=== PATIENT | male | born 1965 | race Caucasian/White ===

== ENCOUNTER 2016-07-02 22:16 | Emergency (ER) | payer BC, MEDICARE ==
[2016-07-02 22:23] VITALS: RESP 18
--- NOTE | 2016-07-02 23:12 | ED ---
General Adult HPI - General Chief complaint: Extremity Problem,Nontraumatic Stated complaint: Post surgical arm bleed Time Seen by Provider: 07/02/16 22:40 Source: patient Mode of arrival: ambulatory Limitations: no limitations - History of Present Illness Initial comments: Patient is a pleasant 51-year-old male presenting to the emergency Department with bleeding. Patient had a recent cellulitis. Patient had recurrent abscess and went to orthopedics today. Patient had surgical excision of the region. Patient has had bleeding today. Surgeon was Dr. Contreras. Patient has noticed bleeding coming from his arm bandage. Otherwise no increase in pain. No fevers. - Related Data Home Medications Medication Instructions Recorded Confirmed Furosemide [Lasix] 20 mg PO DAILY PRN 06/23/13 07/02/16 Losartan/Hydrochlorothiazide 1 tab PO DAILY 06/23/13 07/02/16 [Losartan-Hctz 100-25 mg Tab] Metoprolol Tartrate [Lopressor] 100 mg PO BID 06/23/13 07/02/16 cloNIDine HCL [Catapres] 0.1 mg PO BID 06/23/13 07/02/16 metFORMIN HCL [Glucophage] 1,000 mg PO BID 06/23/13 07/02/16 Atorvastatin [Lipitor] 80 mg PO HS 08/14/14 07/02/16 Insulin Aspart [NovoLOG] 8 - 10 units SQ BID@0800,1200 08/14/14 07/02/16 Insulin Glargine [Lantus] 27 unit SQ HS 08/14/14 07/02/16 Insulin Aspart [NovoLOG] 15 units SQ AC-SUPPER 08/17/14 07/02/16 Insulin Aspart [NovoLOG] See Protocol SQ AC-TID 08/17/14 07/02/16 Nitroglycerin Sl Tabs [Nitrostat] 0.4 mg SUBLINGUAL Q5M PRN 09/07/14 07/02/16 Aspirin 325 mg PO DAILY 07/02/16 07/02/16 Ergocalciferol [Vitamin D2] 50,000 unit PO Q14D 07/02/16 07/02/16 Previous Rx's Medication Instructions Recorded Clopidogrel [Plavix] 75 mg PO DAILY #30 tab 06/25/13 Allergies Allergy/AdvReac Type Severity Reaction Status Date / Time vancomycin Allergy Rash/Hives Verified 05/11/17 23:17 Review of Systems ROS Statement: Those systems with pertinent positive or pertinent negative responses have been documented in the HPI. ROS Other: All systems not noted in ROS Statement are negative. Constitutional: Denies: fever Eyes: Denies: eye pain ENT: Denies: ear pain Respiratory: Denies: cough Cardiovascular: Denies: chest pain Endocrine: Denies: fatigue Gastrointestinal: Denies: abdominal pain Genitourinary: Denies: dysuria Musculoskeletal: Denies: back pain Skin: Denies: rash Neurological: Denies: headache Past Medical History Past Medical History: Asthma, Coronary Artery Disease (CAD), Chest Pain / Angina , Diabetes Mellitus, Deep Vein Thrombosis (DVT), Hyperlipidemia, Hypertension, Myocardial Infarction ([place]), Sleep Apnea/CPAP/BIPAP Additional Past Medical History / Comment(s): Bipap at 17, IDDM type II, DVT L leg, cellulitis L leg 2012, back pain. Last Myocardial Infarction Date:: 06/23/13 History of Any Multi-Drug Resistant Organisms: MRSA Date of last positivie culture/infection: 08/2014 MDRO Source:: abdomin around naval Past Surgical History: Back Surgery, Coronary Bypass/CABG, Heart Catheterization , Heart Catheterization With Stent, Hernia Repair Additional Past Surgical History / Comment(s): 08/28/15 PCI with stent to ramus. Other surgical hx: Spinal fusion L4-L5, fasciotomy left thigh,CABG 2007- 6 VESSELS, PCI with 3 previous stents, bilateral inguinal hernia repairs. Past Anesthesia/Blood Transfusion Reactions: No Reported Reaction Date of Last Stent Placement:: 08/28/15 Past Psychological History: No Psychological Hx Reported Additional Psychological History / Comment(s): Pt is independent. He is currently living with his parents. Smoking Status: Never smoker Past Alcohol Use History: None Reported Past Drug Use History: None Reported - Past Family History Mother Family Medical History: Diabetes Mellitus Additional Family Medical History / Comment(s): Mother is 83 yrs old. Father Family Medical History: Coronary Artery Disease (CAD), Myocardial Infarction ([place] ) Additional Family Medical History / Comment(s): Father of a [place] at the age of 60 yrs. General Exam Limitations: no limitations General appearance: alert, in no apparent distress Head exam: Present: atraumatic Eye exam: Present: normal appearance, PERRL ENT exam: Present: normal oropharynx Neck exam: Present: normal inspection Respiratory exam: Present: normal lung sounds bilaterally Cardiovascular Exam: Present: regular rate, normal rhythm GI/Abdominal exam: Present: soft. Absent: tenderness Extremities exam: Present: other (Left arm with horizontal incision that is somewhat open in the midline. There is active bleeding. Bandage has been bloodsoaked.) Neurological exam: Present: alert Psychiatric exam: Present: normal affect, normal mood Skin exam: Absent: rash Course Vital Signs 07/02/16 22:19 Temperature 98.0 F Pulse Rate 68 Respiratory 18 Rate Blood Pressure 190/98 O2 Sat by Pulse 98 Oximetry - Reevaluation(s) Reevaluation #1: 07/02/16 23:34 Still no bleeding. Patient does have follow-up appointment tomorrow. Patient advised to return bleeding returns. Procedures - Laceration Laceration #1 Consent Obtained: verbal consent Time Out Performed: Yes Indication: other ((Postsurgical wound with active bleeding) Size (cm): 4 Description: linear Depth: simple, single layer Anesthetic Used: lidocaine 1% Anesthesia Technique: local infiltration Pre-repair: wound explored (Area cleansed with Betadine) Type of Sutures: nylon Size of Sutures: 5-0 Number of Sutures: 3 Technique: simple, interrupted Patient Tolerated Procedure: well, no complications, other (Bleeding has decreased to a minimal ooze. Area was bandaged.) Disposition Clinical Impression: Postoperative bleeding from incision Disposition: HOME SELF-CARE Condition: Stable Instructions: Postoperative Bleeding (ED) Additional Instructions: Please follow-up with Dr. Contreras first thing in the morning tomorrow. Return for bleeding, weakness or lightheadedness, increased pain, hand problems, worsening symptoms or other concerns. Referrals: Kelly Montesinos MD [Primary Care Provider] - 1-2 days Yobani Contreras DO [Doctor of Osteopathic Medicine] - 1-2 days Time of Disposition: 23:35
[2016-07-02 23:48] VITALS: BP 144/75; PULSE 88; TEMP 97
== END 2016-07-02 23:47 | disposition home or self-care (01) ==
LOC: EC 22:16
DX: M96.831 Postprocedural hemorrhage of a musculoskeletal structure following other procedure (principal); E78.5 Hyperlipidemia, unspecified; I10 Essential (primary) hypertension; E11.9 Type 2 diabetes mellitus without complications; I25.2 Old myocardial infarction; Z79.4 Long term (current) use of insulin; Z79.82 Long term (current) use of aspirin; Z79.84 Long term (current) use of oral hypoglycemic drugs; Z79.899 Other long term (current) drug therapy; Z88.1 Allergy status to other antibiotic agents; Z87.39 Personal history of other diseases of the musculoskeletal system and connective tissue; Z86.79 Personal history of other diseases of the circulatory system; Y83.8 Other surgical procedures as the cause of abnormal reaction of the patient, or of later complication, without mention of misadventure at the time of the procedure
CPT/HCPCS: 12002; 99282

== ENCOUNTER 2016-07-03 04:53 | Inpatient (IN) | payer MEDICARE ==
--- NOTE | 2016-07-03 05:40 | ED ---
General Adult HPI - General Chief complaint: Skin/Abscess/Foreign Body Stated complaint: post surgery bleeding Time Seen by Provider: 07/03/16 05:10 Source: patient, RN notes reviewed Mode of arrival: ambulatory Limitations: no limitations - History of Present Illness Initial comments: Patient is a pleasant 51-year-old male returning to the emergency department complaining of some continued bleeding and pain of his left distal forearm. Patient did have a recent infection. Patient yesterday had surgical procedure done by Dr. Yobani doherty. This was secondary to continued abscess. Patient had removal of what sounds to be a cystlike structure. Patient came to the emergency department last night for bleeding. Patient did have 3 sutures placed with hemostasis. Patient has had increase discomfort since that time. Patient states it is hard to open his hand. Patient does admit to having some paresthesias. Patient states the discomfort is radiating up the forearm past the elbow. - Related Data Home Medications Medication Instructions Recorded Confirmed Furosemide [Lasix] 20 mg PO DAILY PRN 06/23/13 07/03/16 Losartan/Hydrochlorothiazide 1 tab PO DAILY 06/23/13 07/03/16 [Losartan-Hctz 100-25 mg Tab] Metoprolol Tartrate [Lopressor] 100 mg PO BID 06/23/13 07/03/16 cloNIDine HCL [Catapres] 0.1 mg PO BID 06/23/13 07/03/16 metFORMIN HCL [Glucophage] 1,000 mg PO BID 06/23/13 07/03/16 Atorvastatin [Lipitor] 80 mg PO HS 08/14/14 07/03/16 Insulin Aspart [NovoLOG] 8 - 10 units SQ BID@0800,1200 08/14/14 07/03/16 Insulin Glargine [Lantus] 27 unit SQ HS 08/14/14 07/03/16 Insulin Aspart [NovoLOG] 15 units SQ AC-SUPPER 08/17/14 07/03/16 Insulin Aspart [NovoLOG] See Protocol SQ AC-TID 08/17/14 07/03/16 Nitroglycerin Sl Tabs [Nitrostat] 0.4 mg SUBLINGUAL Q5M PRN 09/07/14 07/03/16 Aspirin 325 mg PO DAILY 07/02/16 07/03/16 Ergocalciferol [Vitamin D2] 50,000 unit PO Q14D 07/02/16 07/03/16 Previous Rx's Medication Instructions Recorded Clopidogrel [Plavix] 75 mg PO DAILY #30 tab 06/25/13 Allergies Allergy/AdvReac Type Severity Reaction Status Date / Time vancomycin Allergy Rash/Hives Verified 07/03/16 04:58 Review of Systems ROS Statement: Those systems with pertinent positive or pertinent negative responses have been documented in the HPI. ROS Other: All systems not noted in ROS Statement are negative. Constitutional: Denies: fever Eyes: Denies: eye pain ENT: Denies: ear pain Respiratory: Denies: cough Cardiovascular: Denies: chest pain Endocrine: Denies: fatigue Gastrointestinal: Denies: abdominal pain Genitourinary: Denies: dysuria Musculoskeletal: Denies: back pain Skin: Denies: rash Neurological: Denies: weakness Past Medical History Past Medical History: Asthma, Coronary Artery Disease (CAD), Chest Pain / Angina , Diabetes Mellitus, Deep Vein Thrombosis (DVT), Hyperlipidemia, Hypertension, Myocardial Infarction ([place]), Sleep Apnea/CPAP/BIPAP Additional Past Medical History / Comment(s): Bipap at 17, IDDM type II, DVT L leg, cellulitis L leg 2012, back pain. Last Myocardial Infarction Date:: 06/23/13 History of Any Multi-Drug Resistant Organisms: MRSA Date of last positivie culture/infection: 08/2014 MDRO Source:: abdomin around naval Past Surgical History: Back Surgery, Coronary Bypass/CABG, Heart Catheterization , Heart Catheterization With Stent, Hernia Repair Additional Past Surgical History / Comment(s): 08/28/15 PCI with stent to ramus. Other surgical hx: Spinal fusion L4-L5, fasciotomy left thigh,CABG 2007- [facility]SE[facility], PCI with 3 previous stents, bilateral inguinal hernia repairs. Past Anesthesia/Blood Transfusion Reactions: No Reported Reaction Date of Last Stent Placement:: 08/28/15 Past Psychological History: No Psychological Hx Reported Additional Psychological History / Comment(s): Pt is independent. He is currently living with his parents. Smoking Status: Never smoker Past Alcohol Use History: None Reported Past Drug Use History: None Reported - Past Family History Mother Family Medical History: Diabetes Mellitus Additional Family Medical History / Comment(s): Mother is 83 yrs old. Father Family Medical History: Coronary Artery Disease (CAD), Myocardial Infarction ([place] ) Additional Family Medical History / Comment(s): Father of a [place] at the age of 60 yrs. General Exam Limitations: no limitations General appearance: alert Head exam: Present: atraumatic Eye exam: Present: normal appearance, PERRL ENT exam: Present: normal oropharynx Neck exam: Present: normal inspection Respiratory exam: Present: normal lung sounds bilaterally Cardiovascular Exam: Present: regular rate, normal rhythm, other (Difficult to palpate left radial pulse secondary to swelling) GI/Abdominal exam: Present: soft. Absent: tenderness Extremities exam: Present: other (Left distal forearm with horizontal incision, approximately 4 cm. Sutures are in place with minimal oozing. There is also a vertical incision with trace amount of oozing. Pain with extension. Difficulty opening the hand/extension of fingers. Sensation is intact. No pallor. There is some swelling over the surgical site that is increased from previous evaluation.) Neurological exam: Present: alert Psychiatric exam: Present: normal affect, normal mood Skin exam: Present: other (Incisions as described above. In addition left forearm also has a well-healed incision from previous vessel harvesting.). Absent: rash, pallor Course Vital Signs 07/03/16 04:56 Temperature 98.0 F Pulse Rate 69 Respiratory 18 Rate Blood Pressure 214/100 O2 Sat by Pulse 98 Oximetry - Reevaluation(s) Reevaluation #1: 07/03/16 05:36 Orthopedics has been paged. Concern is present for symptoms that could be related to early compartment syndrome that were not previously present. Patient now has paresthesias and pain and tenseness of the surgical site. There is no pallor. Sensation is intact. No weakness. 07/03/16 05:40 3 sutures placed earlier were removed. 07/03/16 05:43 Case was discussed in detail with Dr. Shaver who will come evaluate the patient. Patient updated. 07/03/16 06:29 Patient was seen by Dr. Shaver who will take patient to the OR. Medical Decision Making - Lab Data Result diagrams: 07/03/16 05:55 07/03/16 05:55 Lab Results 07/03/16 07/03/16 07/03/16 Range/Units 05:55 05:55 05:55 WBC 5.9 (3.8-10.6) k/uL RBC 4.84 (4.30-5.90) m/uL Hgb 13.7 (13.0-17.5) gm/dL Hct 39.5 (39.0-53.0) % MCV 81.6 (80.0-100.0) fL MCH 28.4 (25.0-35.0) pg MCHC 34.8 (31.0-37.0) g/dL RDW 13.5 (11.5-15.5) % Plt Count 198 (150-450) k/uL Neutrophils % 65 % Lymphocytes % 19 % Monocytes % 10 % Eosinophils % 4 % Basophils % 1 % Neutrophils # 3.8 (1.3-7.7) k/uL Lymphocytes # 1.1 (1.0-4.8) k/uL Monocytes # 0.6 (0-1.0) k/uL Eosinophils # 0.2 (0-0.7) k/uL Basophils # 0.0 (0-0.2) k/uL PT 10.5 (9.0-12.0) sec INR 1.0 (<1.1) APTT 21.0 L (22.0-30.0) sec Sodium 138 (137-145) mmol/L Potassium 3.9 (3.5-5.1) mmol/L Chloride 99 (98-107) mmol/L Carbon Dioxide 27 (22-30) mmol/L Anion Gap 12 mmol/L BUN 18 (9-20) mg/dL Creatinine 0.88 (0.66-1.25) mg/dL Est GFR (MDRD) Af Amer >60 (>60 ml/min/1.73 sqM) Est GFR (MDRD) Non-Af >60 (>60 ml/min/1.73 sqM) Glucose 335 H (74-99) mg/dL Calcium 9.2 (8.4-10.2) mg/dL Total Bilirubin 0.6 (0.2-1.3) mg/dL AST 24 (17-59) U/L ALT 53 (21-72) U/L Alkaline Phosphatase 85 (38-126) U/L Total Protein 6.5 (6.3-8.2) g/dL Albumin 3.9 (3.5-5.0) g/dL Critical Care Time Critical Care Time: Yes Total Critical Care Time: 31 Disposition Clinical Impression: Postoperative compartment syndrome Disposition: ADMITTED IP TO THIS HOSP Condition: Serious Time of Disposition: 06:31
[2016-07-03] MEDS ORDERED: MORPHINE SULFATE 4 MG/ML SYRINGE IV STA (05:43)
[2016-07-03 06:00] LABS: Basophils % (A) 1 %; CH 29.7; CHCM 36.6; Eosinophils # (A) 0.2 k/uL (0-0.7); Eosinophils % (A) 4 %; HCT 39.5 % (39.0-53.0); HDW 3.21; HGB 13.7 gm/dL (13.0-17.5); Luc # (Auto) 0.12; Luc % (Auto) 2; Lymphocytes # (A) 1.1 k/uL (1.0-4.8); Lymphocytes % (A) 19 %; MCH 28.4 pg (25.0-35.0); MCHC 34.8 g/dL (31.0-37.0); MCV 81.6 fL (80.0-100.0); Mean Platelet Volume 7.6; Monocytes # (A) 0.6 k/uL (0-1.0); Monocytes % (A) 10 %; Neutrophils # (A) 3.8 k/uL (1.3-7.7); Neutrophils % (A) 65 %; RBC 4.84 m/uL (4.30-5.90); RDW 13.5 % (11.5-15.5); WBC 5.9 k/uL (3.8-10.6); WBC (Perox) 5.67
[2016-07-03 06:10] LABS: Prothrombin Time 10.5 sec (9.0-12.0)
[2016-07-03 06:12] LABS: ALT 53 U/L (21-72); AST 24 U/L (17-59); Alkaline Phosphatase 85 U/L (38-126); Anion Gap 12 mmol/L; Blood Urea Nitrogen 18 mg/dL (9-20); Calcium 9.2 mg/dL (8.4-10.2); Carbon Dioxide 27 mmol/L (22-30); Chloride 99 mmol/L (98-107); Glucose 335 mg/dL (74-99); Non-African American GFR(MDRD) >60 (>60 ml/min/1.73 sqM); Potassium 3.9 mmol/L (3.5-5.1); Sodium 138 mmol/L (137-145); Total Bilirubin 0.6 mg/dL (0.2-1.3); Total Protein 6.5 g/dL (6.3-8.2)
--- NOTE | 2016-07-03 06:43 | P.HPOR ---
History of Present Illness H&P Date: 07/03/16 The patient is a 51-year-old male with multiple medical problems including diabetes and coronary artery disease who presents to the ER with severe, excruciating pain in his left forearm. The patient has been having problems with his arm for the last week or so. He was initially managed at [facility] and was transferred to see my hand partner Dr. Maksim Contreras ultimately performed an incision and drainage of a left volar forearm abscess yesterday. The patient presented to the emergency department last night with bleeding from his forearm. Emergency department provided local wound care and placed several stitches into the forearm. The patient went home but had increasing pain, swelling and difficulty moving his fingers so presented to the ER again this morning. At the time of my evaluation is complaining of 10 out of 10 pain. He says any movement of his fingers causes pain. He is right-hand dominant. He denies smoking or alcohol use. Note the patient has had compartment syndrome in his leg and has had prior fasciotomies performed of his leg. Past Medical History Past Medical History: Asthma, Coronary Artery Disease (CAD), Chest Pain / Angina , Diabetes Mellitus, Deep Vein Thrombosis (DVT), Hyperlipidemia, Hypertension, Myocardial Infarction ([place]), Sleep Apnea/CPAP/BIPAP Additional Past Medical History / Comment(s): Bipap at 17, IDDM type II, DVT L leg, cellulitis L leg 2012, back pain. Last Myocardial Infarction Date:: 06/23/13 History of Any Multi-Drug Resistant Organisms: MRSA Date of last positivie culture/infection: 08/2014 MDRO Source:: abdomin around naval Past Surgical History: Back Surgery, Coronary Bypass/CABG, Heart Catheterization , Heart Catheterization With Stent, Hernia Repair Additional Past Surgical History / Comment(s): 08/28/15 PCI with stent to ramus. Other surgical hx: Spinal fusion L4-L5, fasciotomy left thigh,CABG 2007- [facility]ESSELS, PCI with 3 previous stents, bilateral inguinal hernia repairs. Past Anesthesia/Blood Transfusion Reactions: No Reported Reaction Date of Last Stent Placement:: 08/28/15 Past Psychological History: No Psychological Hx Reported Additional Psychological History / Comment(s): Pt is independent. He is currently living with his parents. Smoking Status: Never smoker Past Alcohol Use History: None Reported Past Drug Use History: None Reported - Past Family History Mother Family Medical History: Diabetes Mellitus Additional Family Medical History / Comment(s): Mother is 83 yrs old. Father Family Medical History: Coronary Artery Disease (CAD), Myocardial Infarction ([place] ) Additional Family Medical History / Comment(s): Father of a [place] at the age of 60 yrs. Medications and Allergies Home Medications Medication Instructions Recorded Confirmed Type Furosemide [Lasix] 20 mg PO DAILY PRN 06/23/13 07/03/16 History Losartan/Hydrochlorothiazide 1 tab PO DAILY 06/23/13 07/03/16 History [Losartan-Hctz 100-25 mg Tab] Metoprolol Tartrate [Lopressor] 100 mg PO BID 06/23/13 07/03/16 History cloNIDine HCL [Catapres] 0.1 mg PO BID 06/23/13 07/03/16 History metFORMIN HCL [Glucophage] 1,000 mg PO BID 06/23/13 07/03/16 History Atorvastatin [Lipitor] 80 mg PO HS 08/14/14 07/03/16 History Insulin Aspart [NovoLOG] 8 - 10 units SQ BID@0800,1200 08/14/14 07/03/16 History Insulin Glargine [Lantus] 27 unit SQ HS 08/14/14 07/03/16 History Insulin Aspart [NovoLOG] 15 units SQ AC-SUPPER 08/17/14 07/03/16 History Insulin Aspart [NovoLOG] See Protocol SQ AC-TID 08/17/14 07/03/16 History Nitroglycerin Sl Tabs [Nitrostat] 0.4 mg SUBLINGUAL Q5M PRN 09/07/14 07/03/16 History Aspirin 325 mg PO DAILY 07/02/16 07/03/16 History Ergocalciferol [Vitamin D2] 50,000 unit PO Q14D 07/02/16 07/03/16 History Allergies Allergy/AdvReac Type Severity Reaction Status Date / Time vancomycin Allergy Rash/Hives Verified 07/03/16 04:58 Physical Examination On exam the patient is in severe distress secondary to pain. His head is normocephalic and atraumatic. He demonstrates slightly labored breathing secondary to pain. A focused examination of the patient's left forearm was conducted. On inspection of the patient's left arm his forearm is swollen and he holds his fingers in a position of slight flexion. There is a healed scar from a prior vein graft over the volar aspect of his forearm, distally there is a T-shaped incision with several nylon sutures in place over the distal forearm. The longitudinal limb of the incision was made over the patient's prior vein graft scar. There is pain with passive range of motion of the fingers. The patient's volar forearm is firm and hard to the touch. The dorsal forearm and mobile wad are soft. There is decreased sensation to touch in the distribution of the median nerve. Sensation is intact to light touch in the distribution of the ulnar nerve and radial nerve. The fingers have brisk capillary refill. While the patient was still in the emergency department I removed several of the nylon stitches. Immediately upon removing the nylon stitches muscle herniated through the wound and a large clot was expelled from the wound and due to the pressure build up went fci across the room. Results - Labs Labs: Abnormal Lab Results - Last 24 Hours (Table) 07/03/16 07/03/16 Range/Units 05:55 05:55 APTT 21.0 L (22.0-30.0) sec Glucose 335 H (74-99) mg/dL H & H 07/03/16 Range/Units 05:55 Hgb 13.7 (13.0-17.5) gm/dL Hct 39.5 (39.0-53.0) % Coagulation 07/03/16 Range/Units 05:55 INR 1.0 (<1.1) Result Diagrams: 07/03/16 05:55 07/03/16 05:55 Assessment and Plan (1) Postoperative compartment syndrome Status: Acute (2) Postoperative bleeding from incision Status: Acute Plan: Clinically the patient has signs and symptoms of a compartment syndrome in his left forearm. He is in excruciating pain after procedure yesterday. His forearm is firm and hard. He has pain with any attempted range of motion of his fingers. My recommendation was to perform a fasciotomy and exploration of his wound. I discussed with the patient his risk for having a complication which is higher because of his multiple medical problems. Discussed discussed include but are not limited to risk of anesthesia, risk of delayed wound healing , risk of damage to blood vessels or nerves, risk of chronic infection, risk of chronic pain, risk of limited use of left arm or hand, and possibly loss of limb. The patient voiced his understanding of this. We also discussed the possibility of a vascular injury with bleeding into his forearm from his prior vein graft harvest. He understands the possible consequences of a having a vascular injury. If there is a vascular injury I will consult vascular surgery. I will perform a fasciotomy of the patient's forearm and then defer to my hand partner Dr. Maksim Contreras for definitive treatment. We will take the patient to the waiting room for emergent fasciotomy and decompression of his volar forearm.
[2016-07-03 07:01] LABS: Glucose,Whole Blood 283 mg/dL (75-99)
[2016-07-03] MEDS ORDERED: IV FLUID CONTINUATION 900 ML IV ONE (07:04)
[2016-07-03] MEDS ORDERED: fentaNYL (PF) 50 MCG/ML 2 ML AMP ONE (07:28)
[2016-07-03] MEDS ORDERED: MIDAZOLAM 2 MG/2 ML VIAL ONE (07:28)
[2016-07-03] MEDS ORDERED: HYDROmorphone (PF) 1 MG/ML ONE (07:28)
[2016-07-03] MEDS ORDERED: ePHEDrine 50 MG/ML 1 ML AMP ONE (07:28)
[2016-07-03] MEDS ORDERED: SUCCINYLCHOLINE CHLORIDE 100 MG/5 ML SYR IV ONE (07:28)
[2016-07-03] MEDS ORDERED: PROPOFOL 10 MG/ML 20 ML VIAL IV ONE (07:28)
[2016-07-03] MEDS ORDERED: LIDOCAINE 1% INJ 10MG/ML (20 ML MDV) ONE (07:28)
--- NOTE | 2016-07-03 08:38 | P.OP ---
Date of Procedure: 07/03/16 Preoperative Diagnosis: 1. Left volar forearm compartment syndrome 2. Diabetes Mellitus type 2 3. Coronary artery disease 4. Prior left volar forearm vein harvest Postoperative Diagnosis: Same Procedure(s) Performed: 1. Left volar forearm compartment fasciotomy 2. Application of vacuum assisted closure device left forearm (wound VAC) Anesthesia: CHERIE Surgeon: Lakhwinder Shaver Machine Umbrella Tipper #1: Chester Montano Estimated Blood Loss (ml): 50 IV fluids (ml): 800 Pathology: none sent Condition: stable Disposition: PACU Indications for Procedure: A shunt is a 51-year-old male with multiple medical problems including diabetes , coronary artery disease prior heart stents currently on Plavix who is been having problems with his left forearm for the last several weeks. The patient was initially managed at [facility]. He was transferred to my partner Dr. Maksim Contreras who performed incision and drainage of a left volar forearm abscess yesterday. He was discharged home as an outpatient. The patient presented to the ER last night with significant bleeding from his left forearm. The emergency department physician closed the wound and sent the patient home without calling our office. The patient returned to the ER this morning with significantly increased pain and swelling in his volar forearm. I was on-call and consulted by the ER. On my exam in the emergency department the patient had tense volar forearm compartments about the distal forearm. He had pain out of proportion. He had pain with passive range of motion of his fingers. The sutures were removed and a large amount of blood clot and muscle herniated to the wound. Clinically the patient had findings concerning for compartment syndrome so I brought the patient urgently to the operating room for a volar forearm compartment fasciotomy. We discussed the potential risks and complication of surgery including but not limited to risk of anesthesia, risk of superficial infection, risk of deep infection, risk of delayed wound healing , risk of damage to underlying blood vessels or nerves, risk of chronic pain, risk of chronic swelling, risk of difficulty using the hand, risk of need for further surgery, and possibly loss of his limb. The patient voiced his understanding of these complications and understands that he is at a higher risk of having a Location due to his multiple medical problems. Operative Findings: There was a large hematoma within the volar compartment of the distal forearm. Upon evacuation of the hematoma the deep fascia was released and all the muscle compartments in the volar forearm, dorsal forearm, and hand appeared soft. Description of Procedure: A she was identified in preoperative holding and the correct left arm was marked with my initials. I again reviewed the consent form with the patient and answered all of his questions. He was brought back to the operating room. A general anesthetic was administered by anesthesia. His arm was placed on a arm table. A tourniquet was applied to the proximal aspect of the left arm but not inflated throughout the whole case. Due to the patient previously having vascular procedures on his forearm I consulted Dr. Montano intraoperatively. Prior to the patient's arm Dr. Montano was able to obtain Doppler signals for both the radial and ulnar artery. He had low concern for vascular injury. The patient's left arm was then prepped and draped in the standard sterile fashion. Prior to starting surgery timeout was performed identifying the correct patient, operative extremity, and procedure. I outlined the prior scar over the volar forearm with a marking pen on the volar wrist crease to the elbow. A skin incision was made over the previously made volar scar with a 15 blade scalpel and dissection was carried down carefully through the subcutaneous tissue. Immediately upon cutting through the superficial fascia a large hematoma was evacuated. The deep fascia was then identified and incised longitudinally in line with the skin incision. Immediately upon releasing the deep fascia the deep musculature herniated through the fasciotomy. All constricting bands of fascia were released distally and proximally. The median nerve was identified and was in continuity. After completely releasing the volar fascia there were no areas of constriction. On exam the volar forearm, dorsal forearm, mobile wad and hand compartments were all soft. There was no obvious bleeding vessels. Dr. Montano who had been present up to this point agreed that there was no major vascular injury and that an adequate fasciotomy had been performed. The wound was then copiously irrigated with 1 L of sterile saline. A VAC dressing sponge was cut over the wound. A sterile rubber band was used to bring the skin edges together over the VAC sponge in a Byron sandal type configuration. Strips of Ioban were placed around the incision and then over the VAC. The wound VAC was then attached and suction was set up. There were no leaks. The forearm again felt very soft before leaving the OR. The drapes were taken down and a dressing consisting of loosely applied web roll and an Del wrap was applied. The patient was extubated and brought to PACU in stable condition. PLAN: She will be admitted for observation. He will need repeat I&D and closure of his wound in the next 1-2 days.
[2016-07-03] MEDS ORDERED: HYDROmorphone 1 MG/ML 1 ML SYRINGE IVP ONE ×3 (08:47→09:09)
[2016-07-03] MEDS ORDERED: TEMAZEPAM 15 MG CAP PO PRN (08:50)
[2016-07-03] MEDS ORDERED: HYDROcodone/APAP 5-325MG 1 EACH TAB PO PRN (08:50)
[2016-07-03] MEDS ORDERED: diphenhydrAMINE 25 MG CAP PO PRN (08:50)
[2016-07-03] MEDS ORDERED: HYDROmorphone 1 MG/ML 1 ML SYRINGE IVP PRN ×2 (08:50)
[2016-07-03] MEDS ORDERED: hydrOXYzine PAMOATE 25 MG CAP PO PRN (08:50)
[2016-07-03 08:54] LABS: Glucose,Whole Blood 251 mg/dL (75-99)
[2016-07-03] MEDS ORDERED: LACTATED RINGERS 1,000 ML IV ONE (09:33)
[2016-07-03] MEDS ORDERED: IV VANCOMYCIN PER PHARMACY 1 EACH MISC MISCELLANE PRN (10:41)
[2016-07-03] MEDS ORDERED: FUROSEMIDE 20 MG TAB PO PRN (11:16)
[2016-07-03] MEDS ORDERED: NITROGLYCERIN SL TABS 0.4 MG TAB SUBLINGUAL PRN (11:16)
[2016-07-03] MEDS: LACTATED RINGERS 1,000 ML IV SCH ×2 (11:24→19:00)
[2016-07-03 11:48] LABS: Glucose,Whole Blood 249 mg/dL (75-99)
[2016-07-03] MEDS: METOPROLOL TARTRATE 50 MG TAB PO SCH ×2 (12:00→21:28)
[2016-07-03] MEDS: CLOPIDOGREL 75 MG TAB PO SCH (12:00)
[2016-07-03] MEDS: metFORMIN 500 MG TAB PO SCH ×2 (12:00→18:05)
[2016-07-03] MEDS: LOSARTAN-HCTZ 50-12.5 MG 1 EACH TAB PO SCH (12:00)
[2016-07-03] MEDS: ASPIRIN 325 MG TAB PO SCH (12:00)
[2016-07-03] MEDS: cloNIDine HCL 0.1 MG TAB PO SCH ×2 (12:00→21:28)
[2016-07-03] MEDS: INSULIN LISPRO (humaLOG) 300 UNIT/3 ML VIAL SQ SCH ×4 (12:35→21:29)
--- NOTE | 2016-07-03 12:57 | P.CONS ---
History of Present Illness - Reason for Consult Consult date: 07/03/16 Medical management - History of Present Illness This is a 51-year-old patient of Dr. Montesinos with past medical history for coronary artery disease status post 6 vessel CABG in 2006 with MAE to LAD, saphenous venous graft to the PDA, saphenous venous graft to the obtuse marginal one, radial artery to the obtuse marginal branch 2 and saphenous venous graft to the obtuse marginal 3 followed by heart catheterization with PCI and stent of the saphenous venous graft to the RCA in 2015 at which time he presented with non-ST elevated myocardial infarction. History of diabetes mellitus2 with diabetic polyneuropathy, hyperlipidemia, hypertension, hypertensive cardiovascular disease with left ventricular hypertrophy, asthma, sleep apnea on CPAP, chronic low back pain, chronic kidney disease, DVT in the past. Patient had injury to his left wrist area was not sure what actually happened to it. He went to Dr. Montesinos's office and saw the nurse practitioner and he was sent to [facility] for evaluation and IV antibiotics. Patient underwent I&D in the emergency center and was then sent to Dr. Maksim Contreras. He underwent an incision and drainage of the left volar forearm abscess on July 02. During the night, patient states he was bleeding significantly and blood through his stress seen and came to [facility] emergency center for evaluation. The emergency department did local wound care and put several stitches in the forearm but the patient went home and developed increasing pain swelling and could not move his fingers and came back to the emergency center in the morning. His pain was a 10 out of 10. He had difficulty moving his fingers. He was diagnosed with post compartment syndrome and was taken to the OR by Dr. Shaver for a left volar forearm compartment fasciotomy and wound VAC was placed. Patient is now on the MedSurg floor and pain is currently controlled. Wound culture from [facility] was positive for MSSA. Consult placed with Dr. Jeffrey for antibiotic management. Review of Systems All systems: negative Constitutional: Denies chills, Denies fever Eyes: denies blurred vision, denies pain Ears, nose, mouth and throat: Denies headache, Denies sore throat Cardiovascular: Denies chest pain, Denies shortness of breath Respiratory: Denies cough Gastrointestinal: Denies abdominal pain, Denies diarrhea, Denies nausea, Denies vomiting Musculoskeletal: Denies myalgias Musculoskeletal: left: hand pain, hand stiffness, hand swelling Integumentary: Denies pruritus, Denies rash Neurological: Denies numbness, Denies weakness Psychiatric: Denies anxiety, Denies depression Endocrine: Denies fatigue, Denies weight change Past Medical History Past Medical History: Asthma, Coronary Artery Disease (CAD), Chest Pain / Angina , Diabetes Mellitus, Deep Vein Thrombosis (DVT), Hyperlipidemia, Hypertension, Myocardial Infarction ([place]), Sleep Apnea/CPAP/BIPAP Additional Past Medical History / Comment(s): Obstructive sleep apnea CPAP, IDDM type II, DVT L leg, cellulitis L leg 2012, back pain. Hypertension, hypertensive cardiovascular disease with left ventricular hypertrophy, chronic low back pain, diabetic polyneuropathy, chronic kidney disease Last Myocardial Infarction Date:: 06/23/13 History of Any Multi-Drug Resistant Organisms: MRSA Year Discovered:: 08/2014 MDRO Source:: abdomin around naval Past Surgical History: Back Surgery, Coronary Bypass/CABG, Heart Catheterization , Heart Catheterization With Stent, Hernia Repair Additional Past Surgical History / Comment(s): 08/28/15 PCI with stent to ramus. Other surgical hx: Spinal fusion L4-L5, fasciotomy left thigh,CABG 2007- VESSELS, PCI with 3 previous stents, bilateral inguinal hernia repairs. Past Anesthesia/Blood Transfusion Reactions: No Reported Reaction Date of Last Stent Placement:: 08/28/15 Past Psychological History: No Psychological Hx Reported Additional Psychological History / Comment(s): Pt is independent. He is currently living with his parents. Smoking Status: Never smoker Past Alcohol Use History: None Reported Additional Past Alcohol Use History / Comment(s): Vision states he is a lifelong nonsmoker. He denies any medical marijuana, marijuana, street drug use. He is and lives with a roommate. He is on disability due to his diabetes and coronary artery disease. He has one son with no major medical problems. Past Drug Use History: None Reported - Past Family History Mother Family Medical History: Diabetes Mellitus Additional Family Medical History / Comment(s): Mother at the age of 84 from with history of chronic renal disease stage IV and congestive heart failure. Father Family Medical History: Coronary Artery Disease (CAD), Myocardial Infarction ([place] ) Additional Family Medical History / Comment(s): Father of a [place] at the age of 60 yrs with history of COPD. Brother(s) Additional Family Medical History / Comment(s): Patient has 1 brother and 1 sister with no major medical problems. Medications and Allergies Home Medications Medication Instructions Recorded Confirmed Type Furosemide [Lasix] 20 mg PO DAILY PRN 06/23/13 07/03/16 History Losartan/Hydrochlorothiazide 1 tab PO DAILY 06/23/13 07/03/16 History [Losartan-Hctz 100-25 mg Tab] Metoprolol Tartrate [Lopressor] 100 mg PO BID 06/23/13 07/03/16 History cloNIDine HCL [Catapres] 0.1 mg PO BID 06/23/13 07/03/16 History metFORMIN HCL [Glucophage] 1,000 mg PO BID 06/23/13 07/03/16 History Atorvastatin [Lipitor] 80 mg PO HS 08/14/14 07/03/16 History Insulin Aspart [NovoLOG] 8 - 10 units SQ BID@0800,1200 08/14/14 07/03/16 History Insulin Glargine [Lantus] 27 unit SQ HS 08/14/14 07/03/16 History Insulin Aspart [NovoLOG] 15 units SQ AC-SUPPER 08/17/14 07/03/16 History Insulin Aspart [NovoLOG] See Protocol SQ AC-TID 08/17/14 07/03/16 History Nitroglycerin Sl Tabs [Nitrostat] 0.4 mg SUBLINGUAL Q5M PRN 09/07/14 07/03/16 History Aspirin 325 mg PO DAILY 07/02/16 07/03/16 History Ergocalciferol [Vitamin D2] 50,000 unit PO Q14D 07/02/16 07/03/16 History Cephalexin [Keflex] 500 mg PO Q6H 07/03/16 07/03/16 History Allergies Allergy/AdvReac Type Severity Reaction Status Date / Time vancomycin Allergy Rash/Hives Verified 07/03/16 06:53 Physical Exam Vitals: Vital Signs Temp Pulse Resp BP Pulse Ox 07/03/16 09:30 65 18 164/88 96 07/03/16 09:15 65 18 148/91 94 L 07/03/16 09:00 66 18 175/103 100 07/03/16 08:45 77 18 174/100 07/03/16 08:30 97.4 F L 71 20 164/98 100 07/03/16 07:01 97 F L 68 16 187/93 95 Intake and Output 07/02/16 07/03/16 07/03/16 22:59 06:59 14:59 Intake Total 60 825 Output Total 50 Balance 60 775 Intake: IV 825 Amount of Fluid Infused ( 60 ml) Output: Estimated Blood Loss 50 Gen: This is a 51-year-old male who is sitting up in bed and appears to be in no acute distress. Left arm is elevated on pillows. HEENT: Head is atraumatic, normocephalic. Pupils equal, round. Sclerae is anicteric. Conjunctiva pink. Mucous membranes of the mouth are somewhat dry. NECK: Supple. No JVD. No lymphadenopathy. No thyromegaly. LUNGS: Clear to auscultation. No wheezes or rhonchi. No intercostal retractions. HEART: Regular rate and rhythm. No murmur. ABDOMEN: Soft. Bowel sounds are present. No masses. No tenderness. EXTREMITIES: No pedal edema. No calf tenderness. Large dressing in place to the left forearm which was not removed. NEUROLOGICAL: Patient is awake, alert and oriented x3. Cranial nerves 2 through 12 are grossly intact. Results CBC & Chem 7: 07/03/16 05:55 07/03/16 05:55 Labs: Abnormal Lab Results - Last 24 Hours (Table) 07/03/16 07/03/16 Range/Units 06:58 08:42 POC Glucose (mg/dL) 283 H 251 H (75-99) mg/dL Assessment and Plan Plan: 1. Left volar forearm compartment syndrome status post patient to il and wound VAC placement under the care of Dr. Shaver. Continue current pain management. Incentive serology to reduce incidence of atelectasis and hospital- acquired pneumonia. DVT prophylaxis and GI prophylaxis. Consult with Dr. Jeffrey. Continue daptomycin. 2. History of coronary artery disease status post coronary artery bypass graft for 6 vessel disease with chronically occluded saphenous venous graft to the obtuse marginal branch and status post PCI of the saphenous graft to the RCA. Continue Plavix 75 mg daily, aspirin 325 mg daily, Lipitor is on hold, continue Lopressor 100 mg twice daily, nitroglycerin as needed. 3. Diabetes mellitus type 2 and diabetic polyneuropathy. Continue Lantus 27 units at bedtime, Humalog 15 units before supper, 8 units with breakfast and lunch. Continue metformin 1000 mg twice daily 4. Hypertension, hypertensive cardiovascular disease. Continue Catapres 0.1 mg twice daily, Lopressor 100 mg twice daily, losartan/hydrochlorothiazide 1 daily. 5. Hyperlipidemia. Lipitor on hold while on daptomycin. 6. Obstructive sleep apnea. Continue CPAP as per home settings. 7. Chronic kidney disease stage II. Patient will be admitted to the hospital for a minimum of 2 night stay. Discharge plan: Return home Impression and plan of care have been directed as dictated by the signing physician. Dipika Mendez nurse practitioner acting as scribe for signing physician. Time with Patient: Greater than 30
[2016-07-03] MEDS ORDERED: DAPTOmycin 500 MG in SODIUM CHLORIDE 0.9% 50 ML IV SCH (13:00)
--- NOTE | 2016-07-03 13:03 | P.CONS ---
History of Present Illness - Reason for Consult Consult date: 07/03/16 Left arm abscess, compartment syndrome, antibiotic recommendations - History of Present Illness This is a 51-year-old male patient. He had injury to his left wrist area was not sure what actually happened to it. He went to Dr. Montesinos's office and saw the nurse practitioner and he was sent to [facility] for evaluation and IV antibiotics. Patient underwent I&D in the emergency center and was then sent to Dr. Maksim Contreras. He underwent an incision and drainage of the left volar forearm abscess on July 02. During the night, patient states he was bleeding significantly and blood through his stress seen and came to [facility] [place] for [place]. The emergency department did local wound care and put several stitches in the forearm but the patient went home and developed increasing pain swelling and could not move his fingers and came back to the emergency center in the morning. His pain was a 10 out of 10. He had difficulty moving his fingers. He was diagnosed with post compartment syndrome and was taken to the OR by Dr. Shaver for a left volar forearm compartment fasciotomy and wound VAC was placed. Patient is now on the MedSur floor and pain is currently controlled. Wound culture from [facility] was positive for MSSA. Review of Systems Musculoskeletal: left: hand pain, hand stiffness, hand swelling Past Medical History Past Medical History: Asthma, Coronary Artery Disease (CAD), Chest Pain / Angina , Diabetes Mellitus, Deep Vein Thrombosis (DVT), Hyperlipidemia, Hypertension, Myocardial Infarction ([place]), Sleep Apnea/CPAP/BIPAP Additional Past Medical History / Comment(s): Obstructive sleep apnea CPAP, IDDM type II, DVT L leg, cellulitis L leg 2012, back pain. Hypertension, hypertensive cardiovascular disease with left ventricular hypertrophy, chronic low back pain, diabetic polyneuropathy, chronic kidney disease Last Myocardial Infarction Date:: 06/23/13 History of Any Multi-Drug Resistant Organisms: MRSA Year Discovered:: 08/2014 MDRO Source:: abdomin around naval Past Surgical History: Back Surgery, Coronary Bypass/CABG, Heart Catheterization , Heart Catheterization With Stent, Hernia Repair Additional Past Surgical History / Comment(s): 08/28/15 PCI with stent to ramus. Other surgical hx: Spinal fusion L4-L5, fasciotomy left thigh,CABG 2007- 6 VESSELS, PCI with 3 previous stents, bilateral inguinal hernia repairs. Past Anesthesia/Blood Transfusion Reactions: No Reported Reaction Date of Last Stent Placement:: 08/28/15 Past Psychological History: No Psychological Hx Reported Additional Psychological History / Comment(s): Pt is independent. He is currently living with his parents. Smoking Status: Never smoker Past Alcohol Use History: None Reported Additional Past Alcohol Use History / Comment(s): Vision states he is a lifelong nonsmoker. He denies any medical marijuana, marijuana, street drug use. He is and lives with a roommate. He is on disability due to his diabetes and coronary artery disease. He has one son with no major medical problems. Past Drug Use History: None Reported - Past Family History Brother(s) Additional Family Medical History / Comment(s): Patient has 1 brother and 1 sister with no major medical problems. Mother Family Medical History: Diabetes Mellitus Additional Family Medical History / Comment(s): Mother at the age of 84 from with history of chronic renal disease stage IV and congestive heart failure. Father Family Medical History: Coronary Artery Disease (CAD), Myocardial Infarction ([place] ) Additional Family Medical History / Comment(s): Father of a [place] at the age of 60 yrs with history of COPD. Medications and Allergies Home Medications Medication Instructions Recorded Confirmed Type Furosemide [Lasix] 20 mg PO DAILY PRN 06/23/13 07/03/16 History Losartan/Hydrochlorothiazide 1 tab PO DAILY 06/23/13 07/03/16 History [Losartan-Hctz 100-25 mg Tab] Metoprolol Tartrate [Lopressor] 100 mg PO BID 06/23/13 07/03/16 History cloNIDine HCL [Catapres] 0.1 mg PO BID 06/23/13 07/03/16 History metFORMIN HCL [Glucophage] 1,000 mg PO BID 06/23/13 07/03/16 History Atorvastatin [Lipitor] 80 mg PO HS 08/14/14 07/03/16 History Insulin Aspart [NovoLOG] 8 - 10 units SQ BID@0800,1200 08/14/14 07/03/16 History Insulin Glargine [Lantus] 27 unit SQ HS 08/14/14 07/03/16 History Insulin Aspart [NovoLOG] 15 units SQ AC-SUPPER 08/17/14 07/03/16 History Insulin Aspart [NovoLOG] See Protocol SQ AC-TID 08/17/14 07/03/16 History Nitroglycerin Sl Tabs [Nitrostat] 0.4 mg SUBLINGUAL Q5M PRN 09/07/14 07/03/16 History Aspirin 325 mg PO DAILY 07/02/16 07/03/16 History Ergocalciferol [Vitamin D2] 50,000 unit PO Q14D 07/02/16 07/03/16 History Cephalexin [Keflex] 500 mg PO Q6H 07/03/16 07/03/16 History Allergies Allergy/AdvReac Type Severity Reaction Status Date / Time vancomycin Allergy Rash/Hives Verified 07/03/16 06:53 Physical Exam Vitals: Vital Signs Temp Pulse Resp BP Pulse Ox 07/03/16 10:29 98.7 F 67 18 159/92 96 07/03/16 09:30 65 18 164/88 96 07/03/16 09:15 65 18 148/91 94 L 07/03/16 09:00 66 18 175/103 100 07/03/16 08:45 77 18 174/100 07/03/16 08:30 97.4 F L 71 20 164/98 100 07/03/16 07:01 97 F L 68 16 187/93 95 Intake and Output 07/02/16 07/03/16 07/03/16 22:59 06:59 14:59 Intake Total 60 825 Output Total 50 Balance 60 775 Intake: IV 825 Amount of Fluid Infused ( 60 ml) Output: Estimated Blood Loss 50 Gen: This is a 51-year-old male who is sitting up in bed and appears to be in no acute distress. Left arm is elevated on pillows. HEENT: Head is atraumatic, normocephalic. Pupils equal, round. Sclerae is anicteric. Conjunctiva pink. Mucous membranes of the mouth are somewhat dry. NECK: Supple. No JVD. No lymphadenopathy. No thyromegaly. LUNGS: Clear to auscultation. No wheezes or rhonchi. No intercostal retractions. HEART: Regular rate and rhythm. No murmur. ABDOMEN: Soft. Bowel sounds are present. No masses. No tenderness. EXTREMITIES: No pedal edema. No calf tenderness. Large dressing in place to the left forearm which was not removed. NEUROLOGICAL: Patient is awake, alert and oriented x3. Cranial nerves 2 through 12 are grossly intact. Results Results: Laboratory Results WBC 5.9 k/uL (3.8-10.6) 07/03/16 05:55 RBC 4.84 m/uL (4.30-5.90) 07/03/16 05:55 Hgb 13.7 gm/dL (13.0-17.5) 07/03/16 05:55 Hct 39.5 % (39.0-53.0) 07/03/16 05:55 MCV 81.6 fL (80.0-100.0) 07/03/16 05:55 MCH 28.4 pg (25.0-35.0) 07/03/16 05:55 MCHC 34.8 g/dL (31.0-37.0) 07/03/16 05:55 RDW 13.5 % (11.5-15.5) 07/03/16 05:55 Plt Count 198 k/uL (150-450) 07/03/16 05:55 Neutrophils % 65 % 07/03/16 05:55 Lymphocytes % 19 % 07/03/16 05:55 Monocytes % 10 % 07/03/16 05:55 Eosinophils % 4 % 07/03/16 05:55 Basophils % 1 % 07/03/16 05:55 Neutrophils # 3.8 k/uL (1.3-7.7) 07/03/16 05:55 Lymphocytes # 1.1 k/uL (1.0-4.8) 07/03/16 05:55 Monocytes # 0.6 k/uL (0-1.0) 07/03/16 05:55 Eosinophils # 0.2 k/uL (0-0.7) 07/03/16 05:55 Basophils # 0.0 k/uL (0-0.2) 07/03/16 05:55 PT 10.5 sec (9.0-12.0) 07/03/16 05:55 INR 1.0 (<1.1) 07/03/16 05:55 APTT 21.0 sec (22.0-30.0) L 07/03/16 05:55 Sodium 138 mmol/L (137-145) 07/03/16 05:55 Potassium 3.9 mmol/L (3.5-5.1) 07/03/16 05:55 Chloride 99 mmol/L (98-107) 07/03/16 05:55 Carbon Dioxide 27 mmol/L (22-30) 07/03/16 05:55 Anion Gap 12 mmol/L 07/03/16 05:55 BUN 18 mg/dL (9-20) 07/03/16 05:55 Creatinine 0.88 mg/dL (0.66-1.25) 07/03/16 05:55 Est GFR (MDRD) Af Amer >60 (>60 ml/min/1.73 sqM) 07/03/16 05:55 Est GFR (MDRD) Non-Af >60 (>60 ml/min/1.73 sqM) 07/03/16 05:55 Glucose 335 mg/dL (74-99) H 07/03/16 05:55 POC Glucose (mg/dL) 249 mg/dL (75-99) H 07/03/16 11:46 POC Glu Needle Valve Operator ID Rahat Severino 07/03/16 11:46 Calcium 9.2 mg/dL (8.4-10.2) 07/03/16 05:55 Total Bilirubin 0.6 mg/dL (0.2-1.3) 07/03/16 05:55 AST 24 U/L (17-59) 07/03/16 05:55 ALT 53 U/L (21-72) 07/03/16 05:55 Alkaline Phosphatase 85 U/L (38-126) 07/03/16 05:55 Total Protein 6.5 g/dL (6.3-8.2) 07/03/16 05:55 Albumin 3.9 g/dL (3.5-5.0) 07/03/16 05:55 CBC & Chem 7: 07/03/16 05:55 07/03/16 05:55 Labs: Abnormal Lab Results - Last 24 Hours (Table) 07/03/16 07/03/16 07/03/16 Range/Units 06:58 08:42 11:46 POC Glucose (mg/dL) 283 H 251 H 249 H (75-99) mg/dL Assessment and Plan Plan: This is a 51-year-old male who developed abscess to the left forearm status post I&D initially done at [facility] emergency center followed by I&D with Dr. Enzo Contreras. Patient subsequently developed excessive bleeding and return to the emergency center and discharged home. He subsequently developed compartment syndrome and is status post a she had an AMI and wound VAC placement with Dr. Shaver. Patient is currently on antibiotics with Kefzol for the perioperative period. Wound culture from [facility] was MSSA. Antibiotics will be switched to daptomycin. Continue local wound care. Further recommendations as patient progresses. The above dictated assessment and findings were discussed with Dr. Jeffrey. The impression and plan of care have been directed as dictated. Dipika Mendez nurse practitioner acting as scribe for Dr. Jeffrey.
[2016-07-03] MEDS: HYDROmorphone 1 MG/ML 1 ML SYRINGE IVP PRN ×3 (13:31→21:30)
--- NOTE | 2016-07-03 14:56 | P.PN ---
Subjective The patient's pain is significantly controlled compared to before his fasciotomy. He has no other complaints other than minor forearm pain. Objective - Vital Signs Vital signs: Vital Signs Temp 98.7 F 07/03/16 10:29 Pulse 67 07/03/16 10:29 Resp 18 07/03/16 10:29 BP 159/92 07/03/16 10:29 Pulse Ox 96 07/03/16 10:29 Intake & Output 07/02/16 07/03/16 07/03/16 18:59 06:59 18:59 Intake Total 60 825 Output Total 50 Balance 60 775 Intake: IV 825 Amount of Fluid Infused ( 60 ml) Output: Estimated Blood Loss 50 - Exam A focused examination of the left forearm was conducted. The dressing is in place with no saturated blood. The wound VAC is in place with a good seal. The forearm is soft through the dressing. There is minimal pain with passive range of motion of the fingers. The fingers are warm and well perfused with brisk capillary refill. - Labs CBC & Chem 7: 07/03/16 05:55 07/03/16 05:55 Labs: Abnormal Lab Results - Last 24 Hours (Table) 07/03/16 07/03/16 07/03/16 Range/Units 06:58 08:42 11:46 POC Glucose (mg/dL) 283 H 251 H 249 H (75-99) mg/dL Assessment and Plan (1) Postoperative compartment syndrome Status: Acute (2) Postoperative bleeding from incision Status: Acute Plan: Postoperative check status post left forearm fasciotomy. 1. Nonweightbearing left upper extremity, continue wound VAC set to continuous suction and frequent neurovascular checks. 2. We'll plan to return to the operating room Wednesday morning for repeat irrigation and debridement of the wound, wound VAC removal an attempt at partial versus complete closure of his fasciotomy wound. If the wound is unable to be completely closed I will place another wound VAC and have him follow-up with Dr. Mkasim cronin for definitive management. Anticipate discharge home Wednesday after the operating room if he is medically cleared. Following discharge from the hospital the patient will resume follow-up with Dr. Contreras who is currently out of town.
[2016-07-03] MEDS ORDERED: ceFAZolin 2 GM in SODIUM CHLORIDE 0.9% 100 ML IVPB SCH (16:00)
[2016-07-03 17:31] LABS: Glucose,Whole Blood 261 mg/dL (75-99)
[2016-07-03] MEDS: HEPARIN SODIUM,PORCINE 5,000 UNIT/ML 1 ML VIAL SQ SCH ×2 (18:04→23:35)
[2016-07-03] MEDS: METOCLOPRAMIDE 5 MG/ML 2 ML VIAL IVP PRN (19:00)
--- NOTE | 2016-07-03 20:20 | P.CON ---
Consult Note - . Consult date: 07/03/16 Assessment/Plan:: This is a 51-year-old male patient. He had injury to his left wrist area was not sure what actually happened to it. He went to Dr. Montesinos's office and saw the nurse practitioner and he was sent to [facility] for evaluation and IV antibiotics. Patient underwent I&D in the emergency center and was then sent to Dr. Maksim Contreras. He underwent an incision and drainage of the left volar forearm abscess on July 02. During the night, patient states he was bleeding significantly and blood through his stress seen and came to [facility] emergency center for evaluation. The emergency department did local wound care and put several stitches in the forearm but the patient went home and developed increasing pain swelling and could not move his fingers and came back to the emergency center in the morning. His pain was a 10 out of 10. He had difficulty moving his fingers. He was diagnosed with post compartment syndrome and was taken to the OR by Dr. Shaver for a left volar forearm compartment fasciotomy and wound VAC was placed. Patient is now on the MedSurg floor and pain is currently controlled. Wound culture from [facility] was positive for MSSA. Please see the consult note is dictated by nurse practitioner Mrs. Dipika Mendez. As noted pleasant 51-year-old gentleman who was recently hospitalized an outside hospital. He had an injury and developed evidence of an MSSA abscess. Some drainage occurred as well as treatment with intravenous antibiotic therapy , daptomycin was being utilized because of his difficulty with other antibiotics. However at discharge she was doing well. MSSA was isolated and he was discharged home on oral cephalosporin. He did well for about a week and then has significant worsening of his symptoms. He was seen by Dr. Montano in the outpatient setting and then referred to orthopedic surgery. A significant abscess was seen and was taken to the operating room for incision and drainage. Over the enhance significant worsening and presented back to the hospital there is evidence of a compartment syndrome and to the left volar forearm was taken to the operating was noted for the drainage and VAC placement. Patient is showing some improvement at this time. Pain is definitely better controlled. It has improved motion of the hand. He is denying further fever, chills or rigors. With this level of infection will likely need outpatient intravenous antibiotic therapy. Final choices will be depending on the final cultures. Once he is evidence of negative blood cultures a PICC line can be placed for arrangements for the out patient intravenous antibiotic therapy. I agree with evaluation, assessment and plan is dictated by nurse practitioner Mrs. Dipika Mendez.
[2016-07-03 20:24] LABS: Glucose,Whole Blood 235 mg/dL (75-99)
[2016-07-03] MEDS: INSULIN GLARGINE 100 UNIT/ML 10 ML VIAL SQ SCH (21:26)
[2016-07-03] MEDS: SENNOSIDES-DOCUSATE SODIUM 1 EACH TAB PO PRN (21:27)
[2016-07-04] MEDS: HYDROmorphone 1 MG/ML 1 ML SYRINGE IVP PRN ×4 (02:31→20:30)
[2016-07-04] MEDS: LACTATED RINGERS 1,000 ML IV SCH ×3 (03:38→14:43)
[2016-07-04] MEDS ORDERED: INSULIN LISPRO (humaLOG) 300 UNIT/3 ML VIAL SQ SCH (07:30)
[2016-07-04 07:51] LABS: Glucose,Whole Blood 163 mg/dL (75-99)
[2016-07-04] MEDS: INSULIN LISPRO (humaLOG) 300 UNIT/3 ML VIAL SQ SCH ×7 (07:54→20:24)
[2016-07-04] MEDS: HEPARIN SODIUM,PORCINE 5,000 UNIT/ML 1 ML VIAL SQ SCH ×2 (07:55→16:30)
[2016-07-04] MEDS: metFORMIN 500 MG TAB PO SCH ×2 (07:55→18:22)
[2016-07-04] MEDS: cloNIDine HCL 0.1 MG TAB PO SCH (07:56)
[2016-07-04] MEDS: ASPIRIN 325 MG TAB PO SCH (07:56)
[2016-07-04] MEDS: METOPROLOL TARTRATE 50 MG TAB PO SCH (07:56)
[2016-07-04] MEDS: CLOPIDOGREL 75 MG TAB PO SCH (07:57)
[2016-07-04] MEDS: LOSARTAN-HCTZ 50-12.5 MG 1 EACH TAB PO SCH (07:57)
[2016-07-04 07:58] LABS: Basophils % (A) 1 %; CH 29.5; CHCM 35.7; Eosinophils # (A) 0.2 k/uL (0-0.7); Eosinophils % (A) 5 %; HCT 35.1 % (39.0-53.0); HGB 12.2 gm/dL (13.0-17.5); Luc # (Auto) 0.14; Luc % (Auto) 3; Lymphocytes # (A) 1.3 k/uL (1.0-4.8); Lymphocytes % (A) 26 %; MCH 28.8 pg (25.0-35.0); MCHC 34.7 g/dL (31.0-37.0); MCV 83.1 fL (80.0-100.0); Monocytes # (A) 0.5 k/uL (0-1.0); Monocytes % (A) 10 %; Neutrophils # (A) 2.8 k/uL (1.3-7.7); Neutrophils % (A) 57 %; RBC 4.22 m/uL (4.30-5.90); RDW 13.5 % (11.5-15.5); WBC 4.9 k/uL (3.8-10.6); WBC (Perox) 4.88
[2016-07-04] MEDS: METOCLOPRAMIDE 5 MG/ML 2 ML VIAL IVP PRN ×3 (08:08→20:30)
[2016-07-04 11:57] LABS: Glucose,Whole Blood 163 mg/dL (75-99)
[2016-07-04 13:42] LABS: Glucose,Whole Blood 80 mg/dL (75-99)
[2016-07-04 17:31] LABS: Glucose,Whole Blood 204 mg/dL (75-99)
[2016-07-04 20:05] LABS: Glucose,Whole Blood 170 mg/dL (75-99)
[2016-07-04] MEDS: INSULIN GLARGINE 100 UNIT/ML 10 ML VIAL SQ SCH (20:24)
[2016-07-04] MEDS ORDERED: METOPROLOL TARTRATE 50 MG TAB ONE (21:00)
[2016-07-04] MEDS ORDERED: cloNIDine HCL 0.1 MG TAB ONE (21:00)
[2016-07-05] MEDS ORDERED: HYDROmorphone 1 MG/ML 1 ML SYRINGE ONE (01:00)
[2016-07-05] MEDS ORDERED: HEPARIN SODIUM,PORCINE 5,000 UNIT/ML 1 ML VIAL ONE (01:00)
[2016-07-05] MEDS: HYDROmorphone 1 MG/ML 1 ML SYRINGE IVP PRN ×5 (06:22→21:34)
[2016-07-05 07:52] LABS: Glucose,Whole Blood 146 mg/dL (75-99)
[2016-07-05] MEDS: INSULIN LISPRO (humaLOG) 300 UNIT/3 ML VIAL SQ SCH ×7 (08:00→21:00)
--- NOTE | 2016-07-05 08:02 | P.PN ---
Subjective Principal diagnosis: Compartment syndrome left upper extremity Status post fasciotomy left forearm Date of visit is 07/04/2016 This is a 51-year-old male who is status post fasciotomy of the left forearm for compartment syndrome. The patient had incision and drainage by Dr. Maksim Contreras on 07/02/2016. He returned to the emergency department with bleeding. The ER closed his wound. He returned again within a few hours with increased swelling to the forearm. He was taken to surgery for fasciotomy. He is doing well today with no new complaints or concerns. Objective - Vital Signs Vital signs: Vital Signs Temp 98.8 F 07/04/16 23:00 Pulse 67 07/04/16 23:00 Resp 16 07/04/16 23:00 BP 148/81 07/04/16 23:00 Pulse Ox 95 07/04/16 23:00 Intake & Output 07/04/16 07/05/16 07/05/16 18:59 06:59 18:59 Intake Total 1400 590 Output Total 1700 Balance -300 590 Weight 83.915 kg Intake: Intake, IV Titration 800 Amount Lactated Ringers 1,000 ml 800 @ 20 mls/hr IV .Q24H INDERJIT Rx#:[id number] Oral 600 590 Output: Urine 1700 Other: Voiding Method Urinal # Voids 2 2 - Exam This is a pleasant 51-year-old male in no acute distress. He is alert and oriented 3. Exam of the upper extremity reveals that his dressing is clean, dry and intact. He has improved finger motion. He can perceive fine touch to the fingers. Capillary refill is less than 3 seconds. - Labs CBC & Chem 7: 07/04/16 07:17 07/03/16 05:55 Labs: Abnormal Lab Results - Last 24 Hours (Table) 07/04/16 07/04/16 07/04/16 Range/Units 07:17 07:41 11:53 RBC 4.22 L (4.30-5.90) m/uL Hgb 12.2 L (13.0-17.5) gm/dL Hct 35.1 L (39.0-53.0) % POC Glucose (mg/dL) 163 H 163 H (75-99) mg/dL 07/04/16 07/04/16 Range/Units 17:29 20:03 RBC (4.30-5.90) m/uL Hgb (13.0-17.5) gm/dL Hct (39.0-53.0) % POC Glucose (mg/dL) 204 H 170 H (75-99) mg/dL Assessment and Plan (1) History of fasciotomy Status: Acute (2) Postoperative compartment syndrome Status: Acute (3) Postoperative bleeding from incision Status: Acute Plan: The clinical findings are discussed the patient. Continue care. Leave dressing intact. Planning secondary closure on Wednesday.
[2016-07-05] MEDS: HEPARIN SODIUM,PORCINE 5,000 UNIT/ML 1 ML VIAL SQ SCH ×3 (08:13→16:42)
[2016-07-05] MEDS: METOPROLOL TARTRATE 50 MG TAB PO SCH ×3 (08:13→22:10)
[2016-07-05] MEDS: cloNIDine HCL 0.1 MG TAB PO SCH ×3 (08:13→22:10)
[2016-07-05] MEDS: LACTATED RINGERS 1,000 ML IV SCH ×2 (08:14→11:00)
[2016-07-05] MEDS: metFORMIN 500 MG TAB PO SCH ×2 (08:16→19:21)
[2016-07-05] MEDS: CLOPIDOGREL 75 MG TAB PO SCH (08:17)
[2016-07-05] MEDS: LOSARTAN-HCTZ 50-12.5 MG 1 EACH TAB PO SCH (08:17)
[2016-07-05] MEDS: ASPIRIN 325 MG TAB PO SCH (08:17)
[2016-07-05] MEDS ORDERED: MAGNESIUM HYDROXIDE 2,400 MG/10 ML CUP PO PRN (08:31)
[2016-07-05 09:17] LABS: Basophils % (A) 0 %; CH 29.5; CHCM 36.8; Eosinophils # (A) 0.2 k/uL (0-0.7); Eosinophils % (A) 3 %; HCT 33.7 % (39.0-53.0); HDW 3.21; HGB 12.1 gm/dL (13.0-17.5); Luc # (Auto) 0.09; Luc % (Auto) 2; Lymphocytes % (A) 22 %; MCH 28.9 pg (25.0-35.0); MCHC 35.9 g/dL (31.0-37.0); MCV 80.5 fL (80.0-100.0); Mean Platelet Volume 7.8; Monocytes # (A) 0.4 k/uL (0-1.0); Monocytes % (A) 8 %; Neutrophils # (A) 2.9 k/uL (1.3-7.7); Neutrophils % (A) 65 %; RBC 4.19 m/uL (4.30-5.90); RDW 13.7 % (11.5-15.5); WBC 4.5 k/uL (3.8-10.6); WBC (Perox) 4.68
[2016-07-05 09:34] LABS: Anion Gap 11 mmol/L; Carbon Dioxide 27 mmol/L (22-30); Chloride 103 mmol/L (98-107); Glucose 241 mg/dL (74-99); Non-African American GFR(MDRD) >60 (>60 ml/min/1.73 sqM); Sodium 141 mmol/L (137-145); Total Bilirubin 0.7 mg/dL (0.2-1.3)
[2016-07-05 09:35] LABS: ALT 32 U/L (21-72); AST 30 U/L (17-59); Alkaline Phosphatase 51 U/L (38-126); Blood Urea Nitrogen 17 mg/dL (9-20); Potassium 4.2 mmol/L (3.5-5.1)
--- NOTE | 2016-07-05 10:12 | P.PN ---
Subjective Principal diagnosis: Compartment syndrome left upper extremity Status post fasciotomy left forearm Date of visit is 07/04/2016 This is a 51-year-old male who is status post fasciotomy of the left forearm for compartment syndrome. The patient had incision and drainage by Dr. Maksim Contreras on 07/02/2016. He returned to the emergency department with bleeding. The ER closed his wound. He returned again within a few hours with increased swelling to the forearm. He was taken to surgery for fasciotomy. He is doing well today with no new complaints or concerns. Objective - Vital Signs Vital signs: Vital Signs Temp 98.3 F 07/05/16 07:00 Pulse 77 07/05/16 08:00 Resp 18 07/05/16 08:00 BP 145/84 07/05/16 07:00 Pulse Ox 94 L 07/05/16 07:00 Intake & Output 07/04/16 07/05/16 07/05/16 18:59 06:59 18:59 Intake Total 1400 590 Output Total 1700 700 Balance -300 590 -700 Weight 83.915 kg 83.915 kg Intake: Intake, IV Titration 800 Amount Lactated Ringers 1,000 ml 800 @ 20 mls/hr IV .Q24H INDERJIT Rx#:[id number] Oral 600 590 Output: Urine 1700 700 Other: Voiding Method Urinal Urinal # Voids 2 2 2 - Exam This is a pleasant 51-year-old male in no acute distress. He is alert and oriented 3. Exam of the upper extremity reveals that his dressing is clean, dry and intact. He has improved finger motion. He can perceive fine touch to the fingers. Capillary refill is less than 3 seconds. - Labs CBC & Chem 7: 07/05/16 09:07 07/05/16 09:07 Labs: Abnormal Lab Results - Last 24 Hours (Table) 07/04/16 07/04/16 07/04/16 Range/Units 11:53 17:29 20:03 RBC (4.30-5.90) m/uL Hgb (13.0-17.5) gm/dL Hct (39.0-53.0) % Glucose (74-99) mg/dL POC Glucose (mg/dL) 163 H 204 H 170 H (75-99) mg/dL Total Protein (6.3-8.2) g/dL Albumin (3.5-5.0) g/dL 07/05/16 07/05/16 07/05/16 Range/Units 07:50 09:07 09:07 RBC 4.19 L (4.30-5.90) m/uL Hgb 12.1 L (13.0-17.5) gm/dL Hct 33.7 L (39.0-53.0) % Glucose 241 H (74-99) mg/dL POC Glucose (mg/dL) 146 H (75-99) mg/dL Total Protein 6.0 L (6.3-8.2) g/dL Albumin 3.3 L (3.5-5.0) g/dL Assessment and Plan (1) History of fasciotomy Status: Acute (2) Postoperative compartment syndrome Status: Acute (3) Postoperative bleeding from incision Status: Acute Plan: The clinical findings are discussed the patient. Continue care. Leave dressing intact. Planning secondary closure on Wednesday.
[2016-07-05] MEDS: SENNOSIDES-DOCUSATE SODIUM 1 EACH TAB PO SCH ×2 (10:18→22:11)
[2016-07-05] MEDS: HYDROcodone/APAP 5-325MG 1 EACH TAB PO PRN ×3 (11:34→22:57)
[2016-07-05 11:40] LABS: Glucose,Whole Blood 192 mg/dL (75-99)
[2016-07-05] MEDS ORDERED: DAPTOmycin 500 MG in SODIUM CHLORIDE 0.9% 50 ML IV SCH (13:00)
--- NOTE | 2016-07-05 13:45 | P.PN ---
Subjective This is a 51-year-old patient of mine with past medical history for coronary artery disease status post 6 vessel CABG in 2006 with MAE to LAD, saphenous venous graft to the PDA, saphenous venous graft to the obtuse marginal one, radial artery to the obtuse marginal branch 2 and saphenous venous graft to the obtuse marginal 3 followed by heart catheterization with PCI and stent of the saphenous venous graft to the RCA in 2015 at which time he presented with non-ST elevated myocardial infarction. History of diabetes mellitus2 with diabetic polyneuropathy, hyperlipidemia, hypertension, hypertensive cardiovascular disease with left ventricular hypertrophy, asthma, sleep apnea on CPAP, chronic low back pain, chronic kidney disease, DVT in the past. Patient had injury to his left wrist area was not sure what actually happened to it. He went to my office and saw the nurse practitioner and he was sent to [facility] for evaluation and IV antibiotics. Patient underwent I&D in the emergency center and was then sent to Dr. Maksim Contreras. He underwent an incision and drainage of the left volar forearm abscess on July 02. During the night, patient states he was bleeding significantly and blood through his stress seen and came to [facility] emergency center for evaluation. The emergency department did local wound care and put several stitches in the forearm but the patient went home and developed increasing pain swelling and could not move his fingers and came back to the emergency center in the morning. His pain was a 10 out of 10. He had difficulty moving his fingers. He was diagnosed with post compartment syndrome and was taken to the OR by Dr. Shaver for a left volar forearm compartment fasciotomy and wound VAC was placed. Patient is now on the MedSurg floor and pain is currently controlled. Wound culture from [facility] was positive for MSSA. Consult placed with Dr. Jeffrey for antibiotic management. 07/04: Patient is sitting up in bed is complaining of increased pain in the left forearm, he is constipated quite a bit, he denies any chest pain, shortness breath, he has no abdominal pain, he has no nausea vomiting or diarrhea. He has a wound VAC at the site. Objective - Vital Signs Vital signs: Vital Signs Temp 97.4 F L 07/03/16 23:00 Pulse 68 07/03/16 23:00 Resp 16 07/04/16 00:00 BP 118/67 07/03/16 23:00 Pulse Ox 97 07/03/16 23:00 Intake & Output 07/03/16 07/04/16 07/04/16 18:59 06:59 18:59 Intake Total 1805 880 Output Total 50 300 Balance 1755 580 Weight 83.915 kg 83.915 kg Intake: IV 825 Intake, IV Titration 500 160 Amount DAPTOmycin 500 mg In 50 Sodium Chloride 0.9% 50 ml @ 100 mls/hr IV Q24H [facility] Rx#:[id number] Lactated Ringers 1,000 ml 450 160 @ 100 mls/hr IV .Q10H INDERJIT Rx#:[id number] Oral 480 720 Output: Urine 300 Estimated Blood Loss 50 Other: # Voids 2 1 - Constitutional General appearance: Present: average body habitus, mild distress - EENT Eyes: Present: EOMI, PERRLA, scleral icterus, normal appearance. Absent: ptosis ENT: Present: hearing grossly normal, NA/AT, normal oropharynx. Absent: thrush Ears: bilateral: normal - Neck Neck: Present: normal ROM. Absent: lymphadenopathy, rigidity, stridor, thyromegaly Carotids: bilateral: upstroke normal Thyroid: bilateral: normal size - Respiratory Respiratory: bilateral: diminished, negative: dullness, rales, rhonchi, wheezing , prolonged expiration, prolonged inspiration - Cardiovascular Rhythm: regular Heart sounds: normal: S1, S2 Abnormal Heart Sounds: Present: systolic murmur. Absent: S3 Gallop, S4 Gallop - Gastrointestinal General gastrointestinal: Present: distended, normal bowel sounds, soft. Absent : splenomegaly, tenderness, umbilical hernia, ventral hernia - Integumentary Integumentary: Present: pale - Neurologic Neurologic: Present: CNII-XII intact - Musculoskeletal Musculoskeletal: Present: gait normal, generalized weakness, strength equal bilaterally - Psychiatric Psychiatric: Present: A&O x's 3, appropriate affect, intact judgment & insight - Labs CBC & Chem 7: 07/05/16 09:07 07/05/16 09:07 Labs: Abnormal Lab Results - Last 24 Hours (Table) 07/03/16 07/03/16 07/03/16 Range/Units 08:42 11:46 17:29 POC Glucose (mg/dL) 251 H 249 H 261 H (75-99) mg/dL 07/03/16 07/04/16 Range/Units 20:18 07:41 POC Glucose (mg/dL) 235 H 163 H (75-99) mg/dL Assessment and Plan Plan: Assessment and Plan Plan: 1. Left volar forearm compartment syndrome status post patient to ne and wound VAC placement under the care of Dr. Shaver. Continue current pain management. Incentive serology to reduce incidence of atelectasis and hospital- acquired pneumonia. DVT prophylaxis and GI prophylaxis. Consult with Dr. Jeffrey. Continue daptomycin. 2. History of coronary artery disease status post coronary artery bypass graft for 6 vessel disease with chronically occluded saphenous venous graft to the obtuse marginal branch and status post PCI of the saphenous graft to the RCA. Continue Plavix 75 mg daily, aspirin 325 mg daily, Lipitor is on hold, continue Lopressor 100 mg twice daily, nitroglycerin as needed. 3. Diabetes mellitus type 2 and diabetic polyneuropathy. Continue Lantus 27 units at bedtime, Humalog 15 units before supper, 8 units with breakfast and lunch. Continue metformin 1000 mg twice daily 4. Hypertension, hypertensive cardiovascular disease. Continue Catapres 0.1 mg twice daily, Lopressor 100 mg twice daily, losartan/hydrochlorothiazide 1 daily. 5. Hyperlipidemia. Lipitor on hold while on daptomycin. 6. Obstructive sleep apnea. Continue CPAP as per home settings. 7. Chronic kidney disease stage II. 8. Opioid-induced constipation. Start the patient on Senokot one tablet orally twice every day, milk of Magnesia 30 mL orally once every day as needed. 9. Increase activity.
--- NOTE | 2016-07-05 13:46 | P.PN ---
Subjective This is a 51-year-old patient of mine with past medical history for coronary artery disease status post 6 vessel CABG in 2006 with MAE to LAD, saphenous venous graft to the PDA, saphenous venous graft to the obtuse marginal one, radial artery to the obtuse marginal branch 2 and saphenous venous graft to the obtuse marginal 3 followed by heart catheterization with PCI and stent of the saphenous venous graft to the RCA in 2015 at which time he presented with non-ST elevated myocardial infarction. History of diabetes mellitus2 with diabetic polyneuropathy, hyperlipidemia, hypertension, hypertensive cardiovascular disease with left ventricular hypertrophy, asthma, sleep apnea on CPAP, chronic low back pain, chronic kidney disease, DVT in the past. Patient had injury to his left wrist area was not sure what actually happened to it. He went to my office and saw the nurse practitioner and he was sent to [facility] for evaluation and IV antibiotics. Patient underwent I&D in the emergency center and was then sent to Dr. Maksim Contreras. He underwent an incision and drainage of the left volar forearm abscess on July 02. During the night, patient states he was bleeding significantly and blood through his stress seen and came to [facility] emergency center for evaluation. The emergency department did local wound care and put several stitches in the forearm but the patient went home and developed increasing pain swelling and could not move his fingers and came back to the emergency center in the morning. His pain was a 10 out of 10. He had difficulty moving his fingers. He was diagnosed with post compartment syndrome and was taken to the OR by Dr. Shaver for a left volar forearm compartment fasciotomy and wound VAC was placed. Patient is now on the MedSurg floor and pain is currently controlled. Wound culture from [facility] was positive for MSSA. Consult placed with Dr. Jeffrey for antibiotic management. 07/04: Patient is sitting up in bed is complaining of increased pain in the left forearm, he is constipated quite a bit, he denies any chest pain, shortness breath, he has no abdominal pain, he has no nausea vomiting or diarrhea. He has a wound VAC at the site. 07/05: Patient is sitting up in bed, he is feeling more pain in the left upper extremity, he was seen earlier by orthopedic service, he continues to have a wound VAC in place, he continues to have his wound wrapped with an Del wrap, patient pain management was maintained on Dilaudid and Artesia, patient was not taking any of his Artesia yesterday he was advised to start taking Artesia along with the Dilaudid as needed. Objective - Vital Signs Vital signs: Vital Signs Temp 98.3 F 07/05/16 07:00 Pulse 77 07/05/16 08:00 Resp 18 07/05/16 08:00 BP 145/84 07/05/16 07:00 Pulse Ox 94 L 07/05/16 07:00 Intake & Output 07/04/16 07/05/16 07/05/16 18:59 06:59 18:59 Intake Total 1400 590 Output Total 1700 700 Balance -300 590 -700 Weight 83.915 kg 83.915 kg Intake: Intake, IV Titration 800 Amount Lactated Ringers 1,000 ml 800 @ 20 mls/hr IV .Q24H [facility] Rx#:[id number] Oral 600 590 Output: Urine 1700 700 Other: Voiding Method Urinal Urinal # Voids 2 2 2 - Exam - Constitutional General appearance: Present: average body habitus, mild distress - EENT Eyes: Present: EOMI, PERRLA, scleral icterus, normal appearance. Absent: ptosis ENT: Present: hearing grossly normal, NA/AT, normal oropharynx. Absent: thrush Ears: bilateral: normal - Neck Neck: Present: normal ROM. Absent: lymphadenopathy, rigidity, stridor, thyromegaly Carotids: bilateral: upstroke normal Thyroid: bilateral: normal size - Respiratory Respiratory: bilateral: diminished, negative: dullness, rales, rhonchi, wheezing , prolonged expiration, prolonged inspiration - Cardiovascular Rhythm: regular Heart sounds: normal: S1, S2 Abnormal Heart Sounds: Present: systolic murmur. Absent: S3 Gallop, S4 Gallop - Gastrointestinal General gastrointestinal: Present: distended, normal bowel sounds, soft. Absent : splenomegaly, tenderness, umbilical hernia, ventral hernia - Integumentary Integumentary: Present: pale - Neurologic Neurologic: Present: CNII-XII intact - Musculoskeletal Musculoskeletal: Present: gait normal, generalized weakness, strength equal bilaterally - Psychiatric Psychiatric: Present: A&O x's 3, appropriate affect, intact judgment & insight - Labs CBC & Chem 7: 07/05/16 09:07 07/05/16 09:07 Labs: Abnormal Lab Results - Last 24 Hours (Table) 07/04/16 07/04/16 07/05/16 Range/Units 17:29 20:03 07:50 RBC (4.30-5.90) m/uL Hgb (13.0-17.5) gm/dL Hct (39.0-53.0) % Glucose (74-99) mg/dL POC Glucose (mg/dL) 204 H 170 H 146 H (75-99) mg/dL Total Protein (6.3-8.2) g/dL Albumin (3.5-5.0) g/dL 07/05/16 07/05/16 07/05/16 Range/Units 09:07 09:07 11:39 RBC 4.19 L (4.30-5.90) m/uL Hgb 12.1 L (13.0-17.5) gm/dL Hct 33.7 L (39.0-53.0) % Glucose 241 H (74-99) mg/dL POC Glucose (mg/dL) 192 H (75-99) mg/dL Total Protein 6.0 L (6.3-8.2) g/dL Albumin 3.3 L (3.5-5.0) g/dL Assessment and Plan Plan: Assessment and Plan Plan: 1. Left volar forearm compartment syndrome status post patient to ca and wound VAC placement under the care of Dr. Shaver. Continue current pain management. Incentive serology to reduce incidence of atelectasis and hospital- acquired pneumonia. DVT prophylaxis and GI prophylaxis. Consult with Dr. Jeffrey. Continue daptomycin. 2. History of coronary artery disease status post coronary artery bypass graft for 6 vessel disease with chronically occluded saphenous venous graft to the obtuse marginal branch and status post PCI of the saphenous graft to the RCA. Continue Plavix 75 mg daily, aspirin 325 mg daily, Lipitor is on hold, continue Lopressor 100 mg twice daily, nitroglycerin as needed. 3. Diabetes mellitus type 2 and diabetic polyneuropathy. Continue Lantus 27 units at bedtime, Humalog 15 units before supper, 8 units with breakfast and lunch. Continue metformin 1000 mg twice daily 4. Hypertension, hypertensive cardiovascular disease. Continue Catapres 0.1 mg twice daily, Lopressor 100 mg twice daily, losartan/hydrochlorothiazide 1 daily. 5. Hyperlipidemia. Lipitor on hold while on daptomycin. 6. Obstructive sleep apnea. Continue CPAP as per home settings. 7. Chronic kidney disease stage II. 8. Opioid-induced constipation. Start the patient on Senokot one tablet orally twice every day, milk of Magnesia 30 mL orally once every day as needed. 9. Increase activity.
[2016-07-05 16:41] LABS: Glucose,Whole Blood 77 mg/dL (75-99)
[2016-07-05 20:12] LABS: Glucose,Whole Blood 106 mg/dL (75-99)
[2016-07-05] MEDS: INSULIN GLARGINE 100 UNIT/ML 10 ML VIAL SQ SCH (21:34)
[2016-07-05] MEDS: SENNOSIDES-DOCUSATE SODIUM 1 EACH TAB PO PRN (22:09)
[2016-07-06] MEDS: HEPARIN SODIUM,PORCINE 5,000 UNIT/ML 1 ML VIAL SQ SCH ×3 (00:08→16:15)
[2016-07-06] MEDS: LACTATED RINGERS 1,000 ML IV SCH ×4 (00:35→20:45)
[2016-07-06] MEDS: HYDROmorphone 1 MG/ML 1 ML SYRINGE IVP PRN ×5 (01:58→22:36)
[2016-07-06] MEDS: HYDROcodone/APAP 5-325MG 1 EACH TAB PO PRN ×2 (07:08→13:21)
[2016-07-06 07:33] LABS: Glucose,Whole Blood 216 mg/dL (75-99)
[2016-07-06] MEDS: INSULIN LISPRO (humaLOG) 300 UNIT/3 ML VIAL SQ SCH ×7 (08:16→20:45)
[2016-07-06] MEDS: metFORMIN 500 MG TAB PO SCH ×2 (08:16→18:10)
[2016-07-06] MEDS: LOSARTAN-HCTZ 50-12.5 MG 1 EACH TAB PO SCH (08:17)
[2016-07-06] MEDS: METOPROLOL TARTRATE 50 MG TAB PO SCH ×2 (08:17→20:40)
[2016-07-06] MEDS: cloNIDine HCL 0.1 MG TAB PO SCH ×2 (08:23→20:40)
[2016-07-06] MEDS: ASPIRIN 325 MG TAB PO SCH (08:23)
[2016-07-06] MEDS: CLOPIDOGREL 75 MG TAB PO SCH (08:24)
[2016-07-06] MEDS: SENNOSIDES-DOCUSATE SODIUM 1 EACH TAB PO SCH ×2 (08:24→22:44)
--- NOTE | 2016-07-06 08:26 | P.PN ---
Subjective Principal diagnosis: Status post left forearm fasciotomy This is a 51 year-old male post left forearm fasciotomy by Dr. Shaver. This is post-op day 3. The patient is also status post granuloma excision by Dr. Yobani Contreras on 07/02/2016. The patient was evaluated at the bedside today. The patient denies nausea, vomiting, abdominal pain, shortness of breath, and chest pain this morning. He states his pain is controlled at this time. The patient is scheduled for a repeat I&D and partial or full wound closure today. The patient is currently nothing by mouth. Objective - Vital Signs Vital signs: Vital Signs Temp 98 F 07/05/16 23:00 Pulse 66 07/05/16 23:00 Resp 16 07/05/16 23:00 BP 159/83 07/05/16 23:00 Pulse Ox 93 L 07/05/16 23:00 Intake & Output 07/05/16 07/06/16 07/06/16 18:59 06:59 18:59 Intake Total 750 220 Output Total 2100 700 Balance -1350 -480 Weight 83.915 kg 83.915 kg Intake: IV 220 Lactated Ringers 1,000 ml 220 @ 20 mls/hr IV .Q24H [facility] Rx#:[id number] Intake, IV Titration 350 Amount DAPTOmycin 500 mg In 50 Sodium Chloride 0.9% 50 ml @ 100 mls/hr IV Q24H [facility] Rx#:[id number] Lactated Ringers 1,000 ml 300 @ 20 mls/hr IV .Q24H [facility] Rx#:[id number] Oral 400 Output: Urine 2100 700 Other: Voiding Method Urinal Urinal # Voids 3 2 - Exam The patient is in no acute distress, he is alert and oriented 3. Exam of the left upper extremity reveals a dressing with wound VAC attached to the left forearm and hand. The patient is able to wiggle his fingers but does have some stiffness and loss of range of motion. The patient does not have pain upon passive range of motion of the fingers. Sensation and circulatory status is intact. - Labs CBC & Chem 7: 07/05/16 09:07 07/05/16 09:07 Labs: Abnormal Lab Results - Last 24 Hours (Table) 07/05/16 07/05/16 07/05/16 Range/Units 09:07 09:07 11:39 RBC 4.19 L (4.30-5.90) m/uL Hgb 12.1 L (13.0-17.5) gm/dL Hct 33.7 L (39.0-53.0) % Glucose 241 H (74-99) mg/dL POC Glucose (mg/dL) 192 H (75-99) mg/dL Total Protein 6.0 L (6.3-8.2) g/dL Albumin 3.3 L (3.5-5.0) g/dL 07/05/16 07/06/16 Range/Units 20:10 07:10 RBC (4.30-5.90) m/uL Hgb (13.0-17.5) gm/dL Hct (39.0-53.0) % Glucose (74-99) mg/dL POC Glucose (mg/dL) 106 H 216 H (75-99) mg/dL Total Protein (6.3-8.2) g/dL Albumin (3.5-5.0) g/dL Assessment and Plan (1) Postoperative compartment syndrome Status: Acute (2) History of fasciotomy Status: Acute Plan: The clinical findings are discussed with the patient. The patient will undergo a repeat I&D with partial or full wound closure today by Dr. Shaver. Continue nothing by mouth status. The patient will most likely be discharged after surgery today. The patient will follow-up with Dr. Yobani Contreras at the office for further monitoring. The patient may also need antibiotics per Dr. Jeffrey. We'll continue to follow patient closely.
[2016-07-06 08:53] LABS: Basophils % (A) 1 %; CH 29.6; CHCM 35.9; Eosinophils # (A) 0.2 k/uL (0-0.7); Eosinophils % (A) 4 %; HCT 36.1 % (39.0-53.0); HDW 3.34; HGB 12.5 gm/dL (13.0-17.5); Luc # (Auto) 0.19; Luc % (Auto) 3; Lymphocytes # (A) 0.9 k/uL (1.0-4.8); Lymphocytes % (A) 16 %; MCH 28.7 pg (25.0-35.0); MCHC 34.7 g/dL (31.0-37.0); MCV 82.6 fL (80.0-100.0); Monocytes # (A) 0.6 k/uL (0-1.0); Monocytes % (A) 10 %; Neutrophils # (A) 3.7 k/uL (1.3-7.7); Neutrophils % (A) 66 %; RBC 4.37 m/uL (4.30-5.90); RDW 13.5 % (11.5-15.5); WBC 5.5 k/uL (3.8-10.6); WBC (Perox) 5.52
[2016-07-06 09:20] LABS: ALT 25 U/L (21-72); AST 22 U/L (17-59); Alkaline Phosphatase 84 U/L (38-126); Anion Gap 10 mmol/L; Blood Urea Nitrogen 17 mg/dL (9-20); Calcium 8.5 mg/dL (8.4-10.2); Carbon Dioxide 26 mmol/L (22-30); Chloride 103 mmol/L (98-107); Glucose 198 mg/dL (74-99); Non-African American GFR(MDRD) >60 (>60 ml/min/1.73 sqM); Potassium 3.9 mmol/L (3.5-5.1); Sodium 139 mmol/L (137-145); Total Bilirubin 0.5 mg/dL (0.2-1.3); Total Protein 6.2 g/dL (6.3-8.2)
[2016-07-06 09:30] LABS: Glucose,Whole Blood 137 mg/dL (75-99)
[2016-07-06] MEDS ORDERED: IV FLUID CONTINUATION 1,000 ML IV ONE (09:44)
[2016-07-06] MEDS ORDERED: ONDANSETRON 4 MG/2 ML VIAL IVP ONE (09:55)
[2016-07-06 10:17] LABS: Glucose,Whole Blood 82 mg/dL (75-99)
[2016-07-06] MEDS ORDERED: PROPOFOL 10 MG/ML 20 ML VIAL IV ONE (10:23)
[2016-07-06] MEDS ORDERED: MIDAZOLAM 2 MG/2 ML VIAL ONE (10:23)
[2016-07-06] MEDS ORDERED: LIDOCAINE 1% INJ 10MG/ML (20 ML MDV) ONE (10:23)
[2016-07-06] MEDS ORDERED: SUCCINYLCHOLINE CHLORIDE 100 MG/5 ML SYR IV ONE (10:23)
[2016-07-06] MEDS ORDERED: fentaNYL (PF) 50 MCG/ML 2 ML AMP ONE (10:23)
[2016-07-06] MEDS ORDERED: LACTATED RINGERS 1,000 ML IV ONE (10:49)
[2016-07-06] MEDS ORDERED: ceFAZolin 3,000 MG in SODIUM CHLORIDE 0.9% IRRIGATIO 3,000 ML IRRIGATION ONE (10:53)
--- NOTE | 2016-07-06 11:39 | P.OP ---
Date of Procedure: 07/06/16 Preoperative Diagnosis: 1. Postop left forearm compartment syndrome status post volar compartment fasciotomy 2. Coronary artery disease with prior cardiac stent procedure with bank graft harvest left forearm 3. Type 2 diabetes 4. Status post left forearm granuloma I&D last Postoperative Diagnosis: Same Procedure(s) Performed: 1. Left forearm irrigation and debridement of wound measuring 20.5 cm 2. Application of VAC dressing to left forearm wound measuring 8.5 cm in length 3. Partial closure of complex left forearm wound measuring 12 cm Anesthesia: GETA Surgeon: Lakhwinder Shaver Estimated Blood Loss (ml): 10 IV fluids (ml): 800 Pathology: none sent Condition: stable Disposition: PACU Indications for Procedure: The patient is a 51-year-old male with multiple medical problems including coronary artery disease currently on Plavix who has had coronary artery surgery with vein graft harvest from the left forearm. The patient had an I&D of the left forearm granuloma last by my partner Dr. Maksim Contreras. He was discharged from our surgery Center as an outpatient. His wound was left open to allow drainage. That night he went to the emergency department with bleeding from his left forearm. The emergency department physician placed several sutures to close the wound but did not call our service. The patient was discharged home but then followed again several hours later with increasing pain. Clinically he had signs and symptoms of a department syndrome. He is taken urgently to the operating room by myself for a volar compartment fasciotomy was performed. The patient had a wound VAC placed and has been in the hospital since. He presents today for irrigation and debridement, VAC dressing change an attempt at partial closure of his left forearm wound. We discussed risks and benefits of surgery including infection, nerve injury, vascular injury, need for further surgery, need for skin grafting, chronic pain , chronic swelling, difficulty using the left arm and possibly amputation. He voiced his understanding this and signed a consent. Operative Findings: The superficial and deep musculature of the forearm was a healthy red appearing color, was bleeding, contracted when touched with electrocautery, and had a healthy consistency. There was no nonviable or necrotic muscle. The forearm was soft. There were no signs of deep infection. The operative wound measured 20.5 cm in length. 12 cm was closed without tension. A wound VAC was placed over the distal 8.5 cm of the wound and an incisional VAC was placed over the closed portion of the wound. Description of Procedure: The patient was then verified in preoperative holding and the correct left arm was marked with my initials. The patient was then brought back to the operating room by anesthesia. He was transferred onto the operating room table and a general anesthetic was administered. The VAC dressing was taken off of his arm. His arm was placed on an arm table. The patient's left arm was then prepped and draped in the standard sterile fashion. Prior to starting surgery timeout was performed identifying the correct patient, operative extremity, and procedure. I began by irrigating and debriding the wound. The wound measured 20.5 cm in length. 3 L of sterile saline was used to irrigate the wound using cystoscopy tubing and gravity. Nonviable subcutaneous tissue was sharply debrided with a knife. All of the visible muscle appeared healthy beefy red color, was bleeding , had normal consistency with healthy muscle, and contracted when touched with electrocautery. I measured the wound to be 20.5 cm. The proximal 12 cm of the wound was closed without undue tension. 2-0 Vicryl was used to reapproximate the subcu and the skin was closed with 3-0 nylon horizontal mattress stitches. The distal portion of the wound remained open was a 0.5 cm. A wound VAC sponge was placed over the distal open wound and cut to fit. Mastisol was placed around the incision and wound. Strips of Ioban were placed at the periphery of the wound followed by a large strip of Ioban over the VAC sponge. A hole was made and the pad was hooked up to continuous suction. An excellent seal was obtained. I verified that all instrument sponge, and sharp counts were correct. The drapes were taken down and a dressing consisting of web roll and an Del wrap was applied. The patient was awoken from his anesthetic and transferred to PACU via cart of the procedure well. Plan: At this point the patient is okay to discharge from the hospital from my standpoint. He will follow-up this Wednesday or in the office with Dr. Maksim Contreras for definitive wound management. We'll defer to Dr. Jeffrey regarding antibiotic duration, choice of antibiotic, and wrote of menstruation. He will likely need home VAC dressing changes.
[2016-07-06] MEDS: DEXTROSE 50%-WATER 50 ML SYRINGE IVP ONE ×2 (11:44→12:01)
[2016-07-06 11:50] LABS: Glucose,Whole Blood 53 mg/dL (75-99)
[2016-07-06 11:50] LABS: Glucose,Whole Blood 43 mg/dL (75-99)
[2016-07-06] MEDS: HYDROmorphone 1 MG/ML 1 ML SYRINGE IVP ONE ×4 (11:56→12:21)
[2016-07-06] MEDS ORDERED: ERGOCALCIFEROL 50,000 UNIT CAP PO SCH (12:00)
[2016-07-06 12:09] LABS: Glucose,Whole Blood 61 mg/dL (75-99)
--- NOTE | 2016-07-06 12:17 | P.PN ---
Subjective This is a 51-year-old patient of mine with past medical history for coronary artery disease status post 6 vessel CABG in 2006 with MAE to LAD, saphenous venous graft to the PDA, saphenous venous graft to the obtuse marginal one, radial artery to the obtuse marginal branch 2 and saphenous venous graft to the obtuse marginal 3 followed by heart catheterization with PCI and stent of the saphenous venous graft to the RCA in 2015 at which time he presented with non-ST elevated myocardial infarction. History of diabetes mellitus2 with diabetic polyneuropathy, hyperlipidemia, hypertension, hypertensive cardiovascular disease with left ventricular hypertrophy, asthma, sleep apnea on CPAP, chronic low back pain, chronic kidney disease, DVT in the past. Patient had injury to his left wrist area was not sure what actually happened to it. He went to my office and saw the nurse practitioner and he was sent to [facility] for evaluation and IV antibiotics. Patient underwent I&D in the emergency center and was then sent to Dr. Maksim Contreras. He underwent an incision and drainage of the left volar forearm abscess on July 02. During the night, patient states he was bleeding significantly and blood through his stress seen and came to [facility] emergency center for evaluation. The emergency department did local wound care and put several stitches in the forearm but the patient went home and developed increasing pain swelling and could not move his fingers and came back to the emergency center in the morning. His pain was a 10 out of 10. He had difficulty moving his fingers. He was diagnosed with post compartment syndrome and was taken to the OR by Dr. Shaver for a left volar forearm compartment fasciotomy and wound VAC was placed. Patient is now on the MedSurg floor and pain is currently controlled. Wound culture from [facility] was positive for MSSA. Consult placed with Dr. Jeffrey for antibiotic management. 07/04: Patient is sitting up in bed is complaining of increased pain in the left forearm, he is constipated quite a bit, he denies any chest pain, shortness breath, he has no abdominal pain, he has no nausea vomiting or diarrhea. He has a wound VAC at the site. 07/05: Patient is sitting up in bed, he is feeling more pain in the left upper extremity, he was seen earlier by orthopedic service, he continues to have a wound VAC in place, he continues to have his wound wrapped with an Del wrap, patient pain management was maintained on Dilaudid and Sibley, patient was not taking any of his Sibley yesterday he was advised to start taking Sibley along with the Dilaudid as needed. 07/06: Patient has undergone I&D of the left forearm and application of wound VAC with partial closure of complex left forearm wound with Dr. Shaver. Objective - Vital Signs Vital signs: Vital Signs Temp 97.4 F L 07/06/16 11:29 Pulse 65 07/06/16 11:44 Resp 16 07/06/16 11:44 BP 157/77 07/06/16 11:44 Pulse Ox 100 07/06/16 11:44 Intake & Output 07/05/16 07/06/16 07/06/16 18:59 06:59 18:59 Intake Total 750 220 851 Output Total 2100 700 710 Balance -1350 -480 141 Weight 83.915 kg 83.915 kg 83.915 kg Intake: IV 220 851 Lactated Ringers 1,000 ml 220 @ 20 mls/hr IV .Q24H [facility] Rx#:[id number] Intake, IV Titration 350 Amount DAPTOmycin 500 mg In 50 Sodium Chloride 0.9% 50 ml @ 100 mls/hr IV Q24H [facility] Rx#:[id number] Lactated Ringers 1,000 ml 300 @ 20 mls/hr IV .Q24H [facility] Rx#:[id number] Oral 400 Output: Urine 2100 700 700 Estimated Blood Loss 10 Other: Voiding Method Urinal Urinal Urinal # Voids 3 2 2 - Exam General appearance: Present: average body habitus, mild distress - EENT Eyes: Present: EOMI, PERRLA, scleral icterus, normal appearance. Absent: ptosis ENT: Present: hearing grossly normal, NA/AT, normal oropharynx. Absent: thrush Ears: bilateral: normal - Neck Neck: Present: normal ROM. Absent: lymphadenopathy, rigidity, stridor, thyromegaly Carotids: bilateral: upstroke normal Thyroid: bilateral: normal size - Respiratory Respiratory: bilateral: diminished, negative: dullness, rales, rhonchi, wheezing , prolonged expiration, prolonged inspiration - Cardiovascular Rhythm: regular Heart sounds: normal: S1, S2 Abnormal Heart Sounds: Present: systolic murmur. Absent: S3 Gallop, S4 Gallop - Gastrointestinal General gastrointestinal: Present: distended, normal bowel sounds, soft. Absent : splenomegaly, tenderness, umbilical hernia, ventral hernia - Integumentary Integumentary: Present: pale - Neurologic Neurologic: Present: CNII-XII intact - Musculoskeletal Musculoskeletal: Present: gait normal, generalized weakness, strength equal bilaterally - Psychiatric Psychiatric: Present: A&O x's 3, appropriate affect, intact judgment & insight - Labs CBC & Chem 7: 07/06/16 08:07 07/06/16 08:07 Labs: Abnormal Lab Results - Last 24 Hours (Table) 07/05/16 07/06/16 07/06/16 Range/Units 20:10 07:10 08:07 Hgb 12.5 L (13.0-17.5) gm/dL Hct 36.1 L (39.0-53.0) % Lymphocytes # 0.9 L (1.0-4.8) k/uL Glucose (74-99) mg/dL POC Glucose (mg/dL) 106 H 216 H (75-99) mg/dL Total Protein (6.3-8.2) g/dL Albumin (3.5-5.0) g/dL 07/06/16 07/06/16 07/06/16 Range/Units 08:07 09:28 11:40 Hgb (13.0-17.5) gm/dL Hct (39.0-53.0) % Lymphocytes # (1.0-4.8) k/uL Glucose 198 H (74-99) mg/dL POC Glucose (mg/dL) 137 H 53 L (75-99) mg/dL Total Protein 6.2 L (6.3-8.2) g/dL Albumin 3.4 L (3.5-5.0) g/dL 07/06/16 07/06/16 Range/Units 11:43 11:59 Hgb (13.0-17.5) gm/dL Hct (39.0-53.0) % Lymphocytes # (1.0-4.8) k/uL Glucose (74-99) mg/dL POC Glucose (mg/dL) 43 L 61 L (75-99) mg/dL Total Protein (6.3-8.2) g/dL Albumin (3.5-5.0) g/dL Assessment and Plan Plan: 1. Left volar forearm compartment syndrome status post patient to ar and wound VAC placement under the care of Dr. Shaver. Patient return to or on 07/06 and underwent I&D, application of VAC dressing, partial closure of complex left forearm wound. Continue current pain management. Incentive serology to reduce incidence of atelectasis and hospital-acquired pneumonia. DVT prophylaxis and GI prophylaxis. Consult with Dr. Jeffrey. Continue daptomycin. 2. History of coronary artery disease status post coronary artery bypass graft for 6 vessel disease with chronically occluded saphenous venous graft to the obtuse marginal branch and status post PCI of the saphenous graft to the RCA. Continue Plavix 75 mg daily, aspirin 325 mg daily, Lipitor is on hold, continue Lopressor 100 mg twice daily, nitroglycerin as needed. 3. Diabetes mellitus type 2 and diabetic polyneuropathy. Continue Lantus 27 units at bedtime, Humalog 15 units before supper, 8 units with breakfast and lunch. Continue metformin 1000 mg twice daily 4. Hypertension, hypertensive cardiovascular disease. Continue Catapres 0.1 mg twice daily, Lopressor 100 mg twice daily, losartan/hydrochlorothiazide 1 daily. 5. Hyperlipidemia. Lipitor on hold while on daptomycin. 6. Obstructive sleep apnea. Continue CPAP as per home settings. 7. Chronic kidney disease stage II. 8. Opioid-induced constipation. Start the patient on Senokot one tablet orally twice every day, milk of Magnesia 30 mL orally once every day as needed. 9. Increase activity. Discharge plan: Return home Impression and plan of care have been directed as dictated by the signing physician. Dipika Mendez nurse practitioner acting as scribe for signing physician.
[2016-07-06 12:22] LABS: Glucose,Whole Blood 127 mg/dL (75-99)
[2016-07-06] MEDS: cefTRIAXone 2,000 MG in SODIUM CHLORIDE 0.9% 100 ML IVPB SCH (13:22)
[2016-07-06 18:05] LABS: Glucose,Whole Blood 194 mg/dL (75-99)
[2016-07-06 20:32] LABS: Glucose,Whole Blood 185 mg/dL (75-99)
[2016-07-06] MEDS: INSULIN GLARGINE 100 UNIT/ML 10 ML VIAL SQ SCH (20:40)
[2016-07-06] MEDS: SENNOSIDES-DOCUSATE SODIUM 1 EACH TAB PO PRN (22:36)
[2016-07-07] MEDS: HEPARIN SODIUM,PORCINE 5,000 UNIT/ML 1 ML VIAL SQ SCH ×3 (00:38→15:48)
[2016-07-07] MEDS: HYDROmorphone 1 MG/ML 1 ML SYRINGE IVP PRN ×5 (02:53→21:43)
[2016-07-07 07:23] LABS: Glucose,Whole Blood 142 mg/dL (75-99)
[2016-07-07] MEDS: INSULIN LISPRO (humaLOG) 300 UNIT/3 ML VIAL SQ SCH ×7 (07:43→21:40)
[2016-07-07] MEDS: LOSARTAN-HCTZ 50-12.5 MG 1 EACH TAB PO SCH (07:45)
[2016-07-07] MEDS: METOPROLOL TARTRATE 50 MG TAB PO SCH ×2 (07:45→21:38)
[2016-07-07] MEDS: metFORMIN 500 MG TAB PO SCH ×2 (07:45→18:13)
[2016-07-07] MEDS: CLOPIDOGREL 75 MG TAB PO SCH (07:46)
[2016-07-07] MEDS: ASPIRIN 325 MG TAB PO SCH (07:46)
[2016-07-07] MEDS: cloNIDine HCL 0.1 MG TAB PO SCH ×2 (07:46→21:39)
[2016-07-07] MEDS: cefTRIAXone 2,000 MG in SODIUM CHLORIDE 0.9% 100 ML IVPB SCH (07:53)
[2016-07-07] MEDS: SENNOSIDES-DOCUSATE SODIUM 1 EACH TAB PO SCH ×2 (07:53→21:38)
[2016-07-07] MEDS ORDERED: HYDROcodone/APAP 7.5-325MG 1 EACH TAB PO PRN ×2 (08:41)
--- NOTE | 2016-07-07 09:08 | P.PN ---
Subjective Principal diagnosis: Status post left forearm fasciotomy This is a 51 year-old male post left forearm fasciotomy on 07/03/2016 and repeat I&D with partial wound closure yesterday by Dr. Shaver. The patient is also status post granuloma excision by Dr. Yobani Contreras on 07/02/2016. The patient was evaluated at the bedside today. The patient denies nausea, vomiting , abdominal pain, shortness of breath, and chest pain this morning. He states his pain is moderately controlled at this time. The patient is currently being set up for outpatient IV antibiotics. We are awaiting PICC line placement. Objective - Vital Signs Vital signs: Vital Signs Temp 97.4 F L 07/07/16 07:00 Pulse 78 07/07/16 07:00 Resp 16 07/07/16 07:00 BP 147/90 07/07/16 07:00 Pulse Ox 97 07/07/16 07:00 Intake & Output 07/06/16 07/07/16 07/07/16 18:59 06:59 18:59 Intake Total 1151 360 Output Total 1410 Balance -259 360 Weight 83.915 kg Intake: IV 1151 120 Lactated Ringers 1,000 ml 120 @ 20 mls/hr IV .Q24H [facility] Rx#:[id number] Oral 240 Output: Urine 1400 Estimated Blood Loss 10 Other: Voiding Method Urinal Urinal # Voids 2 2 - Exam The patient is in no acute distress, he is alert and oriented 3. Exam of the left upper extremity reveals a dressing with wound VAC attached to the left forearm and hand. The patient is able to wiggle his fingers but does have some stiffness and loss of range of motion. The patient does not have pain upon passive range of motion of the fingers. Sensation and circulatory status is intact. - Labs CBC & Chem 7: 07/06/16 08:07 07/06/16 08:07 Labs: Abnormal Lab Results - Last 24 Hours (Table) 07/06/16 07/06/16 07/06/16 Range/Units 08:07 09:28 11:40 Glucose 198 H (74-99) mg/dL POC Glucose (mg/dL) 137 H 53 L (75-99) mg/dL Total Protein 6.2 L (6.3-8.2) g/dL Albumin 3.4 L (3.5-5.0) g/dL 07/06/16 07/06/16 07/06/16 Range/Units 11:43 11:59 12:19 Glucose (74-99) mg/dL POC Glucose (mg/dL) 43 L 61 L 127 H (75-99) mg/dL Total Protein (6.3-8.2) g/dL Albumin (3.5-5.0) g/dL 07/06/16 07/06/16 07/07/16 Range/Units 18:02 20:30 07:13 Glucose (74-99) mg/dL POC Glucose (mg/dL) 194 H 185 H 142 H (75-99) mg/dL Total Protein (6.3-8.2) g/dL Albumin (3.5-5.0) g/dL Assessment and Plan (1) Postoperative compartment syndrome Status: Acute (2) History of fasciotomy Status: Acute Plan: The clinical findings are discussed with the patient. We are waiting PICC line placement. IV antibiotics are currently being set up on an outpatient basis. Patient will continue with wound VAC upon discharge. The patient will follow- up with Dr. Yobani Contreras at the office this week for further monitoring. Once arrangements have been made, the patient may be discharged home today. We' ll continue to follow patient closely.
[2016-07-07] MEDS: LACTATED RINGERS 1,000 ML IV SCH ×2 (09:14)
[2016-07-07 11:38] LABS: Glucose,Whole Blood 139 mg/dL (75-99)
[2016-07-07] MEDS ORDERED: LIDOCAINE 2% INJ 20 MG/ML SQ ONE (13:27)
--- NOTE | 2016-07-07 13:59 | IR ---
PICC LINE PLACEMENT: HISTORY: Infection requiring long-term antibiotic therapy PROCEDURE: Ultrasound and fluoroscopic guidance of PICC line placement. COMPLICATIONS: None ANESTHESIA: 1. 1% Lidocaine locally. FINDINGS/TECHNIQUE: The procedure was explained to the patient. The risks, complications, benefits and alternatives were discussed and any questions were answered. Informed consent was obtained. The patient was placed supine on the fluoroscopic table and prepped and draped in the usual sterile fash ion. Utilizing a 21 gauge needle and sonographic and fluoroscopic guidance, access in the right bas ilic vein vein was achieved and there is placement of a 0.018 guidewire. The vein is patent. A 4-F sheath was placed over the guidewire. The guidewire and dilator were removed and a 4-F. PICC line wa s placed through the sheath with the tip at the level of the SVC. The sheath was removed, the cathet er was flushed and sutured into position. The patient was stable throughout the procedure and remain ed stable upon discharge from the Department of Radiology. The vein puncture was patent under ultrasound. A baig scale image was obtained to document patency of the vein punctured. All elements of the maximal barrier technique were utilized. FLUOROSCOPY TIME: 0.2 minute IMPRESSION: Successful PICC line placement under ultrasound and fluoroscopic guidance.
--- NOTE | 2016-07-07 14:43 | P.PN ---
Subjective This is a 51-year-old patient of mine with past medical history for coronary artery disease status post 6 vessel CABG in 2006 with MAE to LAD, saphenous venous graft to the PDA, saphenous venous graft to the obtuse marginal one, radial artery to the obtuse marginal branch 2 and saphenous venous graft to the obtuse marginal 3 followed by heart catheterization with PCI and stent of the saphenous venous graft to the RCA in 2015 at which time he presented with non-ST elevated myocardial infarction. History of diabetes mellitus2 with diabetic polyneuropathy, hyperlipidemia, hypertension, hypertensive cardiovascular disease with left ventricular hypertrophy, asthma, sleep apnea on CPAP, chronic low back pain, chronic kidney disease, DVT in the past. Patient had injury to his left wrist area was not sure what actually happened to it. He went to my office and saw the nurse practitioner and he was sent to [facility] for evaluation and IV antibiotics. Patient underwent I&D in the emergency center and was then sent to Dr. Maksim Contreras. He underwent an incision and drainage of the left volar forearm abscess on July 02. During the night, patient states he was bleeding significantly and blood through his stress seen and came to [facility] emergency center for evaluation. The emergency department did local wound care and put several stitches in the forearm but the patient went home and developed increasing pain swelling and could not move his fingers and came back to the emergency center in the morning. His pain was a 10 out of 10. He had difficulty moving his fingers. He was diagnosed with post compartment syndrome and was taken to the OR by Dr. Shaver for a left volar forearm compartment fasciotomy and wound VAC was placed. Patient is now on the MedSurg floor and pain is currently controlled. Wound culture from [facility] was positive for MSSA. Consult placed with Dr. Jeffrey for antibiotic management. 07/04: Patient is sitting up in bed is complaining of increased pain in the left forearm, he is constipated quite a bit, he denies any chest pain, shortness breath, he has no abdominal pain, he has no nausea vomiting or diarrhea. He has a wound VAC at the site. 07/05: Patient is sitting up in bed, he is feeling more pain in the left upper extremity, he was seen earlier by orthopedic service, he continues to have a wound VAC in place, he continues to have his wound wrapped with an Del wrap, patient pain management was maintained on Dilaudid and Warners, patient was not taking any of his Warners yesterday he was advised to start taking Warners along with the Dilaudid as needed. 07/06: Patient has undergone I&D of the left forearm and application of wound VAC with partial closure of complex left forearm wound with Dr. Shaver. 07/07: Patient wound VAC dressing removed this morning it was very painful and continues to have pain management issues at this time. Dr. Jeffrey has changed antibiotics to ceftriaxone with plan for patient to come into [facility] for IV antibiotics for the next 2 weeks at least. Anticipate he will be ready for discharge by tomorrow. PICC line should be placed today. Objective - Vital Signs Vital signs: Vital Signs Temp 97.4 F L 07/07/16 07:00 Pulse 78 07/07/16 07:00 Resp 16 07/07/16 07:00 BP 147/90 07/07/16 07:00 Pulse Ox 97 07/07/16 07:00 Intake & Output 07/06/16 07/07/16 07/07/16 18:59 06:59 18:59 Intake Total 1151 360 Output Total 1410 10 Balance -259 360 -10 Weight 83.915 kg Intake: IV 1151 120 Lactated Ringers 1,000 ml 120 @ 20 mls/hr IV .Q24H [facility] Rx#:[id number] Oral 240 Output: Drainage 10 Left Lower Arm 10 Urine 1400 Estimated Blood Loss 10 Other: Voiding Method Urinal Urinal Urinal # Voids 2 2 - Exam General appearance: Present: average body habitus, mild distress - EENT Eyes: Present: EOMI, PERRLA, scleral icterus, normal appearance. Absent: ptosis ENT: Present: hearing grossly normal, NA/AT, normal oropharynx. Absent: thrush Ears: bilateral: normal - Neck Neck: Present: normal ROM. Absent: lymphadenopathy, rigidity, stridor, thyromegaly Carotids: bilateral: upstroke normal Thyroid: bilateral: normal size - Respiratory Respiratory: bilateral: diminished, negative: dullness, rales, rhonchi, wheezing , prolonged expiration, prolonged inspiration - Cardiovascular Rhythm: regular Heart sounds: normal: S1, S2 Abnormal Heart Sounds: Present: systolic murmur. Absent: S3 Gallop, S4 Gallop - Gastrointestinal General gastrointestinal: Present: distended, normal bowel sounds, soft. Absent : splenomegaly, tenderness, umbilical hernia, ventral hernia - Integumentary Integumentary: Present: pale - Neurologic Neurologic: Present: CNII-XII intact - Musculoskeletal Musculoskeletal: Present: gait normal, generalized weakness, strength equal bilaterally - Psychiatric Psychiatric: Present: A&O x's 3, appropriate affect, intact judgment & insight - Labs CBC & Chem 7: 07/06/16 08:07 07/06/16 08:07 Labs: Abnormal Lab Results - Last 24 Hours (Table) 07/06/16 07/06/16 07/07/16 Range/Units 18:02 20:30 07:13 POC Glucose (mg/dL) 194 H 185 H 142 H (75-99) mg/dL 07/07/16 Range/Units 11:36 POC Glucose (mg/dL) 139 H (75-99) mg/dL Assessment and Plan Plan: 1. Left volar forearm compartment syndrome status post patient to tx and wound VAC placement under the care of Dr. Shaver. Patient return to or on 07/06 and underwent I&D, application of VAC dressing, partial closure of complex left forearm wound. Continue current pain management. Incentive serology to reduce incidence of atelectasis and hospital-acquired pneumonia. DVT prophylaxis and GI prophylaxis. Consult with Dr. Jeffrey. Continue ceftriaxone. 2. History of coronary artery disease status post coronary artery bypass graft for 6 vessel disease with chronically occluded saphenous venous graft to the obtuse marginal branch and status post PCI of the saphenous graft to the RCA. Continue Plavix 75 mg daily, aspirin 325 mg daily, Lipitor is on hold, continue Lopressor 100 mg twice daily, nitroglycerin as needed. 3. Diabetes mellitus type 2 and diabetic polyneuropathy. Continue Lantus 27 units at bedtime, Humalog 15 units before supper, 8 units with breakfast and lunch. Continue metformin 1000 mg twice daily 4. Hypertension, hypertensive cardiovascular disease. Continue Catapres 0.1 mg twice daily, Lopressor 100 mg twice daily, losartan/hydrochlorothiazide 1 daily. 5. Hyperlipidemia. Lipitor on hold while on daptomycin. 6. Obstructive sleep apnea. Continue CPAP as per home settings. 7. Chronic kidney disease stage II. 8. Opioid-induced constipation. Start the patient on Senokot one tablet orally twice every day, milk of Magnesia 30 mL orally once every day as needed. 9. Increase activity. Discharge plan: Return home Impression and plan of care have been directed as dictated by the signing physician. Dipika Mendez nurse practitioner acting as scribe for signing physician.
--- NOTE | 2016-07-07 15:21 | CDI ---
In responding to this query, please exercise your independent professional judgment. The [facility] Coding Staff and Clinical Documentation Specialists appreciate your assistance in clarifying documentation, maintaining compliance with coding guidelines, accurately documenting patients condition and capturing severity of illness. The fact that a question is asked does not imply that any particular answer is desired or expected. Communication forms are a method of clarifying documentation and are not made part of the Legal Health Record. Thank you in advance for your clarification. Last Revision, December 2014 Ceci Altamirano [address] [facility] [place] [address] Documentation Clarification Form Date: 07/07/2016 2:52:00 PM From: Sonali Strickland Admit Date: 07/03/2016 6:31:00 AM Patient Name: Lakhwinder Hirsch Visit Number: [id number] Discharge Date: Dr. Lakhwinder Shaver Per your progress notes/operative note, a debridement was performed on the left forearm. History/Risk Factors: Postop left forearm compartment syndrome status post volar compartment fasciotomy, Diabetes Mellitus type 2, Coronary artery disease. Clinical Indicators: Patient had a left forearm vein graft harvest. He was post I&D went to ED with bleeding and was treated with wound care and stitches into the forearm. He returned with increasing pain, swelling left forearm. Description of Procedure: Nonviable subcutaneous tissue was sharply debrided with a knife. Treatment: Left volar forearm compartment fasciotomy IV Rocephin, Pain Management Monitor Labs Five elements required for accurate and compliant documentation of a debridement : 1. Technique used (e.g., excisional, excised, cutting, etc.) 2. Instrument(s) used (e.g., scalpel, curette, etc.) 3. Nature of the tissue removed (e.g., necrotic, devitalized tissues, non- viable tissue, etc.) 4. Appearance and size of the wound (e.g., down to fresh bleeding tissue, 7cm x 10cm, etc.) 5. Depth of the debridement* (e.g., skin, subcutaneous tissue, fascia, muscle , bone, etc.) In order to capture the severity of condition and code the appropriate procedure could you please document the following: Excisional debridement (the removal of necrotic, devitalized tissue or slough by means of cutting away of tissue) Non-excisional debridement (the removal of necrotic, devitalized tissue or slough by means of flushing, brushing, or washing. (Irrigation) Other; with explanation for clinical findings Unable to determine (no explanation for clinical findings) Please document in your progress notes and discharge summary in order to capture severity of illness and risk of mortality. Include clinical findings that support your diagnosis. FYI: Press F11 to launch patient chart. Place X here if this finding has no clinical significance, is not applicable or if you are not able to provide any additional documentation. TROY
[2016-07-07] MEDS: HYDROcodone/APAP 10-325MG 1 EACH TAB PO PRN (16:32)
[2016-07-07 17:51] LABS: Glucose,Whole Blood 111 mg/dL (75-99)
[2016-07-07 21:12] LABS: Glucose,Whole Blood 165 mg/dL (75-99)
[2016-07-07] MEDS: INSULIN GLARGINE 100 UNIT/ML 10 ML VIAL SQ SCH (21:39)
--- NOTE | 2016-07-07 23:19 | P.PN ---
Subjective Principal diagnosis: Left arm abscess, compartment syndrome This is a 51-year-old male patient. He had injury to his left wrist area was not sure what actually happened to it. He went to Dr. Montesinos's office and saw the nurse practitioner and he was sent to [facility] for evaluation and IV antibiotics. Patient underwent I&D in the emergency center and was then sent to Dr. Maksim Contreras. He underwent an incision and drainage of the left volar forearm abscess on July 02. During the night, patient states he was bleeding significantly and blood through his stress seen and came to [facility] emergency center for evaluation. The emergency department did local wound care and put several stitches in the forearm but the patient went home and developed increasing pain swelling and could not move his fingers and came back to the emergency center in the morning. His pain was a 10 out of 10. He had difficulty moving his fingers. He was diagnosed with post compartment syndrome and was taken to the OR by Dr. Shaver for a left volar forearm compartment fasciotomy and wound VAC was placed. Patient is now on the MedSur floor and pain is currently controlled. Wound culture from [facility] was positive for MSSA. And a dressing change performed today. He did not feel well directly after. Doing much better now. No further fevers or chills. Arrangements for outpatient treatment are in process. Objective - Vital Signs Vital signs: Vital Signs Temp 97.4 F L 07/07/16 15:00 Pulse 79 07/07/16 15:00 Resp 16 07/07/16 15:00 BP 135/79 07/07/16 15:00 Pulse Ox 99 07/07/16 15:00 Intake & Output 07/07/16 07/07/16 07/08/16 06:59 18:59 06:59 Intake Total 360 Output Total 10 Balance 360 -10 Intake: IV 120 Lactated Ringers 1,000 ml 120 @ 20 mls/hr IV .Q24H [facility] Rx#:[id number] Oral 240 Output: Drainage 10 Left Lower Arm 10 Other: Voiding Method Urinal Urinal # Voids 2 1 - Exam Gen: This is a 51-year-old male who is sitting up in bed and appears to be in no acute distress. Left arm is elevated on pillows. HEENT: Head is atraumatic, normocephalic. Pupils equal, round. Sclerae is anicteric. Conjunctiva pink. Mucous membranes of the mouth are somewhat dry. NECK: Supple. No JVD. No lymphadenopathy. No thyromegaly. LUNGS: Clear to auscultation. No wheezes or rhonchi. No intercostal retractions. HEART: Regular rate and rhythm. No murmur. ABDOMEN: Soft. Bowel sounds are present. No masses. No tenderness. EXTREMITIES: No pedal edema. No calf tenderness. Please see the nursing photography regarding the large abscess and surgical wound to the left forearm. NEUROLOGICAL: Patient is awake, alert and oriented x3. Cranial nerves 2 through 12 are grossly intac - Labs CBC & Chem 7: 07/06/16 08:07 07/06/16 08:07 Labs: Abnormal Lab Results - Last 24 Hours (Table) 07/07/16 07/07/16 07/07/16 Range/Units 07:13 11:36 17:45 POC Glucose (mg/dL) 142 H 139 H 111 H (75-99) mg/dL 07/07/16 Range/Units 21:01 POC Glucose (mg/dL) 165 H (75-99) mg/dL Laboratory Results WBC 5.5 k/uL (3.8-10.6) 07/06/16 08:07 RBC 4.37 m/uL (4.30-5.90) 07/06/16 08:07 Hgb 12.5 gm/dL (13.0-17.5) L 07/06/16 08:07 Hct 36.1 % (39.0-53.0) L 07/06/16 08:07 MCV 82.6 fL (80.0-100.0) 07/06/16 08:07 MCH 28.7 pg (25.0-35.0) 07/06/16 08:07 MCHC 34.7 g/dL (31.0-37.0) 07/06/16 08:07 RDW 13.5 % (11.5-15.5) 07/06/16 08:07 Plt Count 180 k/uL (150-450) 07/06/16 08:07 Neutrophils % 66 % 07/06/16 08:07 Lymphocytes % 16 % 07/06/16 08:07 Monocytes % 10 % 07/06/16 08:07 Eosinophils % 4 % 07/06/16 08:07 Basophils % 1 % 07/06/16 08:07 Neutrophils # 3.7 k/uL (1.3-7.7) 07/06/16 08:07 Lymphocytes # 0.9 k/uL (1.0-4.8) L 07/06/16 08:07 Monocytes # 0.6 k/uL (0-1.0) 07/06/16 08:07 Eosinophils # 0.2 k/uL (0-0.7) 07/06/16 08:07 Basophils # 0.0 k/uL (0-0.2) 07/06/16 08:07 PT 10.5 sec (9.0-12.0) 07/03/16 05:55 INR 1.0 (<1.1) 07/03/16 05:55 APTT 21.0 sec (22.0-30.0) L 07/03/16 05:55 Sodium 139 mmol/L (137-145) 07/06/16 08:07 Potassium 3.9 mmol/L (3.5-5.1) 07/06/16 08:07 Chloride 103 mmol/L (98-107) 07/06/16 08:07 Carbon Dioxide 26 mmol/L (22-30) 07/06/16 08:07 Anion Gap 10 mmol/L 07/06/16 08:07 BUN 17 mg/dL (9-20) 07/06/16 08:07 Creatinine 0.81 mg/dL (0.66-1.25) 07/06/16 08:07 Est GFR (MDRD) Af Amer >60 (>60 ml/min/1.73 sqM) 07/06/16 08:07 Est GFR (MDRD) Non-Af >60 (>60 ml/min/1.73 sqM) 07/06/16 08:07 Glucose 198 mg/dL (74-99) H 07/06/16 08:07 POC Glucose (mg/dL) 165 mg/dL (75-99) H 07/07/16 21:01 POC Glu [facility] Tender ID Kitty Molina 07/07/16 21:01 Calcium 8.5 mg/dL (8.4-10.2) 05/15/17 08:07 Total Bilirubin 0.5 mg/dL (0.2-1.3) 07/06/16 08:07 AST 22 U/L (17-59) 07/06/16 08:07 ALT 25 U/L (21-72) 07/06/16 08:07 Alkaline Phosphatase 84 U/L (38-126) 07/06/16 08:07 Total Protein 6.2 g/dL (6.3-8.2) L 07/06/16 08:07 Albumin 3.4 g/dL (3.5-5.0) L 07/06/16 08:07 Assessment and Plan (1) Compartment syndrome Status: Acute (2) Abscess of left arm Narrative/Plan: As noted pleasant 51-year-old gentleman who was recently hospitalized an outside hospital. He had an injury and developed evidence of an MSSA abscess. Some drainage occurred as well as treatment with intravenous antibiotic therapy , daptomycin was being utilized because of his difficulty with other antibiotics. However at discharge she was doing well. MSSA was isolated and he was discharged home on oral cephalosporin. He did well for about a week and then has significant worsening of his symptoms. He was seen by Dr. Montano in the outpatient setting and then referred to orthopedic surgery. A significant abscess was seen and was taken to the operating room for incision and drainage. Over the enhance significant worsening and presented back to the hospital there is evidence of a compartment syndrome and to the left volar forearm was taken to the operating was noted for the drainage and VAC placement. Patient is showing some improvement at this time. Pain is definitely better controlled. It has improved motion of the hand. He is denying further fever, chills or rigors. With this level of infection will need outpatient intravenous antibiotic therapy. Final choices as well as ceftriaxone 2 g IV piggyback daily. Will come to the outpatient infusion center. Wound care will be with negative pressure therapy which has been arranged for the home. Had some pain of the dressing changed today and likely will go home in the morning. Status: Acute
[2016-07-08] MEDS: HYDROcodone/APAP 10-325MG 1 EACH TAB PO PRN ×2 (00:06→22:23)
[2016-07-08] MEDS: HEPARIN SODIUM,PORCINE 5,000 UNIT/ML 1 ML VIAL SQ SCH ×3 (00:06→17:07)
[2016-07-08] MEDS: ATORVASTATIN 80 MG TAB PO SCH ×2 (00:38→22:25)
[2016-07-08] MEDS: HYDROmorphone 1 MG/ML 1 ML SYRINGE IVP PRN ×5 (04:53→20:33)
[2016-07-08 07:26] LABS: Glucose,Whole Blood 119 mg/dL (75-99)
[2016-07-08] MEDS: INSULIN LISPRO (humaLOG) 300 UNIT/3 ML VIAL SQ SCH ×7 (08:23→22:25)
[2016-07-08] MEDS: METOPROLOL TARTRATE 50 MG TAB PO SCH ×2 (08:43→22:24)
[2016-07-08] MEDS: LOSARTAN-HCTZ 50-12.5 MG 1 EACH TAB PO SCH (08:43)
[2016-07-08] MEDS: cefTRIAXone 2,000 MG in SODIUM CHLORIDE 0.9% 100 ML IVPB SCH (08:43)
[2016-07-08] MEDS: SENNOSIDES-DOCUSATE SODIUM 1 EACH TAB PO SCH ×2 (08:44→23:01)
[2016-07-08] MEDS: cloNIDine HCL 0.1 MG TAB PO SCH ×2 (08:44→22:25)
[2016-07-08] MEDS: metFORMIN 500 MG TAB PO SCH ×2 (08:44→18:02)
[2016-07-08] MEDS: ASPIRIN 325 MG TAB PO SCH (08:44)
[2016-07-08] MEDS: CLOPIDOGREL 75 MG TAB PO SCH (08:44)
--- NOTE | 2016-07-08 08:57 | P.PN ---
Subjective Principal diagnosis: Status post left forearm fasciotomy This is a 51 year-old male post left forearm fasciotomy on 07/03/2016 and repeat I&D with partial wound closure on by Dr. Shaver. The patient is also status post granuloma excision by Dr. Yobani Contreras on 07/02/2016. The patient was evaluated at the bedside today. The patient denies nausea, vomiting , abdominal pain, shortness of breath, and chest pain this morning. He states his pain is moderately controlled at this time. The patient had the PICC line placed yesterday. The wound vac is currently off due to the need for wound measurements yesterday for the wound vac order. Objective - Vital Signs Vital signs: Vital Signs Temp 97.4 F L 07/08/16 07:00 Pulse 78 07/08/16 07:00 Resp 16 07/08/16 07:00 BP 177/101 07/08/16 07:00 Pulse Ox 96 07/08/16 07:00 Intake & Output 07/07/16 07/08/16 07/08/16 18:59 06:59 18:59 Intake Total 480 Output Total 10 Balance -10 480 Intake: Oral 480 Output: Drainage 10 Left Lower Arm 10 Other: Voiding Method Urinal Urinal # Voids 1 2 - Exam The patient is in no acute distress, he is alert and oriented 3. Exam of the left upper extremity reveals a dressing that is clean, dry, and intact to the left forearm and hand. The patient is able to wiggle his fingers but does have some stiffness and loss of range of motion. The patient does not have pain upon passive range of motion of the fingers. Sensation and circulatory status is intact. - Labs CBC & Chem 7: 07/06/16 08:07 07/06/16 08:07 Labs: Abnormal Lab Results - Last 24 Hours (Table) 07/07/16 07/07/16 07/07/16 Range/Units 11:36 17:45 21:01 POC Glucose (mg/dL) 139 H 111 H 165 H (75-99) mg/dL 07/08/16 Range/Units 07:25 POC Glucose (mg/dL) 119 H (75-99) mg/dL Assessment and Plan (1) Postoperative compartment syndrome Status: Acute (2) History of fasciotomy Status: Acute Plan: The clinical findings are discussed with the patient. IV antibiotics are currently being set up on an outpatient basis. Patient will continue with wound VAC upon discharge. The patient will follow-up with Dr. Yobani Contreras at the office early next week for further monitoring. Once arrangements have been made, the patient may be discharged home today. We'll continue to follow patient closely.
[2016-07-08] MEDS: LACTATED RINGERS 1,000 ML IV SCH (08:58)
[2016-07-08 11:44] LABS: Glucose,Whole Blood 245 mg/dL (75-99)
--- NOTE | 2016-07-08 15:40 | P.PN ---
Subjective This is a 51-year-old patient of mine with past medical history for coronary artery disease status post 6 vessel CABG in 2006 with MAE to LAD, saphenous venous graft to the PDA, saphenous venous graft to the obtuse marginal one, radial artery to the obtuse marginal branch 2 and saphenous venous graft to the obtuse marginal 3 followed by heart catheterization with PCI and stent of the saphenous venous graft to the RCA in 2015 at which time he presented with non-ST elevated myocardial infarction. History of diabetes mellitus2 with diabetic polyneuropathy, hyperlipidemia, hypertension, hypertensive cardiovascular disease with left ventricular hypertrophy, asthma, sleep apnea on CPAP, chronic low back pain, chronic kidney disease, DVT in the past. Patient had injury to his left wrist area was not sure what actually happened to it. He went to my office and saw the nurse practitioner and he was sent to [facility] for evaluation and IV antibiotics. Patient underwent I&D in the emergency center and was then sent to Dr. Maksim Contreras. He underwent an incision and drainage of the left volar forearm abscess on July 02. During the night, patient states he was bleeding significantly and blood through his stress seen and came to [facility] emergency center for evaluation. The emergency department did local wound care and put several stitches in the forearm but the patient went home and developed increasing pain swelling and could not move his fingers and came back to the emergency center in the morning. His pain was a 10 out of 10. He had difficulty moving his fingers. He was diagnosed with post compartment syndrome and was taken to the OR by Dr. Shaver for a left volar forearm compartment fasciotomy and wound VAC was placed. Patient is now on the MedSurg floor and pain is currently controlled. Wound culture from [facility] was positive for MSSA. Consult placed with Dr. Jeffrey for antibiotic management. 07/04: Patient is sitting up in bed is complaining of increased pain in the left forearm, he is constipated quite a bit, he denies any chest pain, shortness breath, he has no abdominal pain, he has no nausea vomiting or diarrhea. He has a wound VAC at the site. 07/05: Patient is sitting up in bed, he is feeling more pain in the left upper extremity, he was seen earlier by orthopedic service, he continues to have a wound VAC in place, he continues to have his wound wrapped with an Del wrap, patient pain management was maintained on Dilaudid and Hitchcock, patient was not taking any of his Hitchcock yesterday he was advised to start taking Hitchcock along with the Dilaudid as needed. 07/06: Patient has undergone I&D of the left forearm and application of wound VAC with partial closure of complex left forearm wound with Dr. Shaver. 07/07: Patient wound VAC dressing removed this morning it was very painful and continues to have pain management issues at this time. Dr. Jeffrey has changed antibiotics to ceftriaxone with plan for patient to come into [facility] for IV antibiotics for the next 2 weeks at least. Anticipate he will be ready for discharge by tomorrow. PICC line should be placed today. 07/08: Patient is complaining of a rash to his right arm due to tape at the PICC line area. He still complains of significant pain to the left arm and doesn't feel like it's getting any better. He is currently on ceftriaxone with plan for treatment at the [facility]. Blood sugars have been running between 111 and 245. Anticipate discharge by tomorrow. Objective - Vital Signs Vital signs: Vital Signs Temp 97.4 F L 07/08/16 07:00 Pulse 78 07/08/16 07:00 Resp 16 07/08/16 07:00 BP 177/101 07/08/16 07:00 Pulse Ox 96 07/08/16 07:00 Intake & Output 07/07/16 07/08/16 07/08/16 18:59 06:59 18:59 Intake Total 480 Output Total 10 Balance -10 480 Intake: Oral 480 Output: Drainage 10 Left Lower Arm 10 Other: Voiding Method Urinal Urinal # Voids 1 2 - Exam General appearance: Present: average body habitus, mild distress - EENT Eyes: Present: EOMI, PERRLA, scleral icterus, normal appearance. Absent: ptosis ENT: Present: hearing grossly normal, NA/AT, normal oropharynx. Absent: thrush Ears: bilateral: normal - Neck Neck: Present: normal ROM. Absent: lymphadenopathy, rigidity, stridor, thyromegaly Carotids: bilateral: upstroke normal Thyroid: bilateral: normal size - Respiratory Respiratory: bilateral: diminished, negative: dullness, rales, rhonchi, wheezing , prolonged expiration, prolonged inspiration - Cardiovascular Rhythm: regular Heart sounds: normal: S1, S2 Abnormal Heart Sounds: Present: systolic murmur. Absent: S3 Gallop, S4 Gallop - Gastrointestinal General gastrointestinal: Present: distended, normal bowel sounds, soft. Absent : splenomegaly, tenderness, umbilical hernia, ventral hernia - Integumentary Integumentary: Present: pale - Neurologic Neurologic: Present: CNII-XII intact - Musculoskeletal Musculoskeletal: Present: gait normal, generalized weakness, strength equal bilaterally - Psychiatric Psychiatric: Present: A&O x's 3, appropriate affect, intact judgment & insight - Labs CBC & Chem 7: 07/06/16 08:07 07/06/16 08:07 Labs: Abnormal Lab Results - Last 24 Hours (Table) 07/07/16 07/07/16 07/07/16 Range/Units 11:36 17:45 21:01 POC Glucose (mg/dL) 139 H 111 H 165 H (75-99) mg/dL 07/08/16 Range/Units 07:25 POC Glucose (mg/dL) 119 H (75-99) mg/dL Assessment and Plan Plan: 1. Left volar forearm compartment syndrome status post patient to pr and wound VAC placement under the care of Dr. Shaver. Patient return to or on 07/06 and underwent I&D, application of VAC dressing, partial closure of complex left forearm wound. Continue current pain management. Incentive serology to reduce incidence of atelectasis and hospital-acquired pneumonia. DVT prophylaxis and GI prophylaxis. Consult with Dr. Jeffrey. Continue ceftriaxone. 2. History of coronary artery disease status post coronary artery bypass graft for 6 vessel disease with chronically occluded saphenous venous graft to the obtuse marginal branch and status post PCI of the saphenous graft to the RCA. Continue Plavix 75 mg daily, aspirin 325 mg daily, Lipitor is on hold, continue Lopressor 100 mg twice daily, nitroglycerin as needed. 3. Diabetes mellitus type 2 and diabetic polyneuropathy. Continue Lantus 27 units at bedtime, Humalog 15 units before supper, 8 units with breakfast and lunch. Continue metformin 1000 mg twice daily 4. Hypertension, hypertensive cardiovascular disease. Continue Catapres 0.1 mg twice daily, Lopressor 100 mg twice daily, losartan/hydrochlorothiazide 1 daily. 5. Hyperlipidemia. Lipitor on hold while on daptomycin. 6. Obstructive sleep apnea. Continue CPAP as per home settings. 7. Chronic kidney disease stage II. 8. Opioid-induced constipation. Start the patient on Senokot one tablet orally twice every day, milk of Magnesia 30 mL orally once every day as needed. 9. Increase activity. Discharge plan: Return home with home care as well as outpatient IV antibiotics through the [facility] Impression and plan of care have been directed as dictated by the signing physician. Dipika Mendez nurse practitioner acting as scribe for signing physician.
[2016-07-08 17:24] LABS: Glucose,Whole Blood 99 mg/dL (75-99)
[2016-07-08 20:42] LABS: Glucose,Whole Blood 62 mg/dL (75-99)
[2016-07-08 22:00] LABS: Glucose,Whole Blood 73 mg/dL (75-99)
[2016-07-08] MEDS ORDERED: INSULIN GLARGINE 100 UNIT/ML 10 ML VIAL SQ SCH (22:33)
[2016-07-08 22:35] LABS: Glucose,Whole Blood 90 mg/dL (75-99)
[2016-07-08] MEDS: INSULIN GLARGINE 100 UNIT/ML 10 ML VIAL SQ SCH (22:41)
[2016-07-08] MEDS ORDERED: INSULIN GLARGINE 100 UNIT/ML 10 ML VIAL SQ ONE (22:47)
[2016-07-08] MEDS: SENNOSIDES-DOCUSATE SODIUM 1 EACH TAB PO PRN (23:00)
--- NOTE | 2016-07-08 23:42 | P.PN ---
Subjective Principal diagnosis: Left arm abscess, compartment syndrome This is a 51-year-old male patient. He had injury to his left wrist area was not sure what actually happened to it. He went to Dr. Montesinos's office and saw the nurse practitioner and he was sent to [facility] for evaluation and IV antibiotics. Patient underwent I&D in the emergency center and was then sent to Dr. Maksim Contreras. He underwent an incision and drainage of the left volar forearm abscess on July 02. During the night, patient states he was bleeding significantly and blood through his stress seen and came to [facility] emergency center for evaluation. The emergency department did local wound care and put several stitches in the forearm but the patient went home and developed increasing pain swelling and could not move his fingers and came back to the emergency center in the morning. His pain was a 10 out of 10. He had difficulty moving his fingers. He was diagnosed with post compartment syndrome and was taken to the OR by Dr. Shaver for a left volar forearm compartment fasciotomy and wound VAC was placed. Patient is now on the MedSur floor and pain is currently controlled. Wound culture from [facility] was positive for MSSA. Dressing change occurs with the nurse and observer. There is a large exposed tendon. Purulence is resolved. Swelling to the arm is improved. Pain is improved. Is having some difficulty with the right upper extremity. A pressure dressing was applied and is developed some blisters from the tape that was used. Objective - Vital Signs Vital signs: Vital Signs Temp 97.4 F L 07/08/16 15:00 Pulse 79 07/08/16 16:00 Resp 16 07/08/16 16:00 BP 145/67 07/08/16 15:00 Pulse Ox 97 07/08/16 15:00 Intake & Output 07/08/16 07/08/16 07/09/16 06:59 18:59 06:59 Intake Total 480 500 Output Total 700 Balance 480 -200 Weight 83.915 kg Intake: IV 160 Lactated Ringers 1,000 ml 160 @ 20 mls/hr IV .Q24H INDERJIT Rx#:[id number] Intake, IV Titration 100 Amount cefTRIAXone 2,000 mg In 100 Sodium Chloride 0.9% 100 ml @ 100 mls/hr IVPB Q24HR INDERJIT Rx#:[id number] Oral 480 240 Output: Urine 700 Other: Voiding Method Urinal Urinal # Voids 2 3 - Exam Gen: This is a 51-year-old male who is sitting up in bed and appears to be in no acute distress. Left arm is elevated on pillows. HEENT: Head is atraumatic, normocephalic. Pupils equal, round. Sclerae is anicteric. Conjunctiva pink. Mucous membranes of the mouth are somewhat dry. NECK: Supple. No JVD. No lymphadenopathy. No thyromegaly. LUNGS: Clear to auscultation. No wheezes or rhonchi. No intercostal retractions. HEART: Regular rate and rhythm. No murmur. ABDOMEN: Soft. Bowel sounds are present. No masses. No tenderness. EXTREMITIES: No pedal edema. No calf tenderness. Please see the nursing photography regarding the large abscess and surgical wound to the left forearm. NEUROLOGICAL: Patient is awake, alert and oriented x3. Cranial nerves 2 through 12 are grossly intac Left upper extremity reveals evidence of the extensive wound from the recent fasciotomy. The open area which is distal on the volar aspect of the forearm is evidence of a large segment of tendon that exposed. This is covered with Vaseline gauze and then saline moistened gauze and wrap. Some blistering is noted on the right upper arm where the pressure dressing was in place no cellulitis is noted. - Labs CBC & Chem 7: 07/06/16 08:07 07/06/16 08:07 Labs: Abnormal Lab Results - Last 24 Hours (Table) 07/08/16 07/08/16 07/08/16 Range/Units 07:25 11:41 20:41 POC Glucose (mg/dL) 119 H 245 H 62 L (75-99) mg/dL 07/08/16 Range/Units 21:58 POC Glucose (mg/dL) 73 L (75-99) mg/dL Laboratory Results WBC 5.5 k/uL (3.8-10.6) 07/06/16 08:07 RBC 4.37 m/uL (4.30-5.90) 07/06/16 08:07 Hgb 12.5 gm/dL (13.0-17.5) L 07/06/16 08:07 Hct 36.1 % (39.0-53.0) L 07/06/16 08:07 MCV 82.6 fL (80.0-100.0) 07/06/16 08:07 MCH 28.7 pg (25.0-35.0) 07/06/16 08:07 MCHC 34.7 g/dL (31.0-37.0) 07/06/16 08:07 RDW 13.5 % (11.5-15.5) 07/06/16 08:07 Plt Count 180 k/uL (150-450) 07/06/16 08:07 Neutrophils % 66 % 07/06/16 08:07 Lymphocytes % 16 % 07/06/16 08:07 Monocytes % 10 % 07/06/16 08:07 Eosinophils % 4 % 07/06/16 08:07 Basophils % 1 % 07/06/16 08:07 Neutrophils # 3.7 k/uL (1.3-7.7) 07/06/16 08:07 Lymphocytes # 0.9 k/uL (1.0-4.8) L 07/06/16 08:07 Monocytes # 0.6 k/uL (0-1.0) 07/06/16 08:07 Eosinophils # 0.2 k/uL (0-0.7) 07/06/16 08:07 Basophils # 0.0 k/uL (0-0.2) 07/06/16 08:07 PT 10.5 sec (9.0-12.0) 07/03/16 05:55 INR 1.0 (<1.1) 07/03/16 05:55 APTT 21.0 sec (22.0-30.0) L 07/03/16 05:55 Sodium 139 mmol/L (137-145) 07/06/16 08:07 Potassium 3.9 mmol/L (3.5-5.1) 07/06/16 08:07 Chloride 103 mmol/L (98-107) 07/06/16 08:07 Carbon Dioxide 26 mmol/L (22-30) 07/06/16 08:07 Anion Gap 10 mmol/L 07/06/16 08:07 BUN 17 mg/dL (9-20) 07/06/16 08:07 Creatinine 0.81 mg/dL (0.66-1.25) 07/06/16 08:07 Est GFR (MDRD) Af Amer >60 (>60 ml/min/1.73 sqM) 07/06/16 08:07 Est GFR (MDRD) Non-Af >60 (>60 ml/min/1.73 sqM) 07/06/16 08:07 Glucose 198 mg/dL (74-99) H 07/06/16 08:07 POC Glucose (mg/dL) 90 mg/dL (75-99) 07/08/16 22:34 POC Glu Car Oiler ID Quin Barkley 07/08/16 22:34 Calcium 8.5 mg/dL (8.4-10.2) 07/06/16 08:07 Total Bilirubin 0.5 mg/dL (0.2-1.3) 07/06/16 08:07 AST 22 U/L (17-59) 07/06/16 08:07 ALT 25 U/L (21-72) 07/06/16 08:07 Alkaline Phosphatase 84 U/L (38-126) 07/06/16 08:07 Total Protein 6.2 g/dL (6.3-8.2) L 07/06/16 08:07 Albumin 3.4 g/dL (3.5-5.0) L 07/06/16 08:07 Assessment and Plan (1) Compartment syndrome Status: Acute (2) Abscess of left arm Narrative/Plan: As noted pleasant 51-year-old gentleman who was recently hospitalized an outside hospital. He had an injury and developed evidence of an MSSA abscess. Some drainage occurred as well as treatment with intravenous antibiotic therapy , daptomycin was being utilized because of his difficulty with other antibiotics. However at discharge she was doing well. MSSA was isolated and he was discharged home on oral cephalosporin. He did well for about a week and then has significant worsening of his symptoms. He was seen by Dr. Montano in the outpatient setting and then referred to orthopedic surgery. A significant abscess was seen and was taken to the operating room for incision and drainage. Over the enhance significant worsening and presented back to the hospital there is evidence of a compartment syndrome and to the left volar forearm was taken to the operating was noted for the drainage and VAC placement. Patient is showing some improvement at this time. Pain is definitely better controlled. It has improved motion of the hand. He is denying further fever, chills or rigors. With this level of infection will need outpatient intravenous antibiotic therapy. Final choices as well as ceftriaxone 2 g IV piggyback daily. Will come to the outpatient infusion center. Wound care will be with negative pressure therapy which has been arranged for the home. We'll need to have the tendon protected with Adaptic Dressing change with considerably better tonight. Should be able to tolerate this at home. Some Silvadene is applied to the blistering of the right upper arm. Follow the wound healing center after discharge. Status: Acute
[2016-07-09] MEDS: HEPARIN SODIUM,PORCINE 5,000 UNIT/ML 1 ML VIAL SQ SCH ×2 (00:54→07:47)
[2016-07-09] MEDS: HYDROmorphone 1 MG/ML 1 ML SYRINGE IVP PRN ×2 (05:24→12:03)
[2016-07-09 06:38] LABS: CH 29.6; CHCM 35.7; HCT 32.5 % (39.0-53.0); HDW 3.37; HGB 11.4 gm/dL (13.0-17.5); MCH 29.3 pg (25.0-35.0); MCHC 35.2 g/dL (31.0-37.0); MCV 83.3 fL (80.0-100.0); Mean Platelet Volume 7.4; RBC 3.91 m/uL (4.30-5.90); RDW 13.8 % (11.5-15.5); WBC 4.5 k/uL (3.8-10.6)
[2016-07-09 06:56] LABS: ALT 31 U/L (21-72); AST 19 U/L (17-59); Alkaline Phosphatase 73 U/L (38-126); Anion Gap 9 mmol/L; Blood Urea Nitrogen 18 mg/dL (9-20); Calcium 8.5 mg/dL (8.4-10.2); Carbon Dioxide 27 mmol/L (22-30); Chloride 103 mmol/L (98-107); Glucose 163 mg/dL (74-99); Non-African American GFR(MDRD) >60 (>60 ml/min/1.73 sqM); Potassium 3.7 mmol/L (3.5-5.1); Sodium 139 mmol/L (137-145); Total Bilirubin 0.7 mg/dL (0.2-1.3); Total Protein 6.2 g/dL (6.3-8.2)
[2016-07-09 07:12] LABS: Glucose,Whole Blood 161 mg/dL (75-99)
[2016-07-09] MEDS: INSULIN LISPRO (humaLOG) 300 UNIT/3 ML VIAL SQ SCH ×4 (07:45→12:42)
[2016-07-09] MEDS: metFORMIN 500 MG TAB PO SCH (07:46)
[2016-07-09 08:12] VITALS: BP 137/79; RESP 20; TEMP 98.3
--- NOTE | 2016-07-09 08:41 | P.DS ---
Providers Date of admission: 07/03/16 06:31 Expected date of discharge: 07/09/16 Attending physician: Lakhwinder Shaver Consults: 07/03/16 08:57 Consult Physician Routine Consulting Provider: Kelly Montesinos Consult Reason/Comments: post op medical managment Do you want consulting provider notified?: Yes 07/03/16 10:24 Consult Physician Routine Consulting Provider: Cedric Jeffrey Consult Reason/Comments: infection left arm Do you want consulting provider notified?: Yes Primary care physician: Kelly Montesinos - Discharge Diagnosis(es) (1) Postoperative compartment syndrome Current Visit: Yes Status: Acute (2) History of fasciotomy Current Visit: Yes Status: Acute Hospital Course: The patient is a 51 y/o male who is status post left forearm fasciotomy on 2016 and repeat I&D with partial wound closure on 07/06/[address] Shaver. The patient is also status post granuloma excision by Dr. Yobani Contreras on 12/2016. The patient presented to the emergency department on the night of 12/2016 with bleeding through his surgical dressing. The incision was kept open by Dr. Contreras and open incision was sutured by the ER to prevent further bleeding. The patient was discharged home and presented back to the ER with severe arm pain early in the morning on 07/03/2016. The patient was thought to have compartment syndrome and Dr. Shaver opened up the incision in the emergency department. A formal fasciotomy was performed in the operating room soon after. The patient's hospital course has been uneventful and now the patient is ready for discharge. He is currently on IV antibiotics and has a PICC line per Dr. Jeffrey. He will undergo 2 weeks of Rocephin on an outpatient basis. The patient will also be sent home with a wound VAC to be applied either tonight or tomorrow by home care. Today, the patient states that his pain is under control this time. He denies fever, chills, rigors, nausea, vomiting, abdominal pain, shortness of breath, chest pain. No new complaints at this time. Upon exam the patient is in no acute distress. He is alert and oriented 3. Exam of the left upper extremity reveals a dressing that is clean, dry, and intact to the left forearm and hand. The patient is able to wiggle his fingers but does have some stiffness and loss of range of motion. The patient does not have pain upon passive range of motion of the fingers. Sensation and circulatory status is intact. The patient is orthopedically stable for discharge home today. See medication reconciliation for accurate list of discharge medications. Pertinent Studies: Laboratory Tests 07/09/16 06:26 WBC 4.5 RBC 3.91 L Hgb 11.4 L Hct 32.5 L Patient Condition at Discharge: Stable Plan - Discharge Summary New Discharge Prescriptions: cefTRIAXone [Rocephin] 2,000 mg IVPB Q24HR #14 vial HYDROcodone/APAP 7.5-325MG [[place] 7.5-325] 1 - 2 tab PO Q4-6H PRN #40 tab PRN Reason: Pain Discharge Medication List Furosemide [Lasix] 20 mg PO DAILY PRN 06/23/13 [History] Losartan/Hydrochlorothiazide [Losartan-Hctz 100-25 mg Tab] 1 tab PO DAILY [History] Metoprolol Tartrate [Lopressor] 100 mg PO BID 06/23/13 [History] cloNIDine HCL [Catapres] 0.1 mg PO BID 06/23/13 [History] metFORMIN HCL [Glucophage] 1,000 mg PO BID 06/23/13 [History] Clopidogrel [Plavix] 75 mg PO DAILY #30 tab 06/25/13 [Rx] Atorvastatin [Lipitor] 80 mg PO HS 08/14/14 [History] Insulin Aspart [NovoLOG] 8 - 10 units SQ BID@0800,1200 08/14/14 [History] Insulin Glargine [Lantus] 27 unit SQ HS 08/14/14 [History] Insulin Aspart [NovoLOG] 15 units SQ AC-SUPPER 08/17/14 [History] Insulin Aspart [NovoLOG] See Protocol SQ AC-TID 08/17/14 [History] Nitroglycerin Sl Tabs [Nitrostat] 0.4 mg SUBLINGUAL Q5M PRN 09/07/14 [History] Aspirin 325 mg PO DAILY 07/02/16 [History] Ergocalciferol [Vitamin D2] 50,000 unit PO Q14D 07/02/16 [History] Cephalexin [Keflex] 500 mg PO Q6H 07/03/16 [History] cefTRIAXone [Rocephin] 2,000 mg IVPB Q24HR #14 vial 07/06/16 [Rx] HYDROcodone/APAP 7.5-325MG [[place] 7.5-325] 1 - 2 tab PO Q4-6H PRN #40 tab [Rx] Follow up Appointment(s)/Referral(s): Kelly Montesinos MD [Primary Care Provider] - 1-2 days [facility], [REFERRING] - 1 Week Yobani Contreras DO [Doctor of Osteopathic Medicine] - 07/15/16 (Call to make appointment time.) Ambulatory/Diagnostic Orders: Basic Metabolic Panel [LAB.AMB] Location: Determined By Patient Complete Blood Count w/diff [LAB.AMB] Location: Determined By Patient Activity/Diet/Wound Care/Special Instructions: Wound vac to left arm Antibiotics per Dr. Jeffrey Increase finger motion as tolerated Follow up with Dr. Maksim Contreras on 07/15/2016--call to make appointment time, . GO to [facility] out-patient procedures for your iv antibiotics therapy 07/10/2016. [facility] will care for your wound vac and will see you on night or Wednesday morning based on what time you are discharged. [facility] will be delivering your wound vac to the hospital on evening or morning before noon : make sure all equipment goes with pt. Discharge Disposition: HOME WITH HOME HEALTH SERVICES
[2016-07-09] MEDS: cefTRIAXone 2,000 MG in SODIUM CHLORIDE 0.9% 100 ML IVPB SCH (09:36)
[2016-07-09] MEDS: cloNIDine HCL 0.1 MG TAB PO SCH (09:37)
[2016-07-09] MEDS: METOPROLOL TARTRATE 50 MG TAB PO SCH (09:37)
[2016-07-09] MEDS: ASPIRIN 325 MG TAB PO SCH (09:38)
[2016-07-09] MEDS: CLOPIDOGREL 75 MG TAB PO SCH (09:38)
[2016-07-09] MEDS: SENNOSIDES-DOCUSATE SODIUM 1 EACH TAB PO SCH (09:38)
[2016-07-09] MEDS: LOSARTAN-HCTZ 50-12.5 MG 1 EACH TAB PO SCH (09:38)
--- NOTE | 2016-07-09 10:16 | CDI ---
In responding to this query, please exercise your independent professional judgment. The [facility] Coding Staff and Clinical Documentation Specialists appreciate your assistance in clarifying documentation, maintaining compliance with coding guidelines, accurately documenting patients condition and capturing severity of illness. The fact that a question is asked does not imply that any particular answer is desired or expected. Communication forms are a method of clarifying documentation and are not made part of the Legal Health Record. Thank you in advance for your clarification. Last Revision, December 2014 Ceci Altamirano [address] [facility] [place] [address] Documentation Clarification Form Date: 07/07/2016 2:52:00 PM From: Sonali Strickland Admit Date: 07/03/2016 6:31:00 AM Patient Name: Lakhwinder Hirsch Visit Number: [id number] Discharge Date: Dr. Lakhwinder Shaver Per your progress notes/operative note, a debridement was performed on the left forearm. Nonviable subcutaneous tissue was sharply debrided with a knife. History/Risk Factors: Postop left forearm compartment syndrome status post volar compartment fasciotomy, Diabetes Mellitus type 2, Coronary artery disease. Clinical Indicators: Patient had a left forearm vein graft harvest. He was post I&D went to ED with bleeding and was treated with wound care and stiches into the forearm. He returned with increasing pain, swelling left forearm. Treatment: Left volar forearm compartment fasciotomy IV Rocephin, Pain Management Monitor Labs Five elements required for accurate and compliant documentation of a debridement : 1. Technique used (e.g., excisional, excised, cutting, etc.) 2. Instrument(s) used (e.g., scalpel, curette, etc.) 3. Nature of the tissue removed (e.g., necrotic, devitalized tissues, non- viable tissue, etc.) 4. Appearance and size of the wound (e.g., down to fresh bleeding tissue, 7cm x 10cm, etc.) 5. Depth of the debridement* (e.g., skin, subcutaneous tissue, fascia, muscle , bone, etc.) In order to capture the severity of condition and code the appropriate procedure could you please document the following: Excisional debridement (the removal of necrotic, devitalized tissue or slough by means of cutting away of tissue) Non-excisional debridement (the removal of necrotic, devitalized tissue or slough by means of flushing, brushing, or washing. (Irrigation) Other; with explanation for clinical findings Unable to determine (no explanation for clinical findings) Please document as an addendum to your operative report in order to capture severity of illness and risk of mortality. Include clinical findings that support your diagnosis. FYI: Press F11 to launch patient chart. Place X here if this finding has no clinical significance, is not applicable or if you are not able to provide any additional documentation. TROY
[2016-07-09 11:50] LABS: Glucose,Whole Blood 193 mg/dL (75-99)
[2016-07-09] MEDS: LACTATED RINGERS 1,000 ML IV SCH (12:02)
[2016-07-09 13:56] VITALS: PULSE 78
--- NOTE | 2016-07-09 13:57 | P.PN ---
Subjective This is a 51-year-old patient of mine with past medical history for coronary artery disease status post 6 vessel CABG in 2006 with MAE to LAD, saphenous venous graft to the PDA, saphenous venous graft to the obtuse marginal one, radial artery to the obtuse marginal branch 2 and saphenous venous graft to the obtuse marginal 3 followed by heart catheterization with PCI and stent of the saphenous venous graft to the RCA in 2015 at which time he presented with non-ST elevated myocardial infarction. History of diabetes mellitus2 with diabetic polyneuropathy, hyperlipidemia, hypertension, hypertensive cardiovascular disease with left ventricular hypertrophy, asthma, sleep apnea on CPAP, chronic low back pain, chronic kidney disease, DVT in the past. Patient had injury to his left wrist area was not sure what actually happened to it. He went to my office and saw the nurse practitioner and he was sent to [facility] for evaluation and IV antibiotics. Patient underwent I&D in the emergency center and was then sent to Dr. Maksim Contreras. He underwent an incision and drainage of the left volar forearm abscess on July 02. During the night, patient states he was bleeding significantly and blood through his stress seen and came to [facility] emergency center for evaluation. The emergency department did local wound care and put several stitches in the forearm but the patient went home and developed increasing pain swelling and could not move his fingers and came back to the emergency center in the morning. His pain was a 10 out of 10. He had difficulty moving his fingers. He was diagnosed with post compartment syndrome and was taken to the OR by Dr. Shaver for a left volar forearm compartment fasciotomy and wound VAC was placed. Patient is now on the MedSurg floor and pain is currently controlled. Wound culture from [facility] was positive for MSSA. Consult placed with Dr. Jeffrey for antibiotic management. 07/04: Patient is sitting up in bed is complaining of increased pain in the left forearm, he is constipated quite a bit, he denies any chest pain, shortness breath, he has no abdominal pain, he has no nausea vomiting or diarrhea. He has a wound VAC at the site. 07/05: Patient is sitting up in bed, he is feeling more pain in the left upper extremity, he was seen earlier by orthopedic service, he continues to have a wound VAC in place, he continues to have his wound wrapped with an Del wrap, patient pain management was maintained on Dilaudid and Gordon, patient was not taking any of his Gordon yesterday he was advised to start taking Gordon along with the Dilaudid as needed. 07/06: Patient has undergone I&D of the left forearm and application of wound VAC with partial closure of complex left forearm wound with Dr. Shaver. 07/07: Patient wound VAC dressing removed this morning it was very painful and continues to have pain management issues at this time. Dr. Jeffrey has changed antibiotics to ceftriaxone with plan for patient to come into [facility] for IV antibiotics for the next 2 weeks at least. Anticipate he will be ready for discharge by tomorrow. PICC line should be placed today. 07/08: Patient is complaining of a rash to his right arm due to tape at the PICC line area. He still complains of significant pain to the left arm and doesn't feel like it's getting any better. He is currently on ceftriaxone with plan for treatment at the [facility]. Blood sugars have been running between 111 and 245. Anticipate discharge by tomorrow. : Patient is feeling a lot better, he continues to have some pain in the left forearm, he is scheduled to be discharged home today, he is scheduled to come back to the hospital for Rocephin 2 g IV piggyback every day for the next 2 weeks, patient will be discharged in stable condition, he is to follow-up with me as an outpatient in about 1-2 weeks from now. Objective - Vital Signs Vital signs: Vital Signs Temp 98.3 F 07/09/16 07:00 Pulse 67 07/09/16 07:00 Resp 20 07/09/16 07:00 BP 137/79 07/09/16 07:00 Pulse Ox 96 07/09/16 07:00 Intake & Output 07/08/16 07/09/16 07/09/16 18:59 06:59 18:59 Intake Total 500 200 Output Total 700 Balance -200 200 Weight 83.915 kg Intake: IV 160 100 Lactated Ringers 1,000 ml 160 100 @ 20 mls/hr IV .Q24H [facility] Rx#:[id number] Intake, IV Titration 100 Amount cefTRIAXone 2,000 mg In 100 Sodium Chloride 0.9% 100 ml @ 100 mls/hr IVPB Q24HR [facility] Rx#:[id number] Oral 240 100 Output: Urine 700 Other: Voiding Method Urinal Urinal # Voids 3 1 - Exam - Exam General appearance: Present: average body habitus, mild distress - EENT Eyes: Present: EOMI, PERRLA, scleral icterus, normal appearance. Absent: ptosis ENT: Present: hearing grossly normal, NA/AT, normal oropharynx. Absent: thrush Ears: bilateral: normal - Neck Neck: Present: normal ROM. Absent: lymphadenopathy, rigidity, stridor, thyromegaly Carotids: bilateral: upstroke normal Thyroid: bilateral: normal size - Respiratory Respiratory: bilateral: diminished, negative: dullness, rales, rhonchi, wheezing , prolonged expiration, prolonged inspiration - Cardiovascular Rhythm: regular Heart sounds: normal: S1, S2 Abnormal Heart Sounds: Present: systolic murmur. Absent: S3 Gallop, S4 Gallop - Gastrointestinal General gastrointestinal: Present: distended, normal bowel sounds, soft. Absent : splenomegaly, tenderness, umbilical hernia, ventral hernia - Integumentary Integumentary: Present: pale - Neurologic Neurologic: Present: CNII-XII intact - Musculoskeletal Musculoskeletal: Present: gait normal, generalized weakness, strength equal bilaterally - Psychiatric Psychiatric: Present: A&O x's 3, appropriate affect, intact judgment & insight - Labs CBC & Chem 7: 07/09/16 06:26 07/09/16 06:26 Labs: Abnormal Lab Results - Last 24 Hours (Table) 07/08/16 07/08/16 07/09/16 Range/Units 20:41 21:58 06:26 RBC 3.91 L (4.30-5.90) m/uL Hgb 11.4 L (13.0-17.5) gm/dL Hct 32.5 L (39.0-53.0) % Glucose (74-99) mg/dL POC Glucose (mg/dL) 62 L 73 L (75-99) mg/dL Total Protein (6.3-8.2) g/dL Albumin (3.5-5.0) g/dL 07/09/16 07/09/16 07/09/16 Range/Units 06:26 07:10 11:44 RBC (4.30-5.90) m/uL Hgb (13.0-17.5) gm/dL Hct (39.0-53.0) % Glucose 163 H (74-99) mg/dL POC Glucose (mg/dL) 161 H 193 H (75-99) mg/dL Total Protein 6.2 L (6.3-8.2) g/dL Albumin 3.3 L (3.5-5.0) g/dL Assessment and Plan Plan: Assessment and Plan Plan: 1. Left volar forearm compartment syndrome status post patient to ks and wound VAC placement under the care of Dr. Shaver. Continue current pain management. Incentive serology to reduce incidence of atelectasis and hospital- acquired pneumonia. DVT prophylaxis and GI prophylaxis. Consult with Dr. Jeffrey. Continue daptomycin. 2. History of coronary artery disease status post coronary artery bypass graft for 6 vessel disease with chronically occluded saphenous venous graft to the obtuse marginal branch and status post PCI of the saphenous graft to the RCA. Continue Plavix 75 mg daily, aspirin 325 mg daily, Lipitor is on hold, continue Lopressor 100 mg twice daily, nitroglycerin as needed. 3. Diabetes mellitus type 2 and diabetic polyneuropathy. Continue Lantus 27 units at bedtime, Humalog 15 units before supper, 8 units with breakfast and lunch. Continue metformin 1000 mg twice daily 4. Hypertension, hypertensive cardiovascular disease. Continue Catapres 0.1 mg twice daily, Lopressor 100 mg twice daily, losartan/hydrochlorothiazide 1 daily. 5. Hyperlipidemia. Lipitor on hold while on daptomycin. 6. Obstructive sleep apnea. Continue CPAP as per home settings. 7. Chronic kidney disease stage II. 8. Opioid-induced constipation. Start the patient on Senokot one tablet orally twice every day, milk of Magnesia 30 mL orally once every day as needed. 9. Increase activity. 10. Home today. Follow-up with me in the office in about 1-2 weeks.
[2016-07-09] MEDS: HYDROcodone/APAP 10-325MG 1 EACH TAB PO PRN (14:26)
== END 2016-07-09 15:25 | disposition home health service (06) | DRG 501 ==
LOC: EC 04:53 → 3SUR 06:31 → 5MS5E 08:44
PROVIDERS: ADMIT Orthopaedic Surgery; ATTEND Orthopaedic Surgery
PROC: 0KNB0ZZ Release Left Lower Arm and Wrist Muscle, Open Approach (ICD-10-PCS; 2016-07-03)
PROC: 0KBB0ZZ Excision of Left Lower Arm and Wrist Muscle, Open Approach (ICD-10-PCS; 2016-07-06)
PROC: B5181ZA Fluoroscopy of Superior Vena Cava using Low Osmolar Contrast, Guidance (ICD-10-PCS; principal; 2016-07-07 13:18)
PROC: 02HV33Z Insertion of Infusion Device into Superior Vena Cava, Percutaneous Approach (ICD-10-PCS; principal; 2016-07-07 13:18)
PROC: B548ZZA Ultrasonography of Superior Vena Cava, Guidance (ICD-10-PCS; principal; 2016-07-07 13:18)
DX: M79.A12 Nontraumatic compartment syndrome of left upper extremity (principal); L02.414 Cutaneous abscess of left upper limb; E11.22 Type 2 diabetes mellitus with diabetic chronic kidney disease; I13.10 Hypertensive heart and chronic kidney disease without heart failure, with stage 1 through stage 4 chronic kidney disease, or unspecified chronic kidney disease; E11.42 Type 2 diabetes mellitus with diabetic polyneuropathy; E78.5 Hyperlipidemia, unspecified; G47.33 Obstructive sleep apnea (adult) (pediatric); I25.10 Atherosclerotic heart disease of native coronary artery without angina pectoris; I25.2 Old myocardial infarction; J45.909 Unspecified asthma, uncomplicated; K59.00 Constipation, unspecified; N18.9 Chronic kidney disease, unspecified; Z79.4 Long term (current) use of insulin; Z79.82 Long term (current) use of aspirin; Z79.899 Other long term (current) drug therapy; Z82.49 Family history of ischemic heart disease and other diseases of the circulatory system; Z86.718 Personal history of other venous thrombosis and embolism; Z95.1 Presence of aortocoronary bypass graft; Z95.5 Presence of coronary angioplasty implant and graft; Z98.1 Arthrodesis status
CPT/HCPCS: 12002; 36415; 36569; 76937; 77001; 80053; 85025; 85027; 85610; 85730; 87070; 87205; 88304; 96374; 99282; 99285

== ENCOUNTER 2016-10-12 17:18 | Observation (INO) | payer MEDICARE ==
[2016-10-12] MEDS ORDERED: ASPIRIN 81 MG CHEW PO STA (18:33)
--- NOTE | 2016-10-12 18:37 | ED ---
General Adult HPI - General Chief complaint: Chest Pain Stated complaint: chest pain Time Seen by Provider: 10/12/16 17:52 Source: patient, RN notes reviewed Mode of arrival: wheelchair Limitations: no limitations - History of Present Illness Initial comments: Patient is a pleasant 51-year-old male presenting to the emergency department complaining of chest discomfort. Onset of symptoms was a couple of days ago. Symptoms were intermittent however today's more persistent. Discomfort is starting to become severe. Discomfort feels like pressure without radiation. Patient does feel shortness of breath. No associated nausea or diaphoresis. Patient has had similar symptoms previously associated with heart attack. Patient has had stents and CABG. - Related Data Home Medications Medication Instructions Recorded Confirmed Furosemide [Lasix] 20 mg PO DAILY PRN 06/23/13 10/12/16 Losartan/Hydrochlorothiazide 1 tab PO DAILY 06/23/13 10/12/16 [Losartan-Hctz 100-25 mg Tab] Metoprolol Tartrate [Lopressor] 100 mg PO BID 06/23/13 10/12/16 cloNIDine HCL [Catapres] 0.1 mg PO BID 06/23/13 10/12/16 metFORMIN HCL [Glucophage] 1,000 mg PO BID 06/23/13 10/12/16 Atorvastatin [Lipitor] 80 mg PO HS 08/14/14 10/12/16 Insulin Aspart [NovoLOG] 8 - 10 units SQ BID@0800,1200 08/14/14 10/12/16 Insulin Glargine [Lantus] 27 unit SQ HS 08/14/14 10/12/16 Insulin Aspart [NovoLOG] 15 units SQ AC-SUPPER 08/17/14 10/12/16 Insulin Aspart [NovoLOG] See Protocol SQ AC-TID 08/17/14 10/12/16 Nitroglycerin Sl Tabs [Nitrostat] 0.4 mg SUBLINGUAL Q5M PRN 09/07/14 10/12/16 Aspirin 325 mg PO HS 07/02/16 10/12/16 Ergocalciferol [Vitamin D2] 50,000 unit PO Q14D 07/02/16 10/12/16 hydrALAZINE HCL 75 mg PO BID 07/17/16 10/12/16 Previous Rx's Medication Instructions Recorded Clopidogrel [Plavix] 75 mg PO DAILY #30 tab 06/25/13 HYDROcodone/APAP 7.5-325MG [[place] 1 - 2 tab PO Q4-6H PRN #40 tab 07/07/16 7.5-325] Allergies Allergy/AdvReac Type Severity Reaction Status Date / Time vancomycin Allergy Rash/Hives Verified 10/12/16 19:04 adhesive tape AdvReac Rash/Hives Verified 10/12/16 19:04 Review of Systems ROS Statement: Those systems with pertinent positive or pertinent negative responses have been documented in the HPI. ROS Other: All systems not noted in ROS Statement are negative. Constitutional: Denies: fever Eyes: Denies: eye pain ENT: Denies: ear pain Respiratory: Reports: dyspnea. Denies: cough Cardiovascular: Reports: chest pain Endocrine: Denies: fatigue Gastrointestinal: Denies: abdominal pain Genitourinary: Denies: urgency Musculoskeletal: Denies: back pain Skin: Denies: rash Neurological: Denies: weakness Past Medical History Past Medical History: Asthma, Coronary Artery Disease (CAD), Chest Pain / Angina , Diabetes Mellitus, Deep Vein Thrombosis (DVT), Hyperlipidemia, Hypertension, Myocardial Infarction ([place]), Sleep Apnea/CPAP/BIPAP Additional Past Medical History / Comment(s): Obstructive sleep apnea CPAP, IDDM type II, DVT L leg, cellulitis L leg 2012, back pain. Hypertension, hypertensive cardiovascular disease with left ventricular hypertrophy, chronic low back pain, diabetic polyneuropathy, chronic kidney disease Last Myocardial Infarction Date:: 06/23/13 History of Any Multi-Drug Resistant Organisms: MRSA Date of last positivie culture/infection: 08/2014 MDRO Source:: abdomin around naval Past Surgical History: Back Surgery, Coronary Bypass/CABG, Heart Catheterization , Heart Catheterization With Stent, Hernia Repair Additional Past Surgical History / Comment(s): 08/28/15 PCI with stent to ramus. Other surgical hx: Spinal fusion L4-L5, fasciotomy left thigh,CABG 2007- [facility], PCI with 3 previous stents, bilateral inguinal hernia repairs. Fasciotomy Left forearm - June 2016 Past Anesthesia/Blood Transfusion Reactions: No Reported Reaction Date of Last Stent Placement:: 08/28/15 Past Psychological History: No Psychological Hx Reported Smoking Status: Never smoker Past Alcohol Use History: None Reported Past Drug Use History: None Reported - Past Family History Brother(s) Additional Family Medical History / Comment(s): Patient has 1 brother and 1 sister with no major medical problems. Mother Family Medical History: Diabetes Mellitus Additional Family Medical History / Comment(s): Mother at the age of 84 from with history of chronic renal disease stage IV and congestive heart failure. Father Family Medical History: Coronary Artery Disease (CAD), Myocardial Infarction ([place] ) Additional Family Medical History / Comment(s): Father of a [place] at the age of 60 yrs with history of COPD. General Exam Limitations: no limitations General appearance: alert Head exam: Present: atraumatic Eye exam: Present: normal appearance, PERRL ENT exam: Present: normal oropharynx Neck exam: Present: normal inspection Respiratory exam: Present: normal lung sounds bilaterally. Absent: chest wall tenderness Cardiovascular Exam: Present: regular rate, normal rhythm Expanded Peripheral pulses: 2+: Radial (R), Radial (L), Dorsalis Pedis (R), Dorsalis Pedis (L) GI/Abdominal exam: Present: soft. Absent: tenderness Extremities exam: Present: normal inspection. Absent: pedal edema, calf tenderness Neurological exam: Present: alert Psychiatric exam: Present: normal affect, normal mood Skin exam: Present: normal color Course Vital Signs 10/12/16 10/12/16 10/12/16 17:21 18:42 18:54 Temperature 98.6 F Pulse Rate 79 70 73 Respiratory 18 18 17 Rate Blood Pressure 139/88 185/100 150/90 O2 Sat by Pulse 98 97 99 Oximetry 10/12/16 10/12/16 10/12/16 19:10 19:19 20:26 Temperature 98.5 F Pulse Rate 73 74 85 Respiratory 17 18 18 Rate Blood Pressure 151/91 136/73 164/86 O2 Sat by Pulse 99 97 98 Oximetry 10/12/16 21:40 Temperature 97.8 F Pulse Rate 63 Respiratory 16 Rate Blood Pressure 164/93 O2 Sat by Pulse 99 Oximetry EKG Findings - EKG Comments: EKG Findings:: Normal sinus rhythm 68. NE 154. QRS 92. QT 396. QTc 421. Normal axis. Inferior and lateral T wave inversion. Previous EKG dated 2015 reviewed with some changes. Medical Decision Making - Medical Decision Making Patient reevaluated and resting comfortably in bed. EKG does appear change from previous. Case was discussed with Dr. Green, who will admit for Dr. Aamir benitez. Patient was updated. - Lab Data Result diagrams: 10/12/16 18:35 10/12/16 18:35 Lab Results 10/12/16 10/12/16 10/12/16 Range/Units 18:35 18:35 18:35 WBC 3.6 L (3.8-10.6) k/uL RBC 5.86 (4.30-5.90) m/uL Hgb 15.7 (13.0-17.5) gm/dL Hct 47.6 (39.0-53.0) % MCV 81.2 (80.0-100.0) fL MCH 26.8 (25.0-35.0) pg MCHC 33.0 (31.0-37.0) g/dL RDW 14.7 (11.5-15.5) % Plt Count 181 (150-450) k/uL Neutrophils % 58 % Lymphocytes % 20 % Monocytes % 12 % Eosinophils % 5 % Basophils % 1 % Neutrophils # 2.1 (1.3-7.7) k/uL Lymphocytes # 0.7 L (1.0-4.8) k/uL Monocytes # 0.4 (0-1.0) k/uL Eosinophils # 0.2 (0-0.7) k/uL Basophils # 0.0 (0-0.2) k/uL PT (9.0-12.0) sec INR (<1.2) APTT (22.0-30.0) sec Sodium 136 L (137-145) mmol/L Potassium 3.6 (3.5-5.1) mmol/L Chloride 99 (98-107) mmol/L Carbon Dioxide 23 (22-30) mmol/L Anion Gap 14 mmol/L BUN 17 (9-20) mg/dL Creatinine 0.76 (0.66-1.25) mg/dL Est GFR (MDRD) Af Amer >60 (>60 ml/min/1.73 sqM) Est GFR (MDRD) Non-Af >60 (>60 ml/min/1.73 sqM) Glucose 433 H (74-99) mg/dL POC Glucose (mg/dL) (75-99) mg/dL POC Glu Brine Supervisor ID Estimated Ave Glu mg/dL mg/dL Hemoglobin A1c (4.2-6.1) % Calcium 9.0 (8.4-10.2) mg/dL Magnesium 1.8 (1.6-2.3) mg/dL Total Bilirubin 0.4 (0.2-1.3) mg/dL AST 25 (17-59) U/L ALT 43 (21-72) U/L Alkaline Phosphatase 120 (38-126) U/L Total Creatine Kinase 63 (55-170) U/L CK-MB (CK-2) 1.3 (0.0-2.4) ng/mL CK-MB (CK-2) Rel Index 2.1 Troponin I <0.012 (0.000-0.034) ng/mL Total Protein 6.9 (6.3-8.2) g/dL Albumin 4.0 (3.5-5.0) g/dL 10/12/16 10/12/16 10/12/16 Range/Units 18:35 18:35 20:02 WBC (3.8-10.6) k/uL RBC (4.30-5.90) m/uL Hgb (13.0-17.5) gm/dL Hct (39.0-53.0) % MCV (80.0-100.0) fL MCH (25.0-35.0) pg MCHC (31.0-37.0) g/dL RDW (11.5-15.5) % Plt Count (150-450) k/uL Neutrophils % % Lymphocytes % % Monocytes % % Eosinophils % % Basophils % % Neutrophils # (1.3-7.7) k/uL Lymphocytes # (1.0-4.8) k/uL Monocytes # (0-1.0) k/uL Eosinophils # (0-0.7) k/uL Basophils # (0-0.2) k/uL PT 9.8 (9.0-12.0) sec INR 1.0 (<1.2) APTT 24.3 (22.0-30.0) sec Sodium (137-145) mmol/L Potassium (3.5-5.1) mmol/L Chloride (98-107) mmol/L Carbon Dioxide (22-30) mmol/L Anion Gap mmol/L BUN (9-20) mg/dL Creatinine (0.66-1.25) mg/dL Est GFR (MDRD) Af Amer (>60 ml/min/1.73 sqM) Est GFR (MDRD) Non-Af (>60 ml/min/1.73 sqM) Glucose (74-99) mg/dL POC Glucose (mg/dL) 309 H (75-99) mg/dL POC Glu Brine Supervisor ID [address] Glu mg/dL 249 mg/dL Hemoglobin A1c 10.3 H (4.2-6.1) % Calcium (8.4-10.2) mg/dL Magnesium (1.6-2.3) mg/dL Total Bilirubin (0.2-1.3) mg/dL AST (17-59) U/L ALT (21-72) U/L Alkaline Phosphatase (38-126) U/L Total Creatine Kinase (55-170) U/L CK-MB (CK-2) (0.0-2.4) ng/mL CK-MB (CK-2) Rel Index Troponin I (0.000-0.034) ng/mL Total Protein (6.3-8.2) g/dL Albumin (3.5-5.0) g/dL - Radiology Data Radiology results: image reviewed (Chest x-ray shows no acute process) Critical Care Time Critical Care Time: Yes Total Critical Care Time: 32 Disposition Clinical Impression: Unstable angina pectoris Disposition: ADMITTED IP TO THIS [facility] Condition: Serious Referrals: Kelly Montesinos MD [Primary Care Provider] - 1-2 days Decision Time: 22:02
[2016-10-12] MEDS: NITROGLYCERIN SL TABS 0.4 MG TAB SUBLINGUAL SCH ×4 (18:41→22:55)
--- NOTE | 2016-10-12 18:56 | XR ---
EXAMINATION TYPE: XR chest 2V DATE OF EXAM: 10/12/2016 COMPARISON: 08/13/2014 HISTORY: Chest pain TECHNIQUE: Frontal and lateral views of the chest are obtained. FINDINGS: There is no heart failure nor confluent pneumonic infiltrate. There are no hilar masses. T here are sternal wires. There are chest leads. Bony thorax is intact. IMPRESSION: No active cardiopulmonary disease. No change.
[2016-10-12 18:59] LABS: ALT 43 U/L (21-72); AST 25 U/L (17-59); Alkaline Phosphatase 120 U/L (38-126); Anion Gap 14 mmol/L; Blood Urea Nitrogen 17 mg/dL (9-20); Carbon Dioxide 23 mmol/L (22-30); Chloride 99 mmol/L (98-107); Glucose 433 mg/dL (74-99); Magnesium 1.8 mg/dL (1.6-2.3); Non-African American GFR(MDRD) >60 (>60 ml/min/1.73 sqM); Potassium 3.6 mmol/L (3.5-5.1); Sodium 136 mmol/L (137-145); Total Bilirubin 0.4 mg/dL (0.2-1.3); Total Protein 6.9 g/dL (6.3-8.2)
[2016-10-12 19:00] LABS: Creatine Kinase 63 U/L (55-170)
[2016-10-12 19:01] LABS: Partial Thromboplastin Time 24.3 sec (22.0-30.0); Prothrombin Time 9.8 sec (9.0-12.0)
[2016-10-12 19:08] LABS: Basophils % (A) 1 %; CH 28.3; Eosinophils # (A) 0.2 k/uL (0-0.7); Eosinophils % (A) 5 %; HCT 47.6 % (39.0-53.0); HDW 3.08; HGB 15.7 gm/dL (13.0-17.5); Luc # (Auto) 0.15; Luc % (Auto) 4; Lymphocytes # (A) 0.7 k/uL (1.0-4.8); Lymphocytes % (A) 20 %; MCH 26.8 pg (25.0-35.0); MCV 81.2 fL (80.0-100.0); Mean Platelet Volume 8.1; Monocytes # (A) 0.4 k/uL (0-1.0); Monocytes % (A) 12 %; Neutrophils # (A) 2.1 k/uL (1.3-7.7); Neutrophils % (A) 58 %; RBC 5.86 m/uL (4.30-5.90); RDW 14.7 % (11.5-15.5); WBC 3.6 k/uL (3.8-10.6); WBC (Perox) 3.34
[2016-10-12 19:14] LABS: Creatine Kinase MB 1.3 ng/mL (0.0-2.4); Troponin I <0.012 ng/mL (0.000-0.034)
[2016-10-12] MEDS ORDERED: ACETAMINOPHEN TAB 325 MG TAB PO STA (19:24)
[2016-10-12 20:03] LABS: Glucose,Whole Blood 309 mg/dL (75-99)
[2016-10-12] MEDS: INSULIN LISPRO (humaLOG) 300 UNIT/3 ML VIAL SQ SCH (20:22)
[2016-10-12 21:12] LABS: Hemoglobin A1C 10.3 % (4.2-6.1)
[2016-10-12] MEDS ORDERED: HEPARIN SODIUM,PORCINE 5,000 UNIT/ML 1 ML VIAL IV PRN (22:02)
[2016-10-12] MEDS ORDERED: NITROGLYCERIN SL TABS 0.4 MG TAB SUBLINGUAL PRN (22:02)
[2016-10-12] MEDS ORDERED: HEPARIN SODIUM,PORCINE 5,000 UNIT/ML 1 ML VIAL IV ONE (22:02)
[2016-10-12] MEDS ORDERED: FUROSEMIDE 20 MG TAB PO PRN (22:04)
[2016-10-12] MEDS ORDERED: HEPARIN SODIUM,PORCINE/D5W PMX 25,000 UNIT in DEXTROSE/WATER 1 500ML.BAG IV SCH (22:15)
[2016-10-12 23:11] LABS: Glucose,Whole Blood 301 mg/dL (75-99)
[2016-10-12 23:28] VITALS: BMI 27.3
[2016-10-12] MEDS: INSULIN GLARGINE 100 UNIT/ML 10 ML VIAL SQ SCH (23:38)
[2016-10-12] MEDS ORDERED: ATORVASTATIN 80 MG TAB PO STA (23:41)
[2016-10-12] MEDS ORDERED: hydrALAZINE HCL 25 MG TAB PO STA (23:41)
[2016-10-12] MEDS ORDERED: cloNIDine HCL 0.1 MG TAB PO STA (23:42)
[2016-10-12] MEDS ORDERED: METOPROLOL TARTRATE 50 MG TAB PO STA (23:42)
[2016-10-13 00:33] LABS: Troponin I 0.012 ng/mL (0.000-0.034)
[2016-10-13] MEDS: NITROGLYCERIN SL TABS 0.4 MG TAB SUBLINGUAL SCH ×5 (04:32→04:36)
[2016-10-13 06:49] LABS: Mean Platelet Volume 7.6
[2016-10-13 06:58] LABS: Glucose,Whole Blood 142 mg/dL (75-99)
[2016-10-13 07:02] LABS: Cholesterol 146 mg/dL (<200); HDL Cholesterol 42 mg/dL (40-60)
[2016-10-13 07:25] LABS: Troponin I 0.014 ng/mL (0.000-0.034)
[2016-10-13] MEDS: INSULIN LISPRO (humaLOG) 300 UNIT/3 ML VIAL SQ SCH ×4 (08:31→20:26)
[2016-10-13] MEDS ORDERED: ALPRAZolam 0.25 MG TAB PO PRN (08:50)
[2016-10-13] MEDS ORDERED: ATORVASTATIN 80 MG TAB PO STA (08:50)
[2016-10-13] MEDS ORDERED: NITROGLYCERIN SL TABS 0.4 MG TAB SUBLINGUAL PRN (08:50)
[2016-10-13] MEDS ORDERED: SODIUM CHLORIDE 0.9% 1,000 ML in EMPTY BAG 1 BAG IV ONE (08:50)
[2016-10-13] MEDS ORDERED: ASPIRIN 325 MG TAB PO STA (08:50)
[2016-10-13] MEDS ORDERED: ALPRAZolam 0.5 MG TAB PO PRN (08:50)
[2016-10-13] MEDS ORDERED: ASPIRIN 325 MG TAB PO SCH (09:00)
[2016-10-13] MEDS ORDERED: metFORMIN 500 MG TAB PO SCH (09:00)
[2016-10-13] MEDS: hydrALAZINE HCL 25 MG TAB PO SCH ×2 (09:11→20:24)
[2016-10-13] MEDS: cloNIDine HCL 0.1 MG TAB PO SCH ×2 (09:11→20:25)
[2016-10-13] MEDS: CLOPIDOGREL 75 MG TAB PO SCH (09:11)
[2016-10-13] MEDS: METOPROLOL TARTRATE 50 MG TAB PO SCH ×2 (09:13→20:24)
[2016-10-13] MEDS: LOSARTAN-HCTZ 50-12.5 MG 1 EACH TAB PO SCH (09:36)
[2016-10-13 11:54] LABS: Glucose,Whole Blood 190 mg/dL (75-99)
[2016-10-13] MEDS ORDERED: IV FLUID CONTINUATION 1,000 ML IV ONE (13:00)
[2016-10-13] MEDS ORDERED: fentaNYL (PF) 50 MCG/ML 2 ML AMP ONE (13:04)
[2016-10-13] MEDS ORDERED: LIDOCAINE 2% INJ 20 MG/ML (20 ML MDV) ONE (13:04)
[2016-10-13] MEDS ORDERED: fentaNYL (PF) 50 MCG/ML 2 ML AMP IV ONE (13:06)
[2016-10-13] MEDS ORDERED: LIDOCAINE 2% INJ 20 MG/ML SQ ONE (13:08)
[2016-10-13] MEDS ORDERED: IOHEXOL 350 MG/ML 125ML BOTTLE INJ ONE (13:29)
[2016-10-13] MEDS ORDERED: RX INFO: IV CONTRAST WAS GIVEN 1 EACH MISC MISCELLANE PRN (13:48)
[2016-10-13] MEDS ORDERED: SODIUM CHLORIDE 0.9% 1,000 ML IV SCH (14:00)
--- NOTE | 2016-10-13 14:15 | P.HPIM ---
History of Present Illness H&P Date: 10/13/16 Chief Complaint: Chest pain This is a 51-year-old patient of Dr. Montesinos with past medical history for coronary artery disease status post 6 vessel CABG in 2006 with MAE to LAD, saphenous venous graft to the PDA, saphenous venous graft to the obtuse marginal one, radial artery to the obtuse marginal branch 2 and saphenous venous graft to the obtuse marginal 3 followed by heart catheterization with PCI and stent of the saphenous venous graft to the RCA in 2015 at which time he presented with non-ST elevated myocardial infarction. History of diabetes mellitus2 with diabetic polyneuropathy, hyperlipidemia, hypertension, hypertensive cardiovascular disease with left ventricular hypertrophy, asthma, sleep apnea on CPAP, chronic low back pain, chronic kidney disease, DVT in the past. Patient presented to [facility] emergency center with complaints of chest pain that had been going on for a couple of days and intermittent. Chest discomfort continued to worsen with pressure and a squeezing sensation. He states he did not take nitroglycerin. Patient was placed on observation unit and was seen by cardiology. He underwent heart catheterization that showed no new blockages with plan for discharge tomorrow. Patient does have a chronic wound to the left forearm for which she was under care at the wound healing center and was discharged. He states he was doing fine until 3 days ago when the wound opened. Review of Systems All systems: negative Constitutional: Denies chills, Denies fever Eyes: denies blurred vision, denies pain Ears, nose, mouth and throat: Denies headache, Denies sore throat Cardiovascular: Reports chest pain, Denies shortness of breath Respiratory: Denies cough Gastrointestinal: Denies abdominal pain, Denies diarrhea, Denies nausea, Denies vomiting Musculoskeletal: Denies myalgias Integumentary: Reports wounds, Denies pruritus, Denies rash Neurological: Denies numbness, Denies weakness Psychiatric: Denies anxiety, Denies depression Endocrine: Denies fatigue, Denies weight change Past Medical History Past Medical History: Asthma, Coronary Artery Disease (CAD), Chest Pain / Angina , Diabetes Mellitus, Deep Vein Thrombosis (DVT), Hyperlipidemia, Hypertension, Myocardial Infarction (MA), Sleep Apnea/CPAP/BIPAP Additional Past Medical History / Comment(s): Obstructive sleep apnea CPAP, IDDM type II, DVT L leg, cellulitis L leg 2012, back pain. Hypertension, hypertensive cardiovascular disease with left ventricular hypertrophy, chronic low back pain, diabetic polyneuropathy, chronic kidney disease Last Myocardial Infarction Date:: 06/23/13 History of Any Multi-Drug Resistant Organisms: MRSA Date of last positivie culture/infection: 08/2014 MDRO Source:: abdomin around naval Past Surgical History: Back Surgery, Coronary Bypass/CABG, Heart Catheterization , Heart Catheterization With Stent, Hernia Repair Additional Past Surgical History / Comment(s): 08/28/15 PCI with stent to ramus. Other surgical hx: Spinal fusion L4-L5, fasciotomy left thigh,CABG 2006- [facility], PCI with 3 previous stents, bilateral inguinal hernia repairs. Fasciotomy Left forearm - June 2016 Past Anesthesia/Blood Transfusion Reactions: No Reported Reaction Date of Last Stent Placement:: 08/28/15 Past Psychological History: No Psychological Hx Reported Additional Psychological History / Comment(s): Pt is independent. He is currently living with his parents. Smoking Status: Never smoker Past Alcohol Use History: None Reported Additional Past Alcohol Use History / Comment(s): Vision states he is a lifelong nonsmoker. He denies any medical marijuana, marijuana, street drug use. He is and lives with a roommate. He is on disability due to his diabetes and coronary artery disease. He has one son with no major medical problems. Past Drug Use History: None Reported - Past Family History Brother(s) Additional Family Medical History / Comment(s): Patient has 1 brother and 1 sister with no major medical problems. Mother Family Medical History: Diabetes Mellitus Additional Family Medical History / Comment(s): Mother at the age of 84 from with history of chronic renal disease stage IV and congestive heart failure. Father Family Medical History: Coronary Artery Disease (CAD), Myocardial Infarction (MA ) Additional Family Medical History / Comment(s): Father of a MA at the age of 60 yrs with history of COPD. Medications and Allergies Home Medications Medication Instructions Recorded Confirmed Type Furosemide [Lasix] 20 mg PO DAILY PRN 06/23/13 10/12/16 History Losartan/Hydrochlorothiazide 1 tab PO DAILY 06/23/13 10/12/16 History [Losartan-Hctz 100-25 mg Tab] Metoprolol Tartrate [Lopressor] 100 mg PO BID 06/23/13 10/12/16 History cloNIDine HCL [Catapres] 0.1 mg PO BID 06/23/13 10/12/16 History metFORMIN HCL [Glucophage] 1,000 mg PO BID 06/23/13 10/12/16 History Atorvastatin [Lipitor] 80 mg PO HS 08/14/14 10/12/16 History Insulin Aspart [NovoLOG] 8 - 10 units SQ BID@0800,1200 08/14/14 10/12/16 History Insulin Glargine [Lantus] 27 unit SQ HS 08/14/14 10/12/16 History Insulin Aspart [NovoLOG] 15 units SQ AC-SUPPER 08/17/14 10/12/16 History Insulin Aspart [NovoLOG] See Protocol SQ AC-TID 08/17/14 10/12/16 History Nitroglycerin Sl Tabs [Nitrostat] 0.4 mg SUBLINGUAL Q5M PRN 09/07/14 10/12/16 History Aspirin 325 mg PO HS 07/02/16 10/12/16 History Ergocalciferol [Vitamin D2] 50,000 unit PO Q14D 07/02/16 10/12/16 History hydrALAZINE HCL 75 mg PO BID 07/17/16 10/12/16 History Allergies Allergy/AdvReac Type Severity Reaction Status Date / Time vancomycin Allergy Rash/Hives Verified 10/13/16 00:07 adhesive tape AdvReac Rash/Hives Verified 10/13/16 00:07 Physical Exam Vitals: Vital Signs Temp Pulse Pulse Resp BP BP Pulse Ox 10/13/16 11:40 98.0 F 67 18 102/54 98 10/13/16 08:00 18 10/13/16 07:40 97.9 F 57 L 18 153/89 100 10/13/16 04:00 62 16 10/13/16 03:42 98.4 F 60 16 139/77 99 10/13/16 00:00 18 10/12/16 23:10 98.5 F 66 16 152/90 98 10/12/16 22:46 98.4 F 62 16 143/83 99 10/12/16 21:40 97.8 F 63 16 164/93 99 10/12/16 20:26 85 18 164/86 98 10/12/16 19:19 98.5 F 74 18 136/73 97 10/12/16 19:10 73 17 151/91 99 10/12/16 18:54 73 17 150/90 99 10/12/16 18:42 70 18 185/100 97 10/12/16 17:21 98.6 F 79 18 139/88 98 Intake and Output 10/12/16 10/13/16 10/13/16 22:59 06:59 14:59 Intake Total 50 458 154.475 Balance 50 458 154.475 Intake: IV 160 0.9 NS @ KVO 160 Amount of Fluid Infused ( 50 ml) Intake, IV Titration 148 154.475 Amount Heparin Sodium,Porcine/ 148 154.475 D5w Pmx 25,000 unit In Dextrose/Water 1 500ml. bag @ 12 UNITS/KG/HR 18.5 mls/hr IV .Q24H [facility] Rx#: [id number] Oral 150 Other: Voiding Method Toilet Toilet # Voids 3 Weight 79.379 kg 79.379 kg Patient Weight 10/14/16 06:59 Weight 79.379 kg Gen: This is a 51-year-old male who is sitting up in bed and appears to be in no acute distress. HEENT: Head is atraumatic, normocephalic. Pupils equal, round. Sclerae is anicteric. Conjunctiva pink. Mucous membranes of the mouth are somewhat dry. NECK: Supple. No JVD. No lymphadenopathy. No thyromegaly. LUNGS: Clear to auscultation. No wheezes or rhonchi. No intercostal retractions. HEART: Regular rate and rhythm. No murmur. ABDOMEN: Soft. Bowel sounds are present. No masses. No tenderness. EXTREMITIES: No pedal edema. No calf tenderness. Patient has dehiscence of the distal part and the center part of the wound to the left wrist, no drainage , no surrounding erythema. NEUROLOGICAL: Patient is awake, alert and oriented x3. Cranial nerves 2 through 12 are grossly intact. Results CBC & Chem 7: 10/13/16 06:27 10/12/16 18:35 Labs: Abnormal Lab Results - Last 24 Hours (Table) 10/12/16 10/12/16 10/12/16 Range/Units 18:35 18:35 18:35 WBC 3.6 L (3.8-10.6) k/uL Lymphocytes # 0.7 L (1.0-4.8) k/uL APTT (22.0-30.0) sec Sodium 136 L (137-145) mmol/L Glucose 433 H (74-99) mg/dL POC Glucose (mg/dL) (75-99) mg/dL Hemoglobin A1c 10.3 H (4.2-6.1) % Total Creatine Kinase (55-170) U/L 10/12/16 10/12/16 10/12/16 Range/Units 20:02 23:09 23:47 WBC (3.8-10.6) k/uL Lymphocytes # (1.0-4.8) k/uL APTT (22.0-30.0) sec Sodium (137-145) mmol/L Glucose (74-99) mg/dL POC Glucose (mg/dL) 309 H 301 H (75-99) mg/dL Hemoglobin A1c (4.2-6.1) % Total Creatine Kinase 54 L (55-170) U/L 10/13/16 10/13/16 10/13/16 Range/Units 06:27 06:27 06:55 WBC (3.8-10.6) k/uL Lymphocytes # (1.0-4.8) k/uL APTT 31.4 H (22.0-30.0) sec Sodium (137-145) mmol/L Glucose (74-99) mg/dL POC Glucose (mg/dL) 142 H (75-99) mg/dL Hemoglobin A1c (4.2-6.1) % Total Creatine Kinase 48 L (55-170) U/L 10/13/16 Range/Units 11:52 WBC (3.8-10.6) k/uL Lymphocytes # (1.0-4.8) k/uL APTT (22.0-30.0) sec Sodium (137-145) mmol/L Glucose (74-99) mg/dL POC Glucose (mg/dL) 190 H (75-99) mg/dL Hemoglobin A1c (4.2-6.1) % Total Creatine Kinase (55-170) U/L Thrombosis Risk Factor Assmnt - DVT/VTE Prophylaxis DVT/VTE Prophylaxis: Pharmacologic Prophylaxis ordered - Choose All That Apply Each Factor Represents 1 point: Age 41-60 years Each Risk Factor Represents 3 Points: History of DVT/PE Thrombosis Risk Factor Assessment Total Risk Factor Score: 4 Thrombosis Risk Factor Assessment Level: Moderate Risk Assessment and Plan Plan: 1. Chest pain with no changes on heart catheterization. Continue aspirin, atorvastatin, Plavix, Imdur, Lopressor. 2. History of coronary artery disease status post coronary artery bypass graft for 6 vessel disease with chronically occluded saphenous venous graft to the obtuse marginal branch and status post PCI of the saphenous graft to the RCA. Continue Plavix 75 mg daily, aspirin 81mg daily, Lipitor, Lopressor 100 mg twice daily, nitroglycerin as needed. 3. Diabetes mellitus type 2 and diabetic polyneuropathy. Continue Lantus 27 units at bedtime, Humalog scale. Metformin on hold 4. Hypertension, hypertensive cardiovascular disease. Continue Catapres 0.1 mg twice daily, Lopressor 100 mg twice daily, losartan/hydrochlorothiazide 1 daily. 5. Hyperlipidemia. Lipitor. 6. Obstructive sleep apnea. Continue CPAP as per home settings. 7. Chronic kidney disease stage II. 8. Chronic wound to the left forearm with recent partial wound dehiscence. Continue local wound care with [facility]. Patient placed on the observation unit. Discharge plan: Return home tomorrow Impression and plan of care have been directed as dictated by the signing physician. Dipika Mendez nurse practitioner acting as scribe for signing physician.
[2016-10-13] MEDS: ISOSORBIDE MONONITRATE ER 30 MG TAB.ER.24H PO SCH (15:15)
--- NOTE | 2016-10-13 15:22 | P.CRDCN ---
History of Present Illness Consult date: 10/13/16 History of present illness: This is a 51-year-old male. Past medical history significant for CAD with 4 vessel CABG 2006 and stenting 4 since, diabetes mellitus, hypertension and dyslipidemia. He sees Dr. Ga in the office. His last cardiac catheterization with stent placement was August 2015. Patient presents with complaints of left-sided chest squeezing with radiation into the left neck and jaw. Patient states he has been feeling this pain off-and-on for the past couple of days but it would go away rather quickly. He states the pain came on yesterday and persisted did not go away so he presented to the ER. He states the pain was associated with mild shortness of breath. He denies dizziness, diaphoresis, palpitations, nausea or vomiting. He states when he got to the hospital they gave him sublingual nitroglycerin and the pain was relieved. His subsequent came back overnight and is currently they're at a 3 out of 10. His CABG in 2012 consisted of 4 vessel anastomosis MAE to LAD, VG to RCA, radial to OM 2, VG to OM1. Subsequent stenting of the SVG to RCA in 2013, SVG to RCA 2014, proximal ramus 2014, ostial ramus 2016. The patient states he is compliant with all medications. Has not seen a spool sander since last year but states he follows regularly with Dr. Montesinos. EKG done shows ST and T wave abnormality that is new from previous EKG , rate of 68 beats per minute. When compared with old EKG this appears different. CBC was within normal limits, coagulation profile at baseline. BMP is normal. First set of CPK and troponin are normal x []. Chest x-ray showed no acute cardiopulmonary process. Review of Systems REVIEW OF SYSTEMS: Patient complains of ongoing midsternal chest discomfort 3/ 10. No shortness of breath. No diaphoresis. Denies headache, dizziness, blurred vision, double vision. No dyspnea on exertion. Patient denies any stomach discomfort. No nausea, vomiting. No hematochezia. No hematemesis. Denies any black stools or blood in his stools. No syncope. No palpitations. No cough. No recent fever or chills. No muscle weakness or numbness. Past Medical History Past Medical History: Asthma, Coronary Artery Disease (CAD), Chest Pain / Angina , Diabetes Mellitus, Deep Vein Thrombosis (DVT), Hyperlipidemia, Hypertension, Myocardial Infarction (NH), Sleep Apnea/CPAP/BIPAP Additional Past Medical History / Comment(s): Obstructive sleep apnea CPAP, IDDM type II, DVT L leg, cellulitis L leg 2012, back pain. Hypertension, hypertensive cardiovascular disease with left ventricular hypertrophy, chronic low back pain, diabetic polyneuropathy, chronic kidney disease Last Myocardial Infarction Date:: 06/23/13 History of Any Multi-Drug Resistant Organisms: MRSA Date of last positivie culture/infection: 08/2014 MDRO Source:: abdomin around naval Past Surgical History: Back Surgery, Coronary Bypass/CABG, Heart Catheterization , Heart Catheterization With Stent, Hernia Repair Additional Past Surgical History / Comment(s): 08/28/15 PCI with stent to ramus. Other surgical hx: Spinal fusion L4-L5, fasciotomy left thigh,CABG 2006- [facility], PCI with 3 previous stents, bilateral inguinal hernia repairs. Fasciotomy Left forearm - June 2016 Past Anesthesia/Blood Transfusion Reactions: No Reported Reaction Date of Last Stent Placement:: 08/28/15 Past Psychological History: No Psychological Hx Reported Additional Psychological History / Comment(s): Pt is independent. He is currently living with his parents. Smoking Status: Never smoker Past Alcohol Use History: None Reported Additional Past Alcohol Use History / Comment(s): Vision states he is a lifelong nonsmoker. He denies any medical marijuana, marijuana, street drug use. He is and lives with a roommate. He is on disability due to his diabetes and coronary artery disease. He has one son with no major medical problems. Past Drug Use History: None Reported - Past Family History Brother(s) Additional Family Medical History / Comment(s): Patient has 1 brother and 1 sister with no major medical problems. Mother Family Medical History: Diabetes Mellitus Additional Family Medical History / Comment(s): Mother at the age of 84 from with history of chronic renal disease stage IV and congestive heart failure. Father Family Medical History: Coronary Artery Disease (CAD), Myocardial Infarction (NH ) Additional Family Medical History / Comment(s): Father of a NH at the age of 60 yrs with history of COPD. Medications and Allergies Home Medications Medication Instructions Recorded Confirmed Type Furosemide [Lasix] 20 mg PO DAILY PRN 06/23/13 10/12/16 History Losartan/Hydrochlorothiazide 1 tab PO DAILY 06/23/13 10/12/16 History [Losartan-Hctz 100-25 mg Tab] Metoprolol Tartrate [Lopressor] 100 mg PO BID 06/23/13 10/12/16 History cloNIDine HCL [Catapres] 0.1 mg PO BID 06/23/13 10/12/16 History metFORMIN HCL [Glucophage] 1,000 mg PO BID 06/23/13 10/12/16 History Atorvastatin [Lipitor] 80 mg PO HS 08/14/14 10/12/16 History Insulin Aspart [NovoLOG] 8 - 10 units SQ BID@0800,1200 08/14/14 10/12/16 History Insulin Glargine [Lantus] 27 unit SQ HS 08/14/14 10/12/16 History Insulin Aspart [NovoLOG] 15 units SQ AC-SUPPER 08/17/14 10/12/16 History Insulin Aspart [NovoLOG] See Protocol SQ AC-TID 08/17/14 10/12/16 History Nitroglycerin Sl Tabs [Nitrostat] 0.4 mg SUBLINGUAL Q5M PRN 09/07/14 10/12/16 History Aspirin 325 mg PO HS 07/02/16 10/12/16 History Ergocalciferol [Vitamin D2] 50,000 unit PO Q14D 07/02/16 10/12/16 History hydrALAZINE HCL 75 mg PO BID 07/17/16 10/12/16 History Allergies Allergy/AdvReac Type Severity Reaction Status Date / Time vancomycin Allergy Rash/Hives Verified 10/13/16 00:07 adhesive tape AdvReac Rash/Hives Verified 10/13/16 00:07 Physical Exam Vitals: Vital Signs Temp Pulse Pulse Resp BP BP Pulse Ox 10/13/16 07:40 97.9 F 57 L 18 153/89 100 10/13/16 04:00 62 16 10/13/16 03:42 98.4 F 60 16 139/77 99 10/13/16 00:00 18 10/12/16 23:10 98.5 F 66 16 152/90 98 10/12/16 22:46 98.4 F 62 16 143/83 99 10/12/16 21:40 97.8 F 63 16 164/93 99 10/12/16 20:26 85 18 164/86 98 10/12/16 19:19 98.5 F 74 18 136/73 97 10/12/16 19:10 73 17 151/91 99 10/12/16 18:54 73 17 150/90 99 10/12/16 18:42 70 18 185/100 97 10/12/16 17:21 98.6 F 79 18 139/88 98 Intake and Output 10/12/16 10/13/16 10/13/16 22:59 06:59 14:59 Intake Total 50 458 154.475 Balance 50 458 154.475 Intake: IV 160 0.9 NS @ KVO 160 Amount of Fluid Infused ( 50 ml) Intake, IV Titration 148 154.475 Amount Heparin Sodium,Porcine/ 148 154.475 D5w Pmx 25,000 unit In Dextrose/Water 1 500ml. bag @ 12 UNITS/KG/HR 18.5 mls/hr IV .Q24H [facility] Rx#: [id number] Oral 150 Other: Voiding Method Toilet # Voids 3 Weight 79.379 kg GENERAL: This is a 51-year-old male in no apparent distress at the time of my examination. HEENT: Head is atraumatic, normocephalic. Pupils are equal, round. Sclerae anicteric. Conjunctivae are clear. Mucous membranes of the mouth are moist. Neck is supple. There is no jugular venous distention. No carotid bruit is heard. LUNGS: Clear to auscultation no wheezes, rales or rhonchi. No chest wall tenderness is noted on palpation or with deep breathing. HEART: Regular rate and rhythm with systolic ejection murmur heard at the base, no rubs or gallops. S1 and S2 heard. ABDOMEN: Soft, nontender. Bowel sounds are heard. No organomegaly noted. EXTREMITIES: 2+ peripheral pulses with no evidence of peripheral edema and no calf tenderness noted. NEUROLOGIC: Patient is awake, alert and oriented x3. Results 10/13/16 06:27 10/12/16 18:35 Cardiac Enzymes 10/12/16 10/12/16 10/12/16 Range/Units 18:35 18:35 23:47 AST 25 (17-59) U/L CK-MB (CK-2) 1.3 1.0 (0.0-2.4) ng/mL Troponin I <0.012 0.012 (0.000-0.034) ng/mL 10/13/16 Range/Units 06:27 AST (17-59) U/L CK-MB (CK-2) 1.0 (0.0-2.4) ng/mL Troponin I 0.014 (0.000-0.034) ng/mL Coagulation 10/12/16 10/13/16 Range/Units 18:35 06:27 PT 9.8 (9.0-12.0) sec APTT 24.3 31.4 H (22.0-30.0) sec Lipids 10/13/16 Range/Units 06:27 Triglycerides 113 (<150) mg/dL Cholesterol 146 (<200) mg/dL HDL Cholesterol 42 (40-60) mg/dL CBC 10/12/16 10/13/16 Range/Units 18:35 06:27 WBC 3.6 L (3.8-10.6) k/uL RBC 5.86 (4.30-5.90) m/uL Hgb 15.7 (13.0-17.5) gm/dL Hct 47.6 (39.0-53.0) % Plt Count 181 157 (150-450) k/uL Comprehensive Metabolic Panel 10/12/16 Range/Units 18:35 Sodium 136 L (137-145) mmol/L Potassium 3.6 (3.5-5.1) mmol/L Chloride 99 (98-107) mmol/L Carbon Dioxide 23 (22-30) mmol/L BUN 17 (9-20) mg/dL Creatinine 0.76 (0.66-1.25) mg/dL Glucose 433 H (74-99) mg/dL Calcium 9.0 (8.4-10.2) mg/dL AST 25 (17-59) U/L ALT 43 (21-72) U/L Alkaline Phosphatase 120 (38-126) U/L Total Protein 6.9 (6.3-8.2) g/dL Albumin 4.0 (3.5-5.0) g/dL Current Medications Generic Name Dose Route Start Last Admin Trade Name Freq PRN Reason Stop Dose Admin Aspirin 325 mg 10/13/16 09:00 Aspirin PO DAILY [facility] Atorvastatin Calcium 80 mg 10/13/16 21:00 Lipitor PO HS [facility] Clonidine 0.1 mg 10/13/16 09:00 Catapres PO BID [facility] Clopidogrel Bisulfate 75 mg 10/13/16 09:00 Plavix PO DAILY [facility] Ergocalciferol 50,000 unit 10/19/16 09:00 Vitamin D2 PO Q14D [facility] Furosemide 20 mg 10/12/16 22:04 Lasix PO DAILY PRN Edema HCTZ/Losartan Potassium 2 each 10/13/16 09:00 Hyzaar 50-12.5 PO DAILY [facility] Heparin Sodium (Porcine) 0 unit 10/12/16 22:02 10/13/16 07:06 Heparin IV 4,000 unit Q6HR PRN Administration Low PTT Protocol Hydralazine HCl 75 mg 10/13/16 09:00 Apresoline PO BID [facility] Heparin Sodium/Dextrose 25,000 500 mls @ 18.5 mls/hr 10/12/16 22:15 10/13/16 07:02 unit/ IV Solution IV 15 units/kg/hr .Q24H [facility] 23.13 mls/hr Protocol Titration 12 UNITS/KG/HR Insulin Glargine 27 unit 10/12/16 23:15 10/12/16 23:38 Lantus SQ 27 unit HS [facility] Administration Insulin Human Lispro 0 unit 10/12/16 21:00 10/12/16 20:22 Humalog SQ 5 unit ACHS [facility] Administration Protocol Metformin HCl 1,000 mg 10/13/16 09:00 Glucophage PO BID [facility] Metoprolol Tartrate 100 mg 10/13/16 09:00 Lopressor PO BID [facility] Nitroglycerin 0.4 mg 10/12/16 22:02 Nitrostat SUBLINGUAL Q5M PRN Chest Pain Sodium Chloride 10 ml 10/13/16 09:00 Saline Flush IV BID [facility] Intake and Output 10/12/16 10/13/16 10/13/16 22:59 06:59 14:59 Intake Total 50 458 154.475 Balance 50 458 154.475 Intake: IV 160 0.9 NS @ KVO 160 Amount of Fluid Infused ( 50 ml) Intake, IV Titration 148 154.475 Amount Heparin Sodium,Porcine/ 148 154.475 D5w Pmx 25,000 unit In Dextrose/Water 1 500ml. bag @ 12 UNITS/KG/HR 18.5 mls/hr IV .Q24H [facility] Rx#: [id number] Oral 150 Other: Voiding Method Toilet # Voids 3 Weight 79.379 kg 10/13/16 06:27 10/12/16 18:35 Assessment and Plan Plan: ASSESSMENT 1. Chest pain with history of CAD 2. Four-vessel coronary artery bypass graft 3. Essential hypertension 4. Hyperlipidemia 5. Diabetes mellitus PLAN This case was discussed with the patient's primary spool sander Dr. Ga, he will proceed with a cardiac catheterization today to assess for any acute blockages. Further recommendations will be based upon clinical course. Patient is to remain nothing by mouth at this time we will give aspirin to equal 324 mg for the day and Lipitor 80 mg. We will also order an echocardiogram. Nurse Practitioner note has been reviewed, I agree with a documented findings and plan of care. Patient was seen and examined.
[2016-10-13 17:20] LABS: Glucose,Whole Blood 268 mg/dL (75-99)
[2016-10-13] MEDS: HYDROcodone/APAP 7.5-325MG 1 EACH TAB PO PRN (19:48)
[2016-10-13 20:00] LABS: Glucose,Whole Blood 370 mg/dL (75-99)
--- NOTE | 2016-10-13 20:10 | ECHOF ---
Referral Reason:chest pain MEASUREMENTS -------- HEIGHT: 170.2 cm WEIGHT: 79.4 kg BP: 153/89 RVIDd: 2.6 cm (< 3.3) IVSd: 1.1 cm (0.6 - 1.1) LVIDd: 4.2 cm (3.9 - 5.3) LVPWd: 1.1 cm (0.6 - 1.1) IVSs: 1.4 cm LVIDs: 3.0 cm LVPWs: 1.7 cm LAESV Index (A-L): 24.07 ml/m Ao Diam: 3.3 cm (2.0 - 3.7) AV Cusp: 1.8 cm (1.5 - 2.6) LA Diam: 3.6 cm (2.7 - 3.8) MV EXCURSION: 19.089 mm (> 18.000) MV EF SLOPE: 1384 mm/s (70 - 150) EPSS: 1.4 cm MV E Ulices: 0.63 m/s MV DecT: 266 ms MV A Ulices: 0.51 m/s MV E/A Ratio: 1.24 RAP: 5.00 mmHg RVSP: 13.79 mmHg FINDINGS -------- Sinus rhythm. This was a technically adequate study. There is borderline concentric left ventricular hypertrophy. Overall left ventricular systolic function is normal with, an EF between 55 - 60 %. The right ventricle is normal in size and function. Normal LA size by volume 22+/-6 ml/m2. The right atrium is normal in size. Aortic valve is trileaflet and is mildly thickened. There is no evidence of aortic regurgitation. There is no evidence of aortic stenosis. The mitral valve leaflets are mildly thickened. There is trace to mild mitral regurgitation. Trace tricuspid regurgitation present. There is no evidence of pulmonary hypertension. The right ventricular systolic pressure, as measured by Doppler, is 13.79mmHg. The pulmonic valve was not well visualized. The aortic root size is normal. Normal inferior vena cava with normal inspiratory collapse consistent with estimated right atrial pressure of 5 mmHg. The pericardium is normal. There is no pericardial effusion. CONCLUSIONS -------- 1. Sinus rhythm. 2. There is no evidence of pulmonary hypertension. 3. The right ventricular systolic pressure, as measured by Doppler, is 13.79mmHg. 4. The pulmonic valve was not well visualized. 5. The aortic root size is normal. 6. There is no pericardial effusion. 7. This was a technically adequate study. 8. There is borderline concentric left ventricular hypertrophy. 9. Overall left ventricular systolic function is normal with, an EF between 55 - 60 %. 10. Normal LA size by volume 22+/-6 ml/m2. 11. Aortic valve is trileaflet and is mildly thickened. 12. The mitral valve leaflets are mildly thickened. 13. There is trace to mild mitral regurgitation. 14. Trace tricuspid regurgitation present. MANUAL LATHE OPERATOR: Gabriel Perry RDCS
[2016-10-13] MEDS: INSULIN GLARGINE 100 UNIT/ML 10 ML VIAL SQ SCH (20:23)
[2016-10-13] MEDS ORDERED: ATORVASTATIN 80 MG TAB PO SCH (21:00)
[2016-10-13] MEDS ORDERED: INSULIN GLARGINE 100 UNIT/ML 10 ML VIAL SQ SCH (21:00)
[2016-10-14] MEDS: HYDROcodone/APAP 7.5-325MG 1 EACH TAB PO PRN (02:36)
[2016-10-14 06:56] LABS: Glucose,Whole Blood 249 mg/dL (75-99)
[2016-10-14 07:26] VITALS: BP 178/92; PULSE 68; RESP 18; TEMP 98.2
[2016-10-14 07:41] LABS: Mean Platelet Volume 7.5
[2016-10-14] MEDS: INSULIN LISPRO (humaLOG) 300 UNIT/3 ML VIAL SQ SCH (08:00)
[2016-10-14] MEDS: ISOSORBIDE MONONITRATE ER 30 MG TAB.ER.24H PO SCH (08:01)
[2016-10-14] MEDS: hydrALAZINE HCL 25 MG TAB PO SCH (08:02)
[2016-10-14] MEDS: METOPROLOL TARTRATE 50 MG TAB PO SCH (08:02)
[2016-10-14] MEDS: cloNIDine HCL 0.1 MG TAB PO SCH (08:02)
[2016-10-14] MEDS: LOSARTAN-HCTZ 50-12.5 MG 1 EACH TAB PO SCH (08:02)
[2016-10-14] MEDS: CLOPIDOGREL 75 MG TAB PO SCH (08:33)
[2016-10-14] MEDS ORDERED: ASPIRIN 81 MG CHEW PO SCH (09:00)
--- NOTE | 2016-10-14 14:00 | P.DS ---
Providers Date of admission: 10/12/16 22:02 Expected date of discharge: 10/14/16 Attending physician: Cedric Green Consults: 10/12/16 22:02 Consult Physician Urgent Consulting Provider: Vazquez Ventura Consult Reason/Comments: ua, ekg changes Do you want consulting provider notified?: Yes Primary care physician: Kelly Montesinos [facility] Course: This is a 51-year-old patient of Dr. Montesinos with past medical history for coronary artery disease status post 6 vessel CABG in 2006 with MAE to LAD, saphenous venous graft to the PDA, saphenous venous graft to the obtuse marginal one, radial artery to the obtuse marginal branch 2 and saphenous venous graft to the obtuse marginal 3 followed by heart catheterization with PCI and stent of the saphenous venous graft to the RCA in 2015 at which time he presented with non-ST elevated myocardial infarction. History of diabetes mellitus2 with diabetic polyneuropathy, hyperlipidemia, hypertension, hypertensive cardiovascular disease with left ventricular hypertrophy, asthma, sleep apnea on CPAP, chronic low back pain, chronic kidney disease, DVT in the past. Patient presented to [facility] emergency center with complaints of chest pain that had been going on for a couple of days and intermittent. Chest discomfort continued to worsen with pressure and a squeezing sensation. He states he did not take nitroglycerin. Patient was placed on observation unit and was seen by cardiology. He underwent heart catheterization that showed no new blockages with plan for discharge tomorrow. Patient does have a chronic wound to the left forearm for which she was under care at the wound healing center and was discharged. He states he was doing fine until 3 days ago when the wound opened. 10/14: No issues over night. Patient will be discharged home today in stable condition. Cardiology has started him on Imdur which he has refused to take. Prescription was provided. Discharge Diagnoses: 1. Chest pain with no changes on heart catheterization. 2. History of coronary artery disease status post coronary artery bypass graft for 6 vessel disease with chronically occluded saphenous venous graft to the obtuse marginal branch and status post PCI of the saphenous graft to the RCA. 3. Diabetes mellitus type 2 and diabetic polyneuropathy. 4. Hypertension, hypertensive cardiovascular disease. 5. Hyperlipidemia. 6. Obstructive sleep apnea. 7. Chronic kidney disease stage II. 8. Chronic wound to the left forearm with recent partial wound dehiscence. Patient placed on the observation unit. Discharge plan: Return home Impression and plan of care have been directed as dictated by the signing physician. Dipika Mendez nurse practitioner acting as scribe for signing physician. Patient Condition at Discharge: Good Plan - Discharge Summary New Discharge Prescriptions: New Isosorbide Mononitrate ER [Imdur] 30 mg PO DAILY #30 tab Continue cloNIDine HCL [Catapres] 0.1 mg PO BID Furosemide [Lasix] 20 mg PO DAILY PRN PRN Reason: Edema Metoprolol Tartrate [Lopressor] 100 mg PO BID Losartan/Hydrochlorothiazide [Losartan-Hctz 100-25 mg Tab] 1 tab PO DAILY Clopidogrel [Plavix] 75 mg PO DAILY #30 tab Atorvastatin [Lipitor] 80 mg PO HS Insulin Aspart [NovoLOG] 8 - 10 units SQ BID@0800,1200 Insulin Glargine [Lantus] 27 unit SQ HS Insulin Aspart [NovoLOG] 15 units SQ AC-SUPPER Insulin Aspart [NovoLOG] See Protocol SQ AC-TID Nitroglycerin Sl Tabs [Nitrostat] 0.4 mg SUBLINGUAL Q5M PRN PRN Reason: Chest Pain Ergocalciferol [Vitamin D2 (DRISDOL)] 50,000 unit PO Q14D Aspirin 325 mg PO HS HYDROcodone/APAP 7.5-325MG [[place] 7.5-325] 1 - 2 tab PO Q4-6H PRN #40 tab PRN Reason: Pain hydrALAZINE HCL 75 mg PO BID metFORMIN HCL [Glucophage] 1,000 mg PO BID #0 Discharge Medication List Furosemide [Lasix] 20 mg PO DAILY PRN 06/23/13 [History] Losartan/Hydrochlorothiazide [Losartan-Hctz 100-25 mg Tab] 1 tab PO DAILY [History] Metoprolol Tartrate [Lopressor] 100 mg PO BID 06/23/13 [History] cloNIDine HCL [Catapres] 0.1 mg PO BID 06/23/13 [History] Clopidogrel [Plavix] 75 mg PO DAILY #30 tab 06/25/13 [Rx] Atorvastatin [Lipitor] 80 mg PO HS 08/14/14 [History] Insulin Aspart [NovoLOG] 8 - 10 units SQ BID@0800,1200 08/14/14 [History] Insulin Glargine [Lantus] 27 unit SQ HS 08/14/14 [History] Insulin Aspart [NovoLOG] 15 units SQ AC-SUPPER 08/17/14 [History] Insulin Aspart [NovoLOG] See Protocol SQ AC-TID 08/17/14 [History] Nitroglycerin Sl Tabs [Nitrostat] 0.4 mg SUBLINGUAL Q5M PRN 09/07/14 [History] Aspirin 325 mg PO HS 07/02/16 [History] Ergocalciferol [Vitamin D2 (DRISDOL)] 50,000 unit PO Q14D 07/02/16 [History] HYDROcodone/APAP 7.5-325MG [[place] 7.5-325] 1 - 2 tab PO Q4-6H PRN #40 tab [Rx] hydrALAZINE HCL 75 mg PO BID 07/17/16 [History] Isosorbide Mononitrate ER [Imdur] 30 mg PO DAILY #30 tab 10/14/16 [Rx] metFORMIN HCL [Glucophage] 1,000 mg PO BID #0 10/14/16 [Rx] Follow up Appointment(s)/Referral(s): Jorge Luis Ga MD [STAFF PHYSICIAN] - 2 Weeks Kelly Montesinos MD [Primary Care Provider] - 1 Week Patient Instructions/Handouts: Left Heart Catheterization (DC) Discharge Disposition: HOME SELF-CARE
--- NOTE | 2016-10-14 20:15 | CC ---
Mr. Hirsch is a 51 year old male with known history of coronary artery disease, status post coronary artery bypass grafting, history of percutaneous revascularization most recently done in August 2015 who presented with symptoms of chest discomfort with T-wave inversion in the lateral precordial leads. There was no evidence of enzymatic changes. Because of his symptoms and after evaluation by Dr. Ventura, recommendation was made regarding cardiac catheterization. The procedure as well as risks and complications were discussed with the patient who is in full understanding and agreement. PROCEDURE: The patient was brought to the lab[place] in a fasting semi-sedated state. After he received Fentanyl and Benadryl, and after achieving moderate conscious sedated state, using Xylocaine anesthesia and Seldinger technique, a 6 Greek sheath was introduced into the right femoral artery. Selective right and left coronary angiography was performed using 6 Greek 4 Bend, right and left Charis catheter, multiple views of the coronary arteries including hemiaxial views were obtained. Following that, A 6 Greek right Charis catheter was used to cannulate the saphenous vein graft to the right coronary artery, obtuse marginal branch as well as MAE to the LAD. Images of the graft were obtained. Following that, a 6 Greek tight pigtail catheter was introduced into the left ventricle and a 30 degree COLUNGA view of the left ventricle was obtained. Following that, catheter and sheath were removed. Hemostasis was obtained with deployment of an Angio-Seal. There were no immediate complications. The patient was returned to his room in stable condition. FINDINGS: LEFT MAIN: This is a large size vessel trifurcating into left circumflex, left anterior descending artery, ramus intermedius. Left main coronary artery is without any obstructive disease. LEFT ANTERIOR DESCENDING ARTERY: This vessel has a tubular lesion of 70 to 80% proximally and after the take off of the major septal test desk trouble locator, there is competitive flow with minimal antegrade flow. LEFT CIRCUMFLEX: This is a dominant vessel, the obtuse marginal branches are totally occluded. The AV groove left circumflex has diffuse intimal disease with area of stenosis up to 70%. RAMUS INTERMEDIUS: This is a moderately sized vessel, patent. The stented segment revealed no evidence of significant restenosis. RIGHT CORONARY ARTERY: This vessel is totally occluded proximally with no significant antegrade flow. SAPHENOUS VEIN GRAFT TO THE RIGHT CORONARY ARTERY: The proximal and distal anastomotic sites are patent. The stented segments in the mid body of the graft are patent. There is a 20 to 30% restenosis. The flow into the PDA Is brisk. The flow into the PLV is slow and there is evidence of diffuse intimal disease into the PLV. SAPHENOUS VEIN GRAFT TO THE OBTUSE MARGINAL BRANCH: The proximal and distal anastomotic sites are patent. The flow into the obtuse marginal branch is brisk. The body of the graft has 20 to 30% plaque without any evidence of high grade stenosis. There is retrograde flow into the first obtuse marginal branch. MAE TO THE LAD: The distal anastomotic sites are patent. The flow into the LAD is brisk. There is no evidence of high grade stenosis. LEFT VENTRICULOGRAM: Left ventriculogram was performed in 30 degree COLUNGA view and revealed normal left ventricular size and systolic function. Ejection fraction was 60%. There was no significant mitral regurgitation. HEMODYNAMICS: There was no gradient across the aortic valve. The left ventricular end diastolic pressure was 12 to 14 mmHg. CONCLUSION: 1. Severe triple vessel coronary artery disease. 2. Chronically occluded LAD, left circumflex and RCA. 3. Patent stent into the ramus intermedius. 4. Patent saphenous vein graft to the obtuse marginal branch in the right coronary artery with mild to moderate disease in the body of the graft to the RCA. 5. Patent MAE to the LAD. 6. Normal left ventricular size and systolic function. RECOMMENDATIONS: In view of the findings and anatomy, I have recommended continued medical therapy with the aggressive coronary risk factor modifications that have been initiated. Those findings and recommendations were discussed with the patient who is in full understanding and agreement. Duration of procedure: 20 minutes. TROY
--- NOTE | 2016-10-14 20:19 | MISC ---
Dear Dr. Montesinos: I had the pleasure of performing cardiac catheterization on Mr. Hirsch at [facility] on the september and a full copy of procedure note will be forwarded to you. In brief, he was found to have severe triple vessel coronary artery disease with patent stent of the ramus intermedius as well as patent saphenous vein graft to the RCA and to the left circumflex obtuse marginal branch and patent MAE to the LAD. Based on this finding, I have recommended continued medical therapy with the aggressive coronary risk factor modifications that have been initiated and it is possible that some of the discomfort is related to the diffuse intimal disease involving the right PLV. Depending on his progress, further recommendations will made. Thank you again for allowing me to participate in his care. Please feel free to call for any questions. Sincerely yours, TROY
[2016-10-19] MEDS ORDERED: ERGOCALCIFEROL 50,000 UNIT CAP PO SCH (09:00)
== END 2016-10-14 10:30 | disposition home or self-care (01) ==
LOC: EC 17:18 → 3OBS 22:02
PROVIDERS: ADMIT Internal Medicine Geriatric Medicine; ATTEND Internal Medicine Geriatric Medicine
DX: R07.89 Other chest pain (principal); I25.2 Old myocardial infarction; I25.10 Atherosclerotic heart disease of native coronary artery without angina pectoris; G89.29 Other chronic pain; M54.5 Low back pain; I13.10 Hypertensive heart and chronic kidney disease without heart failure, with stage 1 through stage 4 chronic kidney disease, or unspecified chronic kidney disease; N18.2 Chronic kidney disease, stage 2 (mild); E11.22 Type 2 diabetes mellitus with diabetic chronic kidney disease; G47.33 Obstructive sleep apnea (adult) (pediatric); E11.42 Type 2 diabetes mellitus with diabetic polyneuropathy; E78.5 Hyperlipidemia, unspecified; J45.909 Unspecified asthma, uncomplicated; R94.31 Abnormal electrocardiogram [ECG] [EKG]; T81.30XA Disruption of wound, unspecified, initial encounter; X58.XXXA Exposure to other specified factors, initial encounter; S51.802A Unspecified open wound of left forearm, initial encounter; Z95.5 Presence of coronary angioplasty implant and graft; Z95.1 Presence of aortocoronary bypass graft; Z79.899 Other long term (current) drug therapy; Z79.84 Long term (current) use of oral hypoglycemic drugs; Z79.4 Long term (current) use of insulin; Z79.82 Long term (current) use of aspirin; Z79.02 Long term (current) use of antithrombotics/antiplatelets; Z88.1 Allergy status to other antibiotic agents; Z91.048 Other nonmedicinal substance allergy status; Z86.718 Personal history of other venous thrombosis and embolism; Z86.14 Personal history of Methicillin resistant Staphylococcus aureus infection; Z99.89 Dependence on other enabling machines and devices; Z82.49 Family history of ischemic heart disease and other diseases of the circulatory system; Z98.1 Arthrodesis status
CPT/HCPCS: 96361; 96365; 96366; 96376 ×2; 99291; 36415; 93005; 93306; 93459; 80061; 80053; 83036; 82550 ×2; 82553 ×2; 83735; 84484 ×2; 85025; 85049 ×2; 85610; 85730 ×2; 71020; G0378 ×3; C1760; C1894; C1769; J2001; J1644 ×3; J3010; Q9967

== ENCOUNTER 2016-12-03 06:16 | Inpatient (IN) | payer MEDICARE ==
[2016-12-03 06:31] LABS: Glucose,Whole Blood 198 mg/dL (75-99)
[2016-12-03] MEDS ORDERED: MORPHINE SULFATE 4 MG/ML SYRINGE IV STA (06:47)
[2016-12-03] MEDS ORDERED: SODIUM CHLORIDE 0.9% 1,000 ML IV STA (06:47)
--- NOTE | 2016-12-03 06:50 | ED ---
General Adult HPI - General Source: patient, RN notes reviewed, old records reviewed Mode of arrival: ambulatory Limitations: no limitations <Geronimo Conn - Last Filed: 12/03/16 06:48> <Kee Colon - Last Filed: 12/03/16 08:15> - General Chief complaint: Extremity Problem,Nontraumatic Stated complaint: foot infection Time Seen by Provider: 12/03/16 06:45 - History of Present Illness Initial comments: This is a 51-year-old male to the ER for evaluation. This patient presents for evaluation regarding foot pain severe left foot pain left foot swelling. Left foot erythema. Patient is bed history of diabetes bed history of infection and significant swelling related to infection. Patient's last hospital about 6 months ago for similar issue with left upper extremity. Patient states he dropped object on his left foot causing severe left foot pain left foot swelling. Pain the point of his left leg where he can't walk Movement Bear weight on that leg. Patient denies any other injuries. Denies fevers. Denies any other complaints of her areas of pain (Geronimo Conn) - Related Data Home Medications Medication Instructions Recorded Confirmed Furosemide [Lasix] 20 mg PO DAILY PRN 06/23/13 12/03/16 Losartan/Hydrochlorothiazide 1 tab PO DAILY 06/23/13 12/03/16 [Losartan-Hctz 100-25 mg Tab] Metoprolol Tartrate [Lopressor] 100 mg PO BID 06/23/13 12/03/16 cloNIDine HCL [Catapres] 0.1 mg PO BID 06/23/13 12/03/16 Atorvastatin [Lipitor] 80 mg PO HS 08/14/14 12/03/16 Insulin Aspart [NovoLOG] 8 - 10 units SQ BID@0800,1200 08/14/14 12/03/16 Insulin Glargine [Lantus] 27 unit SQ HS 08/14/14 12/03/16 Insulin Aspart [NovoLOG] 15 units SQ AC-SUPPER 08/17/14 12/03/16 Insulin Aspart [NovoLOG] See Protocol SQ AC-TID 08/17/14 12/03/16 Nitroglycerin Sl Tabs [Nitrostat] 0.4 mg SUBLINGUAL Q5M PRN 09/07/14 12/03/16 Aspirin 325 mg PO HS 07/02/16 12/03/16 Ergocalciferol [Vitamin D2 50,000 unit PO Q14D 07/02/16 12/03/16 (DRISDOL)] hydrALAZINE HCL 75 mg PO BID 07/17/16 12/03/16 Previous Rx's Medication Instructions Recorded Clopidogrel [Plavix] 75 mg PO DAILY #30 tab 06/25/13 HYDROcodone/APAP 7.5-325MG [[place] 1 - 2 tab PO Q4-6H PRN #40 tab 07/07/16 7.5-325] metFORMIN HCL [Glucophage] 1,000 mg PO BID #0 10/14/16 Allergies Allergy/AdvReac Type Severity Reaction Status Date / Time vancomycin Allergy Rash/Hives Verified 12/03/16 07:23 adhesive tape AdvReac Rash/Hives Verified 12/03/16 07:23 Review of Systems ROS Other: All systems not noted in ROS Statement are negative. <Geronimo Conn - Last Filed: 12/03/16 06:48> ROS Other: All systems not noted in ROS Statement are negative. <Kee Colon - Last Filed: 12/03/16 08:15> ROS Statement: Those systems with pertinent positive or pertinent negative responses have been documented in the HPI. Past Medical History Past Medical History: Asthma, Coronary Artery Disease (CAD), Chest Pain / Angina , Diabetes Mellitus, Deep Vein Thrombosis (DVT), Hyperlipidemia, Hypertension, Myocardial Infarction (MD), Sleep Apnea/CPAP/BIPAP Additional Past Medical History / Comment(s): Obstructive sleep apnea CPAP, IDDM type II, DVT L leg, cellulitis L leg 2012, back pain. Hypertension, hypertensive cardiovascular disease with left ventricular hypertrophy, chronic low back pain, diabetic polyneuropathy, chronic kidney disease Last Myocardial Infarction Date:: 06/23/13 History of Any Multi-Drug Resistant Organisms: MRSA Date of last positivie culture/infection: 08/2014 MDRO Source:: abdomin around naval Past Surgical History: Back Surgery, Coronary Bypass/CABG, Heart Catheterization , Heart Catheterization With Stent, Hernia Repair Additional Past Surgical History / Comment(s): 08/28/15 PCI with stent to ramus. Other surgical hx: Spinal fusion L4-L5, fasciotomy left thigh,CABG 2007- 6 VESSELS, PCI with 3 previous stents, bilateral inguinal hernia repairs. Fasciotomy Left forearm - June 2016 Past Anesthesia/Blood Transfusion Reactions: No Reported Reaction Date of Last Stent Placement:: 08/28/15 Past Psychological History: No Psychological Hx Reported Smoking Status: Never smoker Past Alcohol Use History: None Reported Past Drug Use History: None Reported - Past Family History Brother(s) Additional Family Medical History / Comment(s): Patient has 1 brother and 1 sister with no major medical problems. Mother Family Medical History: Diabetes Mellitus Additional Family Medical History / Comment(s): Mother at the age of 84 from with history of chronic renal disease stage IV and congestive heart failure. Father Family Medical History: Coronary Artery Disease (CAD), Myocardial Infarction (MD ) Additional Family Medical History / Comment(s): Father of a MD at the age of 60 yrs with history of COPD. <Geronimo Conn - Last Filed: 12/03/16 06:48> General Exam Limitations: no limitations General appearance: alert, in no apparent distress Head exam: Present: atraumatic, normocephalic, normal inspection Eye exam: Present: normal appearance, PERRL, EOMI. Absent: scleral icterus, conjunctival injection, periorbital swelling ENT exam: Present: normal exam, mucous membranes moist Neck exam: Present: normal inspection. Absent: tenderness, meningismus, lymphadenopathy Respiratory exam: Present: normal lung sounds bilaterally. Absent: respiratory distress, wheezes, rales, rhonchi, stridor Cardiovascular Exam: Present: regular rate, normal rhythm, normal heart sounds. Absent: systolic murmur, diastolic murmur, rubs, gallop, clicks GI/Abdominal exam: Present: soft, normal bowel sounds. Absent: distended, tenderness, guarding, rebound, rigid Extremities exam: Present: normal inspection, full ROM, normal capillary refill , other (Left lower extremity edema erythema tenderness and swelling). Absent: tenderness, pedal edema, joint swelling, calf tenderness Back exam: Present: normal inspection Neurological exam: Present: alert, oriented X3, CN II-XII intact Psychiatric exam: Present: normal affect, normal mood Skin exam: Present: warm, dry, intact, normal color. Absent: rash <Geronimo Conn Last Filed: 12/03/16 06:48> Course <Geronimo Conn Filed: 12/03/16 06:48> <Kee Colon - Last Filed: 12/03/16 08:15> Vital Signs 12/03/16 06:20 Temperature 97.7 F Pulse Rate 89 Respiratory 18 Rate Blood Pressure 191/93 O2 Sat by Pulse 98 Oximetry - Reevaluation(s) Reevaluation #1: 12/03/16 08:11 Patient reevaluated by myself, Dr. Colon. Patient does have evidence of cellulitis of the left dorsal foot extending to the ankle. There is erythema extending streak-like pattern to above the left knee. There is tenderness to the skin mostly near the ankle. Minimal calf tenderness. No significant swelling. Pedal pulses bilaterally are intact. Patient updated on results and plan. Case discussed in detail with Dr. Montesinos, who will admit his patient. He does want patient switched to Ancef 2 g every 8. Patient does not meet sepsis criteria. (Kee Colon) EKG Findings - EKG Comments: EKG Findings:: Normal sinus rhythm 84. MI 150. QRS 100. QT 360. QTC 434. Normal axis. Normal QRS. Nonspecific ST-T. <Kee Colon - Last Filed: 12/03/16 08:15> Medical Decision Making - Lab Data Result diagrams: 12/03/16 06:50 12/03/16 06:50 - Radiology Data Radiology results: image reviewed (Chest x-ray, left foot and ankle x-rays show no acute process.) <Kee Colon - Last Filed: 12/03/16 08:15> - Lab Data Lab Results 12/03/16 12/03/16 12/03/16 Range/Units 06:28 06:50 06:50 WBC 14.7 H (3.8-10.6) k/uL RBC 5.48 (4.30-5.90) m/uL Hgb 15.0 (13.0-17.5) gm/dL Hct 45.4 (39.0-53.0) % MCV 82.8 (80.0-100.0) fL MCH 27.4 (25.0-35.0) pg MCHC 33.1 (31.0-37.0) g/dL RDW 14.1 (11.5-15.5) % Plt Count 200 (150-450) k/uL Neutrophils % 81 % Lymphocytes % 8 % Monocytes % 7 % Eosinophils % 2 % Basophils % 0 % Neutrophils # 12.0 H (1.3-7.7) k/uL Lymphocytes # 1.1 (1.0-4.8) k/uL Monocytes # 1.0 (0-1.0) k/uL Eosinophils # 0.3 (0-0.7) k/uL Basophils # 0.1 (0-0.2) k/uL PT (9.0-12.0) sec INR (<1.2) APTT (22.0-30.0) sec D-Dimer (<0.60) mg/L FEU Sodium (137-145) mmol/L Potassium (3.5-5.1) mmol/L Chloride (98-107) mmol/L Carbon Dioxide (22-30) mmol/L Anion Gap mmol/L BUN (9-20) mg/dL Creatinine (0.66-1.25) mg/dL Est GFR (MDRD) Af Amer (>60 ml/min/1.73 sqM) Est GFR (MDRD) Non-Af (>60 ml/min/1.73 sqM) Glucose (74-99) mg/dL POC Glucose (mg/dL) 198 H (75-99) mg/dL POC Glu High School Music Instructor ID Vito Mayer Plasma Lactic Acid Oskar (0.7-2.0) mmol/L Calcium (8.4-10.2) mg/dL Phosphorus (2.5-4.5) mg/dL Magnesium (1.6-2.3) mg/dL Total Bilirubin (0.2-1.3) mg/dL AST (17-59) U/L ALT (21-72) U/L Alkaline Phosphatase (38-126) U/L Total Creatine Kinase 233 H (55-170) U/L CK-MB (CK-2) 3.0 H* (0.0-2.4) ng/mL CK-MB (CK-2) Rel Index 1.3 Troponin I 0.018 (0.000-0.034) ng/mL Total Protein (6.3-8.2) g/dL Albumin (3.5-5.0) g/dL 12/03/16 12/03/16 12/03/16 Range/Units 06:50 06:50 06:50 WBC (3.8-10.6) k/uL RBC (4.30-5.90) m/uL Hgb (13.0-17.5) gm/dL Hct (39.0-53.0) % MCV (80.0-100.0) fL MCH (25.0-35.0) pg MCHC (31.0-37.0) g/dL RDW (11.5-15.5) % Plt Count (150-450) k/uL Neutrophils % % Lymphocytes % % Monocytes % % Eosinophils % % Basophils % % Neutrophils # (1.3-7.7) k/uL Lymphocytes # (1.0-4.8) k/uL Monocytes # (0-1.0) k/uL Eosinophils # (0-0.7) k/uL Basophils # (0-0.2) k/uL PT 10.7 (9.0-12.0) sec INR 1.1 (<1.2) APTT 25.1 (22.0-30.0) sec D-Dimer 0.54 (<0.60) mg/L FEU Sodium 137 (137-145) mmol/L Potassium 3.8 (3.5-5.1) mmol/L Chloride 96 L (98-107) mmol/L Carbon Dioxide 25 (22-30) mmol/L Anion Gap 16 mmol/L BUN 23 H (9-20) mg/dL Creatinine 0.84 (0.66-1.25) mg/dL Est GFR (MDRD) Af Amer >60 (>60 ml/min/1.73 sqM) Est GFR (MDRD) Non-Af >60 (>60 ml/min/1.73 sqM) Glucose 233 H (74-99) mg/dL POC Glucose (mg/dL) (75-99) mg/dL POC Glu [employer] School [employer] Instructor ID Plasma Lactic Acid Oskar 2.4 H* (0.7-2.0) mmol/L Calcium 9.2 (8.4-10.2) mg/dL Phosphorus 2.9 (2.5-4.5) mg/dL Magnesium 1.7 (1.6-2.3) mg/dL Total Bilirubin 1.2 (0.2-1.3) mg/dL AST 32 (17-59) U/L ALT 50 (21-72) U/L Alkaline Phosphatase 109 (38-126) U/L Total Creatine Kinase (55-170) U/L CK-MB (CK-2) (0.0-2.4) ng/mL CK-MB (CK-2) Rel Index Troponin I (0.000-0.034) ng/mL Total Protein 7.3 (6.3-8.2) g/dL Albumin 4.3 (3.5-5.0) g/dL Disposition <Geronimo Conn - Last Filed: 12/03/16 06:48> Decision Time: 08:15 <Kee Colon - Last Filed: 12/03/16 08:15> Clinical Impression: Cellulitis Disposition: ADMITTED IP TO THIS HOSP Referrals: Kelly Montesinos MD [Primary Care Provider] - 1-2 days
[2016-12-03] MEDS ORDERED: MORPHINE SULFATE 2 MG/ML SYRINGE IVP ONE ×2 (07:04→07:05)
[2016-12-03 07:07] LABS: Basophils # (A) 0.1 k/uL (0-0.2); Basophils % (A) 0 %; CH 27.6; CHCM 33.5; Eosinophils # (A) 0.3 k/uL (0-0.7); Eosinophils % (A) 2 %; HCT 45.4 % (39.0-53.0); HDW 2.87; Luc # (Auto) 0.29; Luc % (Auto) 2; Lymphocytes # (A) 1.1 k/uL (1.0-4.8); Lymphocytes % (A) 8 %; MCH 27.4 pg (25.0-35.0); MCHC 33.1 g/dL (31.0-37.0); MCV 82.8 fL (80.0-100.0); Mean Platelet Volume 7.6; Monocytes % (A) 7 %; Neutrophils % (A) 81 %; RBC 5.48 m/uL (4.30-5.90); RDW 14.1 % (11.5-15.5); WBC 14.7 k/uL (3.8-10.6); WBC (Perox) 14.49
--- NOTE | 2016-12-03 07:17 | XR ---
EXAMINATION TYPE: XR chest 2V DATE OF EXAM: 12/03/2016 COMPARISON: 10/12/2016 HISTORY: Shortness of breath TECHNIQUE: Frontal and lateral views of the chest are obtained. FINDINGS: Scattered senescent parenchymal changes noted. Hyperinflation compatible with COPD. No evidence for infiltrate. No evidence for atelectasis. Heart size is stable. Mediastinal structures are stable and grossly unremarkable. No evidence for hilar prominence. Degenerative changes dorsal spine. IMPRESSION: 1. No evidence for acute pulmonary disease.
[2016-12-03 07:18] LABS: Anion Gap 16 mmol/L; Calcium 9.2 mg/dL (8.4-10.2); Carbon Dioxide 25 mmol/L (22-30); Chloride 96 mmol/L (98-107); Glucose 233 mg/dL (74-99); Non-African American GFR(MDRD) >60 (>60 ml/min/1.73 sqM); Sodium 137 mmol/L (137-145); Total Bilirubin 1.2 mg/dL (0.2-1.3); Total Protein 7.3 g/dL (6.3-8.2)
--- NOTE | 2016-12-03 07:18 | XR ---
EXAMINATION TYPE: XR foot complete LT, XR ankle complete LT DATE OF EXAM: 12/03/2016 COMPARISON: NONE HISTORY: Pain TECHNIQUE: 3 views of the left ankle and foot are submitted for evaluation. FINDINGS: There is no evidence for fracture or dislocation. Ankle mortise is intact. Soft tissue swel ling is seen about the lateral soft tissues. Correlate for traumatic soft tissue injury versus cellul itis. IMPRESSION: 1. No evidence for acute fracture.
[2016-12-03 07:19] LABS: ALT 50 U/L (21-72); AST 32 U/L (17-59); Blood Urea Nitrogen 23 mg/dL (9-20); Magnesium 1.7 mg/dL (1.6-2.3); Phosphorus 2.9 mg/dL (2.5-4.5); Potassium 3.8 mmol/L (3.5-5.1)
[2016-12-03 07:20] LABS: Alkaline Phosphatase 109 U/L (38-126)
[2016-12-03 07:25] LABS: INR 1.1 (<1.2); Partial Thromboplastin Time 25.1 sec (22.0-30.0); Prothrombin Time 10.7 sec (9.0-12.0)
[2016-12-03] MEDS ORDERED: MORPHINE SULFATE 2 MG/ML SYRINGE IVP STA (07:29)
[2016-12-03 07:42] LABS: Troponin I 0.018 ng/mL (0.000-0.034)
[2016-12-03] MEDS ORDERED: HYDROcodone/APAP 5-325MG 1 EACH TAB PO PRN (08:16)
[2016-12-03] MEDS ORDERED: NALOXONE 0.4 MG/ML 1 ML VIAL IV PRN (08:16)
[2016-12-03] MEDS: SODIUM CHLORIDE 0.9% 1,000 ML IV SCH ×3 (09:14→23:13)
[2016-12-03] MEDS: ceFAZolin 2 GM in SODIUM CHLORIDE 0.9% 100 ML IVPB SCH ×3 (09:22→23:12)
[2016-12-03] MEDS: HYDROmorphone 1 MG/ML 1 ML SYRINGE IVP PRN ×3 (09:22→18:09)
[2016-12-03] MEDS ORDERED: FUROSEMIDE 20 MG TAB PO PRN (10:22)
[2016-12-03] MEDS ORDERED: NITROGLYCERIN SL TABS 0.4 MG TAB SUBLINGUAL PRN (10:22)
[2016-12-03] MEDS ORDERED: ERGOCALCIFEROL 50,000 UNIT CAP PO SCH (10:30)
[2016-12-03 11:13] LABS: Glucose,Whole Blood 259 mg/dL (75-99)
[2016-12-03] MEDS: hydrALAZINE HCL 25 MG TAB PO SCH ×2 (11:13→20:22)
[2016-12-03] MEDS: METOPROLOL TARTRATE 50 MG TAB PO SCH ×2 (11:13→20:22)
[2016-12-03] MEDS: LOSARTAN-HCTZ 50-12.5 MG 1 EACH TAB PO SCH (11:13)
[2016-12-03] MEDS: cloNIDine HCL 0.1 MG TAB PO SCH ×2 (11:13→20:22)
[2016-12-03] MEDS: metFORMIN 500 MG TAB PO SCH ×2 (11:14→17:28)
[2016-12-03] MEDS: CLOPIDOGREL 75 MG TAB PO SCH (11:14)
--- NOTE | 2016-12-03 11:46 | P.HPIM ---
History of Present Illness H&P Date: 12/03/16 Chief Complaint: left leg cellulitis This is a 51-year-old patient of Dr. Montesinos with past medical history for coronary artery disease status post 6 vessel CABG in 2006 with MAE to LAD, saphenous venous graft to the PDA, saphenous venous graft to the obtuse marginal one, radial artery to the obtuse marginal branch 2 and saphenous venous graft to the obtuse marginal 3 followed by heart catheterization with PCI and stent of the saphenous venous graft to the RCA in 2015 at which time he presented with non-ST elevated myocardial infarction. History of diabetes mellitus2 with diabetic polyneuropathy, hyperlipidemia, hypertension, hypertensive cardiovascular disease with left ventricular hypertrophy, asthma, sleep apnea on CPAP, chronic low back pain, chronic kidney disease, DVT in the past. Patient presented to [facility] emergency center with complaints of increased pain and swelling of the left lower extremity after he dropped a log of wood on his leg and foot on the [place], he got back to [place] at around midnight went to the recliner slept all night long woke up in the morning with significant erythema and swelling of the left foot on the left leg with lymphangitic streaks orally up to the leg patient ended up coming to the ER for eval you she was found to have a elevated white count 15,000 with elevated lactic acid, patient was started on IV antibiotic in the form of Ancef 2 g IV piggyback every 8 hours, he was admitted to the hospital Silvadene cream will be applied to the left lower extremity and wrapped with a Kerlix and Del wrap. Venous Doppler of the left lower extremity will be obtained. Review of Systems Constitutional: Reports malaise, Reports weakness, Denies chills, Denies fever, Denies lethargy, Denies weight loss Eyes: denies blurred vision, denies bulging eye, denies decreased vision Ears: deny: decreased hearing Ears, nose, mouth and throat: Denies dysphagia, Denies neck lump, Denies swelling in throat, Denies sore throat Cardiovascular: Reports decreased exercise tolerance, Reports dyspnea on exertion, Reports high blood pressure, Denies chest pain, Denies phlebitis, Denies rapid heart beat, Denies shortness of breath, Denies syncope Respiratory: Denies congestion, Denies cough, Denies cough with sputum, Denies home oxygen, Denies sleep apnea, Denies snoring, Denies wheezing Gastrointestinal: Denies abdominal pain, Denies bloating, Denies BRBPR, Denies heartburn, Denies hematemesis, Denies melena, Denies nausea, Denies vomiting Musculoskeletal: Denies myalgias Musculoskeletal: left: ankle pain, ankle stiffness, ankle swelling, absent: elbow pain, elbow stiffness, elbow swelling, foot pain, foot stiffness, foot swelling, hand pain, hand stiffness, hand swelling, hip pain, hip stiffness, hip swelling, knee pain, knee stiffness, knee swelling, shoulder pain, shoulder stiffness, shoulder swelling, wrist pain, wrist stiffness, wrist swelling Integumentary: Denies pruritus, Denies rash Neurological: Reports numbness, Denies weakness Psychiatric: Denies anxiety, Denies depression Endocrine: Denies fatigue, Denies weight change Past Medical History Past Medical History: Asthma, Coronary Artery Disease (CAD), Chest Pain / Angina , Diabetes Mellitus, Deep Vein Thrombosis (DVT), Hyperlipidemia, Hypertension, Myocardial Infarction ([place]), Sleep Apnea/CPAP/BIPAP Additional Past Medical History / Comment(s): Obstructive sleep apnea CPAP, bronchitis, IDDM type II, DVT L leg, cellulitis L leg 2012, chronic low back pain, diabetic polyneuropathy, chronic kidney disease stage II, Last Myocardial Infarction Date:: 06/23/13 History of Any Multi-Drug Resistant Organisms: MRSA Date of last positivie culture/infection: 08/2014 MDRO Source:: abdomin around naval Past Surgical History: Back Surgery, Coronary Bypass/CABG, Heart Catheterization , Heart Catheterization With Stent, Hernia Repair Additional Past Surgical History / Comment(s): Cardiac caths, PCI with stents ( 3 total), 2006 CABG 6 vessels, spinal fusion L4-L5, fasciotomy left thigh, bilateral inguinal hernia repairs, I&D L forearm with dehisence then compartmental syndrome with fasciotomy Left forearm - June 2016 Past Anesthesia/Blood Transfusion Reactions: No Reported Reaction Date of Last Stent Placement:: 08/28/15 Smoking Status: Never smoker - Past Family History Brother(s) Additional Family Medical History / Comment(s): Patient has 1 brother and 1 sister with no major medical problems. Mother Family Medical History: Diabetes Mellitus Additional Family Medical History / Comment(s): Mother at the age of 84 from with history of chronic renal disease stage IV and congestive heart failure. Father Family Medical History: Coronary Artery Disease (CAD), Myocardial Infarction ([place] ) Additional Family Medical History / Comment(s): Father of a [place] at the age of 60 yrs with history of COPD. Medications and Allergies Home Medications Medication Instructions Recorded Confirmed Type Furosemide [Lasix] 20 mg PO DAILY PRN 06/23/13 12/03/16 History Losartan/Hydrochlorothiazide 1 tab PO DAILY 06/23/13 12/03/16 History [Losartan-Hctz 100-25 mg Tab] Metoprolol Tartrate [Lopressor] 100 mg PO BID 06/23/13 12/03/16 History cloNIDine HCL [Catapres] 0.1 mg PO BID 06/23/13 12/03/16 History Clopidogrel [Plavix] 75 mg PO DAILY #30 tab 06/25/13 12/03/16 Rx Atorvastatin [Lipitor] 80 mg PO HS 08/14/14 12/03/16 History Insulin Aspart [NovoLOG] 8 - 10 units SQ BID@0800,1200 08/14/14 12/03/16 History Insulin Glargine [Lantus] 27 unit SQ HS 08/14/14 12/03/16 History Insulin Aspart [NovoLOG] 15 units SQ AC-SUPPER 08/17/14 12/03/16 History Insulin Aspart [NovoLOG] See Protocol SQ AC-TID 08/17/14 12/03/16 History Nitroglycerin Sl Tabs [Nitrostat] 0.4 mg SUBLINGUAL Q5M PRN 09/07/14 12/03/16 History Aspirin 325 mg PO HS 07/02/16 12/03/16 History Ergocalciferol [Vitamin D2 50,000 unit PO Q14D 07/02/16 12/03/16 History (DRISDOL)] HYDROcodone/APAP 7.5-325MG [[place] 1 - 2 tab PO Q4-6H PRN #40 tab 07/07/16 Rx 7.5-325] hydrALAZINE HCL 75 mg PO BID 07/17/16 12/03/16 History metFORMIN HCL [Glucophage] 1,000 mg PO BID #0 10/14/16 12/03/16 Rx Allergies Allergy/AdvReac Type Severity Reaction Status Date / Time vancomycin Allergy Rash/Hives Verified 12/03/16 07:23 adhesive tape AdvReac Rash/Hives Verified 12/03/16 07:23 Physical Exam Vitals: Vital Signs Temp Pulse Pulse Resp BP BP Pulse Ox 12/03/16 09:14 98.2 F 90 18 169/84 97 12/03/16 08:40 98 18 180/81 94 L 12/03/16 07:30 88 16 189/88 97 12/03/16 06:20 97.7 F 89 18 191/93 98 Intake and Output 12/02/16 12/03/16 12/03/16 22:59 06:59 14:59 Other: Voiding Method Toilet Urinal Weight 83.915 kg - Constitutional General appearance: average body habitus, mild distress - EENT Eyes: anicteric sclerae, EOMI, PERRLA, no ptosis, no scleral icterus, normal appearance ENT: hearing grossly normal, NA/AT, normal oropharynx, no thrush, no tonsillar exudates, no tonsillar swelling Ears: bilateral: normal - Neck Neck: no lymphadenopathy, normal ROM, no rigidity, no stridor, no thyromegaly Carotids: bilateral: upstroke normal Thyroid: bilateral: normal size - Respiratory Respiratory: bilateral: diminished, negative: dullness, rales, rhonchi, wheezing , prolonged expiration, prolonged inspiration - Cardiovascular Rhythm: regular Heart sounds: normal: S1, S2 Abnormal Heart Sounds: systolic murmur, no S3 Gallop, no S4 Gallop, no click - Gastrointestinal General gastrointestinal: normal bowel sounds, soft, no splenomegaly, no tenderness, no umbilical hernia, no ventral hernia - Integumentary Integumentary: normal, normal turgor - Neurologic Neurologic: CNII-XII intact - Musculoskeletal Musculoskeletal: gait normal, generalized weakness - Psychiatric Psychiatric: A&O x's 3, appropriate affect, intact judgment & insight Results CBC & Chem 7: 12/03/16 06:50 12/03/16 06:50 Labs: Abnormal Lab Results - Last 24 Hours (Table) 12/03/16 12/03/16 12/03/16 Range/Units 06:28 06:50 06:50 WBC 14.7 H (3.8-10.6) k/uL Neutrophils # 12.0 H (1.3-7.7) k/uL Chloride (98-107) mmol/L BUN (9-20) mg/dL Glucose (74-99) mg/dL POC Glucose (mg/dL) 198 H (75-99) mg/dL Plasma Lactic Acid Oskar (0.7-2.0) mmol/L Total Creatine Kinase 233 H (55-170) U/L CK-MB (CK-2) 3.0 H* (0.0-2.4) ng/mL 12/03/16 12/03/16 Range/Units 06:50 06:50 WBC (3.8-10.6) k/uL Neutrophils # (1.3-7.7) k/uL Chloride 96 L (98-107) mmol/L BUN 23 H (9-20) mg/dL Glucose 233 H (74-99) mg/dL POC Glucose (mg/dL) (75-99) mg/dL Plasma Lactic Acid Oskar 2.4 H* (0.7-2.0) mmol/L Total Creatine Kinase (55-170) U/L CK-MB (CK-2) (0.0-2.4) ng/mL Thrombosis Risk Factor Assmnt - DVT/VTE Prophylaxis DVT/VTE Prophylaxis: Pharmacologic Prophylaxis ordered, Mechanical Prophylaxis ordered - Choose All That Apply Any of the Below Risk Factors Present?: Yes Each Factor Represents 1 point: Age 41-60 years Other Risk Factors: Yes Each Risk Factor Represents 3 Points: History of DVT/PE Other congenital or acquired thrombophilia - If yes, enter type in comment: No Thrombosis Risk Factor Assessment Total Risk Factor Score: 4 Thrombosis Risk Factor Assessment Level: Moderate Risk Assessment and Plan Plan: Assessment and plan: 1. Left lower extremity cellulitis involving the leg and part of the foot. Blood cultures 2 every 15 minutes, continue Ancef 2 g IV piggyback every 8 hours, continue Silvadene cream 1% apply twice every day cover with Kerlix and Del wrap, leg elevation, venous Doppler of the left lower extremity, patient does appear to have a decrease in his dorsalis pedis as opposed to the right lower extremity, we will monitor the patient really closely. No evidence of any neurovascular bundle compromise, ID consultation Dr. Jeffrey. 2. History of coronary artery disease status post coronary artery bypass graft for 6 vessel disease with chronically occluded saphenous venous graft to the obtuse marginal branch and status post PCI of the saphenous graft to the RCA. Continue Plavix 75 mg daily, aspirin 81mg daily, Lipitor, Lopressor 100 mg twice daily, nitroglycerin as needed. 3. Diabetes mellitus type 2 and diabetic polyneuropathy. Continue Lantus 27 units at bedtime, Humalog as directed along with metformin 1000 mg orally twice every day continue consistent carb diet 1800, BGM before each meal and at bedtime. 4. Hypertension, hypertensive cardiovascular disease. Continue Catapres 0.1 mg twice daily, Lopressor 100 mg twice daily, losartan/hydrochlorothiazide 50/ 12.5 mg orally once daily along with hydralazine 75 mg orally twice every day. 5. Hyperlipidemia. We will continue Lipitor 40 mg orally once every day. 6. Obstructive sleep apnea. Continue CPAP as per home settings. 7. Leukocytosis due to cellulitis. will continue with same treatment and will repeat cbc in AM 8. Chronic wound to the left forearm with recent partial wound dehiscence. Due to compartment syndrome has resolved. 9. DVT prophylaxis. Continue patient on heparin 5000 units subcutaneously every 8 hours. 10. Prophylaxis. Continue with current PPI. 11. Admitted to inpatient . Estimated length of stay 2 midnights. 12. Full code.
--- NOTE | 2016-12-03 12:06 | P.CONS ---
History of Present Illness - Reason for Consult Consult date: 12/03/16 Left leg cellulitis - History of Present Illness This is a 51-year-old male patient known to ID service as he was seen for previous left forearm wound underwent I&D in the emergency center and was then sent to Dr. Maksim Contreras. He underwent a repeat incision and drainage of the left volar forearm abscess. He developed significant bleeding and came to [facility] emergency center for evaluation. The emergency department did local wound care and put several stitches in the forearm but the patient went home and developed increasing pain swelling and could not move his fingers and came back to the emergency center in the morning. He was diagnosed with post compartment syndrome and was taken to the OR by Dr. Shaver for a left volar forearm compartment fasciotomy. He was then treated in the wound center and discharged from there on September 22 as the wound had completely healed. He gives history that he was at his [place] in [place] on [place] was chopping wood and dropped a piece of wood onto his left foot/ankle area. He states the pain has gradually worsened. He came home around midnight last evening and tried to sleep in a recliner chair but pain continued to worsen and he came into [facility] emergency center for evaluation. He denies having any fever or chills. No nausea vomiting or diarrhea. No change in appetite. He has not been treated with antibiotics prior to this admission. [facility] and started on Kefzol. Wound culture of the left forearm from [facility] was positive for MSSA. 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 She is known to have significant coronary artery disease status post 6 vessel CABG in 2006 along with PCI and stent to the saphenous vein graft to the RCA in 2015 and at that time had a non-ST elevated myocardial infarction. He also states that he was recently cathed in September but did not have any new blockages. He is known to have a DVT in the past. Review of Systems All systems: negative Constitutional: Denies anorexia, Denies chills, Denies fatigue, Denies fever, Denies poor appetite, Denies weakness Eyes: denies blurred vision, denies pain Ears, nose, mouth and throat: Denies dental pain, Denies dysphagia, Denies headache, Denies mouth pain, Denies sore throat Cardiovascular: Reports leg edema, Denies chest pain, Denies decreased exercise tolerance, Denies dyspnea on exertion, Denies edema, Denies lightheadedness, Denies shortness of breath, Denies syncope Respiratory: Denies cough, Denies cough with sputum, Denies dyspnea, Denies excessive sputum, Denies hemoptysis, Denies home oxygen Gastrointestinal: Denies abdominal pain, Denies diarrhea, Denies nausea, Denies vomiting Musculoskeletal: Denies myalgias Integumentary: Reports darkening of skin, Reports wounds, Denies pruritus, Denies rash Neurological: Denies numbness, Denies weakness Psychiatric: Denies anxiety, Denies depression Endocrine: Denies fatigue, Denies weight change Past Medical History Past Medical History: Asthma, Coronary Artery Disease (CAD), Chest Pain / Angina , Diabetes Mellitus, Deep Vein Thrombosis (DVT), Hyperlipidemia, Hypertension, Myocardial Infarction ([place]), Sleep Apnea/CPAP/BIPAP Additional Past Medical History / Comment(s): Obstructive sleep apnea CPAP, bronchitis, IDDM type II, DVT L leg, cellulitis L leg 2012, chronic low back pain, diabetic polyneuropathy, chronic kidney disease stage II, Last Myocardial Infarction Date:: 06/23/13 History of Any Multi-Drug Resistant Organisms: MRSA Year Discovered:: 08/2014 MDRO Source:: abdomin around naval Past Surgical History: Back Surgery, Coronary Bypass/CABG, Heart Catheterization , Heart Catheterization With Stent, Hernia Repair Additional Past Surgical History / Comment(s): Cardiac caths, PCI with stents ( 3 total), 2006 CABG 6 vessels, spinal fusion L4-L5, fasciotomy left thigh, bilateral inguinal hernia repairs, I&D L forearm with dehisence then compartmental syndrome with fasciotomy Left forearm - June 2016 Past Anesthesia/Blood Transfusion Reactions: No Reported Reaction Date of Last Stent Placement:: 08/28/15 Smoking Status: Never smoker - Past Family History Brother(s) Additional Family Medical History / Comment(s): Patient has 1 brother and 1 sister with no major medical problems. Mother Family Medical History: Diabetes Mellitus Additional Family Medical History / Comment(s): Mother at the age of 84 from with history of chronic renal disease stage IV and congestive heart failure. Father Family Medical History: Coronary Artery Disease (CAD), Myocardial Infarction ([place] ) Additional Family Medical History / Comment(s): Father of a [place] at the age of 60 yrs with history of COPD. Medications and Allergies Home Medications Medication Instructions Recorded Confirmed Type Furosemide [Lasix] 20 mg PO DAILY PRN 06/23/13 12/03/16 History Losartan/Hydrochlorothiazide 1 tab PO DAILY 06/23/13 12/03/16 History [Losartan-Hctz 100-25 mg Tab] Metoprolol Tartrate [Lopressor] 100 mg PO BID 06/23/13 12/03/16 History cloNIDine HCL [Catapres] 0.1 mg PO BID 06/23/13 12/03/16 History Clopidogrel [Plavix] 75 mg PO DAILY #30 tab 06/25/13 12/03/16 Rx Atorvastatin [Lipitor] 80 mg PO HS 08/14/14 12/03/16 History Insulin Aspart [NovoLOG] 8 - 10 units SQ BID@0800,1200 08/14/14 12/03/16 History Insulin Glargine [Lantus] 27 unit SQ HS 08/14/14 12/03/16 History Insulin Aspart [NovoLOG] 15 units SQ AC-SUPPER 08/17/14 12/03/16 History Insulin Aspart [NovoLOG] See Protocol SQ AC-TID 08/17/14 12/03/16 History Nitroglycerin Sl Tabs [Nitrostat] 0.4 mg SUBLINGUAL Q5M PRN 09/07/14 12/03/16 History Aspirin 325 mg PO HS 07/02/16 12/03/16 History Ergocalciferol [Vitamin D2 50,000 unit PO Q14D 07/02/16 12/03/16 History (DRISDOL)] HYDROcodone/APAP 7.5-325MG [[place] 1 - 2 tab PO Q4-6H PRN #40 tab 07/07/16 Rx 7.5-325] hydrALAZINE HCL 75 mg PO BID 07/17/16 12/03/16 History metFORMIN HCL [Glucophage] 1,000 mg PO BID #0 10/14/16 12/03/16 Rx Allergies Allergy/AdvReac Type Severity Reaction Status Date / Time vancomycin Allergy Rash/Hives Verified 12/03/16 07:23 adhesive tape AdvReac Rash/Hives Verified 12/03/16 07:23 Physical Exam Vitals: Vital Signs Temp Pulse Pulse Resp BP BP Pulse Ox 12/03/16 09:14 98.2 F 90 18 169/84 97 12/03/16 08:40 98 18 180/81 94 L 12/03/16 07:30 88 16 189/88 97 12/03/16 06:20 97.7 F 89 18 191/93 98 Intake and Output 12/02/16 12/03/16 12/03/16 22:59 06:59 14:59 Other: Voiding Method Toilet Urinal Weight 83.915 kg Gen: This is a 51-year-old male. He is seen on the [facility] floor and appears to be comfortable. HEENT: Head is atraumatic, normocephalic. Pupils equal, round. Sclerae is anicteric. NECK: Supple. No JVD. No lymphadenopathy. No thyromegaly. LUNGS: Diminished but otherwise clear to auscultation. No wheezes or rhonchi. No intercostal retractions. HEART: Regular rate and rhythm. Systolic murmur. ABDOMEN: Soft. Bowel sounds are present. No masses. No tenderness. EXTREMITIES: There is 1+ pedal edema to the left foot and ankle area with erythema from the mid dorsum of the foot to the distal tib-fib area. Area is very tender to touch. No drainage noted. Dorsalis pedis is +1. Dorsalis pedis on the right foot is very strong. NEUROLOGICAL: Patient is awake, alert and oriented x3. Cranial nerves 2 through 12 are grossly intact. Results Results: Laboratory Results WBC 14.7 k/uL (3.8-10.6) H 12/03/16 06:50 RBC 5.48 m/uL (4.30-5.90) 12/03/16 06:50 Hgb 15.0 gm/dL (13.0-17.5) 12/03/16 06:50 Hct 45.4 % (39.0-53.0) 12/03/16 06:50 MCV 82.8 fL (80.0-100.0) 12/03/16 06:50 MCH 27.4 pg (25.0-35.0) 12/03/16 06:50 MCHC 33.1 g/dL (31.0-37.0) 12/03/16 06:50 RDW 14.1 % (11.5-15.5) 12/03/16 06:50 Plt Count 200 k/uL (150-450) 12/03/16 06:50 Neutrophils % 81 % 12/03/16 06:50 Lymphocytes % 8 % 12/03/16 06:50 Monocytes % 7 % 12/03/16 06:50 Eosinophils % 2 % 12/03/16 06:50 Basophils % 0 % 12/03/16 06:50 Neutrophils # 12.0 k/uL (1.3-7.7) H 12/03/16 06:50 Lymphocytes # 1.1 k/uL (1.0-4.8) 12/03/16 06:50 Monocytes # 1.0 k/uL (0-1.0) 12/03/16 06:50 Eosinophils # 0.3 k/uL (0-0.7) 12/03/16 06:50 Basophils # 0.1 k/uL (0-0.2) 12/03/16 06:50 PT 10.7 sec (9.0-12.0) 12/03/16 06:50 INR 1.1 (<1.2) 12/03/16 06:50 APTT 25.1 sec (22.0-30.0) 12/03/16 06:50 D-Dimer 0.54 mg/L FEU (<0.60) 12/03/16 06:50 Sodium 137 mmol/L (137-145) 12/03/16 06:50 Potassium 3.8 mmol/L (3.5-5.1) 12/03/16 06:50 Chloride 96 mmol/L (98-107) L 12/03/16 06:50 Carbon Dioxide 25 mmol/L (22-30) 12/03/16 06:50 Anion Gap 16 mmol/L 12/03/16 06:50 BUN 23 mg/dL (9-20) H 12/03/16 06:50 Creatinine 0.84 mg/dL (0.66-1.25) 12/03/16 06:50 Est GFR (MDRD) Af Amer >60 (>60 ml/min/1.73 sqM) 12/03/16 06:50 Est GFR (MDRD) Non-Af >60 (>60 ml/min/1.73 sqM) 12/03/16 06:50 Glucose 233 mg/dL (74-99) H 12/03/16 06:50 POC Glucose (mg/dL) 259 mg/dL (75-99) H 12/03/16 11:11 POC Glu Cartridge Assembler ID Rhoda Painter 12/03/16 11:11 Lactic Ac Sepsis Rflx Y 12/03/16 07:25 Plasma Lactic Acid Oskar 0.7 mmol/L (0.7-2.0) 12/03/16 11:13 Calcium 9.2 mg/dL (8.4-10.2) 12/03/16 06:50 Phosphorus 2.9 mg/dL (2.5-4.5) 12/03/16 06:50 Magnesium 1.7 mg/dL (1.6-2.3) 12/03/16 06:50 Total Bilirubin 1.2 mg/dL (0.2-1.3) 12/03/16 06:50 AST 32 U/L (17-59) 12/03/16 06:50 ALT 50 U/L (21-72) 12/03/16 06:50 Alkaline Phosphatase 109 U/L (38-126) 12/03/16 06:50 Total Creatine Kinase 233 U/L (55-170) H 12/03/16 06:50 CK-MB (CK-2) 3.0 ng/mL (0.0-2.4) H* 12/03/16 06:50 CK-MB (CK-2) Rel Index 1.3 12/03/16 06:50 Troponin I 0.018 ng/mL (0.000-0.034) 12/03/16 06:50 Total Protein 7.3 g/dL (6.3-8.2) 12/03/16 06:50 Albumin 4.3 g/dL (3.5-5.0) 12/03/16 06:50 CBC & Chem 7: 12/03/16 06:50 12/03/16 06:50 Labs: Abnormal Lab Results - Last 24 Hours (Table) 12/03/16 12/03/16 12/03/16 Range/Units 06:28 06:50 06:50 WBC 14.7 H (3.8-10.6) k/uL Neutrophils # 12.0 H (1.3-7.7) k/uL Chloride (98-107) mmol/L BUN (9-20) mg/dL Glucose (74-99) mg/dL POC Glucose (mg/dL) 198 H (75-99) mg/dL Plasma Lactic Acid Oskar (0.7-2.0) mmol/L Total Creatine Kinase 233 H (55-170) U/L CK-MB (CK-2) 3.0 H* (0.0-2.4) ng/mL 12/03/16 12/03/16 12/03/16 Range/Units 06:50 06:50 11:11 WBC (3.8-10.6) k/uL Neutrophils # (1.3-7.7) k/uL Chloride 96 L (98-107) mmol/L BUN 23 H (9-20) mg/dL Glucose 233 H (74-99) mg/dL POC Glucose (mg/dL) 259 H (75-99) mg/dL Plasma Lactic Acid Oskar 2.4 H* (0.7-2.0) mmol/L Total Creatine Kinase (55-170) U/L CK-MB (CK-2) (0.0-2.4) ng/mL Assessment and Plan Plan: This is a 51-year-old male who presented to the hospital with left ankle cellulitis. He has been started on Ancef and vancomycin will be added. He did receive 1 dose of ceftriaxone in the emergency center. Local wound care will be addressed. Tetanus status will be questioned. Continue supportive care. Further recommendations as patient progresses. The above dictated assessment and findings were discussed with Dr. Jeffrey. The impression and plan of care have been directed as dictated. Dipika Mendez nurse practitioner acting as scribe for Dr. Jeffrey.
[2016-12-03] MEDS ORDERED: VANCOMYCIN IV PER PHARMACY 1 EACH MISC MISCELLANE PRN (12:07)
[2016-12-03] MEDS: DAPTOmycin 500 MG in SODIUM CHLORIDE 0.9% 50 ML IV SCH (12:36)
[2016-12-03] MEDS: INSULIN LISPRO (humaLOG) 300 UNIT/3 ML VIAL SQ SCH ×2 (12:36→17:28)
--- NOTE | 2016-12-03 13:03 | US ---
EXAMINATION TYPE: US venous doppler duplex LE LT DATE OF EXAM: 12/03/2016 12:43 PM COMPARISON: NONE CLINICAL HISTORY: Pain. Swelling and history of venous thrombosis SIDE PERFORMED: Left TECHNIQUE: The lower extremity deep venous system is examined utilizing real time linear array sonog nancy with graded compression, doppler sonography and color-flow sonography. VESSELS IMAGED: External Iliac Vein (EIV) Common Femoral Vein Deep Femoral Vein Femoral Vein Popliteal Vein Left Leg: Negative for DVT IMPRESSION: Grayscale, color doppler, spectral doppler imaging performed of the deep veins of the lo wer extremities. There is normal flow, compressibility, vascular waveforms. No evident deep venous thrombosis at or above the left knee
--- NOTE | 2016-12-03 14:51 | P.CNOR ---
History of Present Illness - HPI Consult date: 12/03/16 Consult reason: other (Left lower leg cellulitis) History of present illness: The patient is a 51-year-old male who is known to our office. He states that he presented to the emergency department early this morning with left leg swelling, redness, and pain. He states that he was chopping wood at his cabin on Wednesday and dropped a piece of wood onto his left lower leg/ankle area. The patient says that the redness and swelling started on Wednesday and continued to worsen. He is unable to fully bear weight onto his left leg due to the pain. He denies fever, chills, rigors, nausea, vomiting, abdominal pain, shortness breath, and chest pain at this time. The pain medication is helping his pain. Orthopedics was consulted for further evaluation of left lower leg cellulitis. He has been seen and evaluated by infectious disease. The patient does have a history of MRSA. Venous doppler of the left leg was negative for DVT. The patient does have a history of a mass excision with partial wound closure to his left forearm by Dr. Yobani Contreras in June 2016. The patient was seen in in the ER for wound drainage postoperatively and the incision was closed by the ER physician. The patient returned a few hours later for significant pain and inability to move his fingers. He is found to have compartment syndrome and a fasciotomy was completed by Dr. Shaver. The patient was seen in the wound care center and a wound VAC was applied. The patient states that the wound finally closed in late July early August. He states no issues with the forearm at this time. Review of Systems Constitutional: Reports as per HPI, Denies chills, Denies fever Cardiovascular: Reports as per HPI, Denies chest pain, Denies shortness of breath Gastrointestinal: Reports as per HPI, Denies nausea, Denies vomiting Musculoskeletal: left: ankle pain, ankle swelling, as per HPI Past Medical History Past Medical History: Asthma, Coronary Artery Disease (CAD), Chest Pain / Angina , Diabetes Mellitus, Deep Vein Thrombosis (DVT), Hyperlipidemia, Hypertension, Myocardial Infarction (NM), Sleep Apnea/CPAP/BIPAP Additional Past Medical History / Comment(s): Obstructive sleep apnea CPAP, bronchitis, IDDM type II, DVT L leg, cellulitis L leg 2012, chronic low back pain, diabetic polyneuropathy, chronic kidney disease stage II, Last Myocardial Infarction Date:: 06/23/13 History of Any Multi-Drug Resistant Organisms: MRSA Year Discovered:: 08/2014 MDRO Source:: abdomin around naval Past Surgical History: Back Surgery, Coronary Bypass/CABG, Heart Catheterization , Heart Catheterization With Stent, Hernia Repair Additional Past Surgical History / Comment(s): Cardiac caths, PCI with stents ( 3 total), 2006 CABG 6 vessels, spinal fusion L4-L5, fasciotomy left thigh, bilateral inguinal hernia repairs, I&D L forearm with dehisence then compartmental syndrome with fasciotomy Left forearm - June 2016 Past Anesthesia/Blood Transfusion Reactions: No Reported Reaction Date of Last Stent Placement:: 08/28/15 Smoking Status: Never smoker - Past Family History Brother(s) Additional Family Medical History / Comment(s): Patient has 1 brother and 1 sister with no major medical problems. Mother Family Medical History: Diabetes Mellitus Additional Family Medical History / Comment(s): Mother at the age of 84 from with history of chronic renal disease stage IV and congestive heart failure. Father Family Medical History: Coronary Artery Disease (CAD), Myocardial Infarction (NM ) Additional Family Medical History / Comment(s): Father of a NM at the age of 60 yrs with history of COPD. Medications and Allergies Home Medications Medication Instructions Recorded Confirmed Type Furosemide [Lasix] 20 mg PO DAILY PRN 06/23/13 12/03/16 History Losartan/Hydrochlorothiazide 1 tab PO DAILY 06/23/13 12/03/16 History [Losartan-Hctz 100-25 mg Tab] Metoprolol Tartrate [Lopressor] 100 mg PO BID 06/23/13 12/03/16 History cloNIDine HCL [Catapres] 0.1 mg PO BID 06/23/13 12/03/16 History Clopidogrel [Plavix] 75 mg PO DAILY #30 tab 06/25/13 12/03/16 Rx Atorvastatin [Lipitor] 80 mg PO HS 08/14/14 12/03/16 History Insulin Aspart [NovoLOG] 8 - 10 units SQ BID@0800,1200 08/14/14 12/03/16 History Insulin Glargine [Lantus] 27 unit SQ HS 08/14/14 12/03/16 History Insulin Aspart [NovoLOG] 15 units SQ AC-SUPPER 08/17/14 12/03/16 History Insulin Aspart [NovoLOG] See Protocol SQ AC-TID 08/17/14 12/03/16 History Nitroglycerin Sl Tabs [Nitrostat] 0.4 mg SUBLINGUAL Q5M PRN 09/07/14 12/03/16 History Aspirin 325 mg PO HS 07/02/16 12/03/16 History Ergocalciferol [Vitamin D2 50,000 unit PO Q14D 07/02/16 12/03/16 History (DRISDOL)] HYDROcodone/APAP 7.5-325MG [[place] 1 - 2 tab PO Q4-6H PRN #40 tab 07/07/16 Rx 7.5-325] hydrALAZINE HCL 75 mg PO BID 07/17/16 12/03/16 History metFORMIN HCL [Glucophage] 1,000 mg PO BID #0 10/14/16 12/03/16 Rx Allergies Allergy/AdvReac Type Severity Reaction Status Date / Time vancomycin Allergy Rash/Hives Verified 12/03/16 07:23 adhesive tape AdvReac Rash/Hives Verified 12/03/16 07:23 Physical Examination The patient is a 51-year-old male who is alert and oriented 3. He is in no acute distress. Exam of the bilateral upper extremities reveal no obvious deformity or pain upon range of motion. No open wounds are present. There is a healed incision to the volar left forearm. No signs or symptoms of infection. Exam of the right lower extremity reveals no obvious deformity or pain upon range of motion. Exam of the left lower extremity reveals redness and swelling to the anterior and lateral lower leg. The area of redness was marked in the ER this morning. Redness has seemed to improve in relation to the marked area. No open wounds or abscess was are present. There is good foot and ankle motion. 1+ pitting edema is present. Dorsalis pedis pulse is diminished on the left when compared to the right. Bilateral calves are soft and nontender. Circulatory and neurological status is intact. Results - Labs Labs: Abnormal Lab Results - Last 24 Hours (Table) 12/03/16 12/03/16 12/03/16 Range/Units 06:28 06:50 06:50 WBC 14.7 H (3.8-10.6) k/uL Neutrophils # 12.0 H (1.3-7.7) k/uL Chloride (98-107) mmol/L BUN (9-20) mg/dL Glucose (74-99) mg/dL POC Glucose (mg/dL) 198 H (75-99) mg/dL Plasma Lactic Acid Oskar (0.7-2.0) mmol/L Total Creatine Kinase 233 H (55-170) U/L CK-MB (CK-2) 3.0 H* (0.0-2.4) ng/mL 12/03/16 12/03/16 12/03/16 Range/Units 06:50 06:50 11:11 WBC (3.8-10.6) k/uL Neutrophils # (1.3-7.7) k/uL Chloride 96 L (98-107) mmol/L BUN 23 H (9-20) mg/dL Glucose 233 H (74-99) mg/dL POC Glucose (mg/dL) 259 H (75-99) mg/dL Plasma Lactic Acid Oskar 2.4 H* (0.7-2.0) mmol/L Total Creatine Kinase (55-170) U/L CK-MB (CK-2) (0.0-2.4) ng/mL H & H 12/03/16 Range/Units 06:50 Hgb 15.0 (13.0-17.5) gm/dL Hct 45.4 (39.0-53.0) % Coagulation 12/03/16 Range/Units 06:50 INR 1.1 (<1.2) Result Diagrams: 12/03/16 06:50 12/03/16 06:50 - Diagnostic results Ankle/Foot x-ray: image reviewed (No fracture or dislocations noted.) Assessment and Plan (1) Cellulitis Status: Acute (2) Ankle pain, left Status: Acute Plan: The clinical and x-ray findings were discussed with the patient. The case was discussed with Dr. Shaver. No surgical intervention is needed at this time. The patient appears to be improving on IV antibiotics in the form of Kefzol and daptomycin. He may weight-bear as tolerated on the left leg. We will continue to follow with infectious disease and medical management.
[2016-12-03] MEDS: HEPARIN SODIUM,PORCINE 5,000 UNIT/ML 1 ML VIAL SQ SCH ×2 (15:29→23:12)
[2016-12-03 17:16] LABS: Glucose,Whole Blood 324 mg/dL (75-99)
[2016-12-03] MEDS: HYDROcodone/APAP 7.5-325MG 1 EACH TAB PO PRN (20:21)
[2016-12-03] MEDS: ASPIRIN 325 MG TAB PO SCH (20:22)
--- NOTE | 2016-12-03 20:59 | P.CON ---
Consult Note - . Consult date: 12/03/16 Assessment/Plan:: This is a 51-year-old male patient known to ID service as he was seen for previous left forearm wound underwent I&D in the emergency center and was then sent to Dr. Maksim Contreras. He underwent a repeat incision and drainage of the left volar forearm abscess. He developed significant bleeding and came to [facility] emergency center for evaluation. The emergency department did local wound care and put several stitches in the forearm but the patient went home and developed increasing pain swelling and could not move his fingers and came back to the emergency center in the morning. He was diagnosed with post compartment syndrome and was taken to the OR by Dr. Shaver for a left volar forearm compartment fasciotomy. He was then treated in the wound center and discharged from there on September 22 as the wound had completely healed. He gives history that he was at his [place] in [place] on Wednesday was chopping wood and dropped a piece of wood onto his left foot/ankle area. He states the pain has gradually worsened. He came home around midnight last evening and tried to sleep in a recliner chair but pain continued to worsen and he came into [facility] emergency center for evaluation. He denies having any fever or chills. No nausea vomiting or diarrhea. No change in appetite. He has not been treated with antibiotics prior to this admission. [facility] and started on Kefzol. Wound culture of the left forearm from [facility] was positive for MSSA. 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 She is known to have significant coronary artery disease status post 6 vessel CABG in 2006 along with PCI and stent to the saphenous vein graft to the RCA in 2016 and at that time had a non-ST elevated myocardial infarction. He also states that he was recently cathed in September but did not have any new blockages. He is known to have a DVT in the past. Please see the consult note is dictated by nurse practitioner Mrs. Dipika Mendez. Because of the patient has no trauma to the left lower extremity. This developed a significant increase amount of swelling with cellulitis. Antimicrobial therapy daptomycin will be utilized or the extensive cellulitis. We'll need further imaging studies and orthopedic evaluation because of the trauma that is involved. Elevate at rest. Silvadene dressing is added. He is up-to-date with his tetanus. We'll ensure adequate protein supplementation. Multivitamin has been ordered. The leukocytosis appears to be directly related to the significant infection to the left lower extremity. I agree with evaluation, assessment and plan as dictated by nurse practitioner Mrs. Dipika Mendez.
[2016-12-03] MEDS ORDERED: ATORVASTATIN 80 MG TAB PO SCH (21:00)
[2016-12-03 21:12] LABS: Glucose,Whole Blood 132 mg/dL (75-99)
[2016-12-03] MEDS: INSULIN GLARGINE 100 UNIT/ML 10 ML VIAL SQ SCH (21:30)
[2016-12-04 07:14] LABS: Glucose,Whole Blood 136 mg/dL (75-99)
[2016-12-04] MEDS: HYDROmorphone 1 MG/ML 1 ML SYRINGE IVP PRN ×4 (07:20→21:33)
[2016-12-04] MEDS: metFORMIN 500 MG TAB PO SCH ×2 (07:51→18:04)
[2016-12-04] MEDS: HEPARIN SODIUM,PORCINE 5,000 UNIT/ML 1 ML VIAL SQ SCH ×3 (07:51→23:02)
[2016-12-04] MEDS: CLOPIDOGREL 75 MG TAB PO SCH (07:52)
[2016-12-04] MEDS: cloNIDine HCL 0.1 MG TAB PO SCH ×2 (07:52→21:36)
[2016-12-04] MEDS: INSULIN LISPRO (humaLOG) 300 UNIT/3 ML VIAL SQ SCH ×3 (07:52→18:03)
[2016-12-04] MEDS: ceFAZolin 2 GM in SODIUM CHLORIDE 0.9% 100 ML IVPB SCH ×2 (07:58→15:39)
[2016-12-04] MEDS: SODIUM CHLORIDE 0.9% 1,000 ML IV SCH ×2 (07:59→18:03)
[2016-12-04] MEDS: METOPROLOL TARTRATE 50 MG TAB PO SCH ×2 (08:02→21:37)
[2016-12-04] MEDS: LOSARTAN-HCTZ 50-12.5 MG 1 EACH TAB PO SCH (08:02)
[2016-12-04] MEDS: hydrALAZINE HCL 25 MG TAB PO SCH ×2 (08:03→21:37)
[2016-12-04 09:51] LABS: Basophils % (A) 0 %; CH 28.7; CHCM 34.3; Eosinophils # (A) 0.5 k/uL (0-0.7); Eosinophils % (A) 6 %; HCT 39.3 % (39.0-53.0); HGB 12.9 gm/dL (13.0-17.5); Luc # (Auto) 0.18; Luc % (Auto) 2; Lymphocytes # (A) 0.8 k/uL (1.0-4.8); Lymphocytes % (A) 9 %; MCH 27.6 pg (25.0-35.0); MCHC 32.8 g/dL (31.0-37.0); MCV 84.1 fL (80.0-100.0); Mean Platelet Volume 7.9; Monocytes # (A) 0.8 k/uL (0-1.0); Monocytes % (A) 8 %; Neutrophils # (A) 6.8 k/uL (1.3-7.7); Neutrophils % (A) 75 %; RBC 4.67 m/uL (4.30-5.90); RDW 15.1 % (11.5-15.5); WBC 9.2 k/uL (3.8-10.6); WBC (Perox) 8.99
[2016-12-04 10:08] LABS: Glucose,Whole Blood 182 mg/dL (75-99)
--- NOTE | 2016-12-04 10:13 | P.PN ---
Subjective Progress Note Date: 12/04/16 Principal diagnosis: Left leg cellulitis The patient is a 51-year-old male seen at bedside this am. Orthopedics was consulted for further evaluation of left lower leg cellulitis. He has been seen and evaluated by infectious disease. The patient does have a history of MRSA. Venous doppler of the left leg was negative for DVT. He has no new complaints today. He denies numbness, tingling, calf pain, fever, chills, chest pain or SOB. Objective - Vital Signs Vital signs: Vital Signs Temp 98.4 F 12/04/16 07:00 Pulse 76 12/04/16 07:00 Resp 20 12/04/16 07:00 BP 151/83 12/04/16 07:00 Pulse Ox 97 12/04/16 07:00 Intake & Output 12/03/16 12/04/16 12/04/16 18:59 06:59 18:59 Intake Total 500 Balance 500 Weight 83.915 kg Intake: Oral 500 Other: Voiding Method Toilet Toilet Urinal Urinal # Voids 1 2 1 - Exam Inspection reveals what appears to be an improving area of cellulitis/erythema at the distal anterior lower leg. There are no open wounds or bleeding. No fluctuance. The erythema has receded from the boundary marked yesterday. NVI. adequate perfusion distally. Painless ROM of ankle, foot and knee. - Constitutional General appearance: Present: no acute distress - Psychiatric Psychiatric: Present: A&O x's 3, appropriate affect, intact judgment & insight - Labs CBC & Chem 7: 12/04/16 08:14 12/03/16 06:50 Labs: Abnormal Lab Results - Last 24 Hours (Table) 12/03/16 12/03/16 12/03/16 Range/Units 11:11 17:12 21:09 Hgb (13.0-17.5) gm/dL Lymphocytes # (1.0-4.8) k/uL POC Glucose (mg/dL) 259 H 324 H 132 H (75-99) mg/dL 12/04/16 12/04/16 Range/Units 07:11 08:14 Hgb 12.9 L (13.0-17.5) gm/dL Lymphocytes # 0.8 L (1.0-4.8) k/uL POC Glucose (mg/dL) 136 H (75-99) mg/dL Microbiology - Last 24 Hours (Table) 12/03/16 06:50 Blood Culture - Preliminary Blood No Growth after 24 hours Assessment and Plan (1) Cellulitis Narrative/Plan: Continue to monitor progress while on IV antibiotics at ID recommmendations. Elevate, pain control and DVT prophylaxis. Medical management. Status: Acute Time with Patient: Less than 30
[2016-12-04] MEDS: HYDROcodone/APAP 7.5-325MG 1 EACH TAB PO PRN (11:27)
[2016-12-04] MEDS: DAPTOmycin 500 MG in SODIUM CHLORIDE 0.9% 50 ML IV SCH (11:28)
[2016-12-04 12:23] LABS: Glucose,Whole Blood 154 mg/dL (75-99)
--- NOTE | 2016-12-04 13:09 | P.PN ---
Subjective Progress Note Date: 12/04/16 This is a 51-year-old patient of Dr. Montesinos with past medical history for coronary artery disease status post 6 vessel CABG in 2006 with MAE to LAD, saphenous venous graft to the PDA, saphenous venous graft to the obtuse marginal one, radial artery to the obtuse marginal branch 2 and saphenous venous graft to the obtuse marginal 3 followed by heart catheterization with PCI and stent of the saphenous venous graft to the RCA in 2015 at which time he presented with non-ST elevated myocardial infarction. History of diabetes mellitus2 with diabetic polyneuropathy, hyperlipidemia, hypertension, hypertensive cardiovascular disease with left ventricular hypertrophy, asthma, sleep apnea on CPAP, chronic low back pain, chronic kidney disease, DVT in the past. Patient presented to [facility] emergency center with complaints of increased pain and swelling of the left lower extremity after he dropped a log of wood on his leg and foot on the [place], he got back to [place] at around midnight went to the recliner slept all night long woke up in the morning with significant erythema and swelling of the left foot on the left leg with lymphangitic streaks orally up to the leg patient ended up coming to the ER for eval you she was found to have a elevated white count 15,000 with elevated lactic acid, patient was started on IV antibiotic in the form of Ancef 2 g IV piggyback every 8 hours, he was admitted to the hospital Silvadene cream will be applied to the left lower extremity and wrapped with a Kerlix and Del wrap. Venous Doppler of the left lower extremity will be obtained. 12/04: Patient has been seen by Dr. Jeffrey with recommendations to add in daptomycin for MRSA coverage. Multivitamin added. Local wound care is in the form of Silvadene dressing. Orthopedics is following up with no surgical intervention at this time. Patient states that he continues to have severe pain in a #10 but he is feeling better and he can move his toes a little bit. Left lower extremity ultrasound was negative for DVT. Blood cultures showing no growth at 24 hours. Objective - Vital Signs Vital signs: Vital Signs Temp 98.4 F 12/04/16 07:00 Pulse 76 12/04/16 07:00 Resp 20 12/04/16 07:00 BP 151/83 12/04/16 07:00 Pulse Ox 97 12/04/16 07:00 Intake & Output 12/03/16 12/04/16 12/04/16 18:59 06:59 18:59 Intake Total 500 Balance 500 Weight 83.915 kg Intake: Oral 500 Other: Voiding Method Toilet Toilet Urinal Urinal # Voids 1 2 1 - Exam General appearance: average body habitus, mild distress - EENT Eyes: anicteric sclerae, EOMI, PERRLA, no ptosis, no scleral icterus, normal appearance ENT: hearing grossly normal, NA/AT, normal oropharynx, no thrush, no tonsillar exudates, no tonsillar swelling Ears: bilateral: normal - Neck Neck: no lymphadenopathy, normal ROM, no rigidity, no stridor, no thyromegaly Carotids: bilateral: upstroke normal Thyroid: bilateral: normal size - Respiratory Respiratory: bilateral: diminished, negative: dullness, rales, rhonchi, wheezing , prolonged expiration, prolonged inspiration - Cardiovascular Rhythm: regular Heart sounds: normal: S1, S2 Abnormal Heart Sounds: systolic murmur, no S3 Gallop, no S4 Gallop, no click - Gastrointestinal General gastrointestinal: normal bowel sounds, soft, no splenomegaly, no tenderness, no umbilical hernia, no ventral hernia - Integumentary Integumentary: normal, normal turgor - Neurologic Neurologic: CNII-XII intact - Musculoskeletal Musculoskeletal: gait normal, generalized weakness - Psychiatric Psychiatric: A&O x's 3, appropriate affect, intact judgment & insight - Labs CBC & Chem 7: 12/04/16 08:14 12/03/16 06:50 Labs: Abnormal Lab Results - Last 24 Hours (Table) 12/03/16 12/03/16 12/04/16 Range/Units 17:12 21:09 07:11 Hgb (13.0-17.5) gm/dL Lymphocytes # (1.0-4.8) k/uL POC Glucose (mg/dL) 324 H 132 H 136 H (75-99) mg/dL 12/04/16 12/04/16 Range/Units 08:14 10:06 Hgb 12.9 L (13.0-17.5) gm/dL Lymphocytes # 0.8 L (1.0-4.8) k/uL POC Glucose (mg/dL) 182 H (75-99) mg/dL Microbiology - Last 24 Hours (Table) 12/03/16 06:50 Blood Culture - Preliminary Blood No Growth after 24 hours Assessment and Plan Plan: 1. Left lower extremity cellulitis involving the leg and part of the foot. Blood cultures 2 every 15 minutes, continue Ancef 2 g IV piggyback every 8 hours, continue Silvadene cream 1% apply twice every day cover with Kerlix and Del wrap, leg elevation, venous Doppler of the left lower extremity, patient does appear to have a decrease in his dorsalis pedis as opposed to the right lower extremity, we will monitor the patient really closely. No evidence of any neurovascular bundle compromise, ID consultation Dr. Jeffrey. 2. History of coronary artery disease status post coronary artery bypass graft for 6 vessel disease with chronically occluded saphenous venous graft to the obtuse marginal branch and status post PCI of the saphenous graft to the RCA. Continue Plavix 75 mg daily, aspirin 81mg daily, Lipitor, Lopressor 100 mg twice daily, nitroglycerin as needed. 3. Diabetes mellitus type 2 and diabetic polyneuropathy. Continue Lantus 27 units at bedtime, Humalog as directed along with metformin 1000 mg orally twice every day continue consistent carb diet 1800, BGM before each meal and at bedtime. 4. Hypertension, hypertensive cardiovascular disease. Continue Catapres 0.1 mg twice daily, Lopressor 100 mg twice daily, losartan/hydrochlorothiazide 50/ 12.5 mg orally once daily along with hydralazine 75 mg orally twice every day. 5. Hyperlipidemia. We will continue Lipitor 40 mg orally once every day. 6. Obstructive sleep apnea. Continue CPAP as per home settings. 7. Leukocytosis due to cellulitis. will continue with same treatment and will repeat cbc in AM 8. Chronic wound to the left forearm with recent partial wound dehiscence. Due to compartment syndrome has resolved. 9. DVT prophylaxis. Continue patient on heparin 5000 units subcutaneously every 8 hours. 10. Prophylaxis. Continue with current PPI. 11. Full code. Discharge plan: Return home on Wednesday Impression and plan of care have been directed as dictated by the signing physician. Dipika Mendez nurse practitioner acting as scribe for signing physician.
[2016-12-04 17:12] LABS: Glucose,Whole Blood 174 mg/dL (75-99)
--- NOTE | 2016-12-04 18:36 | P.PN ---
Subjective Progress Note Date: 12/04/16 This is a 51-year-old male patient known to ID service as he was seen for previous left forearm wound underwent I&D in the emergency center and was then sent to Dr. Maksim Contreras. He underwent a repeat incision and drainage of the left volar forearm abscess. He developed significant bleeding and came to [facility] emergency center for evaluation. The emergency department did local wound care and put several stitches in the forearm but the patient went home and developed increasing pain swelling and could not move his fingers and came back to the emergency center in the morning. He was diagnosed with post compartment syndrome and was taken to the OR by Dr. Shaver for a left volar forearm compartment fasciotomy. He was then treated in the wound center and discharged from there on September 22 as the wound had completely healed. He gives history that he was at his cabin [place] in [place] on Wednesday was chopping wood and dropped a piece of wood onto his left foot/ankle area. He states the pain has gradually worsened. He came home around midnight last evening and tried to sleep in a recliner chair but pain continued to worsen and he came into [facility] emergency center for evaluation. He denies having any fever or chills. No nausea vomiting or diarrhea. No change in appetite. He has not been treated with antibiotics prior to this admission. Patient was [facility] floor and started on Kefzol. Wound culture of the left forearm from [facility] was positive for MSSA. He does have history of MRSA in 2015 from abdominal wound. She is known to have significant coronary artery disease status post 6 vessel CABG in 2006 along with PCI and stent to the saphenous vein graft to the RCA in 2015 and at that time had a non-ST elevated myocardial infarction. He also states that he was recently cathed in September but did not have any new blockages. He is known to have a DVT in the past. Patient is feeling better today. Has been seen by orthopedics with no need for surgical intervention. Objective - Vital Signs Vital signs: Vital Signs Temp 97.6 F 12/04/16 14:51 Pulse 69 12/04/16 14:51 Resp 18 12/04/16 14:51 BP 127/72 12/04/16 14:51 Pulse Ox 95 12/04/16 14:51 Intake & Output 12/03/16 12/04/16 12/04/16 18:59 06:59 18:59 Intake Total 500 Balance 500 Weight 83.915 kg Intake: Oral 500 Other: Voiding Method Toilet Toilet Urinal Urinal # Voids 1 2 2 - Exam Gen: This is a 51-year-old male. He is seen on the [facility] floor and appears to be comfortable. HEENT: Head is atraumatic, normocephalic. Pupils equal, round. Sclerae is anicteric. NECK: Supple. No JVD. No lymphadenopathy. No thyromegaly. LUNGS: Diminished but otherwise clear to auscultation. No wheezes or rhonchi. No intercostal retractions. HEART: Regular rate and rhythm. Systolic murmur. ABDOMEN: Soft. Bowel sounds are present. No masses. No tenderness. EXTREMITIES: There is 1+ pedal edema to the left foot and ankle area with some improvement to the erythema from the mid dorsum of the foot to the distal tib- fib area. Area is very tender to touch. No drainage noted. Dorsalis pedis is +1. Dorsalis pedis on the right foot is very strong. NEUROLOGICAL: Patient is awake, alert and oriented x3 - Labs CBC & Chem 7: 12/04/16 08:14 12/03/16 06:50 Labs: Abnormal Lab Results - Last 24 Hours (Table) 12/03/16 12/04/16 12/04/16 Range/Units 21:09 07:11 08:14 Hgb 12.9 L (13.0-17.5) gm/dL Lymphocytes # 0.8 L (1.0-4.8) k/uL POC Glucose (mg/dL) 132 H 136 H (75-99) mg/dL 12/04/16 12/04/16 12/04/16 Range/Units 10:06 12:08 17:10 Hgb (13.0-17.5) gm/dL Lymphocytes # (1.0-4.8) k/uL POC Glucose (mg/dL) 182 H 154 H 174 H (75-99) mg/dL Microbiology - Last 24 Hours (Table) 12/03/16 06:50 Blood Culture - Preliminary Blood No Growth after 24 hours Laboratory Results WBC 9.2 k/uL (3.8-10.6) 12/04/16 08:14 RBC 4.67 m/uL (4.30-5.90) 12/04/16 08:14 Hgb 12.9 gm/dL (13.0-17.5) L 12/04/16 08:14 Hct 39.3 % (39.0-53.0) 12/04/16 08:14 MCV 84.1 fL (80.0-100.0) 12/04/16 08:14 MCH 27.6 pg (25.0-35.0) 12/04/16 08:14 MCHC 32.8 g/dL (31.0-37.0) 12/04/16 08:14 RDW 15.1 % (11.5-15.5) 12/04/16 08:14 Plt Count 163 k/uL (150-450) 12/04/16 08:14 Neutrophils % 75 % 12/04/16 08:14 Lymphocytes % 9 % 12/04/16 08:14 Monocytes % 8 % 12/04/16 08:14 Eosinophils % 6 % 12/04/16 08:14 Basophils % 0 % 12/04/16 08:14 Neutrophils # 6.8 k/uL (1.3-7.7) 12/04/16 08:14 Lymphocytes # 0.8 k/uL (1.0-4.8) L 12/04/16 08:14 Monocytes # 0.8 k/uL (0-1.0) 12/04/16 08:14 Eosinophils # 0.5 k/uL (0-0.7) 12/04/16 08:14 Basophils # 0.0 k/uL (0-0.2) 12/04/16 08:14 PT 10.7 sec (9.0-12.0) 12/03/16 06:50 INR 1.1 (<1.2) 12/03/16 06:50 APTT 25.1 sec (22.0-30.0) 12/03/16 06:50 D-Dimer 0.54 mg/L FEU (<0.60) 12/03/16 06:50 Sodium 137 mmol/L (137-145) 12/03/16 06:50 Potassium 3.8 mmol/L (3.5-5.1) 12/03/16 06:50 Chloride 96 mmol/L (98-107) L 12/03/16 06:50 Carbon Dioxide 25 mmol/L (22-30) 12/03/16 06:50 Anion Gap 16 mmol/L 12/03/16 06:50 BUN 23 mg/dL (9-20) H 12/03/16 06:50 Creatinine 0.84 mg/dL (0.66-1.25) 12/03/16 06:50 Est GFR (MDRD) Af Amer >60 (>60 ml/min/1.73 sqM) 12/03/16 06:50 Est GFR (MDRD) Non-Af >60 (>60 ml/min/1.73 sqM) 12/03/16 06:50 Glucose 233 mg/dL (74-99) H 12/03/16 06:50 POC Glucose (mg/dL) 174 mg/dL (75-99) H 12/04/16 17:10 POC Glu Training Development Director ID Daisy Vaughan 12/04/16 17:10 Lactic Ac Sepsis Rflx Y 12/03/16 07:25 Plasma Lactic Acid Oskar 0.7 mmol/L (0.7-2.0) 12/03/16 11:13 Calcium 9.2 mg/dL (8.4-10.2) 12/03/16 06:50 Phosphorus 2.9 mg/dL (2.5-4.5) 12/03/16 06:50 Magnesium 1.7 mg/dL (1.6-2.3) 12/03/16 06:50 Total Bilirubin 1.2 mg/dL (0.2-1.3) 12/03/16 06:50 AST 32 U/L (17-59) 12/03/16 06:50 ALT 50 U/L (21-72) 12/03/16 06:50 Alkaline Phosphatase 109 U/L (38-126) 12/03/16 06:50 Total Creatine Kinase 233 U/L (55-170) H 12/03/16 06:50 CK-MB (CK-2) 3.0 ng/mL (0.0-2.4) H* 12/03/16 06:50 CK-MB (CK-2) Rel Index 1.3 12/03/16 06:50 Troponin I 0.018 ng/mL (0.000-0.034) 12/03/16 06:50 Total Protein 7.3 g/dL (6.3-8.2) 12/03/16 06:50 Albumin 4.3 g/dL (3.5-5.0) 10 06:50 Microbiology 12/03/16 06:50 Blood Blood Culture - Preliminary No Growth after 24 hours Assessment and Plan (1) Ankle pain, left Narrative/Plan: Patient is feeling better today. There is less erythema less tenderness less swelling still has having discomfort with manipulation. Because of the patient has trauma to the left lower extremity he was seen by orthopedics with no surgical plan noted. This developed a significant increase amount of swelling with cellulitis. Antimicrobial therapy daptomycin will be utilized or the extensive cellulitis. Local wound care with Silvadene and elevation continues He is up-to-date with his tetanus. We'll ensure adequate protein supplementation. Multivitamin has been ordered. The leukocytosis appears to be directly related to the significant infection to the left lower extremity. Status: Acute
[2016-12-04 20:32] LABS: Glucose,Whole Blood 162 mg/dL (75-99)
[2016-12-04] MEDS: ASPIRIN 325 MG TAB PO SCH (21:36)
[2016-12-04] MEDS: INSULIN GLARGINE 100 UNIT/ML 10 ML VIAL SQ SCH (21:46)
[2016-12-05] MEDS: HYDROmorphone 1 MG/ML 1 ML SYRINGE IVP PRN ×5 (01:12→21:21)
[2016-12-05] MEDS: SODIUM CHLORIDE 0.9% 1,000 ML IV SCH ×3 (06:12→18:03)
[2016-12-05 07:35] LABS: Glucose,Whole Blood 121 mg/dL (75-99)
[2016-12-05] MEDS: INSULIN LISPRO (humaLOG) 300 UNIT/3 ML VIAL SQ SCH ×3 (07:55→18:02)
[2016-12-05] MEDS: metFORMIN 500 MG TAB PO SCH ×2 (07:56→18:03)
[2016-12-05] MEDS: cloNIDine HCL 0.1 MG TAB PO SCH ×2 (07:56→21:24)
[2016-12-05] MEDS: HEPARIN SODIUM,PORCINE 5,000 UNIT/ML 1 ML VIAL SQ SCH ×2 (07:56→15:50)
[2016-12-05] MEDS: CLOPIDOGREL 75 MG TAB PO SCH (07:56)
[2016-12-05] MEDS: LOSARTAN-HCTZ 50-12.5 MG 1 EACH TAB PO SCH (07:57)
[2016-12-05] MEDS: METOPROLOL TARTRATE 50 MG TAB PO SCH ×2 (07:57→21:24)
[2016-12-05] MEDS: hydrALAZINE HCL 25 MG TAB PO SCH ×2 (07:57→21:24)
[2016-12-05] MEDS: HYDROcodone/APAP 7.5-325MG 1 EACH TAB PO PRN ×3 (08:06→23:24)
--- NOTE | 2016-12-05 08:35 | P.PN ---
Subjective Progress Note Date: 12/05/16 Principal diagnosis: Left leg cellulitis The patient is a 51 year old male that we have been following for left lower leg cellulitis. The cellulitis has been improving on IV antibiotics. He continues to have problems with weightbearing on the leg due to pain. He denies fever, chills, shortness of breath, and chest pain this morning. No new complaints today. Objective - Vital Signs Vital signs: Vital Signs Temp 99.1 F 12/05/16 07:00 Pulse 96 12/05/16 07:00 Resp 18 12/05/16 07:00 BP 169/92 12/05/16 07:00 Pulse Ox 95 12/05/16 07:00 Intake & Output 12/04/16 12/05/16 12/05/16 18:59 06:59 18:59 Output Total 850 Balance -850 Output: Urine 850 Other: Voiding Method Toilet Urinal # Voids 2 - Exam The patient is a 51 y/o male who is alert and oriented x3. He is in no acute distress. Exam of the left leg reveals redness and edema to the anteriolateral aspect of the leg above the ankle. The redness has continued to recede from the marked area from two days ago. Pain upon motion of the ankle and on palpation. Improving edema, +1. Dorsalis pedis is diminished when compared to the right foot. Bilateral calves are soft and non-tender. Circulatory and neurological status is intact. - Labs CBC & Chem 7: 12/04/16 08:14 12/03/16 06:50 Labs: Abnormal Lab Results - Last 24 Hours (Table) 12/04/16 12/04/16 12/04/16 Range/Units 08:14 10:06 12:08 Hgb 12.9 L (13.0-17.5) gm/dL Lymphocytes # 0.8 L (1.0-4.8) k/uL POC Glucose (mg/dL) 182 H 154 H (75-99) mg/dL 12/04/16 12/04/16 12/05/16 Range/Units 17:10 20:29 07:11 Hgb (13.0-17.5) gm/dL Lymphocytes # (1.0-4.8) k/uL POC Glucose (mg/dL) 174 H 162 H 121 H (75-99) mg/dL Microbiology - Last 24 Hours (Table) 12/03/16 06:50 Blood Culture - Preliminary Blood No Growth after 24 hours Assessment and Plan (1) Cellulitis Status: Acute (2) Ankle pain, left Status: Acute Plan: The clinical findings were discussed with the patient. No surgical intervention is needed at this time. The patient appears to be improving on IV antibiotics in the form of daptomycin and Silvadene cream. He may weight-bear as tolerated on the left leg. He may need a premium equalizer boot if he continues to have problems with weightbearing. A script will be left in the chart if the patient wishes to use it. We will sign off at this time but we will be happy to reevaluate the patient if his condition changes. He will follow up in our office upon discharge.
[2016-12-05 12:16] LABS: Glucose,Whole Blood 174 mg/dL (75-99)
--- NOTE | 2016-12-05 12:33 | PN ---
PROGRESS NOTE INTERVAL HISTORY: Patient continues to have left lower extremity pain despite elevation. He is still complaining of swelling and minimal improvement, as patient indicated it is not more than 25% improvement since admission. The patient denied chest pain, shortness of breath, nausea, vomiting, abdominal pain, dizziness, lightheadedness and blurry vision. PHYSICAL EXAMINATION: VITAL SIGNS: 97.7, heart rate of 78, respiratory rate 14, blood pressure 153/81, and saturation is 94% on room air. LUNGS: Clear to auscultation bilaterally. HEART: Normal S1, S2. ABDOMEN: Soft. No tenderness. Positive bowel sounds in all 4 quadrants. LOWER EXTREMITIES: Positive for left lower extremity swelling and location of the cellulitis and down to the foot. The cellulitis looks erythematous with swelling and tenderness to touch. No open sores identified. It is located to the ankle area and the lower part of the caballero. Pulses are positive bilaterally. SKIN: No new rash. IMAGING AND LABS: Glucose continues to be stable between 121 and 154. Blood cultures are still pending negative. ASSESSMENT AND PLAN: 1. Left lower extremity extensive cellulitis with slow improvement course. Would like to continue with IV antibiotics. Infectious Disease evaluated the patient and recommended antibiotics to be continued for 3 days at least and to be re-evaluated. Patient is agreeable to the current treatment plan. Will continue with pain management and leg elevation. 2. Diabetes, type 2, with neuropathy. Will continue home medication. Seems to be under fair control. 3. Hypertension, under fair control. 4. Hyperlipidemia. Will continue Lipitor. 5. Obstructive sleep apnea. 6. Discharge planning based on clinical progress. MMODL / IJN: [id number] /
[2016-12-05] MEDS: MULTIVITAMINS, THERA 1 EACH TAB PO SCH (12:54)
[2016-12-05] MEDS: DAPTOmycin 500 MG in SODIUM CHLORIDE 0.9% 50 ML IV SCH (12:54)
[2016-12-05] MEDS: ACETAMINOPHEN TAB 325 MG TAB PO PRN (16:15)
[2016-12-05 17:17] LABS: Glucose,Whole Blood 175 mg/dL (75-99)
[2016-12-05 20:51] LABS: Glucose,Whole Blood 132 mg/dL (75-99)
[2016-12-05] MEDS: INSULIN GLARGINE 100 UNIT/ML 10 ML VIAL SQ SCH (21:23)
[2016-12-05] MEDS: ASPIRIN 325 MG TAB PO SCH (21:24)
[2016-12-06] MEDS: HYDROmorphone 1 MG/ML 1 ML SYRINGE IVP PRN ×5 (04:21→23:25)
[2016-12-06] MEDS: SODIUM CHLORIDE 0.9% 1,000 ML IV SCH ×3 (04:25→21:16)
[2016-12-06 07:21] LABS: Glucose,Whole Blood 87 mg/dL (75-99)
[2016-12-06 07:24] LABS: Basophils % (A) 1 %; CH 28.8; CHCM 34.4; Eosinophils # (A) 0.5 k/uL (0-0.7); Eosinophils % (A) 6 %; HCT 37.1 % (39.0-53.0); HGB 12.1 gm/dL (13.0-17.5); Luc # (Auto) 0.21; Luc % (Auto) 3; Lymphocytes # (A) 0.8 k/uL (1.0-4.8); Lymphocytes % (A) 10 %; MCH 27.4 pg (25.0-35.0); MCHC 32.6 g/dL (31.0-37.0); Mean Platelet Volume 7.8; Monocytes # (A) 0.7 k/uL (0-1.0); Monocytes % (A) 9 %; Neutrophils # (A) 5.8 k/uL (1.3-7.7); Neutrophils % (A) 71 %; RBC 4.42 m/uL (4.30-5.90); RDW 14.9 % (11.5-15.5); WBC 8.1 k/uL (3.8-10.6); WBC (Perox) 8.59
[2016-12-06 07:31] LABS: Anion Gap 8 mmol/L; Blood Urea Nitrogen 14 mg/dL (9-20); Calcium 8.1 mg/dL (8.4-10.2); Carbon Dioxide 26 mmol/L (22-30); Chloride 102 mmol/L (98-107); Glucose 79 mg/dL (74-99); Non-African American GFR(MDRD) >60 (>60 ml/min/1.73 sqM); Potassium 3.4 mmol/L (3.5-5.1); Sodium 136 mmol/L (137-145)
[2016-12-06] MEDS: metFORMIN 500 MG TAB PO SCH ×2 (07:51→17:43)
[2016-12-06] MEDS: HEPARIN SODIUM,PORCINE 5,000 UNIT/ML 1 ML VIAL SQ SCH ×4 (07:51→23:25)
[2016-12-06] MEDS: cloNIDine HCL 0.1 MG TAB PO SCH ×2 (07:52→21:16)
[2016-12-06] MEDS: CLOPIDOGREL 75 MG TAB PO SCH (07:52)
[2016-12-06] MEDS: hydrALAZINE HCL 25 MG TAB PO SCH ×2 (07:52→21:15)
[2016-12-06] MEDS: INSULIN LISPRO (humaLOG) 300 UNIT/3 ML VIAL SQ SCH ×3 (07:52→17:43)
[2016-12-06] MEDS: LOSARTAN-HCTZ 50-12.5 MG 1 EACH TAB PO SCH (07:53)
[2016-12-06] MEDS: METOPROLOL TARTRATE 50 MG TAB PO SCH ×2 (07:53→21:16)
[2016-12-06] MEDS ORDERED: Potassium Replacement Protocol 1 EACH MISC MISCELLANE PRN (10:19)
[2016-12-06] MEDS: POTASSIUM CHLORIDE ER 20 MEQ TAB.ER PO SCH ×2 (10:43→12:59)
[2016-12-06] MEDS: HYDROcodone/APAP 7.5-325MG 1 EACH TAB PO PRN ×2 (10:43→20:54)
[2016-12-06 12:22] LABS: Glucose,Whole Blood 188 mg/dL (75-99)
[2016-12-06] MEDS: DAPTOmycin 500 MG in SODIUM CHLORIDE 0.9% 50 ML IV SCH (12:59)
[2016-12-06] MEDS: MULTIVITAMINS, THERA 1 EACH TAB PO SCH (12:59)
[2016-12-06 17:05] LABS: Glucose,Whole Blood 80 mg/dL (75-99)
--- NOTE | 2016-12-06 17:31 | PN ---
PROGRESS NOTE The patient states that he has improved by 50% since admission with swelling has come down and he was able to bear pressure on his foot this morning. Patient still denying chest pain, shortness of breath. No nausea, vomiting, abdominal pain, dizziness, or blurry vision. His glucose has been under fair control during this hospital stay. PHYSICAL EXAMINATION: Vital signs reviewed and stable. S1, S2, Abdomen soft, nontender. Bowel sounds in all four quadrants. Lower extremity positive for right lower extremity has improved at least by 50% with decreased redness and swelling and based on the markings from prior evaluation, pulses are palpable bilaterally. Psych: Alert oriented x3. Neuro intact. IMAGING AND LAB DATA: Glucose continues to be within acceptable range. CBC showed stable hemoglobin at 12.5. Chemistry showed mild hypokalemia and mild hyponatremia. Calcium level 8.1. Blood cultures remained negative. ASSESSMENT AND PLAN: 1. Left lower extremity extensive cellulitis with slow improvement. Course: The patient started to have some improvement with IV antibiotics. Infectious Disease recommended continuation of IV antibiotics at least until Wednesday to be switched to oral antibiotics based on clinical progress. We will follow up on culture results. We will follow up on the patient healing process and continue with leg elevation. 2. Diabetes type 2 with neuropathy. Patient glucose under fair control and we will continue with current regimen. 3. Hypertension, under fair control. 4. Obstructive sleep apnea, follow up with primary care physician as an outpatient. 5. Hyperlipidemia will continue Lipitor. 6. Discharge planning based on clinical progress. MMCHEOL / JODIEN: [id number] /
[2016-12-06] MEDS: ASPIRIN 325 MG TAB PO SCH (21:15)
[2016-12-06 21:35] LABS: Glucose,Whole Blood 112 mg/dL (75-99)
[2016-12-06] MEDS: INSULIN GLARGINE 100 UNIT/ML 10 ML VIAL SQ SCH (21:36)
[2016-12-07] MEDS: HYDROmorphone 1 MG/ML 1 ML SYRINGE IVP PRN ×5 (05:34→23:43)
[2016-12-07] MEDS: SODIUM CHLORIDE 0.9% 1,000 ML IV SCH ×3 (05:34→19:53)
[2016-12-07 07:19] LABS: Glucose,Whole Blood 118 mg/dL (75-99)
[2016-12-07] MEDS: INSULIN LISPRO (humaLOG) 300 UNIT/3 ML VIAL SQ SCH ×4 (07:34→17:51)
[2016-12-07] MEDS: METOPROLOL TARTRATE 50 MG TAB PO SCH ×2 (07:35→21:35)
[2016-12-07] MEDS: HYDROcodone/APAP 7.5-325MG 1 EACH TAB PO PRN ×2 (07:35→12:53)
[2016-12-07] MEDS: metFORMIN 500 MG TAB PO SCH ×2 (07:36→17:27)
[2016-12-07] MEDS: hydrALAZINE HCL 25 MG TAB PO SCH ×2 (07:36→21:36)
[2016-12-07] MEDS: CLOPIDOGREL 75 MG TAB PO SCH (07:36)
[2016-12-07] MEDS: cloNIDine HCL 0.1 MG TAB PO SCH ×2 (07:36→21:36)
[2016-12-07] MEDS: LOSARTAN-HCTZ 50-12.5 MG 1 EACH TAB PO SCH (07:36)
[2016-12-07] MEDS: HEPARIN SODIUM,PORCINE 5,000 UNIT/ML 1 ML VIAL SQ SCH ×3 (07:37→23:57)
--- NOTE | 2016-12-07 11:44 | US ---
EXAMINATION TYPE: US venous doppler duplex LE LT DATE OF EXAM: 12/07/2016 10:43 AM COMPARISON: 12/03/2016 CLINICAL HISTORY: attention above the knee, worsening edema. SIDE PERFORMED: Left TECHNIQUE: The lower extremity deep venous system is examined utilizing real time linear array sonog nancy with graded compression, doppler sonography and color-flow sonography. VESSELS IMAGED: External Iliac Vein (EIV) Common Femoral Vein Deep Femoral Vein Greater Saphenous Vein * Femoral Vein Popliteal Vein Proximal Calf Veins (* superficial vessels) Left Leg: Negative for DVT IMPRESSION: 1. No diagnostic evidence of DVT.
[2016-12-07] MEDS: MULTIVITAMINS, THERA 1 EACH TAB PO SCH (11:52)
[2016-12-07] MEDS: DAPTOmycin 500 MG in SODIUM CHLORIDE 0.9% 50 ML IV SCH (11:52)
[2016-12-07 12:23] LABS: Glucose,Whole Blood 105 mg/dL (75-99)
--- NOTE | 2016-12-07 14:44 | P.PN ---
Subjective Progress Note Date: 12/07/16 This is a 51-year-old patient of Dr. Montesinos with past medical history for coronary artery disease status post 6 vessel CABG in 2006 with MAE to LAD, saphenous venous graft to the PDA, saphenous venous graft to the obtuse marginal one, radial artery to the obtuse marginal branch 2 and saphenous venous graft to the obtuse marginal 3 followed by heart catheterization with PCI and stent of the saphenous venous graft to the RCA in 2015 at which time he presented with non-ST elevated myocardial infarction. History of diabetes mellitus2 with diabetic polyneuropathy, hyperlipidemia, hypertension, hypertensive cardiovascular disease with left ventricular hypertrophy, asthma, sleep apnea on CPAP, chronic low back pain, chronic kidney disease, DVT in the past. Patient presented to [facility] emergency center with complaints of increased pain and swelling of the left lower extremity after he dropped a log of wood on his leg and foot on the [place], he got back to [place] at around midnight went to the recliner slept all night long woke up in the morning with significant erythema and swelling of the left foot on the left leg with lymphangitic streaks orally up to the leg patient ended up coming to the ER for eval you she was found to have a elevated white count 15,000 with elevated lactic acid, patient was started on IV antibiotic in the form of Ancef 2 g IV piggyback every 8 hours, he was admitted to the hospital Silvadene cream will be applied to the left lower extremity and wrapped with a Kerlix and Del wrap. Venous Doppler of the left lower extremity will be obtained. 12/04: Patient has been seen by Dr. Jeffrey with recommendations to add in daptomycin for MRSA coverage. Multivitamin added. Local wound care is in the form of Silvadene dressing. Orthopedics is following up with no surgical intervention at this time. Patient states that he continues to have severe pain in a #10 but he is feeling better and he can move his toes a little bit. Left lower extremity ultrasound was negative for DVT. Blood cultures showing no growth at 24 hours. 12/07: Patient has more erythema today, edema to the foot but ankle edema appears to be better. He states he is able to put some weight on it. He is requesting to go home. Discharge held today and he is agreeable. Await further recommendations from Dr. Jeffrey. Orthopedics is left a prescription for premium equalizer boot and have signed off the case. Objective - Vital Signs Vital signs: Vital Signs Temp 98.5 F 12/07/16 07:00 Pulse 77 12/07/16 07:00 Resp 18 12/07/16 07:00 BP 137/91 12/07/16 07:00 Pulse Ox 91 L 12/07/16 07:00 Intake & Output 12/06/16 12/07/16 12/07/16 18:59 06:59 18:59 Intake Total 500 Balance 500 Intake: Oral 500 Other: Voiding Method Toilet # Voids 2 2 1 # Bowel Movements 0 - Exam General appearance: average body habitus, mild distress - EENT Eyes: anicteric sclerae, EOMI, PERRLA, no ptosis, no scleral icterus, normal appearance ENT: hearing grossly normal, NA/AT, normal oropharynx, no thrush, no tonsillar exudates, no tonsillar swelling Ears: bilateral: normal - Neck Neck: no lymphadenopathy, normal ROM, no rigidity, no stridor, no thyromegaly Carotids: bilateral: upstroke normal Thyroid: bilateral: normal size - Respiratory Respiratory: bilateral: diminished, negative: dullness, rales, rhonchi, wheezing , prolonged expiration, prolonged inspiration - Cardiovascular Rhythm: regular Heart sounds: normal: S1, S2 Abnormal Heart Sounds: systolic murmur, no S3 Gallop, no S4 Gallop, no click - Gastrointestinal General gastrointestinal: normal bowel sounds, soft, no splenomegaly, no tenderness, no umbilical hernia, no ventral hernia - Integumentary Integumentary: normal, normal turgor - Neurologic Neurologic: CNII-XII intact - Musculoskeletal Musculoskeletal: gait normal, generalized weakness - Psychiatric Psychiatric: A&O x's 3, appropriate affect, intact judgment & insight - Labs CBC & Chem 7: 12/06/16 07:06 12/06/16 14:24 Labs: Abnormal Lab Results - Last 24 Hours (Table) 12/06/16 12/07/16 12/07/16 Range/Units 21:30 07:17 12:21 POC Glucose (mg/dL) 112 H 118 H 105 H (75-99) mg/dL Microbiology - Last 24 Hours (Table) 12/03/16 06:50 Blood Culture - Preliminary Blood No Growth after 96 hours Assessment and Plan Plan: 1. Left lower extremity cellulitis involving the leg and part of the foot. Continue daptomycin, continue Silvadene cream 1% apply twice every day cover with Kerlix and Del wrap, leg elevation, venous Doppler of the left lower extremity was negative, patient does appear to have a decrease in his dorsalis pedis as opposed to the right lower extremity, we will monitor the patient really closely. No evidence of any neurovascular bundle compromise, ID consultation Dr. Jeffrey. 2. History of coronary artery disease status post coronary artery bypass graft for 6 vessel disease with chronically occluded saphenous venous graft to the obtuse marginal branch and status post PCI of the saphenous graft to the RCA. Continue Plavix 75 mg daily, aspirin 81mg daily, Lipitor, Lopressor 100 mg twice daily, nitroglycerin as needed. 3. Diabetes mellitus type 2 and diabetic polyneuropathy. Continue Lantus 27 units at bedtime, Humalog as directed along with metformin 1000 mg orally twice every day continue consistent carb diet 1800, BGM before each meal and at bedtime. 4. Hypertension, hypertensive cardiovascular disease. Continue Catapres 0.1 mg twice daily, Lopressor 100 mg twice daily, losartan/hydrochlorothiazide 50/ 12.5 mg orally once daily along with hydralazine 75 mg orally twice every day. 5. Hyperlipidemia. We will continue Lipitor 40 mg orally once every day. 6. Obstructive sleep apnea. Continue CPAP as per home settings. 7. Leukocytosis due to cellulitis. will continue with same treatment and will repeat cbc in AM 8. Chronic wound to the left forearm with recent partial wound dehiscence. Due to compartment syndrome has resolved. 9. DVT prophylaxis. Continue patient on heparin 5000 units subcutaneously every 8 hours. 10. Prophylaxis. Continue with current PPI. 11. Full code. Discharge plan: Return home on Wednesday Impression and plan of care have been directed as dictated by the signing physician. Dipika Mendez nurse practitioner acting as scribe for signing physician.
[2016-12-07 17:20] LABS: Glucose,Whole Blood 159 mg/dL (75-99)
--- NOTE | 2016-12-07 19:44 | P.PN ---
Subjective Progress Note Date: 12/07/16 Principal diagnosis: cellulitiis left leg distal This is a 51-year-old male patient known to ID service as he was seen for previous left forearm wound underwent I&D in the emergency center and was then sent to Dr. Maksim Contreras. He underwent a repeat incision and drainage of the left volar forearm abscess. He developed significant bleeding and came to [facility] emergency center for evaluation. The emergency department did local wound care and put several stitches in the forearm but the patient went home and developed increasing pain swelling and could not move his fingers and came back to the emergency center in the morning. He was diagnosed with post compartment syndrome and was taken to the OR by Dr. Shaver for a left volar forearm compartment fasciotomy. He was then treated in the wound center and discharged from there on September 22 as the wound had completely healed. He gives history that he was at his cabin up [place] in [place] on Wednesday was chopping wood and dropped a piece of wood onto his left foot/ankle area. He states the pain has gradually worsened. He came home around midnight last evening and tried to sleep in a recliner chair but pain continued to worsen and he came into [facility] emergency center for evaluation. He denies having any fever or chills. No nausea vomiting or diarrhea. No change in appetite. He has not been treated with antibiotics prior to this admission. Patient was admitted to the [facility] floor and started on Kefzol. Wound culture of the left forearm from [facility] was positive for MSSA. 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 She is known to have significant coronary artery disease status post 6 vessel CABG in 2006 along with PCI and stent to the saphenous vein graft to the RCA in 2015 and at that time had a non-ST elevated myocardial infarction. He also states that he was recently cathed in September but did not have any new blockages. He is known to have a DVT in the past. Patient is feeling better today. Has been seen by orthopedics with no need for surgical intervention. Had some increased erythema to the foot today. However able to take a few steps with slightly less pain. Objective - Vital Signs Vital signs: Vital Signs Temp 98.9 F 12/07/16 19:00 Pulse 83 12/07/16 19:00 Resp 24 12/07/16 19:00 BP 167/104 12/07/16 19:00 Pulse Ox 95 12/07/16 19:00 Intake & Output 12/07/16 12/07/16 12/08/16 06:59 18:59 06:59 Intake Total 500 Balance 500 Intake: Oral 500 Other: Voiding Method Toilet # Voids 2 3 # Bowel Movements 0 - Exam Gen: This is a 51-year-old male. He is seen on the [facility] floor and appears to be comfortable. HEENT: Head is atraumatic, normocephalic. Pupils equal, round. Sclerae is anicteric. NECK: Supple. No JVD. No lymphadenopathy. No thyromegaly. LUNGS: Diminished but otherwise clear to auscultation. No wheezes or rhonchi. No intercostal retractions. HEART: Regular rate and rhythm. Systolic murmur. ABDOMEN: Soft. Bowel sounds are present. No masses. No tenderness. EXTREMITIES: There is 1+ pedal edema to the left foot and ankle area with erythema from the mid dorsum of the foot to the distal tib-fib area. Area is tender to touch. No drainage noted. Dorsalis pedis is +1. Dorsalis pedis on the right foot is very strong. NEUROLOGICAL: Patient is awake, alert and oriented x3 - Labs CBC & Chem 7: 12/06/16 07:06 12/06/16 14:24 Labs: Abnormal Lab Results - Last 24 Hours (Table) 12/06/16 12/07/16 12/07/16 Range/Units 21:30 07:17 12:21 POC Glucose (mg/dL) 112 H 118 H 105 H (75-99) mg/dL 12/07/16 Range/Units 17:16 POC Glucose (mg/dL) 159 H (75-99) mg/dL Microbiology - Last 24 Hours (Table) 12/03/16 06:50 Blood Culture - Preliminary Blood No Growth after 96 hours Laboratory Results WBC 8.1 k/uL (3.8-10.6) 12/06/16 07:06 RBC 4.42 m/uL (4.30-5.90) 12/06/16 07:06 Hgb 12.1 gm/dL (13.0-17.5) L 12/06/16 07:06 Hct 37.1 % (39.0-53.0) L 12/06/16 07:06 MCV 84.0 fL (80.0-100.0) 12/06/16 07:06 MCH 27.4 pg (25.0-35.0) 12/06/16 07:06 MCHC 32.6 g/dL (31.0-37.0) 12/06/16 07:06 RDW 14.9 % (11.5-15.5) 12/06/16 07:06 Plt Count 176 k/uL (150-450) 12/06/16 07:06 Neutrophils % 71 % 12/06/16 07:06 Lymphocytes % 10 % 12/06/16 07:06 Monocytes % 9 % 12/06/16 07:06 Eosinophils % 6 % 12/06/16 07:06 Basophils % 1 % 12/06/16 07:06 Neutrophils # 5.8 k/uL (1.3-7.7) 12/06/16 07:06 Lymphocytes # 0.8 k/uL (1.0-4.8) L 12/06/16 07:06 Monocytes # 0.7 k/uL (0-1.0) 12/06/16 07:06 Eosinophils # 0.5 k/uL (0-0.7) 12/06/16 07:06 Basophils # 0.0 k/uL (0-0.2) 12/06/16 07:06 PT 10.7 sec (9.0-12.0) 12/03/16 06:50 INR 1.1 (<1.2) 12/03/16 06:50 APTT 25.1 sec (22.0-30.0) 12/03/16 06:50 D-Dimer 0.54 mg/L FEU (<0.60) 12/03/16 06:50 Sodium 136 mmol/L (137-145) L 12/06/16 07:06 Potassium 3.9 mmol/L (3.5-5.1) 12/06/16 14:24 Chloride 102 mmol/L (98-107) 12/06/16 07:06 Carbon Dioxide 26 mmol/L (22-30) 12/06/16 07:06 Anion Gap 8 mmol/L 12/06/16 07:06 BUN 14 mg/dL (9-20) 12/06/16 07:06 Creatinine 0.67 mg/dL (0.66-1.25) 12/06/16 07:06 Est GFR (MDRD) Af Amer >60 (>60 ml/min/1.73 sqM) 12/06/16 07:06 Est GFR (MDRD) Non-Af >60 (>60 ml/min/1.73 sqM) 12/06/16 07:06 Glucose 79 mg/dL (74-99) 12/06/16 07:06 POC Glucose (mg/dL) 159 mg/dL (75-99) H 12/07/16 17:16 POC Glu Marketing And Development Coordinator ID Rhoda Painter 12/07/16 17:16 Lactic Ac Sepsis Rflx Y 12/03/16 07:25 Plasma Lactic Acid Oskar 1.0 mmol/L (0.7-2.0) 12/06/16 07:06 Calcium 8.1 mg/dL (8.4-10.2) L 12/06/16 07:06 Phosphorus 2.9 mg/dL (2.5-4.5) 12/03/16 06:50 Magnesium 1.7 mg/dL (1.6-2.3) 12/03/16 06:50 Total Bilirubin 1.2 mg/dL (0.2-1.3) 12/03/16 06:50 AST 32 U/L (17-59) 12/03/16 06:50 ALT 50 U/L (21-72) 12/03/16 06:50 Alkaline Phosphatase 109 U/L (38-126) 12/03/16 06:50 Total Creatine Kinase 233 U/L (55-170) H 12/03/16 06:50 CK-MB (CK-2) 3.0 ng/mL (0.0-2.4) H* 12/03/16 06:50 CK-MB (CK-2) Rel Index 1.3 12/03/16 06:50 Troponin I 0.018 ng/mL (0.000-0.034) 12/03/16 06:50 Total Protein 7.3 g/dL (6.3-8.2) 12/03/16 06:50 Albumin 4.3 g/dL (3.5-5.0) 12/03/16 06:50 Microbiology 12/03/16 06:50 Blood Blood Culture - Preliminary No Growth after 96 hours Assessment and Plan (1) Ankle pain, left Narrative/Plan: Patient is feeling better today. There is less erythema less tenderness less swelling still has having discomfort with manipulation. Because of the patient has trauma to the left lower extremity he was seen by orthopedics with no surgical plan noted. This developed a significant increase amount of swelling with cellulitis. Antimicrobial therapy daptomycin will be utilized or the extensive cellulitis. Local wound care with Silvadene and elevation continues We'll continue for the next 24-48 hours to there is further improvement. Leukocytosis is improving. Some erythema was noted on the foot today that was slightly worse. With elevation wrap expect to be improved by tomorrow. He is up-to-date with his tetanus. We'll ensure adequate protein supplementation. Multivitamin has been ordered. The leukocytosis appears to be directly related to the significant infection to the left lower extremity. Status: Acute
[2016-12-07] MEDS ORDERED: INFLUENZA VACCINE (6 MOS+) 60 MCG/0.5 ML SYRINGE IM ONE (20:01)
[2016-12-07 20:17] LABS: Creatine Kinase MB 0.8 ng/mL (0.0-2.4); Troponin I 0.019 ng/mL (0.000-0.034)
[2016-12-07] MEDS ORDERED: ONDANSETRON 4 MG/2 ML VIAL IVP PRN (21:32)
[2016-12-07] MEDS: ASPIRIN 325 MG TAB PO SCH (21:36)
[2016-12-07 22:24] LABS: Glucose,Whole Blood 107 mg/dL (75-99)
[2016-12-07] MEDS: INSULIN GLARGINE 100 UNIT/ML 10 ML VIAL SQ SCH (22:25)
[2016-12-07] MEDS: ACETAMINOPHEN TAB 325 MG TAB PO PRN (23:43)
[2016-12-08] MEDS: SODIUM CHLORIDE 0.9% 1,000 ML IV SCH ×3 (05:16→22:36)
[2016-12-08] MEDS: HYDROmorphone 1 MG/ML 1 ML SYRINGE IVP PRN ×3 (06:53→17:10)
[2016-12-08 08:06] LABS: Glucose,Whole Blood 122 mg/dL (75-99)
[2016-12-08] MEDS: hydrALAZINE HCL 25 MG TAB PO SCH ×2 (08:12→21:41)
[2016-12-08] MEDS: METOPROLOL TARTRATE 50 MG TAB PO SCH ×2 (08:13→21:41)
[2016-12-08] MEDS: CLOPIDOGREL 75 MG TAB PO SCH (08:13)
[2016-12-08] MEDS: metFORMIN 500 MG TAB PO SCH ×2 (08:13→18:07)
[2016-12-08] MEDS: HYDROcodone/APAP 7.5-325MG 1 EACH TAB PO PRN ×2 (08:13→18:11)
[2016-12-08] MEDS: LOSARTAN-HCTZ 50-12.5 MG 1 EACH TAB PO SCH (08:13)
[2016-12-08] MEDS: cloNIDine HCL 0.1 MG TAB PO SCH ×2 (08:13→21:41)
[2016-12-08] MEDS: HEPARIN SODIUM,PORCINE 5,000 UNIT/ML 1 ML VIAL SQ SCH ×2 (08:13→18:07)
[2016-12-08] MEDS: INSULIN LISPRO (humaLOG) 300 UNIT/3 ML VIAL SQ SCH ×3 (08:16→18:12)
[2016-12-08] MEDS: PANTOPRAZOLE 40 MG TABLET PO SCH (09:17)
--- NOTE | 2016-12-08 11:29 | P.PN ---
Subjective Progress Note Date: 12/08/16 This is a 51-year-old patient of Dr. Montesinos with past medical history for coronary artery disease status post 6 vessel CABG in 2006 with MAE to LAD, saphenous venous graft to the PDA, saphenous venous graft to the obtuse marginal one, radial artery to the obtuse marginal branch 2 and saphenous venous graft to the obtuse marginal 3 followed by heart catheterization with PCI and stent of the saphenous venous graft to the RCA in 2015 at which time he presented with non-ST elevated myocardial infarction. History of diabetes mellitus2 with diabetic polyneuropathy, hyperlipidemia, hypertension, hypertensive cardiovascular disease with left ventricular hypertrophy, asthma, sleep apnea on CPAP, chronic low back pain, chronic kidney disease, DVT in the past. Patient presented to [facility] emergency center with complaints of increased pain and swelling of the left lower extremity after he dropped a log of wood on his leg and foot on the [place], he got back to [place] at around midnight went to the recliner slept all night long woke up in the morning with significant erythema and swelling of the left foot on the left leg with lymphangitic streaks orally up to the leg patient ended up coming to the ER for eval you she was found to have a elevated white count 15,000 with elevated lactic acid, patient was started on IV antibiotic in the form of Ancef 2 g IV piggyback every 8 hours, he was admitted to the hospital Silvadene cream will be applied to the left lower extremity and wrapped with a Kerlix and Del wrap. Venous Doppler of the left lower extremity will be obtained. 12/04: Patient has been seen by Dr. Jeffrey with recommendations to add in daptomycin for MRSA coverage. Multivitamin added. Local wound care is in the form of Silvadene dressing. Orthopedics is following up with no surgical intervention at this time. Patient states that he continues to have severe pain in a #10 but he is feeling better and he can move his toes a little bit. Left lower extremity ultrasound was negative for DVT. Blood cultures showing no growth at 24 hours. 12/07: Patient has more erythema today, edema to the foot but ankle edema appears to be better. He states he is able to put some weight on it. He is requesting to go home. Discharge held today and he is agreeable. Await further recommendations from Dr. Jeffrey. Orthopedics is left a prescription for premium equalizer boot and have signed off the case. 12/08: Patient again is asking to be discharged home. He continues to have some redness and swelling in the foot area which is improved from yesterday. Ankle area is red. Patient is agreeable to stay 1 more day. Objective - Vital Signs Vital signs: Vital Signs Temp 97.7 F 12/08/16 07:00 Pulse 81 12/08/16 07:00 Resp 20 12/08/16 08:00 BP 160/86 12/08/16 07:00 Pulse Ox 96 12/08/16 07:00 Intake & Output 12/07/16 12/08/16 12/08/16 18:59 06:59 18:59 Intake Total 400 Output Total 1 Balance 399 Weight 83.915 kg Intake: Oral 400 Output: Emesis 1 Other: Voiding Method Toilet # Voids 3 1 # Bowel Movements 0 - Exam General appearance: average body habitus, mild distress - EENT Eyes: anicteric sclerae, EOMI, PERRLA, no ptosis, no scleral icterus, normal appearance ENT: hearing grossly normal, NA/AT, normal oropharynx, no thrush, no tonsillar exudates, no tonsillar swelling Ears: bilateral: normal - Neck Neck: no lymphadenopathy, normal ROM, no rigidity, no stridor, no thyromegaly Carotids: bilateral: upstroke normal Thyroid: bilateral: normal size - Respiratory Respiratory: bilateral: diminished, negative: dullness, rales, rhonchi, wheezing , prolonged expiration, prolonged inspiration - Cardiovascular Rhythm: regular Heart sounds: normal: S1, S2 Abnormal Heart Sounds: systolic murmur, no S3 Gallop, no S4 Gallop, no click - Gastrointestinal General gastrointestinal: normal bowel sounds, soft, no splenomegaly, no tenderness, no umbilical hernia, no ventral hernia - Integumentary Integumentary: normal, normal turgor - Neurologic Neurologic: CNII-XII intact - Musculoskeletal Musculoskeletal: gait normal, generalized weakness - Psychiatric Psychiatric: A&O x's 3, appropriate affect, intact judgment & insight - Labs CBC & Chem 7: 12/06/16 07:06 12/06/16 14:24 Labs: Abnormal Lab Results - Last 24 Hours (Table) 12/07/16 12/07/16 12/07/16 Range/Units 12:21 17:16 19:14 POC Glucose (mg/dL) 105 H 159 H (75-99) mg/dL Total Creatine Kinase 38 L (55-170) U/L 12/07/16 12/08/16 Range/Units 21:59 07:53 POC Glucose (mg/dL) 107 H 122 H (75-99) mg/dL Total Creatine Kinase (55-170) U/L Microbiology - Last 24 Hours (Table) 12/03/16 06:50 Blood Culture - Preliminary Blood No Growth after 120 hours Assessment and Plan Plan: 1. Left lower extremity cellulitis involving the leg and part of the foot. Continue daptomycin, continue Silvadene cream 1% apply twice every day cover with Kerlix and Del wrap, leg elevation, venous Doppler of the left lower extremity was negative, patient does appear to have a decrease in his dorsalis pedis as opposed to the right lower extremity, we will monitor the patient really closely. No evidence of any neurovascular bundle compromise, ID consultation Dr. Jeffrey. 2. History of coronary artery disease status post coronary artery bypass graft for 6 vessel disease with chronically occluded saphenous venous graft to the obtuse marginal branch and status post PCI of the saphenous graft to the RCA. Continue Plavix 75 mg daily, aspirin 81mg daily, Lipitor, Lopressor 100 mg twice daily, nitroglycerin as needed. 3. Diabetes mellitus type 2 and diabetic polyneuropathy. Continue Lantus 27 units at bedtime, Humalog as directed along with metformin 1000 mg orally twice every day continue consistent carb diet 1800, BGM before each meal and at bedtime. 4. Hypertension, hypertensive cardiovascular disease. Continue Catapres 0.1 mg twice daily, Lopressor 100 mg twice daily, losartan/hydrochlorothiazide 50/ 12.5 mg orally once daily along with hydralazine 75 mg orally twice every day. 5. Hyperlipidemia. We will continue Lipitor 40 mg orally once every day. 6. Obstructive sleep apnea. Continue CPAP as per home settings. 7. Leukocytosis due to cellulitis. will continue with same treatment and will repeat cbc in AM 8. Chronic wound to the left forearm with recent partial wound dehiscence. Due to compartment syndrome has resolved. 9. DVT prophylaxis. Continue patient on heparin 5000 units subcutaneously every 8 hours. 10. Prophylaxis. Continue with current PPI. 11. Full code. Discharge plan: Return home on Wednesday Impression and plan of care have been directed as dictated by the signing physician. Dipika Mendez nurse practitioner acting as scribe for signing physician.
[2016-12-08] MEDS: DAPTOmycin 500 MG in SODIUM CHLORIDE 0.9% 50 ML IV SCH (12:11)
[2016-12-08] MEDS: MULTIVITAMINS, THERA 1 EACH TAB PO SCH (12:13)
[2016-12-08 12:36] LABS: Glucose,Whole Blood 130 mg/dL (75-99)
[2016-12-08] MEDS ORDERED: INFLUENZA VACCINE (6 MOS+) 60 MCG/0.5 ML SYRINGE IM ONE (15:00)
[2016-12-08 17:24] LABS: Glucose,Whole Blood 109 mg/dL (75-99)
[2016-12-08 21:00] LABS: Glucose,Whole Blood 165 mg/dL (75-99)
[2016-12-08] MEDS: INSULIN GLARGINE 100 UNIT/ML 10 ML VIAL SQ SCH (21:41)
[2016-12-08] MEDS: ASPIRIN 325 MG TAB PO SCH (21:41)
--- NOTE | 2016-12-08 22:16 | P.PN ---
Subjective Progress Note Date: 12/08/16 Principal diagnosis: cellulitiis left leg distal This is a 51-year-old male patient known to ID service as he was seen for previous left forearm wound underwent I&D in the emergency center and was then sent to Dr. Maksim Contreras. He underwent a repeat incision and drainage of the left volar forearm abscess. He developed significant bleeding and came to [facility] emergency center for evaluation. The emergency department did local wound care and put several stitches in the forearm but the patient went home and developed increasing pain swelling and could not move his fingers and came back to the emergency center in the morning. He was diagnosed with post compartment syndrome and was taken to the OR by Dr. Shaver for a left volar forearm compartment fasciotomy. He was then treated in the wound center and discharged from there on September 22 as the wound had completely healed. He gives history that he was at his cabin [place] in [place] on Wednesday was chopping wood and dropped a piece of wood onto his left foot/ankle area. He states the pain has gradually worsened. He came home around midnight last evening and tried to sleep in a recliner chair but pain continued to worsen and he came into [facility] emergency center for evaluation. He denies having any fever or chills. No nausea vomiting or diarrhea. No change in appetite. He has not been treated with antibiotics prior to this admission. Patient was admitted to the [facility] floor and started on Kefzol. Wound culture of the left forearm from [facility] was positive for MSSA. 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 She is known to have significant coronary artery disease status post 6 vessel CABG in 2006 along with PCI and stent to the saphenous vein graft to the RCA in 2015 and at that time had a non-ST elevated myocardial infarction. He also states that he was recently cathed in September but did not have any new blockages. He is known to have a DVT in the past. Patient is feeling better today. Has been seen by orthopedics with no need for surgical intervention. Erythema starting to improve. Pain is starting to improve. He is able to ambulate somewhat better when the foot is wrapped. Objective - Vital Signs Vital signs: Vital Signs Temp 98.9 F 12/08/16 16:49 Pulse 76 12/08/16 16:49 Resp 21 12/08/16 16:49 BP 144/76 12/08/16 16:49 Pulse Ox 97 12/08/16 16:49 Intake & Output 12/08/16 12/08/16 12/09/16 06:59 18:59 06:59 Intake Total 400 480 Output Total 1 Balance 399 480 Weight 83.915 kg Intake: Oral 400 480 Output: Emesis 1 Other: Voiding Method Toilet # Voids 1 2 - Exam Gen: This is a 51-year-old male. He is seen on the [facility] floor and appears to be comfortable. HEENT: Head is atraumatic, normocephalic. Pupils equal, round. Sclerae is anicteric. NECK: Supple. No JVD. No lymphadenopathy. No thyromegaly. LUNGS: Diminished but otherwise clear to auscultation. No wheezes or rhonchi. No intercostal retractions. HEART: Regular rate and rhythm. Systolic murmur. ABDOMEN: Soft. Bowel sounds are present. No masses. No tenderness. EXTREMITIES: There is 1+ pedal edema to the left foot and ankle area with erythema from the mid dorsum of the foot to the distal tib-fib area has improved today. Area is tender to touch. No drainage noted. Dorsalis pedis is +1. Dorsalis pedis on the right foot is very strong. NEUROLOGICAL: Patient is awake, alert and oriented x3 - Labs CBC & Chem 7: 12/06/16 07:06 12/06/16 14:24 Labs: Abnormal Lab Results - Last 24 Hours (Table) 12/07/16 12/07/16 12/08/16 Range/Units 15:24 21:59 07:53 POC Glucose (mg/dL) 107 H 122 H (75-99) mg/dL T-Suppressor Cells 157 L (190-832) cell/ul Total T Cells 583 L (704-2138) cell/ul Absolute CD4 Alvord 432 L (443-1471) cell/ul 12/08/16 12/08/16 12/08/16 Range/Units 12:32 17:12 20:59 POC Glucose (mg/dL) 130 H 109 H 165 H (75-99) mg/dL T-Suppressor Cells (190-832) cell/ul Total T Cells (704-2138) cell/ul Absolute CD4 Alvord (443-1471) cell/ul Microbiology - Last 24 Hours (Table) 12/03/16 06:50 Blood Culture - Preliminary Blood No Growth after 120 hours Laboratory Results WBC 8.1 k/uL (3.8-10.6) 12/06/16 07:06 RBC 4.42 m/uL (4.30-5.90) 12/06/16 07:06 Hgb 12.1 gm/dL (13.0-17.5) L 12/06/16 07:06 Hct 37.1 % (39.0-53.0) L 12/06/16 07:06 MCV 84.0 fL (80.0-100.0) 12/06/16 07:06 MCH 27.4 pg (25.0-35.0) 12/06/16 07:06 MCHC 32.6 g/dL (31.0-37.0) 12/06/16 07:06 RDW 14.9 % (11.5-15.5) 12/06/16 07:06 Plt Count 176 k/uL (150-450) 12/06/16 07:06 Neutrophils % 71 % 12/06/16 07:06 Lymphocytes % 10 % 12/06/16 07:06 Monocytes % 9 % 12/06/16 07:06 Eosinophils % 6 % 12/06/16 07:06 Basophils % 1 % 12/06/16 07:06 Neutrophils # 5.8 k/uL (1.3-7.7) 12/06/16 07:06 Lymphocytes # 0.8 k/uL (1.0-4.8) L 12/06/16 07:06 Monocytes # 0.7 k/uL (0-1.0) 12/06/16 07:06 Eosinophils # 0.5 k/uL (0-0.7) 12/06/16 07:06 Basophils # 0.0 k/uL (0-0.2) 12/06/16 07:06 PT 10.7 sec (9.0-12.0) 12/03/16 06:50 INR 1.1 (<1.2) 12/03/16 06:50 APTT 25.1 sec (22.0-30.0) 12/03/16 06:50 D-Dimer 0.54 mg/L FEU (<0.60) 12/03/16 06:50 Sodium 136 mmol/L (137-145) L 12/06/16 07:06 Potassium 3.9 mmol/L (3.5-5.1) 12/06/16 14:24 Chloride 102 mmol/L (98-107) 12/06/16 07:06 Carbon Dioxide 26 mmol/L (22-30) 12/06/16 07:06 Anion Gap 8 mmol/L 12/06/16 07:06 BUN 14 mg/dL (9-20) 12/06/16 07:06 Creatinine 0.67 mg/dL (0.66-1.25) 12/06/16 07:06 Est GFR (MDRD) Af Amer >60 (>60 ml/min/1.73 sqM) 12/06/16 07:06 Est GFR (MDRD) Non-Af >60 (>60 ml/min/1.73 sqM) 12/06/16 07:06 Glucose 79 mg/dL (74-99) 12/06/16 07:06 POC Glucose (mg/dL) 165 mg/dL (75-99) H 12/08/16 20:59 POC Glu Country Sales Manager ID Kathy Wyatt 12/08/16 20:59 Lactic Ac Sepsis Rflx Y 12/03/16 07:25 Plasma Lactic Acid Oksar 1.0 mmol/L (0.7-2.0) 12/06/16 07:06 Calcium 8.1 mg/dL (8.4-10.2) L 12/06/16 07:06 Phosphorus 2.9 mg/dL (2.5-4.5) 12/03/16 06:50 Magnesium 1.7 mg/dL (1.6-2.3) 12/03/16 06:50 Total Bilirubin 1.2 mg/dL (0.2-1.3) 12/03/16 06:50 AST 32 U/L (17-59) 12/03/16 06:50 ALT 50 U/L (21-72) 12/03/16 06:50 Alkaline Phosphatase 109 U/L (38-126) 12/03/16 06:50 Total Creatine Kinase 38 U/L (55-170) L 12/07/16 19:14 CK-MB (CK-2) 0.8 ng/mL (0.0-2.4) 12/07/16 19:14 CK-MB (CK-2) Rel Index 2.1 12/07/16 19:14 Troponin I 0.026 ng/mL (0.000-0.034) 12/08/16 05:24 Total Protein 7.3 g/dL (6.3-8.2) 12/03/16 06:50 Albumin 4.3 g/dL (3.5-5.0) 12/03/16 06:50 Complement C4 22.0 mg/dL (10.0-53.0) 12/07/16 15:24 T-Suppressor Cells 157 cell/ul (190-832) L 12/07/16 15:24 Total T Cells 583 cell/ul (704-2138) L 12/07/16 15:24 Natural Killer Cells 64 cell/ul (60-500) 12/07/16 15:24 % CD3 Cells 71 % (55-86) 12/07/16 15:24 % CD4 Alvord 51 % (35-66) 12/07/16 15:24 Absolute CD4 Alvord 432 cell/ul (443-1471) L 12/07/16 15:24 CD4/CD8 Ratio 2.8 (1.0-3.7) 12/07/16 15:24 % CD8 Suppressor 18 % (9-37) 12/07/16 15:24 % CD16/CD56 Cells 8 % (3-24) 12/07/16 15:24 % CD19 Cells 18 % (4-25) 12/07/16 15:24 Total CD19+ B Cells 139 cell/ul (100-524) 12/07/16 15:24 Microbiology 12/03/16 06:50 Blood Blood Culture - Preliminary No Growth after 120 hours Assessment and Plan (1) Ankle pain, left Narrative/Plan: Patient is feeling better today. There is less erythema less tenderness less swelling still has having discomfort with manipulation. Because of the patient has trauma to the left lower extremity he was seen by orthopedics with no surgical plan noted. This developed a significant increase amount of swelling with cellulitis. Antimicrobial therapy daptomycin will be utilized or the extensive cellulitis. Local wound care with Silvadene and elevation continues We'll continue for the next 24-48 hours until there is further improvement. Leukocytosis is improving. Some erythema was noted on the foot today that was slightly worse. With elevation wrap expect to be improved by tomorrow. He is up-to-date with his tetanus. adequate protein supplementation. Multivitamin has been ordered. The leukocytosis appears to be directly related to the significant infection to the left lower extremity. He is starting to have further improvement. Will need to be discharged home the next day or so. At the time the daptomycin can be transitioned to oral antimicrobial therapy with cefadroxil 500 mg every 12 hours for 10 days. Continue local wound care with wrap Current Visit: Yes Status: Acute Code(s): M25.572 - PAIN IN LEFT ANKLE AND JOINTS OF LEFT FOOT SNOMED Code(s): 744685792
[2016-12-09] MEDS: HEPARIN SODIUM,PORCINE 5,000 UNIT/ML 1 ML VIAL SQ SCH ×2 (01:12→08:01)
[2016-12-09] MEDS: HYDROmorphone 1 MG/ML 1 ML SYRINGE IVP PRN ×3 (02:40→09:48)
[2016-12-09] MEDS: SODIUM CHLORIDE 0.9% 1,000 ML IV SCH (06:12)
[2016-12-09 07:24] VITALS: BP 131/90; PULSE 70; RESP 17; TEMP 98.5
[2016-12-09 07:30] LABS: Glucose,Whole Blood 117 mg/dL (75-99)
[2016-12-09] MEDS: PANTOPRAZOLE 40 MG TABLET PO SCH (08:00)
[2016-12-09] MEDS: LOSARTAN-HCTZ 50-12.5 MG 1 EACH TAB PO SCH (08:00)
[2016-12-09] MEDS: METOPROLOL TARTRATE 50 MG TAB PO SCH (08:00)
[2016-12-09] MEDS: metFORMIN 500 MG TAB PO SCH (08:00)
[2016-12-09] MEDS: CLOPIDOGREL 75 MG TAB PO SCH (08:00)
[2016-12-09] MEDS: cloNIDine HCL 0.1 MG TAB PO SCH (08:01)
[2016-12-09] MEDS: hydrALAZINE HCL 25 MG TAB PO SCH (08:01)
[2016-12-09] MEDS: INSULIN LISPRO (humaLOG) 300 UNIT/3 ML VIAL SQ SCH (08:01)
[2016-12-09 08:33] LABS: Basophils # (A) 0.1 k/uL (0-0.2); Basophils % (A) 1 %; CH 27.7; CHCM 33.4; Eosinophils # (A) 0.5 k/uL (0-0.7); Eosinophils % (A) 7 %; HCT 35.7 % (39.0-53.0); HDW 3.14; HGB 11.4 gm/dL (13.0-17.5); Luc # (Auto) 0.18; Luc % (Auto) 2; Lymphocytes # (A) 0.9 k/uL (1.0-4.8); Lymphocytes % (A) 12 %; MCH 26.6 pg (25.0-35.0); MCV 83.2 fL (80.0-100.0); Mean Platelet Volume 6.9; Monocytes # (A) 0.7 k/uL (0-1.0); Monocytes % (A) 9 %; Neutrophils # (A) 5.2 k/uL (1.3-7.7); Neutrophils % (A) 69 %; RBC 4.29 m/uL (4.30-5.90); RDW 13.7 % (11.5-15.5); WBC 7.5 k/uL (3.8-10.6); WBC (Perox) 7.65
[2016-12-09] MEDS: HYDROcodone/APAP 7.5-325MG 1 EACH TAB PO PRN (08:34)
[2016-12-09] MEDS ORDERED: INFLUENZA VACCINE (6 MOS+) 60 MCG/0.5 ML SYRINGE IM ONE (22:00)
--- NOTE | 2016-12-11 13:37 | P.DS ---
Providers Date of admission: 12/03/16 08:16 Expected date of discharge: 12/09/16 Attending physician: Kelly Montesinos Consults: 12/03/16 08:16 Consult Physician Urgent Consulting Provider: Lakhwinder Shaver Consult Reason/Comments: cellulitis Do you want consulting provider notified?: Yes 12/03/16 10:24 Consult Physician Routine Consulting Provider: Cedric Jeffrey Consult Reason/Comments: wound Do you want consulting provider notified?: Yes Primary care physician: Kelly Montesinos Hospital Course: This is a 51-year-old patient of Dr. Montesinos with past medical history for coronary artery disease status post 6 vessel CABG in 2006 with MAE to LAD, saphenous venous graft to the PDA, saphenous venous graft to the obtuse marginal one, radial artery to the obtuse marginal branch 2 and saphenous venous graft to the obtuse marginal 3 followed by heart catheterization with PCI and stent of the saphenous venous graft to the RCA in 2015 at which time he presented with non-ST elevated myocardial infarction. History of diabetes mellitus2 with diabetic polyneuropathy, hyperlipidemia, hypertension, hypertensive cardiovascular disease with left ventricular hypertrophy, asthma, sleep apnea on CPAP, chronic low back pain, chronic kidney disease, DVT in the past. Patient presented to [facility] emergency center with complaints of increased pain and swelling of the left lower extremity after he dropped a log of wood on his leg and foot [place] the [place] he got back to [place] at around midnight went to the recliner slept all night long woke up in the morning with significant erythema and swelling of the left foot on the left leg with lymphangitic streaks orally up to the leg patient ended up coming to the ER for eval you she was found to have a elevated white count 15,000 with elevated lactic acid, patient was started on IV antibiotic in the form of Ancef 2 g IV piggyback every 8 hours, he was admitted to the hospital Silvadene cream will be applied to the left lower extremity and wrapped with a Kerlix and Del wrap. Venous Doppler of the left lower extremity will be obtained. 12/04: Patient has been seen by Dr. Jeffrey with recommendations to add in daptomycin for MRSA coverage. Multivitamin added. Local wound care is in the form of Silvadene dressing. Orthopedics is following up with no surgical intervention at this time. Patient states that he continues to have severe pain in a #10 but he is feeling better and he can move his toes a little bit. Left lower extremity ultrasound was negative for DVT. Blood cultures showing no growth at 24 hours. 12/07: Patient has more erythema today, edema to the foot but ankle edema appears to be better. He states he is able to put some weight on it. He is requesting to go home. Discharge held today and he is agreeable. Await further recommendations from Dr. Jeffrey. Orthopedics is left a prescription for premium equalizer boot and have signed off the case. 12/08: Patient again is asking to be discharged home. He continues to have some redness and swelling in the foot area which is improved from yesterday. Ankle area is red. Patient is agreeable to stay 1 more day. 12/09: Patient has had some improvement of the cellulitis to the left ankle and is anxious to be discharged home. Dr. Jeffrey as recommended cefadroxil 500 mg twice daily for 10 day course. Patient will be discharged home today in stable condition. Discharge diagnoses: 1. Left lower extremity cellulitis involving the leg and part of the foot. 2. History of coronary artery disease status post coronary artery bypass graft for 6 vessel disease with chronically occluded saphenous venous graft to the obtuse marginal branch and status post PCI of the saphenous graft to the RCA. 3. Diabetes mellitus type 2 and diabetic polyneuropathy. 4. Hypertension, hypertensive cardiovascular disease. 5. Hyperlipidemia. 6. Obstructive sleep apnea. 7. Leukocytosis due to cellulitis. 8. Chronic wound to the left forearm with recent partial wound dehiscence. Due to compartment syndrome has resolved. Discharge plan: Return home Impression and plan of care have been directed as dictated by the signing physician. Dipika Mendez nurse practitioner acting as scribe for signing physician. Patient Condition at Discharge: Good Plan - Discharge Summary New Discharge Prescriptions: New Cefadroxil [Duricef] 500 mg PO Q12HR #20 cap Multivitamins, Thera [Multivitamin (formulary)] 1 each PO DAILY@1200 tab SILVER sulfADIAZINE CREAM [Silvadene Cream] 1 applic TOPICAL BID #2 tube Continue cloNIDine HCL [Catapres] 0.1 mg PO BID Furosemide [Lasix] 20 mg PO DAILY PRN PRN Reason: Edema Metoprolol Tartrate [Lopressor] 100 mg PO BID Losartan/Hydrochlorothiazide [Losartan-Hctz 100-25 mg Tab] 1 tab PO DAILY Clopidogrel [Plavix] 75 mg PO DAILY #30 tab Atorvastatin [Lipitor] 80 mg PO HS Insulin Aspart [NovoLOG] 8 - 10 units SQ BID@0800,1200 Insulin Glargine [Lantus] 27 unit SQ HS Insulin Aspart [NovoLOG] 15 units SQ AC-SUPPER Insulin Aspart [NovoLOG] See Protocol SQ AC-TID Nitroglycerin Sl Tabs [Nitrostat] 0.4 mg SUBLINGUAL Q5M PRN PRN Reason: Chest Pain Ergocalciferol [Vitamin D2 (DRISDOL)] 50,000 unit PO Q14D Aspirin 325 mg PO HS HYDROcodone/APAP 7.5-325MG [[place] 7.5-325] 1 - 2 tab PO Q4-6H PRN #40 tab PRN Reason: Pain hydrALAZINE HCL 75 mg PO BID metFORMIN HCL [Glucophage] 1,000 mg PO BID #0 Discharge Medication List Furosemide [Lasix] 20 mg PO DAILY PRN 06/23/13 [History] Losartan/Hydrochlorothiazide [Losartan-Hctz 100-25 mg Tab] 1 tab PO DAILY [History] Metoprolol Tartrate [Lopressor] 100 mg PO BID 06/23/13 [History] cloNIDine HCL [Catapres] 0.1 mg PO BID 06/23/13 [History] Clopidogrel [Plavix] 75 mg PO DAILY #30 tab 06/25/13 [Rx] Atorvastatin [Lipitor] 80 mg PO HS 08/14/14 [History] Insulin Aspart [NovoLOG] 8 - 10 units SQ BID@0800,1200 08/14/14 [History] Insulin Glargine [Lantus] 27 unit SQ HS 08/14/14 [History] Insulin Aspart [NovoLOG] 15 units SQ AC-SUPPER 08/17/14 [History] Insulin Aspart [NovoLOG] See Protocol SQ AC-TID 08/17/14 [History] Nitroglycerin Sl Tabs [Nitrostat] 0.4 mg SUBLINGUAL Q5M PRN 09/07/14 [History] Aspirin 325 mg PO HS 07/02/16 [History] Ergocalciferol [Vitamin D2 (DRISDOL)] 50,000 unit PO Q14D 07/02/16 [History] HYDROcodone/APAP 7.5-325MG [[place] 7.5-325] 1 - 2 tab PO Q4-6H PRN #40 tab [Rx] hydrALAZINE HCL 75 mg PO BID 07/17/16 [History] metFORMIN HCL [Glucophage] 1,000 mg PO BID #0 10/14/16 [Rx] Cefadroxil [Duricef] 500 mg PO Q12HR #20 cap 12/09/16 [Rx] Multivitamins, Thera [Multivitamin (formulary)] 1 each PO DAILY@1200 tab [Rx] SILVER sulfADIAZINE CREAM [Silvadene Cream] 1 applic TOPICAL BID #2 tube [Rx] Follow up Appointment(s)/Referral(s): Kelly Montesinos MD [Primary Care Provider] - 12/16/16 10:00 am Chester Montano MD [STAFF PHYSICIAN] - 01/06/17 10:00 am (Vascular follow up on left leg) Lakhwinder Shaver MD [Medical Doctor] - 12/23/16 (Office needs you to call to schedule appointment. Balance currently due.) Patient Instructions/Handouts: Cellulitis (DC), Type 2 Diabetes in Adults (DC) Activity/Diet/Wound Care/Special Instructions: Cardiac, diabetic diet. Continue to elevate legs at rest and use Silvedene cream, kerlix and DEL wraps changing daily. Discharge Disposition: HOME SELF-CARE
== END 2016-12-09 11:35 | disposition home or self-care (01) | DRG 603 ==
LOC: EC 06:16 → 4MS4W 08:16
PROVIDERS: ADMIT Internal Medicine; ATTEND Internal Medicine
PROC: 3E0234Z Introduction of Serum, Toxoid and Vaccine into Muscle, Percutaneous Approach (ICD-10-PCS; principal; 2016-12-09)
DX: L03.116 Cellulitis of left lower limb (principal); E11.22 Type 2 diabetes mellitus with diabetic chronic kidney disease; I13.10 Hypertensive heart and chronic kidney disease without heart failure, with stage 1 through stage 4 chronic kidney disease, or unspecified chronic kidney disease; I25.810 Atherosclerosis of coronary artery bypass graft(s) without angina pectoris; E11.42 Type 2 diabetes mellitus with diabetic polyneuropathy; I25.10 Atherosclerotic heart disease of native coronary artery without angina pectoris; E78.5 Hyperlipidemia, unspecified; G47.33 Obstructive sleep apnea (adult) (pediatric); Z23 Encounter for immunization; J45.909 Unspecified asthma, uncomplicated; I25.2 Old myocardial infarction; N18.2 Chronic kidney disease, stage 2 (mild); G89.29 Other chronic pain; M54.5 Low back pain; Z79.82 Long term (current) use of aspirin; Z79.02 Long term (current) use of antithrombotics/antiplatelets; Z79.4 Long term (current) use of insulin; Z79.899 Other long term (current) drug therapy; Z95.1 Presence of aortocoronary bypass graft; Z95.5 Presence of coronary angioplasty implant and graft; Z86.718 Personal history of other venous thrombosis and embolism; Z86.14 Personal history of Methicillin resistant Staphylococcus aureus infection; Z98.1 Arthrodesis status; Z88.1 Allergy status to other antibiotic agents; Z91.048 Other nonmedicinal substance allergy status
CPT/HCPCS: 36415; 71020; 80048; 80053; 82550; 82553; 83605; 83735; 84100; 84132; 84484; 85025; 85379; 85610; 85730; 86160; 86162; 86355; 86357; 86359; 86360; 87040; 93005; 94760; 96365; 96375; 99285

== ENCOUNTER 2019-04-23 13:51 | Inpatient (IN) | payer MEDICARE ==
[2019-04-23] MEDS ORDERED: IPRATROPIUM-ALBUTEROL 3 ML NEB INHALATION STA (14:12)
[2019-04-23] MEDS ORDERED: methylPREDNISolone SOD SUCCI 125 MG/2 ML VIAL IV STA (14:12)
[2019-04-23 14:47] LABS: Basophils % (A) 1 %; Eosinophils # (A) 0.3 k/uL (0-0.7); Eosinophils % (A) 4 %; HCT 42.6 % (39.0-53.0); HGB 13.9 gm/dL (13.0-17.5); Lymphocytes # (A) 0.9 k/uL (1.0-4.8); Lymphocytes % (A) 13 %; MCH 27.1 pg (25.0-35.0); MCHC 32.6 g/dL (31.0-37.0); MCV 83.1 fL (80.0-100.0); Mean Platelet Volume 8.6; Monocytes # (A) 0.4 k/uL (0-1.0); Monocytes % (A) 7 %; Neutrophils # (A) 4.8 k/uL (1.3-7.7); Neutrophils % (A) 73 %; Platelet Count 171 k/uL (150-450); RBC 5.13 m/uL (4.30-5.90); RDW 13.8 % (11.5-15.5); WBC 6.7 k/uL (3.8-10.6)
--- NOTE | 2019-04-23 14:48 | ED ---
SOB HPI - General Chief Complaint: Shortness of Breath Stated Complaint: difficulty breathing Time Seen by Provider: 04/23/19 13:55 Source: patient Mode of arrival: ambulatory Limitations: no limitations - History of Present Illness Initial Comments: The patient is a 54-year-old male with past history of coronary artery disease, CABG in 2006, with 4 additional stent placement who presents to emergency room with reported shortness of breath. He states "I feel as if I'm filling up with fluid." Reported history of congestive heart failure. States he takes Lasix when needed. He was recently hospitalized 2 weeks ago. He had a cath at that time which showed that he had 2 additional blockages which they were going to medical manage. States that since he has been home he hasn't been taking his Lasix. He is also noted to be diffusely wheezing. States he has no underlying lung conditions. Does not have a nebulizer and inhalers at home to use. He admits to nonproductive cough. No fevers or chills. Does admit to chest pressure. He sees Dr. Ga in office. He takes [place] and aspirin for which she states he's been compliant and hasn't missed any doses. No ripping or tearing sensation to his back. Denies abdominal pain. No history of DVT or PE. There are no bleeding, precipitating modifying factors - Related Data Home Medications Medication Instructions Recorded Confirmed Ergocalciferol [Vitamin D2 50,000 unit PO Q14D 07/02/16 04/23/19 (DRISDOL)] Multivitamins, Thera [Multivitamin 1 tab PO DAILY 12/13/16 04/23/19 (formulary)] Lisinopril 40 mg PO DAILY 04/12/19 04/23/19 Previous Rx's Medication Instructions Recorded Apixaban [Eliquis] 5 mg PO BID #60 tab 04/14/19 Aspirin 81 mg PO DAILY #30 chewable 04/14/19 Atorvastatin [Lipitor] 80 mg PO HS #30 tab 04/14/19 Furosemide [Lasix] 40 mg PO DAILY PRN #30 tab 04/14/19 Gabapentin [Neurontin] 200 mg PO BID #60 cap 04/14/19 Insulin Aspart [NovoLOG Flexpen] 0 units SQ ACHS 30 Days pen 04/14/19 Insulin Glargine,Hum.rec.anlog 30 unit SQ HS #1 pen 04/14/19 [Basaglar Kwikpen U-100] Isosorbide Mononitrate ER [Imdur] 30 mg PO DAILY #30 tab.er.24h 04/14/19 Metoprolol Tartrate [Lopressor] 100 mg PO BID #60 tab 04/14/19 Potassium Chloride ER [K-Dur 10] 10 meq PO DAILY #30 tab 04/14/19 cloNIDine HCL [Catapres] 0.1 mg PO BID #60 tab 04/14/19 metFORMIN HCL [Glucophage] 1,000 mg PO BID #60 tab 04/14/19 hydrALAZINE HCL [Apresoline] 75 mg PO TID #270 tab 04/25/19 Allergies Allergy/AdvReac Type Severity Reaction Status Date / Time adhesive tape Allergy Severe Rash/Hives Verified 04/23/19 15:38 vancomycin Allergy Mild Rash/Hives Verified 04/23/19 15:38 Review of Systems ROS Statement: Those systems with pertinent positive or pertinent negative responses have been documented in the HPI. ROS Other: All systems not noted in ROS Statement are negative. Past Medical History Past Medical History: Asthma, Coronary Artery Disease (CAD), Chest Pain / Angina, Diabetes Mellitus, Deep Vein Thrombosis (DVT), Hyperlipidemia, H ypertension, Myocardial Infarction (DE), Sleep Apnea/CPAP/BIPAP Additional Past Medical History / Comment(s): Obstructive sleep apnea CPAP, bronchitis, IDDM type II, DVT L leg, cellulitis L leg 2012 cellulitis L Arm 2017, diabetic neuropathy affects feet and hands, chronic kidney disease stage II Last Myocardial Infarction Date:: 06/23/13 History of Any Multi-Drug Resistant Organisms: Acinetobacter (MDRO), MRSA Date of last positivie culture/infection: 08/2014 MDRO Source:: abdomen around navel Past Surgical History: Back Surgery, Coronary Bypass/CABG, Heart Catheterization, Heart Catheterization With Stent, Hernia Repair Additional Past Surgical History / Comment(s): Cardiac caths, PCI with stents (4total), 2006 CABG 6 vessels, spinal fusion L4-L5, fasciotomy left thigh, bilateral inguinal hernia repairs, I&D L forearm with dehisence then compartment syndrome with fasciotomy Left forearm - June 2016 Past Anesthesia/Blood Transfusion Reactions: No Reported Reaction Date of Last Stent Placement:: 07/06/16 Past Psychological History: No Psychological Hx Reported Smoking Status: Never smoker Past Alcohol Use History: None Reported Past Drug Use History: None Reported - Past Family History Brother(s) Additional Family Medical History / Comment(s): Patient has 1 brother and 1 sister with no major medical problems. Mother Family Medical History: Congestive Heart Failure (CHF), Diabetes Mellitus Additional Family Medical History / Comment(s): Mother at the age of 84 from with history of chronic renal disease stage. Father Family Medical History: COPD, Coronary Artery Disease (CAD), Myocardial Infarction (DE) Additional Family Medical History / Comment(s): Father of a DE at the age of 60 yrs with history of COPD. Sister(s) Family Medical History: Rheumatoid Arthritis (RA) Additional Family Medical History / Comment(s): Patient has 1 sister with no major medical problems. General Exam Limitations: no limitations General appearance: alert, in no apparent distress Head exam: Present: atraumatic, normocephalic, normal inspection Eye exam: Present: normal appearance, PERRL, EOMI. Absent: scleral icterus, conjunctival injection, periorbital swelling ENT exam: Present: normal exam, mucous membranes moist Neck exam: Present: normal inspection. Absent: tenderness, meningismus, lymphadenopathy Respiratory exam: Present: wheezes, rales. Absent: respiratory distress, rhonchi, stridor Cardiovascular Exam: Present: regular rate, irregular rhythm, normal heart sounds. Absent: systolic murmur, diastolic murmur, rubs, gallop, clicks GI/Abdominal exam: Present: soft, normal bowel sounds. Absent: distended, tenderness, guarding, rebound, rigid Extremities exam: Present: normal inspection, full ROM, normal capillary refill. Absent: tenderness, pedal edema, joint swelling, calf tenderness Back exam: Present: normal inspection Neurological exam: Present: alert, oriented X3, CN II-XII intact Psychiatric exam: Present: normal affect, normal mood Skin exam: Present: warm, dry, intact, normal color. Absent: rash Course Vital Signs 04/23/19 04/23/19 04/23/19 13:54 14:53 14:59 Temperature 97.6 F Pulse Rate 72 66 65 Respiratory 16 Rate Blood Pressure 121/78 O2 Sat by Pulse 99 Oximetry 04/23/19 04/23/19 04/23/19 15:00 15:40 17:16 Temperature Pulse Rate 75 69 67 Respiratory 18 18 16 Rate Blood Pressure 197/123 195/122 196/125 O2 Sat by Pulse 98 96 97 Oximetry 04/23/19 04/23/19 04/23/19 18:16 19:31 19:33 Temperature Pulse Rate 69 82 75 Respiratory 18 16 16 Rate Blood Pressure 163/91 167/92 O2 Sat by Pulse 98 98 Oximetry 04/23/19 19:41 Temperature Pulse Rate 80 Respiratory 16 Rate Blood Pressure O2 Sat by Pulse Oximetry Medical Decision Making - Medical Decision Making Poni the patient is placed in room 9. A thorough history and physical exam is performed. Patient's diffusely wheezy therefore we did initiate an IV. He was given a DuoNeb breathing treatment and 125 mg of Solu-Medrol. Laboratory studies were conducted. BNP elevated at 5530. Troponin 0.015. Influenza A and B are negative. X-rays demonstrates bilateral pleural effusions. There is also a new patchy right basilar acute infiltrate or atelectasis. I discussed results the patient. He recommended hospitalization for diuresis. Patient was given 40 mg of Lasix in the ED and will be given 40 mg every 8 hours. Also continue to provide the patient with steroids and breathing treatments. Troponins will be trended. I will consult cardiology. I called and discussed case with Dr. Montesinos who accepted admission. Patient is currently awaiting a bed in the observation unit - Lab Data Result diagrams: 04/23/19 14:33 04/25/19 05:31 Lab Results 04/23/19 04/23/19 04/23/19 Range/Units 14:33 14:33 14:33 WBC 6.7 (3.8-10.6) k/uL RBC 5.13 (4.30-5.90) m/uL Hgb 13.9 (13.0-17.5) gm/dL Hct 42.6 (39.0-53.0) % MCV 83.1 (80.0-100.0) fL MCH 27.1 (25.0-35.0) pg MCHC 32.6 (31.0-37.0) g/dL RDW 13.8 (11.5-15.5) % Plt Count 171 (150-450) k/uL Neutrophils % 73 % Lymphocytes % 13 % Monocytes % 7 % Eosinophils % 4 % Basophils % 1 % Neutrophils # 4.8 (1.3-7.7) k/uL Lymphocytes # 0.9 L (1.0-4.8) k/uL Monocytes # 0.4 (0-1.0) k/uL Eosinophils # 0.3 (0-0.7) k/uL Basophils # 0.0 (0-0.2) k/uL PT 11.7 (9.0-12.0) sec INR 1.2 H (<1.2) APTT 25.5 (22.0-30.0) sec Sodium 136 L (137-145) mmol/L Potassium 4.3 (3.5-5.1) mmol/L Chloride 104 (98-107) mmol/L Carbon Dioxide 26 (22-30) mmol/L Anion Gap 6 mmol/L BUN 22 H (9-20) mg/dL Creatinine 0.96 (0.66-1.25) mg/dL Est GFR (CKD-EPI)AfAm >90 (>60 ml/min/1.73 sqM) Est GFR (CKD-EPI)NonAf 89 (>60 ml/min/1.73 sqM) Glucose 291 H (74-99) mg/dL POC Glucose (mg/dL) (75-99) mg/dL POC Glu Medical Officer Psychiatry ID Plasma Lactic Acid Oskar (0.7-2.0) mmol/L Calcium 8.5 (8.4-10.2) mg/dL Total Bilirubin 0.6 (0.2-1.3) mg/dL AST 45 (17-59) U/L ALT 40 (4-49) U/L Alkaline Phosphatase 160 H (38-126) U/L Troponin I (0.000-0.034) ng/mL NT-Pro-B Natriuret Pep pg/mL Total Protein 6.4 (6.3-8.2) g/dL Albumin 3.5 (3.5-5.0) g/dL Influenza Type A RNA (Not Detectd) Influenza Type B (PCR) (Not Detectd) 04/23/19 04/23/19 04/23/19 Range/Units 14:33 14:33 14:33 WBC (3.8-10.6) k/uL RBC (4.30-5.90) m/uL Hgb (13.0-17.5) gm/dL Hct (39.0-53.0) % MCV (80.0-100.0) fL MCH (25.0-35.0) pg MCHC (31.0-37.0) g/dL RDW (11.5-15.5) % Plt Count (150-450) k/uL Neutrophils % % Lymphocytes % % Monocytes % % Eosinophils % % Basophils % % Neutrophils # (1.3-7.7) k/uL Lymphocytes # (1.0-4.8) k/uL Monocytes # (0-1.0) k/uL Eosinophils # (0-0.7) k/uL Basophils # (0-0.2) k/uL PT (9.0-12.0) sec INR (<1.2) APTT (22.0-30.0) sec Sodium (137-145) mmol/L Potassium (3.5-5.1) mmol/L Chloride (98-107) mmol/L Carbon Dioxide (22-30) mmol/L Anion Gap mmol/L BUN (9-20) mg/dL Creatinine (0.66-1.25) mg/dL Est GFR (CKD-EPI)AfAm (>60 ml/min/1.73 sqM) Est GFR (CKD-EPI)NonAf (>60 ml/min/1.73 sqM) Glucose (74-99) mg/dL POC Glucose (mg/dL) (75-99) mg/dL POC Glu Medical Officer Psychiatry ID Plasma Lactic Acid Oskar 1.6 (0.7-2.0) mmol/L Calcium (8.4-10.2) mg/dL Total Bilirubin (0.2-1.3) mg/dL AST (17-59) U/L ALT (4-49) U/L Alkaline Phosphatase (38-126) U/L Troponin I 0.015 (0.000-0.034) ng/mL NT-Pro-B Natriuret Pep 5530 pg/mL Total Protein (6.3-8.2) g/dL Albumin (3.5-5.0) g/dL Influenza Type A RNA (Not Detectd) Influenza Type B (PCR) (Not Detectd) 04/23/19 04/23/19 04/23/19 Range/Units 14:36 20:20 20:25 WBC (3.8-10.6) k/uL RBC (4.30-5.90) m/uL Hgb (13.0-17.5) gm/dL Hct (39.0-53.0) % MCV (80.0-100.0) fL MCH (25.0-35.0) pg MCHC (31.0-37.0) g/dL RDW (11.5-15.5) % Plt Count (150-450) k/uL Neutrophils % % Lymphocytes % % Monocytes % % Eosinophils % % Basophils % % Neutrophils # (1.3-7.7) k/uL Lymphocytes # (1.0-4.8) k/uL Monocytes # (0-1.0) k/uL Eosinophils # (0-0.7) k/uL Basophils # (0-0.2) k/uL PT (9.0-12.0) sec INR (<1.2) APTT (22.0-30.0) sec Sodium (137-145) mmol/L Potassium (3.5-5.1) mmol/L Chloride (98-107) mmol/L Carbon Dioxide (22-30) mmol/L Anion Gap mmol/L BUN (9-20) mg/dL Creatinine (0.66-1.25) mg/dL Est GFR (CKD-EPI)AfAm (>60 ml/min/1.73 sqM) Est GFR (CKD-EPI)NonAf (>60 ml/min/1.73 sqM) Glucose (74-99) mg/dL POC Glucose (mg/dL) 429 H (75-99) mg/dL POC Glu Medical Officer Psychiatry ID Marii Maravilla Plasma Lactic Acid Oskar (0.7-2.0) mmol/L Calcium (8.4-10.2) mg/dL Total Bilirubin (0.2-1.3) mg/dL AST (17-59) U/L ALT (4-49) U/L Alkaline Phosphatase (38-126) U/L Troponin I <0.012 (0.000-0.034) ng/mL NT-Pro-B Natriuret Pep pg/mL Total Protein (6.3-8.2) g/dL Albumin (3.5-5.0) g/dL Influenza Type A RNA Not Detected (Not Detectd) Influenza Type B (PCR) Not Detected (Not Detectd) 04/24/19 04/24/19 04/24/19 Range/Units 02:54 06:31 11:38 WBC (3.8-10.6) k/uL RBC (4.30-5.90) m/uL Hgb (13.0-17.5) gm/dL Hct (39.0-53.0) % MCV (80.0-100.0) fL MCH (25.0-35.0) pg MCHC (31.0-37.0) g/dL RDW (11.5-15.5) % Plt Count (150-450) k/uL Neutrophils % % Lymphocytes % % Monocytes % % Eosinophils % % Basophils % % Neutrophils # (1.3-7.7) k/uL Lymphocytes # (1.0-4.8) k/uL Monocytes # (0-1.0) k/uL Eosinophils # (0-0.7) k/uL Basophils # (0-0.2) k/uL PT (9.0-12.0) sec INR (<1.2) APTT (22.0-30.0) sec Sodium (137-145) mmol/L Potassium (3.5-5.1) mmol/L Chloride (98-107) mmol/L Carbon Dioxide (22-30) mmol/L Anion Gap mmol/L BUN (9-20) mg/dL Creatinine (0.66-1.25) mg/dL Est GFR (CKD-EPI)AfAm (>60 ml/min/1.73 sqM) Est GFR (CKD-EPI)NonAf (>60 ml/min/1.73 sqM) Glucose (74-99) mg/dL POC Glucose (mg/dL) 287 H 369 H (75-99) mg/dL POC Glu Medical Officer Psychiatry Reina Rivero Yolanda Plasma Lactic Acid Oskar (0.7-2.0) mmol/L Calcium (8.4-10.2) mg/dL Total Bilirubin (0.2-1.3) mg/dL AST (17-59) U/L ALT (4-49) U/L Alkaline Phosphatase (38-126) U/L Troponin I <0.012 (0.000-0.034) ng/mL NT-Pro-B Natriuret Pep pg/mL Total Protein (6.3-8.2) g/dL Albumin (3.5-5.0) g/dL Influenza Type A RNA (Not Detectd) Influenza Type B (PCR) (Not Detectd) - EKG Data EKG Comments: EKG demonstrates atrial ablation with a rate of 67. QRS 94. QTC of 422. There are some ST depression in leads 2, 3 and aVF as well as V6. No acute ST segment elevations. Disposition Clinical Impression: Congestive heart failure, Acute exacerbation of chronic obstructive pulmonary disease, Chest pain Disposition: ADMITTED IP TO THIS HOSP Condition: Stable Is patient prescribed a controlled substance at d/c from ED?: No Decision to Admit Reason: Admit from EC Decision Date: 04/23/19 Decision Time: 15:50
[2019-04-23 14:54] LABS: INR 1.2 (<1.2); Partial Thromboplastin Time 25.5 sec (22.0-30.0); Prothrombin Time 11.7 sec (9.0-12.0)
[2019-04-23 14:55] LABS: ALT 40 U/L (4-49); AST 45 U/L (17-59); African American GFR (CKD) >90 (>60 ml/min/1.73 sqM); Albumin 3.5 g/dL (3.5-5.0); Alkaline Phosphatase 160 U/L (38-126); Anion Gap 6 mmol/L; Blood Urea Nitrogen 22 mg/dL (9-20); Calcium 8.5 mg/dL (8.4-10.2); Carbon Dioxide 26 mmol/L (22-30); Chloride 104 mmol/L (98-107); Glucose 291 mg/dL (74-99); Non-African American GFR(CKD) 89 (>60 ml/min/1.73 sqM); Potassium 4.3 mmol/L (3.5-5.1); Sodium 136 mmol/L (137-145); Total Bilirubin 0.6 mg/dL (0.2-1.3); Total Protein 6.4 g/dL (6.3-8.2)
--- NOTE | 2019-04-23 14:58 | XR ---
EXAMINATION TYPE: XR chest 2V DATE OF EXAM: 04/23/2019 COMPARISON: Prior chest x-ray April 12, 2019. HISTORY: History of CABG with shortness of breath. TECHNIQUE: Frontal and lateral views of the chest are obtained. FINDINGS: Post-CABG changes with mediastinal clips and sternal wires is redemonstrated. There is pers istent cardiomegaly. Seen best on lateral view there is new small bilateral pleural effusions and pat gamaliel right basilar opacity. The osseous structures are intact. Overlying EKG leads are redemonstrated. IMPRESSION: Cardiomegaly with new small to tiny bibasilar pleural effusion, correlate for CHF exacer bation. In addition there is new patchy right basilar acute infiltrate and/or atelectasis noted.
[2019-04-23] MEDS ORDERED: NALOXONE 0.4 MG/ML 1 ML VIAL IV PRN (15:51)
[2019-04-23] MEDS ORDERED: FUROSEMIDE 10 MG/ML 4 ML VIAL IV STA (15:51)
[2019-04-23] MEDS ORDERED: cloNIDine HCL 0.1 MG TAB PO STA (16:15)
[2019-04-23] MEDS ORDERED: hydrALAZINE HCL 20 MG/ML 1 ML VIAL IVP STA (17:19)
[2019-04-23] MEDS: IPRATROPIUM-ALBUTEROL 3 ML NEB INHALATION SCH ×2 (19:31→23:55)
[2019-04-23] MEDS: GABAPENTIN 100 MG CAP PO SCH (20:16)
[2019-04-23] MEDS: ATORVASTATIN 80 MG TAB PO SCH (20:17)
[2019-04-23] MEDS: APIXABAN 5 MG TAB PO SCH (20:17)
[2019-04-23] MEDS: METOPROLOL TARTRATE 50 MG TAB PO SCH (20:17)
[2019-04-23 20:22] LABS: Glucose,Whole Blood 429 mg/dL (75-99)
[2019-04-23] MEDS ORDERED: INSULIN ASPART (NovoLOG) 100 UNIT/ML VIAL SQ ONE (20:27)
[2019-04-23] MEDS: POTASSIUM CHLORIDE ER 10 MEQ TAB.ER.PRT PO SCH (20:30)
[2019-04-23] MEDS: INSULIN ASPART (NovoLOG) 100 UNIT/ML VIAL SQ SCH (20:31)
[2019-04-23] MEDS ORDERED: BENZONATATE 100 MG CAP PO STA (20:38)
[2019-04-23] MEDS ORDERED: cloNIDine HCL 0.1 MG TAB PO SCH (21:00)
[2019-04-23] MEDS ORDERED: hydrALAZINE HCL 50 MG TAB PO SCH (21:00)
[2019-04-23] MEDS: INSULIN DETEMIR (LEVEMIR) 100 UNIT/ML SYR SQ SCH (21:08)
[2019-04-23] MEDS: FUROSEMIDE 10 MG/ML 4 ML VIAL IV SCH (23:42)
[2019-04-24] MEDS: FUROSEMIDE 10 MG/ML 4 ML VIAL IV SCH ×3 (00:31→16:56)
[2019-04-24] MEDS: methylPREDNISolone SOD SUCCI 125 MG/2 ML VIAL IV SCH ×2 (00:46→08:24)
[2019-04-24] MEDS: IPRATROPIUM-ALBUTEROL 3 ML NEB INHALATION SCH ×6 (03:07→23:43)
[2019-04-24 06:33] LABS: Glucose,Whole Blood 287 mg/dL (75-99)
[2019-04-24] MEDS ORDERED: BENZONATATE 100 MG CAP PO STA (08:14)
[2019-04-24] MEDS: METOPROLOL TARTRATE 50 MG TAB PO SCH ×2 (08:25→21:06)
[2019-04-24] MEDS: INSULIN ASPART (NovoLOG) 100 UNIT/ML VIAL SQ SCH ×2 (08:25→12:01)
[2019-04-24] MEDS: GABAPENTIN 100 MG CAP PO SCH ×2 (08:26→21:05)
[2019-04-24] MEDS: ISOSORBIDE MONONITRATE ER 30 MG TAB.ER.24H PO SCH (08:26)
[2019-04-24] MEDS: POTASSIUM CHLORIDE ER 10 MEQ TAB.ER.PRT PO SCH (08:26)
[2019-04-24] MEDS: ASPIRIN 81 MG PO SCH (08:26)
[2019-04-24] MEDS: cloNIDine HCL 0.1 MG TAB PO SCH ×2 (08:26→21:05)
[2019-04-24] MEDS: APIXABAN 5 MG TAB PO SCH ×2 (08:26→21:04)
[2019-04-24] MEDS: hydrALAZINE HCL 25 MG TAB PO SCH ×3 (08:26→21:06)
[2019-04-24] MEDS: LISINOPRIL 20 MG TAB PO SCH (08:26)
--- NOTE | 2019-04-24 10:10 | P.CRDCN ---
History of Present Illness History of present illness: HISTORY OF PRESENTING ILLNESS This is a pleasant 54-year-old male past medical history significant for coronary artery disease status post bypass grafting, ischemic cardiomyopathy, hypertension, dyslipidemia, diabetes mellitus, obstructive sleep apnea and paroxysmal atrial fibrillation on long-term anticoagulation. He follows in the office with Dr. Ga. We have been asked to see in consultation for shortness of breath. He was discharged from the hospital April 14 status post cardiac catheterization at that time was also found to be in new onset atrial fibrillation. Cardiac catheterization revealed a patent MAE to LAD, patent SVG to OM, occluded SVG to RCA, patent stent to the ramus, chronically occluded LAD, circumflex and RCA. No changes from previous study. Medical therapy was recommended. He was initiated on long-term anticoagulation with plans for cardioversion May 04. He states since leaving the hospital he has been feeling progressively short of breath. Walking to get his mail or just around his house causes him to have to sit down and rest. He is also experiencing exertional chest pain, dry cough, frequent palpitations and orthopnea. On arrival he was initiated on IV lasix and has started to feel some relief. He has put out over 3000cc in the previous 24 hours. Echocardiogram obtained on previous admission revealed impaired LV systolic function with ejection fraction 45-50%, severe concentric LVH, basal inferior, basal inferior septal and mid inferior LV wall motion hypokinesia, mild to moderate mitral regurgitation and mild tricuspid regurgitation. DIAGNOSTICS EKG reveals atrial fibrillation with a heart rate of 67, ST abnormalities noted in the inferior leads, LVH. Consistent with previous EKG. Chest xray reveals cardiomegaly with new small to tiny bibasilar pleural effusions and a new patchy right basilar infiltrate. Laboratory reviewed, CBC unremarkable, sodium 136, potassium 4.3, creatinine 0.96, cardiac enzymes negative 3, NT proBNP 5530. Current cardiac medications include Eliquis 5 mg twice a day, aspirin 81 mg daily, atorvastatin 80 mg daily, Imdur 30 mg daily, lisinopril 40 mg daily, Lopressor 100 mg twice a day, clonidine 0.1 mg twice a day, hydralazine 50 mg twice a day and Lasix 40 mg daily as needed. REVIEW OF SYSTEMS At the time of my exam: CONSTITUTIONAL: Denies fever or chills. CARDIOVASCULAR: Complains of shortness of breath with exertion, orthopnea and palpitations. Denies chest pain or PND. RESPIRATORY: Denies cough. GASTROINTESTINAL: Denies abdominal pain, diarrhea, constipation, nausea or vomiting. MUSCULOSKELETAL: Denies myalgias. NEUROLOGIC: Denies numbness, tingling or weakness. ENDOCRINE: Denies fatigue, weight change, polydipsia or polyurina. GENITOURINARY: Denies burning, hematuria or urgency with micturation. HEMATOLOGIC: Denies history of anemia or bleeding. PHYSICAL EXAMINATION Blood pressure 176/98 heart rate 88 afebrile and maintaining oxygen saturation on room air. CONSTITUTIONAL: No apparent distress. HEENT: Head is normocephalic. Pupils are equal, round. Sclerae anicteric. Mucous membranes of the mouth are moist. No JVD. No carotid bruit. CHEST EXAMINATION: Bibasilar rales, no wheezes or rhonchi. No chest wall tenderness is noted on palpation or with deep breathing. HEART EXAMINATION: Irregular rate and rhythm. S1, S2 heard. Systolic ejection murmur at the left sternal border, no gallops or rub. ABDOMEN: Soft, nontender. Positive bowel sounds. EXTREMITIES: 2+ peripheral pulses, no lower extremity edema and no calf tenderness. NEUROLOGIC EXAMINATION: Patient is awake, alert and oriented x3. ASSESSMENT Acute on chronic diastolic heart failure Persistent atrial fibrillation on [facility] anti-coagulation History of coronary artery disease s/p bypass grafting Hypertension Dyslipidemia Diabetes mellitus PLAN Continue to diurese with IV lasix. Document accurate intake and output along with daily weights. Follow renal function and electrolytes in the morning. NPO after midnight for possible SYLVAIN cardioversion in the morning with Dr. Yvette manzo Also to further assess the mitral regurgitation. Further recommendations to follow based on clinical course. Thank you kindly for this consultation. Nurse Practitioner note has been reviewed, I agree with a documented findings and plan of care. Patient was seen and examined. Past Medical History Past Medical History: Asthma, Coronary Artery Disease (CAD), Chest Pain / Angina, Diabetes Mellitus, Deep Vein Thrombosis (DVT), Hyperlipidemia, Hyperten harry, Myocardial Infarction ([place]), Sleep Apnea/CPAP/BIPAP Additional Past Medical History / Comment(s): Obstructive sleep apnea CPAP, bronchitis, IDDM type II, DVT L leg, cellulitis L leg 2012 cellulitis L Arm 2017, diabetic neuropathy affects feet and hands, chronic kidney disease stage II Last Myocardial Infarction Date:: 06/23/13 History of Any Multi-Drug Resistant Organisms: Acinetobacter (MDRO), MRSA Date of last positivie culture/infection: 08/2014 MDRO Source:: abdomen around navel Past Surgical History: Back Surgery, Coronary Bypass/CABG, Heart Catheterization, Heart Catheterization With Stent, Hernia Repair Additional Past Surgical History / Comment(s): Cardiac caths, PCI with stents (4total), 2006 CABG 6 vessels, spinal fusion L4-L5, fasciotomy left thigh, bilateral inguinal hernia repairs, I&D L forearm with dehisence then compartment syndrome with fasciotomy Left forearm - June 2016 Past Anesthesia/Blood Transfusion Reactions: No Reported Reaction Date of Last Stent Placement:: 08/28/15 Smoking Status: Never smoker - Past Family History Brother(s) Additional Family Medical History / Comment(s): Patient has 1 brother and 1 sister with no major medical problems. Mother Family Medical History: Congestive Heart Failure (CHF), Diabetes Mellitus Additional Family Medical History / Comment(s): Mother at the age of 84 from with history of chronic renal disease stage. Father Family Medical History: COPD, Coronary Artery Disease (CAD), Myocardial Infarction ([place]) Additional Family Medical History / Comment(s): Father of a [place] at the age of 60 yrs with history of COPD. Sister(s) Family Medical History: Rheumatoid Arthritis (RA) Additional Family Medical History / Comment(s): Patient has 1 sister with no major medical problems. Medications and Allergies Home Medications Medication Instructions Recorded Confirmed Type Ergocalciferol [Vitamin D2 50,000 unit PO Q14D 07/02/16 04/23/19 History (DRISDOL)] Multivitamins, Thera [Multivitamin 1 tab PO DAILY 12/13/16 04/23/19 History (formulary)] Lisinopril 40 mg PO DAILY 04/12/19 04/23/19 History Apixaban [Eliquis] 5 mg PO BID #60 tab 04/14/19 04/23/19 Rx Aspirin 81 mg PO DAILY #30 chewable 04/14/19 04/23/19 Rx Atorvastatin [Lipitor] 80 mg PO HS #30 tab 04/14/19 04/23/19 Rx Furosemide [Lasix] 40 mg PO DAILY PRN #30 tab 02/21/20 03/01/20 Rx Gabapentin [Neurontin] 200 mg PO BID #60 cap 04/14/19 04/23/19 Rx Insulin Aspart [NovoLOG Flexpen] 0 units SQ ACHS 30 Days pen 04/14/19 04/23/19 Rx Insulin Glargine,Hum.rec.anlog 30 unit SQ HS #1 pen 04/14/19 04/23/19 Rx [Basaglar Kwikpen U-100] Isosorbide Mononitrate ER [Imdur] 30 mg PO DAILY #30 tab.er.24h 04/14/19 04/23/19 Rx Metoprolol Tartrate [Lopressor] 100 mg PO BID #60 tab 04/14/19 04/23/19 Rx Potassium Chloride ER [K-Dur 10] 10 meq PO DAILY #30 tab 04/14/19 04/23/19 Rx cloNIDine HCL [Catapres] 0.1 mg PO BID #60 tab 04/14/19 04/23/19 Rx hydrALAZINE HCL [Apresoline] 50 mg PO BID #60 tab 04/14/19 04/23/19 Rx metFORMIN HCL [Glucophage] 1,000 mg PO BID #60 tab 04/14/19 04/23/19 Rx Allergies Allergy/AdvReac Type Severity Reaction Status Date / Time adhesive tape Allergy Severe Rash/Hives Verified 04/23/19 15:38 vancomycin Allergy Mild Rash/Hives Verified 04/23/19 15:38 Physical Exam Vitals: Vital Signs Temp Pulse Pulse Pulse Resp BP BP 04/24/19 07:29 88 04/24/19 07:20 88 04/24/19 07:00 98.2 F 88 18 176/98 04/24/19 04:02 98.6 F 79 18 161/86 04/24/19 03:27 98 16 04/24/19 03:20 78 04/24/19 03:07 78 04/24/19 00:08 78 04/23/19 23:56 78 04/23/19 23:49 98.3 F 91 18 149/81 04/23/19 20:30 97 18 04/23/19 20:20 17 04/23/19 20:00 98.4 F 97 18 190/121 04/23/19 19:41 80 16 04/23/19 19:33 75 16 167/92 04/23/19 19:31 82 16 04/23/19 18:16 69 18 163/91 04/23/19 17:16 67 16 196/125 04/23/19 15:40 69 18 195/122 04/23/19 15:00 75 18 197/123 04/23/19 14:59 65 04/23/19 14:53 66 04/23/19 13:54 97.6 F 72 16 121/78 Pulse Ox 04/24/19 07:29 04/24/19 07:20 04/24/19 07:00 94 L 04/24/19 04:02 92 L 04/24/19 03:27 04/24/19 03:20 04/24/19 03:07 04/24/19 00:08 04/23/19 23:56 04/23/19 23:49 93 L 04/23/19 20:30 04/23/19 20:20 04/23/19 20:00 95 04/23/19 19:41 04/23/19 19:33 98 04/23/19 19:31 04/23/19 18:16 98 04/23/19 17:16 97 04/23/19 15:40 96 04/23/19 15:00 98 04/23/19 14:59 04/23/19 14:53 04/23/19 13:54 99 Intake and Output 04/23/19 04/24/19 04/24/19 22:59 06:59 14:59 Intake Total 800 240 Output Total 1500 1850 Balance -700 -1610 Intake: Oral 800 240 Output: Urine 1500 1850 Other: Voiding Method Toilet Urinal # Voids 1 1 Weight 78.3 kg Results 04/23/19 14:33 04/23/19 14:33 Cardiac Enzymes 04/23/19 04/23/19 04/23/19 Range/Units 14:33 14:33 20:25 AST 45 (17-59) U/L Troponin I 0.015 <0.012 (0.000-0.034) ng/mL 04/24/19 Range/Units 02:54 AST (17-59) U/L Troponin I <0.012 (0.000-0.034) ng/mL Coagulation 04/23/19 Range/Units 14:33 PT 11.7 (9.0-12.0) sec APTT 25.5 (22.0-30.0) sec CBC 04/23/19 Range/Units 14:33 WBC 6.7 (3.8-10.6) k/uL RBC 5.13 (4.30-5.90) m/uL Hgb 13.9 (13.0-17.5) gm/dL Hct 42.6 (39.0-53.0) % Plt Count 171 (150-450) k/uL Comprehensive Metabolic Panel 04/23/19 Range/Units 14:33 Sodium 136 L (137-145) mmol/L Potassium 4.3 (3.5-5.1) mmol/L Chloride 104 (98-107) mmol/L Carbon Dioxide 26 (22-30) mmol/L BUN 22 H (9-20) mg/dL Creatinine 0.96 (0.66-1.25) mg/dL Glucose 291 H (74-99) mg/dL Calcium 8.5 (8.4-10.2) mg/dL AST 45 (17-59) U/L ALT 40 (4-49) U/L Alkaline Phosphatase 160 H (38-126) U/L Total Protein 6.4 (6.3-8.2) g/dL Albumin 3.5 (3.5-5.0) g/dL Current Medications Generic Name Dose Route Start Last Admin Trade Name Freq PRN Reason Stop Dose Admin Albuterol/Ipratropium 3 ml 04/23/19 20:00 04/24/19 07:22 Duoneb 0.5 Mg-3 Mg/3 Ml Soln INHALATION 3 ml RT-Q4H INDERJIT Administration Apixaban 5 mg 04/23/19 21:00 04/23/19 20:17 Eliquis PO 5 mg BID INDERJIT Administration Aspirin 81 mg 04/24/19 09:00 Aspirin PO DAILY INDERJIT Atorvastatin Calcium 80 mg 04/23/19 21:00 04/23/19 20:17 Lipitor PO 80 mg HS INDERJIT Administration Clonidine 0.1 mg 04/24/19 09:00 Catapres PO BID INDERJIT Ergocalciferol 50,000 unit 05/06/19 12:00 Vitamin D2 PO Q14D INDERJIT Furosemide 40 mg 04/23/19 22:00 04/24/19 00:31 Lasix IV Not Given Q8HR INDERJIT Gabapentin 200 mg 04/23/19 21:00 04/23/19 20:16 Neurontin PO 200 mg BID INDERJIT Administration Hydralazine HCl 50 mg 04/23/19 21:00 04/23/19 21:07 Apresoline PO 50 mg BID INDERJIT Administration Insulin Aspart 0 unit 04/23/19 21:00 04/23/19 20:31 Novolog SQ 17 unit ACHS INDERJIT Administration Protocol Insulin Detemir 30 unit 04/23/19 21:00 04/23/19 21:08 Levemir SQ 30 unit HS [facility] Administration Isosorbide Mononitrate 30 mg 04/24/19 09:00 Imdur PO DAILY [facility] Lisinopril 40 mg 04/24/19 09:00 Zestril PO DAILY [facility] Methylprednisolone Sodium Succinate 40 mg 04/24/19 00:00 04/24/19 00:46 Solu-Medrol IV 40 mg Q8HR INDERJIT Administration Metoprolol Tartrate 100 mg 04/23/19 21:00 04/23/19 20:17 Lopressor PO 100 mg BID [facility] Administration Naloxone HCl 0.2 mg 04/23/19 15:51 Narcan IV Q2M PRN Opioid Reversal Potassium Chloride 10 meq 04/23/19 16:00 04/23/19 20:30 K-Dur 10 PO 10 meq DAILY INDERJIT Administration Intake and Output 04/23/19 04/24/19 04/24/19 22:59 06:59 14:59 Intake Total 800 240 Output Total 1500 1850 Balance -700 -1610 Intake: Oral 800 240 Output: Urine 1500 1850 Other: Voiding Method Toilet Urinal # Voids 1 1 Weight 78.3 kg 04/23/19 14:33 04/23/19 14:33
[2019-04-24] MEDS ORDERED: BENZONATATE 100 MG CAP PO PRN (10:32)
[2019-04-24 11:17] VITALS: BMI 27.0
[2019-04-24 11:40] LABS: Glucose,Whole Blood 369 mg/dL (75-99)
--- NOTE | 2019-04-24 11:50 | P.CNPUL ---
History of Present Illness Consult date: 04/24/19 Reason for consult: dyspnea, cough Chief complaint: Dyspnea, cough History of present illness: 54-year-old white male patient with past medical history of ischemic cardiomyopathy, status post AICD placement, coronary arteriosclerosis, hypertension, hyperlipidemia, carotid artery stenosis right greater than left, with the ejection fraction of 25% which recently improved to 45%, recent onset of A. fib, previous history of pulmonary embolism on Eliquis, former smoker, severe COPD with baseline FEV1 of 1.21 L or 37% of predicted, obstructive sleep apnea on CPAP, patient had been seen in the pulmonary office before by Dr. Yates. Patient has chronic exertional dyspnea and desaturation and he had been on oxygen in the past. Patient was recently hospitalized for chest pain and shortness of breath with elevated troponins with the possibility of acute non-ST elevated myocardial infarction. Patient also had a new onset atrial fibrillation during that admission. He underwent heart catheterization on 04/13/[address] Ga and was found to have severe triple-vessel coronary artery disease, patent ramus intermedius stent, patent SVG to OM patent MAE to LAD and chronically occluded SVG to the RCA. The recommendation was made for medical management and possible cardioversion. Patient was discharged home on O2 2019. On 04/23/2019 patient came into the emergency department with complaints of difficulty breathing, dry persistent cough with no phlegm production. He felt that she was retaining fluid, patient was diffusely wheezing. His cough was nonproductive, denied any fever or chills, and patient had been having some chest pressure. Chest x-ray showed cardiomegaly with new small to tiny bibasilar pleural effusion, and new patchy right basilar acute infiltrate or atelectasis. EKG showed atrial fibrillation with T-wave inversion in the inferior leads. Labs showed white blood cell count of 6.7, hemoglobin of 13.9, electrolytes were unremarkable, BUN was 22 creatinine 0.96, troponins were negative at 0.015, 0.012, 0.012, proBNP was elevated at 5530, influenza screen was negative. Patient has been afebrile. Hemodynamically stable, room air pulse ox is 99% on today's examination. He has been started on IV diuretics to 40 mg every 8 hours, he was given a dose of IV Solu-Medrol in the emergency department and started on breathing treatments. Review of Systems All systems: negative Constitutional: Denies chills, Denies fever Eyes: denies blurred vision, denies pain Ears, nose, mouth and throat: Denies headache, Denies sore throat Cardiovascular: Reports decreased exercise tolerance, Reports dyspnea on exertion, Reports leg edema, Reports shortness of breath, Denies chest pain Respiratory: Reports cough, Reports dyspnea Gastrointestinal: Denies abdominal pain, Denies diarrhea, Denies nausea, Denies vomiting Musculoskeletal: Denies myalgias Integumentary: Denies pruritus, Denies rash Neurological: Denies numbness, Denies weakness Psychiatric: Denies anxiety, Denies depression Endocrine: Denies fatigue, Denies weight change Past Medical History Past Medical History: Asthma, Coronary Artery Disease (CAD), Chest Pain / Angina, Diabetes Mellitus, Deep Vein Thrombosis (DVT), Hyperlipidemia, Hypertension, Myocardial Infarction ([place]), Sleep Apnea/CPAP/BIPAP Additional Past Medical History / Comment(s): Obstructive sleep apnea CPAP, bronchitis, IDDM type II, DVT L leg, cellulitis L leg 2012 cellulitis L Arm 2017, diabetic neuropathy affects feet and hands, chronic kidney disease stage II Last Myocardial Infarction Date:: 06/23/13 History of Any Multi-Drug Resistant Organisms: Acinetobacter (MDRO), MRSA Date of last positivie culture/infection: 08/2014 MDRO Source:: abdomen around navel Past Surgical History: Back Surgery, Coronary Bypass/CABG, Heart Cathete rization, Heart Catheterization With Stent, Hernia Repair Additional Past Surgical History / Comment(s): Cardiac caths, PCI with stents (4total), 2006 CABG 6 vessels, spinal fusion L4-L5, fasciotomy left thigh, bilateral inguinal hernia repairs, I&D L forearm with dehisence then compartment syndrome with fasciotomy Left forearm - June 2016 Past Anesthesia/Blood Transfusion Reactions: No Reported Reaction Date of Last Stent Placement:: 08/28/15 Smoking Status: Never smoker - Past Family History Brother(s) Additional Family Medical History / Comment(s): Patient has 1 brother and 1 sister with no major medical problems. Mother Family Medical History: Congestive Heart Failure (CHF), Diabetes Mellitus Additional Family Medical History / Comment(s): Mother at the age of 84 from with history of chronic renal disease stage. Father Family Medical History: COPD, Coronary Artery Disease (CAD), Myocardial Infarction ([place]) Additional Family Medical History / Comment(s): Father of a [place] at the age of 60 yrs with history of COPD. Sister(s) Family Medical History: Rheumatoid Arthritis (RA) Additional Family Medical History / Comment(s): Patient has 1 sister with no major medical problems. Medications and Allergies Home Medications Medication Instructions Recorded Confirmed Type Ergocalciferol [Vitamin D2 50,000 unit PO Q14D 07/02/16 04/23/19 History (DRISDOL)] Multivitamins, Thera [Multivitamin 1 tab PO DAILY 12/13/16 04/23/19 History (formulary)] Lisinopril 40 mg PO DAILY 04/12/19 04/23/19 History Apixaban [Eliquis] 5 mg PO BID #60 tab 04/14/19 04/23/19 Rx Aspirin 81 mg PO DAILY #30 chewable 04/14/19 04/23/19 Rx Atorvastatin [Lipitor] 80 mg PO HS #30 tab 04/14/19 04/23/19 Rx Furosemide [Lasix] 40 mg PO DAILY PRN #30 tab 04/14/19 04/23/19 Rx Gabapentin [Neurontin] 200 mg PO BID #60 cap 04/14/19 04/23/19 Rx Insulin Aspart [NovoLOG Flexpen] 0 units SQ ACHS 30 Days pen 04/14/19 04/23/19 Rx Insulin Glargine,Hum.rec.anlog 30 unit SQ HS #1 pen 04/14/19 04/23/19 Rx [Basaglar Kwikpen U-100] Isosorbide Mononitrate ER [Imdur] 30 mg PO DAILY #30 tab.er.24h 04/14/19 Rx Metoprolol Tartrate [Lopressor] 100 mg PO BID #60 tab 04/14/19 04/23/19 Rx Potassium Chloride ER [K-Dur 10] 10 meq PO DAILY #30 tab 04/14/19 04/23/19 Rx cloNIDine HCL [Catapres] 0.1 mg PO BID #60 tab 04/14/19 04/23/19 Rx hydrALAZINE HCL [Apresoline] 50 mg PO BID #60 tab 04/14/19 04/23/19 Rx metFORMIN HCL [Glucophage] 1,000 mg PO BID #60 tab 04/14/19 04/23/19 Rx Allergies Allergy/AdvReac Type Severity Reaction Status Date / Time adhesive tape Allergy Severe Rash/Hives Verified 04/23/19 15:38 vancomycin Allergy Mild Rash/Hives Verified 04/23/19 15:38 Physical Exam Vitals: Vital Signs Temp Pulse Pulse Pulse Resp BP BP 04/24/19 11:14 97.6 F 76 18 146/80 04/24/19 11:13 84 04/24/19 11:04 80 04/24/19 08:00 98 88 18 04/24/19 07:29 88 04/24/19 07:20 88 04/24/19 07:00 98.2 F 88 18 176/98 04/24/19 04:02 98.6 F 79 18 161/86 04/24/19 03:27 98 16 04/24/19 03:20 78 04/24/19 03:07 78 04/24/19 00:08 78 04/23/19 23:56 78 04/23/19 23:49 98.3 F 91 18 149/81 04/23/19 20:30 97 18 04/23/19 20:20 17 04/23/19 20:00 98.4 F 97 18 190/121 04/23/19 19:41 80 16 04/23/19 19:33 75 16 167/92 04/23/19 19:31 82 16 04/23/19 18:16 69 18 163/91 04/23/19 17:16 67 16 196/125 04/23/19 15:40 69 18 195/122 04/23/19 15:00 75 18 197/123 04/23/19 14:59 65 04/23/19 14:53 66 04/23/19 13:54 97.6 F 72 16 121/78 Pulse Ox 04/24/19 11:14 99 04/24/19 11:13 04/24/19 11:04 04/24/19 08:00 04/24/19 07:29 04/24/19 07:20 04/24/19 07:00 94 L 04/24/19 04:02 92 L 04/24/19 03:27 04/24/19 03:20 04/24/19 03:07 04/24/19 00:08 04/23/19 23:56 03/01/20 23:49 93 L 04/23/19 20:30 04/23/19 20:20 04/23/19 20:00 95 04/23/19 19:41 04/23/19 19:33 98 04/23/19 19:31 04/23/19 18:16 98 04/23/19 17:16 97 04/23/19 15:40 96 04/23/19 15:00 98 04/23/19 14:59 04/23/19 14:53 04/23/19 13:54 99 Intake and Output 04/23/19 04/24/19 04/24/19 22:59 06:59 14:59 Intake Total 800 240 600 Output Total 1500 1850 1375 Balance -700 -6819 -175 Intake: Oral 800 240 600 Output: Urine 1500 1850 1375 Other: Voiding Method Toilet Toilet Urinal Urinal # Voids 1 1 Weight 78.3 kg 78.3 kg GENERAL EXAM: Alert, very pleasant, 54-year-old white male, on room air with a pulse ox of 99% comfortable in no apparent distress. HEAD: Normocephalic/atraumatic. EYES: Normal reaction of pupils, equal size. Conjunctiva pink, sclera white. NOSE: Clear with pink turbinates. THROAT: No erythema or exudates. NECK: No masses, no JVD, no thyroid enlargement, no adenopathy. CHEST: No chest wall deformity. Symmetrical expansion. LUNGS: Equal air entry with diffuse wheezes and prolongation of expiratory phase of breathing CVS: Irregular rate and rhythm, normal S1 and S2, no gallops, no murmurs, no rubs ABDOMEN: Soft, nontender. No hepatosplenomegaly, normal bowel sounds, no guarding or rigidity. EXTREMITIES: No clubbing, no edema, no cyanosis, 2+ pulses and upper and lower extremities. MUSCULOSKELETAL: Muscle strength and tone normal. SPINE: No scoliosis or deformity SKIN: No rashes CENTRAL NERVOUS SYSTEM: Alert and oriented -3. No focal deficits, tone is normal in all 4 extremities. PSYCHIATRIC: Alert and oriented -3. Appropriate affect. Intact judgment and insight. Results - Laboratory Findings CBC and BMP: 04/23/19 14:33 04/23/19 14:33 PT/INR, D-dimer PT 11.7 sec (9.0-12.0) 04/23/19 14:33 INR 1.2 (<1.2) H 04/23/19 14:33 Abnormal lab findings: Abnormal Labs 04/23/19 04/23/19 04/23/19 14:33 14:33 14:33 Lymphocytes # 0.9 L INR 1.2 H Sodium 136 L BUN 22 H Glucose 291 H POC Glucose (mg/dL) Alkaline Phosphatase 160 H 04/23/19 04/24/19 20:20 06:31 Lymphocytes # INR Sodium BUN Glucose POC Glucose (mg/dL) 429 H 287 H Alkaline Phosphatase - Diagnostic Findings Chest x-ray: report reviewed, image reviewed Assessment and Plan Plan: Assessment: #1. Dyspnea, multifactorial, related to acute exacerbation of systolic CHF and acute exacerbation of chronic obstructive pulmonary disease #2. Recent non-ST elevated myocardial infarction status post heart catheterization on 04/13/2019, revealed chronic occlusion of the saphenous vein graft to the RCA, patent saphenous vein graft to the OM, patent MAE to LAD, and patent ramus intermedius stent. Medical treatment was recommended. Discharged home on 04/14/2019 #3. Recent onset of atrial fibrillation, patient is on Eliquis. Patient remains in A. fib this admission, is planned for cardioversion #4. Severe COPD, with baseline FEV1 of 1.21 L or 37% of predicted, consistent with stage III COPD #5. Former smoker #6. History of pulmonary embolism/DVT #7. Diabetes mellitus type 2 and diabetic polyneuropathy, with history of hyperglycemia and medical noncompliance #8. Hypertension #9. Hyperlipidemia #10. Obstructive sleep apnea on CPAP therapy #11. Medical noncompliance Plan: Continue current medical treatment, continue IV diuretics, chest x-ray has been reviewed with Dr. Foote, and the findings are more consistent with CHF exacerbation and fluid overload. Continue oral prednisone, Pulmicort, Perforom ist, Tessalon Perles, no clear evidence of infection. We'll continue to follow and make further recommendations I performed a history & physical examination of the patient and discussed their management with my nurse practitioner, Natali Veras. I reviewed the nurse practitioner's note and agree with the documented findings and plan of care. Lung sounds are positive for diffuse wheezes throughout the lung alvares. The findings and the impression was discussed with the patient. I attest to the documentation by the nurse practitioner. Time with Patient: Greater than 30
--- NOTE | 2019-04-24 12:33 | P.HPIM ---
History of Present Illness H&P Date: 04/24/19 This is a 54-year-old male patient of Dr. Montesinos and Dr. Ga with past medical history of coronary artery disease status post 6 vessel CABG 2006 with MAE to LAD, saphenous venous graft to the PDA, saphenous venous graft to the obtuse marginal one, radial artery to the obtuse marginal branch 2 and saphenous venous graft to the obtuse marginal 3 followed by heart catheterization with PCI and stent of the saphenous venous graft to the RCA in 2015 at which time he presented with non-ST elevated myocardial infarction. History of hypertension hypertensive cardiovascular disease with left ventricular hypertrophy, hyperlipidemia, diabetes mellitus type 2 with diabetic polyneuropathy, hyperlipidemia, asthma, obstructive sleep apnea on CPAP, chronic low back pain, chronic kidney disease stage II, DVT in the past. Patient had recent hospitalization April 13 to the and treated for chest pain, shortness of breath and elevated troponins with possible non-ST elevated myocardial infarction status post heart catheterization with Dr. Ga that found severe triple-vessel coronary artery disease. Patent ramus intermedius stent. Patent saphenous vein graft to the obtuse marginal branch. Patent MAE to LAD. Chronically occluded saphenous vein graft to the right coronary artery. Recommendations for medical management and consider cardioversion. Echocardiogram on that admission revealed EF 45-50% with severe concentric left ventricular hypertrophy, mild to moderate mitral regurgitation, mild tricuspid regurgitation. Patient also presented with new onset of atrial fibrillation, started on anticoagulation with eliquis and was discharged home in stable condition. On that admission, patient expressed that he had not been taking many of his medications due to lack of insurance or money to pay for his prescriptions. manager rental assisted with 1 month supply of many of his medications. The patient complains of significant shortness of breath and a little bit of pressure in his chest. Patient complains of a cough that Maksim. It just does not seem to go away. Patient apparently has not been taking his Lasix since the time of discharge. He is now stating he does not have nebulizer inhalers at home. He was scheduled as an outpatient on May 04 for SYLVAIN and ca rdioversion. Patient presented to [facility] emergency center. EKG showed atrial fibrillation at rate of [address]-T wave changes, mild ST elevation noted in the inferior leads, LVH. Chest x-ray reveals cardiomegaly with new small tiny bibasilar pleural effusions and a new patchy right basilar infiltrate. Blood pressure 130/70 with a heart rate in the 60s, 96% on room air. CBC unremarkable, sodium 136, potassium 4.3, creatinine 0.96, troponins negative on 3 draws. ProBNP 5530. Patient was afebrile, heart rate 72, blood pressure 121/78, pulse ox 99% on room air. Patient received Solu-Medrol, IV hydralazine, IV Lasix, oral clonidine and DuoNeb treatment in the emergency center and then moved to the observation unit. Patient has been seen by cardiology and pulmonary medicine. Patient is scheduled for SYLVAIN and cardioversion tomorrow. Patient has no wheezing at the time of evaluation will be transitioned to oral prednisone. Review of Systems Constitutional: Denies anorexia, Denies chronic headaches, Denies fatigue, Denie s fever, Denies lethargy, Denies malaise, Denies poor appetite, Denies weakness, Denies weight loss Eyes: denies blurred vision, denies pain Ears, nose, mouth and throat: Denies dysphagia, Denies nasal congestion, Denies nasal discharge, Denies vertigo Cardiovascular: Reports chest pain, Reports dyspnea on exertion, Reports shortness of breath Respiratory: Reports cough, Reports dyspnea, Reports wheezing, Denies excessive sputum, Denies hemoptysis, Denies home oxygen, Denies respiratory infections, Denies sleep apnea Gastrointestinal: Denies abdominal pain, Denies diarrhea, Denies loss of appetite, Denies nausea, Denies vomiting Genitourinary: Denies dysuria, Denies urinary retention Musculoskeletal: Denies frequent falls, Denies gait dysfunction, Denies muscle weakness, Denies myalgias Integumentary: Denies pruritus, Denies rash Neurological: Denies change in mentation, Denies change in speech, Denies numbness, Denies weakness Psychiatric: Denies anxiety, Denies depression Endocrine: Denies fatigue, Denies weight change Past Medical History Past Medical History: Asthma, Coronary Artery Disease (CAD), Chest Pain / Angina, Diabetes Mellitus, Deep Vein Thrombosis (DVT), Hyperlipidemia, Hypertension, Myocardial Infarction (DC), Sleep Apnea/CPAP/BIPAP Additional Past Medical History / Comment(s): Obstructive sleep apnea CPAP, bronchitis, IDDM type II, DVT L leg, cellulitis L leg 2013 cellulitis L Arm 2018, diabetic neuropathy affects feet and hands, chronic kidney disease stage II Last Myocardial Infarction Date:: 06/23/13 History of Any Multi-Drug Resistant Organisms: Acinetobacter (MDRO), MRSA Date of last positivie culture/infection: 08/2014 MDRO Source:: abdomen around navel Past Surgical History: Back Surgery, Coronary Bypass/CABG, Heart Catheterization, Heart Catheterization With Stent, Hernia Repair Additional Past Surgical History / Comment(s): Cardiac caths, PCI with stents (4total), 2006 CABG 6 vessels, spinal fusion L4-L5, fasciotomy left thigh, bilateral inguinal hernia repairs, I&D L forearm with dehisence then compartment syndrome with fasciotomy Left forearm - June 2016 Past Anesthesia/Blood Transfusion Reactions: No Reported Reaction Date of Last Stent Placement:: 08/28/15 Smoking Status: Never smoker Additional Past Alcohol Use History / Comment(s): Pt states he is a lifelong nonsmoker. He denies any medical marijuana, marijuana, street drug use. He is and lives with a roommate. He is on disability due to his diabetes and coronary artery disease. He has one son with no major medical problems. - Past Family History Brother(s) Additional Family Medical History / Comment(s): Patient has 1 brother and 1 sister with no major medical problems. Mother Family Medical History: Congestive Heart Failure (CHF), Diabetes Mellitus Additional Family Medical History / Comment(s): Mother at the age of 84 from with history of chronic renal disease stage. Father Family Medical History: COPD, Coronary Artery Disease (CAD), Myocardial Infarction (DC) Additional Family Medical History / Comment(s): Father of a DC at the age of 60 yrs with history of COPD. Sister(s) Family Medical History: Rheumatoid Arthritis (RA) Additional Family Medical History / Comment(s): Patient has 1 sister with no major medical problems. Medications and Allergies Home Medications Medication Instructions Recorded Confirmed Type Ergocalciferol [Vitamin D2 50,000 unit PO Q14D 07/02/16 04/23/19 History (DRISDOL)] Multivitamins, Thera [Multivitamin 1 tab PO DAILY 12/13/16 04/23/19 History (formulary)] Lisinopril 40 mg PO DAILY 04/12/19 04/23/19 History Apixaban [Eliquis] 5 mg PO BID #60 tab 04/14/19 04/23/19 Rx Aspirin 81 mg PO DAILY #30 chewable 04/14/19 04/23/19 Rx Atorvastatin [Lipitor] 80 mg PO HS #30 tab 04/14/19 04/23/19 Rx Furosemide [Lasix] 40 mg PO DAILY PRN #30 tab 04/14/19 04/23/19 Rx Gabapentin [Neurontin] 200 mg PO BID #60 cap 04/14/19 04/23/19 Rx Insulin Aspart [NovoLOG Flexpen] 0 units SQ ACHS 30 Days pen 04/14/19 04/23/19 Rx Insulin Glargine,Hum.rec.anlog 30 unit SQ HS #1 pen 04/14/19 04/23/19 Rx [Basaglar Kwikpen U-100] Isosorbide Mononitrate ER [Imdur] 30 mg PO DAILY #30 tab.er.24h 04/14/19 04/23/19 Rx Metoprolol Tartrate [Lopressor] 100 mg PO BID #60 tab 04/14/19 04/23/19 Rx Potassium Chloride ER [K-Dur 10] 10 meq PO DAILY #30 tab 04/14/19 04/23/19 Rx cloNIDine HCL [Catapres] 0.1 mg PO BID #60 tab 04/14/19 04/23/19 Rx hydrALAZINE HCL [Apresoline] 50 mg PO BID #60 tab 04/14/19 04/23/19 Rx metFORMIN HCL [Glucophage] 1,000 mg PO BID #60 tab 04/14/19 04/23/19 Rx Allergies Allergy/AdvReac Type Severity Reaction Status Date / Time adhesive tape Allergy Severe Rash/Hives Verified 04/23/19 15:38 vancomycin Allergy Mild Rash/Hives Verified 04/23/19 15:38 Physical Exam Vitals: Vital Signs Temp Pulse Pulse Pulse Resp BP BP 04/24/19 08:00 98 88 18 04/24/19 07:29 88 04/24/19 07:20 88 04/24/19 07:00 98.2 F 88 18 176/98 04/24/19 04:02 98.6 F 79 18 161/86 04/24/19 03:27 98 16 04/24/19 03:20 78 04/24/19 03:07 78 04/24/19 00:08 78 04/23/19 23:56 78 04/23/19 23:49 98.3 F 91 18 149/81 04/23/19 20:30 97 18 04/23/19 20:20 17 04/23/19 20:00 98.4 F 97 18 190/121 04/23/19 19:41 80 16 04/23/19 19:33 75 16 167/92 04/23/19 19:31 82 16 04/23/19 18:16 69 18 163/91 04/23/19 17:16 67 16 196/125 04/23/19 15:40 69 18 195/122 04/23/19 15:00 75 18 197/123 04/23/19 14:59 65 04/23/19 14:53 66 04/23/19 13:54 97.6 F 72 16 121/78 Pulse Ox 04/24/19 08:00 04/24/19 07:29 04/24/19 07:20 04/24/19 07:00 94 L 04/24/19 04:02 92 L 04/24/19 03:27 04/24/19 03:20 04/24/19 03:07 04/24/19 00:08 04/23/19 23:56 04/23/19 23:49 93 L 04/23/19 20:30 04/23/19 20:20 04/23/19 20:00 95 04/23/19 19:41 04/23/19 19:33 98 04/23/19 19:31 04/23/19 18:16 98 04/23/19 17:16 97 04/23/19 15:40 96 04/23/19 15:00 98 04/23/19 14:59 04/23/19 14:53 04/23/19 13:54 99 Intake and Output 04/23/19 04/24/19 04/24/19 22:59 06:59 14:59 Intake Total 800 240 600 Output Total 1500 1850 Balance -700 -1610 600 Intake: Oral 800 240 600 Output: Urine 1500 1850 Other: Voiding Method Toilet Toilet Urinal Urinal # Voids 1 1 Weight 78.3 kg Gen: This is a 54-year-old male. Patient is resting in bed and appears to be comfortable at the time of evaluation.. HEENT: Head is atraumatic, normocephalic. Pupils equal, round. Sclerae is anicteric. NECK: Supple. No JVD. No lymphadenopathy. No thyromegaly. LUNGS: Diminished but otherwise clear to auscultation. No wheezes. No intercostal retractions. HEART: Irregularly irregular. Systolic ejection murmur. ABDOMEN: Soft. Bowel sounds are present. No masses. No tenderness. EXTREMITIES: Trace bilateral lower extremity edema. Dorsalis pedis +2 bilaterally. NEUROLOGICAL: Patient is awake, alert and oriented x3. Cranial nerves 2 through 12 are grossly intact. Results CBC & Chem 7: 04/23/19 14:33 04/23/19 14:33 Labs: Abnormal Lab Results - Last 24 Hours (Table) 04/23/19 04/23/19 04/23/19 Range/Units 14:33 14:33 14:33 Lymphocytes # 0.9 L (1.0-4.8) k/uL INR 1.2 H (<1.2) Sodium 136 L (137-145) mmol/L BUN 22 H (9-20) mg/dL Glucose 291 H (74-99) mg/dL POC Glucose (mg/dL) (75-99) mg/dL Alkaline Phosphatase 160 H (38-126) U/L 04/23/19 04/24/19 Range/Units 20:20 06:31 Lymphocytes # (1.0-4.8) k/uL INR (<1.2) Sodium (137-145) mmol/L BUN (9-20) mg/dL Glucose (74-99) mg/dL POC Glucose (mg/dL) 429 H 287 H (75-99) mg/dL Alkaline Phosphatase (38-126) U/L Thrombosis Risk Factor Assmnt - Choose All That Apply Each Factor Represents 1 point: Age 41-60 years, History of prior major surgery (<1month), Swollen legs (current) Other Risk Factors: Yes Each Risk Factor Represents 3 Points: History of DVT/PE Other congenital or acquired thrombophilia - If yes, enter type in comment: No Thrombosis Risk Factor Assessment Total Risk Factor Score: 6 Thrombosis Risk Factor Assessment Level: High Risk Assessment and Plan Plan: 1. Chest pain, shortness of breath, secondary to acute exacerbation of COPD and acute systolic heart failure. Continue Lasix 40 mg every 8 hours IV push, Duo Neb treatments every 4 hours as needed, Solu-Medrol transitioned to oral prednisone, Mirna Avila 2. Recent non-ST elevated myocardial infarction status post heart catheterization with recommendations for medical management. Continue aspirin 81 mg daily, Lipitor 80 mg at bedtime, Lopressor 100 mg twice daily. 3. Persistent atrial fibrillation. Continue eliquis 5 mg twice daily, Lopressor 100 mg twice daily. SYLVAIN and cardioversion tomorrow with Dr. Ga. 3. History of coronary artery disease status post coronary artery bypass graft for 6 vessel disease with chronically occluded saphenous venous graft to the obtuse marginal branch and status post PCI of the saphenous graft to the RCA. Continue aspirin 81mg daily, Lipitor, Lopressor 100 mg twice daily, Imdur 30 mg daily. nitroglycerin as needed. 4. Diabetes mellitus type 2 and diabetic polyneuropathy, uncontrolled with hype rglycemia secondary to noncompliance. Continue Lantus 30 units at bedtime, Humalog scale before meals and at bedtime. Hold metformin. 5. Hypertension, hypertensive cardiovascular disease. Continue hydralazine 75 mg orally 3 times daily, lisinopril 40 mg daily, Lopressor. 6. Hyperlipidemia. Continue Lipitor. 7. Severe COPD with FEV1 37%, stage III COPD. 8. Obstructive sleep apnea. Continue CPAP as per home settings. 9. History of pulmonary embolism and DVT, stable. 10. DVT prophylaxis. Continue eliquis. 10. GI Prophylaxis. Continue pepcid. Full code. Patient placed as an observation status. Discharge plan: Return home The above impression and plan of care have been discussed and directed by signing physician. Megha Miranda nurse practitioner acting as scribe for signing physician.
[2019-04-24 16:38] LABS: Glucose,Whole Blood 446 mg/dL (75-99)
[2019-04-24] MEDS ORDERED: INSULIN REGULAR BOLUS (FROM DRIP BAG) IV ONE ×5 (17:12→20:37)
[2019-04-24] MEDS ORDERED: INSULIN REGULAR 100 UNIT in SODIUM CHLORIDE 0.9% 100 ML IV SCH ×2 (17:30→20:00)
[2019-04-24] MEDS ORDERED: INSULIN ASPART (NovoLOG) 100 UNIT/ML VIAL SQ SCH ×2 (17:30)
[2019-04-24 18:55] LABS: Glucose,Whole Blood 522 mg/dL (75-99)
[2019-04-24 20:38] LABS: Glucose,Whole Blood 422 mg/dL (75-99)
[2019-04-24] MEDS: ATORVASTATIN 80 MG TAB PO SCH (21:04)
[2019-04-24] MEDS: INSULIN DETEMIR (LEVEMIR) 100 UNIT/ML SYR SQ SCH (21:04)
[2019-04-24 21:22] LABS: Glucose,Whole Blood 357 mg/dL (75-99)
[2019-04-24 21:50] LABS: Glucose,Whole Blood 269 mg/dL (75-99)
[2019-04-24 22:24] LABS: Glucose,Whole Blood 172 mg/dL (75-99)
[2019-04-25 00:29] LABS: Glucose,Whole Blood 64 mg/dL (75-99)
[2019-04-25 00:44] LABS: Glucose,Whole Blood 66 mg/dL (75-99)
[2019-04-25] MEDS: FUROSEMIDE 10 MG/ML 4 ML VIAL IV SCH ×2 (00:51→09:59)
[2019-04-25 01:07] LABS: Glucose,Whole Blood 103 mg/dL (75-99)
[2019-04-25 01:31] LABS: Glucose,Whole Blood 142 mg/dL (75-99)
[2019-04-25 01:57] LABS: Glucose,Whole Blood 150 mg/dL (75-99)
[2019-04-25] MEDS ORDERED: INSULIN REGULAR 100 UNIT in SODIUM CHLORIDE 0.9% 100 ML IV SCH (02:00)
[2019-04-25 02:56] LABS: Glucose,Whole Blood 164 mg/dL (75-99)
[2019-04-25] MEDS: IPRATROPIUM-ALBUTEROL 3 ML NEB INHALATION SCH ×3 (03:22→11:25)
[2019-04-25 03:26] LABS: Glucose,Whole Blood 157 mg/dL (75-99)
[2019-04-25 03:48] LABS: Calcium 8.4 mg/dL (8.4-10.2); Potassium 3.2 mmol/L (3.5-5.1)
[2019-04-25 03:57] LABS: Glucose,Whole Blood 151 mg/dL (75-99)
[2019-04-25 04:32] LABS: Glucose,Whole Blood 142 mg/dL (75-99)
[2019-04-25] MEDS: POTASSIUM CHLORIDE ER 20 MEQ TAB.ER PO SCH ×2 (05:46→06:40)
[2019-04-25 06:17] LABS: African American GFR (CKD) >90 (>60 ml/min/1.73 sqM); Anion Gap 6 mmol/L; Blood Urea Nitrogen 32 mg/dL (9-20); Calcium 8.2 mg/dL (8.4-10.2); Carbon Dioxide 32 mmol/L (22-30); Chloride 100 mmol/L (98-107); Glucose 120 mg/dL (74-99); Non-African American GFR(CKD) 80 (>60 ml/min/1.73 sqM); Potassium 3.1 mmol/L (3.5-5.1); Sodium 138 mmol/L (137-145)
[2019-04-25 06:54] LABS: Glucose,Whole Blood 111 mg/dL (75-99)
[2019-04-25] MEDS ORDERED: PROPOFOL 10 MG/ML 20 ML VIAL IV ONE (08:08)
[2019-04-25] MEDS ORDERED: IV FLUID CONTINUATION 1,000 ML IV ONE ×2 (08:10)
[2019-04-25] MEDS ORDERED: BENZOCAINE SPRAY 1 CAN TOPICAL ONE (08:26)
[2019-04-25 08:56] LABS: Glucose,Whole Blood 114 mg/dL (75-99)
[2019-04-25] MEDS ORDERED: FAMOTIDINE 20 MG TAB PO SCH (09:00)
[2019-04-25] MEDS ORDERED: SODIUM CHLORIDE 0.9% 1,000 ML IV SCH (09:00)
[2019-04-25] MEDS ORDERED: predniSONE 20 MG TAB PO SCH (09:00)
--- NOTE | 2019-04-25 09:27 | ECHOT ---
TRANSESOPHAGEAL ECHOCARDIOGRAM INDICATION: Evaluation of left atrial appendage. PROCEDURE: After explaining the procedure to the patient, its risks and the complications, his blood pressure, heart rate, O2 saturation was monitored. The throat was sprayed with Cetacaine. He received sedation per anesthesia department. The probe was introduced in esophagus without difficulty. Images were obtained. Following that, the probe was removed. There was no immediate complication. FINDINGS: The left atrial size is mildly dilated. Left atrial appendage is normal. Left ventricular size is normal. There is mildly impaired left ventricular systolic function, ejection fraction of 45% to 50%. The aortic valve appears to be normal. Mitral valve revealed mild prolapse of the posterior mitral valve leaflets. The tricuspid valve is normal. Descending thoracic aorta appears to be normal. Contrast bubble study revealed no shunting across the interatrial septum. Doppler, pulse wave and color Doppler obtained and revealed a moderate eccentric mitral regurgitation with mild tricuspid regurgitation. There was no shunting by color Doppler study. CONCLUSION: 1. Mildly dilated left atrium with normal appearance of the left atrial appendage. 2. Mildly impaired left ventricular systolic function. 3. Mild prolapse of the posterior mitral valve leaflets with moderate mitral regurgitation, eccentric. 4. Mild tricuspid regurgitation. 5. No shunting across the interatrial septum. 6. Normal appearance of the descending thoracic aorta. MMODL / IJN: [id number] /
[2019-04-25 09:37] VITALS: RESP 18; TEMP 97.7
--- NOTE | 2019-04-25 09:57 | CE ---
CARDIAC ELECTROPHYSIOLOGY REPORT CARDIOVERSION PROCEDURE NOTE: INDICATION: Atrial fibrillation. After explaining the procedure to the patient with risks and complication after obtaining sedated state, a synchronized biphasic cardioversion using 200 joules was performed with rastafari of normal sinus rhythm. There was no immediate complication. NINA / AYDIN: [id number] /
[2019-04-25] MEDS: ASPIRIN 81 MG PO SCH (10:00)
[2019-04-25] MEDS: cloNIDine HCL 0.1 MG TAB PO SCH (10:00)
[2019-04-25] MEDS: APIXABAN 5 MG TAB PO SCH (10:00)
[2019-04-25] MEDS: GABAPENTIN 100 MG CAP PO SCH (10:01)
[2019-04-25] MEDS: hydrALAZINE HCL 25 MG TAB PO SCH (10:01)
[2019-04-25] MEDS: LISINOPRIL 20 MG TAB PO SCH (10:01)
[2019-04-25] MEDS: ISOSORBIDE MONONITRATE ER 30 MG TAB.ER.24H PO SCH (10:01)
[2019-04-25] MEDS: POTASSIUM CHLORIDE ER 10 MEQ TAB.ER.PRT PO SCH (10:02)
[2019-04-25] MEDS: METOPROLOL TARTRATE 50 MG TAB PO SCH (10:02)
--- NOTE | 2019-04-25 11:23 | P.PN ---
Subjective Progress Note Date: 04/25/19 Principal diagnosis: Dyspnea and cough 54-year-old white male patient with past medical history of ischemic cardiomyopathy, status post AICD placement, coronary arteriosclerosis, h ypertension, hyperlipidemia, carotid artery stenosis right greater than left, with the ejection fraction of 25% which recently improved to 45%, recent onset of A. fib, previous history of pulmonary embolism on Eliquis, former smoker, severe COPD with baseline FEV1 of 1.21 L or 37% of predicted, obstructive sleep apnea on CPAP, patient had been seen in the pulmonary office before by Dr. Yates. Patient has chronic exertional dyspnea and desaturation and he had been on oxygen in the past. Patient was recently hospitalized for chest pain and shortness of breath with elevated troponins with the possibility of acute non-ST elevated myocardial infarction. Patient also had a new onset atrial fibrillation during that admission. He underwent heart catheterization on 04/13/[address] Ga and was found to have severe triple-vessel coronary artery disease, patent ramus intermedius stent, patent SVG to OM patent MAE to LAD and chronically occluded SVG to the RCA. The recommendation was made for medical management and possible cardioversion. Patient was discharged home on O2 2019. On 04/23/2019 patient came into the emergency department with complaints of difficulty breathing, dry persistent cough with no phlegm production. He felt that she was retaining fluid, patient was diffusely wheezing. His cough was nonproductive, denied any fever or chills, and patient had been having some chest pressure. Chest x-ray showed cardiomegaly with new small to tiny bibasilar pleural effusion, and new patchy right basilar acute infiltrate or atelectasis. EKG showed atrial fibrillation with T-wave inversion in the inferior leads. Labs showed white blood cell count of 6.7, hemoglobin of 13.9, electrolytes were unremarkable, BUN was 22 creatinine 0.96, troponins were negative at 0.015, 0.012, 0.012, proBNP was elevated at 5530, influenza screen was negative. Patient has been afebrile. Hemodynamically stable, room air pulse ox is 99% on today's examination. He has been started on IV diuretics to 40 mg every 8 hours, he was given a dose of IV Solu-Medrol in the emergency department and started on breathing treatments. On 04/25/2019 patient seen in follow-up on observation unit, he status post transesophageal echocardiogram and cardioversion, he is currently in sinus mechanism with a controlled rate. He is back in his room, resting comfortably, room air pulse ox is 95%, he states his breathing is improving, no fever chills, hemodynamically stable, lung sounds reveal improved breath sounds, with minimal wheezing. Today's labs have been reviewed showing sodium of 138, potassium 3.1, chloride is 100, CO2 32, B1 is 32, creatinine is 1.05 Objective - Vital Signs Vital signs: Vital Signs Temp 97.7 F 04/25/19 09:30 Pulse 74 04/25/19 10:15 Resp 18 04/25/19 09:30 BP 150/84 04/25/19 10:15 Pulse Ox 95 04/25/19 10:15 Intake & Output 04/24/19 04/25/19 04/25/19 18:59 06:59 18:59 Intake Total 2216 36.276 200 Output Total 1675 2700 500 Balance 541 -2663.724 -300 Weight 78.3 kg 76.6 kg Intake: IV 200 Intake, IV Titration 36.276 Amount Insulin Regular 100 unit 36.276 In Sodium Chloride 0.9% 100 ml @ Titrate IV .Q0M INDERJIT Rx#:[id number] Oral 1616 Other 600 Output: Urine 1675 2700 500 Other: Voiding Method Toilet Toilet Urinal Urinal # Voids 1 - Exam GENERAL EXAM: Alert, very pleasant, 54-year-old white male, on room air with a pulse ox of 97% comfortable in no apparent distress. HEAD: Normocephalic/atraumatic. EYES: Normal reaction of pupils, equal size. Conjunctiva pink, sclera white. NOSE: Clear with pink turbinates. THROAT: No erythema or exudates. NECK: No masses, no JVD, no thyroid enlargement, no adenopathy. CHEST: No chest wall deformity. Symmetrical expansion. LUNGS: Equal air entry with diffuse wheezes and prolongation of expiratory phase of breathing CVS:regular rate and rhythm, normal S1 and S2, no gallops, no murmurs, no rubs ABDOMEN: Soft, nontender. No hepatosplenomegaly, normal bowel sounds, no gu arding or rigidity. EXTREMITIES: No clubbing, no edema, no cyanosis, 2+ pulses and upper and lower e xtremities. MUSCULOSKELETAL: Muscle strength and tone normal. SPINE: No scoliosis or deformity SKIN: No rashes CENTRAL NERVOUS SYSTEM: Alert and oriented -3. No focal deficits, tone is normal in all 4 extremities. PSYCHIATRIC: Alert and oriented -3. Appropriate affect. Intact judgment and insight. - Labs CBC & Chem 7: 04/23/19 14:33 04/25/19 05:31 Labs: Abnormal Lab Results - Last 24 Hours (Table) 04/24/19 04/24/19 04/24/19 Range/Units 11:38 16:34 18:53 Sodium (137-145) mmol/L Potassium (3.5-5.1) mmol/L Carbon Dioxide (22-30) mmol/L BUN (9-20) mg/dL Glucose (74-99) mg/dL POC Glucose (mg/dL) 369 H 446 H 522 H (75-99) mg/dL Calcium (8.4-10.2) mg/dL 04/24/19 04/24/19 04/24/19 Range/Units 20:36 21:20 21:49 Sodium (137-145) mmol/L Potassium (3.5-5.1) mmol/L Carbon Dioxide (22-30) mmol/L BUN (9-20) mg/dL Glucose (74-99) mg/dL POC Glucose (mg/dL) 422 H 357 H 269 H (75-99) mg/dL Calcium (8.4-10.2) mg/dL 04/24/19 04/25/19 04/25/19 Range/Units 22:23 00:28 00:43 Sodium (137-145) mmol/L Potassium (3.5-5.1) mmol/L Carbon Dioxide (22-30) mmol/L BUN (9-20) mg/dL Glucose (74-99) mg/dL POC Glucose (mg/dL) 172 H 64 L 66 L (75-99) mg/dL Calcium (8.4-10.2) mg/dL 04/25/19 04/25/19 04/25/19 Range/Units 01:05 01:29 01:55 Sodium (137-145) mmol/L Potassium (3.5-5.1) mmol/L Carbon Dioxide (22-30) mmol/L BUN (9-20) mg/dL Glucose (74-99) mg/dL POC Glucose (mg/dL) 103 H 142 H 150 H (75-99) mg/dL Calcium (8.4-10.2) mg/dL 04/25/19 04/25/19 04/25/19 Range/Units 02:55 03:04 03:25 Sodium 136 L (137-145) mmol/L Potassium 3.2 L (3.5-5.1) mmol/L Carbon Dioxide 31 H (22-30) mmol/L BUN 34 H (9-20) mg/dL Glucose 166 H (74-99) mg/dL POC Glucose (mg/dL) 164 H 157 H (75-99) mg/dL Calcium (8.4-10.2) mg/dL 04/25/19 04/25/19 04/25/19 Range/Units 03:55 04:31 05:31 Sodium (137-145) mmol/L Potassium 3.1 L (3.5-5.1) mmol/L Carbon Dioxide 32 H (22-30) mmol/L BUN 32 H (9-20) mg/dL Glucose 120 H (74-99) mg/dL POC Glucose (mg/dL) 151 H 142 H (75-99) mg/dL Calcium 8.2 L (8.4-10.2) mg/dL 04/25/19 04/25/19 Range/Units 06:52 08:55 Sodium (137-145) mmol/L Potassium (3.5-5.1) mmol/L Carbon Dioxide (22-30) mmol/L BUN (9-20) mg/dL Glucose (74-99) mg/dL POC Glucose (mg/dL) 111 H 114 H (75-99) mg/dL Calcium (8.4-10.2) mg/dL Assessment and Plan Plan: Assessment: #1. Dyspnea, multifactorial, related to acute exacerbation of systolic CHF and acute exacerbation of chronic obstructive pulmonary disease #2. Recent non-ST elevated myocardial infarction status post heart catheterization on 04/13/2019, revealed chronic occlusion of the saphenous vein graft to the RCA, patent saphenous vein graft to the OM, patent MAE to LAD, and patent ramus intermedius stent. Medical treatment was recommended. Discharged home on 04/14/2019 #3. Recent onset of atrial fibrillation, patient is on Eliquis. Patient remains in A. fib this admission, is planned for cardioversion #4. Severe COPD, with baseline FEV1 of 1.21 L or 37% of predicted, consistent with stage III COPD #5. Former smoker #6. History of pulmonary embolism/DVT #7. Diabetes mellitus type 2 and diabetic polyneuropathy, with history of hyperglycemia and medical noncompliance #8. Hypertension #9. Hyperlipidemia #10. Obstructive sleep apnea on CPAP therapy #11. Medical noncompliance Plan: Continue with current medical treatment, oral prednisone, breathing treatments, patient is maintaining negative fluid balance, he remains on IV Lasix, he has been not successfully cardioverted to sinus rhythm, he is on oral anti coagulation, breathing easier, significant coughing or wheezing at today's exam. We'll Probably cut back the IV Lasix I performed a history & physical examination of the patient and discussed their management with my nurse practitioner, Natali Veras. I reviewed the nurse practitioner's note and agree with the documented findings and plan of care. Lung sounds are positive for diffuse wheezes throughout the lung alvares. The findings and the impression was discussed with the patient. I attest to the documentation by the nurse practitioner. Time with Patient: Less than 30
[2019-04-25 11:32] LABS: Glucose,Whole Blood 145 mg/dL (75-99)
[2019-04-25 12:19] VITALS: BP 124/69; PULSE 69
[2019-04-25] MEDS ORDERED: FUROSEMIDE 10 MG/ML 4 ML VIAL IV SCH (21:00)
[2019-04-26] MEDS ORDERED: FUROSEMIDE 10 MG/ML 4 ML VIAL IV SCH (09:00)
--- NOTE | 2019-04-26 09:11 | P.DS ---
Providers Date of admission: 04/24/19 15:09 Expected date of discharge: 04/25/19 Attending physician: Kelly Montesinos Consults: 04/23/19 15:52 Consult Physician Urgent Consulting Provider: [facility] Consult Reason/Comments: AECHF Do you want consulting provider notified?: Yes 04/23/19 16:54 Consult Physician Urgent Consulting Provider: Darrius Allen Consult Reason/Comments: acute resp insuff Do you want consulting provider notified?: Yes Primary care physician: Kelly Montesinos Hospital Course: This is a 54-year-old male patient of Dr. Montesinos and Dr. Ga with past medical history of coronary artery disease status post 6 vessel CABG 2006 with MAE to LAD, saphenous venous graft to the PDA, saphenous venous graft to the obtuse marginal one, radial artery to the obtuse marginal branch 2 and saphenous venous graft to the obtuse marginal 3 followed by heart catheterization with PCI and stent of the saphenous venous graft to the RCA in 2015 at which time he presented with non-ST elevated myocardial infarction. History of hypertension hypertensive cardiovascular disease with left ventricular hypertrophy, hyperlipidemia, diabetes mellitus type 2 with diabetic polyneuropathy, hyperlipidemia, asthma, obstructive sleep apnea on CPAP, chronic low back pain, chronic kidney disease stage II, DVT in the past. Patient had recent hospitalization April 13 to and treated for chest pain, shortness of breath and elevated troponins with possible non-ST elevated myocardial infarction status post heart catheterization with Dr. Ga that found severe triple-vessel coronary artery disease. Patent ramus intermedius stent. Patent saphenous vein graft to the obtuse marginal branch. Patent MAE to LAD. Chronically occluded saphenous vein graft to the right coronary artery. Recommendations for medical management and consider cardioversion. Echocardiogram on that admission revealed EF 45-50% with severe concentric left ventricular hypertrophy, mild to moderate mitral regurgitation, mild tricuspid regurgitation. Patient also presented with new onset of atrial fibrillation, started on anticoagulation with eliquis and was discharged home in stable condition. On that admission, patient expressed that he had not been taking many of his medications due to lack of insurance or money to pay for his prescriptions. 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 The patient complains of significant shortness of breath and a little bit of pressure in his chest. Patient complains of a cough that Maksim. It just does not seem to go away. Patient apparently has not been taking his Lasix since the time of discharge. He is now stating he does not have nebulizer inhalers at home. He was scheduled as an outpatient on May 04 for SYLVAIN and cardioversion. Patient presented to [facility] emergency center. EKG showed atrial fibrillation at rate of [address]-T wave changes, mild ST elevation note d in the inferior leads, LVH. Chest x-ray reveals cardiomegaly with new small tiny bibasilar pleural effusions and a new patchy right basilar infiltrate. Blood pressure 130/70 with a heart rate in the 60s, 96% on room air. CBC unremarkable, sodium 136, potassium 4.3, creatinine 0.96, troponins negative on 3 draws. ProBNP 5530. Patient was afebrile, heart rate 72, blood pressure 121/78, pulse ox 99% on room air. Patient received Solu-Medrol, IV hydralazine, IV Lasix, oral clonidine and DuoNeb treatment in the emergency center and then moved to the observation unit. Patient has been seen by cardiology and pulmonary medicine. Patient is scheduled for SYLVAIN and cardioversion tomorrow. Patient has no wheezing at the time of evaluation will be transitioned to oral prednisone. 04/24: Today, patient underwent SYLVAIN finding left atrial mildly dilated. Left atrial appendage is normal. Left ventricular size normal. Mildly impaired left ventricular systolic function with ejection fraction of 45-50%. Mild prolapse of the posterior mitral valve leaflets with moderate mitral regurgitation, concentric. Mild tricuspid regurgitation. No shunting across the intra-atrial septum. Normal appearance of the descending thoracic aorta. He subsequently underwent successful electrical cardioversion with Dr. Ga. Patient transitioned to normal sinus and remains in a sinus rhythm at the time of evaluation. Patient has been cleared for discharge by consultants. Patient will be discharged home today in stable condition. Discharge diagnoses: 1. Chest pain, shortness of breath, secondary to acute exacerbation of COPD and acute systolic heart failure. 2. Recent non-ST elevated myocardial infarction status post heart catheterization with recommendations for medical management. 3. Persistent atrial fibrillation. 4. History of coronary artery disease status post coronary artery bypass graft for 6 vessel disease with chronically occluded saphenous venous graft to the obtuse marginal branch and status post PCI of the saphenous graft to the RCA. 5. Diabetes mellitus type 2 and diabetic polyneuropathy, uncontrolled with hyperglycemia secondary to noncompliance. 6. Hypertension, hypertensive cardiovascular disease. 7. Hyperlipidemia. 8. Severe COPD with FEV1 37%, stage III COPD. 9. Obstructive sleep apnea. 10. History of pulmonary embolism and DVT, stable. Discharge plan: Return home The above impression and plan of care have been discussed and directed by signing physician. Megha Miranda nurse practitioner acting as scribe for signing physician. Patient Condition at Discharge: Stable Plan - Discharge Summary Discharge Rx Participant: No New Discharge Prescriptions: New hydrALAZINE HCL [Apresoline] 75 mg PO TID #270 tab Continue Ergocalciferol [Vitamin D2 (DRISDOL)] 50,000 unit PO Q14D Multivitamins, Thera [Multivitamin (formulary)] 1 tab PO DAILY Lisinopril 40 mg PO DAILY Apixaban [Eliquis] 5 mg PO BID #60 tab Isosorbide Mononitrate ER [Imdur] 30 mg PO DAILY #30 tab.er.24h Gabapentin [Neurontin] 200 mg PO BID #60 cap cloNIDine HCL [Catapres] 0.1 mg PO BID #60 tab metFORMIN HCL [Glucophage] 1,000 mg PO BID #60 tab Potassium Chloride ER [K-Dur 10] 10 meq PO DAILY #30 tab Furosemide [Lasix] 40 mg PO DAILY PRN #30 tab PRN Reason: Edema Atorvastatin [Lipitor] 80 mg PO HS #30 tab Metoprolol Tartrate [Lopressor] 100 mg PO BID #60 tab Insulin Aspart [NovoLOG Flexpen] 0 units SQ ACHS 30 Days pen Aspirin 81 mg PO DAILY #30 chewable Insulin Glargine,Hum.rec.anlog [Basaglar Kwikpen U-100] 30 unit SQ HS #1 pen Discontinued hydrALAZINE HCL [Apresoline] 50 mg PO BID #60 tab Discharge Medication List Ergocalciferol [Vitamin D2 (DRISDOL)] 50,000 unit PO Q14D 07/02/16 [History] Multivitamins, Thera [Multivitamin (formulary)] 1 tab PO DAILY 12/13/16 [History] Lisinopril 40 mg PO DAILY 04/12/19 [History] Apixaban [Eliquis] 5 mg PO BID #60 tab 04/14/19 [Rx] Aspirin 81 mg PO DAILY #30 chewable 04/14/19 [Rx] Atorvastatin [Lipitor] 80 mg PO HS #30 tab 04/14/19 [Rx] Furosemide [Lasix] 40 mg PO DAILY PRN #30 tab 04/14/19 [Rx] Gabapentin [Neurontin] 200 mg PO BID #60 cap 04/14/19 [Rx] Insulin Aspart [NovoLOG Flexpen] 0 units SQ ACHS 30 Days pen 04/14/19 [Rx] Insulin Glargine,Hum.rec.anlog [Basaglar Kwikpen U-100] 30 unit SQ HS #1 pen 04/14/19 [Rx] Isosorbide Mononitrate ER [Imdur] 30 mg PO DAILY #30 tab.er.24h 04/14/19 [Rx] Metoprolol Tartrate [Lopressor] 100 mg PO BID #60 tab 04/14/19 [Rx] Potassium Chloride ER [K-Dur 10] 10 meq PO DAILY #30 tab 04/14/19 [Rx] cloNIDine HCL [Catapres] 0.1 mg PO BID #60 tab 04/14/19 [Rx] metFORMIN HCL [Glucophage] 1,000 mg PO BID #60 tab 04/14/19 [Rx] hydrALAZINE HCL [Apresoline] 75 mg PO TID #270 tab 04/25/19 [Rx] Follow up Appointment(s)/Referral(s): Jorge Luis Ga MD [STAFF PHYSICIAN] - 2 Weeks (Office will call with appointment.) Kelly Montesinos MD [Primary Care Provider] - 1-2 days Patient Instructions/Handouts: Heart Failure (DC), Transesophageal Echocardiogram (DC), Cardioversion (DC) Discharge Disposition: HOME SELF-CARE
[2019-05-06] MEDS ORDERED: ERGOCALCIFEROL 50,000 UNIT CAP PO SCH (12:00)
== END 2019-04-25 15:02 | disposition home or self-care (01) | DRG 280 ==
LOC: EC 13:51 → 3SCARD 15:51 → 1SOBS 16:34 → OBSVTOIN 04-24 15:09
PROVIDERS: ADMIT Internal Medicine; ATTEND Internal Medicine
PROC: 5A2204Z Restoration of Cardiac Rhythm, Single (ICD-10-PCS; principal; 2019-04-25 08:30)
DX: I13.0 Hypertensive heart and chronic kidney disease with heart failure and stage 1 through stage 4 chronic kidney disease, or unspecified chronic kidney disease (principal); I21.4 Non-ST elevation (NSTEMI) myocardial infarction; I50.23 Acute on chronic systolic (congestive) heart failure; I25.810 Atherosclerosis of coronary artery bypass graft(s) without angina pectoris; I48.19 Other persistent atrial fibrillation; J44.1 Chronic obstructive pulmonary disease with (acute) exacerbation; J98.11 Atelectasis; E11.22 Type 2 diabetes mellitus with diabetic chronic kidney disease; E11.42 Type 2 diabetes mellitus with diabetic polyneuropathy; E11.65 Type 2 diabetes mellitus with hyperglycemia; E78.5 Hyperlipidemia, unspecified; G47.33 Obstructive sleep apnea (adult) (pediatric); I25.10 Atherosclerotic heart disease of native coronary artery without angina pectoris; I25.2 Old myocardial infarction; I25.5 Ischemic cardiomyopathy; N18.2 Chronic kidney disease, stage 2 (mild); T50.1X6A Underdosing of loop [high-ceiling] diuretics, initial encounter; T50.916A Underdosing of multiple unspecified drugs, medicaments and biological substances, initial encounter; Z91.120 Patient's intentional underdosing of medication regimen due to financial hardship; G89.29 Other chronic pain; M54.5 Low back pain; I65.23 Occlusion and stenosis of bilateral carotid arteries; I08.1 Rheumatic disorders of both mitral and tricuspid valves; Z79.01 Long term (current) use of anticoagulants; Z79.4 Long term (current) use of insulin; Z79.82 Long term (current) use of aspirin; Z79.899 Other long term (current) drug therapy; Z86.711 Personal history of pulmonary embolism; Z86.718 Personal history of other venous thrombosis and embolism; Z87.891 Personal history of nicotine dependence; Z95.5 Presence of coronary angioplasty implant and graft; Z95.810 Presence of automatic (implantable) cardiac defibrillator; Z98.1 Arthrodesis status; Z88.1 Allergy status to other antibiotic agents; Z91.048 Other nonmedicinal substance allergy status; Z86.14 Personal history of Methicillin resistant Staphylococcus aureus infection; Z82.49 Family history of ischemic heart disease and other diseases of the circulatory system; Z82.5 Family history of asthma and other chronic lower respiratory diseases; Z83.3 Family history of diabetes mellitus; Z82.61 Family history of arthritis
CPT/HCPCS: 36415; 71046; 80048; 80053; 83605; 83880; 84484; 85025; 85610; 85730; 87502; 92960; 93005; 93312; 93320; 93325; 94640; 96374; 96375; 99285

== ENCOUNTER 2019-05-17 13:48 | Inpatient (IN) | payer MEDICARE ==
[2019-05-17] MEDS ORDERED: SODIUM CHLORIDE 0.9% 500 ML 500 ML IV STA (14:11)
--- NOTE | 2019-05-17 14:15 | ED ---
General Adult HPI - General Chief complaint: Shortness of Breath Stated complaint: Chest Pain, SOB Time Seen by Provider: 05/17/19 14:00 Source: patient, RN notes reviewed, old records reviewed Mode of arrival: wheelchair Limitations: no limitations - History of Present Illness Initial comments: This is a 54-year-old male who presents emergency Department complaining of shortness of breath and some sharp left-sided chest pain on occasion . Patient states he also is having a cough lately. Patient states the chest pain is definitely worse with exertion. Patient states his symptoms started last night. Patient called his primary medical care doctor and he was [facility] and they told him to come here. Patient had a flu test done there and it was negative. Patient states there were going to send the COVID test. Patient states he also has a history of the past of some congestive heart failure. Patient denies any fever but states he has a chills since yesterday. Patient denies any abdominal pain patient's nausea vomiting. - Related Data Home Medications Medication Instructions Recorded Confirmed Ergocalciferol [Vitamin D2 50,000 unit PO Q14D 07/02/16 05/17/19 (DRISDOL)] Multivitamins, Thera [Multivitamin 1 tab PO DAILY 12/13/16 05/17/19 (formulary)] Lisinopril 40 mg PO DAILY 04/12/19 05/17/19 Previous Rx's Medication Instructions Recorded Apixaban [Eliquis] 5 mg PO BID #60 tab 04/14/19 Aspirin 81 mg PO DAILY #30 chewable 04/14/19 Atorvastatin [Lipitor] 80 mg PO HS #30 tab 04/14/19 Furosemide [Lasix] 40 mg PO DAILY PRN #30 tab 04/14/19 Gabapentin [Neurontin] 200 mg PO BID #60 cap 04/14/19 Insulin Aspart [NovoLOG Flexpen] 0 units SQ ACHS 30 Days pen 04/14/19 Insulin Glargine,Hum.rec.anlog 30 unit SQ HS #1 pen 04/14/19 [Basaglar Kwikpen U-100] Isosorbide Mononitrate ER [Imdur] 30 mg PO DAILY #30 tab.er.24h 04/14/19 Metoprolol Tartrate [Lopressor] 100 mg PO BID #60 tab 04/14/19 Potassium Chloride ER [K-Dur 10] 10 meq PO DAILY #30 tab 04/14/19 cloNIDine HCL [Catapres] 0.1 mg PO BID #60 tab 04/14/19 metFORMIN HCL [Glucophage] 1,000 mg PO BID #60 tab 04/14/19 hydrALAZINE HCL [Apresoline] 75 mg PO TID #270 tab 04/25/19 Allergies Allergy/AdvReac Type Severity Reaction Status Date / Time adhesive tape Allergy Severe Rash/Hives Verified 05/17/19 19:56 vancomycin Allergy Mild Rash/Hives Verified 05/17/19 19:56 Review of Systems ROS Statement: Those systems with pertinent positive or pertinent negative responses have been documented in the HPI. ROS Other: All systems not noted in ROS Statement are negative. Past Medical History Past Medical History: Asthma, Coronary Artery Disease (CAD), Chest Pain / Angina, Diabetes Mellitus, Deep Vein Thrombosis (DVT), Hyperlipidemia, Hypertension, Myocardial Infarction (MO), Sleep Apnea/CPAP/BIPAP Additional Past Medical History / Comment(s): Obstructive sleep apnea CPAP, bron chitis, IDDM type II, DVT L leg, cellulitis L leg 2012 cellulitis L Arm 2017, diabetic neuropathy affects feet and hands, chronic kidney disease stage II Last Myocardial Infarction Date:: 06/23/13 History of Any Multi-Drug Resistant Organisms: Acinetobacter (MDRO), MRSA Date of last positivie culture/infection: 08/2014 MDRO Source:: abdomen around navel Past Surgical History: Back Surgery, Coronary Bypass/CABG, Heart Catheterization, Heart Catheterization With Stent, Hernia Repair Additional Past Surgical History / Comment(s): Cardiac caths, PCI with stents (4total), 2006 CABG 6 vessels, spinal fusion L4-L5, fasciotomy left thigh, bilateral inguinal hernia repairs, I&D L forearm with dehisence then compartment syndrome with fasciotomy Left forearm - June 2016 Past Anesthesia/Blood Transfusion Reactions: No Reported Reaction Date of Last Stent Placement:: 08/28/15 Past Psychological History: No Psychological Hx Reported Smoking Status: Never smoker Past Alcohol Use History: None Reported Past Drug Use History: None Reported - Past Family History Brother(s) Additional Family Medical History / Comment(s): Patient has 1 brother and 1 sister with no major medical problems. Mother Family Medical History: Congestive Heart Failure (CHF), Diabetes Mellitus Additional Family Medical History / Comment(s): Mother at the age of 84 from with history of chronic renal disease stage. Father Family Medical History: COPD, Coronary Artery Disease (CAD), Myocardial Infarction (MO) Additional Family Medical History / Comment(s): Father of a MO at the age of 60 yrs with history of COPD. Sister(s) Family Medical History: Rheumatoid Arthritis (RA) Additional Family Medical History / Comment(s): Patient has 1 sister with no major medical problems. General Exam - General Exam Comments Initial Comments: GENERAL: Patient is well-developed and well-nourished. Patient is nontoxic and well-hydrated and is in mild distress. ENT: Neck is soft and supple. No significant lymphadenopathy is noted. Oropharynx is clear. Moist mucous membranes. Neck has full range of motion without eliciting any pain. EYES: The sclera were anicteric and conjunctiva were pink and moist. Extraocular movements were intact and pupils were equal round and reactive to light. Eyelids were unremarkable. PULMONARY: Mild respiratory distress with minimal crackle in the right base CARDIOVASCULAR: There is a regular rate and rhythm without any murmurs gallops or rubs. ABDOMEN: Soft and nontender with normal bowel sounds. SKIN: Skin is clear with no lesions or rashes and otherwise unremarkable. NEUROLOGIC: Patient is alert and oriented x3. Cranial nerves II through XII are grossly intact. Motor and sensory are also intact. Normal speech, volume and content. Symmetrical smile. MUSCULOSKELETAL: Normal extremities with adequate strength and full range of motion. LYMPHATICS: No significant lymphadenopathy is noted PSYCHIATRIC: Patient appears very anxious Limitations: no limitations Course Vital Signs 05/17/19 05/17/19 05/17/19 13:52 14:22 14:30 Temperature 98.8 F Pulse Rate 83 82 Respiratory 18 16 Rate Blood Pressure 96/58 93/66 O2 Sat by Pulse 99 98 98 Oximetry 05/17/19 05/17/19 05/17/19 14:45 15:00 15:15 Temperature Pulse Rate 84 89 90 Respiratory 16 16 18 Rate Blood Pressure 96/62 96/62 96/63 O2 Sat by Pulse 91 L 100 99 Oximetry 05/17/19 05/17/19 05/17/19 15:30 15:45 16:00 Temperature Pulse Rate 87 87 86 Respiratory 18 17 16 Rate Blood Pressure 96/63 100/72 100/72 O2 Sat by Pulse 100 99 99 Oximetry 05/17/19 05/17/19 05/17/19 16:30 17:00 17:30 Temperature Pulse Rate 84 85 87 Respiratory 11 L 29 H 21 Rate Blood Pressure 99/63 106/61 116/80 O2 Sat by Pulse Oximetry 05/17/19 05/17/19 05/17/19 18:00 18:30 19:30 Temperature Pulse Rate 89 90 Respiratory 33 H 21 Rate Blood Pressure 109/71 110/64 O2 Sat by Pulse 99 Oximetry 05/17/19 05/17/19 20:00 20:30 Temperature Pulse Rate 87 85 Respiratory 16 18 Rate Blood Pressure 147/66 O2 Sat by Pulse 100 100 Oximetry Procedures - Sepsis Sepsis Focused Exam #1 Time Sepsis Criteria Met: 04: Sepsis Focused Exam Date: 05/17/19 Sepsis Focused Exam Time: 17:00 Sepsis Focused Exam Complete: Yes Vital Signs & RN Notes Reviewed: Yes Capillary Refill: < 2 Seconds: Fingers Peripheral Pulses: Normal: Radial (R) Skin Color: Normal for Patient Respiratory Exam: other (Occasional crackles in the right base) Cardiovascular Exam: regular rate Medical Decision Making - Medical Decision Making EKG shows normal sinus rhythm at 86 bpm AL interval 180 QRS 94 QT interval 396 QTC is 473. Patient's EKG shows T-wave inversions in leads 23 aVF as well as precordial leads V4 V5 and V6 all of these were seen her previous EKG. Chest x-ray shows no obvious acute abnormality. Patient had an elevated lactic acid of 5.8 along with an elevated white count I started the patient on Rocephin and vancomycin as well as gave the patient some Zithromax. Patient had no known infection at this point but I was considering the patient's septic at 4 PM. I ordered a VQ scan because the patient a d-dimer of 32 and initially he told he was taking eliquis but I reinterviewed him later and he stated that he hasn't taken it for 2 days. I did also a flu swab as well as a COVID test on the patient as well. Patient also had an elevated troponin I spoke with Dr. Mcdaniel and reviewed the case with them he did not seem to be concerned that it was cardiac at this time. I spoke with Dr. Green he agreed to admit the patient he wanted a consult of pulmonary ID and cardiology. Echocardiogram showed some right heart strain. VQ scan showed no mismatch. I spoke with Dr. Foote and informed him of the patient's situation he at this time was okay with the patient going to the floor. - Lab Data Result diagrams: 05/18/19 05:47 05/18/19 05:47 Lab Results 05/17/19 05/17/19 05/17/19 Range/Units 14:29 14:29 14:29 WBC 27.4 H (3.8-10.6) k/uL RBC 5.12 (4.30-5.90) m/uL Hgb 14.3 (13.0-17.5) gm/dL Hct 42.2 (39.0-53.0) % MCV 82.4 (80.0-100.0) fL MCH 27.9 (25.0-35.0) pg MCHC 33.8 (31.0-37.0) g/dL RDW 14.2 (11.5-15.5) % Plt Count 150 (150-450) k/uL Neutrophils % (Manual) 71 % Band Neutrophils % 11 % Lymphocytes % (Manual) 1 % Monocytes % (Manual) 6 % Metamyelocytes % 10 % Myelocytes % 3 % Neutrophils # (Manual) 22.40 H (1.3-7.7) k/uL Lymphocytes # (Manual) 0.27 L (1.0-4.8) k/uL Monocytes # (Manual) 1.64 H (0-1.0) k/uL Metamyelocytes # (Man) 2.74 H (0) k/uL Myelocytes # (Manual) 0.82 H (0) k/uL Nucleated RBCs 0 (0-0) /100 WBC Manual Slide Review Performed Toxic Granulation Present Toxic Vacuolation Present PT 13.3 H (9.0-12.0) sec INR 1.3 H (<1.2) APTT 32.4 H (22.0-30.0) sec D-Dimer (<0.60) mg/L FEU Sodium 133 L (137-145) mmol/L Potassium 4.7 (3.5-5.1) mmol/L Chloride 98 (98-107) mmol/L Carbon Dioxide 21 L (22-30) mmol/L Anion Gap 14 mmol/L BUN 44 H (9-20) mg/dL Creatinine 2.10 H (0.66-1.25) mg/dL Est GFR (CKD-EPI)AfAm 40 (>60 ml/min/1.73 sqM) Est GFR (CKD-EPI)NonAf 34 (>60 ml/min/1.73 sqM) Glucose 145 H (74-99) mg/dL Lactic Ac Sepsis Rflx Plasma Lactic Acid Oskar (0.7-2.0) mmol/L Calcium 8.2 L (8.4-10.2) mg/dL Total Bilirubin 1.2 (0.2-1.3) mg/dL AST 78 H (17-59) U/L ALT 52 H (4-49) U/L Alkaline Phosphatase 104 (38-126) U/L Troponin I (0.000-0.034) ng/mL C-Reactive Protein (<10.0) mg/L NT-Pro-B Natriuret Pep pg/mL Total Protein 6.3 (6.3-8.2) g/dL Albumin 3.6 (3.5-5.0) g/dL Urine Color Urine Appearance (Clear) Urine pH (5.0-8.0) Ur Specific [place] (1.001-1.035) Urine Protein (Negative) Urine Glucose (UA) (Negative) Urine Ketones (Negative) Urine Blood (Negative) Urine Nitrite (Negative) Urine Bilirubin (Negative) Urine Urobilinogen (<2.0) mg/dL Ur Leukocyte Esterase (Negative) Urine RBC (0-5) /hpf Urine WBC (0-5) /hpf Ur Squamous Epith Cells (0-4) /hpf Amorphous Sediment (None) /hpf Urine Mucus (None) /hpf Coronavirus (PCR) Influenza Type A RNA (Not Detectd) Influenza Type B (PCR) (Not Detectd) 05/17/19 05/17/19 05/17/19 Range/Units 14:29 14:29 14:29 WBC (3.8-10.6) k/uL RBC (4.30-5.90) m/uL Hgb (13.0-17.5) gm/dL Hct (39.0-53.0) % MCV (80.0-100.0) fL MCH (25.0-35.0) pg MCHC (31.0-37.0) g/dL RDW (11.5-15.5) % Plt Count (150-450) k/uL Neutrophils % (Manual) % Band Neutrophils % % Lymphocytes % (Manual) % Monocytes % (Manual) % Metamyelocytes % % Myelocytes % % Neutrophils # (Manual) (1.3-7.7) k/uL Lymphocytes # (Manual) (1.0-4.8) k/uL Monocytes # (Manual) (0-1.0) k/uL Metamyelocytes # (Man) (0) k/uL Myelocytes # (Manual) (0) k/uL Nucleated RBCs (0-0) /100 WBC Manual Slide Review Toxic Granulation Toxic Vacuolation PT (9.0-12.0) sec INR (<1.2) APTT (22.0-30.0) sec D-Dimer (<0.60) mg/L FEU Sodium (137-145) mmol/L Potassium (3.5-5.1) mmol/L Chloride (98-107) mmol/L Carbon Dioxide (22-30) mmol/L Anion Gap mmol/L BUN (9-20) mg/dL Creatinine (0.66-1.25) mg/dL Est GFR (CKD-EPI)AfAm (>60 ml/min/1.73 sqM) Est GFR (CKD-EPI)NonAf (>60 ml/min/1.73 sqM) Glucose (74-99) mg/dL Lactic Ac Sepsis Rflx Plasma Lactic Acid Oskar 5.8 H* (0.7-2.0) mmol/L Calcium (8.4-10.2) mg/dL Total Bilirubin (0.2-1.3) mg/dL AST (17-59) U/L ALT (4-49) U/L Alkaline Phosphatase (38-126) U/L Troponin I 1.550 H* (0.000-0.034) ng/mL C-Reactive Protein (<10.0) mg/L NT-Pro-B Natriuret Pep 49738 pg/mL Total Protein (6.3-8.2) g/dL Albumin (3.5-5.0) g/dL Urine Color Urine Appearance (Clear) Urine pH (5.0-8.0) Ur Specific [place] (1.001-1.035) Urine Protein (Negative) Urine Glucose (UA) (Negative) Urine Ketones (Negative) Urine Blood (Negative) Urine Nitrite (Negative) Urine Bilirubin (Negative) Urine Urobilinogen (<2.0) mg/dL Ur Leukocyte Esterase (Negative) Urine RBC (0-5) /hpf Urine WBC (0-5) /hpf Ur Squamous Epith Cells (0-4) /hpf Amorphous Sediment (None) /hpf Urine Mucus (None) /hpf Coronavirus (PCR) Influenza Type A RNA (Not Detectd) Influenza Type B (PCR) (Not Detectd) 05/17/19 05/17/19 05/17/19 Range/Units 14:29 14:29 15:06 WBC (3.8-10.6) k/uL RBC (4.30-5.90) m/uL Hgb (13.0-17.5) gm/dL Hct (39.0-53.0) % MCV (80.0-100.0) fL MCH (25.0-35.0) pg MCHC (31.0-37.0) g/dL RDW (11.5-15.5) % Plt Count (150-450) k/uL Neutrophils % (Manual) % Band Neutrophils % % Lymphocytes % (Manual) % Monocytes % (Manual) % Metamyelocytes % % Myelocytes % % Neutrophils # (Manual) (1.3-7.7) k/uL Lymphocytes # (Manual) (1.0-4.8) k/uL Monocytes # (Manual) (0-1.0) k/uL Metamyelocytes # (Man) (0) k/uL Myelocytes # (Manual) (0) k/uL Nucleated RBCs (0-0) /100 WBC Manual Slide Review Toxic Granulation Toxic Vacuolation PT (9.0-12.0) sec INR (<1.2) APTT (22.0-30.0) sec D-Dimer 34.62 H (<0.60) mg/L FEU Sodium (137-145) mmol/L Potassium (3.5-5.1) mmol/L Chloride (98-107) mmol/L Carbon Dioxide (22-30) mmol/L Anion Gap mmol/L BUN (9-20) mg/dL Creatinine (0.66-1.25) mg/dL Est GFR (CKD-EPI)AfAm (>60 ml/min/1.73 sqM) Est GFR (CKD-EPI)NonAf (>60 ml/min/1.73 sqM) Glucose (74-99) mg/dL Lactic Ac Sepsis Rflx Y Plasma Lactic Acid Oskar (0.7-2.0) mmol/L Calcium (8.4-10.2) mg/dL Total Bilirubin (0.2-1.3) mg/dL AST (17-59) U/L ALT (4-49) U/L Alkaline Phosphatase (38-126) U/L Troponin I (0.000-0.034) ng/mL C-Reactive Protein 172.0 H (<10.0) mg/L NT-Pro-B Natriuret Pep pg/mL Total Protein (6.3-8.2) g/dL Albumin (3.5-5.0) g/dL Urine Color Urine Appearance (Clear) Urine pH (5.0-8.0) Ur Specific [place] (1.001-1.035) Urine Protein (Negative) Urine Glucose (UA) (Negative) Urine Ketones (Negative) Urine Blood (Negative) Urine Nitrite (Negative) Urine Bilirubin (Negative) Urine Urobilinogen (<2.0) mg/dL Ur Leukocyte Esterase (Negative) Urine RBC (0-5) /hpf Urine WBC (0-5) /hpf Ur Squamous Epith Cells (0-4) /hpf Amorphous Sediment (None) /hpf Urine Mucus (None) /hpf Coronavirus (PCR) Influenza Type A RNA (Not Detectd) Influenza Type B (PCR) (Not Detectd) 05/17/19 05/17/19 05/17/19 Range/Units 16:55 17:05 17:05 WBC (3.8-10.6) k/uL RBC (4.30-5.90) m/uL Hgb (13.0-17.5) gm/dL Hct (39.0-53.0) % MCV (80.0-100.0) fL MCH (25.0-35.0) pg MCHC (31.0-37.0) g/dL RDW (11.5-15.5) % Plt Count (150-450) k/uL Neutrophils % (Manual) % Band Neutrophils % % Lymphocytes % (Manual) % Monocytes % (Manual) % Metamyelocytes % % Myelocytes % % Neutrophils # (Manual) (1.3-7.7) k/uL Lymphocytes # (Manual) (1.0-4.8) k/uL Monocytes # (Manual) (0-1.0) k/uL Metamyelocytes # (Man) (0) k/uL Myelocytes # (Manual) (0) k/uL Nucleated RBCs (0-0) /100 WBC Manual Slide Review Toxic Granulation Toxic Vacuolation PT (9.0-12.0) sec INR (<1.2) APTT (22.0-30.0) sec D-Dimer (<0.60) mg/L FEU Sodium (137-145) mmol/L Potassium (3.5-5.1) mmol/L Chloride (98-107) mmol/L Carbon Dioxide (22-30) mmol/L Anion Gap mmol/L BUN (9-20) mg/dL Creatinine (0.66-1.25) mg/dL Est GFR (CKD-EPI)AfAm (>60 ml/min/1.73 sqM) Est GFR (CKD-EPI)NonAf (>60 ml/min/1.73 sqM) Glucose (74-99) mg/dL Lactic Ac Sepsis Rflx Plasma Lactic Acid Oskar (0.7-2.0) mmol/L Calcium (8.4-10.2) mg/dL Total Bilirubin (0.2-1.3) mg/dL AST (17-59) U/L ALT (4-49) U/L Alkaline Phosphatase (38-126) U/L Troponin I (0.000-0.034) ng/mL C-Reactive Protein (<10.0) mg/L NT-Pro-B Natriuret Pep pg/mL Total Protein (6.3-8.2) g/dL Albumin (3.5-5.0) g/dL Urine Color Yellow Urine Appearance Cloudy (Clear) Urine pH 5.0 (5.0-8.0) Ur Specific [place] 1.021 (1.001-1.035) Urine Protein 1+ H (Negative) Urine Glucose (UA) Negative (Negative) Urine Ketones Negative (Negative) Urine Blood Small H (Negative) Urine Nitrite Negative (Negative) Urine Bilirubin Negative (Negative) Urine Urobilinogen <2.0 (<2.0) mg/dL Ur Leukocyte Esterase Negative (Negative) Urine RBC 13 H (0-5) /hpf Urine WBC 5 (0-5) /hpf Ur Squamous Epith Cells <1 (0-4) /hpf Amorphous Sediment Rare H (None) /hpf Urine Mucus Rare H (None) /hpf Coronavirus (PCR) [facility] Influenza Type A RNA Not Detected (Not Detectd) Influenza Type B (PCR) Not Detected (Not Detectd) 05/17/19 Range/Units 19:25 WBC (3.8-10.6) k/uL RBC (4.30-5.90) m/uL Hgb (13.0-17.5) gm/dL Hct (39.0-53.0) % MCV (80.0-100.0) fL MCH (25.0-35.0) pg MCHC (31.0-37.0) g/dL RDW (11.5-15.5) % Plt Count (150-450) k/uL Neutrophils % (Manual) % Band Neutrophils % % Lymphocytes % (Manual) % Monocytes % (Manual) % Metamyelocytes % % Myelocytes % % Neutrophils # (Manual) (1.3-7.7) k/uL Lymphocytes # (Manual) (1.0-4.8) k/uL Monocytes # (Manual) (0-1.0) k/uL Metamyelocytes # (Man) (0) k/uL Myelocytes # (Manual) (0) k/uL Nucleated RBCs (0-0) /100 WBC Manual Slide Review Toxic Granulation Toxic Vacuolation PT (9.0-12.0) sec INR (<1.2) APTT (22.0-30.0) sec D-Dimer (<0.60) mg/L FEU Sodium (137-145) mmol/L Potassium (3.5-5.1) mmol/L Chloride (98-107) mmol/L Carbon Dioxide (22-30) mmol/L Anion Gap mmol/L BUN (9-20) mg/dL Creatinine (0.66-1.25) mg/dL Est GFR (CKD-EPI)AfAm (>60 ml/min/1.73 sqM) Est GFR (CKD-EPI)NonAf (>60 ml/min/1.73 sqM) Glucose (74-99) mg/dL Lactic Ac Sepsis Rflx Plasma Lactic Acid Oskar 4.7 H* (0.7-2.0) mmol/L Calcium (8.4-10.2) mg/dL Total Bilirubin (0.2-1.3) mg/dL AST (17-59) U/L ALT (4-49) U/L Alkaline Phosphatase (38-126) U/L Troponin I (0.000-0.034) ng/mL C-Reactive Protein (<10.0) mg/L NT-Pro-B Natriuret Pep pg/mL Total Protein (6.3-8.2) g/dL Albumin (3.5-5.0) g/dL Urine Color Urine Appearance (Clear) Urine pH (5.0-8.0) Ur Specific [place] (1.001-1.035) Urine Protein (Negative) Urine Glucose (UA) (Negative) Urine Ketones (Negative) Urine Blood (Negative) Urine Nitrite (Negative) Urine Bilirubin (Negative) Urine Urobilinogen (<2.0) mg/dL Ur Leukocyte Esterase (Negative) Urine RBC (0-5) /hpf Urine WBC (0-5) /hpf Ur Squamous Epith Cells (0-4) /hpf Amorphous Sediment (None) /hpf Urine Mucus (None) /hpf Coronavirus (PCR) Influenza Type A RNA (Not Detectd) Influenza Type B (PCR) (Not Detectd) Critical Care Time Critical Care Time: Yes Total Critical Care Time: 35 Disposition Clinical Impression: Sepsis, Elevated troponin, Renal insufficiency, Non-STEMI (non-ST elevated myocardial infarction) Disposition: ADMITTED IP TO THIS HOSP Time of Disposition: 20:00
[2019-05-17 14:44] LABS: HCT 42.2 % (39.0-53.0); HGB 14.3 gm/dL (13.0-17.5); MCH 27.9 pg (25.0-35.0); MCHC 33.8 g/dL (31.0-37.0); MCV 82.4 fL (80.0-100.0); Mean Platelet Volume 9.4; Platelet Count 150 k/uL (150-450); RBC 5.12 m/uL (4.30-5.90); RDW 14.2 % (11.5-15.5); WBC 27.4 k/uL (3.8-10.6)
--- NOTE | 2019-05-17 14:44 | XR ---
EXAMINATION TYPE: XR chest 2V DATE OF EXAM: 05/17/2019 COMPARISON: 04/23/2019 HISTORY: 54-year-old male difficulty breathing TECHNIQUE: AP and lateral views FINDINGS: Median sternotomy wires are present. Heart remains borderline in size. Some perihilar density and mil d peribronchial cuffing is noted without consolidation or pleural effusion. IMPRESSION: Peribronchial cuffing could reflect bronchitis or asthma. No focal infiltrate.
[2019-05-17 14:59] LABS: Albumin 3.6 g/dL (3.5-5.0); Calcium 8.2 mg/dL (8.4-10.2); Potassium 4.7 mmol/L (3.5-5.1); Total Bilirubin 1.2 mg/dL (0.2-1.3); Total Protein 6.3 g/dL (6.3-8.2)
[2019-05-17 15:03] LABS: INR 1.3 (<1.2); Partial Thromboplastin Time 32.4 sec (22.0-30.0); Prothrombin Time 13.3 sec (9.0-12.0)
[2019-05-17 15:06] LABS: Myelocytes # (M) 0.82 k/uL (0); Myelocytes % 3 %; Nucleated Red Blood Cells 0 /100 WBC (0-0)
[2019-05-17 15:07] LABS: Band Neutrophils % 11 %; Lymphocytes # (M) 0.27 k/uL (1.0-4.8); Metamyelocytes # (M) 2.74 k/uL (0); Metamyelocytes % 10 %; Monocytes # (M) 1.64 k/uL (0-1.0); Neutrophils % (M) 71 %; Total Cells Counted 200
[2019-05-17 15:08] LABS: Toxic Granulation Present; Toxic Vacuolation Present
[2019-05-17] MEDS ORDERED: cefTRIAXone IN SWFI 1,000 MG/10 ML SYRINGE IVP STA (15:21)
[2019-05-17] MEDS ORDERED: SODIUM CHLORIDE 0.9% 500 ML 500 ML IV ONE (15:23)
[2019-05-17] MEDS ORDERED: SODIUM CHLORIDE 0.9% 2,000 ML IV ONE (15:23)
[2019-05-17] MEDS ORDERED: VANCOMYCIN IV PER PHARMACY 1 EACH MISC MISCELLANE PRN (16:30)
[2019-05-17] MEDS ORDERED: VANCOMYCIN 1,500 MG in SODIUM CHLORIDE 0.9% 250 ML IVPB ONE (17:00)
[2019-05-17 17:12] LABS: Amorphous Sediment,Urine Rare /hpf; Appearance,Urine Cloudy (Clear); Bilirubin,Urine Negative (Negative); Blood,Urine Small (Negative); Color,Urine Yellow; Glucose,Urine (UA) Negative (Negative); Ketones,Urine Negative (Negative); Leukocyte Esterase,Urine Negative (Negative); Mucus,Urine Rare /hpf; Nitrite,Urine Negative (Negative); Protein,Urine 1+ (Negative); RBC,Urine 13 /hpf (0-5); Specific Gravity,Urine 1.021 (1.001-1.035); Squamous Epithelial Cell,Urine <1 /hpf (0-4); Urobilinogen,Urine <2.0 mg/dL (<2.0); WBC,Urine 5 /hpf (0-5)
[2019-05-17] MEDS ORDERED: AZITHROMYCIN 500 MG in SODIUM CHLORIDE 0.9% 250 ML IVPB STA (17:21)
[2019-05-17] MEDS ORDERED: HEPARIN SODIUM,PORCINE 10,000 UNIT/ML 1 ML VIAL IV ONE (17:46)
[2019-05-17] MEDS ORDERED: HEPARIN SOD,PORK IN 0.45% NACL 25,000 UNIT in 0.45% NACL 1 250ML.BAG IV SCH ×2 (18:00→22:30)
[2019-05-17] MEDS ORDERED: ONDANSETRON 4 MG/2 ML VIAL IVP STA (19:30)
--- NOTE | 2019-05-17 19:39 | NM ---
EXAMINATION TYPE: NM pul vent and perfuse DATE OF EXAM: 05/17/2019 COMPARISON: NONE HISTORY: D-dimer 32, shortness of breath TECHNIQUE: Utilizing inhalation of 64.8 mCi Tc 99m DTPA aerosol and intravenous injection of 5.3 mCi of Tc 99m MAA, ventilation and perfusion images are acquired post injection in multiple projections. FINDINGS: Normal radiotracer distribution is noted in the lungs. There is no evidence of mismatched defects. IMPRESSION: Normal ventilation/perfusion scan.
[2019-05-17] MEDS ORDERED: SODIUM CHLORIDE 0.9% 1,000 ML IV ONE (20:09)
[2019-05-17] MEDS ORDERED: SODIUM CHLORIDE 0.9% 1,000 ML IV SCH (20:45)
[2019-05-17 21:31] LABS: Glucose,Whole Blood 72 mg/dL (75-99)
[2019-05-17] MEDS ORDERED: HEPARIN SODIUM,PORCINE 5,000 UNIT/ML 1 ML VIAL IV PRN (22:30)
[2019-05-17] MEDS ORDERED: HEPARIN SODIUM,PORCINE 5,000 UNIT/ML 1 ML VIAL IV ONE (22:30)
[2019-05-17] MEDS ORDERED: FUROSEMIDE 40 MG TAB PO PRN (22:34)
--- NOTE | 2019-05-17 23:04 | P.HPIM ---
History of Present Illness H&P Date: 05/17/19 Chief Complaint: Sepsis, chest pain, shortness of breath, advance cardiomyop athy, and A. fib 54-year-old male one of Dr. Montesinos's patient with past medical history of CAD, recent history of A. fib with RVR post cardioversion after transesophageal echocardiogram done in early April, history of severe COPD with FEV1 57 percentile seen pulmonary regular basis. Also patient is known to have history of CAD post CABG 5 vessel back in 2006 with angioplasty time to done since. Patient had recent history of non-ST LA with heart catheter done by Dr. Ga in March found to have severe triple vessel coronary artery disease with Patent ramus intermedius stent patent saphenous vein graft to the obtuse marginal branch patent MAE to the LAD but chronically occluded saphenous vein graft to the right coronary artery recommendation for medical management at this time and ejection fraction via echocardiogram was found to be 40-45 percentile only with severe concentric left ventricular hypertrophy with mild to moderate mitral regurgitation and mild tricuspid regurgitation. Patient was hospitalized in 04/24/2019 and end up going for transesophageal echocardiogram and cardioversion was done patient was started on anticoagulation with Eliquis along with beta aracely kept his pulse rate in the 60s and 70s. Patient apparently has not been taking his medication for the last 2-3 days he developed to have worsening shortness of breath and sharp left sided chest pain on and off worsening with exertion was associated with cough low-grade temperature patient's symptoms was a lot worse at nighttime he call his PCP and was instructed to go to the emergency department after the urgent care where influenza test was done and came back negative patient presented to the emergency department continue to be very symptomatic low-grade temperature with the blood pressure slightly bit low white blood cell was 27,000 left shift his troponin was quite but elevated CRP was 172 d-dimer was quite elevated as well and patient was in acute kidney failure. His creatinine is up to 2.1 from 1.0 and last admission chest x-ray showed cuffing around the bronchial area consi stent with severe bronchitis with no clear infiltrate at the time. With his elevated d-dimer and VQ scan was performed and showed no pulmonary embolism at the time. Patient lactic acid was 4.7 was started on IV antibiotic and hydration no source of infection at this point was found his COVID-19 test was performed and patient was kept in isolation and admitted to the hospital for the above problem. Review of Systems CONSTITUTIONAL: Well-developed no acute respiratory distress. EYES: No icterus sclerae, no conjunctivitis. EARS, NOSE, MOUTH, THROAT, and FACE: No sore throat, lymphadenopathy, carotid bruits or deformity. RESPIRATORY: Positive chest pain, shortness of breath, cough wheezes. CARDIOVASCULAR: Positive PND orthopnea palpitation GASTROINTESTINAL: Positive abdominal pain nausea with no vomiting positive decrease of appetite with generalized weakness. GENITOURINARY: Negative for Hematuria or UTI, no kidney stones. INTEGUMENT/BREAST: Negative for any muscular injury with mild osteoarthritis.. HEMATOLOGIC/LYMPHATIC: Negative for bleed or purpura. MUSCULOSKELTAL: Negative for Myalgia or arthralgia. NEURLOGICAL: No LOC, Sz or syncope, blurred vision dizziness or abnormality.. BEHAVIORAL/PSYCH: Negative. ENDOCRINE: Negative. Past Medical History Past Medical History: Asthma, Coronary Artery Disease (CAD), Chest Pain / Angina, Diabetes Mellitus, Deep Vein Thrombosis (DVT), Hyperlipidemia, Hypertension, Myocardial Infarction (LA), Sleep Apnea/CPAP/BIPAP Additional Past Medical History / Comment(s): Obstructive sleep apnea CPAP, bronchitis, IDDM type II, DVT L leg, cellulitis L leg 2012 cellulitis L Arm 2017, diabetic neuropathy affects feet and hands, chronic kidney disease stage II Last Myocardial Infarction Date:: 06/23/13 History of Any Multi-Drug Resistant Organisms: Acinetobacter (MDRO), MRSA Date of last positivie culture/infection: 08/2014 MDRO Source:: abdomen around navel Past Surgical History: Back Surgery, Coronary Bypass/CABG, Heart Ankita terization, Heart Catheterization With Stent, Hernia Repair Additional Past Surgical History / Comment(s): Cardiac caths, PCI with stents (4total), 2006 CABG 6 vessels, spinal fusion L4-L5, fasciotomy left thigh, bilateral inguinal hernia repairs, I&D L forearm with dehisence then compartment syndrome with fasciotomy Left forearm - June 2016 Past Anesthesia/Blood Transfusion Reactions: No Reported Reaction Date of Last Stent Placement:: 08/28/15 Past Psychological History: No Psychological Hx Reported Smoking Status: Never smoker Past Alcohol Use History: None Reported Past Drug Use History: None Reported - Past Family History Brother(s) Additional Family Medical History / Comment(s): Patient has 1 brother and 1 sister with no major medical problems. Mother Family Medical History: Congestive Heart Failure (CHF), Diabetes Mellitus Additional Family Medical History / Comment(s): Mother at the age of 84 from with history of chronic renal disease stage. Father Family Medical History: COPD, Coronary Artery Disease (CAD), Myocardial Infarction (LA) Additional Family Medical History / Comment(s): Father of a LA at the age of 60 yrs with history of COPD. Sister(s) Family Medical History: Rheumatoid Arthritis (RA) Additional Family Medical History / Comment(s): Patient has 1 sister with no major medical problems. Medications and Allergies Home Medications Medication Instructions Recorded Confirmed Type Ergocalciferol [Vitamin D2 50,000 unit PO Q14D 07/02/16 05/17/19 History (DRISDOL)] Multivitamins, Thera [Multivitamin 1 tab PO DAILY 12/13/16 05/17/19 History (formulary)] Lisinopril 40 mg PO DAILY 04/12/19 05/17/19 History Apixaban [Eliquis] 5 mg PO BID #60 tab 04/14/19 05/17/19 Rx Aspirin 81 mg PO DAILY #30 chewable 04/14/19 05/17/19 Rx Atorvastatin [Lipitor] 80 mg PO HS #30 tab 04/14/19 05/17/19 Rx Furosemide [Lasix] 40 mg PO DAILY PRN #30 tab 04/14/19 05/17/19 Rx Gabapentin [Neurontin] 200 mg PO BID #60 cap 04/14/19 05/17/19 Rx Insulin Aspart [NovoLOG Flexpen] 0 units SQ ACHS 30 Days pen 04/14/19 05/17/19 Rx Insulin Glargine,Hum.rec.anlog 30 unit SQ HS #1 pen 04/14/19 05/17/19 Rx [Basaglar Kwikpen U-100] Isosorbide Mononitrate ER [Imdur] 30 mg PO DAILY #30 tab.er.24h 04/14/19 05/17/19 Rx Metoprolol Tartrate [Lopressor] 100 mg PO BID #60 tab 04/14/19 05/17/19 Rx Potassium Chloride ER [K-Dur 10] 10 meq PO DAILY #30 tab 04/14/19 05/17/19 Rx cloNIDine HCL [Catapres] 0.1 mg PO BID #60 tab 04/14/19 05/17/19 Rx metFORMIN HCL [Glucophage] 1,000 mg PO BID #60 tab 04/14/19 05/17/19 Rx hydrALAZINE HCL [Apresoline] 75 mg PO TID #270 tab 04/25/19 05/17/19 Rx Allergies Allergy/AdvReac Type Severity Reaction Status Date / Time adhesive tape Allergy Severe Rash/Hives Verified 05/17/19 19:56 vancomycin Allergy Mild Rash/Hives Verified 05/17/19 19:56 Physical Exam Vitals: Vital Signs Temp Pulse Resp BP Pulse Ox 05/17/19 20:30 85 18 100 05/17/19 20:00 87 16 147/66 100 05/17/19 19:30 90 21 99 05/17/19 18:30 110/64 05/17/19 18:00 89 33 H 109/71 05/17/19 17:30 87 21 116/80 05/17/19 17:00 85 29 H 106/61 05/17/19 16:30 84 11 L 99/63 05/17/19 16:00 86 16 100/72 99 05/17/19 15:45 87 17 100/72 99 05/17/19 15:30 87 18 96/63 100 05/17/19 15:15 90 18 96/63 99 05/17/19 15:00 89 16 96/62 100 05/17/19 14:45 84 16 96/62 91 L 05/17/19 14:30 82 16 93/66 98 05/17/19 14:22 98 05/17/19 13:52 98.8 F 83 18 96/58 99 Intake and Output 05/17/19 05/17/19 05/17/19 06:59 14:59 22:59 Other: Weight 79.379 kg General Appearance: Alert, cooperative, no distress, appears stated age. Neck HEENT: Supple, no lymphadenopathy, no thyroid enlargement, no carotid bruits. Lungs: Decreased breath some bilaterally with fine rhonchi has mild expiratory wheezes with slight crackles in the left base. Chest Wall: Decrease expansion with deep inspiration no tenderness and no deformity was found on exam, no costochondral pain or discomfort. Heart: Irregular rhythm and rate , S1, S2 positive history positive JVD with systolic murmur. Back: Symmetric, no curvature, ROM normal, no CVA tenderness. Abdomen: Soft, non-tender, bowel sounds active all four quadrants, no masses, no organomegaly. Extremities: Trace edema decreased positive sinus pedis bilaterally with slight discoloration below the knee. Pulses: 2+ and symmetric. Skin: Skin color, texture, tugor normal, no rashes or lesions. Neurologic: Alert oriented x3 cranial nerves II through XII intact, no motor deficit, no abnormal balance or gait. Results CBC & Chem 7: 05/17/19 14:29 05/17/19 14:29 Labs: Abnormal Lab Results - Last 24 Hours (Table) 05/17/19 05/17/19 05/17/19 Range/Units 14:29 14:29 14:29 WBC 27.4 H (3.8-10.6) k/uL Neutrophils # (Manual) 22.40 H (1.3-7.7) k/uL Lymphocytes # (Manual) 0.27 L (1.0-4.8) k/uL Monocytes # (Manual) 1.64 H (0-1.0) k/uL Metamyelocytes # (Man) 2.74 H (0) k/uL Myelocytes # (Manual) 0.82 H (0) k/uL PT 13.3 H (9.0-12.0) sec INR 1.3 H (<1.2) APTT 32.4 H (22.0-30.0) sec D-Dimer (<0.60) mg/L FEU Sodium 133 L (137-145) mmol/L Carbon Dioxide 21 L (22-30) mmol/L BUN 44 H (9-20) mg/dL Creatinine 2.10 H (0.66-1.25) mg/dL Glucose 145 H (74-99) mg/dL POC Glucose (mg/dL) (75-99) mg/dL Plasma Lactic Acid Oskar (0.7-2.0) mmol/L Calcium 8.2 L (8.4-10.2) mg/dL AST 78 H (17-59) U/L ALT 52 H (4-49) U/L Troponin I (0.000-0.034) ng/mL C-Reactive Protein (<10.0) mg/L Urine Protein (Negative) Urine Blood (Negative) Urine RBC (0-5) /hpf Amorphous Sediment (None) /hpf Urine Mucus (None) /hpf 05/17/19 05/17/19 05/17/19 Range/Units 14:29 14:29 14:29 WBC (3.8-10.6) k/uL Neutrophils # (Manual) (1.3-7.7) k/uL Lymphocytes # (Manual) (1.0-4.8) k/uL Monocytes # (Manual) (0-1.0) k/uL Metamyelocytes # (Man) (0) k/uL Myelocytes # (Manual) (0) k/uL PT (9.0-12.0) sec INR (<1.2) APTT (22.0-30.0) sec D-Dimer 34.62 H (<0.60) mg/L FEU Sodium (137-145) mmol/L Carbon Dioxide (22-30) mmol/L BUN (9-20) mg/dL Creatinine (0.66-1.25) mg/dL Glucose (74-99) mg/dL POC Glucose (mg/dL) (75-99) mg/dL Plasma Lactic Acid Oskar 5.8 H* (0.7-2.0) mmol/L Calcium (8.4-10.2) mg/dL AST (17-59) U/L ALT (4-49) U/L Troponin I 1.550 H* (0.000-0.034) ng/mL C-Reactive Protein (<10.0) mg/L Urine Protein (Negative) Urine Blood (Negative) Urine RBC (0-5) /hpf Amorphous Sediment (None) /hpf Urine Mucus (None) /hpf 05/17/19 05/17/19 05/17/19 Range/Units 14:29 16:55 19:25 WBC (3.8-10.6) k/uL Neutrophils # (Manual) (1.3-7.7) k/uL Lymphocytes # (Manual) (1.0-4.8) k/uL Monocytes # (Manual) (0-1.0) k/uL Metamyelocytes # (Man) (0) k/uL Myelocytes # (Manual) (0) k/uL PT (9.0-12.0) sec INR (<1.2) APTT (22.0-30.0) sec D-Dimer (<0.60) mg/L FEU Sodium (137-145) mmol/L Carbon Dioxide (22-30) mmol/L BUN (9-20) mg/dL Creatinine (0.66-1.25) mg/dL Glucose (74-99) mg/dL POC Glucose (mg/dL) (75-99) mg/dL Plasma Lactic Acid Oskar 4.7 H* (0.7-2.0) mmol/L Calcium (8.4-10.2) mg/dL AST (17-59) U/L ALT (4-49) U/L Troponin I (0.000-0.034) ng/mL C-Reactive Protein 172.0 H (<10.0) mg/L Urine Protein 1+ H (Negative) Urine Blood Small H (Negative) Urine RBC 13 H (0-5) /hpf Amorphous Sediment Rare H (None) /hpf Urine Mucus Rare H (None) /hpf 05/17/19 Range/Units 21:27 WBC (3.8-10.6) k/uL Neutrophils # (Manual) (1.3-7.7) k/uL Lymphocytes # (Manual) (1.0-4.8) k/uL Monocytes # (Manual) (0-1.0) k/uL Metamyelocytes # (Man) (0) k/uL Myelocytes # (Manual) (0) k/uL PT (9.0-12.0) sec INR (<1.2) APTT (22.0-30.0) sec D-Dimer (<0.60) mg/L FEU Sodium (137-145) mmol/L Carbon Dioxide (22-30) mmol/L BUN (9-20) mg/dL Creatinine (0.66-1.25) mg/dL Glucose (74-99) mg/dL POC Glucose (mg/dL) 72 L (75-99) mg/dL Plasma Lactic Acid Oskar (0.7-2.0) mmol/L Calcium (8.4-10.2) mg/dL AST (17-59) U/L ALT (4-49) U/L Troponin I (0.000-0.034) ng/mL C-Reactive Protein (<10.0) mg/L Urine Protein (Negative) Urine Blood (Negative) Urine RBC (0-5) /hpf Amorphous Sediment (None) /hpf Urine Mucus (None) /hpf Thrombosis Risk Factor Assmnt - DVT/VTE Prophylaxis DVT/VTE Prophylaxis: Pharmacologic Prophylaxis ordered, Mechanical Prophylaxis ordered Assessment and Plan Plan: 1 sepsis: Not clear etiology or source so far, patient was giving 1 g of R ocephin and started on azithromycin 15 mg of vancomycin was giving, culture was performed urine was negative at the time patient will be hydrated repeat d-dimer new morning we'll consult infectious disease and admit patient for the above problem. 2 severe dyspnea and shortness of breath: Combination of congestive heart failure, A. fib and COPD. 3 COPD: With mild excessive patient will consult pulmonary admit patient to the hospital continue O2 continue updraft treatment will hold off on steroids for now. 4 possible Covid 19: PCR was done in demurs department test is negative will continue current precaution and isolation for now to the test is complete. 5 acute kidney failure: Not clear etiology more than side effect of medication, hypotension and dehydration continue to watch for any significant decrease in blood pressure, continue hydration will repeat BUN/creatinine in the morning and ultrasound of the kidney will be done. 6 elevated d-dimer: With negative for thrombus event at this point no sign of pulmonary embolism was found on VQ scan. 7 elevated troponin with possible non-ST LA: Recent cardioversion and cardiac testing with recent heart catheter done by cardiology in March and known chronic occlusion on to the graft which patient has been on medical management, will consult cardiology. 8 cardiomyopathy: Most likely ischemic with low ejection fraction at 35 per centile patient is on medical management currently we hydrate patient but resume diuretics as soon as we can. Continue patient on metoprolol isosorbide and lisinopril. 9 COPD with FEV1 at 35 percentile patient has been seen pulmonary regular basis continue O2 continue updraft treatment versus MDI and steroid inhaler at this point. 10 hypertension: Has been on hydralazine 75 mg 3 times a day, lisinopril 40 mg a day and metoprolol 100 mg twice a day resume medication when the blood pressure is better. 11 recent history of A. fib with RVR: Post cardioversion done by cardiology patient was placed some but beta aracely did not require any other antiarrhythmic but was started on anticoagulation and patient apparently is not taking it for the last 2-3 days because he felt quite bit sick. 12 type 2 diabetes: Has been on insulin and oral agents will hold metformin because of the worsening kidney function at this point will continue short and long-acting insulin titrate dose as needed. 13 obstructive sleep apnea: Patient has been on CPAP. 14 DVT prophylaxis: Patient was placed on heparin drip until his back and he is on anticoagulation and after seeing cardiology tomorrow. 15 GI prophylaxis: Patient will be on pantoprazole 40 mg daily. Ex CODE STATUS: Full code. Admit patient to inpatient status for more than 2 night stay.
[2019-05-18] MEDS: ZOLPIDEM 5 MG TAB PO SCH ×2 (01:14→22:21)
[2019-05-18] MEDS: ACETAMINOPHEN TAB 500 MG TAB PO PRN ×2 (01:14→22:22)
[2019-05-18 06:10] LABS: Basophils % (A) 0 %; Eosinophils # (A) 0.1 k/uL (0-0.7); Eosinophils % (A) 1 %; HCT 39.4 % (39.0-53.0); Lymphocytes # (A) 1.1 k/uL (1.0-4.8); Lymphocytes % (A) 7 %; MCH 27.9 pg (25.0-35.0); MCV 84.8 fL (80.0-100.0); Mean Platelet Volume 9.5; Monocytes # (A) 0.9 k/uL (0-1.0); Monocytes % (A) 6 %; Neutrophils % (A) 85 %; Platelet Count 109 k/uL (150-450); RBC 4.65 m/uL (4.30-5.90); RDW 14.3 % (11.5-15.5); WBC 16.5 k/uL (3.8-10.6)
[2019-05-18 06:33] LABS: Calcium 7.3 mg/dL (8.4-10.2); Potassium 3.6 mmol/L (3.5-5.1); Total Bilirubin 1.2 mg/dL (0.2-1.3); Total Protein 5.6 g/dL (6.3-8.2)
[2019-05-18 07:02] LABS: Glucose,Whole Blood 104 mg/dL (75-99)
[2019-05-18] MEDS: INSULIN ASPART (NovoLOG) 100 UNIT/ML VIAL SQ SCH ×4 (07:02→22:21)
[2019-05-18] MEDS: PANTOPRAZOLE 40 MG TABLET PO SCH (07:02)
[2019-05-18] MEDS ORDERED: INSULIN ASPART SQ SCH (07:30)
[2019-05-18] MEDS: MULTIVITAMINS, THERA 1 EACH TAB PO SCH (08:12)
[2019-05-18] MEDS: METOPROLOL TARTRATE 50 MG TAB PO SCH ×2 (08:12→19:44)
[2019-05-18] MEDS: ASPIRIN 81 MG PO SCH (08:12)
[2019-05-18] MEDS: POTASSIUM CHLORIDE ER 10 MEQ TAB.ER.PRT PO SCH (08:12)
[2019-05-18] MEDS: LISINOPRIL 20 MG TAB PO SCH (08:12)
[2019-05-18] MEDS: cloNIDine HCL 0.1 MG TAB PO SCH ×2 (08:12→19:44)
[2019-05-18] MEDS: hydrALAZINE HCL 25 MG TAB PO SCH ×3 (08:13→22:21)
[2019-05-18] MEDS: ISOSORBIDE MONONITRATE ER 30 MG TAB.ER.24H PO SCH (08:13)
[2019-05-18] MEDS: GABAPENTIN 100 MG CAP PO SCH ×2 (08:13→19:44)
--- NOTE | 2019-05-18 09:53 | ECHOF ---
Referral Reason: MEASUREMENTS -------- HEIGHT: 170.2 cm WEIGHT: 79.4 kg BP: RVIDd: 3.9 cm (< 3.3) IVSd: 1.3 cm (0.6 - 1.1) LVIDd: 3.9 cm (3.9 - 5.3) LVPWd: 1.6 cm (0.6 - 1.1) IVSs: 1.7 cm LVIDs: 3.1 cm LVPWs: 1.9 cm LAESV Index (A-L): 51.15 ml/m Ao Diam: 3.1 cm (2.0 - 3.7) AV Cusp: 1.8 cm (1.5 - 2.6) LA Diam: 4.3 cm (2.7 - 3.8) MV EXCURSION: 19.436 mm (> 18.000) MV EF SLOPE: 150 mm/s (70 - 150) EPSS: 0.2 cm MV E Ulices: 1.05 m/s MV DecT: 124 ms MV A Ulices: 0.44 m/s MV E/A Ratio: 2.40 RAP: 15.00 mmHg RVSP: 59.17 mmHg TAPSE: 10.54 mm FINDINGS -------- Sinus rhythm. This was a technically good study. The left ventricular size is normal. There is moderate concentric left ventricular hypertrophy. O verall left ventricular systolic function is mild-moderately impaired with, an EF between 40 - 45 %. Increased LAP. Grade 3 Diastolic Dysfunction. The right ventricle is moderately enlarged. The right ventricular systolic function is severely imp aired. LA is severely dilated >40 ml/m2 RA appears enlarged. The aortic valve is trileaflet and appears structurally normal. The mitral valve is normal. The mitral valve leaflets are mildly thickened. Gcuuemvc-pj-bnlbyt mi tral regurgitation is present , predominately a posteriorly directed jet. The tricuspid valve appears structurally normal. Mild tricuspid regurgitation present. There is m oderate pulmonary hypertension. The right ventricular systolic pressure, as measured by Doppler, is 59.17mmHg. Trace/mild (physiologic) pulmonic regurgitation. The aortic root size is normal. The inferior vena cava is mildly dilated. There is a trivial pericardial effusion present. CONCLUSIONS -------- 1. Sinus rhythm. 2. This was a technically good study. 3. The left ventricular size is normal. 4. There is moderate concentric left ventricular hypertrophy. 5. Overall left ventricular systolic function is mild-moderately impaired with, an EF between 40 - 45 %. 6. Increased LAP. Grade 3 Diastolic Dysfunction. 7. The right ventricle is moderately enlarged. 8. The right ventricular systolic function is severely impaired. 9. LA is severely dilated >40 ml/m2 10. RA appears enlarged. 11. The aortic valve is trileaflet and appears structurally normal. 12. The mitral valve is normal. 13. The mitral valve leaflets are mildly thickened. 14. Mpehcqpe-an-ytwuic mitral regurgitation is present. 15. , predominately a posteriorly directed jet. 16. The tricuspid valve appears structurally normal. 17. Mild tricuspid regurgitation present. 18. There is moderate pulmonary hypertension. 19. The right ventricular systolic pressure, as measured by Doppler, is 59.17mmHg. 20. Trace/mild (physiologic) pulmonic regurgitation. 21. The aortic root size is normal. 22. The inferior vena cava is mildly dilated. 23. There is a trivial pericardial effusion present. LABORER SALVAGE: Juanis Ching RDCS
[2019-05-18 11:47] LABS: Glucose,Whole Blood 209 mg/dL (75-99)
[2019-05-18] MEDS: VANCOMYCIN 1,500 MG in SODIUM CHLORIDE 0.9% 250 ML IVPB SCH (12:52)
[2019-05-18] MEDS: HEPARIN SODIUM,PORCINE 5,000 UNIT/ML 1 ML VIAL SQ SCH ×2 (12:52→19:44)
--- NOTE | 2019-05-18 13:12 | P.PN ---
Subjective Progress Note Date: 05/18/19 54-year-old male one of Dr. Montesinos's patient with past medical history of CAD, recent history of A. fib with RVR post cardioversion after transesophageal echocardiogram done in early April, history of severe COPD with FEV1 57 percentile seen pulmonary regular basis. Also patient is known to have history of CAD post CABG 5 vessel back in 2006 with angioplasty time to done since. Patient had recent history of non-ST PR with heart catheter done by Dr. Ga in March found to have severe triple vessel coronary artery disease with Patent ramus intermedius stent patent saphenous vein graft to the obtuse marginal branch patent MAE to the LAD but chronically occluded saphenous vein graft to the right coronary artery recommendation for medical management at this time and ejection fraction via echocardiogram was found to be 40-45 percentile only with severe concentric left ventricular hypertrophy with mild to moderate mitral regurgitation and mild tricuspid regurgitation. Patient was hospitalized in 04/24/2019 and end up going for transesophageal echocardiogram and cardioversion was done patient was started on anticoagulation with Eliquis along with beta aracely kept his pulse rate in the 60s and 70s. Patient apparently has not been taking his medication for the last 2-3 days he developed to have worsening shortness of breath and sharp left sided chest pain on and off worsening with exertion was associated with cough low-grade temperature patient's symptoms was a lot worse at nighttime he call his PCP and was instructed to go to the emergency department after the urgent care where influenza test was done and came back negative patient presented to the emergency department continue to be very symptomatic low-grade temperature with the blood pressure slightly bit low white blood cell was 27,000 left shift his troponin was quite but elevated CRP was 172 d-dimer was quite elevated as well and patient was in acute kidney failure. His creatinine is up to 2.1 from 1.0 a nd last admission chest x-ray showed cuffing around the bronchial area consistent with severe bronchitis with no clear infiltrate at the time. With his elevated d-dimer and VQ scan was performed and showed no pulmonary embolism at the time. Patient lactic acid was 4.7 was started on IV antibiotic and hydration no source of infection at this point was found his COVID-19 test was performed and patient was kept in isolation and admitted to the hospital for the above problem. 05/17: Patient has been afebrile, heart rate 88, blood pressure 155/95 before medications, pulse ox 97% on 3 L nasal cannula. ProBNP 5130. Repeat troponins 1.050, 0.869. Sodium 135, BUN 46, creatinine 1.51. Total bilirubin 1.2, AST 71, ALT 53, alkaline phosphatase 117. Lactic acid down to 1.6. WBC 16.5. COVID-19 results pending. Stool for C. diff is on collected patient is currently on heparin drip until seen by cardiology. Blood culture is status received. Consults are in place for pulmonary medicine, cardiology and infectious disease. color television console monitor is sinus rhythm. Objective - Vital Signs Vital signs: Vital Signs Temp 97.8 F 05/18/19 05:00 Pulse 86 05/18/19 05:00 Resp 18 05/18/19 05:00 BP 129/75 05/18/19 05:00 Pulse Ox 98 05/18/19 05:00 Intake & Output 05/17/19 05/18/19 05/18/19 18:59 06:59 18:59 Intake Total 1040.246 Balance 1040.246 Weight 79.379 kg 76.2 kg Intake: Intake, IV Titration 1040.246 Amount Heparin Sod,Pork in 0.45% 490.246 NaCl 25,000 unit In 0.45 % NaCl 1 250ml.bag @ 12 UNITS/KG/HR 9.525 mls/hr IV .Q24H [facility] Rx#: [id number] Sodium Chloride 0.9% 1, 550 000 ml @ 100 mls/hr IV . Q10H [facility] Rx#:[id number] Other: # Voids 2 - Exam Review of Systems CONSTITUTIONAL: Well-developed no acute respiratory distress. EYES: No icterus sclerae, no conjunctivitis. EARS, NOSE, MOUTH, THROAT, and FACE: No sore throat, lymphadenopathy, carotid bruits or deformity. RESPIRATORY: Positive chest pain, shortness of breath, cough wheezes, shortness breath with activity. CARDIOVASCULAR: Positive PND orthopnea palpitation GASTROINTESTINAL: Positive abdominal pain nausea with no vomiting positive decrease of appetite with generalized weakness. GENITOURINARY: Negative for Hematuria or UTI, no kidney stones. INTEGUMENT/BREAST: Negative for any muscular injury with mild osteoarthritis.. HEMATOLOGIC/LYMPHATIC: Negative for bleed or purpura. MUSCULOSKELTAL: Negative for Myalgia or arthralgia. NEURLOGICAL: No LOC, Sz or syncope, blurred vision dizziness or abnormality.. BEHAVIORAL/PSYCH: Negative. ENDOCRINE: Negative. Physical examination General Appearance: Alert, cooperative, no distress, appears stated age. Neck HEENT: Supple, no lymphadenopathy, no thyroid enlargement, no carotid bruits. Lungs: Decreased breath some bilaterally with bilateral rhonchi has mild expiratory wheezes with slight crackles in the left base. Chest Wall: Decrease expansion with deep inspiration no tenderness and no deformity was found on exam, no costochondral pain or discomfort. Heart: Irregular rhythm and rate , S1, S2 positive history positive JVD with systolic murmur. Back: Symmetric, no curvature, ROM normal, no CVA tenderness. Abdomen: Soft, non-tender, bowel sounds active all four quadrants, no masses, no organomegaly. Extremities: Trace edema decreased positive sinus pedis bilaterally with slight discoloration below the knee. Pulses: 2+ and symmetric. Skin: Skin color, texture, tugor normal, no rashes or lesions. Neurologic: Alert oriented x3 cranial nerves II through XII intact, no motor deficit, no abnormal balance or gait. - Labs CBC & Chem 7: 05/18/19 05:47 05/18/19 05:47 Labs: Abnormal Lab Results - Last 24 Hours (Table) 05/17/19 05/17/19 05/17/19 Range/Units 14:29 14:29 14:29 WBC 27.4 H (3.8-10.6) k/uL Plt Count (150-450) k/uL Neutrophils # (1.3-7.7) k/uL Neutrophils # (Manual) 22.40 H (1.3-7.7) k/uL Lymphocytes # (Manual) 0.27 L (1.0-4.8) k/uL Monocytes # (Manual) 1.64 H (0-1.0) k/uL Metamyelocytes # (Man) 2.74 H (0) k/uL Myelocytes # (Manual) 0.82 H (0) k/uL PT 13.3 H (9.0-12.0) sec INR 1.3 H (<1.2) APTT 32.4 H (22.0-30.0) sec D-Dimer (<0.60) mg/L FEU Sodium 133 L (137-145) mmol/L Carbon Dioxide 21 L (22-30) mmol/L BUN 44 H (9-20) mg/dL Creatinine 2.10 H (0.66-1.25) mg/dL Glucose 145 H (74-99) mg/dL POC Glucose (mg/dL) (75-99) mg/dL Plasma Lactic Acid Oskar (0.7-2.0) mmol/L Calcium 8.2 L (8.4-10.2) mg/dL AST 78 H (17-59) U/L ALT 52 H (4-49) U/L Troponin I (0.000-0.034) ng/mL C-Reactive Protein (<10.0) mg/L Total Protein (6.3-8.2) g/dL Albumin (3.5-5.0) g/dL Urine Protein (Negative) Urine Blood (Negative) Urine RBC (0-5) /hpf Amorphous Sediment (None) /hpf Urine Mucus (None) /hpf 05/17/19 05/17/19 05/17/19 Range/Units 14:29 14:29 14:29 WBC (3.8-10.6) k/uL Plt Count (150-450) k/uL Neutrophils # (1.3-7.7) k/uL Neutrophils # (Manual) (1.3-7.7) k/uL Lymphocytes # (Manual) (1.0-4.8) k/uL Monocytes # (Manual) (0-1.0) k/uL Metamyelocytes # (Man) (0) k/uL Myelocytes # (Manual) (0) k/uL PT (9.0-12.0) sec INR (<1.2) APTT (22.0-30.0) sec D-Dimer 34.62 H (<0.60) mg/L FEU Sodium (137-145) mmol/L Carbon Dioxide (22-30) mmol/L BUN (9-20) mg/dL Creatinine (0.66-1.25) mg/dL Glucose (74-99) mg/dL POC Glucose (mg/dL) (75-99) mg/dL Plasma Lactic Acid Oskar 5.8 H* (0.7-2.0) mmol/L Calcium (8.4-10.2) mg/dL AST (17-59) U/L ALT (4-49) U/L Troponin I 1.550 H* (0.000-0.034) ng/mL C-Reactive Protein (<10.0) mg/L Total Protein (6.3-8.2) g/dL Albumin (3.5-5.0) g/dL Urine Protein (Negative) Urine Blood (Negative) Urine RBC (0-5) /hpf Amorphous Sediment (None) /hpf Urine Mucus (None) /hpf 05/17/19 05/17/19 05/17/19 Range/Units 14:29 16:55 19:25 WBC (3.8-10.6) k/uL Plt Count (150-450) k/uL Neutrophils # (1.3-7.7) k/uL Neutrophils # (Manual) (1.3-7.7) k/uL Lymphocytes # (Manual) (1.0-4.8) k/uL Monocytes # (Manual) (0-1.0) k/uL Metamyelocytes # (Man) (0) k/uL Myelocytes # (Manual) (0) k/uL PT (9.0-12.0) sec INR (<1.2) APTT (22.0-30.0) sec D-Dimer (<0.60) mg/L FEU Sodium (137-145) mmol/L Carbon Dioxide (22-30) mmol/L BUN (9-20) mg/dL Creatinine (0.66-1.25) mg/dL Glucose (74-99) mg/dL POC Glucose (mg/dL) (75-99) mg/dL Plasma Lactic Acid Oskar 4.7 H* (0.7-2.0) mmol/L Calcium (8.4-10.2) mg/dL AST (17-59) U/L ALT (4-49) U/L Troponin I (0.000-0.034) ng/mL C-Reactive Protein 172.0 H (<10.0) mg/L Total Protein (6.3-8.2) g/dL Albumin (3.5-5.0) g/dL Urine Protein 1+ H (Negative) Urine Blood Small H (Negative) Urine RBC 13 H (0-5) /hpf Amorphous Sediment Rare H (None) /hpf Urine Mucus Rare H (None) /hpf 05/17/19 05/17/19 05/17/19 Range/Units 21:27 22:10 23:23 WBC (3.8-10.6) k/uL Plt Count (150-450) k/uL Neutrophils # (1.3-7.7) k/uL Neutrophils # (Manual) (1.3-7.7) k/uL Lymphocytes # (Manual) (1.0-4.8) k/uL Monocytes # (Manual) (0-1.0) k/uL Metamyelocytes # (Man) (0) k/uL Myelocytes # (Manual) (0) k/uL PT (9.0-12.0) sec INR (<1.2) APTT (22.0-30.0) sec D-Dimer (<0.60) mg/L FEU Sodium (137-145) mmol/L Carbon Dioxide (22-30) mmol/L BUN (9-20) mg/dL Creatinine (0.66-1.25) mg/dL Glucose (74-99) mg/dL POC Glucose (mg/dL) 72 L (75-99) mg/dL Plasma Lactic Acid Oskar 3.7 H* (0.7-2.0) mmol/L Calcium (8.4-10.2) mg/dL AST (17-59) U/L ALT (4-49) U/L Troponin I 1.050 H* (0.000-0.034) ng/mL C-Reactive Protein (<10.0) mg/L Total Protein (6.3-8.2) g/dL Albumin (3.5-5.0) g/dL Urine Protein (Negative) Urine Blood (Negative) Urine RBC (0-5) /hpf Amorphous Sediment (None) /hpf Urine Mucus (None) /hpf 05/18/19 05/18/19 05/18/19 Range/Units 02:24 05:47 05:47 WBC 16.5 H (3.8-10.6) k/uL Plt Count 109 L (150-450) k/uL Neutrophils # 14.0 H (1.3-7.7) k/uL Neutrophils # (Manual) (1.3-7.7) k/uL Lymphocytes # (Manual) (1.0-4.8) k/uL Monocytes # (Manual) (0-1.0) k/uL Metamyelocytes # (Man) (0) k/uL Myelocytes # (Manual) (0) k/uL PT (9.0-12.0) sec INR (<1.2) APTT (22.0-30.0) sec D-Dimer (<0.60) mg/L FEU Sodium 135 L (137-145) mmol/L Carbon Dioxide (22-30) mmol/L BUN 46 H (9-20) mg/dL Creatinine 1.51 H (0.66-1.25) mg/dL Glucose 116 H (74-99) mg/dL POC Glucose (mg/dL) (75-99) mg/dL Plasma Lactic Acid Oskar (0.7-2.0) mmol/L Calcium 7.3 L (8.4-10.2) mg/dL AST 71 H (17-59) U/L ALT 53 H (4-49) U/L Troponin I 0.869 H* (0.000-0.034) ng/mL C-Reactive Protein (<10.0) mg/L Total Protein 5.6 L (6.3-8.2) g/dL Albumin 3.0 L (3.5-5.0) g/dL Urine Protein (Negative) Urine Blood (Negative) Urine RBC (0-5) /hpf Amorphous Sediment (None) /hpf Urine Mucus (None) /hpf 05/18/19 05/18/19 Range/Units 05:47 07:00 WBC (3.8-10.6) k/uL Plt Count (150-450) k/uL Neutrophils # (1.3-7.7) k/uL Neutrophils # (Manual) (1.3-7.7) k/uL Lymphocytes # (Manual) (1.0-4.8) k/uL Monocytes # (Manual) (0-1.0) k/uL Metamyelocytes # (Man) (0) k/uL Myelocytes # (Manual) (0) k/uL PT (9.0-12.0) sec INR (<1.2) APTT 52.9 H (22.0-30.0) sec D-Dimer (<0.60) mg/L FEU Sodium (137-145) mmol/L Carbon Dioxide (22-30) mmol/L BUN (9-20) mg/dL Creatinine (0.66-1.25) mg/dL Glucose (74-99) mg/dL POC Glucose (mg/dL) 104 H (75-99) mg/dL Plasma Lactic Acid Oskar (0.7-2.0) mmol/L Calcium (8.4-10.2) mg/dL AST (17-59) U/L ALT (4-49) U/L Troponin I (0.000-0.034) ng/mL C-Reactive Protein (<10.0) mg/L Total Protein (6.3-8.2) g/dL Albumin (3.5-5.0) g/dL Urine Protein (Negative) Urine Blood (Negative) Urine RBC (0-5) /hpf Amorphous Sediment (None) /hpf Urine Mucus (None) /hpf Assessment and Plan Plan: 1. Sepsis of unclear etiology. Patient is currently on ceftriaxone and azithromycin and vancomycin. COVID-19 testing is in progress. Consult in place with infectious disease and pulmonary medicine. 2. Severe dyspnea and shortness of breath without acute respiratory failure secondary to accommodation of heart failure, A. fib and COPD. 3. COPD with mild exacerbation. Consult with pulmonary medicine. No steroids started at this time.. 4. Rule out Covid 19. Await testing results. Patient is in isolation. 5. Acute acute kidney failure. Hold metformin, avoid nephrotoxic agents, recheck BMP. 6. Elevated d-dimer with negative VQ scan. 7. Elevated troponin with possible non-ST PR. Recent cardioversion and cardiac testing with recent heart catheter done by cardiology in March and known chronic occlusion on to the graft which patient has been on medical management. Consult cardiology. Continue aspirin 81 mg daily, Lipitor 80 mg at bedtime, Imdur 30 mg daily, Lopressor 100 mg twice daily. 8. Cardiomyopathy: Most likely ischemic with low ejection fraction at 35 percentile. Continue Lopressor 100 mg twice daily, lisinopril 40 mg daily, Imdur, Lasix 40 mg daily as needed. 9. COPD with FEV1 at 35 percentile patient has been seen pulmonary regular basis continue O2 continue updraft treatment versus MDI and steroid inhaler at this point. 10. Hypertension: Has been on hydralazine 75 mg 3 times a day, lisinopril 40 mg a day and metoprolol 100 mg twice a day resume medication when the blood pressure is better. 11. Recent history of A. fib with RVR: Post cardioversion done by cardiology patient was placed some but beta aracely did not require any other antiarrhythmic but was started on anticoagulation and patient apparently is not taking it for the last 2-3 days because he felt quite bit sick. 12. Chronic persistent atrial fibrillation, currently rate controlled. 13. Diabetes mellitus type 2, insulin requiring. Patient states that he normally takes NovoLog 8-10 units before meals and does not do insulin scale. Patient's Levemir will be resumed at home dose and continue NovoLog scale for now. Reassess these in the morning. 13. Obstructive sleep apnea. Continue CPAP. 14. DVT prophylaxis: Patient was placed on heparin drip until his back and he is on anticoagulation and after seeing cardiology tomorrow. 15. GI prophylaxis: Patient will be on pantoprazole 40 mg daily. CODE STATUS: Full code. Discharge plan: home Impression and plan of care have been directed as dictated by the signing physician. Dipika Mendez nurse practitioner acting as scribe for signing physician.
--- NOTE | 2019-05-18 13:34 | CONS ---
CONSULTATION PULMONARY/CRITICAL CARE CONSULTATION: DATE OF CONSULTATION: May 18, 2019 REASON FOR CONSULTATION: Chest pain and shortness of breath. A 54-year-old male who presented to the emergency room and saw Dr. Clark yesterday. He apparently presented with complaints of shortness of breath. He also had sharp left- sided chest pain. The patient states he was also coughing. He was not really producing any phlegm. The chest pain apparently was worse when he was exerting himself. The symptoms began the night before his admission to the emergency room. He apparently went to [facility] and was told to come to the emergency room. He apparently had an influenza test done there and it was negative. The patient was COVID tested in the emergency room yesterday. Dr. Clark called me on the phone and we discussed the patient. Even though the patient had a lot of lab abnormalities, clinically he was stable and it was decided to keep him on the floor. The patient states that he does not smoke cigarettes. Has no history of any lung issues. The patient is feeling a bit better currently than he was when he first came in. MEDICATIONS: His current home medications include vitamin D2, multivitamins, lisinopril, Eliquis, aspirin, Lipitor, Lasix, Neurontin, NovoLog insulin, Imdur, metoprolol, potassium chloride, clonidine, metformin and hydralazine. ALLERGIES: ADHESIVE TAPE and VANCOMYCIN. MEDICAL HISTORY: His medical history is apparently positive for asthma, CAD, chest pain/angina, diabetes mellitus, deep venous thrombosis, hyperlipidemia, hypertension, myocardial infarction, and sleep apnea syndrome for which he uses CPAP. He apparently also has a history of previous episodes of bronchitis. He has had a DVT in the left leg. He also has history of left leg cellulitis. He has a history of diabetic neuropathy as well as stage 2 chronic kidney disease. He has previous history also of multiple infections with methicillin-resistant Staph aureus as well as drug-resistant Acinetobacter. SURGICAL HISTORY: Surgical history includes back surgery, bypass grafting, heart catheterization, stent placement, hernia repair, spinal fusion, left thigh fasciotomy, bilateral inguinal hernia repair, incision and drainage of left forearm, as well as multiple other surgical procedures. SOCIAL HISTORY: Negative for tobacco use. Denies alcohol use or illicit drug use. FAMILY HISTORY: The patient has a history of a brother and a sister without any major medical problems. Mother has a history of diabetes and heart failure and father has a history of COPD, CAD, myocardial infarction. He does have a sister with rheumatoid arthritis as well. REVIEW OF SYSTEMS: CONSTITUTIONAL: Weakness, no fever. NEUROLOGIC: Negative. HEENT: Negative. CARDIOVASCULAR: Sharp chest pain, pleuritic in nature. PULMONARY: Shortness of breath primarily on exertion. : Negative. GI: Negative. RHEUMATOLOGIC: Negative. IMMUNOLOGIC: Negative. ENDOCRINOLOGIC: Negative. DERMATOLOGIC: Negative. PHYSICAL EXAMINATION: VITAL SIGNS: Current vital signs are reviewed. Temperature 98, heart rate 88, respiratory rate 16, blood pressure 155/95, mean 115, room air saturation 96%. GENERAL: He appears in no acute distress. Certainly no respiratory distress. Appears to be relatively stable. HEENT: Examination is grossly unremarkable. Mucous membranes are moist. No oral lesions. NECK: Supple. Full range of motion. No adenopathy. Neck veins are flat. CARDIOVASCULAR: Examination reveals regular rhythm and rate. Heart rate in the mid 80s. S1, S2 normal. No S3, S4 or murmur. LUNGS: Reveal clear breath sounds. No wheezes, rhonchi, or crackles. ABDOMEN: Soft. Bowel sounds are heard. EXTREMITIES: Are intact. No cyanosis, clubbing, or edema. SKIN: Without rash. NEUROLOGIC: Examination is brief but nonfocal. Chest x-ray shows it to be relatively normal chest x-ray. They do mention some peribronchial cuffing but I believe that over stretch. His lung scan was reported as being normal. Microbiologic studies are currently negative. LABS: Labs are reviewed. White count 16.5, down from 27.4, hemoglobin 13, hematocrit 39.4, platelet count 109,000. PT 13.3, INR 1.3 PTT is 52.9, D-dimer 34.62. Sodium 135, potassium 3.6, chloride 107, CO2 of 22. Anion gap is 6. BUN and creatinine were 46 and 1.51. Lactic acid was 3.7 down to 1.6. Calcium 7.3. AST and ALT were 71 and 53. Troponin was 1.050 and then 0.869. C-reactive protein 172. N terminal proBNP 52,700. Urine shows 1+ protein, small blood, 13 RBCs and rare mucus. Coronavirus sampling was sent to the state lab. Influenza A and B studies were negative. MEDICATIONS: Current medications are reviewed. ASSESSMENT: 1. Shortness of breath, sharp pleuritic like chest pain, of unclear etiology. This could relate to a viral pleuritis such as Coxsackie B infection. 2. Elevated troponins, rule out non ST-segment elevation myocardial infarction. 3. No history to suggest intrinsic pulmonary disease. 4. Rule out COVID-19 infection. 5. Vague history of asthma, currently not active. 6. History of coronary artery disease. 7. History of angina pectoris. 8. Diabetes mellitus with diabetic neuropathy. 9. Deep venous thrombosis. 10.Hyperlipidemia. 11.Hypertension. 12.Prior myocardial infarction. 13.Sleep apnea syndrome, currently maintained on CPAP. 14.Chronic kidney disease. 15.Status post bypass grafting. 16.Status post cardiac catheterization with stenting. 17.Multiple other medical and surgical procedures as noted. PLAN: Currently, the patient is doing relatively well. I reviewed the medications. He is on good antibiotics. We will continue to follow. No respiratory issues at this time. Prognosis is guarded. MMODL / IJN: [id number] /
[2019-05-18 16:58] LABS: Glucose,Whole Blood 223 mg/dL (75-99)
[2019-05-18] MEDS ORDERED: AZITHROMYCIN 500 MG in SODIUM CHLORIDE 0.9% 250 ML IVPB SCH (18:00)
[2019-05-18] MEDS: ATORVASTATIN 80 MG TAB PO SCH (19:44)
[2019-05-18 20:12] LABS: Glucose,Whole Blood 223 mg/dL (75-99)
[2019-05-18] MEDS: INSULIN DETEMIR (LEVEMIR) 100 UNIT/ML SYR SQ SCH (22:21)
--- NOTE | 2019-05-18 23:37 | P.CONS ---
History of Present Illness - Reason for Consult Consult date: 05/18/19 pneumonia Requesting physician: Cedric Green - Chief Complaint shortness of breath and chest pain x 1 day - History of Present Illness Patient is a 54-year male presenting to the ER yesterday with chief complaints of increasing shortness of breath and left-sided chest pain that the pain has been going on for few days before he presented to hospital patient also complaining of a cough which is been mild in intensity and the dry nature patient denied any high-grade fever however he did have some chills patient on arrival to the ER has been afebrile patient did have white count of 16,000 no urine was negative influenza PCR has been negative patient did have a chest x- ray peribronchial cuffing could reflect bronc disease or asthma no focal infiltrate patient has been admitted to the hospital with the patient started on Rocephin and Zithromax infectious was consulted with concern for possible COVID- 19 infection patient has reported feeling better since he has been admitted to the hospital, patient did have VQ scan which was abnormal. Review of Systems Positive point has been mentioned in HPI rest of the systems are negative Past Medical History Past Medical History: Asthma, Coronary Artery Disease (CAD), Chest Pain / Angina, Diabetes Mellitus, Deep Vein Thrombosis (DVT), Hyperlipidemia, Hypertension, Myocardial Infarction ([place]), Sleep Apnea/CPAP/BIPAP Additional Past Medical History / Comment(s): Obstructive sleep apnea CPAP, bronchitis, IDDM type II, DVT L leg, cellulitis L leg 2012 cellulitis L Arm 2017, diabetic neuropathy affects feet and hands, chronic kidney disease stage II Last Myocardial Infarction Date:: 06/23/13 History of Any Multi-Drug Resistant Organisms: Acinetobacter (MDRO), MRSA Year Discovered:: 08/2014 MDRO Source:: abdomen around navel Past Surgical History: Back Surgery, Coronary Bypass/CABG, Heart Cat heterization, Heart Catheterization With Stent, Hernia Repair Additional Past Surgical History / Comment(s): Cardiac caths, PCI with stents (4total), 2006 CABG 6 vessels, spinal fusion L4-L5, fasciotomy left thigh, bilateral inguinal hernia repairs, I&D L forearm with dehisence then compartment syndrome with fasciotomy Left forearm - June 2016 Past Anesthesia/Blood Transfusion Reactions: No Reported Reaction Date of Last Stent Placement:: 08/28/15 Past Psychological History: No Psychological Hx Reported Smoking Status: Never smoker Past Alcohol Use History: None Reported Past Drug Use History: None Reported - Past Family History Brother(s) Additional Family Medical History / Comment(s): Patient has 1 brother and 1 sister with no major medical problems. Mother Family Medical History: Congestive Heart Failure (CHF), Diabetes Mellitus Additional Family Medical History / Comment(s): Mother at the age of 84 from with history of chronic renal disease stage. Father Family Medical History: COPD, Coronary Artery Disease (CAD), Myocardial Infarction ([place]) Additional Family Medical History / Comment(s): Father of a [place] at the age of 60 yrs with history of COPD. Sister(s) Family Medical History: Rheumatoid Arthritis (RA) Additional Family Medical History / Comment(s): Patient has 1 sister with no major medical problems. Medications and Allergies Home Medications Medication Instructions Recorded Confirmed Type Ergocalciferol [Vitamin D2 50,000 unit PO Q14D 07/02/16 05/17/19 History (DRISDOL)] Multivitamins, Thera [Multivitamin 1 tab PO DAILY 12/13/16 05/17/19 History (formulary)] Lisinopril 40 mg PO DAILY 04/12/19 05/17/19 History Apixaban [Eliquis] 5 mg PO BID #60 tab 04/14/19 05/17/19 Rx Aspirin 81 mg PO DAILY #30 chewable 04/14/19 05/17/19 Rx Atorvastatin [Lipitor] 80 mg PO HS #30 tab 04/14/19 05/17/19 Rx Furosemide [Lasix] 40 mg PO DAILY PRN #30 tab 04/14/19 05/17/19 Rx Gabapentin [Neurontin] 200 mg PO BID #60 cap 04/14/19 05/17/19 Rx Insulin Aspart [NovoLOG Flexpen] 0 units SQ ACHS 30 Days pen 04/14/19 05/17/19 Rx Insulin Glargine,Hum.rec.anlog 30 unit SQ HS #1 pen 04/14/19 05/17/19 Rx [Basaglar Kwikpen U-100] Isosorbide Mononitrate ER [Imdur] 30 mg PO DAILY #30 tab.er.24h 04/14/19 05/17/19 Rx Metoprolol Tartrate [Lopressor] 100 mg PO BID #60 tab 04/14/19 05/17/19 Rx Potassium Chloride ER [K-Dur 10] 10 meq PO DAILY #30 tab 04/14/19 05/17/19 Rx cloNIDine HCL [Catapres] 0.1 mg PO BID #60 tab 04/14/19 05/17/19 Rx metFORMIN HCL [Glucophage] 1,000 mg PO BID #60 tab 04/14/19 05/17/19 Rx hydrALAZINE HCL [Apresoline] 75 mg PO TID #270 tab 04/25/19 05/17/19 Rx Allergies Allergy/AdvReac Type Severity Reaction Status Date / Time adhesive tape Allergy Severe Rash/Hives Verified 05/17/19 19:56 vancomycin Allergy Mild Rash/Hives Verified 05/17/19 19:56 Physical Exam Vitals: Vital Signs Temp Pulse Pulse Resp BP BP Pulse Ox 05/18/19 12:00 98.3 F 79 16 118/73 98 05/18/19 08:54 98.0 F 88 16 155/95 96 05/18/19 05:00 97.8 F 86 18 129/75 98 05/18/19 00:00 98.3 F 85 18 132/75 98 05/17/19 22:53 98.6 F 82 18 120/71 98 05/17/19 20:30 85 18 100 05/17/19 20:00 87 16 147/66 100 05/17/19 19:30 90 21 99 05/17/19 18:30 110/64 05/17/19 18:00 89 33 H 109/71 05/17/19 17:30 87 21 116/80 05/17/19 17:00 85 29 H 106/61 05/17/19 16:30 84 11 L 99/63 05/17/19 16:00 86 16 100/72 99 05/17/19 15:45 87 17 100/72 99 05/17/19 15:30 87 18 96/63 100 05/17/19 15:15 90 18 96/63 99 05/17/19 15:00 89 16 96/62 100 05/17/19 14:45 84 16 96/62 91 L 05/17/19 14:30 82 16 93/66 98 05/17/19 14:22 98 Intake and Output 05/17/19 05/18/19 05/18/19 22:59 06:59 14:59 Intake Total 1040.246 360 Balance 1040.246 360 Intake: Intake, IV Titration 1040.246 Amount Heparin Sod,Pork in 0.45% 490.246 NaCl 25,000 unit In 0.45 % NaCl 1 250ml.bag @ 12 UNITS/KG/HR 9.525 mls/hr IV .Q24H INDERJIT Rx#: [id number] Sodium Chloride 0.9% 1, 550 000 ml @ 100 mls/hr IV . Q10H ONE Rx#:[id number] Oral 360 Other: # Voids 2 1 # Bowel Movements 0 Weight 79.379 kg 76.2 kg GENERAL DESCRIPTION: Middle-aged male lying in bed, no distress. No tachypnea or accessory muscle of respiration use. HEENT: Shows Pallor , no scleral icterus. Oral mucous membrane is dry. NECK: Trachea central, no thyromegaly. LUNGS: Unlabored breathing. Decreased breath sound at base. No wheeze or crac kle. HEART: S1, S2, regular rate and rhythm. ABDOMEN: Soft, no tenderness , guarding or rigidity EXTREMITIES: No edema of feet. SKIN: No rash, no masses palpable. NEUROLOGICAL: The patient is awake, alert, oriented x3, mood and affect normal. Results CBC & Chem 7: 05/18/19 05:47 05/18/19 05:47 Labs: Abnormal Lab Results - Last 24 Hours (Table) 05/17/19 05/17/19 05/17/19 Range/Units 14:29 14:29 14:29 WBC 27.4 H (3.8-10.6) k/uL Plt Count (150-450) k/uL Neutrophils # (1.3-7.7) k/uL Neutrophils # (Manual) 22.40 H (1.3-7.7) k/uL Lymphocytes # (Manual) 0.27 L (1.0-4.8) k/uL Monocytes # (Manual) 1.64 H (0-1.0) k/uL Metamyelocytes # (Man) 2.74 H (0) k/uL Myelocytes # (Manual) 0.82 H (0) k/uL PT 13.3 H (9.0-12.0) sec INR 1.3 H (<1.2) APTT 32.4 H (22.0-30.0) sec D-Dimer (<0.60) mg/L FEU Sodium 133 L (137-145) mmol/L Carbon Dioxide 21 L (22-30) mmol/L BUN 44 H (9-20) mg/dL Creatinine 2.10 H (0.66-1.25) mg/dL Glucose 145 H (74-99) mg/dL POC Glucose (mg/dL) (75-99) mg/dL Plasma Lactic Acid Oskar (0.7-2.0) mmol/L Calcium 8.2 L (8.4-10.2) mg/dL AST 78 H (17-59) U/L ALT 52 H (4-49) U/L Troponin I (0.000-0.034) ng/mL C-Reactive Protein (<10.0) mg/L Total Protein (6.3-8.2) g/dL Albumin (3.5-5.0) g/dL Urine Protein (Negative) Urine Blood (Negative) Urine RBC (0-5) /hpf Amorphous Sediment (None) /hpf Urine Mucus (None) /hpf 05/17/19 05/17/19 05/17/19 Range/Units 14:29 14:29 14:29 WBC (3.8-10.6) k/uL Plt Count (150-450) k/uL Neutrophils # (1.3-7.7) k/uL Neutrophils # (Manual) (1.3-7.7) k/uL Lymphocytes # (Manual) (1.0-4.8) k/uL Monocytes # (Manual) (0-1.0) k/uL Metamyelocytes # (Man) (0) k/uL Myelocytes # (Manual) (0) k/uL PT (9.0-12.0) sec INR (<1.2) APTT (22.0-30.0) sec D-Dimer 34.62 H (<0.60) mg/L FEU Sodium (137-145) mmol/L Carbon Dioxide (22-30) mmol/L BUN (9-20) mg/dL Creatinine (0.66-1.25) mg/dL Glucose (74-99) mg/dL POC Glucose (mg/dL) (75-99) mg/dL Plasma Lactic Acid Oskar 5.8 H* (0.7-2.0) mmol/L Calcium (8.4-10.2) mg/dL AST (17-59) U/L ALT (4-49) U/L Troponin I 1.550 H* (0.000-0.034) ng/mL C-Reactive Protein (<10.0) mg/L Total Protein (6.3-8.2) g/dL Albumin (3.5-5.0) g/dL Urine Protein (Negative) Urine Blood (Negative) Urine RBC (0-5) /hpf Amorphous Sediment (None) /hpf Urine Mucus (None) /hpf 05/17/19 05/17/19 05/17/19 Range/Units 14:29 16:55 19:25 WBC (3.8-10.6) k/uL Plt Count (150-450) k/uL Neutrophils # (1.3-7.7) k/uL Neutrophils # (Manual) (1.3-7.7) k/uL Lymphocytes # (Manual) (1.0-4.8) k/uL Monocytes # (Manual) (0-1.0) k/uL Metamyelocytes # (Man) (0) k/uL Myelocytes # (Manual) (0) k/uL PT (9.0-12.0) sec INR (<1.2) APTT (22.0-30.0) sec D-Dimer (<0.60) mg/L FEU Sodium (137-145) mmol/L Carbon Dioxide (22-30) mmol/L BUN (9-20) mg/dL Creatinine (0.66-1.25) mg/dL Glucose (74-99) mg/dL POC Glucose (mg/dL) (75-99) mg/dL Plasma Lactic Acid Oskar 4.7 H* (0.7-2.0) mmol/L Calcium (8.4-10.2) mg/dL AST (17-59) U/L ALT (4-49) U/L Troponin I (0.000-0.034) ng/mL C-Reactive Protein 172.0 H (<10.0) mg/L Total Protein (6.3-8.2) g/dL Albumin (3.5-5.0) g/dL Urine Protein 1+ H (Negative) Urine Blood Small H (Negative) Urine RBC 13 H (0-5) /hpf Amorphous Sediment Rare H (None) /hpf Urine Mucus Rare H (None) /hpf 05/17/19 05/17/19 05/17/19 Range/Units 21:27 22:10 23:23 WBC (3.8-10.6) k/uL Plt Count (150-450) k/uL Neutrophils # (1.3-7.7) k/uL Neutrophils # (Manual) (1.3-7.7) k/uL Lymphocytes # (Manual) (1.0-4.8) k/uL Monocytes # (Manual) (0-1.0) k/uL Metamyelocytes # (Man) (0) k/uL Myelocytes # (Manual) (0) k/uL PT (9.0-12.0) sec INR (<1.2) APTT (22.0-30.0) sec D-Dimer (<0.60) mg/L FEU Sodium (137-145) mmol/L Carbon Dioxide (22-30) mmol/L BUN (9-20) mg/dL Creatinine (0.66-1.25) mg/dL Glucose (74-99) mg/dL POC Glucose (mg/dL) 72 L (75-99) mg/dL Plasma Lactic Acid Oskar 3.7 H* (0.7-2.0) mmol/L Calcium (8.4-10.2) mg/dL AST (17-59) U/L ALT (4-49) U/L Troponin I 1.050 H* (0.000-0.034) ng/mL C-Reactive Protein (<10.0) mg/L Total Protein (6.3-8.2) g/dL Albumin (3.5-5.0) g/dL Urine Protein (Negative) Urine Blood (Negative) Urine RBC (0-5) /hpf Amorphous Sediment (None) /hpf Urine Mucus (None) /hpf 05/18/19 05/18/19 05/18/19 Range/Units 02:24 05:47 05:47 WBC 16.5 H (3.8-10.6) k/uL Plt Count 109 L (150-450) k/uL Neutrophils # 14.0 H (1.3-7.7) k/uL Neutrophils # (Manual) (1.3-7.7) k/uL Lymphocytes # (Manual) (1.0-4.8) k/uL Monocytes # (Manual) (0-1.0) k/uL Metamyelocytes # (Man) (0) k/uL Myelocytes # (Manual) (0) k/uL PT (9.0-12.0) sec INR (<1.2) APTT (22.0-30.0) sec D-Dimer (<0.60) mg/L FEU Sodium 135 L (137-145) mmol/L Carbon Dioxide (22-30) mmol/L BUN 46 H (9-20) mg/dL Creatinine 1.51 H (0.66-1.25) mg/dL Glucose 116 H (74-99) mg/dL POC Glucose (mg/dL) (75-99) mg/dL Plasma Lactic Acid Oskar (0.7-2.0) mmol/L Calcium 7.3 L (8.4-10.2) mg/dL AST 71 H (17-59) U/L ALT 53 H (4-49) U/L Troponin I 0.869 H* (0.000-0.034) ng/mL C-Reactive Protein (<10.0) mg/L Total Protein 5.6 L (6.3-8.2) g/dL Albumin 3.0 L (3.5-5.0) g/dL Urine Protein (Negative) Urine Blood (Negative) Urine RBC (0-5) /hpf Amorphous Sediment (None) /hpf Urine Mucus (None) /hpf 05/18/19 05/18/19 05/18/19 Range/Units 05:47 07:00 11:35 WBC (3.8-10.6) k/uL Plt Count (150-450) k/uL Neutrophils # (1.3-7.7) k/uL Neutrophils # (Manual) (1.3-7.7) k/uL Lymphocytes # (Manual) (1.0-4.8) k/uL Monocytes # (Manual) (0-1.0) k/uL Metamyelocytes # (Man) (0) k/uL Myelocytes # (Manual) (0) k/uL PT (9.0-12.0) sec INR (<1.2) APTT 52.9 H (22.0-30.0) sec D-Dimer (<0.60) mg/L FEU Sodium (137-145) mmol/L Carbon Dioxide (22-30) mmol/L BUN (9-20) mg/dL Creatinine (0.66-1.25) mg/dL Glucose (74-99) mg/dL POC Glucose (mg/dL) 104 H 209 H (75-99) mg/dL Plasma Lactic Acid Oskar (0.7-2.0) mmol/L Calcium (8.4-10.2) mg/dL AST (17-59) U/L ALT (4-49) U/L Troponin I (0.000-0.034) ng/mL C-Reactive Protein (<10.0) mg/L Total Protein (6.3-8.2) g/dL Albumin (3.5-5.0) g/dL Urine Protein (Negative) Urine Blood (Negative) Urine RBC (0-5) /hpf Amorphous Sediment (None) /hpf Urine Mucus (None) /hpf Assessment and Plan Assessment: -patient presented to the hospital with shortness of breath cough and some chest pain in this patient who did not have any fever however he did have elevated white count chest x-ray reported to be negative did have elevated CRP though and mild lymphopenia but lactic acid was normal with concern for possible pneumonia and question of possible bacterial though viral pneumonia such as COVID-19 less likely but not entirely excluded. (1) Leukocytosis Current Visit: Yes Status: Acute Code(s): D72.829 - ELEVATED WHITE BLOOD CELL COUNT, UNSPECIFIED SNOMED Code(s): 210871852 (2) Viral pneumonia Current Visit: Yes Status: Acute Code(s): J12.9 - VIRAL PNEUMONIA, UNSPECIFIED SNOMED Code(s): 84340770 Plan: 1-the patient to continue with Rocephin and Zithromax patient clinically seem to have responded 2-try to obtain a sputum for Gram stain and culture 3-we will repeat chest x-ray once patient is off the appropriate isolation We will follow on clinical condition and cultures to further adjust medication if needed Thank you for this consultation we will follow the patient along with you Time with Patient: Greater than 30
[2019-05-19] MEDS: VANCOMYCIN 1,500 MG in SODIUM CHLORIDE 0.9% 250 ML IVPB SCH ×2 (04:19→16:02)
[2019-05-19 06:18] LABS: Glucose,Whole Blood 118 mg/dL (75-99)
[2019-05-19] MEDS: INSULIN ASPART (NovoLOG) 100 UNIT/ML VIAL SQ SCH ×4 (06:23→21:24)
[2019-05-19] MEDS: PANTOPRAZOLE 40 MG TABLET PO SCH (06:28)
[2019-05-19 06:44] LABS: HCT 37.4 % (39.0-53.0); HGB 12.5 gm/dL (13.0-17.5); MCH 27.7 pg (25.0-35.0); MCHC 33.3 g/dL (31.0-37.0); MCV 83.1 fL (80.0-100.0); Mean Platelet Volume 10.2; RDW 14.2 % (11.5-15.5)
[2019-05-19 06:59] LABS: Albumin 2.8 g/dL (3.5-5.0); Calcium 7.6 mg/dL (8.4-10.2); Potassium 3.8 mmol/L (3.5-5.1); Total Bilirubin 0.8 mg/dL (0.2-1.3); Total Protein 5.5 g/dL (6.3-8.2)
[2019-05-19 07:27] LABS: Band Neutrophils % 9 %; Eosinophils # (M) 0.12 k/uL (0-0.7); Lymphocytes # (M) 1.08 k/uL (1.0-4.8); Monocytes # (M) 0.48 k/uL (0-1.0); Neutrophils % (M) 78 %; Nucleated Red Blood Cells 0 /100 WBC (0-0); Total Cells Counted 200
[2019-05-19 07:28] LABS: Platelet Count 99 k/uL (150-450); Poikilocytosis (M) Present
[2019-05-19] MEDS: METOPROLOL TARTRATE 50 MG TAB PO SCH ×2 (09:12→21:23)
[2019-05-19] MEDS: MULTIVITAMINS, THERA 1 EACH TAB PO SCH (09:12)
[2019-05-19] MEDS: POTASSIUM CHLORIDE ER 10 MEQ TAB.ER.PRT PO SCH (09:12)
[2019-05-19] MEDS: hydrALAZINE HCL 25 MG TAB PO SCH ×3 (09:12→21:23)
[2019-05-19] MEDS: GABAPENTIN 100 MG CAP PO SCH ×2 (09:12→21:23)
[2019-05-19] MEDS: ISOSORBIDE MONONITRATE ER 30 MG TAB.ER.24H PO SCH (09:12)
[2019-05-19] MEDS: cloNIDine HCL 0.1 MG TAB PO SCH ×2 (09:13→21:23)
[2019-05-19] MEDS: ASPIRIN 81 MG PO SCH (09:16)
[2019-05-19] MEDS: HEPARIN SODIUM,PORCINE 5,000 UNIT/ML 1 ML VIAL SQ SCH (09:16)
[2019-05-19] MEDS ORDERED: ALBUTEROL INHALER 60 PUFF/8 GM INHALER (BULK) INHALATION PRN (09:28)
--- NOTE | 2019-05-19 10:52 | CONS ---
CONSULTATION CHIEF COMPLAINTS: Cough, shortness of breath and left-sided chest pain. He initially presented to the ER. Had elevated white cell count, elevated troponin, elevated D-dimer, elevated BNP for which Cardiology had been consulted. I spoke to the ER doctor and asked him to get a COVID test and patient has known CAD and prior cardiac catheterization revealed patent ramus intermedius stent and patent MAE to LAD and venous graft to OM with a chronically occluded venous graft to the right coronary artery. An echocardiogram on him shows an ejection fraction of 40%-45%. I have been consulted because of elevated troponin. On my evaluation, I told the patient that his troponin elevation does not seem to be related to his heart to an acute cardiac event. The patient has known atrial fibrillation and has recently undergone cardioversion. His D-dimer was elevated. Patient went on to have a V/Q scan that is negative for pulmonary embolism. His EKG showed sinus tachycardia with extensive ST-T wave changes. An echocardiogram yesterday revealed an ejection fraction of 40% to 45% with dilated RV and pulmonary hypertension. PAST MEDICAL HISTORY: Significant for coronary artery disease status post CABG, hypertension, diabetes, dyslipidemia, paroxysmal atrial fibrillation status post cardioversion. MEDICATIONS: At home include Glucophage 1000 b.i.d., Apresoline 75 t.i.d., Catapres 0.1 b.i.d., K- Dur, Lopressor 100 b.i.d., lisinopril 40 q. daily, Imdur 30 1. daily, Lasix, Lipitor, aspirin and Eliquis. ALLERGIC: VANCOMYCIN. FAMILY HISTORY: Negative for premature coronary artery disease. SOCIAL HISTORY: Negative for current smoking, EtOH abuse or drug abuse. REVIEW OF SYSTEMS: HEENT: Unremarkable. CARDIAC: As described above. RESPIRATORY: As described above. GI: Negative. GENITOURINARY: Negative. ALLERGY/IMMUNOLOGY: Negative. MUSCULOSKELETAL: Significant for arthritis. PSYCHOSOCIAL: Negative. ENDOCRINE: Negative. CONSTITUTIONAL: Significant for febrile illness. Rest of the system review is not relevant. PHYSICAL EXAMINATION: Patient is afebrile. Heart rate is 70 beats per minute. Blood pressure is 138/80, respiratory rate is 18. Chest exam reveals good air entry bilaterally. Heart exam reveals first and second heart sounds. No gallop. Exam of extremities did not reveal any edema. Peripheral pulses are felt. LABS: Show that the white cell count was elevated, troponin was elevated, BNP was elevated, D- dimer was elevated. V/Q scan is negative. ASSESSMENT: 1. Elevated troponin. 2. Febrile illness. PLAN: Patient's clinical presentation is probably secondary to a possible viral pneumonia. Patient does not need a cardiac cath. Will decide on further course of action based on how his symptoms evolve. NINA / JODIEN: [id number] /
--- NOTE | 2019-05-19 11:03 | CDI ---
Documentation Clarification Form Date: 05/19/2019 10:31:41 AM From: Sonali Strickland RN, CCDS Admit Date: 05/17/2019 08:10:00 PM Patient Name: Lakhwinder Hirsch Visit Number: [id number] Discharge Date: ATTENTION: The Clinical Documentation Specialists (CDI) and [facility] Coding Staff appreciate your assistance in clarifying documentation. Please respond to the clarification below the line at the bottom and electronically sign. The CDI & [facility] Coding staff will review the response and follow-up if needed. Please note: Queries are made part of the Legal Health Record. If you have any questions, please contact the author of this message via ITS. Dr. Cedric Green Congestive heart failure is documented in the H&P and subsequent progress notes and further specificity is requested for type of congestive heart failure and acuity. History/Risk Factors: Coronary artery disease, Diabetes mellitus, Hypertension, Hyperlipidemia, Chronic kidney disease stage II Clinical Indicators: 54-year-old male present to ED on 05/16 with complaint of chest pain and shortness of breath. He reports history of congestive heart failure. he denies fever or chills. ED exam reveals mild respiratory distress with minimal crackles in the right base. Vital signs on admission 96/58 83 18 98.8 99% 05/16 Chest x-ray shows no obvious acute abnormality. 05/16 Labs: WBC 27.4, Lactic acid 5.8 Echocardiogram (ED impression) some right heart strain, EF between 40-45 % 05/16 BNP: 05026 Treatment: Ventolin Ihnalation 2 puff QID Lasix 40 mg PO Daily Catapres 0.1 mg PO BID Lipitor 80 mg PO HS In your professional opinion, can you please clarify the acuity and type of CHF if known? Systolic Heart Failure: Acute Chronic Acute on Chronic Systolic & Diastolic Heart Failure: Acute Chronic Acute on Chronic Heart Failure Unable to Determine Other, please specify (Last Revision: May 2017) MTDD
[2019-05-19] MEDS: LISINOPRIL 20 MG TAB PO SCH (11:18)
--- NOTE | 2019-05-19 11:47 | P.PN ---
Subjective Progress Note Date: 05/19/19 This is a 54-year-old gentleman presented to the hospital mainly with symptoms of cough, shortness of breath, and sharp stabbing chest pains. He was seen in consultation by Dr. Mcdaniel yesterday. Patient had an elevated white blood cell count, elevated troponin, elevated d-dimer, and elevated BNP for which the original cardiology consultation was requested. Patient is currently undergoing COVID testing. Patient has a known history of coronary artery disease, prior cardiac catheterization revealed a patent ramus intermediate stent and patent MAE to the LAD and saphenous vein graft to the OM with a chronically occluded vein graft to the right coronary artery. Echocardiogram revealed an ejection fraction of 40-45%. Patient also has a history of paroxysmal atrial fibrillation, recently underwent cardioversion. Patient underwent a VQ scan which was low probability for pulmonary embolism. His EKG showed a sinus tachycardia with extensive ST-T wave changes. The patient was seen and examined this morning, complaining of chills, generalized body aches. Denied any chest discomfort, did state that he feels wheezy and mildly more short of breath today than what he felt yesterday. Blood pressure 126/70 with a heart rate in the 60s. White blood cell count 12.0, hemoglobin 12.5, platelet count 99. Objective - Vital Signs Vital signs: Vital Signs Temp 97.6 F 05/19/19 11:16 Pulse 68 05/19/19 11:16 Resp 20 05/19/19 11:16 BP 126/79 05/19/19 11:16 Pulse Ox 97 05/19/19 11:16 Intake & Output 05/18/19 05/19/19 05/19/19 18:59 06:59 18:59 Intake Total 600 360 Output Total 300 Balance 300 360 Weight 64.5 kg Intake: Oral 600 360 Output: Urine 300 Other: Voiding Method Toilet # Voids 1 2 # Bowel Movements 1 - Exam PHYSICAL EXAMINATION: GENERAL: 54-year-old gentleman in no acute distress at the time of my examination HEENT: Head is atraumatic, normocephalic. Pupils equal, round. Sclera anicteric. Conjunctiva are clear. Mucous membranes of the mouth are moist. Neck is supple. There is no elevated jugular venous pressure. No carotid bruit is heard. HEART EXAMINATION: Heart S1, S2 normal. No murmur or gallop heard. CHEST EXAMINATION: Lungs reveal some mild scattered wheezing throughout ABDOMEN: Soft, nontender. Bowel sounds are heard. No organomegaly noted. EXTREMITIES: 2+ peripheral pulses with no evidence of peripheral edema and no calf tenderness noted. NEUROLOGIC patient is awake, alert and oriented 3 . . - Labs CBC & Chem 7: 05/19/19 06:20 05/19/19 06:20 Labs: Abnormal Lab Results - Last 24 Hours (Table) 05/18/19 05/18/19 05/18/19 Range/Units 11:35 16:33 20:09 WBC (3.8-10.6) k/uL Hgb (13.0-17.5) gm/dL Hct (39.0-53.0) % Plt Count (150-450) k/uL Neutrophils # (Manual) (1.3-7.7) k/uL Chloride (98-107) mmol/L Carbon Dioxide (22-30) mmol/L BUN (9-20) mg/dL Glucose (74-99) mg/dL POC Glucose (mg/dL) 209 H 223 H 223 H (75-99) mg/dL Calcium (8.4-10.2) mg/dL AST (17-59) U/L ALT (4-49) U/L Alkaline Phosphatase (38-126) U/L Total Protein (6.3-8.2) g/dL Albumin (3.5-5.0) g/dL 05/19/19 05/19/19 05/19/19 Range/Units 06:17 06:20 06:20 WBC 12.0 H (3.8-10.6) k/uL Hgb 12.5 L (13.0-17.5) gm/dL Hct 37.4 L (39.0-53.0) % Plt Count 99 L (150-450) k/uL Neutrophils # (Manual) 10.40 H (1.3-7.7) k/uL Chloride 113 H (98-107) mmol/L Carbon Dioxide 18 L (22-30) mmol/L BUN 35 H (9-20) mg/dL Glucose 113 H (74-99) mg/dL POC Glucose (mg/dL) 118 H (75-99) mg/dL Calcium 7.6 L (8.4-10.2) mg/dL AST 100 H (17-59) U/L ALT 87 H (4-49) U/L Alkaline Phosphatase 136 H (38-126) U/L Total Protein 5.5 L (6.3-8.2) g/dL Albumin 2.8 L (3.5-5.0) g/dL Microbiology - Last 24 Hours (Table) 05/17/19 15:59 Blood Culture - Preliminary Blood No Growth after 24 hours Assessment and Plan Plan: Assessment and plan #1 febrile illness with associated elevated white blood cell count, rule out possible Covid. #2 paroxysmal atrial fibrillation #3 abnormality in troponin, representing myocardial injury with no evidence of myocardial ischemia, likely secondary to sepsis #4 known history of coronary artery disease with prior bypass surgery, most recent cardiac catheterization revealed a patent ramus intermediate stent and patent MAE to the LAD, saphenous vein graft to the OM with a chronically occluded vein graft to the right coronary artery. Patient's echo showed an ejection fraction of 40-45%, unchanged from prior. #5 hypertension #6 diabetes #7 hyperlipidemia Plan Patient does have an elevated BNP, no evidence of any congestive heart failure at this time. We will continue the patient on his current medications, Covid testing in progress. DNP note has been reviewed, I agree with a documented findings and plan of care. Patient was seen and examined.
[2019-05-19 12:01] LABS: Glucose,Whole Blood 185 mg/dL (75-99)
[2019-05-19] MEDS: ALBUTEROL INHALER 60 PUFF/8 GM INHALER (BULK) INHALATION SCH ×3 (12:02→19:14)
--- NOTE | 2019-05-19 12:10 | P.PN ---
Subjective Progress Note Date: 05/19/19 Principal diagnosis: Shortness of breath The patient is seen today 05/19/2019 on the selective care unit. He is currently awake and alert in no acute distress. He is currently afebrile. Maintaining O2 saturations in the 90s on room air. Hemodynamically stable. Blood culture reveals no growth. White count 12.0. Hemoglobin 12.5. Platelet count 99,000. Sodium 139. Potassium 3.8. Creatinine 1.13. AST 100, ALT 87, alk phos 136. He continues on vancomycin, ceftriaxone and azithromycin. Echocardiogram reveals mildly impaired left ventricular systolic function with e jection fraction 40-45%. There is grade 3 diastolic dysfunction with moderately enlarged right ventricle and severely impaired right ventricular systolic function. VQ scan was negative for mismatch defects. Objective - Vital Signs Vital signs: Vital Signs Temp 97.6 F 05/19/19 11:16 Pulse 68 05/19/19 11:16 Resp 20 05/19/19 11:16 BP 126/79 05/19/19 11:16 Pulse Ox 97 05/19/19 11:16 Intake & Output 05/18/19 05/19/19 05/19/19 18:59 06:59 18:59 Intake Total 600 360 Output Total 300 Balance 300 360 Weight 64.5 kg Intake: Oral 600 360 Output: Urine 300 Other: Voiding Method Toilet # Voids 1 2 # Bowel Movements 1 - Exam GENERAL EXAM: Alert, active, 54-year-old gentleman, on room air, comfortable in no apparent distress. HEAD: Normocephalic. EYES: Normal reaction of pupils, equal size. NOSE: Clear with pink turbinates. THROAT: No erythema or exudates. NECK: No masses, no JVD. CHEST: No chest wall deformity. LUNGS: Equal air entry with no crackles, wheeze, rhonchi or dullness. CVS: S1 and S2 normal with no audible murmur, regular rhythm. ABDOMEN: No hepatosplenomegaly, normal bowel sounds, no guarding or rigidity. SPINE: No scoliosis or deformity SKIN: No rashes CENTRAL NERVOUS SYSTEM: No focal deficits, tone is normal in all 4 extremities. EXTREMITIES: There is no peripheral edema. No clubbing, no cyanosis. Peripheral pulses are intact. - Labs CBC & Chem 7: 05/19/19 06:20 05/19/19 06:20 Labs: Abnormal Lab Results - Last 24 Hours (Table) 05/18/19 05/18/19 05/19/19 Range/Units 16:33 20:09 06:17 WBC (3.8-10.6) k/uL Hgb (13.0-17.5) gm/dL Hct (39.0-53.0) % Plt Count (150-450) k/uL Neutrophils # (Manual) (1.3-7.7) k/uL Chloride (98-107) mmol/L Carbon Dioxide (22-30) mmol/L BUN (9-20) mg/dL Glucose (74-99) mg/dL POC Glucose (mg/dL) 223 H 223 H 118 H (75-99) mg/dL Calcium (8.4-10.2) mg/dL AST (17-59) U/L ALT (4-49) U/L Alkaline Phosphatase (38-126) U/L Total Protein (6.3-8.2) g/dL Albumin (3.5-5.0) g/dL 05/19/19 05/19/19 Range/Units 06:20 06:20 WBC 12.0 H (3.8-10.6) k/uL Hgb 12.5 L (13.0-17.5) gm/dL Hct 37.4 L (39.0-53.0) % Plt Count 99 L (150-450) k/uL Neutrophils # (Manual) 10.40 H (1.3-7.7) k/uL Chloride 113 H (98-107) mmol/L Carbon Dioxide 18 L (22-30) mmol/L BUN 35 H (9-20) mg/dL Glucose 113 H (74-99) mg/dL POC Glucose (mg/dL) (75-99) mg/dL Calcium 7.6 L (8.4-10.2) mg/dL AST 100 H (17-59) U/L ALT 87 H (4-49) U/L Alkaline Phosphatase 136 H (38-126) U/L Total Protein 5.5 L (6.3-8.2) g/dL Albumin 2.8 L (3.5-5.0) g/dL Microbiology - Last 24 Hours (Table) 05/17/19 15:59 Blood Culture - Preliminary Blood No Growth after 24 hours Assessment and Plan Assessment: 1 Shortness of breath with left-sided pleuritic-type chest pain possible viral pleuritis. Covid 19 infection results pending 2 Troponin leak 3 History of coronary artery disease with previous coronary artery bypass grafting 4 Diabetes mellitus with diabetic neuropathy 5 Paroxysmal atrial fibrillation 6 History of DVT 7 Hyperlipidemia. 8 Hypertension. 9 Obstructive sleep apnea, maintained on CPAP 10 Chronic kidney disease Plan: The patient was seen and evaluated by Dr. Foote. He is a bit more broncho spastic and wheezy today. We'll add prednisone. Add albuterol MDI Await Covid testing results We'll continue to follow I, the cosigning physician, performed a history & physical examination of the pa tient. Lungs sounds have wheezing. Maintaining good O2 saturations in the 90s on room air. I discussed the assessment and plan of care with my nurse practitioner, Geraldine Talbert. I attest to the above note as dictated by her.
--- NOTE | 2019-05-19 12:25 | P.PN ---
Subjective Progress Note Date: 05/19/19 54-year-old male one of Dr. Montesinos's patient with past medical history of CAD, recent history of A. fib with RVR post cardioversion after transesophageal echocardiogram done in early April, history of severe COPD with FEV1 57 percentile seen pulmonary regular basis. Also patient is known to have history of CAD post CABG 5 vessel back in 2006 with angioplasty time to done since. Patient had recent history of non-ST ME with heart catheter done by Dr. Ga in March found to have severe triple vessel coronary artery disease with Patent ramus intermedius stent patent saphenous vein graft to the obtuse marginal branch patent MAE to the LAD but chronically occluded saphenous vein graft to the right coronary artery recommendation for medical management at this time and ejection fraction via echocardiogram was found to be 40-45 percentile only with severe concentric left ventricular hypertrophy with mild to moderate mitral regurgitation and mild tricuspid regurgitation. Patient was hospitalized in 04/24/2019 and end up going for transesophageal echocardiogram and cardioversion was done patient was started on anticoagulation with Eliquis along with beta aracely kept his pulse rate in the 60s and 70s. Patient apparently has not been taking his medication for the last 2-3 days he developed to have worsening shortness of breath and sharp left sided chest pain on and off worsening with exertion was associated with cough low-grade temperature patient's symptoms was a lot worse at nighttime he call his PCP and was instructed to go to the emergency department after the urgent care where influenza test was done and came back negative patient presented to the emergency department continue to be very symptomatic low-grade temperature with the blood pressure slightly bit low white blood cell was 27,000 left shift his troponin was quite but elevated CRP was 172 d-dimer was quite elevated as well and patient was in acute kidney failure. His creatinine is up to 2.1 from 1.0 a nd last admission chest x-ray showed cuffing around the bronchial area consistent with severe bronchitis with no clear infiltrate at the time. With his elevated d-dimer and VQ scan was performed and showed no pulmonary embolism at the time. Patient lactic acid was 4.7 was started on IV antibiotic and hydration no source of infection at this point was found his COVID-19 test was performed and patient was kept in isolation and admitted to the hospital for the above problem. 05/17: Patient has been afebrile, heart rate 88, blood pressure 155/95 before medications, pulse ox 97% on 3 L nasal cannula. ProBNP 5130. Repeat troponins 1.050, 0.869. Sodium 135, BUN 46, creatinine 1.51. Total bilirubin 1.2, AST 71, ALT 53, alkaline phosphatase 117. Lactic acid down to 1.6. WBC 16.5. COVID-19 results pending. Stool for C. diff is on collected patient is currently on heparin drip until seen by cardiology. Blood culture is status received. Consults are in place for pulmonary medicine, cardiology and infectious disease. monitor technician is sinus rhythm. 05/18: Covid 19 testing remains pending. Cardiology is following and it made no changes to medications. We will resume patient back on eliquis. Patient is complaining of chest pain with deep inspiration and continues to have some mild shortness of breath. Pulmonary has added and prednisone and albuterol inhaler. He is currently on antibiotics the form of azithromycin, ceftriaxone and vancomycin and also followed by Dr. Mackenzie. Patient is currently afebrile, heart rate 72, blood pressure 145/90, pulse ox 97% on room air. Repeat lab work reveals Sherry BC 12, hemoglobin 12.5, platelet count 99. Sodium 139, potassium 3.8, chloride 113, CO2 18, BUN 35 and creatinine 1.13. Blood sugars running anywhere between 118-223. Total bilirubin 0.8, AST 100, ALT 87, alkaline phosphatase 136. Objective - Vital Signs Vital signs: Vital Signs Temp 98 F 05/19/19 08:00 Pulse 72 05/19/19 08:00 Resp 20 05/19/19 08:00 BP 145/90 05/19/19 08:00 Pulse Ox 97 05/19/19 08:00 Intake & Output 05/18/19 05/19/19 05/19/19 18:59 06:59 18:59 Intake Total 600 360 Output Total 300 Balance 300 360 Weight 64.5 kg Intake: Oral 600 360 Output: Urine 300 Other: Voiding Method Toilet # Voids 1 2 # Bowel Movements 1 - Exam Review of Systems CONSTITUTIONAL: Well-developed no acute respiratory distress. EYES: No icterus sclerae, no conjunctivitis. EARS, NOSE, MOUTH, THROAT, and FACE: No sore throat, lymphadenopathy, carotid bruits or deformity. RESPIRATORY: Positive chest pain with inspiration, reports shortness of breath, cough wheezes, shortness breath with activity. CARDIOVASCULAR: Positive PND orthopnea palpitation GASTROINTESTINAL: Positive abdominal pain nausea with no vomiting positive decrease of appetite with generalized weakness. GENITOURINARY: Negative for Hematuria or UTI, no kidney stones. INTEGUMENT/BREAST: Negative for any muscular injury with mild osteoarthritis.. HEMATOLOGIC/LYMPHATIC: Negative for bleed or purpura. MUSCULOSKELTAL: Negative for Myalgia or arthralgia. NEURLOGICAL: No LOC, Sz or syncope, blurred vision dizziness or abnormality.. BEHAVIORAL/PSYCH: Negative. ENDOCRINE: Negative. Physical examination General Appearance: Alert, cooperative, no distress, appears stated age. Neck HEENT: Supple, no lymphadenopathy, no thyroid enlargement, no carotid bruit s. Lungs: Decreased breath some bilaterally with mild expiratory wheezes. Chest Wall: Decrease expansion with deep inspiration no tenderness and no deformity was found on exam, no costochondral pain or discomfort. Heart: Irregular rhythm and rate , S1, S2 positive history positive JVD with systolic murmur. Back: Symmetric, no curvature, ROM normal, no CVA tenderness. Abdomen: Soft, non-tender, bowel sounds active all four quadrants, no masses, no organomegaly. Extremities: Trace edema decreased positive sinus pedis bilaterally with slight discoloration below the knee. Pulses: 2+ and symmetric. Skin: Skin color, texture, tugor normal, no rashes or lesions. Neurologic: Alert oriented x3 cranial nerves II through XII intact, no motor deficit, no abnormal balance or gait. - Labs CBC & Chem 7: 05/19/19 06:20 05/19/19 06:20 Labs: Abnormal Lab Results - Last 24 Hours (Table) 05/18/19 05/18/19 05/18/19 Range/Units 11:35 16:33 20:09 WBC (3.8-10.6) k/uL Hgb (13.0-17.5) gm/dL Hct (39.0-53.0) % Plt Count (150-450) k/uL Neutrophils # (Manual) (1.3-7.7) k/uL Chloride (98-107) mmol/L Carbon Dioxide (22-30) mmol/L BUN (9-20) mg/dL Glucose (74-99) mg/dL POC Glucose (mg/dL) 209 H 223 H 223 H (75-99) mg/dL Calcium (8.4-10.2) mg/dL AST (17-59) U/L ALT (4-49) U/L Alkaline Phosphatase (38-126) U/L Total Protein (6.3-8.2) g/dL Albumin (3.5-5.0) g/dL 05/19/19 05/19/19 05/19/19 Range/Units 06:17 06:20 06:20 WBC 12.0 H (3.8-10.6) k/uL Hgb 12.5 L (13.0-17.5) gm/dL Hct 37.4 L (39.0-53.0) % Plt Count 99 L (150-450) k/uL Neutrophils # (Manual) 10.40 H (1.3-7.7) k/uL Chloride 113 H (98-107) mmol/L Carbon Dioxide 18 L (22-30) mmol/L BUN 35 H (9-20) mg/dL Glucose 113 H (74-99) mg/dL POC Glucose (mg/dL) 118 H (75-99) mg/dL Calcium 7.6 L (8.4-10.2) mg/dL AST 100 H (17-59) U/L ALT 87 H (4-49) U/L Alkaline Phosphatase 136 H (38-126) U/L Total Protein 5.5 L (6.3-8.2) g/dL Albumin 2.8 L (3.5-5.0) g/dL Microbiology - Last 24 Hours (Table) 05/17/19 15:59 Blood Culture - Preliminary Blood No Growth after 24 hours Assessment and Plan Plan: 1. Sepsis of unclear etiology. Patient is currently on ceftriaxone and azithromycin and vancomycin. COVID-19 testing is in progress. Consult in place with infectious disease and pulmonary medicine. 2. Severe dyspnea and shortness of breath without acute respiratory failure secondary to accommodation of heart failure, A. fib and COPD. 3. COPD with mild exacerbation. Consult with pulmonary medicine. Patient started on oral prednisone, albuterol inhaler, Symbicort 4. Rule out Covid 19. Await testing results. Patient is in isolation. 5. Acute acute kidney failure. Hold metformin, avoid nephrotoxic agents, recheck BMP. 6. Elevated d-dimer with negative VQ scan. 7. Elevated troponin, acute coronary syndrome ruled out by cardiology. Recent cardioversion and cardiac testing with recent heart catheter done by cardiology in March and known chronic occlusion on to the graft which patient has been on medical management. Consult cardiology. Continue aspirin 81 mg daily, Lipitor 80 mg at bedtime, Imdur 30 mg daily, Lopressor 100 mg twice daily. 8. Cardiomyopathy: Most likely ischemic with low ejection fraction at 35 percentile. Continue Lopressor 100 mg twice daily, lisinopril 40 mg daily, Imdur, Lasix 40 mg daily as needed. 9. COPD with FEV1 at 35 percentile patient has been seen pulmonary regular basis continue O2 continue updraft treatment versus MDI and steroid inhaler at this point. 10. Hypertension: Has been on hydralazine 75 mg 3 times a day, lisinopril 40 mg a day and metoprolol 100 mg twice a day resume medication when the blood pressure is better. 11. Recent history of A. fib with RVR: Post cardioversion done by cardiology patient was placed some but beta aracely did not require any other antiarrh ythmic but was started on anticoagulation and patient apparently is not taking it for the last 2-3 days because he felt quite bit sick. 12. Paroxysmal atrial fibrillation, currently sinus rhythm. Patient will be resumed on eliquis 5 mg twice daily 13. Diabetes mellitus type 2, insulin requiring. Patient states that he normally takes NovoLog 8-10 units before meals and does not do insulin scale. Patient's Levemir will be resumed at home dose and continue NovoLog scale for now. Reassess in the morning. 13. Obstructive sleep apnea. Continue CPAP. 14. DVT prophylaxis. Patient will be resumed on eliquis 5 mg twice daily. 15. GI prophylaxis: Patient will be on pantoprazole 40 mg daily. CODE STATUS: Full code. Discharge plan: home Impression and plan of care have been directed as dictated by the signing physician. Dipika Mendez nurse practitioner acting as scribe for signing physician.
--- NOTE | 2019-05-19 16:42 | PN ---
PROGRESS NOTE DATE OF SERVICE: 05/19/2019 REASON FOR FOLLOWUP: Possible viral pneumonia. INTERVAL HISTORY: The patient is currently afebrile, is currently breathing comfortably on room air. However, he is complaining of more dry cough but not bringing up any sputum. No chest pain. No nausea, no vomiting. No abdominal pain or diarrhea. PHYSICAL EXAMINATION: Blood pressure 126/79 with a pulse of 69, temperature 97.8. He is 98% on room air. General description is a middle-aged male lying in bed in no distress. RESPIRATORY SYSTEM: Unlabored breathing with decreased intensity of breath sounds. No wheeze. HEART: S1, S2. Regular rate and rhythm. ABDOMEN: Soft. No tenderness. LABS: Hemoglobin is 12.5, white count 12,000. BUN of 35, creatinine 1.13. Liver enzymes mildly elevated. CRP of 172. Urine is negative. Leary PCR is currently pending. DIAGNOSTIC IMPRESSION AND PLAN: Patient presenting to the hospital with increased shortness of breath and chest pain with concern for possible pneumonia. Patient is currently covered with Rocephin and Zithromax. No fever has been recorded. We are waiting for the COVID-19 testing to be completed. Monitor his clinical course closely. MMODL / IJN: [id number] /
[2019-05-19 16:43] LABS: Glucose,Whole Blood 218 mg/dL (75-99)
[2019-05-19] MEDS: metFORMIN 500 MG TAB PO SCH (17:27)
[2019-05-19] MEDS: AZITHROMYCIN 500 MG TAB PO SCH (17:27)
[2019-05-19] MEDS: SYMBICORT 160-4.5 MCG INHALER INHALATION SCH (19:14)
[2019-05-19] MEDS: MORPHINE SULFATE 2 MG/ML SYRINGE IVP PRN (19:14)
[2019-05-19 20:41] LABS: Glucose,Whole Blood 154 mg/dL (75-99)
[2019-05-19] MEDS: INSULIN DETEMIR (LEVEMIR) 100 UNIT/ML SYR SQ SCH (21:23)
[2019-05-19] MEDS: APIXABAN 5 MG TAB PO SCH (21:23)
[2019-05-19] MEDS: ATORVASTATIN 80 MG TAB PO SCH (21:23)
[2019-05-19] MEDS: ZOLPIDEM 5 MG TAB PO SCH (21:23)
[2019-05-20] MEDS ORDERED: VANCOMYCIN TROUGH DUE 1 EACH MISC MISCELLANE ONE (03:00)
[2019-05-20 03:30] LABS: Basophils % (A) 0 %; Eosinophils # (A) 0.3 k/uL (0-0.7); Eosinophils % (A) 4 %; HCT 36.7 % (39.0-53.0); HGB 12.4 gm/dL (13.0-17.5); Lymphocytes # (A) 1.1 k/uL (1.0-4.8); Lymphocytes % (A) 13 %; MCH 27.8 pg (25.0-35.0); MCHC 33.6 g/dL (31.0-37.0); MCV 82.7 fL (80.0-100.0); Mean Platelet Volume 10.9; Monocytes # (A) 0.3 k/uL (0-1.0); Monocytes % (A) 3 %; Neutrophils # (A) 6.7 k/uL (1.3-7.7); Neutrophils % (A) 77 %; Platelet Count 118 k/uL (150-450); RBC 4.44 m/uL (4.30-5.90); RDW 14.4 % (11.5-15.5); WBC 8.7 k/uL (3.8-10.6)
[2019-05-20 03:38] LABS: ALT 97 U/L (4-49); AST 74 U/L (17-59); African American GFR (CKD) >90 (>60 ml/min/1.73 sqM); Albumin 2.9 g/dL (3.5-5.0); Alkaline Phosphatase 153 U/L (38-126); Anion Gap 7 mmol/L; Blood Urea Nitrogen 29 mg/dL (9-20); Calcium 8.3 mg/dL (8.4-10.2); Carbon Dioxide 19 mmol/L (22-30); Chloride 111 mmol/L (98-107); Glucose 151 mg/dL (74-99); Non-African American GFR(CKD) 79 (>60 ml/min/1.73 sqM); Potassium 4.1 mmol/L (3.5-5.1); Sodium 137 mmol/L (137-145); Total Bilirubin 0.5 mg/dL (0.2-1.3); Total Protein 5.6 g/dL (6.3-8.2)
[2019-05-20] MEDS: VANCOMYCIN 1,500 MG in SODIUM CHLORIDE 0.9% 250 ML IVPB SCH ×2 (05:02→15:08)
[2019-05-20] MEDS: metFORMIN 500 MG TAB PO SCH ×2 (05:14→17:03)
[2019-05-20] MEDS: MORPHINE SULFATE 2 MG/ML SYRINGE IVP PRN ×4 (05:14→23:12)
[2019-05-20] MEDS: PANTOPRAZOLE 40 MG TABLET PO SCH (05:14)
[2019-05-20 06:08] LABS: Glucose,Whole Blood 92 mg/dL (75-99)
[2019-05-20] MEDS: INSULIN ASPART (NovoLOG) 100 UNIT/ML VIAL SQ SCH ×4 (06:48→21:12)
[2019-05-20] MEDS: ALBUTEROL INHALER 60 PUFF/8 GM INHALER (BULK) INHALATION SCH ×2 (07:39→11:07)
[2019-05-20] MEDS: SYMBICORT 160-4.5 MCG INHALER INHALATION SCH (07:40)
[2019-05-20] MEDS ORDERED: ERGOCALCIFEROL 50,000 UNIT CAP PO SCH (09:00)
[2019-05-20] MEDS ORDERED: predniSONE 20 MG TAB PO SCH (09:00)
[2019-05-20] MEDS: APIXABAN 5 MG TAB PO SCH ×2 (09:45→21:11)
[2019-05-20] MEDS: LISINOPRIL 20 MG TAB PO SCH (09:45)
[2019-05-20] MEDS: GABAPENTIN 100 MG CAP PO SCH ×2 (09:45→21:10)
[2019-05-20] MEDS: cloNIDine HCL 0.1 MG TAB PO SCH ×2 (09:46→21:12)
[2019-05-20] MEDS: POTASSIUM CHLORIDE ER 10 MEQ TAB.ER.PRT PO SCH (09:46)
[2019-05-20] MEDS: hydrALAZINE HCL 25 MG TAB PO SCH ×3 (09:46→21:11)
[2019-05-20] MEDS: MULTIVITAMINS, THERA 1 EACH TAB PO SCH (09:46)
[2019-05-20] MEDS: ASPIRIN 81 MG PO SCH (09:46)
[2019-05-20] MEDS: METOPROLOL TARTRATE 50 MG TAB PO SCH ×2 (09:46→21:10)
[2019-05-20] MEDS: ISOSORBIDE MONONITRATE ER 30 MG TAB.ER.24H PO SCH (09:46)
[2019-05-20 11:58] LABS: Glucose,Whole Blood 187 mg/dL (75-99)
--- NOTE | 2019-05-20 12:00 | P.PN ---
Subjective Progress Note Date: 05/20/19 54-year-old male one of Dr. Montesinos's patient with past medical history of CAD, recent history of A. fib with RVR post cardioversion after transesophageal echocardiogram done in early April, history of severe COPD with FEV1 57 percentile seen pulmonary regular basis. Also patient is known to have history of CAD post CABG 5 vessel back in 2006 with angioplasty time to done since. Patient had recent history of non-ST AL with heart catheter done by Dr. Ga in March found to have severe triple vessel coronary artery disease with Patent ramus intermedius stent patent saphenous vein graft to the obtuse marginal branch patent MAE to the LAD but chronically occluded saphenous vein graft to the right coronary artery recommendation for medical management at this time and ejection fraction via echocardiogram was found to be 40-45 percentile only with severe concentric left ventricular hypertrophy with mild to moderate mitral regurgitation and mild tricuspid regurgitation. Patient was hospitalized in 04/24/2019 and end up going for transesophageal echocardiogram and cardioversion was done patient was started on anticoagulation with Eliquis along with beta aracely kept his pulse rate in the 60s and 70s. Patient apparently has not been taking his medication for the last 2-3 days he developed to have worsening shortness of breath and sharp left sided chest pain on and off worsening with exertion was associated with cough low-grade temperature patient's symptoms was a lot worse at nighttime he call his PCP and was instructed to go to the emergency department after the urgent care where influenza test was done and came back negative patient presented to the emergency department continue to be very symptomatic low-grade temperature with the blood pressure slightly bit low white blood cell was 27,000 left shift his troponin was quite but elevated CRP was 172 d-dimer was quite elevated as well and patient was in acute kidney failure. His creatinine is up to 2.1 from 1.0 a nd last admission chest x-ray showed cuffing around the bronchial area consistent with severe bronchitis with no clear infiltrate at the time. With his elevated d-dimer and VQ scan was performed and showed no pulmonary embolism at the time. Patient lactic acid was 4.7 was started on IV antibiotic and hydration no source of infection at this point was found his COVID-19 test was performed and patient was kept in isolation and admitted to the hospital for the above problem. 05/17: Patient has been afebrile, heart rate 88, blood pressure 155/95 before medications, pulse ox 97% on 3 L nasal cannula. ProBNP 5130. Repeat troponins 1.050, 0.869. Sodium 135, BUN 46, creatinine 1.51. Total bilirubin 1.2, AST 71, ALT 53, alkaline phosphatase 117. Lactic acid down to 1.6. WBC 16.5. COVID-19 results pending. Stool for C. diff is on collected patient is currently on heparin drip until seen by cardiology. Blood culture is status received. Consults are in place for pulmonary medicine, cardiology and infectious disease. 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 05/18: Covid 19 testing remains pending. Cardiology is following and it made no changes to medications. We will resume patient back on eliquis. Patient is complaining of chest pain with deep inspiration and continues to have some mild shortness of breath. Pulmonary has added and prednisone and albuterol inhaler. He is currently on antibiotics the form of azithromycin, ceftriaxone and vancomycin and also followed by Dr. Mackenzie. Patient is currently afebrile, heart rate 72, blood pressure 145/90, pulse ox 97% on room air. Repeat lab work reveals Sherry BC 12, hemoglobin 12.5, platelet count 99. Sodium 139, potassium 3.8, chloride 113, CO2 18, BUN 35 and creatinine 1.13. Blood sugars running anywhere between 118-223. Total bilirubin 0.8, AST 100, ALT 87, alkaline phosphatase 136. 05/19: Patient is laying down in bed in no apparent distress he continues to have a bit of her chest pain associated with the some shortness breath, he had a minimal cough, he did require some morphine sulfate yesterday for pleuritic ches t pain, he had a good bowel movement today he continues to be bloated, he denies any nausea or vomiting at this time he has no fever or chills he seems to be doing better overall. Covid 19 still pending. Objective - Vital Signs Vital signs: Vital Signs Temp 97.6 F 05/20/19 04:00 Pulse 64 05/20/19 04:00 Resp 20 05/20/19 04:00 BP 135/83 05/20/19 04:00 Pulse Ox 98 05/20/19 04:00 Intake & Output 05/19/19 05/20/19 05/20/19 18:59 06:59 18:59 Intake Total 1380 Balance 1380 Weight 70 kg Intake: IV 300 Vancomycin 1,500 mg In 250 Sodium Chloride 0.9% 250 ml @ 125 mls/hr IVPB Q12H [facility] Rx#:[id number] cefTRIAXone 1 gm In 50 Sodium Chloride 0.9% 50 ml @ 100 mls/hr IVPB Q24H [facility] Rx#:[id number] Oral 1080 Other: Voiding Method Toilet Toilet # Voids 3 1 # Bowel Movements 1 - Exam - Exam Review of Systems CONSTITUTIONAL: Well-developed no acute respiratory distress. EYES: No icterus sclerae, no conjunctivitis. EARS, NOSE, MOUTH, THROAT, and FACE: No sore throat, lymphadenopathy, carotid bruits or deformity. RESPIRATORY: Positive chest pain with inspiration, reports shortness of breath, cough wheezes, shortness breath with activity. CARDIOVASCULAR: Positive PND orthopnea palpitation GASTROINTESTINAL: Positive abdominal pain nausea with no vomiting positive decrease of appetite with generalized weakness. GENITOURINARY: Negative for Hematuria or UTI, no kidney stones. INTEGUMENT/BREAST: Negative for any muscular injury with mild osteoarthritis.. HEMATOLOGIC/LYMPHATIC: Negative for bleed or purpura. MUSCULOSKELTAL: Negative for Myalgia or arthralgia. NEURLOGICAL: No LOC, Sz or syncope, blurred vision dizziness or abnormality.. BEHAVIORAL/PSYCH: Negative. ENDOCRINE: Negative. Physical examination General Appearance: Alert, cooperative, no distress, appears stated age. Neck HEENT: Supple, no lymphadenopathy, no thyroid enlargement, no carotid bruits. Lungs: Decreased breath some bilaterally with mild expiratory wheezes. Chest Wall: Decrease expansion with deep inspiration no tenderness and no deformity was found on exam, no costochondral pain or discomfort. Heart: Irregular rhythm and rate , S1, S2 positive history positive JVD with systolic murmur. Back: Symmetric, no curvature, ROM normal, no CVA tenderness. Abdomen: Soft, non-tender, bowel sounds active all four quadrants, no masses, no organomegaly. Extremities: Trace edema decreased positive sinus pedis bilaterally with slight discoloration below the knee. Pulses: 2+ and symmetric. Skin: Skin color, texture, tugor normal, no rashes or lesions. Neurologic: Alert oriented x3 cranial nerves II through XII intact, no motor deficit, no abnormal balance or gait. - Labs CBC & Chem 7: 05/20/19 03:10 05/20/19 03:10 Labs: Abnormal Lab Results - Last 24 Hours (Table) 05/19/19 05/19/19 05/19/19 Range/Units 11:59 16:38 20:40 Hgb (13.0-17.5) gm/dL Hct (39.0-53.0) % Plt Count (150-450) k/uL Chloride (98-107) mmol/L Carbon Dioxide (22-30) mmol/L BUN (9-20) mg/dL Glucose (74-99) mg/dL POC Glucose (mg/dL) 185 H 218 H 154 H (75-99) mg/dL Calcium (8.4-10.2) mg/dL AST (17-59) U/L ALT (4-49) U/L Alkaline Phosphatase (38-126) U/L Total Protein (6.3-8.2) g/dL Albumin (3.5-5.0) g/dL 05/20/19 05/20/19 Range/Units 03:10 03:10 Hgb 12.4 L (13.0-17.5) gm/dL Hct 36.7 L (39.0-53.0) % Plt Count 118 L (150-450) k/uL Chloride 111 H (98-107) mmol/L Carbon Dioxide 19 L (22-30) mmol/L BUN 29 H (9-20) mg/dL Glucose 151 H (74-99) mg/dL POC Glucose (mg/dL) (75-99) mg/dL Calcium 8.3 L (8.4-10.2) mg/dL AST 74 H (17-59) U/L ALT 97 H (4-49) U/L Alkaline Phosphatase 153 H (38-126) U/L Total Protein 5.6 L (6.3-8.2) g/dL Albumin 2.9 L (3.5-5.0) g/dL Microbiology - Last 24 Hours (Table) 05/17/19 15:59 Blood Culture - Preliminary Blood No Growth after 48 hours Assessment and Plan Assessment: Assessment and Plan Plan: 1. Sepsis of unclear etiology. Patient is currently on ceftriaxone and azithromycin and vancomycin. COVID-19 testing is in progress. Consult in place with infectious disease and pulmonary medicine. 2. Severe dyspnea and shortness of breath without acute respiratory failure secondary to accommodation of heart failure, A. fib and COPD. 3. COPD with mild exacerbation. Consult with pulmonary medicine. Patient started on oral prednisone, albuterol inhaler, Symbicort 4. Rule out Covid 19. Await testing results. Patient is in isolation. 5. Acute acute kidney failure. Hold metformin, avoid nephrotoxic agents, recheck BMP. 6. Elevated d-dimer with negative VQ scan. 7. Elevated troponin, acute coronary syndrome ruled out by cardiology. Recent cardioversion and cardiac testing with recent heart catheter done by cardiology in March and known chronic occlusion on to the graft which patient has been on medical management. Consult cardiology. Continue aspirin 81 mg daily, Lipitor 80 mg at bedtime, Imdur 30 mg daily, Lopressor 100 mg twice daily. 8. Cardiomyopathy: Most likely ischemic with low ejection fraction at 35 percentile. Continue Lopressor 100 mg twice daily, lisinopril 40 mg daily, Imdur, Lasix 40 mg daily as needed. 9. COPD with FEV1 at 35 percentile patient has been seen pulmonary regular basis continue O2 continue updraft treatment versus MDI and steroid inhaler at this point. 10. Hypertension: Has been on hydralazine 75 mg 3 times a day, lisinopril 40 mg a day and metoprolol 100 mg twice a day resume medication when the blood press ure is better. 11. Recent history of A. fib with RVR: Post cardioversion done by cardiology patient was placed some but beta aracely did not require any other antiarrhythmic but was started on anticoagulation and patient apparently is not taking it for the last 2-3 days because he felt quite bit sick. 12. Paroxysmal atrial fibrillation, currently sinus rhythm. Patient will be resumed on eliquis 5 mg twice daily 13. Diabetes mellitus type 2, insulin requiring. Patient states that he homer lly takes NovoLog 8-10 units before meals and does not do insulin scale. Patient's Levemir will be resumed at home dose and continue NovoLog scale for now. Reassess in the morning. 13. Obstructive sleep apnea. Continue CPAP. 14. DVT prophylaxis. Patient will be resumed on eliquis 5 mg twice daily. 15. GI prophylaxis: Patient will be on pantoprazole 40 mg daily. CODE STATUS: Full code. Discharge plan: home
[2019-05-20] MEDS: NITROGLYCERIN OINT 1 INCH/GM PACKET TOPICAL SCH ×3 (12:47→23:16)
--- NOTE | 2019-05-20 14:39 | P.PN ---
Subjective Progress Note Date: 05/20/19 Principal diagnosis: Shortness of breath The patient is seen today 05/19/2019 on the selective care unit. He is currently awake and alert in no acute distress. He is currently afebrile. Maintaining O2 saturations in the 90s on room air. Hemodynamically stable. Blood culture reveals no growth. White count 12.0. Hemoglobin 12.5. Platelet count 99,000. Sodium 139. Potassium 3.8. Creatinine 1.13. AST 100, ALT 87, alk phos 136. He continues on vancomycin, ceftriaxone and azithromycin. Echocardiogram reveals mildly impaired left ventricular systolic function with e jection fraction 40-45%. There is grade 3 diastolic dysfunction with moderately enlarged right ventricle and severely impaired right ventricular systolic function. VQ scan was negative for mismatch defects. The patient is seen today 05/20/2019 in follow-up on the selective care unit. He is currently resting fairly comfortably in bed. Awake and alert in no acute distress. He is still having some left-sided chest discomfort. Maintaining O2 saturations in the mid 90s on 2 L/m per nasal cannula. Continues with a dry nonproductive cough. He is afebrile. Hemodynamically stable. Blood cultures reveal no growth to date. White count 8.7. Hemoglobin 12.4. Platelet count 118. Creatinine 1.06. He is currently on ceftriaxone and azithromycin. Anticoagulated with Eliquis. Antibiotics in the form of vancomycin, ceftriaxone and azithromycin. Covid 19 testing still pending. Objective - Vital Signs Vital signs: Vital Signs Temp 97.7 F 05/20/19 11:16 Pulse 63 05/20/19 12:01 Resp 24 05/20/19 12:01 BP 125/79 05/20/19 11:16 Pulse Ox 98 05/20/19 11:16 Intake & Output 05/19/19 05/20/19 05/20/19 18:59 06:59 18:59 Intake Total 1380 1470 Balance 1380 1470 Weight 70 kg Intake: IV 300 250 Vancomycin 1,500 mg In 250 250 Sodium Chloride 0.9% 250 ml @ 125 mls/hr IVPB Q12H [facility] Rx#:[id number] cefTRIAXone 1 gm In 50 Sodium Chloride 0.9% 50 ml @ 100 mls/hr IVPB Q24H [facility] Rx#:[id number] Oral 1080 1220 Other: Voiding Method Toilet Toilet Toilet # Voids 3 1 1 # Bowel Movements 1 - Exam GENERAL EXAM: Alert, active, 54-year-old gentleman, on 2 L/m per nasal cannula, comfortable in no apparent distress. HEAD: Normocephalic. EYES: Normal reaction of pupils, equal size. NOSE: Clear with pink turbinates. THROAT: No erythema or exudates. NECK: No masses, no JVD. CHEST: No chest wall deformity. LUNGS: Equal air entry with few scattered rhonchi. CVS: S1 and S2 normal with no audible murmur, regular rhythm. ABDOMEN: No hepatosplenomegaly, normal bowel sounds, no guarding or rigidity. SPINE: No scoliosis or deformity SKIN: No rashes CENTRAL NERVOUS SYSTEM: No focal deficits, tone is normal in all 4 extremities. EXTREMITIES: There is no peripheral edema. No clubbing, no cyanosis. Peripheral pulses are intact. - Labs CBC & Chem 7: 05/20/19 03:10 05/20/19 03:10 Labs: Abnormal Lab Results - Last 24 Hours (Table) 05/19/19 05/19/19 05/20/19 Range/Units 16:38 20:40 03:10 Hgb (13.0-17.5) gm/dL Hct (39.0-53.0) % Plt Count (150-450) k/uL Chloride 111 H (98-107) mmol/L Carbon Dioxide 19 L (22-30) mmol/L BUN 29 H (9-20) mg/dL Glucose 151 H (74-99) mg/dL POC Glucose (mg/dL) 218 H 154 H (75-99) mg/dL Calcium 8.3 L (8.4-10.2) mg/dL AST 74 H (17-59) U/L ALT 97 H (4-49) U/L Alkaline Phosphatase 153 H (38-126) U/L Total Protein 5.6 L (6.3-8.2) g/dL Albumin 2.9 L (3.5-5.0) g/dL 05/20/19 05/20/19 Range/Units 03:10 11:51 Hgb 12.4 L (13.0-17.5) gm/dL Hct 36.7 L (39.0-53.0) % Plt Count 118 L (150-450) k/uL Chloride (98-107) mmol/L Carbon Dioxide (22-30) mmol/L BUN (9-20) mg/dL Glucose (74-99) mg/dL POC Glucose (mg/dL) 187 H (75-99) mg/dL Calcium (8.4-10.2) mg/dL AST (17-59) U/L ALT (4-49) U/L Alkaline Phosphatase (38-126) U/L Total Protein (6.3-8.2) g/dL Albumin (3.5-5.0) g/dL Microbiology - Last 24 Hours (Table) 05/17/19 15:59 Blood Culture - Preliminary Blood No Growth after 48 hours Assessment and Plan Assessment: 1 Shortness of breath with left-sided pleuritic-type chest pain possible viral pleuritis. Covid 19 infection results pending 2 Troponin leak 3 History of coronary artery disease with previous coronary artery bypass grafting 4 Diabetes mellitus with diabetic neuropathy 5 Paroxysmal atrial fibrillation, anticoagulated with Eliquis 6 History of DVT 7 Hyperlipidemia. 8 Hypertension. 9 Obstructive sleep apnea, maintained on CPAP 10 Chronic kidney disease Plan: The patient was seen and evaluated by Dr. Foote. Continue current pulmonary medications Currently on ceftriaxone, azithromycin, vancomycin. ID on the case. Await Covid testing results We'll continue to follow I, the cosigning physician, performed a history & physical examination of the pa tient. Lungs sounds with few scattered rhonchi. Maintaining good O2 saturations in the 90s on 2 L/m per nasal cannula. I discussed the assessment and plan of care with my nurse practitioner, Geraldine Talbert. I attest to the above note as dictated by her.
[2019-05-20] MEDS: AZITHROMYCIN 500 MG TAB PO SCH (15:08)
[2019-05-20] MEDS ORDERED: NITROGLYCERIN OINT 1 INCH/GM PACKET TOPICAL SCH (16:00)
[2019-05-20 16:54] LABS: Glucose,Whole Blood 219 mg/dL (75-99)
[2019-05-20 19:56] LABS: Glucose,Whole Blood 284 mg/dL (75-99)
[2019-05-20] MEDS: ATORVASTATIN 80 MG TAB PO SCH (21:11)
[2019-05-20] MEDS: ZOLPIDEM 5 MG TAB PO SCH (21:12)
[2019-05-20] MEDS: INSULIN DETEMIR (LEVEMIR) 100 UNIT/ML SYR SQ SCH (21:12)
--- NOTE | 2019-05-21 02:35 | PN ---
PROGRESS NOTE DATE OF SERVICE: 05/20/2019 REASON FOR FOLLOWUP: Possible viral pneumonia. INTERVAL HISTORY: The patient is currently afebrile. He is still complaining of shortness of breath. No chest pain. Continues to have a cough. No sputum. No nausea. No vomiting. No abdominal pain or diarrhea. PHYSICAL EXAMINATION: Blood pressure 155/89 with a pulse of 66, temperature 98.1. He is 96% on 2 liters nasal cannula. General description is a middle-aged male lying in bed in no distress. RESPIRATORY SYSTEM: Unlabored breathing. Decreased intensity of breath sounds. No wheeze. HEART: S1, S2. Regular rate and rhythm. ABDOMEN: Soft. No tenderness. LABS: Hemoglobin is 12.4, white count 8.7. BUN of 29, creatinine 1.06. Blood culture has been negative. DIAGNOSTIC IMPRESSION AND PLAN: Patient admitted to the hospital with shortness of breath and a cough with question for possible COVID-19 viral pneumonia. Patient currently with no fever. Seems to have some clinical improvement. We will continue current antibiotics while waiting for the COVID-19 testing to be finalized and continue with supportive care. MMODL / IJN: [id number] /
[2019-05-21] MEDS: VANCOMYCIN 1,500 MG in SODIUM CHLORIDE 0.9% 250 ML IVPB SCH ×2 (04:33→18:10)
[2019-05-21 06:12] LABS: Glucose,Whole Blood 210 mg/dL (75-99)
[2019-05-21 07:15] LABS: Basophils % (A) 0 %; Eosinophils # (A) 0.2 k/uL (0-0.7); Eosinophils % (A) 2 %; HCT 36.5 % (39.0-53.0); HGB 11.9 gm/dL (13.0-17.5); Lymphocytes # (A) 1.2 k/uL (1.0-4.8); Lymphocytes % (A) 11 %; MCH 27.2 pg (25.0-35.0); MCHC 32.6 g/dL (31.0-37.0); MCV 83.3 fL (80.0-100.0); Mean Platelet Volume 10.8; Monocytes # (A) 0.5 k/uL (0-1.0); Monocytes % (A) 5 %; Neutrophils # (A) 8.2 k/uL (1.3-7.7); Neutrophils % (A) 79 %; Platelet Count 110 k/uL (150-450); RBC 4.38 m/uL (4.30-5.90); RDW 14.7 % (11.5-15.5); WBC 10.4 k/uL (3.8-10.6)
[2019-05-21 07:22] LABS: Albumin 2.9 g/dL (3.5-5.0); Calcium 8.5 mg/dL (8.4-10.2); Potassium 4.4 mmol/L (3.5-5.1); Total Bilirubin 0.5 mg/dL (0.2-1.3)
[2019-05-21 07:24] LABS: Total Protein 5.5 g/dL (6.3-8.2)
[2019-05-21] MEDS: INSULIN ASPART (NovoLOG) 100 UNIT/ML VIAL SQ SCH ×4 (07:58→22:01)
[2019-05-21] MEDS: metFORMIN 500 MG TAB PO SCH ×2 (08:00→18:10)
[2019-05-21] MEDS: PANTOPRAZOLE 40 MG TABLET PO SCH (08:01)
[2019-05-21] MEDS: LISINOPRIL 20 MG TAB PO SCH (09:16)
[2019-05-21] MEDS: MULTIVITAMINS, THERA 1 EACH TAB PO SCH (09:16)
[2019-05-21] MEDS: POTASSIUM CHLORIDE ER 10 MEQ TAB.ER.PRT PO SCH (09:16)
[2019-05-21] MEDS: ASPIRIN 81 MG PO SCH (09:16)
[2019-05-21] MEDS: cloNIDine HCL 0.1 MG TAB PO SCH ×2 (09:16→22:00)
[2019-05-21] MEDS: METOPROLOL TARTRATE 50 MG TAB PO SCH ×2 (09:16→22:00)
[2019-05-21] MEDS: APIXABAN 5 MG TAB PO SCH ×2 (09:17→22:00)
[2019-05-21] MEDS: NITROGLYCERIN OINT 1 INCH/GM PACKET TOPICAL SCH ×3 (09:17→23:59)
[2019-05-21] MEDS: hydrALAZINE HCL 25 MG TAB PO SCH ×3 (09:17→21:58)
[2019-05-21] MEDS: GABAPENTIN 100 MG CAP PO SCH ×2 (09:17→21:59)
[2019-05-21] MEDS: MORPHINE SULFATE 2 MG/ML SYRINGE IVP PRN ×3 (09:23→23:38)
[2019-05-21 12:10] LABS: Glucose,Whole Blood 138 mg/dL (75-99)
--- NOTE | 2019-05-21 12:44 | P.PN ---
Subjective Progress Note Date: 05/21/19 54-year-old male one of Dr. Montesinos's patient with past medical history of CAD, recent history of A. fib with RVR post cardioversion after transesophageal echocardiogram done in early April, history of severe COPD with FEV1 57 percentile seen pulmonary regular basis. Also patient is known to have history of CAD post CABG 5 vessel back in 2006 with angioplasty time to done since. Patient had recent history of non-ST CO with heart catheter done by Dr. Ga in March found to have severe triple vessel coronary artery disease with Patent ramus intermedius stent patent saphenous vein graft to the obtuse marginal branch patent MAE to the LAD but chronically occluded saphenous vein graft to the right coronary artery recommendation for medical management at this time and ejection fraction via echocardiogram was found to be 40-45 percentile only with severe concentric left ventricular hypertrophy with mild to moderate mitral regurgitation and mild tricuspid regurgitation. Patient was hospitalized in 04/24/2019 and end up going for transesophageal echocardiogram and cardioversion was done patient was started on anticoagulation with Eliquis along with beta aracely kept his pulse rate in the 60s and 70s. Patient apparently has not been taking his medication for the last 2-3 days he developed to have worsening shortness of breath and sharp left sided chest pain on and off worsening with exertion was associated with cough low-grade temperature patient's symptoms was a lot worse at nighttime he call his PCP and was instructed to go to the emergency department after the urgent care where influenza test was done and came back negative patient presented to the emergency department continue to be very symptomatic low-grade temperature with the blood pressure slightly bit low white blood cell was 27,000 left shift his troponin was quite but elevated CRP was 172 d-dimer was quite elevated as well and patient was in acute kidney failure. His creatinine is up to 2.1 from 1.0 a nd last admission chest x-ray showed cuffing around the bronchial area consistent with severe bronchitis with no clear infiltrate at the time. With his elevated d-dimer and VQ scan was performed and showed no pulmonary embolism at the time. Patient lactic acid was 4.7 was started on IV antibiotic and hydration no source of infection at this point was found his COVID-19 test was performed and patient was kept in isolation and admitted to the hospital for the above problem. 05/17: Patient has been afebrile, heart rate 88, blood pressure 155/95 before medications, pulse ox 97% on 3 L nasal cannula. ProBNP 5130. Repeat troponins 1.050, 0.869. Sodium 135, BUN 46, creatinine 1.51. Total bilirubin 1.2, AST 71, ALT 53, alkaline phosphatase 117. Lactic acid down to 1.6. WBC 16.5. COVID-19 results pending. Stool for C. diff is on collected patient is currently on heparin drip until seen by cardiology. Blood culture is status received. Consults are in place for pulmonary medicine, cardiology and infectious disease. phototypesetting equipment monitor is sinus rhythm. 05/18: Covid 19 testing remains pending. Cardiology is following and it made no changes to medications. We will resume patient back on eliquis. Patient is complaining of chest pain with deep inspiration and continues to have some mild shortness of breath. Pulmonary has added and prednisone and albuterol inhaler. He is currently on antibiotics the form of azithromycin, ceftriaxone and vancomycin and also followed by Dr. Mackenzie. Patient is currently afebrile, heart rate 72, blood pressure 145/90, pulse ox 97% on room air. Repeat lab work reveals Sherry BC 12, hemoglobin 12.5, platelet count 99. Sodium 139, potassium 3.8, chloride 113, CO2 18, BUN 35 and creatinine 1.13. Blood sugars running anywhere between 118-223. Total bilirubin 0.8, AST 100, ALT 87, alkaline phosphatase 136. 05/19: Patient is laying down in bed in no apparent distress he continues to have a bit of her chest pain associated with the some shortness breath, he had a minimal cough, he did require some morphine sulfate yesterday for pleuritic ches t pain, he had a good bowel movement today he continues to be bloated, he denies any nausea or vomiting at this time he has no fever or chills he seems to be doing better overall. Covid 19 still pending. 05/20: Patient is sitting up in bed he appears to be quite edematous in his upper extremities and lower extremities as well as his face we will Coumadin dose of Lasix 40 mg IV push 1 now and repeat in daily basis discontinue oral Lasix continue with potassium supplement, he continues to have some left-sided chest pain on and off he continued to have some shortness of breath and some dry cough he has no fever or chills at this point in time. His Covid 19 is still pending. Objective - Vital Signs Vital signs: Vital Signs Temp 98.0 F 05/21/19 08:00 Pulse 66 05/21/19 08:00 Resp 20 05/21/19 08:00 BP 130/78 05/21/19 08:00 Pulse Ox 95 05/21/19 08:00 Intake & Output 05/20/19 05/21/19 05/21/19 18:59 06:59 18:59 Intake Total 3130 Output Total 600 Balance 3130 -600 Weight 82.6 kg Intake: IV 1550 Vancomycin 1,500 mg In 1500 Sodium Chloride 0.9% 250 ml @ 125 mls/hr IVPB Q12H [facility] Rx#:[id number] cefTRIAXone 1 gm In 50 Sodium Chloride 0.9% 50 ml @ 100 mls/hr IVPB Q24H [facility] Rx#:[id number] Oral 1580 Output: Urine 600 Other: Voiding Method Toilet Toilet Toilet # Voids 1 - Exam - Exam Review of Systems CONSTITUTIONAL: Well-developed no acute respiratory distress. EYES: No icterus sclerae, no conjunctivitis. EARS, NOSE, MOUTH, THROAT, and FACE: No sore throat, lymphadenopathy, carotid br uits or deformity. RESPIRATORY: Positive chest pain with inspiration, reports shortness of breath, cough wheezes, shortness breath with activity. CARDIOVASCULAR: Positive PND orthopnea palpitation GASTROINTESTINAL: Positive abdominal pain nausea with no vomiting positive decrease of appetite with generalized weakness. GENITOURINARY: Negative for Hematuria or UTI, no kidney stones. INTEGUMENT/BREAST: Negative for any muscular injury with mild osteoarthritis.. HEMATOLOGIC/LYMPHATIC: Negative for bleed or purpura. MUSCULOSKELTAL: Negative for Myalgia or arthralgia. NEURLOGICAL: No LOC, Sz or syncope, blurred vision dizziness or abnormality.. BEHAVIORAL/PSYCH: Negative. ENDOCRINE: Negative. Physical examination General Appearance: Alert, cooperative, no distress, appears stated age. Neck HEENT: Supple, no lymphadenopathy, no thyroid enlargement, no carotid bruits. Lungs: Decreased breath some bilaterally with mild expiratory wheezes. Chest Wall: Decrease expansion with deep inspiration no tenderness and no deformity was found on exam, no costochondral pain or discomfort. Heart: Irregular rhythm and rate , S1, S2 positive history positive JVD with systolic murmur. Back: Symmetric, no curvature, ROM normal, no CVA tenderness. Abdomen: Soft, non-tender, bowel sounds active all four quadrants, no masses, no organomegaly. Extremities: Trace edema decreased positive sinus pedis bilaterally with slight discoloration below the knee. Pulses: 2+ and symmetric. Skin: Skin color, texture, tugor normal, no rashes or lesions. Neurologic: Alert oriented x3 cranial nerves II through XII intact, no motor deficit, no abnormal balance or gait. - Labs CBC & Chem 7: 05/21/19 06:41 05/21/19 06:41 Labs: Abnormal Lab Results - Last 24 Hours (Table) 05/20/19 05/20/19 05/20/19 Range/Units 11:51 16:49 19:51 Hgb (13.0-17.5) gm/dL Hct (39.0-53.0) % Plt Count (150-450) k/uL Neutrophils # (1.3-7.7) k/uL D-Dimer (<0.60) mg/L FEU Sodium (137-145) mmol/L Chloride (98-107) mmol/L Carbon Dioxide (22-30) mmol/L BUN (9-20) mg/dL Glucose (74-99) mg/dL POC Glucose (mg/dL) 187 H 219 H 284 H (75-99) mg/dL ALT (4-49) U/L Alkaline Phosphatase (38-126) U/L Total Protein (6.3-8.2) g/dL Albumin (3.5-5.0) g/dL 05/21/19 05/21/19 05/21/19 Range/Units 06:11 06:41 06:41 Hgb 11.9 L (13.0-17.5) gm/dL Hct 36.5 L (39.0-53.0) % Plt Count 110 L (150-450) k/uL Neutrophils # 8.2 H (1.3-7.7) k/uL D-Dimer (<0.60) mg/L FEU Sodium 135 L (137-145) mmol/L Chloride 109 H (98-107) mmol/L Carbon Dioxide 20 L (22-30) mmol/L BUN 31 H (9-20) mg/dL Glucose 169 H (74-99) mg/dL POC Glucose (mg/dL) 210 H (75-99) mg/dL ALT 67 H (4-49) U/L Alkaline Phosphatase 149 H (38-126) U/L Total Protein 5.5 L (6.3-8.2) g/dL Albumin 2.9 L (3.5-5.0) g/dL 05/21/19 Range/Units 06:41 Hgb (13.0-17.5) gm/dL Hct (39.0-53.0) % Plt Count (150-450) k/uL Neutrophils # (1.3-7.7) k/uL D-Dimer 1.85 H (<0.60) mg/L FEU Sodium (137-145) mmol/L Chloride (98-107) mmol/L Carbon Dioxide (22-30) mmol/L BUN (9-20) mg/dL Glucose (74-99) mg/dL POC Glucose (mg/dL) (75-99) mg/dL ALT (4-49) U/L Alkaline Phosphatase (38-126) U/L Total Protein (6.3-8.2) g/dL Albumin (3.5-5.0) g/dL Microbiology - Last 24 Hours (Table) 05/17/19 15:59 Blood Culture - Preliminary Blood No Growth after 72 hours Assessment and Plan Assessment: Assessment and Plan Plan: 1. Sepsis of unclear etiology. Patient is currently on ceftriaxone and azithromycin and vancomycin. COVID-19 testing is in progress. Consult in place with infectious disease and pulmonary medicine. 2. Severe dyspnea and shortness of breath without acute respiratory failure secondary to accommodation of heart failure, A. fib and COPD. 3. COPD with mild exacerbation. Consult with pulmonary medicine. Patient started on oral prednisone, albuterol inhaler, Symbicort 4. Rule out Covid 19. Await testing results. Patient is in isolation. 5. Acute acute kidney failure. Hold metformin, avoid nephrotoxic agents, recheck BMP. 6. Elevated d-dimer with negative VQ scan. 7. Elevated troponin, acute coronary syndrome ruled out by cardiology. Recent cardioversion and cardiac testing with recent heart catheter done by cardiology in March and known chronic occlusion on to the graft which patient has been on medical management. Consult cardiology. Continue aspirin 81 mg daily, Lipitor 80 mg at bedtime, Imdur 30 mg daily, Lopressor 100 mg twice daily. 8. Cardiomyopathy: Most likely ischemic with low ejection fraction at 35 percentile. Continue Lopressor 100 mg twice daily, lisinopril 40 mg daily, Imdur, switch Lasix to 40 mg IV push every day start now. 9. COPD with FEV1 at 35 percentile patient has been seen pulmonary regular basis continue O2 continue updraft treatment versus MDI and steroid inhaler at this point. 10. Hypertension: Has been on hydralazine 75 mg 3 times a day, lisinopril 40 mg a day and metoprolol 100 mg twice a day resume medication when the blood pressure is better. 11. Recent history of A. fib with RVR: Post cardioversion done by cardiology patient was placed some but beta aracely did not require any other antiarrhythmic but was started on anticoagulation and patient apparently is not taking it for the last 2-3 days because he felt quite bit sick. 12. Paroxysmal atrial fibrillation, currently sinus rhythm. Patient will be resumed on eliquis 5 mg twice daily 13. Diabetes mellitus type 2, insulin requiring. Patient states that he normally takes NovoLog 8-10 units before meals and does not do insulin scale. Patient's Levemir will be resumed at home dose and continue NovoLog scale for now. Reassess in the morning. 13. Obstructive sleep apnea. Continue CPAP. 14. DVT prophylaxis. Patient will be resumed on eliquis 5 mg twice daily. 15. GI prophylaxis: Patient will be on pantoprazole 40 mg daily. CODE STATUS: Full code. Discharge plan: home
[2019-05-21] MEDS: FUROSEMIDE 10 MG/ML 4 ML VIAL IV SCH (13:06)
--- NOTE | 2019-05-21 14:16 | PN ---
PROGRESS NOTE This is a 54-year-old gentleman who has history of CAD status post CABG, cardiomyopathy, and paroxysmal atrial fibrillation status post recent cardioversion who presented to the hospital with a very complex clinical presentation. He actually came in with febrile illness. His troponins were elevated. D-dimer was elevated. BNP was elevated. White cell count was elevated. He had a V/Q scan that was negative for pulmonary embolism and his lab abnormalities have gradually improved, in fact, his creatinine, which was 2 on presentation, has come down to 1. His white cell count has come down to 8.7. We initially thought he may have COVID; however, the COVID test has just come back negative. His liver enzymes were elevated on his initial presentation, they have come back to normal. The patient has had chest discomfort, which seems musculoskeletal to me. His EKG revealed sinus rhythm with nonspecific ST-T wave changes, which were noted on his previous EKGs. The patient had a cardiac catheterization in March and was advised medical therapy. I do not believe patient's chest discomfort is secondary to myocardial ischemia, nor is his clinical presentation explained by it. To me, it seems more like a viral infection on his initial presentation. In any event, he seems to be getting better. He is not short of breath and his chest pain is improving. PHYSICAL EXAMINATION: On exam, comfortable at rest. Vital signs are stable. Chest exam reveals good air entry bilaterally. Heart exam reveals first and second heart sounds. No gallop. Exam of extremities did not reveal any edema. LABS: As described above. ASSESSMENT: 1. Precordial chest pain, sharp, atypical. 2. History of coronary artery disease, status post CABG. 3. Recent viral or bacterial infection with multiple metabolic abnormalities, which are all improving. PLAN: From my standpoint, I will increase his activity and, hopefully, discharge him home tomorrow. He will have followup with Dr. 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 The patient is in optimal medical therapy including Eliquis, aspirin, Lipitor, Catapres, Apresoline, and Restoril, which will all be continued on discharge. MMODL / IJN: [id number] /
[2019-05-21 16:39] LABS: Glucose,Whole Blood 152 mg/dL (75-99)
--- NOTE | 2019-05-21 17:37 | PN ---
PROGRESS NOTE PULMONARY/CRITICAL CARE PROGRESS NOTE: DATE OF SERVICE: May 21, 2019 HISTORY OF PRESENT ILLNESS: This is a 54-year-old gentleman who was admitted on May 16. The patient complained of some shortness of breath and also some chest pain. We attempted to trial him on some updrafts and inhalers as well as corticosteroids without much benefit. I initially thought he might have a viral pleurisy. I thought the prednisone would probably make things better, but neither the inhalers or the prednisone seemed to help. They were discontinued. The patient feels like he is retaining fluid and feels like his issues are more cardiac in nature, though he tells us today that the certified ophthalmic assistant did not think it was an acute cardiac issue. Again, he is just not feeling his normal self. He is not particularly specific. The patient is on a couple L of O2. Saturations are excellent. He is on antibiotics. The patient was swabbed for COVID-19 infection. PHYSICAL EXAMINATION: VITAL SIGNS: Current vital signs are reviewed. Temperature is 98. Heart rate 60, respiratory rate 20, blood pressure 125/75, mean 91, 2 L saturation 97%. GENERAL: He is in no acute distress. There is no audible wheezing, use of accessory muscles or conversational dyspnea. HEENT: Examination is grossly unremarkable. Mucous membranes are moist. Nasal O2 noted. NECK: Supple. Full range of motion. No adenopathy. Neck veins are flat. CARDIOVASCULAR: Examination reveals regular rhythm and rate. Heart rate 60. S1, S2 normal. LUNGS: Reveals a few scattered mild rhonchi. No wheezes or crackles. Breath sounds are equal bilaterally. Active breath sounds are very good. ABDOMEN: Soft. Bowel sounds heard. EXTREMITIES are intact. No clubbing or edema. SKIN: Without rash. NEUROLOGIC: Examination is brief but nonfocal. LABS: Reviewed. White count 10.4, hemoglobin 11.9, hematocrit 36.5, platelet count 100,000. D-dimer 1.85. Sodium 135, potassium 4.4, chloride 109, CO2 20, anion gap 6. BUN and creatinine 31 and 1.12. The patient's ALT was 57, alkaline phosphatase 149, albumin 2.9. No recent chest x-ray. A lung scan was read as normal. A chest x-ray was also interpreted as normal. Medications are reviewed. He remains on antibiotics in form of Zithromax, ceftriaxone, and vancomycin. The breathing treatments and steroids did not seem to help, and they were discontinued. ASSESSMENT: 1. Shortness of breath with left-sided pleuritic-type chest pain, possibly related to a viral pleuritis for COVID-19 infection. Currently, testing for COVID- 19 is pending. 2. Mild troponin leak, rule out occult ischemia. 3. History of coronary artery disease with previous bypass grafting. 4. Diabetes mellitus with diabetic neuropathy. 5. Paroxysmal atrial fibrillation. 6. History of deep venous thrombosis. 7. Hyperlipidemia. 8. Hypertension. 9. Sleep apnea syndrome, maintained on CPAP. 10.History of chronic kidney disease. Currently, the patient seems to be doing relatively well. His COVID-19 testing apparently turned out to be negative. That is a good thing. Additional laboratory data today shows white count 8.4, hemoglobin 11.9, hematocrit 36.5, platelet count 207,000. The rest of the labs look pretty good. PLAN: The patient's course will be followed. No additional recommendations are made. As mentioned above, inhalers did not seem to help the patient's breathing issues and steroids did not help the patient's sharp chest pain. The results of the viral studies were shared with the patient today. MMODL / IJN: [id number] / MTDAce
[2019-05-21] MEDS: AZITHROMYCIN 500 MG TAB PO SCH (18:10)
[2019-05-21 20:17] LABS: Glucose,Whole Blood 219 mg/dL (75-99)
[2019-05-21] MEDS: ZOLPIDEM 5 MG TAB PO SCH (22:00)
[2019-05-21] MEDS: INSULIN DETEMIR (LEVEMIR) 100 UNIT/ML SYR SQ SCH (22:01)
[2019-05-21] MEDS: ATORVASTATIN 80 MG TAB PO SCH (22:01)
[2019-05-21] MEDS: ONDANSETRON 4 MG/2 ML VIAL IVP PRN (23:36)
[2019-05-22] MEDS: VANCOMYCIN 1,500 MG in SODIUM CHLORIDE 0.9% 250 ML IVPB SCH (04:15)
[2019-05-22 05:28] LABS: Calcium 8.6 mg/dL (8.4-10.2)
--- NOTE | 2019-05-22 05:41 | PN ---
PROGRESS NOTE DATE OF SERVICE: 05/21/2019 REASON FOR FOLLOWUP: Pneumonia. INTERVAL HISTORY: The patient is currently afebrile, has been breathing comfortably on room air. Still complaining of chest pain and cough but not bringing up any sputum. No nausea, no vomiting. No abdominal pain, no diarrhea. PHYSICAL EXAMINATION: Blood pressure 135/78 with a pulse of 62, temperature is 97.8. He is 99% on room air. General description is a middle-aged male lying in bed in no distress. RESPIRATORY SYSTEM: Unlabored breathing with decreased intensity of breath sounds, no wheeze. HEART: S1, S2. Regular rate and rhythm. ABDOMEN: Soft, no tenderness. LABS: Hemoglobin is 11.9, white count 10.4, lymphocyte count is normal. BUN of 31, creatinine is 1.12. Blood culture has been negative. No sputum collected. DIAGNOSTIC IMPRESSION AND PLAN: Patient admitted to the hospital with chest pain and cough with concern for possible pneumonia. The patient is currently being treated with Rocephin and Zithromax. He is breathing comfortably on room air. Chest x-ray repeated in the morning and if the patient continues to improve to finish therapy with oral Ceftin. Continue supportive care. Clinical for COVID-19 pneumonia. MMODL / IJN: [id number] /
[2019-05-22 06:02] LABS: Glucose,Whole Blood 96 mg/dL (75-99)
[2019-05-22] MEDS: INSULIN ASPART (NovoLOG) 100 UNIT/ML VIAL SQ SCH ×4 (06:53→20:27)
[2019-05-22] MEDS: MORPHINE SULFATE 2 MG/ML SYRINGE IVP PRN ×3 (06:59→23:23)
[2019-05-22] MEDS: metFORMIN 500 MG TAB PO SCH ×2 (07:03→16:48)
[2019-05-22] MEDS: PANTOPRAZOLE 40 MG TABLET PO SCH (07:03)
[2019-05-22] MEDS ORDERED: TRIAMCINOLONE 0.1% CREAM 80 GM TUBE TOPICAL PRN (07:13)
[2019-05-22] MEDS: NITROGLYCERIN OINT 1 INCH/GM PACKET TOPICAL SCH ×3 (08:57→23:37)
[2019-05-22] MEDS: cloNIDine HCL 0.1 MG TAB PO SCH (09:04)
[2019-05-22] MEDS: FUROSEMIDE 10 MG/ML 4 ML VIAL IV SCH (09:04)
[2019-05-22] MEDS: METOPROLOL TARTRATE 50 MG TAB PO SCH ×2 (09:04→20:30)
[2019-05-22] MEDS: APIXABAN 5 MG TAB PO SCH ×2 (09:05→20:29)
[2019-05-22] MEDS: LISINOPRIL 20 MG TAB PO SCH (09:05)
[2019-05-22] MEDS: ASPIRIN 81 MG PO SCH (09:05)
[2019-05-22] MEDS: POTASSIUM CHLORIDE ER 10 MEQ TAB.ER.PRT PO SCH (09:05)
[2019-05-22] MEDS: MULTIVITAMINS, THERA 1 EACH TAB PO SCH (09:05)
[2019-05-22] MEDS: hydrALAZINE HCL 25 MG TAB PO SCH ×3 (09:05→23:19)
[2019-05-22] MEDS: GABAPENTIN 100 MG CAP PO SCH ×2 (09:05→20:29)
[2019-05-22 10:24] LABS: Ferritin 123.2 ng/mL (22.0-322.0)
[2019-05-22] MEDS ORDERED: IPRATROPIUM-ALBUTEROL 3 ML NEB INHALATION PRN (10:44)
--- NOTE | 2019-05-22 10:52 | PN ---
PROGRESS NOTE Mr. Hirsch is a gentleman who has been admitted with increasing shortness of breath yesterday. He had apparently undergone electrical cardioversion recently. He has history of CAD, previous bypass surgery, paroxysmal atrial fibrillation with recent cardioversion. He came in having some fever. D-dimer was elevated. V/Q scan was negative for pulmonary embolism with low probability, mild BNP elevation. He was evaluated for COVID but the COVID just came back negative apparently. However, he complains of having some rash over his penis area. There is a what seems to be more like an eruption of sort. I talked to Dr. Mackenzie and advised him to look at it to make sure this is not any herpes zoster type presentation. He has what seems to be a non COVID type of viral infection. His electrolyte imbalances which were there have also been corrected. He had complaints of feeling weak and tired without much energy. His renal function is slightly abnormal. He has been diuresed, potassium levels are normal. He has no chest pain, but complains of feeling weak and tired and has an eruption over his penis for which I requested Dr. Mackenzie from Infectious Disease to evaluate. Blood pressure is 160/70, pulse rate is about 62 per minute, sinus. HEENT: Unremarkable. Fundus was not examined by me. NECK: Supple. There is 1 cm JVD. No carotid bruit. HEART: Exam reveals S1, S2 with a short systolic murmur. LUNGS: Revealed decent air entry. ABDOMEN: Soft. Lower extremities reveal diminished pulses. Central system is grossly without focal deficits. IMPRESSION: 1. History of paroxysmal atrial fibrillation, maintaining sinus rhythm status post cardioversion. 2. Type 2 diabetes. 3. Coronary artery disease. 4. History of bypass surgery. 5. Probably recent viral infection. RECOMMENDATIONS: From a cardiac standpoint, I would continue current recommendation, but I have requested Infectious Disease specialist Dr. Mackenzie to evaluate the patient. The patient's last echo from 05/17/2019 revealed ejection fraction in the 40% to 45% range We have to also optimize his blood pressure control, as well. We will recheck his blood pressure and make any adjustment in medications if necessary. I discussed my thoughts in detail with the patient. MMODL / IJN: [id number] /
[2019-05-22 11:39] LABS: Glucose,Whole Blood 113 mg/dL (75-99)
[2019-05-22] MEDS: cloNIDine HCL 0.2 MG TAB PO SCH ×3 (11:57→23:19)
[2019-05-22] MEDS: predniSONE 20 MG TAB PO SCH (11:57)
[2019-05-22] MEDS: IPRATROPIUM-ALBUTEROL 3 ML NEB INHALATION SCH ×3 (12:04→19:41)
--- NOTE | 2019-05-22 13:53 | CT ---
EXAMINATION TYPE: CT chest wo con DATE OF EXAM: 05/22/2019 COMPARISON: Radiograph 05/17/2019 HISTORY: 54-year-old male Sepsis, Elevated troponin, Right heart strain TECHNIQUE: Contiguous axial scanning of the chest without IV contrast. Coronal and sagittal reconstru ctions performed. CT DLP: 383.6 mGycm Automated exposure control for dose reduction was used. FINDINGS: Median sternotomy wires are present with post-CABG changes. Heart borderline in size. Retained epicardial pacer lead. Borderline caliber to the main right and left pulmonary arteries measuring up to 2.5 cm each. Scattered numerous nonenlarged mediastinal lymph nodes measuring up to 9 mm, probably reactive. Moderate-sized right pleural effusion and trace left pleural effusion. Minimal emphysematous cysts. Mild diffuse bronchial wall thickening. Some focal groundglass at the ri ght base adjacent to the effusion. Otherwise, no consolidation. There is generalized anasarca changes. Mild upper abdominal ascites. There is gallbladder wall thickening with gallbladder collapse. Spleen upper limits of normal in size at 13.5 cm. Bones: Degenerative disc disease lower thoracic spine. IMPRESSION: 1. Moderate-sized right pleural effusion and trace left pleural effusion. There is some focal groundg lass at the right base, probably representing atelectasis. Less likely some type of pneumonitis. Clin ically correlate. 2. Given mild interstitial thickening, generalized anasarca change, and possible pulmonary arterial h ypertension, correlate for mild CHF. 3. COPD with minimal emphysematous cysts. 4. Mild upper abdominal ascites and nonspecific gallbladder wall thickening. Correlate as to etiology . Findings may be seen in the setting of fluid overload state.
--- NOTE | 2019-05-22 13:53 | P.PN ---
Subjective Progress Note Date: 05/22/19 Principal diagnosis: Shortness of breath, left sided pleuritic type chest pain On 05/22/2019 patient seen in follow-up on selective care unit, he still has the left-sided pleuritic pain, and burning type sensation in his chest. Appears to be in no acute distress at rest, room air pulse ox is 93-97%, hemodynamically patient is stable, he is afebrile, COVID 19 has been ruled out. And patient has been on a combination of antibiotics including azithromycin, vancomycin and Roce phin. Blood cultures have shown no growth, patient has not been able to produce a sputum specimen for us, his been afebrile, chest x-ray on admission showed no focal infiltrate. Today's labs have been reviewed showing sodium of 138, potassium is 4.0, CO2 is 24, BUN is 38, creatinine is 1.26, patient is receiving a daily dose of IV Lasix, he is in negative fluid balance, lung sounds are positive for wheezing bilaterally, no crackles noted, he has been getting an albuterol, however still remains dyspneic, and bronchospastic on today's evaluation. Patient remains in sinus rhythm, he does have history of paroxysmal atrial fibrillation. He does have mild to moderate LV dysfunction with ejection fraction of 40-45 range. Cardiology service is following. Objective - Vital Signs Vital signs: Vital Signs Temp 97.7 F 05/22/19 11:58 Pulse 66 05/22/19 12:16 Resp 18 05/22/19 11:58 BP 144/80 05/22/19 11:58 Pulse Ox 97 05/22/19 11:58 Intake & Output 05/21/19 05/22/19 05/22/19 18:59 06:59 18:59 Intake Total 356 Output Total 220 Balance -220 356 Weight 81.9 kg Intake: Oral 356 Output: Urine 220 Other: Voiding Method Toilet # Voids 1 1 - Exam GENERAL EXAM: Alert, very pleasant 54-year-old white male, on room air, with a pulse ox of 93-97% comfortable in no apparent distress. HEAD: Normocephalic/atraumatic. EYES: Normal reaction of pupils, equal size. Conjunctiva pink, sclera white. NOSE: Clear with pink turbinates. THROAT: No erythema or exudates. NECK: No masses, no JVD, no thyroid enlargement, no adenopathy. CHEST: No chest wall deformity. Symmetrical expansion. LUNGS: Equal air entry with diffuse wheezes CVS: Regular rate and rhythm, normal S1 and S2, no gallops, no murmurs, no rubs ABDOMEN: Soft, nontender. No hepatosplenomegaly, normal bowel sounds, no guarding or rigidity. EXTREMITIES: No clubbing, no edema, no cyanosis, 2+ pulses and upper and lower extremities. MUSCULOSKELETAL: Muscle strength and tone normal. SPINE: No scoliosis or deformity SKIN: No rashes CENTRAL NERVOUS SYSTEM: Alert and oriented -3. No focal deficits, tone is normal in all 4 extremities. PSYCHIATRIC: Alert and oriented -3. Appropriate affect. Intact judgment and insight. - Labs CBC & Chem 7: 05/21/19 06:41 05/22/19 05:05 Labs: Abnormal Lab Results - Last 24 Hours (Table) 05/21/19 05/21/19 05/21/19 Range/Units 06:41 16:33 20:16 Chloride (98-107) mmol/L BUN (9-20) mg/dL Creatinine (0.66-1.25) mg/dL Glucose (74-99) mg/dL POC Glucose (mg/dL) 152 H 219 H (75-99) mg/dL Procalcitonin 8.44 H (0.02-0.09) ng/mL 05/22/19 05/22/19 Range/Units 05:05 11:37 Chloride 108 H (98-107) mmol/L BUN 38 H (9-20) mg/dL Creatinine 1.26 H (0.66-1.25) mg/dL Glucose 114 H (74-99) mg/dL POC Glucose (mg/dL) 113 H (75-99) mg/dL Procalcitonin (0.02-0.09) ng/mL Microbiology - Last 24 Hours (Table) 05/17/19 15:59 Blood Culture - Preliminary Blood No Growth after 96 hours Assessment and Plan Plan: Assessment: #1. Dyspnea, with left-sided pleuritic-type chest pain possibly related to viral pleuritis, Covid 19 has been ruled out #2. Mild troponin leak, rule out occult ischemia #3. History of coronary artery disease with previous bypass grafting #4. Diabetes mellitus with diabetic neuropathy #5. Progress for atrial fibrillation #6. History of deep venous thrombosis #7. Hyperlipidemia #8. Hypertension #9. Sleep apnea syndrome on CPAP therapy #10. History of chronic kidney disease Plan: We'll obtain CT chest without contrast today, we will add oral prednisone, we'll add nebulized DuoNeb, Covid 19 has been ruled out, vital signs are stable, no acute distress, patient said been afebrile, blood cultures are negative, continue current antibiotics, will review the computed tomography scan and further recommendations to follow I performed a history & physical examination of the patient and discussed their management with my nurse practitioner, Natali Veras. I reviewed the nurse practitioner's note and agree with the documented findings and plan of care. Lung sounds are positive for diffuse wheezes throughout the lung alvares. The fi ndings and the impression was discussed with the patient. I attest to the documentation by the nurse practitioner. Time with Patient: Less than 30
--- NOTE | 2019-05-22 14:52 | P.PN ---
Subjective Progress Note Date: 05/22/19 54-year-old male one of Dr. Montesinos's patient with past medical history of CAD, recent history of A. fib with RVR post cardioversion after transesophageal echocardiogram done in early April, history of severe COPD with FEV1 57 percentile seen pulmonary regular basis. Also patient is known to have history of CAD post CABG 5 vessel back in 2006 with angioplasty time to done since. Patient had recent history of non-ST NV with heart catheter done by Dr. Ga in March found to have severe triple vessel coronary artery disease with Patent ramus intermedius stent patent saphenous vein graft to the obtuse marginal branch patent MAE to the LAD but chronically occluded saphenous vein graft to the right coronary artery recommendation for medical management at this time and ejection fraction via echocardiogram was found to be 40-45 percentile only with severe concentric left ventricular hypertrophy with mild to moderate mitral regurgitation and mild tricuspid regurgitation. Patient was hospitalized in 04/24/2019 and end up going for transesophageal echocardiogram and cardioversion was done patient was started on anticoagulation with Eliquis along with beta aracely kept his pulse rate in the 60s and 70s. Patient apparently has not been taking his medication for the last 2-3 days he developed to have worsening shortness of breath and sharp left sided chest pain on and off worsening with exertion was associated with cough low-grade temperature patient's symptoms was a lot worse at nighttime he call his PCP and was instructed to go to the emergency department after the urgent care where influenza test was done and came back negative patient presented to the emergency department continue to be very symptomatic low-grade temperature with the blood pressure slightly bit low white blood cell was 27,000 left shift his troponin was quite but elevated CRP was 172 d-dimer was quite elevated as well and patient was in acute kidney failure. His creatinine is up to 2.1 from 1.0 a nd last admission chest x-ray showed cuffing around the bronchial area consistent with severe bronchitis with no clear infiltrate at the time. With his elevated d-dimer and VQ scan was performed and showed no pulmonary embolism at the time. Patient lactic acid was 4.7 was started on IV antibiotic and hydration no source of infection at this point was found his COVID-19 test was performed and patient was kept in isolation and admitted to the hospital for the above problem. 05/17: Patient has been afebrile, heart rate 88, blood pressure 155/95 before medications, pulse ox 97% on 3 L nasal cannula. ProBNP 5130. Repeat troponins 1.050, 0.869. Sodium 135, BUN 46, creatinine 1.51. Total bilirubin 1.2, AST 71, ALT 53, alkaline phosphatase 117. Lactic acid down to 1.6. WBC 16.5. COVID-19 results pending. Stool for C. diff is on collected patient is currently on heparin drip until seen by cardiology. Blood culture is status received. Consults are in place for pulmonary medicine, cardiology and infectious disease. hall monitor is sinus rhythm. 05/18: Covid 19 testing remains pending. Cardiology is following and it made no changes to medications. We will resume patient back on eliquis. Patient is complaining of chest pain with deep inspiration and continues to have some mild shortness of breath. Pulmonary has added and prednisone and albuterol inhaler. He is currently on antibiotics the form of azithromycin, ceftriaxone and vancomycin and also followed by Dr. Mackenzie. Patient is currently afebrile, heart rate 72, blood pressure 145/90, pulse ox 97% on room air. Repeat lab work reveals Sherry BC 12, hemoglobin 12.5, platelet count 99. Sodium 139, potassium 3.8, chloride 113, CO2 18, BUN 35 and creatinine 1.13. Blood sugars running anywhere between 118-223. Total bilirubin 0.8, AST 100, ALT 87, alkaline phosphatase 136. 05/19: Patient is laying down in bed in no apparent distress he continues to have a bit of her chest pain associated with the some shortness breath, he had a minimal cough, he did require some morphine sulfate yesterday for pleuritic ches t pain, he had a good bowel movement today he continues to be bloated, he denies any nausea or vomiting at this time he has no fever or chills he seems to be doing better overall. Covid 19 still pending. 05/20: Patient is sitting up in bed he appears to be quite edematous in his upper extremities and lower extremities as well as his face we will Coumadin dose of Lasix 40 mg IV push 1 now and repeat in daily basis discontinue oral Lasix continue with potassium supplement, he continues to have some left-sided chest pain on and off he continued to have some shortness of breath and some dry cough he has no fever or chills at this point in time. His Covid 19 is still pending. 05/21: Covid 19 is reported negative. Patient continues to have shortness of breath and Dr. Yates has ordered a CAT scan of the chest. Patient is also been complaining of continued rash on his penis that appears to be HSV. Patient will be started on Valtrex. Patient is afebrile, heart rate 63, blood pressure 188/105 with repeated 144/80, pulse ox 93% on room air. Sodium 138, potassium 4.0, chloride 108, CO2 24, BUN 30 creatinine 1.26. Blood sugars running between 96 and 219. CAT scan of the chest reveals moderate size right pleural effusion and trace left pleural effusion. Focal groundglass at the right base probably representing atelectasis. Less likely some type of pneumonitis. Given mild interstitial thickening, generalized anasarca change in possible pulmonary artery hypertension poorly for mild CHF. COPD with minimal emphysematous cysts. Mild upper abdominal ascites and nonspecific gallbladder wall thickening. Findings may begin seen in the setting of fluid overload. Patient is currently on IV Lasix 40 mg daily Objective - Vital Signs Vital signs: Vital Signs Temp 97.5 F L 05/22/19 08:00 Pulse 63 05/22/19 08:00 Resp 16 05/22/19 08:00 BP 188/105 05/22/19 08:00 Pulse Ox 93 L 05/22/19 08:00 Intake & Output 05/21/19 05/22/19 05/22/19 18:59 06:59 18:59 Intake Total 356 Output Total 220 Balance -220 356 Weight 81.9 kg Intake: Oral 356 Output: Urine 220 Other: Voiding Method Toilet # Voids 1 1 - Exam Review of Systems CONSTITUTIONAL: Well-developed no acute respiratory distress. EYES: No icterus sclerae, no conjunctivitis. EARS, NOSE, MOUTH, THROAT, and FACE: No sore throat, lymphadenopathy, carotid bruits or deformity. RESPIRATORY: Positive chest pain with inspiration, reports shortness of breath, cough wheezes, shortness breath with activity. CARDIOVASCULAR: Positive PND orthopnea palpitation GASTROINTESTINAL: Positive abdominal pain nausea with no vomiting positive decrease of appetite with generalized weakness. GENITOURINARY: Negative for Hematuria or UTI, no kidney stones. INTEGUMENT/BREAST: Negative for any muscular injury with mild osteoarthritis.. HEMATOLOGIC/LYMPHATIC: Negative for bleed or purpura. MUSCULOSKELTAL: Negative for Myalgia or arthralgia. NEURLOGICAL: No LOC, Sz or syncope, blurred vision dizziness or abnormality.. BEHAVIORAL/PSYCH: Negative. ENDOCRINE: Negative. Physical examination General Appearance: Alert, cooperative, no distress, appears stated age. Neck HEENT: Supple, no lymphadenopathy, no thyroid enlargement, no carotid bruits. Lungs: Decreased breath some bilaterally with mild expiratory wheezes. Chest Wall: Decrease expansion with deep inspiration no tenderness and no deformity was found on exam, no costochondral pain or discomfort. Heart: Irregular rhythm and rate , S1, S2 positive history positive JVD with systolic murmur. Back: Symmetric, no curvature, ROM normal, no CVA tenderness. Abdomen: Soft, non-tender, bowel sounds active all four quadrants, no masses, no organomegaly. Extremities: Trace edema decreased positive sinus pedis bilaterally with slight discoloration below the knee. Pulses: 2+ and symmetric. Skin: Skin color, texture, tugor normal, rashe on penis. Neurologic: Alert oriented x3 cranial nerves II through XII intact, no motor deficit, no abnormal balance or gait. - Labs CBC & Chem 7: 05/21/19 06:41 05/22/19 05:05 Labs: Abnormal Lab Results - Last 24 Hours (Table) 05/21/19 05/21/19 05/21/19 Range/Units 06:41 12:09 16:33 Chloride (98-107) mmol/L BUN (9-20) mg/dL Creatinine (0.66-1.25) mg/dL Glucose (74-99) mg/dL POC Glucose (mg/dL) 138 H 152 H (75-99) mg/dL Procalcitonin 8.44 H (0.02-0.09) ng/mL 05/21/19 05/22/19 Range/Units 20:16 05:05 Chloride 108 H (98-107) mmol/L BUN 38 H (9-20) mg/dL Creatinine 1.26 H (0.66-1.25) mg/dL Glucose 114 H (74-99) mg/dL POC Glucose (mg/dL) 219 H (75-99) mg/dL Procalcitonin (0.02-0.09) ng/mL Microbiology - Last 24 Hours (Table) 05/17/19 15:59 Blood Culture - Preliminary Blood No Growth after 96 hours Assessment and Plan Plan: 1. Sepsis of unclear etiology. Patient is currently on azithromycin only. COVID-[address] with infectious disease and pulmonary medicine. 2. Severe dyspnea and shortness of breath without acute respiratory failure secondary to combination of acute on chronic systolic heart failure, A. fib and COPD. 3. COPD with mild exacerbation. Consult with pulmonary medicine. Patient started on oral prednisone, DuoNeb treatments 4 times daily. 4. Ruled out Covid 19. 5. Acute acute kidney failure. Avoid nephrotoxic agents, recheck BMP. 6. Elevated d-dimer with negative VQ scan. 7. Elevated troponin, acute coronary syndrome ruled out by cardiology. Recent cardioversion and cardiac testing with recent heart catheter done by cardiology in March and known chronic occlusion on to the graft which patient has been on medical management. Consult cardiology. Continue aspirin 81 mg daily, Lipitor 80 mg at bedtime, Lopressor 100 mg twice daily. 8. Cardiomyopathy: Most likely ischemic with low ejection fraction at 35 percentile. Continue Lopressor 100 mg twice daily, lisinopril 40 mg daily, hydralazine 75 mg 3 times daily, Lasix 40 mg IV daily. 9. COPD with FEV1 at 35 percentile patient has been seen pulmonary regular basis continue O2 continue updraft treatment versus MDI and steroid inhaler at this point. 10. Hypertension. Continue hydralazine 75 mg 3 times a day, lisinopril 40 mg a day and metoprolol 100 mg twice a day resume medication when the blood pressure is better. 11. Recent history of A. fib with RVR: Post cardioversion done by cardiology patient was placed some but beta aracely did not require any other antiarrhythmic but was started on anticoagulation and patient apparently is not taking it for the last 2-3 days because he felt quite bit sick. 12. Paroxysmal atrial fibrillation, currently sinus rhythm. Patient will be resumed on eliquis 5 mg twice daily 13. Diabetes mellitus type 2, insulin requiring. Patient states that he normally takes NovoLog 8-10 units before meals and does not do insulin scale. Patient's Levemir will be resumed at home dose and continue NovoLog scale for now. Reassess in the morning. 13. Obstructive sleep apnea. Continue CPAP. 14. DVT prophylaxis. Patient will be resumed on eliquis 5 mg twice daily. 15. GI prophylaxis: Patient will be on pantoprazole 40 mg daily. 16. HSV suspected. Patient started on Valtrex 500 mg twice daily for 7 days. CODE STATUS: Full code. Discharge plan: home Impression and plan of care have been directed as dictated by the signing physician. Dipika Mendez nurse practitioner acting as scribe for signing physician.
[2019-05-22] MEDS: AZITHROMYCIN 500 MG TAB PO SCH (16:49)
[2019-05-22 17:16] LABS: Glucose,Whole Blood 286 mg/dL (75-99)
[2019-05-22 20:20] LABS: Glucose,Whole Blood 323 mg/dL (75-99)
[2019-05-22] MEDS: ATORVASTATIN 80 MG TAB PO SCH (20:28)
[2019-05-22] MEDS ORDERED: valACYclovir 500 MG TAB PO SCH (21:00)
[2019-05-22] MEDS: valACYclovir HCL 1,000 MG TABLET PO SCH (21:25)
--- NOTE | 2019-05-22 22:56 | PN ---
PROGRESS NOTE DATE OF SERVICE: 05/22/2019. REASON FOR FOLLOWUP: 1. Pneumonia. 2. Genital lesions. INTERVAL HISTORY: The patient is currently afebrile. The patient has been breathing more comfortably. Denies having any chest pain. Did have some cough. No sputum. No nausea. No vomiting. No abdominal pain. The patient has developed some rash on his penile shaft. The patient denies ever having history of genital herpes. Has not had any sexual activity for almost a year. PHYSICAL EXAMINATION: Blood pressure 115/63 with a pulse of 73, temperature of 98. He is 96% on room air. General description is a middle-aged male lying in bed in no distress. RESPIRATORY SYSTEM: Unlabored breathing. Decreased intensity of breath sounds. No wheeze. HEART: S1, S2. Regular rate and rhythm. ABDOMEN: Soft. No tenderness. LABS: Hemoglobin is 11.9, white count 10.4. BUN of 38, creatinine is 1.26. DIAGNOSTIC IMPRESSION AND PLAN: 1. Patient admitted to the hospital with chest pain, elevated white count, most likely pneumonia, possible community acquired. This patient clinically responded to the Rocephin and Zithromax. Rocephin was discontinued yesterday. Will continue Ceftin on discharge for another five days. 2. Patient with patient with genital lesions with no previous history of genital herpes HSV serology will be obtained. Valtrex dose to be adjusted up to 1 gram q.12 hours. Continue with supportive care. MMODL / IJN: [id number] /
[2019-05-22] MEDS: ZOLPIDEM 5 MG TAB PO SCH (23:20)
[2019-05-22] MEDS: INSULIN DETEMIR (LEVEMIR) 100 UNIT/ML SYR SQ SCH (23:21)
[2019-05-23 05:58] LABS: Glucose,Whole Blood 179 mg/dL (75-99)
[2019-05-23 06:26] LABS: MCHC 34.3 g/dL (31.0-37.0); MCV 81.6 fL (80.0-100.0); Mean Platelet Volume 10.5; RBC 4.29 m/uL (4.30-5.90); RDW 14.9 % (11.5-15.5); WBC 11.7 k/uL (3.8-10.6)
[2019-05-23 06:35] LABS: Platelet Count 199 k/uL (150-450)
[2019-05-23 06:51] LABS: Calcium 8.2 mg/dL (8.4-10.2); Potassium 3.9 mmol/L (3.5-5.1)
[2019-05-23] MEDS: PANTOPRAZOLE 40 MG TABLET PO SCH (07:05)
[2019-05-23] MEDS: INSULIN ASPART (NovoLOG) 100 UNIT/ML VIAL SQ SCH ×3 (07:05→17:06)
[2019-05-23] MEDS: MORPHINE SULFATE 2 MG/ML SYRINGE IVP PRN ×3 (07:12→21:33)
[2019-05-23] MEDS: IPRATROPIUM-ALBUTEROL 3 ML NEB INHALATION SCH ×4 (07:37→19:40)
[2019-05-23 09:05] VITALS: BMI 28.3
--- NOTE | 2019-05-23 09:16 | PN ---
PROGRESS NOTE Mr. Hirsch is in sinus rhythm. He has history of ischemic heart disease, previous bypass surgery with moderate mitral regurgitation. His shortness of breath has improved. I am going to switch him from IV to oral Lasix today. Dr. Mackenzie from Infectious Disease has seen him and increased the dose of Valtrex. From a cardiac standpoint, he is stable to be discharged after increased activity and ambulate. Vitals are stable. JVD is 1 cm, no carotid bruit. S1, S2 heard normally, short systolic murmur at the apex. Lungs are clear. Abdomen and lower extremity exam is unchanged. Patient is maintaining sinus rhythm, underwent cardioversion 2 weeks ago, same medical regimen. MMODL / IJN: [id number] /
[2019-05-23] MEDS: predniSONE 20 MG TAB PO SCH (09:30)
[2019-05-23] MEDS: GABAPENTIN 100 MG CAP PO SCH ×2 (09:30→21:16)
[2019-05-23] MEDS: METOPROLOL TARTRATE 50 MG TAB PO SCH ×2 (09:30→21:16)
[2019-05-23] MEDS: MULTIVITAMINS, THERA 1 EACH TAB PO SCH (09:30)
[2019-05-23] MEDS: FUROSEMIDE 40 MG TAB PO SCH ×2 (09:30→17:08)
[2019-05-23] MEDS: valACYclovir HCL 1,000 MG TABLET PO SCH ×2 (09:31→23:05)
[2019-05-23] MEDS: hydrALAZINE HCL 25 MG TAB PO SCH ×3 (09:31→21:15)
[2019-05-23] MEDS: ASPIRIN 81 MG PO SCH (09:31)
[2019-05-23] MEDS: cloNIDine HCL 0.2 MG TAB PO SCH ×3 (09:31→23:07)
[2019-05-23] MEDS: APIXABAN 5 MG TAB PO SCH ×2 (09:31→21:16)
[2019-05-23] MEDS: LISINOPRIL 20 MG TAB PO SCH (09:31)
[2019-05-23] MEDS: POTASSIUM CHLORIDE ER 10 MEQ TAB.ER.PRT PO SCH (09:31)
[2019-05-23] MEDS: NITROGLYCERIN OINT 1 INCH/GM PACKET TOPICAL SCH ×3 (09:31→23:07)
[2019-05-23] MEDS: metFORMIN 500 MG TAB PO SCH ×2 (09:32→17:08)
[2019-05-23 11:25] LABS: Glucose,Whole Blood 160 mg/dL (75-99)
[2019-05-23] MEDS: methylPREDNISolone SOD SUCCI 125 MG/2 ML VIAL IV SCH ×3 (11:37→23:04)
--- NOTE | 2019-05-23 13:06 | P.PN ---
Subjective Progress Note Date: 05/23/19 Principal diagnosis: Shortness of breath, left sided pleuritic type chest pain On 05/22/2019 patient seen in follow-up on selective care unit, he still has the left-sided pleuritic pain, and burning type sensation in his chest. Appears to be in no acute distress at rest, room air pulse ox is 93-97%, hemodynamically patient is stable, he is afebrile, COVID 19 has been ruled out. And patient has been on a combination of antibiotics including azithromycin, vancomycin and Roce phin. Blood cultures have shown no growth, patient has not been able to produce a sputum specimen for us, his been afebrile, chest x-ray on admission showed no focal infiltrate. Today's labs have been reviewed showing sodium of 138, potassium is 4.0, CO2 is 24, BUN is 38, creatinine is 1.26, patient is receiving a daily dose of IV Lasix, he is in negative fluid balance, lung sounds are positive for wheezing bilaterally, no crackles noted, he has been getting an albuterol, however still remains dyspneic, and bronchospastic on today's evaluation. Patient remains in sinus rhythm, he does have history of paroxysmal atrial fibrillation. He does have mild to moderate LV dysfunction with ejection fraction of 40-45 range. Cardiology service is following. On 05/23/2019 patient seen in follow-up on selective care unit, still bronchospastic with slight improvement in his left-sided pleuritic chest pain. Yesterday's CAT scan was reviewed showing a small right-sided pleural effusion and trace left pleural effusion, with some focal groundglass the right base likely representing atelectasis. This showed minimal emphysematous cysts, mild CHF, mild abdominal ascites and nonspecific gallbladder wall thickening. Vital signs are stable, room air pulse ox is 99%, hemodynamically patient is stable, afebrile,: 19 has been ruled out, remains on Zithromax, she is on oral dose of Lasix 40 mg twice daily, no crackles auscultated on today's exam, yesterday we started patient on oral prednisone 40 mg daily, today we'll increase the steroids to IV steroids at 60 mg every 6 for next 24 hours, continue with nebulized bronchodilators. Blood cultures have been negative, no fever or chills. Anticipate further improvement, and possible consideration for discharge home in the next 24 hours Objective - Vital Signs Vital signs: Vital Signs Temp 97.8 F 05/23/19 11:38 Pulse 72 05/23/19 11:45 Resp 18 05/23/19 11:38 BP 123/68 05/23/19 11:38 Pulse Ox 99 05/23/19 11:38 Intake & Output 05/22/19 05/23/19 05/23/19 18:59 06:59 18:59 Intake Total 814 300 654 Balance 814 300 654 Weight 82 kg 82 kg Intake: Oral 814 300 654 Other: # Voids 3 2 1 - Exam GENERAL EXAM: Alert, very pleasant 54-year-old white male, on room air, with a pulse ox of 93-97% comfortable in no apparent distress. HEAD: Normocephalic/atraumatic. EYES: Normal reaction of pupils, equal size. Conjunctiva pink, sclera white. NOSE: Clear with pink turbinates. THROAT: No erythema or exudates. NECK: No masses, no JVD, no thyroid enlargement, no adenopathy. CHEST: No chest wall deformity. Symmetrical expansion. LUNGS: Equal air entry with diffuse wheezes CVS: Regular rate and rhythm, normal S1 and S2, no gallops, no murmurs, no rubs ABDOMEN: Soft, nontender. No hepatosplenomegaly, normal bowel sounds, no guarding or rigidity. EXTREMITIES: No clubbing, no edema, no cyanosis, 2+ pulses and upper and lower extremities. MUSCULOSKELETAL: Muscle strength and tone normal. SPINE: No scoliosis or deformity SKIN: No rashes CENTRAL NERVOUS SYSTEM: Alert and oriented -3. No focal deficits, tone is normal in all 4 extremities. PSYCHIATRIC: Alert and oriented -3. Appropriate affect. Intact judgment and insight. - Labs CBC & Chem 7: 05/23/19 05:49 05/23/19 05:49 Labs: Abnormal Lab Results - Last 24 Hours (Table) 05/22/19 05/22/19 05/23/19 Range/Units 17:14 20:19 05:49 WBC 11.7 H (3.8-10.6) k/uL RBC 4.29 L (4.30-5.90) m/uL Hgb 12.0 L (13.0-17.5) gm/dL Hct 35.0 L (39.0-53.0) % Sodium (137-145) mmol/L BUN (9-20) mg/dL Glucose (74-99) mg/dL POC Glucose (mg/dL) 286 H 323 H (75-99) mg/dL Calcium (8.4-10.2) mg/dL 05/23/19 05/23/19 05/23/19 Range/Units 05:49 05:57 11:23 WBC (3.8-10.6) k/uL RBC (4.30-5.90) m/uL Hgb (13.0-17.5) gm/dL Hct (39.0-53.0) % Sodium 135 L (137-145) mmol/L BUN 37 H (9-20) mg/dL Glucose 177 H (74-99) mg/dL POC Glucose (mg/dL) 179 H 160 H (75-99) mg/dL Calcium 8.2 L (8.4-10.2) mg/dL Microbiology - Last 24 Hours (Table) 05/17/19 15:59 Blood Culture - Preliminary Blood No Growth after 120 hours Assessment and Plan Plan: Assessment: #1. Dyspnea, with left-sided pleuritic-type chest pain possibly related to viral pleuritis, Covid 19 has been ruled out #2. Mild troponin leak, rule out occult ischemia #3. History of coronary artery disease with previous bypass grafting #4. Diabetes mellitus with diabetic neuropathy #5. Progress for atrial fibrillation #6. History of deep venous thrombosis #7. Hyperlipidemia #8. Hypertension #9. Sleep apnea syndrome on CPAP therapy #10. History of chronic kidney disease Plan: Increase the oral prednisone to IV Solu-Medrol 60 mg every 6 hours, patient is still somewhat bronchospastic but reports some improvement in the left-sided pleuritic chest pain, and shortness of breath. Continue with oral dose Lasix,COVID 19 has been ruled out, patient has been afebrile, blood cultures h ave shown no growth. No fever or chills, room air pulse ox is within normal limits. If remains stable and improving may be considered for discharge home in the next 24 hours, computed tomography scan of the chest has been reviewed showing small right and trace left pleural effusions, no plans for thoracentesis. I performed a history & physical examination of the patient and discussed their management with my nurse practitioner, Natali Veras. I reviewed the nurse practitioner's note and agree with the documented findings and plan of care. Lung sounds are positive for diffuse wheezes throughout the lung alvares. The findings and the impression was discussed with the patient. I attest to the documentation by the nurse practitioner. Time with Patient: Less than 30
--- NOTE | 2019-05-23 13:40 | P.PN ---
Subjective Progress Note Date: 05/23/19 54-year-old male one of Dr. Montesinos's patient with past medical history of CAD, recent history of A. fib with RVR post cardioversion after transesophageal echocardiogram done in early April, history of severe COPD with FEV1 57 percentile seen pulmonary regular basis. Also patient is known to have history of CAD post CABG 5 vessel back in 2006 with angioplasty time to done since. Patient had recent history of non-ST MO with heart catheter done by Dr. Ga in March found to have severe triple vessel coronary artery disease with Patent ramus intermedius stent patent saphenous vein graft to the obtuse marginal branch patent MAE to the LAD but chronically occluded saphenous vein graft to the right coronary artery recommendation for medical management at this time and ejection fraction via echocardiogram was found to be 40-45 percentile only with severe concentric left ventricular hypertrophy with mild to moderate mitral regurgitation and mild tricuspid regurgitation. Patient was hospitalized in 04/24/2019 and end up going for transesophageal echocardiogram and cardioversion was done patient was started on anticoagulation with Eliquis along with beta aracely kept his pulse rate in the 60s and 70s. Patient apparently has not been taking his medication for the last 2-3 days he developed to have worsening shortness of breath and sharp left sided chest pain on and off worsening with exertion was associated with cough low-grade temperature patient's symptoms was a lot worse at nighttime he call his PCP and was instructed to go to the emergency department after the urgent care where influenza test was done and came back negative patient presented to the emergency department continue to be very symptomatic low-grade temperature with the blood pressure slightly bit low white blood cell was 27,000 left shift his troponin was quite but elevated CRP was 172 d-dimer was quite elevated as well and patient was in acute kidney failure. His creatinine is up to 2.1 from 1.0 a nd last admission chest x-ray showed cuffing around the bronchial area consistent with severe bronchitis with no clear infiltrate at the time. With his elevated d-dimer and VQ scan was performed and showed no pulmonary embolism at the time. Patient lactic acid was 4.7 was started on IV antibiotic and hydration no source of infection at this point was found his COVID-19 test was performed and patient was kept in isolation and admitted to the hospital for the above problem. 05/17: Patient has been afebrile, heart rate 88, blood pressure 155/95 before medications, pulse ox 97% on 3 L nasal cannula. ProBNP 5130. Repeat troponins 1.050, 0.869. Sodium 135, BUN 46, creatinine 1.51. Total bilirubin 1.2, AST 71, ALT 53, alkaline phosphatase 117. Lactic acid down to 1.6. WBC 16.5. COVID-19 results pending. Stool for C. diff is on collected patient is currently on heparin drip until seen by cardiology. Blood culture is status received. Consults are in place for pulmonary medicine, cardiology and infectious disease. 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 05/18: Covid 19 testing remains pending. Cardiology is following and it made no changes to medications. We will resume patient back on eliquis. Patient is complaining of chest pain with deep inspiration and continues to have some mild shortness of breath. Pulmonary has added and prednisone and albuterol inhaler. He is currently on antibiotics the form of azithromycin, ceftriaxone and vancomycin and also followed by Dr. Mackenzie. Patient is currently afebrile, heart rate 72, blood pressure 145/90, pulse ox 97% on room air. Repeat lab work reveals Sherry BC 12, hemoglobin 12.5, platelet count 99. Sodium 139, potassium 3.8, chloride 113, CO2 18, BUN 35 and creatinine 1.13. Blood sugars running anywhere between 118-223. Total bilirubin 0.8, AST 100, ALT 87, alkaline phosphatase 136. 05/19: Patient is laying down in bed in no apparent distress he continues to have a bit of her chest pain associated with the some shortness breath, he had a minimal cough, he did require some morphine sulfate yesterday for pleuritic ches t pain, he had a good bowel movement today he continues to be bloated, he denies any nausea or vomiting at this time he has no fever or chills he seems to be doing better overall. Covid 19 still pending. 05/20: Patient is sitting up in bed he appears to be quite edematous in his upper extremities and lower extremities as well as his face we will Coumadin dose of Lasix 40 mg IV push 1 now and repeat in daily basis discontinue oral Lasix continue with potassium supplement, he continues to have some left-sided chest pain on and off he continued to have some shortness of breath and some dry cough he has no fever or chills at this point in time. His Covid 19 is still pending. 05/21: Covid 19 is reported negative. Patient continues to have shortness of breath and Dr. Yates has ordered a CAT scan of the chest. Patient is also been complaining of continued rash on his penis that appears to be HSV. Patient will be started on Valtrex. Patient is afebrile, heart rate 63, blood pressure 188/105 with repeated 144/80, pulse ox 93% on room air. Sodium 138, potassium 4.0, chloride 108, CO2 24, BUN 30 creatinine 1.26. Blood sugars running between 96 and 219. CAT scan of the chest reveals moderate size right pleural effusion and trace left pleural effusion. Focal groundglass at the right base probably representing atelectasis. Less likely some type of pneumonitis. Given mild interstitial thickening, generalized anasarca change in possible pulmonary artery hypertension poorly for mild CHF. COPD with minimal emphysematous cysts. Mild upper abdominal ascites and nonspecific gallbladder wall thickening. Findings may begin seen in the setting of fluid overload. Patient is currently on IV Lasix 40 mg daily 05/22: Patient has been seen by Dr. Yates and increase steroids to Solu-Medrol 60 every 6 hours with plan to continue nebulizer treatments. Patient is currently on oral Lasix 40 mg twice daily. Patient's continues to have some shortness of breath, chest pain. Patient also states rash has not improved. He received a first dose of Valtrex yesterday. Patient has been afebrile, heart rate 65, blood pressure 122/65, pulse ox 98% on room air. Repeat blood work reveals WBC 11.7, hemoglobin 12.0. Sodium 135, BUN 37 creatinine 1.19. Blood sugars running between 177 and 323. Objective - Vital Signs Vital signs: Vital Signs Temp 98 F 05/23/19 09:00 Pulse 65 05/23/19 09:00 Resp 18 05/23/19 09:00 BP 122/65 05/23/19 09:00 Pulse Ox 98 05/23/19 09:00 Intake & Output 05/22/19 05/23/19 05/23/19 18:59 06:59 18:59 Intake Total 814 300 354 Balance 814 300 354 Weight 82 kg 82 kg Intake: Oral 814 300 354 Other: # Voids 3 2 - Exam Review of Systems CONSTITUTIONAL: Well-developed no acute respiratory distress. Denies fever, denies chills. EYES: No icterus sclerae, no conjunctivitis. EARS, NOSE, MOUTH, THROAT, and FACE: No sore throat, lymphadenopathy, carotid bruits or deformity. RESPIRATORY: Positive chest pain with inspiration, reports shortness of breath, cough wheezes, shortness breath with activity. CARDIOVASCULAR: Positive PND orthopnea palpitation GASTROINTESTINAL: Positive abdominal pain nausea with no vomiting positive decrease of appetite with generalized weakness. GENITOURINARY: Negative for Hematuria or UTI, no kidney stones. INTEGUMENT/BREAST: Negative for any muscular injury with mild osteoarthritis.. HEMATOLOGIC/LYMPHATIC: Negative for bleed or purpura. MUSCULOSKELTAL: Negative for Myalgia or arthralgia. NEURLOGICAL: No LOC, Sz or syncope, blurred vision dizziness or abnormality.. BEHAVIORAL/PSYCH: Negative. ENDOCRINE: Negative. Physical examination General Appearance: Alert, cooperative, no distress, appears stated age. Neck HEENT: Supple, no lymphadenopathy, no thyroid enlargement, no carotid bruits. Lungs: Decreased breath some bilaterally with mild expiratory wheezes. Chest Wall: Decrease expansion with deep inspiration no tenderness and no deformity was found on exam, no costochondral pain or discomfort. Heart: Irregular rhythm and rate , S1, S2 positive history positive JVD with systolic murmur. Back: Symmetric, no curvature, ROM normal, no CVA tenderness. Abdomen: Soft, non-tender, bowel sounds active all four quadrants, no masses, no organomegaly. Extremities: Trace edema decreased positive sinus pedis bilaterally with slight discoloration below the knee. Pulses: 2+ and symmetric. Skin: Skin color, texture, tugor normal, rashe on penis. Neurologic: Alert oriented x3 cranial nerves II through XII intact, no motor deficit, no abnormal balance or gait. - Labs CBC & Chem 7: 05/23/19 05:49 05/23/19 05:49 Labs: Abnormal Lab Results - Last 24 Hours (Table) 05/21/19 05/22/19 05/22/19 Range/Units 06:41 11:37 17:14 WBC (3.8-10.6) k/uL RBC (4.30-5.90) m/uL Hgb (13.0-17.5) gm/dL Hct (39.0-53.0) % Sodium (137-145) mmol/L BUN (9-20) mg/dL Glucose (74-99) mg/dL POC Glucose (mg/dL) 113 H 286 H (75-99) mg/dL Calcium (8.4-10.2) mg/dL Procalcitonin 8.44 H (0.02-0.09) ng/mL 05/22/19 05/23/19 05/23/19 Range/Units 20:19 05:49 05:49 WBC 11.7 H (3.8-10.6) k/uL RBC 4.29 L (4.30-5.90) m/uL Hgb 12.0 L (13.0-17.5) gm/dL Hct 35.0 L (39.0-53.0) % Sodium 135 L (137-145) mmol/L BUN 37 H (9-20) mg/dL Glucose 177 H (74-99) mg/dL POC Glucose (mg/dL) 323 H (75-99) mg/dL Calcium 8.2 L (8.4-10.2) mg/dL Procalcitonin (0.02-0.09) ng/mL 05/23/19 Range/Units 05:57 WBC (3.8-10.6) k/uL RBC (4.30-5.90) m/uL Hgb (13.0-17.5) gm/dL Hct (39.0-53.0) % Sodium (137-145) mmol/L BUN (9-20) mg/dL Glucose (74-99) mg/dL POC Glucose (mg/dL) 179 H (75-99) mg/dL Calcium (8.4-10.2) mg/dL Procalcitonin (0.02-0.09) ng/mL Microbiology - Last 24 Hours (Table) 05/17/19 15:59 Blood Culture - Preliminary Blood No Growth after 120 hours Assessment and Plan Plan: 1. Sepsis of unclear etiology. Patient is currently on azithromycin only. COVID-[address] with infectious disease and pulmonary medicine. 2. Severe dyspnea and shortness of breath without acute respiratory failure secondary to combination of acute on chronic systolic heart failure, A. fib and COPD. 3. COPD with mild exacerbation. Consult with pulmonary medicine. Patient started on oral prednisone transition IV steroids, DuoNeb treatments 4 times daily. 4. Ruled out Covid 19. 5. Acute acute kidney failure. Avoid nephrotoxic agents, recheck BMP. 6. Elevated d-dimer with negative VQ scan. 7. Elevated troponin, acute coronary syndrome ruled out by cardiology. Recent cardioversion and cardiac testing with recent heart catheter done by cardiology in March and known chronic occlusion on to the graft which patient has been on medical management. Consult cardiology. Continue aspirin 81 mg daily, Lipitor 80 mg at bedtime, Lopressor 100 mg twice daily. 8. Cardiomyopathy: Most likely ischemic with low ejection fraction at 35 per centile. Continue Lopressor 100 mg twice daily, lisinopril 40 mg daily, hydralazine 75 mg 3 times daily, Lasix 40 mg IV daily. 9. COPD with FEV1 at 35 percentile patient has been seen pulmonary regular basis continue O2 continue updraft treatment versus MDI and steroid inhaler at this point. 10. Hypertension. Continue hydralazine 75 mg 3 times a day, lisinopril 40 mg a day and metoprolol 100 mg twice a day resume medication when the blood pressure is better. 11. Recent history of A. fib with RVR: Post cardioversion done by cardiology patient was placed some but beta aracely did not require any other antiarrhythmic but was started on anticoagulation and patient apparently is not taking it for the last 2-3 days because he felt quite bit sick. 12. Paroxysmal atrial fibrillation, currently sinus rhythm. Patient will be resumed on eliquis 5 mg twice daily 13. Diabetes mellitus type 2, insulin requiring. Patient states that he normally takes NovoLog 8-10 units before meals and does not do insulin scale. Patient's Levemir will be resumed at home dose and continue NovoLog scale for now. Reassess in the morning. 13. Obstructive sleep apnea. Continue CPAP. 14. DVT prophylaxis. Patient will be resumed on eliquis 5 mg twice daily. 15. GI prophylaxis: Patient will be on pantoprazole 40 mg daily. 16. HSV suspected. Patient started on Valtrex 500 mg twice daily for 7 days. CODE STATUS: Full code. Discharge plan: home Impression and plan of care have been directed as dictated by the signing physician. Dipika Mendez nurse practitioner acting as scribe for signing physician.
[2019-05-23 14:10] LABS: HSV I IgG Interp Equivocal (NEGATIVE); HSV II IgG Interp NEGATIVE (NEGATIVE)
[2019-05-23 16:48] LABS: Glucose,Whole Blood 367 mg/dL (75-99)
[2019-05-23] MEDS: AZITHROMYCIN 500 MG TAB PO SCH (17:06)
--- NOTE | 2019-05-23 19:34 | PN ---
PROGRESS NOTE DATE OF SERVICE: 05/23/2019 REASON FOR FOLLOWUP: 1. Pneumonia. 2. Possible genital herpes. INTERVAL HISTORY: The patient is currently afebrile. The patient's chest pain has decreased in intensity. He still has some cough; no sputum. No nausea, no vomiting, no abdominal pain or diarrhea. PHYSICAL EXAMINATION: Blood pressure 134/74 with a pulse of 73, temperature 97.6. He is 97% on room air. General description is a middle-aged male lying in bed in no distress. RESPIRATORY SYSTEM: Unlabored breathing. Clear to auscultation anteriorly. HEART: S1, S2. Regular rate and rhythm. ABDOMEN: Soft. No tenderness. LABS/IMAGING: Hemoglobin is 12, white count 11.7, BUN of 37, creatinine 1.19. Blood culture has been negative. The patient did have a CT of the chest completed yesterday which shows moderate-sized pleural effusion and trace effusion on the left side with concern for possible atelectasis or pneumonitis. DIAGNOSTIC IMPRESSION AND PLAN: 1. Patient admitted to hospital with chest pain with large pleural effusion on the right side. The patient was unable to provide any sputum. His blood culture has been negative. We will keep the patient on IV Rocephin while inpatient, transitioning him to Ceftin on discharge. 2. Patient with a genital vesicle lesion, concern for possible genital herpes. Continue with Valtrex and monitor his clinical course closely. MMODL / IJN: [id number] /
[2019-05-23 20:38] LABS: Glucose,Whole Blood 416 mg/dL (75-99)
[2019-05-23] MEDS ORDERED: INSULIN DETEMIR (LEVEMIR) 100 UNIT/ML SYR SQ SCH (21:00)
[2019-05-23] MEDS ORDERED: INSULIN ASPART (NovoLOG) 100 UNIT/ML VIAL SQ SCH (21:00)
[2019-05-23] MEDS: ATORVASTATIN 80 MG TAB PO SCH (21:16)
[2019-05-23] MEDS: ZOLPIDEM 5 MG TAB PO SCH (21:16)
[2019-05-23 21:17] LABS: Glucose,Whole Blood 378 mg/dL (75-99)
[2019-05-23] MEDS: INSULIN REGULAR 100 UNIT in SODIUM CHLORIDE 0.9% 100 ML IV SCH (21:22)
[2019-05-23 21:51] LABS: Glucose,Whole Blood 384 mg/dL (75-99)
[2019-05-23 22:23] LABS: Glucose,Whole Blood 343 mg/dL (75-99)
[2019-05-23 22:57] LABS: Glucose,Whole Blood 320 mg/dL (75-99)
[2019-05-23 23:29] LABS: Glucose,Whole Blood 302 mg/dL (75-99)
[2019-05-24 00:03] LABS: Glucose,Whole Blood 307 mg/dL (75-99)
[2019-05-24 00:36] LABS: Glucose,Whole Blood 286 mg/dL (75-99)
[2019-05-24 01:11] LABS: Glucose,Whole Blood 223 mg/dL (75-99)
[2019-05-24 03:18] LABS: Glucose,Whole Blood 145 mg/dL (75-99)
[2019-05-24] MEDS: methylPREDNISolone SOD SUCCI 125 MG/2 ML VIAL IV SCH ×2 (05:02→12:31)
[2019-05-24] MEDS: PANTOPRAZOLE 40 MG TABLET PO SCH (05:02)
[2019-05-24] MEDS: MORPHINE SULFATE 2 MG/ML SYRINGE IVP PRN ×3 (05:03→20:34)
[2019-05-24 05:09] LABS: Glucose,Whole Blood 125 mg/dL (75-99)
[2019-05-24 06:13] LABS: Glucose,Whole Blood 135 mg/dL (75-99)
[2019-05-24] MEDS: metFORMIN 500 MG TAB PO SCH ×2 (06:20→16:58)
[2019-05-24 07:30] LABS: Glucose,Whole Blood 159 mg/dL (75-99)
[2019-05-24] MEDS ORDERED: INSULIN ASPART (NovoLOG) 100 UNIT/ML VIAL SQ SCH ×2 (07:30)
[2019-05-24] MEDS: IPRATROPIUM-ALBUTEROL 3 ML NEB INHALATION SCH ×5 (07:47→21:00)
[2019-05-24] MEDS: METOPROLOL TARTRATE 50 MG TAB PO SCH ×2 (08:20→22:24)
[2019-05-24] MEDS: LISINOPRIL 20 MG TAB PO SCH (08:21)
[2019-05-24] MEDS: APIXABAN 5 MG TAB PO SCH ×2 (08:21→22:26)
[2019-05-24] MEDS: MULTIVITAMINS, THERA 1 EACH TAB PO SCH (08:21)
[2019-05-24] MEDS: GABAPENTIN 100 MG CAP PO SCH ×2 (08:21→22:25)
[2019-05-24] MEDS: hydrALAZINE HCL 25 MG TAB PO SCH ×3 (08:21→22:25)
[2019-05-24] MEDS: ASPIRIN 81 MG PO SCH (08:21)
[2019-05-24] MEDS: cloNIDine HCL 0.2 MG TAB PO SCH ×3 (08:21→22:26)
[2019-05-24] MEDS: POTASSIUM CHLORIDE ER 10 MEQ TAB.ER.PRT PO SCH (08:21)
[2019-05-24] MEDS: FUROSEMIDE 40 MG TAB PO SCH ×2 (08:22→16:59)
[2019-05-24] MEDS: NITROGLYCERIN OINT 1 INCH/GM PACKET TOPICAL SCH ×2 (08:22→17:09)
[2019-05-24] MEDS: valACYclovir HCL 1,000 MG TABLET PO SCH ×2 (08:28→22:28)
[2019-05-24 09:25] LABS: Glucose,Whole Blood 237 mg/dL (75-99)
[2019-05-24 11:31] LABS: Glucose,Whole Blood 230 mg/dL (75-99)
[2019-05-24 13:31] LABS: Glucose,Whole Blood 187 mg/dL (75-99)
[2019-05-24] MEDS: INSULIN REGULAR 100 UNIT in SODIUM CHLORIDE 0.9% 100 ML IV SCH (13:36)
--- NOTE | 2019-05-24 13:44 | P.PN ---
Subjective Progress Note Date: 05/24/19 Principal diagnosis: Shortness of breath, left sided pleuritic type chest pain On 05/22/2019 patient seen in follow-up on selective care unit, he still has the left-sided pleuritic pain, and burning type sensation in his chest. Appears to be in no acute distress at rest, room air pulse ox is 93-97%, hemodynamically patient is stable, he is afebrile, COVID 19 has been ruled out. And patient has been on a combination of antibiotics including azithromycin, vancomycin and Roce phin. Blood cultures have shown no growth, patient has not been able to produce a sputum specimen for us, his been afebrile, chest x-ray on admission showed no focal infiltrate. Today's labs have been reviewed showing sodium of 138, potassium is 4.0, CO2 is 24, BUN is 38, creatinine is 1.26, patient is receiving a daily dose of IV Lasix, he is in negative fluid balance, lung sounds are positive for wheezing bilaterally, no crackles noted, he has been getting an albuterol, however still remains dyspneic, and bronchospastic on today's evaluation. Patient remains in sinus rhythm, he does have history of paroxysmal atrial fibrillation. He does have mild to moderate LV dysfunction with ejection fraction of 40-45 range. Cardiology service is following. On 05/23/2019 patient seen in follow-up on selective care unit, still bronchospastic with slight improvement in his left-sided pleuritic chest pain. Yesterday's CAT scan was reviewed showing a small right-sided pleural effusion and trace left pleural effusion, with some focal groundglass the right base likely representing atelectasis. This showed minimal emphysematous cysts, mild CHF, mild abdominal ascites and nonspecific gallbladder wall thickening. Vital signs are stable, room air pulse ox is 99%, hemodynamically patient is stable, afebrile,: 19 has been ruled out, remains on Zithromax, she is on oral dose of Lasix 40 mg twice daily, no crackles auscultated on today's exam, yesterday we started patient on oral prednisone 40 mg daily, today we'll increase the steroids to IV steroids at 60 mg every 6 for next 24 hours, continue with nebulized bronchodilators. Blood cultures have been negative, no fever or chills. Anticipate further improvement, and possible consideration for discharge home in the next 24 hours On 05/24/2019 patient seen in follow-up on selective care unit. He still is coughing at times, nonproductive cough, complaining of some slight discomfort in the right chest wall, no discomfort in the left chest. Lung sounds are essentially clear on today's exam, no wheezing, we'll put the patient on IV steroids for 24 hours, he is currently on 60 mg every 6 hours, he is on breathing treatments, he is on Zithromax and Rocephin, oral Lasix this CT of the chest has been reviewed showing small right pleural effusion and trace left pleural effusion, with some focal groundglass the right base, likely representing atelectasis, patient is covered with Zithromax and Rocephin, blood cultures have been negative, his been afebrile, room air pulse ox is 92%, patient states he's been up to the bathroom, tolerated activity fairly well, likely stable, from pulmonary perspective he could be considered for discharge home Objective - Vital Signs Vital signs: Vital Signs Temp 97.8 F 05/24/19 07:51 Pulse 68 05/24/19 12:21 Resp 16 05/24/19 11:21 BP 130/70 05/24/19 11:21 Pulse Ox 92 L 05/24/19 11:21 Intake & Output 05/23/19 05/24/19 05/24/19 18:59 06:59 18:59 Intake Total 1470 185.716 735.284 Output Total 250 Balance 1470 -64.284 735.284 Weight 82 kg 83.2 kg Intake: Intake, IV Titration 185.716 15.284 Amount Insulin Regular 100 unit 85.716 15.284 In Sodium Chloride 0.9% 100 ml @ Titrate IV .Q0M [facility] Rx#:[id number] cefTRIAXone 1 gm In 100 Sodium Chloride 0.9% 50 ml @ 100 mls/hr IVPB Q24HR [facility] Rx#:[id number] Oral 1470 720 Output: Urine 250 Other: Voiding Method Toilet # Voids 2 2 - Exam GENERAL EXAM: Alert, very pleasant 54-year-old white male, on room air, with a pulse ox of 93-97% comfortable in no apparent distress. HEAD: Normocephalic/atraumatic. EYES: Normal reaction of pupils, equal size. Conjunctiva pink, sclera white. NOSE: Clear with pink turbinates. THROAT: No erythema or exudates. NECK: No masses, no JVD, no thyroid enlargement, no adenopathy. CHEST: No chest wall deformity. Symmetrical expansion. LUNGS: Equal air entry, no wheezes, no rhonchi, no rales CVS: Regular rate and rhythm, normal S1 and S2, no gallops, no murmurs, no rubs ABDOMEN: Soft, nontender. No hepatosplenomegaly, normal bowel sounds, no guarding or rigidity. EXTREMITIES: No clubbing, no edema, no cyanosis, 2+ pulses and upper and lower extremities. MUSCULOSKELETAL: Muscle strength and tone normal. SPINE: No scoliosis or deformity SKIN: No rashes CENTRAL NERVOUS SYSTEM: Alert and oriented -3. No focal deficits, tone is normal in all 4 extremities. PSYCHIATRIC: Alert and oriented -3. Appropriate affect. Intact judgment and insight. - Labs CBC & Chem 7: 05/23/19 05:49 05/23/19 05:49 Labs: Abnormal Lab Results - Last 24 Hours (Table) 05/23/19 05/23/19 05/23/19 Range/Units 05:49 16:46 20:37 POC Glucose (mg/dL) 367 H 416 H (75-99) mg/dL HSV I IgG Interpret Equivocal H (NEGATIVE) VZV IgG Interpret POSITIVE H (NEGATIVE) 05/23/19 05/23/19 05/23/19 Range/Units 21:15 21:48 22:21 POC Glucose (mg/dL) 378 H 384 H 343 H (75-99) mg/dL HSV I IgG Interpret (NEGATIVE) VZV IgG Interpret (NEGATIVE) 05/23/19 05/23/19 05/24/19 Range/Units 22:55 23:27 00:00 POC Glucose (mg/dL) 320 H 302 H 307 H (75-99) mg/dL HSV I IgG Interpret (NEGATIVE) VZV IgG Interpret (NEGATIVE) 05/24/19 05/24/19 05/24/19 Range/Units 00:34 01:10 03:15 POC Glucose (mg/dL) 286 H 223 H 145 H (75-99) mg/dL HSV I IgG Interpret (NEGATIVE) VZV IgG Interpret (NEGATIVE) 04/01/20 04/01/20 04/01/20 Range/Units 05:07 06:11 07:28 POC Glucose (mg/dL) 125 H 135 H 159 H (75-99) mg/dL HSV I IgG Interpret (NEGATIVE) VZV IgG Interpret (NEGATIVE) 05/24/19 05/24/19 05/24/19 Range/Units 09:24 11:20 13:30 POC Glucose (mg/dL) 237 H 230 H 187 H (75-99) mg/dL HSV I IgG Interpret (NEGATIVE) VZV IgG Interpret (NEGATIVE) Microbiology - Last 24 Hours (Table) 05/17/19 15:59 Blood Culture - Final Blood No Growth after 144 hours Assessment and Plan Plan: Assessment: #1. Dyspnea, with left-sided pleuritic-type chest pain possibly related to viral pleuritis, Covid 19 has been ruled out, improved #2. Mild troponin leak, rule out occult ischemia #3. History of coronary artery disease with previous bypass grafting #4. Diabetes mellitus with diabetic neuropathy #5. Progress for atrial fibrillation #6. History of deep venous thrombosis #7. Hyperlipidemia #8. Hypertension #9. Sleep apnea syndrome on CPAP therapy #10. History of chronic kidney disease Plan: Continue same antibiotics, clinically patient is stable, improving, left-sided pleuritic chest pain has resolved, patient is complaining of some mild right- sided pleuritic chest pain, CT of the chest from 2 days ago showed a small right-sided pleural effusion, and atelectasis, possibility of area of pneumonitis, vital signs are stable, no fever or chills, patient is on room air, increase activity as tolerated, no wheezing and today's exam, much less bronchospastic and dyspneic on today's exam, from pulmonary perspective patient can be considered for discharge home. I performed a history & physical examination of the patient and discussed their management with my nurse practitioner, Natali Veras. I reviewed the nurse practitioner's note and agree with the documented findings and plan of care. Lung sounds are positive for diffuse wheezes throughout the lung alvares. The findings and the impression was discussed with the patient. I attest to the documentation by the nurse practitioner. Time with Patient: Less than 30
--- NOTE | 2019-05-24 14:28 | P.PN ---
Subjective Progress Note Date: 05/24/19 54-year-old male one of Dr. Montesinos's patient with past medical history of CAD, recent history of A. fib with RVR post cardioversion after transesophageal echocardiogram done in early April, history of severe COPD with FEV1 57 percentile seen pulmonary regular basis. Also patient is known to have history of CAD post CABG 5 vessel back in 2006 with angioplasty time to done since. Patient had recent history of non-ST VT with heart catheter done by Dr. Ga in March found to have severe triple vessel coronary artery disease with Patent ramus intermedius stent patent saphenous vein graft to the obtuse marginal branch patent MAE to the LAD but chronically occluded saphenous vein graft to the right coronary artery recommendation for medical management at this time and ejection fraction via echocardiogram was found to be 40-45 percentile only with severe concentric left ventricular hypertrophy with mild to moderate mitral regurgitation and mild tricuspid regurgitation. Patient was hospitalized in 04/24/2019 and end up going for transesophageal echocardiogram and cardioversion was done patient was started on anticoagulation with Eliquis along with beta aracely kept his pulse rate in the 60s and 70s. Patient apparently has not been taking his medication for the last 2-3 days he developed to have worsening shortness of breath and sharp left sided chest pain on and off worsening with exertion was associated with cough low-grade temperature patient's symptoms was a lot worse at nighttime he call his PCP and was instructed to go to the emergency department after the urgent care where influenza test was done and came back negative patient presented to the emergency department continue to be very symptomatic low-grade temperature with the blood pressure slightly bit low white blood cell was 27,000 left shift his troponin was quite but elevated CRP was 172 d-dimer was quite elevated as well and patient was in acute kidney failure. His creatinine is up to 2.1 from 1.0 a nd last admission chest x-ray showed cuffing around the bronchial area consistent with severe bronchitis with no clear infiltrate at the time. With his elevated d-dimer and VQ scan was performed and showed no pulmonary embolism at the time. Patient lactic acid was 4.7 was started on IV antibiotic and hydration no source of infection at this point was found his COVID-19 test was performed and patient was kept in isolation and admitted to the hospital for the above problem. 05/17: Patient has been afebrile, heart rate 88, blood pressure 155/95 before medications, pulse ox 97% on 3 L nasal cannula. ProBNP 5130. Repeat troponins 1.050, 0.869. Sodium 135, BUN 46, creatinine 1.51. Total bilirubin 1.2, AST 71, ALT 53, alkaline phosphatase 117. Lactic acid down to 1.6. WBC 16.5. COVID-19 results pending. Stool for C. diff is on collected patient is currently on heparin drip until seen by cardiology. Blood culture is status received. Consults are in place for pulmonary medicine, cardiology and infectious disease. fur ironer is sinus rhythm. 05/18: Covid 19 testing remains pending. Cardiology is following and it made no changes to medications. We will resume patient back on eliquis. Patient is complaining of chest pain with deep inspiration and continues to have some mild shortness of breath. Pulmonary has added and prednisone and albuterol inhaler. He is currently on antibiotics the form of azithromycin, ceftriaxone and vancomycin and also followed by Dr. Mackenzie. Patient is currently afebrile, heart rate 72, blood pressure 145/90, pulse ox 97% on room air. Repeat lab work reveals Sherry BC 12, hemoglobin 12.5, platelet count 99. Sodium 139, potassium 3.8, chloride 113, CO2 18, BUN 35 and creatinine 1.13. Blood sugars running anywhere between 118-223. Total bilirubin 0.8, AST 100, ALT 87, alkaline phosphatase 136. 05/19: Patient is laying down in bed in no apparent distress he continues to have a bit of her chest pain associated with the some shortness breath, he had a minimal cough, he did require some morphine sulfate yesterday for pleuritic ches t pain, he had a good bowel movement today he continues to be bloated, he denies any nausea or vomiting at this time he has no fever or chills he seems to be doing better overall. Covid 19 still pending. 05/20: Patient is sitting up in bed he appears to be quite edematous in his upper extremities and lower extremities as well as his face we will Coumadin dose of Lasix 40 mg IV push 1 now and repeat in daily basis discontinue oral Lasix continue with potassium supplement, he continues to have some left-sided chest pain on and off he continued to have some shortness of breath and some dry cough he has no fever or chills at this point in time. His Covid 19 is still pending. 05/21: Covid 19 is reported negative. Patient continues to have shortness of breath and Dr. Yates has ordered a CAT scan of the chest. Patient is also been complaining of continued rash on his penis that appears to be HSV. Patient will be started on Valtrex. Patient is afebrile, heart rate 63, blood pressure 188/105 with repeated 144/80, pulse ox 93% on room air. Sodium 138, potassium 4.0, chloride 108, CO2 24, BUN 30 creatinine 1.26. Blood sugars running between 96 and 219. CAT scan of the chest reveals moderate size right pleural effusion and trace left pleural effusion. Focal groundglass at the right base probably representing atelectasis. Less likely some type of pneumonitis. Given mild interstitial thickening, generalized anasarca change in possible pulmonary artery hypertension poorly for mild CHF. COPD with minimal emphysematous cysts. Mild upper abdominal ascites and nonspecific gallbladder wall thickening. Findings may begin seen in the setting of fluid overload. Patient is currently on IV Lasix 40 mg daily 05/22: Patient has been seen by Dr. Yates and increase steroids to Solu-Medrol 60 every 6 hours with plan to continue nebulizer treatments. Patient is currently on oral Lasix 40 mg twice daily. Patient's continues to have some shortness of breath, chest pain. Patient also states rash has not improved. He received a first dose of Valtrex yesterday. Patient has been afebrile, heart rate 65, blood pressure 122/65, pulse ox 98% on room air. Repeat blood work reveals WBC 11.7, hemoglobin 12.0. Sodium 135, BUN 37 creatinine 1.19. Blood sugars running between 177 and 323. 05/23: Overnight, patient blood sugar went extremely high in the 400s and he was started on insulin drip. He continues to complain of right-sided chest pain. Patient is been afebrile, heart rate 72, blood pressure 130/70, pulse ox 92% on room air. Varicella-zoster IgG antibody is positive. HSV 1 testing is equivocal with recommendations for repeat testing in 4-6 weeks. HSV-[address] Mackenzie was increased Valtrex 1000 mg twice daily. The patient remains on Solu-Medrol 60 mg IV every 6 hours with no plan to change this today. Patient is also on Zithromax and Rocephin. Dr. Yates has cleared the patient for discharge home. We and is to monitor him overnight and plan for discharge tomorrow. Objective - Vital Signs Vital signs: Vital Signs Temp 97.8 F 05/24/19 07:51 Pulse 68 05/24/19 08:01 Resp 16 05/24/19 07:51 BP 127/72 05/24/19 07:51 Pulse Ox 97 05/24/19 07:51 Intake & Output 05/23/19 05/24/19 05/24/19 18:59 06:59 18:59 Intake Total 1470 185.716 246.129 Output Total 250 Balance 1470 -64.284 246.129 Weight 82 kg 83.2 kg Intake: Intake, IV Titration 185.716 6.129 Amount Insulin Regular 100 unit 85.716 6.129 In Sodium Chloride 0.9% 100 ml @ Titrate IV .Q0M [facility] Rx#:[id number] cefTRIAXone 1 gm In 100 Sodium Chloride 0.9% 50 ml @ 100 mls/hr IVPB Q24HR [facility] Rx#:[id number] Oral 1470 240 Output: Urine 250 Other: Voiding Method Toilet # Voids 2 2 - Exam Review of Systems CONSTITUTIONAL: Well-developed no acute respiratory distress. Denies fever, denies chills. EYES: No icterus sclerae, no conjunctivitis. EARS, NOSE, MOUTH, THROAT, and FACE: No sore throat, lymphadenopathy, carotid bruits or deformity. RESPIRATORY: Positive chest pain with inspiration, reports shortness of breath, cough wheezes, shortness breath with activity. CARDIOVASCULAR: Positive PND orthopnea palpitation GASTROINTESTINAL: Denies abdominal pain denies nausea with no vomiting positive decrease of appetite with generalized weakness. GENITOURINARY: Negative for Hematuria or UTI, no kidney stones. INTEGUMENT/BREAST: Negative for any muscular injury with mild osteoarthritis.. HEMATOLOGIC/LYMPHATIC: Negative for bleed or purpura. MUSCULOSKELTAL: Negative for Myalgia or arthralgia. NEURLOGICAL: No LOC, Sz or syncope, blurred vision dizziness or abnormality.. BEHAVIORAL/PSYCH: Negative. ENDOCRINE: Abnormal blood sugar. Physical examination General Appearance: Alert, cooperative, no distress, appears stated age. Neck HEENT: Supple, no lymphadenopathy, no thyroid enlargement, no carotid bruits. Lungs: Decreased breath some bilaterally. Chest Wall: Decrease expansion with deep inspiration no tenderness and no deformity was found on exam, no costochondral pain or discomfort. Heart: Irregular rhythm and rate , S1, S2 positive history positive JVD with systolic murmur. Back: Symmetric, no curvature, ROM normal, no CVA tenderness. Abdomen: Soft, non-tender, bowel sounds active all four quadrants, no masses, no organomegaly. Extremities: Trace edema decreased positive sinus pedis bilaterally with slight discoloration below the knee. Pulses: 2+ and symmetric. Skin: Skin color, texture, tugor normal, rashe on penis. Neurologic: Alert oriented x3 cranial nerves II through XII intact, no motor deficit, no abnormal balance or gait. - Labs CBC & Chem 7: 05/23/19 05:49 05/23/19 05:49 Labs: Abnormal Lab Results - Last 24 Hours (Table) 05/23/19 05/23/19 05/23/19 Range/Units 05:49 11:23 16:46 POC Glucose (mg/dL) 160 H 367 H (75-99) mg/dL HSV I IgG Interpret Equivocal H (NEGATIVE) VZV IgG Interpret POSITIVE H (NEGATIVE) 05/23/19 05/23/19 05/23/19 Range/Units 20:37 21:15 21:48 POC Glucose (mg/dL) 416 H 378 H 384 H (75-99) mg/dL HSV I IgG Interpret (NEGATIVE) VZV IgG Interpret (NEGATIVE) 05/23/19 05/23/19 05/23/19 Range/Units 22:21 22:55 23:27 POC Glucose (mg/dL) 343 H 320 H 302 H (75-99) mg/dL HSV I IgG Interpret (NEGATIVE) VZV IgG Interpret (NEGATIVE) 05/24/19 05/24/19 05/24/19 Range/Units 00:00 00:34 01:10 POC Glucose (mg/dL) 307 H 286 H 223 H (75-99) mg/dL HSV I IgG Interpret (NEGATIVE) VZV IgG Interpret (NEGATIVE) 05/24/19 05/24/19 05/24/19 Range/Units 03:15 05:07 06:11 POC Glucose (mg/dL) 145 H 125 H 135 H (75-99) mg/dL HSV I IgG Interpret (NEGATIVE) VZV IgG Interpret (NEGATIVE) 05/24/19 05/24/19 Range/Units 07:28 09:24 POC Glucose (mg/dL) 159 H 237 H (75-99) mg/dL HSV I IgG Interpret (NEGATIVE) VZV IgG Interpret (NEGATIVE) Microbiology - Last 24 Hours (Table) 05/17/19 15:59 Blood Culture - Final Blood No Growth after 144 hours Assessment and Plan Plan: 1. Sepsis of unclear etiology. Rocephin to be transitioned to Ceftin at discharge. COVID-[address] with infectious disease and pulmonary medicine. 2. Severe dyspnea and shortness of breath without acute respiratory failure secondary to combination of acute on chronic systolic heart failure, A. fib and COPD. 3. COPD with mild exacerbation. Consult with pulmonary medicine. Patient started on oral prednisone transition IV steroids, DuoNeb treatments 4 times daily. 4. Ruled out Covid 19. 5. Acute acute kidney failure. Avoid nephrotoxic agents, recheck BMP. 6. Elevated d-dimer with negative VQ scan. 7. Elevated troponin, acute coronary syndrome ruled out by cardiology. Recent cardioversion and cardiac testing with recent heart catheter done by cardiology in March and known chronic occlusion on to the graft which patient has been on medical management. Consult cardiology. Continue aspirin 81 mg daily, Lipitor 80 mg at bedtime, Lopressor 100 mg twice daily. 8. Cardiomyopathy: Most likely ischemic with low ejection fraction at 35 percentile. Continue Lopressor 100 mg twice daily, lisinopril 40 mg daily, hydralazine 75 mg 3 times daily, Lasix 40 mg IV daily. 9. COPD with FEV1 at 35 percentile patient has been seen pulmonary regular basis continue O2 continue updraft treatment versus MDI and steroid inhaler at this point. 10. Hypertension. Continue hydralazine 75 mg 3 times a day, lisinopril 40 mg a day and metoprolol 100 mg twice a day resume medication when the blood pressure is better. 11. Recent history of A. fib with RVR: Post cardioversion done by cardiology patient was placed some but beta aracely did not require any other antiar rhythmic but was started on anticoagulation and patient apparently is not taking it for the last 2-3 days because he felt quite bit sick. 12. Paroxysmal atrial fibrillation, currently sinus rhythm. Patient will be resumed on eliquis 5 mg twice daily 13. Diabetes mellitus type 2, insulin requiring. Patient states that he normally takes NovoLog 8-10 units before meals and does not do insulin scale. Patient's Levemir will be resumed at home dose and continue NovoLog scale for now. Reassess in the morning. 13. Obstructive sleep apnea. Continue CPAP. 14. DVT prophylaxis. Patient will be resumed on eliquis 5 mg twice daily. 15. GI prophylaxis: Patient will be on pantoprazole 40 mg daily. 16. HSV suspected. Patient started on Valtrex 1000 mg twice daily for 7 days. CODE STATUS: Full code. Discharge plan: home Impression and plan of care have been directed as dictated by the signing physician. Dipika Mendez nurse practitioner acting as scribe for signing physician.primary
--- NOTE | 2019-05-24 16:16 | PN ---
PROGRESS NOTE DATE OF SERVICE: 05/24/2019 REASON FOR FOLLOWUP: 1. Pneumonia. 2. Genital lesion. INTERVAL HISTORY: The patient is currently afebrile. The patient has been breathing comfortably. Still complaining of right-sided chest pain, especially when taking deep breaths and coughing, but no sputum. No nausea, vomiting or abdominal pain. Lesion on his penis is slowly decreasing in intensity. No new lesion. PHYSICAL EXAMINATION: Blood pressure 127/72 with a pulse of 66, temperature 97.8. He is 97% on room air. General description is a middle-aged male up in the bed in no distress. RESPIRATORY SYSTEM: Unlabored breathing with decreased breath sounds at the base. No wheeze. HEART: S1, S2. Regular rate and rhythm. ABDOMEN: Soft. No tenderness. LABS: Hemoglobin is 12, white count 11.7, BUN of 37, creatinine 1.19. DIAGNOSTIC IMPRESSION AND PLAN: 1. Patient with right-sided pneumonia with effusion in this patient who has been unable to provide any sputum. He has been afebrile. Currently on Rocephin and Zithromax; to continue. 2. Patient with penile lesion with concern for possible herpetic, though initial herpes testing has been negative. Patient responded to Valtrex; to continue. Will be doing repeat serological testing in a few weeks. His questions and concerns were answered. MMODL / IJN: [id number] /
[2019-05-24 16:44] LABS: Glucose,Whole Blood 230 mg/dL (75-99)
[2019-05-24] MEDS: methylPREDNISolone SOD SUCCI 40 MG/ML 1 ML VIAL IV SCH ×2 (16:59→23:28)
[2019-05-24] MEDS: AZITHROMYCIN 500 MG TAB PO SCH (16:59)
[2019-05-24] MEDS: INSULIN ASPART (NovoLOG) 100 UNIT/ML VIAL SQ SCH ×2 (17:32→22:41)
[2019-05-24 20:49] LABS: Glucose,Whole Blood 280 mg/dL (75-99)
[2019-05-24 22:24] LABS: Glucose,Whole Blood 368 mg/dL (75-99)
[2019-05-24] MEDS: ATORVASTATIN 80 MG TAB PO SCH (22:24)
[2019-05-24] MEDS: INSULIN DETEMIR (LEVEMIR) 100 UNIT/ML SYR SQ SCH (22:28)
[2019-05-24] MEDS: ZOLPIDEM 5 MG TAB PO SCH (22:28)
[2019-05-25] MEDS: NITROGLYCERIN OINT 1 INCH/GM PACKET TOPICAL SCH ×2 (00:27→08:52)
[2019-05-25] MEDS: MORPHINE SULFATE 2 MG/ML SYRINGE IVP PRN ×4 (02:24→23:41)
[2019-05-25 07:39] LABS: Glucose,Whole Blood 167 mg/dL (75-99)
[2019-05-25 07:43] LABS: Basophils % (A) 0 %; Eosinophils % (A) 0 %; HCT 38.7 % (39.0-53.0); HGB 12.8 gm/dL (13.0-17.5); Lymphocytes # (A) 0.6 k/uL (1.0-4.8); Lymphocytes % (A) 3 %; MCH 27.6 pg (25.0-35.0); MCHC 33.2 g/dL (31.0-37.0); MCV 83.3 fL (80.0-100.0); Mean Platelet Volume 9.6; Monocytes # (A) 0.8 k/uL (0-1.0); Monocytes % (A) 4 %; Neutrophils # (A) 17.3 k/uL (1.3-7.7); Neutrophils % (A) 92 %; Platelet Count 228 k/uL (150-450); RBC 4.64 m/uL (4.30-5.90); WBC 18.8 k/uL (3.8-10.6)
[2019-05-25 07:58] LABS: Albumin 3.1 g/dL (3.5-5.0); Potassium 4.3 mmol/L (3.5-5.1); Total Bilirubin 0.4 mg/dL (0.2-1.3); Total Protein 5.9 g/dL (6.3-8.2)
[2019-05-25] MEDS: IPRATROPIUM-ALBUTEROL 3 ML NEB INHALATION SCH ×4 (07:58→21:02)
[2019-05-25] MEDS: METOPROLOL TARTRATE 50 MG TAB PO SCH ×2 (08:50→20:32)
[2019-05-25] MEDS: INSULIN ASPART (NovoLOG) 100 UNIT/ML VIAL SQ SCH ×7 (08:50→20:52)
[2019-05-25] MEDS: GABAPENTIN 100 MG CAP PO SCH ×2 (08:50→20:54)
[2019-05-25] MEDS: MULTIVITAMINS, THERA 1 EACH TAB PO SCH (08:51)
[2019-05-25] MEDS: LISINOPRIL 20 MG TAB PO SCH (08:51)
[2019-05-25] MEDS: FUROSEMIDE 40 MG TAB PO SCH ×2 (08:51→17:04)
[2019-05-25] MEDS: hydrALAZINE HCL 25 MG TAB PO SCH ×3 (08:51→20:33)
[2019-05-25] MEDS: POTASSIUM CHLORIDE ER 10 MEQ TAB.ER.PRT PO SCH (08:51)
[2019-05-25] MEDS: methylPREDNISolone SOD SUCCI 40 MG/ML 1 ML VIAL IV SCH ×2 (08:53→20:34)
[2019-05-25] MEDS: APIXABAN 5 MG TAB PO SCH ×2 (08:53→20:33)
[2019-05-25] MEDS: metFORMIN 500 MG TAB PO SCH ×2 (08:54→17:04)
[2019-05-25] MEDS: PANTOPRAZOLE 40 MG TABLET PO SCH (08:54)
[2019-05-25] MEDS: ASPIRIN 81 MG PO SCH (08:57)
[2019-05-25] MEDS: cloNIDine HCL 0.2 MG TAB PO SCH ×3 (08:57→20:33)
[2019-05-25] MEDS: valACYclovir HCL 1,000 MG TABLET PO SCH ×2 (10:31→20:55)
[2019-05-25] MEDS: ISOSORBIDE MONONITRATE ER 30 MG TAB.ER.24H PO SCH (10:58)
[2019-05-25 12:24] LABS: Glucose,Whole Blood 131 mg/dL (75-99)
--- NOTE | 2019-05-25 13:21 | P.PN ---
Subjective Progress Note Date: 05/25/19 54-year-old male one of Dr. Montesinos's patient with past medical history of CAD, recent history of A. fib with RVR post cardioversion after transesophageal echocardiogram done in early April, history of severe COPD with FEV1 57 percentile seen pulmonary regular basis. Also patient is known to have history of CAD post CABG 5 vessel back in 2006 with angioplasty time to done since. Patient had recent history of non-ST AR with heart catheter done by Dr. Ga in March found to have severe triple vessel coronary artery disease with Patent ramus intermedius stent patent saphenous vein graft to the obtuse marginal branch patent MAE to the LAD but chronically occluded saphenous vein graft to the right coronary artery recommendation for medical management at this time and ejection fraction via echocardiogram was found to be 40-45 percentile only with severe concentric left ventricular hypertrophy with mild to moderate mitral regurgitation and mild tricuspid regurgitation. Patient was hospitalized in 04/24/2019 and end up going for transesophageal echocardiogram and cardioversion was done patient was started on anticoagulation with Eliquis along with beta aracely kept his pulse rate in the 60s and 70s. Patient apparently has not been taking his medication for the last 2-3 days he developed to have worsening shortness of breath and sharp left sided chest pain on and off worsening with exertion was associated with cough low-grade temperature patient's symptoms was a lot worse at nighttime he call his PCP and was instructed to go to the emergency department after the urgent care where influenza test was done and came back negative patient presented to the emergency department continue to be very symptomatic low-grade temperature with the blood pressure slightly bit low white blood cell was 27,000 left shift his troponin was quite but elevated CRP was 172 d-dimer was quite elevated as well and patient was in acute kidney failure. His creatinine is up to 2.1 from 1.0 a nd last admission chest x-ray showed cuffing around the bronchial area consistent with severe bronchitis with no clear infiltrate at the time. With his elevated d-dimer and VQ scan was performed and showed no pulmonary embolism at the time. Patient lactic acid was 4.7 was started on IV antibiotic and hydration no source of infection at this point was found his COVID-19 test was performed and patient was kept in isolation and admitted to the hospital for the above problem. 05/17: Patient has been afebrile, heart rate 88, blood pressure 155/95 before medications, pulse ox 97% on 3 L nasal cannula. ProBNP 5130. Repeat troponins 1.050, 0.869. Sodium 135, BUN 46, creatinine 1.51. Total bilirubin 1.2, AST 71, ALT 53, alkaline phosphatase 117. Lactic acid down to 1.6. WBC 16.5. COVID-19 results pending. Stool for C. diff is on collected patient is currently on heparin drip until seen by cardiology. Blood culture is status received. Consults are in place for pulmonary medicine, cardiology and infectious disease. telemetry monitor is sinus rhythm. 05/18: Covid 19 testing remains pending. Cardiology is following and it made no changes to medications. We will resume patient back on eliquis. Patient is complaining of chest pain with deep inspiration and continues to have some mild shortness of breath. Pulmonary has added and prednisone and albuterol inhaler. He is currently on antibiotics the form of azithromycin, ceftriaxone and vancomycin and also followed by Dr. Mackenzie. Patient is currently afebrile, heart rate 72, blood pressure 145/90, pulse ox 97% on room air. Repeat lab work reveals Sherry BC 12, hemoglobin 12.5, platelet count 99. Sodium 139, potassium 3.8, chloride 113, CO2 18, BUN 35 and creatinine 1.13. Blood sugars running anywhere between 118-223. Total bilirubin 0.8, AST 100, ALT 87, alkaline phosphatase 136. 05/19: Patient is laying down in bed in no apparent distress he continues to have a bit of her chest pain associated with the some shortness breath, he had a minimal cough, he did require some morphine sulfate yesterday for pleuritic ches t pain, he had a good bowel movement today he continues to be bloated, he denies any nausea or vomiting at this time he has no fever or chills he seems to be doing better overall. Covid 19 still pending. 05/20: Patient is sitting up in bed he appears to be quite edematous in his upper extremities and lower extremities as well as his face we will Coumadin dose of Lasix 40 mg IV push 1 now and repeat in daily basis discontinue oral Lasix continue with potassium supplement, he continues to have some left-sided chest pain on and off he continued to have some shortness of breath and some dry cough he has no fever or chills at this point in time. His Covid 19 is still pending. 05/21: Covid 19 is reported negative. Patient continues to have shortness of breath and Dr. Yates has ordered a CAT scan of the chest. Patient is also been complaining of continued rash on his penis that appears to be HSV. Patient will be started on Valtrex. Patient is afebrile, heart rate 63, blood pressure 188/105 with repeated 144/80, pulse ox 93% on room air. Sodium 138, potassium 4.0, chloride 108, CO2 24, BUN 30 creatinine 1.26. Blood sugars running between 96 and 219. CAT scan of the chest reveals moderate size right pleural effusion and trace left pleural effusion. Focal groundglass at the right base probably representing atelectasis. Less likely some type of pneumonitis. Given mild interstitial thickening, generalized anasarca change in possible pulmonary artery hypertension poorly for mild CHF. COPD with minimal emphysematous cysts. Mild upper abdominal ascites and nonspecific gallbladder wall thickening. Findings may begin seen in the setting of fluid overload. Patient is currently on IV Lasix 40 mg daily 05/22: Patient has been seen by Dr. Yates and increase steroids to Solu-Medrol 60 every 6 hours with plan to continue nebulizer treatments. Patient is currently on oral Lasix 40 mg twice daily. Patient's continues to have some shortness of breath, chest pain. Patient also states rash has not improved. He received a first dose of Valtrex yesterday. Patient has been afebrile, heart rate 65, blood pressure 122/65, pulse ox 98% on room air. Repeat blood work reveals WBC 11.7, hemoglobin 12.0. Sodium 135, BUN 37 creatinine 1.19. Blood sugars running between 177 and 323. 05/23: Overnight, patient blood sugar went extremely high in the 400s and he was started on insulin drip. He continues to complain of right-sided chest pain. Patient is been afebrile, heart rate 72, blood pressure 130/70, pulse ox 92% on room air. Varicella-zoster IgG antibody is positive. HSV 1 testing is equivocal with recommendations for repeat testing in 4-6 weeks. HSV-[address] Mackenzie was increased Valtrex 1000 mg twice daily. The patient remains on Solu-Medrol 60 mg IV every 6 hours with no plan to change this today. Patient is also on Zithromax and Rocephin. Dr. Yates has cleared the patient for discharge home. We and is to monitor him overnight and plan for discharge tomorrow. 05/24: Patient has been transferred to the [facility] floor. He was afebrile, heart rate 74, blood pressure 139/78, pulse ox 96% on room air. Repeat blood work reveals WBC 18.8, hemoglobin 12.8, platelet count 228. Sodium 135, potassium 4.3, chloride 103, CO2 21, BUN 43, creatinine 1.12. Blood sugars this morning are improved at 167. Patient was still elevated yesterday in the 200s and up to 368 and 1 report. Liver function tests within normal limits. She continues to complain of cough but not bringing up any sputum. He complains of shortness of breath with activity. He continues to have some mild fluid in the abdomen and lower extremity edema. CHARLIE hose ordered. Patient states he is having 2-3 bowel movements per day. Imdur from home will be resumed. Telemetry discontinued. Solu-Medrol will be decreased frequency to 40 mg every 12 hours. Objective - Vital Signs Vital signs: Vital Signs Temp 97.4 F L 05/25/19 04:23 Pulse 72 05/25/19 08:10 Resp 20 05/25/19 04:23 BP 139/78 05/25/19 04:23 Pulse Ox 96 05/25/19 04:23 Intake & Output 05/24/19 05/25/19 05/25/19 18:59 06:59 18:59 Intake Total 1215.284 Balance 1215.284 Intake: Intake, IV Titration 15.284 Amount Insulin Regular 100 unit 15.284 In Sodium Chloride 0.9% 100 ml @ Titrate IV .Q0M [facility] Rx#:[id number] Oral 1200 Other: Voiding Method Toilet # Voids 2 2 - Exam Review of Systems CONSTITUTIONAL: Well-developed no acute respiratory distress. Denies fever, denies chills. EYES: No icterus sclerae, no conjunctivitis. EARS, NOSE, MOUTH, THROAT, and FACE: No sore throat, lymphadenopathy, carotid bruits or deformity. RESPIRATORY: Positive chest pain with inspiration, reports shortness of breath, cough wheezes, shortness breath with activity. CARDIOVASCULAR: Positive PND orthopnea palpitation GASTROINTESTINAL: Denies abdominal pain denies nausea with no vomiting positive decrease of appetite with generalized weakness. GENITOURINARY: Negative for Hematuria or UTI, no kidney stones. INTEGUMENT/BREAST: Negative for any muscular injury with mild osteoarthritis. HEMATOLOGIC/LYMPHATIC: Negative for bleed or purpura. MUSCULOSKELTAL: Negative for Myalgia or arthralgia. NEURLOGICAL: No LOC, Sz or syncope, blurred vision dizziness or abnormality. BEHAVIORAL/PSYCH: Negative. ENDOCRINE: Abnormal blood sugar. Physical examination General Appearance: Alert, cooperative, no distress, appears stated age. Neck HEENT: Supple, no lymphadenopathy, no thyroid enlargement, no carotid bruits. Lungs: Decreased breath some bilaterally. Chest Wall: Decrease expansion with deep inspiration no tenderness and no deformity was found on exam, no costochondral pain or discomfort. Heart: Irregular rhythm and rate , S1, S2 positive history positive JVD with systolic murmur. Back: Symmetric, no curvature, ROM normal, no CVA tenderness. Abdomen: Soft, non-tender, bowel sounds active all four quadrants, no masses, no organomegaly. Extremities: Trace bilateral edema decreased positive dorsalis pedis bilaterally. Pulses: 2+ and symmetric. Skin: Skin color, texture, tugor normal, rash on penis, improving. Neurologic: Alert oriented x3 cranial nerves II through XII intact, no motor deficit, no abnormal balance or gait. - Labs CBC & Chem 7: 05/25/19 06:50 05/25/19 06:50 Labs: Abnormal Lab Results - Last 24 Hours (Table) 05/24/19 05/24/19 05/24/19 Range/Units 11:20 13:30 16:42 WBC (3.8-10.6) k/uL Hgb (13.0-17.5) gm/dL Hct (39.0-53.0) % Neutrophils # (1.3-7.7) k/uL Lymphocytes # (1.0-4.8) k/uL Sodium (137-145) mmol/L Carbon Dioxide (22-30) mmol/L BUN (9-20) mg/dL Glucose (74-99) mg/dL POC Glucose (mg/dL) 230 H 187 H 230 H (75-99) mg/dL Calcium (8.4-10.2) mg/dL Total Protein (6.3-8.2) g/dL Albumin (3.5-5.0) g/dL 05/24/19 05/24/19 05/25/19 Range/Units 20:47 22:23 06:50 WBC 18.8 H (3.8-10.6) k/uL Hgb 12.8 L (13.0-17.5) gm/dL Hct 38.7 L (39.0-53.0) % Neutrophils # 17.3 H (1.3-7.7) k/uL Lymphocytes # 0.6 L (1.0-4.8) k/uL Sodium (137-145) mmol/L Carbon Dioxide (22-30) mmol/L BUN (9-20) mg/dL Glucose (74-99) mg/dL POC Glucose (mg/dL) 280 H 368 H (75-99) mg/dL Calcium (8.4-10.2) mg/dL Total Protein (6.3-8.2) g/dL Albumin (3.5-5.0) g/dL 05/25/19 05/25/19 Range/Units 06:50 07:19 WBC (3.8-10.6) k/uL Hgb (13.0-17.5) gm/dL Hct (39.0-53.0) % Neutrophils # (1.3-7.7) k/uL Lymphocytes # (1.0-4.8) k/uL Sodium 135 L (137-145) mmol/L Carbon Dioxide 21 L (22-30) mmol/L BUN 43 H (9-20) mg/dL Glucose 172 H (74-99) mg/dL POC Glucose (mg/dL) 167 H (75-99) mg/dL Calcium 8.0 L (8.4-10.2) mg/dL Total Protein 5.9 L (6.3-8.2) g/dL Albumin 3.1 L (3.5-5.0) g/dL Assessment and Plan Plan: 1. Sepsis secondary to right-sided pneumonia, probable gram-negative pneumonia. Rocephin to be transitioned to Ceftin at discharge. COVID-[address] with infectious disease and pulmonary medicine. 2. Severe dyspnea and shortness of breath without acute respiratory failure secondary to combination of acute on chronic systolic heart failure, A. fib and COPD. 3. COPD with mild exacerbation. Consult with pulmonary medicine. Patient started on oral prednisone transition IV steroids, DuoNeb treatments 4 times daily. 4. Ruled out Covid 19. 5. Acute acute kidney failure. Avoid nephrotoxic agents, recheck BMP. 6. Elevated d-dimer with negative VQ scan. 7. Elevated troponin, acute coronary syndrome ruled out by cardiology. Recent cardioversion and cardiac testing with recent heart catheter done by cardiology in March and known chronic occlusion on to the graft which patient has been on medical management. Consult cardiology. Continue aspirin 81 mg daily, Lipitor 80 mg at bedtime, Lopressor 100 mg twice daily. 8. Cardiomyopathy: Most likely ischemic with low ejection fraction at 35 percentile. Continue Lopressor 100 mg twice daily, lisinopril 40 mg daily, hydralazine 75 mg 3 times daily, Lasix 40 mg IV daily. 9. COPD with FEV1 at 35 percentile patient has been seen pulmonary regular basis continue O2 continue updraft treatment versus MDI and steroid inhaler at this point. 10. Hypertension. Continue hydralazine 75 mg 3 times a day, lisinopril 40 mg a day and metoprolol 100 mg twice a day resume medication when the blood pressure is better. 11. Recent history of A. fib with RVR: Post cardioversion done by cardiology patient was placed some but beta aracely did not require any other antiarrhythmic but was started on anticoagulation and patient apparently is not taking it for the last 2-3 days because he felt quite bit sick. 12. Paroxysmal atrial fibrillation, currently sinus rhythm. Patient will be resumed on eliquis 5 mg twice daily 13. Diabetes mellitus type 2, insulin requiring. Patient states that he normally takes NovoLog 8-10 units before meals and does not do insulin scale. Patient's Levemir will be resumed at home dose and continue NovoLog scale for now. Reassess in the morning. 13. Obstructive sleep apnea. Continue CPAP. 14. DVT prophylaxis. Patient will be resumed on eliquis 5 mg twice daily. 15. GI prophylaxis: Patient will be on pantoprazole 40 mg daily. 16. HSV suspected. Continue Valtrex 1000 mg twice daily for 7 days. CODE STATUS: Full code. Discharge plan: home Impression and plan of care have been directed as dictated by the signing physician. Dipika Mendez nurse practitioner acting as scribe for signing physician.primary
[2019-05-25] MEDS: AZITHROMYCIN 500 MG TAB PO SCH (17:04)
[2019-05-25 17:36] LABS: Glucose,Whole Blood 98 mg/dL (75-99)
[2019-05-25] MEDS: ZOLPIDEM 5 MG TAB PO SCH (20:32)
[2019-05-25] MEDS: ATORVASTATIN 80 MG TAB PO SCH (20:33)
[2019-05-25] MEDS: INSULIN DETEMIR (LEVEMIR) 100 UNIT/ML SYR SQ SCH (20:54)
[2019-05-25 20:57] LABS: Glucose,Whole Blood 84 mg/dL (75-99)
--- NOTE | 2019-05-26 05:05 | PN ---
PROGRESS NOTE DATE OF SERVICE: 05/25/2019 REASON FOR FOLLOWUP: 1. Pneumonia. 2. Genital lesion. INTERVAL HISTORY: The patient is currently afebrile, has been breathing more comfortably. Denies having any chest pain. Did have a cough, not bringing up any sputum. No nausea, no vomiting. No abdominal pain. No diarrhea. Overall genital lesion has decreased. PHYSICAL EXAMINATION: Blood pressure is 124/74 with a pulse of 65, temperature 97.9. He is 98% on room air. General description is a middle-aged male lying in bed in no distress. RESPIRATORY SYSTEM: Unlabored breathing, decreased breath sounds in the bases. No wheeze. HEART: S1, S2. Regular rate and rhythm. ABDOMEN: Soft, no tenderness. LABS: No new labs have been obtained today. DIAGNOSTIC IMPRESSION AND PLAN: 1. Patient with right-sided infiltrate with concern for possible effusion. The patient is currently covered with Rocephin to continue. 2. Penile lesion. Currently covered with Valtrex to continue with further testing in outpatient setting. MMODL / IJN: [id number] /
[2019-05-26] MEDS: MORPHINE SULFATE 2 MG/ML SYRINGE IVP PRN ×2 (06:21→17:23)
[2019-05-26 07:05] LABS: Glucose,Whole Blood 66 mg/dL (75-99)
[2019-05-26] MEDS: INSULIN ASPART (NovoLOG) 100 UNIT/ML VIAL SQ SCH ×5 (07:14→21:44)
[2019-05-26 07:19] LABS: Glucose,Whole Blood 69 mg/dL (75-99)
[2019-05-26] MEDS: METOPROLOL TARTRATE 50 MG TAB PO SCH ×2 (07:34→21:45)
[2019-05-26] MEDS: valACYclovir HCL 1,000 MG TABLET PO SCH ×2 (07:34→21:43)
[2019-05-26] MEDS: hydrALAZINE HCL 25 MG TAB PO SCH ×3 (07:35→21:44)
[2019-05-26] MEDS: ASPIRIN 81 MG PO SCH (07:35)
[2019-05-26] MEDS: ISOSORBIDE MONONITRATE ER 30 MG TAB.ER.24H PO SCH (07:35)
[2019-05-26] MEDS: MULTIVITAMINS, THERA 1 EACH TAB PO SCH (07:35)
[2019-05-26] MEDS: POTASSIUM CHLORIDE ER 10 MEQ TAB.ER.PRT PO SCH (07:35)
[2019-05-26] MEDS: LISINOPRIL 20 MG TAB PO SCH (07:35)
[2019-05-26 07:36] LABS: Glucose,Whole Blood 67 mg/dL (75-99)
[2019-05-26] MEDS: methylPREDNISolone SOD SUCCI 40 MG/ML 1 ML VIAL IV SCH (07:36)
[2019-05-26] MEDS: cloNIDine HCL 0.2 MG TAB PO SCH ×3 (07:36→21:45)
[2019-05-26] MEDS: PANTOPRAZOLE 40 MG TABLET PO SCH (07:36)
[2019-05-26] MEDS: metFORMIN 500 MG TAB PO SCH ×2 (07:36→17:20)
[2019-05-26] MEDS: GABAPENTIN 100 MG CAP PO SCH ×2 (07:36→21:45)
[2019-05-26] MEDS: APIXABAN 5 MG TAB PO SCH ×2 (07:36→21:45)
[2019-05-26] MEDS: FUROSEMIDE 40 MG TAB PO SCH ×2 (07:36→15:58)
[2019-05-26 08:00] LABS: Glucose,Whole Blood 70 mg/dL (75-99)
[2019-05-26] MEDS: IPRATROPIUM-ALBUTEROL 3 ML NEB INHALATION SCH ×4 (08:11→19:51)
[2019-05-26] MEDS: ONDANSETRON 4 MG/2 ML VIAL IVP PRN (09:02)
[2019-05-26] MEDS ORDERED: LOPERAMIDE 2 MG CAP PO STA (09:27)
--- NOTE | 2019-05-26 11:00 | P.PN ---
Subjective Progress Note Date: 05/26/19 54-year-old male one of Dr. Montesinos's patient with past medical history of CAD, recent history of A. fib with RVR post cardioversion after transesophageal echocardiogram done in early April, history of severe COPD with FEV1 57 percentile seen pulmonary regular basis. Also patient is known to have history of CAD post CABG 5 vessel back in 2006 with angioplasty time to done since. Patient had recent history of non-ST OK with heart catheter done by Dr. Ga in March found to have severe triple vessel coronary artery disease with Patent ramus intermedius stent patent saphenous vein graft to the obtuse marginal branch patent MAE to the LAD but chronically occluded saphenous vein graft to the right coronary artery recommendation for medical management at this time and ejection fraction via echocardiogram was found to be 40-45 percentile only with severe concentric left ventricular hypertrophy with mild to moderate mitral regurgitation and mild tricuspid regurgitation. Patient was hospitalized in 04/24/2019 and end up going for transesophageal echocardiogram and cardioversion was done patient was started on anticoagulation with Eliquis along with beta aracely kept his pulse rate in the 60s and 70s. Patient apparently has not been taking his medication for the last 2-3 days he developed to have worsening shortness of breath and sharp left sided chest pain on and off worsening with exertion was associated with cough low-grade temperature patient's symptoms was a lot worse at nighttime he call his PCP and was instructed to go to the emergency department after the urgent care where influenza test was done and came back negative patient presented to the emergency department continue to be very symptomatic low-grade temperature with the blood pressure slightly bit low white blood cell was 27,000 left shift his troponin was quite but elevated CRP was 172 d-dimer was quite elevated as well and patient was in acute kidney failure. His creatinine is up to 2.1 from 1.0 a nd last admission chest x-ray showed cuffing around the bronchial area consistent with severe bronchitis with no clear infiltrate at the time. With his elevated d-dimer and VQ scan was performed and showed no pulmonary embolism at the time. Patient lactic acid was 4.7 was started on IV antibiotic and hydration no source of infection at this point was found his COVID-19 test was performed and patient was kept in isolation and admitted to the hospital for the above problem. 05/17: Patient has been afebrile, heart rate 88, blood pressure 155/95 before medications, pulse ox 97% on 3 L nasal cannula. ProBNP 5130. Repeat troponins 1.050, 0.869. Sodium 135, BUN 46, creatinine 1.51. Total bilirubin 1.2, AST 71, ALT 53, alkaline phosphatase 117. Lactic acid down to 1.6. WBC 16.5. COVID-19 results pending. Stool for C. diff is on collected patient is currently on heparin drip until seen by cardiology. Blood culture is status received. Consults are in place for pulmonary medicine, cardiology and infectious disease. net developer contract is sinus rhythm. 05/18: Covid 19 testing remains pending. Cardiology is following and it made no changes to medications. We will resume patient back on eliquis. Patient is complaining of chest pain with deep inspiration and continues to have some mild shortness of breath. Pulmonary has added and prednisone and albuterol inhaler. He is currently on antibiotics the form of azithromycin, ceftriaxone and vancomycin and also followed by Dr. Mackenzie. Patient is currently afebrile, heart rate 72, blood pressure 145/90, pulse ox 97% on room air. Repeat lab work reveals Sherry BC 12, hemoglobin 12.5, platelet count 99. Sodium 139, potassium 3.8, chloride 113, CO2 18, BUN 35 and creatinine 1.13. Blood sugars running anywhere between 118-223. Total bilirubin 0.8, AST 100, ALT 87, alkaline phosphatase 136. 05/19: Patient is laying down in bed in no apparent distress he continues to have a bit of her chest pain associated with the some shortness breath, he had a minimal cough, he did require some morphine sulfate yesterday for pleuritic ches t pain, he had a good bowel movement today he continues to be bloated, he denies any nausea or vomiting at this time he has no fever or chills he seems to be doing better overall. Covid 19 still pending. 05/20: Patient is sitting up in bed he appears to be quite edematous in his upper extremities and lower extremities as well as his face we will Coumadin dose of Lasix 40 mg IV push 1 now and repeat in daily basis discontinue oral Lasix continue with potassium supplement, he continues to have some left-sided chest pain on and off he continued to have some shortness of breath and some dry cough he has no fever or chills at this point in time. His Covid 19 is still pending. 05/21: Covid 19 is reported negative. Patient continues to have shortness of breath and Dr. Yates has ordered a CAT scan of the chest. Patient is also been complaining of continued rash on his penis that appears to be HSV. Patient will be started on Valtrex. Patient is afebrile, heart rate 63, blood pressure 188/105 with repeated 144/80, pulse ox 93% on room air. Sodium 138, potassium 4.0, chloride 108, CO2 24, BUN 30 creatinine 1.26. Blood sugars running between 96 and 219. CAT scan of the chest reveals moderate size right pleural effusion and trace left pleural effusion. Focal groundglass at the right base probably representing atelectasis. Less likely some type of pneumonitis. Given mild interstitial thickening, generalized anasarca change in possible pulmonary artery hypertension poorly for mild CHF. COPD with minimal emphysematous cysts. Mild upper abdominal ascites and nonspecific gallbladder wall thickening. Findings may begin seen in the setting of fluid overload. Patient is currently on IV Lasix 40 mg daily 05/22: Patient has been seen by Dr. Yates and increase steroids to Solu-Medrol 60 every 6 hours with plan to continue nebulizer treatments. Patient is currently on oral Lasix 40 mg twice daily. Patient's continues to have some shortness of breath, chest pain. Patient also states rash has not improved. He received a first dose of Valtrex yesterday. Patient has been afebrile, heart rate 65, blood pressure 122/65, pulse ox 98% on room air. Repeat blood work reveals WBC 11.7, hemoglobin 12.0. Sodium 135, BUN 37 creatinine 1.19. Blood sugars running between 177 and 323. 05/23: Overnight, patient blood sugar went extremely high in the 400s and he was started on insulin drip. He continues to complain of right-sided chest pain. Patient is been afebrile, heart rate 72, blood pressure 130/70, pulse ox 92% on room air. Varicella-zoster IgG antibody is positive. HSV 1 testing is equivocal with recommendations for repeat testing in 4-6 weeks. HSV-[address] Mackenzie was increased Valtrex 1000 mg twice daily. The patient remains on Solu-Medrol 60 mg IV every 6 hours with no plan to change this today. Patient is also on Zithromax and Rocephin. Dr. Yates has cleared the patient for discharge home. We and is to monitor him overnight and plan for discharge tomorrow. 05/24: Patient has been transferred to the [facility] floor. He was afebrile, heart rate 74, blood pressure 139/78, pulse ox 96% on room air. Repeat blood work reveals WBC 18.8, hemoglobin 12.8, platelet count 228. Sodium 135, potassium 4.3, chloride 103, CO2 21, BUN 43, creatinine 1.12. Blood sugars this morning are improved at 167. Patient was still elevated yesterday in the 200s and up to 368 and 1 report. Liver function tests within normal limits. She continues to complain of cough but not bringing up any sputum. He complains of shortness of breath with activity. He continues to have some mild fluid in the abdomen and lower extremity edema. CHARLIE hose ordered. Patient states he is having 2-3 bowel movements per day. Imdur from home will be resumed. Telemetry discontinued. Solu-Medrol will be decreased frequency to 40 mg every 12 hours. 05/25: Patient is afebrile, heart rate 74, blood pressure 137/78, pulse ox 97% on room air. Patient complains of having diarrhea 10 episodes during the night. Stool was sent for C. difficile toxin which came back negative. He is complaining of some mild nausea. We'll plan to discontinue all antibiotics: Azithromycin and Rocephin at this time. Imodium started. Patient has received a fall 9 days of antibiotics. He is currently on Solu-Medrol 40 mg every 12 hours and Lasix 40 mg oral twice daily. Solu-Medrol will be discontinued tonight and patient start oral prednisone in the morning. Blood sugars this morning in the 60s and we'll decrease Levemir to 30 units which is her home dose and discontinue scheduled NovoLog 10 units with meals. He is also on scale and continued on metformin. Plan to monitor overnight and discharged home tomorrow. Objective - Vital Signs Vital signs: Vital Signs Temp 97.7 F 05/26/19 05:41 Pulse 78 05/26/19 08:21 Resp 18 05/26/19 05:41 BP 137/78 04/03/20 05:41 Pulse Ox 97 05/26/19 05:41 Intake & Output 05/25/19 05/26/19 05/26/19 18:59 06:59 18:59 Intake Total 400 200 Balance 400 200 Intake: Oral 400 200 Other: Voiding Method Toilet # Voids 2 3 # Bowel Movements 4 - Exam Review of Systems CONSTITUTIONAL: Well-developed no acute respiratory distress. Denies fever, denies chills. EYES: No icterus sclerae, no conjunctivitis. EARS, NOSE, MOUTH, THROAT, and FACE: No sore throat, lymphadenopathy, carotid bruits or deformity. RESPIRATORY: Positive chest pain with inspiration, reports shortness of breath, cough wheezes, shortness breath with activity. CARDIOVASCULAR: Positive PND orthopnea palpitation GASTROINTESTINAL: Denies abdominal pain reports nausea with no vomiting positive decrease of appetite reports diarrhea GENITOURINARY: Negative for Hematuria or UTI, no kidney stones. INTEGUMENT/BREAST: Negative for any muscular injury with mild osteoarthritis. HEMATOLOGIC/LYMPHATIC: Negative for bleed or purpura. MUSCULOSKELTAL: Negative for Myalgia or arthralgia. NEURLOGICAL: No LOC, Sz or syncope, blurred vision dizziness or abnormality. BEHAVIORAL/PSYCH: Negative. ENDOCRINE: Abnormal blood sugar. Physical examination General Appearance: Alert, cooperative, no distress, appears stated age. Neck HEENT: Supple, no lymphadenopathy, no thyroid enlargement, no carotid bruits. Lungs: Decreased breath some bilaterally. Chest Wall: Decrease expansion with deep inspiration no tenderness and no deformity was found on exam, no costochondral pain or discomfort. Heart: Irregular rhythm and rate , S1, S2 positive history positive JVD with systolic murmur. Back: Symmetric, no curvature, ROM normal, no CVA tenderness. Abdomen: Soft, non-tender, bowel sounds active all four quadrants, no masses, no organomegaly. No epigastric tenderness. Extremities: Trace bilateral edema decreased positive dorsalis pedis bila terally. Pulses: 2+ and symmetric. Skin: Skin color, texture, tugor normal, rash on penis, improving. Neurologic: Alert oriented x3 cranial nerves II through XII intact, no motor deficit, no abnormal balance or gait. - Labs CBC & Chem 7: 05/25/19 06:50 05/25/19 06:50 Labs: Abnormal Lab Results - Last 24 Hours (Table) 05/25/19 05/26/1920 Range/Units 12:22 07:01 07:17 POC Glucose (mg/dL) 131 H 66 L 69 L (75-99) mg/dL 05/26/19 05/26/19 Range/Units 07:35 07:58 POC Glucose (mg/dL) 67 L 70 L (75-99) mg/dL Assessment and Plan Plan: 1. Sepsis secondary to right-sided pneumonia, probable gram-negative pneumonia. Antibiotics discontinued. COVID-[address] with infectious disease and pulmonary medicine. 2. Severe dyspnea and shortness of breath without acute respiratory failure secondary to combination of acute on chronic systolic heart failure, A. fib and COPD. 3. COPD with mild exacerbation. Consult with pulmonary medicine. IV Solu- Medrol will be discontinued tonight and start prednisone in the morning, DuoNeb treatments 4 times daily. 4. Ruled out Covid 19. 5. Acute acute kidney failure. Avoid nephrotoxic agents, recheck BMP. 6. Elevated d-dimer with negative VQ scan. 7. Elevated troponin, acute coronary syndrome ruled out by cardiology. Recent cardioversion and cardiac testing with recent heart catheter done by cardiology in March and known chronic occlusion on to the graft which patient has been on medical management. Consult cardiology. Continue aspirin 81 mg daily, L ipitor 80 mg at bedtime, Lopressor 100 mg twice daily. 8. Cardiomyopathy: Most likely ischemic with low ejection fraction at 35 percentile. Continue Lopressor 100 mg twice daily, lisinopril 40 mg daily, hydralazine 75 mg 3 times daily, Lasix 40 mg IV daily. 9. COPD with FEV1 at 35 percentile patient has been seen pulmonary regular basis continue O2 continue updraft treatment versus MDI and steroid inhaler at this point. 10. Hypertension. Continue hydralazine 75 mg 3 times a day, lisinopril 40 mg a day and metoprolol 100 mg twice a day resume medication when the blood pressure is better. 11. Recent history of A. fib with RVR: Post cardioversion done by cardiology patient was placed some but beta aracely did not require any other antiarrhythmic but was started on anticoagulation and patient apparently is not taking it for the last 2-3 days because he felt quite bit sick. 12. Paroxysmal atrial fibrillation, currently sinus rhythm. Patient will be resumed on eliquis 5 mg twice daily 13. Diabetes mellitus type 2, insulin requiring. Patient states that he normally takes NovoLog 8-10 units before meals and does not do insulin scale. Patient's Levemir will be resumed at home dose and continue NovoLog scale for now. Scheduled NovoLog discontinued. Continue metformin 1000 mg twice daily. 13. Obstructive sleep apnea. Continue CPAP. 14. DVT prophylaxis. Patient will be resumed on eliquis 5 mg twice daily. 15. GI prophylaxis: Patient will be on pantoprazole 40 mg daily. 16. HSV suspected. Continue Valtrex 1000 mg twice daily for 7 days. 17. Diarrhea most likely induced by antibiotics. Azithromycin and ceftriaxone will be discontinued. Imodium started. C. difficile toxin negative.. CODE STATUS: Full code. Discharge plan: home on Wednesday Impression and plan of care have been directed as dictated by the signing physician. Dipika Mendez nurse practitioner acting as scribe for signing physician.primary
[2019-05-26 12:09] LABS: Glucose,Whole Blood 213 mg/dL (75-99)
--- NOTE | 2019-05-26 12:43 | P.PN ---
Subjective Progress Note Date: 05/26/19 Principal diagnosis: Acute pleuritis and pleurisy. On 05/22/2019 patient seen in follow-up on selective care unit, he still has the left-sided pleuritic pain, and burning type sensation in his chest. Appears to be in no acute distress at rest, room air pulse ox is 93-97%, hemodynamically patient is stable, he is afebrile, COVID 19 has been ruled out. And patient has been on a combination of antibiotics including azithromycin, vancomycin and Rocephin. Blood cultures have shown no growth, patient has not been able to produce a sputum specimen for us, his been afebrile, chest x-ray on admission showed no focal infiltrate. Today's labs have been reviewed showing sodium of 138, potassium is 4.0, CO2 is 24, BUN is 38, creatinine is 1.26, patient is receiving a daily dose of IV Lasix, he is in negative fluid balance, lung sounds are positive for wheezing bilaterally, no crackles noted, he has been getting an albuterol, however still remains dyspneic, and bronchospastic on today's evaluation. Patient remains in sinus rhythm, he does have history of paroxysmal atrial fibrillation. He does have mild to moderate LV dysfunction with ejection fraction of 40-45 range. Cardiology service is following. On 05/23/2019 patient seen in follow-up on selective care unit, still bronchospastic with slight improvement in his left-sided pleuritic chest pain. Yesterday's CAT scan was reviewed showing a small right-sided pleural effusion and trace left pleural effusion, with some focal groundglass the right base likely representing atelectasis. This showed minimal emphysematous cysts, mild CHF, mild abdominal ascites and nonspecific gallbladder wall thickening. Vital signs are stable, room air pulse ox is 99%, hemodynamically patient is stable, afebrile,: 19 has been ruled out, remains on Zithromax, she is on oral dose of Lasix 40 mg twice daily, no crackles auscultated on today's exam, yesterday we started patient on oral prednisone 40 mg daily, today we'll increase the steroids to IV steroids at 60 mg every 6 for next 24 hours, continue with nebulized bronchodilators. Blood cultures have been negative, no fever or chills. Anticipate further improvement, and possible consideration for discharge home in the next 24 hours On 05/24/2019 patient seen in follow-up on selective care unit. He still is coughing at times, nonproductive cough, complaining of some slight discomfort in the right chest wall, no discomfort in the left chest. Lung sounds are ess entially clear on today's exam, no wheezing, we'll put the patient on IV steroids for 24 hours, he is currently on 60 mg every 6 hours, he is on breathing treatments, he is on Zithromax and Rocephin, oral Lasix this CT of the chest has been reviewed showing small right pleural effusion and trace left pleural effusion, with some focal groundglass the right base, likely representing atelectasis, patient is covered with Zithromax and Rocephin, blood cultures have been negative, his been afebrile, room air pulse ox is 92%, patient states he's been up to the bathroom, tolerated activity fairly well, likely stable, from pulmonary perspective he could be considered for discharge home Patient was seen today on 05/26/19, patient seems to be doing well, hardly any cough, no shortness of breath, chest pain is significantly improved. Patient remains on steroids, bronchodilators, antibiotics, and diuretics. Feeling better, and I believe the patient is being considered for discharge planning tomorrow. Labs today showed WBC count of 18.8 hemoglobin of 12.8 electrolytes are normal renal profile is normal. CT of the chest on 05/22/19 was reviewed, patient had mostly bilateral pleural effusions, right more so than left, but they are both considered relatively small. Objective - Vital Signs Vital signs: Vital Signs Temp 97.7 F 05/26/19 05:41 Pulse 80 05/26/19 12:03 Resp 18 05/26/19 05:41 BP 137/78 05/26/19 05:41 Pulse Ox 97 05/26/19 05:41 Intake & Output 05/25/19 05/26/19 05/26/19 18:59 06:59 18:59 Intake Total 400 200 Balance 400 200 Intake: Oral 400 200 Other: Voiding Method Toilet # Voids 2 3 # Bowel Movements 4 - Exam GENERAL EXAM: Revealed 54-year-old white male, obese, in no distress, on room air. HEENT: PERRLA, EOMI, no icterus, no neck masses, no JVD, no stridor. Moist mucous membranes. CHEST: No chest wall deformity. Symmetrical expansion. LUNGS: Clear throughout no crackles or rhonchi or wheezes. CVS: Regular rate and rhythm, normal S1 and S2, no gallops, no murmurs, no rubs ABDOMEN: Soft, nontender. No hepatosplenomegaly, normal bowel sounds, no guarding or rigidity. EXTREMITIES: No clubbing, no edema, no cyanosis, 2+ pulses and upper and lower extremities. MUSCULOSKELETAL: Muscle strength and tone normal. SKIN: No rashes CENTRAL NERVOUS SYSTEM: Alert and oriented 3 never focal deficits. PSYCHIATRIC: Normal mood, affect and normal mental status examination. - Labs CBC & Chem 7: 05/25/19 06:50 05/25/19 06:50 Labs: Abnormal Lab Results - Last 24 Hours (Table) 05/26/19 05/26/19 05/26/19 Range/Units 07:01 07:17 07:35 POC Glucose (mg/dL) 66 L 69 L 67 L (75-99) mg/dL 05/26/19 05/26/19 Range/Units 07:58 12:07 POC Glucose (mg/dL) 70 L 213 H (75-99) mg/dL Assessment and Plan Assessment: #1. Dyspnea, with left-sided pleuritic-type chest pain possibly related to viral pleuritis, small nonspecific pleural effusions most likely secondary to chronic systolic congestive heart failure, ejection fraction is 40-45%. There may also be a component of diastolic dysfunction based on the echocardiogram. #2. Mild troponin leak, rule out occult ischemia #3. History of coronary artery disease with previous bypass grafting #4. Diabetes mellitus with diabetic neuropathy #5. Progress for atrial fibrillation #6. History of deep venous thrombosis #7. Hyperlipidemia #8. Hypertension #9. Sleep apnea syndrome on CPAP therapy #10. History of chronic kidney disease Recommendation: Continue present treatment plan, Continue oral antibiotics. Continue steroids, Continue diuretics, consider discharge planning in the next 24 hours. We'll continue to follow. Time with Patient: Less than 30
[2019-05-26 16:52] LABS: Glucose,Whole Blood 218 mg/dL (75-99)
[2019-05-26 19:59] LABS: Hemoglobin A1C 10.5 % (4.0-6.0)
[2019-05-26 20:03] LABS: Glucose,Whole Blood 193 mg/dL (75-99)
[2019-05-26] MEDS ORDERED: INSULIN DETEMIR (LEVEMIR) 100 UNIT/ML SYR SQ SCH (21:00)
[2019-05-26] MEDS: ZOLPIDEM 5 MG TAB PO SCH (21:43)
[2019-05-26] MEDS: LOPERAMIDE 2 MG CAP PO PRN (21:45)
[2019-05-26] MEDS: ATORVASTATIN 80 MG TAB PO SCH (21:45)
[2019-05-26 22:09] VITALS: RESP 18
[2019-05-27] MEDS: MORPHINE SULFATE 2 MG/ML SYRINGE IVP PRN (01:59)
[2019-05-27 04:45] VITALS: BP 145/70; PULSE 65; TEMP 98.7
[2019-05-27 07:19] LABS: Glucose,Whole Blood 62 mg/dL (75-99)
[2019-05-27 07:19] LABS: Glucose,Whole Blood 62 mg/dL (75-99)
[2019-05-27] MEDS: metFORMIN 500 MG TAB PO SCH (07:23)
[2019-05-27] MEDS: INSULIN ASPART (NovoLOG) 100 UNIT/ML VIAL SQ SCH (07:23)
[2019-05-27] MEDS: ISOSORBIDE MONONITRATE ER 30 MG TAB.ER.24H PO SCH (07:27)
[2019-05-27] MEDS: METOPROLOL TARTRATE 50 MG TAB PO SCH (07:27)
[2019-05-27] MEDS: valACYclovir HCL 1,000 MG TABLET PO SCH (07:27)
[2019-05-27] MEDS: LISINOPRIL 20 MG TAB PO SCH (07:27)
[2019-05-27] MEDS: hydrALAZINE HCL 25 MG TAB PO SCH (07:27)
[2019-05-27] MEDS: APIXABAN 5 MG TAB PO SCH (07:28)
[2019-05-27] MEDS: MULTIVITAMINS, THERA 1 EACH TAB PO SCH (07:28)
[2019-05-27] MEDS: FUROSEMIDE 40 MG TAB PO SCH (07:28)
[2019-05-27] MEDS: cloNIDine HCL 0.2 MG TAB PO SCH (07:28)
[2019-05-27] MEDS: GABAPENTIN 100 MG CAP PO SCH (07:28)
[2019-05-27] MEDS: PANTOPRAZOLE 40 MG TABLET PO SCH (07:28)
[2019-05-27] MEDS: POTASSIUM CHLORIDE ER 10 MEQ TAB.ER.PRT PO SCH (07:28)
[2019-05-27] MEDS: ASPIRIN 81 MG PO SCH (07:28)
[2019-05-27 07:34] LABS: Glucose,Whole Blood 84 mg/dL (75-99)
[2019-05-27] MEDS: IPRATROPIUM-ALBUTEROL 3 ML NEB INHALATION SCH (07:58)
[2019-05-27] MEDS: ONDANSETRON 4 MG/2 ML VIAL IVP PRN (08:44)
[2019-05-27] MEDS: LOPERAMIDE 2 MG CAP PO PRN (08:47)
[2019-05-27] MEDS ORDERED: predniSONE 20 MG TAB PO SCH (09:00)
[2019-05-27] MEDS ORDERED: predniSONE 10 MG TAB PO SCH (09:00)
[2019-05-27] MEDS ORDERED: CHOLESTYRAMINE (WITH SUGAR) 4 GM PACKET PO SCH (10:00)
--- NOTE | 2019-05-27 10:36 | P.DS ---
Providers Date of admission: 05/17/19 20:10 Expected date of discharge: 05/27/19 Attending physician: Cedric Green Consults: 05/17/19 20:09 Consult Physician Urgent Consulting Provider: [facility] Consult Reason/Comments: Elevated troponin Do you want consulting provider notified?: Yes Consult Physician Urgent Consulting Provider: Andriy Foote Consult Reason/Comments: Sepsis Do you want consulting provider notified?: Already Contacted Consult Physician Urgent Consulting Provider: James Mackenzie Consult Reason/Comments: Sepsis Do you want consulting provider notified?: Yes Primary care physician: Kelly Montesinos [facility] Course: 54-year-old male one of Dr. Montesinos's patient with past medical history of CAD, recent history of A. fib with RVR post cardioversion after transesophageal echocardiogram done in early April, history of severe COPD with FEV1 57 percentile seen pulmonary regular basis. Also patient is known to have history of CAD post CABG 5 vessel back in 2006 with angioplasty time to done since. Patient had recent history of non-ST SC with heart catheter done by Dr. Ga in March found to have severe triple vessel coronary artery disease with Patent ramus intermedius stent patent saphenous vein graft to the obtuse marginal branch patent MAE to the LAD but chronically occluded saphenous vein graft to the right coronary artery recommendation for medical management at this time and ejection fraction via echocardiogram was found to be 40-45 percentile only with severe concentric left ventricular hypertrophy with mild to moderate mitral regurgitation and mild tricuspid regurgitation. Patient was hospitalized in 04/24/2019 and end up going for transesophageal echocardiogram and cardioversion was done patient was started on anticoagulation with Eliquis along with beta aracely kept his pulse rate in the 60s and 70s. Patient apparently has not been taking his medication for the last 2-3 days he developed to have worsening shortness of breath and sharp left sided chest pain on and off worsening with exertion was associated with cough low-grade temperature patient's symptoms was a lot worse at nighttime he call his PCP and was instructed to go to the emergency department after the urgent care where influenza test was done and came back negative patient presented to the emergency department continue to be very symptomatic low-grade temperature with the blood pressure slightly bit low white blood cell was 27,000 left shift his troponin was quite but elevated CRP was 172 d-dimer was quite elevated as well and patient was in acute kidney failure. His creatinine is up to 2.1 from 1.0 and last admission chest x-ray showed cuffing around the bronchial area consistent with severe bronchitis with no clear infiltrate at the time. With his elevated d-dimer and VQ scan was performed and showed no pulmonary embolism at the time. Patient lactic acid was 4.7 was started on IV antibiotic and hydration no source of infection at this point was found his COVID-19 test was performed and patient was kept in isolation and admitted to the hospital for the above problem. 05/17: Patient has been afebrile, heart rate 88, blood pressure 155/95 before medications, pulse ox 97% on 3 L nasal cannula. ProBNP 5130. Repeat troponins 1.050, 0.869. Sodium 135, BUN 46, creatinine 1.51. Total bilirubin 1.2, AST 71, ALT 53, alkaline phosphatase 117. Lactic acid down to 1.6. WBC 16.5. COVID-19 results pending. Stool for C. diff is on collected patient is currently on heparin drip until seen by cardiology. Blood culture is status received. Consults are in place for pulmonary medicine, cardiology and infectious disease. crossing gateman is sinus rhythm. 05/18: Covid 19 testing remains pending. Cardiology is following and it made no changes to medications. We will resume patient back on eliquis. Patient is complaining of chest pain with deep inspiration and continues to have some mild shortness of breath. Pulmonary has added and prednisone and albuterol inhaler. He is currently on antibiotics the form of azithromycin, ceftriaxone and vancomycin and also followed by Dr. Mackenzie. Patient is currently afebrile, heart rate 72, blood pressure 145/90, pulse ox 97% on room air. Repeat lab work reveals Sherry BC 12, hemoglobin 12.5, platelet count 99. Sodium 139, potassium 3.8, chloride 113, CO2 18, BUN 35 and creatinine 1.13. Blood sugars running anywhere between 118-223. Total bilirubin 0.8, AST 100, ALT 87, alkaline phosphatase 136. 05/19: Patient is laying down in bed in no apparent distress he continues to have a bit of her chest pain associated with the some shortness breath, he had a minimal cough, he did require some morphine sulfate yesterday for pleuritic chest pain, he had a good bowel movement today he continues to be bloated, he denies any nausea or vomiting at this time he has no fever or chills he seems to be doing better overall. Covid 19 still pending. 05/20: Patient is sitting up in bed he appears to be quite edematous in his upper extremities and lower extremities as well as his face we will Coumadin dose of Lasix 40 mg IV push 1 now and repeat in daily basis discontinue oral Lasix continue with potassium supplement, he continues to have some left-sided chest pain on and off he continued to have some shortness of breath and some dry cough he has no fever or chills at this point in time. His Covid 19 is still pending. 05/21: Covid 19 is reported negative. Patient continues to have shortness of breath and Dr. Yates has ordered a CAT scan of the chest. Patient is also been complaining of continued rash on his penis that appears to be HSV. Patient will be started on Valtrex. Patient is afebrile, heart rate 63, blood pressure 188/105 with repeated 144/80, pulse ox 93% on room air. Sodium 138, potassium 4.0, chloride 108, CO2 24, BUN 30 creatinine 1.26. Blood sugars running between 96 and 219. CAT scan of the chest reveals moderate size right pleural effusion and trace left pleural effusion. Focal groundglass at the right base probably representing atelectasis. Less likely some type of pneumonitis. Given mild interstitial thickening, generalized anasarca change in possible pulmonary artery hypertension poorly for mild CHF. COPD with minimal emphysematous cysts. Mild upper abdominal ascites and nonspecific gallbladder wall thickening. Findings may begin seen in the setting of fluid overload. Patient is currently on IV Lasix 40 mg daily 05/22: Patient has been seen by Dr. Yates and increase steroids to Solu-Medrol 60 every 6 hours with plan to continue nebulizer treatments. Patient is currently on oral Lasix 40 mg twice daily. Patient's continues to have some shortness of breath, chest pain. Patient also states rash has not improved. He received a first dose of Valtrex yesterday. Patient has been afebrile, heart rate 65, blood pressure 122/65, pulse ox 98% on room air. Repeat blood work reveals WBC 11.7, hemoglobin 12.0. Sodium 135, BUN 37 creatinine 1.19. Blood sugars running between 177 and 323. /1: Overnight, patient blood sugar went extremely high in the 400s and he was started on insulin drip. He continues to complain of right-sided chest pain. Patient is been afebrile, heart rate 72, blood pressure 130/70, pulse ox 92% on room air. Varicella-zoster IgG antibody is positive. HSV 1 testing is equivocal with recommendations for repeat testing in 4-6 weeks. HSV-[address] Mackenzie was increased Valtrex 1000 mg twice daily. The patient remains on Solu-Medrol 60 mg IV every 6 hours with no plan to change this today. Patient is also on Zithromax and Rocephin. Dr. Yates has cleared the patient for discharge home. We and is to monitor him overnight and plan for discharge tomorrow. 05/24: Patient has been transferred to [facility] floor. He was afebrile, heart rate 74, blood pressure 139/78, pulse ox 96% on room air. Repeat blood work reveals WBC 18.8, hemoglobin 12.8, platelet count 228. Sodium 135, potassium 4.3, chloride 103, CO2 21, BUN 43, creatinine 1.12. Blood sugars this morning are improved at 167. Patient was still elevated yesterday in the 200s and up to 368 and 1 report. Liver function tests within normal limits. She continues to complain of cough but not bringing up any sputum. He complains of shortness of breath with activity. He continues to have some mild fluid in the abdomen and lower extremity edema. CHARLIE hose ordered. Patient states he is having 2-3 bowel movements per day. Imdur from home will be resumed. Telemetry discontinued. Solu-Medrol will be decreased frequency to 40 mg every 12 hours. 05/25: Patient is afebrile, heart rate 74, blood pressure 137/78, pulse ox 97% on room air. Patient complains of having diarrhea 10 episodes during the night. Stool was sent for C. difficile toxin which came back negative. He is complaining of some mild nausea. We'll plan to discontinue all antibiotics: Azithromycin and Rocephin at this time. Imodium started. Patient has received a fall 9 days of antibiotics. He is currently on Solu-Medrol 40 mg every 12 hours and Lasix 40 mg oral twice daily. Solu-Medrol will be discontinued tonight and patient start oral prednisone in the morning. Blood sugars this morning in the 60s and we'll decrease Levemir to 30 units which is her home dose and discontinue scheduled NovoLog 10 units with meals. He is also on scale and continued on metformin. Plan to monitor overnight and discharged home tomorrow. 05/26: Patient continues to complain of some nausea and 4-5 episodes of diarrhea. He was started on Imodium yesterday and antibiotics were discontinued. Patient was started on Questran today. Patient has been cleared for discharge from pulmonary medicine. Patient was been on Valtrex and will need 5 more doses. Patient is afebrile, heart rate 65, blood pressure 145/70, pulse ox 97% on room air. Blood sugar this morning has been 62. Patient has been instructed to take 2 units of NovoLog at home with breakfast and continue his scale and long-acting insulin at 30 units. Patient will be discharged home today in stable condition. Discharge diagnoses: 1. Sepsis secondary to right-sided pneumonia, probable gram-negative pneumonia 2. Severe dyspnea and shortness of breath without acute respiratory failure secondary to combination of acute on chronic systolic heart failure, A. fib and COPD. 3. COPD with mild exacerbation. 4. Ruled out Covid 19. 5. Acute acute kidney failure. 6. Elevated d-dimer with negative VQ scan. 7. Elevated troponin, acute coronary syndrome ruled out by cardiology. 8. Cardiomyopathy,ischemic with low ejection fraction at 35 percentile. 9. COPD with FEV1 at 35 percentile. 10. Hypertension, hypertensive cardio vascular disease. 11. Recent history of A. fib with RVR: Post cardioversion 12. Paroxysmal atrial fibrillation, currently sinus rhythm. 13. Diabetes mellitus type 2, insulin requiring. 13. Obstructive sleep apnea. 14. HSV suspected. Repeat serology testing in a few weeks. Discharge plan: home Impression and plan of care have been directed as dictated by the signing physician. Dipika Mendez nurse practitioner acting as scribe for signing physician.primary Patient Condition at Discharge: Good Plan - Discharge Summary Discharge Rx Participant: Yes New Discharge Prescriptions: New cloNIDine HCL [Catapres] 0.2 mg PO TID #90 tab Loperamide [Imodium] 2 mg PO QID PRN cap PRN Reason: Diarrhea predniSONE 0 mg PO DIRECTED #18 tab Pantoprazole [Protonix] 40 mg PO -BRKFST #30 tablet.dr Cholestyramine (with Sugar) [Questran Packet] 4 gm PO DAILY@1000 #7 packet valACYclovir HCL [Valtrex] 1,000 mg PO BID #5 tablet Ondansetron HCl [Zofran] 4 mg PO Q8H PRN #30 tab PRN Reason: Nausea And Vomiting Continue Ergocalciferol [Vitamin D2 (DRISDOL)] 50,000 unit PO Q14D Multivitamins, Thera [Multivitamin (formulary)] 1 tab PO DAILY Lisinopril 40 mg PO DAILY Apixaban [Eliquis] 5 mg PO BID #60 tab Isosorbide Mononitrate ER [Imdur] 30 mg PO DAILY #30 tab.er.24h Gabapentin [Neurontin] 200 mg PO BID #60 cap metFORMIN HCL [Glucophage] 1,000 mg PO BID #60 tab Potassium Chloride ER [K-Dur 10] 10 meq PO DAILY #30 tab Furosemide [Lasix] 40 mg PO DAILY PRN #30 tab PRN Reason: Edema Atorvastatin [Lipitor] 80 mg PO HS #30 tab Metoprolol Tartrate [Lopressor] 100 mg PO BID #60 tab Insulin Aspart [NovoLOG Flexpen] 0 units SQ ACHS 30 Days pen Aspirin 81 mg PO DAILY #30 chewable Insulin Glargine,Hum.rec.anlog [Basaglar Kwikpen U-100] 30 unit SQ HS #1 pen hydrALAZINE HCL [Apresoline] 75 mg PO TID #270 tab Discontinued cloNIDine HCL [Catapres] 0.1 mg PO BID #60 tab Discharge Medication List Ergocalciferol [Vitamin D2 (DRISDOL)] 50,000 unit PO Q14D 07/02/16 [History] Multivitamins, Thera [Multivitamin (formulary)] 1 tab PO DAILY 12/13/16 [History] Lisinopril 40 mg PO DAILY 04/12/19 [History] Apixaban [Eliquis] 5 mg PO BID #60 tab 04/14/19 [Rx] Aspirin 81 mg PO DAILY #30 chewable 04/14/19 [Rx] Atorvastatin [Lipitor] 80 mg PO HS #30 tab 04/14/19 [Rx] Furosemide [Lasix] 40 mg PO DAILY PRN #30 tab 04/14/19 [Rx] Gabapentin [Neurontin] 200 mg PO BID #60 cap 02/21/20 [Rx] Insulin Aspart [NovoLOG Flexpen] 0 units SQ ACHS 30 Days pen 04/14/19 [Rx] Insulin Glargine,Hum.rec.anlog [Basaglar Kwikpen U-100] 30 unit SQ HS #1 pen 04/14/19 [Rx] Isosorbide Mononitrate ER [Imdur] 30 mg PO DAILY #30 tab.er.24h 04/14/19 [Rx] Metoprolol Tartrate [Lopressor] 100 mg PO BID #60 tab 04/14/19 [Rx] Potassium Chloride ER [K-Dur 10] 10 meq PO DAILY #30 tab 04/14/19 [Rx] metFORMIN HCL [Glucophage] 1,000 mg PO BID #60 tab 04/14/19 [Rx] hydrALAZINE HCL [Apresoline] 75 mg PO TID #270 tab 04/25/19 [Rx] Cholestyramine (with Sugar) [Questran Packet] 4 gm PO DAILY@1000 #7 packet 05/27/19 [Rx] Loperamide [Imodium] 2 mg PO QID PRN cap 05/27/19 [Rx] Ondansetron HCl [Zofran] 4 mg PO Q8H PRN #30 tab 05/27/19 [Rx] Pantoprazole [Protonix] 40 mg PO AC-BRKFST #30 tablet.dr 05/27/19 [Rx] cloNIDine HCL [Catapres] 0.2 mg PO TID #90 tab 05/27/19 [Rx] predniSONE 0 mg PO DIRECTED #18 tab 05/27/19 [Rx] valACYclovir HCL [Valtrex] 1,000 mg PO BID #5 tablet 05/27/19 [Rx] Follow up Appointment(s)/Referral(s): Jorge Luis Ga MD [Family Provider] - 06/07/19 10:45 am (Wednesday with HOSPICE COORDINATOR -scheduled stress test is being rescheduled per ground nuclear weapons assembly officer ) Kelly Montesinos MD [Primary Care Provider] - 1 Week Activity/Diet/Wound Care/Special Instructions: While on Prednisone, take novolog 2 units with breakfast in addition to scale. Once Prednisone is completed, go back to previous dosing. Discharge Disposition: HOME SELF-CARE
== END 2019-05-27 10:59 | disposition home or self-care (01) | DRG 871 ==
LOC: EC 13:48 → 3SCARD 20:10 → 6NMEDSUR 05-24 21:40
PROVIDERS: ADMIT Internal Medicine Geriatric Medicine; ATTEND Internal Medicine Geriatric Medicine
DX: A41.50 Gram-negative sepsis, unspecified (principal); I50.23 Acute on chronic systolic (congestive) heart failure; J15.6 Pneumonia due to other Gram-negative bacteria; N17.9 Acute kidney failure, unspecified; I13.0 Hypertensive heart and chronic kidney disease with heart failure and stage 1 through stage 4 chronic kidney disease, or unspecified chronic kidney disease; R18.8 Other ascites; J44.1 Chronic obstructive pulmonary disease with (acute) exacerbation; J44.0 Chronic obstructive pulmonary disease with (acute) lower respiratory infection; I25.810 Atherosclerosis of coronary artery bypass graft(s) without angina pectoris; I48.19 Other persistent atrial fibrillation; K52.1 Toxic gastroenteritis and colitis; J98.11 Atelectasis; B01.9 Varicella without complication; I27.29 Other secondary pulmonary hypertension; I25.82 Chronic total occlusion of coronary artery; E11.40 Type 2 diabetes mellitus with diabetic neuropathy, unspecified; E11.22 Type 2 diabetes mellitus with diabetic chronic kidney disease; N18.2 Chronic kidney disease, stage 2 (mild); D72.810 Lymphocytopenia; N50.9 Disorder of male genital organs, unspecified; I25.10 Atherosclerotic heart disease of native coronary artery without angina pectoris; G47.33 Obstructive sleep apnea (adult) (pediatric); R09.1 Pleurisy; R11.0 Nausea; R79.89 Other specified abnormal findings of blood chemistry; E78.5 Hyperlipidemia, unspecified; I25.5 Ischemic cardiomyopathy; I08.1 Rheumatic disorders of both mitral and tricuspid valves; T36.3X5A Adverse effect of macrolides, initial encounter; T36.1X5A Adverse effect of cephalosporins and other beta-lactam antibiotics, initial encounter; I25.2 Old myocardial infarction; Z71.3 Dietary counseling and surveillance; Z20.828 Contact with and (suspected) exposure to other viral communicable diseases; Z79.899 Other long term (current) drug therapy; Z79.01 Long term (current) use of anticoagulants; Z79.82 Long term (current) use of aspirin; Z79.4 Long term (current) use of insulin; Z91.14 Patient's other noncompliance with medication regimen; Z87.01 Personal history of pneumonia (recurrent); Z86.718 Personal history of other venous thrombosis and embolism; Z86.14 Personal history of Methicillin resistant Staphylococcus aureus infection; Z95.1 Presence of aortocoronary bypass graft; Z95.5 Presence of coronary angioplasty implant and graft; Z98.1 Arthrodesis status; Z98.890 Other specified postprocedural states; Z88.1 Allergy status to other antibiotic agents; Z91.048 Other nonmedicinal substance allergy status; Z83.3 Family history of diabetes mellitus; Z82.49 Family history of ischemic heart disease and other diseases of the circulatory system; Z82.5 Family history of asthma and other chronic lower respiratory diseases; Z82.61 Family history of arthritis
CPT/HCPCS: 36415; 71046; 71250; 78582; 80048; 80053; 80202; 81001; 82550; 82728; 83036; 83605; 83615; 83880; 84145; 84484; 85025; 85027; 85379; 85610; 85730; 86140; 86694; 86695; 86696; 86787; 87040; 87324; 87502; 93005; 93306; 94640; 94760; 96361; 96365; 96366; 96368; 96375; 99291

== ENCOUNTER 2019-11-09 12:46 | Observation (INO) | payer MEDICARE ==
[2019-11-09] MEDS ORDERED: ASPIRIN 81 MG PO STA (12:58)
[2019-11-09] MEDS ORDERED: NITROGLYCERIN OINT 1 INCH/GM PACKET TOPICAL STA (12:58)
--- NOTE | 2019-11-09 13:02 | ED ---
General Adult HPI - General Chief complaint: Chest Pain Stated complaint: sent by pcp/chest pain Time Seen by Provider: 11/09/19 12:50 Source: patient, RN notes reviewed, old records reviewed Mode of arrival: ambulatory Limitations: no limitations - History of Present Illness Initial comments: This a 54-year-old male who presents emergency Department with a past medical history significant for bypass surgery. Patient states been having intermittent chest pain all week. Patient states he went to his doctor yesterday they oralia blood labs and called him today and told to come the emergency department because one of his cardiac enzymes is elevated. Patient states he continues to have chest pain is become more frequent over the last couple of days. Patient states she's also short of breath per patient denies any radiation of pain. Patient denies any nausea vomiting. Patient denies any diaphoretic episodes. Patient states the pain is very similar to the pain he had when he has previous heart attack. Patient denies any recent fever chills or cough per patient denies any swelling to legs or calf tenderness. Patient has no chest pain cur rently - Related Data Home Medications Medication Instructions Recorded Confirmed Ergocalciferol [Vitamin D2 50,000 unit PO Q14D 07/02/16 05/17/19 (DRISDOL)] Multivitamins, Thera [Multivitamin 1 tab PO DAILY 12/13/16 05/17/19 (formulary)] lisinopriL 40 mg PO DAILY 04/12/19 05/17/19 Previous Rx's Medication Instructions Recorded Apixaban [Eliquis] 5 mg PO BID #60 tab 04/14/19 Aspirin 81 mg PO DAILY #30 chewable 04/14/19 Atorvastatin [Lipitor] 80 mg PO HS #30 tab 04/14/19 Furosemide [Lasix] 40 mg PO DAILY PRN #30 tab 04/14/19 Gabapentin [Neurontin] 200 mg PO BID #60 cap 04/14/19 Insulin Aspart [NovoLOG Flexpen] 0 units SQ ACHS 30 Days pen 04/14/19 Insulin Glargine,Hum.rec.anlog 30 unit SQ HS #1 pen 04/14/19 [Basaglar Kwikpen U-100] Isosorbide Mononitrate ER [Imdur] 30 mg PO DAILY #30 tab.er.24h 04/14/19 Metoprolol Tartrate [Lopressor] 100 mg PO BID #60 tab 04/14/19 Potassium Chloride ER [K-Dur 10] 10 meq PO DAILY #30 tab 04/14/19 metFORMIN HCL [Glucophage] 1,000 mg PO BID #60 tab 04/14/19 hydrALAZINE HCL [Apresoline] 75 mg PO TID #270 tab 04/25/19 Cholestyramine (with Sugar) 4 gm PO DAILY@1000 #7 packet 05/27/19 [Questran Packet] Loperamide [Imodium] 2 mg PO QID PRN cap 05/27/19 Ondansetron HCl [Zofran] 4 mg PO Q8H PRN #30 tab 05/27/19 Pantoprazole [Protonix] 40 mg PO AC-BRKFST #30 tablet. 05/27/19 cloNIDine HCL [Catapres] 0.2 mg PO TID #90 tab 05/27/19 predniSONE 0 mg PO DIRECTED #18 tab 05/27/19 valACYclovir HCL [Valtrex] 1,000 mg PO BID #5 tablet 05/27/19 Allergies Allergy/AdvReac Type Severity Reaction Status Date / Time adhesive tape Allergy Severe Rash/Hives Verified 11/09/19 12:48 vancomycin Allergy Mild Rash/Hives Verified 11/09/19 12:48 Review of Systems ROS Statement: Those systems with pertinent positive or pertinent negative responses have been documented in the HPI. ROS Other: All systems not noted in ROS Statement are negative. Past Medical History Past Medical History: Asthma, Coronary Artery Disease (CAD), Chest Pain / Angina, Diabetes Mellitus, Deep Vein Thrombosis (DVT), Hyperlipidemia, Hypertension, Myocardial Infarction ([place]), Sleep Apnea/CPAP/BIPAP Additional Past Medical History / Comment(s): Obstructive sleep apnea CPAP, bronchitis, IDDM type II, DVT L leg, cellulitis L leg 2012 cellulitis L Arm 2017, diabetic neuropathy affects feet and hands, chronic kidney disease stage II Last Myocardial Infarction Date:: 06/23/13 History of Any Multi-Drug Resistant Organisms: Acinetobacter (MDRO), MRSA Date of last positivie culture/infection: 08/2014 MDRO Source:: abdomen around navel Past Surgical History: Back Surgery, Coronary Bypass/CABG, Heart Catheterization, Heart Catheterization With Stent, Hernia Repair Additional Past Surgical History / Comment(s): Cardiac caths, PCI with stents ( 4total), 2006 CABG 6 vessels, spinal fusion L4-L5, fasciotomy left thigh, bilateral inguinal hernia repairs, I&D L forearm with dehisence then compartment syndrome with fasciotomy Left forearm - June 2016 Past Anesthesia/Blood Transfusion Reactions: No Reported Reaction Date of Last Stent Placement:: 08/28/15 Past Psychological History: No Psychological Hx Reported Smoking Status: Current every day smoker, Current some day smoker, Never smoker Past Alcohol Use History: None Reported Past Drug Use History: None Reported - Past Family History Brother(s) Additional Family Medical History / Comment(s): Patient has 1 brother and 1 sister with no major medical problems. Mother Family Medical History: Congestive Heart Failure (CHF), Diabetes Mellitus Additional Family Medical History / Comment(s): Mother at the age of 84 from with history of chronic renal disease stage. Father Family Medical History: COPD, Coronary Artery Disease (CAD), Myocardial Infarction ([place]) Additional Family Medical History / Comment(s): Father of a MN at the age of 60 yrs with history of COPD. Sister(s) Family Medical History: Rheumatoid Arthritis (RA) Additional Family Medical History / Comment(s): Patient has 1 sister with no ma cecilia medical problems. General Exam - General Exam Comments Initial Comments: GENERAL: Patient is well-developed and well-nourished. Patient is nontoxic and well- hydrated and is in no acute distress. ENT: Neck is soft and supple. No significant lymphadenopathy is noted. Oropharynx is clear. Moist mucous membranes. Neck has full range of motion without eliciting any pain. EYES: The sclera were anicteric and conjunctiva were pink and moist. Extraocular movements were intact and pupils were equal round and reactive to light. Eyelids were unremarkable. PULMONARY: Unlabored respirations. Good breath sounds bilaterally. No audible rales rhonchi or wheezing was noted. CARDIOVASCULAR: There is a regular rate and rhythm without any murmurs gallops or rubs. ABDOMEN: Soft and nontender with normal bowel sounds. SKIN: Skin is clear with no lesions or rashes and otherwise unremarkable. NEUROLOGIC: Patient is alert and oriented x3. Cranial nerves II through XII are grossly intact. Motor and sensory are also intact. Normal speech, volume and content. Symmetrical smile. MUSCULOSKELETAL: Normal extremities with adequate strength and full range of motion. No lower extremity swelling or edema. No calf tenderness. LYMPHATICS: No significant lymphadenopathy is noted PSYCHIATRIC: Normal psychiatric evaluation. Limitations: no limitations Course Vital Signs 11/09/19 11/09/19 11/09/19 12:49 13:30 13:53 Temperature 98.2 F Pulse Rate 100 96 94 Respiratory 18 18 18 Rate Blood Pressure 146/75 188/113 199/119 O2 Sat by Pulse 99 96 98 Oximetry Medical Decision Making - Medical Decision Making EKG shows sinus rhythm at 90 bpm ME interval is 152 QRS is 96 Q-T intervals 360 QTC is 459 per patient has T-wave inversions inferiorly as well as precordial leads V4 through V6 SEEN on previous EKG I started the patient on heparin because the patient's history and current symptoms and an elevated troponin. Chest x-ray shows no acute abnormality. I spoke with Dr. Montesinos he agreed to admit the patient admitted the patient I consult cardiology I continued heparin and aspirin and Nitropaste on the floor. - Lab Data Result diagrams: 11/09/19 13:10 11/09/19 13:10 Lab Results 11/09/19 11/09/19 11/09/19 Range/Units 13:10 13:10 13:10 WBC 7.0 (3.8-10.6) k/uL RBC 5.59 (4.30-5.90) m/uL Hgb 15.7 (13.0-17.5) gm/dL Hct 46.8 (39.0-53.0) % MCV 83.7 (80.0-100.0) fL MCH 28.1 (25.0-35.0) pg MCHC 33.6 (31.0-37.0) g/dL RDW 12.9 (11.5-15.5) % Plt Count 154 (150-450) k/uL Neutrophils % 78 % Lymphocytes % 12 % Monocytes % 6 % Eosinophils % 3 % Basophils % 1 % Neutrophils # 5.5 (1.3-7.7) k/uL Lymphocytes # 0.9 L (1.0-4.8) k/uL Monocytes # 0.4 (0-1.0) k/uL Eosinophils # 0.2 (0-0.7) k/uL Basophils # 0.1 (0-0.2) k/uL PT 9.8 (9.0-12.0) sec INR 0.9 (<1.2) APTT 23.8 (22.0-30.0) sec Sodium 136 L (137-145) mmol/L Potassium 4.4 (3.5-5.1) mmol/L Chloride 101 (98-107) mmol/L Carbon Dioxide 28 (22-30) mmol/L Anion Gap 7 mmol/L BUN 21 H (9-20) mg/dL Creatinine 0.99 (0.66-1.25) mg/dL Est GFR (CKD-EPI)AfAm >90 (>60 ml/min/1.73 sqM) Est GFR (CKD-EPI)NonAf 85 (>60 ml/min/1.73 sqM) Glucose 482 H (74-99) mg/dL Calcium 9.3 (8.4-10.2) mg/dL Magnesium 2.0 (1.6-2.3) mg/dL Total Bilirubin 0.9 (0.2-1.3) mg/dL AST 25 (17-59) U/L ALT 20 (4-49) U/L Alkaline Phosphatase 105 (38-126) U/L Troponin I (0.000-0.034) ng/mL Total Protein 6.9 (6.3-8.2) g/dL Albumin 4.1 (3.5-5.0) g/dL Acetone, Qual Negative (Negative) 11/09/19 Range/Units 13:10 WBC (3.8-10.6) k/uL RBC (4.30-5.90) m/uL Hgb (13.0-17.5) gm/dL Hct (39.0-53.0) % MCV (80.0-100.0) fL MCH (25.0-35.0) pg MCHC (31.0-37.0) g/dL RDW (11.5-15.5) % Plt Count (150-450) k/uL Neutrophils % % Lymphocytes % % Monocytes % % Eosinophils % % Basophils % % Neutrophils # (1.3-7.7) k/uL Lymphocytes # (1.0-4.8) k/uL Monocytes # (0-1.0) k/uL Eosinophils # (0-0.7) k/uL Basophils # (0-0.2) k/uL PT (9.0-12.0) sec INR (<1.2) APTT (22.0-30.0) sec Sodium (137-145) mmol/L Potassium (3.5-5.1) mmol/L Chloride (98-107) mmol/L Carbon Dioxide (22-30) mmol/L Anion Gap mmol/L BUN (9-20) mg/dL Creatinine (0.66-1.25) mg/dL Est GFR (CKD-EPI)AfAm (>60 ml/min/1.73 sqM) Est GFR (CKD-EPI)NonAf (>60 ml/min/1.73 sqM) Glucose (74-99) mg/dL Calcium (8.4-10.2) mg/dL Magnesium (1.6-2.3) mg/dL Total Bilirubin (0.2-1.3) mg/dL AST (17-59) U/L ALT (4-49) U/L Alkaline Phosphatase (38-126) U/L Troponin I 0.051 H* (0.000-0.034) ng/mL Total Protein (6.3-8.2) g/dL Albumin (3.5-5.0) g/dL Acetone, Qual (Negative) Critical Care Time Critical Care Time: Yes Total Critical Care Time: 35 Disposition Clinical Impression: Unstable angina Disposition: ADMITTED IP TO THIS HOSP Referrals: Kelly Montesinos MD [Primary Care Provider] - 1-2 days Time of Disposition: 14:34
[2019-11-09 13:40] LABS: ALT 20 U/L (4-49); AST 25 U/L (17-59); African American GFR (CKD) >90 (>60 ml/min/1.73 sqM); Albumin 4.1 g/dL (3.5-5.0); Alkaline Phosphatase 105 U/L (38-126); Anion Gap 7 mmol/L; Blood Urea Nitrogen 21 mg/dL (9-20); Calcium 9.3 mg/dL (8.4-10.2); Carbon Dioxide 28 mmol/L (22-30); Chloride 101 mmol/L (98-107); Glucose 482 mg/dL (74-99); Non-African American GFR(CKD) 85 (>60 ml/min/1.73 sqM); Potassium 4.4 mmol/L (3.5-5.1); Sodium 136 mmol/L (137-145); Total Bilirubin 0.9 mg/dL (0.2-1.3); Total Protein 6.9 g/dL (6.3-8.2)
[2019-11-09 13:41] LABS: INR 0.9 (<1.2); Partial Thromboplastin Time 23.8 sec (22.0-30.0); Prothrombin Time 9.8 sec (9.0-12.0)
[2019-11-09 13:48] LABS: Basophils # (A) 0.1 k/uL (0-0.2); Basophils % (A) 1 %; Eosinophils # (A) 0.2 k/uL (0-0.7); Eosinophils % (A) 3 %; HCT 46.8 % (39.0-53.0); HGB 15.7 gm/dL (13.0-17.5); Lymphocytes # (A) 0.9 k/uL (1.0-4.8); Lymphocytes % (A) 12 %; MCH 28.1 pg (25.0-35.0); MCHC 33.6 g/dL (31.0-37.0); MCV 83.7 fL (80.0-100.0); Mean Platelet Volume 8.3; Monocytes # (A) 0.4 k/uL (0-1.0); Monocytes % (A) 6 %; Neutrophils # (A) 5.5 k/uL (1.3-7.7); Neutrophils % (A) 78 %; Platelet Count 154 k/uL (150-450); RBC 5.59 m/uL (4.30-5.90); RDW 12.9 % (11.5-15.5)
--- NOTE | 2019-11-09 13:50 | XR ---
EXAMINATION TYPE: XR chest 2V DATE OF EXAM: 11/09/2019 COMPARISON: 05/17/2019 HISTORY: Shortness of breath TECHNIQUE: Frontal and lateral views of the chest are obtained. FINDINGS: Scattered senescent parenchymal changes noted. Hyperinflation compatible with COPD. No evidence for infiltrate. No evidence for atelectasis. Heart size is stable. Mediastinal structures are stable and grossly unremarkable. No evidence for hilar prominence. Degenerative changes dorsal spine. IMPRESSION: 1. No evidence for acute pulmonary disease.
[2019-11-09] MEDS: ACETAMINOPHEN TAB 325 MG TAB PO PRN ×2 (13:51→23:15)
[2019-11-09] MEDS ORDERED: hydrALAZINE HCL 20 MG/ML 1 ML VIAL IVP STA (13:56)
[2019-11-09] MEDS ORDERED: INSULIN ASPART (NovoLOG) 100 UNIT/ML VIAL SQ ONE (14:23)
[2019-11-09] MEDS ORDERED: HEPARIN SODIUM,PORCINE 5,000 UNIT/ML 1 ML VIAL IV ONE (14:32)
[2019-11-09] MEDS ORDERED: NITROGLYCERIN SL TABS 0.4 MG TAB SUBLINGUAL PRN (14:35)
[2019-11-09] MEDS ORDERED: HEPARIN SOD,PORK IN 0.45% NACL 25,000 UNIT in 0.45% NACL 1 250ML.BAG IV SCH (14:45)
[2019-11-09] MEDS ORDERED: MORPHINE SULFATE 2 MG/ML SYRINGE IVP STA (15:01)
[2019-11-09 16:54] LABS: Glucose,Whole Blood 259 mg/dL (75-99)
[2019-11-09] MEDS: NITROGLYCERIN OINT 1 INCH/GM PACKET TOPICAL SCH ×2 (17:52→23:16)
[2019-11-09 20:21] LABS: Glucose,Whole Blood 192 mg/dL (75-99)
[2019-11-09] MEDS: cloNIDine HCL 0.1 MG TAB PO SCH (21:06)
[2019-11-09] MEDS: INSULIN DETEMIR (LEVEMIR) 100 UNIT/ML SYR SQ SCH (21:06)
[2019-11-09] MEDS: ATORVASTATIN 80 MG TAB PO SCH (21:06)
[2019-11-09] MEDS: GABAPENTIN 300 MG CAP PO SCH (21:07)
[2019-11-09] MEDS: METOPROLOL TARTRATE 50 MG TAB PO SCH (21:07)
[2019-11-09] MEDS: hydrALAZINE HCL 50 MG TAB PO SCH (21:07)
[2019-11-09] MEDS: INSULIN ASPART (NovoLOG) 100 UNIT/ML VIAL SQ SCH (21:07)
[2019-11-09] MEDS: MORPHINE SULFATE 2 MG/ML SYRINGE IVP PRN (21:08)
[2019-11-10] MEDS: MORPHINE SULFATE 2 MG/ML SYRINGE IVP PRN ×4 (02:29→20:28)
[2019-11-10 04:58] LABS: Cholesterol 217 mg/dL (<200); HDL Cholesterol 57 mg/dL (40-60); LDL Cholesterol,Calculated 127 mg/dL (0-99); Triglycerides 163 mg/dL (<150)
[2019-11-10] MEDS: NITROGLYCERIN OINT 1 INCH/GM PACKET TOPICAL SCH (06:44)
[2019-11-10 07:25] LABS: Glucose,Whole Blood 210 mg/dL (75-99)
[2019-11-10] MEDS: INSULIN ASPART (NovoLOG) 100 UNIT/ML VIAL SQ SCH ×7 (07:42→20:20)
[2019-11-10] MEDS: hydroCHLOROthiazide 12.5 MG CAP PO SCH (08:05)
[2019-11-10] MEDS: LOSARTAN 50 MG TAB PO SCH (08:05)
[2019-11-10] MEDS: POTASSIUM CHLORIDE ER 10 MEQ TAB.ER.PRT PO SCH (08:05)
[2019-11-10] MEDS: ISOSORBIDE MONONITRATE ER 30 MG TAB.ER.24H PO SCH (08:05)
[2019-11-10] MEDS: GABAPENTIN 300 MG CAP PO SCH ×2 (08:05→20:27)
[2019-11-10] MEDS: cloNIDine HCL 0.1 MG TAB PO SCH ×2 (08:05→20:27)
[2019-11-10] MEDS: METOPROLOL TARTRATE 50 MG TAB PO SCH ×2 (08:05→20:27)
[2019-11-10] MEDS: MULTIVITAMINS, THERA 1 EACH TAB PO SCH (08:06)
[2019-11-10] MEDS: hydrALAZINE HCL 50 MG TAB PO SCH ×3 (08:06→21:34)
[2019-11-10] MEDS: FUROSEMIDE 40 MG TAB PO SCH (08:06)
[2019-11-10] MEDS ORDERED: NON FORMULARY DRUG (Losartan/Hydrochlorothiazide [Hyzaar 100-12.5 Tablet] 1 EACH Tablet) PO SCH (09:00)
[2019-11-10] MEDS ORDERED: ASPIRIN 325 MG TAB PO SCH (09:00)
--- NOTE | 2019-11-10 10:41 | P.CRDCN ---
History of Present Illness Consult date: 11/10/19 Consult reason: chest pain Chief complaint: Chest pain History of present illness: This is a 54-year-old gentleman who follows regularly with Dr. Ga in the office. He has a known history of coronary artery disease with prior bypass surgery, diabetes, hypertension, hyperlipidemia, sleep apnea, prior DVT history, nicotine dependence, COPD, ischemic cardiomyopathy, paroxysmal atrial fibrillation, most recent cardiac catheterization was performed in March of this year which revealed severe triple-vessel coronary artery disease with a patent ramus intermediate, patent SVG to the OM, patent MAE to the LAD, and occluded saphenous vein graft to the RCA which is chronic from before. Medical therapy was advised at that time. Patient presented to the hospital from Dr. Montesinos's office. He states that he initially went to the office with complaints of feeling as though he may have an inguinal hernia. He's also been experiencing tightness in his chest off and on since Wednesday. The patient has not been taking his medications regularly because of finances. He has not been taking his Eliquis and was started on xarelto in the office by Dr. Montesinos and given samples. Cardiology consultation was requested because of the symptoms of intermittent chest tightness. Chest x-ray on admission did not show any acute disease. EKG showed sinus tachycardia with inferior lateral ST-T wave changes, similar changes to prior. White blood cell count 7.0, hemoglobin 15.7, platelet count 154 year sodium 136, potassium 4.4, BUN 21, creatinine 0.9. Cholesterol 217, LDL 127, HDL 57, triglycerides 163. Troponins 0.05, 0.05, 0.05, 0.05, and 0.04. At the time of my examination this morning, patient is not experiencing any chest tightness. We will optimize his medications and continue maximal medical therapy at this time. We will also have social work see the patient regarding assistance with medications. Past Medical History Past Medical History: Asthma, Coronary Artery Disease (CAD), Chest Pain / Angina, Diabetes Mellitus, Deep Vein Thrombosis (DVT), Hyperlipidemia, Hypertension, Myocardial Infarction ([place]), Sleep Apnea/CPAP/BIPAP Additional Past Medical History / Comment(s): Obstructive sleep apnea CPAP, bronchitis, IDDM type II, DVT L leg, cellulitis L leg 2012 cellulitis L Arm 2017, diabetic neuropathy affects feet and hands, chronic kidney disease stage II Last Myocardial Infarction Date:: 06/23/13 History of Any Multi-Drug Resistant Organisms: Acinetobacter (MDRO), MRSA Date of last positivie culture/infection: 08/2014 MDRO Source:: abdomen around navel Past Surgical History: Back Surgery, Coronary Bypass/CABG, Heart Catheterization, Heart Catheterization With Stent, Hernia Repair Additional Past Surgical History / Comment(s): Cardiac caths, PCI with stents (4total), 2006 CABG 6 vessels, spinal fusion L4-L5, fasciotomy left thigh, bilateral inguinal hernia repairs, I&D L forearm with dehisence then compartment syndrome with fasciotomy Left forearm - June 2016 Past Anesthesia/Blood Transfusion Reactions: No Reported Reaction Date of Last Stent Placement:: 08/28/15 Past Psychological History: No Psychological Hx Reported Additional Psychological History / Comment(s): Pt is independent. Smoking Status: Never smoker Past Alcohol Use History: None Reported Additional Past Alcohol Use History / Comment(s): He denies any medical marijuana, marijuana, street drug use. He is and lives alone. He is on disability due to his diabetes and coronary artery disease. He has one son with no major medical problems. Past Drug Use History: None Reported - Past Family History Brother(s) Additional Family Medical History / Comment(s): Patient has 1 brother and 1 sister with no major medical problems. Mother Family Medical History: Congestive Heart Failure (CHF), Diabetes Mellitus Additional Family Medical History / Comment(s): Mother at the age of 84 from with history of chronic renal disease stage. Father Family Medical History: COPD, Coronary Artery Disease (CAD), Myocardial Infarction ([place]) Additional Family Medical History / Comment(s): Father of a MA at the age of 60 yrs with history of COPD. Sister(s) Family Medical History: Rheumatoid Arthritis (RA) Additional Family Medical History / Comment(s): Patient has 1 sister with no major medical problems. Medications and Allergies Home Medications Medication Instructions Recorded Confirmed Type Multivitamins, Thera [Multivitamin 1 tab PO DAILY 12/13/16 11/09/19 History (formulary)] Aspirin 81 mg PO DAILY #30 chewable 04/14/19 11/09/19 Rx Atorvastatin [Lipitor] 80 mg PO HS #30 tab 04/14/19 11/09/19 Rx Isosorbide Mononitrate ER [Imdur] 30 mg PO DAILY #30 tab.er.24h 04/14/19 11/09/19 Rx Metoprolol Tartrate [Lopressor] 100 mg PO BID #60 tab 04/14/19 11/09/19 Rx Potassium Chloride ER [K-Dur 10] 10 meq PO DAILY #30 tab 04/14/19 11/09/19 Rx Furosemide [Lasix] 40 mg PO DAILY 11/09/19 11/09/19 History Gabapentin [Neurontin] 600 mg PO BID 11/09/19 11/09/19 History Insulin Aspart [NovoLOG Flexpen] See Protocol SQ AC-TID 11/09/19 11/09/19 History Insulin Glargine,Hum.rec.anlog 21 unit SQ HS 11/09/19 11/09/19 History [Basaglar Kwikpen U-100] Losartan/Hydrochlorothiazide 1 tab PO DAILY 11/09/19 11/09/19 History [Hyzaar 100-12.5 Tablet] Nitroglycerin Sl Tabs [Nitrostat] 0.4 mg SL Q5M PRN 11/09/19 11/09/19 History Rivaroxaban [Xarelto] 20 mg PO DAILY 11/09/19 11/09/19 History cloNIDine HCL [Catapres] 0.1 mg PO BID 11/09/19 11/09/19 History hydrALAZINE HCL [Apresoline] 50 mg PO BID 11/09/19 11/09/19 History metFORMIN HCL [Glucophage] 1,000 mg PO AC-BID 11/09/19 11/09/19 History Allergies Allergy/AdvReac Type Severity Reaction Status Date / Time adhesive tape Allergy Severe Rash/Hives Verified 11/09/19 16:02 vancomycin Allergy Mild Head Itches Verified 11/09/19 16:02 Physical Exam Vitals: Vital Signs Temp Pulse Pulse Resp BP BP Pulse Ox 11/10/19 08:00 97.4 F L 64 19 147/89 98 11/10/19 03:00 97.6 F 70 19 149/79 94 L 11/10/19 00:00 97.9 F 62 16 148/73 97 11/09/19 20:00 97.7 F 92 16 180/94 98 11/09/19 16:54 98.6 F 92 18 166/105 97 11/09/19 16:07 93 18 154/109 98 11/09/19 15:44 98.5 F 91 22 177/93 11/09/19 13:53 94 18 199/119 98 11/09/19 13:30 96 18 188/113 96 11/09/19 12:49 98.2 F 100 18 146/75 99 Intake and Output 11/09/19 11/10/19 11/10/19 22:59 06:59 14:59 Intake Total 592.131 52.52 Output Total 325 575 Balance 267.131 -522.48 Intake: Intake, IV Titration 52.131 52.52 Amount Heparin Sod,Pork in 0.45% 52.131 52.52 NaCl 25,000 unit In 0.45 % NaCl 1 250ml.bag @ 12 UNITS/KG/HR 8.546 mls/hr IV .Q24H [facility] Rx#: [id number] Oral 540 Output: Urine 325 575 Other: # Voids 1 2 1 Weight 71.214 kg 71.4 kg PHYSICAL EXAMINATION: GENERAL: 54-year-old gentleman in no acute distress at the time of my examination HEENT: Head is atraumatic, normocephalic. Pupils equal, round. Sclera anicteric. Conjunctiva are clear. Mucous membranes of the mouth are moist. Neck is supple. There is no elevated jugular venous pressure. No carotid bruit is heard. HEART EXAMINATION: Heart S1, S2 systolic ejection murmur is heard . CHEST EXAMINATION: Lungs are clear to auscultation and precussion. No chest wall tenderness is noted on palpation or with deep breathing. ABDOMEN: Soft, nontender. Bowel sounds are heard. No organomegaly noted. EXTREMITIES: 2+ peripheral pulses with no evidence of peripheral edema and no calf tenderness noted. NEUROLOGIC patient is awake, alert and oriented 3 . . Results 11/09/19 13:10 11/09/19 13:10 Cardiac Enzymes 11/09/19 11/09/19 11/09/19 Range/Units 13:10 13:10 16:12 AST 25 (17-59) U/L Troponin I 0.051 H* 0.052 H* (0.000-0.034) ng/mL 11/09/19 11/10/19 11/10/19 Range/Units 18:56 01:08 04:02 AST (17-59) U/L Troponin I 0.056 H* 0.054 H* 0.049 H* (0.000-0.034) ng/mL Coagulation 11/09/19 11/09/19 11/10/19 Range/Units 13:10 20:30 01:08 PT 9.8 (9.0-12.0) sec APTT 23.8 33.9 H 41.6 H (22.0-30.0) sec 11/10/19 Range/Units 09:48 PT (9.0-12.0) sec APTT 55.2 H (22.0-30.0) sec Lipids 11/10/19 Range/Units 04:02 Triglycerides 163 H (<150) mg/dL Cholesterol 217 H (<200) mg/dL HDL Cholesterol 57 (40-60) mg/dL CBC 11/09/19 Range/Units 13:10 WBC 7.0 (3.8-10.6) k/uL RBC 5.59 (4.30-5.90) m/uL Hgb 15.7 (13.0-17.5) gm/dL Hct 46.8 (39.0-53.0) % Plt Count 154 (150-450) k/uL Comprehensive Metabolic Panel 11/09/19 Range/Units 13:10 Sodium 136 L (137-145) mmol/L Potassium 4.4 (3.5-5.1) mmol/L Chloride 101 (98-107) mmol/L Carbon Dioxide 28 (22-30) mmol/L BUN 21 H (9-20) mg/dL Creatinine 0.99 (0.66-1.25) mg/dL Glucose 482 H (74-99) mg/dL Calcium 9.3 (8.4-10.2) mg/dL AST 25 (17-59) U/L ALT 20 (4-49) U/L Alkaline Phosphatase 105 (38-126) U/L Total Protein 6.9 (6.3-8.2) g/dL Albumin 4.1 (3.5-5.0) g/dL Current Medications Generic Name Dose Route Start Last Admin Trade Name Freq PRN Reason Stop Dose Admin Acetaminophen 650 mg 11/09/19 13:30 11/09/19 23:15 Acetaminophen Tab 325 Mg Tab PO 650 mg Q6HR PRN Administration Fever and/ or Pain Aspirin 325 mg 11/10/19 09:00 11/10/19 08:05 Aspirin 325 Mg Tab PO 325 mg DAILY [facility] Administration Atorvastatin Calcium 80 mg 11/09/19 21:00 11/09/19 21:06 Atorvastatin 80 Mg Tab PO 80 mg HS INDERJIT Administration Clonidine 0.1 mg 11/09/19 21:00 11/10/19 08:05 Clonidine Hcl 0.1 Mg Tab PO 0.1 mg BID INDERJIT Administration Furosemide 40 mg 11/10/19 09:00 11/10/19 08:06 Furosemide 40 Mg Tab PO 40 mg DAILY INDERJIT Administration Gabapentin 600 mg 11/09/19 21:00 11/10/19 08:05 Gabapentin 300 Mg Cap PO 600 mg BID INDERJIT Administration Hydralazine HCl 50 mg 11/09/19 22:00 11/10/19 08:06 Hydralazine Hcl 50 Mg Tab PO 50 mg TID INDERJIT Administration Hydrochlorothiazide 12.5 mg 11/10/19 09:00 11/10/19 08:05 Hydrochlorothiazide 12.5 Mg Cap PO 12.5 mg DAILY INDERJIT Administration Heparin Sodium/Sodium Chloride 250 mls @ 8.546 mls/hr 11/09/19 14:45 11/10/19 01:54 25,000 unit/ Sodium Chloride IV 17 units/kg/hr .Q24H INDER[facility] 12.106 mls/hr Titration Protocol 12 UNITS/KG/HR Insulin Aspart 7 unit 11/10/19 07:30 11/10/19 07:42 Insulin Aspart (Novolog) 100 Unit/Ml Vial SQ Not Given AC-TID [facility] Insulin Aspart 0 unit 11/09/19 21:00 11/10/19 08:06 Insulin Aspart (Novolog) 100 Unit/Ml Vial SQ 3 unit ACHS [facility] Administration Protocol Insulin Detemir 23 unit 11/09/19 21:00 11/09/19 21:06 Insulin Detemir (Levemir) 100 Unit/Ml Syr SQ 23 unit HS [facility] Administration Isosorbide Mononitrate 30 mg 11/10/19 09:00 11/10/19 08:05 Isosorbide Mononitrate Er 30 Mg Tab.Er.24h PO 30 mg DAILY [facility] Administration Losartan Potassium 100 mg 11/10/19 09:00 11/10/19 08:05 Losartan 50 Mg Tab PO 100 mg DAILY IN[facility] Administration Metoprolol Tartrate 100 mg 11/09/19 21:00 11/10/19 08:05 Metoprolol Tartrate 50 Mg Tab PO 100 mg BID [facility] Administration Morphine Sulfate 2 mg 11/09/19 20:06 11/10/19 06:43 Morphine Sulfate 2 Mg/Ml Syringe IVP 2 mg Q4H PRN Administration Pain Multivitamins 1 each 11/10/19 09:00 11/10/19 08:06 Multivitamins, Thera 1 Each Tab PO 1 each DAILY [facility] Administration Nitroglycerin 0.4 mg 11/09/19 14:35 Nitroglycerin Sl Tabs 0.4 Mg Tab SUBLINGUAL Q5M PRN Chest Pain Nitroglycerin 1 inch 11/09/19 18:00 11/10/19 06:44 Nitroglycerin Oint 1 Inch/Gm Packet TOPICAL 1 inch Q6HR [facility] Administration Potassium Chloride 10 meq 11/10/19 09:00 11/10/19 08:05 Potassium Chloride Er 10 Meq Tab.Er.Prt PO 10 meq DAILY [facility] Administration Intake and Output 11/09/19 11/10/19 11/10/19 22:59 06:59 14:59 Intake Total 592.131 52.52 Output Total 325 575 Balance 267.131 -522.48 Intake: Intake, IV Titration 52.131 52.52 Amount Heparin Sod,Pork in 0.45% 52.131 52.52 NaCl 25,000 unit In 0.45 % NaCl 1 250ml.bag @ 12 UNITS/KG/HR 8.546 mls/hr IV .Q24H [facility] Rx#: [id number] Oral 540 Output: Urine 325 575 Other: # Voids 1 2 1 Weight 71.214 kg 71.4 kg 11/09/19 13:10 11/09/19 13:10 EKG Interpretations (text) EKG shows a sinus tachycardia with nonspecific ST-T wave changes in the inferior lateral leads Assessment and Plan Plan: Assessment and plan #1 unstable angina, we will maximize the patient's medications. #2 known history of coronary artery disease with prior bypass surgery and stent placements. Most recent cardiac catheterization was performed in March of this year which revealed severe triple-vessel coronary artery disease with a patent ramus intermediate, patent saphenous vein graft to the OM, patent MAE to the LAD and chronically occluded SVG to the RCA medical therapy advised at that time. #3 troponin abnormality, not consistent with acute coronary syndrome with no significant rise and fall pattern. #4 diabetes #5 hypertension #6 hyperlipidemia #7 sleep apnea #8 history of DVT #9 paroxysmal atrial fibrillation, patient had not been taking Eliquis at home and was recently started on xarelto #11 ischemic cardio myopathy #10 COPD Plan We will decrease patient's aspirin to 81 mg daily. Continue Lipitor 80 mg daily, Catapres 0.1 mg twice a day, Lasix 40 mg daily, we will discontinue the IV heparin and resume the patient on xarelto which was recently started in the office. Continue hydrochlorothiazide 12-1/2 mg daily, hydralazine 50 mg by mouth 3 times a day, Lopressor, discontinue Nitropaste and start the patient on a small dose of Imdur. From our perspective the patient may be able to be discharged home once cleared by primary and we'll make him a follow-up appointment in the office to see Dr. Ga. DNP note has been reviewed, I agree with a documented findings and plan of care. Patient was seen and examined.
[2019-11-10 11:52] LABS: Glucose,Whole Blood 153 mg/dL (75-99)
--- NOTE | 2019-11-10 15:36 | P.HPIM ---
History of Present Illness H&P Date: 11/10/19 Chief Complaint: chest pain This is a 54-year-old male patient of Dr. Montesinos and Dr. Ga with past medical history of coronary artery disease status post 6 vessel CABG 2006 with MAE to LAD, saphenous venous graft to the PDA, saphenous venous graft to the obtuse marginal one, radial artery to the obtuse marginal branch 2 and saphenous venous graft to the obtuse marginal 3 followed by heart catheterization with PCI and stent of the saphenous venous graft to the RCA in 2015 at which time he presented with non-ST elevated myocardial infarction. Most recent cardiac catheterization was performed in March of this year which revealed severe triple-vessel coronary artery disease with a patent ramus intermediate, patent SVG to the OM, patent MAE to the LAD, and occluded saphenous vein graft to the RCA which is chronic from before. Medical therapy was advised at that time. History of hypertension hypertensive cardiovascular disease with left ventricular hypertrophy, hyperlipidemia, ischemic cardiomyopathy, paroxysmal atrial fibrillation currently on Xarelto, diabetes mellitus type 2 with diabetic polyneuropathy, hyperlipidemia, asthma, obstructive sleep apnea on CPAP, chronic low back pain, chronic kidney disease stage II, DVT in the past. Patient was seen in the office 2 days ago was known to be in atrial fibrillation and atrial flutter. A troponin was ordered at that time and yesterday this came back as elevated and patient was instructed to come into the hospital for further evaluation. Patient was having chest pain at the time which was coming and going. He states he also had palpitations when the pain was present and felt like his heart was going to come out of his chest. Patient was also noncompliant with medications and was not taking a request. Patient was given samples for Xarelto 20 mg in the office Patient presented to [facility] emergency center. EKG showed sinus tachycardia with inferior lateral ST-T wave changes, similar changes to prior. Chest x-ray does not reveal any active cardiopulmonary disease. WBC 7.0, hemoglobin 15.7, platelet count 154 year sodium 136, potassium 4.4, BUN 21, creatinine 0.9. Blood sugar 482. Cholesterol 217, LDL 127, HDL 57, triglycerides 163. Troponins 0.05, 0.05, 0.05, 0.05, and 0.04. Patient has been admitted to the cardiac stepdown unit and cardiology consult. Review of Systems Constitutional: Denies chills, Denies fatigue, Denies fever, Denies lethargy, Denies poor appetite, Denies weakness Eyes: denies blurred vision, denies pain Ears, nose, mouth and throat: Denies dysphagia, Denies headache, Denies nasal congestion, Denies nasal discharge, Denies sore throat, Denies vertigo Cardiovascular: Reports chest pain, Reports dyspnea on exertion, Reports palpitations, Denies leg edema, Denies lightheadedness, Denies syncope Respiratory: Denies cough, Denies cough with sputum, Denies excessive sputum, Denies hemoptysis, Denies home oxygen, Denies respiratory infections, Denies wheezing Gastrointestinal: Denies abdominal pain, Denies diarrhea, Denies loss of appetite, Denies nausea, Denies vomiting Genitourinary: Denies dysuria, Denies urinary frequency, Denies urinary retention Musculoskeletal: Denies frequent falls, Denies gait dysfunction, Denies muscle weakness, Denies myalgias Integumentary: Denies pruritus, Denies rash, Denies wounds Neurological: Denies change in mentation, Denies change in speech, Denies numbness, Denies weakness Psychiatric: Denies anxiety, Denies depression Endocrine: Reports high blood sugars, Denies fatigue, Denies weight change Past Medical History Past Medical History: Asthma, Coronary Artery Disease (CAD), Chest Pain / Angina, Diabetes Mellitus, Deep Vein Thrombosis (DVT), Hyperlipidemia, Hypertension, Myocardial Infarction (AK), Sleep Apnea/CPAP/BIPAP Additional Past Medical History / Comment(s): Obstructive sleep apnea CPAP, bronchitis, IDDM type II, DVT L leg, cellulitis L leg 2012 cellulitis L Arm 2017, diabetic neuropathy affects feet and hands, chronic kidney disease stage II Last Myocardial Infarction Date:: 06/23/13 History of Any Multi-Drug Resistant Organisms: Acinetobacter (MDRO), MRSA Date of last positivie culture/infection: 08/2014 MDRO Source:: abdomen around navel Past Surgical History: Back Surgery, Coronary Bypass/CABG, Heart Catheterization, Heart Catheterization With Stent, Hernia Repair Additional Past Surgical History / Comment(s): Cardiac caths, PCI with stents (4total), 2006 CABG 6 vessels, spinal fusion L4-L5, fasciotomy left thigh, b ilateral inguinal hernia repairs, I&D L forearm with dehisence then compartment syndrome with fasciotomy Left forearm - June 2016 Past Anesthesia/Blood Transfusion Reactions: No Reported Reaction Date of Last Stent Placement:: 08/28/15 Past Psychological History: No Psychological Hx Reported Additional Psychological History / Comment(s): Pt is independent. Smoking Status: Never smoker Past Alcohol Use History: None Reported Additional Past Alcohol Use History / Comment(s): He denies any medical marijuana, marijuana, street drug use. He is and lives alone. He is on disability due to his diabetes and coronary artery disease. He has one son with no major medical problems. Past Drug Use History: None Reported - Past Family History Brother(s) Additional Family Medical History / Comment(s): Patient has 1 brother and 1 sister with no major medical problems. Mother Family Medical History: Congestive Heart Failure (CHF), Diabetes Mellitus Additional Family Medical History / Comment(s): Mother at the age of 84 from with history of chronic renal disease stage. Father Family Medical History: COPD, Coronary Artery Disease (CAD), Myocardial Infarction (AK) Additional Family Medical History / Comment(s): Father of a AK at the age of 60 yrs with history of COPD. Sister(s) Family Medical History: Rheumatoid Arthritis (RA) Additional Family Medical History / Comment(s): Patient has 1 sister with no major medical problems. Medications and Allergies Home Medications Medication Instructions Recorded Confirmed Type Multivitamins, Thera [Multivitamin 1 tab PO DAILY 12/13/16 11/09/19 History (formulary)] Aspirin 81 mg PO DAILY #30 chewable 04/14/19 11/09/19 Rx Atorvastatin [Lipitor] 80 mg PO HS #30 tab 04/14/19 11/09/19 Rx Isosorbide Mononitrate ER [Imdur] 30 mg PO DAILY #30 tab.er.24h 04/14/19 11/09/19 Rx Metoprolol Tartrate [Lopressor] 100 mg PO BID #60 tab 04/14/19 11/09/19 Rx Potassium Chloride ER [K-Dur 10] 10 meq PO DAILY #30 tab 04/14/19 11/09/19 Rx Furosemide [Lasix] 40 mg PO DAILY 11/09/19 11/09/19 History Gabapentin [Neurontin] 600 mg PO BID 11/09/19 11/09/19 History Insulin Aspart [NovoLOG Flexpen] See Protocol SQ AC-TID 11/09/19 11/09/19 History Insulin Glargine,Hum.rec.anlog 21 unit SQ HS 11/09/19 11/09/19 History [Basaglar Kwikpen U-100] Losartan/Hydrochlorothiazide 1 tab PO DAILY 11/09/19 11/09/19 History [Hyzaar 100-12.5 Tablet] Nitroglycerin Sl Tabs [Nitrostat] 0.4 mg SL Q5M PRN 11/09/19 11/09/19 History Rivaroxaban [Xarelto] 20 mg PO DAILY 11/09/19 11/09/19 History cloNIDine HCL [Catapres] 0.1 mg PO BID 11/09/19 11/09/19 History hydrALAZINE HCL [Apresoline] 50 mg PO BID 11/09/19 11/09/19 History metFORMIN HCL [Glucophage] 1,000 mg PO AC-BID 11/09/19 11/09/19 History Allergies Allergy/AdvReac Type Severity Reaction Status Date / Time adhesive tape Allergy Severe Rash/Hives Verified 11/09/19 16:02 vancomycin Allergy Mild Head Itches Verified 11/09/19 16:02 Physical Exam Vitals: Vital Signs Temp Pulse Pulse Resp BP BP Pulse Ox 11/10/19 11:45 97.6 F 57 L 20 109/61 97 11/10/19 08:00 97.4 F L 64 19 147/89 98 11/10/19 03:00 97.6 F 70 19 149/79 94 L 11/10/19 00:00 97.9 F 62 16 148/73 97 11/09/19 20:00 97.7 F 92 16 180/94 98 11/09/19 16:54 98.6 F 92 18 166/105 97 11/09/19 16:07 93 18 154/109 98 11/09/19 15:44 98.5 F 91 22 177/93 Intake and Output 11/09/19 11/10/19 11/10/19 22:59 06:59 14:59 Intake Total 592.131 52.52 240 Output Total 325 575 Balance 267.131 -522.48 240 Intake: Intake, IV Titration 52.131 52.52 Amount Heparin Sod,Pork in 0.45% 52.131 52.52 NaCl 25,000 unit In 0.45 % NaCl 1 250ml.bag @ 12 UNITS/KG/HR 8.546 mls/hr IV .Q24H [facility] Rx#: [id number] Oral 540 240 Output: Urine 325 575 Other: # Voids 1 2 1 Weight 71.214 kg 71.4 kg - Constitutional General appearance: average body habitus, cooperative, no disheveled, mild distress - EENT Eyes: EOMI, normal appearance ENT: no hard of hearing - Neck Neck: no lymphadenopathy - Respiratory Respiratory: bilateral: CTA, negative: rhonchi, wheezing - Cardiovascular Rhythm: regular Heart sounds: normal: S1, S2 Abnormal Heart Sounds: systolic murmur - Gastrointestinal General gastrointestinal: no distended, no hepatomegaly, normal bowel sounds, soft, no splenomegaly - Integumentary Integumentary: no cellulitis, no jaundiced, normal, no pale - Neurologic Neurologic: CNII-XII intact - Musculoskeletal Musculoskeletal: no right sided weakness, no left sided weakness - Psychiatric Psychiatric: A&O x's 3, appropriate affect, intact judgment & insight Results CBC & Chem 7: 11/09/19 13:10 11/09/19 13:10 Labs: Abnormal Lab Results - Last 24 Hours (Table) 11/09/19 11/09/19 11/09/19 Range/Units 16:12 16:51 18:56 APTT (22.0-30.0) sec POC Glucose (mg/dL) 259 H (75-99) mg/dL Troponin I 0.052 H* 0.056 H* (0.000-0.034) ng/mL Triglycerides (<150) mg/dL Cholesterol (<200) mg/dL LDL Cholesterol, Calc (0-99) mg/dL 11/09/19 11/09/19 11/10/19 Range/Units 20:19 20:30 01:08 APTT 33.9 H (22.0-30.0) sec POC Glucose (mg/dL) 192 H (75-99) mg/dL Troponin I 0.054 H* (0.000-0.034) ng/mL Triglycerides (<150) mg/dL Cholesterol (<200) mg/dL LDL Cholesterol, Calc (0-99) mg/dL 11/10/19 11/10/19 11/10/19 Range/Units 01:08 04:02 04:02 APTT 41.6 H (22.0-30.0) sec POC Glucose (mg/dL) (75-99) mg/dL Troponin I 0.049 H* (0.000-0.034) ng/mL Triglycerides 163 H (<150) mg/dL Cholesterol 217 H (<200) mg/dL LDL Cholesterol, Calc 127 H (0-99) mg/dL 11/10/19 11/10/19 11/10/19 Range/Units 07:24 09:48 11:51 APTT 55.2 H (22.0-30.0) sec POC Glucose (mg/dL) 210 H 153 H (75-99) mg/dL Troponin I (0.000-0.034) ng/mL Triglycerides (<150) mg/dL Cholesterol (<200) mg/dL LDL Cholesterol, Calc (0-99) mg/dL Thrombosis Risk Factor Assmnt - DVT/VTE Prophylaxis DVT/VTE Prophylaxis: Pharmacologic Prophylaxis ordered - Choose All That Apply Each Factor Represents 1 point: Age 41-60 years, Varicose veins Each Risk Factor Represents 3 Points: History of DVT/PE Thrombosis Risk Factor Assessment Total Risk Factor Score: 5 Thrombosis Risk Factor Assessment Level: High Risk Assessment and Plan Plan: 1. Elevated troponins, possible non-ST elevated myocardial infarction. Cardiology consult appreciated. Plan for medical management. Continue aspirin 81 mg daily, Lipitor 80 mg at bedtime, Imdur 30 mg daily, Lopressor 100 mg twice daily 2. Atrial flutter episode in the office, currently in sinus rhythm. 3. History of coronary artery disease. Continue as in #1. 4. Hypertension hypertensive cardiovascular disease. Continue clonidine 0.1 mg twice daily, Lasix 40 mg daily, hydralazine 50 mg 3 times daily, hydro chlorothiazide 12.5 mg daily, losartan 100 mg daily, Lopressor. 5. Paroxysmal atrial fibrillation. Patient is currently on Xarelto, Lopressor 100 mg twice daily. 6. Diabetes mellitus type 2 presenting with hyperglycemia, uncontrolled with hyperglycemia secondary to noncompliance. Continue Levemir 23 units at bedtime, 7 units with meals and NovoLog scale before meals and at bedtime. Metformin is currently on hold. 7. Diabetic polyneuropathy. Continue gabapentin 600 mg twice daily. 8. Hyperlipidemia. Continue atorvastatin. 9. Mild intermittent asthma. 10. Obstructive sleep apnea on CPAP. 11. Chronic kidney disease stage II. 12. Chronic low back pain. 13. DVT prophylaxis. Xarelto. 14. GI prophylaxis. Protonix oral. Patient will be admitted to the hospital for a minimum of 2 night stay. Discharge plan: home on Wednesday Impression and plan of care have been directed as dictated by the signing physician. Dipika Mendez nurse practitioner acting as scribe for signing physician.
[2019-11-10 17:00] LABS: Glucose,Whole Blood 168 mg/dL (75-99)
[2019-11-10] MEDS ORDERED: RIVAROXABAN 20 MG TAB PO SCH (17:30)
[2019-11-10 20:19] LABS: Glucose,Whole Blood 108 mg/dL (75-99)
[2019-11-10] MEDS: ATORVASTATIN 80 MG TAB PO SCH (20:27)
[2019-11-10] MEDS: INSULIN DETEMIR (LEVEMIR) 100 UNIT/ML SYR SQ SCH (21:34)
[2019-11-11] MEDS: MORPHINE SULFATE 2 MG/ML SYRINGE IVP PRN ×2 (01:22→08:16)
[2019-11-11 06:54] LABS: Glucose,Whole Blood 128 mg/dL (75-99)
[2019-11-11] MEDS: INSULIN ASPART (NovoLOG) 100 UNIT/ML VIAL SQ SCH ×4 (06:58→12:25)
[2019-11-11] MEDS ORDERED: PANTOPRAZOLE 40 MG TABLET PO SCH (07:30)
[2019-11-11] MEDS: GABAPENTIN 300 MG CAP PO SCH (08:15)
[2019-11-11] MEDS: ISOSORBIDE MONONITRATE ER 30 MG TAB.ER.24H PO SCH (08:15)
[2019-11-11] MEDS: POTASSIUM CHLORIDE ER 10 MEQ TAB.ER.PRT PO SCH (08:15)
[2019-11-11] MEDS: MULTIVITAMINS, THERA 1 EACH TAB PO SCH (08:15)
[2019-11-11] MEDS: hydroCHLOROthiazide 12.5 MG CAP PO SCH (08:15)
[2019-11-11] MEDS: FUROSEMIDE 40 MG TAB PO SCH (08:15)
[2019-11-11] MEDS: hydrALAZINE HCL 50 MG TAB PO SCH (08:15)
[2019-11-11] MEDS: METOPROLOL TARTRATE 50 MG TAB PO SCH (08:15)
[2019-11-11] MEDS: LOSARTAN 50 MG TAB PO SCH (08:16)
[2019-11-11] MEDS: cloNIDine HCL 0.1 MG TAB PO SCH (08:16)
[2019-11-11 08:46] VITALS: TEMP 98.5
[2019-11-11] MEDS ORDERED: ASPIRIN 81 MG PO SCH (09:00)
[2019-11-11] MEDS ORDERED: ISOSORBIDE MONONITRATE ER 30 MG TAB.ER.24H PO STA (09:38)
[2019-11-11 11:15] VITALS: BP 92/52; PULSE 60; RESP 17
[2019-11-11 11:45] LABS: Glucose,Whole Blood 170 mg/dL (75-99)
--- NOTE | 2019-11-11 11:49 | P.PN ---
Subjective This is a pleasant 54-year-old male past medical history significant for coronary artery disease status post bypass grafting, diabetes mellitus, hypertension, dyslipidemia, obstructive sleep apnea, chronic nicotine dependence, ischemic cardiomyopathy, COPD, paroxysmal atrial fibrillation and history of DVT. He follows in the office with Dr. Ga. He is seen and examined sitting up in bed in no acute distress. He continues to describe a tight sensation in the left precordial region that radiates at times to the midsternal region. The discomfort is not exacerbated by deep inspiration or palpation. Blood pressure 139/81 heart rate 66 afebrile maintaining oxygen saturation on room air. Currently maintained on aspirin 81 mg daily, atorvastatin 80 mg daily, clonidine 0.1 mg twice a day, Lasix 40 mg daily, hydralazine 50 mg 3 times a day, hydrochlorothiazide 12.5 mg daily, Imdur 30 mg daily, losartan 100 mg daily, Xarelto 20 mg daily and metoprolol 100 mg twice a day. Most recent echocardiogram obtained April 2019 revealed impaired LV systolic function with ejection fraction 40-45%, grade 3 diastolic dysfunction, moderate to severe mitral regurgitation and moderate pulmonary hypertension with RVSP of 59 mmHg. GENERAL: Well-appearing, well-nourished and in no acute distress. NECK: Supple without JVD or thyromegaly. LUNGS: Breath sounds clear to auscultation bilaterally. Respiration equal and unlabored. No wheezes, rales or rhonchi. HEART: Regular rate and rhythm with systolic ejection murmur at the base, no ru bs or gallops. S1 and S2 heard. EXTREMITIES: Normal range of motion, no edema. No clubbing or cyanosis. Peripheral pulses intact. ASSESSMENT Unstable angina Coronary artery disease Troponin elevation not consistent with acute coronary syndrome with no significant relative fall pattern Diabetes mellitus Hypertension Dyslipidemia Paroxysmal atrial fibrillation on long-term anticoagulation Ischemic cardiomyopathy Chronic systolic heart failure Pulmonary hypertension COPD Sleep apnea PLAN Increase Imdur to 60 mg daily. Increase activity and ambulation and assess for ongoing exertional chest pain. Follow up with Dr. Ga in the office. Nurse Practitioner note has been reviewed, I agree with a documented findings and plan of care. Patient was seen and examined. Objective - Vital Signs Vital signs: Vital Signs Temp 98.5 F 11/11/19 08:00 Pulse 66 11/11/19 08:00 Resp 18 09/19/20 08:00 BP 139/81 11/11/19 08:00 Pulse Ox 97 11/11/19 08:00 Intake & Output 11/10/19 11/11/19 11/11/19 18:59 06:59 18:59 Intake Total 476 540 236 Output Total 800 700 Balance -324 540 -464 Weight 72.4 kg Intake: Oral 476 540 236 Output: Urine 800 700 Other: # Voids 1 - Labs CBC & Chem 7: 11/09/19 13:10 11/09/19 13:10 Labs: Abnormal Lab Results - Last 24 Hours (Table) 11/10/19 11/10/19 11/10/19 Range/Units 11:51 16:59 20:09 POC Glucose (mg/dL) 153 H 168 H 108 H (75-99) mg/dL 11/11/19 Range/Units 06:53 POC Glucose (mg/dL) 128 H (75-99) mg/dL
[2019-11-12] MEDS ORDERED: ISOSORBIDE MONONITRATE ER 60 MG TAB.ER.24H PO SCH (09:00)
== END 2019-11-11 14:31 | disposition home or self-care (01) ==
LOC: EC 12:46 → 3SCARD 14:35
PROVIDERS: ADMIT Internal Medicine; ATTEND Internal Medicine
DX: I25.110 Atherosclerotic heart disease of native coronary artery with unstable angina pectoris (principal); R79.89 Other specified abnormal findings of blood chemistry; I25.710 Atherosclerosis of autologous vein coronary artery bypass graft(s) with unstable angina pectoris; I25.82 Chronic total occlusion of coronary artery; I13.0 Hypertensive heart and chronic kidney disease with heart failure and stage 1 through stage 4 chronic kidney disease, or unspecified chronic kidney disease; I50.22 Chronic systolic (congestive) heart failure; N18.2 Chronic kidney disease, stage 2 (mild); I48.92 Unspecified atrial flutter; J45.20 Mild intermittent asthma, uncomplicated; G47.33 Obstructive sleep apnea (adult) (pediatric); E78.5 Hyperlipidemia, unspecified; E11.22 Type 2 diabetes mellitus with diabetic chronic kidney disease; E11.42 Type 2 diabetes mellitus with diabetic polyneuropathy; E11.65 Type 2 diabetes mellitus with hyperglycemia; Z99.89 Dependence on other enabling machines and devices; F17.200 Nicotine dependence, unspecified, uncomplicated; J44.9 Chronic obstructive pulmonary disease, unspecified; I48.0 Paroxysmal atrial fibrillation; I25.5 Ischemic cardiomyopathy; I34.0 Nonrheumatic mitral (valve) insufficiency; I27.20 Pulmonary hypertension, unspecified; Z91.14 Patient's other noncompliance with medication regimen; G89.29 Other chronic pain; M54.5 Low back pain; I83.90 Asymptomatic varicose veins of unspecified lower extremity; I25.2 Old myocardial infarction; Z79.01 Long term (current) use of anticoagulants; Z79.82 Long term (current) use of aspirin; Z79.4 Long term (current) use of insulin; Z79.899 Other long term (current) drug therapy; Z88.1 Allergy status to other antibiotic agents; Z91.048 Other nonmedicinal substance allergy status; Z86.14 Personal history of Methicillin resistant Staphylococcus aureus infection; Z16.24 Resistance to multiple antibiotics; Z86.19 Personal history of other infectious and parasitic diseases; Z86.718 Personal history of other venous thrombosis and embolism; Z98.1 Arthrodesis status; Z95.5 Presence of coronary angioplasty implant and graft; Z98.890 Other specified postprocedural states; Z82.49 Family history of ischemic heart disease and other diseases of the circulatory system; Z83.3 Family history of diabetes mellitus; Z84.1 Family history of disorders of kidney and ureter; Z82.5 Family history of asthma and other chronic lower respiratory diseases; Z82.61 Family history of arthritis
CPT/HCPCS: 96376 ×4; 96366 ×3; 93005 ×3; 96365; 96375; 99291; 36415; 80061; 80053; 82009; 83735; 84484 ×2; 85025; 85610; 85730 ×2; 71046; G0378 ×3; J0360; J1644 ×2; J2270 ×3

== ENCOUNTER 2019-11-16 18:21 | Inpatient (IN) | payer MEDICARE ==
[2019-11-16] MEDS ORDERED: NITROGLYCERIN OINT 1 INCH/GM PACKET TOPICAL STA (18:49)
[2019-11-16] MEDS ORDERED: ASPIRIN 81 MG PO STA (18:49)
[2019-11-16] MEDS ORDERED: MORPHINE SULFATE 4 MG/ML SYRINGE IV STA (18:49)
--- NOTE | 2019-11-16 18:53 | ED ---
General Adult HPI - General Chief complaint: Chest Pain Stated complaint: chest pains Time Seen by Provider: 11/16/19 18:30 Source: patient, RN notes reviewed, old records reviewed Mode of arrival: wheelchair Limitations: no limitations - History of Present Illness Initial comments: This is a 54-year-old male with a past medical history significant for coronary artery disease post-bypass surgery and 4 stents. Patient states he was just released Wednesday from the hospital for having had chest pain. Patient states the pain is never left today the pain is gotten considerably worse so decided come into the emergency department. Patient states he's short of breath with exertion. Patient denies any radiation of the pain. Patient denies any diapho retic episodes. Patient denies any nausea vomiting diarrhea per patient denies any abdominal pain. Patient denies any lightheadedness dizziness or near syncopal episode. Patient denies headache patient denies numbness weakness. Patient denies any extremity pain or swelling patient denies any calf tenderness. - Related Data Home Medications Medication Instructions Recorded Confirmed Multivitamins, Thera [Multivitamin 1 tab PO DAILY 12/13/16 11/09/19 (formulary)] Furosemide [Lasix] 40 mg PO DAILY 11/09/19 11/09/19 Gabapentin [Neurontin] 600 mg PO BID 11/09/19 11/09/19 Insulin Aspart [NovoLOG Flexpen] See Protocol SQ AC-TID 11/09/19 11/09/19 Losartan/Hydrochlorothiazide 1 tab PO DAILY 11/09/19 11/09/19 [Hyzaar 100-12.5 Tablet] Nitroglycerin Sl Tabs [Nitrostat] 0.4 mg SL Q5M PRN 11/09/19 11/09/19 Rivaroxaban [Xarelto] 20 mg PO DAILY 11/09/19 11/09/19 cloNIDine HCL [Catapres] 0.1 mg PO BID 11/09/19 11/09/19 hydrALAZINE HCL [Apresoline] 50 mg PO BID 11/09/19 11/09/19 metFORMIN HCL [Glucophage] 1,000 mg PO AC-BID 11/09/19 11/09/19 Previous Rx's Medication Instructions Recorded Aspirin 81 mg PO DAILY #30 chewable 04/14/19 Atorvastatin [Lipitor] 80 mg PO HS #30 tab 04/14/19 Isosorbide Mononitrate ER [Imdur] 30 mg PO DAILY #30 tab.er.24h 04/14/19 Metoprolol Tartrate [Lopressor] 100 mg PO BID #60 tab 04/14/19 Potassium Chloride ER [K-Dur 10] 10 meq PO DAILY #30 tab 04/14/19 INSULIN ASPART (NovoLOG) [NovoLOG 0 unit SQ ACHS vial 11/11/19 (formulary)] INSULIN ASPART (NovoLOG) [NovoLOG 7 unit SQ AC-TID vial 11/11/19 (formulary)] Insulin Glargine,Hum.rec.anlog 23 unit SQ HS #0 11/11/19 [Basaglar Kwikpen U-100] Isosorbide Mononitrate ER [Imdur] 60 mg PO DAILY #30 tab.er.24h 11/11/19 Rivaroxaban [Xarelto] 20 mg PO W/SUPPER tab 11/11/19 Allergies Allergy/AdvReac Type Severity Reaction Status Date / Time adhesive tape Allergy Severe Rash/Hives Verified 11/16/19 18:34 vancomycin Allergy Mild Head Itches Verified 11/16/19 18:34 Review of Systems ROS Statement: Those systems with pertinent positive or pertinent negative responses have been documented in the HPI. ROS Other: All systems not noted in ROS Statement are negative. Past Medical History Past Medical History: Asthma, Coronary Artery Disease (CAD), Chest Pain / Angina, Diabetes Mellitus, Deep Vein Thrombosis (DVT), Hyperlipidemia, Hypertension, Myocardial Infarction (HI), Sleep Apnea/CPAP/BIPAP Additional Past Medical History / Comment(s): Obstructive sleep apnea CPAP, bronchitis, IDDM type II, DVT L leg, cellulitis L leg 2012 cellulitis L Arm 2017, diabetic neuropathy affects feet and hands, chronic kidney disease stage II Last Myocardial Infarction Date:: 06/23/13 History of Any Multi-Drug Resistant Organisms: Acinetobacter (MDRO), MRSA Date of last positivie culture/infection: 08/2014 MDRO Source:: abdomen around navel Past Surgical History: Back Surgery, Coronary Bypass/CABG, Heart Ca theterization, Heart Catheterization With Stent, Hernia Repair Additional Past Surgical History / Comment(s): Cardiac caths, PCI with stents (4total), 2006 CABG 6 vessels, spinal fusion L4-L5, fasciotomy left thigh, bilateral inguinal hernia repairs, I&D L forearm with dehisence then compartment syndrome with fasciotomy Left forearm - June 2016 Past Anesthesia/Blood Transfusion Reactions: No Reported Reaction Date of Last Stent Placement:: 08/28/15 Past Psychological History: No Psychological Hx Reported Smoking Status: Never smoker Past Alcohol Use History: None Reported Past Drug Use History: None Reported - Past Family History Brother(s) Additional Family Medical History / Comment(s): Patient has 1 brother and 1 sister with no major medical problems. Mother Family Medical History: Congestive Heart Failure (CHF), Diabetes Mellitus Additional Family Medical History / Comment(s): Mother at the age of 84 from with history of chronic renal disease stage. Father Family Medical History: COPD, Coronary Artery Disease (CAD), Myocardial Infarction (HI) Additional Family Medical History / Comment(s): Father of a HI at the age of 60 yrs with history of COPD. Sister(s) Family Medical History: Rheumatoid Arthritis (RA) Additional Family Medical History / Comment(s): Patient has 1 sister with no major medical problems. General Exam - General Exam Comments Initial Comments: GENERAL: Patient is well-developed and well-nourished. Patient is nontoxic and well- hydrated and is in mild distress. ENT: Neck is soft and supple. No significant lymphadenopathy is noted. Oropharynx is clear. Moist mucous membranes. Neck has full range of motion without eliciting any pain. EYES: The sclera were anicteric and conjunctiva were pink and moist. Extraocular movements were intact and pupils were equal round and reactive to light. Eyelids were unremarkable. PULMONARY: Unlabored respirations. Good breath sounds bilaterally. No audible rales rhonchi or wheezing was noted. CARDIOVASCULAR: There is a regular rate and rhythm without any murmurs gallops or rubs. ABDOMEN: Soft and nontender with normal bowel sounds. No palpable organomegaly was noted. There is no palpable pulsatile mass. SKIN: Skin is clear with no lesions or rashes and otherwise unremarkable. NEUROLOGIC: Patient is alert and oriented x3. Cranial nerves II through XII are grossly intact. Motor and sensory are also intact. Normal speech, volume and content. Symmetrical smile. MUSCULOSKELETAL: Normal extremities with adequate strength and full range of motion. LYMPHATICS: No significant lymphadenopathy is noted PSYCHIATRIC: Normal psychiatric evaluation. Limitations: no limitations Course Vital Signs 11/16/19 18:32 Temperature 98.3 F Pulse Rate 63 Respiratory 20 Rate Blood Pressure 165/85 O2 Sat by Pulse 100 Oximetry Medical Decision Making - Medical Decision Making EKG shows sinus rhythm at a rate of 66 bpm with occasional PAC MT interval is 148 QRSs 108 QT interval is 384 QTC is 402. Patient's EKG shows T-wave inversions in leads II, III, and F aVF as well as precordial lead V6. This EKG was compared to a previous EKG in no acute changes are noted - Lab Data Result diagrams: 11/16/19 19:11/16/19 19: Lab Results 11/16/19 11/16/19 11/16/19 Range/Units 19: 19: 19: WBC 6.5 (3.8-10.6) k/uL RBC 4.98 (4.30-5.90) m/uL Hgb 14.2 (13.0-17.5) gm/dL Hct 42.1 (39.0-53.0) % MCV 84.6 (80.0-100.0) fL MCH 28.4 (25.0-35.0) pg MCHC 33.6 (31.0-37.0) g/dL RDW 13.0 (11.5-15.5) % Plt Count 169 (150-450) k/uL Neutrophils % 70 % Lymphocytes % 16 % Monocytes % 8 % Eosinophils % 4 % Basophils % 1 % Neutrophils # 4.5 (1.3-7.7) k/uL Lymphocytes # 1.0 (1.0-4.8) k/uL Monocytes # 0.5 (0-1.0) k/uL Eosinophils # 0.3 (0-0.7) k/uL Basophils # 0.1 (0-0.2) k/uL PT 10.7 (9.0-12.0) sec INR 1.0 (<1.2) APTT 29.0 (22.0-30.0) sec Sodium 139 (137-145) mmol/L Potassium 3.5 (3.5-5.1) mmol/L Chloride 102 (98-107) mmol/L Carbon Dioxide 31 H (22-30) mmol/L Anion Gap 6 mmol/L BUN 36 H (9-20) mg/dL Creatinine 1.19 (0.66-1.25) mg/dL Est GFR (CKD-EPI)AfAm 79 (>60 ml/min/1.73 sqM) Est GFR (CKD-EPI)NonAf 68 (>60 ml/min/1.73 sqM) Glucose 184 H (74-99) mg/dL Calcium 9.6 (8.4-10.2) mg/dL Magnesium 1.7 (1.6-2.3) mg/dL Total Bilirubin 0.6 (0.2-1.3) mg/dL AST 41 (17-59) U/L ALT 34 (4-49) U/L Alkaline Phosphatase 84 (38-126) U/L Troponin I (0.000-0.034) ng/mL Total Protein 6.9 (6.3-8.2) g/dL Albumin 4.1 (3.5-5.0) g/dL 11/16/19 Range/Units 19:01 WBC (3.8-10.6) k/uL RBC (4.30-5.90) m/uL Hgb (13.0-17.5) gm/dL Hct (39.0-53.0) % MCV (80.0-100.0) fL MCH (25.0-35.0) pg MCHC (31.0-37.0) g/dL RDW (11.5-15.5) % Plt Count (150-450) k/uL Neutrophils % % Lymphocytes % % Monocytes % % Eosinophils % % Basophils % % Neutrophils # (1.3-7.7) k/uL Lymphocytes # (1.0-4.8) k/uL Monocytes # (0-1.0) k/uL Eosinophils # (0-0.7) k/uL Basophils # (0-0.2) k/uL PT (9.0-12.0) sec INR (<1.2) APTT (22.0-30.0) sec Sodium (137-145) mmol/L Potassium (3.5-5.1) mmol/L Chloride (98-107) mmol/L Carbon Dioxide (22-30) mmol/L Anion Gap mmol/L BUN (9-20) mg/dL Creatinine (0.66-1.25) mg/dL Est GFR (CKD-EPI)AfAm (>60 ml/min/1.73 sqM) Est GFR (CKD-EPI)NonAf (>60 ml/min/1.73 sqM) Glucose (74-99) mg/dL Calcium (8.4-10.2) mg/dL Magnesium (1.6-2.3) mg/dL Total Bilirubin (0.2-1.3) mg/dL AST (17-59) U/L ALT (4-49) U/L Alkaline Phosphatase (38-126) U/L Troponin I 0.063 H* (0.000-0.034) ng/mL Total Protein (6.3-8.2) g/dL Albumin (3.5-5.0) g/dL Disposition Clinical Impression: Unstable angina pectoris Disposition: ADMITTED IP TO THIS HOSP Referrals: Kelly Montesinos MD [Primary Care Provider] - 1-2 days Time of Disposition: 19:57
[2019-11-16 19:16] LABS: Basophils # (A) 0.1 k/uL (0-0.2); Basophils % (A) 1 %; Eosinophils # (A) 0.3 k/uL (0-0.7); Eosinophils % (A) 4 %; HCT 42.1 % (39.0-53.0); HGB 14.2 gm/dL (13.0-17.5); Lymphocytes % (A) 16 %; MCH 28.4 pg (25.0-35.0); MCHC 33.6 g/dL (31.0-37.0); MCV 84.6 fL (80.0-100.0); Mean Platelet Volume 8.1; Monocytes # (A) 0.5 k/uL (0-1.0); Monocytes % (A) 8 %; Neutrophils # (A) 4.5 k/uL (1.3-7.7); Neutrophils % (A) 70 %; Platelet Count 169 k/uL (150-450); RBC 4.98 m/uL (4.30-5.90); WBC 6.5 k/uL (3.8-10.6)
[2019-11-16 19:28] LABS: Albumin 4.1 g/dL (3.5-5.0); Calcium 9.6 mg/dL (8.4-10.2); Magnesium 1.7 mg/dL (1.6-2.3); Potassium 3.5 mmol/L (3.5-5.1); Total Bilirubin 0.6 mg/dL (0.2-1.3); Total Protein 6.9 g/dL (6.3-8.2)
[2019-11-16 19:32] LABS: Prothrombin Time 10.7 sec (9.0-12.0)
[2019-11-16] MEDS ORDERED: HEPARIN SODIUM,PORCINE 5,000 UNIT/ML 1 ML VIAL IV ONE (19:55)
[2019-11-16] MEDS ORDERED: NITROGLYCERIN SL TABS 0.4 MG TAB SUBLINGUAL PRN (19:58)
[2019-11-16] MEDS ORDERED: HEPARIN SOD,PORK IN 0.45% NACL 25,000 UNIT in 0.45% NACL 1 250ML.BAG IV SCH (20:00)
--- NOTE | 2019-11-16 20:00 | XR ---
EXAMINATION: XR chest 2V DATE AND TIME: 11/16/2019 7:06 PM CLINICAL INDICATION: PHH; Chest Pain TECHNIQUE: Departmental protocol COMPARISON: 11/09/2019 radiograph FINDINGS: Sternal sutures and mediastinal clips. The lungs are clear. The pleural spaces are negative. The cardiac silhouette is not enlarged. The remainder of the mediastinal silhouette is unremarkable. The skeletal structures and soft tissues are negative for acute findings. IMPRESSION: No acute radiographic process.
[2019-11-16] MEDS ORDERED: MORPHINE SULFATE 4 MG/ML SYRINGE IVP STA (20:18)
[2019-11-16 20:57] LABS: Glucose,Whole Blood 134 mg/dL (75-99)
[2019-11-16] MEDS: cloNIDine HCL 0.1 MG TAB PO SCH (21:21)
[2019-11-16] MEDS: ATORVASTATIN 80 MG TAB PO SCH (21:21)
[2019-11-16] MEDS: hydrALAZINE HCL 50 MG TAB PO SCH (21:21)
[2019-11-16] MEDS: INSULIN DETEMIR (LEVEMIR) 100 UNIT/ML SYR SQ SCH (21:21)
[2019-11-16] MEDS: METOPROLOL TARTRATE 50 MG TAB PO SCH (21:21)
[2019-11-16] MEDS: GABAPENTIN 300 MG CAP PO SCH (21:21)
[2019-11-16] MEDS: MORPHINE SULFATE 4 MG/ML SYRINGE IVP PRN (23:09)
[2019-11-16] MEDS: NITROGLYCERIN OINT 1 INCH/GM PACKET TOPICAL SCH (23:09)
[2019-11-17 05:56] LABS: Cholesterol 175 mg/dL (<200); HDL Cholesterol 45 mg/dL (40-60); LDL Cholesterol,Calculated 108 mg/dL (0-99); Triglycerides 108 mg/dL (<150)
[2019-11-17] MEDS: MORPHINE SULFATE 4 MG/ML SYRINGE IVP PRN ×4 (06:03→20:26)
[2019-11-17] MEDS: NITROGLYCERIN OINT 1 INCH/GM PACKET TOPICAL SCH (06:03)
[2019-11-17] MEDS: metFORMIN 500 MG TAB PO SCH ×2 (06:03→17:02)
[2019-11-17] MEDS: INSULIN ASPART (NovoLOG) 100 UNIT/ML VIAL SQ SCH ×7 (06:03→21:04)
[2019-11-17 06:24] LABS: Glucose,Whole Blood 130 mg/dL (75-99)
[2019-11-17] MEDS ORDERED: ASPIRIN 81 MG PO SCH (09:00)
[2019-11-17] MEDS ORDERED: LOSARTAN 50 MG TAB PO SCH (09:00)
[2019-11-17] MEDS ORDERED: ASPIRIN 325 MG TAB PO SCH (09:00)
[2019-11-17] MEDS ORDERED: lisinopriL 20 MG TAB PO SCH (09:00)
[2019-11-17] MEDS ORDERED: ISOSORBIDE MONONITRATE ER 60 MG TAB.ER.24H PO SCH (09:00)
[2019-11-17] MEDS: cloNIDine HCL 0.1 MG TAB PO SCH ×2 (09:13→20:25)
[2019-11-17] MEDS: GABAPENTIN 300 MG CAP PO SCH ×2 (09:13→20:25)
[2019-11-17] MEDS: MULTIVITAMINS, THERA 1 EACH TAB PO SCH (09:13)
[2019-11-17] MEDS: hydrALAZINE HCL 50 MG TAB PO SCH ×2 (09:13→20:25)
[2019-11-17] MEDS: POTASSIUM CHLORIDE ER 10 MEQ TAB.ER.PRT PO SCH (09:13)
[2019-11-17] MEDS: FUROSEMIDE 40 MG TAB PO SCH (09:14)
[2019-11-17] MEDS: METOPROLOL TARTRATE 50 MG TAB PO SCH ×2 (09:22→20:25)
[2019-11-17] MEDS: LOSARTAN-HCTZ 50-12.5 MG 1 EACH TAB PO SCH (09:22)
--- NOTE | 2019-11-17 11:39 | P.CRDCN ---
History of Present Illness Consult date: 11/17/19 Consult reason: chest pain Chief complaint: Chestpain History of present illness: This is a 54-year-old gentleman who follows regularly with Dr. Ga in the office. He has a known history of coronary artery disease with prior bypass surgery, diabetes, hypertension, hyperlipidemia, sleep apnea, prior DVT history, nicotine dependence, COPD, ischemic cardio myopathy, paroxysmal atrial fibrillation, most recent cardiac catheterization was performed in March of this year which revealed severe triple-vessel coronary artery disease with a patent ramus intermediate, patent SVG to the OM, patent MAE to the LAD and occluded saphenous vein graft to the RCA which was chronic from previously. At that time he was advised medical therapy. Patient also had an admission to the hospital on the of this month where he presented with chest discomfort. Was treated medically and discharged home. He presented again to the hospital with symptoms of chest discomfort. Patient states that he has had persistent chest pressure and heaviness which occur off and on, it did get somewhat better after he was here but he's back to having it with even minimal exertional activities. He also has atypical sharp pain that he complains of in his chest. On this occasion he states just walking to his mailbox he got exertionally very tight in his chest as well as short of breath. This chest x-ray on presentation here did not show any acute findings. EKG showed normal sinus rhythm with nonspecific ST-T wave changes. Blood pressure 116/60 with a heart rate is 6098% on room air. White blood cell count 6.5, hemoglobin 14.2, platelet count 169. Sodium 139, potassium 3.5, BUN 136 and creatinine 1.1, troponins 0.06, 0.07 and 0.07. His troponins on this recent admission on November 08 were 0.05 0.05 and 0.04. At the time of my examination this morning, patient was complaining of a persistent mild chest tightness. Past Medical History Past Medical History: Asthma, Coronary Artery Disease (CAD), Chest Pain / Angina, Diabetes Mellitus, Deep Vein Thrombosis (DVT), Hyperlipidemia, Hypertension, Myocardial Infarction (MT), Sleep Apnea/CPAP/BIPAP Additional Past Medical History / Comment(s): Obstructive sleep apnea CPAP, bronchitis, IDDM type II, DVT L leg, cellulitis L leg 2012 cellulitis L Arm 2017, diabetic neuropathy affects feet and hands, chronic kidney disease stage II Last Myocardial Infarction Date:: 06/23/13 History of Any Multi-Drug Resistant Organisms: Acinetobacter (MDRO), MRSA Date of last positivie culture/infection: 08/2014 MDRO Source:: abdomen around navel Past Surgical History: Back Surgery, Coronary Bypass/CABG, Heart Catheterization, Heart Catheterization With Stent, Hernia Repair Additional Past Surgical History / Comment(s): Cardiac caths, PCI with stents ( 4total), 2006 CABG 6 vessels, spinal fusion L4-L5, fasciotomy left thigh, bilateral inguinal hernia repairs, I&D L forearm with dehisence then compartment syndrome with fasciotomy Left forearm - June 2016 Past Anesthesia/Blood Transfusion Reactions: No Reported Reaction Date of Last Stent Placement:: 08/28/15 Past Psychological History: No Psychological Hx Reported Additional Psychological History / Comment(s): Pt is independent. Smoking Status: Never smoker Past Alcohol Use History: None Reported Additional Past Alcohol Use History / Comment(s): He denies any medical marijuana, marijuana, street drug use. He is and lives alone. He is on disability due to his diabetes and coronary artery disease. He has one son with no major medical problems. Past Drug Use History: None Reported - Past Family History Brother(s) Additional Family Medical History / Comment(s): Patient has 1 brother and 1 sister with no major medical problems. Mother Family Medical History: Congestive Heart Failure (CHF), Diabetes Mellitus Additional Family Medical History / Comment(s): Mother at the age of 84 from with history of chronic renal disease stage. Father Family Medical History: COPD, Coronary Artery Disease (CAD), Myocardial Infarction (MT) Additional Family Medical History / Comment(s): Father of a MT at the age o f 60 yrs with history of COPD. Sister(s) Family Medical History: Rheumatoid Arthritis (RA) Additional Family Medical History / Comment(s): Patient has 1 sister with no major medical problems. Medications and Allergies Home Medications Medication Instructions Recorded Confirmed Type Multivitamins, Thera [Multivitamin 1 tab PO DAILY 12/13/16 11/16/19 History (formulary)] Aspirin 81 mg PO DAILY #30 chewable 04/14/19 11/16/19 Rx Atorvastatin [Lipitor] 80 mg PO HS #30 tab 04/14/19 11/16/19 Rx Metoprolol Tartrate [Lopressor] 100 mg PO BID #60 tab 04/14/19 11/16/19 Rx Potassium Chloride ER [K-Dur 10] 10 meq PO DAILY #30 tab 04/14/19 11/16/19 Rx Furosemide [Lasix] 40 mg PO DAILY 11/09/19 11/16/19 History Gabapentin [Neurontin] 600 mg PO BID 11/09/19 11/16/19 History Losartan/Hydrochlorothiazide 1 tab PO DAILY 11/09/19 11/16/19 History [Hyzaar 100-12.5 Tablet] Nitroglycerin Sl Tabs [Nitrostat] 0.4 mg SL Q5M PRN 11/09/19 11/16/19 History cloNIDine HCL [Catapres] 0.1 mg PO BID 11/09/19 11/16/19 History hydrALAZINE HCL [Apresoline] 50 mg PO BID 11/09/19 11/16/19 History metFORMIN HCL [Glucophage] 1,000 mg PO AC-BID 11/09/19 11/16/19 History INSULIN ASPART (NovoLOG) [NovoLOG 7 unit SQ AC-TID vial 11/11/19 11/16/19 Rx (formulary)] Insulin Glargine,Hum.rec.anlog 23 unit SQ HS #0 11/11/19 11/16/19 Rx [Basaglar Kwikpen U-100] Isosorbide Mononitrate ER [Imdur] 60 mg PO DAILY #30 tab.er.24h 11/11/19 11/16/19 Rx Rivaroxaban [Xarelto] 20 mg PO W/SUPPER tab 11/11/19 11/16/19 Rx lisinopriL [Zestril] 40 mg PO DAILY 11/16/19 11/16/19 History Allergies Allergy/AdvReac Type Severity Reaction Status Date / Time adhesive tape Allergy Severe Rash/Hives Verified 11/16/19 20:41 vancomycin Allergy Mild Head Itches Verified 11/16/19 20:41 Physical Exam Vitals: Vital Signs Temp Pulse Pulse Resp BP BP Pulse Ox 11/17/19 08:00 98.1 F 62 17 114/68 95 11/17/19 03:00 98.2 F 63 16 116/64 98 11/16/19 23:00 98.5 F 70 16 125/76 97 11/16/19 21:40 18 11/16/19 20:38 98.3 F 63 20 165/85 100 11/16/19 20:35 98.4 F 61 16 148/88 11/16/19 20:30 61 156/98 99 11/16/19 20:00 62 167/98 98 11/16/19 19:30 61 161/83 98 11/16/19 19:08 100 11/16/19 18:32 98.3 F 63 20 165/85 100 Intake and Output 11/16/19 11/17/19 11/17/19 22:59 06:59 14:59 Other: Weight 71.668 kg PHYSICAL EXAMINATION: GENERAL: 54-year-old gentleman in no acute distress at the time of my examination HEENT: Head is atraumatic, normocephalic. Pupils equal, round. Sclera anicteric. Conjunctiva are clear. Mucous membranes of the mouth are moist. Neck is supple. There is no elevated jugular venous pressure. No carotid bruit is heard. HEART EXAMINATION: R S1 and S2 1 systolic ejection murmur is heard CHEST EXAMINATION: Lungs are clear to auscultation and precussion. No chest wall tenderness is noted on palpation or with deep breathing. ABDOMEN: Soft, nontender. Bowel sounds are heard. No organomegaly noted. EXTREMITIES: 2+ peripheral pulses with no evidence of peripheral edema and no calf tenderness noted. NEUROLOGIC patient is awake, alert and oriented 3 . . Results 11/16/19 19:01 11/16/19 19:01 Cardiac Enzymes 11/16/19 11/16/19 11/16/19 Range/Units 19:01 19:01 22:09 AST 41 (17-59) U/L Troponin I 0.063 H* 0.073 H* (0.000-0.034) ng/mL 11/17/19 Range/Units 00:55 AST (17-59) U/L Troponin I 0.076 H* (0.000-0.034) ng/mL Coagulation 11/16/19 Range/Units 19:01 PT 10.7 (9.0-12.0) sec APTT 29.0 (22.0-30.0) sec Lipids 11/16/19 Range/Units 19:01 Triglycerides 108 (<150) mg/dL Cholesterol 175 (<200) mg/dL HDL Cholesterol 45 (40-60) mg/dL CBC 11/16/19 Range/Units 19:01 WBC 6.5 (3.8-10.6) k/uL RBC 4.98 (4.30-5.90) m/uL Hgb 14.2 (13.0-17.5) gm/dL Hct 42.1 (39.0-53.0) % Plt Count 169 (150-450) k/uL Comprehensive Metabolic Panel 11/16/19 Range/Units 19:01 Sodium 139 (137-145) mmol/L Potassium 3.5 (3.5-5.1) mmol/L Chloride 102 (98-107) mmol/L Carbon Dioxide 31 H (22-30) mmol/L BUN 36 H (9-20) mg/dL Creatinine 1.19 (0.66-1.25) mg/dL Glucose 184 H (74-99) mg/dL Calcium 9.6 (8.4-10.2) mg/dL AST 41 (17-59) U/L ALT 34 (4-49) U/L Alkaline Phosphatase 84 (38-126) U/L Total Protein 6.9 (6.3-8.2) g/dL Albumin 4.1 (3.5-5.0) g/dL Current Medications Generic Name Dose Route Start Last Admin Trade Name Freq PRN Reason Stop Dose Admin Aspirin 81 mg 11/17/19 09:00 11/17/19 09:13 Aspirin 81 Mg PO 81 mg DAILY INDERJIT Administration Atorvastatin Calcium 80 mg 11/16/19 21:00 11/16/19 21:21 Atorvastatin 80 Mg Tab PO 80 mg HS INDERJIT Administration Clonidine 0.1 mg 11/16/19 21:00 11/17/19 09:13 Clonidine Hcl 0.1 Mg Tab PO 0.1 mg BID INDERJIT Administration Furosemide 40 mg 11/17/19 09:00 11/17/19 09:14 Furosemide 40 Mg Tab PO 40 mg DAILY INDERJIT Administration Gabapentin 600 mg 11/16/19 21:00 11/17/19 09:13 Gabapentin 300 Mg Cap PO 600 mg BID INDERJIT Administration HCTZ/Losartan Potassium 1 each 11/17/19 09:00 11/17/19 09:22 Losartan-Hctz 50-12.5 Mg 1 Each Tab PO 1 each DAILY INDERJIT Administration Hydralazine HCl 50 mg 11/16/19 21:00 11/17/19 09:13 Hydralazine Hcl 50 Mg Tab PO 50 mg BID INDERJIT Administration Insulin Aspart 7 unit 11/17/19 07:30 11/17/19 06:03 Insulin Aspart (Novolog) 100 Unit/Ml Vial SQ Not Given AC-TID INDERJIT Insulin Aspart 0 unit 11/17/19 07:30 11/17/19 06:35 Insulin Aspart (Novolog) 100 Unit/Ml Vial SQ Not Given ACHS [facility] Protocol Insulin Detemir 23 unit 11/16/19 21:00 11/16/19 21:21 Insulin Detemir (Levemir) 100 Unit/Ml Syr SQ 23 unit HS INDERJIT Administration Isosorbide Mononitrate 60 mg 11/17/19 09:00 11/17/19 09:13 Isosorbide Mononitrate Er 60 Mg Tab.Er.24h PO 60 mg DAILY INDERJIT Administration Metformin HCl 1,000 mg 11/17/19 07:30 11/17/19 06:03 Metformin 500 Mg Tab PO Not Given AC-BID [facility] Metoprolol Tartrate 100 mg 11/16/19 21:00 11/17/19 09:22 Metoprolol Tartrate 50 Mg Tab PO 100 mg BID [facility] Administration Morphine Sulfate 4 mg 11/16/19 20:58 11/17/19 10:31 Morphine Sulfate 4 Mg/Ml Syringe IVP 4 mg Q4HR PRN Administration Pain Multivitamins 1 each 11/17/19 09:00 11/17/19 09:13 Multivitamins, Thera 1 Each Tab PO 1 each DAILY INDERJIT Administration Nitroglycerin 0.4 mg 11/16/19 19:58 Nitroglycerin Sl Tabs 0.4 Mg Tab SUBLINGUAL Q5M PRN Chest Pain Nitroglycerin 1 inch 11/17/19 00:00 11/17/19 06:03 Nitroglycerin Oint 1 Inch/Gm Packet TOPICAL 1 inch Q6HR INDERJIT Administration Potassium Chloride 10 meq 11/17/19 09:00 11/17/19 09:13 Potassium Chloride Er 10 Meq Tab.Er.Prt PO 10 meq DAILY INDERJIT Administration Rivaroxaban 20 mg 11/17/19 17:30 Rivaroxaban 20 Mg Tab PO W/SUPPER INDERJIT Intake and Output 11/16/19 11/17/1911/16/20 22:59 06:59 14:59 Other: Weight 71.668 kg 11/16/19 19:01 11/16/19 19:01 EKG Interpretations (text) EKG shows normal sinus rhythm with nonspecific ST-T wave changes Assessment and Plan Plan: Assessment and plan #1 symptoms of chest tightness, with also some atypical sharp chest pains. Cannot completely rule out acute coronary syndrome #2 known history of coronary artery disease with prior bypass surgery and stent placements. Most recent cardiac catheterization was performed in March of this year which revealed severe triple-vessel coronary artery disease with a patent ramus intermediate, patent saphenous vein graft to the OM, patent MAE to the LAD and chronically occluded SVG to the RCA medical therapy advised at that time. #3 troponin abnormality, not consistent with acute coronary syndrome with no significant rise and fall pattern. #4 diabetes #5 hypertension #6 hyperlipidemia #7 sleep apnea #8 history of DVT #9 paroxysmal atrial fibrillation, patient had not been taking Eliquis at home and was recently started on xarelto #11 ischemic cardio myopathy #10 COPD Plan We will continue current therapy which includes a baby aspirin, Lipitor 80, heparin, Imdur 60, losartan, metoprolol 100 mg twice a day, Xarelto 20 mg daily. We'll discuss further with Dr. Ambrose regarding whether or not the patient should undergo repeat cardiac catheterization, if we will continue maximal medical therapy, we'll consider discontinuing the aspirin and keeping the patient on Plavix as well as anticoagulant and add Ranexa. Further recommendations will follow. DNP note has been reviewed, I agree with a documented findings and plan of care. Patient was seen and examined.
[2019-11-17 11:46] LABS: Glucose,Whole Blood 127 mg/dL (75-99)
--- NOTE | 2019-11-17 12:03 | P.HPIM ---
History of Present Illness H&P Date: 11/17/19 Chief Complaint: chest pain This is a 54-year-old male patient of Dr. Montesinos and Dr. Ga with past medical history of coronary artery disease status post 6 vessel CABG 2006 with MAE to LAD, saphenous venous graft to the PDA, saphenous venous graft to the obtuse marginal one, radial artery to the obtuse marginal branch 2 and saphenous venous graft to the obtuse marginal 3 followed by heart catheterization with PCI and stent of the saphenous venous graft to the RCA in 2015 at which time he presented with non-ST elevated myocardial infarction. Most recent cardiac catheterization was performed in March of this year which revealed severe triple-vessel coronary artery disease with a patent ramus intermediate, patent SVG to the OM, patent MAE to the LAD, and occluded saphenous vein graft to the RCA which is chronic from before. Medical therapy was advised at that time. History of hypertension hypertensive cardiovascular disease with left ventricular hypertrophy, hyperlipidemia, ischemic cardiomyopathy, paroxysmal atrial fibrillation currently on Xarelto, diabetes mellitus type 2 with diabetic polyneuropathy, hyperlipidemia, asthma, obstructive sleep apnea on CPAP, chronic low back pain, chronic kidney disease stage II, DVT in the past. Patient has had several admissions for chest pain. He now presents with chest discomfort/heaviness been on and off that occurs with minimal exertion along with shortness of breath. Chest x-ray on presentation here did not show any acute findings. EKG showed normal sinus rhythm with nonspecific ST-T wave changes. Blood pressure 116/60 with a heart rate is 6098% on room air. White blood cell count 6.5, hemoglobin 14.2, platelet count 169. Sodium 139, potassium 3.5, BUN 136 and creatinine 1.1, troponins 0.06, 0.07 and 0.07. Patient has been admitted to the cardiac stepdown unit and cardiology consult requested. Review of Systems Constitutional: Denies chills, Denies fatigue, Denies fever, Denies lethargy, Denies poor appetite, Denies weakness Eyes: denies blurred vision, denies pain Ears, nose, mouth and throat: Denies dysphagia, Denies headache, Denies nasal congestion, Denies nasal discharge, Denies sore throat, Denies vertigo Cardiovascular: Reports chest pain, Reports dyspnea on exertion, Reports palpitations, Denies leg edema, Denies lightheadedness, Denies syncope Respiratory: Denies cough, Denies cough with sputum, Denies excessive sputum, Denies hemoptysis, Denies home oxygen, Denies respiratory infections, Denies wheezing Gastrointestinal: Denies abdominal pain, Denies diarrhea, Denies loss of appetite, Denies nausea, Denies vomiting Genitourinary: Denies dysuria, Denies urinary frequency, Denies urinary retention Musculoskeletal: Denies frequent falls, Denies gait dysfunction, Denies muscle weakness, Denies myalgias Integumentary: Denies pruritus, Denies rash, Denies wounds Neurological: Denies change in mentation, Denies change in speech, Denies numbness, Denies weakness Psychiatric: Denies anxiety, Denies depression Endocrine: Reports high blood sugars, Denies fatigue, Denies weight change Past Medical History Past Medical History: Asthma, Coronary Artery Disease (CAD), Chest Pain / Angina, Diabetes Mellitus, Deep Vein Thrombosis (DVT), Hyperlipidemia, Hypertension, Myocardial Infarction (ID), Sleep Apnea/CPAP/BIPAP Additional Past Medical History / Comment(s): Obstructive sleep apnea CPAP, bronchitis, IDDM type II, DVT L leg, cellulitis L leg 2012 cellulitis L Arm 2017, diabetic neuropathy affects feet and hands, chronic kidney disease stage II Last Myocardial Infarction Date:: 06/23/13 History of Any Multi-Drug Resistant Organisms: Acinetobacter (MDRO), MRSA Date of last positivie culture/infection: 08/2014 MDRO Source:: abdomen around navel Past Surgical History: Back Surgery, Coronary Bypass/CABG, Heart Catheterization, Heart Catheterization With Stent, Hernia Repair Additional Past Surgical History / Comment(s): Cardiac caths, PCI with stents (4total), 2006 CABG 6 vessels, spinal fusion L4-L5, fasciotomy left thigh, bilateral inguinal hernia repairs, I&D L forearm with dehisence then compartment syndrome with fasciotomy Left forearm - June 2016 Past Anesthesia/Blood Transfusion Reactions: No Reported Reaction Date of Last Stent Placement:: 08/28/15 Past Psychological History: No Psychological Hx Reported Additional Psychological History / Comment(s): Pt is independent. Smoking Status: Never smoker Past Alcohol Use History: None Reported Additional Past Alcohol Use History / Comment(s): He denies any medical marijuana, marijuana, street drug use. He is and lives alone. He is on disability due to his diabetes and coronary artery disease. He has one son with no major medical problems. Past Drug Use History: None Reported - Past Family History Brother(s) Additional Family Medical History / Comment(s): Patient has 1 brother and 1 sister with no major medical problems. Mother Family Medical History: Congestive Heart Failure (CHF), Diabetes Mellitus Additional Family Medical History / Comment(s): Mother at the age of 84 from with history of chronic renal disease stage. Father Family Medical History: COPD, Coronary Artery Disease (CAD), Myocardial Infarction (ID) Additional Family Medical History / Comment(s): Father of a ID at the age of 60 yrs with history of COPD. Sister(s) Family Medical History: Rheumatoid Arthritis (RA) Additional Family Medical History / Comment(s): Patient has 1 sister with no major medical problems. Medications and Allergies Home Medications Medication Instructions Recorded Confirmed Type Multivitamins, Thera [Multivitamin 1 tab PO DAILY 12/13/16 11/16/19 History (formulary)] Aspirin 81 mg PO DAILY #30 chewable 04/14/19 11/16/19 Rx Atorvastatin [Lipitor] 80 mg PO HS #30 tab 04/14/19 11/16/19 Rx Metoprolol Tartrate [Lopressor] 100 mg PO BID #60 tab 04/14/19 11/16/19 Rx Potassium Chloride ER [K-Dur 10] 10 meq PO DAILY #30 tab 04/14/19 11/16/19 Rx Furosemide [Lasix] 40 mg PO DAILY 11/09/19 11/16/19 History Gabapentin [Neurontin] 600 mg PO BID 11/09/19 11/16/19 History Losartan/Hydrochlorothiazide 1 tab PO DAILY 11/09/19 11/16/19 History [Hyzaar 100-12.5 Tablet] Nitroglycerin Sl Tabs [Nitrostat] 0.4 mg SL Q5M PRN 11/09/19 11/16/19 History cloNIDine HCL [Catapres] 0.1 mg PO BID 11/09/19 11/16/19 History hydrALAZINE HCL [Apresoline] 50 mg PO BID 11/09/19 11/16/19 History metFORMIN HCL [Glucophage] 1,000 mg PO AC-BID 11/09/19 11/16/19 History INSULIN ASPART (NovoLOG) [NovoLOG 7 unit SQ AC-TID vial 11/11/19 11/16/19 Rx (formulary)] Insulin Glargine,Hum.rec.anlog 23 unit SQ HS #0 11/11/19 11/16/19 Rx [Basaglar Gerberpen U-100] Isosorbide Mononitrate ER [Imdur] 60 mg PO DAILY #30 tab.er.24h 11/11/19 Rx Rivaroxaban [Xarelto] 20 mg PO W/SUPPER tab 11/11/19 11/16/19 Rx lisinopriL [Zestril] 40 mg PO DAILY 11/16/19 11/16/19 History Allergies Allergy/AdvReac Type Severity Reaction Status Date / Time adhesive tape Allergy Severe Rash/Hives Verified 11/16/19 20:41 vancomycin Allergy Mild Head Itches Verified 11/16/19 20:41 Physical Exam Vitals: Vital Signs Temp Pulse Pulse Resp BP BP Pulse Ox 11/17/19 08:00 98.1 F 62 17 114/68 95 11/17/19 03:00 98.2 F 63 16 116/64 98 11/16/19 23:00 98.5 F 70 16 125/76 97 11/16/19 21:40 18 11/16/19 20:38 98.3 F 63 20 165/85 100 11/16/19 20:35 98.4 F 61 16 148/88 11/16/19 20:30 61 156/98 99 11/16/19 20:00 62 167/98 98 11/16/19 19:30 61 161/83 98 11/16/19 19:08 100 11/16/19 18:32 98.3 F 63 20 165/85 100 Intake and Output 11/16/19 11/17/19 11/17/19 22:59 06:59 14:59 Other: Weight 71.668 kg - Constitutional General appearance: average body habitus, cooperative, no disheveled, no distress - EENT Eyes: EOMI, normal appearance ENT: no hard of hearing - Neck Neck: no lymphadenopathy - Respiratory Respiratory: bilateral: CTA, negative: rhonchi, wheezing - Cardiovascular Rhythm: regular Heart sounds: normal: S1, S2 Abnormal Heart Sounds: systolic murmur - Gastrointestinal General gastrointestinal: no distended, no hepatomegaly, normal bowel sounds, soft, no splenomegaly - Integumentary Integumentary: no cellulitis, no jaundiced, normal, no pale - Neurologic Neurologic: CNII-XII intact - Musculoskeletal Musculoskeletal: no right sided weakness, no left sided weakness - Psychiatric Psychiatric: A&O x's 3, appropriate affect, intact judgment & insight Results CBC & Chem 7: 11/16/19 19:01 11/16/19 19:01 Labs: Abnormal Lab Results - Last 24 Hours (Table) 11/16/19 11/16/19 11/16/19 Range/Units 19:01 19:01 19:01 Carbon Dioxide 31 H (22-30) mmol/L BUN 36 H (9-20) mg/dL Glucose 184 H (74-99) mg/dL POC Glucose (mg/dL) (75-99) mg/dL Troponin I 0.063 H* (0.000-0.034) ng/mL LDL Cholesterol, Calc 108 H (0-99) mg/dL 11/16/19 11/16/19 11/17/19 Range/Units 20:55 22:09 00:55 Carbon Dioxide (22-30) mmol/L BUN (9-20) mg/dL Glucose (74-99) mg/dL POC Glucose (mg/dL) 134 H (75-99) mg/dL Troponin I 0.073 H* 0.076 H* (0.000-0.034) ng/mL LDL Cholesterol, Calc (0-99) mg/dL 11/17/19 Range/Units 06:22 Carbon Dioxide (22-30) mmol/L BUN (9-20) mg/dL Glucose (74-99) mg/dL POC Glucose (mg/dL) 130 H (75-99) mg/dL Troponin I (0.000-0.034) ng/mL LDL Cholesterol, Calc (0-99) mg/dL Thrombosis Risk Factor Assmnt - DVT/VTE Prophylaxis DVT/VTE Prophylaxis: Pharmacologic Prophylaxis ordered - Choose All That Apply Each Factor Represents 1 point: Age 41-60 years, Medical pt on bed rest, Swollen legs (current) Other Risk Factors: No Other congenital or acquired thrombophilia - If yes, enter type in comment: No Thrombosis Risk Factor Assessment Total Risk Factor Score: 3 Thrombosis Risk Factor Assessment Level: Moderate Risk Assessment and Plan Plan: 1. Chest pain with mildly elevated troponins. Cardiology consult appreciated. Continue aspirin 81 mg daily, Lipitor 80 mg at bedtime, Imdur 60 mg daily, Lopressor 100 mg twice daily 3. History of coronary artery disease. Continue as in #1. 4. Hypertension hypertensive cardiovascular disease. Continue clonidine 0.1 mg twice daily, Lasix 40 mg daily, hydralazine 50 mg 3 times daily, hydrochlorothiazide 12.5 mg daily, losartan 100 mg daily, Lopressor. 5. Paroxysmal atrial fibrillation. Patient is currently on Xarelto, Lopressor 100 mg twice daily. 6. Diabetes mellitus type 2. Continue Levemir 23 units at bedtime, 7 units with meals and NovoLog scale before meals, Metformin 1000 mg twice daily. 7. Diabetic polyneuropathy. Continue gabapentin 600 mg twice daily. 8. Hyperlipidemia. Continue atorvastatin. 9. Mild intermittent asthma. 10. Obstructive sleep apnea on CPAP. 11. Chronic kidney disease stage II. 12. Chronic low back pain. 13. DVT prophylaxis. Xarelto. 14. GI prophylaxis. Protonix oral. Patient will be admitted to the hospital for a minimum of 2 night stay. Discharge plan: home Impression and plan of care have been directed as dictated by the signing physician. Dipika Mendez nurse practitioner acting as scribe for signing physician.
[2019-11-17 16:43] LABS: Glucose,Whole Blood 229 mg/dL (75-99)
[2019-11-17] MEDS: RIVAROXABAN 15 MG TAB PO SCH (17:03)
[2019-11-17] MEDS: RANOLAZINE 500 MG TAB.ER.12H PO SCH ×2 (17:19→21:04)
[2019-11-17] MEDS: CLOPIDOGREL 75 MG TAB PO SCH (17:19)
[2019-11-17] MEDS ORDERED: RIVAROXABAN 20 MG TAB PO SCH (17:30)
[2019-11-17 19:51] LABS: Glucose,Whole Blood 127 mg/dL (75-99)
[2019-11-17] MEDS: INSULIN DETEMIR (LEVEMIR) 100 UNIT/ML SYR SQ SCH (20:25)
[2019-11-17] MEDS: ATORVASTATIN 80 MG TAB PO SCH (20:25)
[2019-11-18] MEDS: MORPHINE SULFATE 4 MG/ML SYRINGE IVP PRN ×2 (03:35→07:46)
[2019-11-18 06:23] LABS: Glucose,Whole Blood 200 mg/dL (75-99)
[2019-11-18] MEDS: metFORMIN 500 MG TAB PO SCH (06:26)
[2019-11-18] MEDS: INSULIN ASPART (NovoLOG) 100 UNIT/ML VIAL SQ SCH ×7 (06:26→20:07)
[2019-11-18] MEDS: GABAPENTIN 300 MG CAP PO SCH ×2 (07:44→20:07)
[2019-11-18] MEDS: hydrALAZINE HCL 50 MG TAB PO SCH ×2 (07:44→20:07)
[2019-11-18] MEDS: FUROSEMIDE 40 MG TAB PO SCH (07:44)
[2019-11-18] MEDS: ISOSORBIDE MONONITRATE ER 60 MG TAB.ER.24H PO SCH (07:44)
[2019-11-18] MEDS: cloNIDine HCL 0.1 MG TAB PO SCH ×2 (07:44→20:07)
[2019-11-18] MEDS: CLOPIDOGREL 75 MG TAB PO SCH (07:44)
[2019-11-18] MEDS: MULTIVITAMINS, THERA 1 EACH TAB PO SCH (07:45)
[2019-11-18] MEDS: RANOLAZINE 500 MG TAB.ER.12H PO SCH ×2 (07:45→20:07)
[2019-11-18] MEDS: LOSARTAN-HCTZ 50-12.5 MG 1 EACH TAB PO SCH (07:45)
[2019-11-18] MEDS: POTASSIUM CHLORIDE ER 10 MEQ TAB.ER.PRT PO SCH (07:45)
[2019-11-18] MEDS: METOPROLOL TARTRATE 50 MG TAB PO SCH ×2 (07:45→20:07)
[2019-11-18 07:55] LABS: HCT 36.9 % (39.0-53.0); HGB 12.6 gm/dL (13.0-17.5); MCH 28.8 pg (25.0-35.0); MCHC 34.3 g/dL (31.0-37.0); Mean Platelet Volume 8.3; Platelet Count 152 k/uL (150-450); RBC 4.39 m/uL (4.30-5.90); WBC 6.3 k/uL (3.8-10.6)
[2019-11-18 09:06] LABS: Albumin 3.2 g/dL (3.5-5.0); Calcium 8.7 mg/dL (8.4-10.2); Magnesium 1.5 mg/dL (1.6-2.3); Potassium 3.6 mmol/L (3.5-5.1); Total Bilirubin 0.6 mg/dL (0.2-1.3); Total Protein 5.6 g/dL (6.3-8.2)
[2019-11-18] MEDS ORDERED: Magnesium Replacement Protocol 1 EACH MISC MISCELLANE PRN (10:40)
--- NOTE | 2019-11-18 10:42 | P.PN ---
Subjective Progress Note Date: 11/18/19 Principal diagnosis: Chest pain This is a 54-year-old gentleman with coronary artery disease and prior coronary artery bypass grafting who underwent a heart catheterization about a year ago which showed severe triple-vessel CAD with severe disease involving a medium caliber left circumflex which was treated medically. He was admitted to the hospital with a chest discomfort. This is his second admission with a chest discomfort. We decided to treat the patient medically where he was started yesterday on the Ranexa. He was seen today 11/18/2019. Unfortunately he continues to have chest discomfort which has increased even with minimal exertion. Because of that and because of the continuous chest discomfort I decided to pursue was coronary angiogram. The procedure in details was explained to the patient. Objective - Vital Signs Vital signs: Vital Signs Temp 97.4 F L 11/18/19 07:30 Pulse 66 11/18/19 07:30 Resp 18 11/18/19 07:53 BP 131/74 11/18/19 07:30 Pulse Ox 95 11/18/19 07:30 Intake & Output 11/17/19 11/18/19 11/18/19 18:59 06:59 18:59 Intake Total 300 Balance 300 Weight 74.7 kg Intake: Oral 300 - Constitutional General appearance: Present: no acute distress - Respiratory Respiratory: bilateral: CTA - Cardiovascular Rhythm: regular Heart sounds: normal: S1, S2 - Labs CBC & Chem 7: 11/18/19 07:21 11/18/19 07:21 Labs: Abnormal Lab Results - Last 24 Hours (Table) 11/17/19 11/17/19 11/17/19 Range/Units 11:45 16:42 19:46 Hgb (13.0-17.5) gm/dL Hct (39.0-53.0) % BUN (9-20) mg/dL Glucose (74-99) mg/dL POC Glucose (mg/dL) 127 H 229 H 127 H (75-99) mg/dL Magnesium (1.6-2.3) mg/dL Total Protein (6.3-8.2) g/dL Albumin (3.5-5.0) g/dL 11/18/19 11/18/19 11/18/19 Range/Units 06:22 07:21 07:21 Hgb 12.6 L (13.0-17.5) gm/dL Hct 36.9 L (39.0-53.0) % BUN 32 H (9-20) mg/dL Glucose 191 H (74-99) mg/dL POC Glucose (mg/dL) 200 H (75-99) mg/dL Magnesium 1.5 L (1.6-2.3) mg/dL Total Protein 5.6 L (6.3-8.2) g/dL Albumin 3.2 L (3.5-5.0) g/dL Assessment and Plan Assessment: Assessment #1 acute coronary syndrome #2 severe CAD and prior revascularization #3 multiple comorbid condition #4 ongoing chest discomfort Plan #1 continue the current medical regimen #2 proceed was coronary angiogram #3 further recommendation to follow that
[2019-11-18] MEDS: MAGNESIUM SULFATE-D5W PMX 1 GM in DEXTROSE/WATER 1 100ML.BAG IVPB SCH ×2 (10:51→13:23)
--- NOTE | 2019-11-18 11:09 | P.PN ---
Subjective Progress Note Date: 11/18/19 Principal diagnosis: Chest pain. This is a 54-year-old male patient of Dr. Montesinos and Dr. Ga with past medical history of coronary artery disease status post 6 vessel CABG 2006 with MAE to LAD, saphenous venous graft to the PDA, saphenous venous graft to the obtuse marginal one, radial artery to the obtuse marginal branch 2 and saphenous venous graft to the obtuse marginal 3 followed by heart catheterization with PCI and stent of the saphenous venous graft to the RCA in 2015 at which time he presented with non-ST elevated myocardial infarction. Most recent cardiac catheterization was performed in March of this year which revealed severe triple-vessel coronary artery disease with a patent ramus intermediate, patent SVG to the OM, patent MAE to the LAD, and occluded saphenous vein graft to the RCA which is chronic from before. Medical therapy was advised at that time. History of hypertension hypertensive cardiovascular disease with left ventricular hypertrophy, hyperlipidemia, ischemic cardiomyopathy, paroxysmal atrial fibrillation currently on Xarelto, diabetes mellitus type 2 with diabetic polyneuropathy, hyperlipidemia, asthma, obstructive sleep apnea on CPAP, chronic low back pain, chronic kidney disease stage II, DVT in the past. Patient has had several admissions for chest pain. He now presents with chest discomfort/heaviness been on and off that occurs with minimal exertion along with shortness of breath. Chest x-ray on presentation here did not show any acute findings. EKG showed normal sinus rhythm with nonspecific ST-T wave changes. Blood pressure 116/60 with a heart rate is 6098% on room air. White blood cell count 6.5, hemoglobin 14.2, platelet count 169. Sodium 139, potassium 3.5, BUN 136 and creatinine 1.1, troponins 0.06, 0.07 and 0.07. Patient has been admitted to the cardiac stepdown unit and cardiology cons ult requested. 11/17: Patient is sitting up in bed he continues to have effort angina, he denies any coughing or any shortness of breath, he was started yesterday on her Ranexa 500 mg orally twice every day without any relief of his chest pain, he was seen earlier by cardiology and he was scheduled for left heart catheterization by Dr. Villagomez later on today. Objective - Vital Signs Vital signs: Vital Signs Temp 97.4 F L 11/18/19 07:30 Pulse 66 11/18/19 07:30 Resp 18 11/18/19 07:53 BP 131/74 11/18/19 07:30 Pulse Ox 95 11/18/19 07:30 Intake & Output 11/17/19 11/18/19 11/18/19 18:59 06:59 18:59 Intake Total 300 Balance 300 Weight 74.7 kg Intake: Oral 300 - Exam Review of Systems Constitutional: Denies chills, Denies fatigue, Denies fever, Denies lethargy, Denies poor appetite, Denies weakness Eyes: denies blurred vision, denies pain Ears, nose, mouth and throat: Denies dysphagia, Denies headache, Denies nasal congestion, Denies nasal discharge, Denies sore throat, Denies vertigo Cardiovascular: Reports chest pain, Reports dyspnea on exertion, Reports palpitations, Denies leg edema, Denies lightheadedness, Denies syncope Respiratory: Denies cough, Denies cough with sputum, Denies excessive sputum, Denies hemoptysis, Denies home oxygen, Denies respiratory infections, Denies wheezing Gastrointestinal: Denies abdominal pain, Denies diarrhea, Denies loss of appetite, Denies nausea, Denies vomiting Genitourinary: Denies dysuria, Denies urinary frequency, Denies urinary retention Musculoskeletal: Denies frequent falls, Denies gait dysfunction, Denies muscle weakness, Denies myalgias Integumentary: Denies pruritus, Denies rash, Denies wounds Neurological: Denies change in mentation, Denies change in speech, Denies numbness, Denies weakness Psychiatric: Denies anxiety, Denies depression Endocrine: Reports high blood sugars, Denies fatigue, Denies weight change Physical examination: HEENT: Head is atraumatic, normocephalic, pupils were equal round reactive to light and accommodations, extraocular muscle movement were intact, mucous membranes of the mouth are somewhat dry. Neck: Supple, no JVP, no adenopathy. Chest: Clear to auscultation bilaterally, there is no crackles, no wheezes, no chest wall tenderness, no intercostal retractions. Heart: First heart sound is depressed, second heart sounds normal, there is systolic ejection murmur 2/6 located in the left sternal border. Abdomen: Soft, nontender, non-distended, positive bowel sounds. Extremities: There is no edema, no calf tenderness, dorsalis pedis +1 bilaterally. Neurologic examination: Patient is awake alert and oriented 3, cranial nerves III-12 appear grossly intact, muscle power 4 out of 5 in upper and lower extremities bilaterally, neuropathic changes both lower extremities. - Labs CBC & Chem 7: 11/19/19 09:33 11/19/19 09:33 Labs: Abnormal Lab Results - Last 24 Hours (Table) 11/17/19 11/17/19 11/17/19 Range/Units 11:45 16:42 19:46 Hgb (13.0-17.5) gm/dL Hct (39.0-53.0) % BUN (9-20) mg/dL Glucose (74-99) mg/dL POC Glucose (mg/dL) 127 H 229 H 127 H (75-99) mg/dL Magnesium (1.6-2.3) mg/dL Total Protein (6.3-8.2) g/dL Albumin (3.5-5.0) g/dL 11/18/19 11/18/19 11/18/19 Range/Units 06:22 07:21 07:21 Hgb 12.6 L (13.0-17.5) gm/dL Hct 36.9 L (39.0-53.0) % BUN 32 H (9-20) mg/dL Glucose 191 H (74-99) mg/dL POC Glucose (mg/dL) 200 H (75-99) mg/dL Magnesium 1.5 L (1.6-2.3) mg/dL Total Protein 5.6 L (6.3-8.2) g/dL Albumin 3.2 L (3.5-5.0) g/dL Assessment and Plan Assessment: Assessment and Plan Plan: 1. Recurrent unstable angina in a patient with prior history of significant CAD. Continue aspirin 81 mg daily, Lipitor 80 mg at bedtime, Imdur 60 mg daily, Lopressor 100 mg twice daily, Ranexa 500 mg orally twice every day, patient is scheduled to go for left heart catheterization later on today. 3. History of coronary artery disease post left heart catheterization that was done with every 2019 that showed triple-vessel coronary artery disease with patent ramus intermedius and a patent MAE to LAD patent SVG to the obtuse ros inal and chronically occluded SVG to the RCA. At that time it was recommended for the patient to continue with conservative management however the patient continues to have recurrent chest pain especially effort-induced angina that is incompatible with activities so he was admitted and is scheduled again for left heart catheterization we will maintain patient on aspirin 81 mg once every day, metoprolol 100 mg orally twice every day, Lipitor 80 mg orally once every day, Ranexa 500 mg orally twice every day, isosorbide mononitrate 60 mg orally once every day. 4. Hypertension and hypertensive cardiovascular disease. Continue clonidine 0.1 mg twice daily, Lasix 40 mg daily, hydralazine 50 mg 3 times daily, hydrochlorothiazide 12.5 mg daily, losartan 100 mg daily, Lopressor 100 mg orally twice every day. 5. Paroxysmal atrial fibrillation. Patient is currently on Xarelto, Lopressor 100 mg twice daily. 6. Diabetes mellitus type 2. Continue Levemir 23 units at bedtime, 7 units with meals and NovoLog scale before meals, Metformin 1000 mg twice daily. We will hold metformin post heart catheterization for 48 hours 7. Diabetic polyneuropathy. Continue gabapentin 600 mg twice daily. 8. Hyperlipidemia. Continue atorvastatin 80 mg orally once every day. 9. Mild intermittent asthma. Stable at this point in time. 10. Obstructive sleep apnea on CPAP. 11. Chronic low back pain. Stable. 12. DVT prophylaxis. Increase ambulation, patient is to resume Xarelto post left heart catheterization. 14. GI prophylaxis. Protonix 40 mg orally once every day. 15. Prognosis is guarded.
[2019-11-18] MEDS ORDERED: LIDOCAINE 1% INJ 10MG/ML (20 ML MDV) ONE (11:11)
[2019-11-18] MEDS ORDERED: fentaNYL (PF) 50 MCG/ML 2 ML AMP ONE (11:13)
[2019-11-18] MEDS ORDERED: MIDAZOLAM 2 MG/2 ML VIAL IV ONE (11:25)
[2019-11-18] MEDS ORDERED: fentaNYL (PF) 50 MCG/ML 2 ML AMP IV ONE (11:25)
[2019-11-18] MEDS ORDERED: LIDOCAINE 1% INJ 10MG/ML (20 ML MDV) SQ ONE (11:25)
[2019-11-18] MEDS ORDERED: IV FLUID CONTINUATION 950 ML IV ONE (11:26)
[2019-11-18] MEDS ORDERED: BIVALIRUDIN BOLUS 250 MG/50 ML IV ONE (11:36)
[2019-11-18] MEDS ORDERED: BIVALIRUDIN 250 MG in SODIUM CHLORIDE 0.9% 50 ML IV ONE (11:36)
[2019-11-18] MEDS: NITROGLYCERIN 1000MCG/10ML SYRINGE INTRACORON ONE ×2 (11:47→11:51)
[2019-11-18] MEDS ORDERED: IOPAMIDOL-370 125ML BTL INJ ONE (11:53)
[2019-11-18] MEDS ORDERED: CLOPIDOGREL 75 MG TAB PO ONE (11:54)
[2019-11-18] MEDS ORDERED: CLOPIDOGREL 75 MG TAB ONE (11:55)
[2019-11-18] MEDS ORDERED: ZOLPIDEM 5 MG TAB PO PRN (12:01)
[2019-11-18] MEDS ORDERED: MAG HYDROX/AL HYDROX/SIMETH 30 ML CUP PO PRN (12:01)
[2019-11-18] MEDS ORDERED: RX INFO: IV CONTRAST WAS GIVEN 1 EACH MISC MISCELLANE PRN (12:01)
[2019-11-18] MEDS ORDERED: ATROPINE SULFATE 0.1 MG/ML 10ML SYRINGE IV PRN (12:01)
[2019-11-18] MEDS ORDERED: NITROGLYCERIN SL TABS 0.4 MG TAB SUBLINGUAL PRN (12:01)
[2019-11-18] MEDS ORDERED: SODIUM CHLORIDE 0.9% 1,000 ML IV SCH (12:15)
[2019-11-18 12:31] LABS: Glucose,Whole Blood 96 mg/dL (75-99)
--- NOTE | 2019-11-18 14:03 | LTR ---
DATE OF SERVICE: November 18, 2019. Dear Dr. Montesinos: Because Mr. Lakhwinder Hirsch continues to have ongoing chest discomfort. I did advise proceeding with a heart catheterization. The heart catheterization revealed critical disease involving the proximal left circumflex. The disease has progressed significantly compared to before. I did perform successful stenting of the proximal left circumflex with good angiographic results. Thank you for allowing us to participate in his care. Sincerely, NINA / JODIEN: [id number] /
--- NOTE | 2019-11-18 14:12 | CC ---
CARDIAC CATHETERIZATION REPORT DATE OF SERVICE: 11/18/2019 PERFORMING PHYSICIAN: Cristhian Villagomez MD. PROCEDURE PERFORMED: 1. Selective left and right coronary angiogram. 2. Left heart catheterization. 3. MAE to LAD angiogram. 4. SVG to OM angiogram. 5. SVG to RCA angiogram. 6. Successful stenting of the proximal left circumflex coronary artery using 2.0 x 15 mm [place] drug-eluting stent with an excellent angiographic results and reduction of stenosis from 99% to 0%. INDICATION: This is a 54-year-old gentleman who sees Dr. Ga in the office as an outpatient with history of coronary artery disease and prior coronary artery bypass grafting with the last heart catheterization performed in 2019 showing severe triple-vessel CAD with patent MAE to LAD and patent SVG to LCX as well as occluded SVG to RCA. At that point, the patient was found to have intermediate to severe disease involving a medium caliber proximal left circumflex coronary artery, not connected to the OM which was bypassed. Maximized medical treatment was advised. Since then, the patient was admitted to the hospital twice. This time he presented with chest discomfort and his troponin came into be slightly elevated. We advise maximized medical treatment and we added Ranexa to Imdur as well as anti-ischemic medications. Unfortunately, the following day, the patient woke up complaining of discomfort with even minimal exertion. Because of that and because of the ongoing chest discomfort, a heart catheterization was advised. APPROACH: Right common femoral artery. COMPLICATION: None. LEVEL OF SEDATION: Moderate with sedation length of 22 minutes. PROCEDURE DESCRIPTION: After obtaining informed consent, the patient was brought to cardiac laboratory coordinator. The right common femoral artery was cannulated using micropuncture technique, the micropuncture wire passed easily. Then I placed a 6-Brazilian sheath at the right common femoral artery. After that I did selective left and right coronary angiogram. Selective left coronary angiogram was performed using JL4 catheter and selective right coronary angiogram was performed using JR4 catheter. The MAE to LAD angiogram and SVG to OM angiogram and SVG to RCA angiogram performed using the JR4 catheter. Left heart catheterization was performed using 6-Brazilian pigtail catheter. After that, I did intervene on the left circumflex. Please see a separate paragraph for that. Selective coronary angiogram. 1. The left main is calcified with mild disease only. It bifurcates into LCX and LAD. 2. The LCX is a medium caliber vessel. The proximal left circumflex has a tight lesion that appeared to be in the range of 99.9%, which has progressed significantly compared to prior heart catheterization in 2019. The left circumflex continues as a medium caliber vessel. 3. The left anterior descending artery is chronically occluded in the proximal to midportion. 4. The right coronary artery is occluded in the proximal portion. Coronary bypasses angiogram. 1. The MAE to LAD is patent. The LAD distal to MAE anastomosis has diffuse disease. 2. The SVG to OM is patent. 3. The SVG to RCA is occluded. HEMODYNAMICS: The LVEDP was 12 mmHg without significant gradient across the aortic valve. PCI of the LCX. Anticoagulation was achieved with Angiomax with bolus and drip. Subsequently, I did engage the left main using an XP35 guide. I did wire the left circumflex using a Whisper wire. Subsequently I did PTCA ballooning using 2.5 x 12 mm balloon and then I deployed 2.0 x 15 mm [place] drug-eluting stent. The stent was positioned under fluoroscopy guidance and deployed under 18 atmospheres for 20 seconds. The following angiogram showed excellent angiographic results and the procedure was completed without any complication. CONCLUSION: 1. Severe triple-vessel coronary artery disease. 2. Patent left internal mammary artery to left anterior descending. 3. Patent saphenous vein graft to the obtuse marginal. The left circumflex, which is not connected to the obtuse marginal, has a tight lesion. 4. Occluded saphenous vein graft to right coronary artery. 5. I performed successful stenting of the proximal left circumflex using 2.0 x 15 mm Emanuel drug-eluting stent with an excellent angiographic result. 6. Normal LVEDP. POSTPROCEDURE MANAGEMENT: 1. Maximize medical treatment. 2. Risk factor modification. 3. Aggressive cholesterol control. 4. Follow up with the patient. MMODL / IJN: [id number] /
[2019-11-18 15:21] VITALS: BMI 25.7
[2019-11-18 16:59] LABS: Glucose,Whole Blood 171 mg/dL (75-99)
[2019-11-18] MEDS: RIVAROXABAN 15 MG TAB PO SCH (17:32)
[2019-11-18] MEDS ORDERED: ACETAMINOPHEN TAB 325 MG TAB PO PRN (19:20)
[2019-11-18 19:44] LABS: Glucose,Whole Blood 294 mg/dL (75-99)
[2019-11-18] MEDS: ATORVASTATIN 80 MG TAB PO SCH (20:07)
[2019-11-18] MEDS: INSULIN DETEMIR (LEVEMIR) 100 UNIT/ML SYR SQ SCH (20:08)
[2019-11-19 06:54] LABS: Glucose,Whole Blood 120 mg/dL (75-99)
[2019-11-19] MEDS: INSULIN ASPART (NovoLOG) 100 UNIT/ML VIAL SQ SCH ×7 (07:19→21:03)
[2019-11-19] MEDS: LOSARTAN-HCTZ 50-12.5 MG 1 EACH TAB PO SCH (08:55)
[2019-11-19] MEDS: RANOLAZINE 500 MG TAB.ER.12H PO SCH ×2 (08:55→21:04)
[2019-11-19] MEDS: GABAPENTIN 300 MG CAP PO SCH ×2 (08:55→21:04)
[2019-11-19] MEDS: hydrALAZINE HCL 50 MG TAB PO SCH ×2 (08:55→21:04)
[2019-11-19] MEDS: POTASSIUM CHLORIDE ER 10 MEQ TAB.ER.PRT PO SCH (08:55)
[2019-11-19] MEDS: ISOSORBIDE MONONITRATE ER 60 MG TAB.ER.24H PO SCH (08:55)
[2019-11-19] MEDS: METOPROLOL TARTRATE 50 MG TAB PO SCH ×2 (08:56→21:04)
[2019-11-19] MEDS: FUROSEMIDE 40 MG TAB PO SCH (08:56)
[2019-11-19] MEDS: MULTIVITAMINS, THERA 1 EACH TAB PO SCH (08:56)
[2019-11-19] MEDS: CLOPIDOGREL 75 MG TAB PO SCH (08:56)
[2019-11-19] MEDS: cloNIDine HCL 0.1 MG TAB PO SCH ×2 (09:00→21:04)
--- NOTE | 2019-11-19 09:19 | P.PN ---
Subjective Progress Note Date: 11/19/19 This is a 54-year-old gentleman with coronary artery disease and prior coronary artery bypass grafting who underwent a heart catheterization about a year ago which showed severe triple-vessel CAD with severe disease involving a medium caliber left circumflex which was treated medically. He was admitted to the hospital with a chest discomfort. This is his second admission with a chest discomfort. We decided to treat the patient medically where he was started yesterday on the Ranexa. He was seen today 11/18/2019. Unfortunately he continues to have chest discomfort which has increased even with minimal exertion. Because of that and because of the continuous chest discomfort I decided to pursue was coronary angiogram. The procedure in details was explained to the patient. 11/18: Yesterday, patient underwent left heart catheterization and successful stenting of the proximal left circumflex with excellent results. This morning, patient states he is continuing to have left-sided chest pain that is a #3-4. This is less severe than previous distant yesterday. He states it happens while he is at rest and with movement. Patient also complains of a nosebleed that started this morning and also he's had a small amount of blood when Canales catheter was removed. He has not voided yet. Physical examination Gen: This is a 54-year-old male. He is resting in bed and appears to be comfortable with no acute distress. HEENT: Head is atraumatic, normocephalic. Pupils equal, round. Sclerae is anicteric. NECK: Supple. No JVD. No lymphadenopathy. No thyromegaly. LUNGS: Clear to auscultation. No wheezes or rhonchi. No intercostal retra ctions. HEART: Regular rate and rhythm. Systolic murmur. No chest wall tenderness. ABDOMEN: Soft. Bowel sounds are present. No masses. No tenderness. EXTREMITIES: No pedal edema. No calf tenderness. NEUROLOGICAL: Patient is awake, alert and oriented x3. Cranial nerves 2 through 12 are grossly intact. Assessment #1 acute coronary syndrome status post stenting of the proximal left circumflex #2 severe CAD and prior revascularization #3 multiple comorbid condition #4 ongoing chest discomfort Plan Continue current medications including atorvastatin, Plavix, Xarelto, Lopressor, Imdur Patient is cleared for discharge home, follow up in the office. Nurse practitioner note has been reviewed, I agree with documented findings and plan of care. Patient was seen and examined. Objective - Vital Signs Vital signs: Vital Signs Temp 98.7 F 11/19/19 03:44 Pulse 59 L 11/19/19 03:44 Resp 16 11/19/19 03:44 BP 135/82 11/19/19 03:44 Pulse Ox 94 L 11/19/19 03:44 Intake & Output 11/18/19 11/19/19 11/19/19 18:59 06:59 18:59 Intake Total 909 Output Total 2750 775 Balance -1841 -775 Weight 74.7 kg 74.4 kg Intake: IV 115 Intake, IV Titration 100 Amount Magnesium Sulfate-D5w Pmx 100 1 gm In Dextrose/Water 1 100ml.bag @ 100 mls/hr IVPB Q1H [facility] Rx#: [id number] Oral 694 Output: Urine 2750 775 Straight 2050 Other: Voiding Method Indwelling Catheter Indwelling Catheter - Labs CBC & Chem 7: 11/18/19 07:21 11/19/19 09:33 Labs: Abnormal Lab Results - Last 24 Hours (Table) 11/18/19 11/18/19 11/18/19 Range/Units 07:21 16:57 19:39 BUN 32 H (9-20) mg/dL Glucose 191 H (74-99) mg/dL POC Glucose (mg/dL) 171 H 294 H (75-99) mg/dL Magnesium 1.5 L (1.6-2.3) mg/dL Total Protein 5.6 L (6.3-8.2) g/dL Albumin 3.2 L (3.5-5.0) g/dL 11/19/19 Range/Units 06:52 BUN (9-20) mg/dL Glucose (74-99) mg/dL POC Glucose (mg/dL) 120 H (75-99) mg/dL Magnesium (1.6-2.3) mg/dL Total Protein (6.3-8.2) g/dL Albumin (3.5-5.0) g/dL
[2019-11-19 10:04] LABS: Albumin 3.2 g/dL (3.5-5.0); Calcium 8.4 mg/dL (8.4-10.2); Magnesium 1.8 mg/dL (1.6-2.3); Potassium 3.5 mmol/L (3.5-5.1); Total Bilirubin 0.8 mg/dL (0.2-1.3); Total Protein 5.7 g/dL (6.3-8.2)
[2019-11-19 10:21] LABS: Basophils % (A) 0 %; Eosinophils # (A) 0.3 k/uL (0-0.7); Eosinophils % (A) 4 %; HCT 36.4 % (39.0-53.0); HGB 12.8 gm/dL (13.0-17.5); Lymphocytes # (A) 0.9 k/uL (1.0-4.8); Lymphocytes % (A) 10 %; MCH 29.4 pg (25.0-35.0); MCHC 35.3 g/dL (31.0-37.0); MCV 83.3 fL (80.0-100.0); Mean Platelet Volume 8.3; Monocytes # (A) 0.7 k/uL (0-1.0); Monocytes % (A) 8 %; Neutrophils # (A) 6.9 k/uL (1.3-7.7); Neutrophils % (A) 77 %; Platelet Count 170 k/uL (150-450); RBC 4.36 m/uL (4.30-5.90); RDW 13.5 % (11.5-15.5); WBC 8.9 k/uL (3.8-10.6)
[2019-11-19 11:55] LABS: Glucose,Whole Blood 150 mg/dL (75-99)
--- NOTE | 2019-11-19 14:15 | P.PN ---
Subjective Progress Note Date: 11/19/19 Principal diagnosis: Chest pain. This is a 54-year-old male patient of Dr. Montseinos and Dr. Ga with past medical history of coronary artery disease status post 6 vessel CABG 2006 with MAE to LAD, saphenous venous graft to the PDA, saphenous venous graft to the obtuse marginal one, radial artery to the obtuse marginal branch 2 and saphenous venous graft to the obtuse marginal 3 followed by heart catheterization with PCI and stent of the saphenous venous graft to the RCA in 2015 at which time he presented with non-ST elevated myocardial infarction. Most recent cardiac catheterization was performed in March of this year which revealed severe triple-vessel coronary artery disease with a patent ramus intermediate, patent SVG to the OM, patent MAE to the LAD, and occluded saphenous vein graft to the RCA which is chronic from before. Medical therapy was advised at that time. History of hypertension hypertensive cardiovascular disease with left ventricular hypertrophy, hyperlipidemia, ischemic cardiomyopathy, paroxysmal atrial fibrillation currently on Xarelto, diabetes mellitus type 2 with diabetic polyneuropathy, hyperlipidemia, asthma, obstructive sleep apnea on CPAP, chronic low back pain, chronic kidney disease stage II, DVT in the past. Patient has had several admissions for chest pain. He now presents with chest discomfort/heaviness been on and off that occurs with minimal exertion along with shortness of breath. Chest x-ray on presentation here did not show any acute findings. EKG showed normal sinus rhythm with nonspecific ST-T wave changes. Blood pressure 116/60 with a heart rate is 6098% on room air. White blood cell count 6.5, hemoglobin 14.2, platelet count 169. Sodium 139, potassium 3.5, BUN 136 and creatinine 1.1, troponins 0.06, 0.07 and 0.07. Patient has been admitted to the cardiac stepdown unit and cardiology cons ult requested. 11/17: Patient is sitting up in bed he continues to have effort angina, he denies any coughing or any shortness of breath, he was started yesterday on her Ranexa 500 mg orally twice every day without any relief of his chest pain, he was seen earlier by cardiology and he was scheduled for left heart catheterization by Dr. Villagomez later on today. 11/18: Patient underwent left heart catheterization yesterday that showed triple- vessel coronary artery disease with 99.9% stenosis of the left circumflex artery even though there was no connection with the push marginal branch, patient was stented with on X drug-eluting stent and the patient did have a good angiographic result, however the patient continues to have some chest pain on and off, his chest pain has typical and atypical features, he would be maintained on Plavix any 5 minute gram once every day, Xarelto 15 mg orally once every day, Lipitor 80 mg once every day, as well as beta aracely, he would be kept in the hospital for another 24 hours, as the patient did have a nosebleed due to possible combination of Xarelto on Plavix and dryness in the air he would be started on saline nasal spray 2 puffs in each nostril twice every day, and he did have an episode of hematuria after his catheter was removed and he is doing much better now. Objective - Vital Signs Vital signs: Vital Signs Temp 98.5 F 11/19/19 12:41 Pulse 74 11/19/19 12:41 Resp 16 11/19/19 12:41 BP 124/76 11/19/19 12:41 Pulse Ox 96 11/19/19 12:41 Intake & Output 11/18/19 11/19/19 11/19/19 18:59 06:59 18:59 Intake Total 909 472 Output Total 2750 775 Balance -1841 -775 472 Weight 74.7 kg 74.4 kg Intake: IV 115 Intake, IV Titration 100 Amount Magnesium Sulfate-D5w Pmx 100 1 gm In Dextrose/Water 1 100ml.bag @ 100 mls/hr IVPB Q1H [facility] Rx#: [id number] Oral 694 472 Output: Urine 2750 775 Straight 2049 Other: Voiding Method Indwelling Catheter Indwelling Catheter Indwelling Catheter # Voids 1 - Exam Review of Systems Constitutional: Denies chills, Denies fatigue, Denies fever, Denies lethargy, Denies poor appetite, Denies weakness Eyes: denies blurred vision, denies pain Ears, nose, mouth and throat: Denies dysphagia, Denies headache, Denies nasal congestion, Denies nasal discharge, Denies sore throat, Denies vertigo Cardiovascular: Reports chest pain, Reports dyspnea on exertion, Reports palpitations, Denies leg edema, Denies lightheadedness, Denies syncope Respiratory: Denies cough, Denies cough with sputum, Denies excessive sputum, Denies hemoptysis, Denies home oxygen, Denies respiratory infections, Denies wheezing Gastrointestinal: Denies abdominal pain, Denies diarrhea, Denies loss of appetite, Denies nausea, Denies vomiting Genitourinary: Denies dysuria, Denies urinary frequency, Denies urinary ret ention Musculoskeletal: Denies frequent falls, Denies gait dysfunction, Denies muscle weakness, Denies myalgias Integumentary: Denies pruritus, Denies rash, Denies wounds Neurological: Denies change in mentation, Denies change in speech, Denies numbness, Denies weakness Psychiatric: Denies anxiety, Denies depression Endocrine: Reports high blood sugars, Denies fatigue, Denies weight change Physical examination: HEENT: Head is atraumatic, normocephalic, pupils were equal round reactive to light and accommodations, extraocular muscle movement were intact, mucous mem branes of the mouth are somewhat dry. Neck: Supple, no JVP, no adenopathy. Chest: Clear to auscultation bilaterally, there is no crackles, no wheezes, no chest wall tenderness, no intercostal retractions. Heart: First heart sound is depressed, second heart sounds normal, there is systolic ejection murmur 2/6 located in the left sternal border. Abdomen: Soft, nontender, non-distended, positive bowel sounds. Extremities: There is no edema, no calf tenderness, dorsalis pedis +1 bilaterally. Neurologic examination: Patient is awake alert and oriented 3, cranial nerves III-12 appear grossly intact, muscle power 4 out of 5 in upper and lower extremities bilaterally, neuropathic changes both lower extremities. - Labs CBC & Chem 7: 11/19/19 09:33 11/19/19 09:33 Labs: Abnormal Lab Results - Last 24 Hours (Table) 11/18/19 11/18/19 11/19/19 Range/Units 16:57 19:39 06:52 Hgb (13.0-17.5) gm/dL Hct (39.0-53.0) % Lymphocytes # (1.0-4.8) k/uL BUN (9-20) mg/dL Creatinine (0.66-1.25) mg/dL Glucose (74-99) mg/dL POC Glucose (mg/dL) 171 H 294 H 120 H (75-99) mg/dL Total Protein (6.3-8.2) g/dL Albumin (3.5-5.0) g/dL 11/19/19 11/19/19 11/19/19 Range/Units 09:33 09:33 11:53 Hgb 12.8 L (13.0-17.5) gm/dL Hct 36.4 L (39.0-53.0) % Lymphocytes # 0.9 L (1.0-4.8) k/uL BUN 26 H (9-20) mg/dL Creatinine 1.29 H (0.66-1.25) mg/dL Glucose 175 H (74-99) mg/dL POC Glucose (mg/dL) 150 H (75-99) mg/dL Total Protein 5.7 L (6.3-8.2) g/dL Albumin 3.2 L (3.5-5.0) g/dL Assessment and Plan Assessment: Assessment and Plan Plan: 1. Recurrent unstable angina in a patient with prior history of significant CAD. Patient underwent left heart catheterization post PCI of the left circumflex off his coronary artery with 99% lesion with good angiographic result. Continue patient on Plavix 75 minute gram orally once every day, continue patient also on Lipitor 80 mg once every day, and Xarelto 15 mg orally once every day, continue also metoprolol 100 mg orally twice every day and Ranexa 500 mg orally twice every day as well. 2. History of coronary artery disease post left heart catheterization that was done with every 2019 that showed triple-vessel coronary artery disease with patent ramus intermedius and a patent MAE to LAD patent SVG to the obtuse marginal and chronically occluded SVG to the RCA. At that time it was recommended for the patient to continue with conservative management however the patient continues to have recurrent chest pain especially effort-induced angina that is incompatible with activities so he was admitted and his left heart cath physician showed 99.9% stenosis of the left circumflex Artery with the patent MAE to LAD patent SEG to obtuse marginal and occluded SVG to the RCA his left ventricular end diastolic pressure was normal, patient ended up having a katie drug-eluting stent to the left circumflex artery. 3. Hypertension and hypertensive cardiovascular disease. Continue clonidine 0.1 mg twice daily, Lasix 40 mg daily, hydralazine 50 mg 3 times daily, hydroch lorothiazide 12.5 mg daily, losartan 100 mg daily, Lopressor 100 mg orally twice every day. 4. Paroxysmal atrial fibrillation. Patient is currently on Xarelto 15 mg orally once every day,, Lopressor 100 mg twice daily. 5. Diabetes mellitus type 2. Continue Levemir 23 units at bedtime, 7 units with meals and NovoLog scale before meals, Metformin 1000 mg twice daily. We will hold metformin post heart catheterization for 48 hours 6. Diabetic polyneuropathy. Continue gabapentin 600 mg twice daily. 7. Hyperlipidemia. Continue atorvastatin 80 mg orally once every day. 8. Mild intermittent asthma. Stable at this point in time. 9. Obstructive sleep apnea on CPAP. 10. Chronic low back pain. Stable. 11. DVT prophylaxis. Increase ambulation, patient is currently on Xarelto 15 mg orally once every day. 12. GI prophylaxis. Protonix 40 mg orally once every day. 13. Repeat labs tomorrow morning hopefully home in the next 24 hours. 14. Nosebleed. Start the patient on saline spray 2 puffs in each nostril 3 times every day. 15. One episode of hematuria likely traumatic. Recheck the patient hemoglobin and next 24 hours.
[2019-11-19 17:17] LABS: Glucose,Whole Blood 157 mg/dL (75-99)
[2019-11-19] MEDS: RIVAROXABAN 15 MG TAB PO SCH (18:47)
[2019-11-19 20:13] LABS: Glucose,Whole Blood 297 mg/dL (75-99)
[2019-11-19] MEDS: INSULIN DETEMIR (LEVEMIR) 100 UNIT/ML SYR SQ SCH (21:03)
[2019-11-19] MEDS: ATORVASTATIN 80 MG TAB PO SCH (21:04)
[2019-11-20 03:27] VITALS: PULSE 74; RESP 17
[2019-11-20 07:02] LABS: Glucose,Whole Blood 219 mg/dL (75-99)
[2019-11-20] MEDS: INSULIN ASPART (NovoLOG) 100 UNIT/ML VIAL SQ SCH ×2 (07:02)
[2019-11-20 08:12] LABS: Albumin 3.4 g/dL (3.5-5.0); Calcium 8.7 mg/dL (8.4-10.2); Potassium 3.5 mmol/L (3.5-5.1); Total Bilirubin 0.8 mg/dL (0.2-1.3); Total Protein 5.9 g/dL (6.3-8.2)
--- NOTE | 2019-11-20 08:18 | P.DS ---
Providers Date of admission: 11/18/19 13:00 Expected date of discharge: 11/20/19 Attending physician: Kelly Montesinos Consults: 11/16/19 19:58 Consult Physician Urgent Consulting Provider: [facility] Consult Reason/Comments: Unstable angina Do you want consulting provider notified?: Yes 11/18/19 12:01 Consult Physician Routine Consulting Provider: [facility] Consult Reason/Comments: Post Interventional patient Do you want consulting provider notified?: Already Contacted Primary care physician: Kelly Montesinos Hospital Course: This is a 54-year-old male patient of Dr. Montesinos and Dr. Ga with past medical history of coronary artery disease status post 6 vessel CABG 2006 with MAE to LAD, saphenous venous graft to the PDA, saphenous venous graft to the obtuse marginal one, radial artery to the obtuse marginal branch 2 and saphenous venous graft to the obtuse marginal 3 followed by heart catheterization with PCI and stent of the saphenous venous graft to the RCA in 2015 at which time he presented with non-ST elevated myocardial infarction. Most recent cardiac catheterization was performed in March of this year which revealed severe triple-vessel coronary artery disease with a patent ramus intermediate, patent SVG to the OM, patent MAE to the LAD, and occluded saphenous vein graft to the RCA which is chronic from before. Medical therapy was advised at that time. History of hypertension hypertensive cardiovascular disease with left ventricular hypertrophy, hyperlipidemia, ischemic cardiomyopathy, paroxysmal atrial fibrillation currently on Xarelto, diabetes mellitus type 2 with diabetic polyneuropathy, hyperlipidemia, asthma, obstructive sleep apnea on CPAP, chronic low back pain, chronic kidney disease stage II, DVT in the past. Patient has had several admissions for chest pain. He now presents with chest discomfort/heaviness been on and off that occurs with minimal exertion along with shortness of breath. Chest x-ray on presentation here did not show any acute findings. EKG showed normal sinus rhythm with nonspecific ST-T wave changes. Blood pressure 116/60 with a heart rate is 6098% on room air. White blood cell count 6.5, hemoglobin 14.2, platelet count 169. Sodium 139, potassium 3.5, BUN 136 and creatinine 1.1, troponins 0.06, 0.07 and 0.07. Patient has been admitted to the cardiac stepdown unit and cardiology consult requested. 11/17: Patient is sitting up in bed he continues to have effort angina, he denies any coughing or any shortness of breath, he was started yesterday on her Ranexa 500 mg orally twice every day without any relief of his chest pain, he was seen earlier by cardiology and he was scheduled for left heart catheterization by Dr. Villagomez later on today. 11/18: Patient underwent left heart catheterization yesterday that showed triple- vessel coronary artery disease with 99.9% stenosis of the left circumflex artery even though there was no connection with the push marginal branch, patient was stented with on X drug-eluting stent and the patient did have a good angiographic result, however the patient continues to have some chest pain on and off, his chest pain has typical and atypical features, he would be maintained on Plavix any 5 minute gram once every day, Xarelto 15 mg orally once every day, Lipitor 80 mg once every day, as well as beta aracely, he would be kept in the hospital for another 24 hours, as the patient did have a nosebleed due to possible combination of Xarelto on Plavix and dryness in the air he would be started on saline nasal spray 2 puffs in each nostril twice every day, and he did have an episode of hematuria after his catheter was removed and he is doing much better now. Discharge diagnoses: 1. Unstable angina post left heart catheterization with PCI of the LCx for critical lesion 99.9%. 2. Severe triple coronary artery disease with patent MAE to LAD, patent SVG to first marginal and occluded SVG to RCA. 3. Hypertension and hypertensive cardiovascular disease. 4. Paroxysmal atrial fibrillation. 5. Diabetes mellitus type 2. 6. Diabetic polyneuropathy. 7. Hyperlipidemia. 8. Mild intermittent asthma. 9. Obstructive sleep apnea on CPAP. 10. Chronic low back pain. 11. Nosebleed. 12. Hematuria. Plan - Discharge Summary Discharge Rx Participant: No New Discharge Prescriptions: No Action Multivitamins, Thera [Multivitamin (formulary)] 1 tab PO DAILY Potassium Chloride ER [K-Dur 10] 10 meq PO DAILY #30 tab Atorvastatin [Lipitor] 80 mg PO HS #30 tab Metoprolol Tartrate [Lopressor] 100 mg PO BID #60 tab Aspirin 81 mg PO DAILY #30 chewable Nitroglycerin Sl Tabs [Nitrostat] 0.4 mg SL Q5M PRN PRN Reason: Chest Pain Losartan/Hydrochlorothiazide [Hyzaar 100-12.5 Tablet] 1 tab PO DAILY Gabapentin [Neurontin] 600 mg PO BID metFORMIN HCL [Glucophage] 1,000 mg PO AC-BID hydrALAZINE HCL [Apresoline] 50 mg PO BID cloNIDine HCL [Catapres] 0.1 mg PO BID Furosemide [Lasix] 40 mg PO DAILY Isosorbide Mononitrate ER [Imdur] 60 mg PO DAILY #30 tab.er.24h INSULIN ASPART (NovoLOG) [NovoLOG (formulary)] 7 unit SQ AC-TID vial Rivaroxaban [Xarelto] 20 mg PO W/SUPPER tab Insulin Glargine,Hum.rec.anlog [Basaglar Kwikpen U-100] 23 unit SQ HS #0 lisinopriL [Zestril] 40 mg PO DAILY Discharge Medication List Multivitamins, Thera [Multivitamin (formulary)] 1 tab PO DAILY 12/13/16 [History] Aspirin 81 mg PO DAILY #30 chewable 04/14/19 [Rx] Atorvastatin [Lipitor] 80 mg PO HS #30 tab 04/14/19 [Rx] Metoprolol Tartrate [Lopressor] 100 mg PO BID #60 tab 04/14/19 [Rx] Potassium Chloride ER [K-Dur 10] 10 meq PO DAILY #30 tab 04/14/19 [Rx] Furosemide [Lasix] 40 mg PO DAILY 11/09/19 [History] Gabapentin [Neurontin] 600 mg PO BID 11/09/19 [History] Losartan/Hydrochlorothiazide [Hyzaar 100-12.5 Tablet] 1 tab PO DAILY 11/09/19 [History] Nitroglycerin Sl Tabs [Nitrostat] 0.4 mg SL Q5M PRN 11/09/19 [History] cloNIDine HCL [Catapres] 0.1 mg PO BID 11/09/19 [History] hydrALAZINE HCL [Apresoline] 50 mg PO BID 11/09/19 [History] metFORMIN HCL [Glucophage] 1,000 mg PO AC-BID 11/09/19 [History] INSULIN ASPART (NovoLOG) [NovoLOG (formulary)] 7 unit SQ AC-TID vial 11/11/19 [Rx] Insulin Glargine,Hum.rec.anlog [Basaglar Kwikpen U-100] 23 unit SQ HS #0 11/11/19 [Rx] Isosorbide Mononitrate ER [Imdur] 60 mg PO DAILY #30 tab.er.24h 11/11/19 [Rx] Rivaroxaban [Xarelto] 20 mg PO W/SUPPER tab 11/11/19 [Rx] lisinopriL [Zestril] 40 mg PO DAILY 11/16/19 [History] Follow up Appointment(s)/Referral(s): Kelly Montesinos MD [Primary Care Provider] - 1-2 days Care Plan Goals (MU): Cardiac rehab
[2019-11-20 08:27] LABS: Basophils % (A) 0 %; Eosinophils # (A) 0.3 k/uL (0-0.7); Eosinophils % (A) 3 %; HGB 13.6 gm/dL (13.0-17.5); Lymphocytes # (A) 1.1 k/uL (1.0-4.8); Lymphocytes % (A) 11 %; MCH 28.7 pg (25.0-35.0); MCHC 34.8 g/dL (31.0-37.0); MCV 82.5 fL (80.0-100.0); Monocytes # (A) 0.7 k/uL (0-1.0); Monocytes % (A) 8 %; Neutrophils # (A) 7.3 k/uL (1.3-7.7); Neutrophils % (A) 77 %; Platelet Count 183 k/uL (150-450); RBC 4.73 m/uL (4.30-5.90); RDW 13.3 % (11.5-15.5); WBC 9.4 k/uL (3.8-10.6)
[2019-11-20] MEDS: RANOLAZINE 500 MG TAB.ER.12H PO SCH (08:40)
[2019-11-20] MEDS: cloNIDine HCL 0.1 MG TAB PO SCH (08:40)
[2019-11-20] MEDS: POTASSIUM CHLORIDE ER 10 MEQ TAB.ER.PRT PO SCH (08:41)
[2019-11-20] MEDS: MULTIVITAMINS, THERA 1 EACH TAB PO SCH (08:41)
[2019-11-20] MEDS: LOSARTAN-HCTZ 50-12.5 MG 1 EACH TAB PO SCH (08:41)
[2019-11-20] MEDS: CLOPIDOGREL 75 MG TAB PO SCH (08:41)
[2019-11-20] MEDS: hydrALAZINE HCL 50 MG TAB PO SCH (08:41)
[2019-11-20] MEDS: METOPROLOL TARTRATE 50 MG TAB PO SCH (08:41)
[2019-11-20] MEDS: ISOSORBIDE MONONITRATE ER 60 MG TAB.ER.24H PO SCH (08:41)
[2019-11-20] MEDS: GABAPENTIN 300 MG CAP PO SCH (08:41)
[2019-11-20] MEDS: FUROSEMIDE 40 MG TAB PO SCH (08:41)
[2019-11-20 10:14] VITALS: BP 169/83; TEMP 99.2
--- NOTE | 2019-11-20 11:07 | P.PN ---
Subjective Progress Note Date: 11/20/19 This is a 54-year-old gentleman who follows regularly with Dr. Ga in the office. He has a known history of coronary artery disease with prior bypass surgery, diabetes, hypertension, hyperlipidemia, sleep apnea, prior DVT history, nicotine dependence, COPD, ischemic cardio myopathy, paroxysmal atrial fibrillation, most recent cardiac catheterization was performed in March of this year which revealed severe triple-vessel coronary artery disease with a patent ramus intermediate, patent SVG to the OM, patent MAE to the LAD and occluded saphenous vein graft to the RCA which was chronic from previously. At that time he was advised medical therapy. Patient also had an admission to the hospital on the of this month where he presented with chest discomfort. Was treated medically and discharged home. He presented again to the hospital with symptoms of chest discomfort. Patient states that he has had persistent chest pressure and heaviness which occur off and on, it did get somewhat better after he was here but he's back to having it with even minimal exertional activities. He also has atypical sharp pain that he complains of in his chest. On this occasion he states just walking to his mailbox he got exertionally very tight in his chest as well as short of breath. This chest x-ray on presentation here did not show any acute findings. EKG showed normal sinus rhythm with nonspecific ST-T wave changes. Blood pressure 116/60 with a heart rate is 6098% on room air. White blood cell count 6.5, hemoglobin 14.2, platelet count 169. Sodium 139, potassium 3.5, BUN 136 and creatinine 1.1, troponins 0.06, 0.07 and 0.07. His troponins on this recent admission on November 08 were 0.05 0.05 and 0.04. At the time of my examination this morning, patient was complaining of a persistent mild chest tightness. 11/20/2019 Patient was seen and examined this morning, over the weekend he had persistent chest discomfort and was taken to the cardiac catheterization lab where he underwent angioplasty and stenting of the circumflex artery. The patient was seen and examined this morning, denies any chest discomfort, unless he takes a deep breath. No arrhythmias noted on the monitor. Blood pressure 156/70 with a heart rate in the 70s, 100% on room air. White blood cell count 9.4, hemoglobin 13.6, platelet count 183. Sodium 138, potassium 3.5, BUN 23, creatinine 1.1. Objective - Vital Signs Vital signs: Vital Signs Temp 99.2 F 11/20/19 08:00 Pulse 74 11/20/19 08:00 Resp 17 11/20/19 08:00 BP 169/83 11/20/19 08:00 Pulse Ox 96 11/20/19 08:00 Intake & Output 11/19/19 11/20/19 11/20/19 18:59 06:59 18:59 Intake Total 708 240 Output Total 320 Balance 708 -320 240 Weight 74.4 kg Intake: Oral 708 240 Output: Urine 320 Other: Voiding Method Indwelling Catheter Toilet Toilet # Voids 1 1 - Exam PHYSICAL EXAMINATION: GENERAL: 54-year-old gentleman in no acute distress at the time of my examination HEENT: Head is atraumatic, normocephalic. Pupils equal, round. Sclera anicteric. Conjunctiva are clear. Mucous membranes of the mouth are moist. Neck is supple. There is no elevated jugular venous pressure. No carotid bruit is heard. HEART EXAMINATION: R S1 and S2 1 systolic ejection murmur is heard CHEST EXAMINATION: Lungs are clear to auscultation and precussion. No chest wall tenderness is noted on palpation or with deep breathing. ABDOMEN: Soft, nontender. Bowel sounds are heard. No organomegaly noted. EXTREMITIES: 2+ peripheral pulses with no evidence of peripheral edema and no calf tenderness noted. Right radial site clean and dry, good distal pulse. NEUROLOGIC patient is awake, alert and oriented 3 . - Labs CBC & Chem 7: 11/20/19 07:12 11/20/19 07:12 Labs: Abnormal Lab Results - Last 24 Hours (Table) 11/19/19 11/19/19 11/19/19 Range/Units 11:53 17:15 20:12 BUN (9-20) mg/dL Glucose (74-99) mg/dL POC Glucose (mg/dL) 150 H 157 H 297 H (75-99) mg/dL Total Protein (6.3-8.2) g/dL Albumin (3.5-5.0) g/dL 11/20/19 11/20/19 Range/Units 07:01 07:12 BUN 23 H (9-20) mg/dL Glucose 184 H (74-99) mg/dL POC Glucose (mg/dL) 219 H (75-99) mg/dL Total Protein 5.9 L (6.3-8.2) g/dL Albumin 3.4 L (3.5-5.0) g/dL Assessment and Plan Plan: Assessment and plan #1 symptoms of chest tightness, with also some atypical sharp chest pains. Cannot completely rule out acute coronary syndrome #2 known history of coronary artery disease with prior bypass surgery and stent placements. Most recent cardiac catheterization was performed in March of this year which revealed severe triple-vessel coronary artery disease with a patent ramus intermediate, patent saphenous vein graft to the OM, patent MAE to the LAD and chronically occluded SVG to the RCA medical therapy advised at that time. #3 troponin abnormality, not consistent with acute coronary syndrome with no significant rise and fall pattern. #4 diabetes #5 hypertension #6 hyperlipidemia #7 sleep apnea #8 history of DVT #9 paroxysmal atrial fibrillation, patient had not been taking Eliquis at home and was recently started on xarelto #11 ischemic cardio myopathy #10 COPD Plan Patient underwent angioplasty and stenting of the circumflex artery over the weekend. From cardiology's perspective, he may be able to be discharged home today. We'll make him a follow-up appointment to see Dr. Ga in the office post discharge. DNP note has been reviewed, I agree with a documented findings and plan of care. Patient was seen and examined.
[2019-11-20 12:12] LABS: Glucose,Whole Blood 251 mg/dL (75-99)
[2019-11-20] MEDS ORDERED: INFLUENZA VACCINE (6 MOS+) 60 MCG/0.5 ML SYRINGE IM ONE ×2 (13:03→14:45)
[2019-11-20] MEDS ORDERED: metFORMIN 500 MG TAB PO SCH (17:30)
== END 2019-11-20 14:43 | disposition home or self-care (01) | DRG 247 ==
LOC: EC 18:21 → 3SCARD 20:07 → OBSVTOIN 11-18 13:00
PROVIDERS: ADMIT Internal Medicine; ATTEND Internal Medicine
PROC: 027034Z Dilation of Coronary Artery, One Artery with Drug-eluting Intraluminal Device, Percutaneous Approach (ICD-10-PCS; principal; 2019-11-18 11:09)
PROC: B2111ZZ Fluoroscopy of Multiple Coronary Arteries using Low Osmolar Contrast (ICD-10-PCS; principal; 2019-11-18 11:09)
PROC: 4A023N7 Measurement of Cardiac Sampling and Pressure, Left Heart, Percutaneous Approach (ICD-10-PCS; principal; 2019-11-18 11:09)
DX: I25.110 Atherosclerotic heart disease of native coronary artery with unstable angina pectoris (principal); I25.710 Atherosclerosis of autologous vein coronary artery bypass graft(s) with unstable angina pectoris; E11.22 Type 2 diabetes mellitus with diabetic chronic kidney disease; E11.42 Type 2 diabetes mellitus with diabetic polyneuropathy; I13.10 Hypertensive heart and chronic kidney disease without heart failure, with stage 1 through stage 4 chronic kidney disease, or unspecified chronic kidney disease; E78.5 Hyperlipidemia, unspecified; G47.33 Obstructive sleep apnea (adult) (pediatric); G89.29 Other chronic pain; I25.2 Old myocardial infarction; I25.5 Ischemic cardiomyopathy; I48.0 Paroxysmal atrial fibrillation; J44.9 Chronic obstructive pulmonary disease, unspecified; J45.20 Mild intermittent asthma, uncomplicated; N18.2 Chronic kidney disease, stage 2 (mild); R04.0 Epistaxis; M54.5 Low back pain; R31.9 Hematuria, unspecified; R79.89 Other specified abnormal findings of blood chemistry; Z79.01 Long term (current) use of anticoagulants; Z79.4 Long term (current) use of insulin; Z79.82 Long term (current) use of aspirin; Z79.899 Other long term (current) drug therapy; Z95.5 Presence of coronary angioplasty implant and graft; Z95.1 Presence of aortocoronary bypass graft; Z88.1 Allergy status to other antibiotic agents; Z91.048 Other nonmedicinal substance allergy status; Z86.718 Personal history of other venous thrombosis and embolism; Z87.891 Personal history of nicotine dependence; Z98.1 Arthrodesis status; Z86.14 Personal history of Methicillin resistant Staphylococcus aureus infection; Z99.89 Dependence on other enabling machines and devices; Z98.890 Other specified postprocedural states; Z87.19 Personal history of other diseases of the digestive system; Z82.49 Family history of ischemic heart disease and other diseases of the circulatory system; Z82.5 Family history of asthma and other chronic lower respiratory diseases; Z83.3 Family history of diabetes mellitus; Z82.61 Family history of arthritis
CPT/HCPCS: 36415; 71046; 80053; 80061; 83735; 84484; 85025; 85027; 85610; 85730; 90686; 93005; 93459; 96374; 96376; 99285

== ENCOUNTER 2020-09-21 11:32 | Emergency (ER) | payer MEDICARE ==
[2020-09-21 11:39] VITALS: BP 153/88; PULSE 75; RESP 18; TEMP 97.5
--- NOTE | 2020-09-21 12:05 | XR ---
EXAMINATION TYPE: XR wrist complete RT DATE OF EXAM: 09/21/2020 COMPARISON: NONE HISTORY: Pain TECHNIQUE: Four views submitted. FINDINGS: The osseous structures are intact. The joint spaces are preserved and there is no acute fracture or dislocation. Ossific or calcific density adjacent to the ulnar styloid appears chronic may be within the tendon sheath or related to previous trauma. IMPRESSION: 1. No definite acute fracture or dislocation if symptoms persist, follow-up study in 7 to 10 days wo uld be suggested. 2. Nonspecific calcification or ossification adjacent to the ulnar styloid could be evaluated with MR I.
--- NOTE | 2020-09-21 12:30 | ED ---
General Adult HPI - General Chief complaint: Extremity Injury, Lower Stated complaint: Rt Wrist Swelling Time Seen by Provider: 09/21/20 11:41 Source: patient Mode of arrival: ambulatory Limitations: no limitations - History of Present Illness Initial comments: 55-year-old male with a complicated past medical history presents to the emergency room for a chief complaint of right wrist pain. Patient developed pain to the elastic of the right wrist today. He noticed a red lump on the side of his right wrist. Patient states this was not hurting him yesterday. He denies fevers or chills. States he can move the wrist but is somewhat painful.Patient has no other complaints at this time including shortness of breath, chest pain, abdominal pain, nausea or vomiting, headache, or visual changes. - Related Data Home Medications Medication Instructions Recorded Confirmed Multivitamins, Thera [Multivitamin 1 tab PO DAILY 12/13/16 11/16/19 (formulary)] Furosemide [Lasix] 40 mg PO DAILY 11/09/19 11/16/19 Gabapentin [Neurontin] 600 mg PO BID 11/09/19 11/16/19 Losartan/Hydrochlorothiazide 1 tab PO DAILY 11/09/19 11/16/19 [Hyzaar 100-12.5 Tablet] Nitroglycerin Sl Tabs [Nitrostat] 0.4 mg SL Q5M PRN 11/09/19 11/16/19 cloNIDine HCL [Catapres] 0.1 mg PO BID 11/09/19 11/16/19 hydrALAZINE HCL [Apresoline] 50 mg PO BID 11/09/19 11/16/19 metFORMIN HCL [Glucophage] 1,000 mg PO AC-BID 11/09/19 11/16/19 Previous Rx's Medication Instructions Recorded Atorvastatin [Lipitor] 80 mg PO HS #30 tab 04/14/19 Metoprolol Tartrate [Lopressor] 100 mg PO BID #60 tab 04/14/19 Potassium Chloride ER [K-Dur 10] 10 meq PO DAILY #30 tab 04/14/19 INSULIN ASPART (NovoLOG) [NovoLOG 7 unit SQ AC-TID vial 11/11/19 (formulary)] Insulin Glargine,Hum.rec.anlog 23 unit SQ HS #0 11/11/19 [Basaglar Kwikpen U-100] Clopidogrel [Plavix] 75 mg PO DAILY tab 11/20/19 Isosorbide Mononitrate ER [Imdur] 120 mg PO DAILY #30 tab.er.24h 11/20/19 Ranolazine [Ranexa] 500 mg PO Q12HR #60 tab.er.12h 11/20/19 Rivaroxaban [Xarelto] 15 mg PO W/SUPPER tab 11/20/19 Cephalexin [Keflex] 500 mg PO Q6HR 7 Days #28 cap 09/21/20 Allergies Allergy/AdvReac Type Severity Reaction Status Date / Time adhesive tape Allergy Severe Rash/Hives Verified 09/21/20 11:36 vancomycin Allergy Mild Head Itches Verified 09/21/20 11:36 Review of Systems ROS Statement: Those systems with pertinent positive or pertinent negative responses have been documented in the HPI. ROS Other: All systems not noted in ROS Statement are negative. Past Medical History Past Medical History: Asthma, Coronary Artery Disease (CAD), Chest Pain / Angina, Diabetes Mellitus, Deep Vein Thrombosis (DVT), Hyperlipidemia, Hypertension, Myocardial Infarction (UT), Sleep Apnea/CPAP/BIPAP Additional Past Medical History / Comment(s): Obstructive sleep apnea CPAP, bronchitis, IDDM type II, DVT L leg, cellulitis L leg 2012 cellulitis L Arm 201 8, diabetic neuropathy affects feet and hands, chronic kidney disease stage II Last Myocardial Infarction Date:: 06/23/13 History of Any Multi-Drug Resistant Organisms: Acinetobacter (MDRO), MRSA Date of last positivie culture/infection: 08/2014 MDRO Source:: abdomen around navel Past Surgical History: Back Surgery, Coronary Bypass/CABG, Heart Catheterization, Heart Catheterization With Stent, Hernia Repair Additional Past Surgical History / Comment(s): Cardiac caths, PCI with stents (4total), 2006 CABG 6 vessels, spinal fusion L4-L5, fasciotomy left thigh, bilateral inguinal hernia repairs, I&D L forearm with dehisence then compartment syndrome with fasciotomy Left forearm - June 2016 Past Anesthesia/Blood Transfusion Reactions: No Reported Reaction Date of Last Stent Placement:: 08/28/15 Past Psychological History: No Psychological Hx Reported Smoking Status: Never smoker Past Alcohol Use History: None Reported Past Drug Use History: None Reported - Past Family History Brother(s) Additional Family Medical History / Comment(s): Patient has 1 brother and 1 sister with no major medical problems. Mother Family Medical History: Congestive Heart Failure (CHF), Diabetes Mellitus Additional Family Medical History / Comment(s): Mother at the age of 84 from with history of chronic renal disease stage. Father Family Medical History: COPD, Coronary Artery Disease (CAD), Myocardial Infarction (UT) Additional Family Medical History / Comment(s): Father of a [place] at the age of 60 yrs with history of COPD. Sister(s) Family Medical History: Rheumatoid Arthritis (RA) Additional Family Medical History / Comment(s): Patient has 1 sister with no major medical problems. General Exam Limitations: no limitations General appearance: alert, in no apparent distress Head exam: Present: atraumatic, normocephalic, normal inspection Eye exam: Present: normal appearance, PERRL, EOMI. Absent: scleral icterus, conjunctival injection, periorbital swelling ENT exam: Present: normal exam, mucous membranes moist Neck exam: Present: normal inspection, full ROM. Absent: tenderness, meningismus, lymphadenopathy Respiratory exam: Present: normal lung sounds bilaterally. Absent: respiratory distress, wheezes, rales, rhonchi, stridor Cardiovascular Exam: Present: regular rate, normal rhythm, normal heart sounds. Absent: systolic murmur, diastolic murmur, rubs, gallop, clicks Extremities exam: Present: tenderness (Tenderness to the ulnar aspect of the right wrist), normal capillary refill (Capillary refill less than 2 seconds, radial pulse 2+ right upper extremity), other (Patient has indurated nodule of the ulnar aspect of the right wrist. This is not fluctuant or consistent with abscess. There is some erythema which is likely secondary to inflammation.). Absent: full ROM (Patient has mildly limited flexion and extension of the right wrist to about 45. ), pedal edema, joint swelling, calf tenderness Course Vital Signs 09/21/20 11:36 Temperature 97.5 F L Pulse Rate 75 Respiratory 18 Rate Blood Pressure 153/88 O2 Sat by Pulse 98 Oximetry Medical Decision Making - Medical Decision Making Vitals are stable. Patient is afebrile. HPI physical exam as documented. No evidence for abscess. There is some erythema over nodule. This is likely inflammatory in nature. However we will treat patient with antibiotic out of precaution. We will treat his pain with Tylenol. Patient does have chronic kidney disease and therefore will not be able to take Motrin. X-ray of the right wrist shows no definite acute fracture or dislocation. There is a nonspecific calcification or ossification adjacent to the ulnar styloid that could be evaluated with MRI. This is where patient's pain is located. Patient will be referred to orthopedics. Strict return parameters such as fevers or spreading redness discussed. Disposition Clinical Impression: Wrist pain, right Narrative: Nonspecific calcification near ulnar styloid Disposition: HOME SELF-CARE Condition: Good Instructions (If sedation given, give patient instructions): Wrist Injury (ED) Additional Instructions: Please take antibiotic as directed. Take Tylenol for pain. Ice the area. Follow-up with orthopedics. If you have worsening symptoms such as fevers or spreading redness return to the emergency room Prescriptions: Cephalexin [Keflex] 500 mg PO Q6HR 7 Days #28 cap Is patient prescribed a controlled substance at d/c from ED?: No Referrals: Kelly Montesinos MD [Primary Care Provider] - 1-2 days Shaka Knutson DO [Doctor of Osteopathic Medicine] - 1-2 days Time of Disposition: 12:28
[2020-09-21] MEDS: MORPHINE SULFATE 4 MG/ML SYRINGE IM STA (12:50)
[2020-09-21] MEDS: ACET/COD 300 MG/30 MG STARTER PACK 6 TAB BTL PO STA (12:51)
[2020-09-21] MEDS: CEPHALEXIN 500MG STARTER PACK 4 CAP BTL PO STA (12:54)
== END 2020-09-21 13:00 | disposition home or self-care (01) ==
LOC: EC 11:32
DX: M25.531 Pain in right wrist (principal); R22.31 Localized swelling, mass and lump, right upper limb; I12.9 Hypertensive chronic kidney disease with stage 1 through stage 4 chronic kidney disease, or unspecified chronic kidney disease; E11.22 Type 2 diabetes mellitus with diabetic chronic kidney disease; N18.2 Chronic kidney disease, stage 2 (mild); E78.5 Hyperlipidemia, unspecified; I25.2 Old myocardial infarction; E11.40 Type 2 diabetes mellitus with diabetic neuropathy, unspecified; I25.10 Atherosclerotic heart disease of native coronary artery without angina pectoris; G47.33 Obstructive sleep apnea (adult) (pediatric); J45.909 Unspecified asthma, uncomplicated; Z86.718 Personal history of other venous thrombosis and embolism; Z79.02 Long term (current) use of antithrombotics/antiplatelets; Z79.4 Long term (current) use of insulin; Z79.899 Other long term (current) drug therapy; Z95.1 Presence of aortocoronary bypass graft; Z95.5 Presence of coronary angioplasty implant and graft
CPT/HCPCS: 96372; 99283

== ENCOUNTER 2020-12-15 14:04 | Emergency (ER) | payer MEDICARE ==
[2020-12-15 14:54] VITALS: BP 150/91; PULSE 110; RESP 15; TEMP 98.9
[2020-12-15] MEDS ORDERED: MORPHINE SULFATE 2 MG/ML SYRINGE IVP STA (15:28)
[2020-12-15 15:34] LABS: Glucose,Whole Blood 199 mg/dL (75-99)
[2020-12-15 15:57] LABS: Basophils # (A) 0.1 k/uL (0-0.2); Basophils % (A) 1 %; Eosinophils # (A) 0.1 k/uL (0-0.7); Eosinophils % (A) 1 %; HCT 52.8 % (39.0-53.0); HGB 18.1 gm/dL (13.0-17.5); Lymphocytes # (A) 0.8 k/uL (1.0-4.8); Lymphocytes % (A) 16 %; MCH 29.2 pg (25.0-35.0); MCHC 34.4 g/dL (31.0-37.0); Mean Platelet Volume 8.5; Monocytes # (A) 0.4 k/uL (0-1.0); Monocytes % (A) 8 %; Neutrophils # (A) 3.3 k/uL (1.3-7.7); Neutrophils % (A) 72 %; Platelet Count 120 k/uL (150-450); RBC 6.21 m/uL (4.30-5.90); RDW 12.8 % (11.5-15.5); WBC 4.6 k/uL (3.8-10.6)
--- NOTE | 2020-12-15 16:09 | XR ---
EXAMINATION TYPE: XR tibia fibula LT DATE OF EXAM: 12/15/2020 COMPARISON: 12/13/2016 HISTORY: Pain. Leg wound. TECHNIQUE: 3 views FINDINGS: There are surgical clips. Tibia and fibula appear intact. I see no fracture nor dislocation . There is no focal bone destruction. Ankle mortise is anatomic. IMPRESSION: No acute abnormality of the left tibia and fibula. No change.
[2020-12-15 16:11] LABS: ALT 47 U/L (4-49); AST 36 U/L (17-59); African American GFR (CKD) >90 (>60 ml/min/1.73 sqM); Albumin 4.4 g/dL (3.5-5.0); Alkaline Phosphatase 132 U/L (38-126); Anion Gap 11 mmol/L; Blood Urea Nitrogen 18 mg/dL (9-20); Calcium 9.1 mg/dL (8.4-10.2); Carbon Dioxide 23 mmol/L (22-30); Chloride 102 mmol/L (98-107); Glucose 225 mg/dL (74-99); Non-African American GFR(CKD) 86 (>60 ml/min/1.73 sqM); Potassium 4.1 mmol/L (3.5-5.1); Sodium 136 mmol/L (137-145); Total Bilirubin 0.7 mg/dL (0.2-1.3)
[2020-12-15 16:16] LABS: Appearance,Urine Clear (Clear); Bilirubin,Urine Negative (Negative); Blood,Urine Small (Negative); Color,Urine Yellow; Glucose,Urine (UA) 4+ (Negative); Granular Casts,Urine 1 /lpf (0); Hyaline Casts,Urine 15 /lpf (0-2); Ketones,Urine Trace (Negative); Leukocyte Esterase,Urine Negative (Negative); Mucus,Urine Rare /hpf; Nitrite,Urine Negative (Negative); Protein,Urine 3+ (Negative); RBC,Urine 1 /hpf (0-5); Specific Gravity,Urine 1.025 (1.001-1.035); Urobilinogen,Urine <2.0 mg/dL (<2.0); WBC,Urine 1 /hpf (0-5)
[2020-12-15] MEDS ORDERED: LIDOCAINE 1% INJ 10MG/ML (20 ML MDV) SQ ONE (16:21)
--- NOTE | 2020-12-15 17:20 | US ---
EXAMINATION TYPE: US extremity nonvasc mass LT DATE OF EXAM: 12/15/2020 COMPARISON: NONE CLINICAL HISTORY: left caballero abscess. Left caballero palpable, painful area x 1 week following a fall Left caballero: 4.4 x 1.0 x 2.6cm superficial complex fluid collection with peripheral vascularity seen a t patient's area of concern IMPRESSION: There is subcutaneous elongated fluid collection measuring 1 cm in thickness and consiste nt with hematoma or abscess.
--- NOTE | 2020-12-15 17:53 | ED ---
Lower Extremity Injury HPI - General Chief Complaint: Extremity Injury, Lower Stated Complaint: L leg sore Time Seen by Provider: 12/15/20 15:24 Source: patient, RN notes reviewed Mode of arrival: ambulatory Limitations: no limitations - History of Present Illness Initial Comments: Patient is a 55-year-old male that presents to emergency room complaining of left caballero lump/abscess with pain. He notes that he injured it approximately a month ago. He notes that it was doing fine but recently got swollen and painful. He notes that he has been out of his insulin for approximately 4 weeks due to cost and insurance issues. He notes he does try to follow-up with his primary care. He denied any other issues or complaints. He was otherwise well-appearing. He denied chest pain shortness of breath headache nausea vomiting diarrhea constipation fever fatigue chills. - Related Data Home Medications Medication Instructions Recorded Confirmed Multivitamins, Thera [Multivitamin 1 tab PO DAILY 12/13/16 12/15/20 (formulary)] Furosemide [Lasix] 40 mg PO DAILY 11/09/19 12/15/20 Gabapentin [Neurontin] 600 mg PO BID 11/09/19 12/15/20 Losartan/Hydrochlorothiazide 1 tab PO DAILY 11/09/19 12/15/20 [Hyzaar 100-12.5 Tablet] cloNIDine HCL [Catapres] 0.1 mg PO BID 11/09/19 12/15/20 hydrALAZINE HCL [Apresoline] 50 mg PO BID 11/09/19 12/15/20 metFORMIN HCL [Glucophage] 1,000 mg PO AC-BID 11/09/19 12/15/20 Ezetimibe [Zetia] 10 mg PO HS 12/15/20 12/15/20 INSULIN ASPART (NovoLOG) [NovoLOG 8 - 13 unit SQ AC-TID 12/15/20 12/15/20 (formulary)] Rivaroxaban [Xarelto] 15 mg PO DIRECTED 12/15/20 12/15/20 Previous Rx's Medication Instructions Recorded Atorvastatin [Lipitor] 80 mg PO HS #30 tab 04/14/19 Metoprolol Tartrate [Lopressor] 100 mg PO BID #60 tab 04/14/19 Potassium Chloride ER [K-Dur 10] 10 meq PO DAILY #30 tab 04/14/19 Insulin Glargine,Hum.rec.anlog 23 unit SQ HS #0 11/11/19 [Basaglar Kwikpen U-100] Clopidogrel [Plavix] 75 mg PO DAILY tab 11/20/19 Cephalexin [Keflex] 500 mg PO Q6HR #40 cap 12/15/20 Insulin Glargine,Hum.rec.anlog 23 unit SQ HS #10 pen 12/15/20 [Basaglar Kwikpen U-100] Insulin NPH Hum/Reg Insulin Hm 7 unit SQ AC-TID #10 ml 12/15/20 [NovoLIN 70-30 100 UNIT/ML VIAL] Sulfamethox-Tmp 800-160Mg [Bactrim 1 each PO Q12HR #20 tab 12/15/20 Ds] Allergies Allergy/AdvReac Type Severity Reaction Status Date / Time adhesive tape Allergy Severe Rash/Hives Verified 12/15/20 14:54 vancomycin Allergy Mild Head Itches Verified 12/15/20 14:54 Review of Systems ROS Statement: Those systems with pertinent positive or pertinent negative responses have been documented in the HPI. ROS Other: All systems not noted in ROS Statement are negative. Past Medical History Past Medical History: Asthma, Coronary Artery Disease (CAD), Chest Pain / Angina, Diabetes Mellitus, Deep Vein Thrombosis (DVT), Hyperlipidemia, Hypertension, Myocardial Infarction ([place]), Sleep Apnea/CPAP/BIPAP Additional Past Medical History / Comment(s): Obstructive sleep apnea CPAP, bronchitis, IDDM type II, DVT L leg, cellulitis L leg 2012 cellulitis L Arm 2017, diabetic neuropathy affects feet and hands, chronic kidney disease stage II Last Myocardial Infarction Date:: 06/23/13 History of Any Multi-Drug Resistant Organisms: Acinetobacter (MDRO), MRSA Date of last positivie culture/infection: 08/2014 MDRO Source:: abdomen around navel Past Surgical History: Back Surgery, Coronary Bypass/CABG, Heart Catheterization, Heart Catheterization With Stent, Hernia Repair Additional Past Surgical History / Comment(s): Cardiac caths, PCI with stents (4total), 2006 CABG 6 vessels, spinal fusion L4-L5, fasciotomy left thigh, bilateral inguinal hernia repairs, I&D L forearm with dehisence then compartment syndrome with fasciotomy Left forearm - June 2016 Past Anesthesia/Blood Transfusion Reactions: No Reported Reaction Date of Last Stent Placement:: 08/28/15 Past Psychological History: No Psychological Hx Reported Smoking Status: Never smoker Past Alcohol Use History: None Reported Past Drug Use History: None Reported - Past Family History Brother(s) Additional Family Medical History / Comment(s): Patient has 1 brother and 1 sister with no major medical problems. Mother Family Medical History: Congestive Heart Failure (CHF), Diabetes Mellitus Additional Family Medical History / Comment(s): Mother at the age of 84 from with history of chronic renal disease stage. Father Family Medical History: COPD, Coronary Artery Disease (CAD), Myocardial Infarction ([place]) Additional Family Medical History / Comment(s): Father of a [place] at the age of 60 yrs with history of COPD. Sister(s) Family Medical History: Rheumatoid Arthritis (RA) Additional Family Medical History / Comment(s): Patient has 1 sister with no major medical problems. General Exam Limitations: no limitations General appearance: alert, in no apparent distress Head exam: Present: atraumatic, normocephalic, normal inspection Eye exam: Present: normal appearance, PERRL, EOMI. Absent: scleral icterus, conjunctival injection, periorbital swelling ENT exam: Present: normal exam, mucous membranes moist Neck exam: Present: normal inspection Respiratory exam: Present: normal lung sounds bilaterally. Absent: respiratory distress, wheezes, rales, rhonchi, stridor Cardiovascular Exam: Present: regular rate, normal rhythm, normal heart sounds. Absent: systolic murmur, diastolic murmur, rubs, gallop, clicks GI/Abdominal exam: Present: soft, normal bowel sounds. Absent: distended, tenderness, guarding, rebound, rigid Extremities exam: Present: normal inspection, full ROM, normal capillary refill. Absent: tenderness, pedal edema, joint swelling, calf tenderness Neurological exam: Present: alert, oriented X3 Psychiatric exam: Present: normal affect, normal mood Skin exam: Present: warm, dry, intact, normal color. Absent: rash Expanded Type of lesion: Present: abscess (Left medial caballero measuring approximately 3 cm x 3 cm, fluctuant nonerythematous minimally tender.) Course Vital Signs 12/15/20 14:51 Temperature 98.9 F Pulse Rate 110 H Respiratory 15 Rate Blood Pressure 150/91 O2 Sat by Pulse 99 Oximetry Procedures - Incision & Drainage Consent Obtained: verbal consent Site: lower extremity (Left medial caballero) Size (cm): 3 Anesthetic Used: lidocaine 1% Amount (mLs): 8 I&D Cleaning Method: Alcohol Wipe Sterile Field Used?: Yes Scalpel Used: #11 Irrigation Performed?: Yes I&D Drainage Obtained: Pus, Blood Culture Obtained?: Yes Patient Tolerated Procedure: well, no complications Medical Decision Making - Medical Decision Making 55-year-old diabetic with left lower leg abscess. Basic labs, x-ray of the left lower extremity, or shot left lower extremity, 2 mg of morphine, lidocaine ordered. Labs unremarkable mildly elevated blood glucose. Patient will be sent prescriptions for insulin and antibiotics to pharmacy. Ultrasound shows a 1 cm abscess to the left caballero in the area of concern. Incision and drainage was performed. Patient tolerated well. Culture obtained. Case discussed with Dr. Shay, patient discharge home with follow-up primary care. - Lab Data Result diagrams: 12/15/20 15:46 12/15/20 15:46 Lab Results 12/15/20 12/15/20 12/15/20 Range/Units 15:31 15:46 15:46 WBC 4.6 (3.8-10.6) k/uL RBC 6.21 H (4.30-5.90) m/uL Hgb 18.1 H (13.0-17.5) gm/dL Hct 52.8 (39.0-53.0) % MCV 85.0 (80.0-100.0) fL MCH 29.2 (25.0-35.0) pg MCHC 34.4 (31.0-37.0) g/dL RDW 12.8 (11.5-15.5) % Plt Count 120 L (150-450) k/uL MPV 8.5 Neutrophils % 72 % Lymphocytes % 16 % Monocytes % 8 % Eosinophils % 1 % Basophils % 1 % Neutrophils # 3.3 (1.3-7.7) k/uL Lymphocytes # 0.8 L (1.0-4.8) k/uL Monocytes # 0.4 (0-1.0) k/uL Eosinophils # 0.1 (0-0.7) k/uL Basophils # 0.1 (0-0.2) k/uL Sodium (137-145) mmol/L Potassium (3.5-5.1) mmol/L Chloride (98-107) mmol/L Carbon Dioxide (22-30) mmol/L Anion Gap mmol/L BUN (9-20) mg/dL Creatinine (0.66-1.25) mg/dL Est GFR (CKD-EPI)AfAm (>60 ml/min/1.73 sqM) Est GFR (CKD-EPI)NonAf (>60 ml/min/1.73 sqM) Glucose (74-99) mg/dL POC Glucose (mg/dL) 199 H (75-99) mg/dL POC Glu Pan Devulcanizer ID Beverly Peter Calcium (8.4-10.2) mg/dL Total Bilirubin (0.2-1.3) mg/dL AST (17-59) U/L ALT (4-49) U/L Alkaline Phosphatase (38-126) U/L Total Protein (6.3-8.2) g/dL Albumin (3.5-5.0) g/dL Urine Color Yellow Urine Appearance Clear (Clear) Urine pH 6.0 (5.0-8.0) Ur Specific [place] 1.025 (1.001-1.035) Urine Protein 3+ H (Negative) Urine Glucose (UA) 4+ H (Negative) Urine Ketones Trace H (Negative) Urine Blood Small H (Negative) Urine Nitrite Negative (Negative) Urine Bilirubin Negative (Negative) Urine Urobilinogen <2.0 (<2.0) mg/dL Ur Leukocyte Esterase Negative (Negative) Urine RBC 1 (0-5) /hpf Urine WBC 1 (0-5) /hpf Hyaline Casts 15 H (0-2) /lpf Granular Casts 1 (0) /lpf Urine Mucus Rare H (None) /hpf 12/15/20 Range/Units 15:46 WBC (3.8-10.6) k/uL RBC (4.30-5.90) m/uL Hgb (13.0-17.5) gm/dL Hct (39.0-53.0) % MCV (80.0-100.0) fL MCH (25.0-35.0) pg MCHC (31.0-37.0) g/dL RDW (11.5-15.5) % Plt Count (150-450) k/uL MPV Neutrophils % % Lymphocytes % % Monocytes % % Eosinophils % % Basophils % % Neutrophils # (1.3-7.7) k/uL Lymphocytes # (1.0-4.8) k/uL Monocytes # (0-1.0) k/uL Eosinophils # (0-0.7) k/uL Basophils # (0-0.2) k/uL Sodium 136 L (137-145) mmol/L Potassium 4.1 (3.5-5.1) mmol/L Chloride 102 (98-107) mmol/L Carbon Dioxide 23 (22-30) mmol/L Anion Gap 11 mmol/L BUN 18 (9-20) mg/dL Creatinine 0.98 (0.66-1.25) mg/dL Est GFR (CKD-EPI)AfAm >90 (>60 ml/min/1.73 sqM) Est GFR (CKD-EPI)NonAf 86 (>60 ml/min/1.73 sqM) Glucose 225 H (74-99) mg/dL POC Glucose (mg/dL) (75-99) mg/dL POC Glu Pan Devulcanizer ID Calcium 9.1 (8.4-10.2) mg/dL Total Bilirubin 0.7 (0.2-1.3) mg/dL AST 36 (17-59) U/L ALT 47 (4-49) U/L Alkaline Phosphatase 132 H (38-126) U/L Total Protein 8.0 (6.3-8.2) g/dL Albumin 4.4 (3.5-5.0) g/dL Urine Color Urine Appearance (Clear) Urine pH (5.0-8.0) Ur Specific [place] (1.001-1.035) Urine Protein (Negative) Urine Glucose (UA) (Negative) Urine Ketones (Negative) Urine Blood (Negative) Urine Nitrite (Negative) Urine Bilirubin (Negative) Urine Urobilinogen (<2.0) mg/dL Ur Leukocyte Esterase (Negative) Urine RBC (0-5) /hpf Urine WBC (0-5) /hpf Hyaline Casts (0-2) /lpf Granular Casts (0) /lpf Urine Mucus (None) /hpf - Radiology Data Radiology results: report reviewed, image reviewed Ultrasound left lower extremity: There is subcutaneous elongated fluid collection measuring 1 cm in thickness and consistent with hematoma or abscess. Left tib-fib x-ray: No acute abnormality of the left tibia fibula. No change. Disposition Clinical Impression: Abscess of left leg Disposition: HOME SELF-CARE Condition: Stable Instructions (If sedation given, give patient instructions): Abscess Incision and Drainage (ED) Additional Instructions: Please return to the Emergency Department if symptoms worsen or any other concerns. Follow-up with primary care 1-2 days. Take medications as prescribed. Take antibiotics until complete. Keep area clean and dry. Prescriptions: Sulfamethox-Tmp 800-160Mg [Bactrim Ds] 1 each PO Q12HR #20 tab Insulin Glargine,Hum.rec.anlog [Basaglar Kwikpen U-100] 23 unit SQ HS #10 pen Cephalexin [Keflex] 500 mg PO Q6HR #40 cap Insulin NPH Hum/Reg Insulin Hm [NovoLIN 70-30 100 UNIT/ML VIAL] 7 unit SQ AC-TID #10 ml Is patient prescribed a controlled substance at d/c from ED?: No Referrals: Kelly Montesinos MD [Primary Care Provider] - 1-2 days Time of Disposition: 18:02
[2020-12-15] MEDS ORDERED: ACET/COD 300 MG/30 MG STARTER PACK 6 TAB BTL PO STA (18:50)
== END 2020-12-15 19:03 | disposition home or self-care (01) ==
LOC: EC 14:04
DX: L02.416 Cutaneous abscess of left lower limb (principal); E11.22 Type 2 diabetes mellitus with diabetic chronic kidney disease; E11.40 Type 2 diabetes mellitus with diabetic neuropathy, unspecified; I12.9 Hypertensive chronic kidney disease with stage 1 through stage 4 chronic kidney disease, or unspecified chronic kidney disease; N18.2 Chronic kidney disease, stage 2 (mild); I25.2 Old myocardial infarction; I25.10 Atherosclerotic heart disease of native coronary artery without angina pectoris; J45.909 Unspecified asthma, uncomplicated; E78.5 Hyperlipidemia, unspecified; Z79.02 Long term (current) use of antithrombotics/antiplatelets; Z79.4 Long term (current) use of insulin; Z79.899 Other long term (current) drug therapy; Z86.718 Personal history of other venous thrombosis and embolism; Z95.1 Presence of aortocoronary bypass graft; Z83.3 Family history of diabetes mellitus; Z82.49 Family history of ischemic heart disease and other diseases of the circulatory system
CPT/HCPCS: 36415; 80053; 85025; 81001; 87070; 87205; 73590; 76882; 10060; 99284; 96374; J2001; J2270

== ENCOUNTER 2021-10-30 12:43 | Emergency (ER) | payer MEDICARE ==
[2021-10-30 13:17] VITALS: RESP 18; TEMP 98.3
--- NOTE | 2021-10-30 14:25 | XR ---
EXAMINATION TYPE: XR KUB DATE OF EXAM: 10/30/2021 2:20 PM CLINICAL HISTORY: Abdominal pain. Right lower back pain. TECHNIQUE: Two Upright KUB images of the abdomen are obtained. COMPARISON: None. FINDINGS: Gas seen in nondistended stomach. Scattered gas is seen in non-distended small bowel loops. Gas and fecal material is seen in non-distended colon. Surgical changes lumbosacral junction is pres ent. Overlying sternal wires and mediastinal clips are partially imaged. Epicardial pacer wires are p artially imaged. No free air. IMPRESSION: Overall nonobstructive bowel gas pattern.
[2021-10-30 14:39] LABS: Appearance,Urine Clear (Clear); Bilirubin,Urine Negative (Negative); Blood,Urine Small (Negative); Color,Urine Yellow; Glucose,Urine (UA) 4+ (Negative); Ketones,Urine Negative (Negative); Leukocyte Esterase,Urine Negative (Negative); Nitrite,Urine Negative (Negative); PH, Urine 6.5 (5.0-8.0); Protein,Urine 3+ (Negative); RBC,Urine 4 /hpf (0-5); Specific Gravity,Urine 1.024 (1.001-1.035); Squamous Epithelial Cell,Urine <1 /hpf (0-4); Urobilinogen,Urine <2.0 mg/dL (<2.0); WBC,Urine 2 /hpf (0-5)
[2021-10-30 14:52] LABS: Basophils # (A) 0.1 k/uL (0-0.2); Basophils % (A) 1 %; Eosinophils # (A) 0.1 k/uL (0-0.7); Eosinophils % (A) 1 %; HCT 51.9 % (39.0-53.0); HGB 17.1 gm/dL (13.0-17.5); Lymphocytes # (A) 0.5 k/uL (1.0-4.8); Lymphocytes % (A) 7 %; MCH 27.6 pg (25.0-35.0); MCHC 32.9 g/dL (31.0-37.0); MCV 83.9 fL (80.0-100.0); Mean Platelet Volume 8.2; Monocytes # (A) 0.8 k/uL (0-1.0); Monocytes % (A) 10 %; Neutrophils # (A) 5.7 k/uL (1.3-7.7); Neutrophils % (A) 77 %; Platelet Count 167 k/uL (150-450); RBC 6.19 m/uL (4.30-5.90); RDW 13.7 % (11.5-15.5); WBC 7.4 k/uL (3.8-10.6)
[2021-10-30] MEDS ORDERED: MORPHINE SULFATE 4 MG/ML SYRINGE IVP STA (14:59)
[2021-10-30 15:01] LABS: Albumin 4.3 g/dL (3.5-5.0); Potassium 3.4 mmol/L (3.5-5.1); Total Bilirubin 1.2 mg/dL (0.2-1.3); Total Protein 7.5 g/dL (6.3-8.2)
[2021-10-30] MEDS ORDERED: SODIUM CHLORIDE 0.9% 1,000 ML IV ONE (15:05)
--- NOTE | 2021-10-30 15:51 | CT ---
EXAMINATION TYPE: CT abdomen pelvis w con DATE OF EXAM: 10/30/2021 COMPARISON: None. HISTORY: Right sided abdominal pain. CT DLP: 789 mGycm, Automated Exposure Control for Dose Reduction was Utilized. CONTRAST: CT scan of the abdomen and pelvis is performed without oral and with IV Contrast, patient injected wi th 100 mL of Isovue 300. FINDINGS: LUNG BASES: No significant abnormality is appreciated. LIVER/GB: Visualized liver heterogeneously hypodense consistent with mild diffuse fatty infiltration. No biliary dilatation is seen. PANCREAS: No significant abnormality is seen. SPLEEN: Mild splenomegaly at 14.2 cm long axis axial image 23. ADRENALS: No significant abnormality is seen. KIDNEYS: Symmetric cortical medullary uptake and excretion without hydronephrosis seen bilaterally. T here is 1.0 cm simple appearing thin-walled cyst laterally mid pole of the left kidney delayed axial image 33 is incidentally noted. BOWEL: No suspicious small or large bowel dilatation. Slightly suboptimal evaluation without enteri c contrast. Appendix within normal limits from posterior aspect of cecum. PROSTATE/SEMINAL VESICLES: Prostate gland upper limits of normal in size. LYMPH NODES: No greater than 1cm abdominal or pelvic lymph nodes are appreciated. OSSEOUS STRUCTURES: Post surgical change lumbosacral junction with posterior interpedicular rods. 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 Fairly moderate mixed plaque of the aorta extends into branch vessels. IMPRESSION: No significant acute finding is seen to account for patient's clinical symptoms of right -sided pain.
[2021-10-30] MEDS ORDERED: INSULIN REGULAR 100 UNIT/ML VIAL (IM/SQ) SQ ONE (16:38)
[2021-10-30] MEDS ORDERED: HYDROmorphone 1 MG/ML 1 ML SYRINGE IVP STA (16:40)
--- NOTE | 2021-10-30 16:48 | ED ---
Abdominal Pain HPI - General Chief Complaint: Abdominal Pain Stated Complaint: abd pain Time Seen by Provider: 10/30/21 14:30 Source: patient Mode of arrival: ambulatory Limitations: no limitations - History of Present Illness Initial Comments: 56-year-old male with past medical history of asthma, diabetes, hypertension who presents emergency Department with right flank pain. States the pain has been going on for the past 4 days. 2 days ago the patient noted that he had vesicular rash to the right flank. He has been putting calamine lotion to the area with minimal improvement. He denies any hematuria, dysuria or difficulty voiding. No history of kidney stones. Denies any changes in his bowel habits. No chest pain or shortness of breath. No fevers, chills or cough. Denies any testicular pain or swelling. No other alleviating, precipitating or modifying factors - Related Data Home Medications Medication Instructions Recorded Confirmed Multivitamins, Thera [Multivitamin 1 tab PO DAILY 12/13/16 12/15/20 (formulary)] Furosemide [Lasix] 40 mg PO DAILY 11/09/19 12/15/20 Gabapentin [Neurontin] 600 mg PO BID 11/09/19 12/15/20 Losartan/Hydrochlorothiazide 1 tab PO DAILY 11/09/19 12/15/20 [Hyzaar 100-12.5 Tablet] cloNIDine HCL [Catapres] 0.1 mg PO BID 11/09/19 12/15/20 hydrALAZINE HCL [Apresoline] 50 mg PO BID 11/09/19 12/15/20 metFORMIN HCL [Glucophage] 1,000 mg PO AC-BID 11/09/19 12/15/20 Ezetimibe [Zetia] 10 mg PO HS 12/15/20 12/15/20 INSULIN ASPART (NovoLOG) [NovoLOG 8 - 13 unit SQ AC-TID 12/15/20 12/15/20 (formulary)] Rivaroxaban [Xarelto] 15 mg PO DIRECTED 12/15/20 12/15/20 Previous Rx's Medication Instructions Recorded Atorvastatin [Lipitor] 80 mg PO HS #30 tab 04/14/19 Metoprolol Tartrate [Lopressor] 100 mg PO BID #60 tab 04/14/19 Potassium Chloride ER [K-Dur 10] 10 meq PO DAILY #30 tab 02/21/20 Insulin Glargine,Hum.rec.anlog 23 unit SQ HS #0 11/11/19 [Basaglar Kwikpen U-100] Clopidogrel [Plavix] 75 mg PO DAILY tab 11/20/19 Cephalexin [Keflex] 500 mg PO Q6HR #40 cap 12/15/20 Insulin Glargine,Hum.rec.anlog 23 unit SQ HS #10 pen 12/15/20 [Basaglar Kwikpen U-100] Insulin NPH Hum/Reg Insulin Hm 7 unit SQ AC-TID #10 ml 12/15/20 [NovoLIN 70-30 100 UNIT/ML VIAL] Sulfamethox-Tmp 800-160Mg [Bactrim 1 each PO Q12HR #20 tab 12/15/20 Ds] Acyclovir [Zovirax] 800 mg PO 5XD #35 tab 10/30/21 Gabapentin [Neurontin] 600 mg PO BID #12 cap 10/30/21 HYDROcodone/APAP 7.5-325MG [[place] 1 tab PO Q6HR PRN 3 Days #12 tab 10/30/21 7.5-325] Lidocaine 5% Patch [Lidoderm] 1 patch TOPICAL DAILY #20 patch 10/30/21 Allergies Allergy/AdvReac Type Severity Reaction Status Date / Time adhesive tape Allergy Severe Rash/Hives Verified 10/30/21 13:18 vancomycin Allergy Mild Head Itches Verified 10/30/21 13:18 Review of Systems ROS Statement: Those systems with pertinent positive or pertinent negative responses have been documented in the HPI. ROS Other: All systems not noted in ROS Statement are negative. Past Medical History Past Medical History: Asthma, Coronary Artery Disease (CAD), Chest Pain / Angina, Diabetes Mellitus, Deep Vein Thrombosis (DVT), Hyperlipidemia, Hypertension, Myocardial Infarction (CA), Sleep Apnea/CPAP/BIPAP Additional Past Medical History / Comment(s): Obstructive sleep apnea CPAP, bronchitis, IDDM type II, DVT L leg, cellulitis L leg 2012 cellulitis L Arm 2017, diabetic neuropathy affects feet and hands, chronic kidney disease stage II Last Myocardial Infarction Date:: 06/23/13 History of Any Multi-Drug Resistant Organisms: Acinetobacter (MDRO), MRSA Date of last positivie culture/infection: 08/2014 MDRO Source:: abdomen around navel Past Surgical History: Back Surgery, Coronary Bypass/CABG, Heart Catheterization, Heart Catheterization With Stent, Hernia Repair Additional Past Surgical History / Comment(s): Cardiac caths, PCI with stents (4total), 2006 CABG 6 vessels, spinal fusion L4-L5, fasciotomy left thigh, bilateral inguinal hernia repairs, I&D L forearm with dehisence then compartment syndrome with fasciotomy Left forearm - June 2016 Past Anesthesia/Blood Transfusion Reactions: No Reported Reaction Date of Last Stent Placement:: 08/28/15 Past Psychological History: No Psychological Hx Reported Smoking Status: Never smoker Past Alcohol Use History: None Reported Past Drug Use History: None Reported - Past Family History Brother(s) Additional Family Medical History / Comment(s): Patient has 1 brother and 1 sister with no major medical problems. Mother Family Medical History: Congestive Heart Failure (CHF), Diabetes Mellitus Additional Family Medical History / Comment(s): Mother at the age of 84 from with history of chronic renal disease stage. Father Family Medical History: COPD, Coronary Artery Disease (CAD), Myocardial Infarction (CA) Additional Family Medical History / Comment(s): Father of a CA at the age of 60 yrs with history of COPD. Sister(s) Family Medical History: Rheumatoid Arthritis (RA) Additional Family Medical History / Comment(s): Patient has 1 sister with no major medical problems. General Exam Limitations: no limitations General appearance: alert, in no apparent distress Head exam: Present: atraumatic, normocephalic, normal inspection Eye exam: Present: normal appearance, PERRL, EOMI. Absent: scleral icterus, conjunctival injection, periorbital swelling ENT exam: Present: normal exam, mucous membranes moist Neck exam: Present: normal inspection. Absent: tenderness, meningismus, lymphadenopathy Respiratory exam: Present: normal lung sounds bilaterally. Absent: respiratory distress, wheezes, rales, rhonchi, stridor Cardiovascular Exam: Present: regular rate, normal rhythm, normal heart sounds. Absent: systolic murmur, diastolic murmur, rubs, gallop, clicks GI/Abdominal exam: Present: soft, normal bowel sounds. Absent: distended, tenderness, guarding, rebound, rigid Extremities exam: Present: normal inspection, full ROM, normal capillary refill. Absent: tenderness, pedal edema, joint swelling, calf tenderness Back exam: Present: CVA tenderness (R) (overlying vesicular rash that does not cross midline) Neurological exam: Present: alert, oriented X3, CN II-XII intact Psychiatric exam: Present: normal affect, normal mood Skin exam: Present: warm, dry, intact, normal color. Absent: rash Course Vital Signs 10/30/21 10/30/21 13:13 17:48 Temperature 98.3 F Pulse Rate 83 80 Respiratory 18 18 Rate Blood Pressure 179/109 152/98 O2 Sat by Pulse 98 98 Oximetry Medical Decision Making - Medical Decision Making On arrival patient was placed into hallway 26. A thorough history and physical exam is performed. Rash is consistent with shingles. Patient is concerned for other etiology and therefore further workup is obtained. Laboratory studies are conducted. Glucose is 406. Lipase 903. KUB demonstrated no obstructive process. CT abdomen and pelvis demonstrates no acute significant finding. Patient was given morphine for pain control and does have improvement in his pain. Discussed that his glucose is high and patient states that he has not been taking his medications as he has not been to see his primary care doctor. He was given 15 units of insulin, liter bolus of normal saline. Patient states that the medication did help his pain however it was wearing off and therefore doesn't the medication is ordered. Patient will be discharged home on acyclovir, [place] Lidoderm patches. Patient is also requesting a refill of his gabapentin for which I did give him 3 days worth of medication. Instructed to call his primary care doctor and make an appointment within 2-4 days. Return to the emergency room for any new or worsening symptoms. Patient is agreeable to this he was discharged home in stable condition - Lab Data Result diagrams: 10/30/21 14:32 10/30/21 14:32 Lab Results 10/30/21 10/30/21 10/30/21 Range/Units 13:35 14:32 14:32 WBC 7.4 (3.8-10.6) k/uL RBC 6.19 H (4.30-5.90) m/uL Hgb 17.1 (13.0-17.5) gm/dL Hct 51.9 (39.0-53.0) % MCV 83.9 (80.0-100.0) fL MCH 27.6 (25.0-35.0) pg MCHC 32.9 (31.0-37.0) g/dL RDW 13.7 (11.5-15.5) % Plt Count 167 (150-450) k/uL MPV 8.2 Neutrophils % 77 % Lymphocytes % 7 % Monocytes % 10 % Eosinophils % 1 % Basophils % 1 % Neutrophils # 5.7 (1.3-7.7) k/uL Lymphocytes # 0.5 L (1.0-4.8) k/uL Monocytes # 0.8 (0-1.0) k/uL Eosinophils # 0.1 (0-0.7) k/uL Basophils # 0.1 (0-0.2) k/uL Sodium 132 L (137-145) mmol/L Potassium 3.4 L (3.5-5.1) mmol/L Chloride 90 L (98-107) mmol/L Carbon Dioxide 27 (22-30) mmol/L Anion Gap 15 mmol/L BUN 25 H (9-20) mg/dL Creatinine 1.20 (0.66-1.25) mg/dL Est GFR (CKD-EPI)AfAm 77 (>60 ml/min/1.73 sqM) Est GFR (CKD-EPI)NonAf 66 (>60 ml/min/1.73 sqM) Glucose 406 H (74-99) mg/dL Calcium 9.0 (8.4-10.2) mg/dL Total Bilirubin 1.2 (0.2-1.3) mg/dL AST 28 (17-59) U/L ALT 34 (4-49) U/L Alkaline Phosphatase 145 H (38-126) U/L Total Protein 7.5 (6.3-8.2) g/dL Albumin 4.3 (3.5-5.0) g/dL Amylase 71 (30-110) U/L Lipase 903 H (23-300) U/L Urine Color Yellow Urine Appearance Clear (Clear) Urine pH 6.5 (5.0-8.0) Ur Specific [place] 1.024 (1.001-1.035) Urine Protein 3+ H (Negative) Urine Glucose (UA) 4+ H (Negative) Urine Ketones Negative (Negative) Urine Blood Small H (Negative) Urine Nitrite Negative (Negative) Urine Bilirubin Negative (Negative) Urine Urobilinogen <2.0 (<2.0) mg/dL Ur Leukocyte Esterase Negative (Negative) Urine RBC 4 (0-5) /hpf Urine WBC 2 (0-5) /hpf Ur Squamous Epith Cells <1 (0-4) /hpf Disposition Clinical Impression: Right flank pain, Hyperglycemia, Shingles, Hypertension Disposition: HOME SELF-CARE Condition: Stable Instructions (If sedation given, give patient instructions): Shingles (ED) Additional Instructions: Please call and make an appointment with your primary care doctor in 2-4 days. Take the medications I prescribed as directed and return for any new or worsening symptoms Prescriptions: Lidocaine 5% Patch [Lidoderm] 1 patch TOPICAL DAILY #20 patch Gabapentin [Neurontin] 600 mg PO BID #12 cap HYDROcodone/APAP 7.5-325MG [[place] 7.5-325] 1 tab PO Q6HR PRN 3 Days #12 tab PRN Reason: Pain Acyclovir [Zovirax] 800 mg PO 5XD #35 tab Is patient prescribed a controlled substance at d/c from ED?: Yes When asked, does pt state using other controlled substances?: No If prescribed controlled substance>3 days was MAPS reviewed?: Prescribed <3 Days Referrals: Kelly Montesinos MD [Primary Care Provider] - 1-2 days Time of Disposition: 16:47
[2021-10-30 18:01] VITALS: BP 152/98; PULSE 80
== END 2021-10-30 17:48 | disposition home or self-care (01) ==
LOC: EC 12:43
DX: R73.9 Hyperglycemia, unspecified (principal); B02.9 Zoster without complications; R10.9 Unspecified abdominal pain; J45.909 Unspecified asthma, uncomplicated; E78.5 Hyperlipidemia, unspecified; I10 Essential (primary) hypertension; I25.2 Old myocardial infarction; Z91.048 Other nonmedicinal substance allergy status; Z88.1 Allergy status to other antibiotic agents
CPT/HCPCS: 36415; 80053; 82150; 83690; 85025; 81001; 74018; 74177; 99284; 96374; 96375; 96361; J2270; J1170; Q9967

== ENCOUNTER 2022-03-09 11:57 | Inpatient (IN) | payer MEDICARE ==
[2022-03-09 14:24] LABS: ALT 20 U/L (4-49); AST 21 U/L (17-59); African American GFR (CKD) >90 (>60 ml/min/1.73 sqM); Albumin 3.8 g/dL (3.5-5.0); Alkaline Phosphatase 113 U/L (38-126); Anion Gap 10 mmol/L; Blood Urea Nitrogen 15 mg/dL (9-20); Calcium 8.7 mg/dL (8.4-10.2); Carbon Dioxide 29 mmol/L (22-30); Chloride 98 mmol/L (98-107); Glucose 206 mg/dL (74-99); Non-African American GFR(CKD) 89 (>60 ml/min/1.73 sqM); Potassium 3.2 mmol/L (3.5-5.1); Sodium 137 mmol/L (137-145); Total Bilirubin 1.5 mg/dL (0.2-1.3); Total Protein 7.1 g/dL (6.3-8.2)
--- NOTE | 2022-03-09 14:44 | XR ---
EXAMINATION TYPE: XR chest 2V DATE OF EXAM: 03/09/2022 COMPARISON: 11/16/2019 TECHNIQUE: PA and lateral views submitted. HISTORY: Cough FINDINGS: The lungs are clear and there is no pneumothorax, pleural effusion, or focal pneumonia. There is enl arged and is postoperative change. Hyperinflation suggests COPD. Epicardial lead noted. Coronary sten ting noted. Hypertrophic and degenerative changes spine.. Osseous structures demonstrate hypertrophic and degenerative changes of the spine. IMPRESSION: 1. No acute process. Correlate for cardiomegaly and COPD.
[2022-03-09 15:02] LABS: Basophils % (A) 0 %; Eosinophils # (A) 0.1 k/uL (0-0.7); Eosinophils % (A) 1 %; HCT 27.6 % (39.0-53.0); HGB 9.5 gm/dL (13.0-17.5); Lymphocytes # (A) 0.3 k/uL (1.0-4.8); Lymphocytes % (A) 7 %; MCH 28.2 pg (25.0-35.0); MCHC 34.4 g/dL (31.0-37.0); Mean Platelet Volume 8.5; Monocytes # (A) 0.6 k/uL (0-1.0); Monocytes % (A) 13 %; Neutrophils # (A) 3.2 k/uL (1.3-7.7); Neutrophils % (A) 76 %; Platelet Count 109 k/uL (150-450); RBC 3.37 m/uL (4.30-5.90); RDW 13.4 % (11.5-15.5); WBC 4.3 k/uL (3.8-10.6)
[2022-03-09] MEDS ORDERED: IPRATROPIUM-ALBUTEROL 3 ML NEB INHALATION STA (15:45)
[2022-03-09] MEDS ORDERED: hydrALAZINE HCL 20 MG/ML 1 ML VIAL IVP STA (15:45)
[2022-03-09] MEDS ORDERED: NITROGLYCERIN SL TABS 0.4 MG TAB SUBLINGUAL PRN (15:55)
--- NOTE | 2022-03-09 15:55 | ED ---
General Adult HPI - General Chief complaint: Upper Respiratory Infection Stated complaint: cough, congestion Time Seen by Provider: 03/09/22 14:28 Source: patient, RN notes reviewed, old records reviewed Mode of arrival: ambulatory - History of Present Illness Initial comments: This is a 56-year-old male who presents emergency Department with a past medical history significant for bypass surgery. Patient comes in today complaining of a four-day history of difficulty breathing shortness of breath. Patient states he occasionally has some sharp pain only when he coughs so. Patient states she has been brought up some sputum. Patient denies any fever chills. Patient states he can hear himself wheezing. Patient denies any abdominal pain patient denies nausea vomiting. Patient denies any lightheadedness or dizziness. Patient states over the last couple of weeks he has been feeling weaker and weaker. Patient denies any black or bloody stools. - Related Data Home Medications Medication Instructions Recorded Confirmed Multivitamins, Thera [Multivitamin 1 tab PO DAILY 12/13/16 12/15/20 (formulary)] Furosemide [Lasix] 40 mg PO DAILY 11/09/19 12/15/20 Gabapentin [Neurontin] 600 mg PO BID 11/09/19 12/15/20 Losartan/Hydrochlorothiazide 1 tab PO DAILY 11/09/19 12/15/20 [Hyzaar 100-12.5 Tablet] cloNIDine HCL [Catapres] 0.1 mg PO BID 11/09/19 12/15/20 hydrALAZINE HCL [Apresoline] 50 mg PO BID 11/09/19 12/15/20 metFORMIN HCL [Glucophage] 1,000 mg PO AC-BID 11/09/19 12/15/20 Ezetimibe [Zetia] 10 mg PO HS 12/15/20 12/15/20 INSULIN ASPART (NovoLOG) [NovoLOG 8 - 13 unit SQ AC-TID 12/15/20 12/15/20 (formulary)] Rivaroxaban [Xarelto] 15 mg PO DIRECTED 12/15/20 12/15/20 Previous Rx's Medication Instructions Recorded Atorvastatin [Lipitor] 80 mg PO HS #30 tab 04/14/19 Metoprolol Tartrate [Lopressor] 100 mg PO BID #60 tab 04/14/19 Potassium Chloride ER [K-Dur 10] 10 meq PO DAILY #30 tab 04/14/19 Insulin Glargine,Hum.rec.anlog 23 unit SQ HS #0 11/11/19 [Basaglar Kwikpen U-100] Clopidogrel [Plavix] 75 mg PO DAILY tab 11/20/19 Cephalexin [Keflex] 500 mg PO Q6HR #40 cap 12/15/20 Insulin Glargine,Hum.rec.anlog 23 unit SQ HS #10 pen 12/15/20 [Basaglar Kwikpen U-100] Insulin NPH Hum/Reg Insulin Hm 7 unit SQ AC-TID #10 ml 12/15/20 [NovoLIN 70-30 100 UNIT/ML VIAL] Sulfamethox-Tmp 800-160Mg [Bactrim 1 each PO Q12HR #20 tab 12/15/20 Ds] Acyclovir [Zovirax] 800 mg PO 5XD #35 tab 10/30/21 Gabapentin [Neurontin] 600 mg PO BID #12 cap 10/30/21 HYDROcodone/APAP 7.5-325MG [Yreka 1 tab PO Q6HR PRN 3 Days #12 tab 10/30/21 7.5-325] Lidocaine 5% Patch [Lidoderm] 1 patch TOPICAL DAILY #20 patch 10/30/21 Allergies Allergy/AdvReac Type Severity Reaction Status Date / Time adhesive tape Allergy Severe Rash/Hives Verified 03/09/22 13:37 vancomycin Allergy Mild Head Itches Verified 03/09/22 13:37 Review of Systems ROS Statement: Those systems with pertinent positive or pertinent negative responses have been documented in the HPI. ROS Other: All systems not noted in ROS Statement are negative. Past Medical History Past Medical History: Asthma, Coronary Artery Disease (CAD), Chest Pain / Angina, Diabetes Mellitus, Deep Vein Thrombosis (DVT), Hyperlipidemia, Hypertension, Myocardial Infarction ([place]), Sleep Apnea/CPAP/BIPAP Additional Past Medical History / Comment(s): Obstructive sleep apnea CPAP, bronchitis, IDDM type II, DVT L leg, cellulitis L leg 2013 cellulitis L Arm 2018, diabetic neuropathy affects feet and hands, chronic kidney disease stage II Last Myocardial Infarction Date:: 06/23/13 History of Any Multi-Drug Resistant Organisms: Acinetobacter (MDRO), MRSA Date of last positivie culture/infection: 08/2014 MDRO Source:: abdomen around navel Past Surgical History: Back Surgery, Coronary Bypass/CABG, Heart Cathete rization, Heart Catheterization With Stent, Hernia Repair Additional Past Surgical History / Comment(s): Cardiac caths, PCI with stents (4total), 2006 CABG 6 vessels, spinal fusion L4-L5, fasciotomy left thigh, bilateral inguinal hernia repairs, I&D L forearm with dehisence then compartment syndrome with fasciotomy Left forearm - June 2016 Past Anesthesia/Blood Transfusion Reactions: No Reported Reaction Date of Last Stent Placement:: 08/28/15 Past Psychological History: No Psychological Hx Reported Smoking Status: Never smoker Past Alcohol Use History: None Reported Past Drug Use History: None Reported - Past Family History Brother(s) Additional Family Medical History / Comment(s): Patient has 1 brother and 1 sister with no major medical problems. Mother Family Medical History: Congestive Heart Failure (CHF), Diabetes Mellitus Additional Family Medical History / Comment(s): Mother at the age of 84 from with history of chronic renal disease stage. Father Family Medical History: COPD, Coronary Artery Disease (CAD), Myocardial Infarction ([place]) Additional Family Medical History / Comment(s): Father of a [place] at the age of 60 yrs with history of COPD. Sister(s) Family Medical History: Rheumatoid Arthritis (RA) Additional Family Medical History / Comment(s): Patient has 1 sister with no major medical problems. General Exam - General Exam Comments Initial Comments: GENERAL: Patient is well-developed and well-nourished. Patient is nontoxic and well- hydrated and is in mild distress. ENT: Neck is soft and supple. No significant lymphadenopathy is noted. Oropharynx is clear. Moist mucous membranes. Neck has full range of motion without eliciting any pain. EYES: The sclera were anicteric and conjunctiva were pink and moist. Extraocular movements were intact and pupils were equal round and reactive to light. Eyelids were unremarkable. PULMONARY: Patient has diffuse expiratory wheezing CARDIOVASCULAR: There is a regular rate and rhythm without any murmurs gallops or rubs. ABDOMEN: Soft and nontender with normal bowel sounds. SKIN: Skin is clear with no lesions or rashes and otherwise unremarkable. NEUROLOGIC: Patient is alert and oriented x3. Cranial nerves II through XII are grossly intact. Motor and sensory are also intact. Normal speech, volume and content. Symmetrical smile. MUSCULOSKELETAL: Normal extremities with adequate strength and full range of motion. LYMPHATICS: No significant lymphadenopathy is noted PSYCHIATRIC: Normal psychiatric evaluation. Course Vital Signs 03/09/22 03/09/22 13:32 15:00 Temperature 99.8 F H Pulse Rate 98 96 Respiratory 20 22 Rate Blood Pressure 205/116 185/123 O2 Sat by Pulse 96 Oximetry Medical Decision Making - Medical Decision Making EKG shows atrial fibrillation at 92 bpm QRS is under QT interval 398 QTC is 448. Patient's EKG showed T-wave inversions in V5 and V6 as well as inferior leads. Patient also has Q waves in 1 and aVL Was pt. sent in by a medical professional or institution (, PA, COMPLAINT SPECIALIST, urgent care, hospital, or long-term...) When possible be specific @ -No Did you speak to anyone other than the patient for history (EMS, parent, family, police, friend...)? What history was obtained from this source @ -No Did you review nursing and triage notes (agree or disagree)? Why? @ -I reviewed and agree with nursing and triage notes Were old charts reviewed (outside hosp., previous admission, EMS record, old EKG, old radiological studies, urgent care reports/EKG's, long-term records)? Report findings @ -I reviewed old lab work for this patient. Differential Diagnosis (chest pain, altered mental status, abdominal pain women, abdominal pain men, vaginal bleeding, weakness, fever, dyspnea, syncope, headache, dizziness, GI bleed, back pain, seizure, CVA, palpatations, mental health)? @ -Differential Dyspnea: Coronary syndrome, arrhythmia, tamponade, asthma, COPD, pulmonary embolism, pneumonia, pneumothorax, pulmonary effusion, anaphylaxis, diabetic ketoacidosis, flailed chest, pulmonary contusion, diaphragmatic rupture, anemia, neuromuscular, this is not meant to be an all-inclusive list. EKG interpreted by me (3pts min.). @ -As above X-rays interpreted by me (1pt min.). @ -Chest x-ray is interpreted by myself shows no acute abnormality CT interpreted by me (1pt min.). @ -None done U/S interpreted by me (1pt. min.). @ -None done What testing was considered but not performed or refused? (CT, X-rays, U/S, labs)? Why? @ -None What meds were considered but not given or refused? Why? @ -None Did you discuss the management of the patient with other professionals (professionals i.e. Dr., PA, COMPLAINT SPECIALIST, lab, RT, psych nurse, social service technician, ampoule filler, teacher, chief accounting officer, rehabilitation caseworker)? Give summary @ -No Was smoking cessation discussed for >3mins.? @ -No Was critical care preformed (if so, how long)? @ -No Were there social determinants of health that impacted care today? How? (Homelessness, low income, unemployed, alcoholism, drug addiction, transportation, low edu. Level, literacy, decrease access to med. care, detention, rehab)? @ -No Was there de-escalation of care discussed even if they declined (Discuss DNR or withdrawal of care, Hospice)? DNR status @ -No What co-morbidities impacted this encounter? (DM, HTN, Smoking, COPD, CAD, Cancer, CVA, ARF, Chemo, Hep., AIDS, mental health diagnosis, sleep apnea, morbid obesity)? @ -None Was patient admitted / discharged? Hospital course, mention meds given and route, prescriptions, significant lab abnormalities, going to OR and other pertinent info. @ -Is brought to the hospital for cough and difficulty breathing. Patient was given a breathing treatment in the emergency department. Patient's hemoglobin also was considerably lower than it was before at 9.5. Patient also tested positive for RSV. Patient states he has a history of atrial fibrillation but the last he knew he was no longer in atrial fibrillation however today he appears to be in A. fib again. I spoke with Dr. Montesinos he agreed to admit the patient admitted the patient consult to Dr. Méndez as well as cardiology. Undiagnosed new problem with uncertain prognosis? @ -No Drug Therapy requiring intensive monitoring for toxicity (Heparin, Nitro, Insulin, Cardizem)? @ -No Were any procedures done? @ -No Diagnosis/symptom? @ -Hypertensive urgency Acute, or Chronic, or Acute on Chronic? @ -Acute Uncomplicated (without systemic symptoms) or Complicated (systemic symptoms)? @ -Complicated Side effects of treatment? @ -No Exacerbation, Progression, or Severe Exacerbation? @ -Severe exacerbation Poses a threat to life or bodily function? How? (Chest pain, [place], [place], pneumonia, PE, COPD, DKA, ARF, appy, cholecystitis, CVA, Diverticulitis, Homicidal, Suicidal, threat to staff... and all critical care pts) @ -No Diagnosis/symptom? @ -RSV Acute, or Chronic, or Acute on Chronic? @ -Acute Uncomplicated (without systemic symptoms) or Complicated (systemic symptoms)? @ -Uncomplicated Side effects of treatment? @ -none Exacerbation, Progression, or Severe Exacerbation] @ -no Poses a threat to life or bodily function? @ -no Diagnosis/symptom? @ -Anemia Acute, or Chronic, or Acute on Chronic? @ -Acute Uncomplicated (without systemic symptoms) or Complicated (systemic symptoms)? @ -Uncomplicated Side effects of treatment? @ -none Exacerbation, Progression, or Severe Exacerbation] @ -no Poses a threat to life or bodily function? @ -no Diagnosis/symptom? @ -A. fib Acute, or Chronic, or Acute on Chronic? @ -Acute on chronic Uncomplicated (without systemic symptoms) or Complicated (systemic symptoms)? @ -Uncomplicated Side effects of treatment? @ -none Exacerbation, Progression, or Severe Exacerbation] @ -no Poses a threat to life or bodily function? @ -no - Lab Data Result diagrams: 03/09/22 14:42 03/09/22 13:50 Lab Results 03/09/22 03/09/22 03/09/22 Range/Units 13:50 13:50 14:42 WBC 4.3 (3.8-10.6) k/uL RBC 3.37 L (4.30-5.90) m/uL Hgb 9.5 L (13.0-17.5) gm/dL Hct 27.6 L (39.0-53.0) % MCV 82.0 (80.0-100.0) fL MCH 28.2 (25.0-35.0) pg MCHC 34.4 (31.0-37.0) g/dL RDW 13.4 (11.5-15.5) % Plt Count 109 L (150-450) k/uL MPV 8.5 Neutrophils % 76 % Lymphocytes % 7 % Monocytes % 13 % Eosinophils % 1 % Basophils % 0 % Neutrophils # 3.2 (1.3-7.7) k/uL Lymphocytes # 0.3 L (1.0-4.8) k/uL Monocytes # 0.6 (0-1.0) k/uL Eosinophils # 0.1 (0-0.7) k/uL Basophils # 0.0 (0-0.2) k/uL Sodium 137 (137-145) mmol/L Potassium 3.2 L (3.5-5.1) mmol/L Chloride 98 (98-107) mmol/L Carbon Dioxide 29 (22-30) mmol/L Anion Gap 10 mmol/L BUN 15 (9-20) mg/dL Creatinine 0.94 (0.66-1.25) mg/dL Est GFR (CKD-EPI)AfAm >90 (>60 ml/min/1.73 sqM) Est GFR (CKD-EPI)NonAf 89 (>60 ml/min/1.73 sqM) Glucose 206 H (74-99) mg/dL Calcium 8.7 (8.4-10.2) mg/dL Total Bilirubin 1.5 H (0.2-1.3) mg/dL AST 21 (17-59) U/L ALT 20 (4-49) U/L Alkaline Phosphatase 113 (38-126) U/L Total Protein 7.1 (6.3-8.2) g/dL Albumin 3.8 (3.5-5.0) g/dL Influenza Type A (PCR) Not Detected (Not Detectd) Influenza Type B (PCR) Not Detected (Not Detectd) RSV (PCR) Detected A (Not Detectd) SARS-CoV-2 (PCR) Not Detected (Not Detectd) Disposition Clinical Impression: RSV (acute bronchiolitis due to respiratory syncytial virus), Anemia, Hyper tensive urgency, A-fib Disposition: ADMITTED IP TO THIS HOSP Referrals: Kelly Montesinos MD [Primary Care Provider] - 1-2 days Time of Disposition: 15:54
[2022-03-09] MEDS ORDERED: KETOROLAC 15 MG/ML 1 ML VIAL IVP STA (16:42)
[2022-03-09 17:53] LABS: Glucose,Whole Blood 318 mg/dL (70-110)
--- NOTE | 2022-03-09 19:58 | P.HPIM ---
History of Present Illness H&P Date: 03/09/22 HISTORY OF PRESENT ILLNESS: This is a 56-year-old male patient of rosita and Dr. Ga with past medical history of coronary artery disease status post 6 vessel CABG 2006 with MAE to LAD, saphenous venous graft to the PDA, saphenous venous graft to the obtuse marginal one, radial artery to the obtuse marginal branch 2 and saphenous venous graft to the obtuse marginal 3 followed by heart catheterization with PCI and stent of the saphenous venous graft to the RCA in 2015 at which time he presented with non-ST elevated myocardial infarction. Most recent cardiac catheterization was performed in March of 2019 which revealed severe triple- vessel coronary artery disease with a patent ramus intermediate, patent SVG to the OM, patent MAE to the LAD, and occluded saphenous vein graft to the RCA which is chronic from before. Medical therapy was advised at that time. History of hypertension hypertensive cardiovascular disease with left ventricular hypertrophy, hyperlipidemia, ischemic cardiomyopathy, paroxysmal atrial fibrillation currently on Eliquis , diabetes mellitus type 2 with diabetic polyneuropathy, hyperlipidemia, asthma, obstructive sleep apnea on CPAP, chronic low back pain, DVT in the past, patient has been following with me on a regular basis, he developed to have a significant shortness breath associated with increased coughing and pleuritic chest pain ended up coming to the emergency department at [facility] today because of increased chest pain a ssociated with increased shortness breath, he was found to be positive for RSV, and he was in atrial fibrillation with rapid ventricular response, patient was started on Solu-Medrol 40 mg IV push every 6 hours, he was also placed on DuoNeb 3 and an immunization 4 times every day as well as oxygen support, he was admitted to the hospital with cardiology and pulmonary evaluation, patient also wa hypertensive and he stated that he has not been taking his blood pressure medications over the last few days, because she was not feeling well. REVIEW OF SYSTEMS: Constitutional: No documented fever, no chills, no night sweats. No weight change. positive for weakness,positive for fatigue or lethargy. No daytime sleepiness. HEENT: No headache. No blurred vision or double vision, no loss of vision. No loss of Hearing, no ringing in the ears, no dizziness. No nasal drainage or congestion. No epistaxis. No sore throat. Lungs: positive for shortness of breath, positive for cough, minimal sputum production. positive for wheezing. Reports dyspnea with activity. Cardiovascular: pleuritic chest pain, no lower extremity edema. No palpitations. No paroxysmal nocturnal dyspnea. No orthopnea. No lightheadedness or dizziness. No syncopal episodes. Abdominal: Reports abdominal pain. No nausea, vomiting. No diarrhea. No constipation. No bloody or tarry stools reports loss of appetite. Genitourinary: No dysuria, increased frequency, urgency. No urinary retention. Musculoskeletal: No myalgias. No muscle weakness, no gait dysfunction, no frequent falls. No back pain. No neck pain. Integumentary: No wounds, no lesions. No rash or pruritus. No unusual bruising. No change in hair or nails. Neurologic: No aphasia. No facial droop. No change in mentation. No head injury. No headache. No paralysis. No paresthesia. Psychiatric: No depression. No anxiety. No mood swings. Endocrine: No abnormal blood sugars. No weight change. PAST MEDICAL HISTORY: CAD post CABG with MAE to LAD SVG to PDA SVG to OM1 and the radial artery to the obtuse marginal 2 and SVG to the obtuse marginal 3 PCI of the SVG to the RCA 2015 Hypertension and hypertensive cardio vascular disease 3 Paroxysmal atrial fibrillation Diabetes mellitus type 2 Hyperlipidemia. Obstructive sleep apnea. Ischemic cardiomyopathy . Diabetic polyneuropathy. Postherpetic neuralgia. Asthma. DVT. Chronic low back pain. PAST SURGICAL HISTORY: CABG with MAE to LAD, SVG to PDA him a SVG to OM 1, radial artery to OM 2, SVG to OM 3. Left heart catheterization with PCI of the SVG to the RCA 2015. Spinal fusion L4-L5 Bilateral inguinal hernia repair. Fasciotomy to the left lower extremity. Fasciotomy to the left upper extremity. SOCIAL HISTORY: Patient is a lifelong nonsmoker, he denies any alcohol ingestion he denies any drug use or abuse. FAMILY HISTORY: Father at age of 60 from COPD he also has history of CAD post [place], mother at age of 80 fortunately history of diabetes mellitus type 2, she'll also have history of chronic kidney disease, patient has one sister with rheumatoid arthritis as well as hyper lipidemia and one brother no major medical problems. PHYSICAL EXAMINATION: General: 56-year-old male laying down in bed in minimal respiratory distress. HEENT: Head is atraumatic, normocephalic, pupils were equal round reactive to light and recommendation, extraocular muscle movement were intact, sclera nonicteric, conjunctivae were pale, mucous membranes of the mouth are somewhat dry. Neck: Supple, no JVP, normal carotid upstroke bilaterally, no lymphadenopathy. Chest: Decreased breath sounds at the bases, few rhonchi, positive for expiratory wheezes, no chest wall tenderness, no intercostal retractions. Heart: First heart sound is normal, second heart sounds normal, irregularly irregular, there is systolic ejection murmur 2/6 located in the left sternal border. Abdomen: Soft, nontender, nondistended, positive bowel sounds. Extremities: There is no edema no calf tenderness DP +1 bilaterally. Neurologic examination: Patient is awake alert and oriented X 3, cranial nerves II-12 appear grossly intact, muscle power were 5 out of 5 in upper extremities and 5 out of 5 in bilateral lower extremities, deep tendon reflexes normal bilaterally. ASSESSMENT AND PLAN: 1. Acute hypoxemic respiratory failure due to acute asthma exacerbation com plicated by RSV infection . Continue oxygen support, start the patient on Solu- Medrol 40 mg IV push every 6 hours, continue DuoNeb 3 mg nebulization 4 times every day, contact/droplet precautions, pulmonary consultation. 2. Atrial fibrillation with rapid ventricular response. Restart the patient back on his metoprolol 100 mg orally twice every day, continue to monitor the patient very closely, restart the patient back on Eliquis 2.5 mg orally twice every day. Cardiology consultation. 3. Accelerated hypertension. Patient has been off his blood pressure medication for the last few days. Start the patient on losartan 100/25 mg orally once every day, continue patient on metoprolol 100 mg orally twice every day, continue hydralazine 50 mg orally twice every day, continue clonidine 0.1 mg orally twice every day monitor the patient blood pressure very closely. 4. Diabetes mellitus type 2. Restart the patient on Lantus 23 units at bedtime along with a sliding scale insulin monitor the patient hemoglobin A1c 5. Coronary artery disease status post CABG 6 as well as PCI in the past. Continue patient on Plavix 75 mg once every day, metoprolol 100 mg orally twice every day, continue patient on atorvastatin 80 mg orally once every day, continues Zetia 10 mg orally once every day. 6. Hyperlipidemia. Continue patient on atorvastatin 80 mg once every day, continue Zetia 10 mg orally once every day, monitor lipid panel, keep LDL 55-70. 7. Diabetic polyneuropathy. Continue patient on gabapentin 100 mg orally 3 times every day. 8. Obstructive sleep apnea. Patient does have a CPAP at home. 9. Chronic low back pain. Continue gabapentin 900 mg orally 3 times every day. 10. Pleuritic chest pain. Start the patient on morphine 2 mg IV push every 4 hours as needed. 11. DVT prophylaxis. Continue Eliquis 2.5 mg orally twice every day. 12. GI prophylaxis. Start the patient on Protonix 40 mg orally once every day. 13. Admit to inpatient. Estimated length of stay 2 midnights. 14. Patient's full code. Past Medical History Past Medical History: Asthma, Coronary Artery Disease (CAD), Chest Pain / Angina, Diabetes Mellitus, Deep Vein Thrombosis (DVT), Hyperlipidemia, Hypertension, Myocardial Infarction ([place]), Sleep Apnea/CPAP/BIPAP Additional Past Medical History / Comment(s): Obstructive sleep apnea CPAP, bronchitis, IDDM type II, DVT L leg, cellulitis L leg 2012 cellulitis L Arm 20 18, diabetic neuropathy affects feet and hands, chronic kidney disease stage II Last Myocardial Infarction Date:: 06/23/13 History of Any Multi-Drug Resistant Organisms: Acinetobacter (MDRO), MRSA Date of last positivie culture/infection: 08/2014 MDRO Source:: abdomen around navel Past Surgical History: Back Surgery, Coronary Bypass/CABG, Heart Catheterization, Heart Catheterization With Stent, Hernia Repair Additional Past Surgical History / Comment(s): Cardiac caths, PCI with stents (4total), 2006 CABG 6 vessels, spinal fusion L4-L5, fasciotomy left thigh, bilateral inguinal hernia repairs, I&D L forearm with dehisence then compartment syndrome with fasciotomy Left forearm - June 2016 Past Anesthesia/Blood Transfusion Reactions: No Reported Reaction Date of Last Stent Placement:: 08/28/15 Past Psychological History: No Psychological Hx Reported Smoking Status: Never smoker Past Alcohol Use History: None Reported Past Drug Use History: None Reported - Past Family History Brother(s) Additional Family Medical History / Comment(s): Patient has 1 brother and 1 sister with no major medical problems. Mother Family Medical History: Congestive Heart Failure (CHF), Diabetes Mellitus Additional Family Medical History / Comment(s): Mother at the age of 84 from with history of chronic renal disease stage. Father Family Medical History: COPD, Coronary Artery Disease (CAD), Myocardial Infarction ([place]) Additional Family Medical History / Comment(s): Father of a [place] at the age of 60 yrs with history of COPD. Sister(s) Family Medical History: Rheumatoid Arthritis (RA) Additional Family Medical History / Comment(s): Patient has 1 sister with no major medical problems. Medications and Allergies Home Medications Medication Instructions Recorded Confirmed Type Atorvastatin [Lipitor] 80 mg PO HS #30 tab 04/14/19 03/09/22 Rx Metoprolol Tartrate [Lopressor] 100 mg PO BID #60 tab 04/14/19 03/09/22 Rx Potassium Chloride ER [K-Dur 10] 10 meq PO DAILY #30 tab 04/14/19 03/09/22 Rx Furosemide [Lasix] 40 mg PO DAILY 11/09/19 03/09/22 History Losartan/Hydrochlorothiazide 1 tab PO DAILY 11/09/19 03/09/22 History [Hyzaar 100-12.5 Tablet] cloNIDine HCL [Catapres] 0.1 mg PO BID 11/09/19 03/09/22 History hydrALAZINE HCL [Apresoline] 50 mg PO BID 11/09/19 03/09/22 History metFORMIN HCL [Glucophage] 1,000 mg PO BID 11/09/19 03/09/22 History Clopidogrel [Plavix] 75 mg PO DAILY tab 11/20/19 03/09/22 Rx Ezetimibe [Zetia] 10 mg PO HS 12/15/20 03/09/22 History INSULIN ASPART (NovoLOG) [NovoLOG See Protocol SQ AC-TID 12/15/20 12/15/20 History (formulary)] Apixaban [Eliquis] 5 mg PO Q2D 03/09/22 History Gabapentin 900 mg PO BID 03/09/22 03/09/22 History Lantus Or Levemir (Unknown) 23 units SQ HS 03/09/22 03/09/22 History Allergies Allergy/AdvReac Type Severity Reaction Status Date / Time adhesive tape Allergy Severe Rash/Hives Verified 03/09/22 16:47 vancomycin Allergy Mild Head Itches Verified 03/09/22 16:47 Physical Exam Vitals: Vital Signs Temp Pulse Resp BP Pulse Ox 03/09/22 19:17 102 H 13 181/98 98 03/09/22 17:39 108 H 22 141/90 03/09/22 17:00 104 H 22 196/133 03/09/22 16:30 101 H 23 202/120 03/09/22 16:20 93 03/09/22 16:00 100 21 194/118 03/09/22 15:30 92 23 194/110 03/09/22 15:00 96 22 185/123 03/09/22 13:32 99.8 F H 98 20 205/116 96 Intake and Output 03/09/22 03/09/22 03/09/22 06:59 14:59 22:59 Other: Weight 74.843 kg Results CBC & Chem 7: 03/09/22 14:42 03/09/22 13:50 Labs: Abnormal Lab Results - Last 24 Hours (Table) 03/09/22 03/09/22 03/09/22 Range/Units 13:50 13:50 13:50 RBC (4.30-5.90) m/uL Hgb (13.0-17.5) gm/dL Hct (39.0-53.0) % Plt Count (150-450) k/uL Lymphocytes # (1.0-4.8) k/uL Potassium 3.2 L (3.5-5.1) mmol/L Glucose 206 H (74-99) mg/dL POC Glucose (mg/dL) (70-110) mg/dL Total Bilirubin 1.5 H (0.2-1.3) mg/dL Troponin I 0.050 H* (0.000-0.034) ng/mL RSV (PCR) Detected A (Not Detectd) 03/09/22 03/09/22 03/09/22 Range/Units 14:42 16:58 17:51 RBC 3.37 L (4.30-5.90) m/uL Hgb 9.5 L (13.0-17.5) gm/dL Hct 27.6 L (39.0-53.0) % Plt Count 109 L (150-450) k/uL Lymphocytes # 0.3 L (1.0-4.8) k/uL Potassium (3.5-5.1) mmol/L Glucose (74-99) mg/dL POC Glucose (mg/dL) 318 H (70-110) mg/dL Total Bilirubin (0.2-1.3) mg/dL Troponin I 0.048 H* (0.000-0.034) ng/mL RSV (PCR) (Not Detectd)
[2022-03-09 20:41] LABS: Glucose,Whole Blood 424 mg/dL (70-110)
[2022-03-09] MEDS ORDERED: INSULIN DETEMIR (LEVEMIR) 100 UNIT/ML SYR SQ SCH (21:00)
[2022-03-09] MEDS: APIXABAN 2.5 MG TABLET PO SCH (21:25)
[2022-03-09] MEDS: EZETIMIBE 10 MG TAB PO SCH (21:25)
[2022-03-09] MEDS: cloNIDine HCL 0.1 MG TAB PO SCH (21:26)
[2022-03-09] MEDS: METOPROLOL TARTRATE 50 MG TAB PO SCH (21:26)
[2022-03-09] MEDS: metFORMIN 500 MG TAB PO SCH (21:26)
[2022-03-09] MEDS: GABAPENTIN 300 MG CAP PO SCH (21:26)
[2022-03-09] MEDS: ATORVASTATIN 80 MG TAB PO SCH (21:26)
[2022-03-09] MEDS: hydrALAZINE HCL 50 MG TAB PO SCH (21:26)
[2022-03-09] MEDS: MORPHINE SULFATE 2 MG/ML SYRINGE IVP PRN (21:28)
[2022-03-09] MEDS ORDERED: ONDANSETRON 4 MG/2 ML VIAL IVP PRN (21:52)
[2022-03-09] MEDS: methylPREDNISolone SOD SUCCI 40 MG/ML 1 ML VIAL IV SCH (21:56)
[2022-03-09] MEDS: LOSARTAN 50 MG TAB PO SCH (21:56)
[2022-03-09] MEDS: INSULIN ASPART (NovoLOG) 100 UNIT/ML VIAL SQ SCH (21:57)
[2022-03-09 23:58] LABS: Basophils # (A) 0.1 k/uL (0-0.2); Basophils % (A) 1 %; Eosinophils # (A) 0.1 k/uL (0-0.7); Eosinophils % (A) 1 %; HCT 38.1 % (39.0-53.0); Lymphocytes # (A) 0.3 k/uL (1.0-4.8); Lymphocytes % (A) 4 %; MCH 27.8 pg (25.0-35.0); MCHC 34.2 g/dL (31.0-37.0); MCV 81.2 fL (80.0-100.0); Mean Platelet Volume 8.5; Monocytes # (A) 0.4 k/uL (0-1.0); Monocytes % (A) 4 %; Neutrophils # (A) 7.7 k/uL (1.3-7.7); Neutrophils % (A) 90 %; Platelet Count 137 k/uL (150-450); RDW 13.3 % (11.5-15.5); WBC 8.6 k/uL (3.8-10.6)
[2022-03-10] LABS: HGB 13.1 gm/dL (13.0-17.5)
[2022-03-10] MEDS ORDERED: INSULIN DETEMIR (LEVEMIR) 100 UNIT/ML SYR SQ SCH (00:09)
[2022-03-10] MEDS: methylPREDNISolone SOD SUCCI 40 MG/ML 1 ML VIAL IV SCH ×4 (00:12→21:10)
[2022-03-10] MEDS: IPRATROPIUM-ALBUTEROL 3 ML NEB INHALATION PRN ×3 (02:06→19:54)
[2022-03-10] MEDS: MORPHINE SULFATE 2 MG/ML SYRINGE IVP PRN ×2 (05:15→21:10)
[2022-03-10 06:23] LABS: Glucose,Whole Blood 207 mg/dL (70-110)
[2022-03-10] MEDS: INSULIN ASPART (NovoLOG) 100 UNIT/ML VIAL SQ SCH ×7 (06:35→21:22)
[2022-03-10] MEDS: PANTOPRAZOLE 40 MG TABLET PO SCH (06:36)
[2022-03-10] MEDS ORDERED: INSULIN ASPART (NovoLOG) 100 UNIT/ML VIAL SQ SCH (07:30)
[2022-03-10] MEDS ORDERED: ASPIRIN 325 MG TAB PO SCH (09:00)
[2022-03-10] MEDS: hydrALAZINE HCL 50 MG TAB PO SCH ×2 (09:14→21:10)
[2022-03-10] MEDS: METOPROLOL TARTRATE 50 MG TAB PO SCH ×2 (09:14→21:09)
[2022-03-10] MEDS: GABAPENTIN 300 MG CAP PO SCH ×2 (09:14→21:09)
[2022-03-10] MEDS: POTASSIUM CHLORIDE ER 10 MEQ TAB.ER.PRT PO SCH (09:14)
[2022-03-10] MEDS: CLOPIDOGREL 75 MG TAB PO SCH (09:14)
[2022-03-10] MEDS: metFORMIN 500 MG TAB PO SCH ×2 (09:14→21:09)
[2022-03-10] MEDS: LOSARTAN 50 MG TAB PO SCH (09:14)
[2022-03-10] MEDS: hydroCHLOROthiazide 12.5 MG CAP PO SCH (09:14)
[2022-03-10] MEDS: cloNIDine HCL 0.1 MG TAB PO SCH ×2 (09:14→21:09)
[2022-03-10] MEDS: FUROSEMIDE 40 MG TAB PO SCH (09:15)
[2022-03-10] MEDS: APIXABAN 2.5 MG TABLET PO SCH ×2 (09:15→21:09)
--- NOTE | 2022-03-10 11:17 | P.CNPUL ---
History of Present Illness Consult date: 03/10/22 Requesting physician: Kelly Montesinos Reason for consult: dyspnea, cough Chief complaint: Cough and shortness of breath. History of present illness: Pulmonary consult dated 03/10/2022. 56-year-old male who presented to the emergency department on March 09 complaining of cough, chest congestion, and shortness of breath. The patient comes in with a two to four-day history of increasing shortness of breath, cough, chest congestion, and minimal phlegm production. He denied any fever or chills. He denies any chest pain or chest discomfort. The patient was evaluated in the emergency department, and admitted to the hospital. His chest x-ray was normal. He did test positive for respiratory syncytial virus. The patient denies a history of any significant lung disease. The patient is a [place] nonsmoker. Currently, he's on room air. He's not receiving any IV fluids. White count 8.6, hemoglobin 13.1, hematocrit 38.1, and platelet count 237,000. Sodium 137, potassium 3.2, chlorides 98, CO2 29, BUN 15, creatinine 0.94. He did test positive for RSV. He tested negative for influenza, and coronavirus infection. Chest x-ray was reported as being normal. Review of Systems REVIEW OF SYSTEMS: CONSTITUTIONAL: [Negative.] NEUROLOGIC: [ Negative.] HEENT: [ Negative.] CARDIAC: [Negative.] PULMONARY: Cough, chest congestion, and shortness of breath. GI: [Negative.] : [Negative.] RHEUMATOLOGIC: [ Negative.] IMMUNOLOGIC: [ Negative.] ENDOCRINE: [Negative. ] DERMATOLOGIC: [Negative.] Past Medical History Past Medical History: Asthma, Coronary Artery Disease (CAD), Chest Pain / Angina, Diabetes Mellitus, Deep Vein Thrombosis (DVT), Hyperlipidemia, Hypertension, Myocardial Infarction ([place]), Sleep Apnea/CPAP/BIPAP Additional Past Medical History / Comment(s): Obstructive sleep apnea CPAP, bronchitis, IDDM type II, DVT L leg, cellulitis L leg 2012 cellulitis L Arm 2017, diabetic neuropathy affects feet and hands, chronic kidney disease stage II Last Myocardial Infarction Date:: 06/23/13 History of Any Multi-Drug Resistant Organisms: Acinetobacter (MDRO), MRSA Date of last positivie culture/infection: 08/2014 MDRO Source:: abdomen around navel Past Surgical History: Back Surgery, Coronary Bypass/CABG, Heart Catheterization, Heart Catheterization With Stent, Hernia Repair Additional Past Surgical History / Comment(s): Cardiac caths, PCI with stents (4total), 2006 CABG 6 vessels, spinal fusion L4-L5, fasciotomy left thigh, bilateral inguinal hernia repairs, I&D L forearm with dehisence then compartment syndrome with fasciotomy Left forearm - June 2016 Past Anesthesia/Blood Transfusion Reactions: No Reported Reaction Date of Last Stent Placement:: 08/28/15 Past Psychological History: No Psychological Hx Reported Smoking Status: Never smoker Past Alcohol Use History: None Reported Past Drug Use History: None Reported - Past Family History Brother(s) Additional Family Medical History / Comment(s): Patient has 1 brother and 1 sister with no major medical problems. Mother Family Medical History: Congestive Heart Failure (CHF), Diabetes Mellitus Additional Family Medical History / Comment(s): Mother at the age of 84 from with history of chronic renal disease stage. Father Family Medical History: COPD, Coronary Artery Disease (CAD), Myocardial Infarction ([place]) Additional Family Medical History / Comment(s): Father of a [place] at the age of 60 yrs with history of COPD. Sister(s) Family Medical History: Rheumatoid Arthritis (RA) Additional Family Medical History / Comment(s): Patient has 1 sister with no major medical problems. Medications and Allergies Home Medications Medication Instructions Recorded Confirmed Type Atorvastatin [Lipitor] 80 mg PO HS #30 tab 04/14/19 03/09/22 Rx Metoprolol Tartrate [Lopressor] 100 mg PO BID #60 tab 04/14/19 03/09/22 Rx Potassium Chloride ER [K-Dur 10] 10 meq PO DAILY #30 tab 04/14/19 03/09/22 Rx Furosemide [Lasix] 40 mg PO DAILY 11/09/19 03/09/22 History Losartan/Hydrochlorothiazide 1 tab PO DAILY 11/09/19 03/09/22 History [Hyzaar 100-12.5 Tablet] cloNIDine HCL [Catapres] 0.1 mg PO BID 11/09/19 03/09/22 History hydrALAZINE HCL [Apresoline] 50 mg PO BID 11/09/19 03/09/22 History metFORMIN HCL [Glucophage] 1,000 mg PO BID 11/09/19 03/09/22 History Clopidogrel [Plavix] 75 mg PO DAILY tab 11/20/19 03/09/22 Rx Ezetimibe [Zetia] 10 mg PO HS 12/15/20 03/09/22 History INSULIN ASPART (NovoLOG) [NovoLOG See Protocol SQ AC-TID 12/15/20 12/15/20 History (formulary)] Apixaban [Eliquis] 5 mg PO Q2D 03/09/22 History Gabapentin 900 mg PO BID 03/09/22 03/09/22 History Lantus Or Levemir (Unknown) 23 units SQ HS 03/09/22 03/09/22 History Allergies Allergy/AdvReac Type Severity Reaction Status Date / Time adhesive tape Allergy Severe Rash/Hives Verified 03/09/22 16:47 vancomycin Allergy Mild Head Itches Verified 03/09/22 16:47 Physical Exam Osteopathic Statement: *. No significant issues noted on an osteopathic structu ral exam other than those noted in the History and Physical/Consult. Vitals: Vital Signs Temp Pulse Pulse Resp BP BP Pulse Ox 03/10/22 09:08 70 03/10/22 08:54 70 03/10/22 08:00 79 18 146/79 98 03/10/22 04:00 77 19 133/76 95 03/10/22 02:16 83 03/10/22 02:06 80 03/10/22 00:00 83 19 137/88 94 L 03/09/22 20:00 98.8 F 104 H 19 193/91 94 L 03/09/22 19:42 98.8 F 104 H 21 193/91 94 L 03/09/22 19:17 102 H 13 181/98 98 03/09/22 17:39 108 H 22 141/90 03/09/22 17:00 104 H 22 196/133 03/09/22 16:30 101 H 23 202/120 03/09/22 16:20 93 03/09/22 16:00 100 21 194/118 03/09/22 15:30 92 23 194/110 03/09/22 15:00 96 22 185/123 03/09/22 13:32 99.8 F H 98 20 205/116 96 Intake and Output 03/09/22 03/10/22 03/10/22 22:59 06:59 14:59 Intake Total 100 Balance 100 Intake: Oral 100 Other: # Voids 1 1 Weight 74.843 kg No acute distress, oriented 3. No respiratory distress, audible wheezing, use of accessory muscles, or conversational dyspnea. HEENT examination is grossly unremarkable. Neck supple. Full range of motion. No adenopathy thyromegaly or neck vein distention. Cardiovascular examination reveals regular rhythm rate. S1-S2 normal. No S3 or S4. No discernible murmur noted. Heart sounds are distant. Heart rate 70 bpm. Lungs reveal scattered bilateral expiratory rhonchi and wheezes. Breath sounds equal. Room air saturation 98%. No crackles appreciated. Abdomen soft bowel sounds are heard. No masses or tenderness. Extremities are intact. No cyanosis or edema. Fingertip clubbing is noted. Skin is without rash or lesion. Neurologic examination is brief but nonfocal. Results - Laboratory Findings CBC and BMP: 03/09/22 23:28 03/09/22 13:50 Abnormal lab findings: Abnormal Labs 03/09/22 03/09/22 03/09/22 13:50 13:50 13:50 RBC Hgb Hct Plt Count Lymphocytes # Potassium 3.2 L Glucose 206 H POC Glucose (mg/dL) Total Bilirubin 1.5 H Troponin I 0.050 H* RSV (PCR) Detected A 03/09/22 03/09/22 03/09/22 14:42 16:58 17:51 RBC 3.37 L Hgb 9.5 L Hct 27.6 L Plt Count 109 L Lymphocytes # 0.3 L Potassium Glucose POC Glucose (mg/dL) 318 H Total Bilirubin Troponin I 0.048 H* RSV (PCR) 03/09/22 03/09/22 03/10/22 20:39 23:28 06:21 RBC Hgb Hct 38.1 L Plt Count 137 L Lymphocytes # 0.3 L Potassium Glucose POC Glucose (mg/dL) 424 H 207 H Total Bilirubin Troponin I RSV (PCR) - Diagnostic Findings Chest x-ray: image reviewed Assessment and Plan Assessment: Acute bronchitis with bronchospasm and bronchial inflammation, secondary to RSV infection. Remote history of mild asthma. History of CAD, with previous bypass grafting, 6 vessel. Previous cardiac catheterizations with stent placement. History of hypertension. History of hyperlipidemia. Diabetes mellitus. History of deep venous thrombosis. History of myocardial infarction. History of obstructive sleep apnea syndrome, maintained on CPAP. History of cellulitis. Diabetic neuropathy. History of spinal fusion. Left forearm compartment syndrome, with previous fasciotomy. Plan: Plan dated 03/10/2022. Labs, x-rays, and medications are reviewed. The patient appears quite comfortable. Room air saturation 98%. The patient did test positive for respiratory syncytial virus, and he does have bronchospasm, and bronchial inflammation. The patient was placed on Symbicort. The patient continues on updrafts, and is also on Solu-Medrol, 40 mg IV push every 6 hours. We will continue to follow. In my opinion, the patient could be considered for early discharge, chest x-ray is normal. He is not requiring any supplemental oxygen. He could be discharged home on Symbicort, prednisone and a rescue inhaler. Time with Patient: Greater than 30
[2022-03-10 11:42] LABS: Glucose,Whole Blood 236 mg/dL (70-110)
--- NOTE | 2022-03-10 12:39 | P.CRDCN ---
History of Present Illness Consult date: 03/10/22 Reason for Consult (text): Atrial fibrillation, hypertensive emergency History of present illness: History of present illness: This is a 56-year-old male patient follows with Dr. Ga in the office. He has a known history of coronary artery disease with prior bypass surgery and stent of the left circumflex, diabetes, hypertension, hyperlipidemia, obstructive sleep apnea, prior DVT history, nicotine dependence, COPD, ischemic cardiomyopathy, persistent atrial fibrillation status post cardioversion. We have been asked to see patient for hypertensive urgency and atrial fibrillation. Patient states that he has had upper respiratory symptoms that started on continued to worsen and subsequently developed chest pain from cough ing. He thought he had pneumonia. He states he has been feeling dizzy off and on in his legs get tired. He denies any fever or chills. Because of his symptoms, patient did not take his medications over the weekend and he presented with a blood pressure of 205/116. Patient received 1 dose of IV the hydralazine and has been resumed on his home medications with improvement of his blood pressure to 103/60, heart rate is running in the 70s, pulse ox 96% on room air. EKG atrial fibrillation with ventricular rate of 92. Chest x-ray reveals no acute process. Correlate for cardiomegaly and COPD WBC 8.6, hemoglobin 13.1, platelet count 137. Potassium 3.2 and has been replaced. Blood sugar 424. Total bilirubin is 1.5 otherwise liver function tests are normal. Troponins 0.05, 0.048. Influenza A, influenza B, Covid not detected. RSV detected. Cardiac catheterization 11/11 status post stenting of the proximal left circumflex coronary artery, patent MAE to LAD patent, LAD distal to the MAE anastomosis has diffuse disease, SVG to OM patent. SVG to RCA occluded Electrocardioversion 04/2019 for atrial fibrillation Echocardiogram 02/2020 revealed EF of 50-55%, moderate left ventricular h ypertrophy. Moderate mitral regurgitation, moderate tricuspid regurgitation. PA AST 44 mmHg. Mild pulmonic regurgitation. Exercise stress test 11/2019 was nondiagnostic due to baseline EKG abnormalities Home cardiac medications eliquis 2.5 mg twice daily, atorvastatin 80 mg at bedtime, Catapres 0.1 mg twice daily, Plavix 75 mg daily, Zetia 10 mg at bedtime, Lasix 40 mg daily, hydralazine 50 mg twice daily, Hyzaar one daily, Lopressor 100 mg twice daily, potassium 10 mEq daily. Review Of Systems: At the time of my evaluation: Constitutional: No fever, no chills. No weakness, fatigue or lethargy. EENT: No headache. No dizziness. Lungs: No shortness of breath, reports cough, no sputum production. No wheezing. Cardiovascular: No chest pain, no lower extremity edema. No palpitations. No paroxysmal nocturnal dyspnea. No orthopnea. No lightheadedness or dizziness. No syncopal episodes. Abdominal: No abdominal pain. No nausea, vomiting. No diarrhea. No constipation. No bloody or tarry stools. Genitourinary: No dysuria. No urinary retention. Musculoskeletal: No myalgias. No muscle weakness, no frequent falls. No back pain. No neck pain. Integumentary: No wounds. No rash. No unusual bruising. Neurologic: No aphasia. No facial droop. No change in mentation. No head injury. No headache. Psychiatric: No depression. No anxiety. Endocrine: No abnormal blood sugars. Physical examination: Gen: This is a 56-year-old male. He is resting in bed appears to be comfortable and in no acute distress VS: reviewed HEENT: Head is atraumatic, normocephalic. Pupils equal, round. Sclerae is anicteric. NECK: Supple. No JVD. No lymphadenopathy. No thyromegaly. LUNGS: Clear to auscultation. No wheezes or rhonchi. No intercostal retractions. HEART: Regular rate and rhythm. 2/6 systolic ejection murmur. ABDOMEN: Soft. Bowel sounds are present. No masses. No tenderness. EXTREMITIES: No pedal edema. No calf tenderness. NEUROLOGICAL: Patient is awake, alert and oriented x3. Cranial nerves 2 through 12 are grossly intact. Assessment: Hypertensive urgency Persistent atrial fibrillation Coronary artery disease with prior bypass surgery and stents Troponin abnormality not consistent with acute coronary syndrome, most likely due to hypertension Diabetes Hypertension Hyperlipidemia Ischemic cardiomyopathy COPD Sleep apnea Plan: Continue patient on home cardiac medications Discontinue aspirin 325 mg Obtain 2-D echocardiogram and Doppler study to assess cardiac structure and function Further recommendations to follow based upon clinical course Thank you kindly for this consultation. Nurse practitioner note has been reviewed, I agree with documented findings and plan of care. Patient was seen and examined. Past Medical History Past Medical History: Asthma, Coronary Artery Disease (CAD), Chest Pain / Angina, Diabetes Mellitus, Deep Vein Thrombosis (DVT), Hyperlipidemia, Hypertension, Myocardial Infarction (MO), Sleep Apnea/CPAP/BIPAP Additional Past Medical History / Comment(s): Obstructive sleep apnea CPAP, bronchitis, IDDM type II, DVT L leg, cellulitis L leg 2012 cellulitis L Arm 2018, diabetic neuropathy affects feet and hands, chronic kidney disease stage II Last Myocardial Infarction Date:: 06/23/13 History of Any Multi-Drug Resistant Organisms: Acinetobacter (MDRO), MRSA Date of last positivie culture/infection: 08/2014 MDRO Source:: abdomen around navel Past Surgical History: Back Surgery, Coronary Bypass/CABG, Heart Catheterizat ion, Heart Catheterization With Stent, Hernia Repair Additional Past Surgical History / Comment(s): Cardiac caths, PCI with stents (4total), 2006 CABG 6 vessels, spinal fusion L4-L5, fasciotomy left thigh, bilateral inguinal hernia repairs, I&D L forearm with dehisence then compartment syndrome with fasciotomy Left forearm - June 2016 Past Anesthesia/Blood Transfusion Reactions: No Reported Reaction Date of Last Stent Placement:: 08/28/15 Past Psychological History: No Psychological Hx Reported Smoking Status: Never smoker Past Alcohol Use History: None Reported Past Drug Use History: None Reported - Past Family History Brother(s) Additional Family Medical History / Comment(s): Patient has 1 brother and 1 sister with no major medical problems. Mother Family Medical History: Congestive Heart Failure (CHF), Diabetes Mellitus Additional Family Medical History / Comment(s): Mother at the age of 84 f rom with history of chronic renal disease stage. Father Family Medical History: COPD, Coronary Artery Disease (CAD), Myocardial Infarction (MO) Additional Family Medical History / Comment(s): Father of a MO at the age of 60 yrs with history of COPD. Sister(s) Family Medical History: Rheumatoid Arthritis (RA) Additional Family Medical History / Comment(s): Patient has 1 sister with no major medical problems. Medications and Allergies Home Medications Medication Instructions Recorded Confirmed Type Atorvastatin [Lipitor] 80 mg PO HS #30 tab 04/14/19 03/09/22 Rx Metoprolol Tartrate [Lopressor] 100 mg PO BID #60 tab 04/14/19 03/09/22 Rx Potassium Chloride ER [K-Dur 10] 10 meq PO DAILY #30 tab 04/14/19 03/09/22 Rx Furosemide [Lasix] 40 mg PO DAILY 11/09/19 03/09/22 History Losartan/Hydrochlorothiazide 1 tab PO DAILY 11/09/19 03/09/22 History [Hyzaar 100-12.5 Tablet] cloNIDine HCL [Catapres] 0.1 mg PO BID 11/09/19 03/09/22 History hydrALAZINE HCL [Apresoline] 50 mg PO BID 11/09/19 03/09/22 History metFORMIN HCL [Glucophage] 1,000 mg PO BID 11/09/19 03/09/22 History Clopidogrel [Plavix] 75 mg PO DAILY tab 11/20/19 03/09/22 Rx Ezetimibe [Zetia] 10 mg PO HS 12/15/20 03/09/22 History INSULIN ASPART (NovoLOG) [NovoLOG See Protocol SQ AC-TID 12/15/20 12/15/20 History (formulary)] Apixaban [Eliquis] 5 mg PO Q2D 03/09/22 History Gabapentin 900 mg PO BID 03/09/22 03/09/22 History Lantus Or Levemir (Unknown) 23 units SQ HS 03/09/22 03/09/22 History Allergies Allergy/AdvReac Type Severity Reaction Status Date / Time adhesive tape Allergy Severe Rash/Hives Verified 03/09/22 16:47 vancomycin Allergy Mild Head Itches Verified 03/09/22 16:47 Physical Exam Vitals: Vital Signs Temp Pulse Pulse Resp BP BP Pulse Ox 03/10/22 04:00 77 19 133/76 95 03/10/22 02:16 83 03/10/22 02:06 80 03/10/22 00:00 83 19 137/88 94 L 03/09/22 20:00 98.8 F 104 H 19 193/91 94 L 03/09/22 19:42 98.8 F 104 H 21 193/91 94 L 03/09/22 19:17 102 H 13 181/98 98 03/09/22 17:39 108 H 22 141/90 03/09/22 17:00 104 H 22 196/133 03/09/22 16:30 101 H 23 202/120 03/09/22 16:20 93 03/09/22 16:00 100 21 194/118 03/09/22 15:30 92 23 194/110 03/09/22 15:00 96 22 185/123 03/09/22 13:32 99.8 F H 98 20 205/116 96 Intake and Output 03/09/22 03/10/22 03/10/22 22:59 06:59 14:59 Other: # Voids 1 1 Weight 74.843 kg Results 03/09/22 23:28 03/09/22 13:50 Cardiac Enzymes 03/09/22 03/09/22 03/09/22 Range/Units 13:50 13:50 16:58 AST 21 (17-59) U/L Troponin I 0.050 H* 0.048 H* (0.000-0.034) ng/mL CBC 03/09/22 03/09/22 Range/Units 14:42 23:28 WBC 4.3 8.6 (3.8-10.6) k/uL RBC 3.37 L 4.70 (4.30-5.90) m/uL Hgb 9.5 L 13.1 D (13.0-17.5) gm/dL Hct 27.6 L 38.1 L (39.0-53.0) % Plt Count 109 L 137 L (150-450) k/uL Comprehensive Metabolic Panel 03/09/22 Range/Units 13:50 Sodium 137 (137-145) mmol/L Potassium 3.2 L (3.5-5.1) mmol/L Chloride 98 (98-107) mmol/L Carbon Dioxide 29 (22-30) mmol/L BUN 15 (9-20) mg/dL Creatinine 0.94 (0.66-1.25) mg/dL Glucose 206 H (74-99) mg/dL Calcium 8.7 (8.4-10.2) mg/dL AST 21 (17-59) U/L ALT 20 (4-49) U/L Alkaline Phosphatase 113 (38-126) U/L Total Protein 7.1 (6.3-8.2) g/dL Albumin 3.8 (3.5-5.0) g/dL Current Medications Generic Name Dose Route Start Last Admin Trade Name Freq PRN Reason Stop Dose Admin Albuterol/Ipratropium 3 ml 03/09/22 16:12 03/10/22 02:06 Ipratropium-Albuterol 3 Ml Neb INHALATION 3 ml Q4HR PRN Administration Wheezing Apixaban 2.5 mg 03/09/22 21:00 03/09/22 21:25 Apixaban 2.5 Mg Tablet PO 2.5 mg BID [facility] Administration Protocol Aspirin 325 mg 03/10/22 09:00 Aspirin 325 Mg Tab PO DAILY [facility] Atorvastatin Calcium 80 mg 03/09/22 21:00 03/09/22 21:26 Atorvastatin 80 Mg Tab PO 80 mg HS [facility] Administration Clonidine 0.1 mg 03/09/22 21:00 03/09/22 21:26 Clonidine Hcl 0.1 Mg Tab PO 0.1 mg BID [facility] Administration Clopidogrel Bisulfate 75 mg 03/10/22 09:00 Clopidogrel 75 Mg Tab PO DAILY [facility] Ezetimibe 10 mg 03/09/22 21:00 03/09/22 21:25 Ezetimibe 10 Mg Tab PO 10 mg HS [facility] Administration Furosemide 40 mg 03/10/22 09:00 Furosemide 40 Mg Tab PO DAILY [facility] Gabapentin 900 mg 03/09/22 21:00 03/09/22 21:26 Gabapentin 300 Mg Cap PO 900 mg BID [facility] Administration Hydralazine HCl 50 mg 03/09/22 21:00 03/09/22 21:26 Hydralazine Hcl 50 Mg Tab PO 50 mg BID [facility] Administration Hydrochlorothiazide 12.5 mg 03/10/22 09:00 Hydrochlorothiazide 12.5 Mg Cap PO DAILY [facility] Insulin Aspart 0 unit 03/09/22 21:00 03/10/22 06:35 Insulin Aspart (Novolog) 100 Unit/Ml Vial SQ 4 unit ACHS [facility] Administration Protocol Insulin Aspart 6 unit 03/10/22 07:30 03/10/22 06:36 Insulin Aspart (Novolog) 100 Unit/Ml Vial SQ 6 unit AC-TID [facility] Administration Insulin Detemir 23 unit 03/10/22 00:09 Insulin Detemir (Levemir) 100 Unit/Ml Syr SQ HS [facility] Losartan Potassium 100 mg 03/09/22 19:45 03/09/22 21:56 Losartan 50 Mg Tab PO 100 mg DAILY [facility] Administration Metformin HCl 1,000 mg 03/09/22 21:00 01/16/23 21:26 Metformin 500 Mg Tab PO 1,000 mg BID [facility] Administration Methylprednisolone Sodium Succinate 40 mg 03/09/22 19:45 03/10/22 06:35 Methylprednisolone Sod Succi 40 Mg/Ml 1 Ml Vial IV 40 mg Q6HR [facility] Administration Metoprolol Tartrate 100 mg 03/09/22 21:00 03/09/22 21:26 Metoprolol Tartrate 50 Mg Tab PO 100 mg BID [facility] Administration Morphine Sulfate 2 mg 03/09/22 19:39 03/10/22 05:15 Morphine Sulfate 2 Mg/Ml Syringe IVP 2 mg Q4HR PRN Administration Pain/Discomfort Nitroglycerin 0.4 mg 03/09/22 15:55 Nitroglycerin Sl Tabs 0.4 Mg Tab SUBLINGUAL Q5M PRN Chest Pain Ondansetron HCl 4 mg 03/09/22 21:52 Ondansetron 4 Mg/2 Ml Vial IVP Q6HR PRN Nausea And Vomiting Pantoprazole Sodium 40 mg 03/10/22 07:30 03/10/22 06:36 Pantoprazole 40 Mg Tablet PO 40 mg AC-BRKFST INDERJ[facility] Administration Potassium Chloride 10 meq 03/10/22 09:00 Potassium Chloride Er 10 Meq Tab.Er.Prt PO DAILY [facility] Intake and Output 03/09/22 03/10/22 03/10/22 22:59 06:59 14:59 Other: # Voids 1 1 Weight 74.843 kg 03/09/22 23:28 03/09/22 13:50
--- NOTE | 2022-03-10 14:29 | P.PN ---
Subjective Progress Note Date: 03/10/22 HISTORY OF PRESENT ILLNESS: This is a 56-year-old male patient of rosita and Dr. Ga with past medical history of coronary artery disease status post 6 vessel CABG 2006 with MAE to LAD, saphenous venous graft to the PDA, saphenous venous graft to the obtuse marginal one, radial artery to the obtuse marginal branch 2 and saphenous venous graft to the obtuse marginal 3 followed by heart catheterization with PCI and stent of the saphenous venous graft to the RCA in 2015 at which time he pre sented with non-ST elevated myocardial infarction. Most recent cardiac catheterization was performed in March of 2019 which revealed severe triple- vessel coronary artery disease with a patent ramus intermediate, patent SVG to the OM, patent MAE to the LAD, and occluded saphenous vein graft to the RCA which is chronic from before. Medical therapy was advised at that time. History of hypertension hypertensive cardiovascular disease with left ventricular hypertrophy, hyperlipidemia, ischemic cardiomyopathy, paroxysmal atrial fibrillation currently on Eliquis , diabetes mellitus type 2 with diabetic polyneuropathy, hyperlipidemia, asthma, obstructive sleep apnea on CPAP, chronic low back pain, DVT in the past, patient has been following with me on a regular basis, he developed to have a significant shortness breath associated with increased coughing and pleuritic chest pain ended up coming to the emergency department at [facility] today because of increased chest pain associa raquel with increased shortness breath, he was found to be positive for RSV, and he was in atrial fibrillation with rapid ventricular response, patient was started on Solu-Medrol 40 mg IV push every 6 hours, he was also placed on DuoNeb 3 and an immunization 4 times every day as well as oxygen support, he was admitted to the hospital with cardiology and pulmonary evaluation, patient also wa antonio caldwell and he stated that he has not been taking his blood pressure medications over the last few days, because she was not feeling well. 03/10: Patient is seen today on the cardiac stepdown unit. Patient has been resumed on his home antihypertensive medications and blood pressure is well controlled. He has been seen by cardiology with plan to continue current medications and obtain echocardiogram. Patient is also been seen by pulmonary medicine and maintained on Pulmicort, DuoNeb treatments and IV Solu-Medrol. Patient continues to have a cough with clear sputum production. Breathing stat us is stable. We'll plan to decrease frequency of Solu-Medrol to every 12 hours. REVIEW OF SYSTEMS: Constitutional: No documented fever, no chills, no night sweats. No weight change. positive for weakness,positive for fatigue or lethargy. No daytime sleepiness. HEENT: No headache. No blurred vision or double vision, no loss of vision. No loss of Hearing, no ringing in the ears, no dizziness. No nasal drainage or congestion. No epistaxis. No sore throat. Lungs: positive for shortness of breath, positive for cough, minimal sputum production. positive for wheezing. Reports dyspnea with activity. Cardiovascular: pleuritic chest pain, no lower extremity edema. No palpitations. No paroxysmal nocturnal dyspnea. No orthopnea. No lightheadedness or dizziness. No syncopal episodes. Abdominal: Reports abdominal pain. No nausea, vomiting. No diarrhea. No constipation. No bloody or tarry stools reports loss of appetite. Genitourinary: No dysuria, increased frequency, urgency. No urinary retention. Musculoskeletal: No myalgias. No muscle weakness, no gait dysfunction, no frequent falls. No back pain. No neck pain. Integumentary: No wounds, no lesions. No rash or pruritus. No unusual bruising. No change in hair or nails. Neurologic: No aphasia. No facial droop. No change in mentation. No head injury. No headache. No paralysis. No paresthesia. Psychiatric: No depression. No anxiety. No mood swings. Endocrine: Noted abnormal blood sugars. No weight change. PHYSICAL EXAMINATION: General: 56-year-old male laying down in bed in no respiratory distress. HEENT: Head is atraumatic, normocephalic, pupils were equal round reactive to light, conjunctivae were pale, mucous membranes of the mouth are somewhat dry. Neck: Supple, no JVP. Chest: Decreased breath sounds at the bases, few rhonchi, positive for expiratory wheezes, no chest wall tenderness, no intercostal retractions. Heart: First heart sound is normal, second heart sounds normal, irregularly irregular, there is systolic ejection murmur 2/6 located in the left sternal border. Abdomen: Soft, nontender, nondistended, positive bowel sounds. Extremities: There is no edema no calf tenderness DP +1 bilaterally. Neurologic examination: Patient is awake alert and oriented X 3, cranial nerves II-12 appear grossly intact, muscle power were 5 out of 5 in upper extremities and 5 out of 5 in bilateral lower extremities, deep tendon reflexes normal bilaterally. ASSESSMENT AND PLAN: 1. Acute hypoxemic respiratory failure due to acute asthma exacerbation complicated by RSV infection . Continue oxygen support, start the patient on Solu-Medrol 40 mg IV push decreased to every 12 hours, continue DuoNeb 3 mg nebulization 4 times every day, contact/droplet precautions, pulmonary cons ultation. 2. Atrial fibrillation with rapid ventricular response. Restart the patient back on his metoprolol 100 mg orally twice every day, continue to monitor the patient very closely, restart the patient back on Eliquis 2.5 mg orally twice every day. Cardiology consultation appreciated. 3. Accelerated hypertension. Patient has been off his blood pressure medication for the last few days. Start the patient on losartan 100/25 mg orally once every day, continue patient on metoprolol 100 mg orally twice every day, continue hydralazine 50 mg orally twice every day, continue clonidine 0.1 mg orally twice every day monitor the patient blood pressure very closely. 4. Diabetes mellitus type 2, uncontrolled with hyperglycemia secondary to noncompliance and use of steroids. Restart the patient on Lantus 23 units at bedtime along with a sliding scale insulin monitor the patient hemoglobin A1c, NovoLog 6 units with meals added. 5. Coronary artery disease status post CABG 6 as well as PCI in the past. Continue patient on Plavix 75 mg once every day, metoprolol 100 mg orally twice every day, continue patient on atorvastatin 80 mg orally once every day, continues Zetia 10 mg orally once every day. 6. Hyperlipidemia. Continue patient on atorvastatin 80 mg once every day, c ontinue Zetia 10 mg orally once every day, monitor lipid panel, keep LDL 55-70. 7. Diabetic polyneuropathy. Continue patient on gabapentin 100 mg orally 3 times every day. 8. Obstructive sleep apnea. Patient does have a CPAP at home. 9. Chronic low back pain. Continue gabapentin 900 mg orally 3 times every day. 10. Pleuritic chest pain. Start the patient on morphine 2 mg IV push every 4 hours as needed. 11. DVT prophylaxis. Continue Eliquis 2.5 mg orally twice every day. 12. GI prophylaxis. Start the patient on Protonix 40 mg orally once every day. 13. Admit to inpatient. Estimated length of stay 2 midnights. 14. Patient's full code. Discharge plan: Home tomorrow Impression and plan of care have been directed as dictated by the signing physician. Dipika Mendez nurse practitioner acting as scribe for signing physician. Objective - Vital Signs Vital signs: Vital Signs Temp 97.6 F 03/10/22 11:47 Pulse 80 03/10/22 11:47 Resp 14 03/10/22 11:47 BP 103/60 03/10/22 11:47 Pulse Ox 96 03/10/22 11:47 FiO2 Intake & Output 03/09/22 03/10/22 03/10/22 18:59 06:59 18:59 Intake Total 100 Balance 100 Weight 74.843 kg 74.843 kg Intake: Oral 100 Other: # Voids 1 1 1 - Labs CBC & Chem 7: 03/09/22 23:28 03/09/22 13:50 Labs: Abnormal Lab Results - Last 24 Hours (Table) 03/09/22 03/09/22 03/09/22 Range/Units 13:50 13:50 13:50 RBC (4.30-5.90) m/uL Hgb (13.0-17.5) gm/dL Hct (39.0-53.0) % Plt Count (150-450) k/uL Lymphocytes # (1.0-4.8) k/uL Potassium 3.2 L (3.5-5.1) mmol/L Glucose 206 H (74-99) mg/dL POC Glucose (mg/dL) (70-110) mg/dL Total Bilirubin 1.5 H (0.2-1.3) mg/dL Troponin I 0.050 H* (0.000-0.034) ng/mL RSV (PCR) Detected A (Not Detectd) 03/09/22 03/09/22 03/09/22 Range/Units 14:42 16:58 17:51 RBC 3.37 L (4.30-5.90) m/uL Hgb 9.5 L (13.0-17.5) gm/dL Hct 27.6 L (39.0-53.0) % Plt Count 109 L (150-450) k/uL Lymphocytes # 0.3 L (1.0-4.8) k/uL Potassium (3.5-5.1) mmol/L Glucose (74-99) mg/dL POC Glucose (mg/dL) 318 H (70-110) mg/dL Total Bilirubin (0.2-1.3) mg/dL Troponin I 0.048 H* (0.000-0.034) ng/mL RSV (PCR) (Not Detectd) 03/09/22 03/09/22 03/10/22 Range/Units 20:39 23:28 06:21 RBC (4.30-5.90) m/uL Hgb (13.0-17.5) gm/dL Hct 38.1 L (39.0-53.0) % Plt Count 137 L (150-450) k/uL Lymphocytes # 0.3 L (1.0-4.8) k/uL Potassium (3.5-5.1) mmol/L Glucose (74-99) mg/dL POC Glucose (mg/dL) 424 H 207 H (70-110) mg/dL Total Bilirubin (0.2-1.3) mg/dL Troponin I (0.000-0.034) ng/mL RSV (PCR) (Not Detectd) 03/10/22 Range/Units 11:40 RBC (4.30-5.90) m/uL Hgb (13.0-17.5) gm/dL Hct (39.0-53.0) % Plt Count (150-450) k/uL Lymphocytes # (1.0-4.8) k/uL Potassium (3.5-5.1) mmol/L Glucose (74-99) mg/dL POC Glucose (mg/dL) 236 H (70-110) mg/dL Total Bilirubin (0.2-1.3) mg/dL Troponin I (0.000-0.034) ng/mL RSV (PCR) (Not Detectd)
[2022-03-10 16:27] LABS: Glucose,Whole Blood 288 mg/dL (70-110)
[2022-03-10] MEDS: SYMBICORT 160-4.5 MCG INHALER INHALATION SCH (19:54)
[2022-03-10 21:08] LABS: Glucose,Whole Blood 291 mg/dL (70-110)
[2022-03-10] MEDS: EZETIMIBE 10 MG TAB PO SCH (21:09)
[2022-03-10] MEDS: ATORVASTATIN 80 MG TAB PO SCH (21:09)
[2022-03-11] MEDS: MORPHINE SULFATE 2 MG/ML SYRINGE IVP PRN ×3 (02:49→19:43)
[2022-03-11 06:28] LABS: Glucose,Whole Blood 358 mg/dL (70-110)
[2022-03-11] MEDS: INSULIN ASPART (NovoLOG) 100 UNIT/ML VIAL SQ SCH ×7 (06:36→21:48)
[2022-03-11] MEDS: PANTOPRAZOLE 40 MG TABLET PO SCH (06:37)
[2022-03-11] MEDS: SYMBICORT 160-4.5 MCG INHALER INHALATION SCH ×2 (07:33→19:24)
[2022-03-11] MEDS: IPRATROPIUM-ALBUTEROL 3 ML NEB INHALATION PRN (07:33)
[2022-03-11] MEDS: methylPREDNISolone SOD SUCCI 40 MG/ML 1 ML VIAL IV SCH ×2 (09:09→21:40)
[2022-03-11] MEDS: hydroCHLOROthiazide 12.5 MG CAP PO SCH (09:09)
[2022-03-11] MEDS: METOPROLOL TARTRATE 50 MG TAB PO SCH ×2 (09:10→21:41)
[2022-03-11] MEDS: metFORMIN 500 MG TAB PO SCH ×2 (09:10→21:40)
[2022-03-11] MEDS: POTASSIUM CHLORIDE ER 10 MEQ TAB.ER.PRT PO SCH (09:10)
[2022-03-11] MEDS: cloNIDine HCL 0.1 MG TAB PO SCH ×2 (09:10→21:42)
[2022-03-11] MEDS: GABAPENTIN 300 MG CAP PO SCH ×2 (09:10→21:40)
[2022-03-11] MEDS: APIXABAN 2.5 MG TABLET PO SCH ×2 (09:10→21:41)
[2022-03-11] MEDS: hydrALAZINE HCL 50 MG TAB PO SCH ×2 (09:10→21:41)
[2022-03-11] MEDS: LOSARTAN 50 MG TAB PO SCH (09:10)
[2022-03-11] MEDS: CLOPIDOGREL 75 MG TAB PO SCH (09:10)
[2022-03-11] MEDS: FUROSEMIDE 40 MG TAB PO SCH (09:10)
--- NOTE | 2022-03-11 10:37 | CA ---
Transthoracic Echo Report Name: Lakhwinder Hirsch Age: 56 Gender: M : 1965 Exam Date: 03/10/2022 10:59 Exam Location: [facility] Ht (in): 67 Wt (lb): 165 Ordering Physician: Dipika Mendez Attending/Referring Phys: [id number], Vanessa [employer] Mechanic Julio César Shah RDCS Procedure CPT: Indications: LVF Cardiac Hx: Technical Quality: Contrast 1: Total Dose (mL): Contrast 2: Total Dose (mL): MEASUREMENTS (Male / Female) Normal Values 2D ECHO LV Diastolic Diameter PLAX 4.4 cm 4.2 - 5.9 / 3.9 - 5.3 cm LV Systolic Diameter PLAX 2.6 cm IVS Diastolic Thickness 1.2 cm 0.6 - 1.0 / 0.6 - 0.9 cm LVPW Diastolic Thickness 1.7 cm 0.6 - 1.0 / 0.6 - 0.9 cm LV Relative Wall Thickness 0.7 RV Internal Dim ED PLAX 3.1 cm LA Systolic Diameter LX 5.8 cm 3.0 - 4.0 / 2.7 - 3.8 cm LV Diastolic Volume MOD 4C 61.7 cm??? LV Systolic Volume MOD 4C 30.7 cm??? LV Ejection Fraction MOD 4C 50.3 % LV Diastolic Length 4C 8.3 cm LV Systolic Length 4C 6.9 cm LA Volume 118.2 cm??? 18 - 58 / 22 - 52 cm??? DOPPLER AV Peak Velocity 92.7 cm/s AV Peak Gradient 3.4 mmHg LVOT Peak Velocity 62.6 cm/s LVOT Peak Gradient 1.6 mmHg MV Area PHT 5.1 cm??? MR Peak Velocity 427.6 cm/s MR Peak Gradient 73.1 mmHg Mitral E Point Velocity 113.8 cm/s Mitral A Point Velocity 23.8 cm/s Mitral E to A Ratio 4.8 MV Deceleration Time 149.9 ms TR Peak Velocity 259.8 cm/s TR Peak Gradient 27.0 mmHg FINDINGS Left Ventricle Moderate concentric left ventricular hypertrophy. Left ventricular ejection fraction is estimated at 60 %. Possibly Amyloidosis Right Ventricle Mild right ventricular dilatation. Right Atrium Mild right atrial dilatation. Right atrium area 18.6 Left Atrium Severely increased left atrial diameter. Severely increased left atrial volume. Mitral Valve Mitral valve thickened. Mild mitral regurgitation. Aortic Valve Trileaflet aortic valve. Thickened aortic valve without stenosis. Tricuspid Valve Structurally normal tricuspid valve. Mild to moderate tricuspid regurgitation. RVSP 34.8 Pulmonic Valve Structurally normal pulmonic valve. Pericardium Small pericardial effusion. Aorta Normal size aortic root and proximal ascending aorta. CONCLUSIONS Moderate LVH with increased echogenicity of the myocardium Ejection fraction greater than 50 red 60% Prominent pericardial stripe Biatrial enlargement Previewed by: Dr. Jackson Jenkins MD (Electronically Signed) Final Date: 11 March 2022 10:36
--- NOTE | 2022-03-11 10:59 | P.PN ---
Subjective Progress Note Date: 03/11/22 HISTORY OF PRESENT ILLNESS: This is a 56-year-old male patient of rosita and Dr. Ga with past medical history of coronary artery disease status post 6 vessel CABG 2006 with MAE to LAD, saphenous venous graft to the PDA, saphenous venous graft to the obtuse marginal one, radial artery to the obtuse marginal branch 2 and saphenous venous graft to the obtuse marginal 3 followed by heart catheterization with PCI and stent of the saphenous venous graft to the RCA in 2015 at which time he pre sented with non-ST elevated myocardial infarction. Most recent cardiac catheterization was performed in March of 2019 which revealed severe triple- vessel coronary artery disease with a patent ramus intermediate, patent SVG to the OM, patent MAE to the LAD, and occluded saphenous vein graft to the RCA which is chronic from before. Medical therapy was advised at that time. History of hypertension hypertensive cardiovascular disease with left ventricular hypertrophy, hyperlipidemia, ischemic cardiomyopathy, paroxysmal atrial fibrillation currently on Eliquis , diabetes mellitus type 2 with diabetic polyneuropathy, hyperlipidemia, asthma, obstructive sleep apnea on CPAP, chronic low back pain, DVT in the past, patient has been following with me on a regular basis, he developed to have a significant shortness breath associated with increased coughing and pleuritic chest pain ended up coming to the emergency department at [facility] today because of increased chest pain associa raquel with increased shortness breath, he was found to be positive for RSV, and he was in atrial fibrillation with rapid ventricular response, patient was started on Solu-Medrol 40 mg IV push every 6 hours, he was also placed on DuoNeb 3 and an immunization 4 times every day as well as oxygen support, he was admitted to the hospital with cardiology and pulmonary evaluation, patient also wa antonio caldwell and he stated that he has not been taking his blood pressure medications over the last few days, because she was not feeling well. 03/10: Patient is seen today on the cardiac stepdown unit. Patient has been resumed on his home antihypertensive medications and blood pressure is well controlled. He has been seen by cardiology with plan to continue current medications and obtain echocardiogram. Patient is also been seen by pulmonary medicine and maintained on Pulmicort, DuoNeb treatments and IV Solu-Medrol. Patient continues to have a cough with clear sputum production. Breathing stat us is stable. We'll plan to decrease frequency of Solu-Medrol to every 12 hours. 03/11: Patient continues to complain of cough that is nonproductive with wheezing. Patient is been afebrile, heart rate in the 70s, blood pressure 116/77, pulse ox 95% on room air. Her blood glucose running between 236 and 358. Patient will be continued on IV Solu-Medrol and Lantus will be increased to 30 units. Patient will be transferred to [facility] floor. REVIEW OF SYSTEMS: Constitutional: No documented fever, no chills, no night sweats. No weight change. positive for weakness,positive for fatigue or lethargy. No daytime sleepiness. HEENT: No headache. No blurred vision or double vision, no loss of vision. No loss of Hearing, no ringing in the ears, no dizziness. No nasal drainage or congestion. No epistaxis. No sore throat. Lungs: positive for shortness of breath, positive for cough, denies sputum production. positive for wheezing. Reports dyspnea with activity. Cardiovascular: pleuritic chest pain, no lower extremity edema. No palpitations. No paroxysmal nocturnal dyspnea. No orthopnea. No lightheadedness or dizziness. No syncopal episodes. Abdominal: Reports abdominal pain. No nausea, vomiting. No diarrhea. No constipation. No bloody or tarry stools reports loss of appetite. Genitourinary: No dysuria, increased frequency, urgency. No urinary retention. Musculoskeletal: No myalgias. No muscle weakness, no gait dysfunction, no frequent falls. No back pain. No neck pain. Integumentary: No wounds, no lesions. No rash or pruritus. No unusual bruising. No change in hair or nails. Neurologic: No aphasia. No facial droop. No change in mentation. No head injury. No headache. No paralysis. No paresthesia. Psychiatric: No depression. No anxiety. No mood swings. Endocrine: Noted abnormal blood sugars despite medication changes. No weight change. PHYSICAL EXAMINATION: General: 56-year-old male laying down in bed in no respiratory distress. HEENT: Head is atraumatic, normocephalic, pupils were equal round reactive to light, conjunctivae were pale, mucous membranes of the mouth are somewhat dry. Neck: Supple, no JVP. Chest: Decreased breath sounds at the bases, few rhonchi, positive for expiratory wheezes, no chest wall tenderness, no intercostal retractions. Heart: First heart sound is normal, second heart sounds normal, irregularly irregular, there is systolic ejection murmur 2/6 located in the left sternal border. Abdomen: Soft, nontender, nondistended, positive bowel sounds. Extremities: There is no edema no calf tenderness DP +1 bilaterally. Neurologic examination: Patient is awake alert and oriented X 3, cranial nerves II-12 appear grossly intact.. ASSESSMENT AND PLAN: 1. Acute hypoxemic respiratory failure due to acute asthma exacerbation complicated by RSV infection . Continue oxygen support, continue the patient on Solu-Medrol 40 mg IV push decreased to every 12 hours, continue DuoNeb 3 mg nebulization 4 times every day, contact/droplet precautions, pulmonary consultation. 2. Atrial fibrillation with rapid ventricular response. Restart the patient back on his metoprolol 100 mg orally twice every day, continue to monitor the patient very closely, restart the patient back on Eliquis 2.5 mg orally twice every day. Cardiology consultation appreciated. 3. Accelerated hypertension. Patient has been off his blood pressure medication for the last few days. Start the patient on losartan 100/25 mg orally once every day, continue patient on metoprolol 100 mg orally twice every day, continue hydralazine 50 mg orally twice every day, continue clonidine 0.1 mg orally twice every day monitor the patient blood pressure very closely. 4. Diabetes mellitus type 2, uncontrolled with hyperglycemia secondary to noncompliance and use of steroids. Restart the patient on increase Levemir to 30 units at bedtime along with a sliding scale insulin monitor the patient hemoglobin A1c, NovoLog 6 units with meals added. 5. Coronary artery disease status post CABG 6 as well as PCI in the past. Continue patient on Plavix 75 mg once every day, metoprolol 100 mg orally twice every day, continue patient on atorvastatin 80 mg orally once every day, continues Zetia 10 mg orally once every day. 6. Hyperlipidemia. Continue patient on atorvastatin 80 mg once every day, continue Zetia 10 mg orally once every day, monitor lipid panel, keep LDL 55-70. 7. Diabetic polyneuropathy. Continue patient on gabapentin 100 mg orally 3 times every day. 8. Obstructive sleep apnea. Patient does have a CPAP at home. 9. Chronic low back pain. Continue gabapentin 900 mg orally 3 times every day. 10. Pleuritic chest pain. Start the patient on morphine 2 mg IV push every 4 hours as needed. 11. DVT prophylaxis. Continue Eliquis 2.5 mg orally twice every day. 12. GI prophylaxis. Start the patient on Protonix 40 mg orally once every day. 13. Admit to inpatient. Estimated length of stay 2 midnights. 14. Patient's full code. Discharge plan: Home tomorrow Impression and plan of care have been directed as dictated by the signing physician. Dipika Mendez nurse practitioner acting as scribe for signing physician. Objective - Vital Signs Vital signs: Vital Signs Temp 97.7 F 03/11/22 08:00 Pulse 77 03/11/22 08:00 Resp 18 03/11/22 08:00 BP 116/77 03/11/22 08:00 Pulse Ox 95 03/11/22 08:00 FiO2 21 03/10/22 19:54 Intake & Output 03/10/22 03/11/22 03/11/22 18:59 06:59 18:59 Intake Total 280 118 Balance 280 118 Intake: Oral 280 118 Other: # Voids 1 2 - Labs CBC & Chem 7: 03/09/22 23:28 03/09/22 13:50 Labs: Abnormal Lab Results - Last 24 Hours (Table) 03/10/22 03/10/22 03/10/22 Range/Units 11:40 16:25 21:06 POC Glucose (mg/dL) 236 H 288 H 291 H (70-110) mg/dL 03/11/22 Range/Units 06:26 POC Glucose (mg/dL) 358 H (70-110) mg/dL
--- NOTE | 2022-03-11 11:29 | P.PN ---
Subjective Progress Note Date: 03/11/22 Principal diagnosis: Shortness of breath/cough. Pulmonary consult dated 03/10/2022. 56-year-old male who presented to the emergency department on March 09 complaining of cough, chest congestion, and shortness of breath. The patient comes in with a two to four-day history of increasing shortness of breath, cough, chest congestion, and minimal phlegm production. He denied any fever or chills. He denies any chest pain or chest discomfort. The patient was evaluated in the emergency department, and admitted to the hospital. His chest x-ray was normal. He did test positive for respiratory syncytial virus. The patient denies a history of any significant lung disease. The patient is a lifelong nonsmoker. Currently, he's on room air. He's not receiving any IV fluids. White count 8.6, hemoglobin 13.1, hematocrit 38.1, and platelet count 237,000. Sodium 137, potassium 3.2, chlorides 98, CO2 29, BUN 15, creatinine 0.94. He did test positive for RSV. He tested negative for influenza, and coronavirus infection. Chest x-ray was reported as being normal. Progress note dated 03/11/2022. 56-year-old male seen yesterday in consultation. Please see the note above. The patient came in with cough, shortness of breath, and chest congestion. He was found to be positive for RSV. Currently, the patient is on room air. He's not receiving any IV fluids. As mentioned yesterday, I thought the patient could be discharged home on some prednisone. Clinically he is doing much better. No new labs today. Objective - Vital Signs Vital signs: Vital Signs Temp 97.1 F L 03/11/22 11:22 Pulse 66 03/11/22 11:22 Resp 18 03/11/22 11:22 BP 117/61 03/11/22 11:22 Pulse Ox 98 03/11/22 11:22 FiO2 21 03/10/22 19:54 Intake & Output 03/10/22 03/11/22 03/11/22 18:59 06:59 18:59 Intake Total 280 118 Balance 280 118 Intake: Oral 280 118 Other: # Voids 1 2 - Exam No acute distress, oriented 3. No respiratory distress, audible wheezing, use of accessory muscles, or conversational dyspnea. HEENT examination is grossly unremarkable. Neck supple. Full range of motion. No adenopathy thyromegaly or neck vein distention. Cardiovascular examination reveals regular rhythm rate. S1-S2 normal. No S3 or S4. No discernible murmur noted. Heart sounds are distant. Heart rate 66 bpm. Lungs reveal scattered bilateral expiratory rhonchi and wheezes. Breath sounds equal. Room air saturation 98%. No crackles appreciated. Abdomen soft bowel sounds are heard. No masses or tenderness. Extremities are intact. No cyanosis or edema. Fingertip clubbing is noted. Skin is without rash or lesion. Neurologic examination is brief but nonfocal. - Labs CBC & Chem 7: 03/09/22 23:28 03/09/22 13:50 Labs: Abnormal Lab Results - Last 24 Hours (Table) 03/10/22 03/10/22 03/10/22 Range/Units 11:40 16:25 21:06 POC Glucose (mg/dL) 236 H 288 H 291 H (70-110) mg/dL 03/11/22 Range/Units 06:26 POC Glucose (mg/dL) 358 H (70-110) mg/dL Assessment and Plan Assessment: Acute bronchitis with bronchospasm and bronchial inflammation, secondary to RSV infection. Remote history of mild asthma. History of CAD, with previous bypass grafting, 6 vessel. Previous cardiac catheterizations with stent placement. History of hypertension. History of hyperlipidemia. Diabetes mellitus. History of deep venous thrombosis. History of myocardial infarction. History of obstructive sleep apnea syndrome, maintained on CPAP. History of cellulitis. Diabetic neuropathy. History of spinal fusion. Left forearm compartment syndrome, with previous fasciotomy. Plan: Plan dated 03/10/2022. Labs, x-rays, and medications are reviewed. The patient appears quite comfortable. Room air saturation 98%. The patient did test positive for respiratory syncytial virus, and he does have bronchospasm, and bronchial inflammation. The patient was placed on Symbicort. The patient continues on updrafts, and is also on Solu-Medrol, 40 mg IV push every 6 hours. We will continue to follow. In my opinion, the patient could be considered for early discharge, chest x-ray is normal. He is not requiring any supplemental oxygen. He could be discharged home on Symbicort, prednisone and a rescue inhaler. Plan dated 03/11/2022. The patient's doing very well. The patient informed me that he will not be discharged today but rather tomorrow according to his hospital doctor. The patient is stable, could be considered for discharge. Labs, x-rays, medications are reviewed. The patient's on appropriate medications. Prognosis is thought to be generally good. No additional recommendations are made. Time with Patient: Less than 30
[2022-03-11 11:48] LABS: Glucose,Whole Blood 295 mg/dL (70-110)
--- NOTE | 2022-03-11 12:44 | P.PN ---
Subjective Progress Note Date: 03/11/22 History of present illness: This is a 56-year-old male patient follows with Dr. Ga in the office. He has a known history of coronary artery disease with prior bypass surgery and stent of the left circumflex, diabetes, hypertension, hyperlipidemia, obstructive sleep apnea, prior DVT history, nicotine dependence, COPD, ischemic cardiomyopathy, persistent atrial fibrillation status post cardioversion. We have been asked to see patient for hypertensive urgency and atrial fibrillation. Patient states that he has had upper respiratory symptoms that started on continued to worsen and subsequently developed chest pain from coughing. He thought he had pneumonia. He states he has been feeling dizzy off and on in his legs get tired. He denies any fever or chills. Because of his symptoms, patient did not take his medications over the weekend and he presented with a blood pressure of 205/116. Patient received 1 dose of IV the hydralazine and has been resumed on his home medications with improvement of his blood pressure to 103/60, heart rate is running in the 70s, pulse ox 96% on room air. EKG atrial fibrillation with ventricular rate of 92. Chest x-ray reveals no acute process. Correlate for cardiomegaly and COPD WBC 8.6, hemoglobin 13.1, platelet count 137. Potassium 3.2 and has been replaced. Blood sugar 424. Total bilirubin is 1.5 otherwise liver function tests are normal. Troponins 0.05, 0.048. Influenza A, influenza B, Covid not detected. RSV detected. Cardiac catheterization 11/11 status post stenting of the proximal left circumflex coronary artery, patent MAE to LAD patent, LAD distal to the MAE anastomosis has diffuse disease, SVG to OM patent. SVG to RCA occluded Electrocardioversion 04/2019 for atrial fibrillation Echocardiogram 02/2020 revealed EF of 50-55%, moderate left ventricular hypertrophy. Moderate mitral regurgitation, moderate tricuspid regurgitation. PA AST 44 mmHg. Mild pulmonic regurgitation. Exercise stress test 11/2019 was nondiagnostic due to baseline EKG abnormalities Home cardiac medications eliquis 2.5 mg twice daily, atorvastatin 80 mg at bedtime, Catapres 0.1 mg twice daily, Plavix 75 mg daily, Zetia 10 mg at bedtime, Lasix 40 mg daily, hydralazine 50 mg twice daily, Hyzaar one daily, Lopressor 100 mg twice daily, potassium 10 mEq daily. 03/11 The patient is complaining of a nonproductive cough. He continues to have wheezing. 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 He has been resumed on his home cardiac medications and blood pressure is improved. Blood pressure 117/61, heart rate in the 60s and 70s. He denies having any chest pain. Echocardiogram reveals EF greater than 50-60. Prominent pericardial stripe. Biatrial enlargement. Physical examination: Gen: This is a 56-year-old male. He is resting in bed appears to be comfortable and in no acute distress VS: reviewed HEENT: Head is atraumatic, normocephalic. Pupils equal, round. Sclerae is anicteric. NECK: Supple. No JVD. No lymphadenopathy. No thyromegaly. LUNGS: Expiratory wheeze. No intercostal retractions. HEART: Regular rate and rhythm. 2/6 systolic ejection murmur. ABDOMEN: Soft. Bowel sounds are present. No masses. No tenderness. EXTREMITIES: No pedal edema. No calf tenderness. NEUROLOGICAL: Patient is awake, alert and oriented x3. Cranial nerves 2 through 12 are grossly intact. Assessment: Hypertensive urgency Persistent atrial fibrillation Coronary artery disease with prior bypass surgery and stents Troponin abnormality not consistent with acute coronary syndrome, most likely due to hypertension Diabetes Hypertension Hyperlipidemia Ischemic cardiomyopathy COPD Sleep apnea Plan: Continue patient on home cardiac medications Patient is cleared from for discharge from cardiology. Cardiology will follow on an as-needed basis. Please reconsult for any new concerns.. Nurse practitioner note has been reviewed, I agree with documented findings and plan of care. Patient was seen and examined. Objective - Vital Signs Vital signs: Vital Signs Temp 98.0 F 03/11/22 00:00 Pulse 70 03/11/22 07:44 Resp 19 03/11/22 04:00 BP 125/79 03/11/22 04:00 Pulse Ox 97 03/11/22 04:00 FiO2 21 03/10/22 19:54 Intake & Output 03/10/22 03/11/22 03/11/22 18:59 06:59 18:59 Intake Total 280 Balance 280 Intake: Oral 280 Other: # Voids 1 2 - Labs CBC & Chem 7: 03/09/22 23:28 03/09/22 13:50 Labs: Abnormal Lab Results - Last 24 Hours (Table) 03/10/22 03/10/22 03/10/22 Range/Units 11:40 16:25 21:06 POC Glucose (mg/dL) 236 H 288 H 291 H (70-110) mg/dL 03/11/22 Range/Units 06:26 POC Glucose (mg/dL) 358 H (70-110) mg/dL
[2022-03-11 16:51] LABS: Glucose,Whole Blood 125 mg/dL (70-110)
[2022-03-11 20:41] LABS: Glucose,Whole Blood 193 mg/dL (70-110)
[2022-03-11] MEDS: INSULIN DETEMIR (LEVEMIR) 100 UNIT/ML SYR SQ SCH (21:40)
[2022-03-11] MEDS: ATORVASTATIN 80 MG TAB PO SCH (21:41)
[2022-03-11] MEDS: EZETIMIBE 10 MG TAB PO SCH (21:42)
[2022-03-12] MEDS: guaiFENesin SYRUP 100MG/5ML 200 MG/10 ML CUP PO PRN ×2 (01:55→17:14)
[2022-03-12] MEDS: MORPHINE SULFATE 2 MG/ML SYRINGE IVP PRN ×3 (01:55→18:08)
[2022-03-12 05:07] LABS: Chol/HDL Ratio 5.89 Ratio; LDL Cholesterol,Calculated 161.9 mg/dL (0.0-131.0); VLDL Calculation 10.78 mg/dL (5.00-40.00)
[2022-03-12 05:53] LABS: Glucose,Whole Blood 247 mg/dL (70-110)
[2022-03-12] MEDS: PANTOPRAZOLE 40 MG TABLET PO SCH (06:59)
[2022-03-12] MEDS: INSULIN ASPART (NovoLOG) 100 UNIT/ML VIAL SQ SCH ×7 (06:59→22:00)
[2022-03-12] MEDS: hydroCHLOROthiazide 12.5 MG CAP PO SCH (08:58)
[2022-03-12] MEDS: hydrALAZINE HCL 50 MG TAB PO SCH ×2 (08:58→21:59)
[2022-03-12] MEDS: LOSARTAN 50 MG TAB PO SCH (08:58)
[2022-03-12] MEDS: POTASSIUM CHLORIDE ER 10 MEQ TAB.ER.PRT PO SCH (08:58)
[2022-03-12] MEDS: metFORMIN 500 MG TAB PO SCH ×2 (08:58→21:59)
[2022-03-12] MEDS: SYMBICORT 160-4.5 MCG INHALER INHALATION SCH ×2 (08:58→20:04)
[2022-03-12] MEDS: FUROSEMIDE 40 MG TAB PO SCH (08:59)
[2022-03-12] MEDS: GABAPENTIN 300 MG CAP PO SCH ×2 (08:59→21:59)
[2022-03-12] MEDS: CLOPIDOGREL 75 MG TAB PO SCH (08:59)
[2022-03-12] MEDS: APIXABAN 2.5 MG TABLET PO SCH ×2 (08:59→21:59)
[2022-03-12] MEDS: METOPROLOL TARTRATE 50 MG TAB PO SCH ×2 (08:59→21:59)
[2022-03-12] MEDS: cloNIDine HCL 0.1 MG TAB PO SCH ×2 (08:59→21:59)
[2022-03-12] MEDS: predniSONE 20 MG TAB PO SCH (09:00)
--- NOTE | 2022-03-12 10:36 | P.PN ---
Subjective Progress Note Date: 03/12/22 Principal diagnosis: Shortness of breath/cough. Pulmonary consult dated 03/10/2022. 56-year-old male who presented to the emergency department on March 09 complaining of cough, chest congestion, and shortness of breath. The patient comes in with a two to four-day history of increasing shortness of breath, cough, chest congestion, and minimal phlegm production. He denied any fever or chills. He denies any chest pain or chest discomfort. The patient was evaluated in the emergency department, and admitted to the hospital. His chest x-ray was normal. He did test positive for respiratory syncytial virus. The patient denies a history of any significant lung disease. The patient is a lifelong nonsmoker. Currently, he's on room air. He's not receiving any IV fluids. White count 8.6, hemoglobin 13.1, hematocrit 38.1, and platelet count 237,000. Sodium 137, potassium 3.2, chlorides 98, CO2 29, BUN 15, creatinine 0.94. He did test positive for RSV. He tested negative for influenza, and coronavirus infection. Chest x-ray was reported as being normal. Progress note dated 03/11/2022. 56-year-old male seen yesterday in consultation. Please see the note above. The patient came in with cough, shortness of breath, and chest congestion. He was found to be positive for RSV. Currently, the patient is on room air. He's not receiving any IV fluids. As mentioned yesterday, I thought the patient could be discharged home on some prednisone. Clinically he is doing much better. No new labs today. Progress note dated 03/12/2022. 56-year-old male seen in consultation 2 days ago. He was admitted with a diagnosis of RSV infection, with reactive bronchospasm and bronchial inflammation. The patient's currently on room air. The patient is not receivin g any IV fluids. In our opinion, the patient could be discharged home. The patient's clinically very stable. No new lab data today. Glucose was 247. Objective - Vital Signs Vital signs: Vital Signs Temp 97.5 F L 03/12/22 07:02 Pulse 61 03/12/22 09:00 Resp 19 03/12/22 09:00 BP 118/72 01/19/23 07:02 Pulse Ox 92 L 03/12/22 07:02 FiO2 21 03/10/22 19:54 Intake & Output 03/11/22 03/12/22 03/12/22 18:59 06:59 18:59 Intake Total 478 Balance 478 Intake: Oral 478 Other: # Voids 5 - Exam No acute distress, oriented 3. No respiratory distress, audible wheezing, use of accessory muscles, or conversational dyspnea. HEENT examination is grossly unremarkable. Neck supple. Full range of motion. No adenopathy thyromegaly or neck vein distention. Cardiovascular examination reveals regular rhythm rate. S1-S2 normal. No S3 or S4. No discernible murmur noted. Heart sounds are distant. Heart rate 61 bpm. Lungs reveal scattered bilateral expiratory rhonchi and wheezes. Breath sounds equal. Room air saturation 97 %. No crackles appreciated. Abdomen soft bowel sounds are heard. No masses or tenderness. Extremities are intact. No cyanosis or edema. Fingertip clubbing is noted. Skin is without rash or lesion. Neurologic examination is brief but nonfocal. - Labs CBC & Chem 7: 03/09/22 23:28 03/09/22 13:50 Labs: Abnormal Lab Results - Last 24 Hours (Table) 03/10/22 03/11/22 03/11/22 Range/Units 08:50 11:41 16:50 POC Glucose (mg/dL) 295 H 125 H (70-110) mg/dL Cholesterol 208.00 H (0.00-200.00) mg/dL LDL Cholesterol, Calc 161.9 H (0.0-131.0) mg/dL HDL Cholesterol 35.30 L (40.00-60.00) mg/dL 03/11/22 03/12/22 Range/Units 20:39 05:49 POC Glucose (mg/dL) 193 H 247 H (70-110) mg/dL Cholesterol (0.00-200.00) mg/dL LDL Cholesterol, Calc (0.0-131.0) mg/dL HDL Cholesterol (40.00-60.00) mg/dL Assessment and Plan Assessment: Acute bronchitis with bronchospasm and bronchial inflammation, secondary to RSV infection. Remote history of mild asthma. History of CAD, with previous bypass grafting, 6 vessel. Previous cardiac catheterizations with stent placement. History of hypertension. History of hyperlipidemia. Diabetes mellitus. History of deep venous thrombosis. History of myocardial infarction. History of obstructive sleep apnea syndrome, maintained on CPAP. History of cellulitis. Diabetic neuropathy. History of spinal fusion. Left forearm compartment syndrome, with previous fasciotomy. Plan: Plan dated 03/10/2022. Labs, x-rays, and medications are reviewed. The patient appears quite comfortable. Room air saturation 98%. The patient did test positive for respiratory syncytial virus, and he does have bronchospasm, and bronchial inflammation. The patient was placed on Symbicort. The patient continues on updrafts, and is also on Solu-Medrol, 40 mg IV push every 6 hours. We will continue to follow. In my opinion, the patient could be considered for early discharge, chest x-ray is normal. He is not requiring any supplemental oxygen. He could be discharged home on Symbicort, prednisone and a rescue inhaler. Plan dated 03/11/2022. The patient's doing very well. The patient informed me that he will not be discharged today but rather tomorrow according to his hospital doctor. The patient is stable, could be considered for discharge. Labs, x-rays, medications are reviewed. The patient's on appropriate medications. Prognosis is thought to be generally good. No additional recommendations are made. Plan dated 03/12/2022. The patient's doing very well. The patient and our opinion could be discharged. She is on appropriate medications. Solu-Medrol has been converted to prednisone. Labs, x-rays, and medications are reviewed. Prognosis is thought to be generally good. No additional recommendations are made at this time. Time with Patient: Less than 30
[2022-03-12 11:58] LABS: Glucose,Whole Blood 182 mg/dL (70-110)
[2022-03-12] MEDS: IPRATROPIUM-ALBUTEROL 3 ML NEB INHALATION PRN (13:52)
--- NOTE | 2022-03-12 14:50 | P.PN ---
Subjective Progress Note Date: 03/12/22 HISTORY OF PRESENT ILLNESS: This is a 56-year-old male patient of rosita and Dr. Ga with past medical history of coronary artery disease status post 6 vessel CABG 2006 with MAE to LAD, saphenous venous graft to the PDA, saphenous venous graft to the obtuse marginal one, radial artery to the obtuse marginal branch 2 and saphenous venous graft to the obtuse marginal 3 followed by heart catheterization with PCI and stent of the saphenous venous graft to the RCA in 2015 at which time he pre sented with non-ST elevated myocardial infarction. Most recent cardiac catheterization was performed in March of 2019 which revealed severe triple- vessel coronary artery disease with a patent ramus intermediate, patent SVG to the OM, patent MAE to the LAD, and occluded saphenous vein graft to the RCA which is chronic from before. Medical therapy was advised at that time. History of hypertension hypertensive cardiovascular disease with left ventricular hypertrophy, hyperlipidemia, ischemic cardiomyopathy, paroxysmal atrial fibrillation currently on Eliquis , diabetes mellitus type 2 with diabetic polyneuropathy, hyperlipidemia, asthma, obstructive sleep apnea on CPAP, chronic low back pain, DVT in the past, patient has been following with me on a regular basis, he developed to have a significant shortness breath associated with increased coughing and pleuritic chest pain ended up coming to the emergency department at [facility] today because of increased chest pain associa raquel with increased shortness breath, he was found to be positive for RSV, and he was in atrial fibrillation with rapid ventricular response, patient was started on Solu-Medrol 40 mg IV push every 6 hours, he was also placed on DuoNeb 3 and an immunization 4 times every day as well as oxygen support, he was admitted to the hospital with cardiology and pulmonary evaluation, patient also wa antonio caldwell and he stated that he has not been taking his blood pressure medications over the last few days, because she was not feeling well. 03/10: Patient is seen today on the cardiac stepdown unit. Patient has been resumed on his home antihypertensive medications and blood pressure is well controlled. He has been seen by cardiology with plan to continue current medications and obtain echocardiogram. Patient is also been seen by pulmonary medicine and maintained on Pulmicort, DuoNeb treatments and IV Solu-Medrol. Patient continues to have a cough with clear sputum production. Breathing stat us is stable. We'll plan to decrease frequency of Solu-Medrol to every 12 hours. 03/11: Patient continues to complain of cough that is nonproductive with wheezing. Patient is been afebrile, heart rate in the 70s, blood pressure 116/77, pulse ox 95% on room air. Her blood glucose running between 236 and 358. Patient will be continued on IV Solu-Medrol and Lantus will be increased to 30 units. Patient will be transferred to [facility] floor. 03/12: Patient is seen today on the [facility] floor. Cardiology has signed off. Patient continues to have wheezing and cough that is nonproductive. He has been afebrile, heart rate in the 60s and 70s, blood pressure 118/72 and pulse ox 92% on room air. Capillary blood glucose are improved running between 125 and 247. Pulmonary medicine has transition patient to oral prednisone. He is continued on nebulizer treatments, Robitussin and Symbicort. Patient is also continued on his home medication regime. Anticipate discharge home tomorrow. REVIEW OF SYSTEMS: Constitutional: No documented fever, no chills, no night sweats. No weight change. positive for weakness,positive for fatigue or lethargy. No daytime sleepiness. HEENT: No headache. No blurred vision or double vision, no loss of vision. No loss of Hearing, no ringing in the ears, no dizziness. No nasal drainage or congestion. No epistaxis. No sore throat. Lungs: positive for shortness of breath, positive for cough, denies sputum production. positive for wheezing. Reports dyspnea with activity. Cardiovascular: pleuritic chest pain, no lower extremity edema. No pal pitations. No paroxysmal nocturnal dyspnea. No orthopnea. No lightheadedness or dizziness. No syncopal episodes. Abdominal: Reports abdominal pain. No nausea, vomiting. No diarrhea. No constipation. No bloody or tarry stools reports loss of appetite. Genitourinary: No dysuria, increased frequency, urgency. No urinary retention. Musculoskeletal: No myalgias. No muscle weakness, no gait dysfunction, no frequent falls. No back pain. No neck pain. Integumentary: No wounds, no lesions. No rash or pruritus. No unusual bruising. No change in hair or nails. Neurologic: No aphasia. No facial droop. No change in mentation. No head injury. No headache. No paralysis. No paresthesia. Psychiatric: No depression. No anxiety. No mood swings. Endocrine: Noted abnormal blood sugars with improvement. No weight change. PHYSICAL EXAMINATION: General: 56-year-old male laying down in bed in no respiratory distress. HEENT: Head is atraumatic, normocephalic, pupils were equal round reactive to light, conjunctivae were pale, mucous membranes of the mouth are somewhat dry. Neck: Supple, no JVP. Chest: Decreased breath sounds at the bases, few rhonchi, positive for expiratory wheezes, no chest wall tenderness, no intercostal retractions. Heart: First heart sound is normal, second heart sounds normal, irregularly irregular, there is systolic ejection murmur 2/6 located in the left sternal border. Abdomen: Soft, nontender, nondistended, positive bowel sounds. Extremities: There is no edema no calf tenderness DP +1 bilaterally. Neurologic examination: Patient is awake alert and oriented X 3. ASSESSMENT AND PLAN: 1. Acute hypoxemic respiratory failure due to acute asthma exacerbation complicated by RSV infection . Continue oxygen support, IV Solu-Medrol has been transitioned to oral prednisone, continue DuoNeb 3 mg nebulization 4 times every day, contact/droplet precautions, pulmonary consultation appreciated. 2. Atrial fibrillation with rapid ventricular response. Restart the patient back on his metoprolol 100 mg orally twice every day, continue to monitor the patient very closely, restart the patient back on Eliquis 2.5 mg orally twice every day. Cardiology consultation appreciated. 3. Accelerated hypertension. Patient has been off his blood pressure medication for the last few days. Start the patient on losartan 100/25 mg orally once every day, continue patient on metoprolol 100 mg orally twice every day, continue hydralazine 50 mg orally twice every day, continue clonidine 0.1 mg orally twice every day monitor the patient blood pressure very closely. 4. Diabetes mellitus type 2, uncontrolled with hyperglycemia secondary to noncompliance and use of steroids. Continue Levemir to 30 units at bedtime along with a sliding scale insulin monitor the patient hemoglobin A1c, NovoLog 6 units with meals added. 5. Coronary artery disease status post CABG 6 as well as PCI in the past. Continue patient on Plavix 75 mg once every day, metoprolol 100 mg orally twice every day, continue patient on atorvastatin 80 mg orally once every day, continues Zetia 10 mg orally once every day. 6. Hyperlipidemia. Continue patient on atorvastatin 80 mg once every day, continue Zetia 10 mg orally once every day, monitor lipid panel, keep LDL 55-70. 7. Diabetic polyneuropathy. Continue patient on gabapentin 100 mg orally 3 times every day. 8. Obstructive sleep apnea. Patient does have a CPAP at home. 9. Chronic low back pain. Continue gabapentin 900 mg orally 3 times every day. 10. Pleuritic chest pain. Start the patient on morphine 2 mg IV push every 4 hours as needed. 11. DVT prophylaxis. Continue Eliquis 2.5 mg orally twice every day. 12. GI prophylaxis. Start the patient on Protonix 40 mg orally once every day. 13. Admit to inpatient. Estimated length of stay 2 midnights. 14. Patient's full code. Discharge plan: Home tomorrow Impression and plan of care have been directed as dictated by the signing physician. Dipika Mendez nurse practitioner acting as scribe for signing physician. Objective - Vital Signs Vital signs: Vital Signs Temp 97.5 F L 03/12/22 07:02 Pulse 61 03/12/22 07:02 Resp 19 03/12/22 07:02 BP 118/72 03/12/22 07:02 Pulse Ox 92 L 03/12/22 07:02 FiO2 21 03/10/22 19:54 Intake & Output 03/11/22 03/12/22 03/12/22 18:59 06:59 18:59 Intake Total 478 Balance 478 Intake: Oral 478 Other: # Voids 5 - Labs CBC & Chem 7: 03/09/22 23:28 03/09/22 13:50 Labs: Abnormal Lab Results - Last 24 Hours (Table) 03/10/22 03/11/22 03/11/22 Range/Units 08:50 11:41 16:50 POC Glucose (mg/dL) 295 H 125 H (70-110) mg/dL Cholesterol 208.00 H (0.00-200.00) mg/dL LDL Cholesterol, Calc 161.9 H (0.0-131.0) mg/dL HDL Cholesterol 35.30 L (40.00-60.00) mg/dL 03/11/22 03/12/22 Range/Units 20:39 05:49 POC Glucose (mg/dL) 193 H 247 H (70-110) mg/dL Cholesterol (0.00-200.00) mg/dL LDL Cholesterol, Calc (0.0-131.0) mg/dL HDL Cholesterol (40.00-60.00) mg/dL
[2022-03-12 16:46] LABS: Glucose,Whole Blood 134 mg/dL (70-110)
[2022-03-12] MEDS: LOPERAMIDE 2 MG CAP PO PRN (18:41)
[2022-03-12 20:10] LABS: Glucose,Whole Blood 122 mg/dL (70-110)
[2022-03-12] MEDS: ATORVASTATIN 80 MG TAB PO SCH (21:59)
[2022-03-12] MEDS: EZETIMIBE 10 MG TAB PO SCH (21:59)
[2022-03-12] MEDS: INSULIN DETEMIR (LEVEMIR) 100 UNIT/ML SYR SQ SCH (22:00)
[2022-03-13] MEDS: MORPHINE SULFATE 2 MG/ML SYRINGE IVP PRN ×4 (01:41→21:12)
[2022-03-13] MEDS: guaiFENesin SYRUP 100MG/5ML 200 MG/10 ML CUP PO PRN ×2 (01:41→16:02)
[2022-03-13] MEDS: LOPERAMIDE 2 MG CAP PO PRN (04:25)
[2022-03-13 06:04] LABS: Glucose,Whole Blood 113 mg/dL (70-110)
[2022-03-13] MEDS: INSULIN ASPART (NovoLOG) 100 UNIT/ML VIAL SQ SCH ×7 (06:34→21:12)
[2022-03-13] MEDS: SYMBICORT 160-4.5 MCG INHALER INHALATION SCH ×2 (08:31→21:04)
[2022-03-13 08:54] LABS: HGB 12.9 g/dL (13.0-17.0); MCH 27.3 pg (27.0-32.0); MCHC 33.1 g/dL (32.0-37.0); MCV 82.5 fL (80.0-97.0); Mean Platelet Volume 10.7 fL (9.5-12.2); NRBC Per 100 WBC 0 /100 WBCS (0.0-0.0); Platelet Count 227 X 10*3/uL (140-440); RBC 4.73 X 10*6/uL (4.40-5.60); RDW 13.1 % (11.5-14.5); WBC 12.22 X 10*3/uL (4.50-10.00)
[2022-03-13 09:01] LABS: African American GFR (CKD) 25.4 (60.0-200.0); Albumin 3.2 g/dL (3.8-4.9); Albumin/Globulin Ratio 1.28 (1.60-3.17); Anion Gap 14.7 mmol/L (10.00-18.00); BUN/Creat Ratio 26.3 Ratio (12.00-20.00); Blood Urea Nitrogen 78.9 mg/dL (9.0-27.0); Calcium 8.7 mg/dL (8.7-10.3); Carbon Dioxide 23.3 mmol/L (20.0-27.5); Globulin 2.5 g/dL (1.6-3.3); Non-African American GFR(CKD) 21.9 (60.0-200.0); Potassium 3.4 mmol/L (3.5-5.5); Total Bilirubin 0.3 mg/dL (0.30-1.20); Total Protein 5.7 g/dL (6.2-8.2)
[2022-03-13] MEDS: FUROSEMIDE 40 MG TAB PO SCH (09:22)
[2022-03-13] MEDS: PANTOPRAZOLE 40 MG TABLET PO SCH (09:23)
[2022-03-13] MEDS: GABAPENTIN 300 MG CAP PO SCH ×2 (09:23→21:13)
[2022-03-13] MEDS: cloNIDine HCL 0.1 MG TAB PO SCH ×2 (09:23→21:13)
[2022-03-13] MEDS: METOPROLOL TARTRATE 50 MG TAB PO SCH ×2 (09:23→21:13)
[2022-03-13] MEDS: predniSONE 20 MG TAB PO SCH (09:23)
[2022-03-13] MEDS: APIXABAN 2.5 MG TABLET PO SCH ×2 (09:23→21:13)
[2022-03-13] MEDS: hydrALAZINE HCL 50 MG TAB PO SCH ×2 (09:23→21:13)
[2022-03-13] MEDS: CLOPIDOGREL 75 MG TAB PO SCH (09:23)
[2022-03-13] MEDS: LOSARTAN 50 MG TAB PO SCH (09:24)
[2022-03-13] MEDS: hydroCHLOROthiazide 12.5 MG CAP PO SCH (09:24)
[2022-03-13] MEDS: POTASSIUM CHLORIDE ER 10 MEQ TAB.ER.PRT PO SCH (09:24)
[2022-03-13 09:38] LABS: Basophils # (A) 0.01 X 10*3/uL (0.00-0.10); Basophils % (A) 0.1 %; Eosinophils # (A) 0 X 10*3/uL (0.04-0.35); Eosinophils % (A) 0 %; Immature Grans, Automated 0.8 %; Lymphocytes % (A) 9.8 %; Monocytes # (A) 0.76 X 10*3/uL (0.20-1.00); Monocytes % (A) 6.2 %; Neutrophils # (A) 10.15 X 10*3/uL (1.80-7.70); Neutrophils % (A) 83.1 %
--- NOTE | 2022-03-13 10:15 | P.PN ---
Subjective Progress Note Date: 03/13/22 HISTORY OF PRESENT ILLNESS: This is a 56-year-old male patient of rosita and Dr. Ga with past medical history of coronary artery disease status post 6 vessel CABG 2006 with MAE to LAD, saphenous venous graft to the PDA, saphenous venous graft to the obtuse marginal one, radial artery to the obtuse marginal branch 2 and saphenous venous graft to the obtuse marginal 3 followed by heart catheterization with PCI and stent of the saphenous venous graft to the RCA in 2015 at which time he pre sented with non-ST elevated myocardial infarction. Most recent cardiac catheterization was performed in March of 2019 which revealed severe triple- vessel coronary artery disease with a patent ramus intermediate, patent SVG to the OM, patent MAE to the LAD, and occluded saphenous vein graft to the RCA which is chronic from before. Medical therapy was advised at that time. History of hypertension hypertensive cardiovascular disease with left ventricular hypertrophy, hyperlipidemia, ischemic cardiomyopathy, paroxysmal atrial fibrillation currently on Eliquis , diabetes mellitus type 2 with diabetic polyneuropathy, hyperlipidemia, asthma, obstructive sleep apnea on CPAP, chronic low back pain, DVT in the past, patient has been following with me on a regular basis, he developed to have a significant shortness breath associated with increased coughing and pleuritic chest pain ended up coming to the emergency department at [facility] today because of increased chest pain associa raquel with increased shortness breath, he was found to be positive for RSV, and he was in atrial fibrillation with rapid ventricular response, patient was started on Solu-Medrol 40 mg IV push every 6 hours, he was also placed on DuoNeb 3 and an immunization 4 times every day as well as oxygen support, he was admitted to the hospital with cardiology and pulmonary evaluation, patient also wa antonio caldwell and he stated that he has not been taking his blood pressure medications over the last few days, because she was not feeling well. 03/10: Patient is seen today on the cardiac stepdown unit. Patient has been resumed on his home antihypertensive medications and blood pressure is well controlled. He has been seen by cardiology with plan to continue current medications and obtain echocardiogram. Patient is also been seen by pulmonary medicine and maintained on Pulmicort, DuoNeb treatments and IV Solu-Medrol. Patient continues to have a cough with clear sputum production. Breathing stat us is stable. We'll plan to decrease frequency of Solu-Medrol to every 12 hours. 03/11: Patient continues to complain of cough that is nonproductive with wheezing. Patient is been afebrile, heart rate in the 70s, blood pressure 116/77, pulse ox 95% on room air. Her blood glucose running between 236 and 358. Patient will be continued on IV Solu-Medrol and Lantus will be increased to 30 units. Patient will be transferred to [facility] floor. 03/12: Patient is seen today on the [facility] floor. Cardiology has signed off. Patient continues to have wheezing and cough that is nonproductive. He has been afebrile, heart rate in the 60s and 70s, blood pressure 118/72 and pulse ox 92% on room air. Capillary blood glucose are improved running between 125 and 247. Pulmonary medicine has transition patient to oral prednisone. He is continued on nebulizer treatments, Robitussin and Symbicort. Patient is also continued on his home medication regime. Anticipate discharge home tomorrow. 03/13: Patient is seen today on the [facility] floor. He is having increased shortness of breath with wheezing and also diarrhea. Blood work came back surprisingly with a creatinine of 3, BUN 78, hemoglobin was 12.9 and WBC 12.2. Patient will be started on IV fluids 0.9 normal saline at 100 mL per hour, will discontinue metformin, Lasix and hydrochlorothiazide. Blood pressure is been stable 114/83, heart rate in the 50s and 60s. Echocardiogram reveals EF of 60%. Possible amyloidosis, moderate concentric left ventricular hypertrophy, [id number] tricuspid regurgitation, RVSP 34.8 REVIEW OF SYSTEMS: Constitutional: No documented fever, no chills, no night sweats. No weight change. positive for weakness,positive for fatigue or lethargy. No daytime sleepiness. HEENT: No headache. No blurred vision or double vision, no loss of vision. No loss of Hearing, no ringing in the ears, no dizziness. No nasal drainage or congestion. No epistaxis. No sore throat. Lungs: positive for shortness of breath, positive for cough, denies sputum production. positive for wheezing. Reports dyspnea with activity. Cardiovascular: pleuritic chest pain, no lower extremity edema. No palpitat ions. No paroxysmal nocturnal dyspnea. No orthopnea. No lightheadedness or dizziness. No syncopal episodes. Abdominal: Reports abdominal pain. No nausea, vomiting. Reports diarrhea. No constipation. No bloody or tarry stools reports loss of appetite. Genitourinary: No dysuria, increased frequency, urgency. No urinary retention. Musculoskeletal: No myalgias. No muscle weakness, no gait dysfunction, no frequent falls. No back pain. No neck pain. Integumentary: No wounds, no lesions. No rash or pruritus. No unusual bruising. No change in hair or nails. Neurologic: No aphasia. No facial droop. No change in mentation. No head injury. No headache. No paralysis. No paresthesia. Psychiatric: No depression. No anxiety. No mood swings. Endocrine: Noted abnormal blood sugars with improvement. No weight change. PHYSICAL EXAMINATION: General: 56-year-old male laying down in bed in no respiratory distress. HEENT: Head is atraumatic, normocephalic, pupils were equal round reactive to light, conjunctivae were pale, mucous membranes of the mouth are somewhat dry. Neck: Supple, no JVP. Chest: Decreased breath sounds at the bases, few rhonchi, positive for expiratory wheezes, no chest wall tenderness, no intercostal retractions. Heart: First heart sound is normal, second heart sounds normal, irregularly irregular, there is systolic ejection murmur 2/6 located in the left sternal border. Abdomen: Soft, nontender, nondistended, positive bowel sounds. Extremities: There is no edema no calf tenderness DP +1 bilaterally. Neurologic examination: Patient is awake alert and oriented X 3. ASSESSMENT AND PLAN: 1. Acute hypoxemic respiratory failure due to acute asthma exacerbation complicated by RSV infection . Continue oxygen support, IV Solu-Medrol has been transitioned to oral prednisone, continue DuoNeb 3 mg nebulization 4 times every day, contact/droplet precautions, pulmonary consultation appreciated. 2. Atrial fibrillation with rapid ventricular response. Restart the patient back on his metoprolol 100 mg orally twice every day, continue to monitor the patient very closely, restart the patient back on Eliquis 2.5 mg orally twice every day. Cardiology consultation appreciated. 3. Accelerated hypertension. Patient has been off his blood pressure medication for the last few days. Start the patient on losartan 100/25 mg orally once every day, continue patient on metoprolol 100 mg orally twice every day, continue hydralazine 50 mg orally twice every day, continue clonidine 0.1 mg orally twice every day monitor the patient blood pressure very closely. 4. Acute kidney injury. Metformin, Lasix and hydrochlorothiazide discontinued. Start patient on IV fluid 0.9 normal saline at 100 mL/h, recheck a CMP in the morning. 5. Diabetes mellitus type 2, uncontrolled with hyperglycemia secondary to noncompliance and use of steroids. Continue Levemir to 30 units at bedtime along with a sliding scale insulin monitor the patient hemoglobin A1c, NovoLog 6 units with meals added. 6. Diarrhea. The patient started on IV fluids, continue to monitor closely. 7. Coronary artery disease status post CABG 6 as well as PCI in the past. Continue patient on Plavix 75 mg once every day, metoprolol 100 mg orally twice every day, continue patient on atorvastatin 80 mg orally once every day, continues Zetia 10 mg orally once every day. 8. Hyperlipidemia. Continue patient on atorvastatin 80 mg once every day, continue Zetia 10 mg orally once every day, monitor lipid panel, keep LDL 55-70. 9. Diabetic polyneuropathy. Continue patient on gabapentin 100 mg orally 3 times every day. 10. Obstructive sleep apnea. Patient does have a CPAP at home. 11. Chronic low back pain. Continue gabapentin 900 mg orally 3 times every day . 12. Pleuritic chest pain. Start the patient on morphine 2 mg IV push every 4 hours as needed. 13. DVT prophylaxis. Continue Eliquis 2.5 mg orally twice every day. 14. GI prophylaxis. Start the patient on Protonix 40 mg orally once every day. Patient's full code. Discharge plan: Home Impression and plan of care have been directed as dictated by the signing physician. iDpika Mendez nurse practitioner acting as scribe for signing physician. Objective - Vital Signs Vital signs: Vital Signs Temp 98.2 F 03/13/22 07:19 Pulse 56 L 03/13/22 07:19 Resp 18 03/13/22 07:19 BP 114/83 03/13/22 07:19 Pulse Ox 96 03/13/22 07:19 FiO2 21 03/10/22 19:54 Intake & Output 03/12/22 03/13/22 03/13/22 18:59 06:59 18:59 Intake Total 236 Balance 236 Intake: Oral 236 Other: # Voids 1 # Bowel Movements 2 - Labs CBC & Chem 7: 03/13/22 05:26 03/13/22 05:26 Labs: Abnormal Lab Results - Last 24 Hours (Table) 03/12/22 03/12/22 03/12/22 Range/Units 11:56 16:45 20:08 POC Glucose (mg/dL) 182 H 134 H 122 H (70-110) mg/dL 03/13/22 Range/Units 06:02 POC Glucose (mg/dL) 113 H (70-110) mg/dL
[2022-03-13 11:36] LABS: Glucose,Whole Blood 249 mg/dL (70-110)
[2022-03-13] MEDS: SODIUM CHLORIDE 0.9% 1,000 ML IV SCH ×2 (12:17→21:14)
--- NOTE | 2022-03-13 14:54 | P.PN ---
Subjective Progress Note Date: 03/13/22 Principal diagnosis: RSV Pulmonary consult dated 03/10/2022. 56-year-old male who presented to the emergency department on March 09 complaining of cough, chest congestion, and shortness of breath. The patient comes in with a two to four-day history of increasing shortness of breath, cough, chest congestion, and minimal phlegm production. He denied any fever or chills. He denies any chest pain or chest discomfort. The patient was evaluated in the emergency department, and admitted to the hospital. His chest x-ray was normal. He did test positive for respiratory syncytial virus. The patient denies a history of any significant lung disease. The patient is a lifelong nonsmoker. Currently, he's on room air. He's not receiving any IV fluids. White count 8.6, hemoglobin 13.1, hematocrit 38.1, and platelet count 237,000. Sodium 137, potassium 3.2, chlorides 98, CO2 29, BUN 15, creatinine 0.94. He did test positive for RSV. He tested negative for influenza, and coronavirus infection. Chest x-ray was reported as being normal. Progress note dated 03/11/2022. 56-year-old male seen yesterday in consultation. Please see the note above. The patient came in with cough, shortness of breath, and chest congestion. He was found to be positive for RSV. Currently, the patient is on room air. He's not receiving any IV fluids. As mentioned yesterday, I thought the patient could be discharged home on some prednisone. Clinically he is doing much better. No new labs today. Progress note dated 03/12/2022. 56-year-old male seen in consultation 2 days ago. He was admitted with a diagnosis of RSV infection, with reactive bronchospasm and bronchial infl ammation. The patient's currently on room air. The patient is not receiving any IV fluids. In our opinion, the patient could be discharged home. The patient's clinically very stable. No new lab data today. Glucose was 247. I'm reevaluating this patient today 03/13/2022 follow-up on the general medical floor. Patient is sitting up in bed, on room air, in no acute distress. His respiratory status seems back to baseline other than a intermittent nonproductive cough. No new chest x-ray to review today. Patient's CBC from today shows mild leukocytosis with a WBC of 12.2, hemoglobin 12.9, hematocrit 39, platelets 227,000. Patient's BMP shows some acute kidney injury with a creatinine of 3, BUN 78.9. Rest of the BMP shows a sodium 138, potassium 3.4, chloride 100, serum CO2 23.3, glucose 114. Patient is receiving normal saline at 100 mL per hour. From a pulmonary standpoint patient is receiving DuoNeb inhalation, Symbicort inhaler, and oral prednisone taper. Patient's pulmonary status seems stable. Vital signs are stable. Objective - Vital Signs Vital signs: Vital Signs Temp 98.1 F 03/13/22 14:00 Pulse 64 03/13/22 14:00 Resp 17 03/13/22 14:00 BP 116/62 03/13/22 14:00 Pulse Ox 93 L 03/13/22 14:00 FiO2 21 03/10/22 19:54 Intake & Output 03/12/22 03/13/22 03/13/22 18:59 06:59 18:59 Intake Total 236 Balance 236 Intake: Oral 236 Other: # Voids 1 # Bowel Movements 2 - Exam An alert 56-year-old white male, in no acute distress, oriented 3. HEENT examination is grossly unremarkable. Neck supple. Full range of motion. No adenopathy thyromegaly or neck vein distention. Cardiovascular examination reveals regular rhythm rate. S1-S2 normal. No S3 or S4. No discernible murmur noted. Heart sounds are distant. Heart rate 61 bpm. Lungs reveal scattered bilateral expiratory rhonchi and wheezes. No crackles appreciated. Breath sounds equal. Room air saturation 94 %. No conversational dyspnea or accessory muscle use. Abdomen soft bowel sounds are heard. No masses or tenderness. Extremities are intact. No cyanosis or edema. Fingertip clubbing is noted. Skin is without rash or lesion. Neurologic examination is brief but nonfocal. - Labs CBC & Chem 7: 03/13/22 05:26 03/13/22 05:26 Labs: Abnormal Lab Results - Last 24 Hours (Table) 03/12/22 03/12/22 03/13/22 Range/Units 16:45 20:08 05:26 WBC 12.22 H (4.50-10.00) X 10*3/uL Hgb 12.9 L (13.0-17.0) g/dL Hct 39.0 L (39.6-50.0) % Immature Gran # 0.10 H (0.00-0.04) X 10*3/uL Neutrophils # 10.15 H (1.80-7.70) X 10*3/uL Eosinophils # 0 L (0.04-0.35) X 10*3/uL Potassium (3.5-5.5) mmol/L BUN (9.0-27.0) mg/dL Creatinine (0.6-1.5) mg/dL Est GFR (CKD-EPI)AfAm (60.0-200.0) Est GFR (CKD-EPI)NonAf (60.0-200.0) BUN/Creatinine Ratio (12.00-20.00) Ratio Glucose (70-110) mg/dL POC Glucose (mg/dL) 134 H 122 H (70-110) mg/dL AST (14-35) U/L Total Protein (6.2-8.2) g/dL Albumin (3.8-4.9) g/dL Albumin/Globulin Ratio (1.60-3.17) g/dL 03/13/22 03/13/22 03/13/22 Range/Units 05:26 06:02 11:28 WBC (4.50-10.00) X 10*3/uL Hgb (13.0-17.0) g/dL Hct (39.6-50.0) % Immature Gran # (0.00-0.04) X 10*3/uL Neutrophils # (1.80-7.70) X 10*3/uL Eosinophils # (0.04-0.35) X 10*3/uL Potassium 3.4 L (3.5-5.5) mmol/L BUN 78.9 H (9.0-27.0) mg/dL Creatinine 3.0 H (0.6-1.5) mg/dL Est GFR (CKD-EPI)AfAm 25.4 L (60.0-200.0) Est GFR (CKD-EPI)NonAf 21.9 L (60.0-200.0) BUN/Creatinine Ratio 26.30 H (12.00-20.00) Ratio Glucose 114 H (70-110) mg/dL POC Glucose (mg/dL) 113 H 249 H (70-110) mg/dL AST 12 L (14-35) U/L Total Protein 5.7 L (6.2-8.2) g/dL Albumin 3.2 L (3.8-4.9) g/dL Albumin/Globulin Ratio 1.28 L (1.60-3.17) g/dL Assessment and Plan Assessment: Acute bronchitis with bronchospasm and bronchial inflammation, secondary to RSV infection. Remote history of mild asthma. Acute kidney injury. Creatinine is up to 3. Patient is receiving gentle hydration History of CAD, with previous bypass grafting, 6 vessel. Previous cardiac catheterizations with stent placement. History of hypertension. History of hyperlipidemia. Diabetes mellitus. History of deep venous thrombosis. History of myocardial infarction. History of obstructive sleep apnea syndrome, maintained on CPAP. History of cellulitis. Diabetic neuropathy. History of spinal fusion. Left forearm compartment syndrome, with previous fasciotomy Plan: Patient's medications and labs reviewed Continue bronchodilators and Symbicort inhaler Continue to taper down patient's prednisone On room air From a pulmonary perspective patient is cleared for discharge I have personally seen and examined the patient, performed the documentation and the assessment and plan as written. Number of minutes spent on the visit: 10. Time with Patient: Less than 30
--- NOTE | 2022-03-13 15:51 | US ---
EXAMINATION TYPE: US kidneys/renal and bladder DATE OF EXAM: 03/13/2022 COMPARISON: CT 10/30/2021 CLINICAL HISTORY: ARF. ARF per order. EXAM MEASUREMENTS: Right Kidney: 12.0 x 5.6 x 5.2 cm Left Kidney: 11.2 x 6.0 x 6.3 cm Right Kidney: Measures upper limits. No hydronephrosis or masses seen Left Kidney: Anechoic area seen at the upper pole: 1.2 x 1.2 x 0.9 cm. Bladder: Appears anechoic. Bilateral Jets seen: Yes No hydronephrosis, nephrolithiasis, or solid contour deforming mass. Corticomedullary differentiation is maintained. Simple cyst within the upper pole the left kidney measuring up to 1.2 cm. Urinary ras dder is unremarkable with bilateral ureter jets demonstrated. IMPRESSION: 1. No hydronephrosis or nephrolithiasis. 2. Small left renal cyst.
[2022-03-13 16:39] LABS: Glucose,Whole Blood 287 mg/dL (70-110)
--- NOTE | 2022-03-13 16:55 | CT ---
EXAMINATION TYPE: CT chest wo con DATE OF EXAM: 03/13/2022 COMPARISON: 05/22/2019 HISTORY: cough and wheezing.pt has RSV CT DLP: 373.2 mGycm Automated exposure control for dose reduction was used. Images obtained from the thoracic inlet to the diaphragm with no contrast. Lung bases show mild interstitial density in subsegmental atelectasis right lung base. No pleural eff usion. Heart is enlarged. There are sternal wires. No pericardial effusion. Liver spleen and stomach pancreas and gallbladder appear intact. Bile ducts are nondilated. The stoma ch is large. There is no adrenal mass. Replaced kidneys are intact. There are no hilar masses. There is dense coronary artery calcification. There are a few paratracheal lymph nodes that measure up to 1.5 cm. The thoracic spine is intact. No compression fracture. Sternu m is intact. IMPRESSION: Cardiomegaly. Atherosclerotic vascular disease. Nonspecific mediastinal lymph nodes. Lymph nodes slig htly increased compared to old exam. There is clearing of the right pleural effusion compared to old exam minimal subsegmental atelectasis right lung base. No suspicious pulmonary mass.
[2022-03-13 20:47] LABS: Glucose,Whole Blood 290 mg/dL (70-110)
[2022-03-13] MEDS: IPRATROPIUM-ALBUTEROL 3 ML NEB INHALATION PRN (21:04)
[2022-03-13] MEDS: INSULIN DETEMIR (LEVEMIR) 100 UNIT/ML SYR SQ SCH (21:12)
[2022-03-13] MEDS: ATORVASTATIN 80 MG TAB PO SCH (21:13)
[2022-03-13] MEDS: EZETIMIBE 10 MG TAB PO SCH (21:13)
[2022-03-14 06:08] LABS: Glucose,Whole Blood 205 mg/dL (70-110)
[2022-03-14] MEDS: INSULIN ASPART (NovoLOG) 100 UNIT/ML VIAL SQ SCH ×7 (06:33→20:46)
[2022-03-14] MEDS: MORPHINE SULFATE 2 MG/ML SYRINGE IVP PRN ×3 (06:33→20:43)
[2022-03-14] MEDS: PANTOPRAZOLE 40 MG TABLET PO SCH (06:33)
[2022-03-14] MEDS: SODIUM CHLORIDE 0.9% 1,000 ML IV SCH ×2 (06:34→16:50)
[2022-03-14] MEDS: SYMBICORT 160-4.5 MCG INHALER INHALATION SCH ×2 (08:07→20:25)
[2022-03-14] MEDS: IPRATROPIUM-ALBUTEROL 3 ML NEB INHALATION PRN ×3 (08:07→20:27)
[2022-03-14] MEDS: hydrALAZINE HCL 50 MG TAB PO SCH ×2 (09:09→20:45)
[2022-03-14] MEDS: cloNIDine HCL 0.1 MG TAB PO SCH ×2 (09:09→20:45)
[2022-03-14] MEDS: GABAPENTIN 300 MG CAP PO SCH ×2 (09:09→20:45)
[2022-03-14] MEDS: METOPROLOL TARTRATE 50 MG TAB PO SCH ×2 (09:09→20:46)
[2022-03-14] MEDS: CLOPIDOGREL 75 MG TAB PO SCH (09:10)
[2022-03-14] MEDS: POTASSIUM CHLORIDE ER 10 MEQ TAB.ER.PRT PO SCH (09:10)
[2022-03-14] MEDS: APIXABAN 2.5 MG TABLET PO SCH ×2 (09:10→20:46)
[2022-03-14] MEDS: predniSONE 10 MG TAB PO SCH (09:10)
[2022-03-14] MEDS: LOSARTAN 50 MG TAB PO SCH (09:10)
[2022-03-14 09:17] LABS: Basophils # (A) 0.02 X 10*3/uL (0.00-0.10); Basophils % (A) 0.2 %; Eosinophils # (A) 0.06 X 10*3/uL (0.04-0.35); Eosinophils % (A) 0.5 %; HCT 40.7 % (39.6-50.0); HGB 13.3 g/dL (13.0-17.0); Immature Grans, Automated 0.7 %; Lymphocytes % (A) 9.1 %; MCH 27.8 pg (27.0-32.0); MCHC 32.7 g/dL (32.0-37.0); Mean Platelet Volume 10.9 fL (9.5-12.2); Monocytes # (A) 0.91 X 10*3/uL (0.20-1.00); Monocytes % (A) 8.3 %; NRBC Per 100 WBC 0 /100 WBCS (0.0-0.0); Neutrophils # (A) 8.94 X 10*3/uL (1.80-7.70); Neutrophils % (A) 81.2 %; Platelet Count 226 X 10*3/uL (140-440); RBC 4.79 X 10*6/uL (4.40-5.60); RDW 13.1 % (11.5-14.5); WBC 11.01 X 10*3/uL (4.50-10.00)
[2022-03-14 10:16] LABS: African American GFR (CKD) 33.2 (60.0-200.0); Albumin 3.2 g/dL (3.8-4.9); Albumin/Globulin Ratio 1.23 (1.60-3.17); Anion Gap 12.5 mmol/L (10.00-18.00); BUN/Creat Ratio 27.92 Ratio (12.00-20.00); Calcium 8.6 mg/dL (8.7-10.3); Carbon Dioxide 22.5 mmol/L (20.0-27.5); Globulin 2.6 g/dL (1.6-3.3); Non-African American GFR(CKD) 28.7 (60.0-200.0); Potassium 3.6 mmol/L (3.5-5.5); Total Bilirubin 0.2 mg/dL (0.30-1.20); Total Protein 5.8 g/dL (6.2-8.2)
--- NOTE | 2022-03-14 10:59 | P.NPCON ---
History of Present Illness - Reason for Consult acute renal failure - History of Present Illness Patient is a 56-year-old male with history of coronary artery disease, A. fib, COPD, diabetes, hypertension admitted to the hospital with complaints of shortness of breath. Patient had cough as well. He tested positive for RSV. Serum creatinine had increased from 0.9 to 3 mg/dL yesterday. Patient was being diuresed. Lasix has been held and patient was started on IV fluids. He was also on losartan. Blood pressure has not been low. Ultrasound does not show any evidence of hydronephrosis. Patient states he has been voiding. Review of Systems As per HPI Past Medical History Past Medical History: Asthma, Coronary Artery Disease (CAD), Chest Pain / Angina, Diabetes Mellitus, Deep Vein Thrombosis (DVT), Hyperlipidemia, Hypertension, Myocardial Infarction (DE), Sleep Apnea/CPAP/BIPAP Additional Past Medical History / Comment(s): Obstructive sleep apnea CPAP, bronchitis, IDDM type II, DVT L leg, cellulitis L leg 2012 cellulitis L Arm 2017, diabetic neuropathy affects feet and hands, chronic kidney disease stage II Last Myocardial Infarction Date:: 06/23/13 History of Any Multi-Drug Resistant Organisms: Acinetobacter (MDRO), MRSA Date of last positivie culture/infection: 08/2014 MDRO Source:: abdomen around navel Past Surgical History: Back Surgery, Coronary Bypass/CABG, Heart Catheterization, Heart Catheterization With Stent, Hernia Repair Additional Past Surgical History / Comment(s): Cardiac caths, PCI with stents (4total), 2006 CABG 6 vessels, spinal fusion L4-L5, fasciotomy left thigh, bilateral inguinal hernia repairs, I&D L forearm with dehisence then compartment syndrome with fasciotomy Left forearm - June 2016 Past Anesthesia/Blood Transfusion Reactions: No Reported Reaction Date of Last Stent Placement:: 08/28/15 Past Psychological History: No Psychological Hx Reported Smoking Status: Never smoker Past Alcohol Use History: None Reported Past Drug Use History: None Reported - Past Family History Brother(s) Additional Family Medical History / Comment(s): Patient has 1 brother and 1 sister with no major medical problems. Mother Family Medical History: Congestive Heart Failure (CHF), Diabetes Mellitus Additional Family Medical History / Comment(s): Mother at the age of 84 from with history of chronic renal disease stage. Father Family Medical History: COPD, Coronary Artery Disease (CAD), Myocardial Infarction (DE) Additional Family Medical History / Comment(s): Father of a DE at the age of 60 yrs with history of COPD. Sister(s) Family Medical History: Rheumatoid Arthritis (RA) Additional Family Medical History / Comment(s): Patient has 1 sister with no major medical problems. Medications and Allergies Home Medications Medication Instructions Recorded Confirmed Type Atorvastatin [Lipitor] 80 mg PO HS #30 tab 04/14/19 03/09/22 Rx Metoprolol Tartrate [Lopressor] 100 mg PO BID #60 tab 04/14/19 03/09/22 Rx Potassium Chloride ER [K-Dur 10] 10 meq PO DAILY #30 tab 04/14/19 03/09/22 Rx Furosemide [Lasix] 40 mg PO DAILY 11/09/19 03/09/22 History Losartan/Hydrochlorothiazide 1 tab PO DAILY 11/09/19 03/09/22 History [Hyzaar 100-12.5 Tablet] cloNIDine HCL [Catapres] 0.1 mg PO BID 11/09/19 03/09/22 History hydrALAZINE HCL [Apresoline] 50 mg PO BID 11/09/19 03/09/22 History metFORMIN HCL [Glucophage] 1,000 mg PO BID 11/09/19 03/09/22 History Clopidogrel [Plavix] 75 mg PO DAILY tab 11/20/19 03/09/22 Rx Ezetimibe [Zetia] 10 mg PO HS 12/15/20 03/09/22 History Apixaban [Eliquis] 5 mg PO Q2D 03/09/22 03/11/22 History Gabapentin 900 mg PO BID 03/09/22 03/09/22 History Insulin Glargine,Hum.rec.anlog 23 unit SQ HS 03/11/22 03/11/22 History [Basaglar Kwikpen U-100] Insulin Lispro [humaLOG Kwikpen] 7 unit SQ AC-TID 03/11/22 03/11/22 History Insulin Lispro [humaLOG Kwikpen] See Protocol SQ AC-TID 03/11/22 03/11/22 History Allergies Allergy/AdvReac Type Severity Reaction Status Date / Time adhesive tape Allergy Severe Rash/Hives Verified 03/09/22 16:47 vancomycin Allergy Mild Head Itches Verified 03/09/22 16:47 Physical Exam Vitals: Vital Signs Temp Pulse Pulse Resp BP Pulse Ox 03/14/22 09:23 61 16 03/14/22 08:17 62 03/14/22 08:09 64 03/14/22 07:00 97.9 F 61 16 174/87 92 L 03/14/22 01:53 97.6 F 67 15 153/87 98 03/13/22 21:25 64 03/13/22 21:04 64 97 03/13/22 20:02 98.0 F 67 15 154/81 96 03/13/22 14:00 98.1 F 64 17 116/62 93 L Intake and Output 03/13/22 03/14/22 03/14/22 22:59 06:59 14:59 Output Total 0 Balance 0 Output: Urine 0 Other: # Voids 4 Patient is awake, comfortable, no acute distress Examination of the heart S1 and S2 Examination of the lungs bilateral breath sounds are heard Abdomen is soft nontender Examination of lower extremities shows no significant edema 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 Acute kidney injury mostly prerenal associated with recent diuresis. Patient received a dose of Toradol in the ER. He was also maintained on angiotensin receptor blockers. Patient denies any urinary symptoms. Ultrasound does not show any evidence of obstruction. Currently maintained on IV fluids with improvement in renal function and diuretics are on hold. 2. RSV pneumonia/bronchitis 3. Coronary artery disease with history of coronary artery bypass surgery 4. Hypokalemia status post replacement. Etiology is diuresis 5. Hypertension, uncontrolled secondary to steroids. Hold losartan for 1-2 days and increase hydralazine. Plan: Agree with normal saline Can DC saline in a.m. Check bladder scan Hold losartan for one day and can restart at lower dose tomorrow Increase hydralazine for blood pressure control in the meantime. Thank you for the consultation. We will continue to follow the patient with you during his hospitalization
[2022-03-14 11:28] LABS: Glucose,Whole Blood 121 mg/dL (70-110)
--- NOTE | 2022-03-14 13:05 | P.PN ---
Subjective Progress Note Date: 03/14/22 Principal diagnosis: Shortness of breath/cough. Pulmonary consult dated 03/10/2022. 56-year-old male who presented to the emergency department on March 09 complaining of cough, chest congestion, and shortness of breath. The patient comes in with a two to four-day history of increasing shortness of breath, cough, chest congestion, and minimal phlegm production. He denied any fever or chills. He denies any chest pain or chest discomfort. The patient was evaluated in the emergency department, and admitted to the hospital. His chest x-ray was normal. He did test positive for respiratory syncytial virus. The patient denies a history of any significant lung disease. The patient is a lifelong nonsmoker. Currently, he's on room air. He's not receiving any IV fluids. White count 8.6, hemoglobin 13.1, hematocrit 38.1, and platelet count 237,000. Sodium 137, potassium 3.2, chlorides 98, CO2 29, BUN 15, creatinine 0.94. He did test positive for RSV. He tested negative for influenza, and coronavirus infection. Chest x-ray was reported as being normal. Progress note dated 03/11/2022. 56-year-old male seen yesterday in consultation. Please see the note above. The patient came in with cough, shortness of breath, and chest congestion. He was found to be positive for RSV. Currently, the patient is on room air. He's not receiving any IV fluids. As mentioned yesterday, I thought the patient could be discharged home on some prednisone. Clinically he is doing much better. No new labs today. Progress note dated 03/12/2022. 56-year-old male seen in consultation 2 days ago. He was admitted with a diagnosis of RSV infection, with reactive bronchospasm and bronchial inflammation. The patient's currently on room air. The patient is not receivin g any IV fluids. In our opinion, the patient could be discharged home. The patient's clinically very stable. No new lab data today. Glucose was 247. Progress note dated 03/14/2022. 56-year-old male again seen in room 477. He's on room air. The patient is receiving saline at 100 mL an hour. From the pulmonary standpoint, although the patient is still a bit short of breath and wheezing, we thought the patient could be discharged home. Labs today include a white count of 11, hemoglobin 13 .3, hematocrit 40.7, and a normal platelet count. Sodium 138, potassium 3.6, chlorides 103, CO2 23, BUN 67, and creatinine 2.4. Calcium 8.6. CT is reviewed, and other than some cardiomegaly, and ASHD, the CT is essentially unremarkable. Objective - Vital Signs Vital signs: Vital Signs Temp 97.9 F 03/14/22 07:00 Pulse 62 03/14/22 11:48 Resp 16 03/14/22 09:23 BP 174/87 03/14/22 07:00 Pulse Ox 92 L 03/14/22 07:00 FiO2 03/10/22 19:54 Intake & Output 03/13/22 03/14/22 03/14/22 18:59 06:59 18:59 Output Total 0 Balance 0 Output: Urine 0 Other: # Voids 4 - Exam No acute distress, oriented 3. No respiratory distress, audible wheezing, use of accessory muscles, or conversational dyspnea. HEENT examination is grossly unremarkable. Neck supple. Full range of motion. No adenopathy thyromegaly or neck vein distention. Cardiovascular examination reveals regular rhythm rate. S1-S2 normal. No S3 or S4. No discernible murmur noted. Heart sounds are distant. Heart rate 62 bpm. Lungs reveal bilateral expiratory wheezes. Breath sounds equal. No rhonchi. No crackles. Breath sounds are equal bilaterally. Room air saturations are 98%. Abdomen soft bowel sounds are heard. No masses or tenderness. Extremities are intact. No cyanosis or edema. Fingertip clubbing is noted. Skin is without rash or lesion. Neurologic examination is brief but nonfocal. - Labs CBC & Chem 7: 03/14/22 05:44 03/14/22 05:41 Labs: Abnormal Lab Results - Last 24 Hours (Table) 03/13/22 03/13/22 03/14/22 Range/Units 16:37 20:46 05:41 WBC (4.50-10.00) X 10*3/uL Immature Gran # (0.00-0.04) X 10*3/uL Neutrophils # (1.80-7.70) X 10*3/uL BUN 67.0 H (9.0-27.0) mg/dL Creatinine 2.4 H (0.6-1.5) mg/dL Est GFR (CKD-EPI)AfAm 33.2 L (60.0-200.0) Est GFR (CKD-EPI)NonAf 28.7 L (60.0-200.0) BUN/Creatinine Ratio 27.92 H (12.00-20.00) Ratio Glucose 211 H (70-110) mg/dL POC Glucose (mg/dL) 287 H 290 H (70-110) mg/dL Calcium 8.6 L (8.7-10.3) mg/dL Total Bilirubin 0.20 L (0.30-1.20) mg/dL AST 11 L (14-35) U/L Total Protein 5.8 L (6.2-8.2) g/dL Albumin 3.2 L (3.8-4.9) g/dL Albumin/Globulin Ratio 1.23 L (1.60-3.17) g/dL 03/14/22 03/14/22 03/14/22 Range/Units 05:44 06:07 11:26 WBC 11.01 H (4.50-10.00) X 10*3/uL Immature Gran # 0.08 H (0.00-0.04) X 10*3/uL Neutrophils # 8.94 H (1.80-7.70) X 10*3/uL BUN (9.0-27.0) mg/dL Creatinine (0.6-1.5) mg/dL Est GFR (CKD-EPI)AfAm (60.0-200.0) Est GFR (CKD-EPI)NonAf (60.0-200.0) BUN/Creatinine Ratio (12.00-20.00) Ratio Glucose (70-110) mg/dL POC Glucose (mg/dL) 205 H 121 H (70-110) mg/dL Calcium (8.7-10.3) mg/dL Total Bilirubin (0.30-1.20) mg/dL AST (14-35) U/L Total Protein (6.2-8.2) g/dL Albumin (3.8-4.9) g/dL Albumin/Globulin Ratio (1.60-3.17) g/dL Assessment and Plan Assessment: Acute bronchitis with bronchospasm and bronchial inflammation, secondary to RSV infection, much improved. Remote history of mild asthma. History of CAD, with previous bypass grafting, 6 vessel. Previous cardiac catheterizations with stent placement. History of hypertension. History of hyperlipidemia. Diabetes mellitus. History of deep venous thrombosis. History of myocardial infarction. History of obstructive sleep apnea syndrome, maintained on CPAP. History of cellulitis. Diabetic neuropathy. History of spinal fusion. Left forearm compartment syndrome, with previous fasciotomy. Plan: Plan dated 03/10/2022. Labs, x-rays, and medications are reviewed. The patient appears quite comfortable. Room air saturation 98%. The patient did test positive for respiratory syncytial virus, and he does have bronchospasm, and bronchial inflammation. The patient was placed on Symbicort. The patient continues on updrafts, and is also on Solu-Medrol, 40 mg IV push every 6 hours. We will continue to follow. In my opinion, the patient could be considered for early discharge, chest x-ray is normal. He is not requiring any supplemental oxygen. He could be discharged home on Symbicort, prednisone and a rescue inhaler. Plan dated 03/11/2022. The patient's doing very well. The patient informed me that he will not be discharged today but rather tomorrow according to his hospital doctor. The patient is stable, could be considered for discharge. Labs, x-rays, medications are reviewed. The patient's on appropriate medications. Prognosis is thought to be generally good. No additional recommendations are made. Plan dated 03/12/2022. The patient's doing very well. The patient and our opinion could be discharged. She is on appropriate medications. Solu-Medrol has been converted to prednisone. Labs, x-rays, and medications are reviewed. Prognosis is thought to be generally good. No additional recommendations are made at this time. Plan dated 03/14/2022. The patient's renal function appears to be improved. The patient still a bit short of breath and still having some expiratory wheezes. The patient's on room air. He appears relatively comfortable. Labs, x-rays, and medications are all reviewed. Prognosis is thought to be generally good. We will continue to follow make recommendations along the way. Time with Patient: Less than 30
[2022-03-14 13:20] VITALS: BMI 25.8
[2022-03-14 16:31] LABS: Glucose,Whole Blood 128 mg/dL (70-110)
--- NOTE | 2022-03-14 18:56 | P.PN ---
Subjective Progress Note Date: 03/14/22 HISTORY OF PRESENT ILLNESS: This is a 56-year-old male patient of rosita and Dr. Ga with past medical history of coronary artery disease status post 6 vessel CABG 2006 with MAE to LAD, saphenous venous graft to the PDA, saphenous venous graft to the obtuse marginal one, radial artery to the obtuse marginal branch 2 and saphenous venous graft to the obtuse marginal 3 followed by heart catheterization with PCI and stent of the saphenous venous graft to the RCA in 2015 at which time he pre sented with non-ST elevated myocardial infarction. Most recent cardiac catheterization was performed in March of 2019 which revealed severe triple- vessel coronary artery disease with a patent ramus intermediate, patent SVG to the OM, patent MAE to the LAD, and occluded saphenous vein graft to the RCA which is chronic from before. Medical therapy was advised at that time. History of hypertension hypertensive cardiovascular disease with left ventricular hypertrophy, hyperlipidemia, ischemic cardiomyopathy, paroxysmal atrial fibrillation currently on Eliquis , diabetes mellitus type 2 with diabetic polyneuropathy, hyperlipidemia, asthma, obstructive sleep apnea on CPAP, chronic low back pain, DVT in the past, patient has been following with me on a regular basis, he developed to have a significant shortness breath associated with increased coughing and pleuritic chest pain ended up coming to the emergency department at [facility] today because of increased chest pain associa raquel with increased shortness breath, he was found to be positive for RSV, and he was in atrial fibrillation with rapid ventricular response, patient was started on Solu-Medrol 40 mg IV push every 6 hours, he was also placed on DuoNeb 3 and an immunization 4 times every day as well as oxygen support, he was admitted to the hospital with cardiology and pulmonary evaluation, patient also wa antonio caldwell and he stated that he has not been taking his blood pressure medications over the last few days, because she was not feeling well. 03/10: Patient is seen today on the cardiac stepdown unit. Patient has been resumed on his home antihypertensive medications and blood pressure is well controlled. He has been seen by cardiology with plan to continue current medications and obtain echocardiogram. Patient is also been seen by pulmonary medicine and maintained on Pulmicort, DuoNeb treatments and IV Solu-Medrol. Patient continues to have a cough with clear sputum production. Breathing stat us is stable. We'll plan to decrease frequency of Solu-Medrol to every 12 hours. 03/11: Patient continues to complain of cough that is nonproductive with wheezing. Patient is been afebrile, heart rate in the 70s, blood pressure 116/77, pulse ox 95% on room air. Her blood glucose running between 236 and 358. Patient will be continued on IV Solu-Medrol and Lantus will be increased to 30 units. Patient will be transferred to [facility] floor. 03/12: Patient is seen today on the [facility] floor. Cardiology has signed off. Patient continues to have wheezing and cough that is nonproductive. He has been afebrile, heart rate in the 60s and 70s, blood pressure 118/72 and pulse ox 92% on room air. Capillary blood glucose are improved running between 125 and 247. Pulmonary medicine has transition patient to oral prednisone. He is continued on nebulizer treatments, Robitussin and Symbicort. Patient is also continued on his home medication regime. Anticipate discharge home tomorrow. 03/13: [facility] He is having increased shortness of breath with wheezing and also diarrhea. Blood work came back surprisingly with a creatinine of 3, BUN 78, hemoglobin was 12.9 and WBC 12.2. Patient will be started on IV fluids 0.9 normal saline at 100 mL per hour, will discontinue metformin, Lasix and hydrochlorothiazide. Blood pressure is been stable 114/83, heart rate in the 50s and 60s. Echocardiogram reveals EF of 60%. Possible amyloidosis, moderate concentric left ventricular hypertrophy, [id number] tricuspid regurgitation, RVSP 34.8 03/14/2022 Patient is currently lying in the bed. Awake alert and oriented x3. Still complains of shortness of breath and wheezing and exertional dyspnea. Patient also states that he has decreased urine output and is being continued on normal saline 100 cc/h. Renal function improved to 2.4 creatinine level. baseline creatinine level 0.9 Nephrology and pulmonary is on board. CT chest done yesterday showed cardiomegaly. Atherosclerotic vascular disease. Nonspecific mediastinal lymph nodes. Lymph nodes slightly increased as compared to oral exam. There is clearing of the right pleural effusion compatible exam minimal subsegmental atelectasis right lung base. No suspicious pulmonary mass. Currently on prednisone 30 mg daily and duo nebs and Symbicort. Laboratory data showed WBC 11.0 hemoglobin 13.3 and platelets 226 Sodium 138 potassium 3.6 chloride 103 bicarb is 22.5 BUN 67 creatinine 2.4 and blood sugar is 211 and total bilirubin level is 0.2 and alk phos 80 albumin 3.2. REVIEW OF SYSTEMS: Constitutional: No documented fever, no chills, no night sweats. No weight change. positive for weakness,positive for fatigue or lethargy. No daytime sleepiness. HEENT: No headache. No blurred vision or double vision, no loss of vision. No loss of Hearing, no ringing in the ears, no dizziness. No nasal drainage or congestion. No epistaxis. No sore throat. Lungs: positive for shortness of breath, positive for cough, denies sputum production. positive for wheezing. Reports dyspnea with activity. Cardiovascular: pleuritic chest pain, no lower extremity edema. No palpitations . No paroxysmal nocturnal dyspnea. No orthopnea. No lightheadedness or dizziness. No syncopal episodes. Abdominal: Reports abdominal pain. No nausea, vomiting. Reports diarrhea. No constipation. No bloody or tarry stools reports loss of appetite. Genitourinary: No dysuria, increased frequency, urgency. No urinary retention. Musculoskeletal: No myalgias. No muscle weakness, no gait dysfunction, no frequent falls. No back pain. No neck pain. Integumentary: No wounds, no lesions. No rash or pruritus. No unusual bruising. No change in hair or nails. Neurologic: No aphasia. No facial droop. No change in mentation. No head injury. No headache. No paralysis. No paresthesia. Psychiatric: No depression. No anxiety. No mood swings. Endocrine: Noted abnormal blood sugars with improvement. No weight change. PHYSICAL EXAMINATION: General: 56-year-old male laying down in bed in no respiratory distress. HEENT: Head is atraumatic, normocephalic, pupils were equal round reactive to light, conjunctivae were pale, mucous membranes of the mouth are somewhat dry. Neck: Supple, no JVP. Chest: Patient does have expiratory wheezing and scattered rhonchi., no chest wall tenderness, no intercostal retractions. Heart: First heart sound is normal, second heart sounds normal, irregularly irregular, there is systolic ejection murmur 2/6 located in the left sternal border. Abdomen: Soft, nontender, nondistended, positive bowel sounds. Extremities: There is no edema no calf tenderness DP +1 bilaterally. Neurologic examination: Patient is awake alert and oriented X 3. ASSESSMENT AND PLAN: 1. Acute hypoxemic respiratory failure due to acute asthma exacerbation complicated by RSV infection . Patient is transitioned to room air. IV Solu- Medrol has been transitioned to oral prednisone, continue DuoNeb 3 mg nebulization 4 times every day, contact/droplet precautions, pulmonary is on board. 2. Atrial fibrillation with rapid ventricular response. Restarted the patient back on his metoprolol 100 mg orally twice every day, continue to monitor the patient very closely, restart the patient back on Eliquis 2.5 mg orally twice every day. Cardiology consultation appreciated. 3. Accelerated hypertension. Patient has been off his blood pressure medication for the last few days. Start the patient on losartan 100/25 mg orally once every day, continue patient on metoprolol 100 mg orally twice every day, continue hydralazine 50 mg orally twice every day, continue clonidine 0.1 mg orally twice every day monitor the patient blood pressure very closely. 4. Acute kidney injury Likely due to vasomotor nephropathy/prerenal. Metformin, Lasix and hydrochlorothiazide discontinued. Start patient on IV fluid 0.9 normal saline at 100 mL/h, recheck a CMP in the morning.Creatinine improved to 2.4 today. Baseline 0.9. 5. Diabetes mellitus type 2, uncontrolled with hyperglycemia secondary to noncompliance and use of steroids. Continue Levemir to 30 units at bedtime along with a sliding scale insulin monitor the patient hemoglobin A1c, NovoLog 6 units with meals added. 6. Diarrhea. The patient started on IV fluids, continue to monitor closely. 7. Coronary artery disease status post CABG 6 as well as PCI in the past. Continue patient on Plavix 75 mg once every day, metoprolol 100 mg orally twice every day, continue patient on atorvastatin 80 mg orally once every day, continues Zetia 10 mg orally once every day. 8. Hyperlipidemia. Continue patient on atorvastatin 80 mg once every day, continue Zetia 10 mg orally once every day, monitor lipid panel, keep LDL 55-70. 9. Diabetic polyneuropathy. Continue patient on gabapentin 100 mg orally 3 times every day. 10. Obstructive sleep apnea. Patient does have a CPAP at home. 11. Chronic low back pain. Continue gabapentin 900 mg orally 3 times every day. 12. Pleuritic chest pain. Start the patient on morphine 2 mg IV push every 4 hours as needed. 13. DVT prophylaxis. Continue Eliquis 2.5 mg orally twice every day. 14. GI prophylaxis. Start the patient on Protonix 40 mg orally once every day. Patient's full code. Discharge plan: Home Objective - Vital Signs Vital signs: Vital Signs Temp 97.5 F L 03/14/22 12:45 Pulse 65 03/14/22 12:45 Resp 19 03/14/22 12:45 BP 150/82 03/14/22 12:45 Pulse Ox 96 03/14/22 12:45 FiO2 03/10/22 19:54 Intake & Output 03/13/22 03/14/22 03/14/22 18:59 06:59 18:59 Output Total 0 Balance 0 Weight 74.843 kg Output: Urine 0 Other: # Voids 4 - Labs CBC & Chem 7: 03/14/22 05:44 03/14/22 05:41 Labs: Abnormal Lab Results - Last 24 Hours (Table) 03/13/22 03/13/22 03/14/22 Range/Units 16:37 20:46 05:41 WBC (4.50-10.00) X 10*3/uL Immature Gran # (0.00-0.04) X 10*3/uL Neutrophils # (1.80-7.70) X 10*3/uL BUN 67.0 H (9.0-27.0) mg/dL Creatinine 2.4 H (0.6-1.5) mg/dL Est GFR (CKD-EPI)AfAm 33.2 L (60.0-200.0) Est GFR (CKD-EPI)NonAf 28.7 L (60.0-200.0) BUN/Creatinine Ratio 27.92 H (12.00-20.00) Ratio Glucose 211 H (70-110) mg/dL POC Glucose (mg/dL) 287 H 290 H (70-110) mg/dL Calcium 8.6 L (8.7-10.3) mg/dL Total Bilirubin 0.20 L (0.30-1.20) mg/dL AST 11 L (14-35) U/L Total Protein 5.8 L (6.2-8.2) g/dL Albumin 3.2 L (3.8-4.9) g/dL Albumin/Globulin Ratio 1.23 L (1.60-3.17) g/dL 03/14/22 03/14/22 03/14/22 Range/Units 05:44 06:07 11:26 WBC 11.01 H (4.50-10.00) X 10*3/uL Immature Gran # 0.08 H (0.00-0.04) X 10*3/uL Neutrophils # 8.94 H (1.80-7.70) X 10*3/uL BUN (9.0-27.0) mg/dL Creatinine (0.6-1.5) mg/dL Est GFR (CKD-EPI)AfAm (60.0-200.0) Est GFR (CKD-EPI)NonAf (60.0-200.0) BUN/Creatinine Ratio (12.00-20.00) Ratio Glucose (70-110) mg/dL POC Glucose (mg/dL) 205 H 121 H (70-110) mg/dL Calcium (8.7-10.3) mg/dL Total Bilirubin (0.30-1.20) mg/dL AST (14-35) U/L Total Protein (6.2-8.2) g/dL Albumin (3.8-4.9) g/dL Albumin/Globulin Ratio (1.60-3.17) g/dL Assessment and Plan Time with Patient: Greater than 30
[2022-03-14 20:20] LABS: Glucose,Whole Blood 172 mg/dL (70-110)
[2022-03-14] MEDS: ATORVASTATIN 80 MG TAB PO SCH (20:45)
[2022-03-14] MEDS: INSULIN DETEMIR (LEVEMIR) 100 UNIT/ML SYR SQ SCH (20:46)
[2022-03-14] MEDS: EZETIMIBE 10 MG TAB PO SCH (20:46)
[2022-03-14] MEDS: LOPERAMIDE 2 MG CAP PO PRN (20:53)
[2022-03-15] MEDS: MORPHINE SULFATE 2 MG/ML SYRINGE IVP PRN ×4 (04:21→18:36)
[2022-03-15] MEDS: LOPERAMIDE 2 MG CAP PO PRN (04:21)
[2022-03-15] MEDS: SODIUM CHLORIDE 0.9% 1,000 ML IV SCH (04:24)
[2022-03-15 06:16] LABS: Glucose,Whole Blood 99 mg/dL (70-110)
[2022-03-15] MEDS: INSULIN ASPART (NovoLOG) 100 UNIT/ML VIAL SQ SCH ×7 (06:35→20:37)
[2022-03-15] MEDS: SYMBICORT 160-4.5 MCG INHALER INHALATION SCH ×2 (07:19→20:13)
[2022-03-15] MEDS: cloNIDine HCL 0.1 MG TAB PO SCH ×2 (08:26→20:36)
[2022-03-15] MEDS: METOPROLOL TARTRATE 50 MG TAB PO SCH ×2 (08:26→20:36)
[2022-03-15] MEDS: predniSONE 10 MG TAB PO SCH (08:26)
[2022-03-15] MEDS: CLOPIDOGREL 75 MG TAB PO SCH (08:26)
[2022-03-15] MEDS: GABAPENTIN 300 MG CAP PO SCH ×2 (08:26→20:36)
[2022-03-15] MEDS: APIXABAN 2.5 MG TABLET PO SCH ×2 (08:26→20:36)
[2022-03-15] MEDS: PANTOPRAZOLE 40 MG TABLET PO SCH (08:26)
[2022-03-15] MEDS: POTASSIUM CHLORIDE ER 10 MEQ TAB.ER.PRT PO SCH (08:26)
[2022-03-15] MEDS: hydrALAZINE HCL 50 MG TAB PO SCH (08:26)
[2022-03-15 09:38] LABS: Basophils # (A) 0.01 X 10*3/uL (0.00-0.10); Basophils % (A) 0.1 %; Eosinophils # (A) 0.34 X 10*3/uL (0.04-0.35); Eosinophils % (A) 2.7 %; HCT 39.2 % (39.6-50.0); HGB 12.7 g/dL (13.0-17.0); Immature Grans, Automated 0.8 %; Lymphocytes # (A) 1.49 X 10*3/uL (0.90-5.00); Lymphocytes % (A) 11.9 %; MCH 27.5 pg (27.0-32.0); MCHC 32.4 g/dL (32.0-37.0); MCV 84.8 fL (80.0-97.0); Mean Platelet Volume 10.7 fL (9.5-12.2); Monocytes # (A) 1.02 X 10*3/uL (0.20-1.00); Monocytes % (A) 8.1 %; NRBC Per 100 WBC 0 /100 WBCS (0.0-0.0); Neutrophils # (A) 9.59 X 10*3/uL (1.80-7.70); Neutrophils % (A) 76.4 %; Platelet Count 200 X 10*3/uL (140-440); RBC 4.62 X 10*6/uL (4.40-5.60); RDW 13.2 % (11.5-14.5); WBC 12.55 X 10*3/uL (4.50-10.00)
[2022-03-15 10:13] LABS: African American GFR (CKD) 44.1 (60.0-200.0); Anion Gap 10.4 mmol/L (10.00-18.00); BUN/Creat Ratio 26.53 Ratio (12.00-20.00); Blood Urea Nitrogen 50.4 mg/dL (9.0-27.0); Calcium 8.3 mg/dL (8.7-10.3); Carbon Dioxide 24.6 mmol/L (20.0-27.5); Potassium 3.2 mmol/L (3.5-5.5)
--- NOTE | 2022-03-15 10:36 | P.PN ---
Subjective Patient is seen for follow-up for acute kidney injury mostly prerenal associated with recent diuresis. Diuretics were held along with angiotensin receptor blockers and patient was started on IV fluids. Renal function has been improving with serum creatinine down to 1.9 from 3.0 at peak. Initial creatinine was 0.9 mg/dL on initial admission. This morning patient is complaining of some wheezing. He continues to have significant diarrhea and states that the Imodium has not helped. No significant shortness of breath. Objective - Vital Signs Vital signs: Vital Signs Temp 97.6 F 03/15/22 07:16 Pulse 54 L 03/15/22 08:20 Resp 18 03/15/22 08:20 BP 163/89 03/15/22 07:16 Pulse Ox 95 03/15/22 07:16 FiO2 21 03/10/22 19:54 Intake & Output 03/14/22 03/15/22 03/15/22 18:59 06:59 18:59 Intake Total 2280 Balance 2280 Weight 74.843 kg Intake: Intake, IV Titration 1200 Amount Sodium Chloride 0.9% 1, 1200 000 ml @ 100 mls/hr IV . Q10H [facility] Rx#:[id number] Oral 1080 Other: # Voids 3 # Bowel Movements 5 2 - Exam Awake, comfortable, no acute distress alert oriented 3 Examination of the heart S1 and S2 Examination lungs decreased breath sounds at the bases wheezing heard bilaterally Abdomen is soft nontender Examination lower extremity shows 1+ edema bilaterally OSTEOPATHIC PHYSICIAN exam grossly intact - Labs CBC & Chem 7: 03/15/22 06:02 03/15/22 06:02 Labs: Abnormal Lab Results - Last 24 Hours (Table) 03/14/22 03/14/22 03/14/22 Range/Units 11:26 16:29 20:17 WBC (4.50-10.00) X 10*3/uL Hgb (13.0-17.0) g/dL Hct (39.6-50.0) % Immature Gran # (0.00-0.04) X 10*3/uL Neutrophils # (1.80-7.70) X 10*3/uL Monocytes # (0.20-1.00) X 10*3/uL Potassium (3.5-5.5) mmol/L BUN (9.0-27.0) mg/dL Creatinine (0.6-1.5) mg/dL Est GFR (CKD-EPI)AfAm (60.0-200.0) Est GFR (CKD-EPI)NonAf (60.0-200.0) BUN/Creatinine Ratio (12.00-20.00) Ratio POC Glucose (mg/dL) 121 H 128 H 172 H (70-110) mg/dL Calcium (8.7-10.3) mg/dL 03/15/22 03/15/22 Range/Units 06:02 06:02 WBC 12.55 H (4.50-10.00) X 10*3/uL Hgb 12.7 L (13.0-17.0) g/dL Hct 39.2 L (39.6-50.0) % Immature Gran # 0.10 H (0.00-0.04) X 10*3/uL Neutrophils # 9.59 H (1.80-7.70) X 10*3/uL Monocytes # 1.02 H (0.20-1.00) X 10*3/uL Potassium 3.2 L (3.5-5.5) mmol/L BUN 50.4 H (9.0-27.0) mg/dL Creatinine 1.9 H (0.6-1.5) mg/dL Est GFR (CKD-EPI)AfAm 44.1 L (60.0-200.0) Est GFR (CKD-EPI)NonAf 38.0 L (60.0-200.0) BUN/Creatinine Ratio 26.53 H (12.00-20.00) Ratio POC Glucose (mg/dL) (70-110) mg/dL Calcium 8.3 L (8.7-10.3) mg/dL Assessment and Plan Assessment: 1. Acute kidney injury mostly prerenal associated with recent diuresis. Patient received a dose of Toradol in the ER. He was also maintained on angiotensin receptor blockers. Patient denies any urinary symptoms. Ultrasound does not show any evidence of obstruction. Currently maintained on IV fluids with improvement in renal function and diuretics are on hold. 2. RSV pneumonia/bronchitis 3. Coronary artery disease with history of coronary artery bypass surgery 4. Hypokalemia status post replacement. Etiology is diuresis 5. Hypertension, uncontrolled secondary to steroids. Hold losartan for 1-2 days and increase hydralazine. Plan: DC saline Increase hydralazine to 75 mg 3 times a day Can resume losartan tomorrow if renal function continues to improve and patient may need to restart low-dose loop diuretics. Check chest x-ray
--- NOTE | 2022-03-15 11:20 | P.PN ---
Subjective Progress Note Date: 03/15/22 Principal diagnosis: Shortness of breath/cough. Pulmonary consult dated 03/10/2022. 56-year-old male who presented to the emergency department on March 09 complaining of cough, chest congestion, and shortness of breath. The patient comes in with a two to four-day history of increasing shortness of breath, cough, chest congestion, and minimal phlegm production. He denied any fever or chills. He denies any chest pain or chest discomfort. The patient was evaluated in the emergency department, and admitted to the hospital. His chest x-ray was normal. He did test positive for respiratory syncytial virus. The patient denies a history of any significant lung disease. The patient is a lifelong nonsmoker. Currently, he's on room air. He's not receiving any IV fluids. White count 8.6, hemoglobin 13.1, hematocrit 38.1, and platelet count 237,000. Sodium 137, potassium 3.2, chlorides 98, CO2 29, BUN 15, creatinine 0.94. He did test positive for RSV. He tested negative for influenza, and coronavirus infection. Chest x-ray was reported as being normal. Progress note dated 03/11/2022. 56-year-old male seen yesterday in consultation. Please see the note above. The patient came in with cough, shortness of breath, and chest congestion. He was found to be positive for RSV. Currently, the patient is on room air. He's not receiving any IV fluids. As mentioned yesterday, I thought the patient could be discharged home on some prednisone. Clinically he is doing much better. No new labs today. Progress note dated 03/12/2022. 56-year-old male seen in consultation 2 days ago. He was admitted with a diagnosis of RSV infection, with reactive bronchospasm and bronchial inflammation. The patient's currently on room air. The patient is not receivin g any IV fluids. In our opinion, the patient could be discharged home. The patient's clinically very stable. No new lab data today. Glucose was 247. Progress note dated 03/14/2022. 56-year-old male again seen in room 477. He's on room air. The patient is receiving saline at 100 mL an hour. From the pulmonary standpoint, although the patient is still a bit short of breath and wheezing, we thought the patient could be discharged home. Labs today include a white count of 11, hemoglobin 13 .3, hematocrit 40.7, and a normal platelet count. Sodium 138, potassium 3.6, chlorides 103, CO2 23, BUN 67, and creatinine 2.4. Calcium 8.6. CT is reviewed, and other than some cardiomegaly, and ASHD, the CT is essentially unremarkable. Progress note dated 03/15/2022. 56-year-old male again seen in room 477. The patient continues on room air. The patient is receiving saline at 100 mL an hour. Clinically, he appears stable. From the pulmonary standpoint, the patient does admit to some oc casional wheezing, and a bit of shortness of breath, particularly on exertion. The patient has never required oxygen during his hospitalization. White count 12.55, hemoglobin 12.7, hematocrit 39.2, and platelet count 200,000. Sodium 142, potassium 3.2, chlorides 107, CO2 25, anion gap 10, BUN 40, and creatinine 1.9. With fluid administration, the patient's creatinine has gone from 3, down to 2.4, down to 1.9. The creatinine on March [address] from March 13, showed evidence of cardiomegaly, and reactive adenopathy. The pleural effusion is improved, and there is some basilar atelectasis. No suspicious pulmonary mass is noted. Objective - Vital Signs Vital signs: Vital Signs Temp 97.6 F 03/15/22 07:16 Pulse 54 L 03/15/22 08:20 Resp 18 03/15/22 08:20 BP 163/89 03/15/22 07:16 Pulse Ox 95 03/15/22 07:16 FiO2 21 03/10/22 19:54 Intake & Output 03/14/22 03/15/22 03/15/22 18:59 06:59 18:59 Intake Total 2280 Balance 2280 Weight 74.843 kg Intake: Intake, IV Titration 1200 Amount Sodium Chloride 0.9% 1, 1200 000 ml @ 100 mls/hr IV . Q10H INDERJIT Rx#:[id number] Oral 1080 Other: # Voids 3 # Bowel Movements 5 2 - Exam No acute distress, oriented 3. No respiratory distress, audible wheezing, use of accessory muscles, or conversational dyspnea. HEENT examination is grossly unremarkable. Neck supple. Full range of motion. No adenopathy thyromegaly or neck vein distention. Cardiovascular examination reveals regular rhythm rate. S1-S2 normal. No S3 or S4. No discernible murmur noted. Heart sounds are distant. Heart rate 54 bpm. Lungs reveal mild bilateral expiratory wheezes. Breath sounds equal. Scattered rhonchi. No crackles. Breath sounds are equal bilaterally. Room air saturations are 97 %. Abdomen soft bowel sounds are heard. No masses or tenderness. Extremities are intact. No cyanosis or edema. Fingertip clubbing is noted. Skin is without rash or lesion. Neurologic examination is brief but nonfocal. - Labs CBC & Chem 7: 03/15/22 06:02 03/15/22 06:02 Labs: Abnormal Lab Results - Last 24 Hours (Table) 03/14/22 03/14/22 03/14/22 Range/Units 11:26 16:29 20:17 WBC (4.50-10.00) X 10*3/uL Hgb (13.0-17.0) g/dL Hct (39.6-50.0) % Immature Gran # (0.00-0.04) X 10*3/uL Neutrophils # (1.80-7.70) X 10*3/uL Monocytes # (0.20-1.00) X 10*3/uL Potassium (3.5-5.5) mmol/L BUN (9.0-27.0) mg/dL Creatinine (0.6-1.5) mg/dL Est GFR (CKD-EPI)AfAm (60.0-200.0) Est GFR (CKD-EPI)NonAf (60.0-200.0) BUN/Creatinine Ratio (12.00-20.00) Ratio POC Glucose (mg/dL) 121 H 128 H 172 H (70-110) mg/dL Calcium (8.7-10.3) mg/dL 03/15/22 03/15/22 Range/Units 06:02 06:02 WBC 12.55 H (4.50-10.00) X 10*3/uL Hgb 12.7 L (13.0-17.0) g/dL Hct 39.2 L (39.6-50.0) % Immature Gran # 0.10 H (0.00-0.04) X 10*3/uL Neutrophils # 9.59 H (1.80-7.70) X 10*3/uL Monocytes # 1.02 H (0.20-1.00) X 10*3/uL Potassium 3.2 L (3.5-5.5) mmol/L BUN 50.4 H (9.0-27.0) mg/dL Creatinine 1.9 H (0.6-1.5) mg/dL Est GFR (CKD-EPI)AfAm 44.1 L (60.0-200.0) Est GFR (CKD-EPI)NonAf 38.0 L (60.0-200.0) BUN/Creatinine Ratio 26.53 H (12.00-20.00) Ratio POC Glucose (mg/dL) (70-110) mg/dL Calcium 8.3 L (8.7-10.3) mg/dL Assessment and Plan Assessment: Acute bronchitis with bronchospasm and bronchial inflammation, secondary to RSV infection, much improved. Remote history of mild asthma. Acute kidney injury, likely related to dehydration, improved. History of CAD, with previous bypass grafting, 6 vessel. Previous cardiac catheterizations with stent placement. History of hypertension. History of hyperlipidemia. Diabetes mellitus. History of deep venous thrombosis. History of myocardial infarction. History of obstructive sleep apnea syndrome, maintained on CPAP. History of cellulitis. Diabetic neuropathy. History of spinal fusion. Left forearm compartment syndrome, with previous fasciotomy. Plan: Plan dated 03/10/2022. Labs, x-rays, and medications are reviewed. The patient appears quite comfortable. Room air saturation 98%. The patient did test positive for respiratory syncytial virus, and he does have bronchospasm, and bronchial inflammation. The patient was placed on Symbicort. The patient continues on updrafts, and is also on Solu-Medrol, 40 mg IV push every 6 hours. We will continue to follow. In my opinion, the patient could be considered for early discharge, chest x-ray is normal. He is not requiring any supplemental oxygen. He could be discharged home on Symbicort, prednisone and a rescue inhaler. Plan dated 03/11/2022. The patient's doing very well. The patient informed me that he will not be discharged today but rather tomorrow according to his hospital doctor. The patient is stable, could be considered for discharge. Labs, x-rays, medications are reviewed. The patient's on appropriate medications. Prognosis is thought to be generally good. No additional recommendations are made. Plan dated 03/12/2022. The patient's doing very well. The patient and our opinion could be discharged. She is on appropriate medications. Solu-Medrol has been converted to prednisone. Labs, x-rays, and medications are reviewed. Prognosis is thought to be generally good. No additional recommendations are made at this time. Plan dated 03/14/2022. The patient's renal function appears to be improved. The patient still a bit short of breath and still having some expiratory wheezes. The patient's on room air. He appears relatively comfortable. Labs, x-rays, and medications are all reviewed. Prognosis is thought to be generally good. We will continue to follow make recommendations along the way. Plan dated 03/15/2022. The patient is stable from the pulmonary standpoint. Additional recommendations and suggestions are forthcoming. Patient remains on appropriate medications including prednisone and Symbicort. The patient also remains on albuterol sulfate and ipratropium bromide. We will continue to follow the patient and make recommendations along the way. The patient's renal function has improved. Hopeful discharge within the next 24 hours. Time with Patient: Less than 30
[2022-03-15 11:37] LABS: Glucose,Whole Blood 93 mg/dL (70-110)
[2022-03-15] MEDS ORDERED: POTASSIUM CHLORIDE ER 20 MEQ TAB.ER PO STA (14:33)
[2022-03-15] MEDS: IPRATROPIUM-ALBUTEROL 3 ML NEB INHALATION PRN ×2 (15:52→20:13)
[2022-03-15 16:53] LABS: Glucose,Whole Blood 203 mg/dL (70-110)
--- NOTE | 2022-03-15 17:04 | XR ---
EXAMINATION TYPE: XR chest 1V DATE OF EXAM: 03/15/2022 COMPARISON: 03/09/2022 HISTORY: Short of breath TECHNIQUE: FINDINGS: There is no heart failure nor confluent pneumonic infiltrate. There are sternal wires. Cost ophrenic angles are clear. Bony thorax is intact. IMPRESSION: No active cardiopulmonary disease. No change compared to old exam.
[2022-03-15 20:24] LABS: Glucose,Whole Blood 230 mg/dL (70-110)
[2022-03-15] MEDS: EZETIMIBE 10 MG TAB PO SCH (20:36)
[2022-03-15] MEDS: hydrALAZINE HCL 25 MG TAB PO SCH (20:37)
[2022-03-15] MEDS: INSULIN DETEMIR (LEVEMIR) 100 UNIT/ML SYR SQ SCH (20:37)
[2022-03-15] MEDS: ATORVASTATIN 80 MG TAB PO SCH (20:37)
--- NOTE | 2022-03-15 22:07 | P.PN ---
Subjective Progress Note Date: 03/15/22 HISTORY OF PRESENT ILLNESS: This is a 56-year-old male patient of rosita and Dr. Ga with past medical history of coronary artery disease status post 6 vessel CABG 2006 with MAE to LAD, saphenous venous graft to the PDA, saphenous venous graft to the obtuse marginal one, radial artery to the obtuse marginal branch 2 and saphenous venous graft to the obtuse marginal 3 followed by heart catheterization with PCI and stent of the saphenous venous graft to the RCA in 2015 at which time he pre sented with non-ST elevated myocardial infarction. Most recent cardiac catheterization was performed in March of 2019 which revealed severe triple- vessel coronary artery disease with a patent ramus intermediate, patent SVG to the OM, patent MAE to the LAD, and occluded saphenous vein graft to the RCA which is chronic from before. Medical therapy was advised at that time. History of hypertension hypertensive cardiovascular disease with left ventricular hypertrophy, hyperlipidemia, ischemic cardiomyopathy, paroxysmal atrial fibrillation currently on Eliquis , diabetes mellitus type 2 with diabetic polyneuropathy, hyperlipidemia, asthma, obstructive sleep apnea on CPAP, chronic low back pain, DVT in the past, patient has been following with me on a regular basis, he developed to have a significant shortness breath associated with increased coughing and pleuritic chest pain ended up coming to the emergency department at [facility] today because of increased chest pain associa raquel with increased shortness breath, he was found to be positive for RSV, and he was in atrial fibrillation with rapid ventricular response, patient was started on Solu-Medrol 40 mg IV push every 6 hours, he was also placed on DuoNeb 3 and an immunization 4 times every day as well as oxygen support, he was admitted to the hospital with cardiology and pulmonary evaluation, patient also wa antonio caldwell and he stated that he has not been taking his blood pressure medications over the last few days, because she was not feeling well. 03/10: Patient is seen today on the cardiac stepdown unit. Patient has been resumed on his home antihypertensive medications and blood pressure is well controlled. He has been seen by cardiology with plan to continue current medications and obtain echocardiogram. Patient is also been seen by pulmonary medicine and maintained on Pulmicort, DuoNeb treatments and IV Solu-Medrol. Patient continues to have a cough with clear sputum production. Breathing stat us is stable. We'll plan to decrease frequency of Solu-Medrol to every 12 hours. 03/11: Patient continues to complain of cough that is nonproductive with wheezing. Patient is been afebrile, heart rate in the 70s, blood pressure 116/77, pulse ox 95% on room air. Her blood glucose running between 236 and 358. Patient will be continued on IV Solu-Medrol and Lantus will be increased to 30 units. Patient will be transferred to [facility] floor. 03/12: Patient is seen today on the [facility] floor. Cardiology has signed off. Patient continues to have wheezing and cough that is nonproductive. He has been afebrile, heart rate in the 60s and 70s, blood pressure 118/72 and pulse ox 92% on room air. Capillary blood glucose are improved running between 125 and 247. Pulmonary medicine has transition patient to oral prednisone. He is continued on nebulizer treatments, Robitussin and Symbicort. Patient is also continued on his home medication regime. Anticipate discharge home tomorrow. 03/13: [facility]. He is having increased shortness of breath with wheezing and also diarrhea. Blood work came back surprisingly with a creatinine of 3, BUN 78, hemoglobin was 12.9 and WBC 12.2. Patient will be started on IV fluids 0.9 normal saline at 100 mL per hour, will discontinue metformin, Lasix and hydrochlorothiazide. Blood pressure is been stable 114/83, heart rate in the 50s and 60s. Echocardiogram reveals EF of 60%. Possible amyloidosis, moderate concentric left ventricular hypertrophy, [id number] tricuspid regurgitation, RVSP 34.8 03/14/2022 Patient is currently lying in the bed. Awake alert and oriented x3. Still complains of shortness of breath and wheezing and exertional dyspnea. Patient also states that he has decreased urine output and is being continued on normal saline 100 cc/h. Renal function improved to 2.4 creatinine level. baseline creatinine level 0.9 Nephrology and pulmonary is on board. CT chest done yesterday showed cardiomegaly. Atherosclerotic vascular disease. Nonspecific mediastinal lymph nodes. Lymph nodes slightly increased as compared to oral exam. There is clearing of the right pleural effusion compatible exam minimal subsegmental atelectasis right lung base. No suspicious pulmonary mass. Currently on prednisone 30 mg daily and duo nebs and Symbicort. Laboratory data showed WBC 11.0 hemoglobin 13.3 and platelets 226 Sodium 138 potassium 3.6 chloride 103 bicarb is 22.5 BUN 67 creatinine 2.4 and blood sugar is 211 and total bilirubin level is 0.2 and alk phos 80 albumin 3.2. 03/15/2022 Patient is resting in the bed. Awake alert and oriented. Complains of diarrhea with loose stools. No complaints of abdominal pain. No nausea or vomiting. Otherwise breathing status is better. Still having expiratory wheezing. IV fluids have been discontinued. Repeat chest x-ray today showed no active cardiopulmonary disease. No change compared to an exam. Renal function improved with creatinine 1.9. Patient is being current on prednisone 30 mg daily and continue with insulin regimen. Pulmonary and nephrology is on board. Anticipate discharge in the next 24 hours. REVIEW OF SYSTEMS: Constitutional: No documented fever, no chills, no night sweats. No weight change. positive for weakness,positive for fatigue or lethargy. No daytime sleepiness. HEENT: No headache. No blurred vision or double vision, no loss of vision. No loss of Hearing, no ringing in the ears, no dizziness. No nasal drainage or congestion. No epistaxis. No sore throat. Lungs: positive for shortness of breath, positive for cough, denies sputum production. positive for wheezing. Reports dyspnea with activity. Cardiovascular: pleuritic chest pain, no lower extremity edema. No palpitations. No paroxysmal nocturnal dyspnea. No orthopnea. No lightheadedness or dizziness. No syncopal episodes. Abdominal: Reports abdominal pain. No nausea, vomiting. Reports diarrhea. No constipation. No bloody or tarry stools reports loss of appetite. Genitourinary: No dysuria, increased frequency, urgency. No urinary retention. Musculoskeletal: No myalgias. No muscle weakness, no gait dysfunction, no frequent falls. No back pain. No neck pain. Integumentary: No wounds, no lesions. No rash or pruritus. No unusual bruising. No change in hair or nails. Neurologic: No aphasia. No facial droop. No change in mentation. No head injury. No headache. No paralysis. No paresthesia. Psychiatric: No depression. No anxiety. No mood swings. Endocrine: Noted abnormal blood sugars with improvement. No weight change. PHYSICAL EXAMINATION: General: 56-year-old male laying down in bed in no respiratory distress. HEENT: Head is atraumatic, normocephalic, pupils were equal round reactive to light, conjunctivae were pale, mucous membranes of the mouth are somewhat dry. Neck: Supple, no JVP. Chest: Patient does have expiratory wheezing and scattered rhonchi., no chest wall tenderness, no intercostal retractions. Heart: First heart sound is normal, second heart sounds normal, irregularly irregular, there is systolic ejection murmur 2/6 located in the left sternal border. Abdomen: Soft, nontender, nondistended, positive bowel sounds. Extremities: There is no edema no calf tenderness DP +1 bilaterally. Neurologic examination: Patient is awake alert and oriented X 3. ASSESSMENT AND PLAN: 1. Acute hypoxemic respiratory failure due to acute asthma exacerbation complicated by RSV infection . Patient is transitioned to room air. IV Solu- Medrol has been transitioned to oral prednisone, continue DuoNeb 3 mg nebulization 4 times every day, contact/droplet precautions, pulmonary is on board. 2. Atrial fibrillation with rapid ventricular response. Rate controlled. Restarted the patient back on his metoprolol 100 mg orally twice every day, continue to monitor the patient very closely, restart the patient back on Eliquis 2.5 mg orally twice every day. Cardiology consultation appreciated. 3. Accelerated hypertension. Patient has been off his blood pressure medication for the last few days. Started the patient on losartan 100/25 mg orally once every day, continue patient on metoprolol 100 mg orally twice every day, continue hydralazine 50 mg orally twice every day, continue clonidine 0.1 mg orally twice every day monitor the patient blood pressure very closely. 4. Acute kidney injury Likely due to vasomotor nephropathy/prerenal. Metformin, Lasix and hydrochlorothiazide discontinued. on IV fluid 0.9 normal saline at 100 mL/h, recheck a CMP in the morning.Creatinine improved to 2.4-->1.9 today. Baseline 0.9. DCed fliuids today 5. Diabetes mellitus type 2, uncontrolled with hyperglycemia secondary to noncompliance and use of steroids. Continue Levemir to 30 units at bedtime along with a sliding scale insulin monitor the patient hemoglobin A1c, NovoLog 6 units with meals added. 6. Diarrhea. The patient started on IV fluids, continue to monitor closely. 7. Coronary artery disease status post CABG 6 as well as PCI in the past. Continue patient on Plavix 75 mg once every day, metoprolol 100 mg orally twice every day, continue patient on atorvastatin 80 mg orally once every day, continues Zetia 10 mg orally once every day. 8. Hyperlipidemia. Continue patient on atorvastatin 80 mg once every day, continue Zetia 10 mg orally once every day, monitor lipid panel, keep LDL 55-70. 9. Diabetic polyneuropathy. Continue patient on gabapentin 100 mg orally 3 times every day. 10. Obstructive sleep apnea. Patient does have a CPAP at home. 11. Chronic low back pain. Continue gabapentin 900 mg orally 3 times every day. 12. Pleuritic chest pain. Start the patient on morphine 2 mg IV push every 4 hours as needed. 13. DVT prophylaxis. Continue Eliquis 2.5 mg orally twice every day. 14. GI prophylaxis. Start the patient on Protonix 40 mg orally once every day. Patient's full code. Discharge plan: Home Objective - Vital Signs Vital signs: Vital Signs Temp 98.3 F 03/15/22 19:18 Pulse 78 03/15/22 20:22 Resp 18 03/15/22 19:18 BP 165/87 03/15/22 19:18 Pulse Ox 96 03/15/22 19:18 FiO2 21 03/10/22 19:54 Intake & Output 03/15/22 03/15/22 03/16/22 06:59 18:59 06:59 Intake Total 1080 Balance 1080 Intake: Oral 1080 Other: # Voids 3 3 1 # Bowel Movements 5 2 - Labs CBC & Chem 7: 03/15/22 06:02 03/15/22 06:02 Labs: Abnormal Lab Results - Last 24 Hours (Table) 03/15/22 03/15/22 03/15/22 Range/Units 06:02 06:02 16:52 WBC 12.55 H (4.50-10.00) X 10*3/uL Hgb 12.7 L (13.0-17.0) g/dL Hct 39.2 L (39.6-50.0) % Immature Gran # 0.10 H (0.00-0.04) X 10*3/uL Neutrophils # 9.59 H (1.80-7.70) X 10*3/uL Monocytes # 1.02 H (0.20-1.00) X 10*3/uL Potassium 3.2 L (3.5-5.5) mmol/L BUN 50.4 H (9.0-27.0) mg/dL Creatinine 1.9 H (0.6-1.5) mg/dL Est GFR (CKD-EPI)AfAm 44.1 L (60.0-200.0) Est GFR (CKD-EPI)NonAf 38.0 L (60.0-200.0) BUN/Creatinine Ratio 26.53 H (12.00-20.00) Ratio POC Glucose (mg/dL) 203 H (70-110) mg/dL Calcium 8.3 L (8.7-10.3) mg/dL 03/15/22 Range/Units 20:22 WBC (4.50-10.00) X 10*3/uL Hgb (13.0-17.0) g/dL Hct (39.6-50.0) % Immature Gran # (0.00-0.04) X 10*3/uL Neutrophils # (1.80-7.70) X 10*3/uL Monocytes # (0.20-1.00) X 10*3/uL Potassium (3.5-5.5) mmol/L BUN (9.0-27.0) mg/dL Creatinine (0.6-1.5) mg/dL Est GFR (CKD-EPI)AfAm (60.0-200.0) Est GFR (CKD-EPI)NonAf (60.0-200.0) BUN/Creatinine Ratio (12.00-20.00) Ratio POC Glucose (mg/dL) 230 H (70-110) mg/dL Calcium (8.7-10.3) mg/dL
[2022-03-16] MEDS: MORPHINE SULFATE 2 MG/ML SYRINGE IVP PRN ×4 (01:04→21:21)
[2022-03-16 06:12] LABS: Glucose,Whole Blood 140 mg/dL (70-110)
[2022-03-16] MEDS: INSULIN ASPART (NovoLOG) 100 UNIT/ML VIAL SQ SCH ×7 (06:30→21:11)
[2022-03-16] MEDS: IPRATROPIUM-ALBUTEROL 3 ML NEB INHALATION PRN ×4 (07:36→19:13)
[2022-03-16] MEDS: SYMBICORT 160-4.5 MCG INHALER INHALATION SCH ×2 (07:37→19:13)
[2022-03-16] MEDS: hydrALAZINE HCL 25 MG TAB PO SCH ×3 (08:01→21:11)
[2022-03-16] MEDS: predniSONE 10 MG TAB PO SCH (08:02)
[2022-03-16] MEDS: GABAPENTIN 300 MG CAP PO SCH ×2 (08:02→21:11)
[2022-03-16] MEDS: cloNIDine HCL 0.1 MG TAB PO SCH ×2 (08:02→21:11)
[2022-03-16] MEDS: METOPROLOL TARTRATE 50 MG TAB PO SCH ×2 (08:02→21:10)
[2022-03-16] MEDS: CLOPIDOGREL 75 MG TAB PO SCH (08:02)
[2022-03-16] MEDS: POTASSIUM CHLORIDE ER 10 MEQ TAB.ER.PRT PO SCH (08:02)
[2022-03-16] MEDS: APIXABAN 2.5 MG TABLET PO SCH ×2 (08:02→21:11)
[2022-03-16] MEDS: PANTOPRAZOLE 40 MG TABLET PO SCH (08:02)
[2022-03-16] MEDS: guaiFENesin SYRUP 100MG/5ML 200 MG/10 ML CUP PO PRN (08:38)
[2022-03-16 08:53] LABS: Basophils # (A) 0.02 X 10*3/uL (0.00-0.10); Basophils % (A) 0.2 %; Eosinophils # (A) 0.22 X 10*3/uL (0.04-0.35); Eosinophils % (A) 1.8 %; HCT 40.9 % (39.6-50.0); HGB 13.2 g/dL (13.0-17.0); Immature Grans, Automated 0.7 %; Lymphocytes # (A) 1.25 X 10*3/uL (0.90-5.00); Lymphocytes % (A) 10.4 %; MCH 27.7 pg (27.0-32.0); MCHC 32.3 g/dL (32.0-37.0); MCV 85.7 fL (80.0-97.0); Mean Platelet Volume 10.8 fL (9.5-12.2); Monocytes # (A) 0.78 X 10*3/uL (0.20-1.00); Monocytes % (A) 6.5 %; NRBC Per 100 WBC 0 /100 WBCS (0.0-0.0); Neutrophils # (A) 9.64 X 10*3/uL (1.80-7.70); Neutrophils % (A) 80.4 %; Platelet Count 215 X 10*3/uL (140-440); RBC 4.77 X 10*6/uL (4.40-5.60); RDW 13.3 % (11.5-14.5); WBC 11.99 X 10*3/uL (4.50-10.00)
[2022-03-16 09:01] LABS: African American GFR (CKD) 54.2 (60.0-200.0); Anion Gap 9.5 mmol/L (10.00-18.00); BUN/Creat Ratio 27.94 Ratio (12.00-20.00); Blood Urea Nitrogen 44.7 mg/dL (9.0-27.0); Calcium 8.4 mg/dL (8.7-10.3); Carbon Dioxide 23.5 mmol/L (20.0-27.5); Non-African American GFR(CKD) 46.8 (60.0-200.0); Potassium 4.1 mmol/L (3.5-5.5)
--- NOTE | 2022-03-16 09:36 | P.PN ---
Subjective Progress Note Date: 03/16/22 Pulmonary consult dated 03/10/2022. 56-year-old male who presented to the emergency department on March 09 complaining of cough, chest congestion, and shortness of breath. The patient comes in with a two to four-day history of increasing shortness of breath, cough, chest congestion, and minimal phlegm production. He denied any fever or chills. He denies any chest pain or chest discomfort. The patient was evaluated in the emergency department, and admitted to the hospital. His chest x-ray was normal. He did test positive for respiratory syncytial virus. The patient denies a history of any significant lung disease. The patient is a lifelong nonsmoker. Currently, he's on room air. He's not receiving any IV fluids. White count 8.6, hemoglobin 13.1, hematocrit 38.1, and platelet count 237,000. Sodium 137, potassium 3.2, chlorides 98, CO2 29, BUN 15, creatinine 0.94. He did test positive for RSV. He tested negative for influenza, and coronavirus infection. Chest x-ray was reported as being normal. Progress note dated 03/11/2022. 56-year-old male seen yesterday in consultation. Please see the note above. The patient came in with cough, shortness of breath, and chest congestion. He was found to be positive for RSV. Currently, the patient is on room air. He's not receiving any IV fluids. As mentioned yesterday, I thought the patient could be discharged home on some prednisone. Clinically he is doing much better. No new labs today. Progress note dated 03/12/2022. 56-year-old male seen in consultation 2 days ago. He was admitted with a diagnosis of RSV infection, with reactive bronchospasm and bronchial inflammation. The patient's currently on room air. The patient is not receiving any IV fluids. In our opinion, the patient could be discharged home. The patient's clinically very stable. No new lab data today. Glucose was 247. Progress note dated 03/14/2022. 56-year-old male again seen in room 477. He's on room air. The patient is receiving saline at 100 mL an hour. From the pulmonary standpoint, although the patient is still a bit short of breath and wheezing, we thought the patient could be discharged home. Labs today include a white count of 11, hemoglobin 13.3, hematocrit 40.7, and a normal platelet count. Sodium 138, potassium 3.6, chlorides 103, CO2 23, BUN 67, and creatinine 2.4. Calcium 8.6. CT is reviewed, and other than some cardiomegaly, and ASHD, the CT is essentially unremarkable. Progress note dated 03/15/2022. 56-year-old male again seen in room 477. The patient continues on room air. The patient is receiving saline at 100 mL an hour. Clinically, he appears stable. From the pulmonary standpoint, the patient does admit to some occasional wheezing, and a bit of shortness of breath, particularly on exertion. The patient has never required oxygen during his hospitalization. White count 12.55, hemoglobin 12.7, hematocrit 39.2, and platelet count 200,000. Sodium 142, potassium 3.2, chlorides 107, CO2 25, anion gap 10, BUN 40, and creatinine 1.9. With fluid administration, the patient's creatinine has gone from 3, down to 2.4, down to 1.9. The creatinine on March [address] from J anuary 20, showed evidence of cardiomegaly, and reactive adenopathy. The pleural effusion is improved, and there is some basilar atelectasis. No suspicious pulmonary mass is noted. 03/16/2022, the patient remains on prednisone which is a part of the burst taper 30 mg by mouth daily. Still bronchospastic and wheezy. Is currently on room air oxygen. Still having a lot of cough, wheezing congestion. He is post RSV infection and he also has multiple medical comorbidities including asthma which was mildly demented at baseline in addition to diabetes mellitus and coronary artery disease. CAT scan of the chest was unremarkable. Blood work from today shows a WBC count of 11.7 with a hemoglobin 13.2 and a platelet count of 2:15. Sodium is at 140 with a BUN of 44 and a creatinine of 1.6. Noted the patient and acute kidney injury and the creatinine peaked at 3.0 and currently is down to 1.6. Blood sugar currently is at 140. Tolerating diet. He needs an incentive spirometer. IV fluids are currently of KVO. Chest x-ray from yesterday showed no acute abnormalities. Objective - Vital Signs Vital signs: Vital Signs Temp 97.6 F 03/16/22 07:05 Pulse 76 03/16/22 07:44 Resp 19 03/16/22 07:05 BP 186/91 03/16/22 07:05 Pulse Ox 96 03/16/22 07:37 FiO2 21 03/16/22 07:37 Intake & Output 03/15/22 03/16/22 03/16/22 18:59 06:59 18:59 Intake Total 1080 Balance 1080 Intake: Oral 1080 Other: # Voids 3 1 1 # Bowel Movements 2 - Exam No acute distress, oriented 3. No respiratory distress, audible wheezing, use of accessory muscles, or conversational dyspnea. HEENT examination is grossly unremarkable. Neck supple. Full range of motion. No adenopathy thyromegaly or neck vein distention. Cardiovascular examination reveals regular rhythm rate. S1-S2 normal. No S3 or S4. No discernible murmur noted. Heart sounds are distant. Heart rate 54 bpm. Lungs reveal mild bilateral expiratory wheezes. Breath sounds equal. Scattered rhonchi. No crackles. Breath sounds are equal bilaterally. Room air satura tions are 97 %. Abdomen soft bowel sounds are heard. No masses or tenderness. Extremities are intact. No cyanosis or edema. Fingertip clubbing is noted. Skin is without rash or lesion. Neurologic examination is brief but nonfocal. - Labs CBC & Chem 7: 03/16/22 04:49 03/16/22 04:49 Labs: Abnormal Lab Results - Last 24 Hours (Table) 03/15/22 03/15/22 03/15/22 Range/Units 06:02 06:02 16:52 WBC 12.55 H (4.50-10.00) X 10*3/uL Hgb 12.7 L (13.0-17.0) g/dL Hct 39.2 L (39.6-50.0) % Immature Gran # 0.10 H (0.00-0.04) X 10*3/uL Neutrophils # 9.59 H (1.80-7.70) X 10*3/uL Monocytes # 1.02 H (0.20-1.00) X 10*3/uL Potassium 3.2 L (3.5-5.5) mmol/L Anion Gap (10.00-18.00) mmol/L BUN 50.4 H (9.0-27.0) mg/dL Creatinine 1.9 H (0.6-1.5) mg/dL Est GFR (CKD-EPI)AfAm 44.1 L (60.0-200.0) Est GFR (CKD-EPI)NonAf 38.0 L (60.0-200.0) BUN/Creatinine Ratio 26.53 H (12.00-20.00) Ratio Glucose (70-110) mg/dL POC Glucose (mg/dL) 203 H (70-110) mg/dL Calcium 8.3 L (8.7-10.3) mg/dL 03/15/22 03/16/22 03/16/22 Range/Units 20:22 04:49 04:49 WBC 11.99 H (4.50-10.00) X 10*3/uL Hgb (13.0-17.0) g/dL Hct (39.6-50.0) % Immature Gran # 0.08 H (0.00-0.04) X 10*3/uL Neutrophils # 9.64 H (1.80-7.70) X 10*3/uL Monocytes # (0.20-1.00) X 10*3/uL Potassium (3.5-5.5) mmol/L Anion Gap 9.50 L (10.00-18.00) mmol/L BUN 44.7 H (9.0-27.0) mg/dL Creatinine 1.6 H (0.6-1.5) mg/dL Est GFR (CKD-EPI)AfAm 54.2 L (60.0-200.0) Est GFR (CKD-EPI)NonAf 46.8 L (60.0-200.0) BUN/Creatinine Ratio 27.94 H (12.00-20.00) Ratio Glucose 176 H (70-110) mg/dL POC Glucose (mg/dL) 230 H (70-110) mg/dL Calcium 8.4 L (8.7-10.3) mg/dL 03/16/22 Range/Units 06:10 WBC (4.50-10.00) X 10*3/uL Hgb (13.0-17.0) g/dL Hct (39.6-50.0) % Immature Gran # (0.00-0.04) X 10*3/uL Neutrophils # (1.80-7.70) X 10*3/uL Monocytes # (0.20-1.00) X 10*3/uL Potassium (3.5-5.5) mmol/L Anion Gap (10.00-18.00) mmol/L BUN (9.0-27.0) mg/dL Creatinine (0.6-1.5) mg/dL Est GFR (CKD-EPI)AfAm (60.0-200.0) Est GFR (CKD-EPI)NonAf (60.0-200.0) BUN/Creatinine Ratio (12.00-20.00) Ratio Glucose (70-110) mg/dL POC Glucose (mg/dL) 140 H (70-110) mg/dL Calcium (8.7-10.3) mg/dL Assessment and Plan Plan: Acute bronchitis with bronchospasm and bronchial inflammation, secondary to RSV infection, improving slowly currently on room air oxygen. Chest x-rays the of any pulmonary infiltrates. Bronchial asthma with an acute exacerbation secondary to an RSV infection Acute kidney injury, likely related to dehydration, improved. Creatinine continues to improve History of CAD, with previous bypass grafting, 6 vessel. Previous cardiac catheterizations with stent placement. History of hypertension. History of hyperlipidemia. Diabetes mellitus. History of deep venous thrombosis. History of myocardial infarction. History of obstructive sleep apnea syndrome, maintained on CPAP. History of cellulitis. Diabetic neuropathy. History of spinal fusion. Left forearm compartment syndrome, with previous fasciotomy. Plan: Continue bronchodilators and a prednisone burst taper and the rest of the medication. Monitor creatinine which is essentially improving. The patient was made aware that this may take a longer times a day recovers. As part of his RSV infection. We'll continue to follow. Continue same treatment for now.
[2022-03-16] MEDS ORDERED: hydrALAZINE HCL 20 MG/ML 1 ML VIAL IVP PRN (10:01)
--- NOTE | 2022-03-16 10:03 | P.PN ---
Subjective Patient is seen in follow-up for acute kidney injury. Renal function improving. Has been voiding. Currently off IV fluids. Oral intake is fair. Currently on room air. Blood pressure high. Vital signs are stable. General: No acute distress. HEENT: Head exam is unremarkable. LUNGS: Breath sounds decreased. HEART: Rate and Rhythm are regular. ABDOMEN: Soft, no distention. EXTREMITITES: No edema. Objective - Vital Signs Vital signs: Vital Signs Temp 97.6 F 03/16/22 07:05 Pulse 76 03/16/22 07:44 Resp 19 03/16/22 07:05 BP 186/91 03/16/22 07:05 Pulse Ox 96 03/16/22 07:37 FiO2 21 03/16/22 07:37 Intake & Output 03/15/22 03/16/22 03/16/22 18:59 06:59 18:59 Intake Total 1080 Balance 1080 Intake: Oral 1080 Other: # Voids 3 1 1 # Bowel Movements 2 - Labs CBC & Chem 7: 03/16/22 04:49 03/16/22 04:49 Labs: Abnormal Lab Results - Last 24 Hours (Table) 03/15/22 03/15/22 03/15/22 Range/Units 06:02 06:02 16:52 WBC 12.55 H (4.50-10.00) X 10*3/uL Hgb 12.7 L (13.0-17.0) g/dL Hct 39.2 L (39.6-50.0) % Immature Gran # 0.10 H (0.00-0.04) X 10*3/uL Neutrophils # 9.59 H (1.80-7.70) X 10*3/uL Monocytes # 1.02 H (0.20-1.00) X 10*3/uL Potassium 3.2 L (3.5-5.5) mmol/L Anion Gap (10.00-18.00) mmol/L BUN 50.4 H (9.0-27.0) mg/dL Creatinine 1.9 H (0.6-1.5) mg/dL Est GFR (CKD-EPI)AfAm 44.1 L (60.0-200.0) Est GFR (CKD-EPI)NonAf 38.0 L (60.0-200.0) BUN/Creatinine Ratio 26.53 H (12.00-20.00) Ratio Glucose (70-110) mg/dL POC Glucose (mg/dL) 203 H (70-110) mg/dL Calcium 8.3 L (8.7-10.3) mg/dL 03/15/22 03/16/22 03/16/22 Range/Units 20: 04:49 04:49 WBC 11.99 H (4.50-10.00) X 10*3/uL Hgb (13.0-17.0) g/dL Hct (39.6-50.0) % Immature Gran # 0.08 H (0.00-0.04) X 10*3/uL Neutrophils # 9.64 H (1.80-7.70) X 10*3/uL Monocytes # (0.20-1.00) X 10*3/uL Potassium (3.5-5.5) mmol/L Anion Gap 9.50 L (10.00-18.00) mmol/L BUN 44.7 H (9.0-27.0) mg/dL Creatinine 1.6 H (0.6-1.5) mg/dL Est GFR (CKD-EPI)AfAm 54.2 L (60.0-200.0) Est GFR (CKD-EPI)NonAf 46.8 L (60.0-200.0) BUN/Creatinine Ratio 27.94 H (12.00-20.00) Ratio Glucose 176 H (70-110) mg/dL POC Glucose (mg/dL) 230 H (70-110) mg/dL Calcium 8.4 L (8.7-10.3) mg/dL 03/16/22 Range/Units 06:10 WBC (4.50-10.00) X 10*3/uL Hgb (13.0-17.0) g/dL Hct (39.6-50.0) % Immature Gran # (0.00-0.04) X 10*3/uL Neutrophils # (1.80-7.70) X 10*3/uL Monocytes # (0.20-1.00) X 10*3/uL Potassium (3.5-5.5) mmol/L Anion Gap (10.00-18.00) mmol/L BUN (9.0-27.0) mg/dL Creatinine (0.6-1.5) mg/dL Est GFR (CKD-EPI)AfAm (60.0-200.0) Est GFR (CKD-EPI)NonAf (60.0-200.0) BUN/Creatinine Ratio (12.00-20.00) Ratio Glucose (70-110) mg/dL POC Glucose (mg/dL) 140 H (70-110) mg/dL Calcium (8.7-10.3) mg/dL Assessment and Plan Plan: Assessment: 1. Acute kidney injury mostly prerenal improving with IV hydration. Creatinine was 3 on admission and is 1.6 today. Baseline creatinine near 1. No hydronephrosis noted on ultrasound. 2. RSV pneumonia. 3. Hypokalemia from diuresis. Replaced. Better. 4. Benign hypertension. Exacerbated by steroids. 5. Diabetes mellitus. 6. Mild to moderate tricuspid regurgitation. Plan: Encourage oral intake. Increase hydralazine to 75 mg 3 times daily. Add when necessary hydralazine as well. Continue to hold diuretics and losartan. Avoid nephrotoxins. Continue to monitor renal function and urine output. Check UA.
--- NOTE | 2022-03-16 11:14 | CDI ---
Documentation Clarification Form Date: 03/16/2022 10:56:04 AM From: Polina Diez CCS, CCDS Admit Date: 03/09/2022 3:55:00 PM Patient Name: Lakhwinder Hirsch Visit Number: [id number] Discharge Date: ATTENTION: The Clinical Documentation Specialists (CDI) and [facility] Coding Staff appreciate your assistance in clarifying documentation. Please respond to the clarification below the line at the bottom and electronically sign. The CDI & [facility] Coding staff will review the response and follow-up if needed. Please note: Queries are made part of the Legal Health Record. If you have any questions, please contact the author of this message via ITS. Dr. Joann Yates: Asthma nos is documented in the patient's Past Medical History without further specificity beginning the 03/09 ED Note. Acute Hypoxemic Respiratory Failure due to Acute Asthma Exacerbation complicated by RSV Infection is documented in the 03/09 H/P. Bronchial Asthma with an Acute Exacerbation secondary to an RSV Infection is documented in the 03/16 Pulmonary Progress Note. Additional clarification regarding the Type of Asthma is requested. History/risk factors per the 03/09 H/P: CAD status post CABG, Hypertension and Hypertensive Cardiovascular Disease, Paroxysmal Atrial Fibrillation, DM II, Hyperlipidemia, GERHARD, Ischemic Cardiomyopathy, Diabetic Polyneuropathy, Postherpetic Neuralgia, Asthma, Chronic Low Back Pain; Lumbar Fusion and Hernia Repair. Lifelong nonsmoker. Clinical Indicators: Presented to the ED on 03/09 with Upper Respiratory Infection symptoms, SOB, occasional sharp pain with coughing. Admit with RSV (Acute Bronchiolitis due to Respiratory Syncytial Virus), Anemia, Hypertensive Urgency, Atrial Fibrillation. 03/09 VS: T 99.8, P 98, R 20, 22, 23; BP 205/116, 185/123, 194/110; PO 96 RA, BMI: 25.8 03/09 LAB: RBC 3.37, Hgb 9.5, Hct 27.6, Plt Ct 109, Lymphocytes 0.3; K 3.2, Glucose 206, Total Bilirubin 1.5, Troponin 0.050, 0.048. 03/09: Influenza A/B: negative 03/09: RSV: Positive 03/09: COVID: negative. 03/09 CXR: No acute process. Correlate for cardiomegaly & COPD. Treatment 1/16: O2 2Lnc standby, INH Duoneb x1, q4H/prn; IV Apresoline 20 mg x1, Nitro sl q5M/prn, IV Toradol 15 mg x1, IV Morphine 2 mg q4H/prn, IV Solumedrol 40 mg q6H, Home meds. 03/14 Diuretics held, Hydralazine increased. Home Medications: Eliquis 5 mg BID, Insulin sq TID, Metformin BI, Apresoline BID, Catapres BI, K-Dur 10 daily, Lopressor BI, Hyzaar Daily, Gagapentin BI, Lasix daily, Zetia, Plavix daily, Lipitor. Please clarify the Type & Severity of Asthma, if known: [ ] Extrinsic asthma [ ] with exacerbation [ ] Intrinsic asthma [ ] with exacerbation [ x] Mild intermittent asthma [ x ] with exacerbation [ ] Mild persistent asthma [ ] with exacerbation [ ] Moderate persistent asthma [ ] with exacerbation [ ] Severe persistent asthma [ ] with exacerbation [ ] Other, please specify ____ [ ] Unable to determine (Template Last Revised: April 2020) MTDD
[2022-03-16 11:39] LABS: Glucose,Whole Blood 157 mg/dL (70-110)
--- NOTE | 2022-03-16 11:44 | P.PN ---
Subjective Progress Note Date: 03/16/22 HISTORY OF PRESENT ILLNESS: This is a 56-year-old male patient of rosita and Dr. Ga with past medical history of coronary artery disease status post 6 vessel CABG 2006 with MAE to LAD, saphenous venous graft to the PDA, saphenous venous graft to the obtuse marginal one, radial artery to the obtuse marginal branch 2 and saphenous venous graft to the obtuse marginal 3 followed by heart catheterization with PCI and stent of the saphenous venous graft to the RCA in 2015 at which time he pre sented with non-ST elevated myocardial infarction. Most recent cardiac catheterization was performed in March of 2019 which revealed severe triple- vessel coronary artery disease with a patent ramus intermediate, patent SVG to the OM, patent MAE to the LAD, and occluded saphenous vein graft to the RCA which is chronic from before. Medical therapy was advised at that time. History of hypertension hypertensive cardiovascular disease with left ventricular hypertrophy, hyperlipidemia, ischemic cardiomyopathy, paroxysmal atrial fibrillation currently on Eliquis , diabetes mellitus type 2 with diabetic polyneuropathy, hyperlipidemia, asthma, obstructive sleep apnea on CPAP, chronic low back pain, DVT in the past, patient has been following with me on a regular basis, he developed to have a significant shortness breath associated with increased coughing and pleuritic chest pain ended up coming to the emergency department at [facility] today because of increased chest pain associa raquel with increased shortness breath, he was found to be positive for RSV, and he was in atrial fibrillation with rapid ventricular response, patient was started on Solu-Medrol 40 mg IV push every 6 hours, he was also placed on DuoNeb 3 and an immunization 4 times every day as well as oxygen support, he was admitted to the hospital with cardiology and pulmonary evaluation, patient also wa antonio caldwell and he stated that he has not been taking his blood pressure medications over the last few days, because she was not feeling well. 03/10: Patient is seen today on the cardiac stepdown unit. Patient has been resumed on his home antihypertensive medications and blood pressure is well controlled. He has been seen by cardiology with plan to continue current medications and obtain echocardiogram. Patient is also been seen by pulmonary medicine and maintained on Pulmicort, DuoNeb treatments and IV Solu-Medrol. Patient continues to have a cough with clear sputum production. Breathing stat us is stable. We'll plan to decrease frequency of Solu-Medrol to every 12 hours. 03/11: Patient continues to complain of cough that is nonproductive with wheezing. Patient is been afebrile, heart rate in the 70s, blood pressure 116/77, pulse ox 95% on room air. Her blood glucose running between 236 and 358. Patient will be continued on IV Solu-Medrol and Lantus will be increased to 30 units. Patient will be transferred to [facility] floor. 03/12: Patient is seen today on the [facility] floor. Cardiology has signed off. Patient continues to have wheezing and cough that is nonproductive. He has been afebrile, heart rate in the 60s and 70s, blood pressure 118/72 and pulse ox 92% on room air. Capillary blood glucose are improved running between 125 and 247. Pulmonary medicine has transition patient to oral prednisone. He is continued on nebulizer treatments, Robitussin and Symbicort. Patient is also continued on his home medication regime. Anticipate discharge home tomorrow. 03/13: Patient is seen today on the [facility] floor. He is having increased shortness of breath with wheezing and also diarrhea. Blood work came back surprisingly with a creatinine of 3, BUN 78, hemoglobin was 12.9 and WBC 12.2. Patient will be started on IV fluids 0.9 normal saline at 100 mL per hour, will discontinue metformin, Lasix and hydrochlorothiazide. Blood pressure is been stable 114/83, heart rate in the 50s and 60s. Echocardiogram reveals EF of 60%. Possible amyloidosis, moderate concentric left ventricular hypertrophy, [id number] tricuspid regurgitation, RVSP 34.8 03/16: CT of the chest was ordered on Wednesday which revealed cardiomegaly. Atherosclerotic vascular disease. Nonspecific mediastinal lymph nodes. Lymph nodes slightly increased compared to exam. Clearing of the right pleural effusion compared to old exam minimal subsegmental atelectasis right lung base. No suspicious pulmonary mass. He has been followed by pulmonary medicine and maintained on Symbicort, DuoNeb treatments and oral prednisone. Patient continues to have significant wheezing despite appropriate treatment. Patient has been afebrile, heart rate in the 70s, blood pressure 186/91 and pulse ox 93% on room air. Blood pressure readings have been elevated over the weekend. Noted that he was taken off Lasix and hydrochlorothiazide since Wednesday and also losartan was discontinued. Patient has been seen for by nephrology for acute kidney injury and recommendations are to continue to hold diuretics and losartan, hydralazine was increased. Repeat blood work reveals WBC 11.9, hemoglobin 13.2. Potassium 4.1, sodium 140. BUN 44, creatinine 1.6. Blood sugars have been running between 93 and 230. Repeat chest x-ray from yesterday reveals no active cardiopulmonary disease. No change compared to old exam. REVIEW OF SYSTEMS: Constitutional: No documented fever, no chills, no night sweats. No weight change. positive for weakness,positive for fatigue or lethargy. No daytime sleepiness. HEENT: No headache. No blurred vision or double vision, no loss of vision. No loss of Hearing, no ringing in the ears, no dizziness. No nasal drainage or congestion. No epistaxis. No sore throat. Lungs: positive for shortness of breath, positive for cough, denies sputum production. positive for wheezing. Reports dyspnea with activity. Cardiovascular: pleuritic chest pain, no lower extremity edema. No palpitations. No paroxysmal nocturnal dyspnea. No orthopnea. No lighthea dedness or dizziness. No syncopal episodes. Abdominal: Reports abdominal pain. No nausea, vomiting. Reports diarrhea. No constipation. No bloody or tarry stools reports loss of appetite. Genitourinary: No dysuria, increased frequency, urgency. No urinary retention. Musculoskeletal: No myalgias. No muscle weakness, no gait dysfunction, no frequent falls. No back pain. No neck pain. Integumentary: No wounds, no lesions. No rash or pruritus. No unusual bruising. No change in hair or nails. Neurologic: No aphasia. No facial droop. No change in mentation. No head injury. No headache. No paralysis. No paresthesia. Psychiatric: No depression. No anxiety. No mood swings. Endocrine: Noted abnormal blood sugars. PHYSICAL EXAMINATION: General: 56-year-old male laying down in bed in no respiratory distress. HEENT: Head is atraumatic, normocephalic, pupils were equal round reactive to light, conjunctivae were pale, mucous membranes of the mouth are somewhat dry. Neck: Supple, no JVP. Chest: Decreased breath sounds at the bases, few rhonchi, positive for expiratory wheezes, no chest wall tenderness, no intercostal retractions. Heart: First heart sound is normal, second heart sounds normal, irregularly irregular, there is systolic ejection murmur 2/6 located in the left sternal border. Abdomen: Soft, nontender, nondistended, positive bowel sounds. Extremities: There is no edema no calf tenderness DP +1 bilaterally. Neurologic examination: Patient is awake alert and oriented X 3. ASSESSMENT AND PLAN: 1. Acute hypoxemic respiratory failure due to acute asthma exacerbation complicated by RSV infection . Continue oxygen support, I oral prednisone, continue DuoNeb 3 mg nebulization 4 times every day, Symbicort twice daily contact/droplet precautions, pulmonary consultation appreciated. 2. Atrial fibrillation with rapid ventricular response. Restart the patient back on his metoprolol 100 mg orally twice every day, continue to monitor the patient very closely, restart the patient back on Eliquis 2.5 mg orally twice every day. Cardiology consultation appreciated. 3. Accelerated hypertension. Patient has been off his blood pressure medication for the last few days. Losartan and diuretics on hold due to acute kidney injury, continue patient on metoprolol 100 mg orally twice every day, continue hydralazine increased to 75 mg orally 3 times daily, continue clonidine 0.1 mg orally twice every day monitor the patient blood pressure very closely. 4. Acute kidney injury. Metformin, Lasix and hydrochlorothiazide discontinued. Monitor daily renal function and electrolytes. Nephrology consult appreciated. 5. Diabetes mellitus type 2, uncontrolled with hyperglycemia secondary to noncompliance and use of steroids. Continue Levemir to 30 units at bedtime along with a sliding scale insulin monitor the patient hemoglobin A1c, NovoLog 6 units with meals added. Hold metformin 6. Diarrhea. Stable 7. Coronary artery disease status post CABG 6 as well as PCI in the past. Continue patient on Plavix 75 mg once every day, metoprolol 100 mg orally twice every day, continue patient on atorvastatin 80 mg orally once every day, contin ues Zetia 10 mg orally once every day. 8. Hyperlipidemia. Continue patient on atorvastatin 80 mg once every day, continue Zetia 10 mg orally once every day, monitor lipid panel, keep LDL 55-70. 9. Diabetic polyneuropathy. Continue patient on gabapentin 100 mg orally 3 times every day. 10. Obstructive sleep apnea. Patient does have a CPAP at home. 11. Chronic low back pain. Continue gabapentin 900 mg orally 3 times every day. 12. Pleuritic chest pain. Start the patient on morphine 2 mg IV push every 4 hours as needed. 13. DVT prophylaxis. Continue Eliquis 2.5 mg orally twice every day. 14. GI prophylaxis. Start the patient on Protonix 40 mg orally once every day. Patient's full code. Discharge plan: Home most likely on Wednesday Impression and plan of care have been directed as dictated by the signing physician. Dipika Mendez nurse practitioner acting as scribe for signing physician. Objective - Vital Signs Vital signs: Vital Signs Temp 97.6 F 03/16/22 07:05 Pulse 80 03/16/22 11:32 Resp 19 03/16/22 08:31 BP 186/91 03/16/22 07:05 Pulse Ox 96 03/16/22 07:37 FiO2 21 03/16/22 07:37 Intake & Output 03/15/22 03/16/22 03/16/22 18:59 06:59 18:59 Intake Total 1080 Balance 1080 Intake: Oral 1080 Other: # Voids 3 1 1 # Bowel Movements 2 - Labs CBC & Chem 7: 03/16/22 04:49 03/16/22 04:49 Labs: Abnormal Lab Results - Last 24 Hours (Table) 03/15/22 03/15/22 03/16/22 Range/Units 16:52 20:22 04:49 WBC 11.99 H (4.50-10.00) X 10*3/uL Immature Gran # 0.08 H (0.00-0.04) X 10*3/uL Neutrophils # 9.64 H (1.80-7.70) X 10*3/uL Anion Gap (10.00-18.00) mmol/L BUN (9.0-27.0) mg/dL Creatinine (0.6-1.5) mg/dL Est GFR (CKD-EPI)AfAm (60.0-200.0) Est GFR (CKD-EPI)NonAf (60.0-200.0) BUN/Creatinine Ratio (12.00-20.00) Ratio Glucose (70-110) mg/dL POC Glucose (mg/dL) 203 H 230 H (70-110) mg/dL Calcium (8.7-10.3) mg/dL 03/16/22 03/16/22 Range/Units 04:49 06:10 WBC (4.50-10.00) X 10*3/uL Immature Gran # (0.00-0.04) X 10*3/uL Neutrophils # (1.80-7.70) X 10*3/uL Anion Gap 9.50 L (10.00-18.00) mmol/L BUN 44.7 H (9.0-27.0) mg/dL Creatinine 1.6 H (0.6-1.5) mg/dL Est GFR (CKD-EPI)AfAm 54.2 L (60.0-200.0) Est GFR (CKD-EPI)NonAf 46.8 L (60.0-200.0) BUN/Creatinine Ratio 27.94 H (12.00-20.00) Ratio Glucose 176 H (70-110) mg/dL POC Glucose (mg/dL) 140 H (70-110) mg/dL Calcium 8.4 L (8.7-10.3) mg/dL
[2022-03-16 15:56] LABS: Appearance,Urine Clear (Clear); Bilirubin,Urine Negative (Negative); Blood,Urine Negative (Negative); Color,Urine Yellow; Glucose,Urine (UA) 1+ (Negative); Hyaline Casts,Urine 3 /lpf (0-2); Ketones,Urine Negative (Negative); Leukocyte Esterase,Urine Negative (Negative); Mucus,Urine Rare /hpf; Nitrite,Urine Negative (Negative); PH, Urine 5.5 (5.0-8.0); Protein,Urine 1+ (Negative); RBC,Urine <1 /hpf (0-5); Specific Gravity,Urine 1.016 (1.001-1.035); Urobilinogen,Urine <2.0 mg/dL (<2.0); WBC,Urine 2 /hpf (0-5)
[2022-03-16 16:23] LABS: Glucose,Whole Blood 251 mg/dL (70-110)
[2022-03-16 20:39] LABS: Glucose,Whole Blood 248 mg/dL (70-110)
[2022-03-16] MEDS: ATORVASTATIN 80 MG TAB PO SCH (21:10)
[2022-03-16] MEDS: EZETIMIBE 10 MG TAB PO SCH (21:11)
[2022-03-16] MEDS: INSULIN DETEMIR (LEVEMIR) 100 UNIT/ML SYR SQ SCH (21:12)
[2022-03-17] MEDS: INSULIN ASPART (NovoLOG) 100 UNIT/ML VIAL SQ SCH ×7 (06:29→22:04)
[2022-03-17] MEDS: PANTOPRAZOLE 40 MG TABLET PO SCH (06:32)
[2022-03-17 07:04] LABS: Glucose,Whole Blood 134 mg/dL (70-110)
[2022-03-17] MEDS: SYMBICORT 160-4.5 MCG INHALER INHALATION SCH ×2 (08:17→19:20)
[2022-03-17] MEDS: CLOPIDOGREL 75 MG TAB PO SCH (08:40)
[2022-03-17] MEDS: APIXABAN 2.5 MG TABLET PO SCH ×2 (08:42→22:03)
[2022-03-17] MEDS: hydrALAZINE HCL 25 MG TAB PO SCH (08:42)
[2022-03-17] MEDS: GABAPENTIN 300 MG CAP PO SCH ×2 (08:42→22:03)
[2022-03-17] MEDS: METOPROLOL TARTRATE 50 MG TAB PO SCH ×2 (08:42→22:03)
[2022-03-17] MEDS: predniSONE 10 MG TAB PO SCH (08:43)
[2022-03-17] MEDS: cloNIDine HCL 0.1 MG TAB PO SCH ×2 (08:43→22:03)
[2022-03-17] MEDS: MORPHINE SULFATE 2 MG/ML SYRINGE IVP PRN ×3 (08:43→22:05)
--- NOTE | 2022-03-17 09:17 | CDI ---
Documentation Clarification Form Date: 03/17/2022 9:03:40 AM From: Polina Diez CCS, CCDS Admit Date: 03/09/2022 3:55:00 PM Patient Name: Lakhwinder Hirsch Visit Number: [id number] Discharge Date: ATTENTION: The Clinical Documentation Specialists (CDI) and [facility] Coding Staff appreciate your assistance in clarifying documentation. Please respond to the clarification below the line at the bottom and electronically sign. The CDI & [facility] Coding staff will review the response and follow-up if needed. Please note: Queries are made part of the Legal Health Record. If you have any questions, please contact the author of this message via ITS. Dr. Kelly Montesinos: RSV Pneumonia/Bronchitis is documented in the 03/14 Nephrology Consult and in subsequent Nephrology Progress notes which may lack sufficient clinical evidence/support in the medical record. Additional clarification is requested. History/Risk Factors per the 03/09 H/P: CAD post CABG, Hypertension & Hypertensive Cardiovascular Disease, Paroxysmal Atrial Fibrillation, DM II, Hyperlipidemia, GERHARD, Ischemic Cardiomyopathy, Diabetic Polyneuropathy, Postherpetic Neuralgia, Asthma, Chronic low back pain. Clinical Indicators: Presented to the ED on 03/09 with four day history of difficulty breathing, SOB, occasional sharp pain with coughing, some sputum, wheezing. Admit with RSV (Acute Bronchiolitis due to RSV), Anemia, Hypertensive Urgency and Atrial Fibrillation. 03/09 VS: T 99.8, P 98, R 20, 22, 23; BP 205/116, 185/123, 194/110; PO 96 RA, BMI: 25.8 03/09 LAB: WBC 4.3, Neutrophils 3.2, Lymphocytes 0.3; CO2 29, Troponin 0.050, 0.048; Procalcitonin not done. 03/09 CXR: No acute process. Correlate for Cardiomegaly and COPD. Treatment 03/09: O2 2Lnc (standby), INH Duoneb 3 ml x1, Duoneb q4H/prn, IV Apresoline 20 mg x1, Nitro 0.4 mg sl q5M/prn, IV Toradol 15 mg x1, IV Morphine 2 mg q4H/prn, IV Solumedrol 40 mg q6H. 03/10 Pulmonary Consult for Dyspnea & cough. Assessment: Acute bronchitis with bronchospasm and bronchial inflammation secondary to RSV infection, Remote history of mild asthma. Please clarify if Pneumonia with RSV is a valid diagnosis? [ X] Yes, Pneumonia with RSV is present as evidence by (additional clinical support): [ ] No, Pneumonia with RSV is ruled out [ ] Other (please specify diagnosis) [ ] Unable to determine (Template Last Revised: April 2020) MTDD
--- NOTE | 2022-03-17 09:32 | P.PN ---
Subjective Progress Note Date: 03/17/22 Pulmonary consult dated 03/10/2022. 56-year-old male who presented to the emergency department on March 09 complaining of cough, chest congestion, and shortness of breath. The patient comes in with a two to four-day history of increasing shortness of breath, cough, chest congestion, and minimal phlegm production. He denied any fever or chills. He denies any chest pain or chest discomfort. The patient was evaluated in the emergency department, and admitted to the hospital. His chest x-ray was normal. He did test positive for respiratory syncytial virus. The patient denies a history of any significant lung disease. The patient is a lifelong nonsmoker. Currently, he's on room air. He's not receiving any IV fluids. White count 8.6, hemoglobin 13.1, hematocrit 38.1, and platelet count 237,000. Sodium 137, potassium 3.2, chlorides 98, CO2 29, BUN 15, creatinine 0.94. He did test positive for RSV. He tested negative for influenza, and coronavirus infection. Chest x-ray was reported as being normal. Progress note dated 03/11/2022. 56-year-old male seen yesterday in consultation. Please see the note above. The patient came in with cough, shortness of breath, and chest congestion. He was found to be positive for RSV. Currently, the patient is on room air. He's not receiving any IV fluids. As mentioned yesterday, I thought the patient could be discharged home on some prednisone. Clinically he is doing much better. No new labs today. Progress note dated 03/12/2022. 56-year-old male seen in consultation 2 days ago. He was admitted with a diagnosis of RSV infection, with reactive bronchospasm and bronchial inflammation. The patient's currently on room air. The patient is not receiving any IV fluids. In our opinion, the patient could be discharged home. The patient's clinically very stable. No new lab data today. Glucose was 247. Progress note dated 03/14/2022. 56-year-old male again seen in room 477. He's on room air. The patient is receiving saline at 100 mL an hour. From the pulmonary standpoint, although the patient is still a bit short of breath and wheezing, we thought the patient could be discharged home. Labs today include a white count of 11, hemoglobin 13.3, hematocrit 40.7, and a normal platelet count. Sodium 138, potassium 3.6, chlorides 103, CO2 23, BUN 67, and creatinine 2.4. Calcium 8.6. CT is reviewed, and other than some cardiomegaly, and ASHD, the CT is essentially unremarkable. Progress note dated 03/15/2022. 56-year-old male again seen in room 477. The patient continues on room air. The patient is receiving saline at 100 mL an hour. Clinically, he appears stable. From the pulmonary standpoint, the patient does admit to some occasional wheezing, and a bit of shortness of breath, particularly on exertion. The patient has never required oxygen during his hospitalization. White count 12.55, hemoglobin 12.7, hematocrit 39.2, and platelet count 200,000. Sodium 142, potassium 3.2, chlorides 107, CO2 25, anion gap 10, BUN 40, and creatinine 1.9. With fluid administration, the patient's creatinine has gone from 3, down to 2.4, down to 1.9. The creatinine on March [address] from J anuary 20, showed evidence of cardiomegaly, and reactive adenopathy. The pleural effusion is improved, and there is some basilar atelectasis. No suspicious pulmonary mass is noted. 03/16/2022, the patient remains on prednisone which is a part of the burst taper 30 mg by mouth daily. Still bronchospastic and wheezy. Is currently on room air oxygen. Still having a lot of cough, wheezing congestion. He is post RSV infection and he also has multiple medical comorbidities including asthma which was mildly demented at baseline in addition to diabetes mellitus and coronary artery disease. CAT scan of the chest was unremarkable. Blood work from today shows a WBC count of 11.7 with a hemoglobin 13.2 and a platelet count of 2:15. Sodium is at 140 with a BUN of 44 and a creatinine of 1.6. Noted the patient and acute kidney injury and the creatinine peaked at 3.0 and currently is down to 1.6. Blood sugar currently is at 140. Tolerating diet. He needs an incentive spirometer. IV fluids are currently of KVO. Chest x-ray from yesterday showed no acute abnormalities. 03/17/2022, I would say the patient is slightly improved compared to yesterday less bronchospastic and wheezy. Is currently on room air oxygen. He remains on prednisone at a dose of 30 mg as part of the burst taper. No new complaints. He remains on Symbicort. He remains on DuoNeb nebulized treatments around-the- clock. He remains on Levemir insulin 30 units and NovoLog scale coverage. Blood sugars are adequate for now. In terms of labs, the labs from yesterday was noted and there are no new labs available from today. UA was also repeated yesterday and essentially showing +1 protein, no other major abnormalities noted. Tolerating his diet. No altered mentation. No chest pain. Remains on anticoagulation. Objective - Vital Signs Vital signs: Vital Signs Temp 97.5 F L 03/17/22 07:31 Pulse 64 03/17/22 07:31 Resp 18 03/17/22 07:31 BP 174/80 03/17/22 07:31 Pulse Ox 98 03/17/22 07:31 FiO2 21 03/16/22 07:37 Intake & Output 03/16/22 03/17/22 03/17/22 18:59 06:59 18:59 Intake Total 1080 Balance 1080 Intake: Oral 1080 Other: # Voids 3 3 - Exam No acute distress, oriented 3. No respiratory distress, audible wheezing, use of accessory muscles, or conversational dyspnea. HEENT examination is grossly unremarkable. Neck supple. Full range of motion. No adenopathy thyromegaly or neck vein distention. Cardiovascular examination reveals regular rhythm rate. S1-S2 normal. No S3 or S4. No discernible murmur noted. Heart sounds are distant. Heart rate 54 bpm. Lungs reveal mild bilateral expiratory wheezes. Breath sounds equal. Scattered rhonchi. No crackles. Breath sounds are equal bilaterally. Room air saturati ons are 97 %. Abdomen soft bowel sounds are heard. No masses or tenderness. Extremities are intact. No cyanosis or edema. Fingertip clubbing is noted. Skin is without rash or lesion. Neurologic examination is brief but nonfocal. - Labs CBC & Chem 7: 03/16/22 04:49 03/16/22 04:49 Labs: Abnormal Lab Results - Last 24 Hours (Table) 01/23/23 01/23/23 01/23/23 Range/Units 11:24 15:42 16:21 POC Glucose (mg/dL) 157 H 251 H (70-110) mg/dL Urine Protein 1+ H (Negative) Urine Glucose (UA) 1+ H (Negative) Hyaline Casts 3 H (0-2) /lpf Urine Mucus Rare H (None) /hpf 03/16/22 03/17/22 Range/Units 20:38 06:04 POC Glucose (mg/dL) 248 H 134 H (70-110) mg/dL Urine Protein (Negative) Urine Glucose (UA) (Negative) Hyaline Casts (0-2) /lpf Urine Mucus (None) /hpf Assessment and Plan Plan: Acute bronchitis with bronchospasm and bronchial inflammation, secondary to RSV infection, improving slowly currently on room air oxygen. Chest x-rays the of any pulmonary infiltrates. Bronchial asthma with an acute exacerbation secondary to an RSV infection Acute kidney injury, likely related to dehydration, improved. Creatinine continues to improve History of CAD, with previous bypass grafting, 6 vessel. Previous cardiac catheterizations with stent placement. History of hypertension. History of hyperlipidemia. Diabetes mellitus. History of deep venous thrombosis. History of myocardial infarction. History of obstructive sleep apnea syndrome, maintained on CPAP. History of cellulitis. Diabetic neuropathy. History of spinal fusion. Left forearm compartment syndrome, with previous fasciotomy. Plan: Clinically improving Prednisone burst taper currently on 30 mg Patient was made aware that this may take a longer tempted recovers. The patient is improving. I think he should be able to go home either today or within next 24 hours on a prednisone burst taper to complete his treatment on outpatient basis. I'm going to discuss this also with a medical team.
[2022-03-17 10:28] LABS: African American GFR (CKD) 54.2 (60.0-200.0); Anion Gap 9.7 mmol/L (10.00-18.00); BUN/Creat Ratio 21.38 Ratio (12.00-20.00); Blood Urea Nitrogen 34.2 mg/dL (9.0-27.0); Calcium 8.6 mg/dL (8.7-10.3); Carbon Dioxide 27.3 mmol/L (20.0-27.5); Magnesium 1.8 mg/dL (1.5-2.4); Non-African American GFR(CKD) 46.8 (60.0-200.0)
[2022-03-17] MEDS ORDERED: LACTULOSE 20 GM/30 ML CUP PO PRN (10:44)
--- NOTE | 2022-03-17 10:44 | P.PN ---
Subjective Patient is seen in follow-up for acute kidney injury. Renal function stable. Has been voiding. Off IV fluids. Oral intake is fair. Currently on room air. Blood pressure high. Admits to constipation. Vital signs are stable. General: No acute distress. HEENT: Head exam is unremarkable. LUNGS: Breath sounds decreased. HEART: Rate and Rhythm are regular. ABDOMEN: Soft, no distention. EXTREMITITES: No edema. Objective - Vital Signs Vital signs: Vital Signs Temp 97.5 F L 03/17/22 07:31 Pulse 64 03/17/22 07:31 Resp 18 03/17/22 07:31 BP 174/80 03/17/22 07:31 Pulse Ox 98 03/17/22 07:31 FiO2 21 03/16/22 07:37 Intake & Output 03/16/22 03/17/22 03/17/22 18:59 06:59 18:59 Intake Total 1080 Balance 1080 Intake: Oral 1080 Other: # Voids 3 3 - Labs CBC & Chem 7: 03/16/22 04:49 03/17/22 05:42 Labs: Abnormal Lab Results - Last 24 Hours (Table) 03/16/22 03/16/22 03/16/22 Range/Units 11:24 15:42 16:21 Anion Gap (10.00-18.00) mmol/L BUN (9.0-27.0) mg/dL Creatinine (0.6-1.5) mg/dL Est GFR (CKD-EPI)AfAm (60.0-200.0) Est GFR (CKD-EPI)NonAf (60.0-200.0) BUN/Creatinine Ratio (12.00-20.00) Ratio Glucose (70-110) mg/dL POC Glucose (mg/dL) 157 H 251 H (70-110) mg/dL Calcium (8.7-10.3) mg/dL Urine Protein 1+ H (Negative) Urine Glucose (UA) 1+ H (Negative) Hyaline Casts 3 H (0-2) /lpf Urine Mucus Rare H (None) /hpf 03/16/22 03/17/22 03/17/22 Range/Units 20:38 05:42 06:04 Anion Gap 9.70 L (10.00-18.00) mmol/L BUN 34.2 H (9.0-27.0) mg/dL Creatinine 1.6 H (0.6-1.5) mg/dL Est GFR (CKD-EPI)AfAm 54.2 L (60.0-200.0) Est GFR (CKD-EPI)NonAf 46.8 L (60.0-200.0) BUN/Creatinine Ratio 21.38 H (12.00-20.00) Ratio Glucose 150 H (70-110) mg/dL POC Glucose (mg/dL) 248 H 134 H (70-110) mg/dL Calcium 8.6 L (8.7-10.3) mg/dL Urine Protein (Negative) Urine Glucose (UA) (Negative) Hyaline Casts (0-2) /lpf Urine Mucus (None) /hpf Assessment and Plan Plan: Assessment: 1. Acute kidney injury mostly prerenal improving with IV hydration. Creatinine was 3 on admission and is stable at 1.6 today. Baseline creatinine near 1. No hydronephrosis noted on ultrasound. 2. RSV pneumonia. 3. Hypokalemia from diuresis. Replaced. Better. 4. Benign hypertension. Exacerbated by steroids. 5. Diabetes mellitus. 6. Mild to moderate tricuspid regurgitation. Plan: Encourage oral intake. Increase hydralazine to 100 mg 3 times daily. Maintain when necessary hydralazine. Add amlodipine 5 mg once daily. Continue to hold diuretics and losartan. Avoid nephrotoxins. Continue to monitor renal function and urine output. Add lactulose as needed for constipation.
[2022-03-17] MEDS ORDERED: amLODIPine 5 MG TAB PO SCH (11:00)
[2022-03-17 11:02] LABS: Glucose,Whole Blood 124 mg/dL (70-110)
[2022-03-17] MEDS: IPRATROPIUM-ALBUTEROL 3 ML NEB INHALATION PRN ×2 (12:13→19:21)
[2022-03-17 16:32] LABS: Glucose,Whole Blood 180 mg/dL (70-110)
[2022-03-17] MEDS: hydrALAZINE HCL 50 MG TAB PO SCH ×2 (16:34→22:04)
[2022-03-17 20:20] LABS: Glucose,Whole Blood 233 mg/dL (70-110)
[2022-03-17] MEDS: EZETIMIBE 10 MG TAB PO SCH (22:03)
[2022-03-17] MEDS: ATORVASTATIN 80 MG TAB PO SCH (22:03)
[2022-03-17] MEDS: INSULIN DETEMIR (LEVEMIR) 100 UNIT/ML SYR SQ SCH (22:04)
[2022-03-18] MEDS: MORPHINE SULFATE 2 MG/ML SYRINGE IVP PRN ×5 (04:24→22:31)
[2022-03-18 06:13] LABS: Glucose,Whole Blood 151 mg/dL (70-110)
[2022-03-18] MEDS: INSULIN ASPART (NovoLOG) 100 UNIT/ML VIAL SQ SCH ×7 (06:50→21:47)
[2022-03-18] MEDS: PANTOPRAZOLE 40 MG TABLET PO SCH (06:51)
[2022-03-18] MEDS: IPRATROPIUM-ALBUTEROL 3 ML NEB INHALATION PRN ×4 (07:19→21:15)
[2022-03-18] MEDS: SYMBICORT 160-4.5 MCG INHALER INHALATION SCH ×2 (07:22→21:15)
[2022-03-18] MEDS: predniSONE 10 MG TAB PO SCH (08:48)
[2022-03-18] MEDS: amLODIPine 10 MG TAB PO SCH (08:48)
[2022-03-18] MEDS: GABAPENTIN 300 MG CAP PO SCH ×2 (08:48→21:47)
[2022-03-18] MEDS: APIXABAN 2.5 MG TABLET PO SCH ×2 (08:49→21:47)
[2022-03-18] MEDS: CLOPIDOGREL 75 MG TAB PO SCH (08:49)
[2022-03-18] MEDS: hydrALAZINE HCL 50 MG TAB PO SCH ×3 (08:49→21:47)
[2022-03-18] MEDS: cloNIDine HCL 0.1 MG TAB PO SCH ×2 (08:49→21:47)
[2022-03-18] MEDS: METOPROLOL TARTRATE 50 MG TAB PO SCH ×2 (08:49→21:47)
[2022-03-18 09:03] LABS: African American GFR (CKD) 59 (>60 ml/min/1.73 sqM); Anion Gap 5 mmol/L; Blood Urea Nitrogen 37 mg/dL (9-20); Calcium 8.1 mg/dL (8.4-10.2); Carbon Dioxide 23 mmol/L (22-30); Chloride 110 mmol/L (98-107); Glucose 152 mg/dL (74-99); Non-African American GFR(CKD) 51 (>60 ml/min/1.73 sqM); Potassium 3.9 mmol/L (3.5-5.1); Sodium 138 mmol/L (137-145)
--- NOTE | 2022-03-18 09:58 | P.PN ---
Subjective Progress Note Date: 03/17/22 HISTORY OF PRESENT ILLNESS: This is a 56-year-old male patient of rosita and Dr. Ga with past medical history of coronary artery disease status post 6 vessel CABG 2006 with MAE to LAD, saphenous venous graft to the PDA, saphenous venous graft to the obtuse marginal one, radial artery to the obtuse marginal branch 2 and saphenous venous graft to the obtuse marginal 3 followed by heart catheterization with PCI and stent of the saphenous venous graft to the RCA in 2015 at which time he pre sented with non-ST elevated myocardial infarction. Most recent cardiac catheterization was performed in March of 2019 which revealed severe triple- vessel coronary artery disease with a patent ramus intermediate, patent SVG to the OM, patent MAE to the LAD, and occluded saphenous vein graft to the RCA which is chronic from before. Medical therapy was advised at that time. History of hypertension hypertensive cardiovascular disease with left ventricular hypertrophy, hyperlipidemia, ischemic cardiomyopathy, paroxysmal atrial fibrillation currently on Eliquis , diabetes mellitus type 2 with diabetic polyneuropathy, hyperlipidemia, asthma, obstructive sleep apnea on CPAP, chronic low back pain, DVT in the past, patient has been following with me on a regular basis, he developed to have a significant shortness breath associated with increased coughing and pleuritic chest pain ended up coming to the emergency department at [facility] today because of increased chest pain associa raquel with increased shortness breath, he was found to be positive for RSV, and he was in atrial fibrillation with rapid ventricular response, patient was started on Solu-Medrol 40 mg IV push every 6 hours, he was also placed on DuoNeb 3 and an immunization 4 times every day as well as oxygen support, he was admitted to the hospital with cardiology and pulmonary evaluation, patient also wa antonio caldwell and he stated that he has not been taking his blood pressure medications over the last few days, because she was not feeling well. 03/10: Patient is seen today on the cardiac stepdown unit. Patient has been resumed on his home antihypertensive medications and blood pressure is well controlled. He has been seen by cardiology with plan to continue current medications and obtain echocardiogram. Patient is also been seen by pulmonary medicine and maintained on Pulmicort, DuoNeb treatments and IV Solu-Medrol. Patient continues to have a cough with clear sputum production. Breathing stat us is stable. We'll plan to decrease frequency of Solu-Medrol to every 12 hours. 03/11: Patient continues to complain of cough that is nonproductive with wheezing. Patient is been afebrile, heart rate in the 70s, blood pressure 116/77, pulse ox 95% on room air. Her blood glucose running between 236 and 358. Patient will be continued on IV Solu-Medrol and Lantus will be increased to 30 units. Patient will be transferred to [facility] floor. 03/12: Patient is seen today on the [facility] floor. Cardiology has signed off. Patient continues to have wheezing and cough that is nonproductive. He has been afebrile, heart rate in the 60s and 70s, blood pressure 118/72 and pulse ox 92% on room air. Capillary blood glucose are improved running between 125 and 247. Pulmonary medicine has transition patient to oral prednisone. He is continued on nebulizer treatments, Robitussin and Symbicort. Patient is also continued on his home medication regime. Anticipate discharge home tomorrow. 03/13: Patient is seen today on the [facility] floor. He is having increased shortness of breath with wheezing and also diarrhea. Blood work came back surprisingly with a creatinine of 3, BUN 78, hemoglobin was 12.9 and WBC 12.2. Patient will be started on IV fluids 0.9 normal saline at 100 mL per hour, will discontinue metformin, Lasix and hydrochlorothiazide. Blood pressure is been stable 114/83, heart rate in the 50s and 60s. Echocardiogram reveals EF of 60%. Possible amyloidosis, moderate concentric left ventricular hypertrophy, [id number] tricuspid regurgitation, RVSP 34.8 03/16: CT of the chest was ordered on Wednesday which revealed cardiomegaly. Atherosclerotic vascular disease. Nonspecific mediastinal lymph nodes. Lymph nodes slightly increased compared to exam. Clearing of the right pleural effusion compared to old exam minimal subsegmental atelectasis right lung base. No suspicious pulmonary mass. He has been followed by pulmonary medicine and maintained on Symbicort, DuoNeb treatments and oral prednisone. Patient continues to have significant wheezing despite appropriate treatment. Patient has been afebrile, heart rate in the 70s, blood pressure 186/91 and pulse ox 93% on room air. Blood pressure readings have been elevated over the weekend. Noted that he was taken off Lasix and hydrochlorothiazide since Wednesday and also losartan was discontinued. Patient has been seen for by nephrology for acute kidney injury and recommendations are to continue to hold diuretics and losartan, hydralazine was increased. Repeat blood work reveals WBC 11.9, hemoglobin 13.2. Potassium 4.1, sodium 140. BUN 44, creatinine 1.6. Blood sugars have been running between 93 and 230. Repeat chest x-ray from yesterday reveals no active cardiopulmonary disease. No change compared to old exam. 03/17 Patient's respiratory status is slowly improving. He is on room air. He is on oral prednisone and nebulizer treatments [id number]. He's been followed by pulmonary medicine as well as nephrology.repeat blood work reveals BUN 34 creatinine 1.6. Plan will be to monitor the patient another 24 hours and plan for discharge tomorrow. REVIEW OF SYSTEMS: Constitutional: No documented fever, no chills, no night sweats. No weight change. positive for weakness,positive for fatigue or lethargy. No daytime sleepiness. HEENT: No headache. No blurred vision or double vision, no loss of vision. No loss of Hearing, no ringing in the ears, no dizziness. No nasal drainage or congestion. No epistaxis. No sore throat. Lungs: positive for shortness of breath, positive for cough, denies sputum production. positive for wheezing. Reports dyspnea with activity. Cardiovascular: pleuritic chest pain, no lower extremity edema. No palpitations. No paroxysmal nocturnal dyspnea. No orthopnea. No lightheadedness or dizziness. No syncopal episodes. Abdominal: Reports abdominal pain. No nausea, vomiting. Reports diarrhea. No constipation. No bloody or tarry stools reports loss of appetite. Genitourinary: No dysuria, increased frequency, urgency. No urinary retention. Musculoskeletal: No myalgias. No muscle weakness, no gait dysfunction, no frequent falls. No back pain. No neck pain. Integumentary: No wounds, no lesions. No rash or pruritus. No unusual bruising. No change in hair or nails. Neurologic: No aphasia. No facial droop. No change in mentation. No head injury. No headache. No paralysis. No paresthesia. Psychiatric: No depression. No anxiety. No mood swings. Endocrine: Noted abnormal blood sugars. PHYSICAL EXAMINATION: General: 56-year-old male laying down in bed in no respiratory distress. HEENT: Head is atraumatic, normocephalic, pupils were equal round reactive to light, conjunctivae were pale, mucous membranes of the mouth are somewhat dry. Neck: Supple, no JVP. Chest: Decreased breath sounds at the bases, few rhonchi, positive for expiratory wheezes, no chest wall tenderness, no intercostal retractions. Heart: First heart sound is normal, second heart sounds normal, irregularly irregular, there is systolic ejection murmur 2/6 located in the left sternal border. Abdomen: Soft, nontender, nondistended, positive bowel sounds. Extremities: There is no edema no calf tenderness DP +1 bilaterally. Neurologic examination: Patient is awake alert and oriented X 3. ASSESSMENT AND PLAN: 1. Acute hypoxemic respiratory failure due to acute asthma exacerbation complicated by RSV infection . Continue oxygen support, I oral prednisone, continue DuoNeb 3 mg nebulization 4 times every day, Symbicort twice daily contact/droplet precautions, pulmonary consultation appreciated. 2. Atrial fibrillation with rapid ventricular response. Restart the patient back on his metoprolol 100 mg orally twice every day, continue to monitor the patient very closely, restart the patient back on Eliquis 2.5 mg orally twice every day. Cardiology consultation appreciatedin cardiology has signed off. 3. Accelerated hypertension. Patient has been off his blood pressure medication for the last few days. Losartan and diuretics on hold due to acute kidney injury, continue patient on metoprolol 100 mg orally twice every day, continue hydralazine increased to 100 mg orally 3 times daily, continue clonidine 0.1 mg orally twice every day monitor the patient blood pressure very closely.also amlodipine 5 mg daily was added. 4. Acute kidney injury. Metformin, Lasix and hydrochlorothiazide discontinued. Monitor daily renal function and electrolytes. Nephrology consult appreciated. 5. Diabetes mellitus type 2, uncontrolled with hyperglycemia secondary to noncompliance and use of steroids. Continue Levemir to 30 units at bedtime along with a sliding scale insulin monitor the patient hemoglobin A1c, NovoLog 6 units with meals added. Hold metformin 6. Diarrhea. Stable 7. Coronary artery disease status post CABG 6 as well as PCI in the past. Continue patient on Plavix 75 mg once every day, metoprolol 100 mg orally twice every day, continue patient on atorvastatin 80 mg orally once every day, continues Zetia 10 mg orally once every day. 8. Hyperlipidemia. Continue patient on atorvastatin 80 mg once every day, continue Zetia 10 mg orally once every day, monitor lipid panel, keep LDL 55-70. 9. Diabetic polyneuropathy. Continue patient on gabapentin 100 mg orally 3 times every day. 10. Obstructive sleep apnea. Patient does have a CPAP at home. 11. Chronic low back pain. Continue gabapentin 900 mg orally 3 times every day. 12. Pleuritic chest pain. Start the patient on morphine 2 mg IV push every 4 hours as needed. 13. DVT prophylaxis. Continue Eliquis 2.5 mg orally twice every day. 14. GI prophylaxis. continue the patient on Protonix 40 mg orally once every day. Patient's full code. Discharge plan: Home most likely on Wednesday Impression and plan of care have been directed as dictated by the signing physician. Dipika Mendez nurse practitioner acting as scribe for signing physician. Objective - Vital Signs Vital signs: Vital Signs Temp 97.5 F L 03/17/22 07:31 Pulse 64 03/17/22 07:31 Resp 18 03/17/22 07:31 BP 174/80 03/17/22 07:31 Pulse Ox 98 03/17/22 07:31 FiO2 21 03/16/22 07:37 Intake & Output 03/16/22 03/17/22 03/17/22 18:59 06:59 18:59 Intake Total 1080 Balance 1080 Intake: Oral 1080 Other: # Voids 3 3 - Labs CBC & Chem 7: 03/16/22 04:49 03/18/22 08:15 Labs: Abnormal Lab Results - Last 24 Hours (Table) 03/16/22 03/16/22 03/16/22 Range/Units 04:49 04:49 11:24 WBC 11.99 H (4.50-10.00) X 10*3/uL Immature Gran # 0.08 H (0.00-0.04) X 10*3/uL Neutrophils # 9.64 H (1.80-7.70) X 10*3/uL Anion Gap 9.50 L (10.00-18.00) mmol/L BUN 44.7 H (9.0-27.0) mg/dL Creatinine 1.6 H (0.6-1.5) mg/dL Est GFR (CKD-EPI)AfAm 54.2 L (60.0-200.0) Est GFR (CKD-EPI)NonAf 46.8 L (60.0-200.0) BUN/Creatinine Ratio 27.94 H (12.00-20.00) Ratio Glucose 176 H (70-110) mg/dL POC Glucose (mg/dL) 157 H (70-110) mg/dL Calcium 8.4 L (8.7-10.3) mg/dL Urine Protein (Negative) Urine Glucose (UA) (Negative) Hyaline Casts (0-2) /lpf Urine Mucus (None) /hpf 03/16/22 03/16/22 03/16/22 Range/Units 15:42 16:21 20:38 WBC (4.50-10.00) X 10*3/uL Immature Gran # (0.00-0.04) X 10*3/uL Neutrophils # (1.80-7.70) X 10*3/uL Anion Gap (10.00-18.00) mmol/L BUN (9.0-27.0) mg/dL Creatinine (0.6-1.5) mg/dL Est GFR (CKD-EPI)AfAm (60.0-200.0) Est GFR (CKD-EPI)NonAf (60.0-200.0) BUN/Creatinine Ratio (12.00-20.00) Ratio Glucose (70-110) mg/dL POC Glucose (mg/dL) 251 H 248 H (70-110) mg/dL Calcium (8.7-10.3) mg/dL Urine Protein 1+ H (Negative) Urine Glucose (UA) 1+ H (Negative) Hyaline Casts 3 H (0-2) /lpf Urine Mucus Rare H (None) /hpf 03/17/22 Range/Units 06:04 WBC (4.50-10.00) X 10*3/uL Immature Gran # (0.00-0.04) X 10*3/uL Neutrophils # (1.80-7.70) X 10*3/uL Anion Gap (10.00-18.00) mmol/L BUN (9.0-27.0) mg/dL Creatinine (0.6-1.5) mg/dL Est GFR (CKD-EPI)AfAm (60.0-200.0) Est GFR (CKD-EPI)NonAf (60.0-200.0) BUN/Creatinine Ratio (12.00-20.00) Ratio Glucose (70-110) mg/dL POC Glucose (mg/dL) 134 H (70-110) mg/dL Calcium (8.7-10.3) mg/dL Urine Protein (Negative) Urine Glucose (UA) (Negative) Hyaline Casts (0-2) /lpf Urine Mucus (None) /hpf
--- NOTE | 2022-03-18 10:12 | P.DS ---
Providers Date of admission: 03/09/22 15:55 Expected date of discharge: 03/20/22 Attending physician: Kelly Montesinos Consults: 03/09/22 15:55 Consult Physician Urgent Consulting Provider: [facility] Consult Reason/Comments: Atrial fibrillation, hypertensive urgency Do you want consulting provider notified?: Yes Consult Physician Urgent Consulting Provider: Andriy Foote Consult Reason/Comments: RSV, bronchospasms Do you want consulting provider notified?: Yes 03/13/22 15:02 Consult Physician Routine Consulting Provider: Jahaira Pope Consult Reason/Comments: ARF Do you want consulting provider notified?: Yes Primary care physician: Kelly Montesinos [facility] Course: HISTORY OF PRESENT ILLNESS: This is a 56-year-old male patient of rosita and Dr. Ga with past medical history of coronary artery disease status post 6 vessel CABG 2006 with MAE to LAD, saphenous venous graft to the PDA, saphenous venous graft to the obtuse marginal one, radial artery to the obtuse marginal branch 2 and saphenous venous graft to the obtuse marginal 3 followed by heart catheterization with PCI and stent of the saphenous venous graft to the RCA in 2015 at which time he presented with non-ST elevated myocardial infarction. Most recent cardiac catheterization was performed in March of 2019 which revealed severe triple- vessel coronary artery disease with a patent ramus intermediate, patent SVG to the OM, patent MAE to the LAD, and occluded saphenous vein graft to the RCA which is chronic from before. Medical therapy was advised at that time. History of hypertension hypertensive cardiovascular disease with left ventricular hypertrophy, hyperlipidemia, ischemic cardiomyopathy, paroxysmal atrial fibrillation currently on Eliquis , diabetes mellitus type 2 with diabetic polyneuropathy, hyperlipidemia, asthma, obstructive sleep apnea on CPAP, chronic low back pain, DVT in the past, patient has been following with me on a regular basis, he developed to have a significant shortness breath associated with increased coughing and pleuritic chest pain ended up coming to the emergency department at [facility] today because of increased chest pain associated with increased shortness breath, he was found to be positive for RSV, and he was in atrial fibrillation with rapid ventricular response, patient was started on Solu-Medrol 40 mg IV push every 6 hours, he was also placed on DuoNeb 3 and an immunization 4 times every day as well as oxygen support, he was admitted to the hospital with cardiology and pulmonary evaluation, patient also wa hypertensive and he stated that he has not been taking his blood pressure medications over the last few days, because she was not feeling well. 03/10: Patient is seen today on the cardiac stepdown unit. Patient has been resumed on his home antihypertensive medications and blood pressure is well controlled. He has been seen by cardiology with plan to continue current medications and obtain echocardiogram. Patient is also been seen by pulmonary medicine and maintained on Pulmicort, DuoNeb treatments and IV Solu-Medrol. Patient continues to have a cough with clear sputum production. Breathing status is stable. We'll plan to decrease frequency of Solu-Medrol to every 12 hours. 03/11: Patient continues to complain of cough that is nonproductive with wheezing. Patient is been afebrile, heart rate in the 70s, blood pressure 116/77, pulse ox 95% on room air. Her blood glucose running between 236 and 358. Patient will be continued on IV Solu-Medrol and Lantus will be increased to 30 units. [facility] 03/12: Patient is seen today on the MedSurg floor. Cardiology has signed off. Patient continues to have wheezing and cough that is nonproductive. He has been afebrile, heart rate in the 60s and 70s, blood pressure 118/72 and pulse ox 92% on room air. Capillary blood glucose are improved running between 125 and 247. Pulmonary medicine has transition patient to oral prednisone. He is continued on nebulizer treatments, Robitussin and Symbicort. Patient is also continued on his home medication regime. Anticipate discharge home tomorrow. 03/13: Patient is seen today on the MedSurg floor. He is having increased shortness of breath with wheezing and also diarrhea. Blood work came back surprisingly with a creatinine of 3, BUN 78, hemoglobin was 12.9 and WBC 12.2. Patient will be started on IV fluids 0.9 normal saline at 100 mL per hour, will discontinue metformin, Lasix and hydrochlorothiazide. Blood pressure is been stable 114/83, heart rate in the 50s and 60s. Echocardiogram reveals EF of 60%. Possible amyloidosis, moderate concentric left ventricular hypertrophy, [id number] tricuspid regurgitation, RVSP 34.8 03/16: CT of the chest was ordered on Wednesday which revealed cardiomegaly. Atherosclerotic vascular disease. Nonspecific mediastinal lymph nodes. Lymph nodes slightly increased compared to exam. Clearing of the right pleural effusion compared to old exam minimal subsegmental atelectasis right lung base. No suspicious pulmonary mass. He has been followed by pulmonary medicine and maintained on Symbicort, DuoNeb treatments and oral prednisone. Patient continues to have significant wheezing despite appropriate treatment. Patient has been afebrile, heart rate in the 70s, blood pressure 186/91 and pulse ox 93% on room air. Blood pressure readings have been elevated over the weekend. Noted that he was taken off Lasix and hydrochlorothiazide since Wednesday and also losartan was discontinued. Patient has been seen for by nephrology for acute kidney injury and recommendations are to continue to hold diuretics and losartan, hydralazine was increased. Repeat blood work reveals WBC 11.9, h emoglobin 13.2. Potassium 4.1, sodium 140. BUN 44, creatinine 1.6. Blood sugars have been running between 93 and 230. Repeat chest x-ray from yesterday reveals no active cardiopulmonary disease. No change compared to old exam. 03/17 Patient's respiratory status is slowly improving. He is on room air. He is on oral prednisone and nebulizer treatments [id number]. He's been followed by pulmonary medicine as well as nephrology.repeat blood work reveals BUN 34 creatinine 1.6. Plan will be to monitor the patient another 24 hours and plan for discharge tomorrow. 03/18 Repeat blood work reveals BUN of 37 creatinine 1.49. Amlodipine has been increased to 10 mg daily. Patient continues to very slowly improving respiratory status. Patient will be discharged home today in stable condition. Medication adjustments will be made. 03/20: Patient is doing a lot better today, he denies any chest pain, shortness breath, he continues to have occasional cough, he has his nebulizer, his blood pressures much better, he would be sent home with follow-up with me as an outpatient in the next week or so. DISCHARGE DIAGNOSES 1. Acute hypoxemic respiratory failure due to acute asthma exacerbation complicated by RSV infection. 2. Atrial fibrillation with rapid ventricular response, paroxysmal. 3. Accelerated hypertension. 4. Acute kidney injury. 5. Diabetes mellitus type 2, uncontrolled with hyperglycemia secondary to noncompliance and use of steroids. 6. Diarrhea. Stable 7. Coronary artery disease status post CABG 6 as well as PCI in the past. 8. Hyperlipidemia. 9. Diabetic polyneuropathy. 10. Obstructive sleep apnea. 11. Chronic low back pain. 12. Pleuritic chest pain. Discharge plan: Home Wednesday Greater than 35 minutes was utilized and coordinating patient's discharge. Impression and plan of care have been directed as dictated by the signing physician. Dipika Mendez nurse practitioner acting as scribe for signing physician. Patient Condition at Discharge: Stable Plan - Discharge Summary Discharge Rx Participant: No New Discharge Prescriptions: New Ipratropium-Albuterol Nebulize [Duoneb 0.5 mg-3 mg/3 ml Soln] 3 ml INHALATION QID #120 each amLODIPine [Norvasc] 10 mg PO DAILY #30 tab guaiFENesin SYRUP 100MG/5ML [Robitussin] 200 mg PO Q6HR PRN ml PRN Reason: Cough Budesonide-Formot 160-4.5 Mcg [Symbicort 160-4.5 Mcg Inhaler] 2 puff INHALATION RT-BID #1 each predniSONE 30 mg PO DAILY #18 tab hydrALAZINE HCL [Apresoline] 100 mg PO TID #180 tab Losartan Potassium [Cozaar] 100 mg PO DAILY #30 tablet Continue Atorvastatin [Lipitor] 80 mg PO HS #30 tab Metoprolol Tartrate [Lopressor] 100 mg PO BID #60 tab cloNIDine HCL [Catapres] 0.1 mg PO BID Clopidogrel [Plavix] 75 mg PO DAILY tab Ezetimibe [Zetia] 10 mg PO HS Gabapentin 900 mg PO BID Apixaban [Eliquis] 5 mg PO Q2D Insulin Lispro [humaLOG Kwikpen] See Protocol SQ AC-TID Insulin Lispro [humaLOG Kwikpen] 7 unit SQ AC-TID Insulin Glargine,Hum.rec.anlog [Basaglar Kwikpen U-100] 23 unit SQ HS #0 Discontinued Potassium Chloride ER [K-Dur 10] 10 meq PO DAILY #30 tab Losartan/Hydrochlorothiazide [Hyzaar 100-12.5 Tablet] 1 tab PO DAILY metFORMIN HCL [Glucophage] 1,000 mg PO BID hydrALAZINE HCL [Apresoline] 50 mg PO BID Furosemide [Lasix] 40 mg PO DAILY Discharge Medication List Atorvastatin [Lipitor] 80 mg PO HS #30 tab 04/14/19 [Rx] Metoprolol Tartrate [Lopressor] 100 mg PO BID #60 tab 04/14/19 [Rx] cloNIDine HCL [Catapres] 0.1 mg PO BID 11/09/19 [History] Clopidogrel [Plavix] 75 mg PO DAILY tab 11/20/19 [Rx] Ezetimibe [Zetia] 10 mg PO HS 12/15/20 [History] Apixaban [Eliquis] 5 mg PO Q2D 03/09/22 [History] Gabapentin 900 mg PO BID 03/09/22 [History] Insulin Lispro [humaLOG Kwikpen] 7 unit SQ AC-TID 03/11/22 [History] Insulin Lispro [humaLOG Kwikpen] See Protocol SQ AC-TID 03/11/22 [History] Budesonide-Formot 160-4.5 Mcg [Symbicort 160-4.5 Mcg Inhaler] 2 puff INHALATION RT-BID #1 each 03/18/22 [Rx] Insulin Glargine,Hum.rec.anlog [Basaglar Kwikpen U-100] 23 unit SQ HS #0 03/18/22 [Rx] Ipratropium-Albuterol Nebulize [Duoneb 0.5 mg-3 mg/3 ml Soln] 3 ml INHALATION QID #120 each 03/18/22 [Rx] Losartan Potassium [Cozaar] 100 mg PO DAILY #30 tablet 03/18/22 [Rx] amLODIPine [Norvasc] 10 mg PO DAILY #30 tab 03/18/22 [Rx] guaiFENesin SYRUP 100MG/5ML [Robitussin] 200 mg PO Q6HR PRN ml 03/18/22 [Rx] hydrALAZINE HCL [Apresoline] 100 mg PO TID #180 tab 03/18/22 [Rx] predniSONE 30 mg PO DAILY #18 tab 03/18/22 [Rx] Follow up Appointment(s)/Referral(s): Jorge Luis aG MD [STAFF PHYSICIAN] - 2 Weeks (Office closed at time of discharge please call for appointment.) Kelly Montesinos MD [Primary Care Provider] - 1 Week (Office is closed at time of discharge. Please call for appointment.) Fidencio Rodriguez DO [STAFF PHYSICIAN] - 1 Week (Office is closed at time of discharge. Please call for appointment.) Joann Yates MD [STAFF PHYSICIAN] - 1 Week (Office is closed at time of discharge. Please call for appointment.) Ambulatory/Diagnostic Orders: Complete Blood Count w/diff [LAB.AMB] Location: None Selected Comprehensive Metabolic Panel [LAB.AMB] Location: None Selected Patient Instructions/Handouts: Respiratory Syncytial Virus (DC), Hypertensive Crisis (DC), Anemia (DC) Discharge Disposition: HOME SELF-CARE
--- NOTE | 2022-03-18 10:18 | P.PN ---
Subjective Progress Note Date: 03/18/22 Pulmonary consult dated 03/10/2022. 56-year-old male who presented to the emergency department on March 09 complaining of cough, chest congestion, and shortness of breath. The patient comes in with a two to four-day history of increasing shortness of breath, cough, chest congestion, and minimal phlegm production. He denied any fever or chills. He denies any chest pain or chest discomfort. The patient was evaluated in the emergency department, and admitted to the hospital. His chest x-ray was normal. He did test positive for respiratory syncytial virus. The patient denies a history of any significant lung disease. The patient is a lifelong nonsmoker. Currently, he's on room air. He's not receiving any IV fluids. White count 8.6, hemoglobin 13.1, hematocrit 38.1, and platelet count 237,000. Sodium 137, potassium 3.2, chlorides 98, CO2 29, BUN 15, creatinine 0.94. He did test positive for RSV. He tested negative for influenza, and coronavirus infection. Chest x-ray was reported as being normal. Progress note dated 03/11/2022. 56-year-old male seen yesterday in consultation. Please see the note above. The patient came in with cough, shortness of breath, and chest congestion. He was found to be positive for RSV. Currently, the patient is on room air. He's not receiving any IV fluids. As mentioned yesterday, I thought the patient could be discharged home on some prednisone. Clinically he is doing much better. No new labs today. Progress note dated 03/12/2022. 56-year-old male seen in consultation 2 days ago. He was admitted with a diagnosis of RSV infection, with reactive bronchospasm and bronchial inflammation. The patient's currently on room air. The patient is not receiving any IV fluids. In our opinion, the patient could be discharged home. The patient's clinically very stable. No new lab data today. Glucose was 247. Progress note dated 03/14/2022. 56-year-old male again seen in room 477. He's on room air. The patient is receiving saline at 100 mL an hour. From the pulmonary standpoint, although the patient is still a bit short of breath and wheezing, we thought the patient could be discharged home. Labs today include a white count of 11, hemoglobin 13.3, hematocrit 40.7, and a normal platelet count. Sodium 138, potassium 3.6, chlorides 103, CO2 23, BUN 67, and creatinine 2.4. Calcium 8.6. CT is reviewed, and other than some cardiomegaly, and ASHD, the CT is essentially unremarkable. Progress note dated 03/15/2022. 56-year-old male again seen in room 477. The patient continues on room air. The patient is receiving saline at 100 mL an hour. Clinically, he appears stable. From the pulmonary standpoint, the patient does admit to some occasional wheezing, and a bit of shortness of breath, particularly on exertion. The patient has never required oxygen during his hospitalization. White count 12.55, hemoglobin 12.7, hematocrit 39.2, and platelet count 200,000. Sodium 142, potassium 3.2, chlorides 107, CO2 25, anion gap 10, BUN 40, and creatinine 1.9. With fluid administration, the patient's creatinine has gone from 3, down to 2.4, down to 1.9. The creatinine on March [address] from J anuary 20, showed evidence of cardiomegaly, and reactive adenopathy. The pleural effusion is improved, and there is some basilar atelectasis. No suspicious pulmonary mass is noted. 03/16/2022, the patient remains on prednisone which is a part of the burst taper 30 mg by mouth daily. Still bronchospastic and wheezy. Is currently on room air oxygen. Still having a lot of cough, wheezing congestion. He is post RSV infection and he also has multiple medical comorbidities including asthma which was mildly demented at baseline in addition to diabetes mellitus and coronary artery disease. CAT scan of the chest was unremarkable. Blood work from today shows a WBC count of 11.7 with a hemoglobin 13.2 and a platelet count of 2:15. Sodium is at 140 with a BUN of 44 and a creatinine of 1.6. Noted the patient and acute kidney injury and the creatinine peaked at 3.0 and currently is down to 1.6. Blood sugar currently is at 140. Tolerating diet. He needs an incentive spirometer. IV fluids are currently of KVO. Chest x-ray from yesterday showed no acute abnormalities. 03/17/2022, I would say the patient is slightly improved compared to yesterday less bronchospastic and wheezy. Is currently on room air oxygen. He remains on prednisone at a dose of 30 mg as part of the burst taper. No new complaints. He remains on Symbicort. He remains on DuoNeb nebulized treatments around-the- clock. He remains on Levemir insulin 30 units and NovoLog scale coverage. Blood sugars are adequate for now. In terms of labs, the labs from yesterday was noted and there are no new labs available from today. UA was also repeated yesterday and essentially showing +1 protein, no other major abnormalities noted. Tolerating his diet. No altered mentation. No chest pain. Remains on anticoagulation. On today's evaluation of 03/18/2022, the patient is having some limited cough and congestion and wheeze. He is on a prednisone burst taper. He is on bronchodilators. As mentioned, the patient has acute RSV infection which exacerbated his chronic obstructive airway disease. He also has multiple comorbidities. The patient is a sodium level of 138, potassium of 3.9, BUN is 37 with a creatinine of 1.4. The patient is using the [employer] spirometer. Is falling approximately 1500 on his incentive spirometer. He remains on Levemir insulin 30 units along with that he is on a NovoLog 6 units with meals and a sliding scale coverage. Creatinine is currently at 1.49 and he continues to improve. Objective - Vital Signs Vital signs: Vital Signs Temp 98.6 F 03/18/22 06:23 Pulse 72 03/18/22 07:35 Resp 17 03/18/22 06:23 BP 172/89 03/18/22 06:23 Pulse Ox 96 03/18/22 07:22 FiO2 21 03/16/22 07:37 Intake & Output 03/17/22 03/18/22 03/18/22 18:59 06:59 18:59 Intake Total 658 Balance 658 Intake: Oral 658 Other: # Voids 2 3 - Exam No acute distress, oriented 3. No respiratory distress, audible wheezing, use of accessory muscles, or conversational dyspnea. HEENT examination is grossly unremarkable. Neck supple. Full range of motion. No adenopathy thyromegaly or neck vein distention. Cardiovascular examination reveals regular rhythm rate. S1-S2 normal. No S3 or S4. No discernible murmur noted. Heart sounds are distant. Heart rate 54 bpm. Lungs reveal mild bilateral expiratory wheezes. Breath sounds equal. Scattered rhonchi. No crackles. Breath sounds are equal bilaterally. Room air saturations are 97 %. Abdomen soft bowel sounds are heard. No masses or tenderness. Extremities are intact. No cyanosis or edema. Fingertip clubbing is noted. Skin is without rash or lesion. Neurologic examination is brief but nonfocal. - Labs CBC & Chem 7: 03/16/22 04:49 03/18/22 08:15 Labs: Abnormal Lab Results - Last 24 Hours (Table) 03/17/22 03/17/22 03/17/22 Range/Units 05:42 11:00 16:31 Chloride (98-107) mmol/L Anion Gap 9.70 L (10.00-18.00) mmol/L BUN 34.2 H (9.0-27.0) mg/dL Creatinine 1.6 H (0.6-1.5) mg/dL Est GFR (CKD-EPI)AfAm 54.2 L (60.0-200.0) Est GFR (CKD-EPI)NonAf 46.8 L (60.0-200.0) BUN/Creatinine Ratio 21.38 H (12.00-20.00) Ratio Glucose 150 H (70-110) mg/dL POC Glucose (mg/dL) 124 H 180 H (70-110) mg/dL Calcium 8.6 L (8.7-10.3) mg/dL 03/17/22 03/18/22 03/18/22 Range/Units 20:18 06:12 08:15 Chloride 110 H (98-107) mmol/L Anion Gap (10.00-18.00) mmol/L BUN 37 H (9.0-27.0) mg/dL Creatinine 1.49 H (0.6-1.5) mg/dL Est GFR (CKD-EPI)AfAm (60.0-200.0) Est GFR (CKD-EPI)NonAf (60.0-200.0) BUN/Creatinine Ratio (12.00-20.00) Ratio Glucose 152 H (70-110) mg/dL POC Glucose (mg/dL) 233 H 151 H (70-110) mg/dL Calcium 8.1 L (8.7-10.3) mg/dL Assessment and Plan Plan: Acute bronchitis with bronchospasm and bronchial inflammation, secondary to RSV infection, improving slowly currently on room air oxygen. Chest x-rays the of any pulmonary infiltrates. Slow to progress. Continues to improve Bronchial asthma with an acute exacerbation secondary to an RSV infection Acute kidney injury, likely related to dehydration, improved. Creatinine continues to improve History of CAD, with previous bypass grafting, 6 vessel. Previous cardiac catheterizations with stent placement. History of hypertension. History of hyperlipidemia. Diabetes mellitus. History of deep venous thrombosis. History of myocardial infarction. History of obstructive sleep apnea syndrome, maintained on CPAP. History of cellulitis. Diabetic neuropathy. History of spinal fusion. Left forearm compartment syndrome, with previous fasciotomy. Plan: Clinically improving, even less bronchospastic and wheezing compared to yesterday. Prednisone burst taper currently on 30 mg Patient was made aware that this may take a longer tempted recovers. He wants to stay in the hospital for another 24 hours. I'll leave the decision to discharge this patient on previous primary care team. Based on my opinion, the patient is improving. I think he should be able to go home either today or within next 24 hours on a prednisone burst taper to complete his treatment on outpatient basis. I'm going to discuss this also with a medical team.
[2022-03-18 11:29] LABS: Glucose,Whole Blood 213 mg/dL (70-110)
--- NOTE | 2022-03-18 12:43 | P.PN ---
Subjective Patient is seen in follow-up for acute kidney injury. Renal function a little better. Has been voiding. Off IV fluids. Oral intake is fair. Currently on room air. Blood pressure high this morning. Vital signs are stable. General: No acute distress. HEENT: Head exam is unremarkable. LUNGS: Breath sounds decreased. HEART: Rate and Rhythm are regular. ABDOMEN: Soft, no distention. EXTREMITITES: No edema. Objective - Vital Signs Vital signs: Vital Signs Temp 98.6 F 03/18/22 06:23 Pulse 70 03/18/22 11:24 Resp 17 03/18/22 06:23 BP 172/89 03/18/22 06:23 Pulse Ox 96 03/18/22 07:22 FiO2 21 03/16/22 07:37 Intake & Output 03/17/22 03/18/22 03/18/22 18:59 06:59 18:59 Intake Total 898 Balance 898 Intake: Oral 658 Other 240 Other: # Voids 2 3 - Labs CBC & Chem 7: 03/16/22 04:49 03/18/22 08:15 Labs: Abnormal Lab Results - Last 24 Hours (Table) 03/17/22 03/17/22 03/18/22 Range/Units 16:31 20:18 06:12 Chloride (98-107) mmol/L BUN (9-20) mg/dL Creatinine (0.66-1.25) mg/dL Glucose (74-99) mg/dL POC Glucose (mg/dL) 180 H 233 H 151 H (70-110) mg/dL Calcium (8.4-10.2) mg/dL 03/18/22 03/18/22 Range/Units 08:15 11:27 Chloride 110 H (98-107) mmol/L BUN 37 H (9-20) mg/dL Creatinine 1.49 H (0.66-1.25) mg/dL Glucose 152 H (74-99) mg/dL POC Glucose (mg/dL) 213 H (70-110) mg/dL Calcium 8.1 L (8.4-10.2) mg/dL Assessment and Plan Plan: Assessment: 1. Acute kidney injury mostly prerenal improving with IV hydration. Creatinine was 3 on admission and is 1.49 today. Baseline creatinine near 1. No hydronephrosis noted on ultrasound. 2. RSV pneumonia. 3. Hypokalemia from diuresis. Replaced. Improved. 4. Benign hypertension. Exacerbated by steroids. 5. Diabetes mellitus. 6. Mild to moderate tricuspid regurgitation. Plan: Encourage oral intake. Dose of hydralazine increased yesterday. Maintain when necessary hydralazine. Amlodipine increased to 10 mg today. Continue to hold diuretics and losartan. Avoid nephrotoxins. Continue to monitor renal function and urine output. Maintain lactulose as needed for constipation. Patient advised to follow up outpatient 1 week post discharge.
--- NOTE | 2022-03-18 12:52 | P.PN ---
Subjective Progress Note Date: 03/18/22 HISTORY OF PRESENT ILLNESS: This is a 56-year-old male patient of rosita and Dr. Ga with past medical history of coronary artery disease status post 6 vessel CABG 2006 with MAE to LAD, saphenous venous graft to the PDA, saphenous venous graft to the obtuse marginal one, radial artery to the obtuse marginal branch 2 and saphenous venous graft to the obtuse marginal 3 followed by heart catheterization with PCI and stent of the saphenous venous graft to the RCA in 2015 at which time he pre sented with non-ST elevated myocardial infarction. Most recent cardiac catheterization was performed in March of 2019 which revealed severe triple- vessel coronary artery disease with a patent ramus intermediate, patent SVG to the OM, patent MAE to the LAD, and occluded saphenous vein graft to the RCA which is chronic from before. Medical therapy was advised at that time. History of hypertension hypertensive cardiovascular disease with left ventricular hypertrophy, hyperlipidemia, ischemic cardiomyopathy, paroxysmal atrial fibrillation currently on Eliquis , diabetes mellitus type 2 with diabetic polyneuropathy, hyperlipidemia, asthma, obstructive sleep apnea on CPAP, chronic low back pain, DVT in the past, patient has been following with me on a regular basis, he developed to have a significant shortness breath associated with increased coughing and pleuritic chest pain ended up coming to the emergency department at [facility] today because of increased chest pain associa raquel with increased shortness breath, he was found to be positive for RSV, and he was in atrial fibrillation with rapid ventricular response, patient was started on Solu-Medrol 40 mg IV push every 6 hours, he was also placed on DuoNeb 3 and an immunization 4 times every day as well as oxygen support, he was admitted to the hospital with cardiology and pulmonary evaluation, patient also wa antonio caldwell and he stated that he has not been taking his blood pressure medications over the last few days, because she was not feeling well. 03/10: Patient is seen today on the cardiac stepdown unit. Patient has been resumed on his home antihypertensive medications and blood pressure is well controlled. He has been seen by cardiology with plan to continue current medications and obtain echocardiogram. Patient is also been seen by pulmonary medicine and maintained on Pulmicort, DuoNeb treatments and IV Solu-Medrol. Patient continues to have a cough with clear sputum production. Breathing stat us is stable. We'll plan to decrease frequency of Solu-Medrol to every 12 hours. 03/11: Patient continues to complain of cough that is nonproductive with wheezing. Patient is been afebrile, heart rate in the 70s, blood pressure 116/77, pulse ox 95% on room air. Her blood glucose running between 236 and 358. Patient will be continued on IV Solu-Medrol and Lantus will be increased to 30 units. Patient will be transferred to [facility] floor. 03/12: Patient is seen today on the [facility] floor. Cardiology has signed off. Patient continues to have wheezing and cough that is nonproductive. He has been afebrile, heart rate in the 60s and 70s, blood pressure 118/72 and pulse ox 92% on room air. Capillary blood glucose are improved running between 125 and 247. Pulmonary medicine has transition patient to oral prednisone. He is continued on nebulizer treatments, Robitussin and Symbicort. Patient is also continued on his home medication regime. Anticipate discharge home tomorrow. 03/13: Patient is seen today on the [facility] floor. He is having increased shortness of breath with wheezing and also diarrhea. Blood work came back surprisingly with a creatinine of 3, BUN 78, hemoglobin was 12.9 and WBC 12.2. Patient will be started on IV fluids 0.9 normal saline at 100 mL per hour, will discontinue metformin, Lasix and hydrochlorothiazide. Blood pressure is been stable 114/83, heart rate in the 50s and 60s. Echocardiogram reveals EF of 60%. Possible amyloidosis, moderate concentric left ventricular hypertrophy, [id number] tricuspid regurgitation, RVSP 34.8 03/16: CT of the chest was ordered on Wednesday which revealed cardiomegaly. Atherosclerotic vascular disease. Nonspecific mediastinal lymph nodes. Lymph nodes slightly increased compared to exam. Clearing of the right pleural effusion compared to old exam minimal subsegmental atelectasis right lung base. No suspicious pulmonary mass. He has been followed by pulmonary medicine and maintained on Symbicort, DuoNeb treatments and oral prednisone. Patient continues to have significant wheezing despite appropriate treatment. Patient has been afebrile, heart rate in the 70s, blood pressure 186/91 and pulse ox 93% on room air. Blood pressure readings have been elevated over the weekend. Noted that he was taken off Lasix and hydrochlorothiazide since Wednesday and also losartan was discontinued. Patient has been seen for by nephrology for acute kidney injury and recommendations are to continue to hold diuretics and losartan, hydralazine was increased. Repeat blood work reveals WBC 11.9, hemoglobin 13.2. Potassium 4.1, sodium 140. BUN 44, creatinine 1.6. Blood sugars have been running between 93 and 230. Repeat chest x-ray from yesterday reveals no active cardiopulmonary disease. No change compared to old exam. 03/17: Patient's respiratory status is slowly improving. He is on room air. He is on oral prednisone and nebulizer treatments [id number]. He's been followed by pulmonary medicine as well as nephrology.repeat blood work reveals BUN 34 creatinine 1.6. Plan will be to monitor the patient another 24 hours and plan for discharge tomorrow. 03/18 Repeat blood work reveals BUN of 37 creatinine 1.49. Amlodipine will be increased to 10 mg daily. Patient continues to very slowly improving respiratory status. He is reaching 1500 ml on IS. Medication adjustments will be made. Anticipate discharge home tomorrow. REVIEW OF SYSTEMS: Constitutional: No documented fever, no chills, no night sweats. No weight change. positive for weakness,positive for fatigue or lethargy. No daytime sleepiness. HEENT: No headache. No blurred vision or double vision, no loss of vision. No loss of Hearing, no ringing in the ears, no dizziness. No nasal drainage or congestion. No epistaxis. No sore throat. Lungs: positive for shortness of breath, positive for cough, denies sputum production. positive for wheezing. Reports dyspnea with activity. Cardiovascular: pleuritic chest pain, no lower extremity edema. No palpitations. No paroxysmal nocturnal dyspnea. No orthopnea. No lightheadedness or dizziness. No syncopal episodes. Abdominal: Reports abdominal pain. No nausea, vomiting. Reports diarrhea. No constipation. No bloody or tarry stools reports loss of appetite. Genitourinary: No dysuria, increased frequency, urgency. No urinary retention. Musculoskeletal: No myalgias. No muscle weakness, no gait dysfunction, no frequent falls. No back pain. No neck pain. Integumentary: No wounds, no lesions. No rash or pruritus. No unusual bruising. No change in hair or nails. Neurologic: No aphasia. No facial droop. No change in mentation. No head injury. No headache. No paralysis. No paresthesia. Psychiatric: No depression. No anxiety. No mood swings. Endocrine: Noted abnormal blood sugars. PHYSICAL EXAMINATION: General: 56-year-old male laying down in bed in no respiratory distress. HEENT: Head is atraumatic, normocephalic, pupils were equal round reactive to light, conjunctivae were pale, mucous membranes of the mouth are somewhat dry. Neck: Supple, no JVP. Chest: Decreased breath sounds at the bases, few rhonchi, positive for expiratory wheezes, no chest wall tenderness, no intercostal retractions. Heart: First heart sound is normal, second heart sounds normal, irregularly irregular, there is systolic ejection murmur 2/6 located in the left sternal border. Abdomen: Soft, nontender, nondistended, positive bowel sounds. Extremities: There is no edema no calf tenderness DP +1 bilaterally. Neurologic examination: Patient is awake alert and oriented X 3. ASSESSMENT AND PLAN: 1. Acute hypoxemic respiratory failure due to acute asthma exacerbation complicated by RSV infection. Patient is off oxygen, continue oral prednisone, continue DuoNeb 3 mg nebulization 4 times every day, Symbicort twice daily contact/droplet precautions, pulmonary consultation appreciated. 2. Atrial fibrillation with rapid ventricular response. Restart the patient back on his metoprolol 100 mg orally twice every day, continue to monitor the patient very closely, restart the patient back on Eliquis 2.5 mg orally twice every day. Cardiology consultation appreciatedin cardiology has signed off. 3. Accelerated hypertension. Patient has been off his blood pressure medication for the last few days prior to admission. Losartan and diuretics on hold due to acute kidney injury, continue patient on metoprolol 100 mg orally twice every day, continue hydralazine increased to 100 mg orally 3 times daily, continue clonidine 0.1 mg orally twice every day monitor the patient blood pressure very closely.also amlodipine increased to 10 mg daily. 4. Acute kidney injury. Metformin, Lasix and hydrochlorothiazide discontinued. Monitor daily renal function and electrolytes. Nephrology consult appreciated. 5. Diabetes mellitus type 2, uncontrolled with hyperglycemia secondary to noncompliance and use of steroids. Continue Levemir to 30 units at bedtime along with a sliding scale insulin monitor the patient hemoglobin A1c, NovoLog 6 units with meals added. Hold metformin 6. Diarrhea. Stable 7. Coronary artery disease status post CABG 6 as well as PCI in the past. Continue patient on Plavix 75 mg once every day, metoprolol 100 mg orally twice every day, continue patient on atorvastatin 80 mg orally once every day, continues Zetia 10 mg orally once every day. 8. Hyperlipidemia. Continue patient on atorvastatin 80 mg once every day, continue Zetia 10 mg orally once every day, monitor lipid panel, keep LDL 55-70. 9. Diabetic polyneuropathy. Continue patient on gabapentin 100 mg orally 3 times every day. 10. Obstructive sleep apnea. Patient does have a CPAP at home. 11. Chronic low back pain. Continue gabapentin 900 mg orally 3 times every day. 12. Pleuritic chest pain. Start the patient on morphine 2 mg IV push every 4 hours as needed. 13. DVT prophylaxis. Continue Eliquis 2.5 mg orally twice every day. 14. GI prophylaxis. continue the patient on Protonix 40 mg orally once every day. Patient's full code. Discharge plan: Home most likely on Impression and plan of care have been directed as dictated by the signing physician. Dipika Mendez nurse practitioner acting as scribe for signing physician. Objective - Vital Signs Vital signs: Vital Signs Temp 98.6 F 03/18/22 06:23 Pulse 70 03/18/22 11:24 Resp 17 03/18/22 06:23 BP 172/89 03/18/22 06:23 Pulse Ox 96 03/18/22 07:22 FiO2 21 03/16/22 07:37 Intake & Output 03/17/22 03/18/22 03/18/22 18:59 06:59 18:59 Intake Total 898 Balance 898 Intake: Oral 658 Other 240 Other: # Voids 2 3 - Labs CBC & Chem 7: 03/16/22 04:49 03/18/22 08:15 Labs: Abnormal Lab Results - Last 24 Hours (Table) 03/17/22 03/17/22 03/18/22 Range/Units 16:31 20:18 06:12 Chloride (98-107) mmol/L BUN (9-20) mg/dL Creatinine (0.66-1.25) mg/dL Glucose (74-99) mg/dL POC Glucose (mg/dL) 180 H 233 H 151 H (70-110) mg/dL Calcium (8.4-10.2) mg/dL 03/18/22 03/18/22 Range/Units 08:15 11:27 Chloride 110 H (98-107) mmol/L BUN 37 H (9-20) mg/dL Creatinine 1.49 H (0.66-1.25) mg/dL Glucose 152 H (74-99) mg/dL POC Glucose (mg/dL) 213 H (70-110) mg/dL Calcium 8.1 L (8.4-10.2) mg/dL
[2022-03-18 17:08] LABS: Glucose,Whole Blood 149 mg/dL (70-110)
[2022-03-18 20:56] LABS: Glucose,Whole Blood 215 mg/dL (70-110)
[2022-03-18] MEDS: INSULIN DETEMIR (LEVEMIR) 100 UNIT/ML SYR SQ SCH (21:46)
[2022-03-18] MEDS: ATORVASTATIN 80 MG TAB PO SCH (21:47)
[2022-03-18] MEDS: EZETIMIBE 10 MG TAB PO SCH (21:47)
[2022-03-19] MEDS: MORPHINE SULFATE 2 MG/ML SYRINGE IVP PRN ×4 (02:36→22:52)
[2022-03-19] MEDS: IPRATROPIUM-ALBUTEROL 3 ML NEB INHALATION PRN ×5 (04:56→20:39)
[2022-03-19 06:37] LABS: Glucose,Whole Blood 151 mg/dL (70-110)
[2022-03-19] MEDS: INSULIN ASPART (NovoLOG) 100 UNIT/ML VIAL SQ SCH ×7 (06:41→20:57)
[2022-03-19] MEDS: PANTOPRAZOLE 40 MG TABLET PO SCH (06:42)
[2022-03-19] MEDS: SYMBICORT 160-4.5 MCG INHALER INHALATION SCH ×2 (07:12→20:39)
[2022-03-19] MEDS: hydrALAZINE HCL 50 MG TAB PO SCH ×3 (09:09→20:56)
[2022-03-19] MEDS: GABAPENTIN 300 MG CAP PO SCH ×2 (09:09→20:56)
[2022-03-19] MEDS: CLOPIDOGREL 75 MG TAB PO SCH (09:09)
[2022-03-19] MEDS: amLODIPine 10 MG TAB PO SCH (09:10)
[2022-03-19] MEDS: cloNIDine HCL 0.1 MG TAB PO SCH ×2 (09:10→20:56)
[2022-03-19] MEDS: predniSONE 10 MG TAB PO SCH (09:10)
[2022-03-19] MEDS: METOPROLOL TARTRATE 50 MG TAB PO SCH ×2 (09:10→20:56)
[2022-03-19] MEDS: APIXABAN 2.5 MG TABLET PO SCH ×2 (09:10→20:56)
[2022-03-19] MEDS: LOSARTAN 50 MG TAB PO SCH (09:10)
[2022-03-19 11:31] LABS: Glucose,Whole Blood 106 mg/dL (70-110)
--- NOTE | 2022-03-19 11:48 | P.PN ---
Subjective Progress Note Date: 03/19/22 Pulmonary consult dated 03/10/2022. 56-year-old male who presented to the emergency department on March 09 complaining of cough, chest congestion, and shortness of breath. The patient comes in with a two to four-day history of increasing shortness of breath, cough, chest congestion, and minimal phlegm production. He denied any fever or chills. He denies any chest pain or chest discomfort. The patient was evaluated in the emergency department, and admitted to the hospital. His chest x-ray was normal. He did test positive for respiratory syncytial virus. The patient denies a history of any significant lung disease. The patient is a lifelong nonsmoker. Currently, he's on room air. He's not receiving any IV fluids. White count 8.6, hemoglobin 13.1, hematocrit 38.1, and platelet count 237,000. Sodium 137, potassium 3.2, chlorides 98, CO2 29, BUN 15, creatinine 0.94. He did test positive for RSV. He tested negative for influenza, and coronavirus infection. Chest x-ray was reported as being normal. Progress note dated 03/11/2022. 56-year-old male seen yesterday in consultation. Please see the note above. The patient came in with cough, shortness of breath, and chest congestion. He was found to be positive for RSV. Currently, the patient is on room air. He's not receiving any IV fluids. As mentioned yesterday, I thought the patient could be discharged home on some prednisone. Clinically he is doing much better. No new labs today. Progress note dated 03/12/2022. 56-year-old male seen in consultation 2 days ago. He was admitted with a diagnosis of RSV infection, with reactive bronchospasm and bronchial inflammation. The patient's currently on room air. The patient is not receiving any IV fluids. In our opinion, the patient could be discharged home. The patient's clinically very stable. No new lab data today. Glucose was 247. Progress note dated 03/14/2022. 56-year-old male again seen in room 477. He's on room air. The patient is receiving saline at 100 mL an hour. From the pulmonary standpoint, although the patient is still a bit short of breath and wheezing, we thought the patient could be discharged home. Labs today include a white count of 11, hemoglobin 13.3, hematocrit 40.7, and a normal platelet count. Sodium 138, potassium 3.6, chlorides 103, CO2 23, BUN 67, and creatinine 2.4. Calcium 8.6. CT is reviewed, and other than some cardiomegaly, and ASHD, the CT is essentially unremarkable. Progress note dated 03/15/2022. 56-year-old male again seen in room 477. The patient continues on room air. The patient is receiving saline at 100 mL an hour. Clinically, he appears stable. From the pulmonary standpoint, the patient does admit to some occasional wheezing, and a bit of shortness of breath, particularly on exertion. The patient has never required oxygen during his hospitalization. White count 12.55, hemoglobin 12.7, hematocrit 39.2, and platelet count 200,000. Sodium 142, potassium 3.2, chlorides 107, CO2 25, anion gap 10, BUN 40, and creatinine 1.9. With fluid administration, the patient's creatinine has gone from 3, down to 2.4, down to 1.9. The creatinine on March [address] from J anuary 20, showed evidence of cardiomegaly, and reactive adenopathy. The pleural effusion is improved, and there is some basilar atelectasis. No suspicious pulmonary mass is noted. 03/16/2022, the patient remains on prednisone which is a part of the burst taper 30 mg by mouth daily. Still bronchospastic and wheezy. Is currently on room air oxygen. Still having a lot of cough, wheezing congestion. He is post RSV infection and he also has multiple medical comorbidities including asthma which was mildly demented at baseline in addition to diabetes mellitus and coronary artery disease. CAT scan of the chest was unremarkable. Blood work from today shows a WBC count of 11.7 with a hemoglobin 13.2 and a platelet count of 2:15. Sodium is at 140 with a BUN of 44 and a creatinine of 1.6. Noted the patient and acute kidney injury and the creatinine peaked at 3.0 and currently is down to 1.6. Blood sugar currently is at 140. Tolerating diet. He needs an incentive spirometer. IV fluids are currently of KVO. Chest x-ray from yesterday showed no acute abnormalities. 03/17/2022, I would say the patient is slightly improved compared to yesterday less bronchospastic and wheezy. Is currently on room air oxygen. He remains on prednisone at a dose of 30 mg as part of the burst taper. No new complaints. He remains on Symbicort. He remains on DuoNeb nebulized treatments around-the- clock. He remains on Levemir insulin 30 units and NovoLog scale coverage. Blood sugars are adequate for now. In terms of labs, the labs from yesterday was noted and there are no new labs available from today. UA was also repeated yesterday and essentially showing +1 protein, no other major abnormalities noted. Tolerating his diet. No altered mentation. No chest pain. Remains on anticoagulation. On today's evaluation of 03/18/2022, the patient is having some limited cough and congestion and wheeze. He is on a prednisone burst taper. He is on bronchodilators. As mentioned, the patient has acute RSV infection which exacerbated his chronic obstructive airway disease. He also has multiple comorbidities. The patient is a sodium level of 138, potassium of 3.9, BUN is 37 with a creatinine of 1.4. The patient is using the senna spirometer. Is falling approximately 1500 on his incentive spirometer. He remains on Levemir insulin 30 units along with that he is on a NovoLog 6 units with meals and a sliding scale coverage. Creatinine is currently at 1.49 and he continues to improve. 03/19/2022, overall respiratory status is stable and the patient is less short of breath. He was improving and he is using the incentive spirometer still. He remains on room air oxygen. His BP is elevated and the patient is having further regiment adjustments on his blood pressure medication by the primary care team. No other new complaints otherwise for now. He is currently on a combination of prednisone burst taper on bronchodilators. He remains on anticoagulants. He is also on Cozaar 100 mg by mouth daily, metoprolol 100 mg by mouth twice a day and he was also given hydralazine 100 mg by mouth 3 times a day for blood pressure control. Catapres is also be utilized to those of 0.4 mg twice a day. He is also on Norvasc, 10 mg by mouth daily. Objective - Vital Signs Vital signs: Vital Signs Temp 97.3 F L 03/19/22 08:04 Pulse 72 03/19/22 11:11 Resp 18 03/19/22 08:04 BP 173/86 03/19/22 08:04 Pulse Ox 97 03/19/22 08:04 FiO2 21 03/16/22 07:37 Intake & Output 03/18/22 03/19/22 03/19/22 18:59 06:59 18:59 Intake Total 1016 246 118 Balance 1016 246 118 Intake: IV 10 Invasive Line 2 10 Oral 776 [id number] 118 Other 240 Other: # Voids 2 - Exam No acute distress, oriented 3. No respiratory distress, audible wheezing, use of accessory muscles, or conversational dyspnea. HEENT examination is grossly unremarkable. Neck supple. Full range of motion. No adenopathy thyromegaly or neck vein distention. Cardiovascular examination reveals regular rhythm rate. S1-S2 normal. No S3 or S4. No discernible murmur noted. Heart sounds are distant. Heart rate 54 bpm. Lungs reveal mild bilateral expiratory wheezes. Breath sounds equal. Scattered rhonchi. No crackles. Breath sounds are equal bilaterally. Room air saturations are 97 %. Abdomen soft bowel sounds are heard. No masses or tenderness. Extremities are intact. No cyanosis or edema. Fingertip clubbing is noted. Skin is without rash or lesion. Neurologic examination is brief but nonfocal. - Labs CBC & Chem 7: 03/16/22 04:49 03/18/22 08:15 Labs: Abnormal Lab Results - Last 24 Hours (Table) 03/18/22 03/18/22 03/19/22 Range/Units 17:07 20:54 06:36 POC Glucose (mg/dL) 149 H 215 H 151 H (70-110) mg/dL Assessment and Plan Plan: Acute bronchitis with bronchospasm and bronchial inflammation, secondary to RSV infection, improving slowly currently on room air oxygen. Chest x-rays the of any pulmonary infiltrates. Slow to progress. Continues to improve, much better on today's evaluation. Bronchial asthma with an acute exacerbation secondary to an RSV infection Acute kidney injury, likely related to dehydration, improved. Creatinine continues to improve History of CAD, with previous bypass grafting, 6 vessel. Previous cardiac catheterizations with stent placement. History of hypertension. The patient continues to be hypertensive and the blood pressure medication adjustment of being made by the medical team. History of hyperlipidemia. Diabetes mellitus. History of deep venous thrombosis. History of myocardial infarction. History of obstructive sleep apnea syndrome, maintained on CPAP. History of cellulitis. Diabetic neuropathy. History of spinal fusion. Left forearm compartment syndrome, with previous fasciotomy. Plan: Clinically improving, Prednisone burst taper currently on 30 mg Blood pressure pressure adjustments are being made for another blood pressure control
--- NOTE | 2022-03-19 12:16 | P.PN ---
Subjective Patient is seen in follow-up for acute kidney injury. Renal function a little better. Has been voiding. Off IV fluids. Oral intake is fair. Currently on room air. Blood pressure remains high. Vital signs are stable. General: No acute distress. HEENT: Head exam is unremarkable. LUNGS: Breath sounds decreased. HEART: Rate and Rhythm are regular. ABDOMEN: Soft, no distention. EXTREMITITES: No edema. Objective - Vital Signs Vital signs: Vital Signs Temp 97.3 F L 03/19/22 08:04 Pulse 72 03/19/22 11:11 Resp 18 03/19/22 08:04 BP 173/86 03/19/22 08:04 Pulse Ox 97 03/19/22 08:04 FiO2 21 03/16/22 07:37 Intake & Output 03/18/22 03/19/22 03/19/22 18:59 06:59 18:59 Intake Total 1016 246 118 Balance 1016 246 118 Intake: IV 10 Invasive Line 2 10 Oral 776 236 118 Other 240 Other: # Voids 2 - Labs CBC & Chem 7: 03/16/22 04:49 03/18/22 08:15 Labs: Abnormal Lab Results - Last 24 Hours (Table) 03/18/22 03/18/22 03/19/22 Range/Units 17:07 20:54 06:36 POC Glucose (mg/dL) 149 H 215 H 151 H (70-110) mg/dL Assessment and Plan Plan: Assessment: 1. Acute kidney injury mostly prerenal improving with IV hydration. Creatinine was 3 on admission 1.49 yesterday. Baseline creatinine near 1. No hydronephrosis noted on ultrasound. 2. RSV pneumonia. 3. Hypokalemia from diuresis. Replaced. Improved. 4. Benign hypertension. Exacerbated by steroids. 5. Diabetes mellitus. 6. Mild to moderate tricuspid regurgitation. 7. Coronary disease status post cardiac stenting. Plan: Encourage oral intake. Cozaar resumed today. Add low-dose diuretic. Maintain as needed hydralazine. Avoid nephrotoxins. Continue to monitor renal function and urine output. Maintain lactulose as needed for constipation. Patient advised to follow up outpatient 1 week post discharge.
[2022-03-19] MEDS: FUROSEMIDE 20 MG TAB PO SCH (12:36)
[2022-03-19 17:24] LABS: Glucose,Whole Blood 206 mg/dL (70-110)
[2022-03-19 20:45] LABS: Glucose,Whole Blood 226 mg/dL (70-110)
[2022-03-19] MEDS: EZETIMIBE 10 MG TAB PO SCH (20:56)
[2022-03-19] MEDS: ATORVASTATIN 80 MG TAB PO SCH (20:57)
[2022-03-19] MEDS: INSULIN DETEMIR (LEVEMIR) 100 UNIT/ML SYR SQ SCH (20:57)
[2022-03-20] MEDS: MORPHINE SULFATE 2 MG/ML SYRINGE IVP PRN ×2 (04:53→12:02)
[2022-03-20 06:24] LABS: Glucose,Whole Blood 186 mg/dL (70-110)
[2022-03-20] MEDS: PANTOPRAZOLE 40 MG TABLET PO SCH (06:42)
[2022-03-20] MEDS: INSULIN ASPART (NovoLOG) 100 UNIT/ML VIAL SQ SCH ×4 (06:43→12:03)
[2022-03-20 08:02] VITALS: TEMP 98.5
[2022-03-20] MEDS: amLODIPine 10 MG TAB PO SCH (08:06)
[2022-03-20] MEDS: APIXABAN 2.5 MG TABLET PO SCH (08:06)
[2022-03-20] MEDS: predniSONE 10 MG TAB PO SCH (08:06)
[2022-03-20] MEDS: hydrALAZINE HCL 50 MG TAB PO SCH ×2 (08:06→16:57)
[2022-03-20] MEDS: cloNIDine HCL 0.1 MG TAB PO SCH (08:07)
[2022-03-20] MEDS: GABAPENTIN 300 MG CAP PO SCH (08:07)
[2022-03-20] MEDS: CLOPIDOGREL 75 MG TAB PO SCH (08:07)
[2022-03-20] MEDS: LOSARTAN 50 MG TAB PO SCH (08:07)
[2022-03-20] MEDS: FUROSEMIDE 20 MG TAB PO SCH (08:07)
[2022-03-20] MEDS: METOPROLOL TARTRATE 50 MG TAB PO SCH (08:07)
[2022-03-20] MEDS: SYMBICORT 160-4.5 MCG INHALER INHALATION SCH (08:31)
[2022-03-20] MEDS: IPRATROPIUM-ALBUTEROL 3 ML NEB INHALATION PRN ×2 (08:31→15:51)
[2022-03-20 09:02] LABS: Basophils # (A) 0.01 X 10*3/uL (0.00-0.10); Basophils % (A) 0.1 %; Eosinophils # (A) 0.08 X 10*3/uL (0.04-0.35); Eosinophils % (A) 0.6 %; HCT 40.8 % (39.6-50.0); HGB 13.1 g/dL (13.0-17.0); Immature Grans, Automated 0.8 %; Lymphocytes # (A) 1.19 X 10*3/uL (0.90-5.00); Lymphocytes % (A) 8.8 %; MCH 27.3 pg (27.0-32.0); MCHC 32.1 g/dL (32.0-37.0); MCV 85.2 fL (80.0-97.0); Mean Platelet Volume 10.4 fL (9.5-12.2); Monocytes # (A) 0.96 X 10*3/uL (0.20-1.00); Monocytes % (A) 7.1 %; NRBC Per 100 WBC 0 /100 WBCS (0.0-0.0); Neutrophils # (A) 11.24 X 10*3/uL (1.80-7.70); Neutrophils % (A) 82.6 %; Platelet Count 235 X 10*3/uL (140-440); RBC 4.79 X 10*6/uL (4.40-5.60); RDW 13.6 % (11.5-14.5); WBC 13.59 X 10*3/uL (4.50-10.00)
[2022-03-20 09:13] LABS: African American GFR (CKD) 58.6 (60.0-200.0); Albumin 3.2 g/dL (3.8-4.9); Albumin/Globulin Ratio 1.52 (1.60-3.17); Anion Gap 9.2 mmol/L (10.00-18.00); BUN/Creat Ratio 20.07 Ratio (12.00-20.00); Blood Urea Nitrogen 30.1 mg/dL (9.0-27.0); Calcium 8.2 mg/dL (8.7-10.3); Carbon Dioxide 25.8 mmol/L (20.0-27.5); Globulin 2.1 g/dL (1.6-3.3); Magnesium 1.6 mg/dL (1.5-2.4); Non-African American GFR(CKD) 50.6 (60.0-200.0); Potassium 3.8 mmol/L (3.5-5.5); Total Bilirubin 0.5 mg/dL (0.30-1.20); Total Protein 5.3 g/dL (6.2-8.2)
[2022-03-20 11:21] LABS: Glucose,Whole Blood 155 mg/dL (70-110)
--- NOTE | 2022-03-20 12:04 | P.PN ---
Subjective Patient is seen in follow-up for acute kidney injury. Renal function stable. Constipation improved. Has been voiding. Off IV fluids. Oral intake is fair. Currently on room air. Blood pressure better controlled. Vital signs are stable. General: No acute distress. HEENT: Head exam is unremarkable. LUNGS: Breath sounds decreased. HEART: Rate and Rhythm are regular. ABDOMEN: Soft, no distention. EXTREMITITES: No edema. Objective - Vital Signs Vital signs: Vital Signs Temp 98.5 F 03/20/22 07:10 Pulse 60 03/20/22 08:46 Resp 16 03/20/22 07:10 BP 155/89 03/20/22 07:10 Pulse Ox 95 03/20/22 08:31 FiO2 21 03/16/22 07:37 Intake & Output 03/19/22 03/20/22 03/20/22 18:59 06:59 18:59 Intake Total 590 Output Total 300 0 Balance 290 0 Intake: Oral 590 Output: Urine 300 0 Other: Voiding Method Toilet - Labs CBC & Chem 7: 03/20/22 05:40 03/20/22 05:40 Labs: Abnormal Lab Results - Last 24 Hours (Table) 03/19/22 03/19/22 03/20/22 Range/Units 17:23 20:43 05:40 WBC (4.50-10.00) X 10*3/uL Immature Gran # (0.00-0.04) X 10*3/uL Neutrophils # (1.80-7.70) X 10*3/uL Anion Gap 9.20 L (10.00-18.00) mmol/L BUN 30.1 H (9.0-27.0) mg/dL Est GFR (CKD-EPI)AfAm 58.6 L (60.0-200.0) Est GFR (CKD-EPI)NonAf 50.6 L (60.0-200.0) BUN/Creatinine Ratio 20.07 H (12.00-20.00) Ratio Glucose 203 H (70-110) mg/dL POC Glucose (mg/dL) 206 H 226 H (70-110) mg/dL Calcium 8.2 L (8.7-10.3) mg/dL AST 9 L (14-35) U/L Total Protein 5.3 L (6.2-8.2) g/dL Albumin 3.2 L (3.8-4.9) g/dL Albumin/Globulin Ratio 1.52 L (1.60-3.17) g/dL 03/20/22 03/20/22 03/20/22 Range/Units 05:40 06:22 11:20 WBC 13.59 H (4.50-10.00) X 10*3/uL Immature Gran # 0.11 H (0.00-0.04) X 10*3/uL Neutrophils # 11.24 H (1.80-7.70) X 10*3/uL Anion Gap (10.00-18.00) mmol/L BUN (9.0-27.0) mg/dL Est GFR (CKD-EPI)AfAm (60.0-200.0) Est GFR (CKD-EPI)NonAf (60.0-200.0) BUN/Creatinine Ratio (12.00-20.00) Ratio Glucose (70-110) mg/dL POC Glucose (mg/dL) 186 H 155 H (70-110) mg/dL Calcium (8.7-10.3) mg/dL AST (14-35) U/L Total Protein (6.2-8.2) g/dL Albumin (3.8-4.9) g/dL Albumin/Globulin Ratio (1.60-3.17) g/dL Assessment and Plan Plan: Assessment: 1. Acute kidney injury mostly prerenal improving with IV hydration. Creatinine was 3 on admission and is stable at 1.5 today. Baseline creatinine near 1. No hydronephrosis noted on ultrasound. 2. RSV pneumonia. 3. Hypokalemia from diuresis. Replaced. 4. Benign hypertension. Exacerbated by steroids. 5. Diabetes mellitus. 6. Mild to moderate tricuspid regurgitation. 7. Coronary disease status post cardiac stenting. 8. Hypomagnesemia from diuresis. Plan: Encouraged oral intake. Cozaar resumed 03/19/2022. Lasix also had a 03/19/2022. Maintain as needed hydralazine. Add oral magnesium oxide. Avoid nephrotoxins. Continue to monitor renal function and urine output. Maintain lactulose as needed for constipation. Patient advised to follow up outpatient 1 week post discharge.
[2022-03-20] MEDS ORDERED: MAGNESIUM OXIDE 400 MG TAB PO SCH (12:15)
--- NOTE | 2022-03-20 14:19 | P.PN ---
Subjective Progress Note Date: 03/20/22 Pulmonary consult dated 03/10/2022. 56-year-old male who presented to the emergency department on March 09 complaining of cough, chest congestion, and shortness of breath. The patient comes in with a two to four-day history of increasing shortness of breath, cough, chest congestion, and minimal phlegm production. He denied any fever or chills. He denies any chest pain or chest discomfort. The patient was evaluated in the emergency department, and admitted to the hospital. His chest x-ray was normal. He did test positive for respiratory syncytial virus. The patient denies a history of any significant lung disease. The patient is a lifelong nonsmoker. Currently, he's on room air. He's not receiving any IV fluids. White count 8.6, hemoglobin 13.1, hematocrit 38.1, and platelet count 2 37,000. Sodium 137, potassium 3.2, chlorides 98, CO2 29, BUN 15, creatinine 0.94. He did test positive for RSV. He tested negative for influenza, and coronavirus infection. Chest x-ray was reported as being normal. Progress note dated 03/11/2022. 56-year-old male seen yesterday in consultation. Please see the note above. The patient came in with cough, shortness of breath, and chest congestion. He was found to be positive for RSV. Currently, the patient is on room air. He's not receiving any IV fluids. As mentioned yesterday, I thought the patient could be discharged home on some prednisone. Clinically he is doing much better. No new labs today. Progress note dated 03/12/2022. 56-year-old male seen in consultation 2 days ago. He was admitted with a diagnosis of RSV infection, with reactive bronchospasm and bronchial inflammation. The patient's currently on room air. The patient is not receiving any IV fluids. In our opinion, the patient could be discharged home. The patient's clinically very stable. No new lab data today. Glucose was 247. Progress note dated 03/14/2022. 56-year-old male again seen in room 477. He's on room air. The patient is receiving saline at 100 mL an hour. From the pulmonary standpoint, although the patient is still a bit short of breath and wheezing, we thought the patient could be discharged home. Labs today include a white count of 11, hemoglobin 13.3, hematocrit 40.7, and a normal platelet count. Sodium 138, potassium 3.6, chlorides 103, CO2 23, BUN 67, and creatinine 2.4. Calcium 8.6. CT is reviewed, and other than some cardiomegaly, and ASHD, the CT is essentially unremarkable. Progress note dated 03/15/2022. 56-year-old male again seen in room 477. The patient continues on room air. The patient is receiving saline at 100 mL an hour. Clinically, he appears stable. From the pulmonary standpoint, the patient does admit to some occasional wheezing, and a bit of shortness of breath, particularly on exertion. The patient has never required oxygen during his hospitalization. White count 12.55, hemoglobin 12.7, hematocrit 39.2, and platelet count 200,000. Sodium 142, potassium 3.2, chlorides 107, CO2 25, anion gap 10, BUN 40, and creatinine 1.9. With fluid administration, the patient's creatinine has gone from 3, down to 2.4, down to 1.9. The creatinine on March [address] from Feb, showed evidence of cardiomegaly, and reactive adenopathy. The pleural effusion is improved, and there is some basilar atelectasis. No suspicious pulmonary mass is noted. 03/16/2022, the patient remains on prednisone which is a part of the burst taper 30 mg by mouth daily. Still bronchospastic and wheezy. Is currently on room air oxygen. Still having a lot of cough, wheezing congestion. He is post RSV infection and he also has multiple medical comorbidities including asthma which was mildly demented at baseline in addition to diabetes mellitus and coronary artery disease. CAT scan of the chest was unremarkable. Blood work from today shows a WBC count of 11.7 with a hemoglobin 13.2 and a platelet count of 2:15. Sodium is at 140 with a BUN of 44 and a creatinine of 1.6. Noted the patient and acute kidney injury and the creatinine peaked at 3.0 and currently is down to 1.6. Blood sugar currently is at 140. Tolerating diet. He needs an incentive spirometer. IV fluids are currently of KVO. Chest x-ray from yesterday showed no acute abnormalities. 03/17/2022, I would say the patient is slightly improved compared to yesterday less bronchospastic and wheezy. Is currently on room air oxygen. He remains on prednisone at a dose of 30 mg as part of the burst taper. No new complaints. He remains on Symbicort. He remains on DuoNeb nebulized treatments around-the- clock. He remains on Levemir insulin 30 units and NovoLog scale coverage. Blood sugars are adequate for now. In terms of labs, the labs from yesterday was noted and there are no new labs available from today. UA was also repeated yesterday and essentially showing +1 protein, no other major abnormalities noted. Tolerating his diet. No altered mentation. No chest pain. Remains on anticoagulation. On today's evaluation of 03/18/2022, the patient is having some limited cough and congestion and wheeze. He is on a prednisone burst taper. He is on bronchodilators. As mentioned, the patient has acute RSV infection which exacerbated his chronic obstructive airway disease. He also has multiple comorbidities. The patient is a sodium level of 138, potassium of 3.9, BUN is 37 with a creatinine of 1.4. The patient is using the senna spirometer. Is falling approximately 1500 on his incentive spirometer. He remains on Levemir insulin 30 units along with that he is on a NovoLog 6 units with meals and a sliding scale coverage. Creatinine is currently at 1.49 and he continues to improve. 03/19/2022, overall respiratory status is stable and the patient is less short of breath. He was improving and he is using the incentive spirometer still. He remains on room air oxygen. His BP is elevated and the patient is having further regiment adjustments on his blood pressure medication by the primary care team. No other new complaints otherwise for now. He is currently on a combination of prednisone burst taper on bronchodilators. He remains on anticoagulants. He is also on Cozaar 100 mg by mouth daily, metoprolol 100 mg by mouth twice a day and he was also given hydralazine 100 mg by mouth 3 times a day for blood pressure control. Catapres is also be utilized to those of 0.4 mg twice a day. He is also on Norvasc, 10 mg by mouth daily. The patient is seen today 03/20/2022 in follow-up on the regular medical floor. Is currently sitting up in bed. Awake and alert in no acute distress. Maintaining good O2 saturations in the 90s on room air. He has recovered from h is RSV infection. No worsening shortness of breath, cough or congestion. White count 13.5. Hemoglobin 13.1. Platelet is 235. Sodium 140. Potassium 3.5. Bicarb 26. BUN 30. Creatinine 1.5. GFR 51. Glucose 203. He is continued on DuoNeb inhalations, Symbicort, prednisone taper. Anticoagulated with Eliquis. Remains on oral diuretics. Hypertensive medications being adjusted. Objective - Vital Signs Vital signs: Vital Signs Temp 98.5 F 03/20/22 07:10 Pulse 60 03/20/22 08:46 Resp 16 03/20/22 07:10 BP 155/89 03/20/22 07:10 Pulse Ox 95 03/20/22 08:31 FiO2 21 03/16/22 07:37 Intake & Output 03/19/22 03/20/22 03/20/22 18:59 06:59 18:59 Intake Total 590 Output Total 300 0 Balance 290 0 Intake: Oral 590 Output: Urine 300 0 Other: Voiding Method Toilet - Exam GENERAL EXAM: Alert, pleasant 56-year-old male, on room air, comfortable in no apparent distress. HEAD: Normocephalic. EYES: Normal reaction of pupils, equal size. NOSE: Clear with pink turbinates. THROAT: No erythema or exudates. NECK: No masses, no JVD. CHEST: No chest wall deformity. LUNGS: Equal air entry with no crackles, wheeze, rhonchi or dullness. CVS: S1 and S2 normal with no audible murmur, regular rhythm. ABDOMEN: No hepatosplenomegaly, normal bowel sounds, no guarding or rigidity. SPINE: No scoliosis or deformity SKIN: No rashes CENTRAL NERVOUS SYSTEM: No focal deficits, tone is normal in all 4 extremities. EXTREMITIES: There is no peripheral edema. No clubbing, no cyanosis. Peripheral pulses are intact. - Labs CBC & Chem 7: 03/20/22 05:40 03/20/22 05:40 Labs: Abnormal Lab Results - Last 24 Hours (Table) 03/19/22 03/19/22 03/20/22 Range/Units 17:23 20:43 05:40 WBC (4.50-10.00) X 10*3/uL Immature Gran # (0.00-0.04) X 10*3/uL Neutrophils # (1.80-7.70) X 10*3/uL Anion Gap 9.20 L (10.00-18.00) mmol/L BUN 30.1 H (9.0-27.0) mg/dL Est GFR (CKD-EPI)AfAm 58.6 L (60.0-200.0) Est GFR (CKD-EPI)NonAf 50.6 L (60.0-200.0) BUN/Creatinine Ratio 20.07 H (12.00-20.00) Ratio Glucose 203 H (70-110) mg/dL POC Glucose (mg/dL) 206 H 226 H (70-110) mg/dL Calcium 8.2 L (8.7-10.3) mg/dL AST 9 L (14-35) U/L Total Protein 5.3 L (6.2-8.2) g/dL Albumin 3.2 L (3.8-4.9) g/dL Albumin/Globulin Ratio 1.52 L (1.60-3.17) g/dL 03/20/22 03/20/22 03/20/22 Range/Units 05:40 06:22 11:20 WBC 13.59 H (4.50-10.00) X 10*3/uL Immature Gran # 0.11 H (0.00-0.04) X 10*3/uL Neutrophils # 11.24 H (1.80-7.70) X 10*3/uL Anion Gap (10.00-18.00) mmol/L BUN (9.0-27.0) mg/dL Est GFR (CKD-EPI)AfAm (60.0-200.0) Est GFR (CKD-EPI)NonAf (60.0-200.0) BUN/Creatinine Ratio (12.00-20.00) Ratio Glucose (70-110) mg/dL POC Glucose (mg/dL) 186 H 155 H (70-110) mg/dL Calcium (8.7-10.3) mg/dL AST (14-35) U/L Total Protein (6.2-8.2) g/dL Albumin (3.8-4.9) g/dL Albumin/Globulin Ratio (1.60-3.17) g/dL Assessment and Plan Assessment: Acute bronchitis with bronchospasm and bronchial inflammation, secondary to RSV infection, covered and currently on room air oxygen. Chest x-rays clear of any pulmonary infiltrates. Continues to improve, much better on today's evaluation. Bronchial asthma with an acute exacerbation secondary to an RSV infection Acute kidney injury, likely related to dehydration, improved. Creatinine co ntinues to improve History of CAD, with previous bypass grafting, 6 vessel. Previous cardiac catheterizations with stent placement. History of hypertension. The patient continues to be hypertensive and medication adjustment of being made by the medical team. History of hyperlipidemia. Diabetes mellitus. History of deep venous thrombosis. History of myocardial infarction. History of obstructive sleep apnea syndrome, maintained on CPAP. History of cellulitis. Diabetic neuropathy. History of spinal fusion. Left forearm compartment syndrome, with previous fasciotomy. Plan: The patient was seen and evaluated Medications and labs reviewed Stable and on room air Cleared for discharge from the pulmonary standpoint Continue his home Symbicort, DuoNeb inhalations. I have personally seen and examined the patient, performed the documentation and the assessment and plan as written. Number of minutes spent on the visit: 10.
[2022-03-20 15:35] VITALS: BP 128/73; RESP 18
[2022-03-20 16:02] VITALS: PULSE 61
[2022-03-20 16:27] LABS: Glucose,Whole Blood 176 mg/dL (70-110)
--- NOTE | 2022-03-22 11:32 | P.PN ---
Subjective Progress Note Date: 03/19/22 HISTORY OF PRESENT ILLNESS: This is a 56-year-old male patient of rosita and Dr. Ga with past medical history of coronary artery disease status post 6 vessel CABG 2006 with MAE to LAD, saphenous venous graft to the PDA, saphenous venous graft to the obtuse marginal one, radial artery to the obtuse marginal branch 2 and saphenous venous graft to the obtuse marginal 3 followed by heart catheterization with PCI and stent of the saphenous venous graft to the RCA in 2015 at which time he pre sented with non-ST elevated myocardial infarction. Most recent cardiac catheterization was performed in March of 2019 which revealed severe triple- vessel coronary artery disease with a patent ramus intermediate, patent SVG to the OM, patent MAE to the LAD, and occluded saphenous vein graft to the RCA which is chronic from before. Medical therapy was advised at that time. History of hypertension hypertensive cardiovascular disease with left ventricular hypertrophy, hyperlipidemia, ischemic cardiomyopathy, paroxysmal atrial fibrillation currently on Eliquis , diabetes mellitus type 2 with diabetic polyneuropathy, hyperlipidemia, asthma, obstructive sleep apnea on CPAP, chronic low back pain, DVT in the past, patient has been following with me on a regular basis, he developed to have a significant shortness breath associated with increased coughing and pleuritic chest pain ended up coming to the emergency department at [facility] today because of increased chest pain associa raquel with increased shortness breath, he was found to be positive for RSV, and he was in atrial fibrillation with rapid ventricular response, patient was started on Solu-Medrol 40 mg IV push every 6 hours, he was also placed on DuoNeb 3 and an immunization 4 times every day as well as oxygen support, he was admitted to the hospital with cardiology and pulmonary evaluation, patient also wa antonio caldwell and he stated that he has not been taking his blood pressure medications over the last few days, because she was not feeling well. 03/10: Patient is seen today on the cardiac stepdown unit. Patient has been resumed on his home antihypertensive medications and blood pressure is well controlled. He has been seen by cardiology with plan to continue current medications and obtain echocardiogram. Patient is also been seen by pulmonary medicine and maintained on Pulmicort, DuoNeb treatments and IV Solu-Medrol. Patient continues to have a cough with clear sputum production. Breathing stat us is stable. We'll plan to decrease frequency of Solu-Medrol to every 12 hours. 03/11: Patient continues to complain of cough that is nonproductive with wheezing. Patient is been afebrile, heart rate in the 70s, blood pressure 116/77, pulse ox 95% on room air. Her blood glucose running between 236 and 358. Patient will be continued on IV Solu-Medrol and Lantus will be increased to 30 units. Patient will be transferred to [facility] floor. 03/12: Patient is seen today on the [facility] floor. Cardiology has signed off. Patient continues to have wheezing and cough that is nonproductive. He has been afebrile, heart rate in the 60s and 70s, blood pressure 118/72 and pulse ox 92% on room air. Capillary blood glucose are improved running between 125 and 247. Pulmonary medicine has transition patient to oral prednisone. He is continued on nebulizer treatments, Robitussin and Symbicort. Patient is also continued on his home medication regime. Anticipate discharge home tomorrow. 03/13: Patient is seen today on the [facility] floor. He is having increased shortness of breath with wheezing and also diarrhea. Blood work came back surprisingly with a creatinine of 3, BUN 78, hemoglobin was 12.9 and WBC 12.2. Patient will be started on IV fluids 0.9 normal saline at 100 mL per hour, will discontinue metformin, Lasix and hydrochlorothiazide. Blood pressure is been stable 114/83, heart rate in the 50s and 60s. Echocardiogram reveals EF of 60%. Possible amyloidosis, moderate concentric left ventricular hypertrophy, [id number] tricuspid regurgitation, RVSP 34.8 03/16: CT of the chest was ordered on Wednesday which revealed cardiomegaly. Atherosclerotic vascular disease. Nonspecific mediastinal lymph nodes. Lymph nodes slightly increased compared to exam. Clearing of the right pleural effusion compared to old exam minimal subsegmental atelectasis right lung base. No suspicious pulmonary mass. He has been followed by pulmonary medicine and maintained on Symbicort, DuoNeb treatments and oral prednisone. Patient continues to have significant wheezing despite appropriate treatment. Patient has been afebrile, heart rate in the 70s, blood pressure 186/91 and pulse ox 93% on room air. Blood pressure readings have been elevated over the weekend. Noted that he was taken off Lasix and hydrochlorothiazide since Wednesday and also losartan was discontinued. Patient has been seen for by nephrology for acute kidney injury and recommendations are to continue to hold diuretics and losartan, hydralazine was increased. Repeat blood work reveals WBC 11.9, hemoglobin 13.2. Potassium 4.1, sodium 140. BUN 44, creatinine 1.6. Blood sugars have been running between 93 and 230. Repeat chest x-ray from yesterday reveals no active cardiopulmonary disease. No change compared to old exam. 03/17: Patient's respiratory status is slowly improving. He is on room air. He is on oral prednisone and nebulizer treatments [id number]. He's been followed by pulmonary medicine as well as nephrology.repeat blood work reveals BUN 34 creatinine 1.6. Plan will be to monitor the patient another 24 hours and plan for discharge tomorrow. 03/18 Repeat blood work reveals BUN of 37 creatinine 1.49. Amlodipine will be increased to 10 mg daily. Patient continues to very slowly improving respiratory status. He is reaching 1500 ml on IS. Medication adjustments will be made. Anticipate discharge home tomorrow. 03/19: Patient is laying down in bed he continues to have issues with the hypertension, he continues to have minimal coughing with shortness breath, despite using the nebulized treatment, he was seen and followed by pulmonary medicine as well as cardiology, his blood pressure medicine was adjusted, added amlodipine 10 mg once every day, at this point in time we will continue with the losartan 100 mg once every day along with hydralazine 100 mg orally 2 times every day and metoprolol 100 mg orally twice every day, hopefully will be able to discharge the patient home tomorrow morning if okay with cardiology pulmonary as well as nephrology. REVIEW OF SYSTEMS: Constitutional: No documented fever, no chills, no night sweats. No weight change. positive for weakness,positive for fatigue or lethargy. No daytime sleepiness. HEENT: No headache. No blurred vision or double vision, no loss of vision. No loss of Hearing, no ringing in the ears, no dizziness. No nasal drainage or congestion. No epistaxis. No sore throat. Lungs: positive for shortness of breath, positive for cough, denies sputum production. positive for wheezing. Reports dyspnea with activity. Cardiovascular: pleuritic chest pain, no lower extremity edema. No palpit ations. No paroxysmal nocturnal dyspnea. No orthopnea. No lightheadedness or dizziness. No syncopal episodes. Abdominal: Reports abdominal pain. No nausea, vomiting. Reports diarrhea. No constipation. No bloody or tarry stools reports loss of appetite. Genitourinary: No dysuria, increased frequency, urgency. No urinary retention. Musculoskeletal: No myalgias. No muscle weakness, no gait dysfunction, no frequent falls. No back pain. No neck pain. Integumentary: No wounds, no lesions. No rash or pruritus. No unusual bruising. No change in hair or nails. Neurologic: No aphasia. No facial droop. No change in mentation. No head injury. No headache. No paralysis. No paresthesia. Psychiatric: No depression. No anxiety. No mood swings. Endocrine: Noted abnormal blood sugars. PHYSICAL EXAMINATION: General: 56-year-old male laying down in bed in no respiratory distr ess. HEENT: Head is atraumatic, normocephalic, pupils were equal round reactive to light, conjunctivae were pale, mucous membranes of the mouth are somewhat dry. Neck: Supple, no JVP. Chest: Decreased breath sounds at the bases, few rhonchi, positive for expiratory wheezes, no chest wall tenderness, no intercostal retractions. Heart: First heart sound is normal, second heart sounds normal, irregularly irregular, there is systolic ejection murmur 2/6 located in the left sternal border. Abdomen: Soft, nontender, nondistended, positive bowel sounds. Extremities: There is no edema no calf tenderness DP +1 bilaterally. Neurologic examination: Patient is awake alert and oriented X 3. ASSESSMENT AND PLAN: 1. Acute hypoxemic respiratory failure due to acute asthma exacerbation complicated by RSV infection. Patient is off oxygen, continue oral prednisone, continue DuoNeb 3 mg nebulization 4 times every day, Symbicort twice daily contact/droplet precautions, pulmonary consultation appreciated. 2. Atrial fibrillation with rapid ventricular response. Restart the patient back on his metoprolol 100 mg orally twice every day, continue to monitor the patient very closely, restart the patient back on Eliquis 2.5 mg orally twice every day. Cardiology consultation appreciatedin cardiology has signed off. 3. Accelerated hypertension. Patient has been off his blood pressure medication for the last few days prior to admission. Restart losartan 100 mg once every day without hydrochlorothiazide, continue patient on metoprolol 100 mg orally twice every day, continue hydralazine 100 mg orally 3 times daily, continue clonidine 0.1 mg orally twice every day monitor the patient blood p ressure very closely.also amlodipine increased to 10 mg daily. 4. Acute kidney injury. Metformin, Lasix and hydrochlorothiazide discontinued. Monitor daily renal function and electrolytes, his creatinine is back to baseline. 5. Diabetes mellitus type 2, uncontrolled with hyperglycemia secondary to noncompliance and use of steroids. Continue Levemir to 30 units at bedtime along with a sliding scale insulin monitor the patient hemoglobin A1c, NovoLog 6 units with meals added. Hold metformin 6. Diarrhea. resolved. Likely functional diarrhea. 7. Coronary artery disease status post CABG 6 as well as PCI in the past. Continue patient on Plavix 75 mg once every day, metoprolol 100 mg orally twice every day, continue patient on atorvastatin 80 mg orally once every day, continues Zetia 10 mg orally once every day. 8. Hyperlipidemia. Continue patient on atorvastatin 80 mg once every day, continue Zetia 10 mg orally once every day, monitor lipid panel, keep LDL 55-70. 9. Diabetic polyneuropathy. Continue patient on gabapentin 900 mg orally 3 times every day. 10. Obstructive sleep apnea. Patient does have a CPAP at home. 11. Chronic low back pain. Continue gabapentin 900 mg orally 3 times every day. 12. Pleuritic chest pain. Discontinue morphine 13. DVT prophylaxis. Continue Eliquis 2.5 mg orally twice every day. 14. GI prophylaxis. continue the patient on Protonix 40 mg orally once every day. 15. Home tomorrow morning. Objective - Vital Signs Vital signs: Vital Signs Temp 97.3 F L 03/19/22 08:04 Pulse 72 03/19/22 11:11 Resp 18 03/19/22 08:04 BP 173/86 03/19/22 08:04 Pulse Ox 97 03/19/22 08:04 FiO2 21 03/16/22 07:37 Intake & Output 03/18/22 03/19/22 03/19/22 18:59 06:59 18:59 Intake Total 1016 246 118 Balance 1016 246 118 Intake: IV 10 Invasive Line 2 10 Oral 776 236 118 Other 240 Other: # Voids 2 - Labs CBC & Chem 7: 03/20/22 05:40 03/20/22 05:40 Labs: Abnormal Lab Results - Last 24 Hours (Table) 03/18/22 03/18/22 03/19/22 Range/Units 17:07 20:54 06:36 POC Glucose (mg/dL) 149 H 215 H 151 H (70-110) mg/dL
== END 2022-03-20 17:24 | disposition home or self-care (01) | DRG 193 ==
LOC: EC 11:57 → OBSVTOIN 15:55 → 3SCARD 15:55 → 4SSUR 03-11 18:31
PROVIDERS: ADMIT Internal Medicine; ATTEND Internal Medicine
DX: J12.1 Respiratory syncytial virus pneumonia (principal); J96.01 Acute respiratory failure with hypoxia; N17.0 Acute kidney failure with tubular necrosis; J45.21 Mild intermittent asthma with (acute) exacerbation; I25.810 Atherosclerosis of coronary artery bypass graft(s) without angina pectoris; I48.19 Other persistent atrial fibrillation; I16.1 Hypertensive emergency; J44.0 Chronic obstructive pulmonary disease with (acute) lower respiratory infection; J90 Pleural effusion, not elsewhere classified; J98.11 Atelectasis; B02.29 Other postherpetic nervous system involvement; J21.0 Acute bronchiolitis due to respiratory syncytial virus; E86.0 Dehydration; E11.22 Type 2 diabetes mellitus with diabetic chronic kidney disease; E11.42 Type 2 diabetes mellitus with diabetic polyneuropathy; I13.10 Hypertensive heart and chronic kidney disease without heart failure, with stage 1 through stage 4 chronic kidney disease, or unspecified chronic kidney disease; F03.90 Unspecified dementia, unspecified severity, without behavioral disturbance, psychotic disturbance, mood disturbance, and anxiety; E11.65 Type 2 diabetes mellitus with hyperglycemia; N18.2 Chronic kidney disease, stage 2 (mild); Z79.4 Long term (current) use of insulin; Z20.822 Contact with and (suspected) exposure to COVID-19; Z28.310 Unvaccinated for COVID-19; J20.9 Acute bronchitis, unspecified; I25.5 Ischemic cardiomyopathy; G89.29 Other chronic pain; M54.50 Low back pain, unspecified; E83.42 Hypomagnesemia; E87.6 Hypokalemia; E78.5 Hyperlipidemia, unspecified; D64.9 Anemia, unspecified; I08.1 Rheumatic disorders of both mitral and tricuspid valves; G47.33 Obstructive sleep apnea (adult) (pediatric); I25.10 Atherosclerotic heart disease of native coronary artery without angina pectoris; R77.8 Other specified abnormalities of plasma proteins; I25.2 Old myocardial infarction; K59.00 Constipation, unspecified; K59.1 Functional diarrhea; T38.0X5A Adverse effect of glucocorticoids and synthetic analogues, initial encounter; T46.5X6A Underdosing of other antihypertensive drugs, initial encounter; T44.7X6A Underdosing of beta-adrenoreceptor antagonists, initial encounter; Z91.128 Patient's intentional underdosing of medication regimen for other reason; R59.9 Enlarged lymph nodes, unspecified; Z79.01 Long term (current) use of anticoagulants; Z79.02 Long term (current) use of antithrombotics/antiplatelets; Z79.84 Long term (current) use of oral hypoglycemic drugs; Z79.899 Other long term (current) drug therapy; Z95.5 Presence of coronary angioplasty implant and graft; Z95.1 Presence of aortocoronary bypass graft; Z86.718 Personal history of other venous thrombosis and embolism; Z86.14 Personal history of Methicillin resistant Staphylococcus aureus infection; Z98.1 Arthrodesis status; Z88.1 Allergy status to other antibiotic agents; Z82.5 Family history of asthma and other chronic lower respiratory diseases
CPT/HCPCS: 36415; 71045; 71046; 71250; 76770; 80048; 80053; 80061; 81001; 83735; 84484; 85025; 87636; 93005; 93306; 94640; 94760; 96374; 96375; 99284

== ENCOUNTER 2023-03-30 11:02 | Emergency (ER) | payer MEDICARE ==
[2023-03-30] MEDS ORDERED: SODIUM CHLORIDE 0.9% 1,000 ML IV STA (11:51)
[2023-03-30] MEDS ORDERED: MECLIZINE 12.5 MG TAB PO STA (11:53)
--- NOTE | 2023-03-30 12:08 | ED ---
Dizziness HPI - General Chief Complaint: Fall Stated Complaint: DIZZINESS FROM FALL Time Seen by Provider: 03/30/23 11:39 Source: patient, RN notes reviewed Mode of arrival: ambulatory Limitations: no limitations - History of Present Illness Initial Comments: This is a 57-year-old male who presents to the emergency department for a fall and dizziness. 3 days ago he tripped and fell, hitting the back of his head and neck on the shower door. Denies any loss of consciousness. He is on Eliquis. Since then he has been increasingly dizzy. This is worse when he turns his head and he has increasing nausea as a result. Denies any history of vertigo or similar symptoms in the past. Describes this as a room spinning sensation. Denies any chest pain or shortness of breath. Also denies any headaches or visual changes. MD Complaint: dizziness - Related Data Home Medications Medication Instructions Recorded Confirmed cloNIDine HCL [Catapres] 0.1 mg PO BID 11/09/19 04/10/22 Ezetimibe [Zetia] 10 mg PO HS 12/15/20 04/10/22 Apixaban [Eliquis] 5 mg PO BID 03/09/22 04/10/22 Gabapentin 900 mg PO BID 03/09/22 04/10/22 Insulin Glargine,Hum.rec.anlog 23 unit SQ HS 03/28/22 04/10/22 [Basaglar Anjel U-100] Isosorbide Mononitrate ER [Imdur] 30 mg PO DAILY 03/28/22 04/10/22 Atorvastatin [Lipitor] 80 mg PO HS 04/09/22 04/10/22 Ergocalciferol [Vitamin D2 (1250 1,250 mcg PO WEEKLY 04/09/22 04/10/22 Mcg = 59094 Iu)] Furosemide [Lasix] 40 mg PO DAILY 04/09/22 04/10/22 INSULIN ASPART (NovoLOG) [NovoLOG 0 unit SQ ACHS 04/09/22 04/09/22 (formulary)] Ipratropium-Albuterol Nebulize 3 ml INHALATION QID 04/09/22 04/10/22 [Duoneb 0.5 mg-3 mg/3 ml Soln] Moxifloxacin HCl [Avelox] 400 mg PO DAILY 04/09/22 04/10/22 guaiFENesin [Mucinex] 600 mg PO Q12H 04/09/22 04/10/22 metFORMIN HCL 1,000 mg PO BID 04/09/22 04/10/22 predniSONE [Deltasone] 0 mg PO DIRECTED 04/09/22 04/10/22 HYDROcodone/APAP 7.5-325MG [[place] 1 tab PO Q6HR PRN 04/10/22 04/10/22 7.5-325] Previous Rx's Medication Instructions Recorded Metoprolol Tartrate [Lopressor] 100 mg PO BID #60 tab 04/14/19 Clopidogrel [Plavix] 75 mg PO DAILY tab 11/20/19 Budesonide-Formot 160-4.5 Mcg 2 puff INHALATION RT-BID #1 each 03/18/22 [Symbicort 160-4.5 Mcg Inhaler] Losartan Potassium [Cozaar] 100 mg PO DAILY #30 tablet 03/18/22 amLODIPine [Norvasc] 10 mg PO DAILY #30 tab 03/18/22 hydrALAZINE HCL [Apresoline] 100 mg PO TID #180 tab 03/18/22 Meclizine [Antivert] 25 mg PO Q6H PRN #30 tab 03/30/23 Allergies Allergy/AdvReac Type Severity Reaction Status Date / Time adhesive tape Allergy Severe Rash/Hives Verified 03/30/23 11:27 vancomycin Allergy Mild Head Itches Verified 03/30/23 11:27 Review of Systems ROS Statement: Those systems with pertinent positive or pertinent negative responses have been documented in the HPI. ROS Other: All systems not noted in ROS Statement are negative. Past Medical History Past Medical History: Asthma, Coronary Artery Disease (CAD), Chest Pain / Angina, Diabetes Mellitus, Deep Vein Thrombosis (DVT), Hyperlipidemia, Hypertension, Myocardial Infarction (AK), Sleep Apnea/CPAP/BIPAP Additional Past Medical History / Comment(s): Obstructive sleep apnea CPAP, bronchitis, IDDM type II, DVT L leg, cellulitis L leg 2012 cellulitis L Arm 2017, diabetic neuropathy affects feet and hands, chronic kidney disease stage II Last Myocardial Infarction Date:: 06/23/13 History of Any Multi-Drug Resistant Organisms: Acinetobacter (MDRO), MRSA Date of last positivie culture/infection: 08/2014 MDRO Source:: abdomen around navel Past Surgical History: Back Surgery, Coronary Bypass/CABG, Heart Catheterization, Heart Catheterization With Stent, Hernia Repair Additional Past Surgical History / Comment(s): Cardiac caths, PCI with stents (4total), 2006 CABG 6 vessels, spinal fusion L4-L5, fasciotomy left thigh, bilateral inguinal hernia repairs, I&D L forearm with dehisence then compartment syndrome with fasciotomy Left forearm - June 2016 Past Anesthesia/Blood Transfusion Reactions: No Reported Reaction Date of Last Stent Placement:: 08/28/15 Past Psychological History: No Psychological Hx Reported Smoking Status: Never smoker Past Alcohol Use History: None Reported Past Drug Use History: None Reported - Past Family History Brother(s) Additional Family Medical History / Comment(s): Patient has 1 brother and 1 sister with no major medical problems. Mother Family Medical History: Congestive Heart Failure (CHF), Diabetes Mellitus Additional Family Medical History / Comment(s): Mother at the age of 84 from with history of chronic renal disease stage. Father Family Medical History: COPD, Coronary Artery Disease (CAD), Myocardial Infarction (AK) Additional Family Medical History / Comment(s): Father of a AK at the age of 60 yrs with history of COPD. Sister(s) Family Medical History: Rheumatoid Arthritis (RA) Additional Family Medical History / Comment(s): Patient has 1 sister with no major medical problems. General Exam Limitations: no limitations General appearance: alert, in no apparent distress Head exam: Present: atraumatic, normocephalic, normal inspection Eye exam: Present: normal appearance, PERRL, EOMI. Absent: scleral icterus, conjunctival injection, periorbital swelling ENT exam: Present: TM's normal bilaterally, normal external ear exam Respiratory exam: Present: normal lung sounds bilaterally. Absent: respiratory distress, wheezes, rales, rhonchi, stridor Cardiovascular Exam: Present: regular rate, normal rhythm, normal heart sounds. Absent: systolic murmur, diastolic murmur, rubs, gallop, clicks Neurological exam: Present: alert, oriented X3, CN II-XII intact Psychiatric exam: Present: normal affect, normal mood Skin exam: Present: warm, dry, intact, normal color. Absent: rash Course Vital Signs 03/30/23 03/30/23 03/30/23 11:24 12:22 13:34 Temperature 98.1 F 98.8 F Pulse Rate 84 76 83 Respiratory 16 20 19 Rate Blood Pressure 190/103 190/116 188/107 O2 Sat by Pulse 98 97 96 Oximetry Medical Decision Making - Medical Decision Making This is a 57-year-old male who presents to the emergency department for dizziness. Was pt. sent in by a medical professional or institution? @ -No Did you speak to anyone other than the patient for history? @ -No Did you review nursing and triage notes? @ -Yes, and I agree, it is accurate with regards to the patient's symptoms. Were old charts reviewed? @ -No Differential Diagnosis? @ -Differential Dizziness: Benign paroxysmal positional Vertigo, Menieres disease, otitis media, acoustic neuroma, vertebrobasilar insufficiency, cerebellar stroke, encephalitis, hypovolemic, arrhythmia, coronary artery syndrome, anemia, this is not meant to be an all-inclusive list EKG interpreted by me (3pts min.)? @ -EKG interpreted by me demonstrating the following: Atrial fibrillation. Ventricular rate 81 beats per minute, QRS duration 98 ms, QTC 452 ms. X-rays interpreted by me (1pt min.)? @ -Chest x-ray obtained, my interpretation identifies no localized consol idations or infiltrates. CT interpreted by me (1pt min.)? @ -Computed tomography scan of the brain and c-spine obtained. My interpretation identifies no evidence of an acute intracranial hemorrhage, skull fracture, or cervical spine fracture. U/S interpreted by me (1pt. min.)? @ -Not obtained What testing was considered but not performed? (CT, X-rays, U/S, labs)? Why? @ -None What meds were considered but not given? Why? @ -None Did you discuss the management of the patient with other professionals? @ -No Did you reconcile home meds? @ -No Was smoking cessation discussed for >3mins.? @ -No Was critical care preformed (if so, how long)? @ -No Were there social determinants of health that impacted care today? How? (Homelessness, low income, unemployed, alcoholism, drug addiction, transportation, low edu. Level, literacy, decrease access to med. care, shelter, rehab)? @ -No Was there de-escalation of care discussed even if they declined? (Discuss DNR or withdrawal of care, Hospice)? @ -No What co-morbidities impacted this encounter? (DM, HTN, Smoking, COPD, CAD, Cancer, CVA, Hep., AIDS, mental health diagnosis, sleep apnea, morbid obesity)? @ -Asthma, CAD, HTN, DM Was patient admitted / discharged? @ -Discharged. Lab work obtained and found to be unremarkable. Troponin of 0.033 is chronic for the patient and actually improved when compared with prior. Chest x-ray reveals no acute process. Computed tomography scan of the brain and C-spine also revealed no acute findings. Patient was given a liter bolus of IV fluids. HINTS exam is negative. Patient's symptoms are suggestive of vertigo given the positional nature with room spinning sensation and nausea. He was given a dose of meclizine in the emergency department and ambulated around with improvement in symptoms. At that point he requested discharge home. Prescription for meclizine provided with dosing instructions reviewed. Advised follow-up with his primary care provider. Undiagnosed new problem with uncertain prognosis? @ -None Drug Therapy requiring intensive monitoring for toxicity (Heparin, Nitro, Insulin, Cardizem)? @ -None Were any procedures done? @ -None Diagnosis/symptom? @ -Fall, head injury, dizziness Acute, or Chronic, or Acute on Chronic? @ -Acute Uncomplicated (without systemic symptoms) or Complicated (systemic symptoms)? @ -Uncomplicated Side effects of treatment? @ -None Exacerbation, Progression, or Severe Exacerbation] @ -Not applicable Poses a threat to life or bodily function? @ -No Return precautions reviewed in depth, the patient is instructed to return to the emergency department with any new, worsening, or concerning symptoms. Patient verbalized understanding. This case was discussed in detail with the attending ED physician, Dr. Arreguin. Presentation, findings, and treatment plan discussed in detail as we ll. - Lab Data Result diagrams: 03/30/23 11:55 03/30/23 11:55 Lab Results 03/30/23 03/30/23 03/30/23 Range/Units 11:55 11:55 11:55 WBC 8.0 (3.8-10.6) k/uL RBC 5.62 (4.30-5.90) m/uL Hgb 15.0 (13.0-17.5) gm/dL Hct 46.3 (39.0-53.0) % MCV 82.5 (80.0-100.0) fL MCH 26.7 (25.0-35.0) pg MCHC 32.4 (31.0-37.0) g/dL RDW 14.9 (11.5-15.5) % Plt Count 214 (150-450) k/uL MPV 8.3 Neutrophils % 71 % Lymphocytes % 16 % Monocytes % 8 % Eosinophils % 2 % Basophils % 0 % Neutrophils # 5.7 (1.3-7.7) k/uL Lymphocytes # 1.3 (1.0-4.8) k/uL Monocytes # 0.6 (0-1.0) k/uL Eosinophils # 0.2 (0-0.7) k/uL Basophils # 0.0 (0-0.2) k/uL Sodium 137 (137-145) mmol/L Potassium 4.0 (3.5-5.1) mmol/L Chloride 102 (98-107) mmol/L Carbon Dioxide 28 (22-30) mmol/L Anion Gap 7 mmol/L BUN 21 H (9-20) mg/dL Creatinine 1.00 (0.66-1.25) mg/dL Est GFR (CKD-EPI)AfAm >90 (>60 ml/min/1.73 sqM) Est GFR (CKD-EPI)NonAf 82 (>60 ml/min/1.73 sqM) Glucose 412 H (74-99) mg/dL Plasma Lactic Acid Oskar (0.7-2.0) mmol/L Calcium 8.4 (8.4-10.2) mg/dL Magnesium 1.8 (1.6-2.3) mg/dL Total Bilirubin 1.0 (0.2-1.3) mg/dL AST 33 (17-59) U/L ALT 18 (4-49) U/L Alkaline Phosphatase 123 (38-126) U/L Troponin I (0.000-0.034) ng/mL Total Protein 7.5 (6.3-8.2) g/dL Albumin 3.7 (3.5-5.0) g/dL Urine Color Colorless Urine Appearance Clear (Clear) Urine pH 6.5 (5.0-8.0) Ur Specific Section 1.017 (1.001-1.035) Urine Protein 3+ H (Negative) Urine Glucose (UA) 4+ H (Negative) Urine Ketones Negative (Negative) Urine Blood Small H (Negative) Urine Nitrite Negative (Negative) Urine Bilirubin Negative (Negative) Urine Urobilinogen <2.0 (<2.0) mg/dL Ur Leukocyte Esterase Negative (Negative) Urine RBC 2 (0-5) /hpf Urine WBC 1 (0-5) /hpf Influenza Type A (PCR) (Not Detectd) Influenza Type B (PCR) (Not Detectd) RSV (PCR) (Not Detectd) SARS-CoV-2 (PCR) (Not Detectd) 03/30/23 03/30/23 03/30/23 Range/Units 11:55 11:55 11:55 WBC (3.8-10.6) k/uL RBC (4.30-5.90) m/uL Hgb (13.0-17.5) gm/dL Hct (39.0-53.0) % MCV (80.0-100.0) fL MCH (25.0-35.0) pg MCHC (31.0-37.0) g/dL RDW (11.5-15.5) % Plt Count (150-450) k/uL MPV Neutrophils % % Lymphocytes % % Monocytes % % Eosinophils % % Basophils % % Neutrophils # (1.3-7.7) k/uL Lymphocytes # (1.0-4.8) k/uL Monocytes # (0-1.0) k/uL Eosinophils # (0-0.7) k/uL Basophils # (0-0.2) k/uL Sodium (137-145) mmol/L Potassium (3.5-5.1) mmol/L Chloride (98-107) mmol/L Carbon Dioxide (22-30) mmol/L Anion Gap mmol/L BUN (9-20) mg/dL Creatinine (0.66-1.25) mg/dL Est GFR (CKD-EPI)AfAm (>60 ml/min/1.73 sqM) Est GFR (CKD-EPI)NonAf (>60 ml/min/1.73 sqM) Glucose (74-99) mg/dL Plasma Lactic Acid Oskar 1.9 (0.7-2.0) mmol/L Calcium (8.4-10.2) mg/dL Magnesium (1.6-2.3) mg/dL Total Bilirubin (0.2-1.3) mg/dL AST (17-59) U/L ALT (4-49) U/L Alkaline Phosphatase (38-126) U/L Troponin I 0.033 (0.000-0.034) ng/mL Total Protein (6.3-8.2) g/dL Albumin (3.5-5.0) g/dL Urine Color Urine Appearance (Clear) Urine pH (5.0-8.0) Ur Specific Section (1.001-1.035) Urine Protein (Negative) Urine Glucose (UA) (Negative) Urine Ketones (Negative) Urine Blood (Negative) Urine Nitrite (Negative) Urine Bilirubin (Negative) Urine Urobilinogen (<2.0) mg/dL Ur Leukocyte Esterase (Negative) Urine RBC (0-5) /hpf Urine WBC (0-5) /hpf Influenza Type A (PCR) Not Detected (Not Detectd) Influenza Type B (PCR) Not Detected (Not Detectd) RSV (PCR) Not Detected (Not Detectd) SARS-CoV-2 (PCR) Not Detected (Not Detectd) - Radiology Data Radiology results: report reviewed, image reviewed Disposition Clinical Impression: Fall, Dizziness, Vertigo Disposition: HOME SELF-CARE Instructions (If sedation given, give patient instructions): Vertigo (ED), Dizziness (ED) Additional Instructions: Return to the emergency department with any new, worsening, or concerning symp toms. Make sure that you move around slowly. You can take the meclizine up to 4 times daily as needed for the feeling of dizziness. Follow up with your primary care provider in 1-2 days. Prescriptions: Meclizine [Antivert] 25 mg PO Q6H PRN #30 tab PRN Reason: Vertigo Is patient prescribed a controlled substance at d/c from ED?: No Referrals: Kelly Montesinos MD [Primary Care Provider] - 1-2 days Time of Disposition: 14:16
[2023-03-30 12:11] LABS: Basophils % (A) 0 %; Eosinophils # (A) 0.2 k/uL (0-0.7); Eosinophils % (A) 2 %; HCT 46.3 % (39.0-53.0); Lymphocytes # (A) 1.3 k/uL (1.0-4.8); Lymphocytes % (A) 16 %; MCH 26.7 pg (25.0-35.0); MCHC 32.4 g/dL (31.0-37.0); MCV 82.5 fL (80.0-100.0); Mean Platelet Volume 8.3; Monocytes # (A) 0.6 k/uL (0-1.0); Monocytes % (A) 8 %; Neutrophils # (A) 5.7 k/uL (1.3-7.7); Neutrophils % (A) 71 %; Platelet Count 214 k/uL (150-450); RBC 5.62 m/uL (4.30-5.90); RDW 14.9 % (11.5-15.5)
[2023-03-30 12:30] LABS: ALT 18 U/L (4-49); African American GFR (CKD) >90 (>60 ml/min/1.73 sqM); Anion Gap 7 mmol/L; Blood Urea Nitrogen 21 mg/dL (9-20); Calcium 8.4 mg/dL (8.4-10.2); Carbon Dioxide 28 mmol/L (22-30); Chloride 102 mmol/L (98-107); Glucose 412 mg/dL (74-99); Non-African American GFR(CKD) 82 (>60 ml/min/1.73 sqM); Sodium 137 mmol/L (137-145)
[2023-03-30 12:32] LABS: AST 33 U/L (17-59); Albumin 3.7 g/dL (3.5-5.0); Alkaline Phosphatase 123 U/L (38-126); Magnesium 1.8 mg/dL (1.6-2.3); Total Protein 7.5 g/dL (6.3-8.2)
[2023-03-30 12:35] LABS: Appearance,Urine Clear (Clear); Bilirubin,Urine Negative (Negative); Blood,Urine Small (Negative); Color,Urine Colorless; Glucose,Urine (UA) 4+ (Negative); Ketones,Urine Negative (Negative); Leukocyte Esterase,Urine Negative (Negative); Nitrite,Urine Negative (Negative); PH, Urine 6.5 (5.0-8.0); Protein,Urine 3+ (Negative); RBC,Urine 2 /hpf (0-5); Specific Gravity,Urine 1.017 (1.001-1.035); Urobilinogen,Urine <2.0 mg/dL (<2.0); WBC,Urine 1 /hpf (0-5)
--- NOTE | 2023-03-30 13:12 | XR ---
EXAMINATION TYPE: XR chest 2V DATE OF EXAM: 03/30/2023 COMPARISON: 04/02/2022 TECHNIQUE: PA and lateral views submitted. HISTORY: Dizziness FINDINGS: The lungs are clear and there is no pneumothorax, pleural effusion, or focal pneumonia. Heart is enl arged status post median sternotomy. There is a coarsened interstitium. There is AC joint arthropathy . Underlying COPD.. Osseous structures demonstrate hypertrophic and degenerative changes of the spine . Epicardial lead and coronary stenting. IMPRESSION: 1. COPD and cardiomegaly. Mild central interstitial prominence may represent chronic interstitial shay g disease or chronic mild venous congestion.
--- NOTE | 2023-03-30 13:14 | CT ---
EXAMINATION TYPE: CT brain cspine wo con CT DLP: 1317.6 mGycm, Automated exposure control for dose reduction was used. DATE OF EXAM: 03/30/2023 12:59 PM COMPARISON: None. CLINICAL INDICATION:Male, 57 years old with history of Head injury, on blood thinners; Fall on blood thinners TECHNIQUE: Brain: Multiple axial CT images of the brain were obtained without IV contrast. Cspine: Axial CT images from the skull base to the inferior aspect of T2 we obtained without intraven ous contrast. Coronal and sagittal reformatted images were also reviewed. FINDINGS: Brain: Extra-axial spaces: No abnormal extra-axial fluid collections. Ventricular system: Within normal limits Cerebral parenchyma: Remote injury to the left inferior occipital lobe. No acute intraparenchymal hem orrhage or mass effect. The baig-white junction is well differentiated. Cerebellum: Unremarkable. Mass effect: No evidence of midline shift. Intracranial vasculature: unremarkable Soft tissues: Normal. Elongated styloid processes bilaterally. Calvarium/osseous structures: No depressed skull fracture. Paranasal sinuses and mastoid air cells: Mild scattered mucosal thickening and or secretions. Visualized orbits: Orbital contents are intact. Cervical spine: Fracture: None. Osseous structures: Unremarkable Vertebral alignment: Within normal limits. Spinal canal/Neural Foramina: No evidence of significant spinal canal narrowing. No evidence for sign ificant neural foraminal stenosis. Neck soft tissues: Prevertebral soft tissues are within normal limits. Other: The airway is patent. The lung apices are clear. IMPRESSION: 1. No acute intracranial process. 2. Remote appearing injury in the left inferior occipital lobe injury. 3. No evidence of cervical spine fracture. 4. Mild to moderate multilevel degenerative disc disease.
[2023-03-30 13:35] VITALS: BP 188/107; PULSE 83; RESP 19; TEMP 98.8
[2023-03-30] MEDS ORDERED: ONDANSETRON 4 MG ODT STARTER PACK 2 TAB BTL PO STA (14:17)
== END 2023-03-30 14:26 | disposition home or self-care (01) ==
LOC: EC 11:02
DX: S06.9X0A Unspecified intracranial injury without loss of consciousness, initial encounter (principal); I51.7 Cardiomegaly; J44.9 Chronic obstructive pulmonary disease, unspecified; I48.91 Unspecified atrial fibrillation; J45.909 Unspecified asthma, uncomplicated; I25.10 Atherosclerotic heart disease of native coronary artery without angina pectoris; E11.9 Type 2 diabetes mellitus without complications; I10 Essential (primary) hypertension; I25.2 Old myocardial infarction; G47.30 Sleep apnea, unspecified; E78.5 Hyperlipidemia, unspecified; Z79.01 Long term (current) use of anticoagulants; Z79.899 Other long term (current) drug therapy; Z79.4 Long term (current) use of insulin; Z79.84 Long term (current) use of oral hypoglycemic drugs; Z91.09 Other allergy status, other than to drugs and biological substances; Z88.8 Allergy status to other drugs, medicaments and biological substances; Z20.822 Contact with and (suspected) exposure to COVID-19; W01.190A Fall on same level from slipping, tripping and stumbling with subsequent striking against furniture, initial encounter
CPT/HCPCS: 36415; 93005; 80053; 83605; 83735; 84484; 85025; 81001; 87636; 71046; 72125; 70450; 99285; 96360; S0119

== ENCOUNTER 2023-06-04 20:31 | Inpatient (IN) | payer MEDICARE ==
[2023-06-04] MEDS: SODIUM CHLORIDE 0.9% 1,000 ML IV STA (21:10)
[2023-06-04 21:31] LABS: Anisocytosis Slight; Basophils # (A) 0.1 k/uL (0-0.2); Basophils % (A) 1 %; Eosinophils # (A) 0.3 k/uL (0-0.7); Eosinophils % (A) 4 %; HCT 28.3 % (39.0-53.0); Hypochromasia Marked; Lymphocytes # (A) 1.4 k/uL (1.0-4.8); Lymphocytes % (A) 18 %; MCH 24.1 pg (25.0-35.0); MCHC 29.8 g/dL (31.0-37.0); MCV 80.9 fL (80.0-100.0); Mean Platelet Volume 9.1; Microcytosis Slight; Monocytes # (A) 0.7 k/uL (0-1.0); Monocytes % (A) 9 %; Neutrophils # (A) 5.1 k/uL (1.3-7.7); Neutrophils % (A) 65 %; Platelet Count 380 k/uL (150-450); Poikilocytosis Moderate; RBC 3.51 m/uL (4.30-5.90); RDW 17.2 % (11.5-15.5); WBC 7.8 k/uL (3.8-10.6)
[2023-06-04 21:32] LABS: ALT 73 U/L (4-49); AST 45 U/L (17-59); African American GFR (CKD) 47 (>60 ml/min/1.73 sqM); Albumin 3.3 g/dL (3.5-5.0); Alkaline Phosphatase 95 U/L (38-126); Anion Gap 10 mmol/L; Blood Urea Nitrogen 42 mg/dL (9-20); Calcium 8.3 mg/dL (8.4-10.2); Carbon Dioxide 19 mmol/L (22-30); Chloride 107 mmol/L (98-107); Glucose 281 mg/dL (74-99); Non-African American GFR(CKD) 41 (>60 ml/min/1.73 sqM); Potassium 4.8 mmol/L (3.5-5.1); Sodium 136 mmol/L (137-145); Total Protein 6.6 g/dL (6.3-8.2)
[2023-06-04 21:53] LABS: HGB 8.4 gm/dL (13.0-17.5)
[2023-06-04] MEDS: HYDROcodone/APAP 7.5-325MG 1 EACH TAB PO ONE (22:14)
[2023-06-04] MEDS: LIDOCAINE 1% INJ 10MG/ML (20 ML MDV) SQ ONE (22:36)
--- NOTE | 2023-06-04 22:56 | CT ---
EXAMINATION TYPE: CT brain cspine wo con CT DLP: COMBINED 1037.9 mGycm, Automated exposure control for dose reduction was used. DATE OF EXAM: 06/04/2023 9:49 PM COMPARISON: CT brain C-spine 03/30/2023 CLINICAL INDICATION:Male, 58 years old with history of fall; PASSED OUT HITTING FOREHEAD ON THE FLOOR TECHNIQUE: Brain: Multiple axial CT images of the brain were obtained without IV contrast. Cspine: Axial CT images from the skull base to the inferior aspect of T2 we obtained without intraven ous contrast. Coronal and sagittal reformatted images were also reviewed. FINDINGS: Brain: Extra-axial spaces: No abnormal extra-axial fluid collections. Basal cisterns are patent. Ventricular system: Appear dilated, likely related to brain volume loss but may be slightly out of pr oportion to the degree of atrophy/sulcal prominence; this can be seen with superimposed NPH. Appearan ce is similar to prior. Cerebral parenchyma: No increased attenuation to suggest acute intraparenchymal hemorrhage. The gra y-white matter interface appears maintained. Moderate generalized brain atrophy. Scattered hypoatte nuating areas are seen within the cerebral white matter, nonspecific but most often seen with chronic microvascular ischemic changes; mild in degree. Stable appearing area of hypoattenuation in the pos terior inferior left occipital lobe, likely encephalomalacia from remote insult. Cerebellum: No acute abnormality. Mass effect: No evidence of mass effect or midline shift. Intracranial vasculature: Atherosclerotic calcifications of the larger arteries near the skull base. Soft tissues: Soft tissue swelling suggested over the forehead, with small subcutaneous focus of gas. No radiopaque foreign body. Visualized orbits: Orbital contents appear grossly intact. Calvarium/osseous structures: No evidence of calvarial fracture. Please refer to separate facial bone CT for further description of findings. Paranasal sinuses and mastoid air cells: Lobular mucosal thickening of the bilateral maxillary sinuse s. Possible trace fluid on the left. Otherwise paranasal sinuses are clear. Mastoids are clear. MRI is more sensitive for detecting acute processes such as infarct, and may be considered if clinica lly warranted. Cervical spine: Fracture: None seen. Osseous structures, spinal canal/neural foramina: Mild to moderate multilevel degenerative disc disea se changes appear similar to the prior study. No critical stenosis is seen. The craniocervical juncti on appears intact. Vertebral alignment: No traumatic malalignment. Straightening of the normal cervical lordosis, as bef ore, can be seen with degenerative changes, pain, and/or positioning.. Neck soft tissues: No acute finding.. Calcifications noted involving the cervical carotid arteries mo stly bifurcation regions. Other: Lung apices show no acute infiltrate or pneumothorax. IMPRESSION: CT head: 1. No acute intracranial CT abnormality. 2. Moderate generalized brain atrophy. 3. Stable-appearing dilatation of the ventricles, likely sequela of brain volume loss. However the ve ntricles appear perhaps slightly dilated out of proportion to the degree of atrophy and sulcal promin ence, correlate clinically for possible superimposed NPH. 4. Small area of encephalomalacia redemonstrated in the left occipital lobe from remote insult. CT cervical spine: 1. No evidence of acute cervical spine fracture or traumatic malalignment. 2. Mild/moderate cervical spondylosis.
[2023-06-04] MEDS: amLODIPine 10 MG TAB PO STA (23:28)
[2023-06-04] MEDS: hydrALAZINE HCL 50 MG TAB PO STA (23:28)
[2023-06-05 00:36] LABS: Anisocytosis Slight; Basophils # (A) 0.1 k/uL (0-0.2); Basophils % (A) 1 %; Eosinophils # (A) 0.1 k/uL (0-0.7); Eosinophils % (A) 2 %; HCT 25.6 % (39.0-53.0); HGB 7.7 gm/dL (13.0-17.5); Hypochromasia Marked; Lymphocytes # (A) 0.9 k/uL (1.0-4.8); Lymphocytes % (A) 13 %; MCH 24.3 pg (25.0-35.0); MCHC 30.2 g/dL (31.0-37.0); MCV 80.5 fL (80.0-100.0); Mean Platelet Volume 9.3; Microcytosis Slight; Monocytes # (A) 0.6 k/uL (0-1.0); Monocytes % (A) 9 %; Neutrophils % (A) 74 %; Platelet Count 292 k/uL (150-450); Poikilocytosis Moderate; RBC 3.18 m/uL (4.30-5.90); RDW 17.3 % (11.5-15.5); WBC 6.8 k/uL (3.8-10.6)
[2023-06-05] MEDS ORDERED: NALOXONE 0.4 MG/ML 1 ML VIAL IV PRN (00:51)
--- NOTE | 2023-06-05 00:52 | ED ---
Fall HPI - General Chief Complaint: Fall Stated Complaint: fall Time Seen by Provider: 06/04/23 20:49 Source: patient, EMS Mode of arrival: EMS - History of Present Illness Initial Comments: 58-year-old male presenting for evaluation after a fall. The patient was at the grocery store when he began to feel a bit dizzy. He states that the next thing he remembers he was laying on the ground with people standing over him. He denies any loss of consciousness. Patient has not taken his Eliquis over the last 2 weeks. States that he discontinued his Eliquis a few days prior to [facility] dental work in which multiple teeth were removed, states that he has not resumed taking it because "it makes my teeth and sinuses bleed". Patient has a laceration to the forehead. States that he has been feeling a bit dizzy recently, he also admits to fatigue. No chest pain or difficulty breathing. No abdominal pain. No coffee-ground emesis or black tarry stools. No fevers or chills. - Related Data Home Medications Medication Instructions Recorded Confirmed cloNIDine HCL [Catapres] 0.1 mg PO BID 11/09/19 04/10/22 Ezetimibe [Zetia] 10 mg PO HS 12/15/20 04/10/22 Apixaban [Eliquis] 5 mg PO BID 03/09/22 04/10/22 Gabapentin 900 mg PO BID 03/09/22 04/10/22 Insulin Glargine,Hum.rec.anlog 23 unit SQ HS 03/28/22 04/10/22 [Nicol Hobbs U-100] Isosorbide Mononitrate ER [Imdur] 30 mg PO DAILY 03/28/22 04/10/22 Atorvastatin [Lipitor] 80 mg PO HS 04/09/22 04/10/22 Ergocalciferol [Vitamin D2 (1250 1,250 mcg PO WEEKLY 04/09/22 04/10/22 Mcg = [id number] Iu)] Furosemide [Lasix] 40 mg PO DAILY 04/09/22 04/10/22 INSULIN ASPART (NovoLOG) [NovoLOG 0 unit SQ ACHS 04/09/22 04/09/22 (formulary)] Ipratropium-Albuterol Nebulize 3 ml INHALATION QID 04/09/22 04/10/22 [Duoneb 0.5 mg-3 mg/3 ml Soln] Moxifloxacin HCl [Avelox] 400 mg PO DAILY 04/09/22 04/10/22 guaiFENesin [Mucinex] 600 mg PO Q12H 04/09/22 04/10/22 metFORMIN HCL 1,000 mg PO BID 04/09/22 04/10/22 predniSONE [Deltasone] 0 mg PO DIRECTED 04/09/22 04/10/22 HYDROcodone/APAP 7.5-325MG [Brightwood 1 tab PO Q6HR PRN 04/10/22 04/10/22 7.5-325] Previous Rx's Medication Instructions Recorded Metoprolol Tartrate [Lopressor] 100 mg PO BID #60 tab 04/14/19 Clopidogrel [Plavix] 75 mg PO DAILY tab 11/20/19 Budesonide-Formot 160-4.5 Mcg 2 puff INHALATION RT-BID #1 each 03/18/22 [Symbicort 160-4.5 Mcg Inhaler] Losartan Potassium [Cozaar] 100 mg PO DAILY #30 tablet 03/18/22 amLODIPine [Norvasc] 10 mg PO DAILY #30 tab 03/18/22 hydrALAZINE HCL [Apresoline] 100 mg PO TID #180 tab 03/18/22 Meclizine [Antivert] 25 mg PO Q6H PRN #30 tab 03/30/23 Allergies Allergy/AdvReac Type Severity Reaction Status Date / Time adhesive tape Allergy Severe Rash/Hives Verified 06/04/23 20:43 vancomycin Allergy Mild Head Itches Verified 06/04/23 20:43 Review of Systems ROS Statement: Those systems with pertinent positive or pertinent negative responses have been documented in the HPI. ROS Other: All systems not noted in ROS Statement are negative. Past Medical History Past Medical History: Asthma, Coronary Artery Disease (CAD), Chest Pain / Angina, Diabetes Mellitus, Deep Vein Thrombosis (DVT), Hyperlipidemia, Hypertension, Myocardial Infarction (NM), Sleep Apnea/CPAP/BIPAP Additional Past Medical History / Comment(s): Obstructive sleep apnea CPAP, bronchitis, IDDM type II, DVT L leg, cellulitis L leg 2012 cellulitis L Arm 2017, diabetic neuropathy affects feet and hands, chronic kidney disease stage II Last Myocardial Infarction Date:: 06/23/13 History of Any Multi-Drug Resistant Organisms: Acinetobacter (MDRO), MRSA Date of last positivie culture/infection: 08/2014 MDRO Source:: abdomen around navel Past Surgical History: Back Surgery, Coronary Bypass/CABG, Heart Catheterization, Heart Catheterization With Stent, Hernia Repair Additional Past Surgical History / Comment(s): Cardiac caths, PCI with stents (4total), 2006 CABG 6 vessels, spinal fusion L4-L5, fasciotomy left thigh, bilateral inguinal hernia repairs, I&D L forearm with dehisence then compartment syndrome with fasciotomy Left forearm - June 2016, teeth extraction Past Anesthesia/Blood Transfusion Reactions: No Reported Reaction Date of Last Stent Placement:: 08/28/15 Past Psychological History: No Psychological Hx Reported Smoking Status: Never smoker Past Alcohol Use History: None Reported Past Drug Use History: None Reported - Past Family History Brother(s) Additional Family Medical History / Comment(s): Patient has 1 brother and 1 sister with no major medical problems. Mother Family Medical History: Congestive Heart Failure (CHF), Diabetes Mellitus Additional Family Medical History / Comment(s): Mother at the age of 84 from with history of chronic renal disease stage. Father Family Medical History: COPD, Coronary Artery Disease (CAD), Myocardial Infarction (NM) Additional Family Medical History / Comment(s): Father of a NM at the age of 60 yrs with history of COPD. Sister(s) Family Medical History: Rheumatoid Arthritis (RA) Additional Family Medical History / Comment(s): Patient has 1 sister with no major medical problems. General Exam General appearance: alert, in no apparent distress Head exam: Present: normocephalic Expanded Head exam: Present: laceration (4 cm laceration to the forehead) Eye exam: Present: normal appearance, PERRL, EOMI Neck exam: Present: normal inspection. Absent: meningismus Respiratory exam: Present: normal lung sounds bilaterally. Absent: respiratory distress, wheezes, rales, rhonchi, stridor Cardiovascular Exam: Present: regular rate, normal rhythm, normal heart sounds. Absent: systolic murmur, diastolic murmur, rubs, gallop, clicks GI/Abdominal exam: Present: soft. Absent: distended, tenderness, guarding, rebound, rigid Neurological exam: Present: alert, oriented X3 Expanded Eye Response: (4) open spontaneously Motor Response: (6) obeys commands Verbal Response: (5) oriented Marlys Total: 15 Psychiatric exam: Present: normal affect, normal mood Course Vital Signs 06/04/23 06/04/23 06/04/23 20:40 21:47 23:06 Temperature 94.4 F L Pulse Rate 82 79 Respiratory 18 16 Rate Blood Pressure 167/112 188/119 178/120 O2 Sat by Pulse 93 L 100 Oximetry 06/04/23 06/05/23 23:59 01:00 Temperature Pulse Rate 79 82 Respiratory 19 17 Rate Blood Pressure 157/124 147/110 O2 Sat by Pulse Oximetry Procedures - Laceration Laceration #1 Consent Obtained: verbal consent Indication: laceration Site: face Size (cm): 4 Description: linear Depth: simple, single layer Anesthetic Used: lidocaine 1%, without epi Anesthesia Technique: local infiltration Pre-repair: wound explored Type of Sutures: nylon Size of Sutures: 6-0 Number of Sutures: 5 Technique: simple, interrupted Patient Tolerated Procedure: well Medical Decision Making - Medical Decision Making Was pt. sent in by a medical professional or institution (, PA, TILT WALL SUPERVISOR, urgent care, hospital, or shelter...) When possible be specific @ -No Did you speak to anyone other than the patient for history (EMS, parent, family, police, friend...)? What history was obtained from this source @ -No Did you review nursing and triage notes (agree or disagree)? Why? @ -I reviewed and agree with nursing and triage notes Were old charts reviewed (outside hosp., previous admission, EMS record, old EKG, old radiological studies, urgent care reports/EKG's, shelter records)? Report findings @ -No old charts were reviewed Differential Diagnosis (chest pain, altered mental status, abdominal pain women, abdominal pain men, vaginal bleeding, weakness, fever, dyspnea, syncope, headache, dizziness, GI bleed, back pain, seizure, CVA, palpatations, mental health, musculoskeletal)? @ -MDM Differential Dizziness: Benign paroxysmal positional Vertigo, Menieres disease, otitis media, acoustic neuroma, vertebrobasilar insufficiency, cerebellar stroke, encephalitis, hypovolemic, arrhythmia, coronary artery syndrome, anemia this is not meant to be an all-inclusive list EKG interpreted by me (3pts min.). @ -EKG shows atrial fibrillation ventricular rate 79. WV interval indeterminable. QRS 100. QT 400. QTc 434. X-rays interpreted by me (1pt min.). @ -None done CT interpreted by me (1pt min.). @ -CT brain and cervical spine shows no acute intracranial abnormality. Moderate generalized brain atrophy. Stable appearing dilatation of the ventricles, likely sequelae of brain volume loss. However the ventricles appear perhaps slightly dilated out of proportion to degree of atrophy and sulcal prominence, correlate clinically for possible superimposed NPH. Small area of encephalomalacia redemonstrated in the occipital lobe from remote insult. No e vidence of acute cervical spine fracture or traumatic malalignment. Mild/moderate cervical spondylosis CT patient pending, no obvious abnormalities seen by my interpretation U/S interpreted by me (1pt. min.). @ -None done What testing was considered but not performed or refused? (CT, X-rays, U/S, labs)? Why? @ -None What meds were considered but not given or refused? Why? @ -None Did you discuss the management of the patient with other professionals (professionals i.e. , PA, TILT WALL SUPERVISOR, lab, RT, psych nurse, social contact worker, player services representative, teacher, chief data officer, casework manager)? Give summary @ -My attending spoke with the [facility] provider on-call who accepted admission Was smoking cessation discussed for >3mins.? @ -No Was critical care preformed (if so, how long)? @ -No Were there social determinants of health that impacted care today? How? (Homelessness, low income, unemployed, alcoholism, drug addiction, transportation, low edu. Level, literacy, decrease access to med. care, [facility], rehab)? @ -No Was there de-escalation of care discussed even if they declined (Discuss DNR or withdrawal of care, Hospice)? DNR status @ -No What co-morbidities impacted this encounter? (DM, HTN, Smoking, COPD, CAD, Cancer, CVA, ARF, Chemo, Hep., AIDS, mental health diagnosis, sleep apnea, morbid obesity)? @ -None Was patient admitted / discharged? Hospital course, mention meds given and route, prescriptions, significant lab abnormalities, going to OR and other pertinent info. @ -58-year-old male presenting with chief complaint of head injury. Patient was at the store when he felt dizzy and fell. He denies loss of consciousness. He is supposed to be on Eliquis for his atrial fibrillation, however he discontinued this about 2 weeks ago prior to a dental procedure and has not resumed it. History and physical exam were conducted. Patient has a 4 cm laceration to the forehead which is repaired by myself. Creatinine 1.78 BUN 42, patient reports that he has been taking aspirin more frequently since his dental procedure. Hemoglobin 8.4, this is a drop from hemoglobin on 03/30 which was 15. Stool occult blood is negative. Repeat CBC is obtained which shows hemoglobin of 7.7, this is presumably because the patient received IV fluids. Negative CT of the brain and cervical spine. Patient notes that he has been much more tired after doing basic tasks recently. When the patient was trying to adjust his pants for rectal exam he was out of breath. The patient has a symptomatic anemia. He denies any hematochezia, melena, coffee-ground emesis. He will be admitted for symptomatic anemia with hematology consult. Patient is agreeable with this plan. I discussed this case with my attending Dr. Arreguin Undiagnosed new problem with uncertain prognosis? @ -No Drug Therapy requiring intensive monitoring for toxicity (Heparin, Nitro, Insulin, Cardizem)? @ -No Were any procedures done? @ -No Diagnosis/symptom? @ -Symptomatic anemia Acute, or Chronic, or Acute on Chronic? @ -Acute Uncomplicated (without systemic symptoms) or Complicated (systemic symptoms)? @ -Complicated Side effects of treatment? @ -No Exacerbation, Progression, or Severe Exacerbation? @ -No Poses a threat to life or bodily function? How? (Chest pain, USA, NM, pneumonia, PE, COPD, DKA, ARF, appy, cholecystitis, CVA, Diverticulitis, Homicidal, Suicidal, threat to staff... and all critical care pts) @ -Yes - Lab Data Result diagrams: 06/05/23 00:29 06/04/23 21:05 Lab Results 06/04/23 06/04/23 06/04/23 Range/Units 21:05 21:05 22:19 WBC 7.8 (3.8-10.6) k/uL RBC 3.51 L (4.30-5.90) m/uL Hgb 8.4 L D (13.0-17.5) gm/dL Hct 28.3 L (39.0-53.0) % MCV 80.9 (80.0-100.0) fL MCH 24.1 L (25.0-35.0) pg MCHC 29.8 L (31.0-37.0) g/dL RDW 17.2 H (11.5-15.5) % Plt Count 380 (150-450) k/uL MPV 9.1 Neutrophils % 65 % Lymphocytes % 18 % Monocytes % 9 % Eosinophils % 4 % Basophils % 1 % Neutrophils # 5.1 (1.3-7.7) k/uL Lymphocytes # 1.4 (1.0-4.8) k/uL Monocytes # 0.7 (0-1.0) k/uL Eosinophils # 0.3 (0-0.7) k/uL Basophils # 0.1 (0-0.2) k/uL Hypochromasia Marked Poikilocytosis Moderate Anisocytosis Slight Microcytosis Slight Sodium 136 L (137-145) mmol/L Potassium 4.8 (3.5-5.1) mmol/L Chloride 107 (98-107) mmol/L Carbon Dioxide 19 L (22-30) mmol/L Anion Gap 10 mmol/L BUN 42 H (9-20) mg/dL Creatinine 1.78 H (0.66-1.25) mg/dL Est GFR (CKD-EPI)AfAm 47 (>60 ml/min/1.73 sqM) Est GFR (CKD-EPI)NonAf 41 (>60 ml/min/1.73 sqM) Glucose 281 H (74-99) mg/dL Calcium 8.3 L (8.4-10.2) mg/dL Total Bilirubin 1.0 (0.2-1.3) mg/dL AST 45 (17-59) U/L ALT 73 H (4-49) U/L Alkaline Phosphatase 95 (38-126) U/L Total Protein 6.6 (6.3-8.2) g/dL Albumin 3.3 L (3.5-5.0) g/dL Stool Occult Blood Negative (Negative) 06/05/23 Range/Units 00:29 WBC 6.8 (3.8-10.6) k/uL RBC 3.18 L (4.30-5.90) m/uL Hgb 7.7 L (13.0-17.5) gm/dL Hct 25.6 L (39.0-53.0) % MCV 80.5 (80.0-100.0) fL MCH 24.3 L (25.0-35.0) pg MCHC 30.2 L (31.0-37.0) g/dL RDW 17.3 H (11.5-15.5) % Plt Count 292 (150-450) k/uL MPV 9.3 Neutrophils % 74 % Lymphocytes % 13 % Monocytes % 9 % Eosinophils % 2 % Basophils % 1 % Neutrophils # 5.0 (1.3-7.7) k/uL Lymphocytes # 0.9 L (1.0-4.8) k/uL Monocytes # 0.6 (0-1.0) k/uL Eosinophils # 0.1 (0-0.7) k/uL Basophils # 0.1 (0-0.2) k/uL Hypochromasia Marked Poikilocytosis Moderate Anisocytosis Slight Microcytosis Slight Sodium (137-145) mmol/L Potassium (3.5-5.1) mmol/L Chloride (98-107) mmol/L Carbon Dioxide (22-30) mmol/L Anion Gap mmol/L BUN (9-20) mg/dL Creatinine (0.66-1.25) mg/dL Est GFR (CKD-EPI)AfAm (>60 ml/min/1.73 sqM) Est GFR (CKD-EPI)NonAf (>60 ml/min/1.73 sqM) Glucose (74-99) mg/dL Calcium (8.4-10.2) mg/dL Total Bilirubin (0.2-1.3) mg/dL AST (17-59) U/L ALT (4-49) U/L Alkaline Phosphatase (38-126) U/L Total Protein (6.3-8.2) g/dL Albumin (3.5-5.0) g/dL Stool Occult Blood (Negative) Disposition Clinical Impression: Symptomatic anemia Disposition: ADMITTED IP TO THIS [facility] Condition: Fair Time of Disposition: 00:52
[2023-06-05] MEDS: PANTOPRAZOLE 40 MG/10 ML VIAL IVP SCH (01:21)
[2023-06-05] MEDS: DIPH,PERTUS(ACELL)TETVAC-LF 0.5 ML VIAL IM ONE (03:39)
[2023-06-05] MEDS ORDERED: ACETAMINOPHEN TAB 325 MG TAB PO PRN (03:42)
[2023-06-05] MEDS: HYDROcodone/APAP 7.5-325MG 1 EACH TAB PO PRN (04:45)
--- NOTE | 2023-06-05 10:55 | P.HPIM ---
History of Present Illness This is a 58 years old male with past medical history of triple-vessel coronary artery disease, atrial fibrillation on Eliquis at home, hypertension, hyperlipidemia. 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 He is on aspirin and Tylenol as well. He presents because of syncope. Patient has been having dizziness for the last few days, immediately after he had to do his job done last Wednesday He states he has bad teeth and he has bleeding gums for the last 2 weeks so he stopped his Eliquis, his dentist took all his teeth out about 25 of them last Wednesday so he can get dentures during the procedure and immediately after he had some bleeding from his gums and sinuses, amount more than a cup and since then he has been having dizziness especially when he walks yesterday he was going to the [employer] he was feeling dizzy and after couple minutes of dizziness He finds himself on the floor with bleeding from his forehead where stitches were placed here in the emergency room and he has nose trauma. So he was sent to the emergency room Patient currently lying in bed fully awake and oriented, he has bandage in his forehead, little tenderness in his nose but there is no obvious bruise. All his teeth are missing but there is no obvious wound or active bleeding currently He denies abdominal pain vomiting diarrhea, no chest pain or dyspnea or coughing. No headache weakness or numbness. No significant dizziness right now He denies smoking alcohol and illicit drugs Of note patient stopped his Eliquis 2 weeks ago when he started having bleeding gums. 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 Also denies any blood in the stool or black stool. No vomiting blood. No bleeding from anywhere else and occult blood in the stool was negative Patient hemodynamically stable Hemoglobin dropped with from baseline 10-12 down to 8.4 on admission and currently 7.7 His creatinine went up to 1.7 with baseline 0.9-1.2. Rest of BMP and liver enzymes were unremarkable He has CT of the head and neck which showing moderate atrophy with bilateral ventricular dilatation secondary to atrophy but cannot rule out normal pressure hydrocephalus EKG showing A-fib with a rate of 79, T wave inversion in the inferior leads which is seen in the old EKG. However there is a new T wave inversion in V5 V6 not seen and he KG 2 months ago Patient had cardiac cath about a year ago showing severe triple-vessel coronary artery disease Review of Systems Review of systems CONSTITUTIONAL: No fever, no malaise, no fatigue. HEENT: No recent visual problems or hearing problems. Denied any sore throat. CARDIOVASCULAR: No orthopnea, PND, no palpitations, no syncope. PULMONARY: No shortness of breath, no cough, no hemoptysis. GASTROINTESTINAL: No diarrhea, no nausea, no vomiting, no abdominal pain. Normoactive bowel sounds. NEUROLOGICAL: No headaches, no weakness, no numbness. HEMATOLOGICAL: No petechiae, no bruises GENITOURINARY: Denies any burning micturition, frequency, or urgency. MUSCULOSKELETAL/RHEUMATOLOGICAL: Denies any joint pain, swelling, or any muscle pain. ENDOCRINE: Denies any polyuria or polydipsia. Past Medical History Past Medical History: Asthma, Coronary Artery Disease (CAD), Chest Pain / Angina, Diabetes Mellitus, Deep Vein Thrombosis (DVT), Hyperlipidemia, Hypertension, Myocardial Infarction (LA), Sleep Apnea/CPAP/BIPAP Additional Past Medical History / Comment(s): Obstructive sleep apnea CPAP, bronchitis, IDDM type II, DVT L leg, cellulitis L leg 2012 cellulitis L Arm 2017, diabetic neuropathy affects feet and hands, chronic kidney disease stage II Last Myocardial Infarction Date:: 06/23/13 History of Any Multi-Drug Resistant Organisms: Acinetobacter (MDRO), MRSA Date of last positivie culture/infection: 08/2014 MDRO Source:: abdomen around navel Past Surgical History: Back Surgery, Coronary Bypass/CABG, Heart Catheterization, Heart Catheterization With Stent, Hernia Repair Additional Past Surgical History / Comment(s): Cardiac caths, PCI with stents (4total), 2006 CABG 6 vessels, spinal fusion L4-L5, fasciotomy left thigh, bilateral inguinal hernia repairs, I&D L forearm with dehisence then compartment syndrome with fasciotomy Left forearm - June 2016, teeth extraction Past Anesthesia/Blood Transfusion Reactions: No Reported Reaction Date of Last Stent Placement:: 08/28/15 Past Psychological History: No Psychological Hx Reported Smoking Status: Never smoker Past Alcohol Use History: None Reported Past Drug Use History: None Reported - Past Family History Brother(s) Additional Family Medical History / Comment(s): Patient has 1 brother and 1 sister with no major medical problems. Mother Family Medical History: Congestive Heart Failure (CHF), Diabetes Mellitus Additional Family Medical History / Comment(s): Mother at the age of 84 from with history of chronic renal disease stage. Father Family Medical History: COPD, Coronary Artery Disease (CAD), Myocardial Infarction (LA) Additional Family Medical History / Comment(s): Father of a LA at the age of 60 yrs with history of COPD. Sister(s) Family Medical History: Rheumatoid Arthritis (RA) Additional Family Medical History / Comment(s): Patient has 1 sister with no major medical problems. Medications and Allergies Home Medications Medication Instructions Recorded Confirmed Type Metoprolol Tartrate [Lopressor] 100 mg PO BID #60 tab 04/14/19 04/10/22 Rx cloNIDine HCL [Catapres] 0.1 mg PO BID 11/09/19 04/10/22 History Clopidogrel [Plavix] 75 mg PO DAILY tab 11/20/19 04/10/22 Rx Ezetimibe [Zetia] 10 mg PO HS 12/15/20 04/10/22 History Apixaban [Eliquis] 5 mg PO BID 03/09/22 04/10/22 History Gabapentin 900 mg PO BID 03/09/22 04/10/22 History Budesonide-Formot 160-4.5 Mcg 2 puff INHALATION RT-BID #1 each 03/18/22 04/10/22 Rx [Symbicort 160-4.5 Mcg Inhaler] Losartan Potassium [Cozaar] 100 mg PO DAILY #30 tablet 03/18/22 04/10/22 Rx amLODIPine [Norvasc] 10 mg PO DAILY #30 tab 03/18/22 04/10/22 Rx hydrALAZINE HCL [Apresoline] 100 mg PO TID #180 tab 03/18/22 04/10/22 Rx Insulin Glargine,Hum.rec.anlog 23 unit SQ HS 03/28/22 04/10/22 History [Basaglar Kwikpen U-100] Isosorbide Mononitrate ER [Imdur] 30 mg PO DAILY 03/28/22 04/10/22 History Atorvastatin [Lipitor] 80 mg PO HS 04/09/22 04/10/22 History Ergocalciferol [Vitamin D2 (1250 1,250 mcg PO WEEKLY 04/09/22 04/10/22 History Mcg = 40062 Iu)] Furosemide [Lasix] 40 mg PO DAILY 04/09/22 04/10/22 History INSULIN ASPART (NovoLOG) [NovoLOG 0 unit SQ ACHS 04/09/22 04/09/22 History (formulary)] Ipratropium-Albuterol Nebulize 3 ml INHALATION QID 04/09/22 04/10/22 History [Duoneb 0.5 mg-3 mg/3 ml Soln] Moxifloxacin HCl [Avelox] 400 mg PO DAILY 04/09/22 04/10/22 History guaiFENesin [Mucinex] 600 mg PO Q12H 04/09/22 04/10/22 History metFORMIN HCL 1,000 mg PO BID 04/09/22 04/10/22 History predniSONE [Deltasone] 0 mg PO DIRECTED 04/09/22 04/10/22 History HYDROcodone/APAP 7.5-325MG [[place] 1 tab PO Q6HR PRN 04/10/22 04/10/22 History 7.5-325] Meclizine [Antivert] 25 mg PO Q6H PRN #30 tab 03/30/23 Rx Allergies Allergy/AdvReac Type Severity Reaction Status Date / Time adhesive tape Allergy Severe Rash/Hives Verified 06/04/23 20:43 vancomycin Allergy Mild Head Itches Verified 06/04/23 20:43 Physical Exam Vitals: Vital Signs Temp Pulse Pulse Resp BP BP Pulse Ox 06/05/23 08:00 98.0 F 86 17 150/87 97 06/05/23 06:00 84 18 150/98 95 06/05/23 05:00 82 18 145/94 06/05/23 03:00 80 18 145/89 06/05/23 01:00 82 17 147/110 06/04/23 23:59 79 19 157/124 06/04/23 23:06 178/120 06/04/23 21:47 79 16 188/119 100 06/04/23 20:40 94.4 F L 82 18 167/112 93 L Intake and Output 06/04/23 06/05/23 06/05/23 22:59 06:59 14:59 Other: Weight 72.575 kg -GENERAL: The patient is alert and oriented x3, not in any acute distress. Well developed, well nourished. Forehead wound, with stitches. Dressing in place. absent teeth both upper and lower with no evidence of active bleeding or wounds HEENT: Pupils are round and equally reacting to light. EOMI. No scleral icterus. No conjunctival pallor. Normocephalic, atraumatic. No pharyngeal erythema. No thyromegaly. CARDIOVASCULAR: S1 and S2 present. No murmurs, rubs, or gallops. PULMONARY: Chest is clear to auscultation, no wheezing , no crackles. ABDOMEN: Soft, nontender, nondistended, normoactive bowel sounds. No palpable organomegaly. MUSCULOSKELETAL: No joint swelling or deformity. EXTREMITIES: No cyanosis, clubbing, or pedal edema. NEUROLOGICAL: Gross neurological examination did not reveal any focal deficits. SKIN: No rashes. no petechiae. Results CBC & Chem 7: 06/05/23 00:29 06/04/23 21:05 Labs: Abnormal Lab Results - Last 24 Hours (Table) 06/04/23 06/04/23 06/05/23 Range/Units 21:05 21:05 00:29 RBC 3.51 L 3.18 L (4.30-5.90) m/uL Hgb 8.4 L D 7.7 L (13.0-17.5) gm/dL Hct 28.3 L 25.6 L (39.0-53.0) % MCH 24.1 L 24.3 L (25.0-35.0) pg MCHC 29.8 L 30.2 L (31.0-37.0) g/dL RDW 17.2 H 17.3 H (11.5-15.5) % Lymphocytes # 0.9 L (1.0-4.8) k/uL Sodium 136 L (137-145) mmol/L Carbon Dioxide 19 L (22-30) mmol/L BUN 42 H (9-20) mg/dL Creatinine 1.78 H (0.66-1.25) mg/dL Glucose 281 H (74-99) mg/dL Calcium 8.3 L (8.4-10.2) mg/dL ALT 73 H (4-49) U/L Albumin 3.3 L (3.5-5.0) g/dL Assessment and Plan Assessment: Syncope, rule out orthostatic hypotension Anemia, acute on chronic Acute blood loss anemia Trauma to the forehead and nose secondary to fall secondary to above S/p removal of all of his teeth due to bad hygiene. Plan for receiving denture Acute kidney injury on chronic kidney disease stage III History of coronary artery disease involving triple-vessel Atrial fibrillation on Eliquis at home Hypertension Hyperlipidemia Plan: Occult blood in stool is negative suspicion of GI bleed is low. CT of the brain is negative. Most likely patient bled from his teeth and his trauma Dizziness could be related to orthostatic hypotension, we are going to check orthostatic vitals Continue with IV fluid Cardiology team consult ENT consult Check orthostatic vitals Labs and medication were reviewed.. Continue same treatment. Continue with symptomatic treatment. Resume home medication. Monitor labs and vitals. DVT and GI prophylaxis. Further recommendations as per clinical course of the patient DVT prophylaxis: No anticoagulation for severe anemia symptomatic GI Prophylaxis: Ppi Prognosis is guarded
[2023-06-05] MEDS: SODIUM CHLORIDE 0.9% 1,000 ML IV SCH (11:11)
[2023-06-05] MEDS ORDERED: DEXTROSE 50% SYRINGE 50 ML IVP PRN ×2 (14:33)
[2023-06-05 15:15] LABS: Glucose,Whole Blood 404 mg/dL (70-110)
[2023-06-05] MEDS: AMOXICILLIN 500 MG CAP PO SCH (15:40)
[2023-06-05] MEDS: INSULIN ASPART (NovoLOG) 100 UNIT/ML VIAL SQ SCH (15:40)
[2023-06-05] MEDS: carvediloL 12.5 MG TAB PO SCH (20:49)
[2023-06-05 20:52] LABS: Glucose,Whole Blood 156 mg/dL (70-110)
[2023-06-05] MEDS: INSULIN DETEMIR (LEVEMIR) 100 UNIT/ML SYR SQ SCH (21:24)
[2023-06-06 06:25] LABS: Glucose,Whole Blood 127 mg/dL (70-110)
[2023-06-06] MEDS: ATORVASTATIN 80 MG TAB PO SCH (08:24)
[2023-06-06] MEDS: LOSARTAN 50 MG TAB PO SCH (08:24)
[2023-06-06] MEDS: FUROSEMIDE 40 MG TAB PO SCH (08:24)
[2023-06-06] MEDS: EZETIMIBE 10 MG TAB PO SCH (08:24)
[2023-06-06] MEDS: amLODIPine 5 MG TAB PO SCH (08:25)
[2023-06-06 08:37] LABS: Anisocytosis Slight; HCT 25.1 % (39.0-53.0); HGB 7.2 gm/dL (13.0-17.5); Hypochromasia Marked; MCH 23.9 pg (25.0-35.0); MCHC 28.5 g/dL (31.0-37.0); Mean Platelet Volume 9.1; Platelet Count 240 k/uL (150-450); Poikilocytosis Slight; RBC 2.99 m/uL (4.30-5.90); RDW 17.2 % (11.5-15.5); WBC 4.8 k/uL (3.8-10.6)
--- NOTE | 2023-06-06 09:38 | P.PN ---
Subjective This is a 58 years old male with past medical history of triple-vessel coronary artery disease, atrial fibrillation on Eliquis at home, hypertension, hyperlipidemia. 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 He is on aspirin and Tylenol as well. He presents because of syncope. Patient has been having dizziness for the last few days, immediately after he had to do his job done last Wednesday He states he has bad teeth and he has bleeding gums for the last 2 weeks so he stopped his Eliquis, his dentist took all his teeth out about 25 of them last Wednesday so he can get dentures during the procedure and immediately after he had some bleeding from his gums and sinuses, amount more than a cup and since then he has been having dizziness especially when he walks yesterday he was going to the [employer] he was feeling dizzy and after couple minutes of dizziness He finds himself on the floor with bleeding from his forehead where stitches were placed here in the emergency room and he has nose trauma. So he was sent to the emergency room Patient currently lying in bed fully awake and oriented, he has bandage in his forehead, little tenderness in his nose but there is no obvious bruise. All his teeth are missing but there is no obvious wound or active bleeding currently He denies abdominal pain vomiting diarrhea, no chest pain or dyspnea or cough ing. No headache weakness or numbness. No significant dizziness right now He denies smoking alcohol and illicit drugs Of note patient stopped his Eliquis 2 weeks ago when he started having bleeding gums. 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 Also denies any blood in the stool or black stool. No vomiting blood. No bleeding from anywhere else and occult blood in the stool was negative Patient hemodynamically stable Hemoglobin dropped with from baseline 10-12 down to 8.4 on admission and currently 7.7 His creatinine went up to 1.7 with baseline 0.9-1.2. Rest of BMP and liver enzymes were unremarkable He has CT of the head and neck which showing moderate atrophy with bilateral ventricular dilatation secondary to atrophy but cannot rule out normal pressure hydrocephalus EKG showing A-fib with a rate of 79, T wave inversion in the inferior leads whic h is seen in the old EKG. However there is a new T wave inversion in V5 V6 not seen and he KG 2 months ago Patient had cardiac cath about a year ago showing severe triple-vessel coronary artery disease 06/06/2023 patient awake alert. Complaining of from the distal headache and dizziness Walking is fine No more bleeding from the gum Hemoglobin 7.2 Start iron pills Transfuse if hemoglobin less than 7 Cardiology consult evaluated the patient pending their note per staff patient can be downgraded to [facility] Speech swallow evaluation is requested and nutrition consult Patient continued on amoxicillin for his teeth procedure per to hospitalization for 3 more days Continue with normal saline 75 mL/h Currently Eliquis and aspirin on hold later by tying machine operator Review of systems CONSTITUTIONAL: No fever, no malaise, no fatigue. HEENT: No recent visual problems or hearing problems. Denied any sore throat. MUSCULOSKELETAL/RHEUMATOLOGICAL: Denies any joint pain, swelling, or any muscle pain. ENDOCRINE: Denies any polyuria or polydipsia. Active Medications Generic Name Dose Route Start Last Admin Trade Name Freq PRN Reason Stop Dose Admin Acetaminophen 650 mg 06/05/23 03:42 Acetaminophen Tab 325 Mg Tab PO Q4HR PRN Fever and/ or Pain Hydrocodone Bitart/Acetaminophen 1 each 06/05/23 03:42 06/06/23 04:00 Hydrocodone/Apap 7.5-325mg 1 Each Tab PO 1 each Q6HR PRN Administration Pain Amlodipine Besylate 5 mg 06/06/23 09:00 06/06/23 08:25 Amlodipine 5 Mg Tab PO 5 mg DAILY INDERJIT Administration Amoxicillin 500 mg 06/05/23 14:45 06/06/23 06:17 Amoxicillin 500 Mg Cap PO 06/09/23 14:46 500 mg Q8H INDERJIT Administration Protocol Atorvastatin Calcium 80 mg 06/06/23 09:00 06/06/23 08:24 Atorvastatin 80 Mg Tab PO 80 mg DAILY INDERJIT Administration Carvedilol 25 mg 06/05/23 21:00 06/06/23 08:24 Carvedilol 12.5 Mg Tab PO 25 mg BID INDERJIT Administration Dextrose/Water 25 ml 06/05/23 14:33 Dextrose 50% Syringe 50 Ml IVP PER PROTOCOL PRN Hypoglycemia Protocol Dextrose/Water 50 ml 06/05/23 14:33 Dextrose 50% Syringe 50 Ml IVP PER PROTOCOL PRN Hypoglycemia Protocol Ezetimibe 10 mg 06/06/23 09:00 06/06/23 08:24 Ezetimibe 10 Mg Tab PO 10 mg DAILY INDERJIT Administration Furosemide 40 mg 06/06/23 09:00 06/06/23 08:24 Furosemide 40 Mg Tab PO 40 mg DAILY INDERJIT Administration Sodium Chloride 1,000 mls @ 75 mls/hr 06/05/23 11:00 06/06/23 04:00 Saline 0.9% IV 75 mls/hr .[id number] INDERJIT Administration Insulin Aspart 0 unit 06/05/23 17:30 06/06/23 06:25 Insulin Aspart (Novolog) 100 Unit/Ml Vial SQ Not Given ACHS [facility] Protocol Insulin Detemir 15 unit 06/05/23 21:00 06/05/23 21:24 Insulin Detemir (Levemir) 100 Unit/Ml Syr SQ 15 unit HS INDERJIT Administration Losartan Potassium 100 mg 06/06/23 09:00 06/06/23 08:24 Losartan 50 Mg Tab PO 100 mg DAILY INDERJIT Administration Naloxone HCl 0.2 mg 06/05/23 00:51 Naloxone 0.4 Mg/Ml 1 Ml Vial IV Q2M PRN Opioid Reversal Pantoprazole Sodium 40 mg 06/05/23 00:52 06/06/23 08:23 Pantoprazole 40 Mg/10 Ml Vial IVP 40 mg DAILY INDERJIT Administration Objective - Vital Signs Vital signs: Vital Signs Temp 98.2 F 06/06/23 08:00 Pulse 65 06/06/23 08:00 Resp 18 06/06/23 08:00 BP 106/76 06/06/23 08:00 Pulse Ox 99 06/06/23 03:44 FiO2 Intake & Output 06/05/23 06/06/23 06/06/23 18:59 06:59 18:59 Output Total 400 Balance -400 Weight 72.575 kg Output: Urine 400 Other: Voiding Method Urinal Urinal - Exam -GENERAL: The patient is alert and oriented x3, not in any acute distress. Well developed, well nourished. Forehead wound, with stitches. Dressing in place. absent teeth both upper and lower with no evidence of active bleeding or wounds HEENT: Pupils are round and equally reacting to light. EOMI. No scleral icterus. No conjunctival pallor. Normocephalic, atraumatic. No pharyngeal erythema. No thyromegaly. CARDIOVASCULAR: S1 and S2 present. No murmurs, rubs, or gallops. PULMONARY: Chest is clear to auscultation, no wheezing , no crackles. ABDOMEN: Soft, nontender, nondistended, normoactive bowel sounds. No palpable organomegaly. MUSCULOSKELETAL: No joint swelling or deformity. EXTREMITIES: No cyanosis, clubbing, or pedal edema. NEUROLOGICAL: Gross neurological examination did not reveal any focal deficits. SKIN: No rashes. no petechiae. - Labs CBC & Chem 7: 06/06/23 08:12 06/04/23 21:05 Labs: Abnormal Lab Results - Last 24 Hours (Table) 06/05/23 06/05/23 06/06/23 Range/Units 15:13 20:43 06:23 RBC (4.30-5.90) m/uL Hgb (13.0-17.5) gm/dL Hct (39.0-53.0) % MCH (25.0-35.0) pg MCHC (31.0-37.0) g/dL RDW (11.5-15.5) % POC Glucose (mg/dL) 404 H 156 H 127 H (70-110) mg/dL 06/06/23 Range/Units 08:12 RBC 2.99 L (4.30-5.90) m/uL Hgb 7.2 L (13.0-17.5) gm/dL Hct 25.1 L (39.0-53.0) % MCH 23.9 L (25.0-35.0) pg MCHC 28.5 L (31.0-37.0) g/dL RDW 17.2 H (11.5-15.5) % POC Glucose (mg/dL) (70-110) mg/dL Assessment and Plan Assessment: Syncope, rule out orthostatic hypotension Anemia, acute on chronic Acute blood loss anemia Trauma to the forehead and nose secondary to fall secondary to above S/p removal of all of his teeth due to bad hygiene. Plan for receiving denture Acute kidney injury on chronic kidney disease stage III History of coronary artery disease involving triple-vessel Atrial fibrillation on Eliquis at home Hypertension Hyperlipidemia Plan: Occult blood in stool is negative suspicion of GI bleed is low. Most likely patient bled from his teeth and his trauma Dizziness could be related to orthostatic hypotension, secondary to above Continue with IV fluid check hemoglobin again today and if hemoglobin less than 7 then given 1 units of blood transfusion, discussed with the staff and bedside nurse Start iron pills Cardiology team consult ENT consult Labs and medication were reviewed.. Continue same treatment. Continue with symptomatic treatment. Resume home medication. Monitor labs and vitals. DVT and GI prophylaxis. Further recommendations as per clinical course of the neelam ent DVT prophylaxis: No anticoagulation for severe anemia symptomatic GI Prophylaxis: Ppi Prognosis is guarded
[2023-06-06 09:50] LABS: Band Neutrophils % 1 %; Eosinophils # (M) 0.29 k/uL (0-0.7); Lymphocytes # (M) 1.39 k/uL (1.0-4.8); Monocytes # (M) 0.48 k/uL (0-1.0); Neutrophils % (M) 54 %; Nucleated Red Blood Cells 0 /100 WBC (0-0); Polychromasia Present; RBC Fragments Present; Target Cells Present; Total Cells Counted 100
[2023-06-06] MEDS: SODIUM CHLORIDE 0.9% 500 ML 500 ML IV ONE (09:50)
[2023-06-06 09:51] LABS: Anisocytosis (M) Present; Crenated RBC Present; Hypochromasia (M) Present
[2023-06-06] MEDS: FERROUS SULFATE 325 MG TAB PO SCH (09:53)
--- NOTE | 2023-06-06 11:03 | P.CRDCN ---
History of Present Illness Consult date: 06/06/23 Consult reason: sycope, atrial fibrillation History of present illness: History of present illness: This is a 58-year-old male patient of Dr. Ga with past medical history of coronary artery disease with previous stent and CABG, persistent atrial fibrillation on Eliquis, diabetes, hypertension, hyperlipidemia, obstructive sleep apnea, prior DVT history, nicotine dependence, COPD, ischemic cardiomyopathy. We have been asked to evaluate the patient for syncope and atrial fibrillation. Patient gives history that he was at the grocery store and he started feeling dizzy, grabbed a hold of the shopping cart and the next thing he knew he was on the ground and people were standing over him. He denies having any recent vomiting no blood in his stools no black stools. He denies have any chest pain prior to this. He has had some episodes of lightheadedness dizziness recently. Patient has been off his Eliquis for the past 2 weeks as he took himself off because after extraction of teeth he was having some bleeding. Patient presented with a blood pressure of 178/120 and now 106/76. Orthostatic vital signs have been negative. Laceration closure of forehead wound was performed. Patient sustained patient is seen today in the emergency center waiting for a bed on the cardiac stepdown unit. EKG A-fib [address] of the brain and cervical spine revealed no acute intracranial abnormality and no acute cervical spine fracture or traumatic malalignment. Chronic changes noted on both. WBC 6.8, hemoglobin 7.7, platelet count 292. BUN 42 creatinine 1.78. Home cardiac medications: Amlodipine 5 mg daily, Lipitor 80 mg daily, Coreg 25 mg twice daily, Zetia 10 mg daily, Lasix 40 mg daily, hydralazine 50 mg twice daily, losartan 100 mg daily Cardiac catheterization performed 04/10/2022 revealed severe triple-vessel disease. Patent stent segment in the ramus intermedius and proximal left circumflex. Patent MAE to LAD. Patent SVG to OM. Chronically occluded SVG to the RCA and to the diagonal branch. Recommendations at the time was for medical management and restore sinus rhythm. Most recent electrocardioversion 04/2019 for atrial fibrillation Echocardiogram 03/10/2022 revealed moderate concentric left ventricular hypertro phy, EF 50-60, probably pericardial stripe. Biatrial enlargement. Mild mitral regurgitation, mild to moderate tricuspid regurgitation Exercise stress test 11/2019 was nondiagnostic due to baseline EKG abnormalities Review Of Systems: At the time of my exam: CONSTITUTIONAL: Denies fever or chills. HEENT: Denies blurred vision, vision changes, or eye pain. Denies hemoptysis CARDIOVASCULAR: Denies chest pain. Denies orthopnea. Denies PND. Denies palpitations RESPIRATORY: Denies shortness of breath. GASTROINTESTINAL: Denies abdominal pain. Denies nausea or vomiting. HEMATOLOGIC: Denies bleeding disorders. GENITOURINARY: Denies any blood in urine. SKIN: Denies pruitis. Denies rash. Physical examination: Gen: This is a 58-year-old male resting in no acute distress VS: reviewed HEENT: Head has large white gauze wrapping, normocephalic. Pupils equal, round. Sclerae is anicteric. NECK: Supple. No JVD. LUNGS: Clear to auscultation. No wheezes or rhonchi. No intercostal retractions. HEART: Regular rate and rhythm. 2/6 systolic ejection murmur. ABDOMEN: Soft No tenderness. EXTREMITIES: No pedal edema. No calf tenderness. NEUROLOGICAL: Patient is awake, alert and oriented x3. Assessment: Syncopal episode most likely etiology is related to anemia and/or acute kidney injury, unlikely to be cardiac etiology Acute kidney injury New onset anemia Accelerated hypertension Head injury with forehead laceration status postrepair Persistent atrial fibrillation Coronary artery disease with prior bypass surgery and stents Diabetes Hypertension Hyperlipidemia Ischemic cardiomyopathy COPD Sleep apnea Plan: Resume patient's home cardiac medications Patient has stopped Eliquis due to bleeding following dental extraction Obtain 2-D echocardiogram and Doppler study to assess cardiac structure and function Patient may be downgraded to [facility] floor Recommend workup for anemia and acute kidney injury Further recommendations to follow based upon clinical course Thank you kindly for this consultation. Nurse practitioner note has been reviewed, I agree with documented findings and plan of care. Patient was seen and examined. Past Medical History Past Medical History: Asthma, Coronary Artery Disease (CAD), Chest Pain / Angina, Diabetes Mellitus, Deep Vein Thrombosis (DVT), Hyperlipidemia, Hypertension, Myocardial Infarction (CO), Sleep Apnea/CPAP/BIPAP Additional Past Medical History / Comment(s): Obstructive sleep apnea CPAP, bronchitis, IDDM type II, DVT L leg, cellulitis L leg 2012 cellulitis L Arm 2018, diabetic neuropathy affects feet and hands, chronic kidney disease stage II Last Myocardial Infarction Date:: 06/23/13 History of Any Multi-Drug Resistant Organisms: Acinetobacter (MDRO), MRSA Date of last positivie culture/infection: 08/2014 MDRO Source:: abdomen around navel Past Surgical History: Back Surgery, Coronary Bypass/CABG, Heart Catheterization, Heart Catheterization With Stent, Hernia Repair Additional Past Surgical History / Comment(s): Cardiac caths, PCI with stents (4total), 2006 CABG 6 vessels, spinal fusion L4-L5, fasciotomy left thigh, bilateral inguinal hernia repairs, I&D L forearm with dehisence then compartment syndrome with fasciotomy Left forearm - June 2016, teeth extraction Past Anesthesia/Blood Transfusion Reactions: No Reported Reaction Date of Last Stent Placement:: 08/28/15 Past Psychological History: No Psychological Hx Reported Additional Psychological History / Comment(s): Pt is independent. Smoking Status: Never smoker Past Alcohol Use History: None Reported Additional Past Alcohol Use History / Comment(s): He denies any medical marijuana, marijuana, street drug use. \ Past Drug Use History: None Reported - Past Family History Brother(s) Additional Family Medical History / Comment(s): Patient has 1 brother and 1 sister with no major medical problems. Mother Family Medical History: Congestive Heart Failure (CHF), Diabetes Mellitus Additional Family Medical History / Comment(s): Mother at the age of 84 from with history of chronic renal disease stage. Father Family Medical History: COPD, Coronary Artery Disease (CAD), Myocardial Infarction (CO) Additional Family Medical History / Comment(s): Father of a CO at the age of 60 yrs with history of COPD. Sister(s) Family Medical History: Rheumatoid Arthritis (RA) Additional Family Medical History / Comment(s): Patient has 1 sister with no major medical problems. Medications and Allergies Home Medications Medication Instructions Recorded Confirmed Type Ezetimibe [Zetia] 10 mg PO DAILY 12/15/20 06/05/23 History Losartan Potassium [Cozaar] 100 mg PO DAILY #30 tablet 03/18/22 06/05/23 Rx Atorvastatin [Lipitor] 80 mg PO DAILY 04/09/22 06/05/23 History Furosemide [Lasix] 40 mg PO DAILY 04/09/22 06/05/23 History metFORMIN HCL 1,000 mg PO BID 04/09/22 06/05/23 History Acetaminophen Tab [Tylenol Tab] 500 mg PO Q8H PRN 06/05/23 06/05/23 History Amoxicillin 500 mg PO Q8H 06/05/23 06/05/23 History Insulin Aspart [NovoLOG Flexpen] 7 units SQ TID-W/MEALS 06/05/23 06/05/23 History Insulin Glargine,Hum.rec.anlog 30 units SQ DIRECTED 06/05/23 06/05/23 History [Toujeo Solostar] amLODIPine [Norvasc] 5 mg PO DAILY 06/05/23 06/05/23 History carvediloL [Coreg] 25 mg PO BID 06/05/23 06/05/23 History hydrALAZINE HCL [Apresoline] 50 mg PO BID 06/05/23 06/05/23 History Allergies Allergy/AdvReac Type Severity Reaction Status Date / Time adhesive tape Allergy Severe Rash/Hives Verified 06/05/23 11:55 vancomycin Allergy Mild Head Itches Verified 06/05/23 11:55 Physical Exam Vitals: Vital Signs Temp Pulse Pulse Pulse Pulse Pulse Resp 06/06/23 08:00 98.2 F 65 18 06/06/23 03:44 97.6 F 63 18 06/06/23 02:00 56 L 06/05/23 23:43 97.7 F 54 L 15 06/05/23 23:05 56 L 18 06/05/23 20:45 97.9 F 72 18 06/05/23 14:00 98.6 F 95 17 06/05/23 11:37 92 95 81 18 BP BP BP BP BP Pulse Ox 06/06/23 08:00 106/76 06/06/23 03:44 102/73 99 06/06/23 02:00 06/05/23 23:43 100/67 96 06/05/23 23:05 105/59 94 L 06/05/23 20:45 157/98 94 L 06/05/23 14:00 141/80 98 06/05/23 11:37 140/68 138/66 140/79 95 Intake and Output 06/05/23 06/06/23 06/06/23 22:59 06:59 14:59 Output Total 400 Balance -400 Output: Urine 400 Other: Voiding Method Urinal Weight 72.575 kg Results 06/06/23 08:12 06/04/23 21:05 Current Medications Generic Name Dose Route Start Last Admin Trade Name Freq PRN Reason Stop Dose Admin Acetaminophen 650 mg 06/05/23 03:42 Acetaminophen Tab 325 Mg Tab PO Q4HR PRN Fever and/ or Pain Hydrocodone Bitart/Acetaminophen 1 each 06/05/23 03:42 06/06/23 04:00 Hydrocodone/Apap 7.5-325mg 1 Each Tab PO 1 each Q6HR PRN Administration Pain Amlodipine Besylate 5 mg 06/06/23 09:00 06/06/23 08:25 Amlodipine 5 Mg Tab PO 5 mg DAILY INDERJIT Administration Amoxicillin 500 mg 06/05/23 14:45 06/06/23 06:17 Amoxicillin 500 Mg Cap PO 06/09/23 14:46 500 mg Q8H INDERJIT Administration Protocol Atorvastatin Calcium 80 mg 06/06/23 09:00 06/06/23 08:24 Atorvastatin 80 Mg Tab PO 80 mg DAILY INDERJIT Administration Carvedilol 25 mg 06/05/23 21:00 06/06/23 08:24 Carvedilol 12.5 Mg Tab PO 25 mg BID INDERJIT Administration Dextrose/Water 25 ml 06/05/23 14:33 Dextrose 50% Syringe 50 Ml IVP PER PROTOCOL PRN Hypoglycemia Protocol Dextrose/Water 50 ml 06/05/23 14:33 Dextrose 50% Syringe 50 Ml IVP PER PROTOCOL PRN Hypoglycemia Protocol Ezetimibe 10 mg 06/06/23 09:00 06/06/23 08:24 Ezetimibe 10 Mg Tab PO 10 mg DAILY INDERJIT Administration Furosemide 40 mg 06/06/23 09:00 06/06/23 08:24 Furosemide 40 Mg Tab PO 40 mg DAILY INDERJIT Administration Sodium Chloride 1,000 mls @ 75 mls/hr 06/05/23 11:00 06/06/23 04:00 Saline 0.9% IV 75 mls/hr .[id number] INDERJIT Administration Insulin Aspart 0 unit 06/05/23 17:30 06/06/23 06:25 Insulin Aspart (Novolog) 100 Unit/Ml Vial SQ Not Given ACHS INDERJIT Protocol Insulin Detemir 15 unit 06/05/23 21:00 06/05/23 21:24 Insulin Detemir (Levemir) 100 Unit/Ml Syr SQ 15 unit HS INDERJIT Administration Losartan Potassium 100 mg 06/06/23 09:00 06/06/23 08:24 Losartan 50 Mg Tab PO 100 mg DAILY INDERJIT Administration Naloxone HCl 0.2 mg 06/05/23 00:51 Naloxone 0.4 Mg/Ml 1 Ml Vial IV Q2M PRN Opioid Reversal Pantoprazole Sodium 40 mg 06/05/23 00:52 06/06/23 08:23 Pantoprazole 40 Mg/10 Ml Vial IVP 40 mg DAILY INDERJIT Administration Intake and Output 06/05/23 06/06/23 06/06/23 22:59 06:59 14:59 Output Total 400 Balance -400 Output: Urine 400 Other: Voiding Method Urinal Weight 72.575 kg 06/05/23 00:29 06/04/23 21:05
--- NOTE | 2023-06-06 11:47 | P.CONS ---
History of Present Illness - Reason for Consult Consult date: 06/06/23 Anemia - History of Present Illness The patient is a 58-year-old white male, with multiple medical problems, es pecially cardiovascular. The patient has a known history of coronary artery disease, and has been on Eliquis long-term, for history of atrial fibrillation. The patient came into the hospital, as he became dizzy and had a syncopal episode while shopping, hitting his forehead and nose. He required suturing, and was found to have a hemoglobin in the 7 range. Hemoglobin in 04/17 had been 15. Previous hemoglobins had been essentially normal, with drops into the 11-12 range typically during hospital admissions with acute illness. The patient states that he had been having ongoing bleeding from his gums because of multiple carious teeth. He had therefore stopped Eliquis about 2 weeks prior to this admission. He had multiple dental extractions on 06/01/2023. He states that he did have some bleeding postprocedure and swallowed approximately about a cup of blood. He denies any bleeding in the stool, or any hematemesis. He has never had an EGD or colonoscopy. Review of Systems Constitutional: Reports weakness Eyes: denies blurred vision, denies pain Ears: deny: decreased hearing, ear discharge, earache, tinnitus Ears, nose, mouth and throat: Reports as per HPI, Reports bleeding gums, Reports dental pain Cardiovascular: Reports as per HPI, Reports syncope Respiratory: Denies cough Gastrointestinal: Denies abdominal pain, Denies diarrhea, Denies nausea, Denies vomiting Genitourinary: Reports as per HPI Musculoskeletal: Reports muscle weakness Integumentary: Reports as per HPI, Reports wounds (Forehead and bridge of nose from fall) Neurological: Reports syncope, Reports weakness Psychiatric: Denies anxiety, Denies depression Endocrine: Reports fatigue Hematologic/Lymphatic: Reports as per HPI Past Medical History Past Medical History: Asthma, Coronary Artery Disease (CAD), Chest Pain / Angina, Diabetes Mellitus, Deep Vein Thrombosis (DVT), Hyperlipidemia, Hyp ertension, Myocardial Infarction (ME), Sleep Apnea/CPAP/BIPAP Additional Past Medical History / Comment(s): Obstructive sleep apnea CPAP, bronchitis, IDDM type II, DVT L leg, cellulitis L leg 2012 cellulitis L Arm 2017, diabetic neuropathy affects feet and hands, chronic kidney disease stage II Last Myocardial Infarction Date:: 06/23/13 History of Any Multi-Drug Resistant Organisms: Acinetobacter (MDRO), MRSA Year Discovered:: 08/2014 MDRO Source:: abdomen around navel Past Surgical History: Back Surgery, Coronary Bypass/CABG, Heart Catheterizati on, Heart Catheterization With Stent, Hernia Repair Additional Past Surgical History / Comment(s): Cardiac caths, PCI with stents (4total), 2006 CABG 6 vessels, spinal fusion L4-L5, fasciotomy left thigh, bilateral inguinal hernia repairs, I&D L forearm with dehisence then compartment syndrome with fasciotomy Left forearm - June 2016, teeth extraction Past Anesthesia/Blood Transfusion Reactions: No Reported Reaction Date of Last Stent Placement:: 08/28/15 Past Psychological History: No Psychological Hx Reported Additional Psychological History / Comment(s): Pt is independent. Smoking Status: Never smoker Past Alcohol Use History: None Reported Additional Past Alcohol Use History / Comment(s): He denies any medical marijuana, marijuana, street drug use. \ Past Drug Use History: None Reported - Past Family History Brother(s) Additional Family Medical History / Comment(s): Patient has 1 brother and 1 sister with no major medical problems. Mother Family Medical History: Congestive Heart Failure (CHF), Diabetes Mellitus Additional Family Medical History / Comment(s): Mother at the age of 84 from with history of chronic renal disease stage. Father Family Medical History: COPD, Coronary Artery Disease (CAD), Myocardial Infarction (ME) Additional Family Medical History / Comment(s): Father of a ME at the age of 60 yrs with history of COPD. Sister(s) Family Medical History: Rheumatoid Arthritis (RA) Additional Family Medical History / Comment(s): Patient has 1 sister with no major medical problems. Medications and Allergies Home Medications Medication Instructions Recorded Confirmed Type Ezetimibe [Zetia] 10 mg PO DAILY 12/15/20 06/05/23 History Losartan Potassium [Cozaar] 100 mg PO DAILY #30 tablet 03/18/22 06/05/23 Rx Atorvastatin [Lipitor] 80 mg PO DAILY 04/09/22 06/05/23 History Furosemide [Lasix] 40 mg PO DAILY 04/09/22 06/05/23 History metFORMIN HCL 1,000 mg PO BID 04/09/22 06/05/23 History Acetaminophen Tab [Tylenol Tab] 500 mg PO Q8H PRN 06/05/23 06/05/23 History Amoxicillin 500 mg PO Q8H 06/05/23 06/05/23 History Insulin Aspart [NovoLOG Flexpen] 7 units SQ TID-W/MEALS 06/05/23 06/05/23 History Insulin Glargine,Hum.rec.anlog 30 units SQ DIRECTED 06/05/23 06/05/23 History [Touvamshio Solostar] amLODIPine [Norvasc] 5 mg PO DAILY 06/05/23 06/05/23 History carvediloL [Coreg] 25 mg PO BID 06/05/23 06/05/23 History hydrALAZINE HCL [Apresoline] 50 mg PO BID 06/05/23 06/05/23 History Allergies Allergy/AdvReac Type Severity Reaction Status Date / Time adhesive tape Allergy Severe Rash/Hives Verified 06/05/23 11:55 vancomycin Allergy Mild Head Itches Verified 06/05/23 11:55 Physical Exam Vitals: Vital Signs Temp Pulse Pulse Pulse Pulse Pulse Resp 06/06/23 09:37 06/06/23 08:00 98.2 F 95 63 65 81 18 06/06/23 03:44 97.6 F 63 18 06/06/23 02:00 56 L 06/05/23 23:43 97.7 F 54 L 15 06/05/23 23:05 56 L 18 06/05/23 20:45 97.9 F 72 18 06/05/23 14:00 98.6 F 95 17 BP BP BP BP BP Pulse Ox 06/06/23 09:37 99 06/06/23 08:00 106/76 06/06/23 03:44 102/73 99 06/06/23 02:00 06/05/23 23:43 100/67 96 06/05/23 23:05 105/59 94 L 06/05/23 20:45 157/98 94 L 06/05/23 14:00 141/80 98 Intake and Output 06/05/23 06/06/23 06/06/23 22:59 06:59 14:59 Output Total 400 Balance -400 Output: Urine 400 Other: Voiding Method Urinal Urinal Weight 72.575 kg - Constitutional General appearance: no acute distress - EENT Eyes: EOMI, PERRLA ENT: hearing grossly normal, other (Multiple dental extractions, essentially edentulous. No active bleeding) - Neck Neck: other (Smooth firm lump behind left ear, non mobile, present for many years, most suggestive of benign bone tumor) Thyroid: bilateral: normal size - Respiratory Respiratory: bilateral: CTA - Cardiovascular Rhythm: irregularly irregular Heart sounds: normal: S1, S2 - Gastrointestinal General gastrointestinal: normal bowel sounds, soft - Integumentary Integumentary: normal - Musculoskeletal Musculoskeletal: generalized weakness, strength equal bilaterally - Psychiatric Psychiatric: A&O x's 3, appropriate affect (Bandage covering forehead) Results CBC & Chem 7: 06/06/23 08:12 06/04/23 21:05 Labs: Abnormal Lab Results - Last 24 Hours (Table) 06/05/23 06/05/23 06/06/23 Range/Units 15:13 20:43 06:23 RBC (4.30-5.90) m/uL Hgb (13.0-17.5) gm/dL Hct (39.0-53.0) % MCH (25.0-35.0) pg MCHC (31.0-37.0) g/dL RDW (11.5-15.5) % POC Glucose (mg/dL) 404 H 156 H 127 H (70-110) mg/dL 06/06/23 Range/Units 08:12 RBC 2.99 L (4.30-5.90) m/uL Hgb 7.2 L (13.0-17.5) gm/dL Hct 25.1 L (39.0-53.0) % MCH 23.9 L (25.0-35.0) pg MCHC 28.5 L (31.0-37.0) g/dL RDW 17.2 H (11.5-15.5) % POC Glucose (mg/dL) (70-110) mg/dL Comments: EKG images reviewed CT Scan - head: report reviewed Assessment and Plan (1) Anemia Narrative/Plan: This appears to be most compatible with acute blood loss anemia. The patient's hemoglobin was normal in 04/17. Baseline hemoglobin actually appears to be normal, with drops typically seen transiently in settings of acute illnesses. The case was discussed in detail with the admitting service. The main concern in this case would be occult GI blood loss and opinion. The patient has had significant oral bleeding, but that would typically not be expected to cause a drop in hemoglobin in this range. Therefore it would be reasonable to rule out other sources such as the GI, especially in a patient chronically on anticoagulation, and antiplatelet therapy. In addition the patient has never had an EGD or colonoscopy. Therefore consult for surgery was placed, to set up the patient for the same. Check labs including iron studies. Supplement with IV iron Monitor hemoglobin and transfuse to keep greater than 7 Current Visit: No Status: Acute Code(s): D64.9 - ANEMIA, UNSPECIFIED SNOMED Code(s): 184615018
[2023-06-06 13:16] LABS: Glucose,Whole Blood 189 mg/dL (70-110)
[2023-06-06 15:27] LABS: Anisocytosis Slight; HCT 25.2 % (39.0-53.0); HGB 7.3 gm/dL (13.0-17.5); Hypochromasia Marked; MCH 23.9 pg (25.0-35.0); MCHC 28.9 g/dL (31.0-37.0); MCV 82.7 fL (80.0-100.0); Mean Platelet Volume 9.8; Platelet Count 249 k/uL (150-450); Poikilocytosis Moderate; RBC 3.05 m/uL (4.30-5.90); RDW 17.5 % (11.5-15.5); WBC 4.7 k/uL (3.8-10.6)
--- NOTE | 2023-06-06 15:58 | P.GSCN ---
History of Present Illness Consult date: 06/06/23 History of present illness: Patient is being seen for anemia. He reports all of his teeth were removed this week with over 1 cup of bleeding. He was on blood thinners less than 2 to 3 weeks ago. He comes in with decline in Hgb from over 13 to 7-8 mg/dL. He denies any other signs of bleeding. No prior upper or lower scope. PLAN 1. EGD for tomorrow. 2. Will need bowel prep prior to colonoscopy, scheduled for Wednesday. 3. Full liquid diet in the interim as he is edentulous. Past Medical History Past Medical History: Asthma, Coronary Artery Disease (CAD), Chest Pain / Angina, Diabetes Mellitus, Deep Vein Thrombosis (DVT), Hyperlipidemia, Hypertension, Myocardial Infarction (PR), Sleep Apnea/CPAP/BIPAP Additional Past Medical History / Comment(s): Obstructive sleep apnea CPAP, bronchitis, IDDM type II, DVT L leg, cellulitis L leg 2012 cellulitis L Arm 2017, diabetic neuropathy affects feet and hands, chronic kidney disease stage II Last Myocardial Infarction Date:: 06/23/13 History of Any Multi-Drug Resistant Organisms: Acinetobacter (MDRO), MRSA Year Discovered:: 08/2014 MDRO Source:: abdomen around navel Past Surgical History: Back Surgery, Coronary Bypass/CABG, Heart Catheterization, Heart Catheterization With Stent, Hernia Repair Additional Past Surgical History / Comment(s): Cardiac caths, PCI with stents (4total), 2006 CABG 6 vessels, spinal fusion L4-L5, fasciotomy left thigh, bilateral inguinal hernia repairs, I&D L forearm with dehisence then compartment syndrome with fasciotomy Left forearm - June 2016, teeth extraction Past Anesthesia/Blood Transfusion Reactions: No Reported Reaction Date of Last Stent Placement:: 08/28/15 Past Psychological History: No Psychological Hx Reported Additional Psychological History / Comment(s): Pt is independent. Smoking Status: Never smoker Past Alcohol Use History: None Reported Additional Past Alcohol Use History / Comment(s): He denies any medical marijuana, marijuana, street drug use. \ Past Drug Use History: None Reported - Past Family History Brother(s) Additional Family Medical History / Comment(s): Patient has 1 brother and 1 sister with no major medical problems. Mother Family Medical History: Congestive Heart Failure (CHF), Diabetes Mellitus Additional Family Medical History / Comment(s): Mother at the age of 84 from with history of chronic renal disease stage. Father Family Medical History: COPD, Coronary Artery Disease (CAD), Myocardial Infarction (PR) Additional Family Medical History / Comment(s): Father of a PR at the age of 60 yrs with history of COPD. Sister(s) Family Medical History: Rheumatoid Arthritis (RA) Additional Family Medical History / Comment(s): Patient has 1 sister with no major medical problems. Medications and Allergies Home Medications Medication Instructions Recorded Confirmed Type Ezetimibe [Zetia] 10 mg PO DAILY 12/15/20 06/05/23 History Losartan Potassium [Cozaar] 100 mg PO DAILY #30 tablet 03/18/22 06/05/23 Rx Atorvastatin [Lipitor] 80 mg PO DAILY 04/09/22 06/05/23 History Furosemide [Lasix] 40 mg PO DAILY 04/09/22 06/05/23 History metFORMIN HCL 1,000 mg PO BID 04/09/22 06/05/23 History Acetaminophen Tab [Tylenol Tab] 500 mg PO Q8H PRN 06/05/23 06/05/23 History Amoxicillin 500 mg PO Q8H 06/05/23 06/05/23 History Insulin Aspart [NovoLOG Flexpen] 7 units SQ TID-W/MEALS 06/05/23 06/05/23 History Insulin Glargine,Hum.rec.anlog 30 units SQ DIRECTED 06/05/23 06/05/23 History [Toujeo Solostar] amLODIPine [Norvasc] 5 mg PO DAILY 06/05/23 06/05/23 History carvediloL [Coreg] 25 mg PO BID 06/05/23 06/05/23 History hydrALAZINE HCL [Apresoline] 50 mg PO BID 06/05/23 06/05/23 History Allergies Allergy/AdvReac Type Severity Reaction Status Date / Time adhesive tape Allergy Severe Rash/Hives Verified 06/05/23 11:55 vancomycin Allergy Mild Head Itches Verified 06/05/23 11:55 Surgical - Exam Vital Signs Temp Pulse Resp BP Pulse Ox 94.4 F L 82 18 167/112 93 L 06/04/23 20:40 06/04/23 20:40 06/04/23 20:40 06/04/23 20:40 06/04/23 20:40 Results - Labs 06/06/23 15:05 06/04/23 21:05 Abnormal Lab Results - Last 24 Hours (Table) 06/05/23 06/06/23 06/06/23 Range/Units 20:43 06:23 08:12 RBC (4.30-5.90) m/uL Hgb (13.0-17.5) gm/dL Hct (39.0-53.0) % MCH (25.0-35.0) pg MCHC (31.0-37.0) g/dL RDW (11.5-15.5) % POC Glucose (mg/dL) 156 H 127 H (70-110) mg/dL Hemoglobin A1c 9.3 H (<=6.0) % 06/06/23 06/06/23 06/06/23 Range/Units 08:12 13:14 15:05 RBC 2.99 L 3.05 L (4.30-5.90) m/uL Hgb 7.2 L 7.3 L (13.0-17.5) gm/dL Hct 25.1 L 25.2 L (39.0-53.0) % MCH 23.9 L 23.9 L (25.0-35.0) pg MCHC 28.5 L 28.9 L (31.0-37.0) g/dL RDW 17.2 H 17.5 H (11.5-15.5) % POC Glucose (mg/dL) 189 H (70-110) mg/dL Hemoglobin A1c (<=6.0) % Diabetes panel 06/06/23 Range/Units 08:12 Hemoglobin A1c 9.3 H (<=6.0) %
[2023-06-06 17:17] LABS: Glucose,Whole Blood 280 mg/dL (70-110)
[2023-06-06 20:25] LABS: Glucose,Whole Blood 299 mg/dL (70-110)
[2023-06-07 06:15] LABS: Glucose,Whole Blood 121 mg/dL (70-110)
[2023-06-07 08:01] LABS: % Iron Saturation 33.41 (15.00-50.00); Ferritin 40.9 ng/mL (22.0-322.0)
--- NOTE | 2023-06-07 10:08 | P.PN ---
Subjective Progress Note Date: 06/07/23 Consult reason: sycope, atrial fibrillation History of present illness: History of present illness: This is a 58-year-old male patient of Dr. Ga with past medical history of coronary artery disease with previous stent and CABG, persistent atrial fibr illation on Eliquis, diabetes, hypertension, hyperlipidemia, obstructive sleep apnea, prior DVT history, nicotine dependence, COPD, ischemic cardiomyopathy. We have been asked to evaluate the patient for syncope and atrial fibrillation. Patient gives history that he was at the grocery store and he started feeling dizzy, grabbed a hold of the shopping cart and the next thing he knew he was on the ground and people were standing over him. He denies having any recent vomiting no blood in his stools no black stools. He denies have any chest pain prior to this. He has had some episodes of lightheadedness dizziness recently. Patient has been off his Eliquis for the past 2 weeks as he took himself off because after extraction of teeth he was having some bleeding. Patient presented with a blood pressure of 178/120 and now 106/76. Orthostatic vital signs have been negative. Laceration closure of forehead wound was performed. Patient sustained patient is seen today in the emergency center waiting for a bed on the cardiac stepdown unit. EKG A-fib [address] of the brain and cervical spine revealed no acute intracranial abnormality and no acute cervical spine fracture or traumatic malalignment. Chronic changes noted on both. WBC 6.8, hemoglobin 7.7, platelet count 292. BUN 42 creatinine 1.78. Home cardiac medications: Amlodipine 5 mg daily, Lipitor 80 mg daily, Coreg 25 mg twice daily, Zetia 10 mg daily, Lasix 40 mg daily, hydralazine 50 mg twice daily, losartan 100 mg daily Cardiac catheterization performed 04/10/2022 revealed severe triple-vessel disease. Patent stent segment in the ramus intermedius and proximal left circumflex. Patent MAE to LAD. Patent SVG to OM. Chronically occluded SVG to the RCA and to the diagonal branch. Recommendations at the time was for medical management and restore sinus rhythm. Most recent electrocardioversion 04/2019 for atrial fibrillation Echocardiogram 03/10/2022 revealed moderate concentric left ventricular hypertrophy, EF 50-60, probably pericardial stripe. Biatrial enlargement. Mild mitral regurgitation, mild to moderate tricuspid regurgitation Exercise stress test 11/2019 was nondiagnostic due to baseline EKG abnormalities 06/06 Repeat hemoglobin is 7.3. Patient has been seen by oncology regarding anemia with recommendations for surgical consult. Patient has been seen by general surgery and is scheduled for EGD and colonoscopy. Echocardiogram report is pending. Blood pressure 137/82, heart rate in the 50s and 60s. Patient denies chest pain. Physical examination: Gen: This is a 58-year-old male resting in no acute distress VS: reviewed HEENT: Head has large white gauze wrapping, normocephalic. Pupils equal, round. Sclerae is anicteric. NECK: Supple. No JVD. LUNGS: Clear to auscultation. No wheezes or rhonchi. No intercostal retractions. HEART: Regular rate and rhythm. 2/6 systolic ejection murmur. ABDOMEN: Soft No tenderness. EXTREMITIES: No pedal edema. No calf tenderness. NEUROLOGICAL: Patient is awake, alert and oriented x3. Assessment: Syncopal episode most likely etiology is related to anemia and/or acute kidney injury, unlikely to be cardiac etiology Acute kidney injury New onset anemia, acute blood loss most likely Accelerated hypertension Head injury with forehead laceration status postrepair Persistent atrial fibrillation Coronary artery disease with prior bypass surgery and stents Diabetes Hypertension Hyperlipidemia Ischemic cardiomyopathy COPD Sleep apnea Plan: Continue patient's home cardiac medications Patient has stopped Eliquis due to bleeding following dental extraction, off Eliquis for about 1 month Obtain 2-D echocardiogram and Doppler study report Further recommendations to follow based upon clinical course Nurse practitioner note has been reviewed, I agree with documented findings and plan of care. Patient was seen and examined. Objective - Vital Signs Vital signs: Vital Signs Temp 97.6 F 06/07/23 07:41 Pulse 63 06/07/23 02:04 Resp 16 06/07/23 07:41 BP 137/82 06/07/23 07:41 Pulse Ox 97 06/07/23 07:41 FiO2 Intake & Output 06/06/23 06/07/23 06/07/23 18:59 06:59 18:59 Intake Total 240 Balance 240 Intake: Oral 240 Other: Voiding Method Urinal # Voids 3 3 - Labs CBC & Chem 7: 06/06/23 15:05 06/04/23 21:05 Labs: Abnormal Lab Results - Last 24 Hours (Table) 06/06/23 06/06/23 06/06/23 Range/Units 08:12 08:12 13:14 RBC 2.99 L (4.30-5.90) m/uL Hgb 7.2 L (13.0-17.5) gm/dL Hct 25.1 L (39.0-53.0) % MCH 23.9 L (25.0-35.0) pg MCHC 28.5 L (31.0-37.0) g/dL RDW 17.2 H (11.5-15.5) % POC Glucose (mg/dL) 189 H (70-110) mg/dL Hemoglobin A1c 9.3 H (<=6.0) % 06/06/23 06/06/23 06/06/23 Range/Units 15:05 17:16 20:23 RBC 3.05 L (4.30-5.90) m/uL Hgb 7.3 L (13.0-17.5) gm/dL Hct 25.2 L (39.0-53.0) % MCH 23.9 L (25.0-35.0) pg MCHC 28.9 L (31.0-37.0) g/dL RDW 17.5 H (11.5-15.5) % POC Glucose (mg/dL) 280 H 299 H (70-110) mg/dL Hemoglobin A1c (<=6.0) % 06/07/23 Range/Units 06:12 RBC (4.30-5.90) m/uL Hgb (13.0-17.5) gm/dL Hct (39.0-53.0) % MCH (25.0-35.0) pg MCHC (31.0-37.0) g/dL RDW (11.5-15.5) % POC Glucose (mg/dL) 121 H (70-110) mg/dL Hemoglobin A1c (<=6.0) %
--- NOTE | 2023-06-07 10:35 | CA ---
Transthoracic Echo Report Name: Lakhwinder Hirsch Age: 58 Gender: M : 1965 Exam Date: 06/07/2023 08:27 Exam Location: [facility] Ht (in): 67 Wt (lb): 160 Ordering Physician: Dipika Mendez Attending/Referring Phys: [id number], Vanessa Rn [facility] Sarah Guzmán RDCS Procedure CPT: Indications: LVF Cardiac Hx: Technical Quality: Good Contrast 1: Total Dose (mL): Contrast 2: Total Dose (mL): MEASUREMENTS (Male / Female) Normal Values 2D ECHO LV Diastolic Diameter PLAX 4.3 cm 4.2 - 5.9 / 3.9 - 5.3 cm LV Systolic Diameter PLAX 3.7 cm IVS Diastolic Thickness 1.3 cm 0.6 - 1.0 / 0.6 - 0.9 cm LVPW Diastolic Thickness 1.3 cm 0.6 - 1.0 / 0.6 - 0.9 cm LV Relative Wall Thickness 0.6 RV Internal Dim ED PLAX 3.9 cm LA Systolic Diameter LX 4.9 cm 3.0 - 4.0 / 2.7 - 3.8 cm LV Diastolic Volume MOD 4C 100.8 cm??? LV Systolic Volume MOD 4C 58.8 cm??? LV Ejection Fraction MOD 4C 41.6 % LV Cardiac Index MOD 4C 1374.1 cm???/min???m??? LV Diastolic Length 4C 8.7 cm LV Systolic Length 4C 7.6 cm LV Diastolic Volume MOD 2C 118.7 cm??? LV Systolic Volume MOD 2C 78.0 cm??? LV Ejection Fraction MOD 2C 34.3 % LV Cardiac Index MOD 2C 1333.9 cm???/min???m??? LV Diastolic Length 2C 8.5 cm LV Systolic Length 2C 7.5 cm LA Volume 106.6 cm??? 18 - 58 / 22 - 52 cm??? LA Volume Index 57.3 cm???/m??? 16 - 28 cm???/m??? M-MODE Aortic Root Diameter MM 3.7 cm MV E Point Septal Separation 0.4 cm DOPPLER AV Peak Velocity 95.6 cm/s AV Peak Gradient 3.7 mmHg MV Area PHT 5.1 cm??? MR Peak Velocity 512.0 cm/s MR Peak Gradient 104.9 mmHg MV Deceleration Time 120.2 ms TR Peak Velocity 350.5 cm/s TR Peak Gradient 49.1 mmHg Right Ventricular Systolic Press 57.0 mmHg FINDINGS Left Ventricle Left ventricular ejection fraction is estimated at 40-45 %. Left ventricular cavity size normal. Mildly increased septal wall thickness. No obvious regional wall motion abnormalities. Right Ventricle Mild right ventricular dilatation. Severe pulmonary hypertension. Right ventricular systolic pressure estimated at 57 mm hg. Right Atrium Normal right atrial size. Left Atrium Moderately increased left atrial diameter. Severely increased left atrial volume. Mildly increased left atrial area. Mitral Valve Mitral valve thickened. Mild mitral annular calcification. Moderate mitral regurgitation. Posteriorly directed mitral regurgitation jet. Aortic Valve Trileaflet aortic valve. Aortic valve sclerosis. Tricuspid Valve Structurally normal tricuspid valve. Severe tricuspid regurgitation. Pulmonic Valve Structurally normal pulmonic valve. No pulmonic regurgitation. Pericardium No pericardial effusion. Aorta Normal size aortic root and proximal ascending aorta. CONCLUSIONS Moderate LV systolic dysfunction with an ejection fraction of 40-45% Septal thickness Moderate to severe pulmonary hypertension Moderate posteriorly directed mitral regurgitation and severe tricuspid regurgitation Previewed by: Dr. Chaitanya Garcia MD (Electronically Signed) Final Date: 07 June 2023 10:34
[2023-06-07 11:17] LABS: Basophils # (A) 0.06 X 10*3/uL (0.00-0.10); Basophils % (A) 1.2 %; Eosinophils # (A) 0.31 X 10*3/uL (0.04-0.35); Eosinophils % (A) 6.2 %; HCT 24.5 % (39.6-50.0); Lymphocytes # (A) 1.12 X 10*3/uL (0.90-5.00); Lymphocytes % (A) 22.3 %; MCH 23.3 pg (27.0-32.0); MCHC 28.6 g/dL (32.0-37.0); MCV 81.7 FL (80.0-97.0); Monocytes # (A) 0.92 X 10*3/uL (0.20-1.00); Monocytes % (A) 18.3 %; NRBC Per 100 WBC 0.09 X 10*3/uL (0.00-0.01); Neutrophils % (A) 51.8 %; Platelet Count 239 X 10*3/uL (140-440); RDW 18.1 % (11.5-14.5); WBC 5.02 X 10*3/uL (4.50-10.00)
[2023-06-07 11:34] LABS: Glucose,Whole Blood 81 mg/dL (70-110)
[2023-06-07 11:38] LABS: BUN/Creat Ratio 17.82 Ratio (12.00-20.00); Blood Urea Nitrogen 30.3 mg/dL (9.0-27.0); Calcium 7.8 mg/dL (8.7-10.3); Carbon Dioxide 18.7 mmol/L (21.6-31.8); Chloride 111 mmol/L (96-109); Glucose 109 mg/dL (70-110); Sodium 141 mmol/L (135-145)
[2023-06-07 16:11] VITALS: BMI 25.0
[2023-06-07 18:02] LABS: Glucose,Whole Blood 66 mg/dL (70-110)
[2023-06-07 18:18] LABS: Glucose,Whole Blood 68 mg/dL (70-110)
[2023-06-07 18:32] LABS: Glucose,Whole Blood 75 mg/dL (70-110)
--- NOTE | 2023-06-07 20:02 | P.PN ---
Subjective Progress Note Date: 06/07/23 Objective - Vital Signs Vital signs: Vital Signs Temp 97.6 F 06/07/23 07:41 Pulse 60 06/07/23 08:56 Resp 16 06/07/23 07:41 BP 137/82 06/07/23 07:41 Pulse Ox 97 06/07/23 07:41 FiO2 Intake & Output 06/06/23 06/07/23 06/07/23 18:59 06:59 18:59 Intake Total 240 Balance 240 Intake: Oral 240 Other: Voiding Method Urinal # Voids 3 3 - Exam Head and facial trauma from fall - Constitutional General appearance: Present: average body habitus, cooperative, no acute distress - Respiratory Details: resp even and unlabored at rest - Integumentary Integumentary: Present: pale - Psychiatric Psychiatric Comment(s): irritable mood Psychiatric: Present: A&O x's 3, intact judgment & insight - Labs CBC & Chem 7: 06/07/23 06:40 06/07/23 06:40 Labs: Abnormal Lab Results - Last 24 Hours (Table) 06/06/23 06/06/23 06/06/23 Range/Units 08:12 13:14 15:05 RBC 3.05 L (4.30-5.90) m/uL Hgb 7.3 L (13.0-17.5) gm/dL Hct 25.2 L (39.0-53.0) % MCH 23.9 L (25.0-35.0) pg MCHC 28.9 L (31.0-37.0) g/dL RDW 17.5 H (11.5-15.5) % NRBC/100 WBC Diff (0.00-0.01) X 10*3/uL Chloride (96-109) mmol/L Carbon Dioxide (21.6-31.8) mmol/L BUN (9.0-27.0) mg/dL Creatinine (0.6-1.5) mg/dL Est GFR (CKD-EPI) (>=60) POC Glucose (mg/dL) 189 H (70-110) mg/dL Hemoglobin A1c 9.3 H (<=6.0) % Calcium (8.7-10.3) mg/dL 06/06/23 06/06/23 06/07/23 Range/Units 17:16 20:23 06:12 RBC (4.30-5.90) m/uL Hgb (13.0-17.5) gm/dL Hct (39.0-53.0) % MCH (25.0-35.0) pg MCHC (31.0-37.0) g/dL RDW (11.5-15.5) % NRBC/100 WBC Diff (0.00-0.01) X 10*3/uL Chloride (96-109) mmol/L Carbon Dioxide (21.6-31.8) mmol/L BUN (9.0-27.0) mg/dL Creatinine (0.6-1.5) mg/dL Est GFR (CKD-EPI) (>=60) POC Glucose (mg/dL) 280 H 299 H 121 H (70-110) mg/dL Hemoglobin A1c (<=6.0) % Calcium (8.7-10.3) mg/dL 06/07/23 06/07/23 Range/Units 06:40 06:40 RBC 3.00 L (4.30-5.90) m/uL Hgb 7.0 L (13.0-17.5) gm/dL Hct 24.5 L (39.0-53.0) % MCH 23.3 L (25.0-35.0) pg MCHC 28.6 L (31.0-37.0) g/dL RDW 18.1 H (11.5-15.5) % NRBC/100 WBC Diff 0.09 H (0.00-0.01) X 10*3/uL Chloride 111 H (96-109) mmol/L Carbon Dioxide 18.7 L (21.6-31.8) mmol/L BUN 30.3 H (9.0-27.0) mg/dL Creatinine 1.7 H (0.6-1.5) mg/dL Est GFR (CKD-EPI) 46 L (>=60) POC Glucose (mg/dL) (70-110) mg/dL Hemoglobin A1c (<=6.0) % Calcium 7.8 L (8.7-10.3) mg/dL Assessment and Plan (1) Acute blood loss anemia Current Visit: Yes Status: Acute Priority: Medium Code(s): D62 - ACUTE POSTHEMORRHAGIC ANEMIA SNOMED Code(s): 307490828 Plan: Anemia, normocytic, hypochromic -Suspect acute blood loss. Previous normal hemoglobin in March. Transient drops are noted in setting of acute illness -Endoscopy planned. -Transfuse for hemoglobin less than 7 or if patient is symptomatic -Iron studies normal but, ferritin is low at 40. Supplement with IV iron -Additional anemia workup ordered today Doctor attests: I performed a history and physical examination of this patient, developed impression and plan of care. Discussed with dictator. I agree with dictators note, documented as a scribe.
[2023-06-07 20:41] LABS: Glucose,Whole Blood 219 mg/dL (70-110)
[2023-06-07] MEDS: INSULIN DETEMIR (LEVEMIR) 100 UNIT/ML SYR SQ SCH (20:50)
[2023-06-08 06:04] LABS: Glucose,Whole Blood 101 mg/dL (70-110)
--- NOTE | 2023-06-08 09:18 | CT ---
EXAMINATION TYPE: CT facial bones wo con CT DLP: COMBINED 1037.9 mGycm, Automated exposure control for dose reduction was used. DATE OF EXAM: 06/04/2023 9:49 PM COMPARISON: Correlation with same day CT head cervical spine. CLINICAL INDICATION:Male, 58 years old with history of fall; PHH, PASSED OUT HITTING FOREHEAD ON THE FLOOR TECHNIQUE: Multiple unenhanced axial CT images were obtained of the facial bones soft tissue and bone windows. Coronal, axial and sagittal reformatted images were also provided in soft tissue and bone windows and submitted for interpretation. Additional 3-D reformatted images were obtained on a [employer] workstation. FINDINGS: Mild soft tissue swelling over the forehead with small focus of subcutaneous gas, mild soft tissue th ickening over the bridge of the nose, likely sequela of the current trauma. Orbits appear intact. The globes are symmetric and unremarkable. No evidence of retrobulbar hematoma. No fracture of the visualized frontal bone or frontal sinuses. Mild deformity of the nasal bones sugg esting age-indeterminate fractures which may be acute. No significant displacement is seen. No evidence of zygomatic arch fracture. Pterygoid plates are intact. The patient is edentulous, with numerous empty tooth sockets demonstrated in the maxilla and mandible . An irregular appearance along the floor of the maxillary sinuses, likely chronic changes. Lobular m ucosal thickening in the maxillary sinuses. Tiny density in the region of the tip of the anterior nasal spine, appears eccentric to the right and is likely calcification. The spine otherwise appears intact. There is some cortical thinning and possible small areas of cortical discontinuity in the anterior as pect of the mandible, associated with empty tooth sockets. This could represent chronic changes, beverly rosy acute fracture here cannot be excluded. Otherwise, the mandible appears intact without evidence o f fracture. The temporomandibular joints are normally aligned. IMPRESSION: 1. Mild soft tissue swelling over the forehead and bridge of nose, likely related to the current tra rivera. 2. Mild deformity of the nasal bones suggesting age-indeterminate fractures which may be acute. No s ignificant displacement is seen. 3. Other findings in the maxilla and mandible are likely chronic related to edentulous status. Corre late clinically to exclude any acute fracture along the anterior aspect of the mandible. 4. Lobular maxillary sinus mucosal thickening bilaterally.
[2023-06-08] MEDS: PEG 3350 (420 GM/BTL) + LYTES 4,000 ML BOTTLE PO ONE (11:03)
--- NOTE | 2023-06-08 11:39 | P.PN ---
Subjective Progress Note Date: 06/08/23 CHIEF COMPLAINT: Anemia HISTORY OF PRESENT ILLNESS: Surgical service following in regards to anemia. Patient had bleeding following dental extraction. Patient initially scheduled for EGD and colonoscopy yesterday. However, patient wanted to eat and scopes were canceled. EGD and colonoscopy rescheduled for tomorrow. Patient starting bowel prep today. Denies any other signs or symptoms of bleeding. Afebrile. Hemoglobin 7.0 yesterday. Labs for today pending PHYSICAL EXAM: VITAL SIGNS: Reviewed GENERAL: Well-developed in no acute distress. HEENT: No sclera icterus. Extraocular movements grossly intact. Moist buccal mucosa. Head is atraumatic, normocephalic. Hears conversational speech. No nasal drainage. NECK: Supple without lymphadenopathy. CHEST: Non-labored respirations and equal bilateral excursions. CARDIOVASCULAR: Palpable 2+ radial pulses. ABDOMEN: Soft. Nondistended. Nontender. MUSCULOSKELETAL: No clubbing or cyanosis. NEUROLOGIC: No focal or lateralizing signs. Cranial nerves II through XII grossly intact. PSYCH: Appropriate affect. Alert and oriented to person, place and time. SKIN: Well perfused. Good skin turgor. ASSESSMENT: 1. Anemia, likely acute blood loss anemia 2. Recent bleeding after tooth extraction PLAN: -Patient scheduled for EGD and colonoscopy tomorrow with Dr. Salgado -Clear liquid diet today -Nulytely bowel prep today -N.p.o. after midnight -Continue to monitor hemoglobin -Continue to monitor for any signs or symptoms of bleeding Physician Rib Bender note has been reviewed by physician. Signing provider agrees with the documented findings, assessment, and plan of care. Objective - Vital Signs Vital signs: Vital Signs Temp 97.5 F L 06/08/23 07:34 Pulse 59 L 06/08/23 02:17 Resp 16 06/08/23 07:34 BP 129/80 06/08/23 07:34 Pulse Ox 100 06/08/23 07:34 FiO2 Intake & Output 06/07/23 06/08/23 06/08/23 18:59 06:59 18:59 Intake Total 118 Balance 118 Weight 72.575 kg Intake: Oral 118 Other: Voiding Method Urinal Urinal # Voids 2 3 - Labs CBC & Chem 7: 06/07/23 06:40 06/07/23 06:40 Labs: Abnormal Lab Results - Last 24 Hours (Table) 06/07/23 06/07/23 06/07/23 Range/Units 06:40 10:16 18:00 Chloride 111 H (96-109) mmol/L Carbon Dioxide 18.7 L (21.6-31.8) mmol/L BUN 30.3 H (9.0-27.0) mg/dL Creatinine 1.7 H (0.6-1.5) mg/dL Est GFR (CKD-EPI) 46 L (>=60) POC Glucose (mg/dL) 66 L (70-110) mg/dL Calcium 7.8 L (8.7-10.3) mg/dL Vitamin B12 1207.0 H (200.0-944.0) pg/mL 06/07/23 06/07/23 Range/Units 18:16 20:40 Chloride (96-109) mmol/L Carbon Dioxide (21.6-31.8) mmol/L BUN (9.0-27.0) mg/dL Creatinine (0.6-1.5) mg/dL Est GFR (CKD-EPI) (>=60) POC Glucose (mg/dL) 68 L 219 H (70-110) mg/dL Calcium (8.7-10.3) mg/dL Vitamin B12 (200.0-944.0) pg/mL
[2023-06-08 11:56] LABS: Glucose,Whole Blood 117 mg/dL (70-110)
[2023-06-08 12:37] LABS: Basophils # (A) 0.08 X 10*3/uL (0.00-0.10); Basophils % (A) 1.4 %; Eosinophils # (A) 0.31 X 10*3/uL (0.04-0.35); Eosinophils % (A) 5.4 %; HCT 26.3 % (39.6-50.0); HGB 7.5 g/dL (13.0-17.0); Lymphocytes # (A) 1.03 X 10*3/uL (0.90-5.00); MCH 23.1 pg (27.0-32.0); MCHC 28.5 g/dL (32.0-37.0); MCV 81.2 FL (80.0-97.0); Mean Platelet Volume 11.1 FL (9.5-12.2); Monocytes # (A) 0.94 X 10*3/uL (0.20-1.00); Monocytes % (A) 16.5 %; NRBC Per 100 WBC 0.11 X 10*3/uL (0.00-0.01); Neutrophils # (A) 3.34 X 10*3/uL (1.80-7.70); Neutrophils % (A) 58.5 %; Platelet Count 255 X 10*3/uL (140-440); RBC 3.24 X 10*6/uL (4.40-5.60); RDW 18.5 % (11.5-14.5); WBC 5.71 X 10*3/uL (4.50-10.00)
[2023-06-08 12:38] LABS: ALT 42 U/L (10-49); AST 31 U/L (14-35); Albumin 2.9 g/dL (3.8-4.9); Albumin/Globulin Ratio 1.12 Ratio (1.60-3.17); Alkaline Phosphatase 88 U/L (41-126); Blood Urea Nitrogen 30.6 mg/dL (9.0-27.0); Carbon Dioxide 17.4 mmol/L (21.6-31.8); Chloride 111 mmol/L (96-109); Globulin 2.6 g/dL (1.6-3.3); Glucose 89 mg/dL (70-110); Potassium 4.4 mmol/L (3.5-5.5); Sodium 140 mmol/L (135-145); Total Bilirubin 0.4 mg/dL (0.3-1.2); Total Protein 5.5 g/dL (6.2-8.2)
--- NOTE | 2023-06-08 14:08 | P.PN ---
Subjective Progress Note Date: 06/08/23 Consult reason: sycope, atrial fibrillation History of present illness: History of present illness: This is a 58-year-old male patient of Dr. Ga with past medical history of coronary artery disease with previous stent and CABG, persistent atrial fibr illation on Eliquis, diabetes, hypertension, hyperlipidemia, obstructive sleep apnea, prior DVT history, nicotine dependence, COPD, ischemic cardiomyopathy. We have been asked to evaluate the patient for syncope and atrial fibrillation. Patient gives history that he was at the grocery store and he started feeling dizzy, grabbed a hold of the shopping cart and the next thing he knew he was on the ground and people were standing over him. He denies having any recent vomiting no blood in his stools no black stools. He denies have any chest pain prior to this. He has had some episodes of lightheadedness dizziness recently. Patient has been off his Eliquis for the past 2 weeks as he took himself off because after extraction of teeth he was having some bleeding. Patient presented with a blood pressure of 178/120 and now 106/76. Orthostatic vital signs have been negative. Laceration closure of forehead wound was performed. Patient sustained patient is seen today in the emergency center waiting for a bed on the cardiac stepdown unit. EKG A-fib [address] of the brain and cervical spine revealed no acute intracranial abnormality and no acute cervical spine fracture or traumatic malalignment. Chronic changes noted on both. WBC 6.8, hemoglobin 7.7, platelet count 292. BUN 42 creatinine 1.78. Home cardiac medications: Amlodipine 5 mg daily, Lipitor 80 mg daily, Coreg 25 mg twice daily, Zetia 10 mg daily, Lasix 40 mg daily, hydralazine 50 mg twice daily, losartan 100 mg daily Cardiac catheterization performed 04/10/2022 revealed severe triple-vessel disease. Patent stent segment in the ramus intermedius and proximal left circumflex. Patent MAE to LAD. Patent SVG to OM. Chronically occluded SVG to the RCA and to the diagonal branch. Recommendations at the time was for medical management and restore sinus rhythm. Most recent electrocardioversion 04/2019 for atrial fibrillation Echocardiogram 03/10/2022 revealed moderate concentric left ventricular hypertrophy, EF 50-60, probably pericardial stripe. Biatrial enlargement. Mild mitral regurgitation, mild to moderate tricuspid regurgitation Exercise stress test 11/2019 was nondiagnostic due to baseline EKG abnormalities 06/06 Repeat hemoglobin is 7.3. Patient has been seen by oncology regarding anemia with recommendations for surgical consult. Patient has been seen by general surgery and is scheduled for EGD and colonoscopy. Echocardiogram report is pending. Blood pressure 137/82, heart rate in the 50s and 60s. Patient denies chest pain. 06/07 Blood pressure 129/80, heart rate 59, pulse ox 100% on room air. Echocardiogram reveals EF of 40 to 45%. Moderate to severe pulmonary hypertension. Moderate posterior directed mitral regurgitation and severe tricuspid regurgitation. Hemoglobin from yesterday 7.0. There are consults added for general surgery regarding anemia. Physical examination: Gen: This is a 58-year-old male resting in no acute distress VS: reviewed HEENT: Head has large white gauze wrapping, normocephalic. Pupils equal, round. Sclerae is anicteric. NECK: Supple. No JVD. LUNGS: Clear to auscultation. No wheezes or rhonchi. No intercostal retractions. HEART: Regular rate and rhythm. 2/6 systolic ejection murmur. ABDOMEN: Soft No tenderness. EXTREMITIES: No pedal edema. No calf tenderness. NEUROLOGICAL: Patient is awake, alert and oriented x3. Assessment: Syncopal episode most likely etiology is related to anemia and/or acute kidney injury, unlikely to be cardiac etiology Acute kidney injury New onset anemia, acute blood loss most likely Accelerated hypertension Head injury with forehead laceration status postrepair Persistent atrial fibrillation Coronary artery disease with prior bypass surgery and stents Diabetes Hypertension Hyperlipidemia Ischemic cardiomyopathy COPD Sleep apnea Valvular heart disease with moderate mitral regurgitation, severe tricuspid regurgitation Moderate to severe pulmonary hypertension Plan: Continue patient's home cardiac medications Continue to hold Eliquis due to bleeding and anemia Abnormalities on echocardiogram will be followed up in the outpatient setting. Patient will follow-up with Dr. Ga in 1 to 2 weeks following discharge. Further recommendations to follow based upon clinical course Nurse practitioner note has been reviewed, I agree with documented findings and plan of care. Patient was seen and examined. Objective - Vital Signs Vital signs: Vital Signs Temp 97.5 F L 06/08/23 07:34 Pulse 59 L 06/08/23 02:17 Resp 16 06/08/23 07:34 BP 129/80 06/08/23 07:34 Pulse Ox 100 06/08/23 07:34 FiO2 Intake & Output 06/07/23 06/08/23 06/08/23 18:59 06:59 18:59 Intake Total 118 Balance 118 Weight 72.575 kg Intake: Oral 118 Other: Voiding Method Urinal Urinal # Voids 2 3 - Labs CBC & Chem 7: 06/08/23 07:04 06/08/23 07:04 Labs: Abnormal Lab Results - Last 24 Hours (Table) 06/07/23 06/07/23 06/07/23 Range/Units 06:40 06:40 10:16 RBC 3.00 L (4.40-5.60) X 10*6/uL Hgb 7.0 L (13.0-17.0) g/dL Hct 24.5 L (39.6-50.0) % MCH 23.3 L (27.0-32.0) pg MCHC 28.6 L (32.0-37.0) g/dL RDW 18.1 H (11.5-14.5) % NRBC/100 WBC Diff 0.09 H (0.00-0.01) X 10*3/uL Chloride 111 H (96-109) mmol/L Carbon Dioxide 18.7 L (21.6-31.8) mmol/L BUN 30.3 H (9.0-27.0) mg/dL Creatinine 1.7 H (0.6-1.5) mg/dL Est GFR (CKD-EPI) 46 L (>=60) POC Glucose (mg/dL) (70-110) mg/dL Calcium 7.8 L (8.7-10.3) mg/dL Vitamin B12 1207.0 H (200.0-944.0) pg/mL 06/07/23 06/07/23 06/07/23 Range/Units 18:00 18:16 20:40 RBC (4.40-5.60) X 10*6/uL Hgb (13.0-17.0) g/dL Hct (39.6-50.0) % MCH (27.0-32.0) pg MCHC (32.0-37.0) g/dL RDW (11.5-14.5) % NRBC/100 WBC Diff (0.00-0.01) X 10*3/uL Chloride (96-109) mmol/L Carbon Dioxide (21.6-31.8) mmol/L BUN (9.0-27.0) mg/dL Creatinine (0.6-1.5) mg/dL Est GFR (CKD-EPI) (>=60) POC Glucose (mg/dL) 66 L 68 L 219 H (70-110) mg/dL Calcium (8.7-10.3) mg/dL Vitamin B12 (200.0-944.0) pg/mL
[2023-06-08 17:15] LABS: Glucose,Whole Blood 180 mg/dL (70-110)
--- NOTE | 2023-06-08 18:42 | P.PN ---
Subjective Progress Note Date: 06/07/23 HISTORY OF PRESENT ILLNESS: This is a 58 years old male with past medical history of triple-vessel coronary artery disease, atrial fibrillation on Eliquis at home, hypertension, hyperlipidemia. His medical device assembler is Dr. Mc. He is on aspirin and Tylenol as well. He presents because of syncope. Patient has been having dizziness for the last few days, immediately after he had to do his job done last Wednesday He states he has bad teeth and he has bleeding gums for the last 2 weeks so he stopped his Eliquis, his dentist took all his teeth out about 25 of them last Wednesday so he can get dentures during the procedure and immediately after he had some bleeding from his gums and sinuses, amount more than a cup and since then he has been having dizziness especially when he walks yesterday he was going to the [employer] he was feeling dizzy and after couple minutes of dizziness He finds himself on the floor with bleeding from his forehead where stitches were placed here in the emergency room and he has nose trauma. So he was sent to the emergency room Patient currently lying in bed fully awake and oriented, he has bandage in his forehead, little tenderness in his nose but there is no obvious bruise. All his teeth are missing but there is no obvious wound or active bleeding currently He denies abdominal pain vomiting diarrhea, no chest pain or dyspnea or coughing. No headache weakness or numbness. No significant dizziness right now He denies smoking alcohol and illicit drugs Of note patient stopped his Eliquis 2 weeks ago when he started having bleeding gums. 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 Also denies any blood in the stool or black stool. No vomiting blood. No bleeding from anywhere else and occult blood in the stool was negative Patient hemodynamically stable Hemoglobin dropped with from baseline 10-12 down to 8.4 on admission and currently 7.7 His creatinine went up to 1.7 with baseline 0.9-1.2. Rest of BMP and liver enzymes were unremarkable He has CT of the head and neck which showing moderate atrophy with bilateral marcus tricular dilatation secondary to atrophy but cannot rule out normal pressure hydrocephalus EKG showing A-fib with a rate of 79, T wave inversion in the inferior leads which is seen in the old EKG. However there is a new T wave inversion in V5 V6 not seen and he KG 2 months ago Patient had cardiac cath about a year ago showing severe triple-vessel coronary artery disease 06/06/2023 patient awake alert. Complaining of from the distal headache and dizziness Walking is fine No more bleeding from the gum Hemoglobin 7.2 Start iron pills Transfuse if hemoglobin less than 7 Cardiology consult evaluated the patient pending their note per staff patient can be downgraded to [facility] Speech swallow evaluation is requested and nutrition consult Patient continued on amoxicillin for his teeth procedure per to hospitalization for 3 more days Continue with normal saline 75 mL/h Currently Eliquis and aspirin on hold later by medical device assembler 06/06: Patient is lying down in bed in no apparent distress, he is upset because he has not been eating much except for today, he has not happy with his care so far, he is scheduled supposedly to go for an EGD today however this was switched to EGD and colonoscopy hopefully on Wednesday, meanwhile the patient will be on regular diet and he will be switched to liquid diet later on tomorrow afternoon, patient hemoglobin has dropped to 7, patient does not think this is coming from his GI tract he think that he lost a lot of blood due to his tooth extraction t hat happened the week prior to this. Patient denies any chest pain at this time, he has no shortness of breath, he appears to be generally weak, his blood glucose level appears to be appropriate at this time, we will continue to monitor the patient very closely. REVIEW OF SYSTEMS: Constitutional: No documented fever, no chills, no night sweats. positive for weight change. positive for weakness,no fatigue or lethargy. No daytime sleepiness. EENT: No headache. No blurred vision or double vision, no loss of vision. No loss of Hearing, no ringing in the ears, no dizziness. No nasal drainage or congestion. No epistaxis. No sore throat. Lungs: No shortness of breath, no cough, no sputum production. No wheezing. Reports dyspnea with activity. Cardiovascular: No chest pain, mild lower extremity edema. No palpitations. No paroxysmal nocturnal dyspnea. No orthopnea. No lightheadedness or dizziness. No syncopal episodes. Abdominal: Reports no abdominal pain. No nausea, vomiting. No diarrhea. No constipation. No bloody or tarry stools reports loss of appetite. Genitourinary: No dysuria, increased frequency, urgency. No urinary retention. Musculoskeletal: No myalgias. No muscle weakness, no gait dysfunction, no frequent falls. No back pain. No neck pain. Integumentary: No wounds, no lesions. No rash or pruritus. No unusual bruising. No change in hair or nails. Neurologic: No aphasia. No facial droop. No change in mentation. No head injury. No headache. No paralysis. No paresthesia. Psychiatric: No depression. No anxiety. No mood swings. Endocrine: No abnormal blood sugars. No weight change. PHYSICAL EXAMINATION: General: 58-year-old male laying down in bed in no apparent distress. HEENT: Head is atraumatic, normocephalic, pupils were equal round reactive to light and recommendation, extraocular muscle movement were intact, sclera nonicteric, conjunctivae were pale, mucous membranes of the mouth are somewhat dry. Neck: Supple, no JVP, normal carotid upstroke bilaterally, no lymphadenopathy. Chest: Decreased breath sounds at the bases, few rhonchi, no expiratory wheezes, no chest wall tenderness, no intercostal retractions. Heart: First heart sound is normal, second heart sound is normal there is systolic ejection murmur 2/6 located in the left sternal border. Abdomen: Soft, nontender, nondistended, positive bowel sounds. Extremities: There is +1 edema no calf tenderness DP +2 bilaterally. Neurologic examination: Patient is awake alert and oriented x 3, cranial nerves II-12 appear grossly intact, muscle power were 5 out of 5 in upper extremities and 5 out of 5 in bilateral lower extremities, deep tendon reflexes normal bilaterally. ASSESSMENT AND PLAN: 1. Syncopal episode most likely etiology is related to anemia and/or acute kidney injury, unlikely to be cardiac etiology. Continue to monitor the patient very closely. 2. Acute kidney injury. Continue IV fluid resuscitation, monitor the patient CMP over the next 24 hours. 3. New onset anemia, acute blood loss most likely chronic GI loss. Patient has never had EGD and colonoscopy we will arrange for EGD and colonoscopy with Dr. Salgdao on Wednesday morning. 4. Accelerated hypertension. Continue patient on amlodipine 5 mg once a day, Coreg 25 mg orally twice every day losartan 100 mg once every day, monitor the patient blood pressure very closely. 5. Head injury with forehead laceration status postrepair continue patient on amoxicillin 500 mg orally 3 times every day. 6. Persistent atrial fibrillation. Continue patient on Coreg 25 mg orally twice every day patient has been off Eliquis due to his upcoming procedure. 7. Coronary artery disease with prior bypass surgery and stents. Continue patient on atorvastatin 80 mg once every day, ezetimibe 10 mg once every day, carvedilol 25 mg orally twice every day. 8. Diabetes melitis type II. Continue Levemir 12 units at bedtime, with a sliding scale insulin. Monitor the patient blood glucose level 4 times every day. 9. Hypertension and hypertensive cardiovascular disease. Continue amlodipine 5 mg once every day, continue carvedilol 25 mg orally twice every day, and losartan 100 mg once every day monitor the patient blood pressure very closely. 10. Hyperlipidemia continue patient on atorvastatin 80 mg once every day and Zetia 10 mg once every day monitor lipid panel, keep LDL 55-70. 11. Ischemic cardiomyopathy. Appears to be compensated at this time continue carvedilol 25 mg orally twice every day, continue losartan 100 mg orally once every day. 12. COPD. Appears to be stable at this time. 13. Sleep apnea. Patient will need to have a CPAP as an outpatient. 14. DVT prophylaxis. Continue with bilateral knee-high CHARLIE hose. 15. GI prophylaxis. Continue Protonix 40 mg IV push every 24 hours. 16. Acute blood loss anemia likely due to GI bleed. Monitor the patient hemoglobin very closely transfuse for hemoglobin less than 7. 17. Guarded prognosis. Objective - Vital Signs Vital signs: Vital Signs Temp 97.6 F 06/07/23 14:00 Pulse 60 06/07/23 08:56 Resp 16 06/07/23 14:00 BP 135/85 06/07/23 14:00 Pulse Ox 97 06/07/23 14:00 FiO2 Intake & Output 06/06/23 06/07/23 06/07/23 18:59 06:59 18:59 Intake Total 240 Balance 240 Weight 72.575 kg Intake: Oral 240 Other: Voiding Method Urinal Urinal # Voids 3 3 - Labs CBC & Chem 7: 06/08/23 07:04 06/08/23 07:04 Labs: Abnormal Lab Results - Last 24 Hours (Table) 06/06/23 06/07/23 06/07/23 Range/Units 20:23 06:12 06:40 RBC 3.00 L (4.40-5.60) X 10*6/uL Hgb 7.0 L (13.0-17.0) g/dL Hct 24.5 L (39.6-50.0) % MCH 23.3 L (27.0-32.0) pg MCHC 28.6 L (32.0-37.0) g/dL RDW 18.1 H (11.5-14.5) % NRBC/100 WBC Diff 0.09 H (0.00-0.01) X 10*3/uL Chloride (96-109) mmol/L Carbon Dioxide (21.6-31.8) mmol/L BUN (9.0-27.0) mg/dL Creatinine (0.6-1.5) mg/dL Est GFR (CKD-EPI) (>=60) POC Glucose (mg/dL) 299 H 121 H (70-110) mg/dL Calcium (8.7-10.3) mg/dL 06/07/23 06/07/23 06/07/23 Range/Units 06:40 18:00 18:16 RBC (4.40-5.60) X 10*6/uL Hgb (13.0-17.0) g/dL Hct (39.6-50.0) % MCH (27.0-32.0) pg MCHC (32.0-37.0) g/dL RDW (11.5-14.5) % NRBC/100 WBC Diff (0.00-0.01) X 10*3/uL Chloride 111 H (96-109) mmol/L Carbon Dioxide 18.7 L (21.6-31.8) mmol/L BUN 30.3 H (9.0-27.0) mg/dL Creatinine 1.7 H (0.6-1.5) mg/dL Est GFR (CKD-EPI) 46 L (>=60) POC Glucose (mg/dL) 66 L 68 L (70-110) mg/dL Calcium 7.8 L (8.7-10.3) mg/dL
--- NOTE | 2023-06-08 18:43 | P.PN ---
Subjective Progress Note Date: 06/08/23 HISTORY OF PRESENT ILLNESS: This is a 58 years old male with past medical history of triple-vessel coronary artery disease, atrial fibrillation on Eliquis at home, hypertension, hyperlipidemia. His motor grader rough grade is Dr. Mc. He is on aspirin and Tylenol as well. He presents because of syncope. Patient has been having dizziness for the last few days, immediately after he had to do his job done last Wednesday He states he has bad teeth and he has bleeding gums for the last 2 weeks so he stopped his Eliquis, his dentist took all his teeth out about 25 of them last Wednesday so he can get dentures during the procedure and immediately after he had some bleeding from his gums and sinuses, amount more than a cup and since then he has been having dizziness especially when he walks yesterday he was going to the [employer] he was feeling dizzy and after couple minutes of dizziness He finds himself on the floor with bleeding from his forehead where stitches were placed here in the emergency room and he has nose trauma. So he was sent to the emergency room Patient currently lying in bed fully awake and oriented, he has bandage in his forehead, little tenderness in his nose but there is no obvious bruise. All his teeth are missing but there is no obvious wound or active bleeding currently He denies abdominal pain vomiting diarrhea, no chest pain or dyspnea or coughing. No headache weakness or numbness. No significant dizziness right now He denies smoking alcohol and illicit drugs Of note patient stopped his Eliquis 2 weeks ago when he started having bleeding gums. 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 Also denies any blood in the stool or black stool. No vomiting blood. No bleeding from anywhere else and occult blood in the stool was negative Patient hemodynamically stable Hemoglobin dropped with from baseline 10-12 down to 8.4 on admission and currently 7.7 His creatinine went up to 1.7 with baseline 0.9-1.2. Rest of BMP and liver enzymes were unremarkable He has CT of the head and neck which showing moderate atrophy with bilateral marcus tricular dilatation secondary to atrophy but cannot rule out normal pressure hydrocephalus EKG showing A-fib with a rate of 79, T wave inversion in the inferior leads which is seen in the old EKG. However there is a new T wave inversion in V5 V6 not seen and he KG 2 months ago Patient had cardiac cath about a year ago showing severe triple-vessel coronary artery disease 06/06/2023 patient awake alert. Complaining of from the distal headache and dizziness Walking is fine No more bleeding from the gum Hemoglobin 7.2 Start iron pills Transfuse if hemoglobin less than 7 Cardiology consult evaluated the patient pending their note per staff patient can be downgraded to [facility] Speech swallow evaluation is requested and nutrition consult Patient continued on amoxicillin for his teeth procedure per to hospitalization for 3 more days Continue with normal saline 75 mL/h Currently Eliquis and aspirin on hold later by motor grader rough grade 06/06: Patient is lying down in bed in no apparent distress, he is upset because he has not been eating much except for today, he has not happy with his care so far, he is scheduled supposedly to go for an EGD today however this was switched to EGD and colonoscopy hopefully on Wednesday, meanwhile the patient will be on regular diet and he will be switched to liquid diet later on tomorrow afternoon, patient hemoglobin has dropped to 7, patient does not think this is coming from his GI tract he think that he lost a lot of blood due to his tooth extraction t hat happened the week prior to this. Patient denies any chest pain at this time, he has no shortness of breath, he appears to be generally weak, his blood glucose level appears to be appropriate at this time, we will continue to monitor the patient very closely. 06/07: Patient is laying down in bed he feels better he started to use his prep for his colonoscopy tomorrow morning, he is on clear liquid diet, he has no chest pain at this time, he does not appear to have a significant shortness of b reath, he has no abdominal pain, he denies any unusual symptoms, he is scheduled to go for EGD and colonoscopy tomorrow morning with Dr. Bolden. REVIEW OF SYSTEMS: Constitutional: No documented fever, no chills, no night sweats. positive for weight change. positive for weakness,no fatigue or lethargy. No daytime sleepiness. EENT: No headache. No blurred vision or double vision, no loss of vision. No loss of Hearing, no ringing in the ears, no dizziness. No nasal drainage or congestion. No epistaxis. No sore throat. Lungs: No shortness of breath, no cough, no sputum production. No wheezing. Reports dyspnea with activity. Cardiovascular: No chest pain, mild lower extremity edema. No palpitations. No paroxysmal nocturnal dyspnea. No orthopnea. No lightheadedness or dizzin ess. No syncopal episodes. Abdominal: Reports no abdominal pain. No nausea, vomiting. No diarrhea. No constipation. No bloody or tarry stools reports loss of appetite. Genitourinary: No dysuria, increased frequency, urgency. No urinary retention. Musculoskeletal: No myalgias. No muscle weakness, no gait dysfunction, no frequent falls. No back pain. No neck pain. Integumentary: No wounds, no lesions. No rash or pruritus. No unusual bruising. No change in hair or nails. Neurologic: No aphasia. No facial droop. No change in mentation. No head injury. No headache. No paralysis. No paresthesia. Psychiatric: No depression. No anxiety. No mood swings. Endocrine: No abnormal blood sugars. No weight change. PHYSICAL EXAMINATION: General: 58-year-old male laying down in bed in no apparent distress. HEENT: Head is atraumatic, normocephalic, pupils were equal round reactive to light and recommendation, extraocular muscle movement were intact, sclera nonicteric, conjunctivae were pale, mucous membranes of the mouth are somewhat dry. Neck: Supple, no JVP, normal carotid upstroke bilaterally, no lymphadenopathy. Chest: Decreased breath sounds at the bases, few rhonchi, no expiratory wheezes, no chest wall tenderness, no intercostal retractions. Heart: First heart sound is normal, second heart sound is normal there is systolic ejection murmur 2/6 located in the left sternal border. Abdomen: Soft, nontender, nondistended, positive bowel sounds. Extremities: There is +1 edema no calf tenderness DP +2 bilaterally. Neurologic examination: Patient is awake alert and oriented x 3, cranial nerves II-12 appear grossly intact, muscle power were 5 out of 5 in upper extremities and 5 out of 5 in bilateral lower extremities, deep tendon reflexes normal bilaterally. ASSESSMENT AND PLAN: 1. Syncopal episode most likely etiology is related to anemia and/or acute ki dney injury, unlikely to be cardiac etiology. Continue to monitor the patient very closely. 2. Acute kidney injury. Continue IV fluid resuscitation, monitor the patient CMP over the next 24 hours. 3. New onset anemia, acute blood loss most likely chronic GI loss. Patient has never had EGD and colonoscopy we will arrange for EGD and colonoscopy with Dr. Salgado on Wednesday morning. 4. Accelerated hypertension. Continue patient on amlodipine 5 mg once a day, Coreg 25 mg orally twice every day losartan 100 mg once every day, monitor the patient blood pressure very closely. 5. Head injury with forehead laceration status postrepair continue patient on amoxicillin 500 mg orally 3 times every day. 6. Persistent atrial fibrillation. Continue patient on Coreg 25 mg orally twice every day patient has been off Eliquis due to his upcoming procedure. 7. Coronary artery disease with prior bypass surgery and stents. Continue patient on atorvastatin 80 mg once every day, ezetimibe 10 mg once every day, carvedilol 25 mg orally twice every day. 8. Diabetes melitis type II. Continue Levemir 12 units at bedtime, with a sliding scale insulin. Monitor the patient blood glucose level 4 times every day. 9. Hypertension and hypertensive cardiovascular disease. Continue amlodipine 5 mg once every day, continue carvedilol 25 mg orally twice every day, and losartan 100 mg once every day monitor the patient blood pressure very closely. 10. Hyperlipidemia continue patient on atorvastatin 80 mg once every day and Zetia 10 mg once every day monitor lipid panel, keep LDL 55-70. 11. Ischemic cardiomyopathy. Appears to be compensated at this time continue carvedilol 25 mg orally twice every day, continue losartan 100 mg orally once every day. 12. COPD. Appears to be stable at this time. 13. Sleep apnea. Patient will need to have a CPAP as an outpatient. 14. DVT prophylaxis. Continue with bilateral knee-high CHARLIE hose. 15. GI prophylaxis. Continue Protonix 40 mg IV push every 24 hours. 16. Acute blood loss anemia likely due to GI bleed. Monitor the patient hemoglobin very closely transfuse for hemoglobin less than 7. 17. Guarded prognosis. Objective - Vital Signs Vital signs: Vital Signs Temp 97.5 F L 06/08/23 07:34 Pulse 59 L 06/08/23 02:17 Resp 16 06/08/23 07:34 BP 129/80 06/08/23 07:34 Pulse Ox 100 06/08/23 07:34 FiO2 Intake & Output 06/07/23 06/08/23 06/08/23 18:59 06:59 18:59 Intake Total 118 Output Total 150 Balance -32 Weight 72.575 kg Intake: Oral 118 Output: Urine 150 Other: Voiding Method Urinal Urinal # Voids 2 3 - Labs CBC & Chem 7: 06/08/23 07:04 06/08/23 07:04 Labs: Abnormal Lab Results - Last 24 Hours (Table) 06/07/23 06/07/23 06/07/23 Range/Units 10:16 18:00 18:16 RBC (4.40-5.60) X 10*6/uL Hgb (13.0-17.0) g/dL Hct (39.6-50.0) % MCH (27.0-32.0) pg MCHC (32.0-37.0) g/dL RDW (11.5-14.5) % NRBC/100 WBC Diff (0.00-0.01) X 10*3/uL Chloride (96-109) mmol/L Carbon Dioxide (21.6-31.8) mmol/L BUN (9.0-27.0) mg/dL Creatinine (0.6-1.5) mg/dL Est GFR (CKD-EPI) (>=60) POC Glucose (mg/dL) 66 L 68 L (70-110) mg/dL Calcium (8.7-10.3) mg/dL Total Protein (6.2-8.2) g/dL Albumin (3.8-4.9) g/dL Albumin/Globulin Ratio (1.60-3.17) Ratio Vitamin B12 1207.0 H (200.0-944.0) pg/mL 06/07/23 06/08/23 06/08/23 Range/Units 20:40 07:04 07:04 RBC 3.24 L (4.40-5.60) X 10*6/uL Hgb 7.5 L (13.0-17.0) g/dL Hct 26.3 L (39.6-50.0) % MCH 23.1 L (27.0-32.0) pg MCHC 28.5 L (32.0-37.0) g/dL RDW 18.5 H (11.5-14.5) % NRBC/100 WBC Diff 0.11 H (0.00-0.01) X 10*3/uL Chloride 111 H (96-109) mmol/L Carbon Dioxide 17.4 L (21.6-31.8) mmol/L BUN 30.6 H (9.0-27.0) mg/dL Creatinine 1.8 H (0.6-1.5) mg/dL Est GFR (CKD-EPI) 43 L (>=60) POC Glucose (mg/dL) 219 H (70-110) mg/dL Calcium 8.0 L (8.7-10.3) mg/dL Total Protein 5.5 L (6.2-8.2) g/dL Albumin 2.9 L (3.8-4.9) g/dL Albumin/Globulin Ratio 1.12 L (1.60-3.17) Ratio Vitamin B12 (200.0-944.0) pg/mL 06/08/23 Range/Units 11:54 RBC (4.40-5.60) X 10*6/uL Hgb (13.0-17.0) g/dL Hct (39.6-50.0) % MCH (27.0-32.0) pg MCHC (32.0-37.0) g/dL RDW (11.5-14.5) % NRBC/100 WBC Diff (0.00-0.01) X 10*3/uL Chloride (96-109) mmol/L Carbon Dioxide (21.6-31.8) mmol/L BUN (9.0-27.0) mg/dL Creatinine (0.6-1.5) mg/dL Est GFR (CKD-EPI) (>=60) POC Glucose (mg/dL) 117 H (70-110) mg/dL Calcium (8.7-10.3) mg/dL Total Protein (6.2-8.2) g/dL Albumin (3.8-4.9) g/dL Albumin/Globulin Ratio (1.60-3.17) Ratio Vitamin B12 (200.0-944.0) pg/mL
[2023-06-08 20:10] LABS: Glucose,Whole Blood 169 mg/dL (70-110)
[2023-06-08] MEDS: DEXTROSE 5%-0.45% NACL 1,000 ML IV SCH (20:44)
[2023-06-09 05:42] LABS: Glucose,Whole Blood 135 mg/dL (70-110)
[2023-06-09 08:02] LABS: Anisocytosis Slight; Basophils # (A) 0.1 k/uL (0-0.2); Basophils % (A) 1 %; Eosinophils # (A) 0.3 k/uL (0-0.7); Eosinophils % (A) 5 %; HCT 27.8 % (39.0-53.0); HGB 8.2 gm/dL (13.0-17.5); Hypochromasia Marked; Lymphocytes # (A) 1.1 k/uL (1.0-4.8); Lymphocytes % (A) 20 %; MCH 23.9 pg (25.0-35.0); MCHC 29.5 g/dL (31.0-37.0); MCV 80.8 fL (80.0-100.0); Mean Platelet Volume 9.6; Microcytosis Slight; Monocytes # (A) 0.7 k/uL (0-1.0); Monocytes % (A) 12 %; Neutrophils # (A) 3.2 k/uL (1.3-7.7); Neutrophils % (A) 58 %; Platelet Count 245 k/uL (150-450); Poikilocytosis Moderate; RBC 3.44 m/uL (4.30-5.90); RDW 18.5 % (11.5-15.5); WBC 5.5 k/uL (3.8-10.6)
[2023-06-09 08:25] LABS: ALT 46 U/L (4-49); AST 37 U/L (17-59); African American GFR (CKD) 53 (>60 ml/min/1.73 sqM); Albumin 2.5 g/dL (3.5-5.0); Albumin/Globulin Ratio 0.8; Alkaline Phosphatase 84 U/L (38-126); Anion Gap 9 mmol/L; Blood Urea Nitrogen 29 mg/dL (9-20); Calcium 7.8 mg/dL (8.4-10.2); Carbon Dioxide 16 mmol/L (22-30); Chloride 115 mmol/L (98-107); Glucose 120 mg/dL (74-99); Non-African American GFR(CKD) 45 (>60 ml/min/1.73 sqM); Sodium 140 mmol/L (137-145); Total Bilirubin 0.7 mg/dL (0.2-1.3); Total Protein 5.5 g/dL (6.3-8.2)
[2023-06-09] MEDS ORDERED: PROPOFOL 10 MG/ML 20 ML VIAL IV ONE (08:44)
[2023-06-09] MEDS: IV FLUID CONTINUATION 400 ML IV ONE (08:48)
--- NOTE | 2023-06-09 09:21 | P.PCN ---
Date of Procedure: 06/09/23 Description of Procedure: PREOPERATIVE DIAGNOSIS: Acute gastrointestinal bleeding Acute blood loss anemia POSTOPERATIVE DIAGNOSIS: Acute esophageal ulcer with bleeding Acute gastritis OPERATION: Esophagogastroduodenoscopy SURGEON: Zenaida Salgado MD ANESTHESIA: MAC. INDICATIONS: The patient is a 58-year-old male who presents with gastrointestinal bleeding and acute blood loss anemia. Benefits and risks of the procedure were described. Informed consent was obtained. DESCRIPTION: The patient was brought into the endoscopy suite and laid in the left lateral decubitus position. An Olympus gastroscope was passed along the posterior oropharynx down to the distal esophagus where the squamocolumnar junction was encountered at 40 cm from the incisors. The stomach was entered and ulcer with bleeding at the GE junction was found. Additional findings are listed below. The first through third portion of the duodenum was examined and unremarkable. Retroflexion of the scope confirmed Hill grade 2 lower esophageal valve. The squamocolumnar junction demonstrated LA grade B erosive esophagitis. The stomach was desufflated. The patient tolerated the procedure well. FINDINGS: Squamocolumnar junction 40 cm from the incisors. Diaphragmatic hiatus at 40 cm. Acute esophageal ulceration, 6 mm at GE junction with bleeding Hill grade 2 lower esophageal valve. LA grade B erosive esophagitis. No active duodenitis. Acute on chronic gastritis RECOMMENDATIONS: 1. Carafate 1 g 3 times daily in suspension for 2 weeks 2. Protonix 40 mg twice daily for 2 weeks 3. Ground diet due to edentulous
--- NOTE | 2023-06-09 09:24 | P.PCN ---
Date of Procedure: 06/09/23 Description of Procedure: PREOPERATIVE DIAGNOSIS: Acute blood loss anemia status post transfusion Positive occult stool Gastrointestinal bleeding with melena POSTOPERATIVE DIAGNOSIS: Acute blood loss anemia status post transfusion Positive occult stool Gastrointestinal bleeding with melena OPERATION: Colonoscopy to the cecum, ileocecal valve and appendiceal orifice SURGEON: Zenaida Salgado MD. ANESTHESIA: MAC. INDICATIONS: The patient is a 58-year-old male who presents with gastrointestinal bleeding and positive occult stool. Benefits and risks were described and informed consent was obtained. DESCRIPTION OF PROCEDURE: The patient had undergone attempted Golytely prep 4 L. The patient had been brought into the operating room and laid in the left lateral decubitus position. After adequate intravenous sedation, the rectum was examined with 2% lidocaine jelly. No prolapse external hemorrhoids were found. The rectal tone was tight. An Olympus colonoscope was gently advanced to the cecum with clear visualization of the ileocecal valve including appendiceal orifice. The prep was fair to poor. No sigmoid diverticulosis was encountered without active bleeding. No active colonic bleeding was found. No intraluminal masses were identified within the colon. No evidence of focal colitis was found. Retroflexion of the scope demonstrated grade 2 internal hemorrhoids without inflammation the colon was desufflated. The patient had tolerated the procedure well. Withdrawal time was over 6 minutes. FINDINGS: Aronchick preparation quality scale 3+ (1-5) Internal hemorrhoids, grade 2 without bleeding No thrombosed hemorrhoid identified. No arteriovenous malformations. Nondiagnostic for colonic polyps due to poor prep No focal colitis. Melanotic stool consistent with upper GI bleed RECOMMENDATIONS: 1. Low fiber diet 2. Treatment for upper GI bleed advised Plan - Discharge Summary New Discharge Prescriptions: No Action Ezetimibe [Zetia] 10 mg PO DAILY Atorvastatin [Lipitor] 80 mg PO DAILY Furosemide [Lasix] 40 mg PO DAILY metFORMIN HCL 1,000 mg PO BID amLODIPine [Norvasc] 5 mg PO DAILY Acetaminophen Tab [Tylenol Tab] 500 mg PO Q8H PRN PRN Reason: Pain Amoxicillin 500 mg PO Q8H carvediloL [Coreg] 25 mg PO BID Losartan Potassium [Cozaar] 100 mg PO DAILY #30 tablet hydrALAZINE HCL [Apresoline] 50 mg PO BID Insulin Aspart [NovoLOG Flexpen] 7 units SQ TID-W/MEALS Insulin Glargine,Hum.rec.anlog [Toujeo Solostar] 30 units SQ HS Discharge Medication List Ezetimibe [Zetia] 10 mg PO DAILY 12/15/20 [History] Losartan Potassium [Cozaar] 100 mg PO DAILY #30 tablet 03/18/22 [Rx] Atorvastatin [Lipitor] 80 mg PO DAILY 04/09/22 [History] Furosemide [Lasix] 40 mg PO DAILY 04/09/22 [History] metFORMIN HCL 1,000 mg PO BID 04/09/22 [History] Acetaminophen Tab [Tylenol Tab] 500 mg PO Q8H PRN 06/05/23 [History] Amoxicillin 500 mg PO Q8H 06/05/23 [History] Insulin Aspart [NovoLOG Flexpen] 7 units SQ TID-W/MEALS 06/05/23 [History] Insulin Glargine,Hum.rec.anlog [Toujeo Solostar] 30 units SQ HS 06/05/23 [History] amLODIPine [Norvasc] 5 mg PO DAILY 06/05/23 [History] carvediloL [Coreg] 25 mg PO BID 06/05/23 [History] hydrALAZINE HCL [Apresoline] 50 mg PO BID 06/05/23 [History] Follow up Appointment(s)/Referral(s): Jorge Luis Ga MD [STAFF PHYSICIAN] - 1 Week Kelly Montesinos MD [Primary Care Provider] - 1 Week
--- NOTE | 2023-06-09 09:31 | P.PN ---
Subjective Progress Note Date: 06/09/23 Consult reason: sycope, atrial fibrillation History of present illness: History of present illness: This is a 58-year-old male patient of Dr. Ga with past medical history of coronary artery disease with previous stent and CABG, persistent atrial fibr illation on Eliquis, diabetes, hypertension, hyperlipidemia, obstructive sleep apnea, prior DVT history, nicotine dependence, COPD, ischemic cardiomyopathy. We have been asked to evaluate the patient for syncope and atrial fibrillation. Patient gives history that he was at the grocery store and he started feeling dizzy, grabbed a hold of the shopping cart and the next thing he knew he was on the ground and people were standing over him. He denies having any recent vomiting no blood in his stools no black stools. He denies have any chest pain prior to this. He has had some episodes of lightheadedness dizziness recently. Patient has been off his Eliquis for the past 2 weeks as he took himself off because after extraction of teeth he was having some bleeding. Patient presented with a blood pressure of 178/120 and now 106/76. Orthostatic vital signs have been negative. Laceration closure of forehead wound was performed. Patient sustained patient is seen today in the emergency center waiting for a bed on the cardiac stepdown unit. EKG A-fib [address] of the brain and cervical spine revealed no acute intracranial abnormality and no acute cervical spine fracture or traumatic malalignment. Chronic changes noted on both. WBC 6.8, hemoglobin 7.7, platelet count 292. BUN 42 creatinine 1.78. Home cardiac medications: Amlodipine 5 mg daily, Lipitor 80 mg daily, Coreg 25 mg twice daily, Zetia 10 mg daily, Lasix 40 mg daily, hydralazine 50 mg twice daily, losartan 100 mg daily Cardiac catheterization performed 04/10/2022 revealed severe triple-vessel disease. Patent stent segment in the ramus intermedius and proximal left circumflex. Patent MAE to LAD. Patent SVG to OM. Chronically occluded SVG to the RCA and to the diagonal branch. Recommendations at the time was for medical management and restore sinus rhythm. Most recent electrocardioversion 04/2019 for atrial fibrillation Echocardiogram 03/10/2022 revealed moderate concentric left ventricular hypertrophy, EF 50-60, probably pericardial stripe. Biatrial enlargement. Mild mitral regurgitation, mild to moderate tricuspid regurgitation Exercise stress test 11/2019 was nondiagnostic due to baseline EKG abnormalities 06/06 Repeat hemoglobin is 7.3. Patient has been seen by oncology regarding anemia with recommendations for surgical consult. Patient has been seen by general surgery and is scheduled for EGD and colonoscopy. Echocardiogram report is pending. Blood pressure 137/82, heart rate in the 50s and 60s. Patient denies chest pain. 06/07 Blood pressure 129/80, heart rate 59, pulse ox 100% on room air. Echocardiogram reveals EF of 40 to 45%. Moderate to severe pulmonary hypertension. Moderate posterior directed mitral regurgitation and severe tricuspid regurgitation. Hemoglobin from yesterday 7.0. There are consults added for general surgery regarding anemia. 05/29 Patient denies having chest pain, no shortness of breath no lightheadedness or dizziness. He is scheduled for endoscopy today. Blood pressure 120/74, heart rate in the 50s, pulse ox 96% on room air. Repeat hemoglobin is 8.2. BUN 29 creatinine 1.62. CO2 is 16. Physical examination: Gen: This is a 58-year-old male resting in no acute distress VS: reviewed HEENT: Head has large white gauze wrapping, normocephalic. Pupils equal, round. Sclerae is anicteric. NECK: Supple. No JVD. LUNGS: Clear to auscultation. No wheezes or rhonchi. No intercostal retractions. HEART: Regular rate and rhythm. 2/6 systolic ejection murmur. ABDOMEN: Soft No tenderness. EXTREMITIES: No pedal edema. No calf tenderness. NEUROLOGICAL: Patient is awake, alert and oriented x3. Assessment: Syncopal episode most likely etiology is related to anemia and/or acute kidney injury, unlikely to be cardiac etiology Acute kidney injury New onset anemia, acute blood loss most likely Accelerated hypertension Head injury with forehead laceration status postrepair Persistent atrial fibrillation Coronary artery disease with prior bypass surgery and stents Diabetes Hypertension Hyperlipidemia Ischemic cardiomyopathy COPD Sleep apnea Valvular heart disease with moderate mitral regurgitation, severe tricuspid regurgitation Moderate to severe pulmonary hypertension Plan: Continue patient's home cardiac medications Continue to hold Eliquis due to bleeding and anemia Abnormalities on echocardiogram will be followed up in the outpatient setting. Patient will follow-up with Dr. Ga in 1 to 2 weeks following discharge. Cardiology will sign off this case and follow on an as-needed basis. Please reconsult for any new concerns. Nurse practitioner note has been reviewed, I agree with documented findings and plan of care. Patient was seen and examined. Objective - Vital Signs Vital signs: Vital Signs Temp 97.4 F L 06/09/23 07:39 Pulse 52 L 06/09/23 07:39 Resp 16 06/09/23 07:39 BP 120/74 06/09/23 07:39 Pulse Ox 96 06/09/23 07:39 FiO2 Intake & Output 06/08/23 06/09/23 06/09/23 18:59 06:59 18:59 Intake Total 338 Output Total 300 Balance 38 Intake: Oral 338 Output: Urine 300 Other: # Bowel Movements 2 - Labs CBC & Chem 7: 06/09/23 06:43 06/09/23 06:43 Labs: Abnormal Lab Results - Last 24 Hours (Table) 06/08/23 06/08/23 06/08/23 Range/Units 07:04 07:04 11:54 RBC 3.24 L (4.40-5.60) X 10*6/uL Hgb 7.5 L (13.0-17.0) g/dL Hct 26.3 L (39.6-50.0) % MCH 23.1 L (27.0-32.0) pg MCHC 28.5 L (32.0-37.0) g/dL RDW 18.5 H (11.5-14.5) % NRBC/100 WBC Diff 0.11 H (0.00-0.01) X 10*3/uL Chloride 111 H (96-109) mmol/L Carbon Dioxide 17.4 L (21.6-31.8) mmol/L BUN 30.6 H (9.0-27.0) mg/dL Creatinine 1.8 H (0.6-1.5) mg/dL Est GFR (CKD-EPI) 43 L (>=60) POC Glucose (mg/dL) 117 H (70-110) mg/dL Calcium 8.0 L (8.7-10.3) mg/dL Total Protein 5.5 L (6.2-8.2) g/dL Albumin 2.9 L (3.8-4.9) g/dL Albumin/Globulin Ratio 1.12 L (1.60-3.17) Ratio 06/08/23 06/08/23 06/09/23 Range/Units 17:13 20:09 05:41 RBC (4.40-5.60) X 10*6/uL Hgb (13.0-17.0) g/dL Hct (39.6-50.0) % MCH (27.0-32.0) pg MCHC (32.0-37.0) g/dL RDW (11.5-14.5) % NRBC/100 WBC Diff (0.00-0.01) X 10*3/uL Chloride (96-109) mmol/L Carbon Dioxide (21.6-31.8) mmol/L BUN (9.0-27.0) mg/dL Creatinine (0.6-1.5) mg/dL Est GFR (CKD-EPI) (>=60) POC Glucose (mg/dL) 180 H 169 H 135 H (70-110) mg/dL Calcium (8.7-10.3) mg/dL Total Protein (6.2-8.2) g/dL Albumin (3.8-4.9) g/dL Albumin/Globulin Ratio (1.60-3.17) Ratio
[2023-06-09] MEDS: PANTOPRAZOLE 40 MG/10 ML VIAL IVP SCH (11:21)
[2023-06-09 11:28] LABS: Glucose,Whole Blood 113 mg/dL (70-110)
[2023-06-09 11:44] LABS: Methylmalonic Acid 0.39 umol/L (<0.40)
[2023-06-09] MEDS: SUCRALFATE 1 GM TAB PO SCH (15:37)
[2023-06-09 17:17] LABS: Glucose,Whole Blood 241 mg/dL (70-110)
--- NOTE | 2023-06-09 18:35 | P.PN ---
Subjective Progress Note Date: 06/09/23 HISTORY OF PRESENT ILLNESS: This is a 58 years old male with past medical history of triple-vessel coronary artery disease, atrial fibrillation on Eliquis at home, hypertension, hyperlipidemia. His lace roller is Dr. Mc. He is on aspirin and Tylenol as well. He presents because of syncope. Patient has been having dizziness for the last few days, immediately after he had to do his job done last Wednesday He states he has bad teeth and he has bleeding gums for the last 2 weeks so he stopped his Eliquis, his dentist took all his teeth out about 25 of them last Wednesday so he can get dentures during the procedure and immediately after he had some bleeding from his gums and sinuses, amount more than a cup and since then he has been having dizziness especially when he walks yesterday he was going to the [employer] he was feeling dizzy and after couple minutes of dizziness He finds himself on the floor with bleeding from his forehead where stitches were placed here in the emergency room and he has nose trauma. So he was sent to the emergency room Patient currently lying in bed fully awake and oriented, he has bandage in his forehead, little tenderness in his nose but there is no obvious bruise. All his teeth are missing but there is no obvious wound or active bleeding currently He denies abdominal pain vomiting diarrhea, no chest pain or dyspnea or coughing. No headache weakness or numbness. No significant dizziness right now He denies smoking alcohol and illicit drugs Of note patient stopped his Eliquis 2 weeks ago when he started having bleeding gums. 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 Also denies any blood in the stool or black stool. No vomiting blood. No bleeding from anywhere else and occult blood in the stool was negative Patient hemodynamically stable Hemoglobin dropped with from baseline 10-12 down to 8.4 on admission and currently 7.7 His creatinine went up to 1.7 with baseline 0.9-1.2. Rest of BMP and liver enzymes were unremarkable He has CT of the head and neck which showing moderate atrophy with bilateral marcus tricular dilatation secondary to atrophy but cannot rule out normal pressure hydrocephalus EKG showing A-fib with a rate of 79, T wave inversion in the inferior leads which is seen in the old EKG. However there is a new T wave inversion in V5 V6 not seen and he KG 2 months ago Patient had cardiac cath about a year ago showing severe triple-vessel coronary artery disease 06/06/2023 patient awake alert. Complaining of from the distal headache and dizziness Walking is fine No more bleeding from the gum Hemoglobin 7.2 Start iron pills Transfuse if hemoglobin less than 7 Cardiology consult evaluated the patient pending their note per staff patient can be downgraded to [facility] Speech swallow evaluation is requested and nutrition consult Patient continued on amoxicillin for his teeth procedure per to hospitalization for 3 more days Continue with normal saline 75 mL/h Currently Eliquis and aspirin on hold later by lace roller 06/06: Patient is lying down in bed in no apparent distress, he is upset because he has not been eating much except for today, he has not happy with his care so far, he is scheduled supposedly to go for an EGD today however this was switched to EGD and colonoscopy hopefully on Wednesday, meanwhile the patient will be on regular diet and he will be switched to liquid diet later on tomorrow afternoon, patient hemoglobin has dropped to 7, patient does not think this is coming from his GI tract he think that he lost a lot of blood due to his tooth extraction t hat happened the week prior to this. Patient denies any chest pain at this time, he has no shortness of breath, he appears to be generally weak, his blood glucose level appears to be appropriate at this time, we will continue to monitor the patient very closely. 06/07: Patient is laying down in bed he feels better he started to use his prep for his colonoscopy tomorrow morning, he is on clear liquid diet, he has no chest pain at this time, he does not appear to have a significant shortness of b reath, he has no abdominal pain, he denies any unusual symptoms, he is scheduled to go for EGD and colonoscopy tomorrow morning with Dr. Salgado 06/08: Patient is lying down in bed appears to be somewhat drowsy, he just got up from the endoscopy suite, patient underwent EGD that showed evidence of erosive esophagitis with 6 mm esophageal ulceration with bleeding, patient did not have any biopsy done to his ulcer or at least is not stated in the report of the surgeon, patient did have a colonoscopy that showed poor prep, diverticulosis no evidence of acute bleed, this test was not diagnostic for polyps, patient apparently was admitted back to the floor, he was started on Carafate 1 g orally 3 times every day, Protonix 40 mg orally twice every for 2 weeks, he was placed on soft diet due to his teeth extractions. REVIEW OF SYSTEMS: Constitutional: No documented fever, no chills, no night sweats. positive for weight change. positive for weakness,no fatigue or lethargy. No daytime s leepiness. EENT: No headache. No blurred vision or double vision, no loss of vision. No loss of Hearing, no ringing in the ears, no dizziness. No nasal drainage or congestion. No epistaxis. No sore throat. Lungs: No shortness of breath, no cough, no sputum production. No wheezing. Reports dyspnea with activity. Cardiovascular: No chest pain, mild lower extremity edema. No palpitations. N o paroxysmal nocturnal dyspnea. No orthopnea. No lightheadedness or dizziness. No syncopal episodes. Abdominal: Reports no abdominal pain. No nausea, vomiting. No diarrhea. No constipation. No bloody or tarry stools reports loss of appetite. Genitourinary: No dysuria, increased frequency, urgency. No urinary retention. Musculoskeletal: No myalgias. No muscle weakness, no gait dysfunction, no frequent falls. No back pain. No neck pain. Integumentary: No wounds, no lesions. No rash or pruritus. No unusual bruising. No change in hair or nails. Neurologic: No aphasia. No facial droop. No change in mentation. No head injury. No headache. No paralysis. No paresthesia. Psychiatric: No depression. No anxiety. No mood swings. Endocrine: No abnormal blood sugars. No weight change. PHYSICAL EXAMINATION: General: 58-year-old male laying down in bed in no apparent distress. HEENT: Head is atraumatic, normocephalic, pupils were equal round reactive to light and recommendation, extraocular muscle movement were intact, sclera nonicteric, conjunctivae were pale, mucous membranes of the mouth are somewhat dry. Neck: Supple, no JVP, normal carotid upstroke bilaterally, no lymphadenopathy. Chest: Decreased breath sounds at the bases, few rhonchi, no expiratory wheezes, no chest wall tenderness, no intercostal retractions. Heart: First heart sound is normal, second heart sound is normal there is systolic ejection murmur 2/6 located in the left sternal border. Abdomen: Soft, nontender, nondistended, positive bowel sounds. Extremities: There is +1 edema no calf tenderness DP +2 bilaterally. Neurologic examination: Patient is awake alert and oriented x 3, cranial nerves II-12 appear grossly intact, muscle power were 5 out of 5 in upper extremities and 5 out of 5 in bilateral lower extremities, deep tendon reflexes normal bilaterally. ASSESSMENT AND PLAN: 1. Syncopal episode most likely etiology is related to anemia and/or acute kidney injury, unlikely to be cardiac etiology. Continue to monitor the patient very closely. 2. Acute kidney injury. Continue IV fluid resuscitation, monitor the patient CMP over the next 24 hours. 3. New onset anemia, acute blood loss most likely due to esophageal ulcer as well as erosive esophagitis. Patient just had EGD and colonoscopy continue with Protonix 40 mg orally twice every day Carafate 1 g orally 3 times every day as recommended by general surgery. 4. Accelerated hypertension. Continue patient on amlodipine 5 mg once a day, Coreg 25 mg orally twice every day losartan 100 mg once every day, monitor the patient blood pressure very closely. 5. Head injury with forehead laceration status postrepair continue patient on amoxicillin 500 mg orally 3 times every day. 6. Persistent atrial fibrillation. Continue patient on Coreg 25 mg orally twice every day, keep the patient off Eliquis for for now. 7. Coronary artery disease with prior bypass surgery and stents. Continue patient on atorvastatin 80 mg once every day, ezetimibe 10 mg once every day, carvedilol 25 mg orally twice every day. 8. Diabetes melitis type II. Continue Levemir 12 units at bedtime, with a sliding scale insulin. Monitor the patient blood glucose level 4 times every day. 9. Hypertension and hypertensive cardiovascular disease. Continue amlodipine 5 mg once every day, continue carvedilol 25 mg orally twice every day, and losartan 100 mg once every day monitor the patient blood pressure very closely. 10. Hyperlipidemia continue patient on atorvastatin 80 mg once every day and Zetia 10 mg once every day monitor lipid panel, keep LDL 55-70. 11. Ischemic cardiomyopathy. Appears to be compensated at this time continue carvedilol 25 mg orally twice every day, continue losartan 100 mg orally once every day. 12. COPD. Appears to be stable at this time. 13. Sleep apnea. Patient will need to have a CPAP as an outpatient. 14. DVT prophylaxis. Continue with bilateral knee-high CHARLIE hose. 15. GI prophylaxis. Continue Protonix 40 mg orally twice every day. 16. Acute blood loss anemia likely due to GI bleed. Monitor the patient hemoglobin very closely transfuse for hemoglobin less than 7. 17. Guarded prognosis. 18. Hopefully home tomorrow morning if his hemoglobin is stable. Objective - Vital Signs Vital signs: Vital Signs Temp 97.3 F L 06/09/23 14:00 Pulse 51 L 06/09/23 10:12 Resp 16 06/09/23 14:00 BP 122/84 06/09/23 14:00 Pulse Ox 100 06/09/23 14:00 FiO2 Intake & Output 06/08/23 06/09/23 06/09/23 18:59 06:59 18:59 Intake Total 338 200 Output Total 300 300 Balance 38 -100 Intake: IV 200 Oral 338 Output: Urine 300 300 Other: Voiding Method Urinal # Bowel Movements 2 - Labs CBC & Chem 7: 06/09/23 06:43 06/09/23 06:43 Labs: Abnormal Lab Results - Last 24 Hours (Table) 06/07/23 06/08/23 06/09/23 Range/Units 10:16 20:09 05:41 RBC (4.30-5.90) m/uL Hgb (13.0-17.5) gm/dL Hct (39.0-53.0) % MCH (25.0-35.0) pg MCHC (31.0-37.0) g/dL RDW (11.5-15.5) % Chloride (98-107) mmol/L Carbon Dioxide (22-30) mmol/L BUN (9-20) mg/dL Creatinine (0.66-1.25) mg/dL Glucose (74-99) mg/dL POC Glucose (mg/dL) 169 H 135 H (70-110) mg/dL Calcium (8.4-10.2) mg/dL Total Protein (6.3-8.2) g/dL Albumin (3.5-5.0) g/dL Copper 1764 H (665-1480) ug/L 06/09/23 06/09/23 06/09/23 Range/Units 06:43 06:43 11:26 RBC 3.44 L (4.30-5.90) m/uL Hgb 8.2 L (13.0-17.5) gm/dL Hct 27.8 L (39.0-53.0) % MCH 23.9 L (25.0-35.0) pg MCHC 29.5 L (31.0-37.0) g/dL RDW 18.5 H (11.5-15.5) % Chloride 115 H (98-107) mmol/L Carbon Dioxide 16 L (22-30) mmol/L BUN 29 H (9-20) mg/dL Creatinine 1.62 H (0.66-1.25) mg/dL Glucose 120 H (74-99) mg/dL POC Glucose (mg/dL) 113 H (70-110) mg/dL Calcium 7.8 L (8.4-10.2) mg/dL Total Protein 5.5 L (6.3-8.2) g/dL Albumin 2.5 L (3.5-5.0) g/dL Copper (665-1480) ug/L 06/09/23 Range/Units 17:15 RBC (4.30-5.90) m/uL Hgb (13.0-17.5) gm/dL Hct (39.0-53.0) % MCH (25.0-35.0) pg MCHC (31.0-37.0) g/dL RDW (11.5-15.5) % Chloride (98-107) mmol/L Carbon Dioxide (22-30) mmol/L BUN (9-20) mg/dL Creatinine (0.66-1.25) mg/dL Glucose (74-99) mg/dL POC Glucose (mg/dL) 241 H (70-110) mg/dL Calcium (8.4-10.2) mg/dL Total Protein (6.3-8.2) g/dL Albumin (3.5-5.0) g/dL Copper (665-1480) ug/L
[2023-06-09 20:26] LABS: Glucose,Whole Blood 238 mg/dL (70-110)
[2023-06-09] MEDS: SODIUM BICARBONATE TAB 650 MG TAB PO SCH (20:34)
[2023-06-10 05:40] LABS: Glucose,Whole Blood 169 mg/dL (70-110)
[2023-06-10 08:49] LABS: Basophils # (A) 0.08 X 10*3/uL (0.00-0.10); Basophils % (A) 1.4 %; Eosinophils # (A) 0.27 X 10*3/uL (0.04-0.35); Eosinophils % (A) 4.6 %; HCT 28.3 % (39.6-50.0); HGB 7.9 g/dL (13.0-17.0); Lymphocytes # (A) 1.29 X 10*3/uL (0.90-5.00); Lymphocytes % (A) 21.8 %; MCHC 27.9 g/dL (32.0-37.0); MCV 82.3 FL (80.0-97.0); Mean Platelet Volume 11.2 FL (9.5-12.2); Monocytes # (A) 0.83 X 10*3/uL (0.20-1.00); NRBC Per 100 WBC 0.03 X 10*3/uL (0.00-0.01); Neutrophils # (A) 3.43 X 10*3/uL (1.80-7.70); Neutrophils % (A) 57.9 %; Platelet Count 252 X 10*3/uL (140-440); RBC 3.44 X 10*6/uL (4.40-5.60); RDW 19.9 % (11.5-14.5); WBC 5.92 X 10*3/uL (4.50-10.00)
[2023-06-10 09:00] LABS: ALT 45 U/L (10-49); AST 34 U/L (14-35); Albumin 2.9 g/dL (3.8-4.9); Albumin/Globulin Ratio 1.12 Ratio (1.60-3.17); Alkaline Phosphatase 89 U/L (41-126); Blood Urea Nitrogen 28.6 mg/dL (9.0-27.0); Calcium 8.1 mg/dL (8.7-10.3); Carbon Dioxide 18.4 mmol/L (21.6-31.8); Chloride 112 mmol/L (96-109); Globulin 2.6 g/dL (1.6-3.3); Glucose 170 mg/dL (70-110); Potassium 4.5 mmol/L (3.5-5.5); Sodium 141 mmol/L (135-145); Total Bilirubin 0.4 mg/dL (0.3-1.2); Total Protein 5.5 g/dL (6.2-8.2)
[2023-06-10 12:12] LABS: Glucose,Whole Blood 134 mg/dL (70-110)
--- NOTE | 2023-06-10 13:20 | P.PN ---
Subjective Progress Note Date: 06/10/23 HISTORY OF PRESENT ILLNESS: This is a 58 years old male with past medical history of triple-vessel coronary artery disease, atrial fibrillation on Eliquis at home, hypertension, hyperlipidemia. His mirror silverer is Dr. Mc. He is on aspirin and Tylenol as well. He presents because of syncope. Patient has been having dizziness for the last few days, immediately after he had to do his job done last Wednesday He states he has bad teeth and he has bleeding gums for the last 2 weeks so he stopped his Eliquis, his dentist took all his teeth out about 25 of them last Wednesday so he can get dentures during the procedure and immediately after he had some bleeding from his gums and sinuses, amount more than a cup and since then he has been having dizziness especially when he walks yesterday he was going to the [employer] he was feeling dizzy and after couple minutes of dizziness He finds himself on the floor with bleeding from his forehead where stitches were placed here in the emergency room and he has nose trauma. So he was sent to the emergency room Patient currently lying in bed fully awake and oriented, he has bandage in his forehead, little tenderness in his nose but there is no obvious bruise. All his teeth are missing but there is no obvious wound or active bleeding currently He denies abdominal pain vomiting diarrhea, no chest pain or dyspnea or coughing. No headache weakness or numbness. No significant dizziness right now He denies smoking alcohol and illicit drugs Of note patient stopped his Eliquis 2 weeks ago when he started having bleeding gums. 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 Also denies any blood in the stool or black stool. No vomiting blood. No bleeding from anywhere else and occult blood in the stool was negative Patient hemodynamically stable Hemoglobin dropped with from baseline 10-12 down to 8.4 on admission and currently 7.7 His creatinine went up to 1.7 with baseline 0.9-1.2. Rest of BMP and liver enzymes were unremarkable He has CT of the head and neck which showing moderate atrophy with bilateral marcus tricular dilatation secondary to atrophy but cannot rule out normal pressure hydrocephalus EKG showing A-fib with a rate of 79, T wave inversion in the inferior leads which is seen in the old EKG. However there is a new T wave inversion in V5 V6 not seen and he KG 2 months ago Patient had cardiac cath about a year ago showing severe triple-vessel coronary artery disease 06/06/2023 patient awake alert. Complaining of from the distal headache and dizziness Walking is fine No more bleeding from the gum Hemoglobin 7.2 Start iron pills Transfuse if hemoglobin less than 7 Cardiology consult evaluated the patient pending their note per staff patient can be downgraded to [facility] [place] Speech swallow evaluation is requested and nutrition consult Patient continued on amoxicillin for his teeth procedure per to hospitalization for 3 more days Continue with normal saline 75 mL/h Currently Eliquis and aspirin on hold later by mirror silverer 06/06: Patient is lying down in bed in no apparent distress, he is upset because he has not been eating much except for today, he has not happy with his care so far, he is scheduled supposedly to go for an EGD today however this was switched to EGD and colonoscopy hopefully on Wednesday, meanwhile the patient will be on regular diet and he will be switched to liquid diet later on tomorrow afternoon, patient hemoglobin has dropped to 7, patient does not think this is coming from his GI tract he think that he lost a lot of blood due to his tooth extraction t hat happened the week prior to this. Patient denies any chest pain at this time, he has no shortness of breath, he appears to be generally weak, his blood glucose level appears to be appropriate at this time, we will continue to monitor the patient very closely. 06/07: Patient is laying down in bed he feels better he started to use his prep for his colonoscopy tomorrow morning, he is on clear liquid diet, he has no chest pain at this time, he does not appear to have a significant shortness of b reath, he has no abdominal pain, he denies any unusual symptoms, he is scheduled to go for EGD and colonoscopy tomorrow morning with Dr. Salgado 06/08: Patient is lying down in bed appears to be somewhat drowsy, he just got up from the endoscopy suite, patient underwent EGD that showed evidence of erosive esophagitis with 6 mm esophageal ulceration with bleeding, patient did not have any biopsy done to his ulcer or at least is not stated in the report of the surgeon, patient did have a colonoscopy that showed poor prep, diverticulosis no evidence of acute bleed, this test was not diagnostic for polyps, patient apparently was admitted back to the floor, he was started on Carafate 1 g orally 3 times every day, Protonix 40 mg orally twice every for 2 weeks, he was placed on soft diet due to his teeth extractions. 06/09: Patient is lying down in bed he appears to be somewhat short of breath today, he is denying any chest pain at this time, he continues to be somewhat short of breath, he denies any abdominal pain, he has not had a bowel movement today, his hemoglobin is down to 7.9 from 8.2, no more bleeding at this point in time, continue to monitor the patient hemoglobin over the next 24 hours, continue with the Protonix 40 mg orally twice every day as well as Carafate 1 g orally 3 times every day, monitor the patient very closely, if his hemoglobin is stable tomorrow morning he can be discharged home we will obtain chest x-ray for further evaluation of his shortness of breath. REVIEW OF SYSTEMS: Constitutional: No documented fever, no chills, no night sweats. positive for weight change. positive for weakness,no fatigue or lethargy. No daytime sleepiness. EENT: No headache. No blurred vision or double vision, no loss of vision. No loss of Hearing, no ringing in the ears, no dizziness. No nasal drainage or congestion. No epistaxis. No sore throat. Lungs: positive for shortness of breath, no cough, no sputum production. minimal wheezing. Reports dyspnea with activity. Cardiovascular: No chest pain, mild lower extremity edema. No palpitations. No paroxysmal nocturnal dyspnea. No orthopnea. No lightheadedness or dizziness. No syncopal episodes. Abdominal: Reports no abdominal pain. No nausea, vomiting. No diarrhea. No constipation. No bloody or tarry stools reports loss of appetite. Genitourinary: No dysuria, increased frequency, urgency. No urinary retention. Musculoskeletal: No myalgias. No muscle weakness, no gait dysfunction, no fr equent falls. No back pain. No neck pain. Integumentary: No wounds, no lesions. No rash or pruritus. No unusual bruising. No change in hair or nails. Neurologic: No aphasia. No facial droop. No change in mentation. No head injury. No headache. No paralysis. No paresthesia. Psychiatric: positive for depression. No anxiety. No mood swings. Endocrine: No abnormal blood sugars. No weight change. PHYSICAL EXAMINATION: General: 58-year-old male laying down in bed in no apparent distress. HEENT: Head is atraumatic, normocephalic, pupils were equal round reactive to light and recommendation, extraocular muscle movement were intact, sclera nonicteric, conjunctivae were pale, mucous membranes of the mouth are somewhat dry. Neck: Supple, no JVP, normal carotid upstroke bilaterally, no lymphadenopathy. Chest: Decreased breath sounds at the bases, few rhonchi, minial expiratory wheezes, no chest wall tenderness, no intercostal retractions, decreased TF at the bases Heart: First heart sound is normal, second heart sound is normal there is systolic ejection murmur 2/6 located in the left sternal border. Abdomen: Soft, nontender, nondistended, positive bowel sounds. Extremities: There is +1 edema no calf tenderness DP +2 bilaterally. Neurologic examination: Patient is awake alert and oriented x 3, cranial nerves II-12 appear grossly intact, muscle power were 5 out of 5 in upper extremities and 5 out of 5 in bilateral lower extremities, deep tendon reflexes normal bila terally. ASSESSMENT AND PLAN: 1. Syncopal episode most likely etiology is related to anemia and/or acute kidney injury, unlikely to be cardiac etiology. Continue to monitor the patient very closely. 2. Acute kidney injury. resolved 3. New onset anemia, acute blood loss most likely due to esophageal ulcer as well as erosive esophagitis. Patient just had EGD and colonoscopy continue with Protonix 40 mg orally twice every day Carafate 1 g orally 3 times every day as recommended by general surgery. 4. Accelerated hypertension. Continue patient on amlodipine 5 mg once a day, Coreg 25 mg orally twice every day losartan 100 mg once every day, monitor the patient blood pressure very closely. 5. Head injury with forehead laceration status postrepair continue patient on amoxicillin 500 mg orally 3 times every day. 6. Persistent atrial fibrillation. Continue patient on Coreg 25 mg orally twice every day, keep the patient off Eliquis for for now. 7. Coronary artery disease with prior bypass surgery and stents. Continue patient on atorvastatin 80 mg once every day, ezetimibe 10 mg once every day, carvedilol 25 mg orally twice every day. 8. Diabetes melitis type II. Continue Levemir 12 units at bedtime, with a sliding scale insulin. Monitor the patient blood glucose level 4 times every day. 9. Hypertension and hypertensive cardiovascular disease. Continue amlodipine 5 mg once every day, continue carvedilol 25 mg orally twice every day, and losartan 100 mg once every day monitor the patient blood pressure very closely. 10. Hyperlipidemia continue patient on atorvastatin 80 mg once every day and Zetia 10 mg once every day monitor lipid panel, keep LDL 55-70. 11. Ischemic cardiomyopathy. Appears to be compensated at this time continue carvedilol 25 mg orally twice every day, continue losartan 100 mg orally once every day, we will add Lasix 40 mg IVP Q 12 h 12. COPD. Appears to be stable at this time. 13. Sleep apnea. Patient will need to have a CPAP as an outpatient. 14. Acute hypoxemic respiratory failure due to bilateral pleural effusion with ischemic cardiomyopathy and cardiomegaly. Continue patient on Lasix 40 mg IV push every 12 hours, continue carvedilol 25 mg orally twice every day, continue losartan 100 mg once every day monitor the patient input and output and daily weight. 15. DVT prophylaxis. Bilateral knee-high CHARLIE hose. 16. GI prophylaxis. Continue patient on Protonix 40 mg orally twice every day. 17. Repeat labs tomorrow morning. Objective - Vital Signs Vital signs: Vital Signs Temp 97.3 F L 06/10/23 07:15 Pulse 60 06/10/23 07:15 Resp 16 06/10/23 07:15 BP 130/73 06/10/23 07:15 Pulse Ox 93 L 06/10/23 08:41 FiO2 Intake & Output 06/09/23 06/10/23 06/10/23 18:59 06:59 18:59 Intake Total 200 100 Output Total 300 Balance -100 100 Weight 72.575 kg Intake: IV 200 Oral 100 Output: Urine 300 Other: Voiding Method Urinal Urinal # Voids 1 - Labs CBC & Chem 7: 06/10/23 05:41 06/10/23 05:41 Labs: Abnormal Lab Results - Last 24 Hours (Table) 06/07/23 06/09/23 06/09/23 Range/Units 10:16 17:15 20:25 RBC (4.40-5.60) X 10*6/uL Hgb (13.0-17.0) g/dL Hct (39.6-50.0) % MCH (27.0-32.0) pg MCHC (32.0-37.0) g/dL RDW (11.5-14.5) % NRBC/100 WBC Diff (0.00-0.01) X 10*3/uL Chloride (96-109) mmol/L Carbon Dioxide (21.6-31.8) mmol/L BUN (9.0-27.0) mg/dL Creatinine (0.6-1.5) mg/dL Est GFR (CKD-EPI) (>=60) Glucose (70-110) mg/dL POC Glucose (mg/dL) 241 H 238 H (70-110) mg/dL Calcium (8.7-10.3) mg/dL Total Protein (6.2-8.2) g/dL Albumin (3.8-4.9) g/dL Albumin/Globulin Ratio (1.60-3.17) Ratio Copper 1764 H (665-1480) ug/L 06/10/23 06/10/23 06/10/23 Range/Units 05:39 05:41 05:41 RBC 3.44 L (4.40-5.60) X 10*6/uL Hgb 7.9 L (13.0-17.0) g/dL Hct 28.3 L (39.6-50.0) % MCH 23.0 L (27.0-32.0) pg MCHC 27.9 L (32.0-37.0) g/dL RDW 19.9 H (11.5-14.5) % NRBC/100 WBC Diff 0.03 H (0.00-0.01) X 10*3/uL Chloride 112 H (96-109) mmol/L Carbon Dioxide 18.4 L (21.6-31.8) mmol/L BUN 28.6 H (9.0-27.0) mg/dL Creatinine 2.0 H (0.6-1.5) mg/dL Est GFR (CKD-EPI) 38 L (>=60) Glucose 170 H (70-110) mg/dL POC Glucose (mg/dL) 169 H (70-110) mg/dL Calcium 8.1 L (8.7-10.3) mg/dL Total Protein 5.5 L (6.2-8.2) g/dL Albumin 2.9 L (3.8-4.9) g/dL Albumin/Globulin Ratio 1.12 L (1.60-3.17) Ratio Copper (665-1480) ug/L 06/10/23 Range/Units 12:10 RBC (4.40-5.60) X 10*6/uL Hgb (13.0-17.0) g/dL Hct (39.6-50.0) % MCH (27.0-32.0) pg MCHC (32.0-37.0) g/dL RDW (11.5-14.5) % NRBC/100 WBC Diff (0.00-0.01) X 10*3/uL Chloride (96-109) mmol/L Carbon Dioxide (21.6-31.8) mmol/L BUN (9.0-27.0) mg/dL Creatinine (0.6-1.5) mg/dL Est GFR (CKD-EPI) (>=60) Glucose (70-110) mg/dL POC Glucose (mg/dL) 134 H (70-110) mg/dL Calcium (8.7-10.3) mg/dL Total Protein (6.2-8.2) g/dL Albumin (3.8-4.9) g/dL Albumin/Globulin Ratio (1.60-3.17) Ratio Copper (665-1480) ug/L
--- NOTE | 2023-06-10 14:37 | XR ---
EXAMINATION TYPE: XR chest 1V DATE OF EXAM: 06/10/2023 1:53 PM CLINICAL INDICATION:Male, 58 years old with history of SOB; COMPARISON: Chest radiographs from 03/30/2023 TECHNIQUE: XR chest 1V Frontal view of the chest. FINDINGS: Lungs/Pleura: No evidence of focal consolidation or pneumothorax. Blunting of the costophrenic angles is present. Pulmonary vascularity: Pulmonary vascular congestion. Heart/mediastinum: Cardiomediastinal silhouette is enlarged and stable. Musculoskeletal: No acute osseous pathology. Other findings: None IMPRESSION: Cardiomegaly, pulmonary vascular congestion and bilateral pleural effusions. Correlate with BNP for c ongestive heart failure.
--- NOTE | 2023-06-10 16:05 | P.PN ---
Subjective Progress Note Date: 06/10/23 CHIEF COMPLAINT: Anemia HISTORY OF PRESENT ILLNESS: Surgical service following in regards to anemia. Patient status post EGD and colonoscopy results had revealed an esophageal ulcer with bleeding, gastritis and hemorrhoids. Patient reports that he is having less black stools. Denies any abdominal pain. Vital stable. Hemoglobin did go down from 8.2-7.9 PHYSICAL EXAM: VITAL SIGNS: Reviewed GENERAL: Well-developed in no acute distress. HEENT: No sclera icterus. Extraocular movements grossly intact. Moist buccal mucosa. Head is atraumatic, normocephalic. Hears conversational speech. No nasal drainage. NECK: Supple without lymphadenopathy. CHEST: Non-labored respirations and equal bilateral excursions. CARDIOVASCULAR: Palpable 2+ radial pulses. ABDOMEN: Soft. Nondistended. Nontender. MUSCULOSKELETAL: No clubbing or cyanosis. NEUROLOGIC: No focal or lateralizing signs. Cranial nerves II through XII grossly intact. PSYCH: Appropriate affect. Alert and oriented to person, place and time. SKIN: Well perfused. Good skin turgor. ASSESSMENT: Acute blood loss anemia likely due to bleeding esophageal ulcer Acute esophageal ulcer with bleeding Acute gastritis PLAN: -Continue Carafate 1 g 3 times daily and Protonix 40 mg twice daily for 2 weeks -Continue ground diet -Continue to monitor hemoglobin -Continue to monitor for any signs or symptoms of bleeding Physician Change Lead note has been reviewed by physician. Signing provider agrees with the documented findings, assessment, and plan of care. Objective - Vital Signs Vital signs: Vital Signs Temp 97.4 F L 06/10/23 14:00 Pulse 62 06/10/23 14:00 Resp 16 06/10/23 14:00 BP 120/71 06/10/23 14:00 Pulse Ox 98 06/10/23 14:00 FiO2 Intake & Output 06/09/23 06/10/23 06/10/23 18:59 06:59 18:59 Intake Total 200 100 Output Total 300 275 Balance -100 -175 Weight 72.575 kg Intake: IV 200 Oral 100 Output: Urine 300 275 Other: Voiding Method Urinal Urinal # Voids 1 - Labs CBC & Chem 7: 06/10/23 05:41 06/10/23 05:41 Labs: Abnormal Lab Results - Last 24 Hours (Table) 06/09/23 06/09/23 06/10/23 Range/Units 17:15 20:25 05:39 RBC (4.40-5.60) X 10*6/uL Hgb (13.0-17.0) g/dL Hct (39.6-50.0) % MCH (27.0-32.0) pg MCHC (32.0-37.0) g/dL RDW (11.5-14.5) % NRBC/100 WBC Diff (0.00-0.01) X 10*3/uL Chloride (96-109) mmol/L Carbon Dioxide (21.6-31.8) mmol/L BUN (9.0-27.0) mg/dL Creatinine (0.6-1.5) mg/dL Est GFR (CKD-EPI) (>=60) Glucose (70-110) mg/dL POC Glucose (mg/dL) 241 H 238 H 169 H (70-110) mg/dL Calcium (8.7-10.3) mg/dL Total Protein (6.2-8.2) g/dL Albumin (3.8-4.9) g/dL Albumin/Globulin Ratio (1.60-3.17) Ratio 06/10/23 06/10/23 06/10/23 Range/Units 05:41 05:41 12:10 RBC 3.44 L (4.40-5.60) X 10*6/uL Hgb 7.9 L (13.0-17.0) g/dL Hct 28.3 L (39.6-50.0) % MCH 23.0 L (27.0-32.0) pg MCHC 27.9 L (32.0-37.0) g/dL RDW 19.9 H (11.5-14.5) % NRBC/100 WBC Diff 0.03 H (0.00-0.01) X 10*3/uL Chloride 112 H (96-109) mmol/L Carbon Dioxide 18.4 L (21.6-31.8) mmol/L BUN 28.6 H (9.0-27.0) mg/dL Creatinine 2.0 H (0.6-1.5) mg/dL Est GFR (CKD-EPI) 38 L (>=60) Glucose 170 H (70-110) mg/dL POC Glucose (mg/dL) 134 H (70-110) mg/dL Calcium 8.1 L (8.7-10.3) mg/dL Total Protein 5.5 L (6.2-8.2) g/dL Albumin 2.9 L (3.8-4.9) g/dL Albumin/Globulin Ratio 1.12 L (1.60-3.17) Ratio
[2023-06-10 17:26] LABS: Glucose,Whole Blood 219 mg/dL (70-110)
[2023-06-10 20:47] LABS: Glucose,Whole Blood 192 mg/dL (70-110)
[2023-06-10] MEDS: FUROSEMIDE 10 MG/ML 4 ML VIAL IV SCH (22:08)
[2023-06-11 05:52] LABS: Glucose,Whole Blood 201 mg/dL (70-110)
--- NOTE | 2023-06-11 10:32 | P.PN ---
Subjective Progress Note Date: 06/11/23 CHIEF COMPLAINT: Anemia HISTORY OF PRESENT ILLNESS: Surgical service following in regards to anemia. Patient status post EGD and colonoscopy results had revealed an esophageal ulcer with bleeding, gastritis and hemorrhoids. Patient reports no further black stools. Hemoglobin for today's pending. Hemoglobin yesterday 7.9. Denies any abdominal pain. PHYSICAL EXAM: VITAL SIGNS: Reviewed GENERAL: Well-developed in no acute distress. HEENT: No sclera icterus. Extraocular movements grossly intact. Moist buccal mucosa. Head is atraumatic, normocephalic. Hears conversational speech. No nasal david inage. NECK: Supple without lymphadenopathy. CHEST: Non-labored respirations and equal bilateral excursions. CARDIOVASCULAR: Palpable 2+ radial pulses. ABDOMEN: Soft. Nondistended. Nontender. MUSCULOSKELETAL: No clubbing or cyanosis. NEUROLOGIC: No focal or lateralizing signs. Cranial nerves II through XII grossly intact. PSYCH: Appropriate affect. Alert and oriented to person, place and time. SKIN: Well perfused. Good skin turgor. ASSESSMENT: Acute blood loss anemia likely due to bleeding esophageal ulcer Acute esophageal ulcer with bleeding Acute gastritis PLAN: -Continue Carafate 1 g 3 times daily and Protonix 40 mg twice daily for 2 weeks -Continue ground diet -Continue to monitor hemoglobin -Continue to monitor for any signs or symptoms of bleeding Physician Business Director note has been reviewed by physician. Signing provider agrees with the documented findings, assessment, and plan of care. Objective - Vital Signs Vital signs: Vital Signs Temp 97.6 F 06/11/23 08:00 Pulse 57 L 06/11/23 08:00 Resp 16 06/11/23 08:00 BP 131/74 06/11/23 08:00 Pulse Ox 93 L 06/11/23 08:00 FiO2 Intake & Output 06/10/23 06/11/23 06/11/23 18:59 06:59 18:59 Intake Total 690 280 360 Output Total 275 1850 140 Balance 415 -1570 220 Weight 72.575 kg Intake: Oral 690 280 360 Output: Urine 275 1850 140 Other: Voiding Method Urinal # Voids 0 - Labs CBC & Chem 7: 06/10/23 05:41 06/10/23 05:41 Labs: Abnormal Lab Results - Last 24 Hours (Table) 06/10/23 06/10/23 06/10/23 Range/Units 12:10 17:24 20:45 POC Glucose (mg/dL) 134 H 219 H 192 H (70-110) mg/dL 06/11/23 Range/Units 05:49 POC Glucose (mg/dL) 201 H (70-110) mg/dL
[2023-06-11 12:15] LABS: Basophils # (A) 0.06 X 10*3/uL (0.00-0.10); Eosinophils # (A) 0.24 X 10*3/uL (0.04-0.35); Eosinophils % (A) 3.9 %; HCT 26.3 % (39.6-50.0); HGB 7.5 g/dL (13.0-17.0); Lymphocytes # (A) 1.13 X 10*3/uL (0.90-5.00); Lymphocytes % (A) 18.1 %; MCH 23.3 pg (27.0-32.0); MCHC 28.5 g/dL (32.0-37.0); MCV 81.7 FL (80.0-97.0); Mean Platelet Volume 11.3 FL (9.5-12.2); Monocytes # (A) 0.78 X 10*3/uL (0.20-1.00); Monocytes % (A) 12.5 %; NRBC Per 100 WBC 0.02 X 10*3/uL (0.00-0.01); Neutrophils % (A) 64.2 %; Platelet Count 233 X 10*3/uL (140-440); RBC 3.22 X 10*6/uL (4.40-5.60); RDW 19.7 % (11.5-14.5); WBC 6.23 X 10*3/uL (4.50-10.00)
[2023-06-11 12:16] LABS: Glucose,Whole Blood 189 mg/dL (70-110)
[2023-06-11 12:26] LABS: ALT 40 U/L (10-49); AST 26 U/L (14-35); Albumin 3.2 g/dL (3.8-4.9); Albumin/Globulin Ratio 1.23 Ratio (1.60-3.17); Alkaline Phosphatase 93 U/L (41-126); BUN/Creat Ratio 12.25 Ratio (12.00-20.00); Blood Urea Nitrogen 29.4 mg/dL (9.0-27.0); Calcium 8.4 mg/dL (8.7-10.3); Carbon Dioxide 18.1 mmol/L (21.6-31.8); Chloride 111 mmol/L (96-109); Globulin 2.6 g/dL (1.6-3.3); Glucose 189 mg/dL (70-110); Potassium 4.3 mmol/L (3.5-5.5); Sodium 142 mmol/L (135-145); Total Bilirubin 0.5 mg/dL (0.3-1.2); Total Protein 5.8 g/dL (6.2-8.2)
--- NOTE | 2023-06-11 15:55 | P.PN ---
Subjective Progress Note Date: 06/11/23 HISTORY OF PRESENT ILLNESS: This is a 58 years old male with past medical history of triple-vessel coronary artery disease, atrial fibrillation on Eliquis at home, hypertension, hyperlipidemia. His electronic technologist is Dr. Mc. He is on aspirin and Tylenol as well. He presents because of syncope. Patient has been having dizziness for the last few days, immediately after he had to do his job done last Wednesday He states he has bad teeth and he has bleeding gums for the last 2 weeks so he stopped his Eliquis, his dentist took all his teeth out about 25 of them last Wednesday so he can get dentures during the procedure and immediately after he had some bleeding from his gums and sinuses, amount more than a cup and since then he has been having dizziness especially when he walks yesterday he was going to the [employer] he was feeling dizzy and after couple minutes of dizziness He finds himself on the floor with bleeding from his forehead where stitches were placed here in the emergency room and he has nose trauma. So he was sent to the emergency room Patient currently lying in bed fully awake and oriented, he has bandage in his forehead, little tenderness in his nose but there is no obvious bruise. All his teeth are missing but there is no obvious wound or active bleeding currently He denies abdominal pain vomiting diarrhea, no chest pain or dyspnea or coughing. No headache weakness or numbness. No significant dizziness right now He denies smoking alcohol and illicit drugs Of note patient stopped his Eliquis 2 weeks ago when he started having bleeding gums. 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 Also denies any blood in the stool or black stool. No vomiting blood. No bleeding from anywhere else and occult blood in the stool was negative Patient hemodynamically stable Hemoglobin dropped with from baseline 10-12 down to 8.4 on admission and currently 7.7 His creatinine went up to 1.7 with baseline 0.9-1.2. Rest of BMP and liver enzymes were unremarkable He has CT of the head and neck which showing moderate atrophy with bilateral marcus tricular dilatation secondary to atrophy but cannot rule out normal pressure hydrocephalus EKG showing A-fib with a rate of 79, T wave inversion in the inferior leads which is seen in the old EKG. However there is a new T wave inversion in V5 V6 not seen and he KG 2 months ago Patient had cardiac cath about a year ago showing severe triple-vessel coronary artery disease 06/06/2023 patient awake alert. Complaining of from the distal headache and dizziness Walking is fine No more bleeding from the gum Hemoglobin 7.2 Start iron pills Transfuse if hemoglobin less than 7 Cardiology consult evaluated the patient pending their note per staff patient can be downgraded to [facility] Speech swallow evaluation is requested and nutrition consult Patient continued on amoxicillin for his teeth procedure per to hospitalization for 3 more days Continue with normal saline 75 mL/h Currently Eliquis and aspirin on hold later by electronic technologist 06/06: Patient is lying down in bed in no apparent distress, he is upset because he has not been eating much except for today, he has not happy with his care so far, he is scheduled supposedly to go for an EGD today however this was switched to EGD and colonoscopy hopefully on Wednesday, meanwhile the patient will be on regular diet and he will be switched to liquid diet later on tomorrow afternoon, patient hemoglobin has dropped to 7, patient does not think this is coming from his GI tract he think that he lost a lot of blood due to his tooth extraction t hat happened the week prior to this. Patient denies any chest pain at this time, he has no shortness of breath, he appears to be generally weak, his blood glucose level appears to be appropriate at this time, we will continue to monitor the patient very closely. 06/07: Patient is laying down in bed he feels better he started to use his prep for his colonoscopy tomorrow morning, he is on clear liquid diet, he has no chest pain at this time, he does not appear to have a significant shortness of b reath, he has no abdominal pain, he denies any unusual symptoms, he is scheduled to go for EGD and colonoscopy tomorrow morning with Dr. Salgado 06/08: Patient is lying down in bed appears to be somewhat drowsy, he just got up from the endoscopy suite, patient underwent EGD that showed evidence of erosive esophagitis with 6 mm esophageal ulceration with bleeding, patient did not have any biopsy done to his ulcer or at least is not stated in the report of the surgeon, patient did have a colonoscopy that showed poor prep, diverticulosis no evidence of acute bleed, this test was not diagnostic for polyps, patient apparently was admitted back to the floor, he was started on Carafate 1 g orally 3 times every day, Protonix 40 mg orally twice every for 2 weeks, he was placed on soft diet due to his teeth extractions. 06/09: Patient is lying down in bed he appears to be somewhat short of breath today, he is denying any chest pain at this time, he continues to be somewhat short of breath, he denies any abdominal pain, he has not had a bowel movement today, his hemoglobin is down to 7.9 from 8.2, no more bleeding at this point in time, continue to monitor the patient hemoglobin over the next 24 hours, continue with the Protonix 40 mg orally twice every day as well as Carafate 1 g orally 3 times every day, monitor the patient very closely, if his hemoglobin is stable tomorrow morning he can be discharged home we will obtain chest x-ray for further evaluation of his shortness of breath. 06/10: Patient is feeling generally weak, he continues to be somewhat short of breath, he is requiring no oxygen at this time his oxygen saturation are anywhere between 92 to 95%, on room air, patient denies any chest pain he continues to be somewhat short of breath, he continues to have some swelling in both lower extremities, he did not have a bowel movement, he is tolerating his diet very well, continue Lasix 40 mg IV push every 12 hours, continue to monitor the patient's symptoms very closely, repeat the patient's CBC and CMP tomorrow morning, his hemoglobin is down to 7.5, I will start the patient on iron infusion 125 mg IV piggyback daily for the next 2 days, we will follow-up with t missael patient very closely. REVIEW OF SYSTEMS: Constitutional: No documented fever, no chills, no night sweats. positive for weight change. positive for weakness,no fatigue or lethargy. No daytime sleepiness. EENT: No headache. No blurred vision or double vision, no loss of vision. No loss of Hearing, no ringing in the ears, no dizziness. No nasal drainage or congestion. No epistaxis. No sore throat. Lungs: positive for shortness of breath, no cough, no sputum production. minimal wheezing. Reports dyspnea with activity. Cardiovascular: No chest pain, mild lower extremity edema. No palpitations. No paroxysmal nocturnal dyspnea. No orthopnea. No lightheadedness or dizziness. positive for syncopal episodes. Abdominal: Reports no abdominal pain. No nausea, vomiting. No diarrhea. No constipation. No bloody or tarry stools reports loss of appetite. Genitourinary: No dysuria, increased frequency, urgency. No urinary retention. Musculoskeletal: No myalgias. No muscle weakness, no gait dysfunction, no frequent falls. No back pain. No neck pain. Integumentary: Forehead laceration with sutures and kirlex wrap . No rash or pruritus. No unusual bruising. No change in hair or nails. Neurologic: No aphasia. No facial droop. No change in mentation.positive for head injury. No headache. No paralysis.positive for paresthesia Psychiatric: positive for depression. No anxiety. No mood swings. Endocrine: No abnormal blood sugars. No weight change. PHYSICAL EXAMINATION: General: 58-year-old male laying down in bed in no apparent distress. HEENT: Head with kirlex wrap due to concussion and forehead laceration, normocephalic, pupils were equal round reactive to light and recommendation, extraocular muscle movement were intact, sclera nonicteric, conjunctivae were pale, mucous membranes of the mouth are somewhat dry. Neck: Supple, no JVP, normal carotid upstroke bilaterally, no lymphadenopathy. Chest: Decreased breath sounds at the bases, few rhonchi, minial expiratory wheezes, no chest wall tenderness, no intercostal retractions, decreased TF at the bases Heart: First heart sound is normal, second heart sound is normal there is systolic ejection murmur 2/6 located in the left sternal border. Abdomen: Soft, nontender, nondistended, positive bowel sounds. Extremities: There is +1 edema no calf tenderness DP +2 bilaterally, positive for neuropathy Neurologic examination: Patient is awake alert and oriented x 3, cranial nerves II-12 appear grossly intact, muscle power were 5 out of 5 in upper extremities and 5 out of 5 in bilateral lower extremities, deep tendon reflexes normal bilaterally. ASSESSMENT AND PLAN: 1. Syncopal episode most likely etiology is related to anemia and/or acute kidney injury, unlikely to be cardiac etiology. Continue to monitor the patient very closely. 2. Acute kidney injury. resolved 3. New onset anemia, acute blood loss most likely due to esophageal ulcer as well as erosive esophagitis. Patient just had EGD and colonoscopy continue with Protonix 40 mg orally twice every day Carafate 1 g orally 3 times every day as recommended by general surgery. 4. Accelerated hypertension. Continue patient on amlodipine 5 mg once a day, Coreg 25 mg orally twice every day losartan 100 mg once every day, monitor the patient blood pressure very closely. 5. Head injury with forehead laceration status postrepair continue patient on amoxicillin 500 mg orally 3 times every day. 6. Persistent atrial fibrillation. Continue patient on Coreg 25 mg orally twice every day, keep the patient off Eliquis for for now. 7. Coronary artery disease with prior bypass surgery and stents. Continue patient on atorvastatin 80 mg once every day, ezetimibe 10 mg once every day, carvedilol 25 mg orally twice every day. 8. Diabetes melitis type II. Continue Levemir 12 units at bedtime, with a sliding scale insulin. Monitor the patient blood glucose level 4 times every day. 9. Hypertension and hypertensive cardiovascular disease. Continue amlodipine 5 mg once every day, continue carvedilol 25 mg orally twice every day, and losartan 100 mg once every day monitor the patient blood pressure very closely. 10. Hyperlipidemia continue patient on atorvastatin 80 mg once every day and Zetia 10 mg once every day monitor lipid panel, keep LDL 55-70. 11. Ischemic cardiomyopathy. Appears to be compensated at this time continue carvedilol 25 mg orally twice every day, continue losartan 100 mg orally once e very day, we will add Lasix 40 mg IVP Q 12 h 12. COPD. Appears to be stable at this time. 13. Sleep apnea. Patient will need to have a CPAP as an outpatient. 14. Acute hypoxemic respiratory failure due to bilateral pleural effusion with ischemic cardiomyopathy and cardiomegaly. Continue patient on Lasix 40 mg IV push every 12 hours, continue carvedilol 25 mg orally twice every day, continue losartan 100 mg once every day monitor the patient input and output and daily weight. 15. DVT prophylaxis. Bilateral knee-high CHARLIE hose. 16. GI prophylaxis. Continue patient on Protonix 40 mg orally twice every day. 17. Guarded prognosis Objective - Vital Signs Vital signs: Vital Signs Temp 97.6 F 06/11/23 08:00 Pulse 57 L 06/11/23 08:00 Resp 16 06/11/23 10:52 BP 131/74 06/11/23 08:00 Pulse Ox 93 L 06/11/23 08:00 FiO2 Intake & Output 06/10/23 06/11/23 06/11/23 18:59 06:59 18:59 Intake Total 690 280 360 Output Total 275 1850 250 Balance 415 -1570 110 Weight 72.575 kg Intake: Oral 690 280 360 Output: Urine 275 1850 250 Other: Voiding Method Urinal Urinal # Voids 0 - Labs CBC & Chem 7: 06/11/23 06:50 06/11/23 06:50 Labs: Abnormal Lab Results - Last 24 Hours (Table) 06/10/23 06/10/23 06/11/23 Range/Units 17:24 20:45 05:49 RBC (4.40-5.60) X 10*6/uL Hgb (13.0-17.0) g/dL Hct (39.6-50.0) % MCH (27.0-32.0) pg MCHC (32.0-37.0) g/dL RDW (11.5-14.5) % NRBC/100 WBC Diff (0.00-0.01) X 10*3/uL Chloride (96-109) mmol/L Carbon Dioxide (21.6-31.8) mmol/L Anion Gap (4.00-12.00) mmol/L BUN (9.0-27.0) mg/dL Creatinine (0.6-1.5) mg/dL Est GFR (CKD-EPI) (>=60) Glucose (70-110) mg/dL POC Glucose (mg/dL) 219 H 192 H 201 H (70-110) mg/dL Calcium (8.7-10.3) mg/dL Total Protein (6.2-8.2) g/dL Albumin (3.8-4.9) g/dL Albumin/Globulin Ratio (1.60-3.17) Ratio 06/11/23 06/11/23 06/11/23 Range/Units 06:50 06:50 12:14 RBC 3.22 L (4.40-5.60) X 10*6/uL Hgb 7.5 L (13.0-17.0) g/dL Hct 26.3 L (39.6-50.0) % MCH 23.3 L (27.0-32.0) pg MCHC 28.5 L (32.0-37.0) g/dL RDW 19.7 H (11.5-14.5) % NRBC/100 WBC Diff 0.02 H (0.00-0.01) X 10*3/uL Chloride 111 H (96-109) mmol/L Carbon Dioxide 18.1 L (21.6-31.8) mmol/L Anion Gap 12.90 H (4.00-12.00) mmol/L BUN 29.4 H (9.0-27.0) mg/dL Creatinine 2.4 H (0.6-1.5) mg/dL Est GFR (CKD-EPI) 30 L (>=60) Glucose 189 H (70-110) mg/dL POC Glucose (mg/dL) 189 H (70-110) mg/dL Calcium 8.4 L (8.7-10.3) mg/dL Total Protein 5.8 L (6.2-8.2) g/dL Albumin 3.2 L (3.8-4.9) g/dL Albumin/Globulin Ratio 1.23 L (1.60-3.17) Ratio
[2023-06-11] MEDS: SODIUM FERRIC GLUCONAT-SUCROSE 125 MG in SODIUM CHLORIDE 0.9% 100 ML IVPB ONE (16:30)
[2023-06-11 18:00] LABS: Glucose,Whole Blood 209 mg/dL (70-110)
[2023-06-11 20:49] LABS: Glucose,Whole Blood 282 mg/dL (70-110)
[2023-06-12 05:46] LABS: Glucose,Whole Blood 203 mg/dL (70-110)
[2023-06-12 09:36] LABS: Basophils # (A) 0.06 X 10*3/uL (0.00-0.10); Basophils % (A) 1.1 %; Eosinophils % (A) 3.7 %; HCT 26.7 % (39.6-50.0); HGB 7.6 g/dL (13.0-17.0); Lymphocytes # (A) 1.05 X 10*3/uL (0.90-5.00); Lymphocytes % (A) 19.5 %; MCH 23.2 pg (27.0-32.0); MCHC 28.5 g/dL (32.0-37.0); MCV 81.4 FL (80.0-97.0); Mean Platelet Volume 11.1 FL (9.5-12.2); Monocytes # (A) 0.73 X 10*3/uL (0.20-1.00); Monocytes % (A) 13.5 %; NRBC Per 100 WBC 0.02 X 10*3/uL (0.00-0.01); Neutrophils # (A) 3.33 X 10*3/uL (1.80-7.70); Neutrophils % (A) 61.8 %; Platelet Count 211 X 10*3/uL (140-440); RBC 3.28 X 10*6/uL (4.40-5.60); RDW 19.7 % (11.5-14.5); WBC 5.39 X 10*3/uL (4.50-10.00)
[2023-06-12 10:48] LABS: ALT 35 U/L (10-49); AST 18 U/L (14-35); Albumin 3.2 g/dL (3.8-4.9); Albumin/Globulin Ratio 1.28 Ratio (1.60-3.17); Alkaline Phosphatase 94 U/L (41-126); BUN/Creat Ratio 14.18 Ratio (12.00-20.00); Blood Urea Nitrogen 31.2 mg/dL (9.0-27.0); Calcium 8.2 mg/dL (8.7-10.3); Carbon Dioxide 21.2 mmol/L (21.6-31.8); Chloride 110 mmol/L (96-109); Globulin 2.5 g/dL (1.6-3.3); Glucose 231 mg/dL (70-110); Potassium 3.9 mmol/L (3.5-5.5); Sodium 143 mmol/L (135-145); Total Bilirubin 0.4 mg/dL (0.3-1.2); Total Protein 5.7 g/dL (6.2-8.2)
[2023-06-12 12:20] LABS: Glucose,Whole Blood 394 mg/dL (70-110)
[2023-06-12] MEDS: SODIUM FERRIC GLUCONAT-SUCROSE 125 MG in SODIUM CHLORIDE 0.9% 100 ML IVPB SCH (13:25)
--- NOTE | 2023-06-12 13:31 | P.PN ---
Subjective Progress Note Date: 06/12/23 HISTORY OF PRESENT ILLNESS: This is a 58 years old male with past medical history of triple-vessel coronary artery disease, atrial fibrillation on Eliquis at home, hypertension, hyperlipidemia. 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 He is on aspirin and Tylenol as well. He presents because of syncope. Patient has been having dizziness for the last few days, immediately after he had to do his job done last Wednesday He states he has bad teeth and he has bleeding gums for the last 2 weeks so he stopped his Eliquis, his dentist took all his teeth out about 25 of them last Wednesday so he can get dentures during the procedure and immediately after he had some bleeding from his gums and sinuses, amount more than a cup and since then he has been having dizziness especially when he walks yesterday he was going to the [employer] he was feeling dizzy and after couple minutes of dizziness He finds himself on the floor with bleeding from his forehead where stitches were placed here in the emergency room and he has nose trauma. So he was sent to the emergency room Patient currently lying in bed fully awake and oriented, he has bandage in his forehead, little tenderness in his nose but there is no obvious bruise. All his teeth are missing but there is no obvious wound or active bleeding currently He denies abdominal pain vomiting diarrhea, no chest pain or dyspnea or coughing. No headache weakness or numbness. No significant dizziness right now He denies smoking alcohol and illicit drugs Of note patient stopped his Eliquis 2 weeks ago when he started having bleeding gums. 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 Also denies any blood in the stool or black stool. No vomiting blood. No bleeding from anywhere else and occult blood in the stool was negative Patient hemodynamically stable Hemoglobin dropped with from baseline 10-12 down to 8.4 on admission and currently 7.7 His creatinine went up to 1.7 with baseline 0.9-1.2. Rest of BMP and liver enzymes were unremarkable He has CT of the head and neck which showing moderate atrophy with bilateral marcus tricular dilatation secondary to atrophy but cannot rule out normal pressure hydrocephalus EKG showing A-fib with a rate of 79, T wave inversion in the inferior leads which is seen in the old EKG. However there is a new T wave inversion in V5 V6 not seen and he KG 2 months ago Patient had cardiac cath about a year ago showing severe triple-vessel coronary artery disease 06/06/2023 patient awake alert. Complaining of from the distal headache and dizziness Walking is fine No more bleeding from the gum Hemoglobin 7.2 Start iron pills Transfuse if hemoglobin less than 7 Cardiology consult evaluated the patient pending their note per staff patient can be downgraded to [facility] Speech swallow evaluation is requested and nutrition consult Patient continued on amoxicillin for his teeth procedure per to hospitalization for 3 more days Continue with normal saline 75 mL/h Currently Eliquis and aspirin on hold later by traffic signal supervisor maintenance 06/06: Patient is lying down in bed in no apparent distress, he is upset because he has not been eating much except for today, he has not happy with his care so far, he is scheduled supposedly to go for an EGD today however this was switched to EGD and colonoscopy hopefully on Wednesday, meanwhile the patient will be on regular diet and he will be switched to liquid diet later on tomorrow afternoon, patient hemoglobin has dropped to 7, patient does not think this is coming from his GI tract he think that he lost a lot of blood due to his tooth extraction t hat happened the week prior to this. Patient denies any chest pain at this time, he has no shortness of breath, he appears to be generally weak, his blood glucose level appears to be appropriate at this time, we will continue to monitor the patient very closely. 06/07: Patient is laying down in bed he feels better he started to use his prep for his colonoscopy tomorrow morning, he is on clear liquid diet, he has no chest pain at this time, he does not appear to have a significant shortness of b reath, he has no abdominal pain, he denies any unusual symptoms, he is scheduled to go for EGD and colonoscopy tomorrow morning with Dr. Salgado 06/08: Patient is lying down in bed appears to be somewhat drowsy, he just got up from the endoscopy suite, patient underwent EGD that showed evidence of erosive esophagitis with 6 mm esophageal ulceration with bleeding, patient did not have any biopsy done to his ulcer or at least is not stated in the report of the surgeon, patient did have a colonoscopy that showed poor prep, diverticulosis no evidence of acute bleed, this test was not diagnostic for polyps, patient apparently was admitted back to the floor, he was started on Carafate 1 g orally 3 times every day, Protonix 40 mg orally twice every for 2 weeks, he was placed on soft diet due to his teeth extractions. 06/09: Patient is lying down in bed he appears to be somewhat short of breath today, he is denying any chest pain at this time, he continues to be somewhat short of breath, he denies any abdominal pain, he has not had a bowel movement today, his hemoglobin is down to 7.9 from 8.2, no more bleeding at this point in time, continue to monitor the patient hemoglobin over the next 24 hours, continue with the Protonix 40 mg orally twice every day as well as Carafate 1 g orally 3 times every day, monitor the patient very closely, if his hemoglobin is stable tomorrow morning he can be discharged home we will obtain chest x-ray for further evaluation of his shortness of breath. 06/10: Patient is feeling generally weak, he continues to be somewhat short of breath, he is requiring no oxygen at this time his oxygen saturation are anywhere between 92 to 95%, on room air, patient denies any chest pain he continues to be somewhat short of breath, he continues to have some swelling in both lower extremities, he did not have a bowel movement, he is tolerating his diet very well, continue Lasix 40 mg IV push every 12 hours, continue to monitor the patient's symptoms very closely, repeat the patient's CBC and CMP tomorrow morning, his hemoglobin is down to 7.5, I will start the patient on iron infusion 125 mg IV piggyback daily for the next 2 days, we will follow-up with t he patient very closely. 06/11: Patient is feeling better today, he is less short of breath, he denies any chest pain, he continues to have minimal cough, no shortness of breath, he has no abdominal pain, nausea or vomiting, he continues to diurese very well, hemoglobin is up to 7.6, will give another dose of iron 125 mg IV piggyback x 1 today repeat CBC tomorrow morning, continue IV Lasix for another 24 hours, reevaluate the patient in the next 24 hours hopefully home in 1 or 2 days. REVIEW OF SYSTEMS: Constitutional: No documented fever, no chills, no night sweats. positive for weight change. positive for weakness,no fatigue or lethargy. No daytime sleepiness. EENT: No headache. No blurred vision or double vision, no loss of vision. No loss of Hearing, no ringing in the ears, no dizziness. No nasal drainage or congestion. No epistaxis. No sore throat. Lungs: positive for shortness of breath, no cough, no sputum production. minimal wheezing. Reports dyspnea with activity. Cardiovascular: No chest pain, mild lower extremity edema. No palpitations. No paroxysmal nocturnal dyspnea. No orthopnea. No lightheadedness or dizziness. positive for syncopal episodes. Abdominal: Reports no abdominal pain. No nausea, vomiting. No diarrhea. No constipation. No bloody or tarry stools reports loss of appetite. Genitourinary: No dysuria, increased frequency, urgency. No urinary retention. Musculoskeletal: No myalgias. No muscle weakness, no gait dysfunction, no junie quent falls. No back pain. No neck pain. Integumentary: Forehead laceration with sutures and kirlex wrap . No rash or pruritus. No unusual bruising. No change in hair or nails. Neurologic: No aphasia. No facial droop. No change in mentation.positive for head injury. No headache. No paralysis.positive for paresthesia Psychiatric: positive for depression. No anxiety. No mood swings. Endocrine: No abnormal blood sugars. No weight change. PHYSICAL EXAMINATION: General: 58-year-old male laying down in bed in no apparent distress. HEENT: Head with kirlex wrap due to concussion and forehead laceration, normocephalic, pupils were equal round reactive to light and recommendation, extraocular muscle movement were intact, sclera nonicteric, conjunctivae were pale, mucous membranes of the mouth are somewhat dry. Neck: Supple, no JVP, normal carotid upstroke bilaterally, no lymphadenopathy. Chest: Decreased breath sounds at the bases, few rhonchi, minial expiratory wheezes, no chest wall tenderness, no intercostal retractions, decreased TF at the bases Heart: First heart sound is normal, second heart sound is normal there is systolic ejection murmur 2/6 located in the left sternal border. Abdomen: Soft, nontender, nondistended, positive bowel sounds. Extremities: There is +1 edema no calf tenderness DP +2 bilaterally, positive for neuropathy Neurologic examination: Patient is awake alert and oriented x 3, cranial nerves II-12 appear grossly intact, muscle power were 5 out of 5 in upper extremities and 5 out of 5 in bilateral lower extremities, deep tendon reflexes normal bilaterally. ASSESSMENT AND PLAN: 1. Syncopal episode most likely etiology is related to anemia and/or acute kidney injury, unlikely to be cardiac etiology. Continue to monitor the patient very closely. 2. Acute kidney injury. resolved 3. New onset anemia, acute blood loss most likely due to esophageal ulcer as well as erosive esophagitis. Patient just had EGD and colonoscopy continue with Protonix 40 mg orally twice every day Carafate 1 g orally 3 times every day as recommended by general surgery. Patient did receive iron 125 mg IV piggyback x 1 yesterday we will repeat another dose today and recheck CBC tomorrow morning. 4. Accelerated hypertension. Continue patient on amlodipine 5 mg once a day, Coreg 25 mg orally twice every day losartan 100 mg once every day, monitor the patient blood pressure very closely. 5. Head injury with forehead laceration status postrepair continue patient on amoxicillin 500 mg orally 3 times every day. 6. Persistent atrial fibrillation. Continue patient on Coreg 25 mg orally twice every day, keep the patient off Eliquis for for now. 7. Coronary artery disease with prior bypass surgery and stents. Continue patient on atorvastatin 80 mg once every day, ezetimibe 10 mg once every day, carvedilol 25 mg orally twice every day. 8. Diabetes melitis type II. Continue Levemir 12 units at bedtime, with a sliding scale insulin. Monitor the patient blood glucose level 4 times every day. 9. Hypertension and hypertensive cardiovascular disease. Continue amlodipine 5 mg once every day, continue carvedilol 25 mg orally twice every day, and losartan 100 mg once every day monitor the patient blood pressure very closely. 10. Hyperlipidemia continue patient on atorvastatin 80 mg once every day and Zetia 10 mg once every day monitor lipid panel, keep LDL 55-70. 11. Ischemic cardiomyopathy. Appears to be compensated at this time continue carvedilol 25 mg orally twice every day, continue losartan 100 mg orally once every day, we will add Lasix 40 mg IVP Q 12 h 12. COPD. Appears to be stable at this time. 13. Sleep apnea. Patient will need to have a CPAP as an outpatient. 14. Acute hypoxemic respiratory failure due to bilateral pleural effusion with ischemic cardiomyopathy and cardiomegaly. Continue patient on Lasix 40 mg IV push every 12 hours, continue carvedilol 25 mg orally twice every day, continue losartan 100 mg once every day monitor the patient input and output and daily weight. 15. DVT prophylaxis. Bilateral knee-high CHARLIE hose. 16. GI prophylaxis. Continue patient on Protonix 40 mg orally twice every day. 17. Guarded prognosis Objective - Vital Signs Vital signs: Vital Signs Temp 97.5 F L 06/12/23 08:00 Pulse 51 L 06/12/23 08:00 Resp 16 06/12/23 08:00 BP 137/79 06/12/23 08:00 Pulse Ox 94 L 06/12/23 08:00 FiO2 Intake & Output 06/11/23 06/12/23 06/12/23 18:59 06:59 18:59 Intake Total 478 118 240 Output Total 1110 950 720 Balance -805 -832 -863 Intake: Oral 478 118 240 Output: Urine 1110 950 720 Other: Voiding Method Urinal Urinal # Voids 2 - Labs CBC & Chem 7: 06/12/23 04:33 06/12/23 04:33 Labs: Abnormal Lab Results - Last 24 Hours (Table) 06/11/23 06/11/23 06/12/23 Range/Units 17:59 20:45 04:33 RBC 3.28 L (4.40-5.60) X 10*6/uL Hgb 7.6 L (13.0-17.0) g/dL Hct 26.7 L (39.6-50.0) % MCH 23.2 L (27.0-32.0) pg MCHC 28.5 L (32.0-37.0) g/dL RDW 19.7 H (11.5-14.5) % NRBC/100 WBC Diff 0.02 H (0.00-0.01) X 10*3/uL Chloride (96-109) mmol/L Carbon Dioxide (21.6-31.8) mmol/L BUN (9.0-27.0) mg/dL Creatinine (0.6-1.5) mg/dL Est GFR (CKD-EPI) (>=60) Glucose (70-110) mg/dL POC Glucose (mg/dL) 209 H 282 H (70-110) mg/dL Calcium (8.7-10.3) mg/dL Total Protein (6.2-8.2) g/dL Albumin (3.8-4.9) g/dL Albumin/Globulin Ratio (1.60-3.17) Ratio 06/12/23 06/12/23 06/12/23 Range/Units 04:33 05:45 12:18 RBC (4.40-5.60) X 10*6/uL Hgb (13.0-17.0) g/dL Hct (39.6-50.0) % MCH (27.0-32.0) pg MCHC (32.0-37.0) g/dL RDW (11.5-14.5) % NRBC/100 WBC Diff (0.00-0.01) X 10*3/uL Chloride 110 H (96-109) mmol/L Carbon Dioxide 21.2 L (21.6-31.8) mmol/L BUN 31.2 H (9.0-27.0) mg/dL Creatinine 2.2 H (0.6-1.5) mg/dL Est GFR (CKD-EPI) 33 L (>=60) Glucose 231 H (70-110) mg/dL POC Glucose (mg/dL) 203 H 394 H (70-110) mg/dL Calcium 8.2 L (8.7-10.3) mg/dL Total Protein 5.7 L (6.2-8.2) g/dL Albumin 3.2 L (3.8-4.9) g/dL Albumin/Globulin Ratio 1.28 L (1.60-3.17) Ratio
[2023-06-12 17:13] LABS: Glucose,Whole Blood 317 mg/dL (70-110)
[2023-06-12] MEDS: INSULIN ASPART (NovoLOG) 100 UNIT/ML VIAL SQ SCH (17:51)
[2023-06-12 21:11] LABS: Glucose,Whole Blood 217 mg/dL (70-110)
--- NOTE | 2023-06-12 21:45 | P.PN ---
Subjective Progress Note Date: 06/12/23 Principal diagnosis: CHIEF COMPLAINT: Anemia HISTORY OF PRESENT ILLNESS: Surgical service following in regards to anemia. Patient status post EGD and colonoscopy results had revealed an esophageal ulcer with bleeding, gastritis and hemorrhoids. PHYSICAL EXAM: VITAL SIGNS: Reviewed GENERAL: Well-developed in no acute distress. HEENT: No sclera icterus. Extraocular movements grossly intact. Moist buccal mucosa. Head is atraumatic, normocephalic. Hears conversational speech. No nasal drainage. NECK: Supple without lymphadenopathy. CHEST: Non-labored respirations and equal bilateral excursions. CARDIOVASCULAR: Palpable 2+ radial pulses. ABDOMEN: Soft. Nondistended. Nontender. MUSCULOSKELETAL: No clubbing or cyanosis. NEUROLOGIC: No focal or lateralizing signs. Cranial nerves II through XII grossly intact. PSYCH: Appropriate affect. Alert and oriented to person, place and time. SKIN: Well perfused. Good skin turgor. ASSESSMENT: Acute blood loss anemia likely due to bleeding esophageal ulcer Acute esophageal ulcer with bleeding Acute gastritis PLAN: -Continue Carafate 1 g 3 times daily and Protonix 40 mg twice daily for 2 weeks -Continue ground diet -Continue to monitor hemoglobin -Continue to monitor for any signs or symptoms of bleeding Objective - Vital Signs Vital signs: Vital Signs Temp 97.5 F L 06/12/23 14:00 Pulse 59 L 06/12/23 14:00 Resp 16 06/12/23 14:00 BP 118/68 06/12/23 14:00 Pulse Ox 97 06/12/23 14:00 FiO2 Intake & Output 06/12/23 06/12/23 06/13/23 06:59 18:59 06:59 Intake Total 118 598 Output Total 950 1400 Balance -832 -802 Intake: Oral 118 598 Output: Urine 950 1400 Other: Voiding Method Urinal # Voids 2 - Labs CBC & Chem 7: 06/12/23 04:33 06/12/23 04:33 Labs: Abnormal Lab Results - Last 24 Hours (Table) 06/12/23 06/12/23 06/12/23 Range/Units 04:33 04:33 05:45 RBC 3.28 L (4.40-5.60) X 10*6/uL Hgb 7.6 L (13.0-17.0) g/dL Hct 26.7 L (39.6-50.0) % MCH 23.2 L (27.0-32.0) pg MCHC 28.5 L (32.0-37.0) g/dL RDW 19.7 H (11.5-14.5) % NRBC/100 WBC Diff 0.02 H (0.00-0.01) X 10*3/uL Chloride 110 H (96-109) mmol/L Carbon Dioxide 21.2 L (21.6-31.8) mmol/L BUN 31.2 H (9.0-27.0) mg/dL Creatinine 2.2 H (0.6-1.5) mg/dL Est GFR (CKD-EPI) 33 L (>=60) Glucose 231 H (70-110) mg/dL POC Glucose (mg/dL) 203 H (70-110) mg/dL Calcium 8.2 L (8.7-10.3) mg/dL Total Protein 5.7 L (6.2-8.2) g/dL Albumin 3.2 L (3.8-4.9) g/dL Albumin/Globulin Ratio 1.28 L (1.60-3.17) Ratio 06/12/23 06/12/23 06/12/23 Range/Units 12:18 17:12 21:09 RBC (4.40-5.60) X 10*6/uL Hgb (13.0-17.0) g/dL Hct (39.6-50.0) % MCH (27.0-32.0) pg MCHC (32.0-37.0) g/dL RDW (11.5-14.5) % NRBC/100 WBC Diff (0.00-0.01) X 10*3/uL Chloride (96-109) mmol/L Carbon Dioxide (21.6-31.8) mmol/L BUN (9.0-27.0) mg/dL Creatinine (0.6-1.5) mg/dL Est GFR (CKD-EPI) (>=60) Glucose (70-110) mg/dL POC Glucose (mg/dL) 394 H 317 H 217 H (70-110) mg/dL Calcium (8.7-10.3) mg/dL Total Protein (6.2-8.2) g/dL Albumin (3.8-4.9) g/dL Albumin/Globulin Ratio (1.60-3.17) Ratio
[2023-06-12] MEDS: INSULIN DETEMIR (LEVEMIR) 100 UNIT/ML SYR SQ SCH (22:03)
[2023-06-13 06:14] LABS: Glucose,Whole Blood 157 mg/dL (70-110)
[2023-06-13 08:39] LABS: Anisocytosis Slight; Basophils % (A) 1 %; Eosinophils # (A) 0.3 k/uL (0-0.7); Eosinophils % (A) 4 %; HCT 28.1 % (39.0-53.0); Hypochromasia Marked; Lymphocytes # (A) 0.8 k/uL (1.0-4.8); Lymphocytes % (A) 13 %; MCH 23.7 pg (25.0-35.0); MCHC 28.6 g/dL (31.0-37.0); MCV 83.1 fL (80.0-100.0); Mean Platelet Volume 9.9; Microcytosis Slight; Monocytes # (A) 0.5 k/uL (0-1.0); Monocytes % (A) 8 %; Neutrophils # (A) 4.6 k/uL (1.3-7.7); Neutrophils % (A) 71 %; Platelet Count 185 k/uL (150-450); Poikilocytosis Marked; RBC 3.39 m/uL (4.30-5.90); RDW 19.5 % (11.5-15.5); WBC 6.5 k/uL (3.8-10.6)
[2023-06-13 09:04] LABS: ALT 30 U/L (4-49); AST 31 U/L (17-59); African American GFR (CKD) 39 (>60 ml/min/1.73 sqM); Albumin 2.8 g/dL (3.5-5.0); Albumin/Globulin Ratio 0.9; Alkaline Phosphatase 90 U/L (38-126); Anion Gap 7 mmol/L; Blood Urea Nitrogen 31 mg/dL (9-20); Calcium 8.2 mg/dL (8.4-10.2); Carbon Dioxide 24 mmol/L (22-30); Chloride 112 mmol/L (98-107); Glucose 137 mg/dL (74-99); Non-African American GFR(CKD) 34 (>60 ml/min/1.73 sqM); Potassium 3.2 mmol/L (3.5-5.1); Sodium 143 mmol/L (137-145); Total Bilirubin 0.6 mg/dL (0.2-1.3); Total Protein 5.8 g/dL (6.3-8.2)
--- NOTE | 2023-06-13 09:41 | P.PN ---
Subjective Progress Note Date: 06/13/23 Patient still. His recent diagnosis esophagitis. Patient is currently undergoing medical therapy. On exam vital signs appear stable. Abdomen soft. Patient continue receive supportive care. No surgical intervention is planned. Objective - Vital Signs Vital signs: Vital Signs Temp 97.5 F L 06/13/23 07:56 Pulse 62 06/13/23 07:56 Resp 16 06/13/23 07:56 BP 137/73 06/13/23 07:56 Pulse Ox 99 06/13/23 07:56 FiO2 Intake & Output 06/12/23 06/13/23 06/13/23 18:59 06:59 18:59 Intake Total 598 Output Total 1400 1350 Balance -802 -1350 Intake: Oral 598 Output: Urine 1400 1350 Other: Voiding Method Urinal - Labs CBC & Chem 7: 06/13/23 07:55 06/13/23 07:55 Labs: Abnormal Lab Results - Last 24 Hours (Table) 06/12/23 06/12/23 06/12/23 Range/Units 04:33 12:18 17:12 RBC (4.30-5.90) m/uL Hgb (13.0-17.5) gm/dL Hct (39.0-53.0) % MCH (25.0-35.0) pg MCHC (31.0-37.0) g/dL RDW (11.5-15.5) % Lymphocytes # (1.0-4.8) k/uL Potassium (3.5-5.1) mmol/L Chloride 110 H (96-109) mmol/L Carbon Dioxide 21.2 L (21.6-31.8) mmol/L BUN 31.2 H (9.0-27.0) mg/dL Creatinine 2.2 H (0.6-1.5) mg/dL Est GFR (CKD-EPI) 33 L (>=60) Glucose 231 H (70-110) mg/dL POC Glucose (mg/dL) 394 H 317 H (70-110) mg/dL Calcium 8.2 L (8.7-10.3) mg/dL Total Protein 5.7 L (6.2-8.2) g/dL Albumin 3.2 L (3.8-4.9) g/dL Albumin/Globulin Ratio 1.28 L (1.60-3.17) Ratio 06/12/23 06/13/23 06/13/23 Range/Units 21:09 06:13 07:55 RBC 3.39 L (4.30-5.90) m/uL Hgb 8.0 L (13.0-17.5) gm/dL Hct 28.1 L (39.0-53.0) % MCH 23.7 L (25.0-35.0) pg MCHC 28.6 L (31.0-37.0) g/dL RDW 19.5 H (11.5-15.5) % Lymphocytes # 0.8 L (1.0-4.8) k/uL Potassium (3.5-5.1) mmol/L Chloride (96-109) mmol/L Carbon Dioxide (21.6-31.8) mmol/L BUN (9.0-27.0) mg/dL Creatinine (0.6-1.5) mg/dL Est GFR (CKD-EPI) (>=60) Glucose (70-110) mg/dL POC Glucose (mg/dL) 217 H 157 H (70-110) mg/dL Calcium (8.7-10.3) mg/dL Total Protein (6.2-8.2) g/dL Albumin (3.8-4.9) g/dL Albumin/Globulin Ratio (1.60-3.17) Ratio 06/13/23 Range/Units 07:55 RBC (4.30-5.90) m/uL Hgb (13.0-17.5) gm/dL Hct (39.0-53.0) % MCH (25.0-35.0) pg MCHC (31.0-37.0) g/dL RDW (11.5-15.5) % Lymphocytes # (1.0-4.8) k/uL Potassium 3.2 L (3.5-5.1) mmol/L Chloride 112 H (96-109) mmol/L Carbon Dioxide (21.6-31.8) mmol/L BUN 31 H (9.0-27.0) mg/dL Creatinine 2.07 H (0.6-1.5) mg/dL Est GFR (CKD-EPI) (>=60) Glucose 137 H (70-110) mg/dL POC Glucose (mg/dL) (70-110) mg/dL Calcium 8.2 L (8.7-10.3) mg/dL Total Protein 5.8 L (6.2-8.2) g/dL Albumin 2.8 L (3.8-4.9) g/dL Albumin/Globulin Ratio (1.60-3.17) Ratio
--- NOTE | 2023-06-13 10:05 | P.PN ---
Subjective Progress Note Date: 06/13/23 HISTORY OF PRESENT ILLNESS: This is a 58 years old male with past medical history of triple-vessel coronary artery disease, atrial fibrillation on Eliquis at home, hypertension, hyperlipidemia. His interactive media designer is Dr. Mc. He is on aspirin and Tylenol as well. He presents because of syncope. Patient has been having dizziness for the last few days, immediately after he had to do his job done last Wednesday He states he has bad teeth and he has bleeding gums for the last 2 weeks so he stopped his Eliquis, his dentist took all his teeth out about 25 of them last Wednesday so he can get dentures during the procedure and immediately after he had some bleeding from his gums and sinuses, amount more than a cup and since then he has been having dizziness especially when he walks yesterday he was going to the [employer] he was feeling dizzy and after couple minutes of dizziness He finds himself on the floor with bleeding from his forehead where stitches were placed here in the emergency room and he has nose trauma. So he was sent to the emergency room Patient currently lying in bed fully awake and oriented, he has bandage in his forehead, little tenderness in his nose but there is no obvious bruise. All his teeth are missing but there is no obvious wound or active bleeding currently He denies abdominal pain vomiting diarrhea, no chest pain or dyspnea or coughing. No headache weakness or numbness. No significant dizziness right now He denies smoking alcohol and illicit drugs Of note patient stopped his Eliquis 2 weeks ago when he started having bleeding gums. 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 Also denies any blood in the stool or black stool. No vomiting blood. No bleeding from anywhere else and occult blood in the stool was negative Patient hemodynamically stable Hemoglobin dropped with from baseline 10-12 down to 8.4 on admission and currently 7.7 His creatinine went up to 1.7 with baseline 0.9-1.2. Rest of BMP and liver enzymes were unremarkable He has CT of the head and neck which showing moderate atrophy with bilateral marcus tricular dilatation secondary to atrophy but cannot rule out normal pressure hydrocephalus EKG showing A-fib with a rate of 79, T wave inversion in the inferior leads which is seen in the old EKG. However there is a new T wave inversion in V5 V6 not seen and he KG 2 months ago Patient had cardiac cath about a year ago showing severe triple-vessel coronary artery disease 06/06/2023 patient awake alert. Complaining of from the distal headache and dizziness Walking is fine No more bleeding from the gum Hemoglobin 7.2 Start iron pills Transfuse if hemoglobin less than 7 Cardiology consult evaluated the patient pending their note per staff patient can be downgraded to [facility] Speech swallow evaluation is requested and nutrition consult Patient continued on amoxicillin for his teeth procedure per to hospitalization for 3 more days Continue with normal saline 75 mL/h Currently Eliquis and aspirin on hold later by interactive media designer 06/06: Patient is lying down in bed in no apparent distress, he is upset because he has not been eating much except for today, he has not happy with his care so far, he is scheduled supposedly to go for an EGD today however this was switched to EGD and colonoscopy hopefully on Wednesday, meanwhile the patient will be on regular diet and he will be switched to liquid diet later on tomorrow afternoon, patient hemoglobin has dropped to 7, patient does not think this is coming from his GI tract he think that he lost a lot of blood due to his tooth extraction t hat happened the week prior to this. Patient denies any chest pain at this time, he has no shortness of breath, he appears to be generally weak, his blood glucose level appears to be appropriate at this time, we will continue to monitor the patient very closely. 06/07: Patient is laying down in bed he feels better he started to use his prep for his colonoscopy tomorrow morning, he is on clear liquid diet, he has no chest pain at this time, he does not appear to have a significant shortness of b reath, he has no abdominal pain, he denies any unusual symptoms, he is scheduled to go for EGD and colonoscopy tomorrow morning with Dr. Salgado 06/08: Patient is lying down in bed appears to be somewhat drowsy, he just got up from the endoscopy suite, patient underwent EGD that showed evidence of erosive esophagitis with 6 mm esophageal ulceration with bleeding, patient did not have any biopsy done to his ulcer or at least is not stated in the report of the surgeon, patient did have a colonoscopy that showed poor prep, diverticulosis no evidence of acute bleed, this test was not diagnostic for polyps, patient apparently was admitted back to the floor, he was started on Carafate 1 g orally 3 times every day, Protonix 40 mg orally twice every for 2 weeks, he was placed on soft diet due to his teeth extractions. 06/09: Patient is lying down in bed he appears to be somewhat short of breath today, he is denying any chest pain at this time, he continues to be somewhat short of breath, he denies any abdominal pain, he has not had a bowel movement today, his hemoglobin is down to 7.9 from 8.2, no more bleeding at this point in time, continue to monitor the patient hemoglobin over the next 24 hours, continue with the Protonix 40 mg orally twice every day as well as Carafate 1 g orally 3 times every day, monitor the patient very closely, if his hemoglobin is stable tomorrow morning he can be discharged home we will obtain chest x-ray for further evaluation of his shortness of breath. 06/10: Patient is feeling generally weak, he continues to be somewhat short of breath, he is requiring no oxygen at this time his oxygen saturation are anywhere between 92 to 95%, on room air, patient denies any chest pain he continues to be somewhat short of breath, he continues to have some swelling in both lower extremities, he did not have a bowel movement, he is tolerating his diet very well, continue Lasix 40 mg IV push every 12 hours, continue to monitor the patient's symptoms very closely, repeat the patient's CBC and CMP tomorrow morning, his hemoglobin is down to 7.5, I will start the patient on iron infusion 125 mg IV piggyback daily for the next 2 days, we will follow-up with t missael patient very closely. 06/11: Patient is feeling better today, he is less short of breath, he denies any chest pain, he continues to have minimal cough, no shortness of breath, he has no abdominal pain, nausea or vomiting, he continues to diurese very well, hemoglobin is up to 7.6, will give another dose of iron 125 mg IV piggyback x 1 today repeat CBC tomorrow morning, continue IV Lasix for another 24 hours, reevaluate the patient in the next 24 hours hopefully home in 1 or 2 days. 06/12: Patient sitting up in bed is feeling better today, his swelling is down, his hemoglobin is up to 8, he did receive 2 bags of iron he will receive the third back today, we will discontinue IV Lasix, start the patient on oral Lasix 40 mg orally once every day, monitor the patient very closely, patient would like to be discharged home in the next 24 hours, if his hemoglobin is stable, continue the patient off Eliquis for now we will restart next week. REVIEW OF SYSTEMS: Constitutional: No documented fever, no chills, no night sweats. positive for weight change. positive for weakness,no fatigue or lethargy. No daytime sleepiness. EENT: No headache. No blurred vision or double vision, no loss of vision. No loss of Hearing, no ringing in the ears, no dizziness. No nasal drainage or congestion. No epistaxis. No sore throat. Lungs: positive for shortness of breath, no cough, no sputum production. minimal wheezing. Reports dyspnea with activity. Cardiovascular: No chest pain, mild lower extremity edema. No palpitations. No paroxysmal nocturnal dyspnea. No orthopnea. No lightheadedness or dizziness. positive for syncopal episodes. Abdominal: Reports no abdominal pain. No nausea, vomiting. No diarrhea. No constipation. No bloody or tarry stools reports loss of appetite. Genitourinary: No dysuria, increased frequency, urgency. No urinary retention. Musculoskeletal: No myalgias. No muscle weakness, no gait dysfunction, no frequent falls. No back pain. No neck pain. Integumentary: Forehead laceration with sutures and kirlex wrap . No rash or pruritus. No unusual bruising. No change in hair or nails. Neurologic: No aphasia. No facial droop. No change in mentation.positive for head injury. No headache. No paralysis.positive for paresthesia Psychiatric: positive for depression. No anxiety. No mood swings. Endocrine: No abnormal blood sugars. No weight change. PHYSICAL EXAMINATION: General: 58-year-old male laying down in bed in no apparent distress. HEENT: Head with kirlex wrap due to concussion and forehead laceration, normocephalic, pupils were equal round reactive to light and recommendation, extraocular muscle movement were intact, sclera nonicteric, conjunctivae were pale, mucous membranes of the mouth are somewhat dry. Neck: Supple, no JVP, normal carotid upstroke bilaterally, no lymphadenopathy. Chest: Decreased breath sounds at the bases, few rhonchi, minial expiratory wheezes, no chest wall tenderness, no intercostal retractions, decreased TF at the bases Heart: First heart sound is normal, second heart sound is normal there is systolic ejection murmur 2/6 located in the left sternal border. Abdomen: Soft, nontender, nondistended, positive bowel sounds. Extremities: There is +1 edema no calf tenderness DP +2 bilaterally, positive for neuropathy Neurologic examination: Patient is awake alert and oriented x 3, cranial nerves II-12 appear grossly intact, muscle power were 5 out of 5 in upper extremities and 5 out of 5 in bilateral lower extremities, deep tendon reflexes normal bilaterally. ASSESSMENT AND PLAN: 1. Syncopal episode most likely etiology is related to anemia and/or acute kidney injury, unlikely to be cardiac etiology. Continue to monitor the patient very closely. 2. Acute kidney injury. resolved 3. New onset anemia, acute blood loss most likely due to esophageal ulcer as well as erosive esophagitis. Patient just had EGD and colonoscopy continue with Protonix 40 mg orally twice every day Carafate 1 g orally 3 times every day as recommended by general surgery. Patient did receive iron 125 mg IV piggyback x 1 yesterday and he will receive 1 today, repeat CBC tomorrow morning likely home tomorrow with oral iron follow-up with me as an outpatient in 1 week. 4. Accelerated hypertension. Continue patient on amlodipine 5 mg once a day, Coreg 25 mg orally twice every day losartan 100 mg once every day, monitor the patient blood pressure very closely. 5. Head injury with forehead laceration status postrepair continue patient on amoxicillin 500 mg orally 3 times every day. 6. Persistent atrial fibrillation. Continue patient on Coreg 25 mg orally twice every day, keep the patient off Eliquis for for now. 7. Coronary artery disease with prior bypass surgery and stents. Continue patient on atorvastatin 80 mg once every day, ezetimibe 10 mg once every day, carvedilol 25 mg orally twice every day. 8. Diabetes melitis type II. Continue Levemir 18 units at bedtime, continue NovoLog 4 units before each meal 3 times every day, continue sliding scale insulin monitor the patient blood glucose level before each meal and at bedtime. 9. Hypertension and hypertensive cardiovascular disease. Continue amlodipine 5 mg once every day, continue carvedilol 25 mg orally twice every day, and losartan 100 mg once every day monitor the patient blood pressure very closely. 10. Hyperlipidemia continue patient on atorvastatin 80 mg once every day and Zetia 10 mg once every day monitor lipid panel, keep LDL 55-70. 11. Ischemic cardiomyopathy. Appears to be compensated at this time continue carvedilol 25 mg orally twice every day, continue losartan 100 mg orally once ev day, change Lasix to 40 mg orally twice every day. 12. COPD. Appears to be stable at this time. 13. Sleep apnea. Patient will need to have a CPAP as an outpatient. 15. DVT prophylaxis. Bilateral knee-high CHARLIE hose. 16. GI prophylaxis. Continue patient on Protonix 40 mg orally twice every day. 17. Hypokalemia we will replace. 18. Increase activity 19. Home tomorrow morning. Objective - Vital Signs Vital signs: Vital Signs Temp 97.5 F L 06/13/23 07:56 Pulse 62 06/13/23 07:56 Resp 16 06/13/23 07:56 BP 137/73 06/13/23 07:56 Pulse Ox 99 06/13/23 07:56 FiO2 Intake & Output 06/12/23 06/13/23 06/13/23 18:59 06:59 18:59 Intake Total 598 Output Total 1400 1350 Balance -802 -1350 Intake: Oral 598 Output: Urine 1400 1350 Other: Voiding Method Urinal - Labs CBC & Chem 7: 06/13/23 07:55 06/13/23 07:55 Labs: Abnormal Lab Results - Last 24 Hours (Table) 06/12/23 06/12/23 06/12/23 Range/Units 04:33 12:18 17:12 RBC (4.30-5.90) m/uL Hgb (13.0-17.5) gm/dL Hct (39.0-53.0) % MCH (25.0-35.0) pg MCHC (31.0-37.0) g/dL RDW (11.5-15.5) % Lymphocytes # (1.0-4.8) k/uL Potassium (3.5-5.1) mmol/L Chloride 110 H (96-109) mmol/L Carbon Dioxide 21.2 L (21.6-31.8) mmol/L BUN 31.2 H (9.0-27.0) mg/dL Creatinine 2.2 H (0.6-1.5) mg/dL Est GFR (CKD-EPI) 33 L (>=60) Glucose 231 H (70-110) mg/dL POC Glucose (mg/dL) 394 H 317 H (70-110) mg/dL Calcium 8.2 L (8.7-10.3) mg/dL Total Protein 5.7 L (6.2-8.2) g/dL Albumin 3.2 L (3.8-4.9) g/dL Albumin/Globulin Ratio 1.28 L (1.60-3.17) Ratio 06/12/23 06/13/23 06/13/23 Range/Units 21:09 06:13 07:55 RBC 3.39 L (4.30-5.90) m/uL Hgb 8.0 L (13.0-17.5) gm/dL Hct 28.1 L (39.0-53.0) % MCH 23.7 L (25.0-35.0) pg MCHC 28.6 L (31.0-37.0) g/dL RDW 19.5 H (11.5-15.5) % Lymphocytes # 0.8 L (1.0-4.8) k/uL Potassium (3.5-5.1) mmol/L Chloride (96-109) mmol/L Carbon Dioxide (21.6-31.8) mmol/L BUN (9.0-27.0) mg/dL Creatinine (0.6-1.5) mg/dL Est GFR (CKD-EPI) (>=60) Glucose (70-110) mg/dL POC Glucose (mg/dL) 217 H 157 H (70-110) mg/dL Calcium (8.7-10.3) mg/dL Total Protein (6.2-8.2) g/dL Albumin (3.8-4.9) g/dL Albumin/Globulin Ratio (1.60-3.17) Ratio 06/13/23 Range/Units 07:55 RBC (4.30-5.90) m/uL Hgb (13.0-17.5) gm/dL Hct (39.0-53.0) % MCH (25.0-35.0) pg MCHC (31.0-37.0) g/dL RDW (11.5-15.5) % Lymphocytes # (1.0-4.8) k/uL Potassium 3.2 L (3.5-5.1) mmol/L Chloride 112 H (96-109) mmol/L Carbon Dioxide (21.6-31.8) mmol/L BUN 31 H (9.0-27.0) mg/dL Creatinine 2.07 H (0.6-1.5) mg/dL Est GFR (CKD-EPI) (>=60) Glucose 137 H (70-110) mg/dL POC Glucose (mg/dL) (70-110) mg/dL Calcium 8.2 L (8.7-10.3) mg/dL Total Protein 5.8 L (6.2-8.2) g/dL Albumin 2.8 L (3.8-4.9) g/dL Albumin/Globulin Ratio (1.60-3.17) Ratio
[2023-06-13 11:53] LABS: Glucose,Whole Blood 238 mg/dL (70-110)
[2023-06-13 17:29] LABS: Glucose,Whole Blood 289 mg/dL (70-110)
[2023-06-13] MEDS: FUROSEMIDE 40 MG TAB PO SCH (18:22)
[2023-06-13 20:15] LABS: Glucose,Whole Blood 306 mg/dL (70-110)
[2023-06-13] MEDS: POTASSIUM CHLORIDE ER 20 MEQ TAB.ER PO SCH (21:07)
[2023-06-14 06:19] LABS: Glucose,Whole Blood 184 mg/dL (70-110)
[2023-06-14 11:14] LABS: Basophils # (A) 0.04 X 10*3/uL (0.00-0.10); Basophils % (A) 0.5 %; Eosinophils # (A) 0.22 X 10*3/uL (0.04-0.35); HCT 27.4 % (39.6-50.0); HGB 7.7 g/dL (13.0-17.0); Lymphocytes % (A) 10.8 %; MCH 23.1 pg (27.0-32.0); MCHC 28.1 g/dL (32.0-37.0); Mean Platelet Volume 11.7 FL (9.5-12.2); Monocytes # (A) 0.82 X 10*3/uL (0.20-1.00); Monocytes % (A) 11.1 %; NRBC Per 100 WBC 0.02 X 10*3/uL (0.00-0.01); Neutrophils % (A) 74.2 %; Platelet Count 155 X 10*3/uL (140-440); RBC 3.34 X 10*6/uL (4.40-5.60); RDW 20.1 % (11.5-14.5); WBC 7.41 X 10*3/uL (4.50-10.00)
[2023-06-14 11:44] LABS: ALT 23 U/L (10-49); AST 17 U/L (14-35); Albumin 3.1 g/dL (3.8-4.9); Albumin/Globulin Ratio 1.19 Ratio (1.60-3.17); Alkaline Phosphatase 91 U/L (41-126); BUN/Creat Ratio 14.32 Ratio (12.00-20.00); Blood Urea Nitrogen 27.2 mg/dL (9.0-27.0); Calcium 8.2 mg/dL (8.7-10.3); Chloride 107 mmol/L (96-109); Globulin 2.6 g/dL (1.6-3.3); Glucose 180 mg/dL (70-110); Magnesium 1.7 mg/dL (1.5-2.4); Potassium 3.4 mmol/L (3.5-5.5); Sodium 144 mmol/L (135-145); Total Bilirubin 0.5 mg/dL (0.3-1.2); Total Protein 5.7 g/dL (6.2-8.2)
[2023-06-14 12:21] LABS: Glucose,Whole Blood 342 mg/dL (70-110)
--- NOTE | 2023-06-14 12:22 | P.PN ---
Subjective Progress Note Date: 06/14/23 CHIEF COMPLAINT: Anemia HISTORY OF PRESENT ILLNESS: Surgical service following in regards to anemia. Patient status post EGD and colonoscopy results had revealed an esophageal ulcer with bleeding, gastritis and hemorrhoids. Patient reports no further black stools. Denies abdominal pain. Hgb 7.7 patient has received IV iron PHYSICAL EXAM: VITAL SIGNS: Reviewed GENERAL: Well-developed in no acute distress. HEENT: No sclera icterus. Extraocular movements grossly intact. Moist buccal mucosa. Head is atraumatic, normocephalic. Hears conversational speech. No nasal drainage. NECK: Supple without lymphadenopathy. CHEST: Non-labored respirations and equal bilateral excursions. CARDIOVASCULAR: Palpable 2+ radial pulses. ABDOMEN: Soft. Nondistended. Nontender. MUSCULOSKELETAL: No clubbing or cyanosis. NEUROLOGIC: No focal or lateralizing signs. Cranial nerves II through XII grossly intact. PSYCH: Appropriate affect. Alert and oriented to person, place and time. SKIN: Well perfused. Good skin turgor. ASSESSMENT: Acute blood loss anemia likely due to bleeding esophageal ulcer Acute esophageal ulcer with bleeding Acute gastritis PLAN: -Continue Carafate 1 g 3 times daily and Protonix 40 mg twice daily for 2 weeks -Continue ground diet -Hemoglobin stable. -Patient can be discharge from surgical standpoint -Surgical service will sign off. Please call with any questions or concerns Physician [employer]ent [employer] Detective note has been reviewed by physician. Signing provider agrees with the documented findings, assessment, and plan of care. Objective - Vital Signs Vital signs: Vital Signs Temp 98.0 F 06/14/23 07:10 Pulse 65 06/14/23 07:10 Resp 16 06/14/23 08:35 BP 156/85 06/14/23 07:10 Pulse Ox 97 06/14/23 07:10 FiO2 Intake & Output 06/13/23 06/14/23 06/14/23 18:59 06:59 18:59 Intake Total 840 120 Output Total 2110 Balance -1270 120 Intake: Oral 840 120 Output: Urine 2110 Other: Voiding Method Urinal Urinal # Voids 2 - Labs CBC & Chem 7: 06/14/23 06:28 06/14/23 06:28 Labs: Abnormal Lab Results - Last 24 Hours (Table) 06/13/23 06/13/23 06/14/23 Range/Units 17:28 20:14 06:16 RBC (4.40-5.60) X 10*6/uL Hgb (13.0-17.0) g/dL Hct (39.6-50.0) % MCH (27.0-32.0) pg MCHC (32.0-37.0) g/dL RDW (11.5-14.5) % Lymphocytes # (0.90-5.00) X 10*3/uL NRBC/100 WBC Diff (0.00-0.01) X 10*3/uL Potassium (3.5-5.5) mmol/L Anion Gap (4.00-12.00) mmol/L BUN (9.0-27.0) mg/dL Creatinine (0.6-1.5) mg/dL Est GFR (CKD-EPI) (>=60) Glucose (70-110) mg/dL POC Glucose (mg/dL) 289 H 306 H 184 H (70-110) mg/dL Calcium (8.7-10.3) mg/dL Total Protein (6.2-8.2) g/dL Albumin (3.8-4.9) g/dL Albumin/Globulin Ratio (1.60-3.17) Ratio 06/14/23 06/14/23 Range/Units 06:28 06:28 RBC 3.34 L (4.40-5.60) X 10*6/uL Hgb 7.7 L (13.0-17.0) g/dL Hct 27.4 L (39.6-50.0) % MCH 23.1 L (27.0-32.0) pg MCHC 28.1 L (32.0-37.0) g/dL RDW 20.1 H (11.5-14.5) % Lymphocytes # 0.80 L (0.90-5.00) X 10*3/uL NRBC/100 WBC Diff 0.02 H (0.00-0.01) X 10*3/uL Potassium 3.4 L (3.5-5.5) mmol/L Anion Gap 13.00 H (4.00-12.00) mmol/L BUN 27.2 H (9.0-27.0) mg/dL Creatinine 1.9 H (0.6-1.5) mg/dL Est GFR (CKD-EPI) 40 L (>=60) Glucose 180 H (70-110) mg/dL POC Glucose (mg/dL) (70-110) mg/dL Calcium 8.2 L (8.7-10.3) mg/dL Total Protein 5.7 L (6.2-8.2) g/dL Albumin 3.1 L (3.8-4.9) g/dL Albumin/Globulin Ratio 1.19 L (1.60-3.17) Ratio
[2023-06-14] MEDS: POTASSIUM CHLORIDE ER 20 MEQ TAB.ER PO STA (12:48)
[2023-06-14 17:18] LABS: Glucose,Whole Blood 263 mg/dL (70-110)
[2023-06-14] MEDS: FERROUS SULFATE 325 MG TAB PO SCH (17:52)
--- NOTE | 2023-06-14 19:12 | P.PN ---
Subjective Progress Note Date: 06/14/23 HISTORY OF PRESENT ILLNESS: This is a 58 years old male with past medical history of triple-vessel coronary artery disease, atrial fibrillation on Eliquis at home, hypertension, hyperlipidemia. 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 Mc. He is on aspirin and Tylenol as well. He presents because of syncope. Patient has been having dizziness for the last few days, immediately after he had to do his job done last Wednesday He states he has bad teeth and he has bleeding gums for the last 2 weeks so he stopped his Eliquis, his dentist took all his teeth out about 25 of them last Wednesday so he can get dentures during the procedure and immediately after he had some bleeding from his gums and sinuses, amount more than a cup and since then he has been having dizziness especially when he walks yesterday he was going [place] [employer] he was feeling dizzy and after couple minutes of dizziness He finds himself on the floor with bleeding from his forehead where stitches were placed here in the emergency room and he has nose trauma. So he was sent to the emergency room Patient currently lying in bed fully awake and oriented, he has bandage in his forehead, little tenderness in his nose but there is no obvious bruise. All his teeth are missing but there is no obvious wound or active bleeding currently He denies abdominal pain vomiting diarrhea, no chest pain or dyspnea or coughing. No headache weakness or numbness. No significant dizziness right now He denies smoking alcohol and illicit drugs Of note patient stopped his Eliquis 2 weeks ago when he started having bleeding gums. 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 Also denies any blood in the stool or black stool. No vomiting blood. No bleeding from anywhere else and occult blood in the stool was negative Patient hemodynamically stable Hemoglobin dropped with from baseline 10-12 down to 8.4 on admission and currently 7.7 His creatinine went up to 1.7 with baseline 0.9-1.2. Rest of BMP and liver enzymes were unremarkable He has CT of the head and neck which showing moderate atrophy with bilateral marcus tricular dilatation secondary to atrophy but cannot rule out normal pressure hydrocephalus EKG showing A-fib with a rate of 79, T wave inversion in the inferior leads which is seen in the old EKG. However there is a new T wave inversion in V5 V6 not seen and he KG 2 months ago Patient had cardiac cath about a year ago showing severe triple-vessel coronary artery disease 06/06/2023 patient awake alert. Complaining of from the distal headache and dizziness Walking is fine No more bleeding from the gum Hemoglobin 7.2 Start iron pills Transfuse if hemoglobin less than 7 Cardiology consult evaluated the patient pending their note per staff patient can be downgraded to [facility] Speech swallow evaluation is requested and nutrition consult Patient continued on amoxicillin for his teeth procedure per to hospitalization for 3 more days Continue with normal saline 75 mL/h Currently Eliquis and aspirin on hold later by service desk technician 06/06: Patient is lying down in bed in no apparent distress, he is upset because he has not been eating much except for today, he has not happy with his care so far, he is scheduled supposedly to go for an EGD today however this was switched to EGD and colonoscopy hopefully on Wednesday, meanwhile the patient will be on regular diet and he will be switched to liquid diet later on tomorrow afternoon, patient hemoglobin has dropped to 7, patient does not think this is coming from his GI tract he think that he lost a lot of blood due to his tooth extraction t hat happened the week prior to this. Patient denies any chest pain at this time, he has no shortness of breath, he appears to be generally weak, his blood glucose level appears to be appropriate at this time, we will continue to monitor the patient very closely. 06/07: Patient is laying down in bed he feels better he started to use his prep for his colonoscopy tomorrow morning, he is on clear liquid diet, he has no chest pain at this time, he does not appear to have a significant shortness of b reath, he has no abdominal pain, he denies any unusual symptoms, he is scheduled to go for EGD and colonoscopy tomorrow morning with Dr. Salgado 06/08: Patient is lying down in bed appears to be somewhat drowsy, he just got up from the endoscopy suite, patient underwent EGD that showed evidence of erosive esophagitis with 6 mm esophageal ulceration with bleeding, patient did not have any biopsy done to his ulcer or at least is not stated in the report of the surgeon, patient did have a colonoscopy that showed poor prep, diverticulosis no evidence of acute bleed, this test was not diagnostic for polyps, patient apparently was admitted back to the floor, he was started on Carafate 1 g orally 3 times every day, Protonix 40 mg orally twice every for 2 weeks, he was placed on soft diet due to his teeth extractions. 06/09: Patient is lying down in bed he appears to be somewhat short of breath today, he is denying any chest pain at this time, he continues to be somewhat short of breath, he denies any abdominal pain, he has not had a bowel movement today, his hemoglobin is down to 7.9 from 8.2, no more bleeding at this point in time, continue to monitor the patient hemoglobin over the next 24 hours, continue with the Protonix 40 mg orally twice every day as well as Carafate 1 g orally 3 times every day, monitor the patient very closely, if his hemoglobin is stable tomorrow morning he can be discharged home we will obtain chest x-ray for further evaluation of his shortness of breath. 06/10: Patient is feeling generally weak, he continues to be somewhat short of breath, he is requiring no oxygen at this time his oxygen saturation are anywhere between 92 to 95%, on room air, patient denies any chest pain he continues to be somewhat short of breath, he continues to have some swelling in both lower extremities, he did not have a bowel movement, he is tolerating his diet very well, continue Lasix 40 mg IV push every 12 hours, continue to monitor the patient's symptoms very closely, repeat the patient's CBC and CMP tomorrow morning, his hemoglobin is down to 7.5, I will start the patient on iron infusion 125 mg IV piggyback daily for the next 2 days, we will follow-up with t missael patient very closely. 06/11: Patient is feeling better today, he is less short of breath, he denies any chest pain, he continues to have minimal cough, no shortness of breath, he has no abdominal pain, nausea or vomiting, he continues to diurese very well, hemoglobin is up to 7.6, will give another dose of iron 125 mg IV piggyback x 1 today repeat CBC tomorrow morning, continue IV Lasix for another 24 hours, reevaluate the patient in the next 24 hours hopefully home in 1 or 2 days. 06/12: Patient sitting up in bed is feeling better today, his swelling is down, his hemoglobin is up to 8, he did receive 2 bags of iron he will receive the third back today, we will discontinue IV Lasix, start the patient on oral Lasix 40 mg orally once every day, monitor the patient very closely, patient would like to be discharged home in the next 24 hours, if his hemoglobin is stable, continue the patient off Eliquis for now we will restart next week. 06/13: Patient is sitting at the edge of the bed, he continues to be generally weak, his hemoglobin is down to 7.7 he continues to be off Eliquis for now, we will keep him off Eliquis for now, restart the patient on oral iron 325 mg orally twice every day, switch him to oral Lasix 40 mg orally twice every day along with potassium supplement, increase activity today, patient can be discharged home tomorrow morning. REVIEW OF SYSTEMS: Constitutional: No documented fever, no chills, no night sweats. positive for weight change. positive for weakness,no fatigue or lethargy. No daytime sleepiness. EENT: No headache. No blurred vision or double vision, no loss of vision. No loss of Hearing, no ringing in the ears, no dizziness. No nasal drainage or congestion. No epistaxis. No sore throat. Lungs: positive for shortness of breath, no cough, no sputum production. minimal wheezing. Reports dyspnea with activity. Cardiovascular: No chest pain, mild lower extremity edema. No palpitations. No paroxysmal nocturnal dyspnea. No orthopnea. No lightheadedness or dizziness. positive for syncopal episodes. Abdominal: Reports no abdominal pain. No nausea, vomiting. No diarrhea. No constipation. No bloody or tarry stools reports loss of appetite. Genitourinary: No dysuria, increased frequency, urgency. No urinary retention. Musculoskeletal: No myalgias. No muscle weakness, no gait dysfunction, no frequent falls. No back pain. No neck pain. Integumentary: Forehead laceration with sutures and kirlex wrap . No rash or p ruritus. No unusual bruising. No change in hair or nails. Neurologic: No aphasia. No facial droop. No change in mentation.positive for head injury. No headache. No paralysis.positive for paresthesia Psychiatric: positive for depression. No anxiety. No mood swings. Endocrine: No abnormal blood sugars. No weight change. PHYSICAL EXAMINATION: General: 58-year-old male laying down in bed in no apparent distress. HEENT: Head with kirlex wrap due to concussion and forehead laceration, normocephalic, pupils were equal round reactive to light and recommendation, extraocular muscle movement were intact, sclera nonicteric, conjunctivae were pale, mucous membranes of the mouth are somewhat dry. Neck: Supple, no JVP, normal carotid upstroke bilaterally, no lymphadenopathy. Chest: Decreased breath sounds at the bases, few rhonchi, minial expiratory wheezes, no chest wall tenderness, no intercostal retractions, decreased TF at the bases Heart: First heart sound is normal, second heart sound is normal there is systolic ejection murmur 2/6 located in the left sternal border. Abdomen: Soft, nontender, nondistended, positive bowel sounds. Extremities: There is +1 edema no calf tenderness DP +2 bilaterally, positive for neuropathy Neurologic examination: Patient is awake alert and oriented x 3, cranial nerves II-12 appear grossly intact, muscle power were 5 out of 5 in upper extremities and 5 out of 5 in bilateral lower extremities, deep tendon reflexes normal bilaterally. ASSESSMENT AND PLAN: 1. Syncopal episode most likely etiology is related to anemia and/or acute k idney injury, unlikely to be cardiac etiology. Continue to monitor the patient very closely. 2. Acute kidney injury. resolved 3. New onset anemia, acute blood loss most likely due to esophageal ulcer as well as erosive esophagitis. Patient just had EGD and colonoscopy continue with Protonix 40 mg orally twice every day Carafate 1 g orally 3 times every day as recommended by general surgery. Patient did receive iron 125 mg IV piggyback x 1 yesterday and he will receive 1 today, repeat CBC tomorrow morning likely home tomorrow with oral iron follow-up with me as an outpatient in 1 week. 4. Accelerated hypertension. Continue patient on amlodipine 5 mg once a day, Coreg 25 mg orally twice every day losartan 100 mg once every day, monitor the patient blood pressure very closely. 5. Head injury with forehead laceration status postrepair continue patient on amoxicillin 500 mg orally 3 times every day. 6. Persistent atrial fibrillation. Continue patient on Coreg 25 mg orally twice every day, keep the patient off Eliquis for for now. 7. Coronary artery disease with prior bypass surgery and stents. Continue patient on atorvastatin 80 mg once every day, ezetimibe 10 mg once every day, carvedilol 25 mg orally twice every day. 8. Diabetes melitis type II. Continue Levemir 18 units at bedtime, continue NovoLog 4 units before each meal 3 times every day, continue sliding scale insulin monitor the patient blood glucose level before each meal and at bedtime. 9. Hypertension and hypertensive cardiovascular disease. Continue amlodipine 5 mg once every day, continue carvedilol 25 mg orally twice every day, and losartan 100 mg once every day monitor the patient blood pressure very closely. 10. Hyperlipidemia continue patient on atorvastatin 80 mg once every day and Zetia 10 mg once every day monitor lipid panel, keep LDL 55-70. 11. Ischemic cardiomyopathy. Appears to be compensated at this time continue carvedilol 25 mg orally twice every day, continue losartan 100 mg orally once every day, change Lasix to 40 mg orally twice every day. 12. COPD. Appears to be stable at this time. 13. Sleep apnea. Patient will need to have a CPAP as an outpatient. 15. DVT prophylaxis. Bilateral knee-high CHARLIE hose. 16. GI prophylaxis. Continue patient on Protonix 40 mg orally twice every day. 17. Hypokalemia we will replace. 18. Increase activity 19. Home tomorrow morning. Objective - Vital Signs Vital signs: Vital Signs Temp 97.9 F 06/14/23 14:00 Pulse 51 L 06/14/23 14:00 Resp 16 06/14/23 14:00 BP 131/67 06/14/23 14:00 Pulse Ox 96 06/14/23 14:00 FiO2 Intake & Output 06/14/23 06/14/23 06/15/23 06:59 18:59 06:59 Intake Total 474 Output Total 1450 Balance -976 Intake: Oral 474 Output: Urine 1450 Other: Voiding Method Urinal Urinal # Voids 2 - Labs CBC & Chem 7: 06/14/23 06:28 06/14/23 06:28 Labs: Abnormal Lab Results - Last 24 Hours (Table) 06/13/23 06/14/23 06/14/23 Range/Units 20:14 06:16 06:28 RBC 3.34 L (4.40-5.60) X 10*6/uL Hgb 7.7 L (13.0-17.0) g/dL Hct 27.4 L (39.6-50.0) % MCH 23.1 L (27.0-32.0) pg MCHC 28.1 L (32.0-37.0) g/dL RDW 20.1 H (11.5-14.5) % Lymphocytes # 0.80 L (0.90-5.00) X 10*3/uL NRBC/100 WBC Diff 0.02 H (0.00-0.01) X 10*3/uL Potassium (3.5-5.5) mmol/L Anion Gap (4.00-12.00) mmol/L BUN (9.0-27.0) mg/dL Creatinine (0.6-1.5) mg/dL Est GFR (CKD-EPI) (>=60) Glucose (70-110) mg/dL POC Glucose (mg/dL) 306 H 184 H (70-110) mg/dL Calcium (8.7-10.3) mg/dL Total Protein (6.2-8.2) g/dL Albumin (3.8-4.9) g/dL Albumin/Globulin Ratio (1.60-3.17) Ratio 06/14/23 06/14/23 06/14/23 Range/Units 06:28 12:19 17:17 RBC (4.40-5.60) X 10*6/uL Hgb (13.0-17.0) g/dL Hct (39.6-50.0) % MCH (27.0-32.0) pg MCHC (32.0-37.0) g/dL RDW (11.5-14.5) % Lymphocytes # (0.90-5.00) X 10*3/uL NRBC/100 WBC Diff (0.00-0.01) X 10*3/uL Potassium 3.4 L (3.5-5.5) mmol/L Anion Gap 13.00 H (4.00-12.00) mmol/L BUN 27.2 H (9.0-27.0) mg/dL Creatinine 1.9 H (0.6-1.5) mg/dL Est GFR (CKD-EPI) 40 L (>=60) Glucose 180 H (70-110) mg/dL POC Glucose (mg/dL) 342 H 263 H (70-110) mg/dL Calcium 8.2 L (8.7-10.3) mg/dL Total Protein 5.7 L (6.2-8.2) g/dL Albumin 3.1 L (3.8-4.9) g/dL Albumin/Globulin Ratio 1.19 L (1.60-3.17) Ratio
--- NOTE | 2023-06-14 19:58 | XR ---
EXAMINATION TYPE: XR chest 2V DATE OF EXAM: 06/14/2023 COMPARISON: 03/30/2023 HISTORY: CHF follow-up TECHNIQUE: Frontal and lateral views of the chest are obtained. FINDINGS: There are median sternotomy wires and prior CABG surgery. There is moderate to marked cardiomegaly. There are small bilateral pleural effusions. There is a sug gestion of mild interstitial edema. There is no airspace consolidation. There is no pneumothorax. IMPRESSION: Moderate cardiomegaly with small bilateral pleural effusions possibly mild interstitial edema. Findings are consistent with mild CHF.
[2023-06-14 20:11] LABS: Glucose,Whole Blood 310 mg/dL (70-110)
[2023-06-15 06:37] LABS: Glucose,Whole Blood 130 mg/dL (70-110)
[2023-06-15 08:55] VITALS: RESP 16
[2023-06-15 11:48] LABS: Basophils # (A) 0.05 X 10*3/uL (0.00-0.10); Basophils % (A) 0.7 %; Eosinophils # (A) 0.23 X 10*3/uL (0.04-0.35); Eosinophils % (A) 3.2 %; HCT 28.5 % (39.6-50.0); HGB 8.1 g/dL (13.0-17.0); Lymphocytes % (A) 15.2 %; MCH 23.2 pg (27.0-32.0); MCHC 28.4 g/dL (32.0-37.0); MCV 81.7 FL (80.0-97.0); Mean Platelet Volume 11.1 FL (9.5-12.2); Monocytes # (A) 0.91 X 10*3/uL (0.20-1.00); Monocytes % (A) 12.5 %; NRBC Per 100 WBC 0 X 10*3/uL (0.00-0.01); Neutrophils # (A) 4.96 X 10*3/uL (1.80-7.70); Neutrophils % (A) 68.3 %; Platelet Count 149 X 10*3/uL (140-440); RBC 3.49 X 10*6/uL (4.40-5.60); RDW 20.8 % (11.5-14.5); WBC 7.26 X 10*3/uL (4.50-10.00)
[2023-06-15 11:55] LABS: ALT 20 U/L (10-49); AST 16 U/L (14-35); Albumin 3.2 g/dL (3.8-4.9); Albumin/Globulin Ratio 1.19 Ratio (1.60-3.17); Alkaline Phosphatase 94 U/L (41-126); BUN/Creat Ratio 13.12 Ratio (12.00-20.00); Blood Urea Nitrogen 22.3 mg/dL (9.0-27.0); Calcium 8.2 mg/dL (8.7-10.3); Carbon Dioxide 24.9 mmol/L (21.6-31.8); Chloride 107 mmol/L (96-109); Globulin 2.7 g/dL (1.6-3.3); Glucose 133 mg/dL (70-110); Potassium 3.2 mmol/L (3.5-5.5); Sodium 143 mmol/L (135-145); Total Bilirubin 0.6 mg/dL (0.3-1.2); Total Protein 5.9 g/dL (6.2-8.2)
[2023-06-15 12:14] LABS: Glucose,Whole Blood 175 mg/dL (70-110)
[2023-06-15 15:44] VITALS: BP 146/62; PULSE 60; TEMP 98.7
[2023-06-15 17:14] LABS: Glucose,Whole Blood 313 mg/dL (70-110)
--- NOTE | 2023-06-15 18:09 | P.DS ---
Providers Date of admission: 06/05/23 00:48 Expected date of discharge: 06/15/23 Attending physician: Kelly Montesinos Consults: 06/05/23 00:51 Consult Physician Urgent Consulting Provider: Evan Ochoa Consult Reason/Comments: Symptomatic anemia Do you want consulting provider notified?: Yes, Notify in am 06/05/23 10:56 Consult Physician Routine Consulting Provider: Praveen Salinas Consult Reason/Comments: Forehead and nasal trauma Do you want consulting provider notified?: Yes Consult Physician Urgent Consulting Provider: Jackson Jenkins Consult Reason/Comments: A Fib with syncope Do you want consulting provider notified?: Yes Primary care physician: Kelly Montesinos [facility] Course: HISTORY OF PRESENT ILLNESS: This is a 58 years old male with past medical history of triple-vessel coronary artery disease, atrial fibrillation on Eliquis at home, hypertension, hyperlipidemia. His field instructor is Dr. Mc. He is on aspirin and Tylenol as well. He presents because of syncope. Patient has been having dizziness for the last few days, immediately after he had to do his job done last Wednesday He states he has bad teeth and he has bleeding gums for the last 2 weeks so he stopped his Eliquis, his dentist took all his teeth out about 25 of them last Wednesday so he can get dentures during the procedure and immediately after he had some bleeding from his gums and sinuses, amount more than a cup and since then he has been having dizziness especially when he walks yesterday he was going to the supermarket he was feeling dizzy and after couple minutes of dizziness He finds himself on the floor with bleeding from his forehead where stitches were placed here in the emergency room and he has nose trauma. So he was sent to the emergency room Patient currently lying in bed fully awake and oriented, he has bandage in his forehead, little tenderness in his nose but there is no obvious bruise. All his teeth are missing but there is no obvious wound or active bleeding currently He denies abdominal pain vomiting diarrhea, no chest pain or dyspnea or coughing. No headache weakness or numbness. No significant dizziness right now He denies smoking alcohol and illicit drugs Of note patient stopped his Eliquis 2 weeks ago when he started having bleeding gums. 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 Also denies any blood in the stool or black stool. No vomiting blood. No bleeding from anywhere else and occult blood in the stool was negative Patient hemodynamically stable Hemoglobin dropped with from baseline 10-12 down to 8.4 on admission and currently 7.7 His creatinine went up to 1.7 with baseline 0.9-1.2. Rest of BMP and liver enzymes were unremarkable He has CT of the head and neck which showing moderate atrophy with bilateral ventricular dilatation secondary to atrophy but cannot rule out normal pressure hydrocephalus EKG showing A-fib with a rate of 79, T wave inversion in the inferior leads which is seen in the old EKG. However there is a new T wave inversion in V5 V6 not seen and he KG 2 months ago Patient had cardiac cath about a year ago showing severe triple-vessel coronary artery disease 06/06/2023 patient awake alert. Complaining of from the distal headache and dizziness Walking is fine No more bleeding from the gum Hemoglobin 7.2 Start iron pills Transfuse if hemoglobin less than 7 Cardiology consult evaluated the patient pending their note per staff patient can be downgraded to [facility] Speech swallow evaluation is requested and nutrition consult Patient continued on amoxicillin for his teeth procedure per to hospitalization for 3 more days Continue with normal saline 75 mL/h Currently Eliquis and aspirin on hold later by field instructor 06/06: Patient is lying down in bed in no apparent distress, he is upset because he has not been eating much except for today, he has not happy with his care so far, he is scheduled supposedly to go for an EGD today however this was switched to EGD and colonoscopy hopefully on Wednesday, meanwhile the patient will be on regular diet and he will be switched to liquid diet later on tomorrow afternoon, patient hemoglobin has dropped to 7, patient does not think this is coming from his GI tract he think that he lost a lot of blood due to his tooth extraction that happened the week prior to this. Patient denies any chest pain at this time, he has no shortness of breath, he appears to be generally weak, his blood glucose level appears to be appropriate at this time, we will continue to monitor the patient very closely. 06/07: Patient is laying down in bed he feels better he started to use his prep for his colonoscopy tomorrow morning, he is on clear liquid diet, he has no chest pain at this time, he does not appear to have a significant shortness of breath, he has no abdominal pain, he denies any unusual symptoms, he is scheduled to go for EGD and colonoscopy tomorrow morning with Dr. Salgado 06/08: Patient is lying down in bed appears to be somewhat drowsy, he just got up from the endoscopy suite, patient underwent EGD that showed evidence of erosive esophagitis with 6 mm esophageal ulceration with bleeding, patient did not have any biopsy done to his ulcer or at least is not stated in the report of the surgeon, patient did have a colonoscopy that showed poor prep, diverticulosis no evidence of acute bleed, this test was not diagnostic for polyps, patient apparently was admitted back to the floor, he was started on Carafate 1 g orally 3 times every day, Protonix 40 mg orally twice every for 2 weeks, he was placed on soft diet due to his teeth extractions. 06/09: Patient is lying down in bed he appears to be somewhat short of breath today, he is denying any chest pain at this time, he continues to be somewhat short of breath, he denies any abdominal pain, he has not had a bowel movement today, his hemoglobin is down to 7.9 from 8.2, no more bleeding at this point in time, continue to monitor the patient hemoglobin over the next 24 hours, continue with the Protonix 40 mg orally twice every day as well as Carafate 1 g orally 3 times every day, monitor the patient very closely, if his hemoglobin is stable tomorrow morning he can be discharged home we will obtain chest x-ray for further evaluation of his shortness of breath. 06/10: Patient is feeling generally weak, he continues to be somewhat short of breath, he is requiring no oxygen at this time his oxygen saturation are anywhere between 92 to 95%, on room air, patient denies any chest pain he continues to be somewhat short of breath, he continues to have some swelling in both lower extremities, he did not have a bowel movement, he is tolerating his diet very well, continue Lasix 40 mg IV push every 12 hours, continue to monitor the patient's symptoms very closely, repeat the patient's CBC and CMP tomorrow morning, his hemoglobin is down to 7.5, I will start the patient on iron infusion 125 mg IV piggyback daily for the next 2 days, we will follow-up with the patient very closely. 06/11: Patient is feeling better today, he is less short of breath, he denies any chest pain, he continues to have minimal cough, no shortness of breath, he has no abdominal pain, nausea or vomiting, he continues to diurese very well, hemoglobin is up to 7.6, will give another dose of iron 125 mg IV piggyback x 1 today repeat CBC tomorrow morning, continue IV Lasix for another 24 hours, reevaluate the patient in the next 24 hours hopefully home in 1 or 2 days. 06/12: Patient sitting up in bed is feeling better today, his swelling is down, his hemoglobin is up to 8, he did receive 2 bags of iron he will receive the third back today, we will discontinue IV Lasix, start the patient on oral Lasix 40 mg orally once every day, monitor the patient very closely, patient would like to be discharged home in the next 24 hours, if his hemoglobin is stable, continue the patient off Eliquis for now we will restart next week. 06/13: Patient is sitting at the edge of the bed, he continues to be generally weak, his hemoglobin is down to 7.7 he continues to be off Eliquis for now, we will keep him off Eliquis for now, restart the patient on oral iron 325 mg o rally twice every day, switch him to oral Lasix 40 mg orally twice every day along with potassium supplement, increase activity today, patient can be discharged home tomorrow morning. 06/14: Patient is sitting up in bed in no apparent distress, he is feeling better, he continues to have some shortness of breath with activity, his swelling is down, he continues to be somewhat hypokalemic, his hemoglobin is up to 8.3, he continues to be on iron 325 mg orally twice every day, he would like to be discharged home today, follow-up with me as an outpatient next week. Discharge diagnoses: 1. Syncopal episode most likely etiology is related to anemia and/or acute kidney injury, unlikely to be cardiac etiology. 2. Acute kidney injury. 3. New onset anemia, acute blood loss most likely due to esophageal ulcer as well as erosive esophagitis. Patient just had EGD and colonoscopy 4. Accelerated hypertension. 5. Head injury with forehead laceration status postrepair 6. Persistent atrial fibrillation. 7. Coronary artery disease with prior bypass surgery and stents. 8. Diabetes melitis type II. 9. Hypertension and hypertensive cardiovascular disease. 10. Hyperlipidemia 11. Diabetic polyneuropathy. 12. COPD. 13. Sleep apnea. 17. Hypokalemia post replacement. 18. Acute diastolic heart failure Patient Condition at Discharge: Fair Plan - Discharge Summary New Discharge Prescriptions: No Action Ezetimibe [Zetia] 10 mg PO DAILY Atorvastatin [Lipitor] 80 mg PO DAILY Furosemide [Lasix] 40 mg PO DAILY metFORMIN HCL 1,000 mg PO BID amLODIPine [Norvasc] 5 mg PO DAILY Acetaminophen Tab [Tylenol Tab] 500 mg PO Q8H PRN PRN Reason: Pain Amoxicillin 500 mg PO Q8H carvediloL [Coreg] 25 mg PO BID Losartan Potassium [Cozaar] 100 mg PO DAILY #30 tablet hydrALAZINE HCL [Apresoline] 50 mg PO BID Insulin Aspart [NovoLOG Flexpen] 7 units SQ TID-W/MEALS Insulin Glargine,Hum.rec.anlog [Touvamshio Solostar] 30 units SQ HS Discharge Medication List Ezetimibe [Zetia] 10 mg PO DAILY 12/15/20 [History] Losartan Potassium [Cozaar] 100 mg PO DAILY #30 tablet 03/18/22 [Rx] Atorvastatin [Lipitor] 80 mg PO DAILY 04/09/22 [History] Furosemide [Lasix] 40 mg PO DAILY 04/09/22 [History] metFORMIN HCL 1,000 mg PO BID 04/09/22 [History] Acetaminophen Tab [Tylenol Tab] 500 mg PO Q8H PRN 06/05/23 [History] Amoxicillin 500 mg PO Q8H 06/05/23 [History] Insulin Aspart [NovoLOG Flexpen] 7 units SQ TID-W/MEALS 06/05/23 [History] Insulin Glargine,Hum.rec.anlog [Toujeo Solostar] 30 units SQ HS 06/05/23 [History] amLODIPine [Norvasc] 5 mg PO DAILY 06/05/23 [History] carvediloL [Coreg] 25 mg PO BID 06/05/23 [History] hydrALAZINE HCL [Apresoline] 50 mg PO BID 06/05/23 [History] Follow up Appointment(s)/Referral(s): Evan Ochoa [STAFF PHYSICIAN] - 6 Weeks (6-8 week f/u on anemia) Jorge Luis Ga MD [STAFF PHYSICIAN] - 1 Week Kelly Montesinos MD [Primary Care Provider] - 1 Week
[2023-06-16] MEDS ORDERED: PANTOPRAZOLE 40 MG TABLET PO SCH (07:30)
== END 2023-06-15 19:18 | disposition home or self-care (01) | DRG 380 ==
LOC: EC 20:31 → 5NMEDONC 06-05 00:47 → OBSVTOIN 06-05 00:48 → 5NMEDONC 06-05 13:49 → 3SCARD 06-05 16:23 → 6NMEDSUR 06-06 11:22
PROVIDERS: ADMIT Internal Medicine; ATTEND Internal Medicine
PROC: 0HQ1XZZ Repair Face Skin, External Approach (ICD-10-PCS; 2023-06-05)
PROC: 0DJ08ZZ Inspection of Upper Intestinal Tract, Via Natural or Artificial Opening Endoscopic (ICD-10-PCS; principal; 2023-06-09 12:40)
PROC: 0DJD8ZZ Inspection of Lower Intestinal Tract, Via Natural or Artificial Opening Endoscopic (ICD-10-PCS; 2023-06-09 12:40)
DX: K22.11 Ulcer of esophagus with bleeding (principal); I50.31 Acute diastolic (congestive) heart failure; J96.01 Acute respiratory failure with hypoxia; D62 Acute posthemorrhagic anemia; N17.9 Acute kidney failure, unspecified; I25.810 Atherosclerosis of coronary artery bypass graft(s) without angina pectoris; I48.19 Other persistent atrial fibrillation; I13.0 Hypertensive heart and chronic kidney disease with heart failure and stage 1 through stage 4 chronic kidney disease, or unspecified chronic kidney disease; I27.20 Pulmonary hypertension, unspecified; G31.9 Degenerative disease of nervous system, unspecified; E11.22 Type 2 diabetes mellitus with diabetic chronic kidney disease; E11.42 Type 2 diabetes mellitus with diabetic polyneuropathy; G93.89 Other specified disorders of brain; I08.1 Rheumatic disorders of both mitral and tricuspid valves; J44.89 Other specified chronic obstructive pulmonary disease; Z79.4 Long term (current) use of insulin; Z28.310 Unvaccinated for COVID-19; K29.00 Acute gastritis without bleeding; K29.50 Unspecified chronic gastritis without bleeding; E78.5 Hyperlipidemia, unspecified; E87.6 Hypokalemia; G47.33 Obstructive sleep apnea (adult) (pediatric); I25.2 Old myocardial infarction; I25.10 Atherosclerotic heart disease of native coronary artery without angina pectoris; I25.5 Ischemic cardiomyopathy; K64.1 Second degree hemorrhoids; N18.2 Chronic kidney disease, stage 2 (mild); K06.8 Other specified disorders of gingiva and edentulous alveolar ridge; S01.81XA Laceration without foreign body of other part of head, initial encounter; Z79.84 Long term (current) use of oral hypoglycemic drugs; Z79.51 Long term (current) use of inhaled steroids; Z79.82 Long term (current) use of aspirin; Z79.01 Long term (current) use of anticoagulants; Z79.899 Other long term (current) drug therapy; Z95.5 Presence of coronary angioplasty implant and graft; Z95.1 Presence of aortocoronary bypass graft; Z86.718 Personal history of other venous thrombosis and embolism; Z98.1 Arthrodesis status; Z86.14 Personal history of Methicillin resistant Staphylococcus aureus infection; Z86.19 Personal history of other infectious and parasitic diseases; Z88.1 Allergy status to other antibiotic agents
CPT/HCPCS: 36415; 43235; 45378; 70450; 70486; 71045; 71046; 72125; 80048; 80053; 82272; 82525; 82607; 82728; 82746; 83010; 83036; 83540; 83550; 83735; 83921; 85025; 85027; 85045; 93005; 93306; 94760; 96361; 96374; 96376; 99285

== ENCOUNTER 2023-06-19 16:44 | Emergency (ER) | payer MEDICARE ==
--- NOTE | 2023-06-19 17:37 | ED ---
Weakness HPI - General Chief complaint: Weakness Stated complaint: General weakness Time Seen by Provider: 06/19/23 17:11 Source: patient, RN notes reviewed, old records reviewed Mode of arrival: wheelchair Limitations: no limitations - History of Present Illness Initial comments: This is a 58-year-old male to the ER for reevaluation of weakness and anemia. Patient states has had persistent weakness and anemia despite recent hospital admission feels weak and continually feels weak here in the emergency department. No other complaints no fever chest pain shortness of breath abdominal pain. MD Complaint: generalized weakness, lack of energy, difficulty walking -: days(s) Location: generalized Severity: moderate Severity scale (1-10): 4 Consistency: constant Improves with: none Worsens with: none Context: recent illness, history of similar Associated Symptoms: confusion, loss of appetite, nausea/vomiting, shortness of breath - Related Data Home Medications Medication Instructions Recorded Confirmed Ezetimibe [Zetia] 10 mg PO DAILY 12/15/20 06/23/23 Atorvastatin [Lipitor] 80 mg PO DAILY 04/09/22 06/23/23 metFORMIN HCL 1,000 mg PO BID 04/09/22 06/23/23 Acetaminophen Tab [Tylenol] 500 mg PO Q8H PRN 06/05/23 06/23/23 Insulin Aspart [NovoLOG Flexpen] 7 units SQ TID-W/MEALS 06/05/23 06/23/23 carvediloL [Coreg] 25 mg PO BID 06/05/23 06/23/23 Previous Rx's Medication Instructions Recorded Losartan Potassium [Cozaar] 100 mg PO DAILY #30 tablet 03/18/22 Ferrous Sulfate [Iron (65 MG 325 mg PO BID-W/MEALS #60 tab 06/15/23 Elemental)] Furosemide [Lasix] 40 mg PO BID@0900,1600 #60 tab 06/15/23 Insulin Glargine,Hum.rec.anlog 21 units SQ HS #0 06/15/23 [Toureggie Solostar] Pantoprazole [Protonix] 40 mg PO AC-BID #60 tab 06/15/23 Potassium Chloride ER [K-Dur 20] 20 meq PO BID #60 tab 06/15/23 Sucralfate [Carafate] 1 gm PO AC-TID #90 tab 06/15/23 amLODIPine [Norvasc] 5 mg PO DAILY #30 tab 06/15/23 Allergies Allergy/AdvReac Type Severity Reaction Status Date / Time adhesive tape Allergy Severe Rash/Hives Verified 06/23/23 08:22 vancomycin Allergy Mild Head Itches Verified 06/23/23 08:22 Review of Systems ROS Statement: Those systems with pertinent positive or pertinent negative responses have been documented in the HPI. ROS Other: All systems not noted in ROS Statement are negative. Past Medical History Past Medical History: Asthma, Coronary Artery Disease (CAD), Chest Pain / Angina, Diabetes Mellitus, Deep Vein Thrombosis (DVT), Hyperlipidemia, Hypertension, Myocardial Infarction (DC), Sleep Apnea/CPAP/BIPAP Additional Past Medical History / Comment(s): Obstructive sleep apnea CPAP, bronchitis, IDDM type II, DVT L leg, cellulitis L leg 2012 cellulitis L Arm 2017, diabetic neuropathy affects feet and hands, chronic kidney disease stage II Last Myocardial Infarction Date:: 06/23/13 History of Any Multi-Drug Resistant Organisms: Acinetobacter (MDRO), MRSA Date of last positivie culture/infection: 08/2014 MDRO Source:: abdomen around navel Past Surgical History: Back Surgery, Coronary Bypass/CABG, Heart Catheterization, Heart Catheterization With Stent, Hernia Repair Additional Past Surgical History / Comment(s): Cardiac caths, PCI with stents (4total), 2006 CABG 6 vessels, spinal fusion L4-L5, fasciotomy left thigh, bilateral inguinal hernia repairs, I&D L forearm with dehisence then compartment syndrome with fasciotomy Left forearm - June 2016, teeth extraction Past Anesthesia/Blood Transfusion Reactions: No Reported Reaction Date of Last Stent Placement:: 08/28/15 Past Psychological History: No Psychological Hx Reported Smoking Status: Never smoker Past Alcohol Use History: None Reported Past Drug Use History: None Reported - Past Family History Brother(s) Additional Family Medical History / Comment(s): Patient has 1 brother and 1 sister with no major medical problems. Mother Family Medical History: Congestive Heart Failure (CHF), Diabetes Mellitus Additional Family Medical History / Comment(s): Mother at the age of 84 from with history of chronic renal disease stage. Father Family Medical History: COPD, Coronary Artery Disease (CAD), Myocardial Infarction (DC) Additional Family Medical History / Comment(s): Father of a DC at the age of 60 yrs with history of COPD. Sister(s) Family Medical History: Rheumatoid Arthritis (RA) Additional Family Medical History / Comment(s): Patient has 1 sister with no major medical problems. General Exam Limitations: no limitations General appearance: alert, in no apparent distress Head exam: Present: atraumatic, normocephalic, normal inspection Eye exam: Present: normal appearance, PERRL, EOMI. Absent: scleral icterus, conjunctival injection, periorbital swelling ENT exam: Present: normal exam, mucous membranes moist Neck exam: Present: normal inspection. Absent: tenderness, meningismus, lymphadenopathy Respiratory exam: Present: normal lung sounds bilaterally. Absent: respiratory distress, wheezes, rales, rhonchi, stridor Cardiovascular Exam: Present: regular rate, normal rhythm, normal heart sounds. Absent: systolic murmur, diastolic murmur, rubs, gallop, clicks GI/Abdominal exam: Present: soft, normal bowel sounds. Absent: distended, tenderness, guarding, rebound, rigid Extremities exam: Present: normal inspection, full ROM, normal capillary refill. Absent: tenderness, pedal edema, joint swelling, calf tenderness Back exam: Present: normal inspection Neurological exam: Present: alert, oriented X3, CN II-XII intact Psychiatric exam: Present: normal affect, normal mood Skin exam: Present: warm, dry, intact, normal color. Absent: rash Course Vital Signs 06/19/23 06/19/23 06/19/23 16:54 19:14 21:00 Temperature 98.5 F Pulse Rate 73 79 86 Respiratory 18 18 16 Rate Blood Pressure 158/87 157/98 164/96 O2 Sat by Pulse 93 L 93 L 96 Oximetry 06/19/23 06/19/23 06/19/23 21:17 21:30 21:45 Temperature 98.4 F Pulse Rate 80 80 Respiratory Rate Blood Pressure O2 Sat by Pulse Oximetry - Reevaluation(s) Reevaluation #1: 06/19/23 21:01 Medical records reviewed Reevaluation #2: 06/19/23 21:01 Patient symptoms unchanged Reevaluation #3: 06/19/23 21:01 Patient informed of results questions answered Reevaluation #4: Was pt. sent in by a medical professional or institution (, PA, C[employer] AND PR[employer] MACHINE OPERATOR, urgent care, hospital, or prison...) When possible be specific @ -no Did you speak to anyone other than the patient for history (EMS, parent, family, police, friend...)? What history was obtained from this source @ -no Did you review nursing and triage notes (agree or disagree)? Why? @ -agree Are old charts reviewed (outside hosp., previous admission, EMS record, old EKG, old radiological studies, urgent care reports/EKG's, prison records)? Report findings @ -yes Differential Diagnosis (chest pain, altered mental status, abdominal pain women, abdominal pain men, vaginal bleeding, weakness, fever, dyspnea, syncope, headache, dizziness, GI bleed, back pain, seizure, CVA, palpatations, mental health, musculoskeletal)? @ -prior EKG interpreted by me (3pts min.). @ -yes X-rays interpreted by me (1pt min.). @ -yes negative for acute disease CT interpreted by me (1pt min.). @ -no U/S interpreted by me (1pt. min.). @ -no What testing was considered but not performed or refused? (CT, X-rays, U/S, labs)? Why? @ -none What meds were considered but not given or refused? Why? @ -none Did you discuss the management of the patient with other professionals (professionals i.e. , PA, C[employer] AND PR[employer] MACHINE OPERATOR, lab, RT, psych nurse, forensic social worker, behavioral geneticist, teacher, traffic division commanding officer, director case)? Give summary @ -no Was smoking cessation discussed for >3mins.? @ -no Was critical care preformed (if so, how long)? @ -no Were there social determinants of health that impacted care today? How? ( Homelessness, low income, unemployed, alcoholism, drug addiction, transportation, low edu. Level, literacy, decrease access to med. care, long-term, rehab)? @ -none Was there de-escalation of care discussed even if they declined (Discuss DNR or withdrawal of care, Hospice)? DNR status @ -no What co-morbidities impacted this encounter? (DM, HTN, Smoking, COPD, CAD, Cancer, CVA, ARF, Chemo, Hep., AIDS, mental health diagnosis, sleep apnea, morbid obesity)? @ -none Was patient admitted / discharged? Hospital course, mention meds given and route, prescriptions, significant lab abnormalities, going to OR and other pertinent info. @ - 58 male to ER for evaluation of weakness persistent weakness here in the emergency room. Patient has no acute findings here in the ER feels well can be discharged home Discharge Undiagnosed new problem with uncertain prognosis? @ -no Drug Therapy requiring intensive monitoring for toxicity (Heparin, Nitro, Insulin, Cardizem)? @ -no Were any procedures done? @ -no Diagnosis/symptom? @ - Acute, oWeakness, dehydration, nausea vomitingr Chronic, or Acute on Chronic? @ -Acute Uncomplicated (without systemic symptoms) or Complicated (systemic symptoms)? @ -Complicated Side effects of treatment? @ -no Exacerbation, Progression, or Severe Exacerbation? @ -exacerbation Poses a threat to life or bodily function? How? (Chest pain, USA, DC, pneumonia, PE, COPD, DKA, ARF, appy, cholecystitis, CVA, Diverticulitis, Homicidal, Suicidal, threat to staff... and all critical care pts) @ -yes weakness and comorbidities Reevaluation #5: Differential Weakness: Hypoglycemia, shock, sepsis, hyponatremia, anemia, infection, DC, ETOH, adverse medicine reaction, overdose, stroke, this is not meant to be an all-inclusive list. - Consultations Consultation #1: Spoke with [facility] will see the patient in the ER EKG Findings - EKG Comments: EKG Findings:: EKG is A-fib 71 QRS 96 QTc 395 - EKG Results: EKG: interpreted by [facility] Medical Decision Making - Medical Decision Making 58 male to ER for evaluation of weakness persistent weakness here in the emergency room. Patient has no acute findings here in the ER feels well can be discharged home - Lab Data Result diagrams: 06/19/23 17:39 06/19/23 17:39 Lab Results 06/19/23 06/19/23 06/19/23 Range/Units 17:39 17:39 17:39 WBC 6.3 (3.8-10.6) k/uL RBC 3.74 L (4.30-5.90) m/uL Hgb 9.0 L (13.0-17.5) gm/dL Hct 30.2 L (39.0-53.0) % MCV 80.8 (80.0-100.0) fL MCH 24.0 L (25.0-35.0) pg MCHC 29.8 L (31.0-37.0) g/dL RDW 19.8 H (11.5-15.5) % Plt Count 153 (150-450) k/uL MPV 9.5 Neutrophils % 73 % Lymphocytes % 13 % Monocytes % 7 % Eosinophils % 4 % Basophils % 1 % Neutrophils # 4.6 (1.3-7.7) k/uL Lymphocytes # 0.8 L (1.0-4.8) k/uL Monocytes # 0.5 (0-1.0) k/uL Eosinophils # 0.3 (0-0.7) k/uL Basophils # 0.1 (0-0.2) k/uL Hypochromasia Marked Poikilocytosis Moderate Anisocytosis Slight Microcytosis Slight PT 13.3 H (10.0-12.5) sec INR 1.3 H (<1.2) APTT 28.0 (22.0-30.0) sec Sodium 140 (137-145) mmol/L Potassium 3.2 L (3.5-5.1) mmol/L Chloride 102 (98-107) mmol/L Carbon Dioxide 27 (22-30) mmol/L Anion Gap 11 mmol/L BUN 36 H (9-20) mg/dL Creatinine 1.34 H (0.66-1.25) mg/dL Est GFR (CKD-EPI)AfAm 67 (>60 ml/min/1.73 sqM) Est GFR (CKD-EPI)NonAf 58 (>60 ml/min/1.73 sqM) Glucose 202 H (74-99) mg/dL Plasma Lactic Acid Oskar (0.7-2.0) mmol/L Calcium 8.2 L (8.4-10.2) mg/dL Phosphorus 3.4 (2.5-4.5) mg/dL Magnesium 1.4 L (1.6-2.3) mg/dL Total Bilirubin 0.9 (0.2-1.3) mg/dL AST 24 (17-59) U/L ALT 18 (4-49) U/L Alkaline Phosphatase 79 (38-126) U/L Troponin I (0.000-0.034) ng/mL NT-Pro-B Natriuret Pep 7270 pg/mL Total Protein 6.6 (6.3-8.2) g/dL Albumin 3.4 L (3.5-5.0) g/dL TSH (0.465-4.680) mIU/L Urine Color Urine Appearance (Clear) Urine pH (5.0-8.0) Ur Specific [place] (1.001-1.035) Urine Protein (Negative) Urine Glucose (UA) (Negative) Urine Ketones (Negative) Urine Blood (Negative) Urine Nitrite (Negative) Urine Bilirubin (Negative) Urine Urobilinogen (<2.0) mg/dL Ur Leukocyte Esterase (Negative) Urine RBC (0-5) /hpf Urine WBC (0-5) /hpf 06/19/23 06/19/23 06/19/23 Range/Units 17:39 18:05 19:14 WBC (3.8-10.6) k/uL RBC (4.30-5.90) m/uL Hgb (13.0-17.5) gm/dL Hct (39.0-53.0) % MCV (80.0-100.0) fL MCH (25.0-35.0) pg MCHC (31.0-37.0) g/dL RDW (11.5-15.5) % Plt Count (150-450) k/uL MPV Neutrophils % % Lymphocytes % % Monocytes % % Eosinophils % % Basophils % % Neutrophils # (1.3-7.7) k/uL Lymphocytes # (1.0-4.8) k/uL Monocytes # (0-1.0) k/uL Eosinophils # (0-0.7) k/uL Basophils # (0-0.2) k/uL Hypochromasia Poikilocytosis Anisocytosis Microcytosis PT (10.0-12.5) sec INR (<1.2) APTT (22.0-30.0) sec Sodium (137-145) mmol/L Potassium (3.5-5.1) mmol/L Chloride (98-107) mmol/L Carbon Dioxide (22-30) mmol/L Anion Gap mmol/L BUN (9-20) mg/dL Creatinine (0.66-1.25) mg/dL Est GFR (CKD-EPI)AfAm (>60 ml/min/1.73 sqM) Est GFR (CKD-EPI)NonAf (>60 ml/min/1.73 sqM) Glucose (74-99) mg/dL Plasma Lactic Acid Oskar 1.7 (0.7-2.0) mmol/L Calcium (8.4-10.2) mg/dL Phosphorus (2.5-4.5) mg/dL Magnesium (1.6-2.3) mg/dL Total Bilirubin (0.2-1.3) mg/dL AST (17-59) U/L ALT (4-49) U/L Alkaline Phosphatase (38-126) U/L Troponin I 0.022 (0.000-0.034) ng/mL NT-Pro-B Natriuret Pep pg/mL Total Protein (6.3-8.2) g/dL Albumin (3.5-5.0) g/dL TSH (0.465-4.680) mIU/L Urine Color Colorless Urine Appearance Clear (Clear) Urine pH 6.5 (5.0-8.0) Ur Specific [place] 1.013 (1.001-1.035) Urine Protein 1+ H (Negative) Urine Glucose (UA) 2+ H (Negative) Urine Ketones Negative (Negative) Urine Blood Negative (Negative) Urine Nitrite Negative (Negative) Urine Bilirubin Negative (Negative) Urine Urobilinogen <2.0 (<2.0) mg/dL Ur Leukocyte Esterase Negative (Negative) Urine RBC <1 (0-5) /hpf Urine WBC <1 (0-5) /hpf 06/19/23 Range/Units 19:14 WBC (3.8-10.6) k/uL RBC (4.30-5.90) m/uL Hgb (13.0-17.5) gm/dL Hct (39.0-53.0) % MCV (80.0-100.0) fL MCH (25.0-35.0) pg MCHC (31.0-37.0) g/dL RDW (11.5-15.5) % Plt Count (150-450) k/uL MPV Neutrophils % % Lymphocytes % % Monocytes % % Eosinophils % % Basophils % % Neutrophils # (1.3-7.7) k/uL Lymphocytes # (1.0-4.8) k/uL Monocytes # (0-1.0) k/uL Eosinophils # (0-0.7) k/uL Basophils # (0-0.2) k/uL Hypochromasia Poikilocytosis Anisocytosis Microcytosis PT (10.0-12.5) sec INR (<1.2) APTT (22.0-30.0) sec Sodium (137-145) mmol/L Potassium (3.5-5.1) mmol/L Chloride (98-107) mmol/L Carbon Dioxide (22-30) mmol/L Anion Gap mmol/L BUN (9-20) mg/dL Creatinine (0.66-1.25) mg/dL Est GFR (CKD-EPI)AfAm (>60 ml/min/1.73 sqM) Est GFR (CKD-EPI)NonAf (>60 ml/min/1.73 sqM) Glucose (74-99) mg/dL Plasma Lactic Acid Oskar (0.7-2.0) mmol/L Calcium (8.4-10.2) mg/dL Phosphorus (2.5-4.5) mg/dL Magnesium (1.6-2.3) mg/dL Total Bilirubin (0.2-1.3) mg/dL AST (17-59) U/L ALT (4-49) U/L Alkaline Phosphatase (38-126) U/L Troponin I (0.000-0.034) ng/mL NT-Pro-B Natriuret Pep pg/mL Total Protein (6.3-8.2) g/dL Albumin (3.5-5.0) g/dL TSH 2.860 (0.465-4.680) mIU/L Urine Color Urine Appearance (Clear) Urine pH (5.0-8.0) Ur Specific [place] (1.001-1.035) Urine Protein (Negative) Urine Glucose (UA) (Negative) Urine Ketones (Negative) Urine Blood (Negative) Urine Nitrite (Negative) Urine Bilirubin (Negative) Urine Urobilinogen (<2.0) mg/dL Ur Leukocyte Esterase (Negative) Urine RBC (0-5) /hpf Urine WBC (0-5) /hpf - Radiology Data Radiology results: report reviewed (Chest x-ray is negative for acute disease), image reviewed Disposition Clinical Impression: Dehydration, Weakness, Nausea & vomiting Disposition: HOME SELF-CARE Condition: Good Instructions (If sedation given, give patient instructions): Weakness (ED) Is patient prescribed a controlled substance at d/c from ED?: No Referrals: Kelly Montesinos MD [Primary Care Provider] - 1-2 days Time of Disposition: 21:00
[2023-06-19 17:54] LABS: Anisocytosis Slight; Basophils # (A) 0.1 k/uL (0-0.2); Basophils % (A) 1 %; Eosinophils # (A) 0.3 k/uL (0-0.7); Eosinophils % (A) 4 %; HCT 30.2 % (39.0-53.0); Hypochromasia Marked; Lymphocytes # (A) 0.8 k/uL (1.0-4.8); Lymphocytes % (A) 13 %; MCHC 29.8 g/dL (31.0-37.0); MCV 80.8 fL (80.0-100.0); Mean Platelet Volume 9.5; Microcytosis Slight; Monocytes # (A) 0.5 k/uL (0-1.0); Monocytes % (A) 7 %; Neutrophils # (A) 4.6 k/uL (1.3-7.7); Neutrophils % (A) 73 %; Platelet Count 153 k/uL (150-450); Poikilocytosis Moderate; RBC 3.74 m/uL (4.30-5.90); RDW 19.8 % (11.5-15.5); WBC 6.3 k/uL (3.8-10.6)
[2023-06-19 18:00] LABS: INR 1.3 (<1.2); Prothrombin Time 13.3 sec (10.0-12.5)
[2023-06-19 18:09] LABS: ALT 18 U/L (4-49); AST 24 U/L (17-59); African American GFR (CKD) 67 (>60 ml/min/1.73 sqM); Albumin 3.4 g/dL (3.5-5.0); Alkaline Phosphatase 79 U/L (38-126); Anion Gap 11 mmol/L; Blood Urea Nitrogen 36 mg/dL (9-20); Calcium 8.2 mg/dL (8.4-10.2); Carbon Dioxide 27 mmol/L (22-30); Chloride 102 mmol/L (98-107); Glucose 202 mg/dL (74-99); Magnesium 1.4 mg/dL (1.6-2.3); Non-African American GFR(CKD) 58 (>60 ml/min/1.73 sqM); Phosphorus 3.4 mg/dL (2.5-4.5); Potassium 3.2 mmol/L (3.5-5.1); Sodium 140 mmol/L (137-145); Total Bilirubin 0.9 mg/dL (0.2-1.3); Total Protein 6.6 g/dL (6.3-8.2)
[2023-06-19 18:15] LABS: NT-Pro-B-Type Natriuretic Pept 7270 pg/mL
[2023-06-19] MEDS: SODIUM CHLORIDE 0.9% 1,000 ML IV STA (18:26)
[2023-06-19] MEDS: ONDANSETRON 4 MG/2 ML VIAL IVP STA (18:26)
[2023-06-19 19:22] LABS: Appearance,Urine Clear (Clear); Bilirubin,Urine Negative (Negative); Blood,Urine Negative (Negative); Color,Urine Colorless; Glucose,Urine (UA) 2+ (Negative); Ketones,Urine Negative (Negative); Leukocyte Esterase,Urine Negative (Negative); Nitrite,Urine Negative (Negative); PH, Urine 6.5 (5.0-8.0); Protein,Urine 1+ (Negative); RBC,Urine <1 /hpf (0-5); Specific Gravity,Urine 1.013 (1.001-1.035); Urobilinogen,Urine <2.0 mg/dL (<2.0); WBC,Urine <1 /hpf (0-5)
[2023-06-19] MEDS: POTASSIUM BICARBONATE/CIT AC 20 MEQ TABLET.EFF PO ONE (20:00)
[2023-06-19] MEDS: methylPREDNISolone SOD SUCCI 125 MG/2 ML VIAL IV STA (20:00)
[2023-06-19] MEDS: SODIUM CHLORIDE 0.9% 500 ML 500 ML IV STA (20:03)
--- NOTE | 2023-06-19 20:13 | XR ---
EXAM: XR chest 1V portable CLINICAL INDICATION:Male, 58 years old with history of weak; [facility] COMPARISON: 06/14/2023 TECHNIQUE: Chest single view. FINDINGS: Monitor leads over the chest. No indwelling lines are seen. Multiple sternotomy wires are redemonstra raquel. Stable moderate enlargement of the cardiac silhouette. Mediastinum appears stable. Stable mild congestion and interstitial edema. No focal lung consolidation, sizable effusion, or evid ence of pneumothorax. Osseous structures appear unchanged. No acute osseous abnormalities suggest an. IMPRESSION: Moderate cardiomegaly with mild congestive changes, as before.
[2023-06-19] MEDS: IPRATROPIUM-ALBUTEROL 3 ML NEB INHALATION STA (21:16)
[2023-06-19 21:27] VITALS: PULSE 80
[2023-06-19 22:07] VITALS: BP 164/96; RESP 16
[2023-06-19 22:08] VITALS: TEMP 98.4
== END 2023-06-19 21:49 | disposition home or self-care (01) ==
LOC: EC 16:44
DX: E86.0 Dehydration (principal); R53.1 Weakness; R11.2 Nausea with vomiting, unspecified; Z91.09 Other allergy status, other than to drugs and biological substances; Z88.8 Allergy status to other drugs, medicaments and biological substances
CPT/HCPCS: 36415; 94640; 93005; 83880; 80053; 84443; 83605; 83735; 84100; 84484; 85025; 85610; 85730; 81001; 71045; 99285; 96374; 96375; 96361; J2405; J2919

== ENCOUNTER 2023-06-22 17:46 | Inpatient (IN) | payer MEDICARE ==
--- NOTE | 2023-06-22 18:16 | ED ---
Weakness HPI - General Source: RN notes reviewed <Delphine Raygoza - Last Filed: 06/22/23 18:13> - General Source: patient, RN notes reviewed, old records reviewed <Andriy Arreguin - Last Filed: 06/22/23 21:25> - General Stated complaint: Difficulty walking Time Seen by Provider: 06/22/23 18:00 - History of Present Illness Initial comments: Quick [id number] male presenting to the ER with chief complaint of generalized weakness. Patient reports he is having difficulty walking. He was seen in the ER 3 days ago for similar issue and was discharged with close follow-ups. Patient has been following up outpatient however is concerned as the weakness is persisting. Denies other specific complaints at this time. (Delphine Raygoza) 58-year-old male with multiple medical problems presenting with gait instability, weakness, facial droop and difficulty speaking. Patient had several teeth pulled and states that his voice and speech has been slurred but believes that it may have worsened over the past 1 to 2 days. He does not know exactly when it worsened. He also reports increased generalized weakness and difficulty ambulating. He states this began over the past 24 to 48 hours. He does report weakness in the right leg again this was within the last 24 to 48 hours. Exact onset is unknown. Patient noted to have right facial droop and was on aware that he had facial droop. Patient is on Eliquis but has not been taking secondary to anemia. (Andriy Arreguin) - Related Data Home Medications Medication Instructions Recorded Confirmed Ezetimibe [Zetia] 10 mg PO DAILY 12/15/20 06/19/23 Atorvastatin [Lipitor] 80 mg PO DAILY 04/09/22 06/19/23 metFORMIN HCL 1,000 mg PO BID 04/09/22 06/19/23 Acetaminophen Tab [Tylenol] 500 mg PO Q8H PRN 06/05/23 06/19/23 Insulin Aspart [NovoLOG Flexpen] 7 units SQ TID-W/MEALS 06/05/23 06/19/23 carvediloL [Coreg] 25 mg PO BID 06/05/23 06/19/23 Previous Rx's Medication Instructions Recorded Losartan Potassium [Cozaar] 100 mg PO DAILY #30 tablet 03/18/22 Ferrous Sulfate [Iron (65 MG 325 mg PO BID-W/MEALS #60 tab 06/15/23 Elemental)] Furosemide [Lasix] 40 mg PO BID@0900,1600 #60 tab 06/15/23 Insulin Glargine,Hum.rec.anlog 21 units SQ HS #0 06/15/23 [Touvamshio Solostar] Pantoprazole [Protonix] 40 mg PO AC-BID #60 tab 06/15/23 Potassium Chloride ER [K-Dur 20] 20 meq PO BID #60 tab 06/15/23 Sucralfate [Carafate] 1 gm PO AC-TID #90 tab 06/15/23 amLODIPine [Norvasc] 5 mg PO DAILY #30 tab 06/15/23 Allergies Allergy/AdvReac Type Severity Reaction Status Date / Time adhesive tape Allergy Severe Rash/Hives Verified 06/22/23 18:31 vancomycin Allergy Mild Head Itches Verified 06/22/23 18:31 Review of Systems ROS Other: All systems not noted in ROS Statement are negative. <Delphine Raygoza - Last Filed: 06/22/23 18:13> ROS Other: All systems not noted in ROS Statement are negative. <Andriy Arreguin - Last Filed: 06/22/23 21:25> ROS Statement: Those systems with pertinent positive or pertinent negative responses have been documented in the HPI. Past Medical History Past Medical History: Asthma, Coronary Artery Disease (CAD), Chest Pain / Angina, Diabetes Mellitus, Deep Vein Thrombosis (DVT), Hyperlipidemia, Hyper tension, Myocardial Infarction (MD), Sleep Apnea/CPAP/BIPAP Additional Past Medical History / Comment(s): Obstructive sleep apnea CPAP, bronchitis, IDDM type II, DVT L leg, cellulitis L leg 2012 cellulitis L Arm 2017, diabetic neuropathy affects feet and hands, chronic kidney disease stage II Last Myocardial Infarction Date:: 06/23/13 History of Any Multi-Drug Resistant Organisms: Acinetobacter (MDRO), MRSA Date of last positivie culture/infection: 08/2014 MDRO Source:: abdomen around navel Past Surgical History: Back Surgery, Coronary Bypass/CABG, Heart Catheterization, Heart Catheterization With Stent, Hernia Repair Additional Past Surgical History / Comment(s): Cardiac caths, PCI with stents (4total), 2006 CABG 6 vessels, spinal fusion L4-L5, fasciotomy left thigh, bilateral inguinal hernia repairs, I&D L forearm with dehisence then compartment syndrome with fasciotomy Left forearm - June 2016, teeth extraction Past Anesthesia/Blood Transfusion Reactions: No Reported Reaction Date of Last Stent Placement:: 08/28/15 Past Psychological History: No Psychological Hx Reported Smoking Status: Never smoker Past Alcohol Use History: None Reported Past Drug Use History: None Reported - Past Family History Brother(s) Additional Family Medical History / Comment(s): Patient has 1 brother and 1 sister with no major medical problems. Mother Family Medical History: Congestive Heart Failure (CHF), Diabetes Mellitus Additional Family Medical History / Comment(s): Mother at the age of 84 from with history of chronic renal disease stage. Father Family Medical History: COPD, Coronary Artery Disease (CAD), Myocardial In farction (MD) Additional Family Medical History / Comment(s): Father of a MD at the age of 60 yrs with history of COPD. Sister(s) Family Medical History: Rheumatoid Arthritis (RA) Additional Family Medical History / Comment(s): Patient has 1 sister with no major medical problems. <Delphine Raygoza - Last Filed: 06/22/23 18:13> General Exam <Delphine Raygoza - Last Filed: 06/22/23 18:13> General appearance: alert, in no apparent distress Head exam: Present: other (Frontal scar, well-healed) Eye exam: Present: normal appearance, PERRL Respiratory exam: Present: normal lung sounds bilaterally. Absent: respiratory distress, wheezes Cardiovascular Exam: Present: regular rate, normal rhythm GI/Abdominal exam: Present: soft. Absent: distended, tenderness Extremities exam: Present: pedal edema Neurological exam: Present: alert, oriented X3, motor sensory deficit (Right facial droop, dysarthria, right leg drift, NIH of 6.) Psychiatric exam: Present: normal affect, normal mood Skin exam: Present: warm, dry, intact <Andriy Arreguin - Last Filed: 06/22/23 21:25> - General Exam Comments Initial Comments: Visual Physical Exam General: Well-appearing, nontoxic, no acute distress. Head: Normocephalic, atraumatic Eyes: PERRLA, EOMI ENT: Airway patent Chest: Nonlabored breathing Skin: No visual rash, normal skin tone Neuro: Alert and oriented 3 Musculoskeletal: No gross abnormalities (JaretDelphine) Course Vital Signs 06/22/23 06/22/23 18:26 20:32 Temperature 97.5 F L Pulse Rate 74 73 Respiratory 18 20 Rate Blood Pressure 144/83 134/74 O2 Sat by Pulse 95 97 Oximetry Medical Decision Making <Delphine Raygoza - Last Filed: 06/22/23 18:13> - Lab Data Result diagrams: 06/22/23 18:40 06/22/23 18:40 <Andriy Arreguin Slime - Last Filed: 06/22/23 21:25> - Medical Decision Making I completed the quick note portion of this chart signed Delphine Raygoza PA-C (Delphine Raygoza) Was pt. sent in by a medical professional or institution (, PA, SCRUBBER OPERATOR, urgent care, hospital, or retirement...) When possible be specific @ -No Did you speak to anyone other than the patient for history (EMS, parent, family, police, friend...)? What history was obtained from this source @ -No Did you review nursing and triage notes (agree or disagree)? Why? @ -I reviewed and agree with nursing and triage notes Were old charts reviewed (outside hosp., previous admission, EMS record, old EKG, old radiological studies, urgent care reports/EKG's, retirement records)? Report findings @ -No old charts were reviewed Differential CVA Ischemic stroke, hemorrhagic stroke, brain tumor, atypical migraine, Wernicke's encephalopathy, seizure, multiple sclerosis, meningitis, encephalitis, hypoglycemia, Guillain-Hernandez, electrolytes disturbance, myasthenia gravis.... This is not meant to be an all-inclusive list EKG interpreted by me (3pts min.). @ -Narrow complex rhythm, atrial fib versus atrial flutter rate of 72, QRS duration 97, QTc 426 artifact limiting assessment, no definitive ST segment elevation. X-rays interpreted by me (1pt min.). @ -Chest x-ray cardiomegaly without pneumonia or pneumothorax CT interpreted by me (1pt min.). @ -[CT brain showing remote ischemic infarct without acute process U/S interpreted by me (1pt. min.). @ -None done What testing was considered but not performed or refused? (CT, X-rays, U/S, labs)? Why? @ -None What meds were considered but not given or refused? Why? @ -None Did you discuss the management of the patient with other professionals (professionals i.e. Dr., PA, SCRUBBER OPERATOR, lab, RT, psych nurse, manager social work, roll trucker, teacher, signals officer, case finishing machine adjuster)? Give summary @ -No Was smoking cessation discussed for >3mins.? @ -No Was critical care preformed (if so, how long)? @ -No Were there social determinants of health that impacted care today? How? (Homelessness, low income, unemployed, alcoholism, drug addiction, transportation, low edu. Level, literacy, decrease access to med. care, half-way, rehab)? @ -No Was there de-escalation of care discussed even if they declined (Discuss DNR or withdrawal of care, Hospice)? DNR status @ -No What co-morbidities impacted this encounter? (DM, HTN, Smoking, COPD, CAD, Cancer, CVA, ARF, Chemo, Hep., AIDS, mental health diagnosis, sleep apnea, morbid obesity)? @ -CAD, chronic kidney disease, atrial fibrillation Was patient admitted / discharged? Hospital course, mention meds given and route, prescriptions, significant lab abnormalities, going to OR and other pertinent info. @58-year-old male with complicated medical history presenting with stated complaint of generalized weakness and difficulty ambulating. Patient is a poor historian, he is unable to give the exact details of the timing of his symptoms but is noted to have a right-sided facial droop and right lower extremity drift. He had recent teeth extraction and states that he has had some difficulty speaking since that time but believes this may also be worse. He is unable to give a detailed history of when this may have worsened. Patient does receive workup including EKG, CBC, CMP, urinalysis, [facility] I do feel this patient likely had a CVA the exact timing is unknown. He will be admitted to his primary care Dr. Montesinos who is aware of the patient with neurology on consultation. Undiagnosed new problem with uncertain prognosis? @ -No Drug Therapy requiring intensive monitoring for toxicity (Heparin, Nitro, Insulin, Cardizem)? @ -No Were any procedures done? @ -No Diagnosis/symptom? @ -[Weakness, CVA Acute, or Chronic, or Acute on Chronic? @ -Acute Uncomplicated (without systemic symptoms) or Complicated (systemic symptoms)? @ -Default Side effects of treatment? @ -No Exacerbation, Progression, or Severe Exacerbation? @ -No Poses a threat to life or bodily function? How? (Chest pain, USA, MD, pneumonia, PE, COPD, DKA, ARF, appy, cholecystitis, CVA, Diverticulitis, Homicidal, Suicidal, threat to staff... and all critical care pts) @ -[Yes, CVA (Andriy Arreguin) - Lab Data Lab Results 06/22/23 06/22/23 06/22/23 Range/Units 18:40 18:40 18:40 WBC 5.5 (3.8-10.6) k/uL RBC 3.74 L (4.30-5.90) m/uL Hgb 9.1 L (13.0-17.5) gm/dL Hct 31.0 L (39.0-53.0) % MCV 83.0 (80.0-100.0) fL MCH 24.5 L (25.0-35.0) pg MCHC 29.5 L (31.0-37.0) g/dL RDW 19.0 H (11.5-15.5) % Plt Count 211 (150-450) k/uL MPV 9.7 Neutrophils % 69 % Lymphocytes % 13 % Monocytes % 9 % Eosinophils % 6 % Basophils % 1 % Neutrophils # 3.8 (1.3-7.7) k/uL Lymphocytes # 0.7 L (1.0-4.8) k/uL Monocytes # 0.5 (0-1.0) k/uL Eosinophils # 0.3 (0-0.7) k/uL Basophils # 0.0 (0-0.2) k/uL Hypochromasia Marked Poikilocytosis Moderate Anisocytosis Slight Microcytosis Slight PT 13.9 H (10.0-12.5) sec INR 1.3 H (<1.2) APTT 26.9 (22.0-30.0) sec Sodium 137 (137-145) mmol/L Potassium 3.6 (3.5-5.1) mmol/L Chloride 102 (98-107) mmol/L Carbon Dioxide 27 (22-30) mmol/L Anion Gap 8 mmol/L BUN 64 H (9-20) mg/dL Creatinine 1.77 H (0.66-1.25) mg/dL Est GFR (CKD-EPI)AfAm 47 (>60 ml/min/1.73 sqM) Est GFR (CKD-EPI)NonAf 41 (>60 ml/min/1.73 sqM) Glucose 191 H (74-99) mg/dL POC Glucose (mg/dL) (70-110) mg/dL POC Glu Telephone Order Clerk Room Service ID Plasma Lactic Acid Oskar (0.7-2.0) mmol/L Calcium 8.0 L (8.4-10.2) mg/dL Total Bilirubin 0.9 (0.2-1.3) mg/dL AST 32 (17-59) U/L ALT 19 (4-49) U/L Alkaline Phosphatase 75 (38-126) U/L Troponin I (0.000-0.034) ng/mL NT-Pro-B Natriuret Pep pg/mL Total Protein 6.1 L (6.3-8.2) g/dL Albumin 3.0 L (3.5-5.0) g/dL Urine Color Urine Appearance (Clear) Urine pH (5.0-8.0) Ur Specific [place] (1.001-1.035) Urine Protein (Negative) Urine Glucose (UA) (Negative) Urine Ketones (Negative) Urine Blood (Negative) Urine Nitrite (Negative) Urine Bilirubin (Negative) Urine Urobilinogen (<2.0) mg/dL Ur Leukocyte Esterase (Negative) Urine RBC (0-5) /hpf Urine WBC (0-5) /hpf 06/22/23 06/22/23 06/22/23 Range/Units 18:40 18:40 18:51 WBC (3.8-10.6) k/uL RBC (4.30-5.90) m/uL Hgb (13.0-17.5) gm/dL Hct (39.0-53.0) % MCV (80.0-100.0) fL MCH (25.0-35.0) pg MCHC (31.0-37.0) g/dL RDW (11.5-15.5) % Plt Count (150-450) k/uL MPV Neutrophils % % Lymphocytes % % Monocytes % % Eosinophils % % Basophils % % Neutrophils # (1.3-7.7) k/uL Lymphocytes # (1.0-4.8) k/uL Monocytes # (0-1.0) k/uL Eosinophils # (0-0.7) k/uL Basophils # (0-0.2) k/uL Hypochromasia Poikilocytosis Anisocytosis Microcytosis PT (10.0-12.5) sec INR (<1.2) APTT (22.0-30.0) sec Sodium (137-145) mmol/L Potassium (3.5-5.1) mmol/L Chloride (98-107) mmol/L Carbon Dioxide (22-30) mmol/L Anion Gap mmol/L BUN (9-20) mg/dL Creatinine (0.66-1.25) mg/dL Est GFR (CKD-EPI)AfAm (>60 ml/min/1.73 sqM) Est GFR (CKD-EPI)NonAf (>60 ml/min/1.73 sqM) Glucose (74-99) mg/dL POC Glucose (mg/dL) 208 H (70-110) mg/dL POC Glu Telephone Order Clerk Room Service ID Boyd, Reynold Plasma Lactic Acid Oskar 1.8 (0.7-2.0) mmol/L Calcium (8.4-10.2) mg/dL Total Bilirubin (0.2-1.3) mg/dL AST (17-59) U/L ALT (4-49) U/L Alkaline Phosphatase (38-126) U/L Troponin I 0.012 (0.000-0.034) ng/mL NT-Pro-B Natriuret Pep pg/mL Total Protein (6.3-8.2) g/dL Albumin (3.5-5.0) g/dL Urine Color Urine Appearance (Clear) Urine pH (5.0-8.0) Ur Specific [place] (1.001-1.035) Urine Protein (Negative) Urine Glucose (UA) (Negative) Urine Ketones (Negative) Urine Blood (Negative) Urine Nitrite (Negative) Urine Bilirubin (Negative) Urine Urobilinogen (<2.0) mg/dL Ur Leukocyte Esterase (Negative) Urine RBC (0-5) /hpf Urine WBC (0-5) /hpf 06/22/23 06/22/23 Range/Units 18:55 20:02 WBC (3.8-10.6) k/uL RBC (4.30-5.90) m/uL Hgb (13.0-17.5) gm/dL Hct (39.0-53.0) % MCV (80.0-100.0) fL MCH (25.0-35.0) pg MCHC (31.0-37.0) g/dL RDW (11.5-15.5) % Plt Count (150-450) k/uL MPV Neutrophils % % Lymphocytes % % Monocytes % % Eosinophils % % Basophils % % Neutrophils # (1.3-7.7) k/uL Lymphocytes # (1.0-4.8) k/uL Monocytes # (0-1.0) k/uL Eosinophils # (0-0.7) k/uL Basophils # (0-0.2) k/uL Hypochromasia Poikilocytosis Anisocytosis Microcytosis PT (10.0-12.5) sec INR (<1.2) APTT (22.0-30.0) sec Sodium (137-145) mmol/L Potassium (3.5-5.1) mmol/L Chloride (98-107) mmol/L Carbon Dioxide (22-30) mmol/L Anion Gap mmol/L BUN (9-20) mg/dL Creatinine (0.66-1.25) mg/dL Est GFR (CKD-EPI)AfAm (>60 ml/min/1.73 sqM) Est GFR (CKD-EPI)NonAf (>60 ml/min/1.73 sqM) Glucose (74-99) mg/dL POC Glucose (mg/dL) (70-110) mg/dL POC Glu Telephone Order Clerk Room Service ID Plasma Lactic Acid Oskar (0.7-2.0) mmol/L Calcium (8.4-10.2) mg/dL Total Bilirubin (0.2-1.3) mg/dL AST (17-59) U/L ALT (4-49) U/L Alkaline Phosphatase (38-126) U/L Troponin I (0.000-0.034) ng/mL NT-Pro-B Natriuret Pep 3980 pg/mL Total Protein (6.3-8.2) g/dL Albumin (3.5-5.0) g/dL Urine Color Colorless Urine Appearance Clear (Clear) Urine pH 6.5 (5.0-8.0) Ur Specific [place] 1.012 (1.001-1.035) Urine Protein 1+ H (Negative) Urine Glucose (UA) 1+ H (Negative) Urine Ketones Negative (Negative) Urine Blood Negative (Negative) Urine Nitrite Negative (Negative) Urine Bilirubin Negative (Negative) Urine Urobilinogen <2.0 (<2.0) mg/dL Ur Leukocyte Esterase Negative (Negative) Urine RBC <1 (0-5) /hpf Urine WBC <1 (0-5) /hpf Disposition <Delphine Raygoza - Last Filed: 06/22/23 18:13> Is patient prescribed a controlled substance at d/c from ED?: No Time of Disposition: 21:25 <Andriy Arreguin - Last Filed: 06/22/23 21:25> Clinical Impression: Weakness, Renal insufficiency, CVA (cerebral vascular accident) Disposition: [facility] Condition: Stable Referrals: Kelly Montesinos MD [Primary Care Provider] - 1-2 days
[2023-06-22 18:52] LABS: Glucose,Whole Blood 208 mg/dL (70-110)
[2023-06-22 18:58] LABS: Anisocytosis Slight; Basophils % (A) 1 %; Eosinophils # (A) 0.3 k/uL (0-0.7); Eosinophils % (A) 6 %; HGB 9.1 gm/dL (13.0-17.5); Hypochromasia Marked; Lymphocytes # (A) 0.7 k/uL (1.0-4.8); Lymphocytes % (A) 13 %; MCH 24.5 pg (25.0-35.0); MCHC 29.5 g/dL (31.0-37.0); Mean Platelet Volume 9.7; Microcytosis Slight; Monocytes # (A) 0.5 k/uL (0-1.0); Monocytes % (A) 9 %; Neutrophils # (A) 3.8 k/uL (1.3-7.7); Neutrophils % (A) 69 %; Platelet Count 211 k/uL (150-450); Poikilocytosis Moderate; RBC 3.74 m/uL (4.30-5.90); WBC 5.5 k/uL (3.8-10.6)
[2023-06-22 19:05] LABS: INR 1.3 (<1.2); Partial Thromboplastin Time 26.9 sec (22.0-30.0); Prothrombin Time 13.9 sec (10.0-12.5)
[2023-06-22 19:08] LABS: ALT 19 U/L (4-49); AST 32 U/L (17-59); African American GFR (CKD) 47 (>60 ml/min/1.73 sqM); Alkaline Phosphatase 75 U/L (38-126); Anion Gap 8 mmol/L; Blood Urea Nitrogen 64 mg/dL (9-20); Carbon Dioxide 27 mmol/L (22-30); Chloride 102 mmol/L (98-107); Glucose 191 mg/dL (74-99); Non-African American GFR(CKD) 41 (>60 ml/min/1.73 sqM); Potassium 3.6 mmol/L (3.5-5.1); Sodium 137 mmol/L (137-145); Total Bilirubin 0.9 mg/dL (0.2-1.3); Total Protein 6.1 g/dL (6.3-8.2)
--- NOTE | 2023-06-22 19:36 | CT ---
EXAMINATION TYPE: CT brain wo con CT DLP: 1072.3 mGycm, Automated exposure control for dose reduction was used. DATE OF EXAM: 06/22/2023 7:28 PM COMPARISON: CT head 06/04/2023. CLINICAL INDICATION:Male, 58 years old with history of Facial droop, dysarthria, facial droop TECHNIQUE: Brain: Axial CT images of the brain were obtained with coronal and sagittal reformats created and rev iewed. Contrast used: None. Oral contrast used: None. FINDINGS: Brain: Extra-axial spaces: No abnormal extra-axial fluid collections. Ventricular system: Mildly prominent but stable. Cerebral parenchyma: No acute intraparenchymal hemorrhage or mass effect. Remote infarct involving t he left occipital lobe, stable compared to prior study. Scattered hypoattenuating areas are seen with in the white matter. Cerebellum: Unremarkable. Mass effect: No evidence of midline shift. Intracranial vasculature: Atherosclerotic calcifications of the intracranial vessels. Soft tissues: Normal. Calvarium/osseous structures: No depressed skull fracture. Paranasal sinuses and mastoid air cells: Mild scattered paranasal sinus disease. Visualized orbits: Orbital contents are intact. IMPRESSION: 1. No acute intracranial process. 2. Redemonstrated remote left occipital infarct.
[2023-06-22 20:16] LABS: Appearance,Urine Clear (Clear); Bilirubin,Urine Negative (Negative); Blood,Urine Negative (Negative); Color,Urine Colorless; Glucose,Urine (UA) 1+ (Negative); Ketones,Urine Negative (Negative); Leukocyte Esterase,Urine Negative (Negative); Nitrite,Urine Negative (Negative); PH, Urine 6.5 (5.0-8.0); Protein,Urine 1+ (Negative); RBC,Urine <1 /hpf (0-5); Specific Gravity,Urine 1.012 (1.001-1.035); Urobilinogen,Urine <2.0 mg/dL (<2.0); WBC,Urine <1 /hpf (0-5)
--- NOTE | 2023-06-22 20:23 | XR ---
EXAMINATION TYPE: XR chest 2V DATE OF EXAM: 06/22/2023 8:18 PM CLINICAL INDICATION:Male, 58 years old with history of Weakness; [facility] COMPARISON: Chest radiographs from 06/19/2023 TECHNIQUE: XR chest 2V Frontal and lateral views of the chest. FINDINGS: Lungs/Pleura: There is no evidence of pleural effusion, focal consolidation, or pneumothorax. Pulmonary vascularity: Unremarkable. Heart/mediastinum: Cardiomediastinal silhouette is enlarged and stable. Musculoskeletal: No acute osseous pathology. Midline sternotomy wires are noted. IMPRESSION: Stable cardiomegaly without evidence of acute process.
[2023-06-22] MEDS: ASPIRIN 325 MG TAB PO STA (20:38)
[2023-06-22] MEDS ORDERED: NALOXONE 0.4 MG/ML 1 ML VIAL IV PRN (21:21)
[2023-06-22] MEDS ORDERED: ACETAMINOPHEN TAB 325 MG TAB PO PRN (21:21)
[2023-06-22 23:25] LABS: Glucose,Whole Blood 210 mg/dL (70-110)
[2023-06-22] MEDS ORDERED: DEXTROSE 50% SYRINGE 50 ML IVP PRN (23:27)
[2023-06-23 02:12] LABS: Glucose,Whole Blood 218 mg/dL (70-110)
[2023-06-23] MEDS ORDERED: ACETAMINOPHEN TAB 500 MG TAB PO PRN (02:21)
[2023-06-23] MEDS: ALPRAZolam 0.25 MG TAB PO STA (02:22)
[2023-06-23 07:04] LABS: Glucose,Whole Blood 175 mg/dL (70-110)
--- NOTE | 2023-06-23 07:56 | US ---
EXAMINATION TYPE: US carotid duplex BILAT DATE OF EXAM: 06/23/2023 COMPARISON: NONE CLINICAL INDICATION: Male, 58 years old with history of cva; HTN- on meds. Patient unable to lay still TECHNIQUE: Carotid duplex ultrasound examination. Indirect Doppler criteria was utilized. FINDINGS: EXAM MEASUREMENTS: RIGHT: Peak Systolic Velocity (PSV) cm/sec ----- Right CCA: 37.4 ----- Right ICA: Occluded ----- Right ECA: 68.5 ICA/CCA ratio: N/A RIGHT: End Diastole cm/sec ----- Right CCA: 0.0 ----- Right ICA: Occluded ----- Right ECA: 0.0 LEFT: Peak Systolic Velocity (PSV) cm/sec ----- Left CCA: 89.2 ----- Left ICA: 77.5 ----- Left ECA: 81.2 ICA/CCA ratio: 0.9 LEFT: End Diastole cm/sec ----- Left CCA: 27.0 ----- Left ICA: 38.7 ----- Left ECA: 38.7 VERTEBRALS (direction of flow): Right Vertebral: Antegrade Left Vertebral: Antegrade Rhythm: Arrhythmia SUPER[employer]OR [employer] NOTES: Bilateral wall thickening and plaque seen. Right ICA occluded. IMPRESSION: 1. No significant stenosis of the left internal carotid artery by Doppler ultrasound. 2. Occlusion of the right internal carotid artery. Criteria for Assigning % of Stenosis / Diameter reduction (Estimation based on the indirect measurements of the internal carotid artery velocities (ICA PSV). 1. Normal (no stenosis)=ICA PSV < 125 cm/s: ratio < 2.0: ICA EDV<40 cm/s. 2. Less than 50% stenosis=ICA PSV < 125 cm/s: ratio < 2.0: ICA EDV<40 cm/s. 3. 50 to 69% stenosis=ICA PSV of 125 to 230 cm/s: ration 2.0 ? 4.0: ICA EDV 40-100 cm/s. 4. Greater than 70% stenosis to near occlusion= ICA PSV > 230 cm/s: ratio > 4.0: ICA EDV > 100 cm/s. 5. Near occlusion= ICA PSV velocities may be low or undetectable: variable ratio and ICA EDV. 6. Total occlusion=unable to detect flow.
[2023-06-23 08:12] LABS: Anisocytosis Slight; Basophils % (A) 1 %; Eosinophils # (A) 0.2 k/uL (0-0.7); Eosinophils % (A) 6 %; HCT 28.3 % (39.0-53.0); HGB 8.2 gm/dL (13.0-17.5); Hypochromasia Marked; Lymphocytes # (A) 0.7 k/uL (1.0-4.8); Lymphocytes % (A) 17 %; MCH 24.3 pg (25.0-35.0); MCHC 29.2 g/dL (31.0-37.0); MCV 83.2 fL (80.0-100.0); Mean Platelet Volume 8.6; Microcytosis Slight; Monocytes # (A) 0.5 k/uL (0-1.0); Monocytes % (A) 11 %; Neutrophils # (A) 2.7 k/uL (1.3-7.7); Neutrophils % (A) 63 %; Platelet Count 178 k/uL (150-450); Poikilocytosis Moderate; RDW 18.8 % (11.5-15.5); WBC 4.3 k/uL (3.8-10.6)
[2023-06-23 08:28] LABS: ALT 16 U/L (4-49); AST 18 U/L (17-59); African American GFR (CKD) 54 (>60 ml/min/1.73 sqM); Albumin 2.7 g/dL (3.5-5.0); Alkaline Phosphatase 67 U/L (38-126); Anion Gap 8 mmol/L; Blood Urea Nitrogen 53 mg/dL (9-20); Calcium 7.9 mg/dL (8.4-10.2); Carbon Dioxide 27 mmol/L (22-30); Chloride 105 mmol/L (98-107); Glucose 168 mg/dL (74-99); Non-African American GFR(CKD) 47 (>60 ml/min/1.73 sqM); Potassium 3.2 mmol/L (3.5-5.1); Sodium 140 mmol/L (137-145); Total Bilirubin 0.7 mg/dL (0.2-1.3); Total Protein 5.5 g/dL (6.3-8.2)
[2023-06-23] MEDS: PANTOPRAZOLE 40 MG TABLET PO SCH (08:53)
[2023-06-23] MEDS: FERROUS SULFATE 325 MG TAB PO SCH (08:53)
[2023-06-23] MEDS: INSULIN ASPART (NovoLOG) 100 UNIT/ML VIAL SQ SCH ×2 (08:54)
[2023-06-23] MEDS: carvediloL 12.5 MG TAB PO SCH (08:54)
[2023-06-23] MEDS: ASPIRIN 81 MG PO SCH (08:54)
[2023-06-23] MEDS: APIXABAN 5 MG TAB PO SCH (08:54)
[2023-06-23] MEDS: ATORVASTATIN 80 MG TAB PO SCH (08:55)
[2023-06-23] MEDS: hydrALAZINE HCL 25 MG TAB PO SCH (08:55)
[2023-06-23] MEDS: LOSARTAN 50 MG TAB PO SCH (08:56)
[2023-06-23] MEDS: SUCRALFATE 1 GM TAB PO SCH (08:56)
[2023-06-23] MEDS: POTASSIUM CHLORIDE ER 20 MEQ TAB.ER PO SCH (08:56)
[2023-06-23] MEDS: EZETIMIBE 10 MG TAB PO SCH (08:57)
[2023-06-23] MEDS ORDERED: DAPAGLIFLOZIN PROPANEDIOL 5 MG TABLET PO SCH (09:00)
[2023-06-23] MEDS ORDERED: FUROSEMIDE 40 MG TAB PO SCH (09:00)
[2023-06-23] MEDS ORDERED: APIXABAN 5 MG TAB PO SCH (09:00)
[2023-06-23] MEDS ORDERED: TORSEMIDE 20 MG TAB PO SCH (09:00)
[2023-06-23] MEDS ORDERED: amLODIPine 5 MG TAB PO SCH (09:00)
[2023-06-23] MEDS ORDERED: metFORMIN 500 MG TAB PO SCH (09:00)
[2023-06-23] MEDS: FUROSEMIDE 10 MG/ML 4 ML VIAL IV SCH (09:12)
[2023-06-23] MEDS: DAPAGLIFLOZIN PROPANEDIOL 10 MG TABLET PO SCH (09:12)
--- NOTE | 2023-06-23 09:43 | P.CRDCN ---
History of Present Illness History of present illness: HISTORY OF PRESENT ILLNESS: This is a 58-year-old male with a past medical history significant for coronary artery disease with previous CABG, persistent atrial fibrillation, ischemic car diomyopathy, hypertension, hyperlipidemia, diabetes and anemia. Patient follows in the office with Dr. Ga. We have been asked to see the patient in consultation for CVA/atrial fibrillation. Patient examined at the bedside in the emergency room. Patient presented to the hospital with a chief complaint of weakness. He reports generalized weakness but worse on the right side. He states he has been having difficulty with gross motor movement with his right hand. He also reports that he was in [employer] about a week ago and fell. He is unsure if he lost consciousness at that time. Patient was hospitalized earlier this month secondary to syncope and anemia. He underwent EGD and colonoscopy with Dr. Salgado on 06/09/2023. Colonoscopy revealed internal hemorrhoids, no colitis, and melanotic stool consistent with upper GI bleed. EGD revealed acute esophageal ulceration measuring 6 mm at GE junction with bleeding, erosive esophagitis, and acute on chronic gastritis. The patient was placed on Protonix and Carafate at that time. Patient states he was previously taking Eliquis although this has been held recently secondary to his acute anemia and esophageal ulceration. He reports that he went to see Dr. Low yesterday and he was started on a new diuretic. Patient currently denies chest pain or pressure. At the time of examination, he denies shortness of breath. He does report increased swelling to his lower extremities. DIAGNOSTICS: - EKG reveals atrial fibrillation with controlled ventricular rate. T waves in inferior leads and V5V6 - Chest xray stable cardiomegaly without evidence of acute process - CT brain: Negative for acute process. Redemonstrated remote left occipital infarct. - Carotid Doppler: No significant stenosis of left ICA. Occlusion of right ICA noted. - Laboratory data: WBC 4.3. Hemoglobin 8.2. Platelet count 178. Sodium 140. Potassium 3.2. BUN 53. Creatinine 1.59. Troponin negative x 1. proBNP 3980. - Current home cardiac medications include Lipitor 80 mg daily, Zetia 10 mg daily, Lasix 40 mg twice a day, losartan 100 mg daily, amlodipine 5 mg daily, carvedilol 25 mg twice - Most recent echocardiogram obtained on 06/06/2023 revealed ejection fraction 40 to 45%, no obvious regional wall motion normalities, severe pulmonary hy pertension, moderate posteriorly directed mitral regurgitation and severe tricuspid regurgitation - Cardiac catheterization performed 04/10/2022 revealed severe triple-vessel disease. Patent stent segment in the ramus intermedius and proximal left circumflex. Patent MAE to LAD. Patent SVG to OM. Chronically occluded SVG to the RCA and to the diagonal branch. Recommendations at the time was for medical management and restore sinus rhythm. - Most recent electrocardioversion 04/2019 for atrial fibrillation - Exercise stress test 11/2019 was nondiagnostic due to baseline EKG abnormalities REVIEW OF SYSTEMS: At the time of my exam: CONSTITUTIONAL: Denies fever or chills. HEENT: Denies blurred vision, vision changes, or eye pain. Denies hemoptysis CARDIOVASCULAR: Denies chest pain. Denies orthopnea. Denies PND. Denies palpitations RESPIRATORY: Denies shortness of breath. GASTROINTESTINAL: Denies abdominal pain. Denies nausea or vomiting. HEMATOLOGIC: Denies bleeding disorders. GENITOURINARY: Denies any blood in urine. SKIN: Denies pruitis. Denies rash. PHYSICAL EXAM: VITAL SIGNS: Reviewed. GENERAL: Well-developed in no acute distress. HEENT: Head is normocephalic. Pupils are equal, round. Sclerae anicteric. Mucous membranes of the mouth are moist. Neck supple. No JVD or thyromegaly LUNGS: Respirations even and unlabored. Lungs essentially clear to auscultation bilaterally. HEART: Irregular rate and rhythm. S1 and S2 heard. Systolic murmur noted. ABDOMEN: Soft. Nondistended. Nontender. EXTREMITIES: Normal range of motion. No clubbing or cyanosis. Peripheral puls es intact. 2+ bilateral pitting lower extremity edema NEUROLOGIC: Awake and alert. Oriented x 3. ASSESSMENT: Generalized weakness, right greater than left, rule out TIA/CVA Persistent atrial fibrillation with controlled ventricular rate, not anticoagulated due to recent anemia History of anemia, status post EGD and colonoscopy, revealing acute esophageal ulceration with bleeding, 06/09/2023 Acute on chronic heart failure with decreased EF, 40 to 45% Remote left occipital infarct, per CT brain Right ICA occlusion Coronary artery disease with previous CABG (2006) and subsequent stenting Ischemic cardiomyopathy, 40 to 45% Hypertension Hyperlipidemia Diabetes Valvular heart disease including moderate MR and severe TR Severe pulmonary hypertension PLAN: No need to repeat echocardiogram as this was performed earlier this month Patient has been resumed on anticoagulation per primary medicine. Continue to monitor hemoglobin. Discontinue amlodipine and Demadex Begin IV Lasix 40 mg every 12 hours Daily weights, accurate intake and output, and monitoring of kidney function Increase Farxiga to 10 mg daily Add hydralazine 25 mg twice a day for optimal blood pressure control Consider Watchman device in the future if patient continues to have issues with anticoagulation and anemia Neurology has been consulted. Await evaluation. Further recommendations pending patient course Nurse practitioner note has been reviewed by physician. Signing provider agrees with the documented findings, assessment, and plan of care documented by COLLECTIONS MANAGER as a scribe. Past Medical History Past Medical History: Asthma, Coronary Artery Disease (CAD), Chest Pain / An efren, Diabetes Mellitus, Deep Vein Thrombosis (DVT), Hyperlipidemia, Hypertension, Myocardial Infarction ([place]), Sleep Apnea/CPAP/BIPAP Additional Past Medical History / Comment(s): Obstructive sleep apnea CPAP, bronchitis, IDDM type II, DVT L leg, cellulitis L leg 2012 cellulitis L Arm 2017, diabetic neuropathy affects feet and hands, chronic kidney disease stage II Last Myocardial Infarction Date:: 06/23/13 History of Any Multi-Drug Resistant Organisms: Acinetobacter (MDRO), MRSA Date of last positivie culture/infection: 08/2014 MDRO Source:: abdomen around navel Past Surgical History: Back Surgery, Coronary Bypass/CABG, Heart Catheterization, Heart Catheterization With Stent, Hernia Repair Additional Past Surgical History / Comment(s): Cardiac caths, PCI with stents (4total), 2006 CABG 6 vessels, spinal fusion L4-L5, fasciotomy left thigh, bilateral inguinal hernia repairs, I&D L forearm with dehisence then compartment syndrome with fasciotomy Left forearm - June 2016, teeth extraction Past Anesthesia/Blood Transfusion Reactions: No Reported Reaction Date of Last Stent Placement:: 08/28/15 Past Psychological History: No Psychological Hx Reported Smoking Status: Never smoker Past Alcohol Use History: None Reported Past Drug Use History: None Reported - Past Family History Brother(s) Additional Family Medical History / Comment(s): Patient has 1 brother and 1 sister with no major medical problems. Mother Family Medical History: Congestive Heart Failure (CHF), Diabetes Mellitus Additional Family Medical History / Comment(s): Mother at the age of 84 from with history of chronic renal disease stage. Father Family Medical History: COPD, Coronary Artery Disease (CAD), Myocardial Infarction ([place]) Additional Family Medical History / Comment(s): Father of a [place] at the age of 60 yrs with history of COPD. Sister(s) Family Medical History: Rheumatoid Arthritis (RA) Additional Family Medical History / Comment(s): Patient has 1 sister with no major medical problems. Medications and Allergies Home Medications Medication Instructions Recorded Confirmed Type Ezetimibe [Zetia] 10 mg PO DAILY 12/15/20 06/23/23 History Losartan Potassium [Cozaar] 100 mg PO DAILY #30 tablet 03/18/22 06/23/23 Rx Atorvastatin [Lipitor] 80 mg PO DAILY 04/09/22 06/23/23 History metFORMIN HCL 1,000 mg PO BID 04/09/22 06/23/23 History Acetaminophen Tab [Tylenol] 500 mg PO Q8H PRN 06/05/23 06/23/23 History Insulin Aspart [NovoLOG Flexpen] 7 units SQ TID-W/MEALS 06/05/23 06/23/23 Histor y carvediloL [Coreg] 25 mg PO BID 06/05/23 06/23/23 History Ferrous Sulfate [Iron (65 MG 325 mg PO BID-W/MEALS #60 tab 06/15/23 06/23/23 Rx Elemental)] Furosemide [Lasix] 40 mg PO BID@0900,1600 #60 tab 06/15/23 06/23/23 Rx Insulin Glargine,Hum.rec.anlog 21 units SQ HS #0 06/15/23 06/23/23 Rx [Toujeo Solostar] Pantoprazole [Protonix] 40 mg PO AC-BID #60 tab 06/15/23 06/23/23 Rx Potassium Chloride ER [K-Dur 20] 20 meq PO BID #60 tab 06/15/23 06/23/23 Rx Sucralfate [Carafate] 1 gm PO AC-TID #90 tab 06/15/23 06/23/23 Rx amLODIPine [Norvasc] 5 mg PO DAILY #30 tab 06/15/23 06/23/23 Rx Allergies Allergy/AdvReac Type Severity Reaction Status Date / Time adhesive tape Allergy Severe Rash/Hives Verified 06/23/23 08:22 vancomycin Allergy Mild Head Itches Verified 06/23/23 08:22 Physical Exam Vitals: Vital Signs Temp Pulse Resp BP Pulse Ox 06/23/23 07:01 64 13 148/91 97 06/23/23 05:09 70 16 119/64 97 06/23/23 03:39 63 16 135/84 96 06/23/23 02:39 66 11 L 138/81 95 06/23/23 01:01 66 13 153/90 99 06/22/23 23:03 59 L 18 146/88 98 06/22/23 22:19 67 20 130/65 95 06/22/23 20:32 73 20 134/74 97 06/22/23 18:26 97.5 F L 74 18 144/83 95 Intake and Output 06/22/23 06/23/23 06/23/23 22:59 06:59 14:59 Other: Weight 77.111 kg Results 06/23/23 06:47 06/23/23 06:47 Cardiac Enzymes 06/22/23 06/22/23 06/23/23 Range/Units 18:40 18:40 06:47 AST 32 18 (17-59) U/L Troponin I 0.012 (0.000-0.034) ng/mL Coagulation 06/22/23 Range/Units 18:40 PT 13.9 H (10.0-12.5) sec APTT 26.9 (22.0-30.0) sec CBC 06/22/23 06/23/23 Range/Units 18:40 06:47 WBC 5.5 4.3 (3.8-10.6) k/uL RBC 3.74 L 3.40 L (4.30-5.90) m/uL Hgb 9.1 L 8.2 L (13.0-17.5) gm/dL Hct 31.0 L 28.3 L (39.0-53.0) % Plt Count 211 178 (150-450) k/uL Comprehensive Metabolic Panel 06/22/23 06/23/23 Range/Units 18:40 06:47 Sodium 137 140 (137-145) mmol/L Potassium 3.6 3.2 L (3.5-5.1) mmol/L Chloride 102 105 (98-107) mmol/L Carbon Dioxide 27 27 (22-30) mmol/L BUN 64 H 53 H (9-20) mg/dL Creatinine 1.77 H 1.59 H (0.66-1.25) mg/dL Glucose 191 H 168 H (74-99) mg/dL Calcium 8.0 L 7.9 L (8.4-10.2) mg/dL AST 32 18 (17-59) U/L ALT 19 16 (4-49) U/L Alkaline Phosphatase 75 67 (38-126) U/L Total Protein 6.1 L 5.5 L (6.3-8.2) g/dL Albumin 3.0 L 2.7 L (3.5-5.0) g/dL Current Medications Generic Name Dose Route Start Last Admin Trade Name Freq PRN Reason Stop Dose Admin Acetaminophen 650 mg 06/22/23 21:21 Acetaminophen Tab 325 Mg Tab PO Q6HR PRN Mild Pain or Fever > 100.5 Amlodipine Besylate 5 mg 06/23/23 09:00 Amlodipine 5 Mg Tab PO DAILY [facility] Apixaban 5 mg 06/23/23 09:00 Apixaban 5 Mg Tab PO BID [facility] Protocol Aspirin 81 mg 06/23/23 09:00 Aspirin 81 Mg PO DAILY [facility] Atorvastatin Calcium 80 mg 06/23/23 09:00 Atorvastatin 80 Mg Tab PO DAILY [facility] Carvedilol 25 mg 06/23/23 09:00 Carvedilol 12.5 Mg Tab PO BID [facility] Dapagliflozin 5 mg 06/23/23 09:00 Dapagliflozin Propanediol 5 Mg Tablet PO DAILY [facility] Dextrose/Water 50 ml 06/22/23 23:27 Dextrose 50% Syringe 50 Ml IVP PER PROTOCOL PRN Hypoglycemia Protocol Ezetimibe 10 mg 06/23/23 09:00 Ezetimibe 10 Mg Tab PO DAILY [facility] Ferrous Sulfate 325 mg 06/23/23 07:30 Ferrous Sulfate 325 Mg Tab PO BID-W/MEALS [facility] Insulin Aspart 0 unit 06/23/23 07:30 Insulin Aspart (Novolog) 100 Unit/Ml Vial SQ AC-TID [facility] Protocol Insulin Aspart 7 unit 06/23/23 07:30 Insulin Aspart (Novolog) 100 Unit/Ml Vial SQ TID-W/MEALS [facility] Insulin Detemir 21 unit 06/23/23 21:00 Insulin Detemir (Levemir) 100 Unit/Ml Syr SQ HS [facility] Losartan Potassium 100 mg 05/01/24 09:00 Losartan 50 Mg Tab PO DAILY [facility] Naloxone HCl 0.2 mg 06/22/23 21:21 Naloxone 0.4 Mg/Ml 1 Ml Vial IV Q2M PRN Opioid Reversal Pantoprazole Sodium 40 mg 06/23/23 07:30 Pantoprazole 40 Mg Tablet PO AC-BID [facility] Potassium Chloride 20 meq 06/23/23 09:00 Potassium Chloride Er 20 Meq Tab.Er PO BID [facility] Sucralfate 1 gm 06/23/23 07:30 Sucralfate 1 Gm Tab PO AC-TID [facility] Torsemide 40 mg 06/23/23 09:00 Torsemide 20 Mg Tab PO DAILY [facility] Intake and Output 06/22/23 06/23/23 06/23/23 22:59 06:59 14:59 Other: Weight 77.111 kg 06/23/23 06:47 06/23/23 06:47
[2023-06-23 12:02] LABS: Glucose,Whole Blood 240 mg/dL (70-110)
[2023-06-23] MEDS: ALPRAZolam 0.25 MG TAB PO PRN (15:54)
[2023-06-23 16:54] LABS: Glucose,Whole Blood 77 mg/dL (70-110)
--- NOTE | 2023-06-23 18:41 | P.HPIM ---
History of Present Illness H&P Date: 06/23/23 Chief Complaint: CVA HISTORY OF PRESENT ILLNESS: This is a 58-year-old male patient of rosita and Dr. Ga with past medical history of coronary artery disease status post 6 vessel CABG 2006 with MAE to LAD, saphenous venous graft to the PDA, saphenous venous graft to the obtuse marginal one, radial artery to the obtuse marginal branch 2 and saphenous venous graft to the obtuse marginal 3 followed by heart catheterization with PCI and stent of the saphenous venous graft to the RCA in 2015 at which time he presented with non-ST elevated myocardial infarction. Most recent cardiac catheterization was performed on 04/10/2022 which revealed severe triple-vessel coronary artery disease with a patent ramus intermediate, patent SVG to the OM, patent MAE to the LAD, and occluded saphenous vein graft to the RCA which is chronic from before. Medical therapy was advised at that time. History of hypertension, hypertensive cardiovascular disease with left ventricular hypertrophy, hyperlipidemia, ischemic cardiomyopathy, paroxysmal atrial fibrillation, currently on Eliquis, diabetes mellitus type 2 with diabetic polyneuropathy, hyperlipidemia, asthma, obstructive sleep apnea on CPAP, chronic low back pain, DVT in the past, patient was recently hospitalized at [facility] between 06/05/2023 and discharged 06/15/2023 after he was admitted for GI bleed due to esophageal ulcer. Patient had EGD and incomplete colonoscopy due to poor prep at that time. He was seen in the ER on 04/20/2023 for weakness. I saw him 06/21/2023 and he was supposed to go back on Eliquis 5 mg po bid. Now, patient showed up to the ER with weakness, right sided facial droop, and right- sided drift. He had CT scan of the brain that showed right occipital infarct, was given ASA 325 mg in the ER and CXR that showed cardiomegaly. Labs revealed stable anemia at 9.1, elevated BUN and creatinine. Patient was restarted on Eliquis 5 mg po bid and ASA 81 mg po daily. Neurology consultation was obtained along with cardiology consult, PT/O and speech therapy. We will consult case management social worker for discharge planning. REVIEW OF SYSTEMS: Constitutional: No documented fever, no chills, no night sweats. No weight change. Positive for weakness, positive for fatigue, no lethargy. No daytime sleepiness. HEENT: No headache. No blurred vision or double vision, no loss of vision. No loss of Hearing, no ringing in the ears, no dizziness. No nasal drainage or congestion. No epistaxis. No sore throat. Lungs: positive for shortness of breath, no cough, or sputum production. no wheezing. Reports dyspnea with activity. Cardiovascular: no chest pain, positive for lower extremity edema. No palpitations. No paroxysmal nocturnal dyspnea. No orthopnea. positive for lightheadedness or dizziness. No syncopal episodes. Abdominal: Reports no abdominal pain. no nausea, vomiting. No diarrhea. No constipation. No bloody or tarry stools reports loss of appetite. Genitourinary: No dysuria, increased frequency, urgency. No urinary retention. Musculoskeletal: No myalgias. positive for muscle weakness, no gait dysfunction, frequent falls. No back pain. No neck pain. Integumentary: healed forehead wound, no lesions. No rash or pruritus. No unusual bruising. No change in hair or nails. Neurologic: No aphasia. Minimal facial droop. No change in mentation. No head injury. No headache, minimal drift. Psychiatric: positive for depression. No anxiety. No mood swings. Endocrine: abnormal blood sugars. No weight change. PAST MEDICAL HISTORY: CAD post CABG with MAE to LAD SVG to PDA SVG to OM1 and the radial artery to the obtuse marginal 2 and SVG to the obtuse marginal 3 PCI of the SVG to the RCA 2015 Hypertension and hypertensive cardio vascular disease 3 Paroxysmal atrial fibrillation Diabetes mellitus type 2 Hyperlipidemia. Obstructive sleep apnea. Ischemic cardiomyopathy . Diabetic polyneuropathy. Postherpetic neuralgia. Asthma. DVT. Chronic low back pain. PAST SURGICAL HISTORY: CABG with MAE to LAD, SVG to PDA him a SVG to OM 1, radial artery to OM 2, SVG to OM 3. Left heart catheterization with PCI of the SVG to the RCA 2015. Spinal fusion L4-L5 Bilateral inguinal hernia repair. Fasciotomy to the left lower extremity. Fasciotomy to the left upper extremity. [facility] 04/10/2022 SOCIAL HISTORY: Patient is a lifelong nonsmoker, he denies any alcohol ingestion he denies any drug use or abuse. FAMILY HISTORY: Father at age of 60 from COPD he also has history of CAD post [place], mother at age of 80 fortunately history of diabetes mellitus type 2, she'll also have history of chronic kidney disease, patient has one sister with rheumatoid arthritis as well as hyperlipidemia and one brother no major medical problems. PHYSICAL EXAMINATION: General: 58-year-old male laying down in no distress. HEENT: Head is atraumatic, normocephalic, pupils were equal round reactive to light and recommendation, extraocular muscle movement were intact, sclera nonicteric, conjunctivae were pale, mucous membranes of the mouth are somewhat dry. Neck: Supple, no JVP, normal carotid upstroke bilaterally, no lymphadenopathy. Chest: Decreased breath sounds at the bases, few rhonchi no expirratory wheezes,, no chest wall tenderness, no intercostal retractions. Heart: First heart sound is normal, second heart sounds normal, irregularly irregular, there is systolic ejection murmur 2/6 located in the left sternal border. Abdomen: Soft, nontender, nondistended, positive bowel sounds, there is no hepatosplenomegaly Extremities: There is +2 edema no calf tenderness DP +1 bilaterally. Neurologic examination: Patient is awake alert and oriented X 3, cranial nerves II-12 appear grossly intact, muscle power were 4 out of 5 in upper extremities and 4 out of 5 in bilateral lower extremities, deep tendon reflexes normal b ilaterally. Minimal right facial droop, and right leg weakness. ASSESSMENT AND PLAN: 1. Acute ischemic CVA. Patient has had issues with esophageal ulcer bleeding and was supposed to be back on Eliquis 06/21/2023. CT brain showed evidence of an old right occipital CVA. No acute CVA. Will restart Eliquis 5 mg PO twice daily aspirin 81 mg daily continue Lipitor 80 mg PO daily and Zetia 10 mg PO daily. We will obtain neurology consult and an MRI of the brain with and without OLIMPIA. Patient just had an echocardiogram last month and it did show evidence of moderate LV dysfunction with moderate MR and severe pulmonary hypertension. We will consult PT/OT/ST and cardiology as well. 2. Acute kidney injury on CKD3a. We will discontinue Furosemide and we will start Torsemide 40 mg PO daily along with potassium supplement. 3. Hypertension and hypertensive cardiovascular disease. Continue the patient on losartan 100 mg orally once every day, continue patient on Carvedilol 25 mg orally twice every day, continue Amlodipine 5 mg po daily and monitor BP very closely. 4. Diabetes mellitus type 2. Restart the patient on Lantus 21 units at bedtime along with a sliding scale insulin, we will continue with Humalog 7 units before each meal, discontinue Metformin and we will start Farxiga 5 mg po daily. 5. Coronary artery disease status post CABG 6 as well as PCI in the past. Continue patient on ASA 81 mg once every day, Carvedilol 25 mg orally twice every day, continue patient on atorvastatin 80 mg orally once every day, continue Zetia 10 mg orally once every day. 6. Hyperlipidemia. Continue patient on atorvastatin 80 mg once every day, continue Zetia 10 mg orally once every day, monitor lipid panel, keep LDL 55-70. 7. Diabetic polyneuropathy. Continue patient on gabapentin 900 mg orally 2 times every day. 8. Obstructive sleep apnea. Patient does have a CPAP at home. 9. Chronic systolic heart failure. Continue with Torsemide 40 mg po daily, Carvedilol 25 mg po bid and add Farxiga 5 mg po daily. 10. Paroxysmal atrial fibrillation . Continue patient on Coreg 25 mg orally twice every day, Eliquis 5 mg po bid. 11. DVT prophylaxis. Continue Eliquis 5 mg orally twice every day. 12. GI prophylaxis. Continue Protonix 40 mg orally bid 13. Chronic blood loss anemia due to esophageal ulcer post EGD last month. We will continue with iron 325 mg po bid, protonix 40 mg po bid and Carafate 1 gr po tid. 13. Admit to inpatient. Estimated length of stay 2 midnights. 14. Patient's full code. Past Medical History Past Medical History: Asthma, Coronary Artery Disease (CAD), Chest Pain / Angina, Diabetes Mellitus, Deep Vein Thrombosis (DVT), Hyperlipidemia, Hypertension, Myocardial Infarction ([place]), Sleep Apnea/CPAP/BIPAP Additional Past Medical History / Comment(s): Obstructive sleep apnea CPAP, bronchitis, IDDM type II, DVT L leg, cellulitis L leg 2012 cellulitis L Arm 2017, diabetic neuropathy affects feet and hands, chronic kidney disease stage II Last Myocardial Infarction Date:: 06/23/13 History of Any Multi-Drug Resistant Organisms: Acinetobacter (MDRO), MRSA Date of last positivie culture/infection: 08/2014 MDRO Source:: abdomen around navel Past Surgical History: Back Surgery, Coronary Bypass/CABG, Heart Catheterization, Heart Catheterization With Stent, Hernia Repair Additional Past Surgical History / Comment(s): Cardiac caths, PCI with stents (4total), 2006 CABG 6 vessels, spinal fusion L4-L5, fasciotomy left thigh, bilateral inguinal hernia repairs, I&D L forearm with dehisence then compartment syndrome with fasciotomy Left forearm - June 2016, teeth extraction Past Anesthesia/Blood Transfusion Reactions: No Reported Reaction Date of Last Stent Placement:: 08/28/15 Past Psychological History: No Psychological Hx Reported Smoking Status: Never smoker Past Alcohol Use History: None Reported Past Drug Use History: None Reported - Past Family History Brother(s) Additional Family Medical History / Comment(s): Patient has 1 brother and 1 sister with no major medical problems. Mother Family Medical History: Congestive Heart Failure (CHF), Diabetes Mellitus Additional Family Medical History / Comment(s): Mother at the age of 84 from with history of chronic renal disease stage. Father Family Medical History: COPD, Coronary Artery Disease (CAD), Myocardial Infarction ([place]) Additional Family Medical History / Comment(s): Father of a [place] at the age of 60 yrs with history of COPD. Sister(s) Family Medical History: Rheumatoid Arthritis (RA) Additional Family Medical History / Comment(s): Patient has 1 sister with no major medical problems. Medications and Allergies Home Medications Medication Instructions Recorded Confirmed Type Ezetimibe [Zetia] 10 mg PO DAILY 12/15/20 06/23/23 History Losartan Potassium [Cozaar] 100 mg PO DAILY #30 tablet 03/18/22 06/23/23 Rx Atorvastatin [Lipitor] 80 mg PO DAILY 04/09/22 06/23/23 History metFORMIN HCL 1,000 mg PO BID 04/09/22 06/23/23 History Acetaminophen Tab [Tylenol] 500 mg PO Q8H PRN 06/05/23 06/23/23 History Insulin Aspart [NovoLOG Flexpen] 7 units SQ TID-W/MEALS 06/05/23 06/23/23 History carvediloL [Coreg] 25 mg PO BID 06/05/23 06/23/23 History Ferrous Sulfate [Iron (65 MG 325 mg PO BID-W/MEALS #60 tab 06/15/23 06/23/23 Rx Elemental)] Furosemide [Lasix] 40 mg PO BID@0900,1600 #60 tab 06/15/23 06/23/23 Rx Insulin Glargine,Hum.rec.anlog 21 units SQ HS #0 06/15/23 06/23/23 Rx [Toujeo Solostar] Pantoprazole [Protonix] 40 mg PO AC-BID #60 tab 06/15/23 06/23/23 Rx Potassium Chloride ER [K-Dur 20] 20 meq PO BID #60 tab 06/15/23 06/23/23 Rx Sucralfate [Carafate] 1 gm PO AC-TID #90 tab 06/15/23 06/23/23 Rx amLODIPine [Norvasc] 5 mg PO DAILY #30 tab 06/15/23 06/23/23 Rx Allergies Allergy/AdvReac Type Severity Reaction Status Date / Time adhesive tape Allergy Severe Rash/Hives Verified 06/23/23 08:22 vancomycin Allergy Mild Head Itches Verified 06/23/23 08:22 Physical Exam Vitals: Vital Signs Temp Pulse Resp BP Pulse Ox 06/23/23 01:01 66 13 153/90 99 06/22/23 23:03 59 L 18 146/88 98 06/22/23 22:19 67 20 130/65 95 06/22/23 20:32 73 20 134/74 97 06/22/23 18:26 97.5 F L 74 18 144/83 95 Intake and Output 06/22/23 06/22/23 06/23/23 14:59 22:59 06:59 Other: Weight 77.111 kg Results CBC & Chem 7: 06/23/23 06:47 06/23/23 06:47 Labs: Abnormal Lab Results - Last 24 Hours (Table) 06/22/23 06/22/23 06/22/23 Range/Units 18:40 18:40 18:40 RBC 3.74 L (4.30-5.90) m/uL Hgb 9.1 L (13.0-17.5) gm/dL Hct 31.0 L (39.0-53.0) % MCH 24.5 L (25.0-35.0) pg MCHC 29.5 L (31.0-37.0) g/dL RDW 19.0 H (11.5-15.5) % Lymphocytes # 0.7 L (1.0-4.8) k/uL PT 13.9 H (10.0-12.5) sec INR 1.3 H (<1.2) BUN 64 H (9-20) mg/dL Creatinine 1.77 H (0.66-1.25) mg/dL Glucose 191 H (74-99) mg/dL POC Glucose (mg/dL) (70-110) mg/dL Calcium 8.0 L (8.4-10.2) mg/dL Total Protein 6.1 L (6.3-8.2) g/dL Albumin 3.0 L (3.5-5.0) g/dL Urine Protein (Negative) Urine Glucose (UA) (Negative) 06/22/23 06/22/23 06/22/23 Range/Units 18:51 20:02 23:24 RBC (4.30-5.90) m/uL Hgb (13.0-17.5) gm/dL Hct (39.0-53.0) % MCH (25.0-35.0) pg MCHC (31.0-37.0) g/dL RDW (11.5-15.5) % Lymphocytes # (1.0-4.8) k/uL PT (10.0-12.5) sec INR (<1.2) BUN (9-20) mg/dL Creatinine (0.66-1.25) mg/dL Glucose (74-99) mg/dL POC Glucose (mg/dL) 208 H 210 H (70-110) mg/dL Calcium (8.4-10.2) mg/dL Total Protein (6.3-8.2) g/dL Albumin (3.5-5.0) g/dL Urine Protein 1+ H (Negative) Urine Glucose (UA) 1+ H (Negative) 06/23/23 Range/Units 02:11 RBC (4.30-5.90) m/uL Hgb (13.0-17.5) gm/dL Hct (39.0-53.0) % MCH (25.0-35.0) pg MCHC (31.0-37.0) g/dL RDW (11.5-15.5) % Lymphocytes # (1.0-4.8) k/uL PT (10.0-12.5) sec INR (<1.2) BUN (9-20) mg/dL Creatinine (0.66-1.25) mg/dL Glucose (74-99) mg/dL POC Glucose (mg/dL) 218 H (70-110) mg/dL Calcium (8.4-10.2) mg/dL Total Protein (6.3-8.2) g/dL Albumin (3.5-5.0) g/dL Urine Protein (Negative) Urine Glucose (UA) (Negative)
[2023-06-23 20:24] LABS: Glucose,Whole Blood 92 mg/dL (70-110)
[2023-06-23] MEDS: INSULIN DETEMIR (LEVEMIR) 100 UNIT/ML SYR SQ SCH (20:56)
[2023-06-23] MEDS ORDERED: NON FORMULARY DRUG (Insulin Glargine,Hum.Rec.Anlog [Toujeo Solostar] 300 UNIT/ML Insuln.Pe SQ SCH (21:00)
[2023-06-24 06:19] LABS: Glucose,Whole Blood 58 mg/dL (70-110)
[2023-06-24 06:37] LABS: Glucose,Whole Blood 66 mg/dL (70-110)
[2023-06-24 06:57] LABS: Glucose,Whole Blood 111 mg/dL (70-110)
--- NOTE | 2023-06-24 07:50 | XR ---
EXAMINATION TYPE: XR chest 2V DATE OF EXAM: 06/24/2023 COMPARISON: 06/22/2023 TECHNIQUE: PA and lateral views submitted. HISTORY: Dysphasia FINDINGS: Post median sternotomy changes with cardiomegaly. There is diffuse interstitial pattern with tiny ple ural effusion bilateral subsegmental consolidation. Favor atelectasis. Question epicardial lead. Unde rlying COPD. Degenerative changes in the spine. Arthropathy of the shoulders. IMPRESSION: 1. Correlate for mild CHF superimposed on a background of COPD..
[2023-06-24 09:25] LABS: Anisocytosis Slight; Basophils % (A) 0 %; Eosinophils # (A) 0.2 k/uL (0-0.7); Eosinophils % (A) 5 %; HCT 32.5 % (39.0-53.0); HGB 9.3 gm/dL (13.0-17.5); Hypochromasia Marked; Lymphocytes # (A) 0.6 k/uL (1.0-4.8); Lymphocytes % (A) 15 %; MCH 23.7 pg (25.0-35.0); MCHC 28.5 g/dL (31.0-37.0); MCV 83.3 fL (80.0-100.0); Mean Platelet Volume 8.9; Microcytosis Slight; Monocytes # (A) 0.5 k/uL (0-1.0); Monocytes % (A) 11 %; Neutrophils # (A) 2.8 k/uL (1.3-7.7); Neutrophils % (A) 66 %; Platelet Count 185 k/uL (150-450); Poikilocytosis Slight; RBC 3.91 m/uL (4.30-5.90); RDW 18.9 % (11.5-15.5); WBC 4.2 k/uL (3.8-10.6)
--- NOTE | 2023-06-24 10:16 | P.CNNES ---
History of Present Illness Consult date: 06/23/23 Requesting physician: Adnriy Arreguin Reason for Consult: CVA History of Present Illness: Patient is a 58-year-old right-handed male with history of diabetes, hypertension, recent GI bleed, anemia, atrial fibrillation, came to the hospital yesterday at 5:46 PM for strokelike symptoms. Patient states that he woke up yesterday around 10 AM, and noticed that he was losing balance, could not walk well. Also noticed loss of function of the right hand more than the left and developed right facial droop with slurred speech. He could not get a ride, therefore could not come to the hospital right away. Vital signs on arrival blood pressure 144/83 pulse rate 74 temperature 97.5. Blood test shows normal WBC, hemoglobin 9.1, platelets are 211. INR 1.3. Electrolytes are normal, BUN 64 creatinine 1.77. Hepatic panel is normal, troponin negative. UA negative. EKG showed atrial fibrillation. Chest x-ray showed stable cardiomegaly without evidence of acute process. CT head revealed no acute intracranial process. Redemonstrated remote left occipital infarct. I personally reviewed CT head agree with the findings. Patient was not a candidate for tPA, as he came outside the window for tPA. Patient has history of atrial fibrillation, used to be on aspirin and Eliquis. He also had to remove all his teeth, therefore he stopped taking Eliquis about 2 months ago. He had teeth extracted on 05/25/2023. About 2 days prior to these teeth extraction, he also stopped taking his aspirin as well. Currently he is not on any antiplatelets or anticoagulants. Patient has never smoked, drinks alcohol occasionally. He has history of diabetes for 20 years also has hypertension. Patient has recently visited ER multiple times. On review of records, he came to the hospital on 03/30/2023 for a fall, tripping and hitting the back of his head and neck on the shower door. No loss of consciousness. He was complaining of dizziness. CT head and cervical spine were done which were negative. He was given IV fluids he was discharged on meclizine. Patient then again came to the ER on 06/04/2023 for a fall. He went to [facility], and there he felt a bit dizzy. He wanted to sit down, but ended up falling to the ground producing a laceration over the forehead. He may have passed out just for a second. It was reported that he has not taken Eliquis for over the last 2 weeks because he was undergoing dental workup. He again visited ER 06/19/2023 for generalized weakness with anemia. Review of Systems Constitutional: Denies chills (cold all the time), Denies fever Eyes: denies blurred vision, denies diplopia, denies pain, denies loss of vision Ears: deny: decreased hearing, ear discharge Ears, nose, mouth and throat: Reports vertigo (When fell coulple weeks ago before the fall. None now), Denies headache Cardiovascular: Denies chest pain, Denies shortness of breath Respiratory: Reports cough, Reports excessive sputum Gastrointestinal: Reports BRBPR (little bit), Denies abdominal pain, Denies diarrhea, Denies nausea, Denies vomiting Genitourinary: Denies dysuria, Denies incontinence Musculoskeletal: Denies low back pain, Denies neck pain Integumentary: Denies pruritus, Denies rash Neurological: Reports as per HPI Psychiatric: Denies anxiety, Denies depression Hematologic/Lymphatic: Reports easy bleeding, Denies easy bruising Past Medical History Past Medical History: Asthma, Coronary Artery Disease (CAD), Chest Pain / Angina, Diabetes Mellitus, Deep Vein Thrombosis (DVT), Hyperlipidemia, Hypertension, Myocardial Infarction (SD), Sleep Apnea/CPAP/BIPAP Additional Past Medical History / Comment(s): Obstructive sleep apnea CPAP, bronchitis, IDDM type II, DVT L leg, cellulitis L leg 2012 cellulitis L Arm 2017, diabetic neuropathy affects feet and hands, chronic kidney disease stage II Last Myocardial Infarction Date:: 06/23/13 History of Any Multi-Drug Resistant Organisms: Acinetobacter (MDRO), MRSA Date of last positivie culture/infection: 08/2014 MDRO Source:: abdomen around navel Past Surgical History: Back Surgery, Coronary Bypass/CABG, Heart Cathete rization, Heart Catheterization With Stent, Hernia Repair Additional Past Surgical History / Comment(s): Cardiac caths, PCI with stents (4total), 2006 CABG 6 vessels, spinal fusion L4-L5, fasciotomy left thigh, bilateral inguinal hernia repairs, I&D L forearm with dehisence then compartment syndrome with fasciotomy Left forearm - June 2016, teeth extraction Past Anesthesia/Blood Transfusion Reactions: No Reported Reaction Date of Last Stent Placement:: 08/28/15 Past Psychological History: No Psychological Hx Reported Smoking Status: Never smoker Past Alcohol Use History: None Reported Past Drug Use History: None Reported - Past Family History Brother(s) Additional Family Medical History / Comment(s): Patient has 1 brother and 1 sister with no major medical problems. Mother Family Medical History: Congestive Heart Failure (CHF), Diabetes Mellitus Additional Family Medical History / Comment(s): Mother at the age of 84 from with history of chronic renal disease stage. Father Family Medical History: COPD, Coronary Artery Disease (CAD), Myocardial Infarction (SD) Additional Family Medical History / Comment(s): Father of a SD at the age of 60 yrs with history of COPD. Sister(s) Family Medical History: Rheumatoid Arthritis (RA) Additional Family Medical History / Comment(s): Patient has 1 sister with no major medical problems. Medications and Allergies Home Medications Medication Instructions Recorded Confirmed Type Ezetimibe [Zetia] 10 mg PO DAILY 12/15/20 06/23/23 History Losartan Potassium [Cozaar] 100 mg PO DAILY #30 tablet 03/18/22 06/23/23 Rx Atorvastatin [Lipitor] 80 mg PO DAILY 04/09/22 06/23/23 History metFORMIN HCL 1,000 mg PO BID 04/09/22 06/23/23 History Acetaminophen Tab [Tylenol] 500 mg PO Q8H PRN 06/05/23 06/23/23 History Insulin Aspart [NovoLOG Flexpen] 7 units SQ TID-W/MEALS 06/05/23 06/23/23 History carvediloL [Coreg] 25 mg PO BID 06/05/23 06/23/23 History Ferrous Sulfate [Iron (65 MG 325 mg PO BID-W/MEALS #60 tab 06/15/23 06/23/23 Rx Elemental)] Furosemide [Lasix] 40 mg PO BID@0900,1600 #60 tab 06/15/23 06/23/23 Rx Insulin Glargine,Hum.rec.anlog 21 units SQ HS #0 06/15/23 06/23/23 Rx [Toujeo Solostar] Pantoprazole [Protonix] 40 mg PO AC-BID #60 tab 06/15/23 06/23/23 Rx Potassium Chloride ER [K-Dur 20] 20 meq PO BID #60 tab 06/15/23 06/23/23 Rx Sucralfate [Carafate] 1 gm PO AC-TID #90 tab 06/15/23 06/23/23 Rx amLODIPine [Norvasc] 5 mg PO DAILY #30 tab 06/15/23 06/23/23 Rx Allergies Allergy/AdvReac Type Severity Reaction Status Date / Time adhesive tape Allergy Severe Rash/Hives Verified 06/23/23 08:22 vancomycin Allergy Mild Head Itches Verified 06/23/23 08:22 Physical Examination - Vital Signs Vital Signs: Vital Signs Temp Pulse Pulse Resp BP BP Pulse Ox 06/23/23 16:39 97.4 F L 56 L 20 145/75 96 06/23/23 16:03 98.4 F 58 L 22 144/81 97 06/23/23 12:20 97.6 F 63 20 117/65 95 06/23/23 08:51 98.5 F 65 16 158/73 93 L 06/23/23 07:01 64 13 148/91 97 06/23/23 05:09 70 16 119/64 97 06/23/23 03:39 63 16 135/84 96 06/23/23 02:39 66 11 L 138/81 95 06/23/23 01:01 66 13 153/90 99 06/22/23 23:03 59 L 18 146/88 98 06/22/23 22:19 67 20 130/65 95 06/22/23 20:32 73 20 134/74 97 06/22/23 18:26 97.5 F L 74 18 144/83 95 Patient is a late middle aged male, in no acute distress. Patient is alert awake oriented to time place and person. Speech is mildly dysarthric and language functions are normal. Patient can name and repeat very well. Attention, concentration and fund of knowledge is adequate. On cranial nerve examination, pupils are equal, round and reacting to light, visual alvares are full on confrontation, with no neglect on double simultaneous stimulation. Extraocular muscles are intact with no nystagmus. Patient has right facial weakness, central type. His tongue protrudes to the midline. Palatal elevation and sensation normal, hearing and shoulder shrug normal, facial sensation normal. On muscle strength testing, there is right pronator drift about 45 degree and the strength is (right/left) deltoid 5/5, biceps 5/5, triceps 5/5, control valve technician 4+5-/5, hip flexion 4/5, ankle dorsiflexion 5/5. Deep tendon reflexes are symmetric 1-1+ in the biceps, brachioradialis, knees, absent ankles and plantars are probable upgoing bilaterally. Sensory to touch is equal with no neglect on double simultaneous stimulation. Cerebellar function showed mild to moderate ataxia for [id number] testing only on the right side. Mild ataxia for [id number] testing on either side. Tone and bulk of muscles normal. Gait deferred.. On general examination, there is no carotid bruit or murmur, S1-S2 audible. Chest is clear on consultation. Abdomen is soft nontender. No organomegaly, bowel sounds present. Patient is some mild to moderate peripheral edema. Skin is very dry. Some hyperpigmentation noted. Results - Laboratory Findings CBC and BMP: 06/24/23 08:29 06/23/23 06:47 Abnormal Lab Findings: Abnormal Labs 06/22/23 06/22/23 06/22/23 18:40 18:40 18:40 RBC 3.74 L Hgb 9.1 L Hct 31.0 L MCH 24.5 L MCHC 29.5 L RDW 19.0 H Lymphocytes # 0.7 L PT 13.9 H INR 1.3 H Potassium BUN 64 H Creatinine 1.77 H Glucose 191 H POC Glucose (mg/dL) Calcium 8.0 L Total Protein 6.1 L Albumin 3.0 L Urine Protein Urine Glucose (UA) 06/22/23 06/22/23 06/22/23 18:51 20:02 23:24 RBC Hgb Hct MCH MCHC RDW Lymphocytes # PT INR Potassium BUN Creatinine Glucose POC Glucose (mg/dL) 208 H 210 H Calcium Total Protein Albumin Urine Protein 1+ H Urine Glucose (UA) 1+ H 06/23/23 06/23/23 06/23/23 02:11 06:47 06:47 RBC 3.40 L Hgb 8.2 L Hct 28.3 L MCH 24.3 L MCHC 29.2 L RDW 18.8 H Lymphocytes # 0.7 L PT INR Potassium 3.2 L BUN 53 H Creatinine 1.59 H Glucose 168 H POC Glucose (mg/dL) 218 H Calcium 7.9 L Total Protein 5.5 L Albumin 2.7 L Urine Protein Urine Glucose (UA) 06/23/23 06/23/23 07:03 11:59 RBC Hgb Hct MCH MCHC RDW Lymphocytes # PT INR Potassium BUN Creatinine Glucose POC Glucose (mg/dL) 175 H 240 H Calcium Total Protein Albumin Urine Protein Urine Glucose (UA) Assessment and Plan Assessment: * Probable acute stroke manifesting with right hemiparesis, dysarthria. Patient's current NIH stroke scale is 5, scoring for right arm drift, right leg drift, right facial droop, right arm ataxia and slurring. * Atrial fibrillation, stopped anticoagulation 2 months ago because of dental work and also recent GI bleed. * Diabetes * Hypertension * Chronic anemia * Chronic renal insufficiency, mild to moderate Plan: MRI of the brain without contrast, evaluate for acute CVA 2-D echo performed recently on 06/07/2023 showed moderate LV systolic dysfunction with EF of 40 to 45%. Septal thickness. Moderate to severe pulmonary hyper tension. Moderate posteriorly directed mitral regurgitation and severe TR. Moderately increased left atrial diameter. No need to repeat. Carotid Doppler, revealed no significant stenosis of the left ICA by Doppler ultrasound. Occlusion of the right ICA. Antegrade flow in both vertebral arteries. Fasting a.m. lipid panel. Continue Lipitor 80 mg daily. Hemoglobin A1c 9.3 on 06/06/2023. Recommend optimize control of diabetes to target A1c <7.0. B12 1207, folate 12.0. TSH normal. Permissive hypertension for next 24-48 hours Patient has been resumed on Eliquis 5 mg twice daily, also on aspirin 81 mg daily for right carotid occlusion. Neuro checks every 4 hours. Telemetry monitoring rule out any arrhythmia PT, OT, speech therapy DVT prophylaxis: Patient on Eliquis. Neurology will continue to follow. Thank you for the consult.
[2023-06-24 10:25] LABS: ALT 19 U/L (4-49); AST 22 U/L (17-59); African American GFR (CKD) 61 (>60 ml/min/1.73 sqM); Albumin 3.2 g/dL (3.5-5.0); Alkaline Phosphatase 58 U/L (38-126); Anion Gap 11 mmol/L; Blood Urea Nitrogen 37 mg/dL (9-20); Carbon Dioxide 28 mmol/L (22-30); Chloride 104 mmol/L (98-107); Glucose 124 mg/dL (74-99); Non-African American GFR(CKD) 52 (>60 ml/min/1.73 sqM); Potassium 3.3 mmol/L (3.5-5.1); Sodium 143 mmol/L (137-145); Total Bilirubin 0.8 mg/dL (0.2-1.3); Total Protein 6.2 g/dL (6.3-8.2)
--- NOTE | 2023-06-24 11:24 | P.PN ---
Subjective HISTORY OF PRESENT ILLNESS: This is a 58-year-old male with a past medical history significant for coronary artery disease with previous CABG, persistent atrial fibrillation, ischemic cardiomyopathy, hypertension, hyperlipidemia, diabetes and anemia. Patient follows in the office with Dr. Ga. We have been asked to see the patient in consultation for CVA/atrial fibrillation. Patient examined at the bedside in the emergency room. Patient presented to the hospital with a chief complaint of weakness. He reports generalized weakness but worse on the right side. He states he has been having difficulty with gross motor movement with his right hand. He also reports that he was in [employer] about a week ago and fell. He is unsure if he lost consciousness at that time. Patient was hospitalized earlier this month secondary to syncope and anemia. He underwent EGD and colonoscopy with Dr. Salgado on 06/09/2023. Colonoscopy revealed internal hemorrhoids, no colitis, and melanotic stool consistent with upper GI bleed. EGD revealed acute esophageal ulceration measuring 6 mm at GE junction with bleeding, erosive esophagitis, and acute on chronic gastritis. The patient was placed on Protonix and Carafate at that time. Patient states he was previously taking Eliquis although this has been held recently secondary to his acute anemia and esophageal ulceration. He reports that he went to see Dr. Low yesterday and he was started on a new diuretic. Patient currently denies chest pain or pressure. At the time of examination, he denies shortness of breath. He does report increased swelling to his lower extremities. DIAGNOSTICS: - EKG reveals atrial fibrillation with controlled ventricular rate. T waves in inferior leads and V5V6 - Chest xray stable cardiomegaly without evidence of acute process - CT brain: Negative for acute process. Redemonstrated remote left occipital infarct. - Carotid Doppler: No significant stenosis of left ICA. Occlusion of right ICA noted. - Laboratory data: WBC 4.3. Hemoglobin 8.2. Platelet count 178. Sodium 140. Potassium 3.2. BUN 53. Creatinine 1.59. Troponin negative x 1. proBNP 3980. - Current home cardiac medications include Lipitor 80 mg daily, Zetia 10 mg daily, Lasix 40 mg twice a day, losartan 100 mg daily, amlodipine 5 mg daily, carvedilol 25 mg twice - Most recent echocardiogram obtained on 06/06/2023 revealed ejection fraction 40 to 45%, no obvious regional wall motion normalities, severe pulmonary hypertension, moderate posteriorly directed mitral regurgitation and severe tricuspid regurgitation - Cardiac catheterization performed 04/10/2022 revealed severe triple-vessel disease. Patent stent segment in the ramus intermedius and proximal left circumflex. Patent MAE to LAD. Patent SVG to OM. Chronically occluded SVG to the RCA and to the diagonal branch. Recommendations at the time was for medical management and restore sinus rhythm. - Most recent electrocardioversion 04/2019 for atrial fibrillation - Exercise stress test 11/2019 was nondiagnostic due to baseline EKG abnormalities 06/24/2023 Patient examined this morning at the bedside. Patient denies chest pain or pressure. Denies SOB. He continues to have lower extremity edema but improved from yesterday. Kidney function remains stable. Creatinine 1.44. Vital signs are stable. PHYSICAL EXAM: VITAL SIGNS: Reviewed. GENERAL: Well-developed in no acute distress. HEENT: Head is normocephalic. Pupils are equal, round. Sclerae anicteric. Mucous membranes of the mouth are moist. Neck supple. No JVD or thyromegaly LUNGS: Respirations even and unlabored. Lungs essentially clear to auscultation bilaterally. HEART: Irregular rate and rhythm. S1 and S2 heard. Systolic murmur noted. ABDOMEN: Soft. Nondistended. Nontender. EXTREMITIES: Normal range of motion. No clubbing or cyanosis. Peripheral pulses intact. 2+ bilateral pitting lower extremity edema NEUROLOGIC: Awake and alert. Oriented x 3. ASSESSMENT: Generalized weakness, right greater than left, rule out TIA/CVA Persistent atrial fibrillation with controlled ventricular rate, not anticoagulated on an outpatient basis due to recent anemia History of anemia, status post EGD and colonoscopy, revealing acute esophageal ulceration with bleeding, 06/09/2023 Acute on chronic heart failure with decreased EF, 40 to 45% Remote left occipital infarct, per CT brain Right ICA occlusion Coronary artery disease with previous CABG (62006) and subsequent stenting Ischemic cardiomyopathy, 40 to 45% Hypertension Hyperlipidemia Diabetes Valvular heart disease including moderate MR and severe TR Severe pulmonary hypertension PLAN: No need to repeat echocardiogram as this was performed earlier this month Continue IV lasix for an additional 24 hours Daily weights, accurate I&O and monitoring of kidney function Consider Watchman device in the future if patient continues to have issues with anticoagulation and anemia Further recommendations pending patient course Nurse practitioner note has been reviewed by physician. Signing provider agrees with the documented findings, assessment, and plan of care documented by SPOTTER as a scribe. Objective - Vital Signs Vital signs: Vital Signs Temp 97.5 F L 06/24/23 09:04 Pulse 73 06/24/23 09:04 Resp 18 06/24/23 09:05 BP 160/86 06/24/23 09:04 Pulse Ox 93 L 06/24/23 09:04 FiO2 Intake & Output 06/23/23 06/24/23 06/24/23 18:59 06:59 18:59 Intake Total 236 420 Output Total 1850 700 Balance 236 -1850 -280 Weight 77.111 kg 79.6 kg Intake: Oral 236 420 Output: Urine 1850 700 Other: Voiding Method Urinal Urinal Urinal # Voids 1 # Bowel Movements 2 1 - Labs CBC & Chem 7: 06/24/23 08:29 06/24/23 08:29 Labs: Abnormal Lab Results - Last 24 Hours (Table) 06/23/23 06/24/23 06/24/23 Range/Units 11:59 06:18 06:35 RBC (4.30-5.90) m/uL Hgb (13.0-17.5) gm/dL Hct (39.0-53.0) % MCH (25.0-35.0) pg MCHC (31.0-37.0) g/dL RDW (11.5-15.5) % Lymphocytes # (1.0-4.8) k/uL Potassium (3.5-5.1) mmol/L BUN (9-20) mg/dL Creatinine (0.66-1.25) mg/dL Glucose (74-99) mg/dL POC Glucose (mg/dL) 240 H 58 L 66 L (70-110) mg/dL Calcium (8.4-10.2) mg/dL Total Protein (6.3-8.2) g/dL Albumin (3.5-5.0) g/dL 06/24/23 06/24/23 06/24/23 Range/Units 06:56 08:29 08:29 RBC 3.91 L (4.30-5.90) m/uL Hgb 9.3 L (13.0-17.5) gm/dL Hct 32.5 L (39.0-53.0) % MCH 23.7 L (25.0-35.0) pg MCHC 28.5 L (31.0-37.0) g/dL RDW 18.9 H (11.5-15.5) % Lymphocytes # 0.6 L (1.0-4.8) k/uL Potassium 3.3 L (3.5-5.1) mmol/L BUN 37 H (9-20) mg/dL Creatinine 1.44 H (0.66-1.25) mg/dL Glucose 124 H (74-99) mg/dL POC Glucose (mg/dL) 111 H (70-110) mg/dL Calcium 8.0 L (8.4-10.2) mg/dL Total Protein 6.2 L (6.3-8.2) g/dL Albumin 3.2 L (3.5-5.0) g/dL
[2023-06-24 11:38] LABS: Glucose,Whole Blood 133 mg/dL (70-110)
[2023-06-24] MEDS: POTASSIUM CHLORIDE ER 20 MEQ TAB.ER PO SCH (13:03)
--- NOTE | 2023-06-24 14:23 | MR ---
EXAMINATION TYPE: MR brain wo/w con DATE OF EXAM: 06/24/2023 2:18 PM CLINICAL INDICATION:Male, 58 years old with history of CVA; PHH, CVA. COMPARISON: 06/22/2023 TECHNIQUE: Multi planar, multi sequence imaging was performed through the brain including: T1, T2, In version recovery, susceptibility weighted imaging and gradient echo imaging and Diffusion weighted im aging. The patient was then given intravenous contrast and multi planar, T1 fat-saturation images wer e obtained. IV Contrast: 7.5 cc Gadobutrol FINDINGS: Restricted diffusion within the left chelsey. Mild cerebral atrophy with proportional dilation of ventricular system. Intracranial arterial flow voids are maintained. Midline structures show no abnormality. Scattered foci of high T2 signal intens ity are seen within the periventricular white matter. The susceptibility weighted images do not revea l any evidence for micro-hemorrhage. After administration of gadolinium, no abnormal enhancement is s een. The bone marrow signal is within normal limits. Paranasal sinuses and mastoid air cells: No significant paranasal sinus disease. Visualized orbits: Orbital contents are intact. IMPRESSION: 1. Acute/subacute CVA involving the left chelsey. 2. No abnormal postcontrast enhancement. 3. Nonspecific white matter changes, likely related to small vessel ischemic disease.
[2023-06-24 15:46] LABS: Chol/HDL Ratio 3.95 Ratio; LDL Cholesterol,Calculated 57.4 mg/dL (0.0-131.0); VLDL Calculation 18.02 mg/dL (5.00-40.00)
[2023-06-24 16:38] LABS: Glucose,Whole Blood 81 mg/dL (70-110)
--- NOTE | 2023-06-24 19:45 | P.PN ---
Subjective Progress Note Date: 06/24/23 HISTORY OF PRESENT ILLNESS: This is a 58-year-old male patient of rosita and Dr. Ga with past medical history of coronary artery disease status post 6 vessel CABG 2006 with MAE to LAD, saphenous venous graft to the PDA, saphenous venous graft to the obtuse marginal one, radial artery to the obtuse marginal branch 2 and saphenous venous graft to the obtuse marginal 3 followed by heart catheterization with PCI and stent of the saphenous venous graft to the RCA in 2015 at which time he pres ented with non-ST elevated myocardial infarction. Most recent cardiac catheterization was performed on 04/10/2022 which revealed severe triple-vessel coronary artery disease with a patent ramus intermediate, patent SVG to the OM, patent MAE to the LAD, and occluded saphenous vein graft to the RCA which is chronic from before. Medical therapy was advised at that time. History of hypertension, hypertensive cardiovascular disease with left ventricular hypertrophy, hyperlipidemia, ischemic cardiomyopathy, paroxysmal atrial fibrillation, currently on Eliquis, diabetes mellitus type 2 with diabetic polyneuropathy, hyperlipidemia, asthma, obstructive sleep apnea on CPAP, chronic low back pain, DVT in the past, patient was recently hospitalized at [facility] between 06/05/2023 and discharged 06/15/2023 after he was admitted for GI bleed due to esophageal ulcer. Patient had EGD and incomplete colonoscopy due to poor prep at that time. He was seen in the ER on 04/20/2023 for weakness. I s aw him 06/21/2023 and he was supposed to go back on Eliquis 5 mg po bid. Now, patient showed up to the ER with weakness, right sided facial droop, and right- sided drift. He had CT scan of the brain that showed right occipital infarct, was given ASA 325 mg in the ER and CXR that showed cardiomegaly. Labs revealed stable anemia at 9.1, elevated BUN and creatinine. Patient was restarted on Eliquis 5 mg po bid and ASA 81 mg po daily. Neurology consultation was obtained along with cardiology consult, PT/O and speech therapy. We will consult manager social media for discharge planning. 06/23: Patient is sitting up in bed. He looks much better today, right-sided weakness slightly improved, right-sided facial droop remains. MRI brain reveals acute/subacute CVA involving the left chelsey. Continue Eliquis 5 mg PO twice daily and aspirin 81 mg PO daily, Lipitor 80 mg PO daily, and Zetia 10 mg PO daily. Hemoglobin has improved to 9.3, potassium 3.3 continue potassium chloride 20 mEq twice daily. Consultation for inpatient rehab has been placed, discharge plan pending rehabilitation recommendation. Patient remains a no code at this time. REVIEW OF SYSTEMS: Constitutional: No documented fever, no chills, no night sweats. No weight change. Positive for weakness, positive for fatigue, no lethargy. No daytime sleepiness. HEENT: No headache. No blurred vision or double vision, no loss of vision. No loss of Hearing, no ringing in the ears, no dizziness. No nasal drainage or congestion. No epistaxis. No sore throat. Lungs: positive for shortness of breath, no cough, or sputum production. no wheezing. Reports dyspnea with activity. Cardiovascular: no chest pain, positive for lower extremity edema. No palpitations. No paroxysmal nocturnal dyspnea. No orthopnea. positive for l ightheadedness or dizziness. No syncopal episodes. Abdominal: Reports no abdominal pain. no nausea, vomiting. No diarrhea. No constipation. No bloody or tarry stools reports loss of appetite. Genitourinary: No dysuria, increased frequency, urgency. No urinary retention. Musculoskeletal: No myalgias. positive for muscle weakness, no gait dysfunction, frequent falls. No back pain. No neck pain. Integumentary: healed forehead wound, no lesions. No rash or pruritus. No unusual bruising. No change in hair or nails. Neurologic: No aphasia. Minimal facial droop. No change in mentation. No head injury. No headache, minimal drift. Psychiatric: positive for depression. No anxiety. No mood swings. Endocrine: abnormal blood sugars. No weight change. PHYSICAL EXAMINATION: General: 58-year-old male laying down in no distress. HEENT: Head is atraumatic, normocephalic, pupils were equal round reactive to light and recommendation, extraocular muscle movement were intact, sclera nonicteric, conjunctivae were pale, mucous membranes of the mouth are somewhat dry. Neck: Supple, no JVP, normal carotid upstroke bilaterally, no lymphadenopathy. Chest: Decreased breath sounds at the bases, few rhonchi no expirratory wheezes,, no chest wall tenderness, no intercostal retractions. Heart: First heart sound is normal, second heart sounds normal, irregularly irregular, there is systolic ejection murmur 2/6 located in the left sternal border. Abdomen: Soft, nontender, nondistended, positive bowel sounds, there is no hepatosplenomegaly Extremities: There is +2 edema no calf tenderness DP +1 bilaterally. Neurologic examination: Patient is awake alert and oriented X 3, cranial nerves II-12 appear grossly intact, muscle power were 4 out of 5 in upper extremities and 4 out of 5 in bilateral lower extremities, deep tendon reflexes normal bilaterally. Minimal right facial droop, and right leg weakness. ASSESSMENT AND PLAN: 1. Acute ischemic CVA. Continue Eliquis 5 mg PO twice, daily aspirin 81 mg daily, continue Lipitor 80 mg PO daily, and Zetia 10 mg PO daily. Patient just had an echocardiogram last month and it did show evidence of moderate LV dysfunction with moderate MR and severe pulmonary hypertension. We will consult PT/OT/ST and cardiology as well. MRI brain with and without OLIMPIA reveals acute subacute CVA left chelsey. Consultation has been made for inpatient rehab. 2. Acute kidney injury on CKD3a. We will discontinue Furosemide and we will start Torsemide 40 mg PO daily along with potassium supplement. 3. Hypertension and hypertensive cardiovascular disease. Continue the patient on losartan 100 mg orally once every day, continue patient on Carvedilol 25 mg orally twice every day, continue Amlodipine 5 mg po daily and monitor BP very closely. 4. Diabetes mellitus type 2. Restart the patient on Lantus 21 units at bedtime along with a sliding scale insulin, we will continue with Humalog 7 units before each meal, discontinue Metformin and we will start Farxiga 5 mg po daily. 5. Coronary artery disease status post CABG 6 as well as PCI in the past. Continue patient on ASA 81 mg once every day, Carvedilol 25 mg orally twice every day, continue patient on atorvastatin 80 mg orally once every day, continue Zetia 10 mg orally once every day. 6. Hyperlipidemia. Continue patient on atorvastatin 80 mg once every day, continue Zetia 10 mg orally once every day, monitor lipid panel, keep LDL 55-70. 7. Diabetic polyneuropathy. Continue patient on gabapentin 900 mg orally 2 times every day. 8. Obstructive sleep apnea. Patient does have a CPAP at home. 9. Chronic systolic heart failure. Continue with Torsemide 40 mg po daily, Carvedilol 25 mg po bid and add Farxiga 5 mg po daily. 10. Paroxysmal atrial fibrillation . Continue patient on Coreg 25 mg orally twice every day, Eliquis 5 mg po bid. 11. DVT prophylaxis. Continue Eliquis 5 mg orally twice every day. 12. GI prophylaxis. Continue Protonix 40 mg orally bid 13. Chronic blood loss anemia due to esophageal ulcer post EGD last month. We will continue with iron 325 mg po bid, protonix 40 mg po bid and Carafate 1 gr po tid. 14. Patient is a no code. 15. Consult for inpatient rehabilitation has been made. Impression and plan of care have been directed as dictated by the signing physician. Halley Guevara, nurse practitioner acting as scribe for signing physician. Objective - Vital Signs Vital signs: Vital Signs Temp 97.5 F L 06/24/23 09:04 Pulse 73 06/24/23 09:04 Resp 18 06/24/23 09:05 BP 160/86 06/24/23 09:04 Pulse Ox 93 L 06/24/23 09:04 FiO2 Intake & Output 06/23/23 06/24/23 06/24/23 18:59 06:59 18:59 Intake Total 236 420 Output Total 1850 700 Balance 236 -1850 -280 Weight 77.111 kg 79.6 kg Intake: Oral 236 420 Output: Urine 1850 700 Other: Voiding Method Urinal Urinal Urinal # Voids 1 # Bowel Movements 2 1 - Labs CBC & Chem 7: 06/25/23 08:27 06/25/23 08:27 Labs: Abnormal Lab Results - Last 24 Hours (Table) 06/24/23 06/24/23 06/24/23 Range/Units 06:18 06:35 06:56 RBC (4.30-5.90) m/uL Hgb (13.0-17.5) gm/dL Hct (39.0-53.0) % MCH (25.0-35.0) pg MCHC (31.0-37.0) g/dL RDW (11.5-15.5) % Lymphocytes # (1.0-4.8) k/uL Potassium (3.5-5.1) mmol/L BUN (9-20) mg/dL Creatinine (0.66-1.25) mg/dL Glucose (74-99) mg/dL POC Glucose (mg/dL) 58 L 66 L 111 H (70-110) mg/dL Calcium (8.4-10.2) mg/dL Total Protein (6.3-8.2) g/dL Albumin (3.5-5.0) g/dL 06/24/23 06/24/23 06/24/23 Range/Units 08:29 08:29 11:35 RBC 3.91 L (4.30-5.90) m/uL Hgb 9.3 L (13.0-17.5) gm/dL Hct 32.5 L (39.0-53.0) % MCH 23.7 L (25.0-35.0) pg MCHC 28.5 L (31.0-37.0) g/dL RDW 18.9 H (11.5-15.5) % Lymphocytes # 0.6 L (1.0-4.8) k/uL Potassium 3.3 L (3.5-5.1) mmol/L BUN 37 H (9-20) mg/dL Creatinine 1.44 H (0.66-1.25) mg/dL Glucose 124 H (74-99) mg/dL POC Glucose (mg/dL) 133 H (70-110) mg/dL Calcium 8.0 L (8.4-10.2) mg/dL Total Protein 6.2 L (6.3-8.2) g/dL Albumin 3.2 L (3.5-5.0) g/dL
[2023-06-24 19:55] LABS: Glucose,Whole Blood 104 mg/dL (70-110)
--- NOTE | 2023-06-24 21:12 | P.CON ---
Consult Note - . Consult date: 06/24/23 Assessment/Plan:: HISTORY OF PRESENT ILLNESS: 58 y/o male who presented to [facility] ED on 06/22/2023 due to right > left sided weakness. PMH CAD s/p CABG in 2006 and stent in 2015, hypertension, hyperlipidemia, ischemic cardiomyopathy, paroxysmal atrial fibrillation, previously on Eliquis, diabetes mellitus type 2 with diabetic polyneuropathy, asthma, obstructive sleep apnea on CPAP and chronic low back pain which is the reason he is on disability. He was recently hospitalized at [facility] between 06/05/2023 and discharged 06/15/2023 after he was admitted for GI bleed due to esophageal ulcer. A couple days after this hospitalization he came back to the hospital s/p fall at a grocery store resulting in a facial laceration requiring sutures. The fall occurred due to dizziness. He had CT scan of the brain that showed right occipital infarct, was given ASA 325 mg in the ER and CXR that showed cardiomegaly. Labs revealed stable anemia at 9.1, elevated BUN and creatinine. Patient was restarted on Eliquis 5 mg po bid and ASA 81 mg po daily. Neurology consultation was obtained along with cardiology consult, PT/O and speech therapy. MRI brain on 06/24/2023 revealed an acute left pontine ischemic infarction. He lives alone in a 1 with 1 AMANDA. He is independent with basic and advanced ADLs. He drives. He uses no DME. REVIEW OF SYSTEMS: Constitutional: No fever, no chills, no night sweats. +Fatigue. +Weakness. HEENT: No headache. No blurred vision or double vision, no loss of vision. No loss of hearing, no ringing in the ears, no dizziness. Lungs: No shortness of breath, no cough, no wheezing. Cardiovascular: No chest pain, positive for lower extremity edema. Abdominal: No abdominal pain, no nausea, vomiting. Genitourinary: No dysuria, increased frequency, urgency. Musculoskeletal: +Chronic low back pain. +Right sided weakness. Neurologic: No change in mentation. Unsteadiness. Psychiatric: +depression. No anxiety. PAST SURGICAL HISTORY: CABG with MAE to LAD, SVG to PDA him a SVG to OM 1, radial artery to OM 2, SVG to OM 3. Left heart catheterization with PCI of the SVG to the RCA 2015. Spinal fusion L4-L5 Bilateral inguinal hernia repair. Fasciotomy to the left lower extremity. Fasciotomy to the left upper extremity. [facility] 04/10/2022 SOCIAL HISTORY: Patient is a lifelong nonsmoker, he denies any alcohol ingestion he denies any drug use or abuse. FAMILY HISTORY: Father at age of 60 from COPD he also has history of CAD post HI, mother at age of 80 fortunately history of diabetes mellitus type 2, she'll also have history of chronic kidney disease, patient has one sister with rheumatoid arthritis as well as hyperlipidemia and one brother no major medical problems. PHYSICAL EXAMINATION: General: Male, lying supine in bed, appears his stated age. HEENT: +Right facial droop. Hearing intact. Healed forehead laceration. Neck: Supple. Chest: NLB on RA. Heart: No cardiac distress. Abdomen: Soft, nontender, nondistended. Extremities: There is 1+ edema in bilateral LEs. No calf tenderness bilaterally. Neurologic examination: Patient is awake alert and oriented x 3, CN II-XII grossly intact. +RUE dysmetria. +Coordination deficit with HTS on the right. 5/5 strength throughout LUE and LLE. 4/5 strength throughout RUE and RLE, predominantly weak in the right tricep. Psych: Depressed. ASSESSMENT AND PLAN: 1. Right hemiparesis due to acute left pontine ischemic infarction -PT/OT/CHUCK BONER -DVT prophylaxis per primary and cardiology -Neurology following 2. IVONE 3. GIB -Monitor H&H # Comorbidities: atrial fibrillation, CAD s/p CABG and stent, HTN, DM type II with PPN, hyperlipidemia, GERHARD Discharge plan: IPR when medically stable. Eyal Mcginnis D.O.
[2023-06-25 05:44] LABS: Glucose,Whole Blood 147 mg/dL (70-110)
[2023-06-25 09:38] LABS: Anisocytosis Slight; HCT 31.2 % (39.0-53.0); HGB 8.9 gm/dL (13.0-17.5); Hypochromasia Marked; MCH 23.9 pg (25.0-35.0); MCHC 28.4 g/dL (31.0-37.0); MCV 84.1 fL (80.0-100.0); Mean Platelet Volume 9.3; Platelet Count 184 k/uL (150-450); Poikilocytosis Moderate; RBC 3.71 m/uL (4.30-5.90); RDW 18.8 % (11.5-15.5); WBC 4.9 k/uL (3.8-10.6)
[2023-06-25 10:06] LABS: African American GFR (CKD) 57 (>60 ml/min/1.73 sqM); Anion Gap 9 mmol/L; Blood Urea Nitrogen 30 mg/dL (9-20); Calcium 8.2 mg/dL (8.4-10.2); Carbon Dioxide 27 mmol/L (22-30); Chloride 107 mmol/L (98-107); Glucose 194 mg/dL (74-99); Non-African American GFR(CKD) 49 (>60 ml/min/1.73 sqM); Potassium 3.7 mmol/L (3.5-5.1); Sodium 143 mmol/L (137-145)
--- NOTE | 2023-06-25 10:59 | P.PN ---
Subjective Progress Note Date: 06/24/23 Patient was seen for a follow-up. Patient states that he is slightly feeling better. No new concerns. Objective - Vital Signs Vital signs: Vital Signs Temp 97.5 F L 06/24/23 16:31 Pulse 61 06/24/23 16:31 Resp 18 06/24/23 16:31 BP 149/82 06/24/23 16:31 Pulse Ox 97 06/24/23 16:31 FiO2 Intake & Output 06/23/23 06/24/23 06/24/23 18:59 06:59 18:59 Intake Total 236 660 Output Total 1850 1475 Balance 236 -1850 -815 Weight 77.111 kg 79.6 kg Intake: Oral 236 660 Output: Urine 1850 1475 Other: Voiding Method Urinal Urinal Urinal # Voids 1 # Bowel Movements 2 1 - Exam Patient is laying comfortably in the bed. Continues to have mildly dysarthric speech, right facial weakness and right-sided weakness. - Labs CBC & Chem 7: 06/25/23 08:27 06/25/23 08:27 Labs: Abnormal Lab Results - Last 24 Hours (Table) 06/24/23 06/24/23 06/24/23 Range/Units 06:18 06:35 06:56 RBC (4.30-5.90) m/uL Hgb (13.0-17.5) gm/dL Hct (39.0-53.0) % MCH (25.0-35.0) pg MCHC (31.0-37.0) g/dL RDW (11.5-15.5) % Lymphocytes # (1.0-4.8) k/uL Potassium (3.5-5.1) mmol/L BUN (9-20) mg/dL Creatinine (0.66-1.25) mg/dL Glucose (74-99) mg/dL POC Glucose (mg/dL) 58 L 66 L 111 H (70-110) mg/dL Calcium (8.4-10.2) mg/dL Total Protein (6.3-8.2) g/dL Albumin (3.5-5.0) g/dL HDL Cholesterol (40.00-60.00) mg/dL 06/24/23 06/24/23 06/24/23 Range/Units 08:29 08:29 08:29 RBC 3.91 L (4.30-5.90) m/uL Hgb 9.3 L (13.0-17.5) gm/dL Hct 32.5 L (39.0-53.0) % MCH 23.7 L (25.0-35.0) pg MCHC 28.5 L (31.0-37.0) g/dL RDW 18.9 H (11.5-15.5) % Lymphocytes # 0.6 L (1.0-4.8) k/uL Potassium 3.3 L (3.5-5.1) mmol/L BUN 37 H (9-20) mg/dL Creatinine 1.44 H (0.66-1.25) mg/dL Glucose 124 H (74-99) mg/dL POC Glucose (mg/dL) (70-110) mg/dL Calcium 8.0 L (8.4-10.2) mg/dL Total Protein 6.2 L (6.3-8.2) g/dL Albumin 3.2 L (3.5-5.0) g/dL HDL Cholesterol 25.60 L (40.00-60.00) mg/dL 06/24/23 Range/Units 11:35 RBC (4.30-5.90) m/uL Hgb (13.0-17.5) gm/dL Hct (39.0-53.0) % MCH (25.0-35.0) pg MCHC (31.0-37.0) g/dL RDW (11.5-15.5) % Lymphocytes # (1.0-4.8) k/uL Potassium (3.5-5.1) mmol/L BUN (9-20) mg/dL Creatinine (0.66-1.25) mg/dL Glucose (74-99) mg/dL POC Glucose (mg/dL) 133 H (70-110) mg/dL Calcium (8.4-10.2) mg/dL Total Protein (6.3-8.2) g/dL Albumin (3.5-5.0) g/dL HDL Cholesterol (40.00-60.00) mg/dL Assessment and Plan Assessment: * Acute ischemic stroke, involving the left chelsey, manifesting with right hemiparesis, dysarthria. * Atrial fibrillation, stopped anticoagulation 2 months ago because of dental work and also recent GI bleed. * Diabetes * Hypertension * Chronic anemia * Chronic renal insufficiency, mild to moderate Plan: MRI of the brain without contrast, revealed acute/subacute CVA involving the left chelsey. No abnormal postcontrast enhancement. Nonspecific white matter changes, likely related to small vessel ischemic disease. I personally reviewed MRI agree with the findings. 2-D echo performed recently on 06/07/2023 showed moderate LV systolic dysfunction with EF of 40 to 45%. Septal thickness. Moderate to severe pulmonary hypertension. Moderate posteriorly directed mitral regurgitation and severe TR. Moderately increased left atrial diameter. No need to repeat. Carotid Doppler, revealed no significant stenosis of the left ICA by Doppler ultrasound. Occlusion of the right ICA. Antegrade flow in both vertebral arteries. Fasting a.m. lipid panel with cholesterol 101, LDL 57, HDL 25 and triglycerides 90. Continue Lipitor 80 mg daily. Hemoglobin A1c 9.3 on 06/06/2023. Recommend optimize control of diabetes to target A1c <7.0. B12 1207, folate 12.0. TSH normal. Permissive hypertension for next 24-48 hours Patient has been resumed on Eliquis 5 mg twice daily, also on aspirin 81 mg daily for right carotid occlusion. Neuro checks every 4 hours. Telemetry monitoring showing atrial fibrillation with heart rate of 61. PT, OT, speech therapy DVT prophylaxis: Patient on Eliquis. Agree with consultation with physical medicine and rehabilitation.
[2023-06-25 12:03] LABS: Glucose,Whole Blood 331 mg/dL (70-110)
--- NOTE | 2023-06-25 14:20 | P.PN ---
Subjective HISTORY OF PRESENT ILLNESS: This is a 58-year-old male with a past medical history significant for coronary artery disease with previous CABG, persistent atrial fibrillation, ischemic cardiomyopathy, hypertension, hyperlipidemia, diabetes and anemia. Patient follows in the office with Dr. Ga. We have been asked to see the patient in consultation for CVA/atrial fibrillation. Patient examined at the bedside in the emergency room. Patient presented to the hospital with a chief complaint of weakness. He reports generalized weakness but worse on the right side. He states he has been having difficulty with gross motor movement with his right hand. He also reports that he was in [employer] about a week ago and fell. He is unsure if he lost consciousness at that time. Patient was hospitalized earlier this month secondary to syncope and anemia. He underwent EGD and colonoscopy with Dr. Salgado on 06/09/2023. Colonoscopy revealed internal hemorrhoids, no colitis, and melanotic stool consistent with upper GI bleed. EGD revealed acute esophageal ulceration measuring 6 mm at GE junction with bleeding, erosive esophagitis, and acute on chronic gastritis. The patient was placed on Protonix and Carafate at that time. Patient states he was previously taking Eliquis although this has been held recently secondary to his acute anemia and esophageal ulceration. He reports that he went to see Dr. Low yesterday and he was started on a new diuretic. Patient currently denies chest pain or pressure. At the time of examination, he denies shortness of breath. He does report increased swelling to his lower extremities. DIAGNOSTICS: - EKG reveals atrial fibrillation with controlled ventricular rate. T waves in inferior leads and V5V6 - Chest xray stable cardiomegaly without evidence of acute process - CT brain: Negative for acute process. Redemonstrated remote left occipital infarct. - Carotid Doppler: No significant stenosis of left ICA. Occlusion of right ICA noted. - Laboratory data: WBC 4.3. Hemoglobin 8.2. Platelet count 178. Sodium 140. Potassium 3.2. BUN 53. Creatinine 1.59. Troponin negative x 1. proBNP 3980. - Current home cardiac medications include Lipitor 80 mg daily, Zetia 10 mg daily, Lasix 40 mg twice a day, losartan 100 mg daily, amlodipine 5 mg daily, carvedilol 25 mg twice - Most recent echocardiogram obtained on 06/06/2023 revealed ejection fraction 40 to 45%, no obvious regional wall motion normalities, severe pulmonary hypertension, moderate posteriorly directed mitral regurgitation and severe tricuspid regurgitation - Cardiac catheterization performed 04/10/2022 revealed severe triple-vessel disease. Patent stent segment in the ramus intermedius and proximal left circumflex. Patent MAE to LAD. Patent SVG to OM. Chronically occluded SVG to the RCA and to the diagonal branch. Recommendations at the time was for medical management and restore sinus rhythm. - Most recent electrocardioversion 04/2019 for atrial fibrillation - Exercise stress test 11/2019 was nondiagnostic due to baseline EKG abnormalities 06/24/2023 Patient examined this morning at the bedside. Patient denies chest pain or pressure. Denies SOB. He continues to have lower extremity edema but improved from yesterday. Kidney function remains stable. Creatinine 1.44. Vital signs are stable. 06/25/2023 Patient examined this morning at bedside. Patient denies chest pain or pressure. He reports improvement in his shortness of breath. He continues to have lower extremity edema. He remains on IV Lasix. Patient's blood pressure running slightly on the higher side. PHYSICAL EXAM: VITAL SIGNS: Reviewed. GENERAL: Well-developed in no acute distress. HEENT: Head is normocephalic. Pupils are equal, round. Sclerae anicteric. Mucous membranes of the mouth are moist. Neck supple. No JVD or thyromegaly LUNGS: Respirations even and unlabored. Lungs essentially clear to auscultation bilaterally. HEART: Irregular rate and rhythm. S1 and S2 heard. Systolic murmur noted. ABDOMEN: Soft. Nondistended. Nontender. EXTREMITIES: Normal range of motion. No clubbing or cyanosis. Peripheral pulses intact. 2+ bilateral pitting lower extremity edema NEUROLOGIC: Awake and alert. Oriented x 3. ASSESSMENT: Generalized weakness, right greater than left, rule out TIA/CVA Persistent atrial fibrillation with controlled ventricular rate, not anticoagulated on an outpatient basis due to recent anemia History of anemia, status post EGD and colonoscopy, revealing acute esophageal ulceration with bleeding, 06/09/2023 Acute on chronic heart failure with decreased EF, 40 to 45% Remote left occipital infarct, per CT brain Right ICA occlusion Coronary artery disease with previous CABG (62006) and subsequent stenting Ischemic cardiomyopathy, 40 to 45% Hypertension Hyperlipidemia Diabetes Valvular heart disease including moderate MR and severe TR Severe pulmonary hypertension PLAN: No need to repeat echocardiogram as this was performed earlier this month Continue IV lasix for an additional 24 hours. Anticipate transition to oral diuretics tomorrow Daily weights, accurate I&O and monitoring of kidney function Increase hydralazine to 50 mg twice a day for optimal blood pressure control Consider Watchman device in the future if patient continues to have issues with anticoagulation and anemia Further recommendations pending patient course Nurse practitioner note has been reviewed by physician. Signing provider agrees with the documented findings, assessment, and plan of care documented by PLANNING RN as a scribe. Objective - Vital Signs Vital signs: Vital Signs Temp 98.1 F 06/25/23 08:00 Pulse 65 06/25/23 12:00 Resp 22 06/25/23 08:00 BP 154/78 06/25/23 12:00 Pulse Ox 95 06/25/23 12:00 FiO2 Intake & Output 06/24/23 06/25/23 06/25/23 18:59 06:59 18:59 Intake Total 900 358 Output Total 1475 1450 700 Balance -075 -0940 -342 Intake: Oral 900 358 Output: Urine 1475 1450 700 Other: Voiding Method Urinal Urinal Urinal # Voids 1 2 # Bowel Movements 1 1 - Labs CBC & Chem 7: 06/25/23 08:27 06/25/23 08:27 Labs: Abnormal Lab Results - Last 24 Hours (Table) 06/24/23 06/25/23 06/25/23 Range/Units 08:29 05:43 08:27 RBC 3.71 L (4.30-5.90) m/uL Hgb 8.9 L (13.0-17.5) gm/dL Hct 31.2 L (39.0-53.0) % MCH 23.9 L (25.0-35.0) pg MCHC 28.4 L (31.0-37.0) g/dL RDW 18.8 H (11.5-15.5) % BUN (9-20) mg/dL Creatinine (0.66-1.25) mg/dL Glucose (74-99) mg/dL POC Glucose (mg/dL) 147 H (70-110) mg/dL Calcium (8.4-10.2) mg/dL HDL Cholesterol 25.60 L (40.00-60.00) mg/dL 06/25/23 06/25/23 Range/Units 08:27 11:54 RBC (4.30-5.90) m/uL Hgb (13.0-17.5) gm/dL Hct (39.0-53.0) % MCH (25.0-35.0) pg MCHC (31.0-37.0) g/dL RDW (11.5-15.5) % BUN 30 H (9-20) mg/dL Creatinine 1.52 H (0.66-1.25) mg/dL Glucose 194 H (74-99) mg/dL POC Glucose (mg/dL) 331 H (70-110) mg/dL Calcium 8.2 L (8.4-10.2) mg/dL HDL Cholesterol (40.00-60.00) mg/dL
[2023-06-25 16:08] LABS: Glucose,Whole Blood 133 mg/dL (70-110)
--- NOTE | 2023-06-25 16:37 | P.PN ---
Subjective Progress Note Date: 06/25/23 HISTORY OF PRESENT ILLNESS: This is a 58-year-old male patient of rosita and Dr. Ga with past medical history of coronary artery disease status post 6 vessel CABG 2006 with MAE to LAD, saphenous venous graft to the PDA, saphenous venous graft to the obtuse marginal one, radial artery to the obtuse marginal branch 2 and saphenous venous graft to the obtuse marginal 3 followed by heart catheterization with PCI and stent of the saphenous venous graft to the RCA in 2015 at which time he pres ented with non-ST elevated myocardial infarction. Most recent cardiac catheterization was performed on 04/10/2022 which revealed severe triple-vessel coronary artery disease with a patent ramus intermediate, patent SVG to the OM, patent MAE to the LAD, and occluded saphenous vein graft to the RCA which is chronic from before. Medical therapy was advised at that time. History of hypertension, hypertensive cardiovascular disease with left ventricular hypertrophy, hyperlipidemia, ischemic cardiomyopathy, paroxysmal atrial fibrillation, currently on Eliquis, diabetes mellitus type 2 with diabetic polyneuropathy, hyperlipidemia, asthma, obstructive sleep apnea on CPAP, chronic low back pain, DVT in the past, patient was recently hospitalized at [facility] between 06/05/2023 and discharged 06/15/2023 after he was admitted for GI bleed due to esophageal ulcer. Patient had EGD and incomplete colonoscopy due to poor prep at that time. He was seen in the ER on 04/20/2023 for weakness. I s aw him 06/21/2023 and he was supposed to go back on Eliquis 5 mg po bid. Now, patient showed up to the ER with weakness, right sided facial droop, and right- sided drift. He had CT scan of the brain that showed right occipital infarct, was given ASA 325 mg in the ER and CXR that showed cardiomegaly. Labs revealed stable anemia at 9.1, elevated BUN and creatinine. Patient was restarted on Eliquis 5 mg po bid and ASA 81 mg po daily. Neurology consultation was obtained along with cardiology consult, PT/O and speech therapy. We will consult social sciences chair for discharge planning. 06/23: Patient is sitting up in bed. He looks much better today, right-sided weakness slightly improved, right-sided facial droop remains. MRI brain reveals acute/subacute CVA involving the left chelsey. Continue Eliquis 5 mg PO twice daily and aspirin 81 mg PO daily, Lipitor 80 mg PO daily, and Zetia 10 mg PO daily. Hemoglobin has improved to 9.3, potassium 3.3 continue potassium chloride 20 mEq twice daily. Consultation for inpatient rehab has been placed, discharge plan pending rehabilitation recommendation. Patient remains a no code at this time. 06/24: Patient is sitting up on the edge of the bed. Continue Eliquis 5 mg p.o. twice daily, aspirin 81 mg p.o. daily, Lipitor 80 mg p.o. daily, and Zetia 10 mg p.o. daily. Continue Lasix 40 mg IV push every 12 hours. Patient has been accepted to the rehabilitation unit at [facility] pending authorization. Patient likely to be discharged on Wednesday. Patient is a no code. REVIEW OF SYSTEMS: Constitutional: No documented fever, no chills, no night sweats. No weight change. Positive for weakness, positive for fatigue, no lethargy. No daytime sleepiness. HEENT: No headache. No blurred vision or double vision, no loss of vision. No loss of Hearing, no ringing in the ears, no dizziness. No nasal drainage or congestion. No epistaxis. No sore throat. Lungs: positive for shortness of breath, no cough, or sputum production. no wheezing. Reports dyspnea with activity. Cardiovascular: no chest pain, positive for lower extremity edema. No palpitations. No paroxysmal nocturnal dyspnea. No orthopnea. positive for lightheadedness or dizziness. No syncopal episodes. Abdominal: Reports no abdominal pain. no nausea, vomiting. No diarrhea. No constipation. No bloody or tarry stools reports loss of appetite. Genitourinary: No dysuria, increased frequency, urgency. No urinary retention. Musculoskeletal: No myalgias. positive for muscle weakness, no gait dysfunction, frequent falls. No back pain. No neck pain. Integumentary: healed forehead wound, no lesions. No rash or pruritus. No unusual bruising. No change in hair or nails. Neurologic: No aphasia. Minimal facial droop. No change in mentation. No head i njury. No headache, minimal drift. Psychiatric: positive for depression. No anxiety. No mood swings. Endocrine: abnormal blood sugars. No weight change. PHYSICAL EXAMINATION: General: 58-year-old male laying down in no distress. HEENT: Head is atraumatic, normocephalic, pupils were equal round reactive to light and recommendation, extraocular muscle movement were intact, sclera nonicteric, conjunctivae were pale, mucous membranes of the mouth are somewhat dry. Neck: Supple, no JVP, normal carotid upstroke bilaterally, no lymphadenopathy. Chest: Decreased breath sounds at the bases, few rhonchi no expirratory wheezes,, no chest wall tenderness, no intercostal retractions. Heart: First heart sound is normal, second heart sounds normal, irregularly irregular, there is systolic ejection murmur 2/6 located in the left sternal border. Abdomen: Soft, nontender, nondistended, positive bowel sounds, there is no hepatosplenomegaly Extremities: There is +2 edema no calf tenderness DP +1 bilaterally. Neurologic examination: Patient is awake alert and oriented X 3, cranial nerves II-12 appear grossly intact, muscle power were 4 out of 5 in upper extremities and 4 out of 5 in bilateral lower extremities, deep tendon reflexes normal bilaterally. Minimal right facial droop, and right leg weakness. ASSESSMENT AND PLAN: 1. Acute ischemic CVA. Continue Eliquis 5 mg PO twice, daily aspirin 81 mg daily, continue Lipitor 80 mg PO daily, and Zetia 10 mg PO daily. Patient just had an echocardiogram last month and it did show evidence of moderate LV dysfunction with moderate MR and severe pulmonary hypertension. We will consult PT/OT/ST and cardiology as well. MRI brain with and without OLIMPIA reveals acute subacute CVA left chelsey. Consultation has been made for inpatient rehab. 2. Acute kidney injury on CKD3a. Patient is on Lasix 40 mg IV push every 12 hours, along with potassium supplement. 3. Hypertension and hypertensive cardiovascular disease. Continue the patient on losartan 100 mg orally once every day, continue patient on Carvedilol 25 mg orally twice every day, continue Amlodipine 5 mg po daily and monitor BP very closely. 4. Diabetes mellitus type 2. Restart the patient on Lantus 21 units at bedtime along with a sliding scale insulin, we will continue with Humalog 7 units before each meal, discontinue Metformin and we will start Farxiga 5 mg po daily. 5. Coronary artery disease status post CABG 6 as well as PCI in the past. Continue patient on ASA 81 mg once every day, Carvedilol 25 mg orally twice every day, continue patient on atorvastatin 80 mg orally once every day, continue Zetia 10 mg orally once every day. 6. Hyperlipidemia. Continue patient on atorvastatin 80 mg once every day, continue Zetia 10 mg orally once every day, monitor lipid panel, keep LDL 55-70. 7. Diabetic polyneuropathy. Continue patient on gabapentin 900 mg orally 2 times every day. 8. Obstructive sleep apnea. Patient does have a CPAP at home. 9. Chronic systolic heart failure. Continue with Torsemide 40 mg po daily, Carvedilol 25 mg po bid and add Farxiga 5 mg po daily. 10. Paroxysmal atrial fibrillation . Continue patient on Coreg 25 mg orally twice every day, Eliquis 5 mg po bid. 11. DVT prophylaxis. Continue Eliquis 5 mg orally twice every day. 12. GI prophylaxis. Continue Protonix 40 mg orally bid 13. Chronic blood loss anemia due to esophageal ulcer post EGD last month. We will continue with iron 325 mg po bid, protonix 40 mg po bid and Carafate 1 gr po tid. 14. Patient is a no code. 15. Discharge to inpatient rehab likely Wednesday. Impression and plan of care have been directed as dictated by the signing physi princess. Halley Guevara, nurse practitioner acting as scribe for signing physician. Objective - Vital Signs Vital signs: Vital Signs Temp 98.1 F 06/25/23 08:00 Pulse 65 06/25/23 14:00 Resp 22 06/25/23 14:00 BP 154/78 06/25/23 12:00 Pulse Ox 95 06/25/23 12:00 FiO2 Intake & Output 06/24/23 06/25/23 06/25/23 18:59 06:59 18:59 Intake Total 900 358 Output Total 1475 1450 700 Balance -575 -1450 -342 Intake: Oral 900 358 Output: Urine 1475 1450 700 Other: Voiding Method Urinal Urinal Urinal # Voids 1 2 # Bowel Movements 1 1 - Labs CBC & Chem 7: 06/25/23 08:27 06/25/23 08:27 Labs: Abnormal Lab Results - Last 24 Hours (Table) 06/25/23 06/25/23 06/25/23 Range/Units 05:43 08:27 08:27 RBC 3.71 L (4.30-5.90) m/uL Hgb 8.9 L (13.0-17.5) gm/dL Hct 31.2 L (39.0-53.0) % MCH 23.9 L (25.0-35.0) pg MCHC 28.4 L (31.0-37.0) g/dL RDW 18.8 H (11.5-15.5) % BUN 30 H (9-20) mg/dL Creatinine 1.52 H (0.66-1.25) mg/dL Glucose 194 H (74-99) mg/dL POC Glucose (mg/dL) 147 H (70-110) mg/dL Calcium 8.2 L (8.4-10.2) mg/dL 06/25/23 06/25/23 Range/Units 11:54 16:06 RBC (4.30-5.90) m/uL Hgb (13.0-17.5) gm/dL Hct (39.0-53.0) % MCH (25.0-35.0) pg MCHC (31.0-37.0) g/dL RDW (11.5-15.5) % BUN (9-20) mg/dL Creatinine (0.66-1.25) mg/dL Glucose (74-99) mg/dL POC Glucose (mg/dL) 331 H 133 H (70-110) mg/dL Calcium (8.4-10.2) mg/dL
[2023-06-25 20:02] LABS: Glucose,Whole Blood 135 mg/dL (70-110)
[2023-06-25] MEDS: hydrALAZINE HCL 50 MG TAB PO SCH (21:16)
[2023-06-26 06:46] LABS: Anisocytosis Slight; Basophils % (A) 1 %; Eosinophils # (A) 0.2 k/uL (0-0.7); Eosinophils % (A) 4 %; HCT 32.1 % (39.0-53.0); HGB 9.4 gm/dL (13.0-17.5); Hypochromasia Marked; Lymphocytes # (A) 0.8 k/uL (1.0-4.8); Lymphocytes % (A) 18 %; MCH 23.8 pg (25.0-35.0); MCHC 29.2 g/dL (31.0-37.0); MCV 81.5 fL (80.0-100.0); Mean Platelet Volume 7.7; Microcytosis Slight; Monocytes # (A) 0.4 k/uL (0-1.0); Monocytes % (A) 9 %; Neutrophils # (A) 3.1 k/uL (1.3-7.7); Neutrophils % (A) 66 %; Platelet Count 216 k/uL (150-450); Poikilocytosis Slight; RBC 3.94 m/uL (4.30-5.90); RDW 19.1 % (11.5-15.5); WBC 4.6 k/uL (3.8-10.6)
[2023-06-26 07:03] LABS: African American GFR (CKD) 66 (>60 ml/min/1.73 sqM); Albumin 3.2 g/dL (3.5-5.0); Carbon Dioxide 27 mmol/L (22-30); Non-African American GFR(CKD) 57 (>60 ml/min/1.73 sqM); Total Protein 6.2 g/dL (6.3-8.2)
[2023-06-26 07:04] LABS: ALT 16 U/L (4-49); AST 17 U/L (17-59); Alkaline Phosphatase 57 U/L (38-126); Anion Gap 8 mmol/L; Blood Urea Nitrogen 25 mg/dL (9-20); Calcium 8.5 mg/dL (8.4-10.2); Chloride 109 mmol/L (98-107); Glucose 100 mg/dL (74-99); Potassium 3.5 mmol/L (3.5-5.1); Sodium 144 mmol/L (137-145); Total Bilirubin 0.9 mg/dL (0.2-1.3)
--- NOTE | 2023-06-26 10:01 | P.PN ---
Subjective Progress Note Date: 06/25/23 Patient was seen for a follow-up. Patient states that he is slightly feeling better. No new concerns. Objective - Vital Signs Vital signs: Vital Signs Temp 98.1 F 06/25/23 08:00 Pulse 54 L 06/25/23 16:00 Resp 22 06/25/23 14:00 BP 150/71 06/25/23 16:00 Pulse Ox 99 06/25/23 16:00 FiO2 Intake & Output 06/25/23 06/25/23 06/26/23 06:59 18:59 06:59 Intake Total 594 Output Total 1450 2400 Balance -1450 -1806 Intake: Oral 594 Output: Urine 1450 2400 Other: Voiding Method Urinal Urinal # Voids 2 # Bowel Movements 1 - Exam Patient is a late middle aged male, in no acute distress. Patient is alert awake oriented to time place and person. Speech is mildly dysarthric and language functions are normal. Patient can name and repeat very well. Attention, concentration and fund of knowledge is adequate. On cranial nerve examination, pupils are equal, round and reacting to light, visual alvares are full on confrontation, with no neglect on double simultaneous stimulation. Extraocular muscles are intact with no nystagmus. Patient has right facial weakness, central type. His tongue protrudes to the midline. Palatal elevation and sensation normal, hearing and shoulder shrug normal, facial sensation normal. On muscle strength testing, there is right pronator drift about 45 degree and the strength is (right/left) deltoid 5/5, biceps 5/5, triceps 5/5, court specialist 4+5-/5, hip flexion 4/5, ankle dorsiflexion 5/5. Deep tendon reflexes are symmetric 1-1+ in the biceps, brachioradialis, knees, absent ankles and plantars are probable upgoing bilaterally. Sensory to touch is equal with no neglect on double simultaneous stimulation. Cerebellar function showed mild to moderate ataxia for avvuxy-sk-nhry testing only on the right side. Mild ataxia for [id number] testing on either side. Tone and bulk of muscles normal. Gait deferred.. On general examination, there is no carotid bruit or murmur, S1-S2 audible. Chest is clear on consultation. Abdomen is soft nontender. No organomegaly, bowel sounds present. Patient is some mild to moderate peripheral edema. Skin is very dry. Some hyperpigmentation noted. - Labs CBC & Chem 7: 06/26/23 06:21 06/26/23 06:21 Labs: Abnormal Lab Results - Last 24 Hours (Table) 06/25/23 06/25/23 06/25/23 Range/Units 05:43 08:27 08:27 RBC 3.71 L (4.30-5.90) m/uL Hgb 8.9 L (13.0-17.5) gm/dL Hct 31.2 L (39.0-53.0) % MCH 23.9 L (25.0-35.0) pg MCHC 28.4 L (31.0-37.0) g/dL RDW 18.8 H (11.5-15.5) % BUN 30 H (9-20) mg/dL Creatinine 1.52 H (0.66-1.25) mg/dL Glucose 194 H (74-99) mg/dL POC Glucose (mg/dL) 147 H (70-110) mg/dL Calcium 8.2 L (8.4-10.2) mg/dL 06/25/23 06/25/23 06/25/23 Range/Units 11:54 16:06 20:01 RBC (4.30-5.90) m/uL Hgb (13.0-17.5) gm/dL Hct (39.0-53.0) % MCH (25.0-35.0) pg MCHC (31.0-37.0) g/dL RDW (11.5-15.5) % BUN (9-20) mg/dL Creatinine (0.66-1.25) mg/dL Glucose (74-99) mg/dL POC Glucose (mg/dL) 331 H 133 H 135 H (70-110) mg/dL Calcium (8.4-10.2) mg/dL Assessment and Plan Assessment: * Acute ischemic stroke, involving the left chelsey, manifesting with right hemiparesis, dysarthria. * Atrial fibrillation, stopped anticoagulation 2 months ago because of dental work and also recent GI bleed. * Diabetes * Hypertension * Chronic anemia * Chronic renal insufficiency, mild to moderate Plan: MRI of the brain without contrast, revealed acute/subacute CVA involving the left chelsey. No abnormal postcontrast enhancement. Nonspecific white matter changes, likely related to small vessel ischemic disease. I personally reviewed MRI agree with the findings. 2-D echo performed recently on 06/07/2023 showed moderate LV systolic dysfunction with EF of 40 to 45%. Septal thickness. Moderate to severe pulmonary hypertens ion. Moderate posteriorly directed mitral regurgitation and severe TR. Moderately increased left atrial diameter. No need to repeat. Carotid Doppler, revealed no significant stenosis of the left ICA by Doppler ultrasound. Occlusion of the right ICA. This is asymptomatic, as the CVA is in the pontine region. Antegrade flow in both vertebral arteries. Fasting a.m. lipid panel with cholesterol 101, LDL 57, HDL 25 and triglycerides 90. Continue Lipitor 80 mg daily. Hemoglobin A1c 9.3 on 06/06/2023. Recommend optimize control of diabetes to target A1c <7.0. B12 1207, folate 12.0. TSH normal. Permissive hypertension for next 24-48 hours Patient has been resumed on Eliquis 5 mg twice daily, also on aspirin 81 mg daily for right carotid occlusion. Neuro checks every 4 hours. Telemetry monitoring showing atrial fibrillation with heart rate of 61. PT, OT, speech therapy DVT prophylaxis: Patient on Eliquis. Patient accepted for inpatient rehab, pending insurance authorization.
[2023-06-26 11:45] LABS: Glucose,Whole Blood 297 mg/dL (70-110)
--- NOTE | 2023-06-26 12:37 | P.PN ---
Subjective Progress Note Date: 06/26/23 This is a 58-year-old male with a past medical history significant for coronary artery disease with previous CABG, persistent atrial fibrillation, ischemic cardiomyopathy, hypertension, hyperlipidemia, diabetes and anemia. Patient follows in the office with Dr. Ga. We have been asked to see the patient in consultation for CVA/atrial fibrillation. Patient examined at the bedside in the emergency room. Patient presented to the hospital with a chief complaint of weakness. He reports generalized weakness but worse on the right side. He states he has been having difficulty with gross motor movement with his right hand. He also reports that he was in [employer] about a week ago and fell. He is unsure if he lost consciousness at that time. Patient was hospitalized earlier this month secondary to syncope and anemia. He underwent EGD and colonoscopy with Dr. Salgado on 06/09/2023. Colonoscopy revealed internal hemorrhoids, no colitis, and melanotic stool consistent with upper GI bleed. EGD revealed acute esophageal ulceration measuring 6 mm at GE junction with bleeding, erosive esophagitis, and acute on chronic gastritis. The patient was placed on Protonix and Carafate at that time. Patient states he was previously taking Eliquis although this has been held recently secondary to his acute anemia and esophageal ulceration. He also had complaints of lower extremity edema and was placed on IV Lasix. MRI was completed and confirmed CVA. 06/26/2023 Patient was seen and examined resting comfortably in bed. His edema has improved. He does not feel that his strength has improved much. There is plans for him to go to rehab following discharge likely on Wednesday. Objective - Vital Signs Vital signs: Vital Signs Temp 98.6 F 06/26/23 06:45 Pulse 71 06/26/23 06:45 Resp 17 06/26/23 06:45 BP 166/89 06/26/23 06:45 Pulse Ox 95 06/26/23 06:45 FiO2 Intake & Output 06/25/23 06/26/23 06/26/23 18:59 06:59 18:59 Intake Total 594 Output Total 2400 1325 1800 Balance -0907 -2723 -6427 Weight 73.7 kg Intake: Oral 594 Output: Urine 2400 1325 1800 Other: Voiding Method Urinal Urinal # Bowel Movements 1 - Exam GENERAL: Well-developed in no acute distress. HEENT: Head is normocephalic. Pupils are equal, round. Sclerae anicteric. Mucous membranes of the mouth are moist. Neck supple. No JVD or thyromegaly LUNGS: Respirations even and unlabored. Lungs essentially clear to auscultation bilaterally. HEART: Irregular rate and rhythm. S1 and S2 heard. Systolic murmur noted. ABDOMEN: Soft. Nondistended. Nontender. EXTREMITIES: Normal range of motion. No clubbing or cyanosis. Peripheral pulses intact. 2+ bilateral pitting lower extremity edema NEUROLOGIC: Awake and alert. Oriented x 3. - Labs CBC & Chem 7: 06/26/23 06:21 06/26/23 06:21 Labs: Abnormal Lab Results - Last 24 Hours (Table) 06/25/23 06/25/23 06/26/23 Range/Units 16:06 20:01 06:21 RBC (4.30-5.90) m/uL Hgb (13.0-17.5) gm/dL Hct (39.0-53.0) % MCH (25.0-35.0) pg MCHC (31.0-37.0) g/dL RDW (11.5-15.5) % Lymphocytes # (1.0-4.8) k/uL Chloride 109 H (98-107) mmol/L BUN 25 H (9-20) mg/dL Creatinine 1.35 H (0.66-1.25) mg/dL Glucose 100 H (74-99) mg/dL POC Glucose (mg/dL) 133 H 135 H (70-110) mg/dL Total Protein 6.2 L (6.3-8.2) g/dL Albumin 3.2 L (3.5-5.0) g/dL 06/26/23 06/26/23 Range/Units 06:21 11:44 RBC 3.94 L (4.30-5.90) m/uL Hgb 9.4 L (13.0-17.5) gm/dL Hct 32.1 L (39.0-53.0) % MCH 23.8 L (25.0-35.0) pg MCHC 29.2 L (31.0-37.0) g/dL RDW 19.1 H (11.5-15.5) % Lymphocytes # 0.8 L (1.0-4.8) k/uL Chloride (98-107) mmol/L BUN (9-20) mg/dL Creatinine (0.66-1.25) mg/dL Glucose (74-99) mg/dL POC Glucose (mg/dL) 297 H (70-110) mg/dL Total Protein (6.3-8.2) g/dL Albumin (3.5-5.0) g/dL Assessment and Plan Assessment: Generalized weakness, right greater than left, secondary to CVA Persistent atrial fibrillation with controlled ventricular rate, not anticoagulated on an outpatient basis due to recent anemia History of anemia, status post EGD and colonoscopy, revealing acute esophageal ulceration with bleeding, 06/09/2023 Acute on chronic heart failure with decreased EF, 40 to 45% Remote left occipital infarct, per CT brain Right ICA occlusion Coronary artery disease with previous CABG (2006) and subsequent stenting Ischemic cardiomyopathy, 40 to 45% Hypertension Hyperlipidemia Diabetes Valvular heart disease including moderate MR and severe TR Severe pulmonary hypertension Plan: From cardiology's perspective medications were reviewed we will discontinue IV Lasix. We will transition the patient to Lasix 40 mg oral twice daily. We will continue to follow the patient and provide further recommendations accordingly anticipate discharge to rehab on Wednesday. LABORER DEMOLITION note has been reviewed, I agree with a documented findings and plan of care. Patient was seen and examined.
[2023-06-26 17:06] LABS: Glucose,Whole Blood 136 mg/dL (70-110)
[2023-06-26] MEDS: FUROSEMIDE 40 MG TAB PO SCH (17:17)
[2023-06-26] MEDS: hydrALAZINE HCL 50 MG TAB PO SCH (17:18)
[2023-06-26 21:00] LABS: Glucose,Whole Blood 196 mg/dL (70-110)
[2023-06-27 06:29] LABS: Glucose,Whole Blood 109 mg/dL (70-110)
--- NOTE | 2023-06-27 09:03 | P.PN ---
Subjective Progress Note Date: 06/27/23 HISTORY OF PRESENT ILLNESS: This is a 58-year-old male patient of rosita and Dr. Ga with past medical history of coronary artery disease status post 6 vessel CABG 2006 with MAE to LAD, saphenous venous graft to the PDA, saphenous venous graft to the obtuse marginal one, radial artery to the obtuse marginal branch 2 and saphenous venous graft to the obtuse marginal 3 followed by heart catheterization with PCI and stent of the saphenous venous graft to the RCA in 2015 at which time he pres ented with non-ST elevated myocardial infarction. Most recent cardiac catheterization was performed on 04/10/2022 which revealed severe triple-vessel coronary artery disease with a patent ramus intermediate, patent SVG to the OM, patent MAE to the LAD, and occluded saphenous vein graft to the RCA which is chronic from before. Medical therapy was advised at that time. History of hypertension, hypertensive cardiovascular disease with left ventricular hypertrophy, hyperlipidemia, ischemic cardiomyopathy, paroxysmal atrial fibrillation, currently on Eliquis, diabetes mellitus type 2 with diabetic polyneuropathy, hyperlipidemia, asthma, obstructive sleep apnea on CPAP, chronic low back pain, DVT in the past, patient was recently hospitalized at [facility] between 06/05/2023 and discharged 06/15/2023 after he was admitted for GI bleed due to esophageal ulcer. Patient had EGD and incomplete colonoscopy due to poor prep at that time. He was seen in the ER on 04/20/2023 for weakness. I s aw him 06/21/2023 and he was supposed to go back on Eliquis 5 mg po bid. Now, patient showed up to the ER with weakness, right sided facial droop, and right- sided drift. He had CT scan of the brain that showed right occipital infarct, was given ASA 325 mg in the ER and CXR that showed cardiomegaly. Labs revealed stable anemia at 9.1, elevated BUN and creatinine. Patient was restarted on Eliquis 5 mg po bid and ASA 81 mg po daily. Neurology consultation was obtained along with cardiology consult, PT/O and speech therapy. We will consult social work associate for discharge planning. 06/23: Patient is sitting up in bed. He looks much better today, right-sided weakness slightly improved, right-sided facial droop remains. MRI brain reveals acute/subacute CVA involving the left chelsey. Continue Eliquis 5 mg PO twice daily and aspirin 81 mg PO daily, Lipitor 80 mg PO daily, and Zetia 10 mg PO daily. Hemoglobin has improved to 9.3, potassium 3.3 continue potassium chloride 20 mEq twice daily. Consultation for inpatient rehab has been placed, discharge plan pending rehabilitation recommendation. Patient remains a no code at this time. 06/24: Patient is sitting up on the edge of the bed. Continue Eliquis 5 mg p.o. twice daily, aspirin 81 mg p.o. daily, Lipitor 80 mg p.o. daily, and Zetia 10 mg p.o. daily. Continue Lasix 40 mg IV push every 12 hours. Patient has been accepted to the rehabilitation unit at [facility] pending authorization. Patient likely to be discharged on Wednesday. Patient is a no code. 06/25: Patient is sitting up in bed he is feeling a bit better today, he denies any chest pain, or any shortness of breath, he continues to be somewhat weaker in the right upper extremity and right lower extremity, his slurred speech is better today, he denies any difficulty in swallowing at this time, he seems to be tolerating diet very well, he continues to work with speech therapy physical therapy and Occupational Therapy, we are waiting for the final prior author ization for the patient to be transferred to inpatient rehabilitation at [facility] he was seen and evaluated by physical therapy and rehabilitative medicine at [facility]. 06/26: Patient is sitting up in bed eating his breakfast, he is in better spirits today, he denies any chest pain, shortness of breath, his blood glucose level in the morning was 109, he denies any abdominal pain, he is going to the bathroom okay, he continues to work with physical therapy, he continues to be a bit weak in the right upper extremity, he will continue to work with physical therapy occupational therapy speech therapy, and the plan is to transfer the patient to [facility] tomorrow morning for physical therapy and rehabilitation per REVIEW OF SYSTEMS: Constitutional: No documented fever, no chills, no night sweats. No weight change. Positive for weakness, positive for fatigue, no lethargy. No daytime sleepiness. HEENT: No headache. No blurred vision or double vision, no loss of vision. No loss of Hearing, no ringing in the ears, no dizziness. No nasal drainage or congestion. No epistaxis. No sore throat. Minimal slurred speech. Lungs: positive for shortness of breath, no cough, or sputum production. no wheezing. Reports dyspnea with activity. Cardiovascular: no chest pain, positive for mild lower extremity edema. No palpitations. No paroxysmal nocturnal dyspnea. No orthopnea. positive for lightheadedness or dizziness. No syncopal episodes. Abdominal: Reports no abdominal pain. no nausea, vomiting. No diarrhea. No constipation. No bloody or tarry stools reports loss of appetite. Genitourinary: No dysuria, increased frequency, urgency. No urinary retention. Musculoskeletal: No myalgias. positive for muscle weakness, positive gait dysfunction, frequent falls. No back pain. No neck pain. Appear weak on the right upper and lower extremity with a drift. Integumentary: healed forehead wound , no lesions. No rash or pruritus. No unusual bruising. No change in hair or nails. Neurologic: No aphasia. Minimal facial droop. No change in mentation. No head injury. No headache, minimal drift. Psychiatric: positive for depression. No anxiety. No mood swings. Endocrine: abnormal blood sugars. No weight change. PHYSICAL EXAMINATION: General: 58-year-old male laying down in no distress. HEENT: Head is atraumatic, mild right-sided facial weakness, pupils were equal round reactive to light and recommendation, extraocular muscle movement were intact, sclera nonicteric, conjunctivae were pale, mucous membranes of the mouth are somewhat dry. Neck: Supple, no JVP, decreased carotid upstroke bilaterally, no lymphadenopathy. Chest: Decreased breath sounds at the bases, few rhonchi no expirratory w heezes,, no chest wall tenderness, no intercostal retractions. Heart: First heart sound is normal, second heart sounds normal, there is systolic ejection murmur 2/6 located in the left sternal border. Abdomen: Soft, nontender, nondistended, positive bowel sounds, there is no hepatosplenomegaly Extremities: There is +1 edema no calf tenderness DP +1 bilaterally. Neurologic examination: Patient is awake alert and oriented X 3, cranial nerves II-12 appear grossly intact, muscle power were 4 out of 5 in in right upper extremity and right lower extremity with drift, minimal right-sided facial weakn ess, minimal slurred speech, left upper extremity was 5 out of 5 left lower extremity was 5 out of 5. Babinski's were positive on the right side. ASSESSMENT AND PLAN: 1. Acute ischemic CVA in the chelsey. Continue Eliquis 5 mg PO twice, daily aspirin 81 mg daily, continue Lipitor 80 mg PO daily, and Zetia 10 mg PO daily. Patient just had an echocardiogram last month and it did show evidence of moderate LV dysfunction with moderate MR and severe pulmonary hypertension. We will consult PT/OT/ST and cardiology as well. MRI brain with and without OLIMPIA reveals acute subacute CVA left chelsey. Monitor the patient very closely, try to transfer the patient to inpatient rehabilitation at [facility] when prior authorization is available. 2. Acute kidney injury on CKD3a. back to baseline continue to monitor the patient very closely. His oral intake of fluid. 3. Hypertension and hypertensive cardiovascular disease. Continue the patient on losartan 100 mg orally once every day, continue patient on Carvedilol 25 mg orally twice every day, continue Amlodipine 5 mg po daily and monitor BP very closely. 4. Diabetes mellitus type 2. Continue patient on Lantus 21 units at bedtime along with a sliding scale insulin, we will continue with Humalog 7 units before each meal, discontinue Metformin and we will start Farxiga 10 mg po daily. 5. Coronary artery disease status post CABG 6 as well as PCI in the past. Continue patient on ASA 81 mg once every day, Carvedilol 25 mg orally twice every day, continue patient on atorvastatin 80 mg orally once every day, continue Zetia 10 mg orally once every day. 6. Hyperlipidemia. Continue patient on atorvastatin 80 mg once every day, continue Zetia 10 mg orally once every day, monitor lipid panel, keep LDL 55-70. 7. Diabetic polyneuropathy. Patient was taken off gabapentin for now. 8. Obstructive sleep apnea. Patient does have a CPAP at home. 9. Chronic systolic heart failure. Continue with furosemide 40 mg orally twice every day, Carvedilol 25 mg po bid and add Farxiga 10 mg po daily. 10. Paroxysmal atrial fibrillation . Continue patient on Coreg 25 mg orally twice every day, Eliquis 5 mg po bid. losartan 100 mg orally once every day. 11. DVT prophylaxis. Continue Eliquis 5 mg orally twice every day. 12. GI prophylaxis. Continue Protonix 40 mg orally bid along with Carafate 1 g orally 2 times every day. 13. Chronic blood loss anemia due to esophageal ulcer post EGD last month. We will continue with iron 325 mg po bid, protonix 40 mg po bid and Carafate 1 gr po tid. 14. Patient is a no code. 15. Discharge to inpatient rehab likely Wednesday. Objective - Vital Signs Vital signs: Vital Signs Temp 98.2 F 06/27/23 07:15 Pulse 72 06/27/23 07:15 Resp 17 06/27/23 07:15 BP 154/79 06/27/23 07:15 Pulse Ox 97 06/27/23 07:15 FiO2 Intake & Output 06/26/23 06/27/23 06/27/23 18:59 06:59 18:59 Intake Total 100 500 Output Total 4100 1000 Balance -4000 -500 Intake: Oral 100 500 Output: Urine 4100 1000 - Labs CBC & Chem 7: 06/26/23 06:21 06/26/23 06:21 Labs: Abnormal Lab Results - Last 24 Hours (Table) 06/26/23 06/26/23 06/26/23 Range/Units 11:44 17:05 20:58 POC Glucose (mg/dL) 297 H 136 H 196 H (70-110) mg/dL
--- NOTE | 2023-06-27 09:42 | P.PN ---
Subjective Progress Note Date: 06/26/23 HISTORY OF PRESENT ILLNESS: This is a 58-year-old male patient of rosita and Dr. Ga with past medical history of coronary artery disease status post 6 vessel CABG 2006 with MAE to LAD, saphenous venous graft to the PDA, saphenous venous graft to the obtuse marginal one, radial artery to the obtuse marginal branch 2 and saphenous venous graft to the obtuse marginal 3 followed by heart catheterization with PCI and stent of the saphenous venous graft to the RCA in 2015 at which time he pres ented with non-ST elevated myocardial infarction. Most recent cardiac catheterization was performed on 04/10/2022 which revealed severe triple-vessel coronary artery disease with a patent ramus intermediate, patent SVG to the OM, patent MAE to the LAD, and occluded saphenous vein graft to the RCA which is chronic from before. Medical therapy was advised at that time. History of hypertension, hypertensive cardiovascular disease with left ventricular hypertrophy, hyperlipidemia, ischemic cardiomyopathy, paroxysmal atrial fibrillation, currently on Eliquis, diabetes mellitus type 2 with diabetic polyneuropathy, hyperlipidemia, asthma, obstructive sleep apnea on CPAP, chronic low back pain, DVT in the past, patient was recently hospitalized at [facility] between 06/05/2023 and discharged 06/15/2023 after he was admitted for GI bleed due to esophageal ulcer. Patient had EGD and incomplete colonoscopy due to poor prep at that time. He was seen in the ER on 04/20/2023 for weakness. I s aw him 06/21/2023 and he was supposed to go back on Eliquis 5 mg po bid. Now, patient showed up to the ER with weakness, right sided facial droop, and right- sided drift. He had CT scan of the brain that showed right occipital infarct, was given ASA 325 mg in the ER and CXR that showed cardiomegaly. Labs revealed stable anemia at 9.1, elevated BUN and creatinine. Patient was restarted on Eliquis 5 mg po bid and ASA 81 mg po daily. Neurology consultation was obtained along with cardiology consult, PT/O and speech therapy. We will consult manager social media for discharge planning. 06/23: Patient is sitting up in bed. He looks much better today, right-sided weakness slightly improved, right-sided facial droop remains. MRI brain reveals acute/subacute CVA involving the left chelsey. Continue Eliquis 5 mg PO twice daily and aspirin 81 mg PO daily, Lipitor 80 mg PO daily, and Zetia 10 mg PO daily. Hemoglobin has improved to 9.3, potassium 3.3 continue potassium chloride 20 mEq twice daily. Consultation for inpatient rehab has been placed, discharge plan pending rehabilitation recommendation. Patient remains a no code at this time. 06/24: Patient is sitting up on the edge of the bed. Continue Eliquis 5 mg p.o. twice daily, aspirin 81 mg p.o. daily, Lipitor 80 mg p.o. daily, and Zetia 10 mg p.o. daily. Continue Lasix 40 mg IV push every 12 hours. Patient has been accepted to the rehabilitation unit at [facility] pending authorization. Patient likely to be discharged on Wednesday. Patient is a no code. 06/25: Patient is lying comfortably in bed. Patient has not no complaints at this time right leg weakness has improved. Continue current medications. Plan is for patient to be discharged on Wednesday to inpatient rehab at [facility]. REVIEW OF SYSTEMS: Constitutional: No documented fever, no chills, no night sweats. No weight change. Positive for weakness, positive for fatigue, no lethargy. No daytime sleepiness. HEENT: No headache. No blurred vision or double vision, no loss of vision. No loss of Hearing, no ringing in the ears, no dizziness. No nasal drainage or congestion. No epistaxis. No sore throat. Lungs: positive for shortness of breath, no cough, or sputum production. no wheezing. Reports dyspnea with activity. Cardiovascular: no chest pain, positive for lower extremity edema. No palpitations. No paroxysmal nocturnal dyspnea. No orthopnea. positive for lightheadedness or dizziness. No syncopal episodes. Abdominal: Reports no abdominal pain. no nausea, vomiting. No diarrhea. No constipation. No bloody or tarry stools reports loss of appetite. Genitourinary: No dysuria, increased frequency, urgency. No urinary retention. Musculoskeletal: No myalgias. positive for muscle weakness, no gait dysfunction, frequent falls. No back pain. No neck pain. Integumentary: healed forehead wound, no lesions. No rash or pruritus. No unusual bruising. No change in hair or nails. Neurologic: No aphasia. Minimal facial droop. No change in mentation. No head injury. No headache, minimal drift. Psychiatric: positive for depression. No anxiety. No mood swings. Endocrine: abnormal blood sugars. No weight change. PHYSICAL EXAMINATION: General: 58-year-old male laying down in no distress. HEENT: Head is atraumatic, normocephalic, pupils were equal round reactive to light and recommendation, extraocular muscle movement were intact, sclera nonicteric, conjunctivae were pale, mucous membranes of the mouth are somewhat dry. Neck: Supple, no JVP, normal carotid upstroke bilaterally, no lymphadenopathy. Chest: Decreased breath sounds at the bases, few rhonchi no expirratory wheezes,, no chest wall tenderness, no intercostal retractions. Heart: First heart sound is normal, second heart sounds normal, irregularly irregular, there is systolic ejection murmur 2/6 located in the left sternal border. Abdomen: Soft, nontender, nondistended, positive bowel sounds, there is no hepatosplenomegaly Extremities: There is +2 edema no calf tenderness DP +1 bilaterally. Neurologic examination: Patient is awake alert and oriented X 3, cranial nerves II-12 appear grossly intact, muscle power were 4 out of 5 in upper extremities and 4 out of 5 in bilateral lower extremities, deep tendon reflexes normal bilaterally. Minimal right facial droop, and right leg weakness. ASSESSMENT AND PLAN: 1. Acute ischemic CVA. Continue Eliquis 5 mg PO twice, daily aspirin 81 mg daily, continue Lipitor 80 mg PO daily, and Zetia 10 mg PO daily. Pending transfer to inpatient rehab at [facility] on Wednesday, 06/27. 2. Acute kidney injury on CKD3a. Patient is on Lasix 40 mg IV push every 12 hours, along with potassium supplement. 3. Hypertension and hypertensive cardiovascular disease. Continue the patient on losartan 100 mg orally once every day, continue patient on Carvedilol 25 mg orally twice every day, continue Amlodipine 5 mg po daily and monitor BP very closely. 4. Diabetes mellitus type 2. Restart the patient on Lantus 21 units at bedtime along with a sliding scale insulin, we will continue with Humalog 7 units before each meal, discontinue Metformin and we will start Farxiga 5 mg po daily. 5. Coronary artery disease status post CABG 6 as well as PCI in the past. Continue patient on ASA 81 mg once every day, Carvedilol 25 mg orally twice every day, continue patient on atorvastatin 80 mg orally once every day, continue Zetia 10 mg orally once every day. 6. Hyperlipidemia. Continue patient on atorvastatin 80 mg once every day, continue Zetia 10 mg orally once every day, monitor lipid panel, keep LDL 55-70. 7. Diabetic polyneuropathy. Continue patient on gabapentin 900 mg orally 2 times every day. 8. Obstructive sleep apnea. Patient does have a CPAP at home. 9. Chronic systolic heart failure. Continue with Torsemide 40 mg po daily, Carvedilol 25 mg po bid and add Farxiga 5 mg po daily. 10. Paroxysmal atrial fibrillation . Continue patient on Coreg 25 mg orally t wice every day, Eliquis 5 mg po bid. 11. DVT prophylaxis. Continue Eliquis 5 mg orally twice every day. 12. GI prophylaxis. Continue Protonix 40 mg orally bid 13. Chronic blood loss anemia due to esophageal ulcer post EGD last month. We will continue with iron 325 mg po bid, protonix 40 mg po bid and Carafate 1 gr po tid. 14. Patient is a no code. 15. Discharge to inpatient rehab likely Wednesday. Impression and plan of care have been directed as dictated by the signing physician. Halley Guevara, nurse practitioner acting as scribe for signing physician. Objective - Vital Signs Vital signs: Vital Signs Temp 98.6 F 06/26/23 06:45 Pulse 71 06/26/23 06:45 Resp 17 06/26/23 06:45 BP 166/89 06/26/23 06:45 Pulse Ox 95 06/26/23 06:45 FiO2 Intake & Output 06/25/23 06/26/23 06/26/23 18:59 06:59 18:59 Intake Total 594 Output Total 2400 1325 1800 Balance -1806 -1325 -1800 Weight 73.7 kg Intake: Oral 594 Output: Urine 2400 1325 1800 Other: Voiding Method Urinal Urinal # Bowel Movements 1 - Labs CBC & Chem 7: 06/26/23 06:21 06/26/23 06:21 Labs: Abnormal Lab Results - Last 24 Hours (Table) 06/25/23 06/25/23 06/26/23 Range/Units 16:06 20:01 06:21 RBC (4.30-5.90) m/uL Hgb (13.0-17.5) gm/dL Hct (39.0-53.0) % MCH (25.0-35.0) pg MCHC (31.0-37.0) g/dL RDW (11.5-15.5) % Lymphocytes # (1.0-4.8) k/uL Chloride 109 H (98-107) mmol/L BUN 25 H (9-20) mg/dL Creatinine 1.35 H (0.66-1.25) mg/dL Glucose 100 H (74-99) mg/dL POC Glucose (mg/dL) 133 H 135 H (70-110) mg/dL Total Protein 6.2 L (6.3-8.2) g/dL Albumin 3.2 L (3.5-5.0) g/dL 06/26/23 06/26/23 Range/Units 06:21 11:44 RBC 3.94 L (4.30-5.90) m/uL Hgb 9.4 L (13.0-17.5) gm/dL Hct 32.1 L (39.0-53.0) % MCH 23.8 L (25.0-35.0) pg MCHC 29.2 L (31.0-37.0) g/dL RDW 19.1 H (11.5-15.5) % Lymphocytes # 0.8 L (1.0-4.8) k/uL Chloride (98-107) mmol/L BUN (9-20) mg/dL Creatinine (0.66-1.25) mg/dL Glucose (74-99) mg/dL POC Glucose (mg/dL) 297 H (70-110) mg/dL Total Protein (6.3-8.2) g/dL Albumin (3.5-5.0) g/dL
[2023-06-27 09:46] LABS: BUN/Creat Ratio 11.69 Ratio (12.00-20.00); Blood Urea Nitrogen 18.7 mg/dL (9.0-27.0); Calcium 8.6 mg/dL (8.7-10.3); Carbon Dioxide 25.3 mmol/L (21.6-31.8); Chloride 106 mmol/L (96-109); Glucose 102 mg/dL (70-110); Potassium 3.5 mmol/L (3.5-5.5); Sodium 144 mmol/L (135-145)
[2023-06-27 11:55] LABS: Glucose,Whole Blood 152 mg/dL (70-110)
--- NOTE | 2023-06-27 12:40 | P.PN ---
Subjective Progress Note Date: 06/27/23 This is a 58-year-old male with a past medical history significant for coronary artery disease with previous CABG, persistent atrial fibrillation, ischemic cardiomyopathy, hypertension, hyperlipidemia, diabetes and anemia. Patient follows in the office with Dr. Ga. We have been asked to see the patient in consultation for CVA/atrial fibrillation. Patient examined at the bedside in the emergency room. Patient presented to the hospital with a chief complaint of weakness. He reports generalized weakness but worse on the right side. He states he has been having difficulty with gross motor movement with his right hand. He also reports that he was in [employer] about a week ago and fell. He is unsure if he lost consciousness at that time. Patient was hospitalized earlier this month secondary to syncope and anemia. He underwent EGD and colonoscopy with Dr. Salgado on 06/09/2023. Colonoscopy revealed internal hemorrhoids, no colitis, and melanotic stool consistent with upper GI bleed. EGD revealed acute esophageal ulceration measuring 6 mm at GE junction with bleeding, erosive esophagitis, and acute on chronic gastritis. The patient was placed on Protonix and Carafate at that time. Patient states he was previously taking Eliquis although this has been held recently secondary to his acute anemia and esophageal ulceration. He also had complaints of lower extremity edema and was placed on IV Lasix. MRI was completed and confirmed CVA. 06/26/2023 Patient was seen and examined resting comfortably in bed. His edema has improved. He does not feel that his strength has improved much. There is plans for him to go to rehab following discharge likely on Wednesday. 06/27/2023 Patient was seen and examined resting comfortably in bed. He has no complaints of chest discomfort, shortness of breath or edema. He is anticipating being discharged to rehab tomorrow. Objective - Vital Signs Vital signs: Vital Signs Temp 98.2 F 06/27/23 07:15 Pulse 72 06/27/23 07:15 Resp 17 06/27/23 07:15 BP 154/79 06/27/23 07:15 Pulse Ox 97 06/27/23 07:15 FiO2 Intake & Output 06/26/23 06/27/23 06/27/23 18:59 06:59 18:59 Intake Total 100 500 Output Total 4100 1000 Balance -4000 -500 Intake: Oral 100 500 Output: Urine 4100 1000 - Exam GENERAL: Well-developed in no acute distress. HEENT: Head is normocephalic. Pupils are equal, round. Sclerae anicteric. Mucous membranes of the mouth are moist. Neck supple. No JVD or thyromegaly LUNGS: Respirations even and unlabored. Lungs essentially clear to auscultation bilaterally. HEART: Irregular rate and rhythm. S1 and S2 heard. Systolic murmur noted. ABDOMEN: Soft. Nondistended. Nontender. EXTREMITIES: Normal range of motion. No clubbing or cyanosis. Peripheral pulses intact. No lower extremity edema NEUROLOGIC: Awake and alert. Oriented x 3. - Labs CBC & Chem 7: 06/26/23 06:21 06/27/23 04:02 Labs: Abnormal Lab Results - Last 24 Hours (Table) 06/26/23 06/26/23 06/27/23 Range/Units 17:05 20:58 04:02 Anion Gap 12.70 H (4.00-12.00) mmol/L Creatinine 1.6 H (0.6-1.5) mg/dL Est GFR (CKD-EPI) 49 L (>=60) BUN/Creatinine Ratio 11.69 L (12.00-20.00) Ratio POC Glucose (mg/dL) 136 H 196 H (70-110) mg/dL Calcium 8.6 L (8.7-10.3) mg/dL 06/27/23 Range/Units 11:54 Anion Gap (4.00-12.00) mmol/L Creatinine (0.6-1.5) mg/dL Est GFR (CKD-EPI) (>=60) BUN/Creatinine Ratio (12.00-20.00) Ratio POC Glucose (mg/dL) 152 H (70-110) mg/dL Calcium (8.7-10.3) mg/dL Assessment and Plan Assessment: Generalized weakness, right greater than left, secondary to CVA Persistent atrial fibrillation with controlled ventricular rate, not anticoagulated on an outpatient basis due to recent anemia History of anemia, status post EGD and colonoscopy, revealing acute esophageal ulceration with bleeding, 06/09/2023 Acute on chronic heart failure with decreased EF, 40 to 45% Remote left occipital infarct, per CT brain Right ICA occlusion Coronary artery disease with previous CABG (2006) and subsequent stenting Ischemic cardiomyopathy, 40 to 45% Hypertension Hyperlipidemia Diabetes Valvular heart disease including moderate MR and severe TR Severe pulmonary hypertension Plan: From cardiology's perspective medications were reviewed we will continue the same. We will continue to follow the patient and provide further recommendations accordingly anticipate discharge to rehab on Wednesday. [employer]IST note has been reviewed, I agree with a documented findings and plan of care. Patient was seen and examined.
[2023-06-27 17:00] LABS: Glucose,Whole Blood 265 mg/dL (70-110)
[2023-06-27 20:16] LABS: Glucose,Whole Blood 287 mg/dL (70-110)
--- NOTE | 2023-06-28 01:20 | P.PN ---
Subjective Progress Note Date: 06/27/23 Patient was seen for a follow-up. Patient states that he is slightly feeling better. No new concerns. Objective - Vital Signs Vital signs: Vital Signs Temp 98.2 F 06/27/23 19:22 Pulse 71 06/27/23 19:22 Resp 14 06/27/23 19:22 BP 128/62 06/27/23 19:22 Pulse Ox 96 06/27/23 19:22 FiO2 Intake & Output 06/27/23 06/27/23 06/28/23 06:59 18:59 06:59 Intake Total 500 300 Output Total 1000 1000 Balance -500 -700 Intake: Oral 500 300 Output: Urine 1000 1000 - Exam Patient is a late middle aged male, in no acute distress. Patient is alert awake oriented to time place and person. Speech is mildly dysarthric and language functions are normal. Patient can name and repeat very well. Attention, concentration and fund of knowledge is adequate. On cranial nerve examination, pupils are equal, round and reacting to light, visual alvares are full on confrontation, with no neglect on double simultaneous stimulation. Extraocular muscles are intact with no nystagmus. Patient has right facial weakness, central type. His tongue protrudes to the midline. Palatal elevation and sensation normal, hearing and shoulder shrug normal, facial sensation normal. On muscle strength testing, there is right pronator drift about 45 degree and the strength is (right/left) deltoid 5/5, biceps 5/5, triceps 5/5, gravure press set up operator 4+5-/5, hip flexion 4/5, ankle dorsiflexion 5/5. Deep tendon reflexes are symmetric 1-1+ in the biceps, brachioradialis, knees, absent ankles and plantars are probable upgoing bilaterally. Sensory to touch is equal with no neglect on double simultaneous stimulation. Cerebellar function showed mild to moderate ataxia for [id number] testing only on the right side. Mild ataxia for [id number] testing on either side. Tone and bulk of muscles normal. Gait deferred.. On general examination, there is no carotid bruit or murmur, S1-S2 audible. Chest is clear on consultation. Abdomen is soft nontender. No organomegaly, bowel sounds present. Patient is some mild to moderate peripheral edema. Skin is very dry. Some hyperpigmentation noted. - Labs CBC & Chem 7: 06/26/23 06:21 06/27/23 04:02 Labs: Abnormal Lab Results - Last 24 Hours (Table) 06/27/23 06/27/23 06/27/23 Range/Units 04:02 11:54 16:59 Anion Gap 12.70 H (4.00-12.00) mmol/L Creatinine 1.6 H (0.6-1.5) mg/dL Est GFR (CKD-EPI) 49 L (>=60) BUN/Creatinine Ratio 11.69 L (12.00-20.00) Ratio POC Glucose (mg/dL) 152 H 265 H (70-110) mg/dL Calcium 8.6 L (8.7-10.3) mg/dL 06/27/23 Range/Units 20:14 Anion Gap (4.00-12.00) mmol/L Creatinine (0.6-1.5) mg/dL Est GFR (CKD-EPI) (>=60) BUN/Creatinine Ratio (12.00-20.00) Ratio POC Glucose (mg/dL) 287 H (70-110) mg/dL Calcium (8.7-10.3) mg/dL Assessment and Plan Assessment: * Acute ischemic stroke, involving the left chelsey, manifesting with right hemiparesis, dysarthria. * Atrial fibrillation, stopped anticoagulation 2 months ago because of dental work and also recent GI bleed. * Diabetes * Hypertension * Chronic anemia * Chronic renal insufficiency, mild to moderate Plan: MRI of the brain without contrast, revealed acute/subacute CVA involving the left chelsey. No abnormal postcontrast enhancement. Nonspecific white matter changes, likely related to small vessel ischemic disease. I personally reviewed MRI agree with the findings. 2-D echo performed recently on 06/07/2023 showed moderate LV systolic dysfunction with EF of 40 to 45%. Septal thickness. Moderate to severe pulmonary hypertension. Moderate posteriorly directed mitral regurgitation and severe TR. Moderately increased left atrial diameter. No need to repeat. Carotid Doppler, revealed no significant stenosis of the left ICA by Doppler ultrasound. Occlusion of the right ICA. This is asymptomatic, as the CVA is in the pontine region. Antegrade flow in both vertebral arteries. Fasting a.m. lipid panel with cholesterol 101, LDL 57, HDL 25 and triglycerides 90. Continue Lipitor 80 mg daily (home dose). Also on Zetia. Hemoglobin A1c 9.3 on 06/06/2023. Recommend optimize control of diabetes to target A1c <7.0. B12 1207, folate 12.0. TSH normal. Permissive hypertension for next 24-48 hours Patient has been resumed on Eliquis 5 mg twice daily, also on aspirin 81 mg daily for right carotid occlusion. Patient on Protonix for gastric ulcer prophylaxis. Neuro checks every 4 hours. Telemetry monitoring showing atrial fibrillation with heart rate of 61. PT, OT, speech therapy DVT prophylaxis: Patient on Eliquis. Patient accepted for inpatient rehab, pending insurance authorization. Neurologically clear for discharge. Dr. Souleymane Foote starting neurology service from the morning for any neurological concerns.
[2023-06-28 06:28] LABS: Glucose,Whole Blood 222 mg/dL (70-110)
[2023-06-28 08:33] LABS: Basophils # (A) 0.03 X 10*3/uL (0.00-0.10); Basophils % (A) 0.6 %; Eosinophils # (A) 0.27 X 10*3/uL (0.04-0.35); HCT 32.3 % (39.6-50.0); HGB 9.5 g/dL (13.0-17.0); Lymphocytes # (A) 0.95 X 10*3/uL (0.90-5.00); Lymphocytes % (A) 17.5 %; MCH 24.2 pg (27.0-32.0); MCHC 29.4 g/dL (32.0-37.0); MCV 82.2 FL (80.0-97.0); Mean Platelet Volume 10.3 FL (9.5-12.2); Monocytes % (A) 14.8 %; NRBC Per 100 WBC 0 X 10*3/uL (0.00-0.01); Neutrophils # (A) 3.35 X 10*3/uL (1.80-7.70); Neutrophils % (A) 61.7 %; Platelet Count 272 X 10*3/uL (140-440); RBC 3.93 X 10*6/uL (4.40-5.60); RDW 19.3 % (11.5-14.5); WBC 5.42 X 10*3/uL (4.50-10.00)
[2023-06-28 09:56] LABS: ALT 16 U/L (10-49); AST 14 U/L (14-35); Albumin 3.5 g/dL (3.8-4.9); Albumin/Globulin Ratio 1.35 Ratio (1.60-3.17); Alkaline Phosphatase 56 U/L (41-126); Calcium 8.7 mg/dL (8.7-10.3); Chloride 108 mmol/L (96-109); Globulin 2.6 g/dL (1.6-3.3); Glucose 188 mg/dL (70-110); Potassium 3.7 mmol/L (3.5-5.5); Sodium 145 mmol/L (135-145); Total Bilirubin 0.6 mg/dL (0.3-1.2); Total Protein 6.1 g/dL (6.2-8.2)
--- NOTE | 2023-06-28 10:21 | P.PN ---
Subjective Progress Note Date: 06/28/23 Principal diagnosis: Atrial fibrillation The patient is a pleasant 58-year-old gentleman with a past medical history significant for coronary artery disease status post CABG as well as cardiomyopathy as well as carotid atherosclerosis and hypertension and dyslipidemia and persistent atrial fibrillation who was admitted to the hospital with a stroke resulted in right-sided weakness. He was not on oral anticoagulation or as a matter fact he was on oral anticoagulation which was interrupted because of dental workup June 28, 2023 The patient was seen and evaluated this morning. He remains stable. Right- sided weakness has been somewhat better. Currently he is on oral antic oagulation using Eliquis. No pain in the chest and no shortness of breath and no dizziness or lightheadedness and no heart racing or fluttering. He is in atrial fibrillation with controlled heart rate. The examination is remarkable for irregular rhythm with clear breathing sounds bilaterally. Assessment Stroke documented on MRI Persistent atrial fibrillation Coronary artery disease status post CABG Cardiomyopathy Multiple comorbid conditions Carotid atherosclerosis Plan Continue the current medical regimen Continue oral anticoagulation Follow-up with the patient Objective - Vital Signs Vital signs: Vital Signs Temp 98.2 F 06/28/23 06:50 Pulse 65 06/28/23 06:50 Resp 15 06/28/23 06:50 BP 167/83 06/28/23 06:50 Pulse Ox 95 06/28/23 06:50 FiO2 Intake & Output 06/27/23 06/28/23 06/28/23 18:59 06:59 18:59 Intake Total 300 100 Output Total 1000 700 Balance -700 -700 100 Intake: Oral 300 100 Output: Urine 1000 700 - Labs CBC & Chem 7: 06/28/23 03:54 06/28/23 03:54 Labs: Abnormal Lab Results - Last 24 Hours (Table) 06/27/23 06/27/23 06/27/23 Range/Units 11:54 16:59 20:14 RBC (4.40-5.60) X 10*6/uL Hgb (13.0-17.0) g/dL Hct (39.6-50.0) % MCH (27.0-32.0) pg MCHC (32.0-37.0) g/dL RDW (11.5-14.5) % Est GFR (CKD-EPI) (>=60) Glucose (70-110) mg/dL POC Glucose (mg/dL) 152 H 265 H 287 H (70-110) mg/dL Total Protein (6.2-8.2) g/dL Albumin (3.8-4.9) g/dL Albumin/Globulin Ratio (1.60-3.17) Ratio 06/28/23 06/28/23 06/28/23 Range/Units 03:54 03:54 06:26 RBC 3.93 L (4.40-5.60) X 10*6/uL Hgb 9.5 L (13.0-17.0) g/dL Hct 32.3 L (39.6-50.0) % MCH 24.2 L (27.0-32.0) pg MCHC 29.4 L (32.0-37.0) g/dL RDW 19.3 H (11.5-14.5) % Est GFR (CKD-EPI) 53 L (>=60) Glucose 188 H (70-110) mg/dL POC Glucose (mg/dL) 222 H (70-110) mg/dL Total Protein 6.1 L (6.2-8.2) g/dL Albumin 3.5 L (3.8-4.9) g/dL Albumin/Globulin Ratio 1.35 L (1.60-3.17) Ratio
[2023-06-28 11:54] LABS: Glucose,Whole Blood 317 mg/dL (70-110)
--- NOTE | 2023-06-28 12:53 | P.PN ---
Subjective Progress Note Date: 06/28/23 HISTORY OF PRESENT ILLNESS: This is a 58-year-old male patient of rosita and Dr. Ga with past medical history of coronary artery disease status post 6 vessel CABG 2006 with MAE to LAD, saphenous venous graft to the PDA, saphenous venous graft to the obtuse marginal one, radial artery to the obtuse marginal branch 2 and saphenous venous graft to the obtuse marginal 3 followed by heart catheterization with PCI and stent of the saphenous venous graft to the RCA in 2015 at which time he pres ented with non-ST elevated myocardial infarction. Most recent cardiac catheterization was performed on 04/10/2022 which revealed severe triple-vessel coronary artery disease with a patent ramus intermediate, patent SVG to the OM, patent MAE to the LAD, and occluded saphenous vein graft to the RCA which is chronic from before. Medical therapy was advised at that time. History of hypertension, hypertensive cardiovascular disease with left ventricular hypertrophy, hyperlipidemia, ischemic cardiomyopathy, paroxysmal atrial fibrillation, currently on Eliquis, diabetes mellitus type 2 with diabetic polyneuropathy, hyperlipidemia, asthma, obstructive sleep apnea on CPAP, chronic low back pain, DVT in the past, patient was recently hospitalized at [facility] between 06/05/2023 and discharged 06/15/2023 after he was admitted for GI bleed due to esophageal ulcer. Patient had EGD and incomplete colonoscopy due to poor prep at that time. He was seen in the ER on 04/20/2023 for weakness. I s aw him 06/21/2023 and he was supposed to go back on Eliquis 5 mg po bid. Now, patient showed up to the ER with weakness, right sided facial droop, and right- sided drift. He had CT scan of the brain that showed right occipital infarct, was given ASA 325 mg in the ER and CXR that showed cardiomegaly. Labs revealed stable anemia at 9.1, elevated BUN and creatinine. Patient was restarted on Eliquis 5 mg po bid and ASA 81 mg po daily. Neurology consultation was obtained along with cardiology consult, PT/O and speech therapy. We will consult director of social work for discharge planning. 06/23: Patient is sitting up in bed. He looks much better today, right-sided weakness slightly improved, right-sided facial droop remains. MRI brain reveals acute/subacute CVA involving the left chelsey. Continue Eliquis 5 mg PO twice daily and aspirin 81 mg PO daily, Lipitor 80 mg PO daily, and Zetia 10 mg PO daily. Hemoglobin has improved to 9.3, potassium 3.3 continue potassium chloride 20 mEq twice daily. Consultation for inpatient rehab has been placed, discharge plan pending rehabilitation recommendation. Patient remains a no code at this time. 06/24: Patient is sitting up on the edge of the bed. Continue Eliquis 5 mg p.o. twice daily, aspirin 81 mg p.o. daily, Lipitor 80 mg p.o. daily, and Zetia 10 mg p.o. daily. Continue Lasix 40 mg IV push every 12 hours. Patient has been accepted to the rehabilitation unit at [facility] pending authorization. Patient likely to be discharged on Wednesday. Patient is a no code. 06/25: Patient is sitting up in bed he is feeling a bit better today, he denies any chest pain, or any shortness of breath, he continues to be somewhat weaker in the right upper extremity and right lower extremity, his slurred speech is better today, he denies any difficulty in swallowing at this time, he seems to be tolerating diet very well, he continues to work with speech therapy physical therapy and Occupational Therapy, we are waiting for the final prior author ization for the patient to be transferred to inpatient rehabilitation at [facility] he was seen and evaluated by physical therapy and rehabilitative medicine at [facility]. 06/26: Patient is sitting up in bed eating his breakfast, he is in better spirits today, he denies any chest pain, shortness of breath, his blood glucose level in the morning was 109, he denies any abdominal pain, he is going to the bathroom okay, he continues to work with physical therapy, he continues to be a bit weak in the right upper extremity, he will continue to work with physical therapy occupational therapy speech therapy, and the plan is to transfer the patient to [facility] tomorrow morning for physical therapy and rehabilitation 06/27: Patient is laying down in bed in no apparent distress, he denies any chest pain, shortness of breath, he has no abdominal pain, he has good bowel movement, he is urinating well, we are still awaiting the prior authorization for the patient to be transferred to inpatient rehabilitation at [facility], once that is approved patient can be transferred. REVIEW OF SYSTEMS: Constitutional: No documented fever, no chills, no night sweats. No weight change. Positive for weakness, positive for fatigue, no lethargy. No daytime sleepiness. HEENT: No headache. No blurred vision or double vision, no loss of vision. No loss of Hearing, no ringing in the ears, no dizziness. No nasal drainage or congestion. No epistaxis. No sore throat. Minimal slurred speech. Lungs: positive for shortness of breath, no cough, or sputum production. no wheezing. Reports dyspnea with activity. Cardiovascular: no chest pain, positive for mild lower extremity edema. No palpitations. No paroxysmal nocturnal dyspnea. No orthopnea. positive for lightheadedness or dizziness. No syncopal episodes. Abdominal: Reports no abdominal pain. no nausea, vomiting. No diarrhea. No constipation. No bloody or tarry stools reports loss of appetite. Genitourinary: No dysuria, increased frequency, urgency. No urinary retention. Musculoskeletal: No myalgias. positive for muscle weakness, positive gait dysfunction, frequent falls. No back pain. No neck pain. Appear weak on the right upper and lower extremity with a drift. Integumentary: healed forehead wound , no lesions. No rash or pruritus. No unusual bruising. No change in hair or nails. Neurologic: No aphasia. Minimal facial droop. No change in mentation. No head injury. No headache, minimal drift. Psychiatric: positive for depression. No anxiety. No mood swings. Endocrine: abnormal blood sugars. No weight change. PHYSICAL EXAMINATION: General: 58-year-old male laying down in no distress. HEENT: Head is atraumatic, mild right-sided facial weakness, pupils were equal round reactive to light and recommendation, extraocular muscle movement were intact, sclera nonicteric, conjunctivae were pale, mucous membranes of the mouth are somewhat dry. Neck: Supple, no JVP, decreased carotid upstroke bilaterally, no lymphadenopathy. Chest: Decreased breath sounds at the bases, few rhonchi no expirratory wheezes,, no chest wall tenderness, no intercostal retractions. Heart: First heart sound is normal, second heart sounds normal, there is systolic ejection murmur 2/6 located in the left sternal border. Abdomen: Soft, nontender, nondistended, positive bowel sounds, there is no hepatosplenomegaly Extremities: There is +1 edema no calf tenderness DP +1 bilaterally. Neurologic examination: Patient is awake alert and oriented X 3, cranial nerves II-12 appear grossly intact, muscle power were 4 out of 5 in in right upper extremity and right lower extremity with drift, minimal right-sided facial weakness, minimal slurred speech, left upper extremity was 5 out of 5 left lower extremity was 5 out of 5. Babinski's were positive on the right side. ASSESSMENT AND PLAN: 1. Acute ischemic CVA in the chelsey. Continue Eliquis 5 mg PO twice, daily aspirin 81 mg daily, continue Lipitor 80 mg PO daily, and Zetia 10 mg PO daily. Patient just had an echocardiogram last month and it did show evidence of moderate LV dysfunction with moderate MR and severe pulmonary hypertension. We will consult PT/OT/ST and cardiology as well. MRI brain with and without OLIMPIA reveals acute subacute CVA left chelsey. Monitor the patient very closely, try to transfer the patient to inpatient rehabilitation at [facility] when prior authorization is available. 2. Acute kidney injury on CKD3a. back to baseline continue to monitor the patient very closely. His oral intake of fluid. 3. Hypertension and hypertensive cardiovascular disease. Continue the patient on losartan 100 mg orally once every day, continue patient on Carvedilol 25 mg orally twice every day, continue Amlodipine 5 mg po daily and monitor BP very closely. 4. Diabetes mellitus type 2. Continue patient on Lantus and increase to 27 units at bedtime along with a sliding scale insulin, we will continue with Humalog 7 units before each meal, discontinue Metformin and Farxiga 10 mg po daily. 5. Coronary artery disease status post CABG 6 as well as PCI in the past. Continue patient on ASA 81 mg once every day, Carvedilol 25 mg orally twice every day, continue patient on atorvastatin 80 mg orally once every day, continue Zetia 10 mg orally once every day. 6. Hyperlipidemia. Continue patient on atorvastatin 80 mg once every day, continue Zetia 10 mg orally once every day, monitor lipid panel, keep LDL 55-70. 7. Diabetic polyneuropathy. Patient was taken off gabapentin for now. 8. Obstructive sleep apnea. Patient does have a CPAP at home. 9. Chronic systolic heart failure. Continue with furosemide 40 mg orally twice every day, Carvedilol 25 mg po bid and add Farxiga 10 mg po daily. 10. Paroxysmal atrial fibrillation . Continue patient on Coreg 25 mg orally twice every day, Eliquis 5 mg po bid. losartan 100 mg orally once every day. 11. DVT prophylaxis. Continue Eliquis 5 mg orally twice every day. 12. GI prophylaxis. Continue Protonix 40 mg orally bid along with Carafate 1 g orally 2 times every day. 13. Chronic blood loss anemia due to esophageal ulcer post EGD last month. We will continue with iron 325 mg po bid, protonix 40 mg po bid and Carafate 1 gr po tid. 14. Patient is a no code. 15. Discharge to inpatient rehab when authorization is available. Objective - Vital Signs Vital signs: Vital Signs Temp 98.2 F 06/28/23 06:50 Pulse 65 06/28/23 06:50 Resp 15 06/28/23 06:50 BP 167/83 06/28/23 06:50 Pulse Ox 95 06/28/23 06:50 FiO2 Intake & Output 06/27/23 06/28/23 06/28/23 18:59 06:59 18:59 Intake Total 300 100 Output Total 1000 700 Balance -700 -700 100 Intake: Oral 300 100 Output: Urine 1000 700 - Labs CBC & Chem 7: 06/28/23 03:54 06/28/23 03:54 Labs: Abnormal Lab Results - Last 24 Hours (Table) 06/27/23 06/27/23 06/28/23 Range/Units 16:59 20:14 03:54 RBC 3.93 L (4.40-5.60) X 10*6/uL Hgb 9.5 L (13.0-17.0) g/dL Hct 32.3 L (39.6-50.0) % MCH 24.2 L (27.0-32.0) pg MCHC 29.4 L (32.0-37.0) g/dL RDW 19.3 H (11.5-14.5) % Est GFR (CKD-EPI) (>=60) Glucose (70-110) mg/dL POC Glucose (mg/dL) 265 H 287 H (70-110) mg/dL Total Protein (6.2-8.2) g/dL Albumin (3.8-4.9) g/dL Albumin/Globulin Ratio (1.60-3.17) Ratio 06/28/23 06/28/23 06/28/23 Range/Units 03:54 06:26 11:53 RBC (4.40-5.60) X 10*6/uL Hgb (13.0-17.0) g/dL Hct (39.6-50.0) % MCH (27.0-32.0) pg MCHC (32.0-37.0) g/dL RDW (11.5-14.5) % Est GFR (CKD-EPI) 53 L (>=60) Glucose 188 H (70-110) mg/dL POC Glucose (mg/dL) 222 H 317 H (70-110) mg/dL Total Protein 6.1 L (6.2-8.2) g/dL Albumin 3.5 L (3.8-4.9) g/dL Albumin/Globulin Ratio 1.35 L (1.60-3.17) Ratio
[2023-06-28 16:40] LABS: Glucose,Whole Blood 115 mg/dL (70-110)
[2023-06-28 19:58] LABS: Glucose,Whole Blood 236 mg/dL (70-110)
[2023-06-28] MEDS: INSULIN DETEMIR (LEVEMIR) 100 UNIT/ML SYR SQ SCH (21:27)
[2023-06-29 05:10] LABS: Glucose,Whole Blood 198 mg/dL (70-110)
[2023-06-29 08:49] LABS: Basophils # (A) 0.03 X 10*3/uL (0.00-0.10); Basophils % (A) 0.5 %; Eosinophils # (A) 0.27 X 10*3/uL (0.04-0.35); Eosinophils % (A) 4.2 %; HCT 31.5 % (39.6-50.0); HGB 9.1 g/dL (13.0-17.0); Lymphocytes # (A) 0.85 X 10*3/uL (0.90-5.00); Lymphocytes % (A) 13.1 %; MCH 23.6 pg (27.0-32.0); MCHC 28.9 g/dL (32.0-37.0); MCV 81.6 FL (80.0-97.0); Mean Platelet Volume 10.4 FL (9.5-12.2); Monocytes # (A) 0.98 X 10*3/uL (0.20-1.00); Monocytes % (A) 15.1 %; NRBC Per 100 WBC 0 X 10*3/uL (0.00-0.01); Neutrophils # (A) 4.36 X 10*3/uL (1.80-7.70); Neutrophils % (A) 66.9 %; Platelet Count 276 X 10*3/uL (140-440); RBC 3.86 X 10*6/uL (4.40-5.60); RDW 19.6 % (11.5-14.5)
[2023-06-29 09:20] LABS: ALT 15 U/L (10-49); AST 15 U/L (14-35); Albumin 3.4 g/dL (3.8-4.9); Albumin/Globulin Ratio 1.36 Ratio (1.60-3.17); Alkaline Phosphatase 56 U/L (41-126); BUN/Creat Ratio 15.27 Ratio (12.00-20.00); Blood Urea Nitrogen 22.9 mg/dL (9.0-27.0); Calcium 8.6 mg/dL (8.7-10.3); Carbon Dioxide 24.3 mmol/L (21.6-31.8); Chloride 106 mmol/L (96-109); Globulin 2.5 g/dL (1.6-3.3); Glucose 190 mg/dL (70-110); Potassium 3.7 mmol/L (3.5-5.5); Sodium 142 mmol/L (135-145); Total Bilirubin 0.5 mg/dL (0.3-1.2); Total Protein 5.9 g/dL (6.2-8.2)
--- NOTE | 2023-06-29 11:43 | P.PN ---
Subjective Progress Note Date: 06/29/23 Principal diagnosis: Atrial fibrillation The patient is a pleasant 58-year-old gentleman with a past medical history significant for coronary artery disease status post CABG as well as cardiomyopathy as well as carotid atherosclerosis and hypertension and dyslipidemia and persistent atrial fibrillation who was admitted to the hospital with a stroke resulted in right-sided weakness. He was not on oral anticoagulation or as a matter fact he was on oral anticoagulation which was interrupted because of dental workup June 28, 2023 The patient was seen and evaluated this morning. He remains stable. Right- sided weakness has been somewhat better. Currently he is on oral antic oagulation using Eliquis. No pain in the chest and no shortness of breath and no dizziness or lightheadedness and no heart racing or fluttering. He is in atrial fibrillation with controlled heart rate. The examination is remarkable for irregular rhythm with clear breathing sounds bilaterally. June 29, 2023 The patient was seen and evaluated this morning. He is stable from a cardiovascular standpoint of view. He still have right-sided weakness/numbness which has not improved significantly compared to before. The pressure appears to be under good control on the current medical regimen. He is back on antiplatelet as well as oral anticoagulation. Examination is remarkable for regular rhythm with clear breathing sounds bilaterally and no edema was noted. Assessment Stroke documented on MRI Persistent atrial fibrillation Coronary artery disease status post CABG Cardiomyopathy Multiple comorbid conditions Carotid atherosclerosis Plan Continue the current medical regimen Continue oral anticoagulation Follow-up with the patient Objective - Vital Signs Vital signs: Vital Signs Temp 98.4 F 06/29/23 07:15 Pulse 67 06/29/23 07:15 Resp 16 06/29/23 07:15 BP 150/75 06/29/23 07:15 Pulse Ox 95 06/29/23 07:15 FiO2 Intake & Output 06/28/23 06/29/23 06/29/23 18:59 06:59 18:59 Intake Total 750 950 250 Output Total 1200 Balance -450 950 250 Intake: Oral 750 950 250 Output: Urine 1200 Other: # Voids 3 # Bowel Movements 1 - Labs CBC & Chem 7: 06/29/23 04:29 06/29/23 04:29 Labs: Abnormal Lab Results - Last 24 Hours (Table) 06/28/23 06/28/23 06/28/23 Range/Units 11:53 16:38 19:57 RBC (4.40-5.60) X 10*6/uL Hgb (13.0-17.0) g/dL Hct (39.6-50.0) % MCH (27.0-32.0) pg MCHC (32.0-37.0) g/dL RDW (11.5-14.5) % Lymphocytes # (0.90-5.00) X 10*3/uL Est GFR (CKD-EPI) (>=60) Glucose (70-110) mg/dL POC Glucose (mg/dL) 317 H 115 H 236 H (70-110) mg/dL Calcium (8.7-10.3) mg/dL Total Protein (6.2-8.2) g/dL Albumin (3.8-4.9) g/dL Albumin/Globulin Ratio (1.60-3.17) Ratio 06/29/23 06/29/23 06/29/23 Range/Units 04:29 04:29 05:07 RBC 3.86 L (4.40-5.60) X 10*6/uL Hgb 9.1 L (13.0-17.0) g/dL Hct 31.5 L (39.6-50.0) % MCH 23.6 L (27.0-32.0) pg MCHC 28.9 L (32.0-37.0) g/dL RDW 19.6 H (11.5-14.5) % Lymphocytes # 0.85 L (0.90-5.00) X 10*3/uL Est GFR (CKD-EPI) 53 L (>=60) Glucose 190 H (70-110) mg/dL POC Glucose (mg/dL) 198 H (70-110) mg/dL Calcium 8.6 L (8.7-10.3) mg/dL Total Protein 5.9 L (6.2-8.2) g/dL Albumin 3.4 L (3.8-4.9) g/dL Albumin/Globulin Ratio 1.36 L (1.60-3.17) Ratio
[2023-06-29 12:34] LABS: Glucose,Whole Blood 129 mg/dL (70-110)
--- NOTE | 2023-06-29 12:52 | P.PN ---
Subjective Progress Note Date: 06/29/23 HISTORY OF PRESENT ILLNESS: This is a 58-year-old male patient of rosita and Dr. Ga with past medical history of coronary artery disease status post 6 vessel CABG 2006 with MAE to LAD, saphenous venous graft to the PDA, saphenous venous graft to the obtuse marginal one, radial artery to the obtuse marginal branch 2 and saphenous venous graft to the obtuse marginal 3 followed by heart catheterization with PCI and stent of the saphenous venous graft to the RCA in 2015 at which time he pres ented with non-ST elevated myocardial infarction. Most recent cardiac catheterization was performed on 04/10/2022 which revealed severe triple-vessel coronary artery disease with a patent ramus intermediate, patent SVG to the OM, patent MAE to the LAD, and occluded saphenous vein graft to the RCA which is chronic from before. Medical therapy was advised at that time. History of hypertension, hypertensive cardiovascular disease with left ventricular hypertrophy, hyperlipidemia, ischemic cardiomyopathy, paroxysmal atrial fibrillation, currently on Eliquis, diabetes mellitus type 2 with diabetic polyneuropathy, hyperlipidemia, asthma, obstructive sleep apnea on CPAP, chronic low back pain, DVT in the past, patient was recently hospitalized at [facility] between 06/05/2023 and discharged 06/15/2023 after he was admitted for GI bleed due to esophageal ulcer. Patient had EGD and incomplete colonoscopy due to poor prep at that time. He was seen in the ER on 04/20/2023 for weakness. I s aw him 06/21/2023 and he was supposed to go back on Eliquis 5 mg po bid. Now, patient showed up to the ER with weakness, right sided facial droop, and right- sided drift. He had CT scan of the brain that showed right occipital infarct, was given ASA 325 mg in the ER and CXR that showed cardiomegaly. Labs revealed stable anemia at 9.1, elevated BUN and creatinine. Patient was restarted on Eliquis 5 mg po bid and ASA 81 mg po daily. Neurology consultation was obtained along with cardiology consult, PT/O and speech therapy. We will consult social problems specialist for discharge planning. 06/23: Patient is sitting up in bed. He looks much better today, right-sided weakness slightly improved, right-sided facial droop remains. MRI brain reveals acute/subacute CVA involving the left chelsey. Continue Eliquis 5 mg PO twice daily and aspirin 81 mg PO daily, Lipitor 80 mg PO daily, and Zetia 10 mg PO daily. Hemoglobin has improved to 9.3, potassium 3.3 continue potassium chloride 20 mEq twice daily. Consultation for inpatient rehab has been placed, discharge plan pending rehabilitation recommendation. Patient remains a no code at this time. 06/24: Patient is sitting up on the edge of the bed. Continue Eliquis 5 mg p.o. twice daily, aspirin 81 mg p.o. daily, Lipitor 80 mg p.o. daily, and Zetia 10 mg p.o. daily. Continue Lasix 40 mg IV push every 12 hours. Patient has been accepted to the rehabilitation unit at [facility] pending authorization. Patient likely to be discharged on Wednesday. Patient is a no code. 06/25: Patient is sitting up in bed he is feeling a bit better today, he denies any chest pain, or any shortness of breath, he continues to be somewhat weaker in the right upper extremity and right lower extremity, his slurred speech is better today, he denies any difficulty in swallowing at this time, he seems to be tolerating diet very well, he continues to work with speech therapy physical therapy and Occupational Therapy, we are waiting for the final prior author ization for the patient to be transferred to inpatient rehabilitation at [facility] he was seen and evaluated by physical therapy and rehabilitative medicine at [facility]. 06/26: Patient is sitting up in bed eating his breakfast, he is in better spirits today, he denies any chest pain, shortness of breath, his blood glucose level in the morning was 109, he denies any abdominal pain, he is going to the bathroom okay, he continues to work with physical therapy, he continues to be a bit weak in the right upper extremity, he will continue to work with physical therapy occupational therapy speech therapy, and the plan is to transfer the patient to [facility] tomorrow morning for physical therapy and rehabilitation 06/27: Patient is laying down in bed in no apparent distress, he denies any chest pain, shortness of breath, he has no abdominal pain, he has good bowel movement, he is urinating well, we are still awaiting the prior authorization for the patient to be transferred to inpatient rehabilitation at [facility], once that is approved patient can be transferred. 06/27: Patient is laying down in bed appears to be somewhat anxious today, he continues to be somewhat depressed as well, he denies any chest pain, he has no shortness of breath, he continues to be in and out of atrial fibrillation, he is currently on Eliquis 5 mg orally twice every day, continue with to work with physical therapy and Occupational Therapy was still awaiting prior authorization for from his insurance to be transferred to inpatient rehabilitation if there is no authorization patient should be transferred to [facility] hopefully in the next 24 hours. I will start the patient on mirtazapine 7.5 mg at bedtime to help the patient's sleep better, and also to help with his mood disorder. REVIEW OF SYSTEMS: Constitutional: No documented fever, no chills, no night sweats. No weight change. Positive for weakness, positive for fatigue, no lethargy. No daytime sleepiness. HEENT: No headache. No blurred vision or double vision, no loss of vision. No loss of Hearing, no ringing in the ears, no dizziness. No nasal drainage or congestion. No epistaxis. No sore throat. Minimal slurred speech. Lungs: positive for shortness of breath, no cough, or sputum production. no wheezing. Reports dyspnea with activity. Cardiovascular: no chest pain, positive for mild lower extremity edema. No palpitations. No paroxysmal nocturnal dyspnea. No orthopnea. positive for lightheadedness or dizziness. No syncopal episodes. Abdominal: Reports no abdominal pain. no nausea, vomiting. No diarrhea. No constipation. No bloody or tarry stools reports loss of appetite. Genitourinary: No dysuria, increased frequency, urgency. No urinary retention. Musculoskeletal: No myalgias. positive for muscle weakness, positive gait dysfunction, frequent falls. No back pain. No neck pain. Appear weak on the right upper and lower extremity with a drift. Integumentary: healed forehead wound , no lesions. No rash or pruritus. No unusual bruising. No change in hair or nails. Neurologic: No aphasia. Minimal facial droop. No change in mentation. No head injury. No headache, minimal drift. Psychiatric: positive for depression. No anxiety. No mood swings. Endocrine: abnormal blood sugars. No weight change. PHYSICAL EXAMINATION: General: 58-year-old male laying down in no distress. HEENT: Head is atraumatic, mild right-sided facial weakness, pupils were equal round reactive to light and recommendation, extraocular muscle movement were intact, sclera nonicteric, conjunctivae were pale, mucous membranes of the mouth are somewhat dry. Neck: Supple, no JVP, decreased carotid upstroke bilaterally, no lymphadenopathy. Chest: Decreased breath sounds at the bases, few rhonchi no expirratory wheezes,, no chest wall tenderness, no intercostal retractions. Heart: First heart sound is normal, second heart sounds normal, there is systolic ejection murmur 2/6 located in the left sternal border. Abdomen: Soft, nontender, nondistended, positive bowel sounds, there is no hepatosplenomegaly Extremities: There is +1 edema no calf tenderness DP +1 bilaterally. Neurologic examination: Patient is awake alert and oriented X 3, cranial nerves II-12 appear grossly intact, muscle power were 4 out of 5 in in right upper extremity and right lower extremity with drift, minimal right-sided facial weakness, minimal slurred speech, left upper extremity was 5 out of 5 left lower extremity was 5 out of 5. Babinski's were positive on the right side. ASSESSMENT AND PLAN: 1. Acute ischemic CVA in the chelsey. Continue Eliquis 5 mg PO twice, daily aspirin 81 mg daily, continue Lipitor 80 mg PO daily, and Zetia 10 mg PO daily. Patient just had an echocardiogram last month and it did show evidence of moderate LV dysfunction with moderate MR and severe pulmonary hypertension. We will consult PT/OT/ST and cardiology as well. MRI brain with and without OLIMPIA reveals acute subacute CVA left chelsey. Monitor the patient very closely, try to transfer the patient to inpatient rehabilitation at [facility] when prior authorization is available. 2. Acute kidney injury on CKD3a. back to baseline continue to monitor the patient very closely. His oral intake of fluid. 3. Hypertension and hypertensive cardiovascular disease. Continue the patient on losartan 100 mg orally once every day, continue patient on Carvedilol 25 mg orally twice every day, continue Amlodipine 5 mg po daily and monitor BP very closely. 4. Diabetes mellitus type 2. Continue patient on Lantus and increase to 27 units at bedtime along with a sliding scale insulin, we will continue with Humalog 7 units before each meal, discontinue Metformin and Farxiga 10 mg po daily. 5. Coronary artery disease status post CABG 6 as well as PCI in the past. Continue patient on ASA 81 mg once every day, Carvedilol 25 mg orally twice every day, continue patient on atorvastatin 80 mg orally once every day, continue Zetia 10 mg orally once every day. 6. Hyperlipidemia. Continue patient on atorvastatin 80 mg once every day, continue Zetia 10 mg orally once every day, monitor lipid panel, keep LDL 55-70. 7. Diabetic polyneuropathy. Patient was taken off gabapentin for now. 8. Obstructive sleep apnea. Patient does have a CPAP at home. 9. Chronic systolic heart failure. Continue with furosemide 40 mg orally twice every day, Carvedilol 25 mg po bid and add Farxiga 10 mg po daily. 10. Paroxysmal atrial fibrillation . Continue patient on Coreg 25 mg orally twice every day, Eliquis 5 mg po bid. losartan 100 mg orally once every day. 11. DVT prophylaxis. Continue Eliquis 5 mg orally twice every day. 12. GI prophylaxis. Continue Protonix 40 mg orally bid along with Carafate 1 g orally 2 times every day. 13. Chronic blood loss anemia due to esophageal ulcer post EGD last month. We will continue with iron 325 mg po bid, protonix 40 mg po bid and Carafate 1 gr po tid. 14. Patient is a no code. 15. Discharge to inpatient rehab when authorization is available. 16. Anxiety/depressive disorder. Patient is currently on Xanax 0.25 mg orally twice every day I will add small dose of mirtazapine 7.5 mg at bedtime I will follow-up with the patient very closely. If there is no prior authorization for the patient to go inpatient rehabilitation in the next 24 hours, will transfer the patient to [facility]. Objective - Vital Signs Vital signs: Vital Signs Temp 98.4 F 06/29/23 07:15 Pulse 67 06/29/23 07:15 Resp 16 06/29/23 07:15 BP 150/75 06/29/23 07:15 Pulse Ox 95 06/29/23 07:15 FiO2 Intake & Output 06/28/23 06/29/23 06/29/23 18:59 06:59 18:59 Intake Total 750 950 Output Total 1200 Balance -450 950 Intake: Oral 750 950 Output: Urine 1200 Other: # Voids 3 # Bowel Movements 1 - Labs CBC & Chem 7: 06/29/23 04:29 06/29/23 04:29 Labs: Abnormal Lab Results - Last 24 Hours (Table) 06/28/23 06/28/23 06/28/23 Range/Units 11:53 16:38 19:57 RBC (4.40-5.60) X 10*6/uL Hgb (13.0-17.0) g/dL Hct (39.6-50.0) % MCH (27.0-32.0) pg MCHC (32.0-37.0) g/dL RDW (11.5-14.5) % Lymphocytes # (0.90-5.00) X 10*3/uL Est GFR (CKD-EPI) (>=60) Glucose (70-110) mg/dL POC Glucose (mg/dL) 317 H 115 H 236 H (70-110) mg/dL Calcium (8.7-10.3) mg/dL Total Protein (6.2-8.2) g/dL Albumin (3.8-4.9) g/dL Albumin/Globulin Ratio (1.60-3.17) Ratio 06/29/23 06/29/23 06/29/23 Range/Units 04:29 04:29 05:07 RBC 3.86 L (4.40-5.60) X 10*6/uL Hgb 9.1 L (13.0-17.0) g/dL Hct 31.5 L (39.6-50.0) % MCH 23.6 L (27.0-32.0) pg MCHC 28.9 L (32.0-37.0) g/dL RDW 19.6 H (11.5-14.5) % Lymphocytes # 0.85 L (0.90-5.00) X 10*3/uL Est GFR (CKD-EPI) 53 L (>=60) Glucose 190 H (70-110) mg/dL POC Glucose (mg/dL) 198 H (70-110) mg/dL Calcium 8.6 L (8.7-10.3) mg/dL Total Protein 5.9 L (6.2-8.2) g/dL Albumin 3.4 L (3.8-4.9) g/dL Albumin/Globulin Ratio 1.36 L (1.60-3.17) Ratio
[2023-06-29 13:42] VITALS: BMI 25.4
[2023-06-29 16:35] LABS: Glucose,Whole Blood 272 mg/dL (70-110)
[2023-06-29 19:56] LABS: Glucose,Whole Blood 284 mg/dL (70-110)
[2023-06-29] MEDS: MIRTAZAPINE 15 MG TAB PO SCH (20:20)
[2023-06-30 06:22] LABS: Glucose,Whole Blood 144 mg/dL (70-110)
[2023-06-30 11:52] LABS: Glucose,Whole Blood 246 mg/dL (70-110)
--- NOTE | 2023-06-30 11:52 | P.PN ---
Subjective HISTORY OF PRESENT ILLNESS: This is a 58-year-old male with a past medical history significant for coronary artery disease with previous CABG, persistent atrial fibrillation, ischemic cardiomyopathy, hypertension, hyperlipidemia, diabetes and anemia. Patient follows in the office with Dr. Ga. We have been asked to see the patient in consultation for CVA/atrial fibrillation. Patient examined at the bedside in the emergency room. Patient presented to the hospital with a chief complaint of weakness. He reports generalized weakness but worse on the right side. He states he has been having difficulty with gross motor movement with his right hand. He also reports that he was in [employer] about a week ago and fell. He is unsure if he lost consciousness at that time. Patient was hospitalized earlier this month secondary to syncope and anemia. He underwent EGD and colonoscopy with Dr. Salgado on 06/09/2023. Colonoscopy revealed internal hemorrhoids, no colitis, and melanotic stool consistent with upper GI bleed. EGD revealed acute esophageal ulceration measuring 6 mm at GE junction with bleeding, erosive esophagitis, and acute on chronic gastritis. The patient was placed on Protonix and Carafate at that time. Patient states he was previously taking Eliquis although this has been held recently secondary to his acute anemia and esophageal ulceration. He reports that he went to see Dr. Low yesterday and he was started on a new diuretic. Patient currently denies chest pain or pressure. At the time of examination, he denies shortness of breath. He does report increased swelling to his lower extremities. DIAGNOSTICS: - EKG reveals atrial fibrillation with controlled ventricular rate. T waves in inferior leads and V5V6 - Chest xray stable cardiomegaly without evidence of acute process - CT brain: Negative for acute process. Redemonstrated remote left occipital infarct. - Carotid Doppler: No significant stenosis of left ICA. Occlusion of right ICA noted. - Laboratory data: WBC 4.3. Hemoglobin 8.2. Platelet count 178. Sodium 140. Potassium 3.2. BUN 53. Creatinine 1.59. Troponin negative x 1. proBNP 3980. - Current home cardiac medications include Lipitor 80 mg daily, Zetia 10 mg daily, Lasix 40 mg twice a day, losartan 100 mg daily, amlodipine 5 mg daily, carvedilol 25 mg twice - Most recent echocardiogram obtained on 06/06/2023 revealed ejection fraction 40 to 45%, no obvious regional wall motion normalities, severe pulmonary hypertension, moderate posteriorly directed mitral regurgitation and severe tricuspid regurgitation - Cardiac catheterization performed 04/10/2022 revealed severe triple-vessel disease. Patent stent segment in the ramus intermedius and proximal left circumflex. Patent MAE to LAD. Patent SVG to OM. Chronically occluded SVG to the RCA and to the diagonal branch. Recommendations at the time was for medical management and restore sinus rhythm. - Most recent electrocardioversion 04/2019 for atrial fibrillation - Exercise stress test 11/2019 was nondiagnostic due to baseline EKG abnormalities 06/24/2023 Patient examined this morning at the bedside. Patient denies chest pain or pressure. Denies SOB. He continues to have lower extremity edema but improved from yesterday. Kidney function remains stable. Creatinine 1.44. Vital signs are stable. 06/25/2023 Patient examined this morning at bedside. Patient denies chest pain or pressure. He reports improvement in his shortness of breath. He continues to have lower extremity edema. He remains on IV Lasix. Patient's blood pressure running slightly on the higher side. June 28, 2023 The patient was seen and evaluated this morning. He remains stable. Right- sided weakness has been somewhat better. Currently he is on oral anticoagulation using Eliquis. No pain in the chest and no shortness of breath and no dizziness or lightheadedness and no heart racing or fluttering. He is in atrial fibrillation with controlled heart rate. The examination is remarkable for irregular rhythm with clear breathing sounds bilaterally. June 29, 2023 The patient was seen and evaluated this morning. He is stable from a cardiovascular standpoint of view. He still have right-sided weakness/numbness which has not improved significantly compared to before. The pressure appears to be under good control on the current medical regimen. He is back on antiplatelet as well as oral anticoagulation. Examination is remarkable for regular rhythm with clear breathing sounds bilaterally and no edema was noted. 06/30/2023 Patient examined this morning the bedside. Patient denies chest pain or pressure. He denies shortness of breath. Vital signs are stable. Per nursing, patient is awaiting an insurance authorization for discharge to inpatient rehab. PHYSICAL EXAM: VITAL SIGNS: Reviewed. GENERAL: Well-developed in no acute distress. HEENT: Head is normocephalic. Pupils are equal, round. Sclerae anicteric. Mucous membranes of the mouth are moist. Neck supple. No JVD or thyromegaly LUNGS: Respirations even and unlabored. Lungs essentially clear to auscultation bilaterally. HEART: Irregular rate and rhythm. S1 and S2 heard. Systolic murmur noted. ABDOMEN: Soft. Nondistended. Nontender. EXTREMITIES: Normal range of motion. No clubbing or cyanosis. Peripheral pulses intact. 2+ bilateral pitting lower extremity edema NEUROLOGIC: Awake and alert. Oriented x 3. ASSESSMENT: CVA, noted on MRI Persistent atrial fibrillation with controlled ventricular rate, not anticoagulated on an outpatient basis due to recent anemia History of anemia, status post EGD and colonoscopy, revealing acute esophageal ulceration with bleeding, 06/09/2023 Acute on chronic heart failure with decreased EF, 40 to 45% Remote left occipital infarct, per CT brain Right ICA occlusion Coronary artery disease with previous CABG (2006) and subsequent stenting Ischemic cardiomyopathy, 40 to 45% Hypertension Hyperlipidemia Diabetes Valvular heart disease including moderate MR and severe TR Severe pulmonary hypertension PLAN: Continue current cardiac medications Patient is currently stable for discharge from a cardiac standpoint We will sign off. Please reconsult if needed. Nurse practitioner note has been reviewed by physician. Signing provider agrees with the documented findings, assessment, and plan of care documented by [employer] as a scribe. Objective - Vital Signs Vital signs: Vital Signs Temp 98.7 F 06/30/23 07:02 Pulse 70 06/30/23 07:02 Resp 18 06/30/23 07:02 BP 157/87 06/30/23 07:02 Pulse Ox 95 06/30/23 07:02 FiO2 Intake & Output 06/29/23 06/30/23 06/30/23 18:59 06:59 18:59 Intake Total 850 Output Total 1800 2049 Balance -950 -2049 Weight 73.7 kg Intake: Oral 850 Output: Urine 1800 2049 - Labs CBC & Chem 7: 06/29/23 04:29 06/29/23 04:29 Labs: Abnormal Lab Results - Last 24 Hours (Table) 06/29/23 06/29/23 06/29/23 Range/Units 12:33 16:33 19:55 POC Glucose (mg/dL) 129 H 272 H 284 H (70-110) mg/dL 06/30/23 Range/Units 06:20 POC Glucose (mg/dL) 144 H (70-110) mg/dL
[2023-06-30 16:48] LABS: Glucose,Whole Blood 143 mg/dL (70-110)
--- NOTE | 2023-06-30 20:16 | P.PN ---
Subjective Progress Note Date: 06/30/23 HISTORY OF PRESENT ILLNESS: This is a 58-year-old male patient of rosita and Dr. Ga with past medical history of coronary artery disease status post 6 vessel CABG 2006 with MAE to LAD, saphenous venous graft to the PDA, saphenous venous graft to the obtuse marginal one, radial artery to the obtuse marginal branch 2 and saphenous venous graft to the obtuse marginal 3 followed by heart catheterization with PCI and stent of the saphenous venous graft to the RCA in 2015 at which time he pres ented with non-ST elevated myocardial infarction. Most recent cardiac catheterization was performed on 04/10/2022 which revealed severe triple-vessel coronary artery disease with a patent ramus intermediate, patent SVG to the OM, patent MAE to the LAD, and occluded saphenous vein graft to the RCA which is chronic from before. Medical therapy was advised at that time. History of hypertension, hypertensive cardiovascular disease with left ventricular hypertrophy, hyperlipidemia, ischemic cardiomyopathy, paroxysmal atrial fibrillation, currently on Eliquis, diabetes mellitus type 2 with diabetic polyneuropathy, hyperlipidemia, asthma, obstructive sleep apnea on CPAP, chronic low back pain, DVT in the past, patient was recently hospitalized at [facility] between 06/05/2023 and discharged 06/15/2023 after he was admitted for GI bleed due to esophageal ulcer. Patient had EGD and incomplete colonoscopy due to poor prep at that time. He was seen in the ER on 04/20/2023 for weakness. I s aw him 06/21/2023 and he was supposed to go back on Eliquis 5 mg po bid. Now, patient showed up to the ER with weakness, right sided facial droop, and right- sided drift. He had CT scan of the brain that showed right occipital infarct, was given ASA 325 mg in the ER and CXR that showed cardiomegaly. Labs revealed stable anemia at 9.1, elevated BUN and creatinine. Patient was restarted on Eliquis 5 mg po bid and ASA 81 mg po daily. Neurology consultation was obtained along with cardiology consult, PT/O and speech therapy. We will consult social science analyst for discharge planning. 06/23: Patient is sitting up in bed. He looks much better today, right-sided weakness slightly improved, right-sided facial droop remains. MRI brain reveals acute/subacute CVA involving the left chelsey. Continue Eliquis 5 mg PO twice daily and aspirin 81 mg PO daily, Lipitor 80 mg PO daily, and Zetia 10 mg PO daily. Hemoglobin has improved to 9.3, potassium 3.3 continue potassium chloride 20 mEq twice daily. Consultation for inpatient rehab has been placed, discharge plan pending rehabilitation recommendation. Patient remains a no code at this time. 06/24: Patient is sitting up on the edge of the bed. Continue Eliquis 5 mg p.o. twice daily, aspirin 81 mg p.o. daily, Lipitor 80 mg p.o. daily, and Zetia 10 mg p.o. daily. Continue Lasix 40 mg IV push every 12 hours. Patient has been accepted to the rehabilitation unit at [facility] pending authorization. Patient likely to be discharged on Wednesday. Patient is a no code. 06/25: Patient is sitting up in bed he is feeling a bit better today, he denies any chest pain, or any shortness of breath, he continues to be somewhat weaker in the right upper extremity and right lower extremity, his slurred speech is better today, he denies any difficulty in swallowing at this time, he seems to be tolerating diet very well, he continues to work with speech therapy physical therapy and Occupational Therapy, we are waiting for the final prior author ization for the patient to be transferred to inpatient rehabilitation at [facility] he was seen and evaluated by physical therapy and rehabilitative medicine at [facility]. 06/26: Patient is sitting up in bed eating his breakfast, he is in better spirits today, he denies any chest pain, shortness of breath, his blood glucose level in the morning was 109, he denies any abdominal pain, he is going to the bathroom okay, he continues to work with physical therapy, he continues to be a bit weak in the right upper extremity, he will continue to work with physical therapy occupational therapy speech therapy, and the plan is to transfer the patient to [facility] tomorrow morning for physical therapy and rehabilitation 06/27: Patient is laying down in bed in no apparent distress, he denies any chest pain, shortness of breath, he has no abdominal pain, he has good bowel movement, he is urinating well, we are still awaiting the prior authorization for the patient to be transferred to inpatient rehabilitation at [facility], once that is approved patient can be transferred. 06/27: Patient is laying down in bed appears to be somewhat anxious today, he continues to be somewhat depressed as well, he denies any chest pain, he has no shortness of breath, he continues to be in and out of atrial fibrillation, he is currently on Eliquis 5 mg orally twice every day, continue with to work with physical therapy and Occupational Therapy was still awaiting prior authorization for from his insurance to be transferred to inpatient rehabilitation if there is no authorization patient should be transferred to [facility] hopefully in the next 24 hours. I will start the patient on mirtazapine 7.5 mg at bedtime to help the patient's sleep better, and also to help with his mood disorder. 06/29: Patient appears to be quite depressed and slow today, he continues to have significant slurred speech, he is not moving around as much, he continues to f ollow with physical therapy and Occupational Therapy, we are still awaiting the prior authorization from insurance company for the patient to be transferred to inpatient rehabilitation at [facility], patient did not sleep very well yesterday, discontinue mirtazapine, start the patient on sertraline 50 mg at bedtime, continue with Xanax as needed 0.25 mg twice every day, we will follow-up with the patient very closely REVIEW OF SYSTEMS: Constitutional: No documented fever, no chills, no night sweats. No weight change. Positive for weakness, positive for fatigue, no lethargy. No daytime sleepiness. HEENT: No headache. No blurred vision or double vision, no loss of vision. No loss of Hearing, no ringing in the ears, no dizziness. No nasal drainage or congestion. No epistaxis. No sore throat. Minimal slurred speech. Lungs: positive for shortness of breath, no cough, or sputum production. no wheezing. Reports dyspnea with activity. Cardiovascular: no chest pain, positive for mild lower extremity edema. No palpitations. No paroxysmal nocturnal dyspnea. No orthopnea. positive for lightheadedness or dizziness. No syncopal episodes. Abdominal: Reports no abdominal pain. no nausea, vomiting. No diarrhea. No constipation. No bloody or tarry stools reports loss of appetite. Genitourinary: No dysuria, increased frequency, urgency. No urinary retention. Musculoskeletal: No myalgias. positive for muscle weakness, positive gait dysfunction, frequent falls. No back pain. No neck pain. Appear weak on the right upper and lower extremity with a drift. Integumentary: healed forehead wound , no lesions. No rash or pruritus. No unusual bruising. No change in hair or nails. Neurologic: No aphasia. Minimal facial droop. No change in mentation. No head injury. No headache, minimal drift. Psychiatric: positive for depression. No anxiety. No mood swings. Endocrine: abnormal blood sugars. No weight change. PHYSICAL EXAMINATION: General: 58-year-old male laying down in no distress. HEENT: Head is atraumatic, mild right-sided facial weakness, pupils were equal round reactive to light and recommendation, extraocular muscle movement were intact, sclera nonicteric, conjunctivae were pale, mucous membranes of the mouth are somewhat dry. Neck: Supple, no JVP, decreased carotid upstroke bilaterally, no lymphadenopathy. Chest: Decreased breath sounds at the bases, few rhonchi no expirratory wheezes,, no chest wall tenderness, no intercostal retractions. Heart: First heart sound is normal, second heart sounds normal, there is systolic ejection murmur 2/6 located in the left sternal border. Abdomen: Soft, nontender, nondistended, positive bowel sounds, there is no hepatosplenomegaly Extremities: There is +1 edema no calf tenderness DP +1 bilaterally. Neurologic examination: Patient is awake alert and oriented X 3, cranial nerves II-12 appear grossly intact, muscle power were 4 out of 5 in in right upper extremity and right lower extremity with drift, minimal right-sided facial weakness, minimal slurred speech, left upper extremity was 5 out of 5 left lower extremity was 5 out of 5. Babinski's were positive on the right side. ASSESSMENT AND PLAN: 1. Acute ischemic CVA in the chelsey. Continue Eliquis 5 mg PO twice, daily aspirin 81 mg daily, continue Lipitor 80 mg PO daily, and Zetia 10 mg PO daily. Patient just had an echocardiogram last month and it did show evidence of moderate LV dysfunction with moderate MR and severe pulmonary hypertension. We will consult PT/OT/ST and cardiology as well. MRI brain with and without OLIMPIA reveals acute subacute CVA left chelsey. Monitor the patient very closely, try to transfer the patient to inpatient rehabilitation at [facility] when prior authorization is available. 2. Acute kidney injury on CKD3a. back to baseline continue to monitor the pa ramakrishna very closely. His oral intake of fluid. 3. Hypertension and hypertensive cardiovascular disease. Continue the patient on losartan 100 mg orally once every day, continue patient on Carvedilol 25 mg orally twice every day, continue Amlodipine 5 mg po daily and monitor BP very closely. 4. Diabetes mellitus type 2. Continue patient on Lantus and increase to 27 units at bedtime along with a sliding scale insulin, we will continue with Humalog 7 units before each meal, discontinue Metformin and Farxiga 10 mg po daily. 5. Coronary artery disease status post CABG 6 as well as PCI in the past. Continue patient on ASA 81 mg once every day, Carvedilol 25 mg orally twice every day, continue patient on atorvastatin 80 mg orally once every day, continue Zetia 10 mg orally once every day. 6. Hyperlipidemia. Continue patient on atorvastatin 80 mg once every day, continue Zetia 10 mg orally once every day, monitor lipid panel, keep LDL 55-70. 7. Diabetic polyneuropathy. Patient was taken off gabapentin for now. 8. Obstructive sleep apnea. Patient does have a CPAP at home. 9. Chronic systolic heart failure. Continue with furosemide 40 mg orally twice every day, Carvedilol 25 mg po bid and add Farxiga 10 mg po daily. 10. Paroxysmal atrial fibrillation . Continue patient on Coreg 25 mg orally twice every day, Eliquis 5 mg po bid. losartan 100 mg orally once every day. 11. DVT prophylaxis. Continue Eliquis 5 mg orally twice every day. 12. GI prophylaxis. Continue Protonix 40 mg orally bid along with Carafate 1 g orally 2 times every day. 13. Chronic blood loss anemia due to esophageal ulcer post EGD last month. We will continue with iron 325 mg po bid, protonix 40 mg po bid and Carafate 1 gr po tid. 14. Patient is a no code. 15. Discharge to inpatient rehab when authorization is available. 16. Anxiety/depressive disorder. Patient is currently on Xanax 0.25 mg orally twice every day discontinue mirtazapine and start the patient on sertraline 50 mg at bedtime, we will follow-up with the patient very closely, 17. Overall prognosis is very guarded. Objective - Vital Signs Vital signs: Vital Signs Temp 98.7 F 06/30/23 07:02 Pulse 70 06/30/23 07:02 Resp 18 06/30/23 07:02 BP 157/87 06/30/23 07:02 Pulse Ox 95 06/30/23 07:02 FiO2 Intake & Output 06/29/23 06/30/23 06/30/23 18:59 06:59 18:59 Intake Total 850 Output Total 1800 2049 Balance -950 -2049 Weight 73.7 kg Intake: Oral 850 Output: Urine 1800 2049 - Labs CBC & Chem 7: 06/29/23 04:29 06/29/23 04:29 Labs: Abnormal Lab Results - Last 24 Hours (Table) 06/29/23 06/29/23 06/30/23 Range/Units 16:33 19:55 06:20 POC Glucose (mg/dL) 272 H 284 H 144 H (70-110) mg/dL 06/30/23 Range/Units 11:50 POC Glucose (mg/dL) 246 H (70-110) mg/dL
[2023-06-30] MEDS: SERTRALINE 50 MG TAB PO SCH (20:40)
[2023-06-30] MEDS: INSULIN DETEMIR (LEVEMIR) 100 UNIT/ML SYR SQ SCH (20:46)
[2023-06-30 20:47] LABS: Glucose,Whole Blood 204 mg/dL (70-110)
[2023-07-01 05:52] LABS: Glucose,Whole Blood 209 mg/dL (70-110)
[2023-07-01 11:57] LABS: Glucose,Whole Blood 165 mg/dL (70-110)
[2023-07-01 16:33] LABS: Glucose,Whole Blood 137 mg/dL (70-110)
--- NOTE | 2023-07-01 18:04 | P.PN ---
Subjective Progress Note Date: 07/01/23 HISTORY OF PRESENT ILLNESS: This is a 58-year-old male patient of rosita and Dr. Ga with past medical history of coronary artery disease status post 6 vessel CABG 2006 with MAE to LAD, saphenous venous graft to the PDA, saphenous venous graft to the obtuse marginal one, radial artery to the obtuse marginal branch 2 and saphenous venous graft to the obtuse marginal 3 followed by heart catheterization with PCI and stent of the saphenous venous graft to the RCA in 2015 at which time he pres ented with non-ST elevated myocardial infarction. Most recent cardiac catheterization was performed on 04/10/2022 which revealed severe triple-vessel coronary artery disease with a patent ramus intermediate, patent SVG to the OM, patent MAE to the LAD, and occluded saphenous vein graft to the RCA which is chronic from before. Medical therapy was advised at that time. History of hypertension, hypertensive cardiovascular disease with left ventricular hypertrophy, hyperlipidemia, ischemic cardiomyopathy, paroxysmal atrial fibrillation, currently on Eliquis, diabetes mellitus type 2 with diabetic polyneuropathy, hyperlipidemia, asthma, obstructive sleep apnea on CPAP, chronic low back pain, DVT in the past, patient was recently hospitalized at [facility] between 06/05/2023 and discharged 06/15/2023 after he was admitted for GI bleed due to esophageal ulcer. Patient had EGD and incomplete colonoscopy due to poor prep at that time. He was seen in the ER on 04/20/2023 for weakness. I s aw him 06/21/2023 and he was supposed to go back on Eliquis 5 mg po bid. Now, patient showed up to the ER with weakness, right sided facial droop, and right- sided drift. He had CT scan of the brain that showed right occipital infarct, was given ASA 325 mg in the ER and CXR that showed cardiomegaly. Labs revealed stable anemia at 9.1, elevated BUN and creatinine. Patient was restarted on Eliquis 5 mg po bid and ASA 81 mg po daily. Neurology consultation was obtained along with cardiology consult, PT/O and speech therapy. We will consult social media specialist for discharge planning. 06/23: Patient is sitting up in bed. He looks much better today, right-sided weakness slightly improved, right-sided facial droop remains. MRI brain reveals acute/subacute CVA involving the left chelsey. Continue Eliquis 5 mg PO twice daily and aspirin 81 mg PO daily, Lipitor 80 mg PO daily, and Zetia 10 mg PO daily. Hemoglobin has improved to 9.3, potassium 3.3 continue potassium chloride 20 mEq twice daily. Consultation for inpatient rehab has been placed, discharge plan pending rehabilitation recommendation. Patient remains a no code at this time. 06/24: Patient is sitting up on the edge of the bed. Continue Eliquis 5 mg p.o. twice daily, aspirin 81 mg p.o. daily, Lipitor 80 mg p.o. daily, and Zetia 10 mg p.o. daily. Continue Lasix 40 mg IV push every 12 hours. Patient has been accepted to the rehabilitation unit at [facility] pending authorization. Patient likely to be discharged on Wednesday. Patient is a no code. 06/25: Patient is sitting up in bed he is feeling a bit better today, he denies any chest pain, or any shortness of breath, he continues to be somewhat weaker in the right upper extremity and right lower extremity, his slurred speech is better today, he denies any difficulty in swallowing at this time, he seems to be tolerating diet very well, he continues to work with speech therapy physical therapy and Occupational Therapy, we are waiting for the final prior author ization for the patient to be transferred to inpatient rehabilitation at [facility] he was seen and evaluated by physical therapy and rehabilitative medicine at [facility]. 06/26: Patient is sitting up in bed eating his breakfast, he is in better spirits today, he denies any chest pain, shortness of breath, his blood glucose level in the morning was 109, he denies any abdominal pain, he is going to the bathroom okay, he continues to work with physical therapy, he continues to be a bit weak in the right upper extremity, he will continue to work with physical therapy occupational therapy speech therapy, and the plan is to transfer the patient to [facility] tomorrow morning for physical therapy and rehabilitation 06/27: Patient is laying down in bed in no apparent distress, he denies any chest pain, shortness of breath, he has no abdominal pain, he has good bowel movement, he is urinating well, we are still awaiting the prior authorization for the patient to be transferred to inpatient rehabilitation at [facility], once that is approved patient can be transferred. 06/27: Patient is laying down in bed appears to be somewhat anxious today, he continues to be somewhat depressed as well, he denies any chest pain, he has no shortness of breath, he continues to be in and out of atrial fibrillation, he is currently on Eliquis 5 mg orally twice every day, continue with to work with physical therapy and Occupational Therapy was still awaiting prior authorization for from his insurance to be transferred to inpatient rehabilitation if there is no authorization patient should be transferred to [facility] hopefully in the next 24 hours. I will start the patient on mirtazapine 7.5 mg at bedtime to help the patient's sleep better, and also to help with his mood disorder. 06/29: Patient appears to be quite depressed and slow today, he continues to have significant slurred speech, he is not moving around as much, he continues to f ollow with physical therapy and Occupational Therapy, we are still awaiting the prior authorization from insurance company for the patient to be transferred to inpatient rehabilitation at [facility], patient did not sleep very well yesterday, discontinue mirtazapine, start the patient on sertraline 50 mg at bedtime, continue with Xanax as needed 0.25 mg twice every day, we will follow-up with the patient very closely 06/30: Patient is feeling better today, he is eating lunch, he denies any chest pain, he has no shortness of breath, he is clear speech is better today, he continues to be on Eliquis 5 mg orally twice every day, continues to follow-up with physical therapy and Occupational Therapy, so far no words on the insurance authorization for the patient to be transferred to inpatient rehabilitation, we will monitor for another 24 hours, hopefully will get the authorization in the next 24 hours. Patient is ready to be discharged when authorization is available. Patient has slept better last night, he is feeling a bit better since he was started on sertraline 50 mg orally at bedtime. REVIEW OF SYSTEMS: Constitutional: No documented fever, no chills, no night sweats. No weight change. Positive for weakness, positive for fatigue, no lethargy. No daytime sleepiness. HEENT: No headache. No blurred vision or double vision, no loss of vision. No loss of Hearing, no ringing in the ears, no dizziness. No nasal drainage or congestion. No epistaxis. No sore throat. Minimal slurred speech. Lungs: positive for shortness of breath, no cough, or sputum production. no wheezing. Reports dyspnea with activity. Cardiovascular: no chest pain, positive for mild lower extremity edema. No palpitations. No paroxysmal nocturnal dyspnea. No orthopnea. positive for lightheadedness or dizziness. No syncopal episodes. Abdominal: Reports no abdominal pain. no nausea, vomiting. No diarrhea. No constipation. No bloody or tarry stools reports loss of appetite. Genitourinary: No dysuria, increased frequency, urgency. No urinary retention. Musculoskeletal: No myalgias. positive for muscle weakness, positive gait dysfunction, frequent falls. No back pain. No neck pain. Appear weak on the right upper and lower extremity with a drift. Integumentary: healed forehead wound , no lesions. No rash or pruritus. No unusual bruising. No change in hair or nails. Neurologic: No aphasia. Minimal facial droop. No change in mentation. No head injury. No headache, minimal drift. Psychiatric: positive for depression. No anxiety. No mood swings. Endocrine: abnormal blood sugars. No weight change. PHYSICAL EXAMINATION: General: 58-year-old male laying down in no distress. HEENT: Head is atraumatic, mild right-sided facial weakness, pupils were equal round reactive to light and recommendation, extraocular muscle movement were intact, sclera nonicteric, conjunctivae were pale, mucous membranes of the mouth are somewhat dry. Neck: Supple, no JVP, decreased carotid upstroke bilaterally, no lymphadenopathy. Chest: Decreased breath sounds at the bases, few rhonchi no expirratory wheezes,, no chest wall tenderness, no intercostal retractions. Heart: First heart sound is normal, second heart sounds normal, there is systolic ejection murmur 2/6 located in the left sternal border. Abdomen: Soft, nontender, nondistended, positive bowel sounds, there is no hepatosplenomegaly Extremities: There is +1 edema no calf tenderness DP +1 bilaterally. Neurologic examination: Patient is awake alert and oriented X 3, cranial nerves II-12 appear grossly intact, muscle power were 4 out of 5 in in right upper extremity and right lower extremity with drift, minimal right-sided facial weakness, minimal slurred speech, left upper extremity was 5 out of 5 left lower extremity was 5 out of 5. Babinski's were positive on the right side. ASSESSMENT AND PLAN: 1. Acute ischemic CVA in the chelsey. Continue Eliquis 5 mg PO twice, daily aspirin 81 mg daily, continue Lipitor 80 mg PO daily, and Zetia 10 mg PO daily. Patient just had an echocardiogram last month and it did show evidence of moderate LV dysfunction with moderate MR and severe pulmonary hypertension. We will consult PT/OT/ST and cardiology as well. MRI brain with and without OLIMPIA reveals acute subacute CVA left chelsey. Monitor the patient very closely, try to transfer the patient to inpatient rehabilitation at [facility] when prior authorization is available. 2. Acute kidney injury on CKD3a. back to baseline continue to monitor the patient very closely. His oral intake of fluid. 3. Hypertension and hypertensive cardiovascular disease. Continue the patient on losartan 100 mg orally once every day, continue patient on Carvedilol 25 mg orally twice every day, continue Amlodipine 5 mg po daily and monitor BP very closely. 4. Diabetes mellitus type 2. Continue patient on Lantus and increase to 27 units at bedtime along with a sliding scale insulin, we will continue with Humalog 7 units before each meal, discontinue Metformin and Farxiga 10 mg po daily. 5. Coronary artery disease status post CABG 6 as well as PCI in the past. Continue patient on ASA 81 mg once every day, Carvedilol 25 mg orally twice every day, continue patient on atorvastatin 80 mg orally once every day, continue Zetia 10 mg orally once every day. 6. Hyperlipidemia. Continue patient on atorvastatin 80 mg once every day, continue Zetia 10 mg orally once every day, monitor lipid panel, keep LDL 55-70. 7. Diabetic polyneuropathy. Patient was taken off gabapentin for now. 8. Obstructive sleep apnea. Patient does have a CPAP at home. 9. Chronic systolic heart failure. Continue with furosemide 40 mg orally twice every day, Carvedilol 25 mg po bid and add Farxiga 10 mg po daily. 10. Paroxysmal atrial fibrillation . Continue patient on Coreg 25 mg orally twice every day, Eliquis 5 mg po bid. losartan 100 mg orally once every day. 11. DVT prophylaxis. Continue Eliquis 5 mg orally twice every day. 12. GI prophylaxis. Continue Protonix 40 mg orally bid along with Carafate 1 g orally 2 times every day. 13. Chronic blood loss anemia due to esophageal ulcer post EGD last month. We will continue with iron 325 mg po bid, protonix 40 mg po bid and Carafate 1 gr po tid. 14. Patient is a no code. 15. Discharge to inpatient rehab when authorization is available. 16. Anxiety/depressive disorder. Patient is currently on Xanax 0.25 mg orally twice every day as needed, continue sertraline 50 mg at bedtime as well. Patient seems to be tolerating treatment very well. 17. Overall prognosis is very guarded. 18. Transfer to inpatient rehabilitation when authorization becomes available. Objective - Vital Signs Vital signs: Vital Signs Temp 97.9 F 07/01/23 14:37 Pulse 67 07/01/23 14:37 Resp 17 07/01/23 14:37 BP 137/71 07/01/23 14:37 Pulse Ox 97 07/01/23 14:37 FiO2 Intake & Output 06/30/23 07/01/23 07/01/23 18:59 06:59 18:59 Output Total 425 2200 325 Balance -425 -2200 -325 Output: Urine 425 2200 325 Other: # Voids 3 3 3 # Bowel Movements 1 - Labs CBC & Chem 7: 06/29/23 04:29 06/29/23 04:29 Labs: Abnormal Lab Results - Last 24 Hours (Table) 06/30/23 07/01/23 07/01/23 Range/Units 20:46 05:50 11:56 POC Glucose (mg/dL) 204 H 209 H 165 H (70-110) mg/dL 07/01/23 Range/Units 16:32 POC Glucose (mg/dL) 137 H (70-110) mg/dL
[2023-07-01 19:32] LABS: Glucose,Whole Blood 192 mg/dL (70-110)
[2023-07-02] MEDS: NITROGLYCERIN SL TABS 0.4 MG TAB SUBLINGUAL STA (00:46)
[2023-07-02] MEDS ORDERED: NITROGLYCERIN OINT 1 INCH/GM PACKET TOPICAL PRN (01:08)
[2023-07-02] MEDS ORDERED: ONDANSETRON 4 MG/2 ML VIAL IVP PRN (01:41)
[2023-07-02] MEDS: MORPHINE SULFATE 4 MG/ML SYRINGE IVP PRN (01:45)
[2023-07-02 05:35] LABS: Glucose,Whole Blood 298 mg/dL (70-110)
[2023-07-02 08:44] LABS: Basophils # (A) 0.05 X 10*3/uL (0.00-0.10); Basophils % (A) 0.5 %; Eosinophils # (A) 0.29 X 10*3/uL (0.04-0.35); Eosinophils % (A) 2.7 %; HGB 10.2 g/dL (13.0-17.0); Lymphocytes # (A) 0.61 X 10*3/uL (0.90-5.00); Lymphocytes % (A) 5.8 %; MCH 24.4 pg (27.0-32.0); MCHC 29.1 g/dL (32.0-37.0); MCV 83.7 FL (80.0-97.0); Mean Platelet Volume 10.8 FL (9.5-12.2); Monocytes % (A) 10.4 %; NRBC Per 100 WBC 0 X 10*3/uL (0.00-0.01); Neutrophils # (A) 8.49 X 10*3/uL (1.80-7.70); Neutrophils % (A) 80.2 %; Platelet Count 279 X 10*3/uL (140-440); RBC 4.18 X 10*6/uL (4.40-5.60); RDW 20.2 % (11.5-14.5); WBC 10.58 X 10*3/uL (4.50-10.00)
[2023-07-02 09:10] LABS: ALT 22 U/L (10-49); AST 19 U/L (14-35); Albumin 3.6 g/dL (3.8-4.9); Albumin/Globulin Ratio 1.33 Ratio (1.60-3.17); Alkaline Phosphatase 69 U/L (41-126); BUN/Creat Ratio 20.47 Ratio (12.00-20.00); Blood Urea Nitrogen 30.7 mg/dL (9.0-27.0); Calcium 8.7 mg/dL (8.7-10.3); Carbon Dioxide 25.4 mmol/L (21.6-31.8); Chloride 109 mmol/L (96-109); Globulin 2.7 g/dL (1.6-3.3); Glucose 298 mg/dL (70-110); Potassium 3.6 mmol/L (3.5-5.5); Sodium 146 mmol/L (135-145); Total Bilirubin 0.4 mg/dL (0.3-1.2); Total Protein 6.3 g/dL (6.2-8.2)
[2023-07-02 11:36] LABS: Glucose,Whole Blood 199 mg/dL (70-110)
--- NOTE | 2023-07-02 13:29 | P.DS ---
Providers Date of admission: 06/22/23 21:22 Expected date of discharge: 07/02/23 Attending physician: Kelly Montesinos Consults: 06/22/23 21:21 Consult Physician Routine Consulting Provider: Sabina Montero Consult Reason/Comments: CVA Do you want consulting provider notified?: Yes 06/24/23 09:18 Consult Physician Routine Consulting Provider: Yobani Wyman Consult Reason/Comments: inpatient rehab assessment Do you want consulting provider notified?: Yes Primary care physician: Kelly Montesinos Hospital Course: HISTORY OF PRESENT ILLNESS: This is a 58-year-old male patient of rosita and Dr. Ga with past medical history of coronary artery disease status post 6 vessel CABG 2006 with MAE to LAD, saphenous venous graft to the PDA, saphenous venous graft to the obtuse marginal one, radial artery to the obtuse marginal branch 2 and saphenous venous graft to the obtuse marginal 3 followed by heart catheterization with PCI and stent of the saphenous venous graft to the RCA in 2015 at which time he presented with non-ST elevated myocardial infarction. Most recent cardiac catheterization was performed on 04/10/2022 which revealed severe triple-vessel coronary artery disease with a patent ramus intermediate, patent SVG to the OM, patent MAE to the LAD, and occluded saphenous vein graft to the RCA which is chronic from before. Medical therapy was advised at that time. History of hypertension, hypertensive cardiovascular disease with left ventricular hypertrophy, hyperlipidemia, ischemic cardiomyopathy, paroxysmal atrial fibrillation, currently on Eliquis, diabetes mellitus type 2 with diabetic polyneuropathy, hyperlipidemia, asthma, obstructive sleep apnea on CPAP, chronic low back pain, DVT in the past, patient was recently hospitalized at [facility] between 06/05/2023 and discharged 06/15/2023 after he was admitted for GI bleed due to esophageal ulcer. Patient had EGD and incomplete colonoscopy due to poor prep at that time. He was seen in the ER on 04/20/2023 for weakness. I saw him 06/21/2023 and he was supposed to go back on Eliquis 5 mg po bid. Now, patient showed up to the ER with weakness, right sided facial droop, and right- sided drift. He had CT scan of the brain that showed right occipital infarct, was given ASA 325 mg in the ER and CXR that showed cardiomegaly. Labs revealed stable anemia at 9.1, elevated BUN and creatinine. Patient was restarted on Eliquis 5 mg po bid and ASA 81 mg po daily. Neurology consultation was obtained along with cardiology consult, PT/O and speech therapy. We will consult rn social work for discharge planning. 06/23: Patient is sitting up in bed. He looks much better today, right-sided weakness slightly improved, right-sided facial droop remains. MRI brain reveals acute/subacute CVA involving the left chelsey. Continue Eliquis 5 mg PO twice daily and aspirin 81 mg PO daily, Lipitor 80 mg PO daily, and Zetia 10 mg PO daily. Hemoglobin has improved to 9.3, potassium 3.3 continue potassium chloride 20 mEq twice daily. Consultation for inpatient rehab has been placed, discharge plan pending rehabilitation recommendation. Patient remains a no code at this time. 06/24: Patient is sitting up on the edge of the bed. Continue Eliquis 5 mg p.o. twice daily, aspirin 81 mg p.o. daily, Lipitor 80 mg p.o. daily, and Zetia 10 mg p.o. daily. Continue Lasix 40 mg IV push every 12 hours. Patient has been accepted to the rehabilitation unit at [facility] pending authorization. Patient likely to be discharged on Wednesday. Patient is a no code. 06/25: Patient is sitting up in bed he is feeling a bit better today, he denies any chest pain, or any shortness of breath, he continues to be somewhat weaker in the right upper extremity and right lower extremity, his slurred speech is b gabrielle today, he denies any difficulty in swallowing at this time, he seems to be tolerating diet very well, he continues to work with speech therapy physical therapy and Occupational Therapy, we are waiting for the final prior authorization for the patient to be transferred to inpatient rehabilitation at [facility] he was seen and evaluated by physical therapy and rehabilitative medicine at [facility]. 06/26: Patient is sitting up in bed eating his breakfast, he is in better spirits today, he denies any chest pain, shortness of breath, his blood glucose level in the morning was 109, he denies any abdominal pain, he is going to the bathroom okay, he continues to work with physical therapy, he continues to be a bit weak in the right upper extremity, he will continue to work with physical therapy occupational therapy speech therapy, and the plan is to transfer the patient to [facility] tomorrow morning for physical therapy and rehabilitation 06/27: Patient is laying down in bed in no apparent distress, he denies any chest pain, shortness of breath, he has no abdominal pain, he has good bowel movement, he is urinating well, we are still awaiting the prior authorization for the patient to be transferred to inpatient rehabilitation at [facility], once that is approved patient can be transferred. 06/27: Patient is laying down in bed appears to be somewhat anxious today, he continues to be somewhat depressed as well, he denies any chest pain, he has no shortness of breath, he continues to be in and out of atrial fibrillation, he is currently on Eliquis 5 mg orally twice every day, continue with to work with physical therapy and Occupational Therapy was still awaiting prior authorization for from his insurance to be transferred to inpatient rehabilitation if there is no authorization patient should be transferred to [facility] hopefully in the next 24 hours. I will start the patient on mirtazapine 7.5 mg at bedtime to help the patient's sleep better, and also to help with his mood disorder. 06/29: Patient appears to be quite depressed and slow today, he continues to have significant slurred speech, he is not moving around as much, he continues to follow with physical therapy and Occupational Therapy, we are still awaiting the prior authorization from insurance company for the patient to be transferred to inpatient rehabilitation at [facility], patient did not sleep very well yesterday, discontinue mirtazapine, start the patient on sertraline 50 mg at bedtime, continue with Xanax as needed 0.25 mg twice every day, we will follow-up with the patient very closely 06/30: Patient is feeling better today, he is eating lunch, he denies any chest pain, he has no shortness of breath, he is clear speech is better today, he continues to be on Eliquis 5 mg orally twice every day, continues to follow-up with physical therapy and Occupational Therapy, so far no words on the insurance authorization for the patient to be transferred to inpatient rehabilitation, we will monitor for another 24 hours, hopefully will get the authorization in the next 24 hours. Patient is ready to be discharged when authorization is available. Patient has slept better last night, he is feeling a bit better since he was started on sertraline 50 mg orally at bedtime. 07/01 Insurance authorization has been obtained today for inpatient rehab. Patient will be discharged to [facility] once all arrangements are completed. DISCHARGE DIAGNOSES: 1. Acute ischemic CVA in the chelsey. 2. Acute kidney injury on CKD3a. 3. Hypertension and hypertensive cardiovascular disease. 4. Diabetes mellitus type 2. 5. Coronary artery disease status post CABG 6 as well as PCI in the past. 6. Hyperlipidemia. 7. Diabetic polyneuropathy. 8. Obstructive sleep apnea. 9. Chronic systolic heart failure. 10. Paroxysmal atrial fibrillation. 11. Chronic blood loss anemia due to esophageal ulcer post EGD last month. 12. Anxiety/depressive disorder. Greater than 35 minutes was utilized and coordinating patient's discharge. Impression and plan of care have been directed as dictated by the signing physician. Dipika Mendez nurse practitioner acting as scribe for signing physician. Patient Condition at Discharge: Stable Plan - Discharge Summary Discharge Rx Participant: No New Discharge Prescriptions: New Dapagliflozin Propanediol [Farxiga] 10 mg PO DAILY tab INSULIN ASPART (NovoLOG) [NovoLOG (formulary)] 0 unit SQ AC-TID each ALPRAZolam [Xanax] 0.25 mg PO TID PRN tab PRN Reason: Agitation Or Acute Anxiety hydrALAZINE HCL [Apresoline] 75 mg PO TID #90 tab Aspirin 81 mg PO DAILY tab Apixaban [Eliquis] 5 mg PO BID tab Insulin Detemir (Levemir) [Levemir] 32 unit SQ HS each Sertraline [Zoloft] 50 mg PO HS tab Continue Ezetimibe [Zetia] 10 mg PO DAILY Atorvastatin [Lipitor] 80 mg PO DAILY metFORMIN HCL 1,000 mg PO BID Acetaminophen Tab [Tylenol] 500 mg PO Q8H PRN PRN Reason: Pain carvediloL [Coreg] 25 mg PO BID Potassium Chloride ER [K-Dur 20] 20 meq PO BID #60 tab Furosemide [Lasix] 40 mg PO BID@0900,1600 #60 tab Losartan Potassium [Cozaar] 100 mg PO DAILY #30 tablet Insulin Aspart [NovoLOG Flexpen] 7 units SQ TID-W/MEALS Sucralfate [Carafate] 1 gm PO AC-TID #90 tab Ferrous Sulfate [Iron (65 MG Elemental)] 325 mg PO BID-W/MEALS #60 tab Pantoprazole [Protonix] 40 mg PO AC-BID #60 tab Discontinued amLODIPine [Norvasc] 5 mg PO DAILY #30 tab Insulin Glargine,Hum.rec.anlog [Toujeo Solostar] 21 units SQ HS #0 Discharge Medication List Ezetimibe [Zetia] 10 mg PO DAILY 12/15/20 [History] Losartan Potassium [Cozaar] 100 mg PO DAILY #30 tablet 03/18/22 [Rx] Atorvastatin [Lipitor] 80 mg PO DAILY 04/09/22 [History] metFORMIN HCL 1,000 mg PO BID 04/09/22 [History] Acetaminophen Tab [Tylenol] 500 mg PO Q8H PRN 06/05/23 [History] Insulin Aspart [NovoLOG Flexpen] 7 units SQ TID-W/MEALS 06/05/23 [History] carvediloL [Coreg] 25 mg PO BID 06/05/23 [History] Ferrous Sulfate [Iron (65 MG Elemental)] 325 mg PO BID-W/MEALS #60 tab 06/15/23 [Rx] Furosemide [Lasix] 40 mg PO BID@0900,1600 #60 tab 06/15/23 [Rx] Pantoprazole [Protonix] 40 mg PO AC-BID #60 tab 06/15/23 [Rx] Potassium Chloride ER [K-Dur 20] 20 meq PO BID #60 tab 06/15/23 [Rx] Sucralfate [Carafate] 1 gm PO AC-TID #90 tab 06/15/23 [Rx] ALPRAZolam [Xanax] 0.25 mg PO TID PRN tab 07/02/23 [Rx] Apixaban [Eliquis] 5 mg PO BID tab 07/02/23 [Rx] Aspirin 81 mg PO DAILY tab 07/02/23 [Rx] Dapagliflozin Propanediol [Farxiga] 10 mg PO DAILY tab 07/02/23 [Rx] INSULIN ASPART (NovoLOG) [NovoLOG (formulary)] 0 unit SQ AC-TID each 07/02/23 [Rx] Insulin Detemir (Levemir) [Levemir] 32 unit SQ HS each 07/02/23 [Rx] Sertraline [Zoloft] 50 mg PO HS tab 07/02/23 [Rx] hydrALAZINE HCL [Apresoline] 75 mg PO TID #90 tab 07/02/23 [Rx] Follow up Appointment(s)/Referral(s): Kelly Montesinos MD [Primary Care Provider] - 1 Week (AT [facility]) Discharge Disposition: OTHER INSTITUTION NOT DEFINED
[2023-07-02 14:23] VITALS: RESP 17; TEMP 97.6
[2023-07-02 15:52] VITALS: BP 126/65; PULSE 63
[2023-07-02 16:31] LABS: Glucose,Whole Blood 266 mg/dL (70-110)
== END 2023-07-02 17:36 | DRG 64 ==
LOC: EC 17:46 → 3SCARD 21:22 → 4SSUR 06-25 22:03
PROVIDERS: ADMIT Internal Medicine; ATTEND Internal Medicine
DX: I63.29 Cerebral infarction due to unspecified occlusion or stenosis of other precerebral arteries (principal); I50.33 Acute on chronic diastolic (congestive) heart failure; G81.91 Hemiplegia, unspecified affecting right dominant side; I13.0 Hypertensive heart and chronic kidney disease with heart failure and stage 1 through stage 4 chronic kidney disease, or unspecified chronic kidney disease; I25.810 Atherosclerosis of coronary artery bypass graft(s) without angina pectoris; I48.19 Other persistent atrial fibrillation; N17.9 Acute kidney failure, unspecified; K22.10 Ulcer of esophagus without bleeding; I27.20 Pulmonary hypertension, unspecified; K29.00 Acute gastritis without bleeding; K64.8 Other hemorrhoids; N18.31 Chronic kidney disease, stage 3a; R29.705 NIHSS score 5; I25.10 Atherosclerotic heart disease of native coronary artery without angina pectoris; I07.1 Rheumatic tricuspid insufficiency; G47.33 Obstructive sleep apnea (adult) (pediatric); F41.9 Anxiety disorder, unspecified; F32.A Depression, unspecified; E78.5 Hyperlipidemia, unspecified; E11.42 Type 2 diabetes mellitus with diabetic polyneuropathy; E11.22 Type 2 diabetes mellitus with diabetic chronic kidney disease; D63.1 Anemia in chronic kidney disease; I25.5 Ischemic cardiomyopathy; R47.81 Slurred speech; R29.810 Facial weakness; Z79.01 Long term (current) use of anticoagulants; Z79.4 Long term (current) use of insulin; Z79.82 Long term (current) use of aspirin; Z79.84 Long term (current) use of oral hypoglycemic drugs; Z79.899 Other long term (current) drug therapy; I25.2 Old myocardial infarction; Z86.718 Personal history of other venous thrombosis and embolism; Z87.19 Personal history of other diseases of the digestive system; Z95.5 Presence of coronary angioplasty implant and graft; Z95.1 Presence of aortocoronary bypass graft; Z98.1 Arthrodesis status; Z88.1 Allergy status to other antibiotic agents; Z88.8 Allergy status to other drugs, medicaments and biological substances
CPT/HCPCS: 36415; 70450; 70553; 71046; 80048; 80053; 80061; 81001; 83605; 83880; 84484; 85025; 85027; 85610; 85730; 93005; 93880; 96374; 99285

== ENCOUNTER → 2024-03-16 | Outpatient (CLI) | payer MEDICARE ==
--- NOTE | 2024-03-17 08:44 | XR ---
EXAMINATION TYPE: XR chest 2V DATE OF EXAM: 03/16/2024 4:35 PM COMPARISON: None. CLINICAL INDICATION: Male, 58 years old with history of R07.81 CH RIB PAIN, TECHNIQUE: XR chest 2V view(s) obtained. FINDINGS: The heart size is mildly prominent. Sternotomy wires are in the midline The pulmonary vasculature is normal. The lungs are clear. IMPRESSION: 1. Mild cardiomegaly [facility], , 03/17/2024 8:41 AM
== END | disposition home or self-care (01) ==
LOC: RADXRMAIN 16:23
PROVIDERS: ATTEND Internal Medicine
DX: R07.81 Pleurodynia (principal); I51.7 Cardiomegaly
CPT/HCPCS: 71046

== ENCOUNTER 2024-05-05 13:42 | Inpatient (IN) | payer MEDICARE ==
--- NOTE | 2024-05-05 14:31 | ED ---
URI HPI - General Source: patient, RN notes reviewed Mode of arrival: wheelchair Limitations: no limitations <Juan Carlos Bolivar - Last Filed: 05/05/24 14:30> - General Source: patient, RN notes reviewed Mode of arrival: wheelchair Limitations: no limitations <Kee Colon - Last Filed: 05/05/24 17:17> - General Chief Complaint: Upper Respiratory Infection Stated Complaint: EMERY, cough Time Seen by Provider: 05/05/24 13:56 - History of Present Illness Initial Comments: Quick note: This is a 59-year-old male with history of asthma and DM presenting with sick symptoms x 3 days. Patient endorses cough, congestion and dyspnea. Patient states dyspnea started same time as other symptoms. Denies ove [id number] medication use. Denies fever, chills, chest pain, dizziness, abdominal pain, N/V/D. (Juan Carlos Bolivar) Patient is a 59-year-old male present to the emergency department with cough and dyspnea. Onset of symptoms was around 3 days ago. Patient does have some nasal congestion as well. Patient also has leg edema. Patient does have history of A-fib. Symptoms do worsen with orthopnea. (Kee Colon) - Related Data Home Medications Medication Instructions Recorded Confirmed Ezetimibe [Zetia] 10 mg PO DAILY 12/15/20 06/23/23 Atorvastatin [Lipitor] 80 mg PO DAILY 04/09/22 06/23/23 metFORMIN HCL 1,000 mg PO BID 04/09/22 06/23/23 Acetaminophen Tab [Tylenol] 500 mg PO Q8H PRN 06/05/23 06/23/23 Insulin Aspart [NovoLOG Flexpen] 7 units SQ TID-W/MEALS 06/05/23 06/23/23 carvediloL [Coreg] 25 mg PO BID 06/05/23 06/23/23 Previous Rx's Medication Instructions Recorded Losartan Potassium [Cozaar] 100 mg PO DAILY #30 tablet 03/18/22 Ferrous Sulfate [Iron (65 MG 325 mg PO BID-W/MEALS #60 tab 06/15/23 Elemental)] Furosemide [Lasix] 40 mg PO BID@0900,1600 #60 tab 06/15/23 Pantoprazole [Protonix] 40 mg PO AC-BID #60 tab 06/15/23 Potassium Chloride ER [K-Dur 20] 20 meq PO BID #60 tab 06/15/23 Sucralfate [Carafate] 1 gm PO AC-TID #90 tab 06/15/23 ALPRAZolam [Xanax] 0.25 mg PO TID PRN tab 07/02/23 Apixaban [Eliquis] 5 mg PO BID tab 07/02/23 Aspirin 81 mg PO DAILY tab 07/02/23 Dapagliflozin Propanediol [Farxiga] 10 mg PO DAILY tab 07/02/23 INSULIN ASPART (NovoLOG) [NovoLOG 0 unit SQ AC-TID each 07/02/23 (formulary)] Insulin Detemir (Levemir) [Levemir] 32 unit SQ HS each 07/02/23 Sertraline [Zoloft] 50 mg PO HS tab 07/02/23 hydrALAZINE HCL [Apresoline] 75 mg PO TID #90 tab 07/02/23 Allergies Allergy/AdvReac Type Severity Reaction Status Date / Time adhesive tape Allergy Severe Rash/Hives Verified 05/05/24 13:56 vancomycin Allergy Mild Head Itches Verified 05/05/24 13:56 Review of Systems ROS Other: All systems not noted in ROS Statement are negative. <Juan Carlos Bolivar - Last Filed: 05/05/24 14:30> ROS Other: All systems not noted in ROS Statement are negative. Constitutional: Denies: fever, chills Eyes: Denies: eye pain ENT: Reports: congestion Respiratory: Reports: as per HPI, cough, dyspnea Cardiovascular: Denies: chest pain Endocrine: Denies: fatigue Gastrointestinal: Denies: abdominal pain Genitourinary: Denies: dysuria <Kee Colon - Last Filed: 05/05/24 17:17> ROS Statement: Those systems with pertinent positive or pertinent negative responses have been documented in the HPI. Past Medical History Past Medical History: Asthma, Coronary Artery Disease (CAD), Chest Pain / Angina, Diabetes Mellitus, Deep Vein Thrombosis (DVT), Hyperlipidemia, Hypertension, Myocardial Infarction (NE), Sleep Apnea/CPAP/BIPAP Additional Past Medical History / Comment(s): Obstructive sleep apnea CPAP, bronchitis, IDDM type II, DVT L leg, cellulitis L leg 2013 cellulitis L Arm 2018, diabetic neuropathy affects feet and hands, chronic kidney disease stage II Last Myocardial Infarction Date:: 06/23/13 History of Any Multi-Drug Resistant Organisms: Acinetobacter (MDRO), MRSA Date of last positivie culture/infection: 08/2014 MDRO Source:: abdomen around navel Past Surgical History: Back Surgery, Coronary Bypass/CABG, Heart Catheterization, Heart Catheterization With Stent, Hernia Repair Additional Past Surgical History / Comment(s): Cardiac caths, PCI with stents (4total), 2006 CABG 6 vessels, spinal fusion L4-L5, fasciotomy left thigh, bilateral inguinal hernia repairs, I&D L forearm with dehisence then compartment syndrome with fasciotomy Left forearm - June 2016, teeth extraction Past Anesthesia/Blood Transfusion Reactions: No Reported Reaction Date of Last Stent Placement:: 08/28/15 Past Psychological History: No Psychological Hx Reported Smoking Status: Never smoker Past Alcohol Use History: None Reported Past Drug Use History: None Reported - Past Family History Brother(s) History Unknown: Yes Additional Family Medical History / Comment(s): Patient has 1 brother and 1 sister with no major medical problems. Mother History Unknown: Yes Family Medical History: Congestive Heart Failure (CHF), Diabetes Mellitus Additional Family Medical History / Comment(s): Mother at the age of 84 from with history of chronic renal disease stage. Father History Unknown: Yes Family Medical History: COPD, Coronary Artery Disease (CAD), Myocardial Infarction (NE) Additional Family Medical History / Comment(s): Father of a NE at the age of 60 yrs with history of COPD. Sister(s) History Unknown: Yes Family Medical History: Rheumatoid Arthritis (RA) Additional Family Medical History / Comment(s): Patient has 1 sister with no major medical problems. <Juan Carlos Bolivar - Last Filed: 05/05/24 14:30> General Exam Limitations: no limitations <Juan Carlos Bolivar - Last Filed: 05/05/24 14:30> Limitations: no limitations General appearance: alert, in no apparent distress Head exam: Present: normocephalic Eye exam: Present: normal appearance Neck exam: Present: normal inspection Respiratory exam: Present: decreased breath sounds (Bilateral bases) Cardiovascular Exam: Present: irregular rhythm GI/Abdominal exam: Present: soft. Absent: tenderness Extremities exam: Present: pedal edema. Absent: calf tenderness Neurological exam: Present: alert Psychiatric exam: Present: normal affect, normal mood Skin exam: Present: normal color <Kee Colon - Last Filed: 05/05/24 17:17> - General Exam Comments Initial Comments: Visual Physical Exam Vital signs reviewed General: Well-appearing, nontoxic, no acute distress. Head: Normocephalic, atraumatic Eyes: PERRLA, EOMI ENT: Airway patent Chest: Nonlabored breathing Skin: No visual rash, normal skin tone Neuro: Alert and oriented 3 Musculoskeletal: No gross abnormalities (Juan Carlos Bolivar) Course Vital Signs 05/05/24 05/05/24 13:53 16:08 Temperature 90 F L 98.5 F Pulse Rate 64 80 Respiratory 18 20 Rate Blood Pressure 198/100 207/102 O2 Sat by Pulse 94 L 96 Oximetry Medical Decision Making <Juan Carlos Bolivar - Last Filed: 05/05/24 14:30> - Lab Data Result diagrams: 05/05/24 15:53 05/05/24 15:53 <Kee Colon - Last Filed: 05/05/24 17:17> - Medical Decision Making I completed the quick note portion of this chart signed NAN Cunningham (Juan Carlos Bolivar) EKG interpreted by myself shows A-fib with a rate of 85. Right axis. LVH criteria. Q wave V2. T wave inversion inferior and V6. Was pt. sent in by a medical professional or institution (DELIA Fajardo, BUCKET WASH OPERATOR, urgent care, hospital, or snf...) When possible be specific @ -No Did you speak to anyone other than the patient for history (EMS, parent, family, police, friend...)? What history was obtained from this source @ -No Did you review nursing and triage notes (agree or disagree)? Why? @ -I reviewed and agree with nursing and triage notes Were old charts reviewed (outside hosp., previous admission, EMS record, old EKG, old radiological studies, urgent care reports/EKG's, snf records)? Report findings @ -No old charts were reviewed Differential Diagnosis (chest pain, altered mental status, abdominal pain women, abdominal pain men, vaginal bleeding, weakness, fever, dyspnea, syncope, head ache, dizziness, GI bleed, back pain, seizure, CVA, palpatations, mental health, musculoskeletal)? @ -Differential Dyspnea: Coronary syndrome, arrhythmia, tamponade, asthma, COPD, pulmonary embolism, pneumonia, pneumothorax, pulmonary effusion, anaphylaxis, diabetic ketoacidosis, flailed chest, pulmonary contusion, diaphragmatic rupture, anemia, neuromuscular, this is not meant to be an all-inclusive list. EKG interpreted by me (3pts min.). @ -As above X-rays interpreted by me (1pt min.). @ -Chest x-ray shows some cardiomegaly and mild effusions consistent with CHF CT interpreted by me (1pt min.). @ -None done U/S interpreted by me (1pt. min.). @ -None done What testing was considered but not performed or refused? (CT, X-rays, U/S, labs)? Why? @ -None What meds were considered but not given or refused? Why? @ -None Did you discuss the management of the patient with other professionals (professionals i.e. , PA, BUCKET WASH OPERATOR, lab, RT, psych nurse, secondary social studies teacher, pickle solution maker, teacher, air intelligence officer, high risk case manager)? Give summary @ -Case was discussed with Dr. Mars her who will admit his patient Was smoking cessation discussed for >3mins.? @ -No Was critical care preformed (if so, how long)? @ -No Were there social determinants of health that impacted care today? How? (Homelessness, low income, unemployed, alcoholism, drug addiction, transportation, low edu. Level, literacy, decrease access to med. care, prison, rehab)? @ -No Was there de-escalation of care discussed even if they declined (Discuss DNR or withdrawal of care, Hospice)? DNR status @ -No What co-morbidities impacted this encounter? (DM, HTN, Smoking, COPD, CAD, Cancer, CVA, ARF, Chemo, Hep., AIDS, mental health diagnosis, sleep apnea, morbid obesity)? @ -History of A-fib Was patient admitted / discharged? Hospital course, mention meds given and route, prescriptions, significant lab abnormalities, going to OR and other pertinent info. @ -Patient presents with nasal congestion as well as leg edema cough and d yspnea. Chest x-ray and blood work concerning for CHF. COVID-19 test negative, additional testing ordered for RSV and influenza. Patient updated on results and plan. Patient will be admitted, admission orders written. Undiagnosed new problem with uncertain prognosis? @ -No Drug Therapy requiring intensive monitoring for toxicity (Heparin, Nitro, Insulin, Cardizem)? @ -No Were any procedures done? @ -No Diagnosis/symptom? @ -CHF Acute, or Chronic, or Acute on Chronic? @ -Acute Uncomplicated (without systemic symptoms) or Complicated (systemic symptoms)? @ -Default Side effects of treatment? @ -No Exacerbation, Progression, or Severe Exacerbation? @ -No Poses a threat to life or bodily function? How? (Chest pain, USA, NE, pneumonia, PE, COPD, DKA, ARF, appy, cholecystitis, CVA, Diverticulitis, Homicidal, Suicidal, threat to staff... and all critical care pts) @ -Threat to cardiac and pulmonary function (Kee Colon) - Lab Data Lab Results 05/05/24 05/05/24 05/05/24 Range/Units 14:02 15:53 15:53 WBC 7.8 (3.8-10.6) k/uL RBC 5.37 (4.30-5.90) m/uL Hgb 13.4 (13.0-17.5) gm/dL Hct 44.8 (39.0-53.0) % MCV 83.4 (80.0-100.0) fL MCH 25.0 (25.0-35.0) pg MCHC 29.9 L (31.0-37.0) g/dL RDW 16.4 H (11.5-15.5) % Plt Count 175 (150-450) k/uL MPV 8.5 Neutrophils % 78 % Lymphocytes % 9 % Monocytes % 8 % Eosinophils % 2 % Basophils % 1 % Neutrophils # 6.1 (1.3-7.7) k/uL Lymphocytes # 0.7 L (1.0-4.8) k/uL Monocytes # 0.6 (0-1.0) k/uL Eosinophils # 0.2 (0-0.7) k/uL Basophils # 0.1 (0-0.2) k/uL Hypochromasia Moderate Anisocytosis Slight PT 12.4 (10.0-12.5) sec INR 1.1 (<1.2) APTT 25.6 (22.0-30.0) sec Sodium (137-145) mmol/L Potassium (3.5-5.1) mmol/L Chloride (98-107) mmol/L Carbon Dioxide (22-30) mmol/L Anion Gap mmol/L BUN (9-20) mg/dL Creatinine (0.66-1.25) mg/dL Est GFR (CKD-EPI)AfAm (>60 ml/min/1.73 sqM) Est GFR (CKD-EPI)NonAf (>60 ml/min/1.73 sqM) Glucose (74-99) mg/dL Plasma Lactic Acid Oskar (0.7-2.0) mmol/L Calcium (8.4-10.2) mg/dL Magnesium (1.6-2.3) mg/dL Total Bilirubin (0.2-1.3) mg/dL AST (17-59) U/L ALT (4-49) U/L Alkaline Phosphatase (38-126) U/L Troponin I (0.000-0.034) ng/mL NT-Pro-B Natriuret Pep pg/mL Total Protein (6.3-8.2) g/dL Albumin (3.5-5.0) g/dL SARS-CoV-2 (PCR) Not Detected (Not Detectd) 05/05/24 05/05/24 05/05/24 Range/Units 15:53 15:53 15:53 WBC (3.8-10.6) k/uL RBC (4.30-5.90) m/uL Hgb (13.0-17.5) gm/dL Hct (39.0-53.0) % MCV (80.0-100.0) fL MCH (25.0-35.0) pg MCHC (31.0-37.0) g/dL RDW (11.5-15.5) % Plt Count (150-450) k/uL MPV Neutrophils % % Lymphocytes % % Monocytes % % Eosinophils % % Basophils % % Neutrophils # (1.3-7.7) k/uL Lymphocytes # (1.0-4.8) k/uL Monocytes # (0-1.0) k/uL Eosinophils # (0-0.7) k/uL Basophils # (0-0.2) k/uL Hypochromasia Anisocytosis PT (10.0-12.5) sec INR (<1.2) APTT (22.0-30.0) sec Sodium 135 L (137-145) mmol/L Potassium 3.6 (3.5-5.1) mmol/L Chloride 104 (98-107) mmol/L Carbon Dioxide 21 L (22-30) mmol/L Anion Gap 10 mmol/L BUN 25 H (9-20) mg/dL Creatinine 1.12 (0.66-1.25) mg/dL Est GFR (CKD-EPI)AfAm 82 (>60 ml/min/1.73 sqM) Est GFR (CKD-EPI)NonAf 71 (>60 ml/min/1.73 sqM) Glucose 381 H (74-99) mg/dL Plasma Lactic Acid Oskar 1.3 (0.7-2.0) mmol/L Calcium 8.5 (8.4-10.2) mg/dL Magnesium 1.9 (1.6-2.3) mg/dL Total Bilirubin 1.3 (0.2-1.3) mg/dL AST 24 (17-59) U/L ALT 18 (4-49) U/L Alkaline Phosphatase 191 H (38-126) U/L Troponin I 0.026 (0.000-0.034) ng/mL NT-Pro-B Natriuret Pep 6130 pg/mL Total Protein 6.4 (6.3-8.2) g/dL Albumin 3.3 L (3.5-5.0) g/dL SARS-CoV-2 (PCR) (Not Detectd) Disposition <Juan Carlos Bolivar - Last Filed: 05/05/24 14:30> Is patient prescribed a controlled substance at d/c from ED?: No Time of Disposition: 17:17 <Kee Colon - Last Filed: 05/05/24 17:17> Clinical Impression: Congestive heart failure Disposition: ADMITTED IP TO THIS HOSP Referrals: Kelly Montesinos MD [Primary Care Provider] - 1-2 days
--- NOTE | 2024-05-05 15:01 | XR ---
EXAMINATION TYPE: XR chest 2V DATE OF EXAM: 05/05/2024 CLINICAL INDICATION: Male, 59 years old with history of Cough, SOB, TECHNIQUE: Frontal and lateral views of the chest are obtained. COMPARISON: Chest x-ray March 16, 2024 FINDINGS: Overlying sternal wires are redemonstrated. Persistent cardiomegaly. New small bilateral pl eural effusions. No suspicious focal airspace opacity or pneumothorax seen bilaterally. The osseous structures are intact. IMPRESSION: Cardiomegaly with new small bilateral pleural effusions. Findings concerning for CHF exac erbation/fluid overload state. [facility], , 05/05/2024 2:59 PM
[2024-05-05 16:24] LABS: Anisocytosis Slight; Basophils # (A) 0.1 k/uL (0-0.2); Basophils % (A) 1 %; Eosinophils # (A) 0.2 k/uL (0-0.7); Eosinophils % (A) 2 %; HCT 44.8 % (39.0-53.0); HGB 13.4 gm/dL (13.0-17.5); Hypochromasia Moderate; Lymphocytes # (A) 0.7 k/uL (1.0-4.8); Lymphocytes % (A) 9 %; MCHC 29.9 g/dL (31.0-37.0); MCV 83.4 fL (80.0-100.0); Mean Platelet Volume 8.5; Monocytes # (A) 0.6 k/uL (0-1.0); Monocytes % (A) 8 %; Neutrophils # (A) 6.1 k/uL (1.3-7.7); Neutrophils % (A) 78 %; Platelet Count 175 k/uL (150-450); RBC 5.37 m/uL (4.30-5.90); RDW 16.4 % (11.5-15.5); WBC 7.8 k/uL (3.8-10.6)
[2024-05-05 16:33] LABS: INR 1.1 (<1.2); Partial Thromboplastin Time 25.6 sec (22.0-30.0); Prothrombin Time 12.4 sec (10.0-12.5)
[2024-05-05 16:36] LABS: ALT 18 U/L (4-49); AST 24 U/L (17-59); African American GFR (CKD) 82 (>60 ml/min/1.73 sqM); Albumin 3.3 g/dL (3.5-5.0); Alkaline Phosphatase 191 U/L (38-126); Anion Gap 10 mmol/L; Blood Urea Nitrogen 25 mg/dL (9-20); Calcium 8.5 mg/dL (8.4-10.2); Carbon Dioxide 21 mmol/L (22-30); Chloride 104 mmol/L (98-107); Glucose 381 mg/dL (74-99); Magnesium 1.9 mg/dL (1.6-2.3); Non-African American GFR(CKD) 71 (>60 ml/min/1.73 sqM); Potassium 3.6 mmol/L (3.5-5.1); Sodium 135 mmol/L (137-145); Total Bilirubin 1.3 mg/dL (0.2-1.3); Total Protein 6.4 g/dL (6.3-8.2)
[2024-05-05 16:43] LABS: NT-Pro-B-Type Natriuretic Pept 6130 pg/mL
[2024-05-05] MEDS: FUROSEMIDE 10 MG/ML 4 ML VIAL IV SCH (17:29)
[2024-05-05] MEDS: ASPIRIN 325 MG TAB PO STA (17:30)
[2024-05-05] MEDS: NITROGLYCERIN OINT 1 INCH/GM PACKET TOPICAL SCH (17:30)
[2024-05-05 17:56] LABS: Influenza A Not Detected (Not Detectd); Influenza B Not Detected (Not Detectd); RSV Not Detected (Not Detectd)
[2024-05-05] MEDS: carvediloL 12.5 MG TAB PO SCH (19:01)
[2024-05-05] MEDS: amLODIPine 5 MG TAB PO SCH (19:01)
[2024-05-05] MEDS: LOSARTAN 50 MG TAB PO SCH (19:01)
--- NOTE | 2024-05-05 19:11 | P.HPIM ---
History of Present Illness H&P Date: 05/05/24 Chief Complaint: acute on chronic systolic heart failure HISTORY OF PRESENT ILLNESS: This is a 59-year-old male patient of rosita and Dr. Ga with past medical history of coronary artery disease status post 6 vessel CABG 2006 with MAE to LAD, saphenous venous graft to the PDA, saphenous venous graft to the obtuse marginal one, radial artery to the obtuse marginal branch 2 and saphenous venous graft to the obtuse marginal 3 followed by heart catheterization with PCI and stent of the saphenous venous graft to the RCA in 2015 at which time he presented with non-ST elevated myocardial infarction. Most recent cardiac catheterization was performed on 04/10/2022 which revealed severe triple-vessel coronary artery disease with a patent ramus intermediate, patent SVG to the OM, patent MAE to the LAD, and occluded saphenous vein graft to the RCA which is chronic from before. Medical therapy was advised at that time. History of hypertension, hypertensive cardiovascular disease with left ventricular hypertrophy, hyperlipidemia, ischemic cardiomyopathy, paroxysmal atrial fibrillation, currently on Eliquis, diabetes mellitus type 2 with diabetic polyneuropathy, hyperlipidemia, asthma, obstructive sleep apnea on CPAP, chronic low back pain, DVT in the past, patient was recently hospitalized at [facility] between 06/05/2023 and discharged 06/15/2023 after he was admitted for GI bleed due to esophageal ulcer. Patient had EGD and incomplete colonoscopy due to poor prep at that time. Patient presented to the ER at [facility] due to increased cough and increased shortness of breath, was complaining of increased edema in both legs and ws seen by Isaiah Pena and PCR was negative for COVID-19. Influenza A, B annd RSV, CXR showed evidence of CHF with bilateral pleural effusion, with elevated BNP, was started on Furosemide 40 mg IVP q 8 h and was admitted to the hospital for acute on chronic systolic heart failure REVIEW OF SYSTEMS: Constitutional: No documented fever, no chills, no night sweats. No weight change. Positive for weakness, positive for fatigue, no lethargy. No daytime sleepiness. HEENT: No headache. No blurred vision or double vision, no loss of vision. No loss of Hearing, no ringing in the ears, no dizziness. No nasal drainage or congestion. No epistaxis. No sore throat. Lungs: positive for shortness of breath, occasional cough, minimal sputum production. no wheezing. Reports dyspnea with activity. Cardiovascular: no chest pain, positive for lower extremity edema. No palpitations. No paroxysmal nocturnal dyspnea. No orthopnea. positive for lightheadedness or dizziness. No syncopal episodes. Abdominal: Reports no abdominal pain. no nausea, vomiting. No diarrhea. No constipation. No bloody or tarry stools reports loss of appetite. Genitourinary: No dysuria, increased frequency, urgency. No urinary retention. Musculoskeletal: No myalgias. positive for muscle weakness, no gait dysf unction, frequent falls. No back pain. No neck pain. Integumentary: scabbed wounds to left caballero , no lesions. No rash or pruritus. No unusual bruising. No change in hair or nails. Neurologic: No aphasia. Minimal facial droop. No change in mentation. No head injury. No headache, minimal drift. Psychiatric: positive for depression. No anxiety. No mood swings. Endocrine: abnormal blood sugars. No weight change. PAST MEDICAL HISTORY: CAD post CABG with MAE to LAD SVG to PDA SVG to OM1 and the radial artery to the obtuse marginal 2 and SVG to the obtuse marginal 3 PCI of the SVG to the RCA 2015 Hypertension and hypertensive cardio vascular disease 3 Paroxysmal atrial fibrillation Diabetes mellitus type 2 Hyperlipidemia. Obstructive sleep apnea. Ischemic cardiomyopathy . Diabetic polyneuropathy. Postherpetic neuralgia. Asthma. DVT. Chronic low back pain. CVA PAST SURGICAL HISTORY: CABG with MAE to LAD, SVG to PDA him a SVG to OM 1, radial artery to OM 2, SVG to OM 3. Left heart catheterization with PCI of the SVG to the RCA 2015. Spinal fusion L4-L5 Bilateral inguinal hernia repair. Fasciotomy to the left lower extremity. Fasciotomy to the left upper extremity. [facility] 04/10/2022 SOCIAL HISTORY: Patient is a lifelong nonsmoker, he denies any alcohol ingestion he denies any drug use or abuse. FAMILY HISTORY: Father at age of 60 from COPD he also has history of CAD post AL, mother at age of 80 fortunately history of diabetes mellitus type 2, she'll also have history of chronic kidney disease, patient has one sister with rheumatoid arthritis as well as hyperlipidemia and one brother no major medical problems. PHYSICAL EXAMINATION: General: 59-year-old male laying down in no distress. HEENT: Head is atraumatic, normocephalic, pupils were equal round reactive to light and recommendation, extraocular muscle movement were intact, sclera nonicteric, conjunctivae were pale, mucous membranes of the mouth are somewhat dry. Neck: Supple, no JVP, normal carotid upstroke bilaterally, no lymphadenopathy. Chest: Decreased breath sounds at the bases, few rhonchi no expirratory wheezes,, no chest wall tenderness, no intercostal retractions. Heart: First heart sound is normal, second heart sounds normal, irregularly irregular, there is systolic ejection murmur 2/6 located in the left sternal border. Abdomen: Soft, nontender, nondistended, positive bowel sounds, there is no hepatosplenomegaly Extremities: There is +2 edema no calf tenderness DP +1 bilaterally. Neurologic examination: Patient is awake alert and oriented X 3, cranial nerves II-12 appear grossly intact, muscle power were 4 out of 5 in upper extremities and 4 out of 5 in bilateral lower extremities, deep tendon reflexes normal bilaterally. Minimal right facial droop, and right leg weakness. ASSESSMENT AND PLAN: 1. Acute on chronic systolic heart failure . we will start Furosemide 40 mg IVP q 8 hours , we will continue with Losartan 100 mg po daily, Carvedilol 25 mg po bid , monitor input annd output and daily weight, Cardiology consult 2. Hyponatremia due to hypervolemia. we will continue with Furosemide 40 mg IVP q 8 h and we will repeat CMP in AM . 3. Hypertension and hypertensive cardiovascular disease. Continue the patient on losartan 100 mg orally once every day, continue patient on Carvedilol 25 mg orally twice every day, continue Amlodipine 5 mg po daily, continue with Hydralazine as well and monitor BP very closely. 4. Diabetes mellitus type 2. Restart the patient on Lantus 30 units at bedtime along with a sliding scale insulin, we will continue with Humalog 9 units before each meal, continue with Metformin 1000 mg po bid and Farxiga 10 mg po daily, we will start SSI 5. Coronary artery disease status post CABG 6 as well as PCI in the past. Continue patient on ASA 81 mg once every day, Carvedilol 25 mg orally twice every day, continue patient on atorvastatin 80 mg orally once every day, continue Zetia 10 mg orally once every day. 6. Hyperlipidemia. Continue patient on atorvastatin 80 mg once every day, continue Zetia 10 mg orally once every day, monitor lipid panel, keep LDL 55-70. 7. Diabetic polyneuropathy. Continue patient on gabapentin 900 mg orally 2 times every day. 8. Obstructive sleep apnea. Patient does have a CPAP at home. 9. Chronic systolic heart failure. Continue with Furosemide 40 mg IVP q 8 h , Carvedilol 25 mg po bid and add Farxiga 10 mg po daily. 10. Paroxysmal atrial fibrillation . Continue patient on Coreg 25 mg orally twice every day, Eliquis 5 mg po bid. 11. DVT prophylaxis. Continue Eliquis 5 mg orally twice every day. 12. GI prophylaxis. Continue Protonix 40 mg orally bid 13. History of CVA in the past recovered well, e will continue with Atorvastatin 80 mg po daily and Eliquis for life 14. Admit to inpatient. Estimated length of stay 2 midnights. 15. Patient's full code. Past Medical History Past Medical History: Asthma, Coronary Artery Disease (CAD), Chest Pain / Angina, Diabetes Mellitus, Deep Vein Thrombosis (DVT), Hyperlipidemia, Hypertension, Myocardial Infarction ([place]), Sleep Apnea/CPAP/BIPAP Additional Past Medical History / Comment(s): Obstructive sleep apnea CPAP, bronchitis, IDDM type II, DVT L leg, cellulitis L leg 2012 cellulitis L Arm 2017, diabetic neuropathy affects feet and hands, chronic kidney disease stage II Last Myocardial Infarction Date:: 06/23/13 History of Any Multi-Drug Resistant Organisms: Acinetobacter (MDRO), MRSA Date of last positivie culture/infection: 08/2014 MDRO Source:: abdomen around navel Past Surgical History: Back Surgery, Coronary Bypass/CABG, Heart Catheterization, Heart Catheterization With Stent, Hernia Repair Additional Past Surgical History / Comment(s): Cardiac caths, PCI with stents (4total), 2006 CABG 6 vessels, spinal fusion L4-L5, fasciotomy left thigh, bilateral inguinal hernia repairs, I&D L forearm with dehisence then compartment syndrome with fasciotomy Left forearm - June 2016, teeth extraction Past Anesthesia/Blood Transfusion Reactions: No Reported Reaction Date of Last Stent Placement:: 08/28/15 Past Psychological History: No Psychological Hx Reported Smoking Status: Never smoker Past Alcohol Use History: None Reported Past Drug Use History: None Reported - Past Family History Brother(s) History Unknown: Yes Additional Family Medical History / Comment(s): Patient has 1 brother and 1 sister with no major medical problems. Mother History Unknown: Yes Family Medical History: Congestive Heart Failure (CHF), Diabetes Mellitus Additional Family Medical History / Comment(s): Mother at the age of 84 from with history of chronic renal disease stage. Father History Unknown: Yes Family Medical History: COPD, Coronary Artery Disease (CAD), Myocardial Infarction ([place]) Additional Family Medical History / Comment(s): Father of a AL at the age of 60 yrs with history of COPD. Sister(s) History Unknown: Yes Family Medical History: Rheumatoid Arthritis (RA) Additional Family Medical History / Comment(s): Patient has 1 sister with no major medical problems. Medications and Allergies Home Medications Medication Instructions Recorded Confirmed Type Ezetimibe [Zetia] 10 mg PO DAILY 12/15/20 05/05/24 History Losartan Potassium [Cozaar] 100 mg PO DAILY #30 tablet 03/18/22 05/05/24 Rx Atorvastatin [Lipitor] 80 mg PO DAILY 04/09/22 05/05/24 History metFORMIN HCL 1,000 mg PO BID 04/09/22 05/05/24 History Insulin Aspart [NovoLOG Flexpen] 9 - 12 units SQ TID-W/MEALS 06/05/23 05/05/24 History carvediloL [Coreg] 25 mg PO BID 06/05/23 05/05/24 History Furosemide [Lasix] 40 mg PO BID@0900,1600 #60 tab 06/15/23 05/05/24 Rx Apixaban [Eliquis] 5 mg PO DIRECTED 05/05/24 05/05/24 History Dapagliflozin Propanediol [Farxiga] 10 mg PO DIRECTED 05/05/24 05/05/24 History Gabapentin 300 mg PO BID 05/05/24 05/05/24 History Insulin Glargine,Hum.rec.anlog 30 unit SQ HS 05/05/24 05/05/24 History [Basaglar Kwikpen U-100] amLODIPine [Norvasc] 5 mg PO DAILY 05/05/24 05/05/24 History hydrALAZINE HCL [Apresoline] 25 mg PO TID 05/05/24 05/05/24 History Allergies Allergy/AdvReac Type Severity Reaction Status Date / Time adhesive tape Allergy Severe Rash/Hives Verified 05/05/24 17:58 vancomycin Allergy Mild Head Itches Verified 05/05/24 17:58 Physical Exam Vitals: Vital Signs Temp Pulse Resp BP Pulse Ox 05/05/24 16:08 98.5 F 80 20 207/102 96 05/05/24 13:53 90 F L 64 18 198/100 94 L Intake and Output 05/05/24 05/05/24 05/05/24 06:59 14:59 22:59 Other: Weight 74.843 kg Results CBC & Chem 7: 05/05/24 15:53 05/05/24 15:53 Labs: Abnormal Lab Results - Last 24 Hours (Table) 05/05/24 05/05/24 Range/Units 15:53 15:53 MCHC 29.9 L (31.0-37.0) g/dL RDW 16.4 H (11.5-15.5) % Lymphocytes # 0.7 L (1.0-4.8) k/uL Sodium 135 L (137-145) mmol/L Carbon Dioxide 21 L (22-30) mmol/L BUN 25 H (9-20) mg/dL Glucose 381 H (74-99) mg/dL Alkaline Phosphatase 191 H (38-126) U/L Albumin 3.3 L (3.5-5.0) g/dL
[2024-05-05] MEDS: GABAPENTIN 300 MG CAP PO SCH (21:22)
[2024-05-05] MEDS: APIXABAN 5 MG TAB PO SCH (21:22)
[2024-05-05] MEDS: metFORMIN 500 MG TAB PO SCH (21:23)
[2024-05-05] MEDS: hydrALAZINE HCL 25 MG TAB PO SCH (21:23)
[2024-05-05] MEDS: BENZONATATE 100 MG CAP PO SCH (21:23)
[2024-05-05] MEDS: INSULIN GLARGINE (LANTUS) 100 UNIT/ML SYR SQ SCH (21:34)
[2024-05-05 21:36] LABS: Glucose,Whole Blood 379 mg/dL (70-110)
[2024-05-06 06:13] LABS: Glucose,Whole Blood 223 mg/dL (70-110)
[2024-05-06] MEDS: ATORVASTATIN 80 MG TAB PO SCH (08:45)
[2024-05-06] MEDS: EZETIMIBE 10 MG TAB PO SCH (08:45)
[2024-05-06] MEDS: DAPAGLIFLOZIN PROPANEDIOL 10 MG TABLET PO SCH (08:45)
[2024-05-06] MEDS: INSULIN LISPRO (HumaLOG) 100 UNIT/ML 10 mL VL SQ SCH ×2 (08:45→17:14)
[2024-05-06] MEDS ORDERED: ASPIRIN 325 MG TAB PO SCH (09:00)
[2024-05-06 09:34] LABS: ALT 16 U/L (10-49); AST 25 U/L (14-35); Albumin 3.2 g/dL (3.8-4.9); Albumin/Globulin Ratio 1.23 Ratio (1.60-3.17); Alkaline Phosphatase 173 U/L (41-126); BUN/Creat Ratio 18.07 Ratio (12.00-20.00); Blood Urea Nitrogen 25.3 mg/dL (9.0-27.0); Calcium 8.5 mg/dL (8.7-10.3); Carbon Dioxide 25.6 mmol/L (21.6-31.8); Chloride 105 mmol/L (96-109); Globulin 2.6 g/dL (1.6-3.3); Glucose 238 mg/dL (70-110); Magnesium 1.7 mg/dL (1.5-2.4); Potassium 3.3 mmol/L (3.5-5.5); Sodium 143 mmol/L (135-145); Total Protein 5.8 g/dL (6.2-8.2)
[2024-05-06 10:26] LABS: Basophils # (A) 0.04 X 10*3/uL (0.00-0.10); Basophils % (A) 0.6 %; Eosinophils # (A) 0.27 X 10*3/uL (0.04-0.35); HCT 40.9 % (39.6-50.0); Lymphocytes # (A) 0.84 X 10*3/uL (0.90-5.00); Lymphocytes % (A) 12.4 %; MCH 25.7 pg (27.0-32.0); MCHC 31.8 g/dL (32.0-37.0); MCV 80.8 FL (80.0-97.0); Mean Platelet Volume 11.1 FL (9.5-12.2); Monocytes # (A) 0.73 X 10*3/uL (0.20-1.00); Monocytes % (A) 10.7 %; NRBC Per 100 WBC 0 X 10*3/uL (0.00-0.01); Neutrophils # (A) 4.89 X 10*3/uL (1.80-7.70); Neutrophils % (A) 71.9 %; Platelet Count 154 X 10*3/uL (140-440); RBC 5.06 X 10*6/uL (4.40-5.60); RDW 16.6 % (11.5-14.5)
--- NOTE | 2024-05-06 10:28 | P.CRDCN ---
History of Present Illness History of present illness: HISTORY OF PRESENT ILLNESS: This is a 59-year-old male with a past medical history significant for coronary artery disease with previous CABG and stenting, hypertension, hyperlipidemia, d iabetes, CVA, atrial fibrillation, and GI bleed. Patient follows in the office with Dr. Ga. We have been asked to see the patient in consultation for CHF. Patient examined at the bedside. Patient presented to the hospital for chief complaint of shortness of breath. Patient states for the past 3 to 4 days he has been progressively getting more short of breath at home. He also reports having a frequent cough. He denies any fever or sick contacts. DIAGNOSTICS: - EKG reveals atrial fibrillation with controlled ventricular rate - Chest xray cardiomegaly with new small bilateral pleural effusions. Findings concerning for CHF exacerbation/fluid overload state. - Laboratory data: WBC 7.8. Hemoglobin 13.4. Platelet count 175. Sodium 143. Potassium 3.3. BUN 25. Creatinine 1.4. Troponin negative x 1. proBNP 6130. - Current home cardiac medications include hydralazine 25 mg 3 times daily, carvedilol 25 mg twice a day, amlodipine 5 mg daily, losartan 100 mg daily, Lasix 40 mg twice a day, Zetia 10 mg daily, Farxiga 10 mg daily, Lipitor 80 mg daily, and Eliquis 5 mg twice a day. - Most recent echocardiogram obtained in May 2023 revealed ejection fraction 40 to 45%, severe pulmonary hypertension, moderate posteriorly directed mitral regurgitation and severe tricuspid regurgitation - Cardiac catheterization history: March 2022 revealing severe triple-vessel disease. Patent stented segment in the ramus intermedius and proximal left circumflex. Patent MEA to LAD. Patent SVG to OM. Chronically occluded SVG to RCA and diagonal branch. No significant progression of disease since 2019. Medical management was recommended. REVIEW OF SYSTEMS: At the time of my exam: CONSTITUTIONAL: Denies fever or chills. HEENT: Denies blurred vision, vision changes, or eye pain. Denies hemoptysis CARDIOVASCULAR: Denies chest pain. Denies orthopnea. Denies PND. Denies palpitat ions RESPIRATORY: Denies shortness of breath. GASTROINTESTINAL: Denies abdominal pain. Denies nausea or vomiting. HEMATOLOGIC: Denies bleeding disorders. GENITOURINARY: Denies any blood in urine. SKIN: Denies pruitis. Denies rash. PHYSICAL EXAM: VITAL SIGNS: Reviewed. GENERAL: Well-developed in no acute distress. HEENT: Head is normocephalic. Pupils are equal, round. Sclerae anicteric. Mucous membranes of the mouth are moist. Neck supple. No JVD or thyromegaly LUNGS: Respirations even and unlabored. Lungs with expiratory wheezing noted. HEART: Irregular rate and rhythm. S1 and S2 heard. ABDOMEN: Soft. Nondistended. Nontender. EXTREMITIES: Normal range of motion. No clubbing or cyanosis. Peripheral pulses intact. 1+ bilateral lower extremity edema noted NEUROLOGIC: Awake and alert. Oriented x 3. ASSESSMENT: Shortness of breath Acute on chronic heart failure with reduced EF, 40 to 45% Coronary artery disease with previous three-vessel CABG and known chronically occluded SVG to RCA and diagonal branch Ischemic cardiomyopathy Persistent atrial fibrillation with controlled ventricular rate Hypertension Hyperlipidemia Diabetes CVA History of GI bleed PLAN: Obtain 2D echo to assess cardiac structure and function Resume home cardiac medications including amlodipine, Eliquis, atorvastatin, carvedilol, Farxiga, Zetia, hydralazine, and losartan Continue IV Lasix 40 mg every 8 hours Daily weights, accurate intake and output, monitoring of kidney function Recommend nebulizer treatments. Will defer to internal medicine. Further recommendations pending patient course Nurse practitioner note has been reviewed by physician. Signing provider agrees with the documented findings, assessment, and plan of care documented by [employer] as a scribe. Past Medical History Past Medical History: Asthma, Coronary Artery Disease (CAD), Chest Pain / Angina, Diabetes Mellitus, Deep Vein Thrombosis (DVT), Hyperlipidemia, Hypertension, Myocardial Infarction ([place]), Sleep Apnea/CPAP/BIPAP Additional Past Medical History / Comment(s): Obstructive sleep apnea CPAP, bronchitis, IDDM type II, DVT L leg, cellulitis L leg 2012 cellulitis L Arm 2017, diabetic neuropathy affects feet and hands, chronic kidney disease stage II Last Myocardial Infarction Date:: 06/23/13 History of Any Multi-Drug Resistant Organisms: Acinetobacter (MDRO), MRSA Date of last positivie culture/infection: 08/2014 MDRO Source:: abdomen around navel Past Surgical History: Back Surgery, Coronary Bypass/CABG, Heart Catheterizatio n, Heart Catheterization With Stent, Hernia Repair Additional Past Surgical History / Comment(s): Cardiac caths, PCI with stents (4total), 2006 CABG 6 vessels, spinal fusion L4-L5, fasciotomy left thigh, bilateral inguinal hernia repairs, I&D L forearm with dehisence then compartment syndrome with fasciotomy Left forearm - June 2016, teeth extraction Past Anesthesia/Blood Transfusion Reactions: No Reported Reaction Date of Last Stent Placement:: 08/28/15 Past Psychological History: No Psychological Hx Reported Smoking Status: Never smoker Past Alcohol Use History: None Reported Additional Past Alcohol Use History / Comment(s): He denies any medical marijuana, marijuana, street drug use. Past Drug Use History: None Reported - Past Family History Brother(s) History Unknown: Yes Additional Family Medical History / Comment(s): Patient has 1 brother and 1 sister with no major medical problems. Mother History Unknown: Yes Family Medical History: Congestive Heart Failure (CHF), Diabetes Mellitus Additional Family Medical History / Comment(s): Mother at the age of 84 from with history of chronic renal disease stage. Father History Unknown: Yes Family Medical History: COPD, Coronary Artery Disease (CAD), Myocardial Infarction ([place]) Additional Family Medical History / Comment(s): Father of a [place] at the age of 60 yrs with history of COPD. Sister(s) History Unknown: Yes Family Medical History: Rheumatoid Arthritis (RA) Additional Family Medical History / Comment(s): Patient has 1 sister with no major medical problems. Medications and Allergies Home Medications Medication Instructions Recorded Confirmed Type Ezetimibe [Zetia] 10 mg PO DAILY 12/15/20 05/05/24 History Losartan Potassium [Cozaar] 100 mg PO DAILY #30 tablet 03/18/22 05/05/24 Rx Atorvastatin [Lipitor] 80 mg PO DAILY 04/09/22 05/05/24 History metFORMIN HCL 1,000 mg PO BID 04/09/22 05/05/24 History Insulin Aspart [NovoLOG Flexpen] 9 - 12 units SQ TID-W/MEALS 06/05/23 05/05/24 History carvediloL [Coreg] 25 mg PO BID 06/05/23 05/05/24 History Furosemide [Lasix] 40 mg PO BID@0900,1600 #60 tab 06/15/23 05/05/24 Rx Apixaban [Eliquis] 5 mg PO DIRECTED 05/05/24 05/05/24 History Dapagliflozin Propanediol [Farxiga] 10 mg PO DIRECTED 05/05/24 05/05/24 History Gabapentin 300 mg PO BID 05/05/24 05/05/24 History Insulin Glargine,Hum.rec.anlog 30 unit SQ HS 05/05/24 05/05/24 History [Basaglar Kwikpen U-100] amLODIPine [Norvasc] 5 mg PO DAILY 05/05/24 05/05/24 History hydrALAZINE HCL [Apresoline] 25 mg PO TID 05/05/24 05/05/24 History Allergies Allergy/AdvReac Type Severity Reaction Status Date / Time adhesive tape Allergy Severe Rash/Hives Verified 05/05/24 17:58 vancomycin Allergy Mild Head Itches Verified 05/05/24 17:58 Physical Exam Vitals: Vital Signs Temp Pulse Pulse Resp BP BP Pulse Ox 05/06/24 07:00 97.6 F 64 15 135/64 94 L 05/06/24 02:00 98.0 F 61 16 145/75 96 05/05/24 23:00 97.7 F 62 20 136/77 96 05/05/24 20:08 194/99 05/05/24 19:59 62 97 05/05/24 18:59 94 200/110 87 L 05/05/24 16:08 98.5 F 80 20 207/102 96 05/05/24 13:53 90 F L 64 18 198/100 94 L Intake and Output 05/05/24 05/06/24 05/06/24 22:59 06:59 14:59 Other: # Voids 2 Weight 74.843 kg Results 05/05/24 15:53 05/06/24 05:48 Cardiac Enzymes 05/05/24 05/05/24 05/06/24 Range/Units 15:53 15:53 05:48 AST 24 25 (17-59) U/L Troponin I 0.026 (0.000-0.034) ng/mL Coagulation 05/05/24 Range/Units 15:53 PT 12.4 (10.0-12.5) sec APTT 25.6 (22.0-30.0) sec CBC 05/05/24 Range/Units 15:53 WBC 7.8 (3.8-10.6) k/uL RBC 5.37 (4.30-5.90) m/uL Hgb 13.4 (13.0-17.5) gm/dL Hct 44.8 (39.0-53.0) % Plt Count 175 (150-450) k/uL Comprehensive Metabolic Panel 05/05/24 05/06/24 Range/Units 15:53 05:48 Sodium 135 L 143 (137-145) mmol/L Potassium 3.6 3.3 L (3.5-5.1) mmol/L Chloride 104 105 (98-107) mmol/L Carbon Dioxide 21 L 25.6 (22-30) mmol/L BUN 25 H 25.3 (9-20) mg/dL Creatinine 1.12 1.4 (0.66-1.25) mg/dL Glucose 381 H 238 H (74-99) mg/dL Calcium 8.5 8.5 L (8.4-10.2) mg/dL AST 24 25 (17-59) U/L ALT 18 16 (4-49) U/L Alkaline Phosphatase 191 H 173 H (38-126) U/L Total Protein 6.4 5.8 L (6.3-8.2) g/dL Albumin 3.3 L 3.2 L (3.5-5.0) g/dL Current Medications Generic Name Dose Route Start Last Admin Trade Name Freq PRN Reason Stop Dose Admin Amlodipine Besylate 5 mg 05/05/24 18:45 05/06/24 08:45 Amlodipine 5 Mg Tab PO 5 mg DAILY INDERJIT Administration Apixaban 5 mg 05/05/24 21:00 05/06/24 08:45 Apixaban 5 Mg Tab PO 5 mg BID INDERJIT Administration Protocol Atorvastatin Calcium 80 mg 05/06/24 09:00 05/06/24 08:45 Atorvastatin 80 Mg Tab PO 80 mg DAILY INDERJIT Administration Benzonatate 200 mg 05/05/24 22:00 05/06/24 05:45 Benzonatate 100 Mg Cap PO 200 mg TID INDERJIT Administration Carvedilol 25 mg 05/05/24 19:30 05/06/24 07:45 Carvedilol 12.5 Mg Tab PO 25 mg BID-W/MEALS INDERJIT Administration Dapagliflozin 10 mg 05/06/24 09:00 05/06/24 08:45 Dapagliflozin Propanediol 10 Mg Tablet PO 10 mg DAILY INDERJIT Administration Ezetimibe 10 mg 05/06/24 09:00 05/06/24 08:45 Ezetimibe 10 Mg Tab PO 10 mg DAILY INDERJIT Administration Furosemide 40 mg 05/05/24 17:30 05/06/24 08:46 Furosemide 10 Mg/Ml 4 Ml Vial IV 40 mg Q8H INDERJIT Administration Gabapentin 300 mg 05/05/24 21:00 05/06/24 09:03 Gabapentin 300 Mg Cap PO 300 mg BID INDERJIT Administration Hydralazine HCl 25 mg 05/05/24 22:00 05/06/24 08:46 Hydralazine Hcl 25 Mg Tab PO 25 mg TID INDERJIT Administration Insulin Glargine 30 unit 05/05/24 21:00 05/05/24 21:34 Insulin Glargine (Lantus) 100 Unit/Ml Syr SQ 30 unit HS INDERJIT Administration Insulin Human Lispro 9 unit 05/06/24 07:30 05/06/24 08:45 Insulin Lispro (Humalog) 100 Unit/Ml 10 Ml Vl SQ 9 unit TID-W/MEALS INDERJIT Administration Losartan Potassium 100 mg 05/05/24 18:45 05/06/24 08:45 Losartan 50 Mg Tab PO 100 mg DAILY INDERJIT Administration Metformin HCl 1,000 mg 05/05/24 21:00 05/06/24 08:45 Metformin 500 Mg Tab PO 1,000 mg BID INDERJIT Administration Intake and Output 05/05/24 05/06/24 05/06/24 22:59 06:59 14:59 Other: # Voids 2 Weight 74.843 kg 05/05/24 15:53 05/06/24 05:48
[2024-05-06] MEDS: POTASSIUM CHLORIDE ER 20 MEQ TAB.ER PO SCH (12:06)
[2024-05-06 12:16] LABS: Glucose,Whole Blood 113 mg/dL (70-110)
--- NOTE | 2024-05-06 12:47 | P.PN ---
Subjective Progress Note Date: 05/06/24 HISTORY OF PRESENT ILLNESS: This is a 59-year-old male patient of rosita and Dr. Ga with past medical history of coronary artery disease status post 6 vessel CABG 2006 with MAE to LAD, saphenous venous graft to the PDA, saphenous venous graft to the obtuse marginal one, radial artery to the obtuse marginal branch 2 and saphenous venous graft to the obtuse marginal 3 followed by heart catheterization with PCI and stent of the saphenous venous graft to the RCA in 2015 at which time he pres ented with non-ST elevated myocardial infarction. Most recent cardiac catheterization was performed on 04/10/2022 which revealed severe triple-vessel coronary artery disease with a patent ramus intermediate, patent SVG to the OM, patent MAE to the LAD, and occluded saphenous vein graft to the RCA which is chronic from before. Medical therapy was advised at that time. History of hypertension, hypertensive cardiovascular disease with left ventricular hypertrophy, hyperlipidemia, ischemic cardiomyopathy, paroxysmal atrial fibrillation, currently on Eliquis, diabetes mellitus type 2 with diabetic polyneuropathy, hyperlipidemia, asthma, obstructive sleep apnea on CPAP, chronic low back pain, DVT in the past, patient was recently hospitalized at [facility] between 06/05/2023 and discharged 06/15/2023 after he was admitted for GI bleed due to esophageal ulcer. Patient had EGD and incomplete colonoscopy due to poor prep at that time. Patient presented to the ER at [facility] due to increased cough and increased shortness of breath, was complaining of increased edema in both legs and ws seen by Isaiah Pena and PCR was negative for COVID-19. Influenza A, B annd RSV, CXR showed evidence of CHF with bilateral pleural effusion, with elevated BNP, was started on Furosemide 40 mg IVP q 8 h and was admitted to the hospital for acute on chronic systolic heart failure 05/06: Patient sitting up in bed in no apparent distress, he is feeling better today, he denies any chest pain, shortness of breath, he continues to have a significant coughing, no phlegm production, he continues to complain of pleurisy in his chest, I will start the patient on Solu-Medrol 40 mg a push every 8 ho urs DuoNeb 3 nebulization 4 times every day, also Pulmicort 1 mg nebulization twice every day, follow-up with the patient very closely he swelling is a bit better today, his potassium is down we will start potassium supplement 20 mg orally twice every day, follow-up with the patient labs in the next 24 hours, continue current treatment plan, patient was seen in consultation by cardiology recommended to continue current treatment plan REVIEW OF SYSTEMS: Constitutional: No documented fever, no chills, no night sweats. No weight change. Positive for weakness, positive for fatigue, no lethargy. No daytime sleepiness. HEENT: No headache. No blurred vision or double vision, no loss of vision. No loss of Hearing, no ringing in the ears, no dizziness. No nasal drainage or congestion. No epistaxis. No sore throat. Lungs: positive for shortness of breath, occasional cough, minimal sputum production. no wheezing. Reports dyspnea with activity. Cardiovascular: no chest pain, positive for lower extremity edema. No palpitations. No paroxysmal nocturnal dyspnea. No orthopnea. positive for lightheadedness or dizziness. No syncopal episodes. Abdominal: Reports no abdominal pain. no nausea, vomiting. No diarrhea. No constipation. No bloody or tarry stools reports loss of appetite. Genitourinary: No dysuria, increased frequency, urgency. No urinary retention. Musculoskeletal: No myalgias. positive for muscle weakness, no gait dysfunction, frequent falls. No back pain. No neck pain. Integumentary: scabbed wounds to left caballero , no lesions. No rash or pruritus. No unusual bruising. No change in hair or nails. Neurologic: No aphasia. Minimal facial droop. No change in mentation. No head injury. No headache, minimal drift. Psychiatric: positive for depression. No anxiety. No mood swings. Endocrine: abnormal blood sugars. No weight change. PHYSICAL EXAMINATION: General: 59-year-old male laying down in no distress. HEENT: Head is atraumatic, normocephalic, pupils were equal round reactive to light and recommendation, extraocular muscle movement were intact, sclera nonicteric, conjunctivae were pale, mucous membranes of the mouth are somewhat dry. Neck: Supple, no JVP, normal carotid upstroke bilaterally, no lymphadenopathy. Chest: Decreased breath sounds at the bases, few rhonchi no expirratory wheezes,, no chest wall tenderness, no intercostal retractions. Heart: First heart sound is normal, second heart sounds normal, irregularly irregular, there is systolic ejection murmur 2/6 located in the left sternal border. Abdomen: Soft, nontender, nondistended, positive bowel sounds, there is no hepatosplenomegaly Extremities: There is +2 edema no calf tenderness DP +1 bilaterally. Neurologic examination: Patient is awake alert and oriented X 3, cranial nerves II-12 appear grossly intact, muscle power were 4 out of 5 in upper extremities and 4 out of 5 in bilateral lower extremities, deep tendon reflexes normal bilaterally. Minimal right facial droop, and right leg weakness. ASSESSMENT AND PLAN: 1. Acute on chronic systolic heart failure . we will start Furosemide 40 mg IVP q 8 hours , we will continue with Losartan 100 mg po daily, Carvedilol 25 mg po bid , monitor input annd output and daily weight, Cardiology consult 2. Hyponatremia due to hypervolemia. we will continue with Furosemide 40 mg IVP q 8 h and we will repeat CMP in AM . 3. COPD with mild exacerbation. Start the patient on Solu-Medrol 40 mg IV push every 8 hours, start DuoNeb 3 mL nebulization 4 times every day, Pulmicort 1 mg nebulization twice every day, continue Tessalon Perles 200 mg orally 3 times every day, follow-up with the patient very closely. 4. Hypertension and hypertensive cardiovascular disease. Continue the patient on losartan 100 mg orally once every day, continue patient on Carvedilol 25 mg orally twice every day, continue Amlodipine 5 mg po daily, continue with Hydralazine as well and monitor BP very closely. 5. Diabetes mellitus type 2. Restart the patient on Lantus 30 units at bedtime along with a sliding scale insulin, we will continue with Humalog 9 units before each meal, continue with Metformin 1000 mg po bid and Farxiga 10 mg po daily, we will start SSI 6. Coronary artery disease status post CABG 6 as well as PCI in the past. Continue patient on ASA 81 mg once every day, Carvedilol 25 mg orally twice every day, continue patient on atorvastatin 80 mg orally once every day, cont inue Zetia 10 mg orally once every day. 7. Hyperlipidemia. Continue patient on atorvastatin 80 mg once every day, continue Zetia 10 mg orally once every day, monitor lipid panel, keep LDL 55-70. 8. Diabetic polyneuropathy. Continue patient on gabapentin 900 mg orally 2 times every day. 9. Obstructive sleep apnea. Patient does have a CPAP at home. 10. Chronic systolic heart failure. Continue with Furosemide 40 mg IVP q 8 h , Carvedilol 25 mg po bid and add Farxiga 10 mg po daily. 11. Paroxysmal atrial fibrillation . Continue patient on Coreg 25 mg orally twice every day, Eliquis 5 mg po bid. 12. DVT prophylaxis. Continue Eliquis 5 mg orally twice every day. 13. GI prophylaxis. Continue Protonix 40 mg orally bid 14. History of CVA in the past recovered well, e will continue with Atorvastatin 80 mg po daily and Eliquis for life we will repeat labs tomorrow morning for 15. We will repeat labs tomorrow morning 16. Hypokalemia status post replacement Objective - Vital Signs Vital signs: Vital Signs Temp 97.6 F 05/06/24 07:00 Pulse 64 05/06/24 07:00 Resp 15 05/06/24 07:00 BP 135/64 05/06/24 07:00 Pulse Ox 94 L 05/06/24 07:00 FiO2 Intake & Output 05/05/24 05/06/24 05/06/24 18:59 06:59 18:59 Weight 74.843 kg 74.843 kg 74.843 kg Other: # Voids 2 - Labs CBC & Chem 7: 05/06/24 05:48 05/06/24 05:48 Labs: Abnormal Lab Results - Last 24 Hours (Table) 05/05/24 05/05/24 05/05/24 Range/Units 15:53 15:53 21:32 MCH (27.0-32.0) pg MCHC 29.9 L (31.0-37.0) g/dL RDW 16.4 H (11.5-15.5) % Lymphocytes # 0.7 L (1.0-4.8) k/uL Sodium 135 L (137-145) mmol/L Potassium (3.5-5.5) mmol/L Carbon Dioxide 21 L (22-30) mmol/L Anion Gap (4.00-12.00) mmol/L BUN 25 H (9-20) mg/dL Est GFR (CKD-EPI) (>=60) Glucose 381 H (74-99) mg/dL POC Glucose (mg/dL) 379 H (70-110) mg/dL Calcium (8.7-10.3) mg/dL Alkaline Phosphatase 191 H (38-126) U/L Total Protein (6.2-8.2) g/dL Albumin 3.3 L (3.5-5.0) g/dL Albumin/Globulin Ratio (1.60-3.17) Ratio 05/06/24 05/06/24 05/06/24 Range/Units 05:48 05:48 06:11 MCH 25.7 L (27.0-32.0) pg MCHC 31.8 L (31.0-37.0) g/dL RDW 16.6 H (11.5-15.5) % Lymphocytes # 0.84 L (1.0-4.8) k/uL Sodium (137-145) mmol/L Potassium 3.3 L (3.5-5.5) mmol/L Carbon Dioxide (22-30) mmol/L Anion Gap 12.40 H (4.00-12.00) mmol/L BUN (9-20) mg/dL Est GFR (CKD-EPI) 57 L (>=60) Glucose 238 H (74-99) mg/dL POC Glucose (mg/dL) 223 H (70-110) mg/dL Calcium 8.5 L (8.7-10.3) mg/dL Alkaline Phosphatase 173 H (38-126) U/L Total Protein 5.8 L (6.2-8.2) g/dL Albumin 3.2 L (3.5-5.0) g/dL Albumin/Globulin Ratio 1.23 L (1.60-3.17) Ratio
[2024-05-06 13:46] VITALS: BMI 25.8
[2024-05-06] MEDS: IPRATROPIUM-ALBUTEROL 3 ML NEB INHALATION SCH (15:23)
[2024-05-06] MEDS: methylPREDNISolone SOD SUCCI 40 MG/ML 1 ML VIAL IV SCH (16:44)
[2024-05-06 17:13] LABS: Glucose,Whole Blood 141 mg/dL (70-110)
[2024-05-06] MEDS: BUDESONIDE 1 MG/2 ML NEBU INHALATION SCH (18:40)
[2024-05-06 19:58] LABS: Glucose,Whole Blood 111 mg/dL (70-110)
[2024-05-07 06:04] LABS: Glucose,Whole Blood 281 mg/dL (70-110)
[2024-05-07] MEDS: FUROSEMIDE 10 MG/ML 4 ML VIAL IV SCH (09:01)
[2024-05-07 09:20] LABS: BUN/Creat Ratio 19.89 Ratio (12.00-20.00); Basophils # (A) 0.01 X 10*3/uL (0.00-0.10); Basophils % (A) 0.1 %; Blood Urea Nitrogen 35.8 mg/dL (9.0-27.0); Chloride 104 mmol/L (96-109); Eosinophils # (A) 0 X 10*3/uL (0.04-0.35); Eosinophils % (A) 0 %; Glucose 257 mg/dL (70-110); HCT 40.1 % (39.6-50.0); HGB 12.7 g/dL (13.0-17.0); Lymphocytes # (A) 0.38 X 10*3/uL (0.90-5.00); Lymphocytes % (A) 4.7 %; MCH 25.5 pg (27.0-32.0); MCHC 31.7 g/dL (32.0-37.0); MCV 80.5 FL (80.0-97.0); Magnesium 1.7 mg/dL (1.5-2.4); Mean Platelet Volume 11.4 FL (9.5-12.2); Monocytes # (A) 0.06 X 10*3/uL (0.20-1.00); Monocytes % (A) 0.7 %; NRBC Per 100 WBC 0 X 10*3/uL (0.00-0.01); Neutrophils # (A) 7.67 X 10*3/uL (1.80-7.70); Neutrophils % (A) 93.9 %; Platelet Count 182 X 10*3/uL (140-440); Potassium 3.5 mmol/L (3.5-5.5); RBC 4.98 X 10*6/uL (4.40-5.60); RDW 16.7 % (11.5-14.5); Sodium 142 mmol/L (135-145); WBC 8.17 X 10*3/uL (4.50-10.00)
[2024-05-07 09:21] LABS: ALT 16 U/L (10-49); AST 24 U/L (14-35); Albumin 3.2 g/dL (3.8-4.9); Albumin/Globulin Ratio 1.23 Ratio (1.60-3.17); Alkaline Phosphatase 166 U/L (41-126); Calcium 8.6 mg/dL (8.7-10.3); Carbon Dioxide 23.3 mmol/L (21.6-31.8); Globulin 2.6 g/dL (1.6-3.3); Total Bilirubin 0.9 mg/dL (0.3-1.2); Total Protein 5.8 g/dL (6.2-8.2)
--- NOTE | 2024-05-07 10:41 | P.PN ---
Subjective HISTORY OF PRESENT ILLNESS: This is a 59-year-old male with a past medical history significant for coronary artery disease with previous CABG and stenting, hypertension, hyperlipidemia, diabetes, CVA, atrial fibrillation, and GI bleed. Patient follows in the office with Dr. Ga. We have been asked to see the patient in consultation for CHF. Patient examined at the bedside. Patient presented to the hospital for chief complaint of shortness of breath. Patient states for the past 3 to 4 days he has been progressively getting more short of breath at home. He also reports having a frequent cough. He denies any fever or sick contacts. DIAGNOSTICS: - EKG reveals atrial fibrillation with controlled ventricular rate - Chest xray cardiomegaly with new small bilateral pleural effusions. Findings concerning for CHF exacerbation/fluid overload state. - Laboratory data: WBC 7.8. Hemoglobin 13.4. Platelet count 175. Sodium 143. Potassium 3.3. BUN 25. Creatinine 1.4. Troponin negative x 1. proBNP 6130. - Current home cardiac medications include hydralazine 25 mg 3 times daily, carvedilol 25 mg twice a day, amlodipine 5 mg daily, losartan 100 mg daily, Lasix 40 mg twice a day, Zetia 10 mg daily, Farxiga 10 mg daily, Lipitor 80 mg daily, and Eliquis 5 mg twice a day. - Most recent echocardiogram obtained in May 2023 revealed ejection fraction 40 to 45%, severe pulmonary hypertension, moderate posteriorly directed mitral regurgitation and severe tricuspid regurgitation - Cardiac catheterization history: March 2022 revealing severe triple-vessel disease. Patent stented segment in the ramus intermedius and proximal left circumflex. Patent MAE to LAD. Patent SVG to OM. Chronically occluded SVG to RCA and diagonal branch. No significant progression of disease since 2019. Medical management was recommended. 05/07/2024 Patient examined this morning at the bedside. Patient currently denies chest pain or pressure. He continues to report shortness of breath with a frequent cough. He remains on IV Lasix every 8 hours. Creatinine today 1.8. 2D echo remains pending. PHYSICAL EXAM: VITAL SIGNS: Reviewed. GENERAL: Well-developed in no acute distress. HEENT: Head is normocephalic. Pupils are equal, round. Sclerae anicteric. Mucous membranes of the mouth are moist. Neck supple. No JVD or thyromegaly LUNGS: Respirations even and unlabored. Lungs with expiratory wheezing noted. HEART: Irregular rate and rhythm. S1 and S2 heard. ABDOMEN: Soft. Nondistended. Nontender. EXTREMITIES: Normal range of motion. No clubbing or cyanosis. Peripheral pulses intact. 1+ bilateral lower extremity edema noted NEUROLOGIC: Awake and alert. Oriented x 3. ASSESSMENT: Shortness of breath Acute on chronic heart failure with reduced EF, 40 to 45% Coronary artery disease with previous three-vessel CABG and known chronically occluded SVG to RCA and diagonal branch Ischemic cardiomyopathy Persistent atrial fibrillation with controlled ventricular rate Hypertension Hyperlipidemia Diabetes CVA History of GI bleed Acute kidney injury PLAN: 2D echo ordered. Await results. Decrease Lasix to 40 mg daily due to worsening creatinine Daily weights, accurate intake and output, monitoring of kidney function Continue additional cardiac medications including amlodipine, Eliquis, atorvastatin, carvedilol, Farxiga, Zetia, hydralazine, and losartan Further recommendations pending patient course Nurse practitioner note has been reviewed by physician. Signing provider agrees with the documented findings, assessment, and plan of care documented by LUCERNE FARMER as a scribe. Objective - Vital Signs Vital signs: Vital Signs Temp 98.0 F 05/07/24 07:00 Pulse 84 05/07/24 08:15 Resp 15 05/07/24 07:00 BP 166/78 05/07/24 07:00 Pulse Ox 92 L 05/07/24 08:04 FiO2 Intake & Output 05/06/24 05/07/24 05/07/24 18:59 06:59 18:59 Intake Total 236 Balance 236 Weight 74.843 kg 82 kg Intake: Oral 236 Other: Voiding Method Urinal - Labs CBC & Chem 7: 05/07/24 04:00 05/07/24 04:00 Labs: Abnormal Lab Results - Last 24 Hours (Table) 05/06/24 05/06/24 05/06/24 Range/Units 12:15 17:12 19:57 Hgb (13.0-17.0) g/dL MCH (27.0-32.0) pg MCHC (32.0-37.0) g/dL RDW (11.5-14.5) % Immature Gran # (0.00-0.04) X 10*3/uL Lymphocytes # (0.90-5.00) X 10*3/uL Monocytes # (0.20-1.00) X 10*3/uL Eosinophils # (0.04-0.35) X 10*3/uL Anion Gap (4.00-12.00) mmol/L BUN (9.0-27.0) mg/dL Creatinine (0.6-1.5) mg/dL Est GFR (CKD-EPI) (>=60) Glucose (70-110) mg/dL POC Glucose (mg/dL) 113 H 141 H 111 H (70-110) mg/dL Calcium (8.7-10.3) mg/dL Alkaline Phosphatase (41-126) U/L Total Protein (6.2-8.2) g/dL Albumin (3.8-4.9) g/dL Albumin/Globulin Ratio (1.60-3.17) Ratio 05/07/24 05/07/24 05/07/24 Range/Units 04:00 04:00 06:03 Hgb 12.7 L (13.0-17.0) g/dL MCH 25.5 L (27.0-32.0) pg MCHC 31.7 L (32.0-37.0) g/dL RDW 16.7 H (11.5-14.5) % Immature Gran # 0.05 H (0.00-0.04) X 10*3/uL Lymphocytes # 0.38 L (0.90-5.00) X 10*3/uL Monocytes # 0.06 L (0.20-1.00) X 10*3/uL Eosinophils # 0 L (0.04-0.35) X 10*3/uL Anion Gap 14.70 H (4.00-12.00) mmol/L BUN 35.8 H (9.0-27.0) mg/dL Creatinine 1.8 H (0.6-1.5) mg/dL Est GFR (CKD-EPI) 42 L (>=60) Glucose 257 H (70-110) mg/dL POC Glucose (mg/dL) 281 H (70-110) mg/dL Calcium 8.6 L (8.7-10.3) mg/dL Alkaline Phosphatase 166 H (41-126) U/L Total Protein 5.8 L (6.2-8.2) g/dL Albumin 3.2 L (3.8-4.9) g/dL Albumin/Globulin Ratio 1.23 L (1.60-3.17) Ratio
--- NOTE | 2024-05-07 11:47 | P.PN ---
Subjective Progress Note Date: 05/07/24 HISTORY OF PRESENT ILLNESS: This is a 59-year-old male patient of rosita and Dr. Ga with past medical history of coronary artery disease status post 6 vessel CABG 2006 with MAE to LAD, saphenous venous graft to the PDA, saphenous venous graft to the obtuse marginal one, radial artery to the obtuse marginal branch 2 and saphenous venous graft to the obtuse marginal 3 followed by heart catheterization with PCI and stent of the saphenous venous graft to the RCA in 2015 at which time he pres ented with non-ST elevated myocardial infarction. Most recent cardiac catheterization was performed on 04/10/2022 which revealed severe triple-vessel coronary artery disease with a patent ramus intermediate, patent SVG to the OM, patent MAE to the LAD, and occluded saphenous vein graft to the RCA which is chronic from before. Medical therapy was advised at that time. History of hypertension, hypertensive cardiovascular disease with left ventricular hypertrophy, hyperlipidemia, ischemic cardiomyopathy, paroxysmal atrial fibrillation, currently on Eliquis, diabetes mellitus type 2 with diabetic polyneuropathy, hyperlipidemia, asthma, obstructive sleep apnea on CPAP, chronic low back pain, DVT in the past, patient was recently hospitalized at [facility] between 06/05/2023 and discharged 06/15/2023 after he was admitted for GI bleed due to esophageal ulcer. Patient had EGD and incomplete colonoscopy due to poor prep at that time. Patient presented to the ER at [facility] due to increased cough and increased shortness of breath, was complaining of increased edema in both legs and ws seen by Isaiah Pena and PCR was negative for COVID-19. Influenza A, B annd RSV, CXR showed evidence of CHF with bilateral pleural effusion, with elevated BNP, was started on Furosemide 40 mg IVP q 8 h and was admitted to the hospital for acute on chronic systolic heart failure 05/06: Patient sitting up in bed in no apparent distress, he is feeling better today, he denies any chest pain, shortness of breath, he continues to have a significant coughing, no phlegm production, he continues to complain of pleurisy in his chest, I will start the patient on Solu-Medrol 40 mg a push every 8 ho Pio bianchioNeb 3 nebulization 4 times every day, also Pulmicort 1 mg nebulization twice every day, follow-up with the patient very closely he swelling is a bit better today, his potassium is down we will start potassium supplement 20 mg orally twice every day, follow-up with the patient labs in the next 24 hours, continue current treatment plan, patient was seen in consultation by cardiology recommended to continue current treatment plan 05/07: Patient is feeling better today, he is having less coughing, no chest pain or shortness of breath, he continues to have minimal pleurisy, he has been star raquel on Solu-Medrol 40 mg IV push every 8 hours we will decrease that to every 12 hours, continue with Tessalon Perles 200 mg orally 3 times every day, continue with nebulized treatment in the form of DuoNeb and Pulmicort, hopefully patient will be able to be discharged home in the next 24 hours. Allergy has seen the patient, and they recommended to continue same treatment plan. I will decrease IV Lasix to 40 mg IV push every 12 hours REVIEW OF SYSTEMS: Constitutional: No documented fever, no chills, no night sweats. No weight change. Positive for weakness, positive for fatigue, no lethargy. No daytime sleepiness. HEENT: No headache. No blurred vision or double vision, no loss of vision. No loss of Hearing, no ringing in the ears, no dizziness. No nasal drainage or congestion. No epistaxis. No sore throat. Lungs: positive for shortness of breath, occasional cough, minimal sputum production. no wheezing. Reports dyspnea with activity. Cardiovascular: no chest pain, positive for lower extremity edema. No palpitations. No paroxysmal nocturnal dyspnea. No orthopnea. positive for lightheadedness or dizziness. No syncopal episodes. Abdominal: Reports no abdominal pain. no nausea, vomiting. No diarrhea. No constipation. No bloody or tarry stools reports loss of appetite. Genitourinary: No dysuria, increased frequency, urgency. No urinary retention. Musculoskeletal: No myalgias. positive for muscle weakness, no gait dysfunction, frequent falls. No back pain. No neck pain. Integumentary: scabbed wounds to left caballero , no lesions. No rash or pruritus. No unusual bruising. No change in hair or nails. Neurologic: No aphasia. Minimal facial droop. No change in mentation. No head injury. No headache, minimal drift. Psychiatric: positive for depression. No anxiety. No mood swings. Endocrine: abnormal blood sugars. No weight change. PHYSICAL EXAMINATION: General: 59-year-old male laying down in no distress. HEENT: Head is atraumatic, normocephalic, pupils were equal round reactive to light and recommendation, extraocular muscle movement were intact, sclera nonicteric, conjunctivae were pale, mucous membranes of the mouth are somewhat dry. Neck: Supple, no JVP, normal carotid upstroke bilaterally, no lymphadenopathy. Chest: Decreased breath sounds at the bases, few rhonchi no expirratory wheezes,, no chest wall tenderness, no intercostal retractions. Heart: First heart sound is normal, second heart sounds normal, irregularly irregular, there is systolic ejection murmur 2/6 located in the left sternal border. Abdomen: Soft, nontender, nondistended, positive bowel sounds, there is no hepatosplenomegaly Extremities: There is +2 edema no calf tenderness DP +1 bilaterally. Neurologic examination: Patient is awake alert and oriented X 3, cranial nerves II-12 appear grossly intact, muscle power were 4 out of 5 in upper extremities and 4 out of 5 in bilateral lower extremities, deep tendon reflexes normal bilaterally. Minimal right facial droop, and right leg weakness. ASSESSMENT AND PLAN: 1. Acute on chronic systolic heart failure . decreased furosemide 40 mg IVP q 12 hours , we will continue with Losartan 100 mg po daily, Carvedilol 25 mg po bid , monitor input annd output and daily weight, cardiology consultation appreciated 2. Hyponatremia due to hypervolemia. we will continue with Furosemide 40 mg IVP q 12 h we will switch to oral Lasix tomorrow morning and patient can be discharged home tomorrow morning. 3. COPD with mild exacerbation. Continue patient on Solu-Medrol 40 mg IV push every 12 hours, DuoNeb 3 mL nebulization 4 times every day, Pulmicort 1 mg nebulization twice every day, continue Tessalon Perles 200 mg orally 3 times every day, follow-up with the patient very closely. 4. Hypertension and hypertensive cardiovascular disease. Continue the patient on losartan 100 mg orally once every day, continue patient on Carvedilol 25 mg orally twice every day, continue Amlodipine 5 mg po daily, continue with Hydralazine as well and monitor BP very closely. 5. Diabetes mellitus type 2 with steroid-induced hyperglycemia. we will maintain patient on Lantus 30 units at bedtime along with a sliding scale insulin, we will continue with Humalog 9 units before each meal, continue with Metformin 1000 mg po bid and Farxiga 10 mg po daily, along with a sliding scale insulin. 6. Coronary artery disease status post CABG 6 as well as PCI in the past. Continue patient on ASA 81 mg once every day, Carvedilol 25 mg orally twice every day, continue patient on atorvastatin 80 mg orally once every day, continue Zetia 10 mg orally once every day. 7. Hyperlipidemia. Continue patient on atorvastatin 80 mg once every day, continue Zetia 10 mg orally once every day, monitor lipid panel, keep LDL 55-70. 8. Diabetic polyneuropathy. Continue patient on gabapentin 900 mg orally 2 times every day. 9. Obstructive sleep apnea. Patient does have a CPAP at home. 10. Chronic systolic heart failure. Continue with Furosemide 40 mg IVP q 12 h , Carvedilol 25 mg po bid and add Farxiga 10 mg po daily. 11. Paroxysmal atrial fibrillation . Continue patient on Coreg 25 mg orally twice every day, Eliquis 5 mg po bid. 12. DVT prophylaxis. Continue Eliquis 5 mg orally twice every day. 13. GI prophylaxis. Continue Protonix 40 mg orally bid 14. History of CVA in the past recovered well, e will continue with Atorvastatin 80 mg po daily and Eliquis for life we will repeat labs tomorrow morning for 15. Hypokalemia status post replacement. 16. Home tomorrow morning. Objective - Vital Signs Vital signs: Vital Signs Temp 98.0 F 05/07/24 07:00 Pulse 84 05/07/24 08:15 Resp 15 05/07/24 07:00 BP 166/78 05/07/24 07:00 Pulse Ox 92 L 05/07/24 08:04 FiO2 Intake & Output 05/06/24 05/07/24 05/07/24 18:59 06:59 18:59 Intake Total 236 Balance 236 Weight 74.843 kg 82 kg Intake: Oral 236 Other: Voiding Method Urinal - Labs CBC & Chem 7: 05/07/24 04:00 05/07/24 04:00 Labs: Abnormal Lab Results - Last 24 Hours (Table) 05/06/24 05/06/24 05/06/24 Range/Units 05:48 12:15 17:12 Hgb (13.0-17.0) g/dL MCH 25.7 L (27.0-32.0) pg MCHC 31.8 L (32.0-37.0) g/dL RDW 16.6 H (11.5-14.5) % Immature Gran # (0.00-0.04) X 10*3/uL Lymphocytes # 0.84 L (0.90-5.00) X 10*3/uL Monocytes # (0.20-1.00) X 10*3/uL Eosinophils # (0.04-0.35) X 10*3/uL Anion Gap (4.00-12.00) mmol/L BUN (9.0-27.0) mg/dL Creatinine (0.6-1.5) mg/dL Est GFR (CKD-EPI) (>=60) Glucose (70-110) mg/dL POC Glucose (mg/dL) 113 H 141 H (70-110) mg/dL Calcium (8.7-10.3) mg/dL Alkaline Phosphatase (41-126) U/L Total Protein (6.2-8.2) g/dL Albumin (3.8-4.9) g/dL Albumin/Globulin Ratio (1.60-3.17) Ratio 05/06/24 05/07/24 05/07/24 Range/Units 19:57 04:00 04:00 Hgb 12.7 L (13.0-17.0) g/dL MCH 25.5 L (27.0-32.0) pg MCHC 31.7 L (32.0-37.0) g/dL RDW 16.7 H (11.5-14.5) % Immature Gran # 0.05 H (0.00-0.04) X 10*3/uL Lymphocytes # 0.38 L (0.90-5.00) X 10*3/uL Monocytes # 0.06 L (0.20-1.00) X 10*3/uL Eosinophils # 0 L (0.04-0.35) X 10*3/uL Anion Gap 14.70 H (4.00-12.00) mmol/L BUN 35.8 H (9.0-27.0) mg/dL Creatinine 1.8 H (0.6-1.5) mg/dL Est GFR (CKD-EPI) 42 L (>=60) Glucose 257 H (70-110) mg/dL POC Glucose (mg/dL) 111 H (70-110) mg/dL Calcium 8.6 L (8.7-10.3) mg/dL Alkaline Phosphatase 166 H (41-126) U/L Total Protein 5.8 L (6.2-8.2) g/dL Albumin 3.2 L (3.8-4.9) g/dL Albumin/Globulin Ratio 1.23 L (1.60-3.17) Ratio / Range/Units 06:03 Hgb (13.0-17.0) g/dL MCH (27.0-32.0) pg MCHC (32.0-37.0) g/dL RDW (11.5-14.5) % Immature Gran # (0.00-0.04) X 10*3/uL Lymphocytes # (0.90-5.00) X 10*3/uL Monocytes # (0.20-1.00) X 10*3/uL Eosinophils # (0.04-0.35) X 10*3/uL Anion Gap (4.00-12.00) mmol/L BUN (9.0-27.0) mg/dL Creatinine (0.6-1.5) mg/dL Est GFR (CKD-EPI) (>=60) Glucose (70-110) mg/dL POC Glucose (mg/dL) 281 H (70-110) mg/dL Calcium (8.7-10.3) mg/dL Alkaline Phosphatase (41-126) U/L Total Protein (6.2-8.2) g/dL Albumin (3.8-4.9) g/dL Albumin/Globulin Ratio (1.60-3.17) Ratio
[2024-05-07 11:54] LABS: Glucose,Whole Blood 246 mg/dL (70-110)
[2024-05-07] MEDS: AZITHROMYCIN 500 MG TAB PO SCH (17:05)
[2024-05-07] MEDS: MORPHINE SULFATE 2 MG/ML SYRINGE IVP STA (17:05)
[2024-05-07] MEDS: LIDOCAINE 4% PATCH TOPICAL SCH (17:06)
[2024-05-07 18:08] LABS: Glucose,Whole Blood 220 mg/dL (70-110)
[2024-05-07 20:34] LABS: Glucose,Whole Blood 251 mg/dL (70-110)
[2024-05-07] MEDS: methylPREDNISolone SOD SUCCI 40 MG/ML 1 ML VIAL IV SCH (21:33)
[2024-05-07] MEDS: MORPHINE SULFATE 2 MG/ML SYRINGE IVP PRN (21:33)
[2024-05-08 06:11] LABS: Glucose,Whole Blood 210 mg/dL (70-110)
[2024-05-08] MEDS: SYMBICORT 160-4.5 MCG INHALER INHALATION SCH (08:48)
[2024-05-08] MEDS ORDERED: FUROSEMIDE 10 MG/ML 4 ML VIAL IV SCH (09:00)
[2024-05-08] MEDS: predniSONE 20 MG TAB PO SCH (09:01)
[2024-05-08] MEDS: FUROSEMIDE 40 MG TAB PO SCH (09:01)
[2024-05-08 09:07] LABS: Glucose,Whole Blood 192 mg/dL (70-110)
[2024-05-08 09:34] LABS: Basophils # (A) 0.02 X 10*3/uL (0.00-0.10); Basophils % (A) 0.1 %; Eosinophils # (A) 0.01 X 10*3/uL (0.04-0.35); Eosinophils % (A) 0.1 %; HCT 43.1 % (39.6-50.0); HGB 13.5 g/dL (13.0-17.0); Lymphocytes # (A) 0.65 X 10*3/uL (0.90-5.00); Lymphocytes % (A) 3.7 %; MCH 25.6 pg (27.0-32.0); MCHC 31.3 g/dL (32.0-37.0); MCV 81.8 FL (80.0-97.0); Mean Platelet Volume 11.4 FL (9.5-12.2); Monocytes # (A) 0.51 X 10*3/uL (0.20-1.00); Monocytes % (A) 2.9 %; NRBC Per 100 WBC 0 X 10*3/uL (0.00-0.01); Neutrophils # (A) 16.34 X 10*3/uL (1.80-7.70); Neutrophils % (A) 92.6 %; Platelet Count 181 X 10*3/uL (140-440); RBC 5.27 X 10*6/uL (4.40-5.60); RDW 16.9 % (11.5-14.5); WBC 17.64 X 10*3/uL (4.50-10.00)
[2024-05-08 09:42] LABS: ALT 18 U/L (10-49); AST 19 U/L (14-35); Albumin 3.5 g/dL (3.8-4.9); Albumin/Globulin Ratio 1.25 Ratio (1.60-3.17); Alkaline Phosphatase 159 U/L (41-126); BUN/Creat Ratio 25.68 Ratio (12.00-20.00); Blood Urea Nitrogen 48.8 mg/dL (9.0-27.0); Calcium 8.8 mg/dL (8.7-10.3); Chloride 102 mmol/L (96-109); Globulin 2.8 g/dL (1.6-3.3); Glucose 236 mg/dL (70-110); Potassium 4.4 mmol/L (3.5-5.5); Sodium 141 mmol/L (135-145); Total Bilirubin 0.5 mg/dL (0.3-1.2); Total Protein 6.3 g/dL (6.2-8.2)
--- NOTE | 2024-05-08 10:09 | XR ---
EXAMINATION TYPE: XR chest 2V DATE OF EXAM: 05/08/2024 10:02 AM COMPARISON: Chest radiographs from 05/05/2024 CLINICAL INDICATION: Male, 59 years old with history of CHF follow up; [facility] TECHNIQUE: XR chest 2V Frontal and lateral views of the chest. FINDINGS: Lungs/Pleura: Improved aeration of lungs on today's exam with No evidence of pneumothorax or large pl eural effusion. Pulmonary vascularity: Unremarkable. Heart/mediastinum: Cardiomediastinal silhouette is enlarged and stable. Musculoskeletal: No acute osseous pathology. Midline sternotomy wires are noted. IMPRESSION: . Mild cardiomegaly. Improved aeration of the lungs. [facility], , 05/08/2024 10:07 AM
--- NOTE | 2024-05-08 11:27 | P.PN ---
Subjective Progress Note Date: 05/08/24 HISTORY OF PRESENT ILLNESS: This is a 59-year-old male with a past medical history significant for coronary artery disease with previous CABG and stenting, hypertension, hyperlipidemia, diabetes, CVA, atrial fibrillation, and GI bleed. Patient follows in the office with Dr. Ga. We have been asked to see the patient in consultation for CHF. Patient examined at the bedside. Patient presented to the hospital for chief complaint of shortness of breath. Patient states for the past 3 to 4 days he h as been progressively getting more short of breath at home. He also reports having a frequent cough. He denies any fever or sick contacts. DIAGNOSTICS: - EKG reveals atrial fibrillation with controlled ventricular rate - Chest xray cardiomegaly with new small bilateral pleural effusions. Findings concerning for CHF exacerbation/fluid overload state. - Laboratory data: WBC 7.8. Hemoglobin 13.4. Platelet count 175. Sodium 143. Potassium 3.3. BUN 25. Creatinine 1.4. Troponin negative x 1. proBNP 6130. - Current home cardiac medications include hydralazine 25 mg 3 times daily, carvedilol 25 mg twice a day, amlodipine 5 mg daily, losartan 100 mg daily, Lasix 40 mg twice a day, Zetia 10 mg daily, Farxiga 10 mg daily, Lipitor 80 mg daily, and Eliquis 5 mg twice a day. - Most recent echocardiogram obtained in May 2023 revealed ejection fraction 40 to 45%, severe pulmonary hypertension, moderate posteriorly directed mitral regurgitation and severe tricuspid regurgitation - Cardiac catheterization history: March 2022 revealing severe triple-vessel disease. Patent stented segment in the ramus intermedius and proximal left circumflex. Patent MAE to LAD. Patent SVG to OM. Chronically occluded SVG to RCA and diagonal branch. No significant progression of disease since 2019. Medical management was recommended. 05/07/2024 Patient examined this morning at the bedside. Patient currently denies chest pain or pressure. He continues to report shortness of breath with a frequent cough. He remains on IV Lasix every 8 hours. Creatinine today 1.8. 2D echo remains pending. 05/08 Patient seen and examined. No complaints of chest pain or chest pressure. He has been on IV Lasix transition to oral this morning. Blood pressure 152/84, heart rate 62, pulse ox 99% on room air. RUBENS and weights do not appear to be accurate. Repeat blood work reveals WBC 17, hemoglobin 13.5, BUN 48 creatinine 1.9. Repeat chest x-ray reveals mild cardiomegaly. Improved aeration of the lungs. Echocardiogram is pending. PHYSICAL EXAM: VITAL SIGNS: Reviewed. GENERAL: Well-developed in no acute distress. HEENT: Head is normocephalic. Pupils are equal, round. Sclerae anicteric. Mucous membranes of the mouth are moist. Neck supple. No JVD or thyromegaly LUNGS: Respirations even and unlabored. Lungs with expiratory wheezing noted. HEART: Irregular rate and rhythm. S1 and S2 heard. ABDOMEN: Soft. Nondistended. Nontender. EXTREMITIES: No clubbing or cyanosis. Peripheral pulses intact. 1+ bilateral lower extremity edema noted NEUROLOGIC: Awake and alert. Oriented x 3. ASSESSMENT: Shortness of breath Acute on chronic heart failure with reduced EF, 40 to 45% Coronary artery disease with previous three-vessel CABG and known chronically occluded SVG to RCA and diagonal branch Ischemic cardiomyopathy Persistent atrial fibrillation with controlled ventricular rate Hypertension Hyperlipidemia Diabetes CVA History of GI bleed Acute kidney injury PLAN: Continue oral Lasix 40 mg twice daily due to worsening creatinine Daily weights, accurate intake and output, monitoring of kidney function Continue additional cardiac medications including amlodipine, Eliquis, atorvas tatin, carvedilol, Farxiga, Zetia, hydralazine, and losartan Obtain 2D echocardiogram Further recommendations pending patient course Nurse practitioner note has been reviewed by physician. Signing provider agrees with the documented findings, assessment, and plan of care documented by [employer] as a scribe. Objective - Vital Signs Vital signs: Vital Signs Temp 97.8 F 05/08/24 07:00 Pulse 78 05/08/24 09:01 Resp 16 05/08/24 07:00 BP 152/84 05/08/24 07:00 Pulse Ox 99 05/08/24 07:00 FiO2 Intake & Output 05/07/24 05/08/24 05/08/24 18:59 06:59 18:59 Intake Total 1202 Output Total 550 Balance 1202 -550 Weight 82 kg 83.7 kg Intake: Oral 1202 Output: Urine 550 Other: Voiding Method Urinal Urinal - Labs CBC & Chem 7: 05/08/24 04:26 05/08/24 04:26 Labs: Abnormal Lab Results - Last 24 Hours (Table) 05/07/24 05/07/24 05/07/24 Range/Units 11:53 18:07 20:32 POC Glucose (mg/dL) 246 H 220 H 251 H (70-110) mg/dL 05/08/24 05/08/24 Range/Units 06:09 09:06 POC Glucose (mg/dL) 210 H 192 H (70-110) mg/dL
[2024-05-08 11:57] LABS: Glucose,Whole Blood 206 mg/dL (70-110)
--- NOTE | 2024-05-08 13:19 | P.PN ---
Subjective Progress Note Date: 05/08/24 HISTORY OF PRESENT ILLNESS: This is a 59-year-old male patient of rosita and Dr. Ga with past medical history of coronary artery disease status post 6 vessel CABG 2006 with MAE to LAD, saphenous venous graft to the PDA, saphenous venous graft to the obtuse marginal one, radial artery to the obtuse marginal branch 2 and saphenous venous graft to the obtuse marginal 3 followed by heart catheterization with PCI and stent of the saphenous venous graft to the RCA in 2015 at which time he pres ented with non-ST elevated myocardial infarction. Most recent cardiac catheterization was performed on 04/10/2022 which revealed severe triple-vessel coronary artery disease with a patent ramus intermediate, patent SVG to the OM, patent MAE to the LAD, and occluded saphenous vein graft to the RCA which is chronic from before. Medical therapy was advised at that time. History of hypertension, hypertensive cardiovascular disease with left ventricular hypertrophy, hyperlipidemia, ischemic cardiomyopathy, paroxysmal atrial fibrillation, currently on Eliquis, diabetes mellitus type 2 with diabetic polyneuropathy, hyperlipidemia, asthma, obstructive sleep apnea on CPAP, chronic low back pain, DVT in the past, patient was recently hospitalized at [facility] between 06/05/2023 and discharged 06/15/2023 after he was admitted for GI bleed due to esophageal ulcer. Patient had EGD and incomplete colonoscopy due to poor prep at that time. Patient presented to the ER at [facility] due to increased cough and increased shortness of breath, was complaining of increased edema in both legs and ws seen by Isaiah Pean and PCR was negative for COVID-19. Influenza A, B annd RSV, CXR showed evidence of CHF with bilateral pleural effusion, with elevated BNP, was started on Furosemide 40 mg IVP q 8 h and was admitted to the hospital for acute on chronic systolic heart failure 05/06: Patient sitting up in bed in no apparent distress, he is feeling better today, he denies any chest pain, shortness of breath, he continues to have a significant coughing, no phlegm production, he continues to complain of pleurisy in his chest, I will start the patient on Solu-Medrol 40 mg a push every 8 ho Pio bianchioNeb 3 nebulization 4 times every day, also Pulmicort 1 mg nebulization twice every day, follow-up with the patient very closely he swelling is a bit better today, his potassium is down we will start potassium supplement 20 mg orally twice every day, follow-up with the patient labs in the next 24 hours, continue current treatment plan, patient was seen in consultation by cardiology recommended to continue current treatment plan 05/07: Patient is feeling better today, he is having less coughing, no chest pain or shortness of breath, he continues to have minimal pleurisy, he has been star raquel on Solu-Medrol 40 mg IV push every 8 hours we will decrease that to every 12 hours, continue with Tessalon Perles 200 mg orally 3 times every day, continue with nebulized treatment in the form of DuoNeb and Pulmicort, hopefully patient will be able to be discharged home in the next 24 hours. Allergy has seen the patient, and they recommended to continue same treatment plan. I will decrease IV Lasix to 40 mg IV push every 12 hours 05/08: Patient sitting up in bed he is complaining of increased swelling in the right upper extremity more than the left upper extremity, continues to have swel ling both lower extremity, he switched to Lasix 40 mg orally twice every day, discontinued Solu-Medrol, start the patient on prednisone 40 mg once every day, continue Zithromax 500 mg once every day, chest x-ray was done showed improvement in the aeration of the lung, continue current treatment plan, keep the patient hospital for another 24 hours he can be discharged home in the next 24 hours. REVIEW OF SYSTEMS: Constitutional: No documented fever, no chills, no night sweats. No weight change. Positive for weakness, positive for fatigue, no lethargy. No daytime sleepiness. HEENT: No headache. No blurred vision or double vision, no loss of vision. No loss of Hearing, no ringing in the ears, no dizziness. No nasal drainage or congestion. No epistaxis. No sore throat. Lungs: positive for shortness of breath, occasional cough, minimal sputum production. no wheezing. Reports dyspnea with activity. Cardiovascular: no chest pain, positive for lower extremity edema. No palpita tions. No paroxysmal nocturnal dyspnea. No orthopnea. positive for lightheadedness or dizziness. No syncopal episodes. Abdominal: Reports no abdominal pain. no nausea, vomiting. No diarrhea. No constipation. No bloody or tarry stools reports loss of appetite. Genitourinary: No dysuria, increased frequency, urgency. No urinary retention. Musculoskeletal: No myalgias. positive for muscle weakness, no gait dysfunction, frequent falls. No back pain. No neck pain. Integumentary: scabbed wounds to left caballero , no lesions. No rash or pruritus. No unusual bruising. No change in hair or nails. Neurologic: No aphasia. Minimal facial droop. No change in mentation. No head injury. No headache, minimal drift. Psychiatric: positive for depression. No anxiety. No mood swings. Endocrine: abnormal blood sugars. No weight change. PHYSICAL EXAMINATION: General: 59-year-old male laying down in no distress. HEENT: Head is atraumatic, normocephalic, pupils were equal round reactive to light and recommendation, extraocular muscle movement were intact, sclera nonicteric, conjunctivae were pale, mucous membranes of the mouth are somewhat dry. Neck: Supple, no JVP, normal carotid upstroke bilaterally, no lymphadenopathy. Chest: Decreased breath sounds at the bases, few rhonchi no expirratory wheezes,, no chest wall tenderness, no intercostal retractions. Heart: First heart sound is normal, second heart sounds normal, irregularly irregular, there is systolic ejection murmur 2/6 located in the left sternal border. Abdomen: Soft, nontender, nondistended, positive bowel sounds, there is no hepatosplenomegaly Extremities: There is +2 edema no calf tenderness DP +1 bilaterally. Neurologic examination: Patient is awake alert and oriented X 3, cranial nerves II-12 appear grossly intact, muscle power were 4 out of 5 in upper extremities and 4 out of 5 in bilateral lower extremities, deep tendon reflexes normal bilaterally. Minimal right facial droop, and right leg weakness. ASSESSMENT AND PLAN: 1. Acute on chronic systolic heart failure . decreased furosemide 40 mg IVP q 12 hours , we will continue with Losartan 100 mg po daily, Carvedilol 25 mg po bid , monitor input annd output and daily weight, cardiology consultation appreciated 2. Hyponatremia due to hypervolemia. we will continue with Furosemide 40 mg IVP q 12 h we will switch to oral Lasix tomorrow morning and patient can be discharged home tomorrow morning. 3. COPD with mild exacerbation. discontinue Solu-Medrol, start the patient on prednisone 40 mg once every day, DuoNeb 3 mL nebulization 4 times every day, Pulmicort 1 mg nebulization twice every day, continue Tessalon Perles 200 mg o rally 3 times every day, continue patient on Zithromax 500 mg orally once every day for the next 2 days follow-up with the patient very closely. 4. Acute kidney injury due to vasomotor nephropathy and aggressive diuresis with ATN. discontinue Solu-Medrol, start the patient on prednisone 40 mg or ally once every day, continue patient on Lasix was changed to oral Lasix 40 mg orally twice every day, monitor the patient over the next 24 hours repeat CMP and CBC tomorrow morning 5. Hypertension and hypertensive cardiovascular disease. Continue the patient on losartan 100 mg orally once every day, continue patient on Carvedilol 25 mg orally twice every day, continue Amlodipine 5 mg po daily, continue with Hydralazine as well and monitor BP very closely. 6. Diabetes mellitus type 2 with steroid-induced hyperglycemia. we will maintain patient on Lantus 30 units at bedtime along with a sliding scale insulin, we will continue with Humalog 9 units before each meal, continue with Metformin 1000 mg po bid and Farxiga 10 mg po daily, along with a sliding scale insulin. 7. Coronary artery disease status post CABG 6 as well as PCI in the past. Continue patient on ASA 81 mg once every day, Carvedilol 25 mg orally twice every day, continue patient on atorvastatin 80 mg orally once every day, continue Zetia 10 mg orally once every day. 8. Hyperlipidemia. Continue patient on atorvastatin 80 mg once every day, continue Zetia 10 mg orally once every day, monitor lipid panel, keep LDL 55-70. 9. Diabetic polyneuropathy. Continue patient on gabapentin 900 mg orally 2 times every day. 10. Obstructive sleep apnea. Patient does have a CPAP at home. 11. Chronic systolic heart failure. Continue with Furosemide 40 mg IVP q 12 h , Carvedilol 25 mg po bid and add Farxiga 10 mg po daily. 12. Paroxysmal atrial fibrillation . Continue patient on Coreg 25 mg orally twice every day, Eliquis 5 mg po bid. 13. DVT prophylaxis. Continue Eliquis 5 mg orally twice every day. 14. GI prophylaxis. Continue Protonix 40 mg orally bid 15. History of CVA in the past recovered well, e will continue with Atorvastatin 80 mg po daily and Eliquis for life we will repeat labs tomorrow morning for 16. Hypokalemia status post replacement. 17. Home tomorrow morning. Objective - Vital Signs Vital signs: Vital Signs Temp 97.8 F 05/08/24 07:00 Pulse 78 05/08/24 12:21 Resp 16 05/08/24 07:00 BP 152/84 05/08/24 07:00 Pulse Ox 99 05/08/24 07:00 FiO2 Intake & Output 05/07/24 05/08/24 05/08/24 18:59 06:59 18:59 Intake Total 1202 540 Output Total 550 400 Balance 1202 -550 140 Weight 82 kg 83.7 kg Intake: Oral 1202 540 Output: Urine 550 400 Other: Voiding Method Urinal Urinal - Labs CBC & Chem 7: 05/08/24 04:26 05/08/24 04:26 Labs: Abnormal Lab Results - Last 24 Hours (Table) 05/07/24 05/07/24 05/08/24 Range/Units 18:07 20:32 04:26 WBC (4.50-10.00) X 10*3/uL MCH (27.0-32.0) pg MCHC (32.0-37.0) g/dL RDW (11.5-14.5) % Immature Gran # (0.00-0.04) X 10*3/uL Neutrophils # (1.80-7.70) X 10*3/uL Lymphocytes # (0.90-5.00) X 10*3/uL Eosinophils # (0.04-0.35) X 10*3/uL Anion Gap 16.00 H (4.00-12.00) mmol/L BUN 48.8 H (9.0-27.0) mg/dL Creatinine 1.9 H (0.6-1.5) mg/dL Est GFR (CKD-EPI) 40 L (>=60) BUN/Creatinine Ratio 25.68 H (12.00-20.00) Ratio Glucose 236 H (70-110) mg/dL POC Glucose (mg/dL) 220 H 251 H (70-110) mg/dL Alkaline Phosphatase 159 H (41-126) U/L Albumin 3.5 L (3.8-4.9) g/dL Albumin/Globulin Ratio 1.25 L (1.60-3.17) Ratio 05/08/24 05/08/24 05/08/24 Range/Units 04:26 06:09 09:06 WBC 17.64 H (4.50-10.00) X 10*3/uL MCH 25.6 L (27.0-32.0) pg MCHC 31.3 L (32.0-37.0) g/dL RDW 16.9 H (11.5-14.5) % Immature Gran # 0.11 H (0.00-0.04) X 10*3/uL Neutrophils # 16.34 H (1.80-7.70) X 10*3/uL Lymphocytes # 0.65 L (0.90-5.00) X 10*3/uL Eosinophils # 0.01 L (0.04-0.35) X 10*3/uL Anion Gap (4.00-12.00) mmol/L BUN (9.0-27.0) mg/dL Creatinine (0.6-1.5) mg/dL Est GFR (CKD-EPI) (>=60) BUN/Creatinine Ratio (12.00-20.00) Ratio Glucose (70-110) mg/dL POC Glucose (mg/dL) 210 H 192 H (70-110) mg/dL Alkaline Phosphatase (41-126) U/L Albumin (3.8-4.9) g/dL Albumin/Globulin Ratio (1.60-3.17) Ratio 05/08/24 Range/Units 11:56 WBC (4.50-10.00) X 10*3/uL MCH (27.0-32.0) pg MCHC (32.0-37.0) g/dL RDW (11.5-14.5) % Immature Gran # (0.00-0.04) X 10*3/uL Neutrophils # (1.80-7.70) X 10*3/uL Lymphocytes # (0.90-5.00) X 10*3/uL Eosinophils # (0.04-0.35) X 10*3/uL Anion Gap (4.00-12.00) mmol/L BUN (9.0-27.0) mg/dL Creatinine (0.6-1.5) mg/dL Est GFR (CKD-EPI) (>=60) BUN/Creatinine Ratio (12.00-20.00) Ratio Glucose (70-110) mg/dL POC Glucose (mg/dL) 206 H (70-110) mg/dL Alkaline Phosphatase (41-126) U/L Albumin (3.8-4.9) g/dL Albumin/Globulin Ratio (1.60-3.17) Ratio
[2024-05-08 17:34] LABS: Glucose,Whole Blood 147 mg/dL (70-110)
[2024-05-08 20:40] LABS: Glucose,Whole Blood 228 mg/dL (70-110)
[2024-05-09 06:19] LABS: Glucose,Whole Blood 243 mg/dL (70-110)
[2024-05-09 08:42] LABS: Glucose,Whole Blood 180 mg/dL (70-110)
[2024-05-09 09:06] LABS: ALT 18 U/L (10-49); AST 18 U/L (14-35); Albumin 3.3 g/dL (3.8-4.9); Albumin/Globulin Ratio 1.14 Ratio (1.60-3.17); Alkaline Phosphatase 146 U/L (41-126); BUN/Creat Ratio 31.81 Ratio (12.00-20.00); Blood Urea Nitrogen 66.8 mg/dL (9.0-27.0); Calcium 8.3 mg/dL (8.7-10.3); Carbon Dioxide 22.6 mmol/L (21.6-31.8); Chloride 103 mmol/L (96-109); Globulin 2.9 g/dL (1.6-3.3); Glucose 267 mg/dL (70-110); Potassium 4.3 mmol/L (3.5-5.5); Sodium 140 mmol/L (135-145); Total Bilirubin 0.5 mg/dL (0.3-1.2); Total Protein 6.2 g/dL (6.2-8.2)
[2024-05-09 09:18] LABS: Basophils # (A) 0.01 X 10*3/uL (0.00-0.10); Basophils % (A) 0.1 %; Eosinophils # (A) 0 X 10*3/uL (0.04-0.35); Eosinophils % (A) 0 %; HCT 42.4 % (39.6-50.0); HGB 13.5 g/dL (13.0-17.0); Lymphocytes # (A) 0.76 X 10*3/uL (0.90-5.00); Lymphocytes % (A) 5.1 %; MCH 25.8 pg (27.0-32.0); MCHC 31.8 g/dL (32.0-37.0); MCV 80.9 FL (80.0-97.0); Mean Platelet Volume 12.3 FL (9.5-12.2); Monocytes # (A) 0.72 X 10*3/uL (0.20-1.00); Monocytes % (A) 4.8 %; NRBC Per 100 WBC 0 X 10*3/uL (0.00-0.01); Neutrophils # (A) 13.34 X 10*3/uL (1.80-7.70); Neutrophils % (A) 89.4 %; Platelet Count 187 X 10*3/uL (140-440); RBC 5.24 X 10*6/uL (4.40-5.60); RDW 16.7 % (11.5-14.5); WBC 14.92 X 10*3/uL (4.50-10.00)
[2024-05-09] MEDS: metOLazone 2.5 MG TAB PO SCH (10:01)
[2024-05-09] MEDS ORDERED: methylPREDNISolone SOD SUCCI 125 MG/2 ML VIAL IV SCH (12:00)
--- NOTE | 2024-05-09 12:14 | P.PN ---
Subjective Progress Note Date: 05/09/24 HISTORY OF PRESENT ILLNESS: This is a 59-year-old male with a past medical history significant for coronary artery disease with previous CABG and stenting, hypertension, hyperlipidemia, diabetes, CVA, atrial fibrillation, and GI bleed. Patient follows in the office with Dr. Ga. We have been asked to see the patient in consultation for CHF. Patient examined at the bedside. Patient presented to the hospital for chief complaint of shortness of breath. Patient states for the past 3 to 4 days he h as been progressively getting more short of breath at home. He also reports having a frequent cough. He denies any fever or sick contacts. DIAGNOSTICS: - EKG reveals atrial fibrillation with controlled ventricular rate - Chest xray cardiomegaly with new small bilateral pleural effusions. Findings concerning for CHF exacerbation/fluid overload state. - Laboratory data: WBC 7.8. Hemoglobin 13.4. Platelet count 175. Sodium 143. Potassium 3.3. BUN 25. Creatinine 1.4. Troponin negative x 1. proBNP 6130. - Current home cardiac medications include hydralazine 25 mg 3 times daily, carvedilol 25 mg twice a day, amlodipine 5 mg daily, losartan 100 mg daily, Lasix 40 mg twice a day, Zetia 10 mg daily, Farxiga 10 mg daily, Lipitor 80 mg daily, and Eliquis 5 mg twice a day. - Most recent echocardiogram obtained in May 2023 revealed ejection fraction 40 to 45%, severe pulmonary hypertension, moderate posteriorly directed mitral regurgitation and severe tricuspid regurgitation - Cardiac catheterization history: March 2022 revealing severe triple-vessel disease. Patent stented segment in the ramus intermedius and proximal left circumflex. Patent MAE to LAD. Patent SVG to OM. Chronically occluded SVG to RCA and diagonal branch. No significant progression of disease since 2019. Medical management was recommended. 05/07/2024 Patient examined this morning at the bedside. Patient currently denies chest pain or pressure. He continues to report shortness of breath with a frequent cough. He remains on IV Lasix every 8 hours. Creatinine today 1.8. 2D echo remains pending. 05/08 Patient seen and examined. No complaints of chest pain or chest pressure. He has been on IV Lasix transition to oral this morning. Blood pressure 152/84, heart rate 62, pulse ox 99% on room air. RUBENS and weights do not appear to be accurate. Repeat blood work reveals WBC 17, hemoglobin 13.5, BUN 48 creatinine 1.9. Repeat chest x-ray reveals mild cardiomegaly. Improved aeration of the lungs. Echocardiogram is pending. 05/09 Patient seen and examined. Patient has a continuous cough this morning. He is very angry because he is not feeling better from when he came into the hospital. Yesterday, patient's IV Lasix was transitioned to oral due to worsening renal function. Today, BUN 66 and creatinine 2.1. Echocardiogram performed in the office on 04/19/2024: EF 45 to 50% with global LV hypokinesis without regional heterogeneity. There is mild left ventricular hypertrophy. Aortic valve is calcified. Moderate to severe mitral regurgitation, moderate tricuspid regurgitation. PASP 88 mmHg. Mild to moderate pulmonic regurgitation. PHYSICAL EXAM: VITAL SIGNS: Reviewed. GENERAL: Well-developed in no acute distress. HEENT: Head is normocephalic. Pupils are equal, round. Sclerae anicteric. Mucous membranes of the mouth are moist. Neck supple. No JVD or thyromegaly LUNGS: Respirations even and unlabored. Lungs with expiratory wheezing noted. HEART: Irregular rate and rhythm. S1 and S2 heard. ABDOMEN: Soft. Nondistended. Nontender. EXTREMITIES: No clubbing or cyanosis. Peripheral pulses intact. 1+ bilateral lower extremity edema noted NEUROLOGIC: Awake and alert. Oriented x 3. ASSESSMENT: Shortness of breath Acute on chronic heart failure with reduced EF, 40 to 45% Coronary artery disease with previous three-vessel CABG and known chronically occluded SVG to RCA and diagonal branch Ischemic cardiomyopathy Persistent atrial fibrillation with controlled ventricular rate Hypertension Hyperlipidemia Diabetes CVA History of GI bleed Acute kidney injury Severe pulmonary hypertension Valvular heart disease with moderate to severe mitral regurgitation, moderate tricuspid regurgitation, mild to moderate pulmonic regurgitation PLAN: Continue oral Lasix 40 mg twice daily due to worsening creatinine Add Zaroxolyn 2.5 mg daily Daily weights, accurate intake and output, monitoring of kidney function Continue additional cardiac medications including amlodipine, Eliquis, atorvastatin, carvedilol, Farxiga, Zetia, hydralazine, and losartan Add consult for pulmonary medicine Further recommendations pending patient course Nurse practitioner note has been reviewed by physician. Signing provider agrees with the documented findings, assessment, and plan of care documented by [employer] as a scribe. Objective - Vital Signs Vital signs: Vital Signs Temp 97.4 F L 05/09/24 02:38 Pulse 84 05/09/24 08:40 Resp 18 05/09/24 02:38 BP 133/69 05/09/24 02:38 Pulse Ox 98 05/09/24 02:38 FiO2 Intake & Output 05/08/24 05/09/24 05/09/24 18:59 06:59 18:59 Intake Total 658 Output Total 1000 1075 Balance -342 -1075 Weight 85 kg Intake: Oral 658 Output: Urine 1000 1075 Other: Voiding Method Urinal - Labs CBC & Chem 7: 05/09/24 03:45 05/09/24 03:45 Labs: Abnormal Lab Results - Last 24 Hours (Table) 05/08/24 05/08/24 05/08/24 Range/Units 04:26 04:26 09:06 WBC 17.64 H (4.50-10.00) X 10*3/uL MCH 25.6 L (27.0-32.0) pg MCHC 31.3 L (32.0-37.0) g/dL RDW 16.9 H (11.5-14.5) % Immature Gran # 0.11 H (0.00-0.04) X 10*3/uL Neutrophils # 16.34 H (1.80-7.70) X 10*3/uL Lymphocytes # 0.65 L (0.90-5.00) X 10*3/uL Eosinophils # 0.01 L (0.04-0.35) X 10*3/uL Anion Gap 16.00 H (4.00-12.00) mmol/L BUN 48.8 H (9.0-27.0) mg/dL Creatinine 1.9 H (0.6-1.5) mg/dL Est GFR (CKD-EPI) 40 L (>=60) BUN/Creatinine Ratio 25.68 H (12.00-20.00) Ratio Glucose 236 H (70-110) mg/dL POC Glucose (mg/dL) 192 H (70-110) mg/dL Alkaline Phosphatase 159 H (41-126) U/L Albumin 3.5 L (3.8-4.9) g/dL Albumin/Globulin Ratio 1.25 L (1.60-3.17) Ratio 03/17/25 03/17/25 03/17/25 Range/Units 11:56 17:33 20:40 WBC (4.50-10.00) X 10*3/uL MCH (27.0-32.0) pg MCHC (32.0-37.0) g/dL RDW (11.5-14.5) % Immature Gran # (0.00-0.04) X 10*3/uL Neutrophils # (1.80-7.70) X 10*3/uL Lymphocytes # (0.90-5.00) X 10*3/uL Eosinophils # (0.04-0.35) X 10*3/uL Anion Gap (4.00-12.00) mmol/L BUN (9.0-27.0) mg/dL Creatinine (0.6-1.5) mg/dL Est GFR (CKD-EPI) (>=60) BUN/Creatinine Ratio (12.00-20.00) Ratio Glucose (70-110) mg/dL POC Glucose (mg/dL) 206 H 147 H 228 H (70-110) mg/dL Alkaline Phosphatase (41-126) U/L Albumin (3.8-4.9) g/dL Albumin/Globulin Ratio (1.60-3.17) Ratio 05/09/24 05/09/24 Range/Units 06:17 08:41 WBC (4.50-10.00) X 10*3/uL MCH (27.0-32.0) pg MCHC (32.0-37.0) g/dL RDW (11.5-14.5) % Immature Gran # (0.00-0.04) X 10*3/uL Neutrophils # (1.80-7.70) X 10*3/uL Lymphocytes # (0.90-5.00) X 10*3/uL Eosinophils # (0.04-0.35) X 10*3/uL Anion Gap (4.00-12.00) mmol/L BUN (9.0-27.0) mg/dL Creatinine (0.6-1.5) mg/dL Est GFR (CKD-EPI) (>=60) BUN/Creatinine Ratio (12.00-20.00) Ratio Glucose (70-110) mg/dL POC Glucose (mg/dL) 243 H 180 H (70-110) mg/dL Alkaline Phosphatase (41-126) U/L Albumin (3.8-4.9) g/dL Albumin/Globulin Ratio (1.60-3.17) Ratio
[2024-05-09] MEDS: MORPHINE SULFATE 2 MG/ML SYRINGE IVP PRN (12:30)
[2024-05-09] MEDS: DEXAMETHASONE SOD PHOSPHATE 10 MG/ML 1 ML VIAL IVP SCH (12:32)
[2024-05-09 12:37] LABS: Glucose,Whole Blood 209 mg/dL (70-110)
--- NOTE | 2024-05-09 13:34 | P.CNPUL ---
History of Present Illness Consult date: 05/09/24 Requesting physician: Kelly Montesinos Reason for consult: dyspnea, cough Chief complaint: Shortness of breath, cough History of present illness: This is a 59-year-old male patient with a history of obstructive sleep apnea maintained on CPAP, mild intermittent chronic bronchial asthma, lifelong non-s moker, hypertension, hyperlipidemia, diabetes mellitus, diabetic neuropathy, chronic kidney disease stage II, Black artery disease with previous stents and subsequent bypass grafting surgery. He presented here back on May 05, 2024 with complaints of shortness of breath, cough and congestion for 3 days prior. Chest x-ray revealed cardiomegaly with new small bilateral pleural effusions. White count 14.9. Hemoglobin 13.5. Platelets 187. Sodium 140. Potassium 4.3. Bicarb 23. BUN 67. Creatinine 2.1. Glucose 267. Follow-up chest x-ray revealed mild cardiomegaly with improved aeration of the lungs. He is seen this morning in consultation on the regular medical floor. He is awake and alert in no acute distress. He was still having issues with dry nonproductive cough. No fever or chills. Maintaining good O2 saturations in the mid 90s on room air. Hemodynamically stable. Review of Systems REVIEW OF SYSTEMS: CONSTITUTIONAL: Denies any recent significant weight loss or weight gain. EYES: Denies change in vision. EARS, NOSE, MOUTH, THROAT: Denies headaches, denies sore throat. CARDIOVASCULAR: Denies chest pain, palpitations or syncopal episodes. RESPIRATORY: Positive for shortness of breath, cough, congestion no hemoptysis. GASTROINTESTINAL: Denies change in appetite, denies abdominal pain GENITOURINARY: Denies hematuria, denies infections. MUSKULOSKELETAL: Denies pain, denies swelling. INTEGUMENTARY: Denies rash, denies eczema. NEUROLOGICAL: Denies recent memory loss, no recent seizure activity. PSYCHIATRIC: Denies anxiety, denies depression. HEMATOLOGIC/LYMPHATIC: Denies anemia, denies enlarged lymph nodes. Past Medical History Past Medical History: Asthma, Coronary Artery Disease (CAD), Chest Pain / Angina, Diabetes Mellitus, Deep Vein Thrombosis (DVT), Hyperlipidemia, Hypertension, Myocardial Infarction (MA), Sleep Apnea/CPAP/BIPAP Additional Past Medical History / Comment(s): Obstructive sleep apnea CPAP, bronchitis, IDDM type II, DVT L leg, cellulitis L leg 2012 cellulitis L Arm 2018, diabetic neuropathy affects feet and hands, chronic kidney disease stage II Last Myocardial Infarction Date:: 06/23/13 History of Any Multi-Drug Resistant Organisms: Acinetobacter (MDRO), MRSA Date of last positivie culture/infection: 08/2014 MDRO Source:: abdomen around navel Past Surgical History: Back Surgery, Coronary Bypass/CABG, Heart Cathete rization, Heart Catheterization With Stent, Hernia Repair Additional Past Surgical History / Comment(s): Cardiac caths, PCI with stents (4total), 2006 CABG 6 vessels, spinal fusion L4-L5, fasciotomy left thigh, bilateral inguinal hernia repairs, I&D L forearm with dehisence then compartment syndrome with fasciotomy Left forearm - June 2016, teeth extraction Past Anesthesia/Blood Transfusion Reactions: No Reported Reaction Date of Last Stent Placement:: 08/28/15 Past Psychological History: No Psychological Hx Reported Smoking Status: Never smoker Past Alcohol Use History: None Reported Additional Past Alcohol Use History / Comment(s): He denies any medical marijuana, marijuana, street drug use. Past Drug Use History: None Reported - Past Family History Brother(s) History Unknown: Yes Additional Family Medical History / Comment(s): Patient has 1 brother and 1 sister with no major medical problems. Mother History Unknown: Yes Family Medical History: Congestive Heart Failure (CHF), Diabetes Mellitus Additional Family Medical History / Comment(s): Mother at the age of 84 from with history of chronic renal disease stage. Father History Unknown: Yes Family Medical History: COPD, Coronary Artery Disease (CAD), Myocardial Infarction (MA) Additional Family Medical History / Comment(s): Father of a MA at the age of 60 yrs with history of COPD. Sister(s) History Unknown: Yes Family Medical History: Rheumatoid Arthritis (RA) Additional Family Medical History / Comment(s): Patient has 1 sister with no major medical problems. Medications and Allergies Home Medications Medication Instructions Recorded Confirmed Type Ezetimibe [Zetia] 10 mg PO DAILY 12/15/20 05/05/24 History Losartan Potassium [Cozaar] 100 mg PO DAILY #30 tablet 03/18/22 05/05/24 Rx Atorvastatin [Lipitor] 80 mg PO DAILY 04/09/22 05/05/24 History metFORMIN HCL 1,000 mg PO BID 04/09/22 05/05/24 History Insulin Aspart [NovoLOG Flexpen] 9 - 12 units SQ TID-W/MEALS 06/05/23 05/05/24 History carvediloL [Coreg] 25 mg PO BID 06/05/23 05/05/24 History Furosemide [Lasix] 40 mg PO BID@0900,1600 #60 tab 06/15/23 05/05/24 Rx Apixaban [Eliquis] 5 mg PO BID 05/05/24 05/08/24 History Dapagliflozin Propanediol [Farxiga] 10 mg PO DAILY 05/05/24 05/08/24 History Gabapentin 300 mg PO BID 05/05/24 05/05/24 History Insulin Glargine,Hum.rec.anlog 30 unit SQ HS 05/05/24 05/05/24 History [Basaglar Kwikpen U-100] amLODIPine [Norvasc] 5 mg PO DAILY 05/05/24 05/05/24 History hydrALAZINE HCL [Apresoline] 25 mg PO TID 05/05/24 05/05/24 History Allergies Allergy/AdvReac Type Severity Reaction Status Date / Time adhesive tape Allergy Severe Rash/Hives Verified 05/05/24 17:58 vancomycin Allergy Mild Head Itches Verified 05/05/24 17:58 Physical Exam Vitals: Vital Signs Temp Pulse Pulse Resp BP Pulse Ox 05/09/24 11:56 72 05/09/24 11:47 76 05/09/24 08:40 84 05/09/24 08:28 78 05/09/24 07:30 98.4 F 68 18 147/80 95 05/09/24 02:38 97.4 F L 70 18 133/69 98 05/08/24 20:00 98.4 F 68 15 125/77 95 05/08/24 19:19 82 05/08/24 19:07 78 05/08/24 15:48 74 05/08/24 15:39 70 05/08/24 14:56 97.5 F L 85 16 111/69 95 Intake and Output 05/08/24 05/09/24 05/09/24 22:59 06:59 14:59 Intake Total 620 Output Total 600 1075 885 Balance -927 -1072 -926 Intake: Oral 620 Output: Urine 600 1075 885 Other: Voiding Method Urinal Weight 85 kg GENERAL EXAM: Alert, pleasant 59-year-old male, on room air, comfortable in no apparent distress. HEAD: Normocephalic. EYES: Normal reaction of pupils, equal size. NOSE: Clear with pink turbinates. THROAT: No erythema or exudates. NECK: No masses, no JVD. CHEST: No chest wall deformity. LUNGS: Equal air entry with faint end expiratory wheeze, few scattered rhonchi. CVS: S1 and S2 normal with no audible murmur, regular rhythm. ABDOMEN: No hepatosplenomegaly, normal bowel sounds, no guarding or rigidity. SPINE: No scoliosis or deformity SKIN: No rashes CENTRAL NERVOUS SYSTEM: No focal deficits, tone is normal in all 4 extremities. EXTREMITIES: There is no peripheral edema. No clubbing, no cyanosis. Peripheral pulses are intact. Results - Laboratory Findings CBC and BMP: 05/09/24 03:45 05/09/24 03:45 PT/INR, D-dimer PT 12.4 sec (10.0-12.5) 05/05/24 15:53 INR 1.1 (<1.2) 05/05/24 15:53 Abnormal lab findings: Abnormal Labs 05/05/24 05/05/24 05/05/24 15:53 15:53 21:32 WBC Hgb MCH MCHC 29.9 L RDW 16.4 H MPV Immature Gran # Neutrophils # Lymphocytes # 0.7 L Monocytes # Eosinophils # Sodium 135 L Potassium Carbon Dioxide 21 L Anion Gap BUN 25 H Creatinine Est GFR (CKD-EPI) BUN/Creatinine Ratio Glucose 381 H POC Glucose (mg/dL) 379 H Calcium Alkaline Phosphatase 191 H Total Protein Albumin 3.3 L Albumin/Globulin Ratio 05/06/24 05/06/24 05/06/24 05:48 05:48 06:11 WBC Hgb MCH 25.7 L MCHC 31.8 L RDW 16.6 H MPV Immature Gran # Neutrophils # Lymphocytes # 0.84 L Monocytes # Eosinophils # Sodium Potassium 3.3 L Carbon Dioxide Anion Gap 12.40 H BUN Creatinine Est GFR (CKD-EPI) 57 L BUN/Creatinine Ratio Glucose 238 H POC Glucose (mg/dL) 223 H Calcium 8.5 L Alkaline Phosphatase 173 H Total Protein 5.8 L Albumin 3.2 L Albumin/Globulin Ratio 1.23 L 05/06/24 05/06/24 05/06/24 12:15 17:12 19:57 WBC Hgb MCH MCHC RDW MPV Immature Gran # Neutrophils # Lymphocytes # Monocytes # Eosinophils # Sodium Potassium Carbon Dioxide Anion Gap BUN Creatinine Est GFR (CKD-EPI) BUN/Creatinine Ratio Glucose POC Glucose (mg/dL) 113 H 141 H 111 H Calcium Alkaline Phosphatase Total Protein Albumin Albumin/Globulin Ratio 05/07/24 05/07/24 05/07/24 04:00 04:00 06:03 WBC Hgb 12.7 L MCH 25.5 L MCHC 31.7 L RDW 16.7 H MPV Immature Gran # 0.05 H Neutrophils # Lymphocytes # 0.38 L Monocytes # 0.06 L Eosinophils # 0 L Sodium Potassium Carbon Dioxide Anion Gap 14.70 H BUN 35.8 H Creatinine 1.8 H Est GFR (CKD-EPI) 42 L BUN/Creatinine Ratio Glucose 257 H POC Glucose (mg/dL) 281 H Calcium 8.6 L Alkaline Phosphatase 166 H Total Protein 5.8 L Albumin 3.2 L Albumin/Globulin Ratio 1.23 L 05/07/24 05/07/24 05/07/24 11:53 18:07 20:32 WBC Hgb MCH MCHC RDW MPV Immature Gran # Neutrophils # Lymphocytes # Monocytes # Eosinophils # Sodium Potassium Carbon Dioxide Anion Gap BUN Creatinine Est GFR (CKD-EPI) BUN/Creatinine Ratio Glucose POC Glucose (mg/dL) 246 H 220 H 251 H Calcium Alkaline Phosphatase Total Protein Albumin Albumin/Globulin Ratio 05/08/24 05/08/24 05/08/24 04:26 04:26 06:09 WBC 17.64 H Hgb MCH 25.6 L MCHC 31.3 L RDW 16.9 H MPV Immature Gran # 0.11 H Neutrophils # 16.34 H Lymphocytes # 0.65 L Monocytes # Eosinophils # 0.01 L Sodium Potassium Carbon Dioxide Anion Gap 16.00 H BUN 48.8 H Creatinine 1.9 H Est GFR (CKD-EPI) 40 L BUN/Creatinine Ratio 25.68 H Glucose 236 H POC Glucose (mg/dL) 210 H Calcium Alkaline Phosphatase 159 H Total Protein Albumin 3.5 L Albumin/Globulin Ratio 1.25 L 05/08/24 05/08/24 05/08/24 09:06 11:56 17:33 WBC Hgb MCH MCHC RDW MPV Immature Gran # Neutrophils # Lymphocytes # Monocytes # Eosinophils # Sodium Potassium Carbon Dioxide Anion Gap BUN Creatinine Est GFR (CKD-EPI) BUN/Creatinine Ratio Glucose POC Glucose (mg/dL) 192 H 206 H 147 H Calcium Alkaline Phosphatase Total Protein Albumin Albumin/Globulin Ratio 05/08/24 05/09/24 05/09/24 20:40 03:45 03:45 WBC 14.92 H Hgb MCH 25.8 L MCHC 31.8 L RDW 16.7 H MPV 12.3 H Immature Gran # 0.09 H Neutrophils # 13.34 H Lymphocytes # 0.76 L Monocytes # Eosinophils # 0 L Sodium Potassium Carbon Dioxide Anion Gap 14.40 H BUN 66.8 H Creatinine 2.1 H Est GFR (CKD-EPI) 35 L BUN/Creatinine Ratio 31.81 H Glucose 267 H POC Glucose (mg/dL) 228 H Calcium 8.3 L Alkaline Phosphatase 146 H Total Protein Albumin 3.3 L Albumin/Globulin Ratio 1.14 L 05/09/24 05/09/24 05/09/24 06:17 08:41 12:36 WBC Hgb MCH MCHC RDW MPV Immature Gran # Neutrophils # Lymphocytes # Monocytes # Eosinophils # Sodium Potassium Carbon Dioxide Anion Gap BUN Creatinine Est GFR (CKD-EPI) BUN/Creatinine Ratio Glucose POC Glucose (mg/dL) 243 H 180 H 209 H Calcium Alkaline Phosphatase Total Protein Albumin Albumin/Globulin Ratio - Diagnostic Findings Chest x-ray: image reviewed Assessment and Plan Assessment: Acute exacerbation of mild intermittent chronic bronchial asthma versus post infectious cough syndrome, possible acid reflux Diabetes mellitus, type II Diabetic neuropathy Coronary artery disease with previous stents/coronary artery bypass grafting Hyperlipidemia Hypertension History of congestive heart failure Lifelong non-smoker Plan: The patient was seen and evaluated Chest x-rays, labs and medications reviewed Continue Symbicort and DuoNeb inhalations Add Decadron 6 mg IV push every 6 hours Currently stable and on room air oxygen We will continue to follow and make further recommendations based on his clinical status I have personally seen and examined the patient, performed the documentation and the assessment and plan as written. Number of minutes spent on the visit: 20 Dictation was produced using [employer] dictation software. Please excuse any grammatical, word or spelling errors.
[2024-05-09 17:26] LABS: Glucose,Whole Blood 261 mg/dL (70-110)
--- NOTE | 2024-05-09 18:25 | P.PN ---
Subjective Progress Note Date: 05/09/24 HISTORY OF PRESENT ILLNESS: This is a 59-year-old male patient of rosita and Dr. Ga with past medical history of coronary artery disease status post 6 vessel CABG 2006 with MAE to LAD, saphenous venous graft to the PDA, saphenous venous graft to the obtuse marginal one, radial artery to the obtuse marginal branch 2 and saphenous venous graft to the obtuse marginal 3 followed by heart catheterization with PCI and stent of the saphenous venous graft to the RCA in 2015 at which time he pres ented with non-ST elevated myocardial infarction. Most recent cardiac catheterization was performed on 04/10/2022 which revealed severe triple-vessel coronary artery disease with a patent ramus intermediate, patent SVG to the OM, patent MAE to the LAD, and occluded saphenous vein graft to the RCA which is chronic from before. Medical therapy was advised at that time. History of hypertension, hypertensive cardiovascular disease with left ventricular hypertrophy, hyperlipidemia, ischemic cardiomyopathy, paroxysmal atrial fibrillation, currently on Eliquis, diabetes mellitus type 2 with diabetic polyneuropathy, hyperlipidemia, asthma, obstructive sleep apnea on CPAP, chronic low back pain, DVT in the past, patient was recently hospitalized at [facility] between 06/05/2023 and discharged 06/15/2023 after he was admitted for GI bleed due to esophageal ulcer. Patient had EGD and incomplete colonoscopy due to poor prep at that time. Patient presented to the ER at [facility] due to increased cough and increased shortness of breath, was complaining of increased edema in both legs and ws seen by Isaiah Pena and PCR was negative for COVID-19. Influenza A, B annd RSV, CXR showed evidence of CHF with bilateral pleural effusion, with elevated BNP, was started on Furosemide 40 mg IVP q 8 h and was admitted to the hospital for acute on chronic systolic heart failure 05/06: Patient sitting up in bed in no apparent distress, he is feeling better today, he denies any chest pain, shortness of breath, he continues to have a significant coughing, no phlegm production, he continues to complain of pleurisy in his chest, I will start the patient on Solu-Medrol 40 mg a push every 8 ho Pio bianchioNeb 3 nebulization 4 times every day, also Pulmicort 1 mg nebulization twice every day, follow-up with the patient very closely he swelling is a bit better today, his potassium is down we will start potassium supplement 20 mg orally twice every day, follow-up with the patient labs in the next 24 hours, continue current treatment plan, patient was seen in consultation by cardiology recommended to continue current treatment plan 05/07: Patient is feeling better today, he is having less coughing, no chest pain or shortness of breath, he continues to have minimal pleurisy, he has been star raquel on Solu-Medrol 40 mg IV push every 8 hours we will decrease that to every 12 hours, continue with Tessalon Perles 200 mg orally 3 times every day, continue with nebulized treatment in the form of DuoNeb and Pulmicort, hopefully patient will be able to be discharged home in the next 24 hours. Allergy has seen the patient, and they recommended to continue same treatment plan. I will decrease IV Lasix to 40 mg IV push every 12 hours 05/08: Patient sitting up in bed he is complaining of increased swelling in the right upper extremity more than the left upper extremity, continues to have swel ling both lower extremity, he switched to Lasix 40 mg orally twice every day, discontinued Solu-Medrol, start the patient on prednisone 40 mg once every day, continue Zithromax 500 mg once every day, chest x-ray was done showed improvement in the aeration of the lung, continue current treatment plan, keep the patient in the hospital 05/09: Patient is feeling a bit better today, he continues to have some swelling in both lower extremities, he denies any chest pain, less short of breath, he continues to have some cough, he was switched to Symbicort 160/4.5 mcg 2 puffs in elation twice every day he continues to be on DuoNeb treatment nebulization 4 times every day, oxygen support, was seen by cardiology yesterday recommended to continue Lasix 40 mg orally twice every day, monitor input and output and daily weight, increase activity, follow-up with the patient very closely, his kidney function just appears to be worse, he was started on Zaroxolyn 2.5 mg orally today I will discontinue Farxiga, discontinue losartan, monitor the patient blood pressure very closely, ultrasound of the kidneys will be done, nephrology consultation Dr. Pope pulmonary consultation was obtained from Dr. Allen as well. REVIEW OF SYSTEMS: Constitutional: No documented fever, no chills, no night sweats. No weight change. Positive for weakness, positive for fatigue, no lethargy. No daytime sleepiness. HEENT: No headache. No blurred vision or double vision, no loss of vision. No loss of Hearing, no ringing in the ears, no dizziness. No nasal drainage or congestion. No epistaxis. No sore throat. Lungs: positive for shortness of breath, occasional cough, minimal sputum production. no wheezing. Reports dyspnea with activity. Cardiovascular: no chest pain, positive for lower extremity edema. No palpitations. No paroxysmal nocturnal dyspnea. No orthopnea. positive for lightheadedness or dizziness. No syncopal episodes. Abdominal: Reports no abdominal pain. no nausea, vomiting. No diarrhea. No constipation. No bloody or tarry stools reports loss of appetite. Genitourinary: No dysuria, increased frequency, urgency. No urinary retention. Musculoskeletal: No myalgias. positive for muscle weakness, no gait dysfunction, frequent falls. No back pain. No neck pain. Integumentary: scabbed wounds to left caballero , no lesions. No rash or pruritus. No unusual bruising. No change in hair or nails. Neurologic: No aphasia. Minimal facial droop. No change in mentation. No head injury. No headache, minimal drift. Psychiatric: positive for depression. No anxiety. No mood swings. Endocrine: abnormal blood sugars. No weight change. PHYSICAL EXAMINATION: General: 59-year-old male laying down in no distress. HEENT: Head is atraumatic, normocephalic, pupils were equal round reactive to light and recommendation, extraocular muscle movement were intact, sclera nonicteric, conjunctivae were pale, mucous membranes of the mouth are somewhat dry. Neck: Supple, no JVP, normal carotid upstroke bilaterally, no lymphadenopathy. Chest: Decreased breath sounds at the bases, few rhonchi no expirratory wheezes,, no chest wall tenderness, no intercostal retractions. Heart: First heart sound is normal, second heart sounds normal, irregularly irregular, there is systolic ejection murmur 2/6 located in the left sternal border. Abdomen: Soft, nontender, nondistended, positive bowel sounds, there is no hepatosplenomegaly Extremities: There is +2 edema no calf tenderness DP +1 bilaterally. Neurologic examination: Patient is awake alert and oriented X 3, cranial nerves II-12 appear grossly intact, muscle power were 4 out of 5 in upper extremities and 4 out of 5 in bilateral lower extremities, deep tendon reflexes normal bilaterally. Minimal right facial droop, and right leg weakness. ASSESSMENT AND PLAN: 1. Acute on chronic systolic heart failure . Discontinue patient Farxiga at this time, discontinue losartan because of acute kidney injury, continue patient on metoprolol, continue patient on Lasix 40 mg orally twice every day, added Zaroxolyn 2.5 mg orally once every day, monitor the patient CMP in the next 24 hours. 2. Hyponatremia due to hypervolemia. we will continue with Furosemide 40 mg orally twice every day . 3. Possible asthma/chronic bronchitis with mild exacerbation patient was seen in consultation by pulm medicine who recommended the same treatment plan, added dexamethasone 6 mg IV push every 6 hours, Zithromax 500 mg once every day, continue DuoNeb 3 mL nebulization 4 times every day, continue oxygen support continue Symbicort twice every day as well as 4. Acute kidney injury due to vasomotor nephropathy and aggressive diuresis with ATN. Check ultrasound of the kidney rule out any hydronephrosis, discontinue losartan, discontinue Farxiga, nephrology consultation Dr. Pope. 5. Hypertension and hypertensive cardiovascular disease. Stop losartan, continue patient on Carvedilol 25 mg orally twice every day, continue Amlodipine 5 mg po daily, continue with Hydralazine as well and monitor BP very closely. 6. Diabetes mellitus type 2 with steroid-induced hyperglycemia. we will maintain patient on Lantus 30 units at bedtime along with a sliding scale insulin, we will continue with Humalog 9 units before each meal, discontinue Farxiga, along with a sliding scale insulin. 7. Coronary artery disease status post CABG 6 as well as PCI in the past. Continue patient on ASA 81 mg once every day, Carvedilol 25 mg orally twice every day, continue patient on atorvastatin 80 mg orally once every day, continu e Zetia 10 mg orally once every day. 8. Hyperlipidemia. Continue patient on atorvastatin 80 mg once every day, continue Zetia 10 mg orally once every day, monitor lipid panel, keep LDL 55-70. 9. Diabetic polyneuropathy. Continue patient on gabapentin decrease the dose to 600 mg mg orally 2 times every day. 10. Obstructive sleep apnea. Patient does have a CPAP at home. 11. Chronic systolic heart failure. Continue with Furosemide 40 mg orally q 12 h , Carvedilol 25 mg po bid discontinue Farxiga for now due to acute kidney injury. 12. Paroxysmal atrial fibrillation . Continue patient on Coreg 25 mg orally twice every day, Eliquis 5 mg po bid. 13. DVT prophylaxis. Continue Eliquis 5 mg orally twice every day. 14. GI prophylaxis. Continue Protonix 40 mg orally bid 15. History of CVA in the past recovered well, we will continue with Atorvastatin 80 mg po daily and Eliquis for life we will repeat labs tomorrow morning for 16. Hypokalemia status post replacement. 17. further recommendations to follow the cosmetic consultant recommendations. Objective - Vital Signs Vital signs: Vital Signs Temp 97.4 F L 05/09/24 02:38 Pulse 70 05/09/24 02:38 Resp 18 05/09/24 02:38 BP 133/69 05/09/24 02:38 Pulse Ox 98 05/09/24 02:38 FiO2 Intake & Output 05/08/24 05/08/24 05/09/24 06:59 18:59 06:59 Intake Total 658 Output Total 550 1000 1075 Balance -146 -504 -1078 Weight 83.7 kg 85 kg Intake: Oral 658 Output: Urine 550 1000 1075 Other: Voiding Method Urinal Urinal - Labs CBC & Chem 7: 05/09/24 03:45 05/09/24 03:45 Labs: Abnormal Lab Results - Last 24 Hours (Table) 05/08/24 05/08/24 05/08/24 Range/Units 04:26 04:26 09:06 WBC 17.64 H (4.50-10.00) X 10*3/uL MCH 25.6 L (27.0-32.0) pg MCHC 31.3 L (32.0-37.0) g/dL RDW 16.9 H (11.5-14.5) % Immature Gran # 0.11 H (0.00-0.04) X 10*3/uL Neutrophils # 16.34 H (1.80-7.70) X 10*3/uL Lymphocytes # 0.65 L (0.90-5.00) X 10*3/uL Eosinophils # 0.01 L (0.04-0.35) X 10*3/uL Anion Gap 16.00 H (4.00-12.00) mmol/L BUN 48.8 H (9.0-27.0) mg/dL Creatinine 1.9 H (0.6-1.5) mg/dL Est GFR (CKD-EPI) 40 L (>=60) BUN/Creatinine Ratio 25.68 H (12.00-20.00) Ratio Glucose 236 H (70-110) mg/dL POC Glucose (mg/dL) 192 H (70-110) mg/dL Alkaline Phosphatase 159 H (41-126) U/L Albumin 3.5 L (3.8-4.9) g/dL Albumin/Globulin Ratio 1.25 L (1.60-3.17) Ratio 05/08/24 05/08/24 05/08/24 Range/Units 11:56 17:33 20:40 WBC (4.50-10.00) X 10*3/uL MCH (27.0-32.0) pg MCHC (32.0-37.0) g/dL RDW (11.5-14.5) % Immature Gran # (0.00-0.04) X 10*3/uL Neutrophils # (1.80-7.70) X 10*3/uL Lymphocytes # (0.90-5.00) X 10*3/uL Eosinophils # (0.04-0.35) X 10*3/uL Anion Gap (4.00-12.00) mmol/L BUN (9.0-27.0) mg/dL Creatinine (0.6-1.5) mg/dL Est GFR (CKD-EPI) (>=60) BUN/Creatinine Ratio (12.00-20.00) Ratio Glucose (70-110) mg/dL POC Glucose (mg/dL) 206 H 147 H 228 H (70-110) mg/dL Alkaline Phosphatase (41-126) U/L Albumin (3.8-4.9) g/dL Albumin/Globulin Ratio (1.60-3.17) Ratio 05/09/24 Range/Units 06:17 WBC (4.50-10.00) X 10*3/uL MCH (27.0-32.0) pg MCHC (32.0-37.0) g/dL RDW (11.5-14.5) % Immature Gran # (0.00-0.04) X 10*3/uL Neutrophils # (1.80-7.70) X 10*3/uL Lymphocytes # (0.90-5.00) X 10*3/uL Eosinophils # (0.04-0.35) X 10*3/uL Anion Gap (4.00-12.00) mmol/L BUN (9.0-27.0) mg/dL Creatinine (0.6-1.5) mg/dL Est GFR (CKD-EPI) (>=60) BUN/Creatinine Ratio (12.00-20.00) Ratio Glucose (70-110) mg/dL POC Glucose (mg/dL) 243 H (70-110) mg/dL Alkaline Phosphatase (41-126) U/L Albumin (3.8-4.9) g/dL Albumin/Globulin Ratio (1.60-3.17) Ratio
--- NOTE | 2024-05-09 20:27 | US ---
EXAMINATION TYPE: US kidneys/renal and bladder DATE OF EXAM: 05/09/2024 COMPARISON: us 2022 CLINICAL INDICATION: Male, 59 years old with history of IVONE; IVONE TECHNIQUE: Grayscale imaging of the bilateral kidneys and urinary bladder: FINDINGS: EXAM MEASUREMENTS: Right Kidney: 11.5 x 5.2 x 5.8 cm Left Kidney: 9.9 x 6.7 x 5.2 cm slightly limited due to overlying bowel gas Right Kidney: Increased parenchymal echogenicity. Hypoechoic partially exophytic cystic lesion measur ing 1.3 x 0.8 cm, not definitively visualized on prior studies. Left Kidney: Increased parenchymal echogenicity. Simple appearing cyst in the superior left kidney me asuring 1.9 cm. Bladder: wnl Bilateral Jets seen: not visualized at this time There is no evidence for hydronephrosis at this point in time. No nephrolithiasis is seen. The urin yun bladder is unremarkable. IMPRESSION: 1. No evidence of acute obstructive uropathy. 2. Increased bilateral parenchymal echogenicity suggesting underlying medical renal disease. 3. Indeterminate hypoechoic lesion in the right kidney measuring 1.3 cm, not definitively visualized on prior ultrasound studies. Consider further evaluation with CT or MRI utilizing IV contrast as cli nically warranted. 4. Simple cyst in the left kidney measuring 1.9 cm. [facility], , 05/09/2024 8:25 PM
[2024-05-09 20:45] LABS: Glucose,Whole Blood 260 mg/dL (70-110)
[2024-05-10 06:08] LABS: Glucose,Whole Blood 193 mg/dL (70-110)
[2024-05-10 08:29] LABS: HGB 12.6 g/dL (13.0-17.0); MCH 25.8 pg (27.0-32.0); MCHC 31.5 g/dL (32.0-37.0); MCV 81.8 FL (80.0-97.0); Mean Platelet Volume 12.3 FL (9.5-12.2); NRBC Per 100 WBC 0 X 10*3/uL (0.00-0.01); Platelet Count 178 X 10*3/uL (140-440); RBC 4.89 X 10*6/uL (4.40-5.60); RDW 16.3 % (11.5-14.5)
[2024-05-10 08:42] LABS: BUN/Creat Ratio 37.65 Ratio (12.00-20.00); Blood Urea Nitrogen 75.3 mg/dL (9.0-27.0); Chloride 102 mmol/L (96-109); Glucose 239 mg/dL (70-110); Potassium 3.4 mmol/L (3.5-5.5); Sodium 141 mmol/L (135-145)
[2024-05-10 08:43] LABS: ALT 18 U/L (10-49); AST 17 U/L (14-35); Albumin 3.2 g/dL (3.8-4.9); Albumin/Globulin Ratio 1.23 Ratio (1.60-3.17); Alkaline Phosphatase 127 U/L (41-126); Calcium 8.2 mg/dL (8.7-10.3); Globulin 2.6 g/dL (1.6-3.3); Total Bilirubin 0.5 mg/dL (0.3-1.2); Total Protein 5.8 g/dL (6.2-8.2)
--- NOTE | 2024-05-10 10:27 | P.NPCON ---
History of Present Illness - Reason for Consult acute renal failure - History of Present Illness Patient is a 59-year-old male with history of coronary artery disease, type 2 diabetes, hypertension and ischemic cardiomyopathy with EF of 40 to 45% on echocardiogram in May 2023. Patient is admitted to the hospital with complaints of shortness of breath and increased leg swelling. He has been diuresed. Currently maintained on oral Lasix 40 mg twice daily. Zaroxolyn was added yesterday. Patient is also maintained on Decadron which was started yesterday. No significant hypotension noted Patient states he has been voiding. Cozaar was discontinued yesterday Serum creatinine was 1.1 on admission and increased to 2.1 yesterday. It is 2.0 today. Patient is complaining of increased shortness of breath today. Past Medical History Past Medical History: Asthma, Coronary Artery Disease (CAD), Chest Pain / Angina, Diabetes Mellitus, Deep Vein Thrombosis (DVT), Hyperlipidemia, Hypertension, Myocardial Infarction (MS), Sleep Apnea/CPAP/BIPAP Additional Past Medical History / Comment(s): Obstructive sleep apnea CPAP, bronchitis, IDDM type II, DVT L leg, cellulitis L leg 2012 cellulitis L Arm 2017, diabetic neuropathy affects feet and hands, chronic kidney disease stage II Last Myocardial Infarction Date:: 06/23/13 History of Any Multi-Drug Resistant Organisms: Acinetobacter (MDRO), MRSA Date of last positivie culture/infection: 08/2014 MDRO Source:: abdomen around navel Past Surgical History: Back Surgery, Coronary Bypass/CABG, Heart Catheterization, Heart Catheterization With Stent, Hernia Repair Additional Past Surgical History / Comment(s): Cardiac caths, PCI with stents (4total), 2006 CABG 6 vessels, spinal fusion L4-L5, fasciotomy left thigh, bila teral inguinal hernia repairs, I&D L forearm with dehisence then compartment syndrome with fasciotomy Left forearm - June 2016, teeth extraction Past Anesthesia/Blood Transfusion Reactions: No Reported Reaction Date of Last Stent Placement:: 08/28/15 Past Psychological History: No Psychological Hx Reported Smoking Status: Never smoker Past Alcohol Use History: None Reported Additional Past Alcohol Use History / Comment(s): He denies any medical ma rijuana, marijuana, street drug use. Past Drug Use History: None Reported - Past Family History Brother(s) History Unknown: Yes Additional Family Medical History / Comment(s): Patient has 1 brother and 1 sister with no major medical problems. Mother History Unknown: Yes Family Medical History: Congestive Heart Failure (CHF), Diabetes Mellitus Additional Family Medical History / Comment(s): Mother at the age of 84 from with history of chronic renal disease stage. Father History Unknown: Yes Family Medical History: COPD, Coronary Artery Disease (CAD), Myocardial Infarction (MS) Additional Family Medical History / Comment(s): Father of a MS at the age of 60 yrs with history of COPD. Sister(s) History Unknown: Yes Family Medical History: Rheumatoid Arthritis (RA) Additional Family Medical History / Comment(s): Patient has 1 sister with no major medical problems. Medications and Allergies Home Medications Medication Instructions Recorded Confirmed Type Ezetimibe [Zetia] 10 mg PO DAILY 12/15/20 05/05/24 History Losartan Potassium [Cozaar] 100 mg PO DAILY #30 tablet 03/18/22 05/05/24 Rx Atorvastatin [Lipitor] 80 mg PO DAILY 04/09/22 05/05/24 History metFORMIN HCL 1,000 mg PO BID 04/09/22 05/05/24 History Insulin Aspart [NovoLOG Flexpen] 9 - 12 units SQ TID-W/MEALS 06/05/23 05/05/24 History carvediloL [Coreg] 25 mg PO BID 06/05/23 05/05/24 History Furosemide [Lasix] 40 mg PO BID@0900,1600 #60 tab 06/15/23 05/05/24 Rx Apixaban [Eliquis] 5 mg PO BID 05/05/24 05/08/24 History Dapagliflozin Propanediol [Farxiga] 10 mg PO DAILY 05/05/24 05/08/24 History Gabapentin 300 mg PO BID 05/05/24 05/05/24 History Insulin Glargine,Hum.rec.anlog 30 unit SQ HS 05/05/24 05/05/24 History [Basaglar Kwikpen U-100] amLODIPine [Norvasc] 5 mg PO DAILY 05/05/24 05/05/24 History hydrALAZINE HCL [Apresoline] 25 mg PO TID 05/05/24 05/05/24 History Allergies Allergy/AdvReac Type Severity Reaction Status Date / Time adhesive tape Allergy Severe Rash/Hives Verified 05/05/24 17:58 vancomycin Allergy Mild Head Itches Verified 05/05/24 17:58 Physical Exam Vitals: Vital Signs Temp Pulse Pulse Resp BP BP Pulse Ox 05/10/24 07:00 97.4 F L 66 15 132/64 96 05/10/24 06:47 76 05/10/24 06:38 75 05/10/24 02:01 98.4 F 77 14 113/68 96 05/09/24 22:12 123/65 05/09/24 20:53 73 05/09/24 20:44 70 05/09/24 19:37 98.2 F 68 15 158/83 97 05/09/24 17:02 73 116/68 05/09/24 15:34 70 05/09/24 15:25 76 05/09/24 12:55 97.5 F L 74 17 127/70 92 L 05/09/24 11:56 72 05/09/24 11:47 76 Intake and Output 05/09/24 05/10/24 05/10/24 22:59 06:59 14:59 Intake Total 118 Output Total 1649 Balance -1531 Intake: Oral 118 Output: Urine 1649 Other: Voiding Method Urinal Weight 83.6 kg Patient is awake, comfortable, no acute distress Examination of the heart S1 and S2 Examination of the lungs bilateral breath sounds are heard Abdomen is soft nontender Examination of lower extremity shows edema 2+ bilaterally 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 Acute kidney injury, cardiorenal, rule out urine retention. No significant hypotension noted. Currently off of angiotensin receptor blockers. Check UA. No evidence of obstruction noted. Consider inotropic agents if no improvement in volume status. 2. Acute on chronic CHF with reduced EF of 40 to 45% on echocardiogram in May 2023 3. Volume overload, likely worsened with use of steroids 4. Hypokalemia secondary to diuretics 5. Type 2 diabetes maintained on insulin 6. Chronic A-fib Plan: Change Lasix to IV Check bladder scan rule out urine retention Continue with Zaroxolyn Continue off of Cozaar Accurate I's and O's If there is no improvement in diuresis patient will need to start inotropic agent/dobutamine given the reduced ejection fraction. We may also need to repeat another echocardiogram. Thank you for this consultation. We will continue to follow the patient with you during his hospitalization
--- NOTE | 2024-05-10 10:52 | P.PN ---
Subjective Progress Note Date: 05/10/24 HISTORY OF PRESENT ILLNESS: This is a 59-year-old male with a past medical history significant for coronary artery disease with previous CABG and stenting, hypertension, hyperlipidemia, diabetes, CVA, atrial fibrillation, and GI bleed. Patient follows in the office with Dr. Ga. We have been asked to see the patient in consultation for CHF. Patient examined at the bedside. Patient presented to the hospital for chief complaint of shortness of breath. Patient states for the past 3 to 4 days he h as been progressively getting more short of breath at home. He also reports having a frequent cough. He denies any fever or sick contacts. DIAGNOSTICS: - EKG reveals atrial fibrillation with controlled ventricular rate - Chest xray cardiomegaly with new small bilateral pleural effusions. Findings concerning for CHF exacerbation/fluid overload state. - Laboratory data: WBC 7.8. Hemoglobin 13.4. Platelet count 175. Sodium 143. Potassium 3.3. BUN 25. Creatinine 1.4. Troponin negative x 1. proBNP 6130. - Current home cardiac medications include hydralazine 25 mg 3 times daily, carvedilol 25 mg twice a day, amlodipine 5 mg daily, losartan 100 mg daily, Lasix 40 mg twice a day, Zetia 10 mg daily, Farxiga 10 mg daily, Lipitor 80 mg daily, and Eliquis 5 mg twice a day. - Most recent echocardiogram obtained in May 2023 revealed ejection fraction 40 to 45%, severe pulmonary hypertension, moderate posteriorly directed mitral regurgitation and severe tricuspid regurgitation - Cardiac catheterization history: March 2022 revealing severe triple-vessel disease. Patent stented segment in the ramus intermedius and proximal left circumflex. Patent MAE to LAD. Patent SVG to OM. Chronically occluded SVG to RCA and diagonal branch. No significant progression of disease since 2019. Medical management was recommended. 05/07/2024 Patient examined this morning at the bedside. Patient currently denies chest pain or pressure. He continues to report shortness of breath with a frequent cough. He remains on IV Lasix every 8 hours. Creatinine today 1.8. 2D echo remains pending. 05/08 Patient seen and examined. No complaints of chest pain or chest pressure. He has been on IV Lasix transition to oral this morning. Blood pressure 152/84, heart rate 62, pulse ox 99% on room air. RUBENS and weights do not appear to be accurate. Repeat blood work reveals WBC 17, hemoglobin 13.5, BUN 48 creatinine 1.9. Repeat chest x-ray reveals mild cardiomegaly. Improved aeration of the lungs. Echocardiogram is pending. 05/09 Patient seen and examined. Patient has a continuous cough this morning. He is very angry because he is not feeling better from when he came into the hospital. Yesterday, patient's IV Lasix was transitioned to oral due to worsening renal function. Today, BUN 66 and creatinine 2.1. Echocardiogram performed in the office on 04/19/2024: EF 45 to 50% with global LV hypokinesis without regional heterogeneity. There is mild left ventricular hypertrophy. Aortic valve is calcified. Moderate to severe mitral regurgitation, moderate tricuspid regurgitation. PASP 88 mmHg. Mild to moderate pulmonic regurgitation. 05/10 Patient seen and examined. Patient states he is feeling still the same from yesterday. It is noted he is having less coughing from yesterday. Patient has been seen by pulmonary medicine and started on IV Decadron. Blood pressure 13 2/64, heart rate 66, pulse ox 96% on room air. Repeat blood work reveals WBC 15, hemoglobin 12.6, BUN 75 creatinine 2. A consult was added for nephrology acute kidney injury. PHYSICAL EXAM: VITAL SIGNS: Reviewed. GENERAL: Well-developed in no acute distress. HEENT: Head is normocephalic. Pupils are equal, round. Sclerae anicteric. Mucous membranes of the mouth are moist. Neck supple. No JVD or thyromegaly LUNGS: Respirations even and unlabored. Lungs with expiratory wheezing noted. HEART: Irregular rate and rhythm. S1 and S2 heard. ABDOMEN: Soft. Nondistended. Nontender. EXTREMITIES: No clubbing or cyanosis. Peripheral pulses intact. 1+ bilateral lower extremity edema noted NEUROLOGIC: Awake and alert. Oriented x 3. ASSESSMENT: Shortness of breath Acute on chronic heart failure with reduced EF, 40 to 45% Coronary artery disease with previous three-vessel CABG and known chronically occluded SVG to RCA and diagonal branch Ischemic cardiomyopathy Persistent atrial fibrillation with controlled ventricular rate Hypertension Hyperlipidemia Diabetes CVA History of GI bleed Acute kidney injury, nephrology on consult Severe pulmonary hypertension Valvular heart disease with moderate to severe mitral regurgitation, moderate tricuspid regurgitation, mild to moderate pulmonic regurgitation PLAN: Continue cardiac medications including amlodipine, Eliquis, atorvastatin, carvedilol, Zetia, hydralazine Patient is off Farxiga, losartan Continue oral Lasix 40 mg twice daily Continue Zaroxolyn 2.5 mg daily Daily weights, accurate intake and output, monitoring of kidney function Pulmonary medicine consult appreciated Further recommendations pending patient course Nurse practitioner note has been reviewed by physician. Signing provider agrees with the documented findings, assessment, and plan of care documented by BILLING AND INSURANCE COORDINATOR as a scribe. Objective - Vital Signs Vital signs: Vital Signs Temp 97.4 F L 05/10/24 07:00 Pulse 66 05/10/24 07:00 Resp 15 05/10/24 07:00 BP 132/64 05/10/24 07:00 Pulse Ox 96 05/10/24 07:00 FiO2 Intake & Output 05/09/24 05/10/24 05/10/24 18:59 06:59 18:59 Intake Total 1328 Output Total 885 3625 500 Balance 443 -3625 -500 Weight 83.6 kg Intake: Oral 1328 Output: Urine 885 3625 500 Other: Voiding Method Urinal - Labs CBC & Chem 7: 05/10/24 04:39 05/10/24 04:39 Labs: Abnormal Lab Results - Last 24 Hours (Table) 05/09/24 05/09/24 05/09/24 Range/Units 03:45 03:45 08:41 WBC 14.92 H (4.50-10.00) X 10*3/uL MCH 25.8 L (27.0-32.0) pg MCHC 31.8 L (32.0-37.0) g/dL RDW 16.7 H (11.5-14.5) % MPV 12.3 H (9.5-12.2) FL Immature Gran # 0.09 H (0.00-0.04) X 10*3/uL Neutrophils # 13.34 H (1.80-7.70) X 10*3/uL Lymphocytes # 0.76 L (0.90-5.00) X 10*3/uL Eosinophils # 0 L (0.04-0.35) X 10*3/uL Anion Gap 14.40 H (4.00-12.00) mmol/L BUN 66.8 H (9.0-27.0) mg/dL Creatinine 2.1 H (0.6-1.5) mg/dL Est GFR (CKD-EPI) 35 L (>=60) BUN/Creatinine Ratio 31.81 H (12.00-20.00) Ratio Glucose 267 H (70-110) mg/dL POC Glucose (mg/dL) 180 H (70-110) mg/dL Calcium 8.3 L (8.7-10.3) mg/dL Alkaline Phosphatase 146 H (41-126) U/L Albumin 3.3 L (3.8-4.9) g/dL Albumin/Globulin Ratio 1.14 L (1.60-3.17) Ratio 05/09/24 05/09/24 05/09/24 Range/Units 12:36 17:24 20:44 WBC (4.50-10.00) X 10*3/uL MCH (27.0-32.0) pg MCHC (32.0-37.0) g/dL RDW (11.5-14.5) % MPV (9.5-12.2) FL Immature Gran # (0.00-0.04) X 10*3/uL Neutrophils # (1.80-7.70) X 10*3/uL Lymphocytes # (0.90-5.00) X 10*3/uL Eosinophils # (0.04-0.35) X 10*3/uL Anion Gap (4.00-12.00) mmol/L BUN (9.0-27.0) mg/dL Creatinine (0.6-1.5) mg/dL Est GFR (CKD-EPI) (>=60) BUN/Creatinine Ratio (12.00-20.00) Ratio Glucose (70-110) mg/dL POC Glucose (mg/dL) 209 H 261 H 260 H (70-110) mg/dL Calcium (8.7-10.3) mg/dL Alkaline Phosphatase (41-126) U/L Albumin (3.8-4.9) g/dL Albumin/Globulin Ratio (1.60-3.17) Ratio 05/10/24 Range/Units 06:06 WBC (4.50-10.00) X 10*3/uL MCH (27.0-32.0) pg MCHC (32.0-37.0) g/dL RDW (11.5-14.5) % MPV (9.5-12.2) FL Immature Gran # (0.00-0.04) X 10*3/uL Neutrophils # (1.80-7.70) X 10*3/uL Lymphocytes # (0.90-5.00) X 10*3/uL Eosinophils # (0.04-0.35) X 10*3/uL Anion Gap (4.00-12.00) mmol/L BUN (9.0-27.0) mg/dL Creatinine (0.6-1.5) mg/dL Est GFR (CKD-EPI) (>=60) BUN/Creatinine Ratio (12.00-20.00) Ratio Glucose (70-110) mg/dL POC Glucose (mg/dL) 193 H (70-110) mg/dL Calcium (8.7-10.3) mg/dL Alkaline Phosphatase (41-126) U/L Albumin (3.8-4.9) g/dL Albumin/Globulin Ratio (1.60-3.17) Ratio
[2024-05-10 12:15] LABS: Glucose,Whole Blood 341 mg/dL (70-110)
--- NOTE | 2024-05-10 13:46 | P.PN ---
Subjective Progress Note Date: 05/10/24 This is a 59-year-old male patient with a history of obstructive sleep apnea maintained on CPAP, mild intermittent chronic bronchial asthma, lifelong non- smoker, hypertension, hyperlipidemia, diabetes mellitus, diabetic neuropathy, chronic kidney disease stage II, Black artery disease with previous stents and subsequent bypass grafting surgery. He presented here back on May 05, 2024 with complaints of shortness of breath, cough and congestion for 3 days prior. Chest x-ray revealed cardiomegaly with new small bilateral pleural effusions. White count 14.9. Hemoglobin 13.5. Platelets 187. Sodium 140. Potassium 4.3. Bicarb 23. BUN 67. Creatinine 2.1. Glucose 267. Follow-up chest x-ray rev ealed mild cardiomegaly with improved aeration of the lungs. He is seen this morning in consultation on the regular medical floor. He is awake and alert in no acute distress. He was still having issues with dry nonproductive cough. No fever or chills. Maintaining good O2 saturations in the mid 90s on room air. Hemodynamically stable. The patient is seen today May 10, 2024 in follow-up on the regular medical floor. He is currently sitting up at the bedside. Awake and alert in no acute distress. Much less cough and congestion today compared to yesterday. He is maintaining good O2 saturations in the 90s on room air. Ultrasound of the kidneys revealed no evidence of hydronephrosis. White count 15.1. Hemoglobin 12.6. Platelets 178. Sodium 141. Potassium 3.4. Bicarb 25. BUN 75. Creatinine 2.0. Glucose 239. He remains on DuoNeb inhalations, Symbicort, Decadron. Anticoagulated with Eliquis. Remains on Lantus and Humalog sliding scale. Remains on diuretics. Objective - Vital Signs Vital signs: Vital Signs Temp 97.4 F L 05/10/24 07:00 Pulse 72 05/10/24 11:38 Resp 15 05/10/24 07:00 BP 132/64 05/10/24 07:00 Pulse Ox 96 05/10/24 07:00 FiO2 Intake & Output 05/09/24 05/10/24 05/10/24 18:59 06:59 18:59 Intake Total 1328 Output Total 366 8667 7023 Balance 443 -3625 -1600 Weight 83.6 kg Intake: Oral 1328 Output: Urine 885 5875 1600 Other: Voiding Method Urinal - Exam GENERAL EXAM: Alert, 59-year-old male, sitting up at the bedside, on room air, comfortable in no apparent distress. HEAD: Normocephalic. EYES: Normal reaction of pupils, equal size. NOSE: Clear with pink turbinates. THROAT: No erythema or exudates. NECK: No masses, no JVD. CHEST: No chest wall deformity. LUNGS: Equal air entry with faint end expiratory wheeze, few scattered rhonchi. CVS: S1 and S2 normal with no audible murmur, regular rhythm. ABDOMEN: No hepatosplenomegaly, normal bowel sounds, no guarding or rigidity. SPINE: No scoliosis or deformity SKIN: No rashes CENTRAL NERVOUS SYSTEM: No focal deficits, tone is normal in all 4 extremities. EXTREMITIES: There is no peripheral edema. No clubbing, no cyanosis. Peripheral pulses are intact. - Labs CBC & Chem 7: 05/10/24 04:39 05/10/24 04:39 Labs: Abnormal Lab Results - Last 24 Hours (Table) 05/09/24 05/09/24 05/10/24 Range/Units 17:24 20:44 04:39 WBC 15.10 H (4.50-10.00) X 10*3/uL Hgb 12.6 L (13.0-17.0) g/dL MCH 25.8 L (27.0-32.0) pg MCHC 31.5 L (32.0-37.0) g/dL RDW 16.3 H (11.5-14.5) % MPV 12.3 H (9.5-12.2) FL Potassium (3.5-5.5) mmol/L Anion Gap (4.00-12.00) mmol/L BUN (9.0-27.0) mg/dL Creatinine (0.6-1.5) mg/dL Est GFR (CKD-EPI) (>=60) BUN/Creatinine Ratio (12.00-20.00) Ratio Glucose (70-110) mg/dL POC Glucose (mg/dL) 261 H 260 H (70-110) mg/dL Calcium (8.7-10.3) mg/dL Alkaline Phosphatase (41-126) U/L Total Protein (6.2-8.2) g/dL Albumin (3.8-4.9) g/dL Albumin/Globulin Ratio (1.60-3.17) Ratio 05/10/24 05/10/24 05/10/24 Range/Units 04:39 06:06 12:14 WBC (4.50-10.00) X 10*3/uL Hgb (13.0-17.0) g/dL MCH (27.0-32.0) pg MCHC (32.0-37.0) g/dL RDW (11.5-14.5) % MPV (9.5-12.2) FL Potassium 3.4 L (3.5-5.5) mmol/L Anion Gap 14.00 H (4.00-12.00) mmol/L BUN 75.3 H (9.0-27.0) mg/dL Creatinine 2.0 H (0.6-1.5) mg/dL Est GFR (CKD-EPI) 37 L (>=60) BUN/Creatinine Ratio 37.65 H (12.00-20.00) Ratio Glucose 239 H (70-110) mg/dL POC Glucose (mg/dL) 193 H 341 H (70-110) mg/dL Calcium 8.2 L (8.7-10.3) mg/dL Alkaline Phosphatase 127 H (41-126) U/L Total Protein 5.8 L (6.2-8.2) g/dL Albumin 3.2 L (3.8-4.9) g/dL Albumin/Globulin Ratio 1.23 L (1.60-3.17) Ratio Assessment and Plan Assessment: Acute exacerbation of mild intermittent chronic bronchial asthma versus post infectious cough syndrome, possible acid reflux Diabetes mellitus, type II Diabetic neuropathy Coronary artery disease with previous stents/coronary artery bypass grafting Hyperlipidemia Hypertension History of congestive heart failure Lifelong non-smoker Plan: The patient was seen and evaluated Imaging, labs and medications reviewed Continue Symbicort and DuoNeb inhalations Continue Decadron 6 mg IV push every 6 hours Currently stable and on room air oxygen Improved with much less cough today We will continue to follow I have personally seen and examined the patient, performed the documentation and the assessment and plan as written. Number of minutes spent on the visit: 10 Dictation was produced using [employer] software. Please excuse any grammatical, word or spelling errors.
--- NOTE | 2024-05-10 14:30 | P.PN ---
Subjective Progress Note Date: 05/10/24 HISTORY OF PRESENT ILLNESS: This is a 59-year-old male patient of rosita and Dr. Ga with past medical history of coronary artery disease status post 6 vessel CABG 2006 with MAE to LAD, saphenous venous graft to the PDA, saphenous venous graft to the obtuse marginal one, radial artery to the obtuse marginal branch 2 and saphenous venous graft to the obtuse marginal 3 followed by heart catheterization with PCI and stent of the saphenous venous graft to the RCA in 2015 at which time he pres ented with non-ST elevated myocardial infarction. Most recent cardiac catheterization was performed on 04/10/2022 which revealed severe triple-vessel coronary artery disease with a patent ramus intermediate, patent SVG to the OM, patent MAE to the LAD, and occluded saphenous vein graft to the RCA which is chronic from before. Medical therapy was advised at that time. History of hypertension, hypertensive cardiovascular disease with left ventricular hypertrophy, hyperlipidemia, ischemic cardiomyopathy, paroxysmal atrial fibrillation, currently on Eliquis, diabetes mellitus type 2 with diabetic polyneuropathy, hyperlipidemia, asthma, obstructive sleep apnea on CPAP, chronic low back pain, DVT in the past, patient was recently hospitalized at [facility] between 06/05/2023 and discharged 06/15/2023 after he was admitted for GI bleed due to esophageal ulcer. Patient had EGD and incomplete colonoscopy due to poor prep at that time. Patient presented to the ER at [facility] due to increased cough and increased shortness of breath, was complaining of increased edema in both legs and ws seen by Isaiah Pena and PCR was negative for COVID-19. Influenza A, B annd RSV, CXR showed evidence of CHF with bilateral pleural effusion, with elevated BNP, was started on Furosemide 40 mg IVP q 8 h and was admitted to the hospital for acute on chronic systolic heart failure 05/06: Patient sitting up in bed in no apparent distress, he is feeling better today, he denies any chest pain, shortness of breath, he continues to have a significant coughing, no phlegm production, he continues to complain of pleurisy in his chest, I will start the patient on Solu-Medrol 40 mg a push every 8 ho arias DuoNeb 3 nebulization 4 times every day, also Pulmicort 1 mg nebulization twice every day, follow-up with the patient very closely he swelling is a bit better today, his potassium is down we will start potassium supplement 20 mg orally twice every day, follow-up with the patient labs in the next 24 hours, continue current treatment plan, patient was seen in consultation by cardiology recommended to continue current treatment plan 05/07: Patient is feeling better today, he is having less coughing, no chest pain or shortness of breath, he continues to have minimal pleurisy, he has been star raquel on Solu-Medrol 40 mg IV push every 8 hours we will decrease that to every 12 hours, continue with Tessalon Perles 200 mg orally 3 times every day, continue with nebulized treatment in the form of DuoNeb and Pulmicort, hopefully patient will be able to be discharged home in the next 24 hours. Allergy has seen the patient, and they recommended to continue same treatment plan. I will decrease IV Lasix to 40 mg IV push every 12 hours 05/08: Patient sitting up in bed he is complaining of increased swelling in the right upper extremity more than the left upper extremity, continues to have swel ling both lower extremity, he switched to Lasix 40 mg orally twice every day, discontinued Solu-Medrol, start the patient on prednisone 40 mg once every day, continue Zithromax 500 mg once every day, chest x-ray was done showed improvement in the aeration of the lung, continue current treatment plan, keep the patient in the hospital 05/09: Patient is feeling a bit better today, he continues to have some swelling in both lower extremities, he denies any chest pain, less short of breath, he continues to have some cough, he was switched to Symbicort 160/4.5 mcg 2 puffs in elation twice every day he continues to be on DuoNeb treatment nebulization 4 times every day, oxygen support, was seen by cardiology yesterday recommended to continue Lasix 40 mg orally twice every day, monitor input and output and daily weight, increase activity, follow-up with the patient very closely, his kidney function just appears to be worse, he was started on Zaroxolyn 2.5 mg orally today I will discontinue Farxiga, discontinue losartan, monitor the patient blood pressure very closely, ultrasound of the kidneys will be done, nephrology consultation Dr. Pope pulmonary consultation was obtained from Dr. Allen as well. 05/10: Patient is laying down in bed not feeling well at all, he continues to have significant edema in both upper and lower extremities, continue Lasix 40 mg orally twice every day, he was seen in consultation by nephrology who recommended to have a bladder scan since the patient I believe he is retaining urine, even though the ultrasound did not show evidence of any hydronephrosis at this time, there is a lesion in the kidney that need to be evaluated as an outpatient, we will discuss with cardiology and nephrology the possibility of starting the patient on dobutamine drip at this time, to try to improve his cardiac output, to increase his kidney perfusion, keep the patient off losartan, keep the patient off Farxiga for now, monitor the patient input and output and daily weight, avoid nephrotoxins. REVIEW OF SYSTEMS: Constitutional: No documented fever, no chills, no night sweats. No weight change. Positive for weakness, positive for fatigue, no lethargy. No daytime sleepiness. HEENT: No headache. No blurred vision or double vision, no loss of vision. No loss of Hearing, no ringing in the ears, no dizziness. No nasal drainage or congestion. No epistaxis. No sore throat. Lungs: positive for shortness of breath, occasional cough, minimal sputum production. no wheezing. Reports dyspnea with activity. Cardiovascular: no chest pain, positive for lower extremity edema. No palpitations. No paroxysmal nocturnal dyspnea. No orthopnea. positive for lig htheadedness or dizziness. No syncopal episodes. Abdominal: Reports no abdominal pain. no nausea, vomiting. No diarrhea. No constipation. No bloody or tarry stools reports loss of appetite. Genitourinary: No dysuria, increased frequency, urgency. No urinary retention. Musculoskeletal: No myalgias. positive for muscle weakness, no gait dysfunction, frequent falls. No back pain. No neck pain. Integumentary: scabbed wounds to left caballero , no lesions. No rash or pruritus. No unusual bruising. No change in hair or nails. Neurologic: No aphasia. Minimal facial droop. No change in mentation. No head injury. No headache, minimal drift. Psychiatric: positive for depression. No anxiety. No mood swings. Endocrine: abnormal blood sugars. No weight change. PHYSICAL EXAMINATION: General: 59-year-old male laying down in mild respiratory distress. HEENT: Head is atraumatic, normocephalic, pupils were equal round reactive to light and recommendation, extraocular muscle movement were intact, sclera nonicteric, conjunctivae were pale, mucous membranes of the mouth are somewhat dry. Neck: Supple, no JVP, normal carotid upstroke bilaterally, no lymphadenopathy. Chest: Decreased breath sounds at the bases, few rhonchi positive for expirratory wheezes,, no chest wall tenderness, no intercostal retractions. Heart: First heart sound is normal, second heart sounds normal, there is systolic ejection murmur 2/6 located in the left sternal border. Abdomen: Soft, nontender, nondistended, positive bowel sounds, there is no hepatosplenomegaly Extremities: There is +2 edema no calf tenderness DP +1 bilaterally. Neurologic examination: Patient is awake alert and oriented X 3, cranial nerves II-12 appear grossly intact, muscle power were 4 out of 5 in upper extremities and 4 out of 5 in bilateral lower extremities, deep tendon reflexes normal bilaterally. Minimal right facial droop, and right leg weakness. ASSESSMENT AND PLAN: 1. Acute on chronic systolic heart failure . Continue patient on Lasix 40 mg orally twice every day, continue Zaroxolyn 2.5 mg orally once every day, continue to monitor input and output and daily weight cardiology and nephrology consultation appreciated. 2. Hyponatremia due to hypervolemia. Resolved. 3. Possible asthma/chronic bronchitis with mild exacerbation patient was seen in consultation by pulm medicine who recommended the same treatment plan, added dexamethasone 6 mg IV push every 6 hours, continue DuoNeb 3 mL nebulization 4 times every day, continue oxygen support continue Symbicort twice every day as well as 4. Acute kidney injury due to vasomotor nephropathy and aggressive diuresis with ATN. Reviewed ultrasound of the kidney that showed evidence of no hydronephrosis, but there was a renal lesion that will be followed as an outpatient. 5. Hypertension and hypertensive cardiovascular disease. Stop losartan, continue patient on Carvedilol 25 mg orally twice every day, continue Amlodipine 5 mg po daily, continue with Hydralazine as well and monitor BP very closely. 6. Diabetes mellitus type 2 with steroid-induced hyperglycemia. we will maintain patient on Lantus 30 units at bedtime along with a sliding scale insulin, we will continue with Humalog 9 units before each meal, continue off Farxiga, along with a sliding scale insulin. 7. Coronary artery disease status post CABG 6 as well as PCI in the past. Continue patient on ASA 81 mg once every day, Carvedilol 25 mg orally twice every day, continue patient on atorvastatin 80 mg orally once every day, continue Zetia 10 mg orally once every day. 8. Hyperlipidemia. Continue patient on atorvastatin 80 mg once every day, continue Zetia 10 mg orally once every day, monitor lipid panel, keep LDL 55-70. 9. Diabetic polyneuropathy. Continue patient on gabapentin decrease the dose to 600 mg mg orally 2 times every day. 10. Obstructive sleep apnea. Patient does have a CPAP at home. 11. Chronic systolic heart failure. Continue with Furosemide 40 mg orally q 12 h , Carvedilol 25 mg po bid continue off Farxiga for now due to acute kidney injury. 12. Paroxysmal atrial fibrillation . Continue patient on Coreg 25 mg orally twice every day, Eliquis 5 mg po bid. 13. DVT prophylaxis. Continue Eliquis 5 mg orally twice every day. 14. GI prophylaxis. Continue Protonix 40 mg orally bid 15. History of CVA in the past recovered well, we will continue with Atorvastatin 80 mg po daily and Eliquis for life we will repeat labs tomorrow morning for 16. Hypokalemia status post replacement. 17. further recommendations to follow the protection consultant recommendations. Objective - Vital Signs Vital signs: Vital Signs Temp 97.4 F L 05/10/24 07:00 Pulse 72 05/10/24 11:38 Resp 15 05/10/24 07:00 BP 132/64 05/10/24 07:00 Pulse Ox 96 05/10/24 07:00 FiO2 Intake & Output 05/09/24 05/10/24 05/10/24 18:59 06:59 18:59 Intake Total 1328 Output Total 885 3625 1600 Balance 443 -5868 -1600 Weight 83.6 kg Intake: Oral 1328 Output: Urine 885 3625 1600 Other: Voiding Method Urinal - Labs CBC & Chem 7: 05/10/24 04:39 05/10/24 04:39 Labs: Abnormal Lab Results - Last 24 Hours (Table) 05/09/24 05/09/24 05/10/24 Range/Units 17:24 20:44 04:39 WBC 15.10 H (4.50-10.00) X 10*3/uL Hgb 12.6 L (13.0-17.0) g/dL MCH 25.8 L (27.0-32.0) pg MCHC 31.5 L (32.0-37.0) g/dL RDW 16.3 H (11.5-14.5) % MPV 12.3 H (9.5-12.2) FL Potassium (3.5-5.5) mmol/L Anion Gap (4.00-12.00) mmol/L BUN (9.0-27.0) mg/dL Creatinine (0.6-1.5) mg/dL Est GFR (CKD-EPI) (>=60) BUN/Creatinine Ratio (12.00-20.00) Ratio Glucose (70-110) mg/dL POC Glucose (mg/dL) 261 H 260 H (70-110) mg/dL Calcium (8.7-10.3) mg/dL Alkaline Phosphatase (41-126) U/L Total Protein (6.2-8.2) g/dL Albumin (3.8-4.9) g/dL Albumin/Globulin Ratio (1.60-3.17) Ratio 05/10/24 05/10/24 05/10/24 Range/Units 04:39 06:06 12:14 WBC (4.50-10.00) X 10*3/uL Hgb (13.0-17.0) g/dL MCH (27.0-32.0) pg MCHC (32.0-37.0) g/dL RDW (11.5-14.5) % MPV (9.5-12.2) FL Potassium 3.4 L (3.5-5.5) mmol/L Anion Gap 14.00 H (4.00-12.00) mmol/L BUN 75.3 H (9.0-27.0) mg/dL Creatinine 2.0 H (0.6-1.5) mg/dL Est GFR (CKD-EPI) 37 L (>=60) BUN/Creatinine Ratio 37.65 H (12.00-20.00) Ratio Glucose 239 H (70-110) mg/dL POC Glucose (mg/dL) 193 H 341 H (70-110) mg/dL Calcium 8.2 L (8.7-10.3) mg/dL Alkaline Phosphatase 127 H (41-126) U/L Total Protein 5.8 L (6.2-8.2) g/dL Albumin 3.2 L (3.8-4.9) g/dL Albumin/Globulin Ratio 1.23 L (1.60-3.17) Ratio
[2024-05-10 17:16] LABS: Glucose,Whole Blood 320 mg/dL (70-110)
[2024-05-10 20:23] LABS: Glucose,Whole Blood 335 mg/dL (70-110)
[2024-05-11 05:45] LABS: Glucose,Whole Blood 367 mg/dL (70-110)
[2024-05-11 08:31] LABS: Basophils # (A) 0.01 X 10*3/uL (0.00-0.10); Basophils % (A) 0.1 %; Eosinophils # (A) 0 X 10*3/uL (0.04-0.35); Eosinophils % (A) 0 %; HCT 41.2 % (39.6-50.0); HGB 13.5 g/dL (13.0-17.0); Lymphocytes # (A) 0.47 X 10*3/uL (0.90-5.00); Lymphocytes % (A) 3.4 %; MCH 25.9 pg (27.0-32.0); MCHC 32.8 g/dL (32.0-37.0); MCV 78.9 FL (80.0-97.0); Mean Platelet Volume 12.1 FL (9.5-12.2); Monocytes # (A) 0.33 X 10*3/uL (0.20-1.00); Monocytes % (A) 2.4 %; NRBC Per 100 WBC 0 X 10*3/uL (0.00-0.01); Neutrophils # (A) 13.01 X 10*3/uL (1.80-7.70); Neutrophils % (A) 93.2 %; Platelet Count 180 X 10*3/uL (140-440); RBC 5.22 X 10*6/uL (4.40-5.60); RDW 15.9 % (11.5-14.5); WBC 13.95 X 10*3/uL (4.50-10.00)
[2024-05-11 08:38] LABS: ALT 25 U/L (10-49); AST 21 U/L (14-35); Albumin 3.3 g/dL (3.8-4.9); Albumin/Globulin Ratio 1.27 Ratio (1.60-3.17); Alkaline Phosphatase 141 U/L (41-126); BUN/Creat Ratio 40.36 Ratio (12.00-20.00); Blood Urea Nitrogen 88.8 mg/dL (9.0-27.0); Calcium 8.1 mg/dL (8.7-10.3); Carbon Dioxide 25.4 mmol/L (21.6-31.8); Chloride 98 mmol/L (96-109); Globulin 2.6 g/dL (1.6-3.3); Glucose 393 mg/dL (70-110); Potassium 3.3 mmol/L (3.5-5.5); Sodium 140 mmol/L (135-145); Total Bilirubin 0.6 mg/dL (0.3-1.2); Total Protein 5.9 g/dL (6.2-8.2)
--- NOTE | 2024-05-11 10:22 | P.PN ---
Subjective Progress Note Date: 05/11/24 HISTORY OF PRESENT ILLNESS: This is a 59-year-old male with a past medical history significant for coronary artery disease with previous CABG and stenting, hypertension, hyperlipidemia, diabetes, CVA, atrial fibrillation, and GI bleed. Patient follows in the office with Dr. Ga. We have been asked to see the patient in consultation for CHF. Patient examined at the bedside. Patient presented to the hospital for chief complaint of shortness of breath. Patient states for the past 3 to 4 days he h as been progressively getting more short of breath at home. He also reports having a frequent cough. He denies any fever or sick contacts. DIAGNOSTICS: - EKG reveals atrial fibrillation with controlled ventricular rate - Chest xray cardiomegaly with new small bilateral pleural effusions. Findings concerning for CHF exacerbation/fluid overload state. - Laboratory data: WBC 7.8. Hemoglobin 13.4. Platelet count 175. Sodium 143. Potassium 3.3. BUN 25. Creatinine 1.4. Troponin negative x 1. proBNP 6130. - Current home cardiac medications include hydralazine 25 mg 3 times daily, carvedilol 25 mg twice a day, amlodipine 5 mg daily, losartan 100 mg daily, Lasix 40 mg twice a day, Zetia 10 mg daily, Farxiga 10 mg daily, Lipitor 80 mg daily, and Eliquis 5 mg twice a day. - Most recent echocardiogram obtained in May 2023 revealed ejection fraction 40 to 45%, severe pulmonary hypertension, moderate posteriorly directed mitral regurgitation and severe tricuspid regurgitation - Cardiac catheterization history: March 2022 revealing severe triple-vessel disease. Patent stented segment in the ramus intermedius and proximal left circumflex. Patent MAE to LAD. Patent SVG to OM. Chronically occluded SVG to RCA and diagonal branch. No significant progression of disease since 2019. Medical management was recommended. 05/07/2024 Patient examined this morning at the bedside. Patient currently denies chest pain or pressure. He continues to report shortness of breath with a frequent cough. He remains on IV Lasix every 8 hours. Creatinine today 1.8. 2D echo remains pending. 05/08 Patient seen and examined. No complaints of chest pain or chest pressure. He has been on IV Lasix transition to oral this morning. Blood pressure 152/84, heart rate 62, pulse ox 99% on room air. RUBENS and weights do not appear to be accurate. Repeat blood work reveals WBC 17, hemoglobin 13.5, BUN 48 creatinine 1.9. Repeat chest x-ray reveals mild cardiomegaly. Improved aeration of the lungs. Echocardiogram is pending. 05/09 Patient seen and examined. Patient has a continuous cough this morning. He is very angry because he is not feeling better from when he came into the hospital. Yesterday, patient's IV Lasix was transitioned to oral due to worsening renal function. Today, BUN 66 and creatinine 2.1. Echocardiogram performed in the office on 04/19/2024: EF 45 to 50% with global LV hypokinesis without regional heterogeneity. There is mild left ventricular hypertrophy. Aortic valve is calcified. Moderate to severe mitral regurgitation, moderate tricuspid regurgitation. PASP 88 mmHg. Mild to moderate pulmonic regurgitation. 05/10 Patient seen and examined. Patient states he is feeling still the same from yesterday. It is noted he is having less coughing from yesterday. Patient has been seen by pulmonary medicine and started on IV Decadron. Blood pressure 13 2/64, heart rate 66, pulse ox 96% on room air. Repeat blood work reveals WBC 15, hemoglobin 12.6, BUN 75 creatinine 2. A consult was added for nephrology acute kidney injury. 05/11 Patient is seen and examined. Lung sounds are improving but patient continues to feel short of breath with coughing. He remains on Decadron IV. Repeat blood work reveals BUN 88 and creatinine 2.2. Will plan to discontinue Zaroxolyn. PHYSICAL EXAM: VITAL SIGNS: Reviewed. GENERAL: Well-developed in no acute distress. HEENT: Head is normocephalic. Pupils are equal, round. Sclerae anicteric. Mucous membranes of the mouth are moist. Neck supple. No JVD or thyromegaly LUNGS: Respirations even and unlabored. Lungs with expiratory wheezing noted. HEART: Irregular rate and rhythm. S1 and S2 heard. ABDOMEN: Soft. Nondistended. Nontender. EXTREMITIES: No clubbing or cyanosis. Peripheral pulses intact. 1+ bilateral lower extremity edema noted NEUROLOGIC: Awake and alert. Oriented x 3. ASSESSMENT: Shortness of breath Acute on chronic heart failure with reduced EF, 40 to 45% Coronary artery disease with previous three-vessel CABG and known chronically occluded SVG to RCA and diagonal branch Ischemic cardiomyopathy Persistent atrial fibrillation with controlled ventricular rate Hypertension Hyperlipidemia Diabetes CVA History of GI bleed Acute kidney injury, nephrology on consult Severe pulmonary hypertension Valvular heart disease with moderate to severe mitral regurgitation, moderate tricuspid regurgitation, mild to moderate pulmonic regurgitation PLAN: Continue cardiac medications including amlodipine, Eliquis, atorvastatin, carvedilol, Zetia, hydralazine Patient is off Farxiga, losartan Continue oral Lasix 40 mg twice daily Continue Zaroxolyn 2.5 mg daily Daily weights, accurate intake and output, monitoring of kidney function Pulmonary medicine consult appreciated Further recommendations pending patient course Nurse practitioner note has been reviewed by physician. Signing provider agrees with the documented findings, assessment, and plan of care documented by CLIENT ADMINISTRATOR as a scribe. Objective - Vital Signs Vital signs: Vital Signs Temp 97.5 F L 05/11/24 07:00 Pulse 75 05/11/24 07:00 Resp 18 05/11/24 07:00 BP 138/75 05/11/24 07:00 Pulse Ox 92 L 05/11/24 07:00 FiO2 Intake & Output 05/10/24 05/11/24 05/11/24 18:59 06:59 18:59 Output Total 3200 1750 Balance -3200 -1750 Weight 82.6 kg Output: Urine 3200 1750 Other: Voiding Method Urinal - Labs CBC & Chem 7: 05/11/24 04:40 05/11/24 04:40 Labs: Abnormal Lab Results - Last 24 Hours (Table) 05/10/24 05/10/24 05/10/24 Range/Units 04:39 12:14 17:14 WBC (4.50-10.00) X 10*3/uL MCV (80.0-97.0) FL MCH (27.0-32.0) pg RDW (11.5-14.5) % Immature Gran # (0.00-0.04) X 10*3/uL Neutrophils # (1.80-7.70) X 10*3/uL Lymphocytes # (0.90-5.00) X 10*3/uL Eosinophils # (0.04-0.35) X 10*3/uL Potassium 3.4 L (3.5-5.5) mmol/L Anion Gap 14.00 H (4.00-12.00) mmol/L BUN 75.3 H (9.0-27.0) mg/dL Creatinine 2.0 H (0.6-1.5) mg/dL Est GFR (CKD-EPI) 37 L (>=60) BUN/Creatinine Ratio 37.65 H (12.00-20.00) Ratio Glucose 239 H (70-110) mg/dL POC Glucose (mg/dL) 341 H 320 H (70-110) mg/dL Calcium 8.2 L (8.7-10.3) mg/dL Alkaline Phosphatase 127 H (41-126) U/L Total Protein 5.8 L (6.2-8.2) g/dL Albumin 3.2 L (3.8-4.9) g/dL Albumin/Globulin Ratio 1.23 L (1.60-3.17) Ratio 05/10/24 05/11/24 05/11/24 Range/Units 20:22 04:40 04:40 WBC 13.95 H (4.50-10.00) X 10*3/uL MCV 78.9 L (80.0-97.0) FL MCH 25.9 L (27.0-32.0) pg RDW 15.9 H (11.5-14.5) % Immature Gran # 0.13 H (0.00-0.04) X 10*3/uL Neutrophils # 13.01 H (1.80-7.70) X 10*3/uL Lymphocytes # 0.47 L (0.90-5.00) X 10*3/uL Eosinophils # 0 L (0.04-0.35) X 10*3/uL Potassium 3.3 L (3.5-5.5) mmol/L Anion Gap 16.60 H (4.00-12.00) mmol/L BUN 88.8 H (9.0-27.0) mg/dL Creatinine 2.2 H (0.6-1.5) mg/dL Est GFR (CKD-EPI) 33 L (>=60) BUN/Creatinine Ratio 40.36 H (12.00-20.00) Ratio Glucose 393 H (70-110) mg/dL POC Glucose (mg/dL) 335 H (70-110) mg/dL Calcium 8.1 L (8.7-10.3) mg/dL Alkaline Phosphatase 141 H (41-126) U/L Total Protein 5.9 L (6.2-8.2) g/dL Albumin 3.3 L (3.8-4.9) g/dL Albumin/Globulin Ratio 1.27 L (1.60-3.17) Ratio // Range/Units 05:43 WBC (4.50-10.00) X 10*3/uL MCV (80.0-97.0) FL MCH (27.0-32.0) pg RDW (11.5-14.5) % Immature Gran # (0.00-0.04) X 10*3/uL Neutrophils # (1.80-7.70) X 10*3/uL Lymphocytes # (0.90-5.00) X 10*3/uL Eosinophils # (0.04-0.35) X 10*3/uL Potassium (3.5-5.5) mmol/L Anion Gap (4.00-12.00) mmol/L BUN (9.0-27.0) mg/dL Creatinine (0.6-1.5) mg/dL Est GFR (CKD-EPI) (>=60) BUN/Creatinine Ratio (12.00-20.00) Ratio Glucose (70-110) mg/dL POC Glucose (mg/dL) 367 H (70-110) mg/dL Calcium (8.7-10.3) mg/dL Alkaline Phosphatase (41-126) U/L Total Protein (6.2-8.2) g/dL Albumin (3.8-4.9) g/dL Albumin/Globulin Ratio (1.60-3.17) Ratio
[2024-05-11] MEDS: FUROSEMIDE 10 MG/ML 4 ML VIAL IV SCH (10:51)
--- NOTE | 2024-05-11 12:01 | P.PN ---
Subjective Progress Note Date: 05/11/24 This is a 59-year-old male patient with a history of obstructive sleep apnea maintained on CPAP, mild intermittent chronic bronchial asthma, lifelong non- smoker, hypertension, hyperlipidemia, diabetes mellitus, diabetic neuropathy, chronic kidney disease stage II, Black artery disease with previous stents and subsequent bypass grafting surgery. He presented here back on May 05, 2024 with complaints of shortness of breath, cough and congestion for 3 days prior. Chest x-ray revealed cardiomegaly with new small bilateral pleural effusions. White count 14.9. Hemoglobin 13.5. Platelets 187. Sodium 140. Potassium 4.3. Bicarb 23. BUN 67. Creatinine 2.1. Glucose 267. Follow-up chest x-ray rev ealed mild cardiomegaly with improved aeration of the lungs. He is seen this morning in consultation on the regular medical floor. He is awake and alert in no acute distress. He was still having issues with dry nonproductive cough. No fever or chills. Maintaining good O2 saturations in the mid 90s on room air. Hemodynamically stable. The patient is seen today May 10, 2024 in follow-up on the regular medical floor. He is currently sitting up at the bedside. Awake and alert in no acute distress. Much less cough and congestion today compared to yesterday. He is maintaining good O2 saturations in the 90s on room air. Ultrasound of the kidneys revealed no evidence of hydronephrosis. White count 15.1. Hemoglobin 12.6. Platelets 178. Sodium 141. Potassium 3.4. Bicarb 25. BUN 75. Creatinine 2.0. Glucose 239. He remains on DuoNeb inhalations, Symbicort, Decadron. Anticoagulated with Eliquis. Remains on Lantus and Humalog sliding scale. Remains on diuretics. The patient is seen today May 11, 2024 in follow-up on the regular medical floor. He is currently awake and alert in no acute distress. Sitting up at the bedside. Denies any worsening shortness of breath, cough or congestion. He is maintaining good O2 saturations in the 90s on room air. He is afebrile. Hemodynamically stable. He is continued on DuoNeb inhalations, Symbicort, Solu- Medrol. Anticoagulated with Eliquis. Remains on Tessalon Perles for his cough. Remains on IV diuretics. Continues to diurese well. White count 13.9. Hemoglobin 13.5. Platelets 180. Sodium 140. Potassium 3.3. Bicarb 25. BUN 88. Creatinine 2.2. Glucose 393. Objective - Vital Signs Vital signs: Vital Signs Temp 97.5 F L 05/11/24 07:00 Pulse 78 05/11/24 11:48 Resp 18 05/11/24 08:57 BP 138/75 05/11/24 07:00 Pulse Ox 92 L 05/11/24 07:00 FiO2 Intake & Output 05/10/24 05/11/24 05/11/24 18:59 06:59 18:59 Output Total 3200 1750 900 Balance -3200 -1750 -900 Weight 82.6 kg Output: Urine 3200 1750 900 Other: Voiding Method Urinal Urinal - Exam GENERAL EXAM: Alert, 59-year-old male, on room air, comfortable in no apparent distress. HEAD: Normocephalic. EYES: Normal reaction of pupils, equal size. NOSE: Clear with pink turbinates. THROAT: No erythema or exudates. NECK: No masses, no JVD. CHEST: No chest wall deformity. LUNGS: Equal air entry with faint end expiratory wheeze, few scattered rhonchi. CVS: S1 and S2 normal with no audible murmur, regular rhythm. ABDOMEN: No hepatosplenomegaly, normal bowel sounds, no guarding or rigidity. SPINE: No scoliosis or deformity SKIN: No rashes CENTRAL NERVOUS SYSTEM: No focal deficits, tone is normal in all 4 extremities. EXTREMITIES: There is no peripheral edema. No clubbing, no cyanosis. Peripheral pulses are intact. - Labs CBC & Chem 7: 05/11/24 04:40 05/11/24 04:40 Labs: Abnormal Lab Results - Last 24 Hours (Table) 05/10/24 05/10/24 05/10/24 Range/Units 12:14 17:14 20:22 WBC (4.50-10.00) X 10*3/uL MCV (80.0-97.0) FL MCH (27.0-32.0) pg RDW (11.5-14.5) % Immature Gran # (0.00-0.04) X 10*3/uL Neutrophils # (1.80-7.70) X 10*3/uL Lymphocytes # (0.90-5.00) X 10*3/uL Eosinophils # (0.04-0.35) X 10*3/uL Potassium (3.5-5.5) mmol/L Anion Gap (4.00-12.00) mmol/L BUN (9.0-27.0) mg/dL Creatinine (0.6-1.5) mg/dL Est GFR (CKD-EPI) (>=60) BUN/Creatinine Ratio (12.00-20.00) Ratio Glucose (70-110) mg/dL POC Glucose (mg/dL) 341 H 320 H 335 H (70-110) mg/dL Calcium (8.7-10.3) mg/dL Alkaline Phosphatase (41-126) U/L Total Protein (6.2-8.2) g/dL Albumin (3.8-4.9) g/dL Albumin/Globulin Ratio (1.60-3.17) Ratio 05/11/24 05/11/24 05/11/24 Range/Units 04:40 04:40 05:43 WBC 13.95 H (4.50-10.00) X 10*3/uL MCV 78.9 L (80.0-97.0) FL MCH 25.9 L (27.0-32.0) pg RDW 15.9 H (11.5-14.5) % Immature Gran # 0.13 H (0.00-0.04) X 10*3/uL Neutrophils # 13.01 H (1.80-7.70) X 10*3/uL Lymphocytes # 0.47 L (0.90-5.00) X 10*3/uL Eosinophils # 0 L (0.04-0.35) X 10*3/uL Potassium 3.3 L (3.5-5.5) mmol/L Anion Gap 16.60 H (4.00-12.00) mmol/L BUN 88.8 H (9.0-27.0) mg/dL Creatinine 2.2 H (0.6-1.5) mg/dL Est GFR (CKD-EPI) 33 L (>=60) BUN/Creatinine Ratio 40.36 H (12.00-20.00) Ratio Glucose 393 H (70-110) mg/dL POC Glucose (mg/dL) 367 H (70-110) mg/dL Calcium 8.1 L (8.7-10.3) mg/dL Alkaline Phosphatase 141 H (41-126) U/L Total Protein 5.9 L (6.2-8.2) g/dL Albumin 3.3 L (3.8-4.9) g/dL Albumin/Globulin Ratio 1.27 L (1.60-3.17) Ratio Assessment and Plan Assessment: Acute exacerbation of mild intermittent chronic bronchial asthma versus post infectious cough syndrome, possible acid reflux Acute exacerbation of chronic systolic congestive heart failure with ejection fraction 40 to 45% Acute kidney injury secondary to suspected cardiorenal syndrome, diuretics Diabetes mellitus, type II Diabetic neuropathy Coronary artery disease with previous stents/coronary artery bypass grafting Ischemic cardiomyopathy Hyperlipidemia Hypertension History of congestive heart failure Lifelong non-smoker Plan: The patient was seen and evaluated Labs and medications reviewed Continue Symbicort and DuoNeb inhalations Discontinue Decadron Initiate a prednisone taper Currently stable and on room air oxygen Nephrology consult appreciated We will continue to follow I have personally seen and examined the patient, performed the documentation and the assessment and plan as written. Number of minutes spent on the visit: 10 Dictation was produced using [employer] dictation software. Please excuse any grammatical, word or spelling errors.
--- NOTE | 2024-05-11 12:08 | P.PN ---
Subjective Patient is seen for follow-up for acute kidney injury, cardiorenal associated with CHF exacerbation and volume overload. Currently being diuresed. Lasix has been switched back to IV. I discussed with cardiology for possibly starting dobutamine as patient states that he remains quite short of breath with significant lower extremity edema. Ejection fraction at 40 to 45%. Serum creatinine increased to 2.2 today. 24-hour urine output documented at 4.9 L. Zaroxolyn was added yesterday and discontinued today. Objective - Vital Signs Vital signs: Vital Signs Temp 97.5 F L 05/11/24 07:00 Pulse 70 05/11/24 12:00 Resp 18 05/11/24 08:57 BP 138/75 05/11/24 07:00 Pulse Ox 92 L 05/11/24 07:00 FiO2 Intake & Output 05/10/24 05/11/24 05/11/24 18:59 06:59 18:59 Output Total 3200 1750 900 Balance -3200 -1750 -900 Weight 82.6 kg Output: Urine 3200 1750 900 Other: Voiding Method Urinal Urinal - Exam Patient is awake, comfortable, no acute distress Examination of the heart S1 and S2 Examination of the lungs bilateral breath sounds are heard Abdomen is soft nontender Examination of lower extremity shows edema 2+ bilaterally [employer] exam grossly intact - Labs CBC & Chem 7: 05/11/24 04:40 05/11/24 04:40 Labs: Abnormal Lab Results - Last 24 Hours (Table) 05/10/24 05/10/24 05/10/24 Range/Units 12:14 17:14 20:22 WBC (4.50-10.00) X 10*3/uL MCV (80.0-97.0) FL MCH (27.0-32.0) pg RDW (11.5-14.5) % Immature Gran # (0.00-0.04) X 10*3/uL Neutrophils # (1.80-7.70) X 10*3/uL Lymphocytes # (0.90-5.00) X 10*3/uL Eosinophils # (0.04-0.35) X 10*3/uL Potassium (3.5-5.5) mmol/L Anion Gap (4.00-12.00) mmol/L BUN (9.0-27.0) mg/dL Creatinine (0.6-1.5) mg/dL Est GFR (CKD-EPI) (>=60) BUN/Creatinine Ratio (12.00-20.00) Ratio Glucose (70-110) mg/dL POC Glucose (mg/dL) 341 H 320 H 335 H (70-110) mg/dL Calcium (8.7-10.3) mg/dL Alkaline Phosphatase (41-126) U/L Total Protein (6.2-8.2) g/dL Albumin (3.8-4.9) g/dL Albumin/Globulin Ratio (1.60-3.17) Ratio 05/11/24 05/11/24 05/11/24 Range/Units 04:40 04:40 05:43 WBC 13.95 H (4.50-10.00) X 10*3/uL MCV 78.9 L (80.0-97.0) FL MCH 25.9 L (27.0-32.0) pg RDW 15.9 H (11.5-14.5) % Immature Gran # 0.13 H (0.00-0.04) X 10*3/uL Neutrophils # 13.01 H (1.80-7.70) X 10*3/uL Lymphocytes # 0.47 L (0.90-5.00) X 10*3/uL Eosinophils # 0 L (0.04-0.35) X 10*3/uL Potassium 3.3 L (3.5-5.5) mmol/L Anion Gap 16.60 H (4.00-12.00) mmol/L BUN 88.8 H (9.0-27.0) mg/dL Creatinine 2.2 H (0.6-1.5) mg/dL Est GFR (CKD-EPI) 33 L (>=60) BUN/Creatinine Ratio 40.36 H (12.00-20.00) Ratio Glucose 393 H (70-110) mg/dL POC Glucose (mg/dL) 367 H (70-110) mg/dL Calcium 8.1 L (8.7-10.3) mg/dL Alkaline Phosphatase 141 H (41-126) U/L Total Protein 5.9 L (6.2-8.2) g/dL Albumin 3.3 L (3.8-4.9) g/dL Albumin/Globulin Ratio 1.27 L (1.60-3.17) Ratio Assessment and Plan Assessment: 1. Acute kidney injury, cardiorenal, rule out urine retention. No significant hypotension noted. Currently off of angiotensin receptor blockers. Check UA. No evidence of obstruction noted. Consider inotropic agents if no improvement in volume status. 2. Acute on chronic CHF with reduced EF of 40 to 45% on echocardiogram 3. Volume overload, likely worsened with use of steroids 4. Hypokalemia secondary to diuretics 5. Type 2 diabetes maintained on insulin 6. Chronic A-fib Plan: Change Lasix to IV Discussed with cardiology regarding dobutamine. Replace potassium Continue off of Cozaar Accurate I's and O's
[2024-05-11 12:40] LABS: Glucose,Whole Blood 407 mg/dL (70-110)
[2024-05-11] MEDS: POTASSIUM CHLORIDE ER 20 MEQ TAB.ER PO STA (13:06)
[2024-05-11 13:42] LABS: Appearance,Urine Clear (Clear); Bilirubin,Urine Negative (Negative); Blood,Urine Negative (Negative); Color,Urine Colorless; Glucose,Urine (UA) 4+ (Negative); Ketones,Urine Negative (Negative); Leukocyte Esterase,Urine Negative (Negative); Nitrite,Urine Negative (Negative); Protein,Urine Negative (Negative); Specific Gravity,Urine 1.007 (1.001-1.035); Urobilinogen,Urine <2.0 mg/dL (<2.0)
[2024-05-11 17:21] LABS: Glucose,Whole Blood 276 mg/dL (70-110)
[2024-05-11] MEDS: INSULIN LISPRO (HumaLOG) 100 UNIT/ML 10 mL VL SQ SCH (17:50)
--- NOTE | 2024-05-11 18:19 | P.PN ---
Subjective Progress Note Date: 05/11/24 HISTORY OF PRESENT ILLNESS: This is a 59-year-old male patient of rosita and Dr. Ga with past medical history of coronary artery disease status post 6 vessel CABG 2006 with MAE to LAD, saphenous venous graft to the PDA, saphenous venous graft to the obtuse marginal one, radial artery to the obtuse marginal branch 2 and saphenous venous graft to the obtuse marginal 3 followed by heart catheterization with PCI and stent of the saphenous venous graft to the RCA in 2015 at which time he pres ented with non-ST elevated myocardial infarction. Most recent cardiac catheterization was performed on 04/10/2022 which revealed severe triple-vessel coronary artery disease with a patent ramus intermediate, patent SVG to the OM, patent MAE to the LAD, and occluded saphenous vein graft to the RCA which is chronic from before. Medical therapy was advised at that time. History of hypertension, hypertensive cardiovascular disease with left ventricular hypertrophy, hyperlipidemia, ischemic cardiomyopathy, paroxysmal atrial fibrillation, currently on Eliquis, diabetes mellitus type 2 with diabetic polyneuropathy, hyperlipidemia, asthma, obstructive sleep apnea on CPAP, chronic low back pain, DVT in the past, patient was recently hospitalized at [facility] between 06/05/2023 and discharged 06/15/2023 after he was admitted for GI bleed due to esophageal ulcer. Patient had EGD and incomplete colonoscopy due to poor prep at that time. Patient presented to the ER at [facility] due to increased cough and increased shortness of breath, was complaining of increased edema in both legs and ws seen by Isaiah Pena and PCR was negative for COVID-19. Influenza A, B annd RSV, CXR showed evidence of CHF with bilateral pleural effusion, with elevated BNP, was started on Furosemide 40 mg IVP q 8 h and was admitted to the hospital for acute on chronic systolic heart failure 05/06: Patient sitting up in bed in no apparent distress, he is feeling better today, he denies any chest pain, shortness of breath, he continues to have a significant coughing, no phlegm production, he continues to complain of pleurisy in his chest, I will start the patient on Solu-Medrol 40 mg a push every 8 ho Pio bianchioNeb 3 nebulization 4 times every day, also Pulmicort 1 mg nebulization twice every day, follow-up with the patient very closely he swelling is a bit better today, his potassium is down we will start potassium supplement 20 mg orally twice every day, follow-up with the patient labs in the next 24 hours, continue current treatment plan, patient was seen in consultation by cardiology recommended to continue current treatment plan 05/07: Patient is feeling better today, he is having less coughing, no chest pain or shortness of breath, he continues to have minimal pleurisy, he has been star raquel on Solu-Medrol 40 mg IV push every 8 hours we will decrease that to every 12 hours, continue with Tessalon Perles 200 mg orally 3 times every day, continue with nebulized treatment in the form of DuoNeb and Pulmicort, hopefully patient will be able to be discharged home in the next 24 hours. Allergy has seen the patient, and they recommended to continue same treatment plan. I will decrease IV Lasix to 40 mg IV push every 12 hours 05/08: Patient sitting up in bed he is complaining of increased swelling in the right upper extremity more than the left upper extremity, continues to have swel ling both lower extremity, he switched to Lasix 40 mg orally twice every day, discontinued Solu-Medrol, start the patient on prednisone 40 mg once every day, continue Zithromax 500 mg once every day, chest x-ray was done showed improvement in the aeration of the lung, continue current treatment plan, keep the patient in the hospital 05/09: Patient is feeling a bit better today, he continues to have some swelling in both lower extremities, he denies any chest pain, less short of breath, he continues to have some cough, he was switched to Symbicort 160/4.5 mcg 2 puffs in elation twice every day he continues to be on DuoNeb treatment nebulization 4 times every day, oxygen support, was seen by cardiology yesterday recommended to continue Lasix 40 mg orally twice every day, monitor input and output and daily weight, increase activity, follow-up with the patient very closely, his kidney function just appears to be worse, he was started on Zaroxolyn 2.5 mg orally today I will discontinue Farxiga, discontinue losartan, monitor the patient blood pressure very closely, ultrasound of the kidneys will be done, nephrology consultation Dr. Pope pulmonary consultation was obtained from Dr. Allen as well. 05/10: Patient is laying down in bed not feeling well at all, he continues to have significant edema in both upper and lower extremities, continue Lasix 40 mg orally twice every day, he was seen in consultation by nephrology who recommended to have a bladder scan since the patient I believe he is retaining urine, even though the ultrasound did not show evidence of any hydronephrosis at this time, there is a lesion in the kidney that need to be evaluated as an outpatient, we will discuss with cardiology and nephrology the possibility of starting the patient on dobutamine drip at this time, to try to improve his cardiac output, to increase his kidney perfusion, keep the patient off losartan, keep the patient off Farxiga for now, monitor the patient input and output and daily weight, avoid nephrotoxins. 05/11: Patient is sitting at the edge of the bed, he is feeling better today, he was taken off dexamethasone since his blood glucose level is all the way up to 400, he was maintained on DuoNeb, as well as Symbicort, he feels a bit better today, he is urinating well, his BUN is still elevated, his creatinine is up to 2.2, he has been on frusemide 40 mg orally twice every day Zaroxolyn 2.5 mg orally once every day will continue with that, follow-up with the patient very closely, nephrology/cardiology/pulmonary medicine is following, patient will be off losartan Farxiga and metformin for now, repeat labs tomorrow morning. REVIEW OF SYSTEMS: Constitutional: No documented fever, no chills, no night sweats. No weight change. Positive for weakness, positive for fatigue, no lethargy. No daytime sleepiness. HEENT: No headache. No blurred vision or double vision, no loss of vision. No loss of Hearing, no ringing in the ears, no dizziness. No nasal drainage or con gestion. No epistaxis. No sore throat. Lungs: positive for shortness of breath, occasional cough, minimal sputum production. no wheezing. Reports dyspnea with activity. Cardiovascular: no chest pain, positive for lower extremity edema. No palpitations. No paroxysmal nocturnal dyspnea. No orthopnea. positive for lightheadedness or dizziness. No syncopal episodes. Abdominal: Reports no abdominal pain. no nausea, vomiting. No diarrhea. No constipation. No bloody or tarry stools reports loss of appetite. Genitourinary: No dysuria, increased frequency, urgency. No urinary retention. Musculoskeletal: No myalgias. positive for muscle weakness, no gait dysfunction, frequent falls. No back pain. No neck pain. Integumentary: scabbed wounds to left caballero , no lesions. No rash or pruritus. No unusual bruising. No change in hair or nails. Neurologic: No aphasia. Minimal facial droop. No change in mentation. No head injury. No headache, minimal drift. Psychiatric: positive for depression. No anxiety. No mood swings. Endocrine: abnormal blood sugars. No weight change. PHYSICAL EXAMINATION: General: 59-year-old male laying down in mild respiratory distress. HEENT: Head is atraumatic, normocephalic, pupils were equal round reactive to light and recommendation, extraocular muscle movement were intact, sclera nonicteric, conjunctivae were pale, mucous membranes of the mouth are somewhat dry. Neck: Supple, no JVP, normal carotid upstroke bilaterally, no lymphadenopathy. Chest: Decreased breath sounds at the bases, few rhonchi positive for expirratory wheezes,, no chest wall tenderness, no intercostal retractions. Heart: First heart sound is normal, second heart sounds normal, there is systolic ejection murmur 2/6 located in the left sternal border. Abdomen: Soft, nontender, nondistended, positive bowel sounds, there is no hepatosplenomegaly Extremities: There is +2 edema no calf tenderness DP +1 bilaterally. Neurologic examination: Patient is awake alert and oriented X 3, cranial nerves II-12 appear grossly intact, muscle power were 4 out of 5 in upper extremities and 4 out of 5 in bilateral lower extremities, deep tendon reflexes normal b ilaterally. Minimal right facial droop, and right leg weakness. ASSESSMENT AND PLAN: 1. Acute on chronic systolic heart failure . Continue patient on Lasix 40 mg orally twice every day, continue Zaroxolyn 2.5 mg orally once every day, continue to monitor input and output and daily weight cardiology and nephrology consultation appreciated. 2. Hyponatremia due to hypervolemia. Resolved. 3. Possible asthma/chronic bronchitis with mild exacerbation patient was seen in consultation by pulm medicine who recommended the same treatment plan, patient was taken off dexamethasone, continue Symbicort continue DuoNeb continue oxygen support as needed. 4. Acute kidney injury due to vasomotor nephropathy and aggressive diuresis with ATN. Reviewed ultrasound of the kidney that showed evidence of no hydronephrosis, but there was a renal lesion that will be followed as an outpatient. 5. Hypertension and hypertensive cardiovascular disease. Off losartan, continue patient on Carvedilol 25 mg orally twice every day, continue Amlodipine 5 mg po daily, continue with Hydralazine as well and monitor BP very closely. 6. Diabetes mellitus type 2 with steroid-induced hyperglycemia. we will maintain patient on Lantus 30 units at bedtime along with a sliding scale insulin, we will continue with Humalog 12 units before each meal, continue off Farxiga, along with a sliding scale insulin. 7. Coronary artery disease status post CABG 6 as well as PCI in the past. Continue patient on ASA 81 mg once every day, Carvedilol 25 mg orally twice every day, continue patient on atorvastatin 80 mg orally once every day, continue Zetia 10 mg orally once every day. 8. Hyperlipidemia. Continue patient on atorvastatin 80 mg once every day, continue Zetia 10 mg orally once every day, monitor lipid panel, keep LDL 55-70. 9. Diabetic polyneuropathy. Continue patient on gabapentin decrease the dose to 300 mg mg orally 2 times every day. 10. Obstructive sleep apnea. Patient does have a CPAP at home. 11. Chronic systolic heart failure. Continue with Furosemide 40 mg orally q 12 h , Carvedilol 25 mg po bid continue off Farxiga for now due to acute kidney injury. 12. Paroxysmal atrial fibrillation . Continue patient on Coreg 25 mg orally twice every day, Eliquis 5 mg po bid. 13. DVT prophylaxis. Continue Eliquis 5 mg orally twice every day. 14. GI prophylaxis. Continue Protonix 40 mg orally bid 15. History of CVA in the past recovered well, we will continue with Ator vastatin 80 mg po daily and Eliquis for life 16. Hypokalemia status post replacement. 17. further recommendations to follow the programmer analyst consultant recommendations. Objective - Vital Signs Vital signs: Vital Signs Temp 97.3 F L 05/11/24 12:26 Pulse 70 05/11/24 12:26 Resp 17 05/11/24 12:26 BP 125/64 05/11/24 12:26 Pulse Ox 94 L 05/11/24 12:26 FiO2 Intake & Output 05/10/24 05/11/24 05/11/24 18:59 06:59 18:59 Output Total 3200 1750 900 Balance -3200 -1750 -900 Weight 82.6 kg Output: Urine 3200 1750 900 Other: Voiding Method Urinal Urinal - Labs CBC & Chem 7: 05/11/24 04:40 05/11/24 04:40 Labs: Abnormal Lab Results - Last 24 Hours (Table) 05/10/24 05/10/24 05/11/24 Range/Units 17:14 20:22 04:40 WBC (4.50-10.00) X 10*3/uL MCV (80.0-97.0) FL MCH (27.0-32.0) pg RDW (11.5-14.5) % Immature Gran # (0.00-0.04) X 10*3/uL Neutrophils # (1.80-7.70) X 10*3/uL Lymphocytes # (0.90-5.00) X 10*3/uL Eosinophils # (0.04-0.35) X 10*3/uL Potassium 3.3 L (3.5-5.5) mmol/L Anion Gap 16.60 H (4.00-12.00) mmol/L BUN 88.8 H (9.0-27.0) mg/dL Creatinine 2.2 H (0.6-1.5) mg/dL Est GFR (CKD-EPI) 33 L (>=60) BUN/Creatinine Ratio 40.36 H (12.00-20.00) Ratio Glucose 393 H (70-110) mg/dL POC Glucose (mg/dL) 320 H 335 H (70-110) mg/dL Calcium 8.1 L (8.7-10.3) mg/dL Alkaline Phosphatase 141 H (41-126) U/L Total Protein 5.9 L (6.2-8.2) g/dL Albumin 3.3 L (3.8-4.9) g/dL Albumin/Globulin Ratio 1.27 L (1.60-3.17) Ratio 05/11/24 05/11/24 05/11/24 Range/Units 04:40 05:43 12:38 WBC 13.95 H (4.50-10.00) X 10*3/uL MCV 78.9 L (80.0-97.0) FL MCH 25.9 L (27.0-32.0) pg RDW 15.9 H (11.5-14.5) % Immature Gran # 0.13 H (0.00-0.04) X 10*3/uL Neutrophils # 13.01 H (1.80-7.70) X 10*3/uL Lymphocytes # 0.47 L (0.90-5.00) X 10*3/uL Eosinophils # 0 L (0.04-0.35) X 10*3/uL Potassium (3.5-5.5) mmol/L Anion Gap (4.00-12.00) mmol/L BUN (9.0-27.0) mg/dL Creatinine (0.6-1.5) mg/dL Est GFR (CKD-EPI) (>=60) BUN/Creatinine Ratio (12.00-20.00) Ratio Glucose (70-110) mg/dL POC Glucose (mg/dL) 367 H 407 H (70-110) mg/dL Calcium (8.7-10.3) mg/dL Alkaline Phosphatase (41-126) U/L Total Protein (6.2-8.2) g/dL Albumin (3.8-4.9) g/dL Albumin/Globulin Ratio (1.60-3.17) Ratio
[2024-05-11 20:16] LABS: Glucose,Whole Blood 316 mg/dL (70-110)
[2024-05-12 06:06] LABS: Glucose,Whole Blood 439 mg/dL (70-110)
[2024-05-12 08:08] LABS: Basophils # (A) 0.02 X 10*3/uL (0.00-0.10); Basophils % (A) 0.1 %; Eosinophils # (A) 0 X 10*3/uL (0.04-0.35); Eosinophils % (A) 0 %; HCT 44.1 % (39.6-50.0); HGB 14.3 g/dL (13.0-17.0); Lymphocytes # (A) 0.59 X 10*3/uL (0.90-5.00); Lymphocytes % (A) 3.4 %; MCH 25.5 pg (27.0-32.0); MCHC 32.4 g/dL (32.0-37.0); MCV 78.8 FL (80.0-97.0); Mean Platelet Volume 11.9 FL (9.5-12.2); Monocytes # (A) 1.02 X 10*3/uL (0.20-1.00); Monocytes % (A) 5.9 %; NRBC Per 100 WBC 0 X 10*3/uL (0.00-0.01); Neutrophils # (A) 15.45 X 10*3/uL (1.80-7.70); Neutrophils % (A) 89.8 %; Platelet Count 223 X 10*3/uL (140-440); RDW 15.6 % (11.5-14.5); WBC 17.21 X 10*3/uL (4.50-10.00)
[2024-05-12] MEDS: INSULIN LISPRO (HumaLOG) 100 UNIT/ML 10 mL VL SQ SCH (08:39)
[2024-05-12] MEDS: predniSONE 20 MG TAB PO SCH (08:57)
[2024-05-12] MEDS ORDERED: predniSONE 10 MG TAB PO SCH (09:00)
[2024-05-12] MEDS: PANTOPRAZOLE 40 MG TABLET PO SCH (10:16)
[2024-05-12 10:35] LABS: ALT 41 U/L (10-49); AST 33 U/L (14-35); Albumin 3.3 g/dL (3.8-4.9); Albumin/Globulin Ratio 1.38 Ratio (1.60-3.17); Alkaline Phosphatase 169 U/L (41-126); BUN/Creat Ratio 43.64 Ratio (12.00-20.00); Carbon Dioxide 26.5 mmol/L (21.6-31.8); Chloride 94 mmol/L (96-109); Globulin 2.4 g/dL (1.6-3.3); Glucose 490 mg/dL (70-110); Potassium 3.3 mmol/L (3.5-5.5); Sodium 138 mmol/L (135-145); Total Bilirubin 0.7 mg/dL (0.3-1.2); Total Protein 5.7 g/dL (6.2-8.2)
[2024-05-12 12:14] LABS: Glucose,Whole Blood >600 mg/dL (70-110)
[2024-05-12 12:15] LABS: Glucose,Whole Blood >600 mg/dL (70-110)
--- NOTE | 2024-05-12 12:45 | P.PN ---
Subjective Progress Note Date: 05/12/24 HISTORY OF PRESENT ILLNESS: This is a 59-year-old male with a past medical history significant for coronary artery disease with previous CABG and stenting, hypertension, hyperlipidemia, diabetes, CVA, atrial fibrillation, and GI bleed. Patient follows in the office with Dr. Ga. We have been asked to see the patient in consultation for CHF. Patient examined at the bedside. Patient presented to the hospital for chief complaint of shortness of breath. Patient states for the past 3 to 4 days he h as been progressively getting more short of breath at home. He also reports having a frequent cough. He denies any fever or sick contacts. DIAGNOSTICS: - EKG reveals atrial fibrillation with controlled ventricular rate - Chest xray cardiomegaly with new small bilateral pleural effusions. Findings concerning for CHF exacerbation/fluid overload state. - Laboratory data: WBC 7.8. Hemoglobin 13.4. Platelet count 175. Sodium 143. Potassium 3.3. BUN 25. Creatinine 1.4. Troponin negative x 1. proBNP 6130. - Current home cardiac medications include hydralazine 25 mg 3 times daily, carvedilol 25 mg twice a day, amlodipine 5 mg daily, losartan 100 mg daily, Lasix 40 mg twice a day, Zetia 10 mg daily, Farxiga 10 mg daily, Lipitor 80 mg daily, and Eliquis 5 mg twice a day. - Most recent echocardiogram obtained in May 2023 revealed ejection fraction 40 to 45%, severe pulmonary hypertension, moderate posteriorly directed mitral regurgitation and severe tricuspid regurgitation - Cardiac catheterization history: March 2022 revealing severe triple-vessel disease. Patent stented segment in the ramus intermedius and proximal left circumflex. Patent MAE to LAD. Patent SVG to OM. Chronically occluded SVG to RCA and diagonal branch. No significant progression of disease since 2019. Medical management was recommended. 05/07/2024 Patient examined this morning at the bedside. Patient currently denies chest pain or pressure. He continues to report shortness of breath with a frequent cough. He remains on IV Lasix every 8 hours. Creatinine today 1.8. 2D echo remains pending. 05/08 Patient seen and examined. No complaints of chest pain or chest pressure. He has been on IV Lasix transition to oral this morning. Blood pressure 152/84, heart rate 62, pulse ox 99% on room air. RUBENS and weights do not appear to be accurate. Repeat blood work reveals WBC 17, hemoglobin 13.5, BUN 48 creatinine 1.9. Repeat chest x-ray reveals mild cardiomegaly. Improved aeration of the lungs. Echocardiogram is pending. 05/09 Patient seen and examined. Patient has a continuous cough this morning. He is very angry because he is not feeling better from when he came into the hospital. Yesterday, patient's IV Lasix was transitioned to oral due to worsening renal function. Today, BUN 66 and creatinine 2.1. Echocardiogram performed in the office on 04/19/2024: EF 45 to 50% with global LV hypokinesis without regional heterogeneity. There is mild left ventricular hypertrophy. Aortic valve is calcified. Moderate to severe mitral regurgitation, moderate tricuspid regurgitation. PASP 88 mmHg. Mild to moderate pulmonic regurgitation. 05/10 Patient seen and examined. Patient states he is feeling still the same from yesterday. It is noted he is having less coughing from yesterday. Patient has been seen by pulmonary medicine and started on IV Decadron. Blood pressure 13 2/64, heart rate 66, pulse ox 96% on room air. Repeat blood work reveals WBC 15, hemoglobin 12.6, BUN 75 creatinine 2. A consult was added for nephrology acute kidney injury. 05/11 Patient is seen and examined. Lung sounds are improving but patient continues to feel short of breath with coughing. He remains on Decadron IV. Repeat blood work reveals BUN 88 and creatinine 2.2. Will plan to discontinue Zaroxolyn. 05/12 Patient seen and examined. Yesterday we discontinued Zaroxolyn. Nephrology has added and Lasix 40 mg twice daily IV. Blood pressure 142/74, heart rate 65, pulse ox 97% on room air. Repeat blood work reveals BUN 96 creatinine 2.2, WBC 17.6, hemoglobin 14.3, potassium 3.3. PHYSICAL EXAM: VITAL SIGNS: Reviewed. GENERAL: Well-developed in no acute distress. HEENT: Head is normocephalic. Pupils are equal, round. Sclerae anicteric. Mucous membranes of the mouth are moist. Neck supple. No JVD or thyromegaly LUNGS: Respirations even and unlabored. Lungs clear to auscultation. HEART: Irregular rate and rhythm. S1 and S2 heard. ABDOMEN: Soft. Nondistended. Nontender. EXTREMITIES: No clubbing or cyanosis. Peripheral pulses intact. 1+ bilateral lower extremity edema noted NEUROLOGIC: Awake and alert. Oriented x 3. ASSESSMENT: Shortness of breath Acute on chronic heart failure with reduced EF, 40 to 45% Coronary artery disease with previous three-vessel CABG and known chronically occluded SVG to RCA and diagonal branch Ischemic cardiomyopathy Persistent atrial fibrillation with controlled ventricular rate Hypertension Hyperlipidemia Diabetes CVA History of GI bleed Acute kidney injury, nephrology on consult Severe pulmonary hypertension Valvular heart disease with moderate to severe mitral regurgitation, moderate tricuspid regurgitation, mild to moderate pulmonic regurgitation PLAN: Continue cardiac medications including amlodipine, Eliquis, atorvastatin, carvedilol, Zetia, hydralazine Patient is off Farxiga, losartan IV Lasix 40 mg every 12 hours per nephrology Continue Zaroxolyn 2.5 mg daily Daily weights, accurate intake and output, monitoring of kidney function Patient is also followed by pulmonary medicine. Nurse practitioner note has been reviewed by physician. Signing provider agrees with the documented findings, assessment, and plan of care documented by OBSTETRICAL ANESTHESIOLOGIST as a scribe. Objective - Vital Signs Vital signs: Vital Signs Temp 97.6 F 05/12/24 07:43 Pulse 69 05/12/24 11:43 Resp 16 05/12/24 07:43 BP 142/74 05/12/24 07:43 Pulse Ox 97 05/12/24 07:43 FiO2 Intake & Output 05/11/24 05/12/24 05/12/24 18:59 06:59 18:59 Intake Total 221 1220 480 Output Total 2200 1800 900 Balance -1978 -580 -420 Weight 83.7 kg Intake: Oral 221 1220 480 Output: Urine 2200 1800 900 Other: Voiding Method Urinal Toilet Urinal - Labs CBC & Chem 7: 05/12/24 05:43 05/12/24 05:43 Labs: Abnormal Lab Results - Last 24 Hours (Table) 05/11/24 05/11/24 05/11/24 Range/Units 12:38 13:10 17:20 WBC (4.50-10.00) X 10*3/uL MCV (80.0-97.0) FL MCH (27.0-32.0) pg RDW (11.5-14.5) % Immature Gran # (0.00-0.04) X 10*3/uL Neutrophils # (1.80-7.70) X 10*3/uL Lymphocytes # (0.90-5.00) X 10*3/uL Monocytes # (0.20-1.00) X 10*3/uL Eosinophils # (0.04-0.35) X 10*3/uL Potassium (3.5-5.5) mmol/L Chloride (96-109) mmol/L Anion Gap (4.00-12.00) mmol/L BUN (9.0-27.0) mg/dL Creatinine (0.6-1.5) mg/dL Est GFR (CKD-EPI) (>=60) BUN/Creatinine Ratio (12.00-20.00) Ratio Glucose (70-110) mg/dL POC Glucose (mg/dL) 407 H 276 H (70-110) mg/dL Calcium (8.7-10.3) mg/dL Alkaline Phosphatase (41-126) U/L Total Protein (6.2-8.2) g/dL Albumin (3.8-4.9) g/dL Albumin/Globulin Ratio (1.60-3.17) Ratio Urine Glucose (UA) 4+ H (Negative) 05/11/24 05/12/24 05/12/24 Range/Units 20:15 05:43 05:43 WBC 17.21 H (4.50-10.00) X 10*3/uL MCV 78.8 L (80.0-97.0) FL MCH 25.5 L (27.0-32.0) pg RDW 15.6 H (11.5-14.5) % Immature Gran # 0.13 H (0.00-0.04) X 10*3/uL Neutrophils # 15.45 H (1.80-7.70) X 10*3/uL Lymphocytes # 0.59 L (0.90-5.00) X 10*3/uL Monocytes # 1.02 H (0.20-1.00) X 10*3/uL Eosinophils # 0 L (0.04-0.35) X 10*3/uL Potassium 3.3 L (3.5-5.5) mmol/L Chloride 94 L (96-109) mmol/L Anion Gap 17.50 H (4.00-12.00) mmol/L BUN 96.0 H (9.0-27.0) mg/dL Creatinine 2.2 H (0.6-1.5) mg/dL Est GFR (CKD-EPI) 33 L (>=60) BUN/Creatinine Ratio 43.64 H (12.00-20.00) Ratio Glucose 490 H (70-110) mg/dL POC Glucose (mg/dL) 316 H (70-110) mg/dL Calcium 8.0 L (8.7-10.3) mg/dL Alkaline Phosphatase 169 H (41-126) U/L Total Protein 5.7 L (6.2-8.2) g/dL Albumin 3.3 L (3.8-4.9) g/dL Albumin/Globulin Ratio 1.38 L (1.60-3.17) Ratio Urine Glucose (UA) (Negative) 05/12/24 05/12/24 05/12/24 Range/Units 06:05 12:13 12:14 WBC (4.50-10.00) X 10*3/uL MCV (80.0-97.0) FL MCH (27.0-32.0) pg RDW (11.5-14.5) % Immature Gran # (0.00-0.04) X 10*3/uL Neutrophils # (1.80-7.70) X 10*3/uL Lymphocytes # (0.90-5.00) X 10*3/uL Monocytes # (0.20-1.00) X 10*3/uL Eosinophils # (0.04-0.35) X 10*3/uL Potassium (3.5-5.5) mmol/L Chloride (96-109) mmol/L Anion Gap (4.00-12.00) mmol/L BUN (9.0-27.0) mg/dL Creatinine (0.6-1.5) mg/dL Est GFR (CKD-EPI) (>=60) BUN/Creatinine Ratio (12.00-20.00) Ratio Glucose (70-110) mg/dL POC Glucose (mg/dL) 439 H >600 H* >600 H* (70-110) mg/dL Calcium (8.7-10.3) mg/dL Alkaline Phosphatase (41-126) U/L Total Protein (6.2-8.2) g/dL Albumin (3.8-4.9) g/dL Albumin/Globulin Ratio (1.60-3.17) Ratio Urine Glucose (UA) (Negative)
--- NOTE | 2024-05-12 13:06 | CT ---
EXAMINATION TYPE: CT chest wo con DATE OF EXAM: 05/12/2024 COMPARISON: 03/13/2022 CLINICAL INDICATION: Male, 59 years old with history of Chronic cough; PHH, cough TECHNIQUE: CT scan of the thorax is performed without IV contrast. CT DLP: 418.[address] CTDI: mGy Automated exposure control for dose reduction was used. FINDINGS: LUNGS: Small right-sided pleural effusion with AP maximal measurement of 2 cm. Linear atelectasis mid right lung. No focal consolidation. No suspicious nodules. MEDIASTINUM : Lack of IV contrast is noted to limit evaluation for mediastinal and especially hilar a denopathy. There are no definitive greater than 1 cm hilar or mediastinal lymph nodes. No cardiomeg frandy or pericardial effusion is seen. HEART: The heart is enlarged.. No significant coronary artery calcifications. OTHER: No additional significant abnormality is seen. IMPRESSION: Small right-sided pleural effusion with AP maximal measurement of 2 cm. Linear atelectasi s mid right lung. No focal consolidation. Follow-up recommendations for incidental pulmonary nodules are per [employer] or [employer]. [facility], , 05/12/2024 1:04 PM
[2024-05-12] MEDS ORDERED: DEXTROSE 50% SYRINGE 50 ML IVP PRN ×2 (13:15)
--- NOTE | 2024-05-12 13:45 | P.PN ---
Subjective Progress Note Date: 05/12/24 This is a 59-year-old male patient with a history of obstructive sleep apnea maintained on CPAP, mild intermittent chronic bronchial asthma, lifelong non- smoker, hypertension, hyperlipidemia, diabetes mellitus, diabetic neuropathy, chronic kidney disease stage II, Black artery disease with previous stents and subsequent bypass grafting surgery. He presented here back on May 05, 2024 with complaints of shortness of breath, cough and congestion for 3 days prior. Chest x-ray revealed cardiomegaly with new small bilateral pleural effusions. White count 14.9. Hemoglobin 13.5. Platelets 187. Sodium 140. Potassium 4.3. Bicarb 23. BUN 67. Creatinine 2.1. Glucose 267. Follow-up chest x-ray rev ealed mild cardiomegaly with improved aeration of the lungs. He is seen this morning in consultation on the regular medical floor. He is awake and alert in no acute distress. He was still having issues with dry nonproductive cough. No fever or chills. Maintaining good O2 saturations in the mid 90s on room air. Hemodynamically stable. The patient is seen today May 10, 2024 in follow-up on the regular medical floor. He is currently sitting up at the bedside. Awake and alert in no acute distress. Much less cough and congestion today compared to yesterday. He is maintaining good O2 saturations in the 90s on room air. Ultrasound of the kidneys revealed no evidence of hydronephrosis. White count 15.1. Hemoglobin 12.6. Platelets 178. Sodium 141. Potassium 3.4. Bicarb 25. BUN 75. Creatinine 2.0. Glucose 239. He remains on DuoNeb inhalations, Symbicort, Decadron. Anticoagulated with Eliquis. Remains on Lantus and Humalog sliding scale. Remains on diuretics. The patient is seen today May 11, 2024 in follow-up on the regular medical floor. He is currently awake and alert in no acute distress. Sitting up at the bedside. Denies any worsening shortness of breath, cough or congestion. He is maintaining good O2 saturations in the 90s on room air. He is afebrile. Hemodynamically stable. He is continued on DuoNeb inhalations, Symbicort, Solu- Medrol. Anticoagulated with Eliquis. Remains on Tessalon Perles for his cough. Remains on IV diuretics. Continues to diurese well. White count 13.9. Hemoglobin 13.5. Platelets 180. Sodium 140. Potassium 3.3. Bicarb 25. BUN 88. Creatinine 2.2. Glucose 393. The patient is seen today May 12, 2024 in follow-up on the regular medical floor. He is currently resting in bed. Awake and alert in no acute distress. He denies any worsening shortness of breath, cough or congestion. He is maintaining good O2 saturations in the 90s on room air. He is continued on DuoNeb and elations, Symbicort, prednisone. He is anticoagulated with Eliquis. Remains on Lantus and Humalog sliding scale. Count 17.2. Hemoglobin 14.3. Platelets 223. Sodium 138. Potassium 3.3. Bicarb 27. BUN 96. Creatinine 2.2. Glucose 490. CT scan of the chest today revealed a small right sided pleural effusion. Linear atelectasis in the mid right lung. No focal consolidations. No suspicious nodules. No pneumothorax. Objective - Vital Signs Vital signs: Vital Signs Temp 97.6 F 05/12/24 07:43 Pulse 69 05/12/24 11:43 Resp 16 05/12/24 07:43 BP 142/74 05/12/24 07:43 Pulse Ox 97 05/12/24 07:43 FiO2 Intake & Output 05/11/24 05/12/24 05/12/24 18:59 06:59 18:59 Intake Total 221 1220 480 Output Total 2200 1800 900 Balance -1979 -580 -420 Weight 83.7 kg Intake: Oral 221 1220 480 Output: Urine 2200 1800 900 Other: Voiding Method Urinal Toilet Urinal - Exam GENERAL EXAM: Alert, 59-year-old male, on room air, comfortable in no apparent distress. HEAD: Normocephalic. EYES: Normal reaction of pupils, equal size. NOSE: Clear with pink turbinates. THROAT: No erythema or exudates. NECK: No masses, no JVD. CHEST: No chest wall deformity. LUNGS: Equal air entry with faint end expiratory wheeze. CVS: S1 and S2 normal with no audible murmur, regular rhythm. ABDOMEN: No hepatosplenomegaly, normal bowel sounds, no guarding or rigidity. SPINE: No scoliosis or deformity SKIN: No rashes CENTRAL NERVOUS SYSTEM: No focal deficits, tone is normal in all 4 extremities. EXTREMITIES: There is no peripheral edema. No clubbing, no cyanosis. Perip heral pulses are intact. - Labs CBC & Chem 7: 05/12/24 05:43 05/12/24 05:43 Labs: Abnormal Lab Results - Last 24 Hours (Table) 05/11/24 05/11/24 05/11/24 Range/Units 13:10 17:20 20:15 WBC (4.50-10.00) X 10*3/uL MCV (80.0-97.0) FL MCH (27.0-32.0) pg RDW (11.5-14.5) % Immature Gran # (0.00-0.04) X 10*3/uL Neutrophils # (1.80-7.70) X 10*3/uL Lymphocytes # (0.90-5.00) X 10*3/uL Monocytes # (0.20-1.00) X 10*3/uL Eosinophils # (0.04-0.35) X 10*3/uL Potassium (3.5-5.5) mmol/L Chloride (96-109) mmol/L Anion Gap (4.00-12.00) mmol/L BUN (9.0-27.0) mg/dL Creatinine (0.6-1.5) mg/dL Est GFR (CKD-EPI) (>=60) BUN/Creatinine Ratio (12.00-20.00) Ratio Glucose (70-110) mg/dL POC Glucose (mg/dL) 276 H 316 H (70-110) mg/dL Calcium (8.7-10.3) mg/dL Alkaline Phosphatase (41-126) U/L Total Protein (6.2-8.2) g/dL Albumin (3.8-4.9) g/dL Albumin/Globulin Ratio (1.60-3.17) Ratio Urine Glucose (UA) 4+ H (Negative) 05/12/24 05/12/24 05/12/24 Range/Units 05:43 05:43 06:05 WBC 17.21 H (4.50-10.00) X 10*3/uL MCV 78.8 L (80.0-97.0) FL MCH 25.5 L (27.0-32.0) pg RDW 15.6 H (11.5-14.5) % Immature Gran # 0.13 H (0.00-0.04) X 10*3/uL Neutrophils # 15.45 H (1.80-7.70) X 10*3/uL Lymphocytes # 0.59 L (0.90-5.00) X 10*3/uL Monocytes # 1.02 H (0.20-1.00) X 10*3/uL Eosinophils # 0 L (0.04-0.35) X 10*3/uL Potassium 3.3 L (3.5-5.5) mmol/L Chloride 94 L (96-109) mmol/L Anion Gap 17.50 H (4.00-12.00) mmol/L BUN 96.0 H (9.0-27.0) mg/dL Creatinine 2.2 H (0.6-1.5) mg/dL Est GFR (CKD-EPI) 33 L (>=60) BUN/Creatinine Ratio 43.64 H (12.00-20.00) Ratio Glucose 490 H (70-110) mg/dL POC Glucose (mg/dL) 439 H (70-110) mg/dL Calcium 8.0 L (8.7-10.3) mg/dL Alkaline Phosphatase 169 H (41-126) U/L Total Protein 5.7 L (6.2-8.2) g/dL Albumin 3.3 L (3.8-4.9) g/dL Albumin/Globulin Ratio 1.38 L (1.60-3.17) Ratio Urine Glucose (UA) (Negative) 05/12/24 05/12/24 Range/Units 12:13 12:14 WBC (4.50-10.00) X 10*3/uL MCV (80.0-97.0) FL MCH (27.0-32.0) pg RDW (11.5-14.5) % Immature Gran # (0.00-0.04) X 10*3/uL Neutrophils # (1.80-7.70) X 10*3/uL Lymphocytes # (0.90-5.00) X 10*3/uL Monocytes # (0.20-1.00) X 10*3/uL Eosinophils # (0.04-0.35) X 10*3/uL Potassium (3.5-5.5) mmol/L Chloride (96-109) mmol/L Anion Gap (4.00-12.00) mmol/L BUN (9.0-27.0) mg/dL Creatinine (0.6-1.5) mg/dL Est GFR (CKD-EPI) (>=60) BUN/Creatinine Ratio (12.00-20.00) Ratio Glucose (70-110) mg/dL POC Glucose (mg/dL) >600 H* >600 H* (70-110) mg/dL Calcium (8.7-10.3) mg/dL Alkaline Phosphatase (41-126) U/L Total Protein (6.2-8.2) g/dL Albumin (3.8-4.9) g/dL Albumin/Globulin Ratio (1.60-3.17) Ratio Urine Glucose (UA) (Negative) Assessment and Plan Assessment: Acute exacerbation of mild intermittent chronic bronchial asthma versus post infectious cough syndrome, possible acid reflux Acute exacerbation of chronic systolic congestive heart failure with ejection fraction 40 to 45% Acute kidney injury secondary to suspected cardiorenal syndrome, diuretics Diabetes mellitus, type II Diabetic neuropathy Coronary artery disease with previous stents/coronary artery bypass grafting Ischemic cardiomyopathy Hyperlipidemia Hypertension History of congestive heart failure Lifelong non-smoker Plan: The patient was seen and evaluated Labs and medications reviewed No acute concerns on CT scan of the chest Continue Symbicort and DuoNeb inhalations Continue a prednisone taper Stable and on room air oxygen Glucose level still high May require an insulin drip We will continue to follow I have personally seen and examined the patient, performed the documentation and the assessment and plan as written. Number of minutes spent on the visit: 10 Dictation was produced using [employer] dictation software. Please excuse any gr ammatical, word or spelling errors.
[2024-05-12] MEDS: INSULIN REGULAR 100 UNIT in SODIUM CHLORIDE 0.9% 100 ML IV SCH (15:02)
[2024-05-12 15:06] LABS: Glucose,Whole Blood 465 mg/dL (70-110)
[2024-05-12 16:07] LABS: Glucose,Whole Blood 435 mg/dL (70-110)
--- NOTE | 2024-05-12 16:27 | P.PN ---
Subjective Progress Note Date: 05/12/24 HISTORY OF PRESENT ILLNESS: This is a 59-year-old male patient of rosita and Dr. Ga with past medical history of coronary artery disease status post 6 vessel CABG 2006 with MAE to LAD, saphenous venous graft to the PDA, saphenous venous graft to the obtuse marginal one, radial artery to the obtuse marginal branch 2 and saphenous venous graft to the obtuse marginal 3 followed by heart catheterization with PCI and stent of the saphenous venous graft to the RCA in 2015 at which time he pres ented with non-ST elevated myocardial infarction. Most recent cardiac catheterization was performed on 04/10/2022 which revealed severe triple-vessel coronary artery disease with a patent ramus intermediate, patent SVG to the OM, patent MAE to the LAD, and occluded saphenous vein graft to the RCA which is chronic from before. Medical therapy was advised at that time. History of hypertension, hypertensive cardiovascular disease with left ventricular hypertrophy, hyperlipidemia, ischemic cardiomyopathy, paroxysmal atrial fibrillation, currently on Eliquis, diabetes mellitus type 2 with diabetic polyneuropathy, hyperlipidemia, asthma, obstructive sleep apnea on CPAP, chronic low back pain, DVT in the past, patient was recently hospitalized at [facility] between 06/05/2023 and discharged 06/15/2023 after he was admitted for GI bleed due to esophageal ulcer. Patient had EGD and incomplete colonoscopy due to poor prep at that time. Patient presented to the ER at [facility] due to increased cough and increased shortness of breath, was complaining of increased edema in both legs and ws seen by Isaiah Pena and PCR was negative for COVID-19. Influenza A, B annd RSV, CXR showed evidence of CHF with bilateral pleural effusion, with elevated BNP, was started on Furosemide 40 mg IVP q 8 h and was admitted to the hospital for acute on chronic systolic heart failure 05/06: Patient sitting up in bed in no apparent distress, he is feeling better today, he denies any chest pain, shortness of breath, he continues to have a significant coughing, no phlegm production, he continues to complain of pleurisy in his chest, I will start the patient on Solu-Medrol 40 mg a push every 8 ho Pio bianchioNeb 3 nebulization 4 times every day, also Pulmicort 1 mg nebulization twice every day, follow-up with the patient very closely he swelling is a bit better today, his potassium is down we will start potassium supplement 20 mg orally twice every day, follow-up with the patient labs in the next 24 hours, continue current treatment plan, patient was seen in consultation by cardiology recommended to continue current treatment plan 05/07: Patient is feeling better today, he is having less coughing, no chest pain or shortness of breath, he continues to have minimal pleurisy, he has been star raquel on Solu-Medrol 40 mg IV push every 8 hours we will decrease that to every 12 hours, continue with Tessalon Perles 200 mg orally 3 times every day, continue with nebulized treatment in the form of DuoNeb and Pulmicort, hopefully patient will be able to be discharged home in the next 24 hours. Allergy has seen the patient, and they recommended to continue same treatment plan. I will decrease IV Lasix to 40 mg IV push every 12 hours 05/08: Patient sitting up in bed he is complaining of increased swelling in the right upper extremity more than the left upper extremity, continues to have swel ling both lower extremity, he switched to Lasix 40 mg orally twice every day, discontinued Solu-Medrol, start the patient on prednisone 40 mg once every day, continue Zithromax 500 mg once every day, chest x-ray was done showed improvement in the aeration of the lung, continue current treatment plan, keep the patient in the hospital 05/09: Patient is feeling a bit better today, he continues to have some swelling in both lower extremities, he denies any chest pain, less short of breath, he continues to have some cough, he was switched to Symbicort 160/4.5 mcg 2 puffs in elation twice every day he continues to be on DuoNeb treatment nebulization 4 times every day, oxygen support, was seen by cardiology yesterday recommended to continue Lasix 40 mg orally twice every day, monitor input and output and daily weight, increase activity, follow-up with the patient very closely, his kidney function just appears to be worse, he was started on Zaroxolyn 2.5 mg orally today I will discontinue Farxiga, discontinue losartan, monitor the patient blood pressure very closely, ultrasound of the kidneys will be done, nephrology consultation Dr. Pope pulmonary consultation was obtained from Dr. Allen as well. 05/10: Patient is laying down in bed not feeling well at all, he continues to have significant edema in both upper and lower extremities, continue Lasix 40 mg orally twice every day, he was seen in consultation by nephrology who recommended to have a bladder scan since the patient I believe he is retaining urine, even though the ultrasound did not show evidence of any hydronephrosis at this time, there is a lesion in the kidney that need to be evaluated as an outpatient, we will discuss with cardiology and nephrology the possibility of starting the patient on dobutamine drip at this time, to try to improve his cardiac output, to increase his kidney perfusion, keep the patient off losartan, keep the patient off Farxiga for now, monitor the patient input and output and daily weight, avoid nephrotoxins. 05/11: Patient is sitting at the edge of the bed, he is feeling better today, he was taken off dexamethasone since his blood glucose level is all the way up to 400, he was maintained on DuoNeb, as well as Symbicort, he feels a bit better today, he is urinating well, his BUN is still elevated, his creatinine is up to 2.2, he has been on frusemide 40 mg orally twice every day Zaroxolyn 2.5 mg orally once every day will continue with that, follow-up with the patient very closely, nephrology/cardiology/pulmonary medicine is following, patient will be off losartan Farxiga and metformin for now, repeat labs tomorrow morning. 05/12: Patient is not feeling well today, he is kidney function is worsening and a daily basis, I will discontinue metolazone, discontinue Lasix at this time, start the patient on small dose of IV fluid in the form of normal saline 50 cc an hour, patient had a CT scan of the chest without contrast that showed evidence of minimal pleural effusion not significant, patient edema has gone down quite a bit, patient blood glucose level is not controlled, I will switch the patient to insulin drip at this point in time, patient will be transferred to the [facility] area, monitor the patient very closely, follow-up with the patient input and output and daily weight, I will monitor the patient urine output very closely, we will check the patient again in the next 24 hours, patient current condition continues to be worsened we will continue to monitor. REVIEW OF SYSTEMS: Constitutional: No documented fever, no chills, no night sweats. No weight meyers ge. Positive for weakness, positive for fatigue, no lethargy. No daytime sleepiness. HEENT: No headache. No blurred vision or double vision, no loss of vision. No loss of Hearing, no ringing in the ears, no dizziness. No nasal drainage or congestion. No epistaxis. No sore throat. Lungs: positive for shortness of breath, occasional cough, minimal sputum production. no wheezing. Reports dyspnea with activity. Cardiovascular: no chest pain, positive for lower extremity edema. No palpi tations. No paroxysmal nocturnal dyspnea. No orthopnea. positive for lightheadedness or dizziness. No syncopal episodes. Abdominal: Reports no abdominal pain. no nausea, vomiting. No diarrhea. No constipation. No bloody or tarry stools reports loss of appetite. Genitourinary: No dysuria, increased frequency, urgency. No urinary retention. Musculoskeletal: No myalgias. positive for muscle weakness, no gait dysfunction, frequent falls. No back pain. No neck pain. Integumentary: scabbed wounds to left caballero , no lesions. No rash or pruritus. No unusual bruising. No change in hair or nails. Neurologic: No aphasia. Minimal facial droop. No change in mentation. No head injury. No headache, minimal drift. Psychiatric: positive for depression. No anxiety. No mood swings. Endocrine: abnormal blood sugars. No weight change. PHYSICAL EXAMINATION: General: 59-year-old male laying down in no respiratory distress. HEENT: Head is atraumatic, normocephalic, pupils were equal round reactive to light and recommendation, extraocular muscle movement were intact, sclera nonicteric, conjunctivae were pale, mucous membranes of the mouth are somewhat dry. Neck: Supple, no JVP, normal carotid upstroke bilaterally, no lymphadenopathy. Chest: Decreased breath sounds at the bases, few rhonchi positive for expirratory wheezes,, no chest wall tenderness, no intercostal retractions. Heart: First heart sound is normal, second heart sounds normal, there is systolic ejection murmur 2/6 located in the left sternal border. Abdomen: Soft, nontender, nondistended, positive bowel sounds, there is no hepatosplenomegaly Extremities: There is +2 edema no calf tenderness DP +1 bilaterally. Neurologic examination: Patient is awake alert and oriented X 3, cranial nerves II-12 appear grossly intact, muscle power were 4 out of 5 in upper extremities and 4 out of 5 in bilateral lower extremities, deep tendon reflexes normal bilaterally. Minimal right facial droop, and right leg weakness. ASSESSMENT AND PLAN: 1. Acute on chronic systolic heart failure . Patient was taken off Lasix and metolazone for today, due to his current acute kidney injury patient was taken off losartan, Farxiga, due to acute kidney injury he was maintained on carvedilol 25 mg orally twice every day hydralazine 25 mg 3 times every day, follow-up with the patient very closely. 2. Acute kidney injury due to cardiorenal syndrome And vasomotor nephropathy. Patient will be taken off his Lasix as well as Zaroxolyn for now, start the patient on normal saline at 50 cc an hour, monitor the patient input and output and daily weight, repeat the patient labs in the next 24 hours, nephrology input appreciated. 3. Acute on chronic bronchitis. Continue patient on Symbicort 160/4.5 mcg 2 puffs inhalation twice every day, patient was decreased to prednisone 20 mg orally once every day, monitor the patient symptoms very closely, continue oxygen support, continue DuoNeb 3 mL nebulization 4 times every day, continue Tessalon Perles 200 mg orally 3 times every day. 4. Hypertension and hypertensive cardiovascular disease. Off losartan, continue patient on Carvedilol 25 mg orally twice every day, continue Amlodipine 5 mg po daily, continue with Hydralazine as well and monitor BP very closely. 5. Diabetes mellitus type 2 with steroid-induced hyperglycemia. Discontinue Lantus as well as Humalog, start the patient on insulin drip, start the patient on a small dose of IV fluid normal saline at 50 cc an hour, repeat the patient labs every hour monitor the patient symptoms very closely patient was transferred to [facility]. 6. Coronary artery disease status post CABG 6 as well as PCI in the past. Continue patient on ASA 81 mg once every day, Carvedilol 25 mg orally twice every day, continue patient on atorvastatin 80 mg orally once every day, continue Zetia 10 mg orally once every day. 7. Hyperlipidemia. Continue patient on atorvastatin 80 mg once every day, continue Zetia 10 mg orally once every day, monitor lipid panel, keep LDL 55-70. 8. Diabetic polyneuropathy. Continue patient on gabapentin decrease the dose to 300 mg mg orally 2 times every day. 9. Obstructive sleep apnea. Patient does have a CPAP at home. 10. Paroxysmal atrial fibrillation . Continue patient on Coreg 25 mg orally twice every day, Eliquis 5 mg po bid. 11. DVT prophylaxis. Continue Eliquis 5 mg orally twice every day. 12. GI prophylaxis. Continue Protonix 40 mg orally bid 13. History of CVA in the past recovered well, we will continue with Atorvastatin 80 mg po daily and Eliquis for life 14. Hypokalemia status post replacement. 15. Overall prognosis is very guarded. Objective - Vital Signs Vital signs: Vital Signs Temp 97.6 F 05/12/24 07:43 Pulse 72 05/12/24 08:45 Resp 16 05/12/24 07:43 BP 142/74 05/12/24 07:43 Pulse Ox 97 05/12/24 07:43 FiO2 Intake & Output 05/11/24 05/12/24 05/12/24 18:59 06:59 18:59 Intake Total 221 1220 480 Output Total 2200 1800 Balance -[id number] 480 Weight 83.7 kg Intake: Oral 221 1220 480 Output: Urine 2200 1800 Other: Voiding Method Urinal Toilet Urinal - Labs CBC & Chem 7: 05/12/24 05:43 05/12/24 13:17 Labs: Abnormal Lab Results - Last 24 Hours (Table) 05/11/24 05/11/24 05/11/24 Range/Units 12:38 13:10 17:20 WBC (4.50-10.00) X 10*3/uL MCV (80.0-97.0) FL MCH (27.0-32.0) pg RDW (11.5-14.5) % Immature Gran # (0.00-0.04) X 10*3/uL Neutrophils # (1.80-7.70) X 10*3/uL Lymphocytes # (0.90-5.00) X 10*3/uL Monocytes # (0.20-1.00) X 10*3/uL Eosinophils # (0.04-0.35) X 10*3/uL POC Glucose (mg/dL) 407 H 276 H (70-110) mg/dL Urine Glucose (UA) 4+ H (Negative) 05/11/24 05/12/24 05/12/24 Range/Units 20:15 05:43 06:05 WBC 17.21 H (4.50-10.00) X 10*3/uL MCV 78.8 L (80.0-97.0) FL MCH 25.5 L (27.0-32.0) pg RDW 15.6 H (11.5-14.5) % Immature Gran # 0.13 H (0.00-0.04) X 10*3/uL Neutrophils # 15.45 H (1.80-7.70) X 10*3/uL Lymphocytes # 0.59 L (0.90-5.00) X 10*3/uL Monocytes # 1.02 H (0.20-1.00) X 10*3/uL Eosinophils # 0 L (0.04-0.35) X 10*3/uL POC Glucose (mg/dL) 316 H 439 H (70-110) mg/dL Urine Glucose (UA) (Negative)
[2024-05-12 17:09] LABS: Glucose,Whole Blood 363 mg/dL (70-110)
[2024-05-12] MEDS: SODIUM CHLORIDE 0.9% 1,000 ML IV SCH (17:09)
[2024-05-12 18:10] LABS: Glucose,Whole Blood 493 mg/dL (70-110)
--- NOTE | 2024-05-12 19:03 | P.PN ---
Subjective Patient is seen for follow-up for acute kidney injury, cardiorenal associated with CHF exacerbation and volume overload. Currently being diuresed. Lasix has been switched back to IV. I discussed with cardiology for possibly starting dobutamine as patient states that he remains quite short of breath with significant lower extremity edema. Ejection fraction at 40 to 45%. Serum creatinine increased to 2.2 today. 24-hour urine output documented at 4.0 L. Objective - Vital Signs Vital signs: Vital Signs Temp 97.6 F 05/12/24 14:00 Pulse 70 05/12/24 16:19 Resp 17 05/12/24 15:22 BP 119/56 05/12/24 15:22 Pulse Ox 96 05/12/24 15:22 FiO2 Intake & Output 05/12/24 05/12/24 05/13/24 06:59 18:59 06:59 Intake Total 1220 506.253 Output Total 1800 1900 Balance -580 -1393.747 Weight 83.7 kg Intake: Intake, IV Titration 26.253 Amount Insulin Regular 100 unit 26.253 In Sodium Chloride 0.9% 100 ml @ Titrate IV .Q0M [facility] Rx#:[id number] Oral 1220 480 Output: Urine 1800 1900 Other: Voiding Method Toilet Urinal - Exam Patient is awake, comfortable, no acute distress Examination of the heart S1 and S2 Examination of the lungs bilateral breath sounds are heard Abdomen is soft nontender Examination of lower extremity shows edema 2+ bilaterally [employer] exam grossly intact - Labs CBC & Chem 7: 05/12/24 05:43 05/12/24 13:17 Labs: Abnormal Lab Results - Last 24 Hours (Table) 05/11/24 05/12/24 05/12/24 Range/Units 20:15 05:43 05:43 WBC 17.21 H (4.50-10.00) X 10*3/uL MCV 78.8 L (80.0-97.0) FL MCH 25.5 L (27.0-32.0) pg RDW 15.6 H (11.5-14.5) % Immature Gran # 0.13 H (0.00-0.04) X 10*3/uL Neutrophils # 15.45 H (1.80-7.70) X 10*3/uL Lymphocytes # 0.59 L (0.90-5.00) X 10*3/uL Monocytes # 1.02 H (0.20-1.00) X 10*3/uL Eosinophils # 0 L (0.04-0.35) X 10*3/uL Potassium 3.3 L (3.5-5.5) mmol/L Chloride 94 L (96-109) mmol/L Anion Gap 17.50 H (4.00-12.00) mmol/L BUN 96.0 H (9.0-27.0) mg/dL Creatinine 2.2 H (0.6-1.5) mg/dL Est GFR (CKD-EPI) 33 L (>=60) BUN/Creatinine Ratio 43.64 H (12.00-20.00) Ratio Glucose 490 H (70-110) mg/dL POC Glucose (mg/dL) 316 H (70-110) mg/dL Calcium 8.0 L (8.7-10.3) mg/dL Alkaline Phosphatase 169 H (41-126) U/L Total Protein 5.7 L (6.2-8.2) g/dL Albumin 3.3 L (3.8-4.9) g/dL Albumin/Globulin Ratio 1.38 L (1.60-3.17) Ratio 05/12/24 05/12/24 05/12/24 Range/Units 06:05 12:13 12:14 WBC (4.50-10.00) X 10*3/uL MCV (80.0-97.0) FL MCH (27.0-32.0) pg RDW (11.5-14.5) % Immature Gran # (0.00-0.04) X 10*3/uL Neutrophils # (1.80-7.70) X 10*3/uL Lymphocytes # (0.90-5.00) X 10*3/uL Monocytes # (0.20-1.00) X 10*3/uL Eosinophils # (0.04-0.35) X 10*3/uL Potassium (3.5-5.5) mmol/L Chloride (96-109) mmol/L Anion Gap (4.00-12.00) mmol/L BUN (9.0-27.0) mg/dL Creatinine (0.6-1.5) mg/dL Est GFR (CKD-EPI) (>=60) BUN/Creatinine Ratio (12.00-20.00) Ratio Glucose (70-110) mg/dL POC Glucose (mg/dL) 439 H >600 H* >600 H* (70-110) mg/dL Calcium (8.7-10.3) mg/dL Alkaline Phosphatase (41-126) U/L Total Protein (6.2-8.2) g/dL Albumin (3.8-4.9) g/dL Albumin/Globulin Ratio (1.60-3.17) Ratio 05/12/24 05/12/24 05/12/24 Range/Units 13:17 15:01 16:06 WBC (4.50-10.00) X 10*3/uL MCV (80.0-97.0) FL MCH (27.0-32.0) pg RDW (11.5-14.5) % Immature Gran # (0.00-0.04) X 10*3/uL Neutrophils # (1.80-7.70) X 10*3/uL Lymphocytes # (0.90-5.00) X 10*3/uL Monocytes # (0.20-1.00) X 10*3/uL Eosinophils # (0.04-0.35) X 10*3/uL Potassium (3.5-5.5) mmol/L Chloride (96-109) mmol/L Anion Gap (4.00-12.00) mmol/L BUN (9.0-27.0) mg/dL Creatinine (0.6-1.5) mg/dL Est GFR (CKD-EPI) (>=60) BUN/Creatinine Ratio (12.00-20.00) Ratio Glucose 509 H* (70-110) mg/dL POC Glucose (mg/dL) 465 H 435 H (70-110) mg/dL Calcium (8.7-10.3) mg/dL Alkaline Phosphatase (41-126) U/L Total Protein (6.2-8.2) g/dL Albumin (3.8-4.9) g/dL Albumin/Globulin Ratio (1.60-3.17) Ratio 05/12/24 05/12/24 Range/Units 17:07 18:09 WBC (4.50-10.00) X 10*3/uL MCV (80.0-97.0) FL MCH (27.0-32.0) pg RDW (11.5-14.5) % Immature Gran # (0.00-0.04) X 10*3/uL Neutrophils # (1.80-7.70) X 10*3/uL Lymphocytes # (0.90-5.00) X 10*3/uL Monocytes # (0.20-1.00) X 10*3/uL Eosinophils # (0.04-0.35) X 10*3/uL Potassium (3.5-5.5) mmol/L Chloride (96-109) mmol/L Anion Gap (4.00-12.00) mmol/L BUN (9.0-27.0) mg/dL Creatinine (0.6-1.5) mg/dL Est GFR (CKD-EPI) (>=60) BUN/Creatinine Ratio (12.00-20.00) Ratio Glucose (70-110) mg/dL POC Glucose (mg/dL) 363 H 493 H (70-110) mg/dL Calcium (8.7-10.3) mg/dL Alkaline Phosphatase (41-126) U/L Total Protein (6.2-8.2) g/dL Albumin (3.8-4.9) g/dL Albumin/Globulin Ratio (1.60-3.17) Ratio Assessment and Plan Assessment: 1. Acute kidney injury, cardiorenal, rule out urine retention. No significant hypotension noted. Currently off of angiotensin receptor blockers. UA is benign. No evidence of obstruction noted. Consider inotropic agents if no improvement in volume status. 2. Acute on chronic CHF with reduced EF of 40 to 45% on echocardiogram 3. Volume overload, likely worsened with use of steroids 4. Hypokalemia secondary to diuretics 5. Type 2 diabetes maintained on insulin 6. Chronic A-fib Plan: Change Lasix to IV Discussed with cardiology regarding dobutamine. Replace potassium Continue off of Cozaar Accurate I's and O's
[2024-05-12 19:10] LABS: Glucose,Whole Blood 469 mg/dL (70-110)
[2024-05-12 20:06] LABS: Glucose,Whole Blood 271 mg/dL (70-110)
[2024-05-12 21:00] LABS: Glucose,Whole Blood 199 mg/dL (70-110)
[2024-05-12 22:00] LABS: Glucose,Whole Blood 137 mg/dL (70-110)
[2024-05-12 23:11] LABS: Glucose,Whole Blood 112 mg/dL (70-110)
[2024-05-13 00:32] LABS: Glucose,Whole Blood 117 mg/dL (70-110)
[2024-05-13 01:12] LABS: Glucose,Whole Blood 118 mg/dL (70-110)
[2024-05-13 02:17] LABS: Glucose,Whole Blood 196 mg/dL (70-110)
[2024-05-13 03:23] LABS: Glucose,Whole Blood 136 mg/dL (70-110)
[2024-05-13 04:39] LABS: Glucose,Whole Blood 136 mg/dL (70-110)
[2024-05-13 05:01] LABS: Glucose,Whole Blood 112 mg/dL (70-110)
[2024-05-13 06:08] LABS: Glucose,Whole Blood 126 mg/dL (70-110)
[2024-05-13 07:06] LABS: Glucose,Whole Blood 203 mg/dL (70-110)
[2024-05-13 07:17] LABS: Basophils % (A) 0 %; Eosinophils # (A) 0.1 k/uL (0-0.7); Eosinophils % (A) 0 %; HCT 45.6 % (39.0-53.0); HGB 14.4 gm/dL (13.0-17.5); Hypochromasia Slight; Lymphocytes # (A) 1.3 k/uL (1.0-4.8); Lymphocytes % (A) 7 %; MCH 25.8 pg (25.0-35.0); MCHC 31.6 g/dL (31.0-37.0); MCV 81.6 fL (80.0-100.0); Mean Platelet Volume 9.5; Monocytes # (A) 1.3 k/uL (0-1.0); Monocytes % (A) 7 %; Neutrophils % (A) 84 %; Platelet Count 212 k/uL (150-450); RBC 5.59 m/uL (4.30-5.90); RDW 15.6 % (11.5-15.5); WBC 17.9 k/uL (3.8-10.6)
[2024-05-13 07:38] LABS: ALT 41 U/L (4-49); AST 29 U/L (17-59); African American GFR (CKD) 36 (>60 ml/min/1.73 sqM); Alkaline Phosphatase 120 U/L (38-126); Anion Gap 12 mmol/L; Calcium 7.5 mg/dL (8.4-10.2); Carbon Dioxide 26 mmol/L (22-30); Chloride 98 mmol/L (98-107); Glucose 161 mg/dL (74-99); Non-African American GFR(CKD) 31 (>60 ml/min/1.73 sqM); Potassium 3.9 mmol/L (3.5-5.1); Sodium 136 mmol/L (137-145); Total Bilirubin 0.7 mg/dL (0.2-1.3); Total Protein 5.5 g/dL (6.3-8.2)
[2024-05-13 07:52] LABS: Blood Urea Nitrogen 110 mg/dL (9-20)
[2024-05-13 08:03] LABS: Glucose,Whole Blood 219 mg/dL (70-110)
--- NOTE | 2024-05-13 09:15 | P.PN ---
Subjective Progress Note Date: 05/13/24 HISTORY OF PRESENT ILLNESS: This is a 59-year-old male patient of rosita and Dr. Ga with past medical history of coronary artery disease status post 6 vessel CABG 2006 with MAE to LAD, saphenous venous graft to the PDA, saphenous venous graft to the obtuse marginal one, radial artery to the obtuse marginal branch 2 and saphenous venous graft to the obtuse marginal 3 followed by heart catheterization with PCI and stent of the saphenous venous graft to the RCA in 2015 at which time he pres ented with non-ST elevated myocardial infarction. Most recent cardiac catheterization was performed on 04/10/2022 which revealed severe triple-vessel coronary artery disease with a patent ramus intermediate, patent SVG to the OM, patent MAE to the LAD, and occluded saphenous vein graft to the RCA which is chronic from before. Medical therapy was advised at that time. History of hypertension, hypertensive cardiovascular disease with left ventricular hypertrophy, hyperlipidemia, ischemic cardiomyopathy, paroxysmal atrial fibrillation, currently on Eliquis, diabetes mellitus type 2 with diabetic polyneuropathy, hyperlipidemia, asthma, obstructive sleep apnea on CPAP, chronic low back pain, DVT in the past, patient was recently hospitalized at [facility] between 06/05/2023 and discharged 06/15/2023 after he was admitted for GI bleed due to esophageal ulcer. Patient had EGD and incomplete colonoscopy due to poor prep at that time. Patient presented to the ER at [facility] due to increased cough and increased shortness of breath, was complaining of increased edema in both legs and ws seen by Isaiah Pena and PCR was negative for COVID-19. Influenza A, B annd RSV, CXR showed evidence of CHF with bilateral pleural effusion, with elevated BNP, was started on Furosemide 40 mg IVP q 8 h and was admitted to the hospital for acute on chronic systolic heart failure 05/06: Patient sitting up in bed in no apparent distress, he is feeling better today, he denies any chest pain, shortness of breath, he continues to have a significant coughing, no phlegm production, he continues to complain of pleurisy in his chest, I will start the patient on Solu-Medrol 40 mg a push every 8 ho Pio bianchioNeb 3 nebulization 4 times every day, also Pulmicort 1 mg nebulization twice every day, follow-up with the patient very closely he swelling is a bit better today, his potassium is down we will start potassium supplement 20 mg orally twice every day, follow-up with the patient labs in the next 24 hours, continue current treatment plan, patient was seen in consultation by cardiology recommended to continue current treatment plan 05/07: Patient is feeling better today, he is having less coughing, no chest pain or shortness of breath, he continues to have minimal pleurisy, he has been star raquel on Solu-Medrol 40 mg IV push every 8 hours we will decrease that to every 12 hours, continue with Tessalon Perles 200 mg orally 3 times every day, continue with nebulized treatment in the form of DuoNeb and Pulmicort, hopefully patient will be able to be discharged home in the next 24 hours. Allergy has seen the patient, and they recommended to continue same treatment plan. I will decrease IV Lasix to 40 mg IV push every 12 hours 05/08: Patient sitting up in bed he is complaining of increased swelling in the right upper extremity more than the left upper extremity, continues to have swel ling both lower extremity, he switched to Lasix 40 mg orally twice every day, discontinued Solu-Medrol, start the patient on prednisone 40 mg once every day, continue Zithromax 500 mg once every day, chest x-ray was done showed improvement in the aeration of the lung, continue current treatment plan, keep the patient in the hospital 05/09: Patient is feeling a bit better today, he continues to have some swelling in both lower extremities, he denies any chest pain, less short of breath, he continues to have some cough, he was switched to Symbicort 160/4.5 mcg 2 puffs in elation twice every day he continues to be on DuoNeb treatment nebulization 4 times every day, oxygen support, was seen by cardiology yesterday recommended to continue Lasix 40 mg orally twice every day, monitor input and output and daily weight, increase activity, follow-up with the patient very closely, his kidney function just appears to be worse, he was started on Zaroxolyn 2.5 mg orally today I will discontinue Farxiga, discontinue losartan, monitor the patient blood pressure very closely, ultrasound of the kidneys will be done, nephrology consultation Dr. Pope pulmonary consultation was obtained from Dr. Allen as well. 05/10: Patient is laying down in bed not feeling well at all, he continues to have significant edema in both upper and lower extremities, continue Lasix 40 mg orally twice every day, he was seen in consultation by nephrology who recommended to have a bladder scan since the patient I believe he is retaining urine, even though the ultrasound did not show evidence of any hydronephrosis at this time, there is a lesion in the kidney that need to be evaluated as an outpatient, we will discuss with cardiology and nephrology the possibility of starting the patient on dobutamine drip at this time, to try to improve his cardiac output, to increase his kidney perfusion, keep the patient off losartan, keep the patient off Farxiga for now, monitor the patient input and output and daily weight, avoid nephrotoxins. 05/11: Patient is sitting at the edge of the bed, he is feeling better today, he was taken off dexamethasone since his blood glucose level is all the way up to 400, he was maintained on DuoNeb, as well as Symbicort, he feels a bit better today, he is urinating well, his BUN is still elevated, his creatinine is up to 2.2, he has been on frusemide 40 mg orally twice every day Zaroxolyn 2.5 mg orally once every day will continue with that, follow-up with the patient very closely, nephrology/cardiology/pulmonary medicine is following, patient will be off losartan Farxiga and metformin for now, repeat labs tomorrow morning. 05/12: Patient is not feeling well today, he is kidney function is worsening and a daily basis, I will discontinue metolazone, discontinue Lasix at this time, start the patient on small dose of IV fluid in the form of normal saline 50 cc an hour, patient had a CT scan of the chest without contrast that showed evidence of minimal pleural effusion not significant, patient edema has gone down quite a bit, patient blood glucose level is not controlled, I will switch the patient to insulin drip at this point in time, [facility], monitor the patient very closely, follow-up with the patient input and output and daily weight, I will monitor the patient urine output very closely, we will check the patient again in the next 24 hours, patient current condition continues to be worsened we will continue to monitor. 05/13: Patient is sitting up in bed he continues to feel about the same, he continues to be somewhat short of breath, he continues to have some edema in both lower extremities, he continued to have some cough no phlegm production, he was started on insulin drip yesterday, his blood glucose level is much better today, will continue with that, follow-up with the patient very closely, his BUN is a lot worse, 102, he continued to have an acute kidney injury due to acute tubular necrosis and cardiorenal syndrome, he has been started on normal saline at 50 cc an hour, will follow-up with the patient very closely, discussed with nephrology the plan of action at this point in time as the patient kidney function is worsened. Start the patient on protein drink in the form of Glucerna 3 times every day REVIEW OF SYSTEMS: Constitutional: No documented fever, no chills, no night sweats. No weight change. Positive for weakness, positive for fatigue, no lethargy. No daytime sleepiness. HEENT: No headache. No blurred vision or double vision, no loss of vision. No loss of Hearing, no ringing in the ears, no dizziness. No nasal drainage or congestion. No epistaxis. No sore throat. Lungs: positive for shortness of breath, occasional cough, minimal sputum production. no wheezing. Reports dyspnea with activity. Cardiovascular: no chest pain, positive for lower extremity edema. No p alpitations. No paroxysmal nocturnal dyspnea. No orthopnea. positive for lightheadedness or dizziness. No syncopal episodes. Abdominal: Reports no abdominal pain. no nausea, vomiting. No diarrhea. No constipation. No bloody or tarry stools reports loss of appetite. Genitourinary: No dysuria, increased frequency, urgency. No urinary retention. Musculoskeletal: No myalgias. positive for muscle weakness, no gait dysfunction, frequent falls. No back pain. No neck pain. Integumentary: scabbed wounds to left caballero , no lesions. No rash or pruritus. No unusual bruising. No change in hair or nails. Neurologic: No aphasia. Minimal facial droop. No change in mentation. No head injury. No headache, minimal drift. Psychiatric: positive for depression. No anxiety. No mood swings. Endocrine: abnormal blood sugars. No weight change. PHYSICAL EXAMINATION: General: 59-year-old male laying down in no respiratory distress. HEENT: Head is atraumatic, normocephalic, pupils were equal round reactive to light and recommendation, extraocular muscle movement were intact, sclera nonicteric, conjunctivae were pale, mucous membranes of the mouth are somewhat dry. Neck: Supple, no JVP, normal carotid upstroke bilaterally, no lymphadenopathy. Chest: Decreased breath sounds at the bases, few rhonchi positive for expirratory wheezes,, no chest wall tenderness, no intercostal retractions. Heart: First heart sound is normal, second heart sounds normal, there is systolic ejection murmur 2/6 located in the left sternal border. Abdomen: Soft, nontender, nondistended, positive bowel sounds, there is no hepatosplenomegaly Extremities: There is +2 edema no calf tenderness DP +1 bilaterally. Neurologic examination: Patient is awake alert and oriented X 3, cranial nerves II-12 appear grossly intact, muscle power were 4 out of 5 in upper extremities and 4 out of 5 in bilateral lower extremities, deep tendon reflexes normal bilaterally. Minimal right facial droop, and right leg weakness. ASSESSMENT AND PLAN: 1. Acute on chronic systolic heart failure . Patient was taken off Lasix and metolazone for today, due to his current acute kidney injury patient was taken off losartan, [facility], due to acute kidney injury he was maintained on carvedilol 25 mg orally twice every day hydralazine 25 mg 3 times every day, follow-up with the patient very closely. 2. Acute kidney injury due to cardiorenal syndrome And vasomotor nephropathy. Patient will be taken off his Lasix as well as Zaroxolyn for now, start the patient on normal saline at 50 cc an hour, monitor the patient input and output and daily weight, repeat the patient labs in the next 24 hours, nephrology input appreciated. 3. Acute on chronic bronchitis. Continue patient on Symbicort 160/4.5 mcg 2 puffs inhalation twice every day, patient was decreased to prednisone 20 mg orally once every day, monitor the patient symptoms very closely, continue oxygen support, continue DuoNeb 3 mL nebulization 4 times every day, continue Tessalon Perles 200 mg orally 3 times every day. 4. Hypertension and hypertensive cardiovascular disease. Off losartan, continue patient on Carvedilol 25 mg orally twice every day, continue Amlodipine 5 mg po daily, continue with Hydralazine as well and monitor BP very closely. 5. Diabetes mellitus type 2 with steroid-induced hyperglycemia. Discontinue Lantus as well as Humalog, start the patient on insulin drip, start the patient on a small dose of IV fluid normal saline at 50 cc an hour, repeat the patient labs every hour monitor the patient symptoms very closely patient was transferred to [facility]. 6. Coronary artery disease status post CABG 6 as well as PCI in the past. Continue patient on ASA 81 mg once every day, Carvedilol 25 mg orally twice every day, continue patient on atorvastatin 80 mg orally once every day, continue Zetia 10 mg orally once every day. 7. Hyperlipidemia. Continue patient on atorvastatin 80 mg once every day, continue Zetia 10 mg orally once every day, monitor lipid panel, keep LDL 55-70. 8. Diabetic polyneuropathy. Continue patient on gabapentin decrease the dose to 300 mg mg orally 2 times every day. 9. Obstructive sleep apnea. Patient does have a CPAP at home. 10. Paroxysmal atrial fibrillation . Continue patient on Coreg 25 mg orally twice every day, Eliquis 5 mg po bid. 11. DVT prophylaxis. Continue Eliquis 5 mg orally twice every day. 12. GI prophylaxis. Continue Protonix 40 mg orally bid 13. History of CVA in the past recovered well, we will continue with Atorvastatin 80 mg po daily and Eliquis for life 14. Hypokalemia status post replacement. 15. Overall prognosis is very guarded. Objective - Vital Signs Vital signs: Vital Signs Temp 98.0 F 05/13/24 04:11 Pulse 69 05/13/24 08:00 Resp 16 05/13/24 08:00 BP 111/62 05/13/24 08:00 Pulse Ox 94 L 05/13/24 08:00 FiO2 Intake & Output 05/12/24 05/13/24 05/13/24 18:59 06:59 18:59 Intake Total 506.253 554.881 0 Output Total 1900 Balance -1393.747 554.881 0 Weight 83.8 kg Intake: Intake, IV Titration 26.253 74.881 0 Amount Insulin Regular 100 unit 26.253 74.881 0 In Sodium Chloride 0.9% 100 ml @ Titrate IV .Q0M INDERJIT Rx#:[id number] Oral 480 480 Output: Urine 1900 Other: Voiding Method Toilet Urinal # Voids 1 - Labs CBC & Chem 7: 05/13/24 06:31 05/13/24 06:31 Labs: Abnormal Lab Results - Last 24 Hours (Table) 05/12/24 05/12/24 05/12/24 Range/Units 05:43 12:13 12:14 WBC (3.8-10.6) k/uL RDW (11.5-15.5) % Neutrophils # (1.3-7.7) k/uL Monocytes # (0-1.0) k/uL Sodium (137-145) mmol/L Potassium 3.3 L (3.5-5.5) mmol/L Chloride 94 L (96-109) mmol/L Anion Gap 17.50 H (4.00-12.00) mmol/L BUN 96.0 H (9.0-27.0) mg/dL Creatinine 2.2 H (0.6-1.5) mg/dL Est GFR (CKD-EPI) 33 L (>=60) BUN/Creatinine Ratio 43.64 H (12.00-20.00) Ratio Glucose 490 H (70-110) mg/dL POC Glucose (mg/dL) >600 H* >600 H* (70-110) mg/dL Calcium 8.0 L (8.7-10.3) mg/dL Alkaline Phosphatase 169 H (41-126) U/L Total Protein 5.7 L (6.2-8.2) g/dL Albumin 3.3 L (3.8-4.9) g/dL Albumin/Globulin Ratio 1.38 L (1.60-3.17) Ratio 05/12/24 05/12/24 05/12/24 Range/Units 13:17 15:01 16:06 WBC (3.8-10.6) k/uL RDW (11.5-15.5) % Neutrophils # (1.3-7.7) k/uL Monocytes # (0-1.0) k/uL Sodium (137-145) mmol/L Potassium (3.5-5.5) mmol/L Chloride (96-109) mmol/L Anion Gap (4.00-12.00) mmol/L BUN (9.0-27.0) mg/dL Creatinine (0.6-1.5) mg/dL Est GFR (CKD-EPI) (>=60) BUN/Creatinine Ratio (12.00-20.00) Ratio Glucose 509 H* (70-110) mg/dL POC Glucose (mg/dL) 465 H 435 H (70-110) mg/dL Calcium (8.7-10.3) mg/dL Alkaline Phosphatase (41-126) U/L Total Protein (6.2-8.2) g/dL Albumin (3.8-4.9) g/dL Albumin/Globulin Ratio (1.60-3.17) Ratio 05/12/24 05/12/24 05/12/24 Range/Units 17:07 18:09 19:02 WBC (3.8-10.6) k/uL RDW (11.5-15.5) % Neutrophils # (1.3-7.7) k/uL Monocytes # (0-1.0) k/uL Sodium (137-145) mmol/L Potassium (3.5-5.5) mmol/L Chloride (96-109) mmol/L Anion Gap (4.00-12.00) mmol/L BUN (9.0-27.0) mg/dL Creatinine (0.6-1.5) mg/dL Est GFR (CKD-EPI) (>=60) BUN/Creatinine Ratio (12.00-20.00) Ratio Glucose (70-110) mg/dL POC Glucose (mg/dL) 363 H 493 H 469 H (70-110) mg/dL Calcium (8.7-10.3) mg/dL Alkaline Phosphatase (41-126) U/L Total Protein (6.2-8.2) g/dL Albumin (3.8-4.9) g/dL Albumin/Globulin Ratio (1.60-3.17) Ratio 05/12/24 05/12/24 05/12/24 Range/Units 20:04 20:58 21:59 WBC (3.8-10.6) k/uL RDW (11.5-15.5) % Neutrophils # (1.3-7.7) k/uL Monocytes # (0-1.0) k/uL Sodium (137-145) mmol/L Potassium (3.5-5.5) mmol/L Chloride (96-109) mmol/L Anion Gap (4.00-12.00) mmol/L BUN (9.0-27.0) mg/dL Creatinine (0.6-1.5) mg/dL Est GFR (CKD-EPI) (>=60) BUN/Creatinine Ratio (12.00-20.00) Ratio Glucose (70-110) mg/dL POC Glucose (mg/dL) 271 H 199 H 137 H (70-110) mg/dL Calcium (8.7-10.3) mg/dL Alkaline Phosphatase (41-126) U/L Total Protein (6.2-8.2) g/dL Albumin (3.8-4.9) g/dL Albumin/Globulin Ratio (1.60-3.17) Ratio 05/12/24 05/13/24 05/13/24 Range/Units 23:09 00:31 01:10 WBC (3.8-10.6) k/uL RDW (11.5-15.5) % Neutrophils # (1.3-7.7) k/uL Monocytes # (0-1.0) k/uL Sodium (137-145) mmol/L Potassium (3.5-5.5) mmol/L Chloride (96-109) mmol/L Anion Gap (4.00-12.00) mmol/L BUN (9.0-27.0) mg/dL Creatinine (0.6-1.5) mg/dL Est GFR (CKD-EPI) (>=60) BUN/Creatinine Ratio (12.00-20.00) Ratio Glucose (70-110) mg/dL POC Glucose (mg/dL) 112 H 117 H 118 H (70-110) mg/dL Calcium (8.7-10.3) mg/dL Alkaline Phosphatase (41-126) U/L Total Protein (6.2-8.2) g/dL Albumin (3.8-4.9) g/dL Albumin/Globulin Ratio (1.60-3.17) Ratio 05/13/24 05/13/24 05/13/24 Range/Units 02:16 03:20 04:02 WBC (3.8-10.6) k/uL RDW (11.5-15.5) % Neutrophils # (1.3-7.7) k/uL Monocytes # (0-1.0) k/uL Sodium (137-145) mmol/L Potassium (3.5-5.5) mmol/L Chloride (96-109) mmol/L Anion Gap (4.00-12.00) mmol/L BUN (9.0-27.0) mg/dL Creatinine (0.6-1.5) mg/dL Est GFR (CKD-EPI) (>=60) BUN/Creatinine Ratio (12.00-20.00) Ratio Glucose (70-110) mg/dL POC Glucose (mg/dL) 196 H 136 H 136 H (70-110) mg/dL Calcium (8.7-10.3) mg/dL Alkaline Phosphatase (41-126) U/L Total Protein (6.2-8.2) g/dL Albumin (3.8-4.9) g/dL Albumin/Globulin Ratio (1.60-3.17) Ratio 05/13/24 05/13/24 05/13/24 Range/Units 04:59 06:06 06:31 WBC 17.9 H (3.8-10.6) k/uL RDW 15.6 H (11.5-15.5) % Neutrophils # 15.0 H (1.3-7.7) k/uL Monocytes # 1.3 H (0-1.0) k/uL Sodium (137-145) mmol/L Potassium (3.5-5.5) mmol/L Chloride (96-109) mmol/L Anion Gap (4.00-12.00) mmol/L BUN (9.0-27.0) mg/dL Creatinine (0.6-1.5) mg/dL Est GFR (CKD-EPI) (>=60) BUN/Creatinine Ratio (12.00-20.00) Ratio Glucose (70-110) mg/dL POC Glucose (mg/dL) 112 H 126 H (70-110) mg/dL Calcium (8.7-10.3) mg/dL Alkaline Phosphatase (41-126) U/L Total Protein (6.2-8.2) g/dL Albumin (3.8-4.9) g/dL Albumin/Globulin Ratio (1.60-3.17) Ratio 03/22/25 03/22/25 03/22/25 Range/Units 06:31 07:05 08:00 WBC (3.8-10.6) k/uL RDW (11.5-15.5) % Neutrophils # (1.3-7.7) k/uL Monocytes # (0-1.0) k/uL Sodium 136 L (137-145) mmol/L Potassium (3.5-5.5) mmol/L Chloride (96-109) mmol/L Anion Gap (4.00-12.00) mmol/L BUN 110 H* (9.0-27.0) mg/dL Creatinine 2.23 H (0.6-1.5) mg/dL Est GFR (CKD-EPI) (>=60) BUN/Creatinine Ratio (12.00-20.00) Ratio Glucose 161 H (70-110) mg/dL POC Glucose (mg/dL) 203 H 219 H (70-110) mg/dL Calcium 7.5 L (8.7-10.3) mg/dL Alkaline Phosphatase (41-126) U/L Total Protein 5.5 L (6.2-8.2) g/dL Albumin 3.0 L (3.8-4.9) g/dL Albumin/Globulin Ratio (1.60-3.17) Ratio
[2024-05-13 09:16] LABS: Glucose,Whole Blood 169 mg/dL (70-110)
[2024-05-13 10:26] LABS: Glucose,Whole Blood 137 mg/dL (70-110)
--- NOTE | 2024-05-13 10:37 | P.PN ---
Subjective Progress Note Date: 05/13/24 This is Moises Shah NP, I'm dictating on behalf of Dr. Jenkins's H&P and A&P. Patient was interviewed and examined. Patient is a pleasant 59-year-old male whom we were consulted on for congestive heart failure. Patient continues to demonstrate mild 1+ pitting edema in the bilateral lower extremities. He continues to demonstrate rhonchi in his lungs. He reports that his breathing is relatively okay today. He denies chest pain. GENERAL: Well-appearing, well-nourished and in no acute distress. NECK: Supple without JVD or thyromegaly. LUNGS: Breath sounds clear to auscultation bilaterally. Respiration equal and unlabored. No wheezes, rales or rhonchi. HEART: Regular rate and rhythm without murmurs, rubs or gallops. S1 and S2 heard. EXTREMITIES: Normal range of motion, no edema. No clubbing or cyanosis. Peripheral pulses intact and strong. VITALS: Temp 98.0, pulse 76, respirations 16, blood pressure 111/62, O2 saturation 94% on room air TELEMETRY: Atrial fibrillation with controlled ventricular response LABS: White count 17.9, hemoglobin 14.4, platelets 212, sodium 136, potassium 3.9, BUN 110, creatinine 2.23, calcium 7.5, IMPRESSION: 1. Acute on chronic heart failure with reduced EF, 40 to 45% 2. CAD with previous three-vessel CABG and known chronically occluded SVG to RCA and diagonal 3. Ischemic cardiomyopathy 4. Persistent atrial fibrillation with controlled ventricular response 5. Hypertension 6. Hyperlipidemia 7. Diabetes 8. CVA 9. History of GI bleed 10. Acute kidney injury, nephrology to manage 11. Severe pulmonary hypertension 12. Valvular heart disease with moderate to severe mitral regurgitation, moderate tricuspid regurgitation, mild to moderate pulmonic regurgitation PLAN: Continue current meds as ordered. Continue daily weights, accurate intake and output, and monitoring of kidney function. Continued kidney management per nephrology. Continued respiratory management per pulmonology. No further recommendations from a cardiology standpoint. Thank you for allowing us to participate in the care of this patient. Objective - Vital Signs Vital signs: Vital Signs Temp 98.0 F 05/13/24 04:11 Pulse 76 05/13/24 09:36 Resp 16 05/13/24 08:00 BP 111/62 05/13/24 08:00 Pulse Ox 94 L 05/13/24 08:00 FiO2 Intake & Output 05/12/24 05/13/24 05/13/24 18:59 06:59 18:59 Intake Total 506.253 554.881 240 Output Total 1900 Balance -1393.747 554.881 240 Weight 83.8 kg Intake: Intake, IV Titration 26.253 74.881 0 Amount Insulin Regular 100 unit 26.253 74.881 0 In Sodium Chloride 0.9% 100 ml @ Titrate IV .Q0M [facility] Rx#:[id number] Oral 480 480 240 Output: Urine 1900 Other: Voiding Method Toilet Urinal # Voids 1 - Labs CBC & Chem 7: 05/13/24 06:31 05/13/24 06:31 Labs: Abnormal Lab Results - Last 24 Hours (Table) 05/12/24 05/12/24 05/12/24 Range/Units 12:13 12:14 13:17 WBC (3.8-10.6) k/uL RDW (11.5-15.5) % Neutrophils # (1.3-7.7) k/uL Monocytes # (0-1.0) k/uL Sodium (137-145) mmol/L BUN (9-20) mg/dL Creatinine (0.66-1.25) mg/dL Glucose 509 H* (74-99) mg/dL POC Glucose (mg/dL) >600 H* >600 H* (70-110) mg/dL Calcium (8.4-10.2) mg/dL Total Protein (6.3-8.2) g/dL Albumin (3.5-5.0) g/dL 05/12/24 05/12/24 05/12/24 Range/Units 15:01 16:06 17:07 WBC (3.8-10.6) k/uL RDW (11.5-15.5) % Neutrophils # (1.3-7.7) k/uL Monocytes # (0-1.0) k/uL Sodium (137-145) mmol/L BUN (9-20) mg/dL Creatinine (0.66-1.25) mg/dL Glucose (74-99) mg/dL POC Glucose (mg/dL) 465 H 435 H 363 H (70-110) mg/dL Calcium (8.4-10.2) mg/dL Total Protein (6.3-8.2) g/dL Albumin (3.5-5.0) g/dL 05/12/24 05/12/24 05/12/24 Range/Units 18:09 19:02 20:04 WBC (3.8-10.6) k/uL RDW (11.5-15.5) % Neutrophils # (1.3-7.7) k/uL Monocytes # (0-1.0) k/uL Sodium (137-145) mmol/L BUN (9-20) mg/dL Creatinine (0.66-1.25) mg/dL Glucose (74-99) mg/dL POC Glucose (mg/dL) 493 H 469 H 271 H (70-110) mg/dL Calcium (8.4-10.2) mg/dL Total Protein (6.3-8.2) g/dL Albumin (3.5-5.0) g/dL 05/12/24 05/12/24 05/12/24 Range/Units 20:58 21:59 23:09 WBC (3.8-10.6) k/uL RDW (11.5-15.5) % Neutrophils # (1.3-7.7) k/uL Monocytes # (0-1.0) k/uL Sodium (137-145) mmol/L BUN (9-20) mg/dL Creatinine (0.66-1.25) mg/dL Glucose (74-99) mg/dL POC Glucose (mg/dL) 199 H 137 H 112 H (70-110) mg/dL Calcium (8.4-10.2) mg/dL Total Protein (6.3-8.2) g/dL Albumin (3.5-5.0) g/dL 05/13/24 05/13/24 05/13/24 Range/Units 00:31 01:10 02:16 WBC (3.8-10.6) k/uL RDW (11.5-15.5) % Neutrophils # (1.3-7.7) k/uL Monocytes # (0-1.0) k/uL Sodium (137-145) mmol/L BUN (9-20) mg/dL Creatinine (0.66-1.25) mg/dL Glucose (74-99) mg/dL POC Glucose (mg/dL) 117 H 118 H 196 H (70-110) mg/dL Calcium (8.4-10.2) mg/dL Total Protein (6.3-8.2) g/dL Albumin (3.5-5.0) g/dL 05/13/24 05/13/24 05/13/24 Range/Units 03:20 04:02 04:59 WBC (3.8-10.6) k/uL RDW (11.5-15.5) % Neutrophils # (1.3-7.7) k/uL Monocytes # (0-1.0) k/uL Sodium (137-145) mmol/L BUN (9-20) mg/dL Creatinine (0.66-1.25) mg/dL Glucose (74-99) mg/dL POC Glucose (mg/dL) 136 H 136 H 112 H (70-110) mg/dL Calcium (8.4-10.2) mg/dL Total Protein (6.3-8.2) g/dL Albumin (3.5-5.0) g/dL 05/13/24 05/13/24 05/13/24 Range/Units 06:06 06:31 06:31 WBC 17.9 H (3.8-10.6) k/uL RDW 15.6 H (11.5-15.5) % Neutrophils # 15.0 H (1.3-7.7) k/uL Monocytes # 1.3 H (0-1.0) k/uL Sodium 136 L (137-145) mmol/L BUN 110 H* (9-20) mg/dL Creatinine 2.23 H (0.66-1.25) mg/dL Glucose 161 H (74-99) mg/dL POC Glucose (mg/dL) 126 H (70-110) mg/dL Calcium 7.5 L (8.4-10.2) mg/dL Total Protein 5.5 L (6.3-8.2) g/dL Albumin 3.0 L (3.5-5.0) g/dL 05/13/24 05/13/24 05/13/24 Range/Units 07:05 08:00 09:15 WBC (3.8-10.6) k/uL RDW (11.5-15.5) % Neutrophils # (1.3-7.7) k/uL Monocytes # (0-1.0) k/uL Sodium (137-145) mmol/L BUN (9-20) mg/dL Creatinine (0.66-1.25) mg/dL Glucose (74-99) mg/dL POC Glucose (mg/dL) 203 H 219 H 169 H (70-110) mg/dL Calcium (8.4-10.2) mg/dL Total Protein (6.3-8.2) g/dL Albumin (3.5-5.0) g/dL 05/13/24 Range/Units 10:24 WBC (3.8-10.6) k/uL RDW (11.5-15.5) % Neutrophils # (1.3-7.7) k/uL Monocytes # (0-1.0) k/uL Sodium (137-145) mmol/L BUN (9-20) mg/dL Creatinine (0.66-1.25) mg/dL Glucose (74-99) mg/dL POC Glucose (mg/dL) 137 H (70-110) mg/dL Calcium (8.4-10.2) mg/dL Total Protein (6.3-8.2) g/dL Albumin (3.5-5.0) g/dL
[2024-05-13 11:11] LABS: Glucose,Whole Blood 107 mg/dL (70-110)
--- NOTE | 2024-05-13 11:58 | P.PN ---
Subjective Patient is seen for follow-up for acute kidney injury, cardiorenal associated with CHF exacerbation and volume overload. Currently being diuresed. Patient had a CT chest done yesterday which did not show significant pulmonary vascular congestion. His blood sugar was significantly elevated. Patient was also started on saline at 50 cc an hour. Labs from today show serum creatinine at 2.2 and BUN elevated at 110. Steroid dose has been decreased. Patient continues to complain of significant swelling in his lower extremities. Shortness of breath has improved. No hypotension noted No obvious GI bleed noted. Hemoglobin is 14.4 g/dL Objective - Vital Signs Vital signs: Vital Signs Temp 98.0 F 05/13/24 04:11 Pulse 76 05/13/24 09:36 Resp 16 05/13/24 08:00 BP 111/62 05/13/24 08:00 Pulse Ox 94 L 05/13/24 08:00 FiO2 Intake & Output 05/12/24 05/13/24 05/13/24 18:59 06:59 18:59 Intake Total 506.253 554.881 240 Output Total 1900 Balance -1393.747 554.881 240 Weight 83.8 kg Intake: Intake, IV Titration 26.253 74.881 0 Amount Insulin Regular 100 unit 26.253 74.881 0 In Sodium Chloride 0.9% 100 ml @ Titrate IV .Q0M [facility] Rx#:[id number] Oral 480 480 240 Output: Urine 1900 Other: Voiding Method Toilet Toilet Urinal Urinal # Voids 1 - Exam Patient is awake, comfortable, no acute distress Examination of the heart S1 and S2 Examination of the lungs bilateral breath sounds are heard Abdomen is soft nontender Examination of lower extremity shows edema 2+ bilaterally BLAST SETTER exam grossly intact - Labs CBC & Chem 7: 05/13/24 06:31 05/13/24 06:31 Labs: Abnormal Lab Results - Last 24 Hours (Table) 05/12/24 05/12/24 05/12/24 Range/Units 12:13 12:14 13:17 WBC (3.8-10.6) k/uL RDW (11.5-15.5) % Neutrophils # (1.3-7.7) k/uL Monocytes # (0-1.0) k/uL Sodium (137-145) mmol/L BUN (9-20) mg/dL Creatinine (0.66-1.25) mg/dL Glucose 509 H* (74-99) mg/dL POC Glucose (mg/dL) >600 H* >600 H* (70-110) mg/dL Calcium (8.4-10.2) mg/dL Total Protein (6.3-8.2) g/dL Albumin (3.5-5.0) g/dL 05/12/24 05/12/24 05/12/24 Range/Units 15:01 16:06 17:07 WBC (3.8-10.6) k/uL RDW (11.5-15.5) % Neutrophils # (1.3-7.7) k/uL Monocytes # (0-1.0) k/uL Sodium (137-145) mmol/L BUN (9-20) mg/dL Creatinine (0.66-1.25) mg/dL Glucose (74-99) mg/dL POC Glucose (mg/dL) 465 H 435 H 363 H (70-110) mg/dL Calcium (8.4-10.2) mg/dL Total Protein (6.3-8.2) g/dL Albumin (3.5-5.0) g/dL 05/12/24 05/12/24 05/12/24 Range/Units 18:09 19:02 20:04 WBC (3.8-10.6) k/uL RDW (11.5-15.5) % Neutrophils # (1.3-7.7) k/uL Monocytes # (0-1.0) k/uL Sodium (137-145) mmol/L BUN (9-20) mg/dL Creatinine (0.66-1.25) mg/dL Glucose (74-99) mg/dL POC Glucose (mg/dL) 493 H 469 H 271 H (70-110) mg/dL Calcium (8.4-10.2) mg/dL Total Protein (6.3-8.2) g/dL Albumin (3.5-5.0) g/dL 05/12/24 05/12/24 05/12/24 Range/Units 20:58 21:59 23:09 WBC (3.8-10.6) k/uL RDW (11.5-15.5) % Neutrophils # (1.3-7.7) k/uL Monocytes # (0-1.0) k/uL Sodium (137-145) mmol/L BUN (9-20) mg/dL Creatinine (0.66-1.25) mg/dL Glucose (74-99) mg/dL POC Glucose (mg/dL) 199 H 137 H 112 H (70-110) mg/dL Calcium (8.4-10.2) mg/dL Total Protein (6.3-8.2) g/dL Albumin (3.5-5.0) g/dL 05/13/24 05/13/24 05/13/24 Range/Units 00:31 01:10 02:16 WBC (3.8-10.6) k/uL RDW (11.5-15.5) % Neutrophils # (1.3-7.7) k/uL Monocytes # (0-1.0) k/uL Sodium (137-145) mmol/L BUN (9-20) mg/dL Creatinine (0.66-1.25) mg/dL Glucose (74-99) mg/dL POC Glucose (mg/dL) 117 H 118 H 196 H (70-110) mg/dL Calcium (8.4-10.2) mg/dL Total Protein (6.3-8.2) g/dL Albumin (3.5-5.0) g/dL 05/13/24 05/13/24 05/13/24 Range/Units 03:20 04:02 04:59 WBC (3.8-10.6) k/uL RDW (11.5-15.5) % Neutrophils # (1.3-7.7) k/uL Monocytes # (0-1.0) k/uL Sodium (137-145) mmol/L BUN (9-20) mg/dL Creatinine (0.66-1.25) mg/dL Glucose (74-99) mg/dL POC Glucose (mg/dL) 136 H 136 H 112 H (70-110) mg/dL Calcium (8.4-10.2) mg/dL Total Protein (6.3-8.2) g/dL Albumin (3.5-5.0) g/dL 05/13/24 05/13/24 05/13/24 Range/Units 06:06 06:31 06:31 WBC 17.9 H (3.8-10.6) k/uL RDW 15.6 H (11.5-15.5) % Neutrophils # 15.0 H (1.3-7.7) k/uL Monocytes # 1.3 H (0-1.0) k/uL Sodium 136 L (137-145) mmol/L BUN 110 H* (9-20) mg/dL Creatinine 2.23 H (0.66-1.25) mg/dL Glucose 161 H (74-99) mg/dL POC Glucose (mg/dL) 126 H (70-110) mg/dL Calcium 7.5 L (8.4-10.2) mg/dL Total Protein 5.5 L (6.3-8.2) g/dL Albumin 3.0 L (3.5-5.0) g/dL 05/13/24 05/13/24 05/13/24 Range/Units 07:05 08:00 09:15 WBC (3.8-10.6) k/uL RDW (11.5-15.5) % Neutrophils # (1.3-7.7) k/uL Monocytes # (0-1.0) k/uL Sodium (137-145) mmol/L BUN (9-20) mg/dL Creatinine (0.66-1.25) mg/dL Glucose (74-99) mg/dL POC Glucose (mg/dL) 203 H 219 H 169 H (70-110) mg/dL Calcium (8.4-10.2) mg/dL Total Protein (6.3-8.2) g/dL Albumin (3.5-5.0) g/dL 05/13/24 Range/Units 10:24 WBC (3.8-10.6) k/uL RDW (11.5-15.5) % Neutrophils # (1.3-7.7) k/uL Monocytes # (0-1.0) k/uL Sodium (137-145) mmol/L BUN (9-20) mg/dL Creatinine (0.66-1.25) mg/dL Glucose (74-99) mg/dL POC Glucose (mg/dL) 137 H (70-110) mg/dL Calcium (8.4-10.2) mg/dL Total Protein (6.3-8.2) g/dL Albumin (3.5-5.0) g/dL Assessment and Plan Assessment: 1. Acute kidney injury, cardiorenal, rule out urine retention. No significant hypotension noted. Currently off of angiotensin receptor blockers. UA is benign. No evidence of obstruction noted. No plans on dobutamine at this time. CT chest did not show significant pulmonary vascular congestion and diuretics were held. BUN disproportionately elevated from steroids. 2. Acute on chronic CHF with reduced EF of 40 to 45% on echocardiogram 3. Volume overload, likely worsened with use of steroids 4. Hypokalemia secondary to diuretics 5. Type 2 diabetes maintained on insulin 6. Chronic A-fib Plan: DC IV fluids Bladder scan showed to 70 mL of urine. Patient is encouraged to void and we will repeat a bladder scan later on today. Continue off of Cozaar Accurate I's and O's
[2024-05-13 12:30] LABS: Glucose,Whole Blood 127 mg/dL (70-110)
--- NOTE | 2024-05-13 13:07 | P.PN ---
Subjective Progress Note Date: 05/13/24 Principal diagnosis: Acute exacerbation of chronic systolic congestive heart failure and acute exacerbation of mild intermittent asthma with chronic cough This is a 59-year-old male patient with a history of obstructive sleep apnea maintained on CPAP, mild intermittent chronic bronchial asthma, lifelong non- smoker, hypertension, hyperlipidemia, diabetes mellitus, diabetic neuropathy, chronic kidney disease stage II, Black artery disease with previous stents and subsequent bypass grafting surgery. He presented here back on May 05, 2024 with complaints of shortness of breath, cough and congestion for 3 days prior. Chest x-ray revealed cardiomegaly with new small bilateral pleural effusions. White count 14.9. Hemoglobin 13.5. Platelets 187. Sodium 140. Potassium 4.3. Bicarb 23. BUN 67. Creatinine 2.1. Glucose 267. Follow-up chest x-ray revealed mild cardiomegaly with improved aeration of the lungs. He is seen this morning in consultation on the regular medical floor. He is awake and alert in no acute distress. He was still having issues with dry nonproductive cough. No fever or chills. Maintaining good O2 saturations in the mid 90s on room air. Hemodynamically stable. The patient is seen today May 10, 2024 in follow-up on the regular medical floor. He is currently sitting up at the bedside. Awake and alert in no acute distress. Much less cough and congestion today compared to yesterday. He is maintaining good O2 saturations in the 90s on room air. Ultrasound of the kidneys revealed no evidence of hydronephrosis. White count 15.1. Hemoglobin 12.6. Platelets 178. Sodium 141. Potassium 3.4. Bicarb 25. BUN 75. Creatinine 2.0. Glucose 239. He remains on DuoNeb inhalations, Symbicort, Decadron. Anticoagulated with Eliquis. Remains on Lantus and Humalog sliding scale. Remains on diuretics. The patient is seen today May 11, 2024 in follow-up on the regular medical floor. He is currently awake and alert in no acute distress. Sitting up at the bedside. Denies any worsening shortness of breath, cough or congestion. He is maintaining good O2 saturations in the 90s on room air. He is afebrile. Hemodynamically stable. He is continued on DuoNeb inhalations, Symbicort, Solu- Medrol. Anticoagulated with Eliquis. Remains on Tessalon Perles for his cough. Remains on IV diuretics. Continues to diurese well. White count 13.9. Hemoglobin 13.5. Platelets 180. Sodium 140. Potassium 3.3. Bicarb 25. BUN 88. Creatinine 2.2. Glucose 393. The patient is seen today May 12, 2024 in follow-up on the regular medical floor. He is currently resting in bed. Awake and alert in no acute distress. He denies any worsening shortness of breath, cough or congestion. He is maintaining good O2 saturations in the 90s on room air. He is continued on DuoNeb and elations, Symbicort, prednisone. He is anticoagulated with Eliquis. Remains on Lantus and Humalog sliding scale. Count 17.2. Hemoglobin 14.3. Platelets 223. Sodium 138. Potassium 3.3. Bicarb 27. BUN 96. Creatinine 2.2. Glucose 490. CT scan of the chest today revealed a small right sided pleural effusion. Linear atelectasis in the mid right lung. No focal consolidations. No suspicious nodules. No pneumothorax. Seen today on 05/13/2024, continues to have symptoms of weakness fatigue some shortness of breath, intermittent cough, no wheezing, CT of the chest is basically unremarkable except for minimal right streak atelectasis. There is no evidence of bronchiectasis no evidence of pneumonia and no evidence of congestive heart failure. Patient remains on bronchodilators, remains on prednisone which has been tapered, overall I believe the patient is doing well, however his blood sugars continue to run high intermittently, and his prednisone was cut down to 10 mg daily this was given mostly for his persistent cough. Antonia mallory was also placed on PPI for history of underlying GERD. Objective - Vital Signs Vital signs: Vital Signs Temp 98.0 F 05/13/24 04:11 Pulse 74 05/13/24 12:22 Resp 16 05/13/24 12:00 BP 114/67 05/13/24 12:00 Pulse Ox 95 05/13/24 12:00 FiO2 Intake & Output 05/12/24 05/13/24 05/13/24 18:59 06:59 18:59 Intake Total 506.253 554.881 240 Output Total 1900 Balance -1393.747 554.881 240 Weight 83.8 kg Intake: Intake, IV Titration 26.253 74.881 0 Amount Insulin Regular 100 unit 26.253 74.881 0 In Sodium Chloride 0.9% 100 ml @ Titrate IV .Q0M [facility] Rx#:[id number] Oral 480 480 240 Output: Urine 1900 Other: Voiding Method Toilet Toilet Urinal Urinal # Voids 1 3 - Exam GENERAL EXAM: Revealed 59-year-old white male in no distress HEAD: Normocephalic. EYES: Normal reaction of pupils, equal size. NOSE: Clear with pink turbinates. THROAT: No erythema or exudates. NECK: No masses, no JVD. CHEST: No chest wall deformity. LUNGS: Clear throughout no crackles rhonchi or wheezes CVS: S1 and S2 normal with no audible murmur, regular rhythm. ABDOMEN: No hepatosplenomegaly, normal bowel sounds, no guarding or rigidity. SKIN: No rashes CENTRAL NERVOUS SYSTEM: No focal deficits, tone is normal in all 4 extremities. EXTREMITIES: There is no peripheral edema. No clubbing, no cyanosis. Peripheral pulses are intact. Psychiatric: Depressed mood flat affect normal mental status. - Labs CBC & Chem 7: 05/13/24 06:31 05/13/24 06:31 Labs: Abnormal Lab Results - Last 24 Hours (Table) 05/12/24 05/12/24 05/12/24 Range/Units 13:17 15:01 16:06 WBC (3.8-10.6) k/uL RDW (11.5-15.5) % Neutrophils # (1.3-7.7) k/uL Monocytes # (0-1.0) k/uL Sodium (137-145) mmol/L BUN (9-20) mg/dL Creatinine (0.66-1.25) mg/dL Glucose 509 H* (74-99) mg/dL POC Glucose (mg/dL) 465 H 435 H (70-110) mg/dL Calcium (8.4-10.2) mg/dL Total Protein (6.3-8.2) g/dL Albumin (3.5-5.0) g/dL 05/12/24 05/12/24 05/12/24 Range/Units 17:07 18:09 19:02 WBC (3.8-10.6) k/uL RDW (11.5-15.5) % Neutrophils # (1.3-7.7) k/uL Monocytes # (0-1.0) k/uL Sodium (137-145) mmol/L BUN (9-20) mg/dL Creatinine (0.66-1.25) mg/dL Glucose (74-99) mg/dL POC Glucose (mg/dL) 363 H 493 H 469 H (70-110) mg/dL Calcium (8.4-10.2) mg/dL Total Protein (6.3-8.2) g/dL Albumin (3.5-5.0) g/dL 05/12/24 05/12/24 05/12/24 Range/Units 20:04 20:58 21:59 WBC (3.8-10.6) k/uL RDW (11.5-15.5) % Neutrophils # (1.3-7.7) k/uL Monocytes # (0-1.0) k/uL Sodium (137-145) mmol/L BUN (9-20) mg/dL Creatinine (0.66-1.25) mg/dL Glucose (74-99) mg/dL POC Glucose (mg/dL) 271 H 199 H 137 H (70-110) mg/dL Calcium (8.4-10.2) mg/dL Total Protein (6.3-8.2) g/dL Albumin (3.5-5.0) g/dL 05/12/24 05/13/24 05/13/24 Range/Units 23:09 00:31 01:10 WBC (3.8-10.6) k/uL RDW (11.5-15.5) % Neutrophils # (1.3-7.7) k/uL Monocytes # (0-1.0) k/uL Sodium (137-145) mmol/L BUN (9-20) mg/dL Creatinine (0.66-1.25) mg/dL Glucose (74-99) mg/dL POC Glucose (mg/dL) 112 H 117 H 118 H (70-110) mg/dL Calcium (8.4-10.2) mg/dL Total Protein (6.3-8.2) g/dL Albumin (3.5-5.0) g/dL 05/13/24 05/13/24 05/13/24 Range/Units 02:16 03:20 04:02 WBC (3.8-10.6) k/uL RDW (11.5-15.5) % Neutrophils # (1.3-7.7) k/uL Monocytes # (0-1.0) k/uL Sodium (137-145) mmol/L BUN (9-20) mg/dL Creatinine (0.66-1.25) mg/dL Glucose (74-99) mg/dL POC Glucose (mg/dL) 196 H 136 H 136 H (70-110) mg/dL Calcium (8.4-10.2) mg/dL Total Protein (6.3-8.2) g/dL Albumin (3.5-5.0) g/dL 05/13/24 05/13/24 05/13/24 Range/Units 04:59 06:06 06:31 WBC 17.9 H (3.8-10.6) k/uL RDW 15.6 H (11.5-15.5) % Neutrophils # 15.0 H (1.3-7.7) k/uL Monocytes # 1.3 H (0-1.0) k/uL Sodium (137-145) mmol/L BUN (9-20) mg/dL Creatinine (0.66-1.25) mg/dL Glucose (74-99) mg/dL POC Glucose (mg/dL) 112 H 126 H (70-110) mg/dL Calcium (8.4-10.2) mg/dL Total Protein (6.3-8.2) g/dL Albumin (3.5-5.0) g/dL 05/13/24 05/13/24 05/13/24 Range/Units 06:31 07:05 08:00 WBC (3.8-10.6) k/uL RDW (11.5-15.5) % Neutrophils # (1.3-7.7) k/uL Monocytes # (0-1.0) k/uL Sodium 136 L (137-145) mmol/L BUN 110 H* (9-20) mg/dL Creatinine 2.23 H (0.66-1.25) mg/dL Glucose 161 H (74-99) mg/dL POC Glucose (mg/dL) 203 H 219 H (70-110) mg/dL Calcium 7.5 L (8.4-10.2) mg/dL Total Protein 5.5 L (6.3-8.2) g/dL Albumin 3.0 L (3.5-5.0) g/dL 05/13/24 05/13/24 05/13/24 Range/Units 09:15 10:24 12:29 WBC (3.8-10.6) k/uL RDW (11.5-15.5) % Neutrophils # (1.3-7.7) k/uL Monocytes # (0-1.0) k/uL Sodium (137-145) mmol/L BUN (9-20) mg/dL Creatinine (0.66-1.25) mg/dL Glucose (74-99) mg/dL POC Glucose (mg/dL) 169 H 137 H 127 H (70-110) mg/dL Calcium (8.4-10.2) mg/dL Total Protein (6.3-8.2) g/dL Albumin (3.5-5.0) g/dL Assessment and Plan Assessment: Impression: Acute exacerbation of mild intermittent chronic bronchial asthma versus post infectious cough syndrome, possible acid reflux Acute exacerbation of chronic systolic congestive heart failure with ejection fraction 40 to 45% Acute kidney injury secondary to suspected cardiorenal syndrome, diuretics Diabetes mellitus, type II Diabetic neuropathy Coronary artery disease with previous stents/coronary artery bypass grafting Ischemic cardiomyopathy Hyperlipidemia Hypertension History of congestive heart failure Recommendation: Reassured about his CT of the chest Continue bronchodilators including Symbicort and DuoNeb Continue prednisone 10 mg daily Continue close monitoring of his blood sugars Continue PPI for his GERD Consider discharge planning once cleared by other consultants and follow-up on outpatient basis Time with Patient: Less than 30
[2024-05-13 13:08] LABS: Glucose,Whole Blood 250 mg/dL (70-110)
[2024-05-13 14:14] LABS: Glucose,Whole Blood 309 mg/dL (70-110)
[2024-05-13 15:28] LABS: Glucose,Whole Blood 220 mg/dL (70-110)
[2024-05-13 16:19] LABS: Glucose,Whole Blood 218 mg/dL (70-110)
[2024-05-13] MEDS: BENZONATATE 100 MG CAP PO SCH (16:22)
[2024-05-13 17:02] LABS: Glucose,Whole Blood 192 mg/dL (70-110)
[2024-05-13 18:14] LABS: Glucose,Whole Blood 197 mg/dL (70-110)
[2024-05-13 19:27] LABS: Glucose,Whole Blood 261 mg/dL (70-110)
[2024-05-13 20:20] LABS: Glucose,Whole Blood 247 mg/dL (70-110)
[2024-05-13 21:07] LABS: Glucose,Whole Blood 235 mg/dL (70-110)
[2024-05-13 22:06] LABS: Glucose,Whole Blood 209 mg/dL (70-110)
[2024-05-13 23:05] LABS: Glucose,Whole Blood 211 mg/dL (70-110)
[2024-05-14 00:02] LABS: Glucose,Whole Blood 165 mg/dL (70-110)
[2024-05-14 01:08] LABS: Glucose,Whole Blood 93 mg/dL (70-110)
[2024-05-14 02:05] LABS: Glucose,Whole Blood 123 mg/dL (70-110)
[2024-05-14 03:07] LABS: Glucose,Whole Blood 188 mg/dL (70-110)
[2024-05-14 04:00] LABS: Glucose,Whole Blood 183 mg/dL (70-110)
[2024-05-14 05:23] LABS: Glucose,Whole Blood 206 mg/dL (70-110)
[2024-05-14 06:13] LABS: Glucose,Whole Blood 176 mg/dL (70-110)
[2024-05-14 06:52] LABS: Basophils % (A) 0 %; Eosinophils # (A) 0.1 k/uL (0-0.7); Eosinophils % (A) 1 %; HCT 44.4 % (39.0-53.0); Hypochromasia Slight; Lymphocytes # (A) 1.4 k/uL (1.0-4.8); Lymphocytes % (A) 9 %; MCH 25.2 pg (25.0-35.0); MCHC 31.6 g/dL (31.0-37.0); MCV 79.7 fL (80.0-100.0); Mean Platelet Volume 9.6; Monocytes # (A) 1.3 k/uL (0-1.0); Monocytes % (A) 8 %; Neutrophils # (A) 12.5 k/uL (1.3-7.7); Neutrophils % (A) 80 %; Platelet Count 231 k/uL (150-450); RBC 5.57 m/uL (4.30-5.90); RDW 15.5 % (11.5-15.5); WBC 15.6 k/uL (3.8-10.6)
[2024-05-14 07:07] LABS: Glucose,Whole Blood 253 mg/dL (70-110)
[2024-05-14 07:13] LABS: ALT 46 U/L (4-49); AST 29 U/L (17-59); African American GFR (CKD) 31 (>60 ml/min/1.73 sqM); Albumin 3.1 g/dL (3.5-5.0); Alkaline Phosphatase 102 U/L (38-126); Anion Gap 8 mmol/L; Calcium 7.9 mg/dL (8.4-10.2); Carbon Dioxide 28 mmol/L (22-30); Chloride 100 mmol/L (98-107); Glucose 190 mg/dL (74-99); Non-African American GFR(CKD) 27 (>60 ml/min/1.73 sqM); Sodium 136 mmol/L (137-145); Total Bilirubin 0.7 mg/dL (0.2-1.3); Total Protein 5.6 g/dL (6.3-8.2)
[2024-05-14 07:14] LABS: Blood Urea Nitrogen 111 mg/dL (9-20)
[2024-05-14 08:01] LABS: Glucose,Whole Blood 309 mg/dL (70-110)
[2024-05-14 09:00] LABS: Glucose,Whole Blood 322 mg/dL (70-110)
[2024-05-14] MEDS: predniSONE 10 MG TAB PO SCH (09:07)
[2024-05-14 09:58] LABS: Glucose,Whole Blood 312 mg/dL (70-110)
--- NOTE | 2024-05-14 10:44 | P.PN ---
Subjective Progress Note Date: 05/14/24 HISTORY OF PRESENT ILLNESS: This is a 59-year-old male patient of rosita and Dr. Ga with past medical history of coronary artery disease status post 6 vessel CABG 2006 with MAE to LAD, saphenous venous graft to the PDA, saphenous venous graft to the obtuse marginal one, radial artery to the obtuse marginal branch 2 and saphenous venous graft to the obtuse marginal 3 followed by heart catheterization with PCI and stent of the saphenous venous graft to the RCA in 2015 at which time he pres ented with non-ST elevated myocardial infarction. Most recent cardiac catheterization was performed on 04/10/2022 which revealed severe triple-vessel coronary artery disease with a patent ramus intermediate, patent SVG to the OM, patent MAE to the LAD, and occluded saphenous vein graft to the RCA which is chronic from before. Medical therapy was advised at that time. History of hypertension, hypertensive cardiovascular disease with left ventricular hypertrophy, hyperlipidemia, ischemic cardiomyopathy, paroxysmal atrial fibrillation, currently on Eliquis, diabetes mellitus type 2 with diabetic polyneuropathy, hyperlipidemia, asthma, obstructive sleep apnea on CPAP, chronic low back pain, DVT in the past, patient was recently hospitalized at [facility] between 06/05/2023 and discharged 06/15/2023 after he was admitted for GI bleed due to esophageal ulcer. Patient had EGD and incomplete colonoscopy due to poor prep at that time. Patient presented to the ER at [facility] due to increased cough and increased shortness of breath, was complaining of increased edema in both legs and ws seen by Isaiah Pena and PCR was negative for COVID-19. Influenza A, B annd RSV, CXR showed evidence of CHF with bilateral pleural effusion, with elevated BNP, was started on Furosemide 40 mg IVP q 8 h and was admitted to the hospital for acute on chronic systolic heart failure 05/06: Patient sitting up in bed in no apparent distress, he is feeling better today, he denies any chest pain, shortness of breath, he continues to have a significant coughing, no phlegm production, he continues to complain of pleurisy in his chest, I will start the patient on Solu-Medrol 40 mg a push every 8 ho Pio bianchioNeb 3 nebulization 4 times every day, also Pulmicort 1 mg nebulization twice every day, follow-up with the patient very closely he swelling is a bit better today, his potassium is down we will start potassium supplement 20 mg orally twice every day, follow-up with the patient labs in the next 24 hours, continue current treatment plan, patient was seen in consultation by cardiology recommended to continue current treatment plan 05/07: Patient is feeling better today, he is having less coughing, no chest pain or shortness of breath, he continues to have minimal pleurisy, he has been star raquel on Solu-Medrol 40 mg IV push every 8 hours we will decrease that to every 12 hours, continue with Tessalon Perles 200 mg orally 3 times every day, continue with nebulized treatment in the form of DuoNeb and Pulmicort, hopefully patient will be able to be discharged home in the next 24 hours. Allergy has seen the patient, and they recommended to continue same treatment plan. I will decrease IV Lasix to 40 mg IV push every 12 hours 05/08: Patient sitting up in bed he is complaining of increased swelling in the right upper extremity more than the left upper extremity, continues to have swel ling both lower extremity, he switched to Lasix 40 mg orally twice every day, discontinued Solu-Medrol, start the patient on prednisone 40 mg once every day, continue Zithromax 500 mg once every day, chest x-ray was done showed improvement in the aeration of the lung, continue current treatment plan, keep the patient in the hospital 05/09: Patient is feeling a bit better today, he continues to have some swelling in both lower extremities, he denies any chest pain, less short of breath, he continues to have some cough, he was switched to Symbicort 160/4.5 mcg 2 puffs in elation twice every day he continues to be on DuoNeb treatment nebulization 4 times every day, oxygen support, was seen by cardiology yesterday recommended to continue Lasix 40 mg orally twice every day, monitor input and output and daily weight, increase activity, follow-up with the patient very closely, his kidney function just appears to be worse, he was started on Zaroxolyn 2.5 mg orally today I will discontinue Farxiga, discontinue losartan, monitor the patient blood pressure very closely, ultrasound of the kidneys will be done, nephrology consultation Dr. Pope pulmonary consultation was obtained from Dr. Aleln as well. 05/10: Patient is laying down in bed not feeling well at all, he continues to have significant edema in both upper and lower extremities, continue Lasix 40 mg orally twice every day, he was seen in consultation by nephrology who recommended to have a bladder scan since the patient I believe he is retaining urine, even though the ultrasound did not show evidence of any hydronephrosis at this time, there is a lesion in the kidney that need to be evaluated as an outpatient, we will discuss with cardiology and nephrology the possibility of starting the patient on dobutamine drip at this time, to try to improve his cardiac output, to increase his kidney perfusion, keep the patient off losartan, keep the patient off Farxiga for now, monitor the patient input and output and daily weight, avoid nephrotoxins. 05/11: Patient is sitting at the edge of the bed, he is feeling better today, he was taken off dexamethasone since his blood glucose level is all the way up to 400, he was maintained on DuoNeb, as well as Symbicort, he feels a bit better today, he is urinating well, his BUN is still elevated, his creatinine is up to 2.2, he has been on frusemide 40 mg orally twice every day Zaroxolyn 2.5 mg orally once every day will continue with that, follow-up with the patient very closely, nephrology/cardiology/pulmonary medicine is following, patient will be off losartan Farxiga and metformin for now, repeat labs tomorrow morning. 05/12: Patient is not feeling well today, he is kidney function is worsening and a daily basis, I will discontinue metolazone, discontinue Lasix at this time, start the patient on small dose of IV fluid in the form of normal saline 50 cc an hour, patient had a CT scan of the chest without contrast that showed evidence of minimal pleural effusion not significant, patient edema has gone down quite a bit, patient blood glucose level is not controlled, I will switch the patient to insulin drip at this point in time, patient will be transferred to the [facility] area, monitor the patient very closely, follow-up with the patient input and output and daily weight, I will monitor the patient urine output very closely, we will check the patient again in the next 24 hours, patient current condition continues to be worsened we will continue to monitor. 05/13: Patient is sitting up in bed he continues to feel about the same, he continues to be somewhat short of breath, he continues to have some edema in both lower extremities, he continued to have some cough no phlegm production, he was started on insulin drip yesterday, his blood glucose level is much better today, will continue with that, follow-up with the patient very closely, his BUN is a lot worse, 102, he continued to have an acute kidney injury due to acute tubular necrosis and cardiorenal syndrome, he has been started on normal saline at 50 cc an hour, will follow-up with the patient very closely, discussed with nephrology the plan of action at this point in time as the patient kidney function is worsened. Start the patient on protein drink in the form of Glucerna 3 times every day 05/14: Patient is assessed sitting up in bed denies any chest pain, he is less short of breath, he continues to have increased swelling in both lower extremities, he has no coughing at this point, he has no hemoptysis, he continues to have increased abdominal distention, he is not urinating as much, his BUN is up to 111, and creatinine 2.47, continue to have hyperglycemia, continue insulin drip for during the day, I will transition to Lantus this evening at 42 units and Humalog at 11 units with each meal 3 times every day, along with a sliding scale insulin but for now we will continue with insulin drip until his blood glucose level around 125 to 145 mg/dL. REVIEW OF SYSTEMS: Constitutional: No documented fever, no chills, no night sweats. No weight change. Positive for weakness, positive for fatigue, no lethargy. No daytime sleepiness. HEENT: No headache. No blurred vision or double vision, no loss of vision. No loss of Hearing, no ringing in the ears, no dizziness. No nasal drainage or congestion. No epistaxis. No sore throat. Lungs: last shortness of breath, occasional cough, no sputum production. no wheezing. Reports dyspnea with activity. Cardiovascular: no chest pain, positive for lower extremity edema. No palpitations. No paroxysmal nocturnal dyspnea. No orthopnea. positive for lightheadedness or dizziness. No syncopal episodes. Abdominal: Reports no abdominal pain. no nausea, vomiting. No diarrhea. No constipation. No bloody or tarry stools reports loss of appetite. Genitourinary: No dysuria, decreased urinary output, urgency. No urinary retention. Musculoskeletal: No myalgias. positive for muscle weakness, no gait dysfunction, frequent falls. No back pain. No neck pain. Integumentary: scabbed wounds to left caballero , no lesions. No rash or pruritus. No unusual bruising. No change in hair or nails. Neurologic: No aphasia. Minimal facial droop. No change in mentation. No head injury. No headache, minimal drift. Psychiatric: positive for depression. No anxiety. No mood swings. Endocrine: abnormal blood sugars. No weight change. PHYSICAL EXAMINATION: General: 59-year-old male laying down in no respiratory distress. HEENT: Head is atraumatic, normocephalic, pupils were equal round reactive to light and recommendation, extraocular muscle movement were intact, sclera nonicteric, conjunctivae were pale, mucous membranes of the mouth are somewhat dry. Neck: Supple, no JVP, normal carotid upstroke bilaterally, no lymphadenopathy. Chest: Decreased breath sounds at the bases, no rhonchi, no expiratory wheezes, no chest wall tenderness, no intercostal retractions Heart: First heart sound is normal, second heart sounds normal, there is systolic ejection murmur 2/6 located in the left sternal border. Abdomen: Soft, nontender, nondistended, positive bowel sounds, there is no hepatosplenomegaly Extremities: There is +2 edema no calf tenderness DP +1 bilaterally. Neurologic examination: Patient is awake alert and oriented X 3, cranial nerves II-12 appear grossly intact, muscle power were 4 out of 5 in upper extremities and 4 out of 5 in bilateral lower extremities, deep tendon reflexes normal bilat erally. Minimal right facial droop, and right leg weakness. ASSESSMENT AND PLAN: 1. Acute on chronic systolic heart failure . Patient was taken off Lasix and metolazone for today, due to his current acute kidney injury patient was taken off losartan, Farxiga, due to acute kidney injury he was maintained on carvedilol 25 mg orally twice every day hydralazine 25 mg 3 times every day, follow-up with the patient very closely. 2. Acute kidney injury due to cardiorenal syndrome And vasomotor nephropathy. His kidney function does continue to worsen his BUN is 111 and creatinine 2.47 today continue to increase oral intake of fluid, IV fluid was discontinued by nephrology yesterday, due to his fluid status, monitor the patient's symptoms very closely, repeat the patient labs tomorrow morning, ultrasound did not show evidence of hydronephrosis, bladder scan did not show any evidence of any urinary retention at this time, 3. Acute on chronic bronchitis. Much better now no evidence of any acute abnormalities on the CT scan of the chest that was done by pulmonary medicine, discontinue prednisone, continue nebulized treatment as needed, oxygen support as needed he is currently on room air. 4. Hypertension and hypertensive cardiovascular disease. Off losartan, continue patient on Carvedilol 25 mg orally twice every day, continue Amlodipine 5 mg po daily, continue with Hydralazine as well and monitor BP very closely. 5. Diabetes mellitus type 2 with steroid-induced hyperglycemia. Patient is currently on insulin drip currently requiring 6 units/h, we will wait until his blood glucose level is down to 125 to 145 mg/dL then will transition the patient into Lantus at 42 units at bedtime along with the Humalog 11 units before each meal and sliding scale insulin. 6. Coronary artery disease status post CABG 6 as well as PCI in the past. Continue patient on ASA 81 mg once every day, Carvedilol 25 mg orally twice every day, continue patient on atorvastatin 80 mg orally once every day, continue Zetia 10 mg orally once every day. 7. Hyperlipidemia. Continue patient on atorvastatin 80 mg once every day, continue Zetia 10 mg orally once every day, monitor lipid panel, keep LDL 55-70. 8. Diabetic polyneuropathy. decrease gabapentin to 300 mg at bedtime. 9. Obstructive sleep apnea. Patient does have a CPAP at home. 10. Paroxysmal atrial fibrillation . Continue patient on Coreg 25 mg orally twice every day, Eliquis 5 mg po bid. 11. DVT prophylaxis. Continue Eliquis 5 mg orally twice every day. 12. GI prophylaxis. Continue Protonix 40 mg orally once every day 13. History of CVA in the past recovered well, we will continue with Atorvastatin 80 mg po daily and Eliquis for life 14. Hypokalemia status post replacement. Decrease potassium supplement to once every day. 15. Overall prognosis is very guarded. Objective - Vital Signs Vital signs: Vital Signs Temp 97.8 F 05/14/24 03:02 Pulse 76 05/14/24 08:11 Resp 16 05/14/24 08:00 BP 136/71 05/14/24 08:00 Pulse Ox 94 L 05/14/24 08:00 FiO2 Intake & Output 05/13/24 05/14/24 05/14/24 18:59 06:59 18:59 Intake Total 720 324.719 Output Total 650 975 Balance 70 -650.281 Weight 87 kg Intake: Intake, IV Titration 0 87.719 Amount Insulin Regular 100 unit 0 87.719 In Sodium Chloride 0.9% 100 ml @ Titrate IV .Q0M [facility] Rx#:[id number] Oral 720 237 Output: Urine 650 975 Other: Voiding Method Toilet Toilet Urinal Urinal # Voids 3 1 - Labs CBC & Chem 7: 05/14/24 06:28 05/14/24 06:28 Labs: Abnormal Lab Results - Last 24 Hours (Table) 05/13/24 05/13/24 05/13/24 Range/Units 10:24 12:29 13:06 WBC (3.8-10.6) k/uL MCV (80.0-100.0) fL Neutrophils # (1.3-7.7) k/uL Monocytes # (0-1.0) k/uL Sodium (137-145) mmol/L BUN (9-20) mg/dL Creatinine (0.66-1.25) mg/dL Glucose (74-99) mg/dL POC Glucose (mg/dL) 137 H 127 H 250 H (70-110) mg/dL Calcium (8.4-10.2) mg/dL Total Protein (6.3-8.2) g/dL Albumin (3.5-5.0) g/dL 05/13/24 05/13/24 05/13/24 Range/Units 14:12 15:27 16:17 WBC (3.8-10.6) k/uL MCV (80.0-100.0) fL Neutrophils # (1.3-7.7) k/uL Monocytes # (0-1.0) k/uL Sodium (137-145) mmol/L BUN (9-20) mg/dL Creatinine (0.66-1.25) mg/dL Glucose (74-99) mg/dL POC Glucose (mg/dL) 309 H 220 H 218 H (70-110) mg/dL Calcium (8.4-10.2) mg/dL Total Protein (6.3-8.2) g/dL Albumin (3.5-5.0) g/dL 05/13/24 05/13/24 05/13/24 Range/Units 17:00 18:12 19:25 WBC (3.8-10.6) k/uL MCV (80.0-100.0) fL Neutrophils # (1.3-7.7) k/uL Monocytes # (0-1.0) k/uL Sodium (137-145) mmol/L BUN (9-20) mg/dL Creatinine (0.66-1.25) mg/dL Glucose (74-99) mg/dL POC Glucose (mg/dL) 192 H 197 H 261 H (70-110) mg/dL Calcium (8.4-10.2) mg/dL Total Protein (6.3-8.2) g/dL Albumin (3.5-5.0) g/dL 05/13/24 05/13/24 05/13/24 Range/Units 20:19 21:06 22:04 WBC (3.8-10.6) k/uL MCV (80.0-100.0) fL Neutrophils # (1.3-7.7) k/uL Monocytes # (0-1.0) k/uL Sodium (137-145) mmol/L BUN (9-20) mg/dL Creatinine (0.66-1.25) mg/dL Glucose (74-99) mg/dL POC Glucose (mg/dL) 247 H 235 H 209 H (70-110) mg/dL Calcium (8.4-10.2) mg/dL Total Protein (6.3-8.2) g/dL Albumin (3.5-5.0) g/dL 05/13/24 05/14/24 05/14/24 Range/Units 23:03 00:00 02:04 WBC (3.8-10.6) k/uL MCV (80.0-100.0) fL Neutrophils # (1.3-7.7) k/uL Monocytes # (0-1.0) k/uL Sodium (137-145) mmol/L BUN (9-20) mg/dL Creatinine (0.66-1.25) mg/dL Glucose (74-99) mg/dL POC Glucose (mg/dL) 211 H 165 H 123 H (70-110) mg/dL Calcium (8.4-10.2) mg/dL Total Protein (6.3-8.2) g/dL Albumin (3.5-5.0) g/dL 05/14/24 05/14/24 05/14/24 Range/Units 03:06 03:58 05:22 WBC (3.8-10.6) k/uL MCV (80.0-100.0) fL Neutrophils # (1.3-7.7) k/uL Monocytes # (0-1.0) k/uL Sodium (137-145) mmol/L BUN (9-20) mg/dL Creatinine (0.66-1.25) mg/dL Glucose (74-99) mg/dL POC Glucose (mg/dL) 188 H 183 H 206 H (70-110) mg/dL Calcium (8.4-10.2) mg/dL Total Protein (6.3-8.2) g/dL Albumin (3.5-5.0) g/dL 05/14/24 05/14/24 05/14/24 Range/Units 06:11 06:28 06:28 WBC 15.6 H (3.8-10.6) k/uL MCV 79.7 L (80.0-100.0) fL Neutrophils # 12.5 H (1.3-7.7) k/uL Monocytes # 1.3 H (0-1.0) k/uL Sodium 136 L (137-145) mmol/L BUN 111 H* (9-20) mg/dL Creatinine 2.47 H (0.66-1.25) mg/dL Glucose 190 H (74-99) mg/dL POC Glucose (mg/dL) 176 H (70-110) mg/dL Calcium 7.9 L (8.4-10.2) mg/dL Total Protein 5.6 L (6.3-8.2) g/dL Albumin 3.1 L (3.5-5.0) g/dL 05/14/24 05/14/24 05/14/24 Range/Units 07:05 07:59 08:58 WBC (3.8-10.6) k/uL MCV (80.0-100.0) fL Neutrophils # (1.3-7.7) k/uL Monocytes # (0-1.0) k/uL Sodium (137-145) mmol/L BUN (9-20) mg/dL Creatinine (0.66-1.25) mg/dL Glucose (74-99) mg/dL POC Glucose (mg/dL) 253 H 309 H 322 H (70-110) mg/dL Calcium (8.4-10.2) mg/dL Total Protein (6.3-8.2) g/dL Albumin (3.5-5.0) g/dL
[2024-05-14 11:17] LABS: Glucose,Whole Blood 236 mg/dL (70-110)
--- NOTE | 2024-05-14 11:53 | P.PN ---
Subjective Patient is seen for follow-up for acute kidney injury, cardiorenal associated with CHF exacerbation and volume overload. Status post diuresis Patient had a CT chest done yesterday which did not show significant pulmonary vascular congestion. His blood sugar was significantly elevated and patient is maintained on insulin drip. Labs from today show serum creatinine at 2.47 and BUN elevated at 111. Steroids now discontinued. Patient continues to complain of significant swelling in his lower extremities. Shortness of breath has improved. No hypotension noted No obvious GI bleed noted. Objective - Vital Signs Vital signs: Vital Signs Temp 97.8 F 05/14/24 03:02 Pulse 70 05/14/24 11:30 Resp 16 05/14/24 08:00 BP 136/71 05/14/24 08:00 Pulse Ox 94 L 05/14/24 08:00 FiO2 Intake & Output 05/13/24 05/14/24 05/14/24 18:59 06:59 18:59 Intake Total 720 324.719 Output Total 650 975 Balance 70 -650.281 Weight 87 kg Intake: Intake, IV Titration 0 87.719 Amount Insulin Regular 100 unit 0 87.719 In Sodium Chloride 0.9% 100 ml @ Titrate IV .Q0M [facility] Rx#:[id number] Oral 720 237 Output: Urine 650 975 Other: Voiding Method Toilet Toilet Toilet Urinal Urinal Urinal # Voids 3 1 - Exam Patient is awake, comfortable, no acute distress Examination of the heart S1 and S2 Examination of the lungs bilateral breath sounds are heard Abdomen is soft nontender Examination of lower extremity shows edema 2+ bilaterally [employer] exam grossly intact - Labs CBC & Chem 7: 05/14/24 06:28 05/14/24 06:28 Labs: Abnormal Lab Results - Last 24 Hours (Table) 05/13/24 05/13/24 05/13/24 Range/Units 12:29 13:06 14:12 WBC (3.8-10.6) k/uL MCV (80.0-100.0) fL Neutrophils # (1.3-7.7) k/uL Monocytes # (0-1.0) k/uL Sodium (137-145) mmol/L BUN (9-20) mg/dL Creatinine (0.66-1.25) mg/dL Glucose (74-99) mg/dL POC Glucose (mg/dL) 127 H 250 H 309 H (70-110) mg/dL Calcium (8.4-10.2) mg/dL Total Protein (6.3-8.2) g/dL Albumin (3.5-5.0) g/dL 05/13/24 05/13/24 05/13/24 Range/Units 15:27 16:17 17:00 WBC (3.8-10.6) k/uL MCV (80.0-100.0) fL Neutrophils # (1.3-7.7) k/uL Monocytes # (0-1.0) k/uL Sodium (137-145) mmol/L BUN (9-20) mg/dL Creatinine (0.66-1.25) mg/dL Glucose (74-99) mg/dL POC Glucose (mg/dL) 220 H 218 H 192 H (70-110) mg/dL Calcium (8.4-10.2) mg/dL Total Protein (6.3-8.2) g/dL Albumin (3.5-5.0) g/dL 05/13/24 05/13/24 05/13/24 Range/Units 18:12 19:25 20:19 WBC (3.8-10.6) k/uL MCV (80.0-100.0) fL Neutrophils # (1.3-7.7) k/uL Monocytes # (0-1.0) k/uL Sodium (137-145) mmol/L BUN (9-20) mg/dL Creatinine (0.66-1.25) mg/dL Glucose (74-99) mg/dL POC Glucose (mg/dL) 197 H 261 H 247 H (70-110) mg/dL Calcium (8.4-10.2) mg/dL Total Protein (6.3-8.2) g/dL Albumin (3.5-5.0) g/dL 05/13/24 05/13/24 05/13/24 Range/Units 21:06 22:04 23:03 WBC (3.8-10.6) k/uL MCV (80.0-100.0) fL Neutrophils # (1.3-7.7) k/uL Monocytes # (0-1.0) k/uL Sodium (137-145) mmol/L BUN (9-20) mg/dL Creatinine (0.66-1.25) mg/dL Glucose (74-99) mg/dL POC Glucose (mg/dL) 235 H 209 H 211 H (70-110) mg/dL Calcium (8.4-10.2) mg/dL Total Protein (6.3-8.2) g/dL Albumin (3.5-5.0) g/dL 05/14/24 05/14/24 05/14/24 Range/Units 00:00 02:04 03:06 WBC (3.8-10.6) k/uL MCV (80.0-100.0) fL Neutrophils # (1.3-7.7) k/uL Monocytes # (0-1.0) k/uL Sodium (137-145) mmol/L BUN (9-20) mg/dL Creatinine (0.66-1.25) mg/dL Glucose (74-99) mg/dL POC Glucose (mg/dL) 165 H 123 H 188 H (70-110) mg/dL Calcium (8.4-10.2) mg/dL Total Protein (6.3-8.2) g/dL Albumin (3.5-5.0) g/dL 05/14/24 05/14/24 05/14/24 Range/Units 03:58 05:22 06:11 WBC (3.8-10.6) k/uL MCV (80.0-100.0) fL Neutrophils # (1.3-7.7) k/uL Monocytes # (0-1.0) k/uL Sodium (137-145) mmol/L BUN (9-20) mg/dL Creatinine (0.66-1.25) mg/dL Glucose (74-99) mg/dL POC Glucose (mg/dL) 183 H 206 H 176 H (70-110) mg/dL Calcium (8.4-10.2) mg/dL Total Protein (6.3-8.2) g/dL Albumin (3.5-5.0) g/dL 05/14/24 05/14/24 05/14/24 Range/Units 06:28 06:28 07:05 WBC 15.6 H (3.8-10.6) k/uL MCV 79.7 L (80.0-100.0) fL Neutrophils # 12.5 H (1.3-7.7) k/uL Monocytes # 1.3 H (0-1.0) k/uL Sodium 136 L (137-145) mmol/L BUN 111 H* (9-20) mg/dL Creatinine 2.47 H (0.66-1.25) mg/dL Glucose 190 H (74-99) mg/dL POC Glucose (mg/dL) 253 H (70-110) mg/dL Calcium 7.9 L (8.4-10.2) mg/dL Total Protein 5.6 L (6.3-8.2) g/dL Albumin 3.1 L (3.5-5.0) g/dL 05/14/24 05/14/24 05/14/24 Range/Units 07:59 08:58 09:56 WBC (3.8-10.6) k/uL MCV (80.0-100.0) fL Neutrophils # (1.3-7.7) k/uL Monocytes # (0-1.0) k/uL Sodium (137-145) mmol/L BUN (9-20) mg/dL Creatinine (0.66-1.25) mg/dL Glucose (74-99) mg/dL POC Glucose (mg/dL) 309 H 322 H 312 H (70-110) mg/dL Calcium (8.4-10.2) mg/dL Total Protein (6.3-8.2) g/dL Albumin (3.5-5.0) g/dL 05/14/24 Range/Units 11:16 WBC (3.8-10.6) k/uL MCV (80.0-100.0) fL Neutrophils # (1.3-7.7) k/uL Monocytes # (0-1.0) k/uL Sodium (137-145) mmol/L BUN (9-20) mg/dL Creatinine (0.66-1.25) mg/dL Glucose (74-99) mg/dL POC Glucose (mg/dL) 236 H (70-110) mg/dL Calcium (8.4-10.2) mg/dL Total Protein (6.3-8.2) g/dL Albumin (3.5-5.0) g/dL Assessment and Plan Assessment: 1. Acute kidney injury, cardiorenal, status post diuresis. Postvoid residual has been 150 to 200 mL. No significant hypotension noted. Currently off of angiotensin receptor blockers. UA is benign. No evidence of obstruction noted. No plans on dobutamine at this time. CT chest did not show significant pulmonary vascular congestion and diuretics were held. BUN disproportionately elevated from steroids, now discontinued. 2. Acute on chronic CHF with reduced EF of 40 to 45% on echocardiogram 3. Volume overload, likely worsened with use of steroids 4. Hypokalemia secondary to diuretics 5. Type 2 diabetes maintained on insulin 6. Chronic A-fib Plan: DC Norvasc due to significant lower extremity edema Repeat chest x-ray Continue off of diuretics and IV fluids. If no significant pulmonary vascular congestion noted on chest x-ray I will challenge with IV fluids. Continue off of Cozaar Accurate I's and O's
[2024-05-14 11:57] LABS: Glucose,Whole Blood 195 mg/dL (70-110)
[2024-05-14 13:00] LABS: Glucose,Whole Blood 136 mg/dL (70-110)
--- NOTE | 2024-05-14 13:32 | XR ---
EXAMINATION TYPE: XR chest 1V DATE OF EXAM: 05/14/2024 CLINICAL INDICATION: Male, 59 years old with history of chf, progress study. TECHNIQUE: Single AP portable upright view of the chest is obtained. COMPARISON: Chest x-ray from [address] 2 days earlier. FINDINGS: Overlying sternal wires are redemonstrated. Persistent cardiomegaly with small right pleur al effusion. No new focal airspace opacity or pneumothorax. Osseous structures are intact. IMPRESSION: Persistent cardiomegaly and small right pleural effusion. [facility], , 05/14/2024 1:30 PM
--- NOTE | 2024-05-14 13:48 | P.PN ---
Subjective Progress Note Date: 05/14/24 Principal diagnosis: Acute exacerbation of chronic systolic congestive heart failure and acute exacerbation of mild intermittent asthma with chronic cough This is a 59-year-old male patient with a history of obstructive sleep apnea maintained on CPAP, mild intermittent chronic bronchial asthma, lifelong non- smoker, hypertension, hyperlipidemia, diabetes mellitus, diabetic neuropathy, chronic kidney disease stage II, Black artery disease with previous stents and subsequent bypass grafting surgery. He presented here back on May 05, 2024 with complaints of shortness of breath, cough and congestion for 3 days prior. Chest x-ray revealed cardiomegaly with new small bilateral pleural effusions. White count 14.9. Hemoglobin 13.5. Platelets 187. Sodium 140. Potassium 4.3. Bicarb 23. BUN 67. Creatinine 2.1. Glucose 267. Follow-up chest x-ray revealed mild cardiomegaly with improved aeration of the lungs. He is seen this morning in consultation on the regular medical floor. He is awake and alert in no acute distress. He was still having issues with dry nonproductive cough. No fever or chills. Maintaining good O2 saturations in the mid 90s on room air. Hemodynamically stable. The patient is seen today May 10, 2024 in follow-up on the regular medical floor. He is currently sitting up at the bedside. Awake and alert in no acute distress. Much less cough and congestion today compared to yesterday. He is maintaining good O2 saturations in the 90s on room air. Ultrasound of the kidneys revealed no evidence of hydronephrosis. White count 15.1. Hemoglobin 12.6. Platelets 178. Sodium 141. Potassium 3.4. Bicarb 25. BUN 75. Creatinine 2.0. Glucose 239. He remains on DuoNeb inhalations, Symbicort, Decadron. Anticoagulated with Eliquis. Remains on Lantus and Humalog sliding scale. Remains on diuretics. The patient is seen today May 11, 2024 in follow-up on the regular medical floor. He is currently awake and alert in no acute distress. Sitting up at the bedside. Denies any worsening shortness of breath, cough or congestion. He is maintaining good O2 saturations in the 90s on room air. He is afebrile. Hemodynamically stable. He is continued on DuoNeb inhalations, Symbicort, Solu- Medrol. Anticoagulated with Eliquis. Remains on Tessalon Perles for his cough. Remains on IV diuretics. Continues to diurese well. White count 13.9. Hemoglobin 13.5. Platelets 180. Sodium 140. Potassium 3.3. Bicarb 25. BUN 88. Creatinine 2.2. Glucose 393. The patient is seen today May 12, 2024 in follow-up on the regular medical floor. He is currently resting in bed. Awake and alert in no acute distress. He denies any worsening shortness of breath, cough or congestion. He is maintaining good O2 saturations in the 90s on room air. He is continued on DuoNeb and elations, Symbicort, prednisone. He is anticoagulated with Eliquis. Remains on Lantus and Humalog sliding scale. Count 17.2. Hemoglobin 14.3. Platelets 223. Sodium 138. Potassium 3.3. Bicarb 27. BUN 96. Creatinine 2.2. Glucose 490. CT scan of the chest today revealed a small right sided pleural effusion. Linear atelectasis in the mid right lung. No focal consolidations. No suspicious nodules. No pneumothorax. Seen today on 05/13/2024, continues to have symptoms of weakness fatigue some shortness of breath, intermittent cough, no wheezing, CT of the chest is basically unremarkable except for minimal right streak atelectasis. There is no evidence of bronchiectasis no evidence of pneumonia and no evidence of congestive heart failure. Patient remains on bronchodilators, remains on prednisone which has been tapered, overall I believe the patient is doing well, however his blood sugars continue to run high intermittently, and his prednisone was cut down to 10 mg daily this was given mostly for his persistent cough. Antonia mallory was also placed on PPI for history of underlying GERD. Seen today on 05/14/2024, patient is complaining of shortness of breath on exertion, complaining of occasional cough, generalized weakness. Continues to have intermittently high blood sugars, he is now off the prednisone. His renal functioning has been steadily getting worse, creatinine is up to 2.47 today. WBC count is 15.6, hemoglobin 14.0, nephrology was consulted for his renal status. Nephrology felt that his acute kidney injury is cardiorenal and post diuresis. The recommendation was to discontinue Norvasc, continue to keep the patient off diuretics for now. And he is off Cozaar. Pulmonary hardwick, that does not seem to be a major issue at this point, his cough is significantly improved. But not completely resolved. Objective - Vital Signs Vital signs: Vital Signs Temp 97.8 F 05/14/24 03:02 Pulse 63 05/14/24 11:57 Resp 16 05/14/24 11:57 BP 136/70 05/14/24 11:57 Pulse Ox 95 05/14/24 11:57 FiO2 Intake & Output 05/13/24 05/14/24 05/14/24 18:59 06:59 18:59 Intake Total 720 324.719 Output Total 650 975 Balance 70 -650.281 Weight 87 kg Intake: Intake, IV Titration 0 87.719 Amount Insulin Regular 100 unit 0 87.719 In Sodium Chloride 0.9% 100 ml @ Titrate IV .[facility] Rx#:[id number] Oral 720 237 Output: Urine 650 975 Other: Voiding Method Toilet Toilet Toilet Urinal Urinal Urinal # Voids 3 1 - Exam GENERAL EXAM: Revealed 59-year-old white male in no distress, on room air. HEAD: Normocephalic. EYES: Normal reaction of pupils, equal size. NOSE: Clear with pink turbinates. THROAT: No erythema or exudates. NECK: No masses, no JVD. CHEST: No chest wall deformity. LUNGS: Clear throughout no crackles rhonchi or wheezes CVS: S1 and S2 normal with no audible murmur, regular rhythm. ABDOMEN: No hepatosplenomegaly, normal bowel sounds, no guarding or rigidity. SKIN: No rashes CENTRAL NERVOUS SYSTEM: No focal deficits, tone is normal in all 4 extremities. EXTREMITIES: There is 1+ bipedal. No clubbing, no cyanosis. Peripheral pulses are intact. Psychiatric: Depressed mood flat affect normal mental status. - Labs CBC & Chem 7: 05/14/24 06:28 05/14/24 06:28 Labs: Abnormal Lab Results - Last 24 Hours (Table) 05/13/24 05/13/24 05/13/24 Range/Units 14:12 15:27 16:17 WBC (3.8-10.6) k/uL MCV (80.0-100.0) fL Neutrophils # (1.3-7.7) k/uL Monocytes # (0-1.0) k/uL Sodium (137-145) mmol/L BUN (9-20) mg/dL Creatinine (0.66-1.25) mg/dL Glucose (74-99) mg/dL POC Glucose (mg/dL) 309 H 220 H 218 H (70-110) mg/dL Calcium (8.4-10.2) mg/dL Total Protein (6.3-8.2) g/dL Albumin (3.5-5.0) g/dL 05/13/24 05/13/24 05/13/24 Range/Units 17:00 18:12 19:25 WBC (3.8-10.6) k/uL MCV (80.0-100.0) fL Neutrophils # (1.3-7.7) k/uL Monocytes # (0-1.0) k/uL Sodium (137-145) mmol/L BUN (9-20) mg/dL Creatinine (0.66-1.25) mg/dL Glucose (74-99) mg/dL POC Glucose (mg/dL) 192 H 197 H 261 H (70-110) mg/dL Calcium (8.4-10.2) mg/dL Total Protein (6.3-8.2) g/dL Albumin (3.5-5.0) g/dL 05/13/24 05/13/24 05/13/24 Range/Units 20:19 21:06 22:04 WBC (3.8-10.6) k/uL MCV (80.0-100.0) fL Neutrophils # (1.3-7.7) k/uL Monocytes # (0-1.0) k/uL Sodium (137-145) mmol/L BUN (9-20) mg/dL Creatinine (0.66-1.25) mg/dL Glucose (74-99) mg/dL POC Glucose (mg/dL) 247 H 235 H 209 H (70-110) mg/dL Calcium (8.4-10.2) mg/dL Total Protein (6.3-8.2) g/dL Albumin (3.5-5.0) g/dL 05/13/24 05/14/24 05/14/24 Range/Units 23:03 00:00 02:04 WBC (3.8-10.6) k/uL MCV (80.0-100.0) fL Neutrophils # (1.3-7.7) k/uL Monocytes # (0-1.0) k/uL Sodium (137-145) mmol/L BUN (9-20) mg/dL Creatinine (0.66-1.25) mg/dL Glucose (74-99) mg/dL POC Glucose (mg/dL) 211 H 165 H 123 H (70-110) mg/dL Calcium (8.4-10.2) mg/dL Total Protein (6.3-8.2) g/dL Albumin (3.5-5.0) g/dL 05/14/24 05/14/24 05/14/24 Range/Units 03:06 03:58 05:22 WBC (3.8-10.6) k/uL MCV (80.0-100.0) fL Neutrophils # (1.3-7.7) k/uL Monocytes # (0-1.0) k/uL Sodium (137-145) mmol/L BUN (9-20) mg/dL Creatinine (0.66-1.25) mg/dL Glucose (74-99) mg/dL POC Glucose (mg/dL) 188 H 183 H 206 H (70-110) mg/dL Calcium (8.4-10.2) mg/dL Total Protein (6.3-8.2) g/dL Albumin (3.5-5.0) g/dL 05/14/24 05/14/24 05/14/24 Range/Units 06:11 06:28 06:28 WBC 15.6 H (3.8-10.6) k/uL MCV 79.7 L (80.0-100.0) fL Neutrophils # 12.5 H (1.3-7.7) k/uL Monocytes # 1.3 H (0-1.0) k/uL Sodium 136 L (137-145) mmol/L BUN 111 H* (9-20) mg/dL Creatinine 2.47 H (0.66-1.25) mg/dL Glucose 190 H (74-99) mg/dL POC Glucose (mg/dL) 176 H (70-110) mg/dL Calcium 7.9 L (8.4-10.2) mg/dL Total Protein 5.6 L (6.3-8.2) g/dL Albumin 3.1 L (3.5-5.0) g/dL 05/14/24 05/14/24 05/14/24 Range/Units 07:05 07:59 08:58 WBC (3.8-10.6) k/uL MCV (80.0-100.0) fL Neutrophils # (1.3-7.7) k/uL Monocytes # (0-1.0) k/uL Sodium (137-145) mmol/L BUN (9-20) mg/dL Creatinine (0.66-1.25) mg/dL Glucose (74-99) mg/dL POC Glucose (mg/dL) 253 H 309 H 322 H (70-110) mg/dL Calcium (8.4-10.2) mg/dL Total Protein (6.3-8.2) g/dL Albumin (3.5-5.0) g/dL 05/14/24 05/14/24 05/14/24 Range/Units 09:56 11:16 11:55 WBC (3.8-10.6) k/uL MCV (80.0-100.0) fL Neutrophils # (1.3-7.7) k/uL Monocytes # (0-1.0) k/uL Sodium (137-145) mmol/L BUN (9-20) mg/dL Creatinine (0.66-1.25) mg/dL Glucose (74-99) mg/dL POC Glucose (mg/dL) 312 H 236 H 195 H (70-110) mg/dL Calcium (8.4-10.2) mg/dL Total Protein (6.3-8.2) g/dL Albumin (3.5-5.0) g/dL 05/14/24 Range/Units 12:58 WBC (3.8-10.6) k/uL MCV (80.0-100.0) fL Neutrophils # (1.3-7.7) k/uL Monocytes # (0-1.0) k/uL Sodium (137-145) mmol/L BUN (9-20) mg/dL Creatinine (0.66-1.25) mg/dL Glucose (74-99) mg/dL POC Glucose (mg/dL) 136 H (70-110) mg/dL Calcium (8.4-10.2) mg/dL Total Protein (6.3-8.2) g/dL Albumin (3.5-5.0) g/dL Assessment and Plan Assessment: Impression: Acute exacerbation of mild intermittent chronic bronchial asthma versus post infectious cough syndrome, possible GERD related cough Acute exacerbation of chronic systolic congestive heart failure with ejection fraction 40 to 45% Acute kidney injury secondary to suspected cardiorenal syndrome, diuretics Diabetes mellitus, type II Diabetic neuropathy Coronary artery disease with previous stents/coronary artery bypass grafting Ischemic cardiomyopathy Hyperlipidemia Hypertension History of congestive heart failure Recommendation: Reassured about his overall pulmonary status Reassured about his CT of the chest Continue bronchodilators including Symbicort and DuoNeb Patient is now off steroids Continue close monitoring of his blood sugars Continue PPI for his GERD Will follow as needed Time with Patient: Less than 30
[2024-05-14 14:00] LABS: Glucose,Whole Blood 177 mg/dL (70-110)
[2024-05-14 15:13] LABS: Glucose,Whole Blood 217 mg/dL (70-110)
[2024-05-14 15:59] LABS: Glucose,Whole Blood 274 mg/dL (70-110)
[2024-05-14 16:59] LABS: Glucose,Whole Blood 269 mg/dL (70-110)
[2024-05-14 18:15] LABS: Glucose,Whole Blood 338 mg/dL (70-110)
[2024-05-14] MEDS ORDERED: DEXTROSE 50% SYRINGE 50 ML IVP PRN ×2 (18:43)
[2024-05-14 19:09] LABS: Glucose,Whole Blood 333 mg/dL (70-110)
[2024-05-14 20:09] LABS: Glucose,Whole Blood 308 mg/dL (70-110)
[2024-05-14] MEDS: INSULIN GLARGINE (LANTUS) 100 UNIT/ML SYR SQ SCH (20:38)
[2024-05-14] MEDS: INSULIN LISPRO (HumaLOG) 100 UNIT/ML 10 mL VL SQ SCH (20:39)
[2024-05-14] MEDS: GABAPENTIN 300 MG CAP PO SCH (20:39)
[2024-05-15 05:40] LABS: Basophils % (A) 0 %; Eosinophils # (A) 0.1 k/uL (0-0.7); Eosinophils % (A) 1 %; HCT 43.8 % (39.0-53.0); HGB 13.5 gm/dL (13.0-17.5); Hypochromasia Slight; Lymphocytes # (A) 1.1 k/uL (1.0-4.8); Lymphocytes % (A) 10 %; MCH 25.5 pg (25.0-35.0); MCHC 30.8 g/dL (31.0-37.0); MCV 82.8 fL (80.0-100.0); Mean Platelet Volume 9.9; Monocytes % (A) 9 %; Neutrophils # (A) 8.8 k/uL (1.3-7.7); Neutrophils % (A) 78 %; Platelet Count 201 k/uL (150-450); RBC 5.29 m/uL (4.30-5.90); RDW 15.6 % (11.5-15.5); WBC 11.3 k/uL (3.8-10.6)
[2024-05-15 06:02] LABS: Glucose,Whole Blood 314 mg/dL (70-110)
[2024-05-15 06:13] LABS: ALT 42 U/L (4-49); AST 27 U/L (17-59); African American GFR (CKD) 40 (>60 ml/min/1.73 sqM); Alkaline Phosphatase 110 U/L (38-126); Anion Gap 8 mmol/L; Carbon Dioxide 27 mmol/L (22-30); Chloride 100 mmol/L (98-107); Glucose 379 mg/dL (74-99); Magnesium 2.2 mg/dL (1.6-2.3); Non-African American GFR(CKD) 34 (>60 ml/min/1.73 sqM); Phosphorus 3.8 mg/dL (2.5-4.5); Potassium 4.2 mmol/L (3.5-5.1); Sodium 135 mmol/L (137-145); Total Bilirubin 0.7 mg/dL (0.2-1.3); Total Protein 5.5 g/dL (6.3-8.2)
[2024-05-15 06:21] LABS: NT-Pro-B-Type Natriuretic Pept 2510 pg/mL
[2024-05-15] MEDS: INSULIN LISPRO (HumaLOG) 100 UNIT/ML 10 mL VL SQ SCH ×2 (06:31→09:17)
[2024-05-15 06:43] LABS: Blood Urea Nitrogen 103 mg/dL (9-20)
[2024-05-15] MEDS: POTASSIUM CHLORIDE ER 20 MEQ TAB.ER PO SCH (09:12)
--- NOTE | 2024-05-15 10:16 | P.PN ---
Subjective Progress Note Date: 05/15/24 HISTORY OF PRESENT ILLNESS: This is a 59-year-old male patient of rosita and Dr. Ga with past medical history of coronary artery disease status post 6 vessel CABG 2006 with MAE to LAD, saphenous venous graft to the PDA, saphenous venous graft to the obtuse marginal one, radial artery to the obtuse marginal branch 2 and saphenous venous graft to the obtuse marginal 3 followed by heart catheterization with PCI and stent of the saphenous venous graft to the RCA in 2015 at which time he pres ented with non-ST elevated myocardial infarction. Most recent cardiac catheterization was performed on 04/10/2022 which revealed severe triple-vessel coronary artery disease with a patent ramus intermediate, patent SVG to the OM, patent MAE to the LAD, and occluded saphenous vein graft to the RCA which is chronic from before. Medical therapy was advised at that time. History of hypertension, hypertensive cardiovascular disease with left ventricular hypertrophy, hyperlipidemia, ischemic cardiomyopathy, paroxysmal atrial fibrillation, currently on Eliquis, diabetes mellitus type 2 with diabetic polyneuropathy, hyperlipidemia, asthma, obstructive sleep apnea on CPAP, chronic low back pain, DVT in the past, patient was recently hospitalized at [facility] between 06/05/2023 and discharged 06/15/2023 after he was admitted for GI bleed due to esophageal ulcer. Patient had EGD and incomplete colonoscopy due to poor prep at that time. Patient presented to the ER at [facility] due to increased cough and increased shortness of breath, was complaining of increased edema in both legs and ws seen by Isaiah Pena and PCR was negative for COVID-19. Influenza A, B annd RSV, CXR showed evidence of CHF with bilateral pleural effusion, with elevated BNP, was started on Furosemide 40 mg IVP q 8 h and was admitted to the hospital for acute on chronic systolic heart failure 05/06: Patient sitting up in bed in no apparent distress, he is feeling better today, he denies any chest pain, shortness of breath, he continues to have a significant coughing, no phlegm production, he continues to complain of pleurisy in his chest, I will start the patient on Solu-Medrol 40 mg a push every 8 ho Pio bianchioNeb 3 nebulization 4 times every day, also Pulmicort 1 mg nebulization twice every day, follow-up with the patient very closely he swelling is a bit better today, his potassium is down we will start potassium supplement 20 mg orally twice every day, follow-up with the patient labs in the next 24 hours, continue current treatment plan, patient was seen in consultation by cardiology recommended to continue current treatment plan 05/07: Patient is feeling better today, he is having less coughing, no chest pain or shortness of breath, he continues to have minimal pleurisy, he has been star raquel on Solu-Medrol 40 mg IV push every 8 hours we will decrease that to every 12 hours, continue with Tessalon Perles 200 mg orally 3 times every day, continue with nebulized treatment in the form of DuoNeb and Pulmicort, hopefully patient will be able to be discharged home in the next 24 hours. Allergy has seen the patient, and they recommended to continue same treatment plan. I will decrease IV Lasix to 40 mg IV push every 12 hours 05/08: Patient sitting up in bed he is complaining of increased swelling in the right upper extremity more than the left upper extremity, continues to have swel ling both lower extremity, he switched to Lasix 40 mg orally twice every day, discontinued Solu-Medrol, start the patient on prednisone 40 mg once every day, continue Zithromax 500 mg once every day, chest x-ray was done showed improvement in the aeration of the lung, continue current treatment plan, keep the patient in the hospital 05/09: Patient is feeling a bit better today, he continues to have some swelling in both lower extremities, he denies any chest pain, less short of breath, he continues to have some cough, he was switched to Symbicort 160/4.5 mcg 2 puffs in elation twice every day he continues to be on DuoNeb treatment nebulization 4 times every day, oxygen support, was seen by cardiology yesterday recommended to continue Lasix 40 mg orally twice every day, monitor input and output and daily weight, increase activity, follow-up with the patient very closely, his kidney function just appears to be worse, he was started on Zaroxolyn 2.5 mg orally today I will discontinue Farxiga, discontinue losartan, monitor the patient blood pressure very closely, ultrasound of the kidneys will be done, nephrology consultation Dr. Pope pulmonary consultation was obtained from Dr. Allen as well. 05/10: Patient is laying down in bed not feeling well at all, he continues to have significant edema in both upper and lower extremities, continue Lasix 40 mg orally twice every day, he was seen in consultation by nephrology who recommended to have a bladder scan since the patient I believe he is retaining urine, even though the ultrasound did not show evidence of any hydronephrosis at this time, there is a lesion in the kidney that need to be evaluated as an outpatient, we will discuss with cardiology and nephrology the possibility of starting the patient on dobutamine drip at this time, to try to improve his cardiac output, to increase his kidney perfusion, keep the patient off losartan, keep the patient off Farxiga for now, monitor the patient input and output and daily weight, avoid nephrotoxins. 05/11: Patient is sitting at the edge of the bed, he is feeling better today, he was taken off dexamethasone since his blood glucose level is all the way up to 400, he was maintained on DuoNeb, as well as Symbicort, he feels a bit better today, he is urinating well, his BUN is still elevated, his creatinine is up to 2.2, he has been on frusemide 40 mg orally twice every day Zaroxolyn 2.5 mg orally once every day will continue with that, follow-up with the patient very closely, nephrology/cardiology/pulmonary medicine is following, patient will be off losartan Farxiga and metformin for now, repeat labs tomorrow morning. 05/12: Patient is not feeling well today, he is kidney function is worsening and a daily basis, I will discontinue metolazone, discontinue Lasix at this time, start the patient on small dose of IV fluid in the form of normal saline 50 cc an hour, patient had a CT scan of the chest without contrast that showed evidence of minimal pleural effusion not significant, patient edema has gone down quite a bit, patient blood glucose level is not controlled, I will switch the patient to insulin drip at this point in time, patient will be transferred to the [facility] area, monitor the patient very closely, follow-up with the patient input and output and daily weight, I will monitor the patient urine output very closely, we will check the patient again in the next 24 hours, patient current condition continues to be worsened we will continue to monitor. 05/13: Patient is sitting up in bed he continues to feel about the same, he continues to be somewhat short of breath, he continues to have some edema in both lower extremities, he continued to have some cough no phlegm production, he was started on insulin drip yesterday, his blood glucose level is much better today, will continue with that, follow-up with the patient very closely, his BUN is a lot worse, 102, he continued to have an acute kidney injury due to acute tubular necrosis and cardiorenal syndrome, he has been started on normal saline at 50 cc an hour, will follow-up with the patient very closely, discussed with nephrology the plan of action at this point in time as the patient kidney function is worsened. Start the patient on protein drink in the form of Glucerna 3 times every day 05/14: Patient is assessed sitting up in bed denies any chest pain, he is less short of breath, he continues to have increased swelling in both lower extremities, he has no coughing at this point, he has no hemoptysis, he continues to have increased abdominal distention, he is not urinating as much, his BUN is up to 111, and creatinine 2.47, continue to have hyperglycemia, continue insulin drip for during the day, I will transition to Lantus this evening at 42 units and Humalog at 11 units with each meal 3 times every day, along with a sliding scale insulin but for now we will continue with insulin drip until his blood glucose level around 125 to 145 mg/dL. 05/15: Patient sitting up in bed in no apparent distress, he continues to be somewhat short of breath, he continues to have some swelling both lower extremities, he was taken off amlodipine, he was switched from insulin drip to Lantus 42 units at bedtime along with NovoLog 9 units plus the sliding scale, will continue follow-up with the patient very closely, his BUN is down to 102, his creatinine down to 2.02, increase oral intake of protein, continue to follow-up with the patient very closely, hopefully home in the next few days when the BUN is trending down REVIEW OF SYSTEMS: Constitutional: No documented fever, no chills, no night sweats. No weight change. Positive for weakness, positive for fatigue, no lethargy. No daytime sleepiness. HEENT: No headache. No blurred vision or double vision, no loss of vision. No loss of Hearing, no ringing in the ears, no dizziness. No nasal drainage or congestion. No epistaxis. No sore throat. Lungs: last shortness of breath, occasional cough, no sputum production. no wheezing. Reports dyspnea with activity. Cardiovascular: no chest pain, positive for lower extremity edema. No palpitations. No paroxysmal nocturnal dyspnea. No orthopnea. positive for lightheadedness or dizziness. No syncopal episodes. Abdominal: Reports no abdominal pain. no nausea, vomiting. No diarrhea. No constipation. No bloody or tarry stools reports loss of appetite. Genitourinary: No dysuria, decreased urinary output, urgency. No urinary retention. Musculoskeletal: No myalgias. positive for muscle weakness, no gait dysfunction, frequent falls. No back pain. No neck pain. Integumentary: scabbed wounds to left caballero , no lesions. No rash or pruritus. No unusual bruising. No change in hair or nails. Neurologic: No aphasia. Minimal facial droop. No change in mentation. No head injury. No headache, minimal drift. Psychiatric: positive for depression. No anxiety. No mood swings. Endocrine: abnormal blood sugars. No weight change. PHYSICAL EXAMINATION: General: 59-year-old male laying down in no respiratory distress. HEENT: Head is atraumatic, normocephalic, pupils were equal round reactive to light and recommendation, extraocular muscle movement were intact, sclera nonicteric, conjunctivae were pale, mucous membranes of the mouth are somewhat dry. Neck: Supple, no JVP, normal carotid upstroke bilaterally, no lymphadenopathy. Chest: Decreased breath sounds at the bases, no rhonchi, no expiratory wheezes, no chest wall tenderness, no intercostal retractions Heart: First heart sound is normal, second heart sounds normal, there is s ystolic ejection murmur 2/6 located in the left sternal border. Abdomen: Soft, nontender, nondistended, positive bowel sounds, there is no hepatosplenomegaly Extremities: There is +2 edema no calf tenderness DP +1 bilaterally. Neurologic examination: Patient is awake alert and oriented X 3, cranial nerves II-12 appear grossly intact, muscle power were 4 out of 5 in upper extremities and 4 out of 5 in bilateral lower extremities, deep tendon reflexes normal bilaterally. Minimal right facial droop, and right leg weakness. ASSESSMENT AND PLAN: 1. Acute on chronic systolic heart failure . Patient was taken off Lasix and metolazone for today, due to his current acute kidney injury patient was taken off losartan, Farxiga, due to acute kidney injury he was maintained on carvedilol 25 mg orally twice every day hydralazine 25 mg 3 times every day, follow-up with the patient very closely. 2. Acute kidney injury due to cardiorenal syndrome And vasomotor nephropathy. His kidney function does continue to worsen his BUN is 111 and creatinine 2.47 today continue to increase oral intake of fluid, IV fluid was discontinued by nephrology yesterday, due to his fluid status, monitor the patient's symptoms very closely, repeat the patient labs tomorrow morning, ultrasound did not show evidence of hydronephrosis, bladder scan did not show any evidence of any urinary retention at this time, 3. Acute on chronic bronchitis. Much better now no evidence of any acute abnormalities on the CT scan of the chest that was done by pulmonary medicine, discontinue prednisone, continue nebulized treatment as needed, oxygen support as needed he is currently on room air. 4. Hypertension and hypertensive cardiovascular disease. Off losartan, continue patient on Carvedilol 25 mg orally twice every day, continue Amlodipine 5 mg po daily, continue with Hydralazine as well and monitor BP very closely. 5. Diabetes mellitus type 2 with steroid-induced hyperglycemia. Patient is currently on insulin drip currently requiring 6 units/h, we will wait until his blood glucose level is down to 125 to 145 mg/dL then will transition the patient into Lantus at 42 units at bedtime along with the Humalog 11 units before each meal and sliding scale insulin. 6. Coronary artery disease status post CABG 6 as well as PCI in the past. Continue patient on ASA 81 mg once every day, Carvedilol 25 mg orally twice every day, continue patient on atorvastatin 80 mg orally once every day, continue Zetia 10 mg orally once every day. 7. Hyperlipidemia. Continue patient on atorvastatin 80 mg once every day, continue Zetia 10 mg orally once every day, monitor lipid panel, keep LDL 55-70. 8. Diabetic polyneuropathy. decrease gabapentin to 300 mg at bedtime. 9. Obstructive sleep apnea. Patient does have a CPAP at home. 10. Paroxysmal atrial fibrillation . Continue patient on Coreg 25 mg orally twice every day, Eliquis 5 mg po bid. 11. DVT prophylaxis. Continue Eliquis 5 mg orally twice every day. 12. GI prophylaxis. Continue Protonix 40 mg orally once every day 13. History of CVA in the past recovered well, we will continue with Atorvastatin 80 mg po daily and Eliquis for life 14. Hypokalemia status post replacement. Decrease potassium supplement to once every day. 15. Overall prognosis is very guarded. Objective - Vital Signs Vital signs: Vital Signs Temp 97.8 F 05/15/24 04:00 Pulse 72 05/15/24 04:00 Resp 16 05/15/24 04:00 BP 155/82 05/15/24 04:00 Pulse Ox 93 L 05/15/24 04:00 FiO2 Intake & Output 05/14/24 05/15/24 05/15/24 18:59 06:59 18:59 Intake Total 32.579 Output Total 800 1425 Balance -767.421 -1425 Weight 89.1 kg Intake: Intake, IV Titration 32.579 Amount Insulin Regular 100 unit 32.579 In Sodium Chloride 0.9% 100 ml @ Titrate IV .Q0M [facility] Rx#:[id number] Output: Urine 800 1425 Other: Voiding Method Toilet Toilet Urinal Urinal - Labs CBC & Chem 7: 05/15/24 05:06 05/15/24 05:06 Labs: Abnormal Lab Results - Last 24 Hours (Table) 05/12/24 05/14/24 05/14/24 Range/Units 05:43 06:28 07:59 WBC (3.8-10.6) k/uL MCHC (31.0-37.0) g/dL RDW (11.5-15.5) % Neutrophils # (1.3-7.7) k/uL Sodium 136 L (137-145) mmol/L BUN 111 H* (9-20) mg/dL Creatinine 2.47 H (0.66-1.25) mg/dL Glucose 190 H (74-99) mg/dL POC Glucose (mg/dL) 309 H (70-110) mg/dL Hemoglobin A1c 11.6 H (<=6.0) % Calcium 7.9 L (8.4-10.2) mg/dL Total Protein 5.6 L (6.3-8.2) g/dL Albumin 3.1 L (3.5-5.0) g/dL 05/14/24 05/14/24 05/14/24 Range/Units 08:58 09:56 11:16 WBC (3.8-10.6) k/uL MCHC (31.0-37.0) g/dL RDW (11.5-15.5) % Neutrophils # (1.3-7.7) k/uL Sodium (137-145) mmol/L BUN (9-20) mg/dL Creatinine (0.66-1.25) mg/dL Glucose (74-99) mg/dL POC Glucose (mg/dL) 322 H 312 H 236 H (70-110) mg/dL Hemoglobin A1c (<=6.0) % Calcium (8.4-10.2) mg/dL Total Protein (6.3-8.2) g/dL Albumin (3.5-5.0) g/dL 05/14/24 05/14/24 05/14/24 Range/Units 11:55 12:58 13:59 WBC (3.8-10.6) k/uL MCHC (31.0-37.0) g/dL RDW (11.5-15.5) % Neutrophils # (1.3-7.7) k/uL Sodium (137-145) mmol/L BUN (9-20) mg/dL Creatinine (0.66-1.25) mg/dL Glucose (74-99) mg/dL POC Glucose (mg/dL) 195 H 136 H 177 H (70-110) mg/dL Hemoglobin A1c (<=6.0) % Calcium (8.4-10.2) mg/dL Total Protein (6.3-8.2) g/dL Albumin (3.5-5.0) g/dL 05/14/24 05/14/24 05/14/24 Range/Units 15:08 15:57 16:57 WBC (3.8-10.6) k/uL MCHC (31.0-37.0) g/dL RDW (11.5-15.5) % Neutrophils # (1.3-7.7) k/uL Sodium (137-145) mmol/L BUN (9-20) mg/dL Creatinine (0.66-1.25) mg/dL Glucose (74-99) mg/dL POC Glucose (mg/dL) 217 H 274 H 269 H (70-110) mg/dL Hemoglobin A1c (<=6.0) % Calcium (8.4-10.2) mg/dL Total Protein (6.3-8.2) g/dL Albumin (3.5-5.0) g/dL 05/14/24 05/14/24 05/14/24 Range/Units 18:13 19:08 20:08 WBC (3.8-10.6) k/uL MCHC (31.0-37.0) g/dL RDW (11.5-15.5) % Neutrophils # (1.3-7.7) k/uL Sodium (137-145) mmol/L BUN (9-20) mg/dL Creatinine (0.66-1.25) mg/dL Glucose (74-99) mg/dL POC Glucose (mg/dL) 338 H 333 H 308 H (70-110) mg/dL Hemoglobin A1c (<=6.0) % Calcium (8.4-10.2) mg/dL Total Protein (6.3-8.2) g/dL Albumin (3.5-5.0) g/dL 05/15/24 05/15/24 05/15/24 Range/Units 05:06 05:06 06:00 WBC 11.3 H (3.8-10.6) k/uL MCHC 30.8 L (31.0-37.0) g/dL RDW 15.6 H (11.5-15.5) % Neutrophils # 8.8 H (1.3-7.7) k/uL Sodium 135 L (137-145) mmol/L BUN 103 H* (9-20) mg/dL Creatinine 2.03 H (0.66-1.25) mg/dL Glucose 379 H (74-99) mg/dL POC Glucose (mg/dL) 314 H (70-110) mg/dL Hemoglobin A1c (<=6.0) % Calcium 8.0 L (8.4-10.2) mg/dL Total Protein 5.5 L (6.3-8.2) g/dL Albumin 3.0 L (3.5-5.0) g/dL
--- NOTE | 2024-05-15 11:01 | P.PN ---
Subjective Patient is seen in follow-up for acute kidney injury. Renal function better. Complains of swelling in the lower extremities. On room air. No chest pain or shortness of breath. Vital signs are stable. General: No acute distress. HEENT: Head exam is unremarkable. On room air. LUNGS: No audible rhonchi or wheezes. HEART: Rate and Rhythm are regular. ABDOMEN: Nontender. EXTREMITITES: 2+ edema. Objective - Vital Signs Vital signs: Vital Signs Temp 96.9 F L 05/15/24 08:00 Pulse 76 05/15/24 09:19 Resp 15 05/15/24 08:00 BP 160/76 05/15/24 08:00 Pulse Ox 94 L 05/15/24 08:00 FiO2 Intake & Output 05/14/24 05/15/24 05/15/24 18:59 06:59 18:59 Intake Total 32.579 1280 Output Total 800 1425 Balance -767.421 -1425 1280 Weight 89.1 kg Intake: Intake, IV Titration 32.579 Amount Insulin Regular 100 unit 32.579 In Sodium Chloride 0.9% 100 ml @ Titrate IV .Q0M [facility] Rx#:[id number] Oral 1280 Output: Urine 800 1425 Other: Voiding Method Toilet Toilet Toilet Urinal Urinal Urinal - Labs CBC & Chem 7: 05/15/24 05:06 05/15/24 05:06 Labs: Abnormal Lab Results - Last 24 Hours (Table) 05/12/24 05/14/24 05/14/24 Range/Units 05:43 11:16 11:55 WBC (3.8-10.6) k/uL MCHC (31.0-37.0) g/dL RDW (11.5-15.5) % Neutrophils # (1.3-7.7) k/uL Sodium (137-145) mmol/L BUN (9-20) mg/dL Creatinine (0.66-1.25) mg/dL Glucose (74-99) mg/dL POC Glucose (mg/dL) 236 H 195 H (70-110) mg/dL Hemoglobin A1c 11.6 H (<=6.0) % Calcium (8.4-10.2) mg/dL Total Protein (6.3-8.2) g/dL Albumin (3.5-5.0) g/dL 05/14/24 05/14/24 05/14/24 Range/Units 12:58 13:59 15:08 WBC (3.8-10.6) k/uL MCHC (31.0-37.0) g/dL RDW (11.5-15.5) % Neutrophils # (1.3-7.7) k/uL Sodium (137-145) mmol/L BUN (9-20) mg/dL Creatinine (0.66-1.25) mg/dL Glucose (74-99) mg/dL POC Glucose (mg/dL) 136 H 177 H 217 H (70-110) mg/dL Hemoglobin A1c (<=6.0) % Calcium (8.4-10.2) mg/dL Total Protein (6.3-8.2) g/dL Albumin (3.5-5.0) g/dL 05/14/24 05/14/24 05/14/24 Range/Units 15:57 16:57 18:13 WBC (3.8-10.6) k/uL MCHC (31.0-37.0) g/dL RDW (11.5-15.5) % Neutrophils # (1.3-7.7) k/uL Sodium (137-145) mmol/L BUN (9-20) mg/dL Creatinine (0.66-1.25) mg/dL Glucose (74-99) mg/dL POC Glucose (mg/dL) 274 H 269 H 338 H (70-110) mg/dL Hemoglobin A1c (<=6.0) % Calcium (8.4-10.2) mg/dL Total Protein (6.3-8.2) g/dL Albumin (3.5-5.0) g/dL 05/14/24 05/14/24 05/15/24 Range/Units 19:08 20:08 05:06 WBC 11.3 H (3.8-10.6) k/uL MCHC 30.8 L (31.0-37.0) g/dL RDW 15.6 H (11.5-15.5) % Neutrophils # 8.8 H (1.3-7.7) k/uL Sodium (137-145) mmol/L BUN (9-20) mg/dL Creatinine (0.66-1.25) mg/dL Glucose (74-99) mg/dL POC Glucose (mg/dL) 333 H 308 H (70-110) mg/dL Hemoglobin A1c (<=6.0) % Calcium (8.4-10.2) mg/dL Total Protein (6.3-8.2) g/dL Albumin (3.5-5.0) g/dL 05/15/24 05/15/24 Range/Units 05:06 06:00 WBC (3.8-10.6) k/uL MCHC (31.0-37.0) g/dL RDW (11.5-15.5) % Neutrophils # (1.3-7.7) k/uL Sodium 135 L (137-145) mmol/L BUN 103 H* (9-20) mg/dL Creatinine 2.03 H (0.66-1.25) mg/dL Glucose 379 H (74-99) mg/dL POC Glucose (mg/dL) 314 H (70-110) mg/dL Hemoglobin A1c (<=6.0) % Calcium 8.0 L (8.4-10.2) mg/dL Total Protein 5.5 L (6.3-8.2) g/dL Albumin 3.0 L (3.5-5.0) g/dL Assessment and Plan Plan: Assessment: 1. Acute kidney injury secondary to ATN secondary to cardiorenal syndrome. Status post diuresis. Creatinine 1.12 on admission and peaked at 2.47 -2.03 today. UA benign. No hydronephrosis noted on ultrasound. 2. Acute on chronic systolic CHF with ejection fraction of 40 to 45%. 3. Diabetes mellitus. 4. Coronary artery disease status post CABG and cardiac stents placement. 5. Volume overload. Plan: Add oral Lasix 40 mg once daily. Avoid nephrotoxins. Continue to monitor renal function and urine output. Add 1500 cc fluid restriction. Follow-up outpatient 1 week postdischarge.
[2024-05-15 11:26] LABS: Glucose,Whole Blood 202 mg/dL (70-110)
[2024-05-15] MEDS: FUROSEMIDE 40 MG TAB PO SCH (12:48)
[2024-05-15 16:43] LABS: Glucose,Whole Blood 89 mg/dL (70-110)
[2024-05-15 16:53] LABS: Glucose,Whole Blood 99 mg/dL (70-110)
[2024-05-15 20:11] LABS: Glucose,Whole Blood 254 mg/dL (70-110)
[2024-05-15] MEDS: INSULIN GLARGINE (LANTUS) 100 UNIT/ML SYR SQ SCH (21:07)
[2024-05-16 04:07] LABS: Basophils % (A) 0 %; Eosinophils # (A) 0.3 k/uL (0-0.7); Eosinophils % (A) 2 %; HCT 42.7 % (39.0-53.0); HGB 13.8 gm/dL (13.0-17.5); Hypochromasia Moderate; Lymphocytes # (A) 1.3 k/uL (1.0-4.8); Lymphocytes % (A) 10 %; MCHC 32.3 g/dL (31.0-37.0); MCV 80.5 fL (80.0-100.0); Mean Platelet Volume 9.1; Monocytes # (A) 1.4 k/uL (0-1.0); Monocytes % (A) 11 %; Neutrophils # (A) 10.2 k/uL (1.3-7.7); Neutrophils % (A) 76 %; Platelet Count 187 k/uL (150-450); RDW 15.5 % (11.5-15.5); WBC 13.5 k/uL (3.8-10.6)
[2024-05-16 04:20] LABS: ALT 43 U/L (4-49); AST 29 U/L (17-59); African American GFR (CKD) 45 (>60 ml/min/1.73 sqM); Alkaline Phosphatase 148 U/L (38-126); Anion Gap 8 mmol/L; Blood Urea Nitrogen 88 mg/dL (9-20); Calcium 8.3 mg/dL (8.4-10.2); Carbon Dioxide 26 mmol/L (22-30); Chloride 104 mmol/L (98-107); Glucose 217 mg/dL (74-99); Non-African American GFR(CKD) 39 (>60 ml/min/1.73 sqM); Potassium 3.7 mmol/L (3.5-5.1); Sodium 138 mmol/L (137-145); Total Bilirubin 0.7 mg/dL (0.2-1.3); Total Protein 5.5 g/dL (6.3-8.2)
[2024-05-16 06:12] LABS: Glucose,Whole Blood 157 mg/dL (70-110)
--- NOTE | 2024-05-16 11:01 | P.PN ---
Subjective Patient is seen in follow-up for acute kidney injury. Renal function better. Complains of swelling in the lower extremities. Did receive IV Lasix yesterday. Has been voiding. On room air. No chest pain or shortness of breath. Vital signs are stable. General: No acute distress. HEENT: Head exam is unremarkable. On room air. LUNGS: No audible rhonchi or wheezes. HEART: Rate and Rhythm are regular. ABDOMEN: Nontender. EXTREMITITES: 2+ edema. Objective - Vital Signs Vital signs: Vital Signs Temp 98.4 F 05/16/24 06:54 Pulse 72 05/16/24 09:19 Resp 20 05/16/24 09:56 BP 165/81 05/16/24 06:54 Pulse Ox 95 05/16/24 06:54 FiO2 Intake & Output 05/15/24 05/16/24 05/16/24 18:59 06:59 18:59 Intake Total 2019 260 Balance 2019 260 Weight 91.5 kg Intake: Oral 2019 260 Other: Voiding Method Toilet Toilet Toilet Urinal Urinal Urinal # Voids 1 - Labs CBC & Chem 7: 05/16/24 03:24 05/16/24 03:24 Labs: Abnormal Lab Results - Last 24 Hours (Table) 05/15/24 05/15/24 05/15/24 Range/Units 05:06 11:25 20:09 WBC (3.8-10.6) k/uL Neutrophils # (1.3-7.7) k/uL Monocytes # (0-1.0) k/uL BUN (9-20) mg/dL Creatinine (0.66-1.25) mg/dL Glucose (74-99) mg/dL POC Glucose (mg/dL) 202 H 254 H (70-110) mg/dL Hemoglobin A1c 11.8 H (<=6.0) % Calcium (8.4-10.2) mg/dL Alkaline Phosphatase (38-126) U/L Total Protein (6.3-8.2) g/dL Albumin (3.5-5.0) g/dL 05/16/24 05/16/24 05/16/24 Range/Units 03:24 03:24 06:09 WBC 13.5 H (3.8-10.6) k/uL Neutrophils # 10.2 H (1.3-7.7) k/uL Monocytes # 1.4 H (0-1.0) k/uL BUN 88 H (9-20) mg/dL Creatinine 1.85 H (0.66-1.25) mg/dL Glucose 217 H (74-99) mg/dL POC Glucose (mg/dL) 157 H (70-110) mg/dL Hemoglobin A1c (<=6.0) % Calcium 8.3 L (8.4-10.2) mg/dL Alkaline Phosphatase 148 H (38-126) U/L Total Protein 5.5 L (6.3-8.2) g/dL Albumin 3.0 L (3.5-5.0) g/dL Assessment and Plan Plan: Assessment: 1. Acute kidney injury secondary to ATN secondary to cardiorenal syndrome. Creatinine 1.12 on admission and peaked at 2.47 - 1.85 today. UA benign. No hydronephrosis noted on ultrasound. 2. Acute on chronic systolic CHF with ejection fraction of 40 to 45%. 3. Diabetes mellitus. 4. Coronary artery disease status post CABG and cardiac stents placement. 5. Volume overload. Plan: Maintain Lasix. Avoid nephrotoxins. Continue to monitor renal function and urine output. Maintain 1500 cc fluid restriction. Add SGLT2 inhibitor. Repeat BMP and magnesium level 2 to 3 days postdischarge. Follow-up outpatient 1 week postdischarge.
[2024-05-16 11:52] LABS: Glucose,Whole Blood 234 mg/dL (70-110)
[2024-05-16] MEDS: DAPAGLIFLOZIN PROPANEDIOL 5 MG TABLET PO SCH (12:42)
[2024-05-16 16:44] LABS: Glucose,Whole Blood 165 mg/dL (70-110)
--- NOTE | 2024-05-16 18:54 | P.PN ---
Subjective Progress Note Date: 05/16/24 HISTORY OF PRESENT ILLNESS: This is a 59-year-old male patient of rosita and Dr. Ga with past medical history of coronary artery disease status post 6 vessel CABG 2006 with MAE to LAD, saphenous venous graft to the PDA, saphenous venous graft to the obtuse marginal one, radial artery to the obtuse marginal branch 2 and saphenous venous graft to the obtuse marginal 3 followed by heart catheterization with PCI and stent of the saphenous venous graft to the RCA in 2015 at which time he pres ented with non-ST elevated myocardial infarction. Most recent cardiac catheterization was performed on 04/10/2022 which revealed severe triple-vessel coronary artery disease with a patent ramus intermediate, patent SVG to the OM, patent MAE to the LAD, and occluded saphenous vein graft to the RCA which is chronic from before. Medical therapy was advised at that time. History of hypertension, hypertensive cardiovascular disease with left ventricular hypertrophy, hyperlipidemia, ischemic cardiomyopathy, paroxysmal atrial fibrillation, currently on Eliquis, diabetes mellitus type 2 with diabetic polyneuropathy, hyperlipidemia, asthma, obstructive sleep apnea on CPAP, chronic low back pain, DVT in the past, patient was recently hospitalized at [facility] between 06/05/2023 and discharged 06/15/2023 after he was admitted for GI bleed due to esophageal ulcer. Patient had EGD and incomplete colonoscopy due to poor prep at that time. Patient presented to the ER at [facility] due to increased cough and increased shortness of breath, was complaining of increased edema in both legs and ws seen by Isaiah Pena and PCR was negative for COVID-19. Influenza A, B annd RSV, CXR showed evidence of CHF with bilateral pleural effusion, with elevated BNP, was started on Furosemide 40 mg IVP q 8 h and was admitted to the hospital for acute on chronic systolic heart failure 05/06: Patient sitting up in bed in no apparent distress, he is feeling better today, he denies any chest pain, shortness of breath, he continues to have a significant coughing, no phlegm production, he continues to complain of pleurisy in his chest, I will start the patient on Solu-Medrol 40 mg a push every 8 ho Pio bianchioNeb 3 nebulization 4 times every day, also Pulmicort 1 mg nebulization twice every day, follow-up with the patient very closely he swelling is a bit better today, his potassium is down we will start potassium supplement 20 mg orally twice every day, follow-up with the patient labs in the next 24 hours, continue current treatment plan, patient was seen in consultation by cardiology recommended to continue current treatment plan 05/07: Patient is feeling better today, he is having less coughing, no chest pain or shortness of breath, he continues to have minimal pleurisy, he has been star raquel on Solu-Medrol 40 mg IV push every 8 hours we will decrease that to every 12 hours, continue with Tessalon Perles 200 mg orally 3 times every day, continue with nebulized treatment in the form of DuoNeb and Pulmicort, hopefully patient will be able to be discharged home in the next 24 hours. Allergy has seen the patient, and they recommended to continue same treatment plan. I will decrease IV Lasix to 40 mg IV push every 12 hours 05/08: Patient sitting up in bed he is complaining of increased swelling in the right upper extremity more than the left upper extremity, continues to have swel ling both lower extremity, he switched to Lasix 40 mg orally twice every day, discontinued Solu-Medrol, start the patient on prednisone 40 mg once every day, continue Zithromax 500 mg once every day, chest x-ray was done showed improvement in the aeration of the lung, continue current treatment plan, keep the patient in the hospital 05/09: Patient is feeling a bit better today, he continues to have some swelling in both lower extremities, he denies any chest pain, less short of breath, he continues to have some cough, he was switched to Symbicort 160/4.5 mcg 2 puffs in elation twice every day he continues to be on DuoNeb treatment nebulization 4 times every day, oxygen support, was seen by cardiology yesterday recommended to continue Lasix 40 mg orally twice every day, monitor input and output and daily weight, increase activity, follow-up with the patient very closely, his kidney function just appears to be worse, he was started on Zaroxolyn 2.5 mg orally today I will discontinue Farxiga, discontinue losartan, monitor the patient blood pressure very closely, ultrasound of the kidneys will be done, nephrology consultation Dr. Pope pulmonary consultation was obtained from Dr. Allen as well. 05/10: Patient is laying down in bed not feeling well at all, he continues to have significant edema in both upper and lower extremities, continue Lasix 40 mg orally twice every day, he was seen in consultation by nephrology who recommended to have a bladder scan since the patient I believe he is retaining urine, even though the ultrasound did not show evidence of any hydronephrosis at this time, there is a lesion in the kidney that need to be evaluated as an outpatient, we will discuss with cardiology and nephrology the possibility of starting the patient on dobutamine drip at this time, to try to improve his cardiac output, to increase his kidney perfusion, keep the patient off losartan, keep the patient off Farxiga for now, monitor the patient input and output and daily weight, avoid nephrotoxins. 05/11: Patient is sitting at the edge of the bed, he is feeling better today, he was taken off dexamethasone since his blood glucose level is all the way up to 400, he was maintained on DuoNeb, as well as Symbicort, he feels a bit better today, he is urinating well, his BUN is still elevated, his creatinine is up to 2.2, he has been on frusemide 40 mg orally twice every day Zaroxolyn 2.5 mg orally once every day will continue with that, follow-up with the patient very closely, nephrology/cardiology/pulmonary medicine is following, patient will be off losartan Farxiga and metformin for now, repeat labs tomorrow morning. 05/12: Patient is not feeling well today, he is kidney function is worsening and a daily basis, I will discontinue metolazone, discontinue Lasix at this time, start the patient on small dose of IV fluid in the form of normal saline 50 cc an hour, patient had a CT scan of the chest without contrast that showed evidence of minimal pleural effusion not significant, patient edema has gone down quite a bit, patient blood glucose level is not controlled, I will switch the patient to insulin drip at this point in time, patient will be transferred to the [facility] area, monitor the patient very closely, follow-up with the patient input and output and daily weight, I will monitor the patient urine output very closely, we will check the patient again in the next 24 hours, patient current condition continues to be worsened we will continue to monitor. 05/13: Patient is sitting up in bed he continues to feel about the same, he continues to be somewhat short of breath, he continues to have some edema in both lower extremities, he continued to have some cough no phlegm production, he was started on insulin drip yesterday, his blood glucose level is much better today, will continue with that, follow-up with the patient very closely, his BUN is a lot worse, 102, he continued to have an acute kidney injury due to acute tubular necrosis and cardiorenal syndrome, he has been started on normal saline at 50 cc an hour, will follow-up with the patient very closely, discussed with nephrology the plan of action at this point in time as the patient kidney function is worsened. Start the patient on protein drink in the form of Glucerna 3 times every day 05/14: Patient is assessed sitting up in bed denies any chest pain, he is less short of breath, he continues to have increased swelling in both lower extremities, he has no coughing at this point, he has no hemoptysis, he continues to have increased abdominal distention, he is not urinating as much, his BUN is up to 111, and creatinine 2.47, continue to have hyperglycemia, continue insulin drip for during the day, I will transition to Lantus this evening at 42 units and Humalog at 11 units with each meal 3 times every day, along with a sliding scale insulin but for now we will continue with insulin drip until his blood glucose level around 125 to 145 mg/dL. 05/15: Patient sitting up in bed in no apparent distress, he continues to be somewhat short of breath, he continues to have some swelling both lower extremities, he was taken off amlodipine, he was switched from insulin drip to Lantus 42 units at bedtime along with NovoLog 9 units plus the sliding scale, will continue follow-up with the patient very closely, his BUN is down to 102, his creatinine down to 2.02, increase oral intake of protein, continue to follow-up with the patient very closely, hopefully home in the next few days when the BUN is trending down 05/16: Patient is sitting up in bed in no apparent distress, he has occasional cough, not as bad as he was., Patient was seen by nephrology yesterday Lasix was added again at 40 mg orally once every day, his BUN is down to 88, his creatinine is down to 1.87, still not at baseline, continue protein intake, continue follow-up with the patient very closely, continue input and output and daily weight continue fluid restriction, will follow-up with the patient very closely. REVIEW OF SYSTEMS: Constitutional: No documented fever, no chills, no night sweats. No weight change. Positive for weakness, positive for fatigue, no lethargy. No daytime sleepiness. HEENT: No headache. No blurred vision or double vision, no loss of vision. No loss of Hearing, no ringing in the ears, no dizziness. No nasal drainage or congestion. No epistaxis. No sore throat. Lungs: last shortness of breath, occasional cough, no sputum production. no wheezing. Reports dyspnea with activity. Cardiovascular: no chest pain, positive for lower extremity edema. No palpita tions. No paroxysmal nocturnal dyspnea. No orthopnea. positive for lightheadedness or dizziness. No syncopal episodes. Abdominal: Reports no abdominal pain. no nausea, vomiting. No diarrhea. No constipation. No bloody or tarry stools reports loss of appetite. Genitourinary: No dysuria, decreased urinary output, urgency. No urinary retention. Musculoskeletal: No myalgias. positive for muscle weakness, no gait dysfunction, frequent falls. No back pain. No neck pain. Integumentary: scabbed wounds to left caballero , no lesions. No rash or pruritus. No unusual bruising. No change in hair or nails. Neurologic: No aphasia. Minimal facial droop. No change in mentation. No head injury. No headache, minimal drift. Psychiatric: positive for depression. No anxiety. No mood swings. Endocrine: abnormal blood sugars. No weight change. PHYSICAL EXAMINATION: General: 59-year-old male laying down in no respiratory distress. HEENT: Head is atraumatic, normocephalic, pupils were equal round reactive to light and recommendation, extraocular muscle movement were intact, sclera nonicteric, conjunctivae were pale, mucous membranes of the mouth are somewhat dry. Neck: Supple, no JVP, normal carotid upstroke bilaterally, no lymphadenopathy. Chest: Decreased breath sounds at the bases, no rhonchi, no expiratory wheezes, no chest wall tenderness, no intercostal retractions Heart: First heart sound is normal, second heart sounds normal, there is systolic ejection murmur 2/6 located in the left sternal border. Abdomen: Soft, nontender, nondistended, positive bowel sounds, there is no hepatosplenomegaly Extremities: There is +2 edema no calf tenderness DP +1 bilaterally. Neurologic examination: Patient is awake alert and oriented X 3, cranial nerves II-12 appear grossly intact, muscle power were 4 out of 5 in upper extremities and 4 out of 5 in bilateral lower extremities, deep tendon reflexes normal bilaterally. Minimal right facial droop, and right leg weakness. ASSESSMENT AND PLAN: 1. Acute on chronic systolic heart failure . Patient was taken off Lasix and metolazone for today, due to his current acute kidney injury patient was taken off losartan, Farxiga, due to acute kidney injury he was maintained on carvedilol 25 mg orally twice every day hydralazine 25 mg 3 times every day, follow-up with the patient very closely. 2. Acute kidney injury due to cardiorenal syndrome And vasomotor nephropathy. Patient BUN started to come back down to 88, he has been on Lasix 40 mg once a day, Farxiga was added 5 mg once every day, monitor the patient input and output and daily weight, likely will discharge the patient home tomorrow morning. Follow-up with us as an outpatient in 1 week. 3. Acute on chronic bronchitis. Much better now no evidence of any acute abnormalities on the CT scan of the chest that was done by pulmonary medicine, discontinue prednisone, continue nebulized treatment as needed, oxygen support as needed he is currently on room air. 4. Hypertension and hypertensive cardiovascular disease. Off losartan, and amlodipine continue patient on Carvedilol 25 mg orally twice every day, continue with Hydralazine as well and monitor BP very closely. 5. Diabetes mellitus type 2 with steroid-induced hyperglycemia. Continue pat ient on Lantus 48 units at bedtime along with Humalog 12 units plus sliding scale insulin. 6. Coronary artery disease status post CABG 6 as well as PCI in the past. Continue patient on ASA 81 mg once every day, Carvedilol 25 mg orally twice every day, continue patient on atorvastatin 80 mg orally once every day, continue Zetia 10 mg orally once every day. 7. Hyperlipidemia. Continue patient on atorvastatin 80 mg once every day, continue Zetia 10 mg orally once every day, monitor lipid panel, keep LDL 55-70. 8. Diabetic polyneuropathy. decrease gabapentin to 300 mg at bedtime. 9. Obstructive sleep apnea. Patient does have a CPAP at home. 10. Paroxysmal atrial fibrillation . Continue patient on Coreg 25 mg orally twice every day, Eliquis 5 mg po bid. 11. DVT prophylaxis. Continue Eliquis 5 mg orally twice every day. 12. GI prophylaxis. Continue Protonix 40 mg orally once every day 13. History of CVA in the past recovered well, we will continue with Atorvastatin 80 mg po daily and Eliquis for life 14. Hypokalemia status post replacement. Decrease potassium supplement to once every day. 15. Overall prognosis is very guarded. 16. Home tomorrow morning. Objective - Vital Signs Vital signs: Vital Signs Temp 98.3 F 05/16/24 03:20 Pulse 75 05/16/24 03:20 Resp 16 05/16/24 03:20 BP 154/71 05/16/24 03:20 Pulse Ox 93 L 05/16/24 03:20 FiO2 Intake & Output 05/15/24 05/16/24 05/16/24 18:59 06:59 18:59 Intake Total 2019 260 Balance 2019 260 Weight 91.5 kg Intake: Oral 2019 260 Other: Voiding Method Toilet Toilet Urinal Urinal # Voids 1 - Labs CBC & Chem 7: 05/16/24 03:24 05/16/24 03:24 Labs: Abnormal Lab Results - Last 24 Hours (Table) 05/15/24 05/15/24 05/15/24 Range/Units 05:06 11:25 20:09 WBC (3.8-10.6) k/uL Neutrophils # (1.3-7.7) k/uL Monocytes # (0-1.0) k/uL BUN (9-20) mg/dL Creatinine (0.66-1.25) mg/dL Glucose (74-99) mg/dL POC Glucose (mg/dL) 202 H 254 H (70-110) mg/dL Hemoglobin A1c 11.8 H (<=6.0) % Calcium (8.4-10.2) mg/dL Alkaline Phosphatase (38-126) U/L Total Protein (6.3-8.2) g/dL Albumin (3.5-5.0) g/dL 03/25/25 03/25/25 03/25/25 Range/Units 03:24 03:24 06:09 WBC 13.5 H (3.8-10.6) k/uL Neutrophils # 10.2 H (1.3-7.7) k/uL Monocytes # 1.4 H (0-1.0) k/uL BUN 88 H (9-20) mg/dL Creatinine 1.85 H (0.66-1.25) mg/dL Glucose 217 H (74-99) mg/dL POC Glucose (mg/dL) 157 H (70-110) mg/dL Hemoglobin A1c (<=6.0) % Calcium 8.3 L (8.4-10.2) mg/dL Alkaline Phosphatase 148 H (38-126) U/L Total Protein 5.5 L (6.3-8.2) g/dL Albumin 3.0 L (3.5-5.0) g/dL
[2024-05-16 20:41] LABS: Glucose,Whole Blood 71 mg/dL (70-110)
[2024-05-16 21:01] LABS: Glucose,Whole Blood 71 mg/dL (70-110)
[2024-05-16 21:39] LABS: Glucose,Whole Blood 109 mg/dL (70-110)
[2024-05-17 06:22] LABS: Glucose,Whole Blood 116 mg/dL (70-110)
[2024-05-17 07:36] VITALS: BP 150/73; PULSE 71; TEMP 98.7
[2024-05-17 08:53] LABS: ALT 41 U/L (10-49); AST 34 U/L (14-35); Albumin 3.1 g/dL (3.8-4.9); Albumin/Globulin Ratio 1.41 Ratio (1.60-3.17); Alkaline Phosphatase 112 U/L (41-126); BUN/Creat Ratio 34.75 Ratio (12.00-20.00); Blood Urea Nitrogen 55.6 mg/dL (9.0-27.0); Calcium 8.1 mg/dL (8.7-10.3); Carbon Dioxide 26.6 mmol/L (21.6-31.8); Chloride 108 mmol/L (96-109); Globulin 2.2 g/dL (1.6-3.3); Glucose 85 mg/dL (70-110); Potassium 3.6 mmol/L (3.5-5.5); Sodium 145 mmol/L (135-145); Total Bilirubin 0.7 mg/dL (0.3-1.2); Total Protein 5.3 g/dL (6.2-8.2)
--- NOTE | 2024-05-17 08:56 | P.DS ---
Providers Date of admission: 05/05/24 17:19 Expected date of discharge: 05/17/24 Attending physician: Kelly Montesinos Consults: 05/05/24 18:42 Consult Physician Routine Consulting Provider: Jorge Luis Ga Consult Reason/Comments: CHF Do you want consulting provider notified?: Yes 05/09/24 08:56 Consult Physician Routine Consulting Provider: Darrius Allen Consult Reason/Comments: dyspnea. cough, COPD bronchitis Do you want consulting provider notified?: Yes 05/09/24 18:18 Consult Physician Routine Consulting Provider: Jahaira Pope Consult Reason/Comments: IVONE/ ATN Do you want consulting provider notified?: Yes Primary care physician: Kelly Montesinos Hospital Course: HISTORY OF PRESENT ILLNESS: This is a 59-year-old male patient of rosita and Dr. Ga with past m edical history of coronary artery disease status post 6 vessel CABG 2006 with MAE to LAD, saphenous venous graft to the PDA, saphenous venous graft to the obtuse marginal one, radial artery to the obtuse marginal branch 2 and saphenous venous graft to the obtuse marginal 3 followed by heart catheterization with PCI and stent of the saphenous venous graft to the RCA in 2015 at which time he presented with non-ST elevated myocardial infarction. Most recent cardiac catheterization was performed on 04/10/2022 which revealed severe triple-vessel coronary artery disease with a patent ramus intermediate, patent SVG to the OM, patent MAE to the LAD, and occluded saphenous vein graft to the RCA which is chronic from before. Medical therapy was advised at that time. History of hypertension, hypertensive cardiovascular disease with left ventricular hypertrophy, hyperlipidemia, ischemic cardiomyopathy, paroxysmal atrial fibrillation, currently on Eliquis, diabetes mellitus type 2 with diabetic p olyneuropathy, hyperlipidemia, asthma, obstructive sleep apnea on CPAP, chronic low back pain, DVT in the past, patient was recently hospitalized at [facility] between 06/05/2023 and discharged 06/15/2023 after he was admitted for GI bleed due to esophageal ulcer. Patient had EGD and incomplete colonoscopy due to poor prep at that time. Patient presented to the ER at [facility] due to increased cough and increased shortness of breath, was complaining of increased edema in both legs and ws seen by Isaiah Pena and PCR was negative for COVID-19. Influenza A, B annd RSV, CXR showed evidence of CHF with bilateral pleural effusion, with elevated BNP, was started on Furosemide 40 mg IVP q 8 h and was admitted to the hospital for acute on chronic systolic heart failure 05/06: Patient sitting up in bed in no apparent distress, he is feeling better today, he denies any chest pain, shortness of breath, he continues to have a significant coughing, no phlegm production, he continues to complain of pleurisy in his chest, I will start the patient on Solu-Medrol 40 mg a push every 8 hours, DuoNeb 3 nebulization 4 times every day, also Pulmicort 1 mg nebulization twice every day, follow-up with the patient very closely he swelling is a bit better today, his potassium is down we will start potassium supplement 20 mg orally twice every day, follow-up with the patient labs in the next 24 hours, continue current treatment plan, patient was seen in consultation by cardiology recommended to continue current treatment plan 05/07: Patient is feeling better today, he is having less coughing, no chest pain or shortness of breath, he continues to have minimal pleurisy, he has been started on Solu-Medrol 40 mg IV push every 8 hours we will decrease that to every 12 hours, continue with Tessalon Perles 200 mg orally 3 times every day, continue with nebulized treatment in the form of DuoNeb and Pulmicort, hopefully patient will be able to be discharged home in the next 24 hours. Allergy has seen the patient, and they recommended to continue same treatment plan. I will decrease IV Lasix to 40 mg IV push every 12 hours 05/08: Patient sitting up in bed he is complaining of increased swelling in the right upper extremity more than the left upper extremity, continues to have swelling both lower extremity, he switched to Lasix 40 mg orally twice every day, discontinued Solu-Medrol, start the patient on prednisone 40 mg once every day, continue Zithromax 500 mg once every day, chest x-ray was done showed improvement in the aeration of the lung, continue current treatment plan, keep the patient in the hospital 05/09: Patient is feeling a bit better today, he continues to have some swelling in both lower extremities, he denies any chest pain, less short of breath, he continues to have some cough, he was switched to Symbicort 160/4.5 mcg 2 puffs in elation twice every day he continues to be on DuoNeb treatment nebulization 4 times every day, oxygen support, was seen by cardiology yesterday recommended to continue Lasix 40 mg orally twice every day, monitor input and output and daily weight, increase activity, follow-up with the patient very closely, his kidney function just appears to be worse, he was started on Zaroxolyn 2.5 mg orally today I will discontinue Farxiga, discontinue losartan, monitor the patient blood pressure very closely, ultrasound of the kidneys will be done, nephrology consultation Dr. Pope pulmonary consultation was obtained from Dr. Allen as well. 05/10: Patient is laying down in bed not feeling well at all, he continues to have significant edema in both upper and lower extremities, continue Lasix 40 mg orally twice every day, he was seen in consultation by nephrology who recommended to have a bladder scan since the patient I believe he is retaining urine, even though the ultrasound did not show evidence of any hydronephrosis at this time, there is a lesion in the kidney that need to be evaluated as an outpatient, we will discuss with cardiology and nephrology the possibility of starting the patient on dobutamine drip at this time, to try to improve his cardiac output, to increase his kidney perfusion, keep the patient off losartan, keep the patient off Farxiga for now, monitor the patient input and output and daily weight, avoid nephrotoxins. 05/11: Patient is sitting at the edge of the bed, he is feeling better today, he was taken off dexamethasone since his blood glucose level is all the way up to 400, he was maintained on DuoNeb, as well as Symbicort, he feels a bit better today, he is urinating well, his BUN is still elevated, his creatinine is up to 2.2, he has been on frusemide 40 mg orally twice every day Zaroxolyn 2.5 mg orally once every day will continue with that, follow-up with the patient very closely, nephrology/cardiology/pulmonary medicine is following, patient will be off losartan Farxiga and metformin for now, repeat labs tomorrow morning. 05/12: Patient is not feeling well today, he is kidney function is worsening and a daily basis, I will discontinue metolazone, discontinue Lasix at this time, start the patient on small dose of IV fluid in the form of normal saline 50 cc an hour, patient had a CT scan of the chest without contrast that showed evidence of minimal pleural effusion not significant, patient edema has gone down quite a bit, patient blood glucose level is not controlled, I will switch the patient to insulin drip at this point in time, patient will be transferred to the [facility] area, monitor the patient very closely, follow-up with the patient input and output and daily weight, I will monitor the patient urine output very closely, we will check the patient again in the next 24 hours, patient current condition continues to be worsened we will continue to monitor. 05/13: Patient is sitting up in bed he continues to feel about the same, he continues to be somewhat short of breath, he continues to have some edema in both lower extremities, he continued to have some cough no phlegm production, he was started on insulin drip yesterday, his blood glucose level is much better today, will continue with that, follow-up with the patient very closely, his BUN is a lot worse, 102, he continued to have an acute kidney injury due to acute tubular necrosis and cardiorenal syndrome, he has been started on normal saline at 50 cc an hour, will follow-up with the patient very closely, discussed with nephrology the plan of action at this point in time as the patient kidney function is worsened. Start the patient on protein drink in the form of Glucerna 3 times every day 05/14: Patient is assessed sitting up in bed denies any chest pain, he is less short of breath, he continues to have increased swelling in both lower extremities, he has no coughing at this point, he has no hemoptysis, he continues to have increased abdominal distention, he is not urinating as much, his BUN is up to 111, and creatinine 2.47, continue to have hyperglycemia, continue insulin drip for during the day, I will transition to Lantus this evening at 42 units and Humalog at 11 units with each meal 3 times every day, along with a sliding scale insulin but for now we will continue with insulin drip until his blood glucose level around 125 to 145 mg/dL. 05/15: Patient sitting up in bed in no apparent distress, he continues to be somewhat short of breath, he continues to have some swelling both lower extremities, he was taken off amlodipine, he was switched from insulin drip to Lantus 42 units at bedtime along with NovoLog 9 units plus the sliding scale, will continue follow-up with the patient very closely, his BUN is down to 102, his creatinine down to 2.02, increase oral intake of protein, continue to follow-up with the patient very closely, hopefully home in the next few days when the BUN is trending down 05/16: Patient is sitting up in bed in no apparent distress, he has occasional cough, not as bad as he was., Patient was seen by nephrology yesterday Lasix was added again at 40 mg orally once every day, his BUN is down to 88, his creatinine is down to 1.87, still not at baseline, continue protein intake, continue follow-up with the patient very closely, continue input and output and daily weight continue fluid restriction, will follow-up with the patient very closely. 05/17: Patient is doing better today, he denies any chest pain, shortness of breath, he continues to have occasional cough, he has no abdominal pain, nausea vomiting or diarrhea he continues to have some swelling both lower extremity right lower extremity more in the left lower extremity, he was started on Lasix 40 mg once every day, he is diuresing well, he was also started on Farxiga 5 mg orally once every day, I will discharge the patient home today, follow-up with me as an outpatient next week, we will recheck his BMP and labs in the next week. Discharge diagnosis: 1. Acute on chronic systolic heart failure . 2. Acute kidney injury due to cardiorenal syndrome And vasomotor nephropathy. 3. Acute on chronic bronchitis. 4. Hypertension and hypertensive cardiovascular disease. 5. Diabetes mellitus type 2 with steroid-induced hyperglycemia. 6. Coronary artery disease status post CABG 6 as well as PCI in the past. 7. Ischemic cardiomyopathy. 8 Hyperlipidemia. 9. Diabetic polyneuropathy. 10. Obstructive sleep apnea. 11. Paroxysmal atrial fibrillation . 12. History of CVA in the past recovered well 13. Hypokalemia status post replacement. Plan - Discharge Summary Discharge Rx Participant: Yes New Discharge Prescriptions: No Action Ezetimibe [Zetia] 10 mg PO DAILY Atorvastatin [Lipitor] 80 mg PO DAILY metFORMIN HCL 1,000 mg PO BID carvediloL [Coreg] 25 mg PO BID Furosemide [Lasix] 40 mg PO BID@0900,1600 #60 tab Gabapentin 300 mg PO BID Dapagliflozin Propanediol [Farxiga] 10 mg PO DAILY Losartan Potassium [Cozaar] 100 mg PO DAILY #30 tablet Insulin Aspart [NovoLOG Flexpen] 9 - 12 units SQ TID-W/MEALS amLODIPine [Norvasc] 5 mg PO DAILY Insulin Glargine,Hum.rec.anlog [Basaglar Kwikpen U-100] 30 unit SQ HS Apixaban [Eliquis] 5 mg PO BID hydrALAZINE HCL [Apresoline] 25 mg PO TID Discharge Medication List Ezetimibe [Zetia] 10 mg PO DAILY 12/15/20 [History] Losartan Potassium [Cozaar] 100 mg PO DAILY #30 tablet 03/18/22 [Rx] Atorvastatin [Lipitor] 80 mg PO DAILY 04/09/22 [History] metFORMIN HCL 1,000 mg PO BID 04/09/22 [History] Insulin Aspart [NovoLOG Flexpen] 9 - 12 units SQ TID-W/MEALS 06/05/23 [History] carvediloL [Coreg] 25 mg PO BID 06/05/23 [History] Furosemide [Lasix] 40 mg PO BID@0900,1600 #60 tab 06/15/23 [Rx] Apixaban [Eliquis] 5 mg PO BID 05/05/24 [History] Dapagliflozin Propanediol [Farxiga] 10 mg PO DAILY 05/05/24 [History] Gabapentin 300 mg PO BID 05/05/24 [History] Insulin Glargine,Hum.rec.anlog [Basaglar Kwikpen U-100] 30 unit SQ HS 05/05/24 [History] amLODIPine [Norvasc] 5 mg PO DAILY 05/05/24 [History] hydrALAZINE HCL [Apresoline] 25 mg PO TID 05/05/24 [History] Follow up Appointment(s)/Referral(s): Kelly Montesinos MD [Primary Care Provider] - 1-2 days
[2024-05-17 09:21] VITALS: RESP 18
[2024-05-17 10:10] LABS: Basophils # (A) 0.03 X 10*3/uL (0.00-0.10); Basophils % (A) 0.2 %; Elliptocytes 2+ (None Seen); Eosinophils # (A) 0.18 X 10*3/uL (0.04-0.35); Eosinophils % (A) 1.1 %; HCT 40.8 % (39.6-50.0); HGB 12.9 g/dL (13.0-17.0); Lymphocytes # (A) 1.12 X 10*3/uL (0.90-5.00); Lymphocytes % (A) 6.6 %; MCH 25.5 pg (27.0-32.0); MCHC 31.6 g/dL (32.0-37.0); MCV 80.8 FL (80.0-97.0); Mean Platelet Volume 11.1 FL (9.5-12.2); Monocytes # (A) 2.55 X 10*3/uL (0.20-1.00); NRBC Per 100 WBC 0 X 10*3/uL (0.00-0.01); Neutrophils # (A) 12.91 X 10*3/uL (1.80-7.70); Neutrophils % (A) 76.1 %; Platelet Count 194 X 10*3/uL (140-440); RBC 5.05 X 10*6/uL (4.40-5.60); WBC 16.96 X 10*3/uL (4.50-10.00)
--- NOTE | 2024-05-17 10:34 | P.PN ---
Subjective Patient is seen in follow-up for acute kidney injury. Renal function better. Admits to good urine output. Edema improving. Denies chest pain or shortness of breath. Vital signs are stable. General: No acute distress. HEENT: Head exam is unremarkable. On room air. LUNGS: No audible rhonchi or wheezes. HEART: Rate and Rhythm are regular. ABDOMEN: Nontender. EXTREMITITES: 1+ edema. Objective - Vital Signs Vital signs: Vital Signs Temp 98.7 F 05/17/24 07:15 Pulse 71 05/17/24 07:15 Resp 18 05/17/24 09:18 BP 150/73 05/17/24 07:15 Pulse Ox 97 05/17/24 07:15 FiO2 Intake & Output 05/16/24 05/17/24 05/17/24 18:59 06:59 18:59 Intake Total 540 Output Total 1000 Balance -460 Weight 91.5 kg Intake: Oral 540 Output: Urine 1000 Other: Voiding Method Toilet Toilet Urinal Urinal # Voids 3 - Labs CBC & Chem 7: 05/17/24 03:15 05/17/24 03:15 Labs: Abnormal Lab Results - Last 24 Hours (Table) 05/16/24 05/16/24 05/17/24 Range/Units 11:50 16:42 03:15 WBC 16.96 H (4.50-10.00) X 10*3/uL Hgb 12.9 L (13.0-17.0) g/dL MCH 25.5 L (27.0-32.0) pg MCHC 31.6 L (32.0-37.0) g/dL RDW 16.0 H (11.5-14.5) % Immature Gran # 0.17 H (0.00-0.04) X 10*3/uL Neutrophils # 12.91 H (1.80-7.70) X 10*3/uL Monocytes # 2.55 H (0.20-1.00) X 10*3/uL Elliptocytes 2+ A (None Seen) BUN (9.0-27.0) mg/dL Creatinine (0.6-1.5) mg/dL Est GFR (CKD-EPI) (>=60) BUN/Creatinine Ratio (12.00-20.00) Ratio POC Glucose (mg/dL) 234 H 165 H (70-110) mg/dL Calcium (8.7-10.3) mg/dL Total Protein (6.2-8.2) g/dL Albumin (3.8-4.9) g/dL Albumin/Globulin Ratio (1.60-3.17) Ratio 05/17/24 05/17/24 Range/Units 03:15 06:17 WBC (4.50-10.00) X 10*3/uL Hgb (13.0-17.0) g/dL MCH (27.0-32.0) pg MCHC (32.0-37.0) g/dL RDW (11.5-14.5) % Immature Gran # (0.00-0.04) X 10*3/uL Neutrophils # (1.80-7.70) X 10*3/uL Monocytes # (0.20-1.00) X 10*3/uL Elliptocytes (None Seen) BUN 55.6 H (9.0-27.0) mg/dL Creatinine 1.6 H (0.6-1.5) mg/dL Est GFR (CKD-EPI) 49 L (>=60) BUN/Creatinine Ratio 34.75 H (12.00-20.00) Ratio POC Glucose (mg/dL) 116 H (70-110) mg/dL Calcium 8.1 L (8.7-10.3) mg/dL Total Protein 5.3 L (6.2-8.2) g/dL Albumin 3.1 L (3.8-4.9) g/dL Albumin/Globulin Ratio 1.41 L (1.60-3.17) Ratio Assessment and Plan Plan: Assessment: 1. Acute kidney injury secondary to ATN secondary to cardiorenal syndrome. Creatinine 1.12 on admission and peaked at 2.47 - 1.6 today. UA benign. No hydronephrosis noted on ultrasound. 2. Acute on chronic systolic CHF with ejection fraction of 40 to 45%. 3. Diabetes mellitus. 4. Coronary artery disease status post CABG and cardiac stents placement. 5. Volume overload. Improved with diuresis. Plan: Maintain Lasix. Avoid nephrotoxins. Continue to monitor renal function and urine output. Maintain 1500 cc fluid restriction. Maintain SGLT2 inhibitor. Repeat BMP and magnesium level 2 to 3 days postdischarge. Follow-up outpatient 1 week postdischarge.
[2024-05-17] MEDS: POTASSIUM CHLORIDE ER 20 MEQ TAB.ER PO STA (11:03)
[2024-05-17 12:07] LABS: Glucose,Whole Blood 117 mg/dL (70-110)
== END 2024-05-17 12:55 | disposition home or self-care (01) | DRG 291 ==
LOC: EC 13:42 → 6NMEDSUR 17:18 → OBSVTOIN 17:19 → 6NMEDSUR 22:11 → 3SCARD 05-12 15:02 → 4SSUR 05-16 02:01
PROVIDERS: ADMIT Internal Medicine; ATTEND Internal Medicine
DX: I13.0 Hypertensive heart and chronic kidney disease with heart failure and stage 1 through stage 4 chronic kidney disease, or unspecified chronic kidney disease (principal); I50.23 Acute on chronic systolic (congestive) heart failure; N17.0 Acute kidney failure with tubular necrosis; J44.0 Chronic obstructive pulmonary disease with (acute) lower respiratory infection; I27.20 Pulmonary hypertension, unspecified; J44.1 Chronic obstructive pulmonary disease with (acute) exacerbation; E11.65 Type 2 diabetes mellitus with hyperglycemia; I37.1 Nonrheumatic pulmonary valve insufficiency; I48.19 Other persistent atrial fibrillation; E87.1 Hypo-osmolality and hyponatremia; J98.11 Atelectasis; B02.29 Other postherpetic nervous system involvement; I25.810 Atherosclerosis of coronary artery bypass graft(s) without angina pectoris; E11.22 Type 2 diabetes mellitus with diabetic chronic kidney disease; E11.42 Type 2 diabetes mellitus with diabetic polyneuropathy; Z79.4 Long term (current) use of insulin; J45.20 Mild intermittent asthma, uncomplicated; I25.10 Atherosclerotic heart disease of native coronary artery without angina pectoris; I25.5 Ischemic cardiomyopathy; N18.2 Chronic kidney disease, stage 2 (mild); I08.1 Rheumatic disorders of both mitral and tricuspid valves; E87.6 Hypokalemia; G47.33 Obstructive sleep apnea (adult) (pediatric); T50.2X5A Adverse effect of carbonic-anhydrase inhibitors, benzothiadiazides and other diuretics, initial encounter; T38.0X5A Adverse effect of glucocorticoids and synthetic analogues, initial encounter; I25.2 Old myocardial infarction; E78.5 Hyperlipidemia, unspecified; G89.29 Other chronic pain; M54.50 Low back pain, unspecified; K21.9 Gastro-esophageal reflux disease without esophagitis; Z79.01 Long term (current) use of anticoagulants; Z79.84 Long term (current) use of oral hypoglycemic drugs; Z79.899 Other long term (current) drug therapy; Z95.5 Presence of coronary angioplasty implant and graft; Z86.73 Personal history of transient ischemic attack (TIA), and cerebral infarction without residual deficits; Z86.718 Personal history of other venous thrombosis and embolism; Z98.1 Arthrodesis status; Z86.14 Personal history of Methicillin resistant Staphylococcus aureus infection; Z88.1 Allergy status to other antibiotic agents; J20.9 Acute bronchitis, unspecified
CPT/HCPCS: 36415; 71045; 71046; 71250; 76770; 80053; 81003; 82947; 83036; 83605; 83735; 83880; 84100; 84484; 85025; 85027; 85610; 85730; 87635; 87636; 93005; 94640; 94760; 96374; 99285

== ENCOUNTER 2024-05-21 19:40 | Inpatient (IN) | payer MEDICARE ==
--- NOTE | 2024-05-21 20:16 | ED ---
General Adult HPI - General Chief complaint: Recheck/Abnormal Lab/Rx Stated complaint: swelling of groins Time Seen by Provider: 05/21/24 19:56 Source: patient, RN notes reviewed - History of Present Illness Initial comments: 59-year-old male presents to the emergency department for evaluation of scrotal swelling. Patient states that he was discharged on for CHF exacerbation. He went home and was doing somewhat better until yesterday. He noted some swelling in his scrotum which has gotten worse today. He also notes swelling in his lower extremities and into his thighs. He notes that his belly feels a bit distended as well. His breathing is still difficult with orthopnea. He reports that because of the swelling he is having urine leakage. He denies any fever, chills. He admits to discomfort in the scrotum that he believes is due to the swelling. - Related Data Home Medications Medication Instructions Recorded Confirmed Ezetimibe [Zetia] 10 mg PO DAILY 12/15/20 05/05/24 Atorvastatin [Lipitor] 80 mg PO DAILY 04/09/22 05/05/24 carvediloL [Coreg] 25 mg PO BID 06/05/23 05/05/24 Apixaban [Eliquis] 5 mg PO BID 05/05/24 05/08/24 hydrALAZINE HCL [Apresoline] 25 mg PO TID 05/05/24 05/05/24 Previous Rx's Medication Instructions Recorded Budesonide-Formot 160-4.5 Mcg 2 puff INHALATION RT-BID #1 each 05/17/24 [Symbicort 160-4.5 Mcg Inhaler] Dapagliflozin Propanediol [Farxiga] 5 mg PO DAILY #30 tab 05/17/24 Furosemide [Lasix] 40 mg PO DAILY #30 tab 05/17/24 Gabapentin 300 mg PO HS #0 05/17/24 INSULIN LISPRO (HumaLOG) [HumaLOG] 0 unit SQ ACHS each 05/17/24 INSULIN LISPRO (HumaLOG) [HumaLOG] 12 unit SQ AC-TID each 05/17/24 Insulin Glargine (Lantus) [Lantus 48 unit SQ HS each 05/17/24 Vial] Pantoprazole [Protonix] 40 mg PO AC-BRKFST #30 tab 05/17/24 Potassium Chloride ER [K-Dur 20] 20 meq PO DAILY #30 tab 05/17/24 Allergies Allergy/AdvReac Type Severity Reaction Status Date / Time adhesive tape Allergy Severe Rash/Hives Verified 05/21/24 19:49 vancomycin Allergy Mild Head Itches Verified 05/21/24 19:49 Review of Systems ROS Statement: Those systems with pertinent positive or pertinent negative responses have been documented in the HPI. ROS Other: All systems not noted in ROS Statement are negative. Past Medical History Past Medical History: Asthma, Coronary Artery Disease (CAD), Chest Pain / Angina, Diabetes Mellitus, Deep Vein Thrombosis (DVT), Hyperlipidemia, Hypertension, Myocardial Infarction (NV), Sleep Apnea/CPAP/BIPAP Additional Past Medical History / Comment(s): Obstructive sleep apnea CPAP, bronchitis, IDDM type II, DVT L leg, cellulitis L leg 2012 cellulitis L Arm 2017, diabetic neuropathy affects feet and hands, chronic kidney disease stage II Last Myocardial Infarction Date:: 06/23/13 History of Any Multi-Drug Resistant Organisms: Acinetobacter (MDRO), MRSA Date of last positivie culture/infection: 08/2014 MDRO Source:: abdomen around navel Past Surgical History: Back Surgery, Coronary Bypass/CABG, Heart Catheterization, Heart Catheterization With Stent, Hernia Repair Additional Past Surgical History / Comment(s): Cardiac caths, PCI with stents (4total), 2006 CABG 6 vessels, spinal fusion L4-L5, fasciotomy left thigh, bilateral inguinal hernia repairs, I&D L forearm with dehisence then compartment syndrome with fasciotomy Left forearm - June 2016, teeth extraction Past Anesthesia/Blood Transfusion Reactions: No Reported Reaction Date of Last Stent Placement:: 08/28/15 Past Psychological History: No Psychological Hx Reported Smoking Status: Never smoker Past Alcohol Use History: None Reported Past Drug Use History: None Reported - Past Family History Brother(s) History Unknown: Yes Additional Family Medical History / Comment(s): Patient has 1 brother and 1 sister with no major medical problems. Mother History Unknown: Yes Family Medical History: Congestive Heart Failure (CHF), Diabetes Mellitus Additional Family Medical History / Comment(s): Mother at the age of 84 from with history of chronic renal disease stage. Father History Unknown: Yes Family Medical History: COPD, Coronary Artery Disease (CAD), Myocardial Infarction (NV) Additional Family Medical History / Comment(s): Father of a NV at the age of 60 yrs with history of COPD. Sister(s) History Unknown: Yes Family Medical History: Rheumatoid Arthritis (RA) Additional Family Medical History / Comment(s): Patient has 1 sister with no major medical problems. General Exam Limitations: no limitations General appearance: alert, in no apparent distress Head exam: Present: atraumatic, normocephalic, normal inspection Eye exam: Present: normal appearance, PERRL, EOMI. Absent: scleral icterus, conjunctival injection, periorbital swelling ENT exam: Present: normal exam, mucous membranes moist Neck exam: Present: normal inspection. Absent: tenderness, meningismus, lymphadenopathy Respiratory exam: Present: rales. Absent: respiratory distress Cardiovascular Exam: Present: regular rate, normal rhythm, normal heart sounds. Absent: systolic murmur, diastolic murmur, rubs, gallop, clicks GI/Abdominal exam: Present: distended, normal bowel sounds. Absent: tenderness, guarding, rebound, rigid exam: Present: scrotal swelling (scrotal edema with no overlying erythema, wounds, warmth) Extremities exam: Present: full ROM, normal capillary refill, pedal edema, other (Lower extremity edema 3+ pitting). Absent: tenderness, joint swelling, calf tenderness Neurological exam: Present: alert, oriented X3 Psychiatric exam: Present: normal affect, normal mood Skin exam: Present: warm, dry, intact, normal color. Absent: rash Course Vital Signs 05/21/24 05/22/24 19:46 00:10 Temperature 97.9 F Pulse Rate 88 67 Respiratory 18 15 Rate Blood Pressure 168/82 151/87 O2 Sat by Pulse 93 L 96 Oximetry Medical Decision Making - Medical Decision Making Was pt. sent in by a medical professional or institution (, PA, D[employer] WORKER, urgent care, hospital, or [facility]...) When possible be specific @ -No Did you speak to anyone other than the patient for history (EMS, parent, family, police, friend...)? What history was obtained from this source @ -No Did you review nursing and triage notes (agree or disagree)? Why? @ -I reviewed and agree with nursing and triage notes Were old charts reviewed (outside hosp., previous admission, EMS record, old EKG, old radiological studies, urgent care reports/EKG's, [facility] records)? Report findings @ -No old charts were reviewed Differential Diagnosis (chest pain, altered mental status, abdominal pain women, abdominal pain men, vaginal bleeding, weakness, fever, dyspnea, syncope, headache, dizziness, GI bleed, back pain, seizure, CVA, palpatations, mental health, musculoskeletal)? @ -Differential Dyspnea: Coronary syndrome, arrhythmia, tamponade, asthma, COPD, pulmonary embolism, pneumonia, pneumothorax, pulmonary effusion, anaphylaxis, diabetic ketoacidosis, flailed chest, pulmonary contusion, diaphragmatic rupture, anemia, neuromuscular, this is not meant to be an all-inclusive list. EKG interpreted by me (3pts min.). @ -EKG at X-rays interpreted by me (1pt min.). @ -None done CT interpreted by me (1pt min.). @ -None done U/S interpreted by me (1pt. min.). @ -Scrotal ultrasound severe scrotal edema What testing was considered but not performed or refused? (CT, X-rays, U/S, labs)? Why? @ -None What meds were considered but not given or refused? Why? @ -None Did you discuss the management of the patient with other professionals (professionals i.e. , PA, D[employer] WORKER, lab, RT, psych nurse, social worker psychiatric, city solicitor, teacher, strike warfare/missile systems officer, senior case manager)? Give summary @ -Management discussed with Dr. Montesinos who is accepting of the admission with cardiology and nephrology consultation Was smoking cessation discussed for >3mins.? @ -No Was critical care preformed (if so, how long)? @ -No Were there social determinants of health that impacted care today? How? (Homelessness, low income, unemployed, alcoholism, drug addiction, transportation, low edu. Level, literacy, decrease access to med. care, custodial, rehab)? @ -No Was there de-escalation of care discussed even if they declined (Discuss DNR or withdrawal of care, Hospice)? DNR status @ -No What co-morbidities impacted this encounter? (DM, HTN, Smoking, COPD, CAD, Cancer, CVA, ARF, Chemo, Hep., AIDS, mental health diagnosis, sleep apnea, morbid obesity)? @ -None Was patient admitted / discharged? Hospital course, mention meds given and route, prescriptions, significant lab abnormalities, going to OR and other pertinent info. @ -Admitted. Patient presented to the emergency department for evaluation of scrotal edema. Patient has bilateral lower extremity edema. CBC reveals no significant leukocytosis, hemoglobin 11.9; coagulation studies shows an INR of 1.3; CMP shows a sodium of 132 but corrected for hyperglycemia 137. Potassium is 3.3. BUN 40, creatinine 1.56. Patient has elevated BNP at 13,000. UA shows 2+ protein, 4+ glucose, small blood. Chest x-ray shows cardiomegaly with pulmonary vascular congestion and small effusion on the lateral view. Radiologist reads that this could be a possible early infiltrate but based on clinical picture I believe this is more so related to congestive failure. An ultrasound of the scrotum was obtained revealing severe scrotal edema Patient was administered 2 mg of IV morphine, 20 mg of IV Lasix, and 8 units of subcu insulin I discussed the case with Dr. Montesinos who is accepting of the admission requesting cardiology and nephrology consultation. Case was discussed with Dr. Boyle Undiagnosed new problem with uncertain prognosis? @ -No Drug Therapy requiring intensive monitoring for toxicity (Heparin, Nitro, Insulin, Cardizem)? @ -No Were any procedures done? @ -No Diagnosis/symptom? @ -Scrotal edema, CHF Acute, or Chronic, or Acute on Chronic? @ -acute Uncomplicated (without systemic symptoms) or Complicated (systemic symptoms)? @ -uncomplicated Side effects of treatment? @ -No Exacerbation, Progression, or Severe Exacerbation? @ -No Poses a threat to life or bodily function? How? (Chest pain, USA, NV, pneumonia, PE, COPD, DKA, ARF, appy, cholecystitis, CVA, Diverticulitis, Homicidal, Suicidal, threat to staff... and all critical care pts) @ -No - Lab Data Result diagrams: 05/21/24 20:41 05/21/24 20:41 Lab Results 05/21/24 05/21/24 05/21/24 Range/Units 20:41 20:41 20:41 WBC 10.8 H (3.8-10.6) k/uL RBC 4.63 (4.30-5.90) m/uL Hgb 11.9 L (13.0-17.5) gm/dL Hct 38.5 L (39.0-53.0) % MCV 83.0 (80.0-100.0) fL MCH 25.8 (25.0-35.0) pg MCHC 31.0 (31.0-37.0) g/dL RDW 15.8 H (11.5-15.5) % Plt Count 137 L (150-450) k/uL MPV 10.2 Neutrophils % 85 % Lymphocytes % 6 % Monocytes % 4 % Eosinophils % 3 % Basophils % 0 % Neutrophils # 9.2 H (1.3-7.7) k/uL Lymphocytes # 0.6 L (1.0-4.8) k/uL Monocytes # 0.5 (0-1.0) k/uL Eosinophils # 0.3 (0-0.7) k/uL Basophils # 0.0 (0-0.2) k/uL Hypochromasia Slight PT 13.6 H (10.0-12.5) sec INR 1.3 H (<1.2) APTT 26.5 (22.0-30.0) sec Sodium 132 L (137-145) mmol/L Potassium 3.3 L (3.5-5.1) mmol/L Chloride 100 (98-107) mmol/L Carbon Dioxide 25 (22-30) mmol/L Anion Gap 7 mmol/L BUN 40 H (9-20) mg/dL Creatinine 1.56 H (0.66-1.25) mg/dL Est GFR (CKD-EPI)AfAm 55 (>60 ml/min/1.73 sqM) Est GFR (CKD-EPI)NonAf 47 (>60 ml/min/1.73 sqM) Glucose 435 H (74-99) mg/dL Calcium 8.3 L (8.4-10.2) mg/dL Magnesium 1.8 (1.6-2.3) mg/dL Total Bilirubin 1.6 H (0.2-1.3) mg/dL AST 42 (17-59) U/L ALT 83 H (4-49) U/L Alkaline Phosphatase 185 H (38-126) U/L NT-Pro-B Natriuret Pep 40204 pg/mL Total Protein 5.6 L (6.3-8.2) g/dL Albumin 3.0 L (3.5-5.0) g/dL Urine Color Urine Appearance (Clear) Urine pH (5.0-8.0) Ur Specific [place] (1.001-1.035) Urine Protein (Negative) Urine Glucose (UA) (Negative) Urine Ketones (Negative) Urine Blood (Negative) Urine Nitrite (Negative) Urine Bilirubin (Negative) Urine Urobilinogen (<2.0) mg/dL Ur Leukocyte Esterase (Negative) Urine RBC (0-5) /hpf Urine WBC (0-5) /hpf Urine Bacteria (None) /hpf Urine Mucus (None) /hpf 05/21/24 Range/Units 21:42 WBC (3.8-10.6) k/uL RBC (4.30-5.90) m/uL Hgb (13.0-17.5) gm/dL Hct (39.0-53.0) % MCV (80.0-100.0) fL MCH (25.0-35.0) pg MCHC (31.0-37.0) g/dL RDW (11.5-15.5) % Plt Count (150-450) k/uL MPV Neutrophils % % Lymphocytes % % Monocytes % % Eosinophils % % Basophils % % Neutrophils # (1.3-7.7) k/uL Lymphocytes # (1.0-4.8) k/uL Monocytes # (0-1.0) k/uL Eosinophils # (0-0.7) k/uL Basophils # (0-0.2) k/uL Hypochromasia PT (10.0-12.5) sec INR (<1.2) APTT (22.0-30.0) sec Sodium (137-145) mmol/L Potassium (3.5-5.1) mmol/L Chloride (98-107) mmol/L Carbon Dioxide (22-30) mmol/L Anion Gap mmol/L BUN (9-20) mg/dL Creatinine (0.66-1.25) mg/dL Est GFR (CKD-EPI)AfAm (>60 ml/min/1.73 sqM) Est GFR (CKD-EPI)NonAf (>60 ml/min/1.73 sqM) Glucose (74-99) mg/dL Calcium (8.4-10.2) mg/dL Magnesium (1.6-2.3) mg/dL Total Bilirubin (0.2-1.3) mg/dL AST (17-59) U/L ALT (4-49) U/L Alkaline Phosphatase (38-126) U/L NT-Pro-B Natriuret Pep pg/mL Total Protein (6.3-8.2) g/dL Albumin (3.5-5.0) g/dL Urine Color Light Yellow Urine Appearance Clear (Clear) Urine pH 5.5 (5.0-8.0) Ur Specific [place] 1.021 (1.001-1.035) Urine Protein 2+ H (Negative) Urine Glucose (UA) 4+ H (Negative) Urine Ketones Negative (Negative) Urine Blood Small H (Negative) Urine Nitrite Negative (Negative) Urine Bilirubin Negative (Negative) Urine Urobilinogen <2.0 (<2.0) mg/dL Ur Leukocyte Esterase Negative (Negative) Urine RBC 1 (0-5) /hpf Urine WBC 1 (0-5) /hpf Urine Bacteria Rare H (None) /hpf Urine Mucus Rare H (None) /hpf Disposition Clinical Impression: CHF (congestive heart failure), Scrotal edema Disposition: HOME SELF-CARE Condition: Stable Is patient prescribed a controlled substance at d/c from ED?: No
--- NOTE | 2024-05-21 20:36 | XR ---
EXAMINATION TYPE: XR chest 2V DATE OF EXAM: 05/21/2024 8:27 PM COMPARISON: 05/14/2024 CLINICAL INDICATION: Male, 59 years old with history of difficulty breathing: Shortness of breath TECHNIQUE: XR chest 2V views of the chest are obtained. FINDINGS: Scattered senescent parenchymal changes noted. Hyperinflation compatible with COPD. There is cardiomegaly with the pulmonary venous congestion and small effusion on the lateral projecti on. Possible early infiltrate right lower lobe. Findings may reflect mild congestive failure. Correla te with BNP. Infiltrate of other etiology not excluded. Mediastinal structures are stable and grossly unremarkable. No evidence for hilar prominence. Degenerative changes dorsal spine. IMPRESSION: 1. There is cardiomegaly with the pulmonary venous congestion and small effusion on the lateral proje ction. Possible early infiltrate right lower lobe. Findings may reflect mild congestive failure. Leonardo elate with BNP. Infiltrate of other etiology not excluded. [facility], , 05/21/2024 8:34 PM
[2024-05-21 21:07] LABS: Basophils % (A) 0 %; Eosinophils # (A) 0.3 k/uL (0-0.7); Eosinophils % (A) 3 %; HCT 38.5 % (39.0-53.0); HGB 11.9 gm/dL (13.0-17.5); Hypochromasia Slight; Lymphocytes # (A) 0.6 k/uL (1.0-4.8); Lymphocytes % (A) 6 %; MCH 25.8 pg (25.0-35.0); Mean Platelet Volume 10.2; Monocytes # (A) 0.5 k/uL (0-1.0); Monocytes % (A) 4 %; Neutrophils # (A) 9.2 k/uL (1.3-7.7); Neutrophils % (A) 85 %; Platelet Count 137 k/uL (150-450); RBC 4.63 m/uL (4.30-5.90); RDW 15.8 % (11.5-15.5); WBC 10.8 k/uL (3.8-10.6)
[2024-05-21 21:11] LABS: INR 1.3 (<1.2); Partial Thromboplastin Time 26.5 sec (22.0-30.0); Prothrombin Time 13.6 sec (10.0-12.5)
[2024-05-21 21:13] LABS: ALT 83 U/L (4-49); AST 42 U/L (17-59); African American GFR (CKD) 55 (>60 ml/min/1.73 sqM); Alkaline Phosphatase 185 U/L (38-126); Anion Gap 7 mmol/L; Blood Urea Nitrogen 40 mg/dL (9-20); Calcium 8.3 mg/dL (8.4-10.2); Carbon Dioxide 25 mmol/L (22-30); Chloride 100 mmol/L (98-107); Glucose 435 mg/dL (74-99); Magnesium 1.8 mg/dL (1.6-2.3); Non-African American GFR(CKD) 47 (>60 ml/min/1.73 sqM); Potassium 3.3 mmol/L (3.5-5.1); Sodium 132 mmol/L (137-145); Total Bilirubin 1.6 mg/dL (0.2-1.3); Total Protein 5.6 g/dL (6.3-8.2)
[2024-05-21 21:20] LABS: NT-Pro-B-Type Natriuretic Pept 13000 pg/mL
[2024-05-21] MEDS: FUROSEMIDE 10 MG/ML 2 ML VIAL IV ONE (22:16)
[2024-05-21] MEDS: MORPHINE SULFATE 2 MG/ML SYRINGE IVP STA (22:17)
[2024-05-21 22:22] LABS: Appearance,Urine Clear (Clear); Bacteria,Urine Rare /hpf; Bilirubin,Urine Negative (Negative); Blood,Urine Small (Negative); Color,Urine Light Yellow; Glucose,Urine (UA) 4+ (Negative); Ketones,Urine Negative (Negative); Leukocyte Esterase,Urine Negative (Negative); Mucus,Urine Rare /hpf; Nitrite,Urine Negative (Negative); PH, Urine 5.5 (5.0-8.0); Protein,Urine 2+ (Negative); RBC,Urine 1 /hpf (0-5); Specific Gravity,Urine 1.021 (1.001-1.035); Urobilinogen,Urine <2.0 mg/dL (<2.0); WBC,Urine 1 /hpf (0-5)
[2024-05-21] MEDS: INSULIN LISPRO (HumaLOG) 100 UNIT/ML 10 mL VL SQ ONE (22:38)
[2024-05-21] MEDS ORDERED: IBUPROFEN 400 MG TAB PO PRN (22:49)
[2024-05-21] MEDS ORDERED: NALOXONE 0.4 MG/ML 1 ML VIAL IV PRN (22:49)
[2024-05-21] MEDS ORDERED: DEXTROSE 50% SYRINGE 50 ML IVP PRN ×2 (23:05)
[2024-05-22 00:21] LABS: Glucose,Whole Blood 380 mg/dL (70-110)
--- NOTE | 2024-05-22 00:37 | US ---
EXAM: US Scrotum CLINICAL HISTORY: ITS.REASON US Reason: swelling TECHNIQUE: Real-time ultrasound of the scrotum with color Doppler and image documentation. COMPARISON: No relevant prior studies available. FINDINGS: Right testicle: Right testicle measures 4.4 x 2.6 x 2.5 cm. No torsion. Left testicle: Left testicle measures 4 x 2.8 x 2.2 cm. No torsion. Epididymides: Right epididymal head measures 1.1 cm. Left epididymal head measures 1.1 cm. Scrotum: Scrotal edema. Bilateral hydroceles. Left varicocele. IMPRESSION: No evidence of torsion Bilateral hydroceles Severe scrotal edema
[2024-05-22] MEDS: MORPHINE SULFATE 2 MG/ML SYRINGE IV PRN (04:30)
[2024-05-22 06:35] LABS: Basophils % (A) 0 %; Eosinophils # (A) 0.4 k/uL (0-0.7); Eosinophils % (A) 3 %; Hypochromasia Slight; Lymphocytes # (A) 0.8 k/uL (1.0-4.8); Lymphocytes % (A) 7 %; MCH 25.7 pg (25.0-35.0); MCHC 30.8 g/dL (31.0-37.0); MCV 83.4 fL (80.0-100.0); Mean Platelet Volume 9.9; Monocytes # (A) 0.6 k/uL (0-1.0); Monocytes % (A) 5 %; Neutrophils # (A) 10.2 k/uL (1.3-7.7); Neutrophils % (A) 84 %; Platelet Count 136 k/uL (150-450); RBC 4.67 m/uL (4.30-5.90); RDW 15.9 % (11.5-15.5); WBC 12.1 k/uL (3.8-10.6)
[2024-05-22 07:03] LABS: African American GFR (CKD) 65 (>60 ml/min/1.73 sqM); Anion Gap 5 mmol/L; Blood Urea Nitrogen 37 mg/dL (9-20); Calcium 8.4 mg/dL (8.4-10.2); Carbon Dioxide 29 mmol/L (22-30); Chloride 101 mmol/L (98-107); Glucose 256 mg/dL (74-99); Non-African American GFR(CKD) 56 (>60 ml/min/1.73 sqM); Sodium 135 mmol/L (137-145)
[2024-05-22] MEDS: INSULIN LISPRO (HumaLOG) 100 UNIT/ML 10 mL VL SQ SCH ×2 (08:41→08:42)
[2024-05-22] MEDS: ATORVASTATIN 80 MG TAB PO SCH (08:42)
[2024-05-22] MEDS: hydrALAZINE HCL 25 MG TAB PO SCH (08:42)
[2024-05-22] MEDS: PANTOPRAZOLE 40 MG TABLET PO SCH (08:42)
[2024-05-22] MEDS: POTASSIUM CHLORIDE ER 20 MEQ TAB.ER PO SCH (08:42)
[2024-05-22] MEDS: APIXABAN 5 MG TAB PO SCH (08:43)
[2024-05-22] MEDS: PIPERACILLIN-TAZOBACTAM 3.375 GM in SODIUM CHLORIDE 0.9% 100 ML IVPB SCH (08:43)
[2024-05-22] MEDS: FUROSEMIDE 10 MG/ML 4 ML VIAL IV SCH (08:44)
[2024-05-22] MEDS: DAPAGLIFLOZIN PROPANEDIOL 5 MG TABLET PO SCH (08:46)
[2024-05-22] MEDS: EZETIMIBE 10 MG TAB PO SCH (08:46)
[2024-05-22] MEDS: SPIRONOLACTONE 25 MG TAB PO SCH (09:02)
[2024-05-22] MEDS: carvediloL 12.5 MG TAB PO SCH (09:02)
--- NOTE | 2024-05-22 09:29 | P.HPIM ---
History of Present Illness H&P Date: 05/22/24 Chief Complaint: Acute on chronic systolic heart failure HISTORY OF PRESENT ILLNESS: This is a 59-year-old male patient of rosita and Dr. Ga with past medical history of coronary artery disease status post 6 vessel CABG 2006 with MAE to LAD, saphenous venous graft to the PDA, saphenous venous graft to the obtuse marginal one, radial artery to the obtuse marginal branch 2 and saphenous venous graft to the obtuse marginal 3 followed by heart catheterization with PCI and stent of the saphenous venous graft to the RCA in 2015 at which time he presented with non-ST elevated myocardial infarction. Most recent cardiac catheterization was performed on 04/10/2022 which revealed severe triple-vessel coronary artery disease with a patent ramus intermediate, patent SVG to the OM, patent MAE to the LAD, and occluded saphenous vein graft to the RCA which is chronic from before. Medical therapy was advised at that time. History of hypertension, hypertensive cardiovascular disease with left ventricular hypertrophy, hyperlipidemia, ischemic cardiomyopathy, paroxysmal atrial fibrillation, currently on Eliquis, diabetes mellitus type 2 with diabetic polyneuropathy, hyperlipidemia, asthma, obstructive sleep apnea on CPAP, chronic low back pain, DVT in the past, patient was recently hospitalized at [facility] between 05/05/2024 05/17/2024 after he was admitted for acute hypoxemic respiratory failure due to acute systolic heart failure as well as acute bronchitis was seen in consultation by pulmonary as well as by cardiology he ended up having significant acute kidney injury due to cardiorenal syndrome as well as vasomotor nephropathy, he started to recover from that, patient was supposed to come to see him in the office this week, instead he showed up in the emergency department with increased swelling both lower extremities and increased shortness of breath, as well as increased coughing, his chest x-ray showed evidence of cardiomegaly pulmonary vascular congestion as well as right lower lobe infiltrate could be an early gram-negative pneumonia, versus atelectasis, patient was started on IV diuretics, he was admitted to the hospital for evaluation by cardiology, nephrology, as well as pulmonary medicine. Patient has significant scrotal edema, underwent ultrasound of the scrotum that showed evidence of bilateral hydrocele, with left varicocele no evidence of torsion REVIEW OF SYSTEMS: Constitutional: No documented fever, no chills, no night sweats. No weight change. Positive for weakness, positive for fatigue, no lethargy. No daytime sleepiness. HEENT: No headache. No blurred vision or double vision, no loss of vision. No loss of Hearing, no ringing in the ears, no dizziness. No nasal drainage or congestion. No epistaxis. No sore throat. Lungs: positive for shortness of breath, occasional cough, minimal sputum production. no wheezing. Reports dyspnea with activity. Cardiovascular: no chest pain, positive for lower extremity edema. No palpitations. No paroxysmal nocturnal dyspnea. No orthopnea. positive for lightheadedness or dizziness. No syncopal episodes. Abdominal: Reports no abdominal pain. no nausea, vomiting. No diarrhea. No constipation. No bloody or tarry stools reports loss of appetite. Genitourinary: No dysuria, increased frequency, urgency. No urinary retention. Musculoskeletal: No myalgias. positive for muscle weakness, no gait dysfunction, frequent falls. No back pain. No neck pain. Integumentary: scabbed wounds to left caballero , no lesions. No rash or pruritus. No unusual bruising. No change in hair or nails. Neurologic: No aphasia. Minimal facial droop. No change in mentation. No head injury. No headache, minimal drift. Psychiatric: positive for depression. No anxiety. No mood swings. Endocrine: abnormal blood sugars. No weight change. PAST MEDICAL HISTORY: CAD post CABG with MAE to LAD SVG to PDA SVG to OM1 and the radial artery to the obtuse marginal 2 and SVG to the obtuse marginal 3 PCI of the SVG to the RCA 2015 Hypertension and hypertensive cardio vascular disease 3 Paroxysmal atrial fibrillation Diabetes mellitus type 2 Hyperlipidemia. Obstructive sleep apnea. Ischemic cardiomyopathy . Diabetic polyneuropathy. Postherpetic neuralgia. Asthma. DVT. Chronic low back pain. CVA PAST SURGICAL HISTORY: CABG with MAE to LAD, SVG to PDA him a SVG to OM 1, radial artery to OM 2, SVG to OM 3. Left heart catheterization with PCI of the SVG to the RCA 2015. Spinal fusion L4-L5 Bilateral inguinal hernia repair. Fasciotomy to the left lower extremity. Fasciotomy to the left upper extremity. [facility] 04/10/2022 SOCIAL HISTORY: Patient is a lifelong nonsmoker, he denies any alcohol ingestion he denies any drug use or abuse. FAMILY HISTORY: Father at age of 60 from COPD he also has history of CAD post NH, mother at age of 80 fortunately history of diabetes mellitus type 2, she'll also have history of chronic kidney disease, patient has one sister with rheumatoid arthritis as well as hyperlipidemia and one brother no major medical problems. PHYSICAL EXAMINATION: General: 59-year-old male laying down in no distress. HEENT: Head is atraumatic, normocephalic, pupils were equal round reactive to light and recommendation, extraocular muscle movement were intact, sclera nonicteric, conjunctivae were pale, mucous membranes of the mouth are somewhat dry. Neck: Supple, no JVP, normal carotid upstroke bilaterally, no lymphadenopathy. Chest: Decreased breath sounds at the bases, few rhonchi no expirratory wheezes,, no chest wall tenderness, no intercostal retractions. Heart: First heart sound is normal, second heart sounds normal, irregularly irregular, there is systolic ejection murmur 2/6 located in the left sternal border. Abdomen: Soft, nontender, nondistended, positive bowel sounds, there is no hepatosplenomegaly Extremities: There is +2 edema no calf tenderness DP +1 bilaterally. Neurologic examination: Patient is awake alert and oriented X 3, cranial nerves II-12 appear grossly intact, muscle power were 4 out of 5 in upper extremities and 4 out of 5 in bilateral lower extremities, deep tendon reflexes normal bilaterally. Minimal right facial droop, and right leg weakness. ASSESSMENT AND PLAN: 1. Acute on chronic systolic heart failure . we will start Furosemide 40 mg IVP q 12 hours , we will continue with Carvedilol 25 mg po bid , continue Farxiga 5 mg orally once every day, continue hydralazine 25 mg orally 3 times every day, monitor input annd output and daily weight, Cardiology consult 2. right lower lobe infiltrate likely gram-negative pneumonia start the patient on Zosyn 3.375 g piggyback every 8 hours, consult pulmonary medicine 3. Hypertension and hypertensive cardiovascular disease. Continue patient on Carvedilol 25 mg orally twice every day, continue with Hydralazine, orally 3 times every as well and monitor BP very closely. 4. Diabetes mellitus type 2. Restart the patient on Lantus 42 units at bedtime along with a sliding scale insulin, we will continue with Humalog 12 units before each meal, continue Farxiga 5 mg once every day, monitor the patient symptoms very closely 5. Coronary artery disease status post CABG 6 as well as PCI in the past. Continue patient on ASA 81 mg once every day, Carvedilol 25 mg orally twice every day, continue patient on atorvastatin 80 mg orally once every day, continue Zetia 10 mg orally once every day. 6. Hyperlipidemia. Continue patient on atorvastatin 80 mg once every day, continue Zetia 10 mg orally once every day, monitor lipid panel, keep LDL 55-70. 7. Diabetic polyneuropathy. Continue patient on gabapentin 300 mg orally 2 times every day. 8. Obstructive sleep apnea. Patient does have a CPAP at home. 9. Chronic systolic heart failure. Continue with Furosemide 40 mg IVP q 12 h , Carvedilol 25 mg po bid and add Farxiga 5 mg po daily. 10. Paroxysmal atrial fibrillation . Continue patient on Coreg 25 mg orally twice every day, Eliquis 5 mg po bid. 11. DVT prophylaxis. Continue Eliquis 5 mg orally twice every day. 12. GI prophylaxis. Continue Protonix 40 mg orally once every day. 13. History of CVA in the past recovered well will continue with Atorvastatin 80 mg po daily and Eliquis for life 14. Admit to inpatient. Estimated length of stay 2 midnights. 15. Patient's full code. Past Medical History Past Medical History: Asthma, Coronary Artery Disease (CAD), Chest Pain / Angina, Diabetes Mellitus, Deep Vein Thrombosis (DVT), Hyperlipidemia, Hypertension, Myocardial Infarction ([place]), Sleep Apnea/CPAP/BIPAP Additional Past Medical History / Comment(s): Obstructive sleep apnea CPAP, bronchitis, IDDM type II, DVT L leg, cellulitis L leg 2012 cellulitis L Arm 2017, diabetic neuropathy affects feet and hands, chronic kidney disease stage II Last Myocardial Infarction Date:: 06/23/13 History of Any Multi-Drug Resistant Organisms: Acinetobacter (MDRO), MRSA Date of last positivie culture/infection: 08/2014 MDRO Source:: abdomen around navel Past Surgical History: Back Surgery, Coronary Bypass/CABG, Heart Catheterization, Heart Catheterization With Stent, Hernia Repair Additional Past Surgical History / Comment(s): Cardiac caths, PCI with stents (4total), 2006 CABG 6 vessels, spinal fusion L4-L5, fasciotomy left thigh, bilateral inguinal hernia repairs, I&D L forearm with dehisence then compartment syndrome with fasciotomy Left forearm - June 2016, teeth extraction Past Anesthesia/Blood Transfusion Reactions: No Reported Reaction Date of Last Stent Placement:: 08/28/15 Past Psychological History: No Psychological Hx Reported Smoking Status: Never smoker Past Alcohol Use History: None Reported Past Drug Use History: None Reported - Past Family History Brother(s) History Unknown: Yes Additional Family Medical History / Comment(s): Patient has 1 brother and 1 sister with no major medical problems. Mother History Unknown: Yes Family Medical History: Congestive Heart Failure (CHF), Diabetes Mellitus Additional Family Medical History / Comment(s): Mother at the age of 84 from with history of chronic renal disease stage. Father History Unknown: Yes Family Medical History: COPD, Coronary Artery Disease (CAD), Myocardial Infarction ([place]) Additional Family Medical History / Comment(s): Father of a [place] at the age of 60 yrs with history of COPD. Sister(s) History Unknown: Yes Family Medical History: Rheumatoid Arthritis (RA) Additional Family Medical History / Comment(s): Patient has 1 sister with no major medical problems. Medications and Allergies Home Medications Medication Instructions Recorded Confirmed Type Ezetimibe [Zetia] 10 mg PO DAILY 12/15/20 05/22/24 History Atorvastatin [Lipitor] 80 mg PO DAILY 04/09/22 05/22/24 History carvediloL [Coreg] 25 mg PO BID 06/05/23 05/22/24 History Apixaban [Eliquis] 5 mg PO BID 05/05/24 05/22/24 History hydrALAZINE HCL [Apresoline] 25 mg PO TID 05/05/24 05/22/24 History Furosemide [Lasix] 40 mg PO DAILY #30 tab 05/17/24 05/22/24 Rx Gabapentin 300 mg PO HS #0 05/17/24 05/22/24 Rx Pantoprazole [Protonix] 40 mg PO AC-BRKFST #30 tab 05/17/24 05/22/24 Rx Potassium Chloride ER [K-Dur 20] 20 meq PO DAILY #30 tab 05/17/24 05/22/24 Rx Insulin Aspart [NovoLOG Flexpen] 9 - 12 units SQ TID-W/MEALS 05/22/24 05/22/24 History Insulin Glargine,Hum.rec.anlog 30 unit SQ HS 05/22/24 05/22/24 History [Basaglar Kwikpen U-100] Allergies Allergy/AdvReac Type Severity Reaction Status Date / Time adhesive tape Allergy Severe Rash/Hives Verified 05/22/24 07:01 vancomycin Allergy Mild Head Itches Verified 05/22/24 07:01 Physical Exam Vitals: Vital Signs Temp Pulse Resp BP Pulse Ox 05/22/24 06:17 70 18 170/104 96 05/22/24 00:10 67 15 151/87 96 05/21/24 19:46 97.9 F 88 18 168/82 93 L Intake and Output 05/21/24 05/22/24 05/22/24 22:59 06:59 14:59 Output Total 300 Balance -300 Output: Urine 300 Straight 300 Other: Weight 88.451 kg Results CBC & Chem 7: 05/22/24 06:12 05/22/24 06:12 Labs: Abnormal Lab Results - Last 24 Hours (Table) 05/21/24 05/21/24 05/21/24 Range/Units 20:41 20:41 20:41 WBC 10.8 H (3.8-10.6) k/uL Hgb 11.9 L (13.0-17.5) gm/dL Hct 38.5 L (39.0-53.0) % MCHC (31.0-37.0) g/dL RDW 15.8 H (11.5-15.5) % Plt Count 137 L (150-450) k/uL Neutrophils # 9.2 H (1.3-7.7) k/uL Lymphocytes # 0.6 L (1.0-4.8) k/uL PT 13.6 H (10.0-12.5) sec INR 1.3 H (<1.2) Sodium 132 L (137-145) mmol/L Potassium 3.3 L (3.5-5.1) mmol/L BUN 40 H (9-20) mg/dL Creatinine 1.56 H (0.66-1.25) mg/dL Glucose 435 H (74-99) mg/dL POC Glucose (mg/dL) (70-110) mg/dL Calcium 8.3 L (8.4-10.2) mg/dL Total Bilirubin 1.6 H (0.2-1.3) mg/dL ALT 83 H (4-49) U/L Alkaline Phosphatase 185 H (38-126) U/L Total Protein 5.6 L (6.3-8.2) g/dL Albumin 3.0 L (3.5-5.0) g/dL Urine Protein (Negative) Urine Glucose (UA) (Negative) Urine Blood (Negative) Urine Bacteria (None) /hpf Urine Mucus (None) /hpf 05/21/24 05/22/24 05/22/24 Range/Units 21:42 00:20 06:12 WBC 12.1 H (3.8-10.6) k/uL Hgb 12.0 L (13.0-17.5) gm/dL Hct (39.0-53.0) % MCHC 30.8 L (31.0-37.0) g/dL RDW 15.9 H (11.5-15.5) % Plt Count 136 L (150-450) k/uL Neutrophils # 10.2 H (1.3-7.7) k/uL Lymphocytes # 0.8 L (1.0-4.8) k/uL PT (10.0-12.5) sec INR (<1.2) Sodium (137-145) mmol/L Potassium (3.5-5.1) mmol/L BUN (9-20) mg/dL Creatinine (0.66-1.25) mg/dL Glucose (74-99) mg/dL POC Glucose (mg/dL) 380 H (70-110) mg/dL Calcium (8.4-10.2) mg/dL Total Bilirubin (0.2-1.3) mg/dL ALT (4-49) U/L Alkaline Phosphatase (38-126) U/L Total Protein (6.3-8.2) g/dL Albumin (3.5-5.0) g/dL Urine Protein 2+ H (Negative) Urine Glucose (UA) 4+ H (Negative) Urine Blood Small H (Negative) Urine Bacteria Rare H (None) /hpf Urine Mucus Rare H (None) /hpf
[2024-05-22 12:10] LABS: Glucose,Whole Blood 238 mg/dL (70-110)
--- NOTE | 2024-05-22 12:30 | P.NPCON ---
History of Present Illness - Reason for Consult acute renal failure - History of Present Illness Patient is a 59-year-old male with history of coronary artery disease status post coronary artery bypass surgery. Patient was recently discharged from the hospital on 05/17/2024 after admission for acute hypoxic respiratory failure, CHF exacerbation and volume overload. Patient was diuresed. He had acute kidney injury with serum creatinine at 2.4 mg/dL at peak. It did improve to 1.6 mg/dL on 05/17/2024. Diuretics were held and then restarted about 2 days prior to discharge. Patient is readmitted with complaints of increased swelling in his legs as well as significant scrotal swelling. He has had some shortness of breath as well. No complaints of fever chills nausea vomiting or abdominal pain or diarrhea. Serum creatinine was 1.5 on admission and is 1.3 today. Patient states she has been voiding. Past Medical History Past Medical History: Asthma, Coronary Artery Disease (CAD), Chest Pain / Angina, Diabetes Mellitus, Deep Vein Thrombosis (DVT), Hyperlipidemia, Hypertension, Myocardial Infarction ([place]), Sleep Apnea/CPAP/BIPAP Additional Past Medical History / Comment(s): Obstructive sleep apnea CPAP, bronchitis, IDDM type II, DVT L leg, cellulitis L leg 2012 cellulitis L Arm 2017, diabetic neuropathy affects feet and hands, chronic kidney disease stage II Last Myocardial Infarction Date:: 06/23/13 History of Any Multi-Drug Resistant Organisms: Acinetobacter (MDRO), MRSA Date of last positivie culture/infection: 08/2014 MDRO Source:: abdomen around navel Past Surgical History: Back Surgery, Coronary Bypass/CABG, Heart Catheterization, Heart Catheterization With Stent, Hernia Repair Additional Past Surgical History / Comment(s): Cardiac caths, PCI with stents (4total), 2006 CABG 6 vessels, spinal fusion L4-L5, fasciotomy left thigh, bilateral inguinal hernia repairs, I&D L forearm with dehisence then compartment syndrome with fasciotomy Left forearm - June 2016, teeth extraction Past Anesthesia/Blood Transfusion Reactions: No Reported Reaction Date of Last Stent Placement:: 08/28/15 Past Psychological History: No Psychological Hx Reported Smoking Status: Never smoker Past Alcohol Use History: None Reported Past Drug Use History: None Reported - Past Family History Brother(s) History Unknown: Yes Additional Family Medical History / Comment(s): Patient has 1 brother and 1 sister with no major medical problems. Mother History Unknown: Yes Family Medical History: Congestive Heart Failure (CHF), Diabetes Mellitus Additional Family Medical History / Comment(s): Mother at the age of 84 from with history of chronic renal disease stage. Father History Unknown: Yes Family Medical History: COPD, Coronary Artery Disease (CAD), Myocardial Infarction ([place]) Additional Family Medical History / Comment(s): Father of a [place] at the age of 60 yrs with history of COPD. Sister(s) History Unknown: Yes Family Medical History: Rheumatoid Arthritis (RA) Additional Family Medical History / Comment(s): Patient has 1 sister with no major medical problems. Medications and Allergies Home Medications Medication Instructions Recorded Confirmed Type Ezetimibe [Zetia] 10 mg PO DAILY 12/15/20 05/22/24 History Atorvastatin [Lipitor] 80 mg PO DAILY 04/09/22 05/22/24 History carvediloL [Coreg] 25 mg PO BID 06/05/23 05/22/24 History Apixaban [Eliquis] 5 mg PO BID 05/05/24 05/22/24 History hydrALAZINE HCL [Apresoline] 25 mg PO TID 05/05/24 05/22/24 History Furosemide [Lasix] 40 mg PO DAILY #30 tab 05/17/24 05/22/24 Rx Gabapentin 300 mg PO HS #0 05/17/24 05/22/24 Rx Pantoprazole [Protonix] 40 mg PO AC-BRKFST #30 tab 05/17/24 05/22/24 Rx Potassium Chloride ER [K-Dur 20] 20 meq PO DAILY #30 tab 05/17/24 05/22/24 Rx Insulin Aspart [NovoLOG Flexpen] 9 - 12 units SQ TID-W/MEALS 05/22/24 05/22/24 History Insulin Glargine,Hum.rec.anlog 30 unit SQ HS 05/22/24 05/22/24 History [Basaglar Kwikpen U-100] Allergies Allergy/AdvReac Type Severity Reaction Status Date / Time adhesive tape Allergy Severe Rash/Hives Verified 05/22/24 07:01 vancomycin Allergy Mild Head Itches Verified 05/22/24 07:01 Physical Exam Vitals: Vital Signs Temp Pulse Pulse Resp BP BP Pulse Ox 05/22/24 07:30 98.1 F 70 20 179/100 93 L 05/22/24 06:17 70 18 170/104 96 05/22/24 00:10 67 15 151/87 96 05/21/24 19:46 97.9 F 88 18 168/82 93 L Intake and Output 05/21/24 05/22/24 05/22/24 22:59 06:59 14:59 Output Total 300 400 Balance -300 -400 Output: Urine 300 400 Straight 300 200 Other: Voiding Method Indwelling Catheter Weight 88.451 kg 88.451 kg Patient is awake, comfortable, no acute distress. 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 Results - Lab Results Most recent lab results Calcium 8.4 mg/dL (8.4-10.2) 05/22/24 06:12 Magnesium 1.8 mg/dL (1.6-2.3) 05/21/24 20:41 05/22/24 06:12 05/22/24 06:12 Assessment and Plan Assessment: 1. Acute kidney injury, cardiorenal. Currently maintained on IV diuretics with improving renal function 2. Hypertension partly volume sensitive, improving 3. Hypokalemia secondary to diuretics 4. Acute on chronic CHF with reduced ejection fraction of 40 to 45% 5. Volume overload 6. Chronic A-fib 7. Coronary artery disease status post coronary artery bypass surgery Plan: Continue to diurese patient. Continue with Coreg and hydralazine Replace potassium Continue Aldactone, increase to 50 mg daily Thank you for the consultation. We will continue to follow the patient with you during his hospitalization.
[2024-05-22] MEDS: POTASSIUM CHLORIDE ER 20 MEQ TAB.ER PO STA (13:02)
--- NOTE | 2024-05-22 14:01 | P.CNPUL ---
History of Present Illness Consult date: 05/22/24 Reason for consult: dyspnea History of present illness: This is a 59-year-old male patient with a history of obstructive sleep apnea maintained on CPAP, mild intermittent chronic bronchial asthma, lifelong non- smoker, hypertension, hyperlipidemia, diabetes mellitus, diabetic neuropathy, chronic kidney disease stage III, coronary artery disease with previous stents and subsequent bypass grafting surgery. He presented here back on May 05 with complaints of shortness of breath, he was treated and the patient was discharged home on 05/17/2024 discharged after being treated for acute on top of chronic systolic heart failure and the patient also encountered an acute kidney injury due to cardiorenal syndrome related to his CHF. The patient was discharged home on Lasix 40 mg p.o. twice a day, and he is also maintained on Coreg 25 mg p.o. twice a day, Farxiga 10 mg p.o. daily, hydralazine 25 mg p.o. 3 times daily. He is on Lantus insulin in addition to metformin for diabetes mellitus and he also takes a combination of Lipitor and Zetia for chronic hyperlipidemia. He is on anticoagulation with Eliquis regarding paroxysmal atri al fibrillation. His current rhythm remains sinus. Few days following his discharge, the patient became again progressively more short of breath. There is worsening in lower extremity edema. There was also increase in scrotal edema. Based on that, the patient presented to the hospital and the patient was admitted for acute decompensated heart failure. The white cell count of 12.1, hemoglobin 12 and a platelet count is 136. BUN is 37 with a creatinine of 1.36 and a sodium level at 135 with a potassium level is at 3. Blood sugars at 256. UA is showing +2 protein plus for glucose and there is a possibility of diabetic nephropathy/nephrotic syndrome. proBNP level is 13,000. Thyroid function test normal. LFTs show mild elevation of the alkaline phosphatase, ALT is at 83 with an AST of 42. Magnesium is at 1.8. Coagulation profile shows an INR of 1.3 with a PT of 13.6 and a PTT of 26. The patient remains on room air oxygen. Currently is on Lasix 40 mg IV every 12 hours. Rest of the home medication resumed. He is also on Aldactone 25 mg p.o. daily. He was started on empiric antibiotic coverage with IV Zosyn. Review of Systems CONSTITUTIONAL: Denies any recent significant weight loss or weight gain. EYES: Denies change in vision. EARS, NOSE, MOUTH, THROAT: Denies headaches, denies sore throat. CARDIOVASCULAR: Denies chest pain, palpitations or syncopal episodes. RESPIRATORY: Positive for shortness of breath, cough, congestion no hemoptysis. GASTROINTESTINAL: Denies change in appetite, denies abdominal pain GENITOURINARY: Denies hematuria, denies infections. MUSKULOSKELETAL: Denies pain, denies swelling. INTEGUMENTARY: Denies rash, denies eczema. NEUROLOGICAL: Denies recent memory loss, no recent seizure activity. PSYCHIATRIC: Denies anxiety, denies depression. HEMATOLOGIC/LYMPHATIC: Denies anemia, denies enlarged lymph nodes. Past Medical History Past Medical History: Asthma, Coronary Artery Disease (CAD), Chest Pain / Angina, Diabetes Mellitus, Deep Vein Thrombosis (DVT), Hyperlipidemia, Hypertension, Myocardial Infarction ([place]), Sleep Apnea/CPAP/BIPAP Additional Past Medical History / Comment(s): Obstructive sleep apnea CPAP, bronchitis, IDDM type II, DVT L leg, cellulitis L leg 2012 cellulitis L Arm 2017, diabetic neuropathy affects feet and hands, chronic kidney disease stage II Last Myocardial Infarction Date:: 06/23/13 History of Any Multi-Drug Resistant Organisms: Acinetobacter (MDRO), MRSA Date of last positivie culture/infection: 08/2014 MDRO Source:: abdomen around navel Past Surgical History: Back Surgery, Coronary Bypass/CABG, Heart Catheterization, Heart Catheterization With Stent, Hernia Repair Additional Past Surgical History / Comment(s): Cardiac caths, PCI with stents (4total), 2006 CABG 6 vessels, spinal fusion L4-L5, fasciotomy left thigh, bilateral inguinal hernia repairs, I&D L forearm with dehisence then compartment syndrome with fasciotomy Left forearm - June 2016, teeth extraction Past Anesthesia/Blood Transfusion Reactions: No Reported Reaction Date of Last Stent Placement:: 08/28/15 Past Psychological History: No Psychological Hx Reported Smoking Status: Never smoker Past Alcohol Use History: None Reported Past Drug Use History: None Reported - Past Family History Brother(s) History Unknown: Yes Additional Family Medical History / Comment(s): Patient has 1 brother and 1 sister with no major medical problems. Mother History Unknown: Yes Family Medical History: Congestive Heart Failure (CHF), Diabetes Mellitus Additional Family Medical History / Comment(s): Mother at the age of 84 from with history of chronic renal disease stage. Father History Unknown: Yes Family Medical History: COPD, Coronary Artery Disease (CAD), Myocardial Infarction (PR) Additional Family Medical History / Comment(s): Father of a PR at the age of 60 yrs with history of COPD. Sister(s) History Unknown: Yes Family Medical History: Rheumatoid Arthritis (RA) Additional Family Medical History / Comment(s): Patient has 1 sister with no major medical problems. Medications and Allergies Home Medications Medication Instructions Recorded Confirmed Type Ezetimibe [Zetia] 10 mg PO DAILY 12/15/20 05/22/24 History Atorvastatin [Lipitor] 80 mg PO DAILY 04/09/22 05/22/24 History carvediloL [Coreg] 25 mg PO BID 06/05/23 05/22/24 History Apixaban [Eliquis] 5 mg PO BID 05/05/24 05/22/24 History hydrALAZINE HCL [Apresoline] 25 mg PO TID 05/05/24 05/22/24 History Furosemide [Lasix] 40 mg PO DAILY #30 tab 05/17/24 05/22/24 Rx Gabapentin 300 mg PO HS #0 05/17/24 05/22/24 Rx Pantoprazole [Protonix] 40 mg PO AC-BRKFST #30 tab 05/17/24 05/22/24 Rx Potassium Chloride ER [K-Dur 20] 20 meq PO DAILY #30 tab 05/17/24 05/22/24 Rx Insulin Aspart [NovoLOG Flexpen] 9 - 12 units SQ TID-W/MEALS 05/22/24 05/22/24 History Insulin Glargine,Hum.rec.anlog 30 unit SQ HS 05/22/24 05/22/24 History [Basaglar Kwikpen U-100] Allergies Allergy/AdvReac Type Severity Reaction Status Date / Time adhesive tape Allergy Severe Rash/Hives Verified 05/22/24 07:01 vancomycin Allergy Mild Head Itches Verified 05/22/24 07:01 Physical Exam Vitals: Vital Signs Temp Pulse Resp BP Pulse Ox 05/22/24 06:17 70 18 170/104 96 05/22/24 00:10 67 15 151/87 96 05/21/24 19:46 97.9 F 88 18 168/82 93 L Intake and Output 05/21/24 05/22/24 05/22/24 22:59 06:59 14:59 Output Total 300 Balance -300 Output: Urine 300 Straight 300 Other: Weight 88.451 kg GENERAL EXAM: Revealed 59-year-old white male in no distress, on room air. HEAD: Normocephalic. EYES: Normal reaction of pupils, equal size. NOSE: Clear with pink turbinates. THROAT: No erythema or exudates. NECK: No masses, no JVD. CHEST: No chest wall deformity. LUNGS: Clear throughout no crackles rhonchi or wheezes CVS: S1 and S2 normal with no audible murmur, regular rhythm. ABDOMEN: No hepatosplenomegaly, normal bowel sounds, no guarding or rigidity. SKIN: No rashes CENTRAL NERVOUS SYSTEM: No focal deficits, tone is normal in all 4 extremities. EXTREMITIES: There is 1+ bipedal. No clubbing, no cyanosis. Peripheral pulses are intact. Psychiatric: Depressed mood flat affect normal mental status. Results - Laboratory Findings CBC and BMP: 05/22/24 06:12 05/22/24 06:12 PT/INR, D-dimer PT 13.6 sec (10.0-12.5) H 05/21/24 20:41 INR 1.3 (<1.2) H 05/21/24 20:41 Abnormal lab findings: Abnormal Labs 05/21/24 05/21/24 05/21/24 20:41 20:41 20:41 WBC 10.8 H Hgb 11.9 L Hct 38.5 L MCHC RDW 15.8 H Plt Count 137 L Neutrophils # 9.2 H Lymphocytes # 0.6 L PT 13.6 H INR 1.3 H Sodium 132 L Potassium 3.3 L BUN 40 H Creatinine 1.56 H Glucose 435 H POC Glucose (mg/dL) Calcium 8.3 L Total Bilirubin 1.6 H ALT 83 H Alkaline Phosphatase 185 H Total Protein 5.6 L Albumin 3.0 L Urine Protein Urine Glucose (UA) Urine Blood Urine Bacteria Urine Mucus 05/21/24 05/22/24 05/22/24 21:42 00:20 06:12 WBC 12.1 H Hgb 12.0 L Hct MCHC 30.8 L RDW 15.9 H Plt Count 136 L Neutrophils # 10.2 H Lymphocytes # 0.8 L PT INR Sodium Potassium BUN Creatinine Glucose POC Glucose (mg/dL) 380 H Calcium Total Bilirubin ALT Alkaline Phosphatase Total Protein Albumin Urine Protein 2+ H Urine Glucose (UA) 4+ H Urine Blood Small H Urine Bacteria Rare H Urine Mucus Rare H 05/22/24 06:12 WBC Hgb Hct MCHC RDW Plt Count Neutrophils # Lymphocytes # PT INR Sodium 135 L Potassium 3.0 L BUN 37 H Creatinine 1.36 H Glucose 256 H POC Glucose (mg/dL) Calcium Total Bilirubin ALT Alkaline Phosphatase Total Protein Albumin Urine Protein Urine Glucose (UA) Urine Blood Urine Bacteria Urine Mucus Assessment and Plan Plan: Acute exacerbation of chronic systolic congestive heart failure with ejection fraction 40 to 45% based on echocardiogram that was done on 06/07/2023. The patient has moderate LV systolic dysfunction and moderate to severe pulmonary hypertension and moderate degree of posteriorly directed mitral regurgitation and severe tricuspid regurgitation consistent with valvular heart disease. Estimated right ventricular systolic pressure was 57 mmHg. MIld intermittent asthma Chronic stage III kidney disease Diabetes mellitus, type II Diabetic neuropathy with +2 protein in the UA. Rule out underlying nephrosis Coronary artery disease with previous stents/coronary artery bypass grafting CHF with ischemic cardiomyopathy, EF of around 40 to 45%, moderate-severe pulm hypertension, mitral regurgitation and severe tricuspid regurgitation and pulmonary hypertension. Hyperlipidemia Hypertension Chronic lower extremity edema Scrotal edema Indeterminate hypoechoic lesion involving the right kidney measuring 1.3 cm in size that needs to be further worked up on outpatient basis with an MRI. The patient also has a simple cyst involving the left kidney measuring 1.9 cm in size. Recommendation: Patient currently on room air oxygen Optimize CHF Continue IV Lasix Continue Coreg, Farxiga, Aldactone Continue hydralazine Continue insulin Lantus 42 units along with sliding scale coverage and 12 units of NovoLog with meals Antibiotic coverage essentially empiric at this point Monitor volume status Monitor electrolytes and renal function Repeat chest x-ray in the next 24 to 48 hours Time with Patient: Greater than 30
[2024-05-22 17:06] LABS: Glucose,Whole Blood 61 mg/dL (70-110)
[2024-05-22 19:37] LABS: Glucose,Whole Blood 137 mg/dL (70-110)
[2024-05-22] MEDS: INSULIN GLARGINE (LANTUS) 100 UNIT/ML SYR SQ SCH (20:58)
[2024-05-22] MEDS: GABAPENTIN 300 MG CAP PO SCH (20:58)
[2024-05-22] MEDS ORDERED: INSULIN GLARGINE (LANTUS) 100 UNIT/ML SYR SQ SCH ×3 (21:00)
--- NOTE | 2024-05-22 21:04 | P.HPCAR ---
History of Present Illness Impression Worsening abdominal swelling and scrotal swelling and penile swelling recently admitted with CHF exacerbation No shortness of breath but with the elevated NT proBNP Underlying atrial fibrillation rate controlled hypertension Status post CABG Left ventricular ejection fraction of about 40-45% by recent echo Suggest Continue IV Lasix Add spironolactone and maximize Stop oral potassium and use a combination of Lasix and spironolactone Check for ascites/abdominal ultrasound Maximize hydralazine if needed Low-dose FERMIN inhibitors/ARB History of present illness Patient presented with worsening lower extremity edema but mostly penile and scrotal edema He was just discharged from the hospital with heart failure symptoms and was treated for this He has chronic kidney disease He is currently on IV Lasix Potassium is low normal despite being on oral potassium Denies any chest pain or syncope Labs Reviewed Left ventricular ejection fraction 40 to 45% Unable to afford Farxiga On examination heart sounds S1-S2 are normal Breath sounds are clear Rhythm is irregular Physical Exam Vitals: Vital Signs Temp Pulse Resp BP Pulse Ox 05/22/24 06:17 70 18 170/104 96 05/22/24 00:10 67 15 151/87 96 05/21/24 19:46 97.9 F 88 18 168/82 93 L Intake and Output 05/21/24 05/22/24 05/22/24 22:59 06:59 14:59 Output Total 300 Balance -300 Output: Urine 300 Straight 300 Other: Weight 88.451 kg Past Medical History Past Medical History: Asthma, Coronary Artery Disease (CAD), Chest Pain / Angina, Diabetes Mellitus, Deep Vein Thrombosis (DVT), Hyperlipidemia, Hypertension, Myocardial Infarction ([place]), Sleep Apnea/CPAP/BIPAP Additional Past Medical History / Comment(s): Obstructive sleep apnea CPAP, bronchitis, IDDM type II, DVT L leg, cellulitis L leg 2013 cellulitis L Arm 2018, diabetic neuropathy affects feet and hands, chronic kidney disease stage II Last Myocardial Infarction Date:: 06/23/13 History of Any Multi-Drug Resistant Organisms: Acinetobacter (MDRO), MRSA Date of last positivie culture/infection: 08/2014 MDRO Source:: abdomen around navel Past Surgical History: Back Surgery, Coronary Bypass/CABG, Heart Catheterization, Heart Catheterization With Stent, Hernia Repair Additional Past Surgical History / Comment(s): Cardiac caths, PCI with stents (4total), 2006 CABG 6 vessels, spinal fusion L4-L5, fasciotomy left thigh, bilateral inguinal hernia repairs, I&D L forearm with dehisence then compartment syndrome with fasciotomy Left forearm - June 2016, teeth extraction Past Anesthesia/Blood Transfusion Reactions: No Reported Reaction Date of Last Stent Placement:: 08/28/15 Past Psychological History: No Psychological Hx Reported Smoking Status: Never smoker Past Alcohol Use History: None Reported Past Drug Use History: None Reported - Past Family History Brother(s) History Unknown: Yes Additional Family Medical History / Comment(s): Patient has 1 brother and 1 sister with no major medical problems. Mother History Unknown: Yes Family Medical History: Congestive Heart Failure (CHF), Diabetes Mellitus Additional Family Medical History / Comment(s): Mother at the age of 84 from with history of chronic renal disease stage. Father History Unknown: Yes Family Medical History: COPD, Coronary Artery Disease (CAD), Myocardial Infarction ([place]) Additional Family Medical History / Comment(s): Father of a [place] at the age of 60 yrs with history of COPD. Sister(s) History Unknown: Yes Family Medical History: Rheumatoid Arthritis (RA) Additional Family Medical History / Comment(s): Patient has 1 sister with no major medical problems. Physical Examination Vital Signs Temp Pulse Resp BP Pulse Ox 05/22/24 06:17 70 18 170/104 96 05/22/24 00:10 67 15 151/87 96 05/21/24 19:46 97.9 F 88 18 168/82 93 L Intake and Output 05/21/24 05/22/24 05/22/24 22:59 06:59 14:59 Output Total 300 Balance -300 Output: Urine 300 Straight 300 Other: Weight 88.451 kg Results 05/22/24 06:12 05/22/24 06:12 Cardiac Enzymes 05/21/24 Range/Units 20:41 AST 42 (17-59) U/L Coagulation 05/21/24 Range/Units 20:41 PT 13.6 H (10.0-12.5) sec APTT 26.5 (22.0-30.0) sec CBC 05/21/24 05/22/24 Range/Units 20:41 06:12 WBC 10.8 H 12.1 H (3.8-10.6) k/uL RBC 4.63 4.67 (4.30-5.90) m/uL Hgb 11.9 L 12.0 L (13.0-17.5) gm/dL Hct 38.5 L 39.0 (39.0-53.0) % Plt Count 137 L 136 L (150-450) k/uL Comprehensive Metabolic Panel 05/21/24 05/22/24 Range/Units 20:41 06:12 Sodium 132 L 135 L (137-145) mmol/L Potassium 3.3 L 3.0 L (3.5-5.1) mmol/L Chloride 100 101 (98-107) mmol/L Carbon Dioxide 25 29 (22-30) mmol/L BUN 40 H 37 H (9-20) mg/dL Creatinine 1.56 H 1.36 H (0.66-1.25) mg/dL Glucose 435 H 256 H (74-99) mg/dL Calcium 8.3 L 8.4 (8.4-10.2) mg/dL AST 42 (17-59) U/L ALT 83 H (4-49) U/L Alkaline Phosphatase 185 H (38-126) U/L Total Protein 5.6 L (6.3-8.2) g/dL Albumin 3.0 L (3.5-5.0) g/dL Current Medications Generic Name Dose Route Start Last Admin Trade Name Freq PRN Reason Stop Dose Admin Acetaminophen 650 mg 05/21/24 22:49 Acetaminophen Tab 325 Mg Tab PO Q6HR PRN Mild Pain or Fever > 100.5 Apixaban 5 mg 05/22/24 09:00 Apixaban 5 Mg Tab PO BID [facility] Protocol Atorvastatin Calcium 80 mg 05/22/24 09:00 Atorvastatin 80 Mg Tab PO DAILY [facility] Carvedilol 25 mg 05/22/24 08:00 Carvedilol 12.5 Mg Tab PO BID-W/MEALS [facility] Dapagliflozin 5 mg 05/22/24 09:00 Dapagliflozin Propanediol 5 Mg Tablet PO DAILY [facility] Dextrose/Water 25 ml 05/21/24 23:05 Dextrose 50% Syringe 50 Ml IVP PER PROTOCOL PRN Hypoglycemia Protocol Dextrose/Water 50 ml 05/21/24 23:05 Dextrose 50% Syringe 50 Ml IVP PER PROTOCOL PRN Hypoglycemia Protocol Ezetimibe 10 mg 05/22/24 09:00 Ezetimibe 10 Mg Tab PO DAILY [facility] Furosemide 40 mg 05/22/24 09:00 Furosemide 10 Mg/Ml 4 Ml Vial IV Q12HR [facility] Gabapentin 300 mg 05/22/24 21:00 Gabapentin 300 Mg Cap PO HS [facility] Hydralazine HCl 25 mg 05/22/24 09:00 Hydralazine Hcl 25 Mg Tab PO TID INDERJIT Piperacillin Sod/Tazobactam 100 mls @ 25 mls/hr 05/22/24 08:00 Sod 3.375 gm/ Sodium Chloride IVPB Q8HR [facility] Protocol Insulin Glargine 42 unit 05/22/24 21:00 Insulin Glargine (Lantus) 100 Unit/Ml Syr SQ HS [facility] Insulin Human Lispro 0 unit 05/22/24 07:30 Insulin Lispro (Humalog) 100 Unit/Ml 10 Ml Vl SQ ACHS [facility] Protocol Insulin Human Lispro 12 unit 05/22/24 07:30 Insulin Lispro (Humalog) 100 Unit/Ml 10 Ml Vl SQ TID-W/MEALS [facility] Morphine Sulfate 2 mg 05/21/24 22:49 05/22/24 04:30 Morphine Sulfate 2 Mg/Ml Syringe IV 2 mg Q4HR PRN Administration Severe Pain (Scale 7 to 10) Naloxone HCl 0.2 mg 05/21/24 22:49 Naloxone 0.4 Mg/Ml 1 Ml Vial IV Q2M PRN Opioid Reversal Pantoprazole Sodium 40 mg 05/22/24 07:30 Pantoprazole 40 Mg Tablet PO AC-BRKFST [facility] Potassium Chloride 20 meq 05/22/24 09:00 Potassium Chloride Er 20 Meq Tab.Er PO DAILY [facility] Spironolactone 25 mg 05/22/24 09:00 Spironolactone 25 Mg Tab PO DAILY [facility] Intake and Output 05/21/24 05/22/24 05/22/24 22:59 06:59 14:59 Output Total 300 Balance -300 Output: Urine 300 Straight 300 Other: Weight 88.451 kg 05/22/24 06:12 05/22/24 06:12
[2024-05-23 04:37] LABS: Anisocytosis Slight; Basophils % (A) 0 %; Eosinophils # (A) 0.3 k/uL (0-0.7); Eosinophils % (A) 3 %; HCT 34.1 % (39.0-53.0); HGB 10.7 gm/dL (13.0-17.5); Hypochromasia Slight; Lymphocytes # (A) 0.8 k/uL (1.0-4.8); Lymphocytes % (A) 8 %; MCH 25.4 pg (25.0-35.0); MCHC 31.3 g/dL (31.0-37.0); MCV 81.1 fL (80.0-100.0); Mean Platelet Volume 9.4; Monocytes # (A) 0.5 k/uL (0-1.0); Monocytes % (A) 5 %; Neutrophils # (A) 8.2 k/uL (1.3-7.7); Neutrophils % (A) 82 %; Platelet Count 130 k/uL (150-450); WBC 10.1 k/uL (3.8-10.6)
[2024-05-23 04:48] LABS: ALT 58 U/L (4-49); AST 24 U/L (17-59); African American GFR (CKD) 41 (>60 ml/min/1.73 sqM); Albumin 2.6 g/dL (3.5-5.0); Alkaline Phosphatase 150 U/L (38-126); Anion Gap 6 mmol/L; Blood Urea Nitrogen 39 mg/dL (9-20); Calcium 8.1 mg/dL (8.4-10.2); Carbon Dioxide 28 mmol/L (22-30); Chloride 103 mmol/L (98-107); Glucose 165 mg/dL (74-99); Magnesium 1.8 mg/dL (1.6-2.3); Non-African American GFR(CKD) 35 (>60 ml/min/1.73 sqM); Potassium 3.4 mmol/L (3.5-5.1); Sodium 137 mmol/L (137-145); Total Bilirubin 0.8 mg/dL (0.2-1.3); Total Protein 5.1 g/dL (6.3-8.2)
[2024-05-23 07:03] LABS: Glucose,Whole Blood 170 mg/dL (70-110)
[2024-05-23] MEDS: INSULIN LISPRO (HumaLOG) 100 UNIT/ML 10 mL VL SQ SCH (07:08)
[2024-05-23] MEDS: SPIRONOLACTONE 25 MG TAB PO SCH (08:17)
--- NOTE | 2024-05-23 09:42 | US ---
EXAMINATION TYPE: US abdomen limited DATE OF EXAM: 05/23/2024 COMPARISON: CT abdomen and pelvis March 28, 2022 CLINICAL INDICATION: Male, 59 years old with history of ascites; ascites check TECHNIQUE: Grayscale imaging of the abdomen for ascites. FINDINGS: Scanning is performed of the bilateral upper and lower quadrants. No fluid seen. IMPRESSION: No significant ascites currently. [facility], Workstation: [email or web address], 05/23/2024 9:40 AM
[2024-05-23 10:45] VITALS: BMI 30.5
--- NOTE | 2024-05-23 10:53 | P.PN ---
Subjective Progress Note Date: 05/23/24 HISTORY OF PRESENT ILLNESS: This is a 59-year-old male patient of rosita and Dr. Ga with past medical history of coronary artery disease status post 6 vessel CABG 2006 with MAE to LAD, saphenous venous graft to the PDA, saphenous venous graft to the obtuse marginal one, radial artery to the obtuse marginal branch 2 and saphenous venous graft to the obtuse marginal 3 followed by heart catheterization with PCI and stent of the saphenous venous graft to the RCA in 2015 at which time he pres ented with non-ST elevated myocardial infarction. Most recent cardiac catheterization was performed on 04/10/2022 which revealed severe triple-vessel coronary artery disease with a patent ramus intermediate, patent SVG to the OM, patent MAE to the LAD, and occluded saphenous vein graft to the RCA which is chronic from before. Medical therapy was advised at that time. History of hypertension, hypertensive cardiovascular disease with left ventricular hypertrophy, hyperlipidemia, ischemic cardiomyopathy, paroxysmal atrial fibrillation, currently on Eliquis, diabetes mellitus type 2 with diabetic polyneuropathy, hyperlipidemia, asthma, obstructive sleep apnea on CPAP, chronic low back pain, DVT in the past, patient was recently hospitalized at [facility] between 05/05/2024 05/17/2024 after he was admitted for acute hypoxemic respiratory failure due to acute systolic heart failure as well as acute bronchitis was seen in consultation by pulmonary as well as by cardiology he ended up having significant acute kidney injury due to cardiorenal syndrome as well as vasomotor nephropathy, he started to recover from that, patient was supposed to come to see him in the office this week, instead he showed up in the emergency department with increased swelling both lower extremities and in creased shortness of breath, as well as increased coughing, his chest x-ray showed evidence of cardiomegaly pulmonary vascular congestion as well as right lower lobe infiltrate could be an early gram-negative pneumonia, versus atelectasis, patient was started on IV diuretics, he was admitted to the hospital for evaluation by cardiology, nephrology, as well as pulmonary medicine. Patient has significant scrotal edema, underwent ultrasound of the scrotum that showed evidence of bilateral hydrocele, with left varicocele no evidence of torsion 05/23: Patient sitting up in bed in no apparent distress, he denies any chest pain, he is less short of breath, he continues to have a significant swelling in the abdominal wall along with both lower extremities, with pitting edema, diuresing very well through the Canales catheter, has been on Lasix 40 mg IV push every 12 hours along with spironolactone, will follow-up with the patient very closely, monitor his kidney function, patient also has been started on Zosyn 3.375 g piggyback every 8 hours for possible gram-negative pneumonia as well pulmonary is following as well physical therapy evaluation, continue to follow- up with the patient very closely continue to follow-up with the labs including CBC CMP magnesium over the next 24 hours REVIEW OF SYSTEMS: Constitutional: No documented fever, no chills, no night sweats. No weight change. Positive for weakness, positive for fatigue, no lethargy. No daytime sleepiness. HEENT: No headache. No blurred vision or double vision, no loss of vision. No loss of Hearing, no ringing in the ears, no dizziness. No nasal drainage or congestion. No epistaxis. No sore throat. Lungs: positive for shortness of breath, occasional cough, minimal sputum production. no wheezing. Reports dyspnea with activity. Cardiovascular: no chest pain, positive for lower extremity edema. No palpitations. No paroxysmal nocturnal dyspnea. No orthopnea. positive for lightheadedness or dizziness. No syncopal episodes. Abdominal: Reports no abdominal pain. no nausea, vomiting. No diarrhea. No constipation. No bloody or tarry stools reports loss of appetite. Genitourinary: No dysuria, increased frequency, urgency. No urinary retention. Musculoskeletal: No myalgias. positive for muscle weakness, no gait dysfunction, frequent falls. No back pain. No neck pain. Integumentary: scabbed wounds to left caballero , no lesions. No rash or pruritus. No unusual bruising. No change in hair or nails. Neurologic: No aphasia. Minimal facial droop. No change in mentation. No head injury. No headache, minimal drift. Psychiatric: positive for depression. No anxiety. No mood swings. Endocrine: abnormal blood sugars. No weight change. PHYSICAL EXAMINATION: General: 59-year-old male laying down in no distress. HEENT: Head is atraumatic, normocephalic, pupils were equal round reactive to light and recommendation, extraocular muscle movement were intact, sclera nonicteric, conjunctivae were pale, mucous membranes of the mouth are somewhat dry. Neck: Supple, no JVP, normal carotid upstroke bilaterally, no lymphadenopathy. Chest: Decreased breath sounds at the bases, few rhonchi no expirratory wheezes,, no chest wall tenderness, no intercostal retractions. Heart: First heart sound is normal, second heart sounds normal, irregularly irregular, there is systolic ejection murmur 2/6 located in the left sternal border. Abdomen: Soft, nontender, nondistended, positive bowel sounds, there is no hepatosplenomegaly Extremities: There is +2 edema no calf tenderness DP +1 bilaterally. Neurologic examination: Patient is awake alert and oriented X 3, cranial nerves II-12 appear grossly intact, muscle power were 4 out of 5 in upper extremities and 4 out of 5 in bilateral lower extremities, deep tendon reflexes normal bilaterally. Minimal right facial droop, and right leg weakness. ASSESSMENT AND PLAN: 1. Acute on chronic systolic heart failure . continue patient on furosemide 40 mg orally twice every, we will continue with Carvedilol 25 mg po bid , continue Farxiga 5 mg orally once every day, continue hydralazine 25 mg orally 3 times every day, monitor input annd output and daily weight, cardiology consult appreciated, patient also was started on spironolactone 50 mg orally once every day, ultrasound of the abdomen still pending the time of dictation 2. right lower lobe infiltrate likely gram-negative pneumonia start the patient on Zosyn 3.375 g piggyback every 8 hours, continue with that even though the procalcitonin level is very low since the patient was in the hospital we will continue for that for now 3. Hypertension and hypertensive cardiovascular disease. Continue patient on Carvedilol 25 mg orally twice every day, continue with Hydralazine, orally 3 times every as well and monitor BP very closely. 4. Diabetes mellitus type 2. Restart the patient on Lantus 42 units at bedtime along with a sliding scale insulin, we will continue with Humalog 12 units before each meal, continue Farxiga 5 mg once every day, monitor the patient symptoms very closely 5. Coronary artery disease status post CABG 6 as well as PCI in the past. Continue patient on ASA 81 mg once every day, Carvedilol 25 mg orally twice every day, continue patient on atorvastatin 80 mg orally once every day, continue Zetia 10 mg orally once every day. 6. Hyperlipidemia. Continue patient on atorvastatin 80 mg once every day, continue Zetia 10 mg orally once every day, monitor lipid panel, keep LDL 55-70. 7. Diabetic polyneuropathy. Continue patient on gabapentin 300 mg orally 2 times every day. 8. Obstructive sleep apnea. Patient does have a CPAP at home. 9. Chronic systolic heart failure. Continue with Furosemide 40 mg IVP q 12 h , Carvedilol 25 mg po bid and add Farxiga 5 mg po daily. 10. Paroxysmal atrial fibrillation . Continue patient on Coreg 25 mg orally twice every day, Eliquis 5 mg po bid. 11. DVT prophylaxis. Continue Eliquis 5 mg orally twice every day. 12. GI prophylaxis. Continue Protonix 40 mg orally once every day. 13. History of CVA in the past recovered well will continue with Atorvastatin 80 mg po daily and Eliquis for life 14. We will follow-up with the patient Objective - Vital Signs Vital signs: Vital Signs Temp 98.9 F 05/23/24 07:00 Pulse 81 05/23/24 07:00 Resp 17 05/23/24 07:00 BP 164/91 05/23/24 07:00 Pulse Ox 98 05/23/24 07:00 FiO2 Intake & Output 05/22/24 05/23/24 05/23/24 18:59 06:59 18:59 Output Total 2400 2800 Balance -2400 -2800 Weight 88.451 kg 88.451 kg Output: Urine 2400 2800 Straight 1200 1000 Other: Voiding Method Indwelling Catheter Indwelling Catheter Indwelling Catheter - Labs CBC & Chem 7: 05/23/24 04:00 05/23/24 04:00 Labs: Abnormal Lab Results - Last 24 Hours (Table) 05/22/24 05/22/24 05/22/24 Range/Units 12:09 17:04 19:35 RBC (4.30-5.90) m/uL Hgb (13.0-17.5) gm/dL Hct (39.0-53.0) % RDW (11.5-15.5) % Plt Count (150-450) k/uL Neutrophils # (1.3-7.7) k/uL Lymphocytes # (1.0-4.8) k/uL Potassium (3.5-5.1) mmol/L BUN (9-20) mg/dL Creatinine (0.66-1.25) mg/dL Glucose (74-99) mg/dL POC Glucose (mg/dL) 238 H 61 L 137 H (70-110) mg/dL Calcium (8.4-10.2) mg/dL ALT (4-49) U/L Alkaline Phosphatase (38-126) U/L Total Protein (6.3-8.2) g/dL Albumin (3.5-5.0) g/dL 05/23/24 05/23/24 05/23/24 Range/Units 04:00 04:00 06:59 RBC 4.20 L (4.30-5.90) m/uL Hgb 10.7 L (13.0-17.5) gm/dL Hct 34.1 L (39.0-53.0) % RDW 16.0 H (11.5-15.5) % Plt Count 130 L (150-450) k/uL Neutrophils # 8.2 H (1.3-7.7) k/uL Lymphocytes # 0.8 L (1.0-4.8) k/uL Potassium 3.4 L (3.5-5.1) mmol/L BUN 39 H (9-20) mg/dL Creatinine 1.98 H (0.66-1.25) mg/dL Glucose 165 H (74-99) mg/dL POC Glucose (mg/dL) 170 H (70-110) mg/dL Calcium 8.1 L (8.4-10.2) mg/dL ALT 58 H (4-49) U/L Alkaline Phosphatase 150 H (38-126) U/L Total Protein 5.1 L (6.3-8.2) g/dL Albumin 2.6 L (3.5-5.0) g/dL
--- NOTE | 2024-05-23 11:04 | P.PN ---
Subjective Progress Note Date: 05/23/24 Impression Worsening abdominal swelling and scrotal swelling and penile swelling recently admitted with CHF exacerbation No shortness of breath but with the elevated NT proBNP Underlying atrial fibrillation rate controlled hypertension Status post CABG Left ventricular ejection fraction of about 40-45% by recent echo Suggest Discontinue IV Lasix due to worsening renal function and start oral Lasix to abdi 40 mg twice daily Continue spironolactone 50 mg daily Plan to eventually stop oral potassium and use a combination of Lasix and spironolactone Check for ascites with abdominal ultrasound Maximize hydralazine if needed Start low-dose FERMIN inhibitors/ARB once renal function is improved History of present illness Patient presented with worsening lower extremity edema but mostly penile and scrotal edema He was just discharged from the hospital with heart failure symptoms and was treated for this He has chronic kidney disease He is currently on IV Lasix Potassium is low normal despite being on oral potassium Denies any chest pain or syncope Labs Reviewed Left ventricular ejection fraction 40 to 45% Unable to afford Farxiga On examination heart sounds S1-S2 are normal Breath sounds are clear Rhythm is irregular Continued scrotal edema Continue abdominal swelling Nurse practitioner note has been reviewed, I agree with documented findings and plan of care. Patient was seen and examined. Objective - Vital Signs Vital signs: Vital Signs Temp 98.9 F 05/23/24 07:00 Pulse 81 05/23/24 07:00 Resp 17 05/23/24 07:00 BP 164/91 05/23/24 07:00 Pulse Ox 98 05/23/24 07:00 FiO2 Intake & Output 05/22/24 05/23/24 05/23/24 18:59 06:59 18:59 Output Total 2400 2800 Balance -2400 -2800 Weight 88.451 kg Output: Urine 2400 2800 Straight 1200 1000 Other: Voiding Method Indwelling Catheter Indwelling Catheter - Labs CBC & Chem 7: 05/23/24 04:00 05/23/24 04:00 Labs: Abnormal Lab Results - Last 24 Hours (Table) 05/22/24 05/22/24 05/22/24 Range/Units 06:12 12:09 17:04 RBC (4.30-5.90) m/uL Hgb (13.0-17.5) gm/dL Hct (39.0-53.0) % RDW (11.5-15.5) % Plt Count (150-450) k/uL Neutrophils # (1.3-7.7) k/uL Lymphocytes # (1.0-4.8) k/uL Potassium (3.5-5.1) mmol/L BUN (9-20) mg/dL Creatinine (0.66-1.25) mg/dL Glucose (74-99) mg/dL POC Glucose (mg/dL) 238 H 61 L (70-110) mg/dL Hemoglobin A1c 12.2 H (<=6.0) % Calcium (8.4-10.2) mg/dL ALT (4-49) U/L Alkaline Phosphatase (38-126) U/L Total Protein (6.3-8.2) g/dL Albumin (3.5-5.0) g/dL 05/22/24 05/23/24 05/23/24 Range/Units 19:35 04:00 04:00 RBC 4.20 L (4.30-5.90) m/uL Hgb 10.7 L (13.0-17.5) gm/dL Hct 34.1 L (39.0-53.0) % RDW 16.0 H (11.5-15.5) % Plt Count 130 L (150-450) k/uL Neutrophils # 8.2 H (1.3-7.7) k/uL Lymphocytes # 0.8 L (1.0-4.8) k/uL Potassium 3.4 L (3.5-5.1) mmol/L BUN 39 H (9-20) mg/dL Creatinine 1.98 H (0.66-1.25) mg/dL Glucose 165 H (74-99) mg/dL POC Glucose (mg/dL) 137 H (70-110) mg/dL Hemoglobin A1c (<=6.0) % Calcium 8.1 L (8.4-10.2) mg/dL ALT 58 H (4-49) U/L Alkaline Phosphatase 150 H (38-126) U/L Total Protein 5.1 L (6.3-8.2) g/dL Albumin 2.6 L (3.5-5.0) g/dL 05/23/24 Range/Units 06:59 RBC (4.30-5.90) m/uL Hgb (13.0-17.5) gm/dL Hct (39.0-53.0) % RDW (11.5-15.5) % Plt Count (150-450) k/uL Neutrophils # (1.3-7.7) k/uL Lymphocytes # (1.0-4.8) k/uL Potassium (3.5-5.1) mmol/L BUN (9-20) mg/dL Creatinine (0.66-1.25) mg/dL Glucose (74-99) mg/dL POC Glucose (mg/dL) 170 H (70-110) mg/dL Hemoglobin A1c (<=6.0) % Calcium (8.4-10.2) mg/dL ALT (4-49) U/L Alkaline Phosphatase (38-126) U/L Total Protein (6.3-8.2) g/dL Albumin (3.5-5.0) g/dL
--- NOTE | 2024-05-23 11:23 | P.PN ---
Subjective Patient is seen for follow-up for acute kidney injury and volume overload. Serum creatinine increased to 1.9 today. Patient continues to complain of significant scrotal swelling and has pain on ambulation. No significant shortness of breath Leg swelling persists. Lasix has been switched to oral. Aldactone was increased to 50 mg daily yesterday. Objective - Vital Signs Vital signs: Vital Signs Temp 98.9 F 05/23/24 07:00 Pulse 81 05/23/24 07:00 Resp 17 05/23/24 07:00 BP 164/91 05/23/24 07:00 Pulse Ox 98 05/23/24 07:00 FiO2 Intake & Output 05/22/24 05/23/24 05/23/24 18:59 06:59 18:59 Output Total 2400 2800 Balance -2400 -2800 Weight 88.451 kg 88.451 kg Output: Urine 2400 2800 Straight 1200 1000 Other: Voiding Method Indwelling Catheter Indwelling Catheter Indwelling Catheter - Exam Patient is awake, comfortable, no acute distress. Examination of the heart S1 and S2 Examination of the lungs bilateral breath sounds are heard Abdomen is soft nontender Examination of lower extremities shows 2+ edema bilaterally with significant scrotal edema [employer] exam grossly intact. - Labs CBC & Chem 7: 05/23/24 04:00 05/23/24 04:00 Labs: Abnormal Lab Results - Last 24 Hours (Table) 05/22/24 05/22/24 05/22/24 Range/Units 12:09 17:04 19:35 RBC (4.30-5.90) m/uL Hgb (13.0-17.5) gm/dL Hct (39.0-53.0) % RDW (11.5-15.5) % Plt Count (150-450) k/uL Neutrophils # (1.3-7.7) k/uL Lymphocytes # (1.0-4.8) k/uL Potassium (3.5-5.1) mmol/L BUN (9-20) mg/dL Creatinine (0.66-1.25) mg/dL Glucose (74-99) mg/dL POC Glucose (mg/dL) 238 H 61 L 137 H (70-110) mg/dL Calcium (8.4-10.2) mg/dL ALT (4-49) U/L Alkaline Phosphatase (38-126) U/L Total Protein (6.3-8.2) g/dL Albumin (3.5-5.0) g/dL 05/23/24 05/23/24 05/23/24 Range/Units 04:00 04:00 06:59 RBC 4.20 L (4.30-5.90) m/uL Hgb 10.7 L (13.0-17.5) gm/dL Hct 34.1 L (39.0-53.0) % RDW 16.0 H (11.5-15.5) % Plt Count 130 L (150-450) k/uL Neutrophils # 8.2 H (1.3-7.7) k/uL Lymphocytes # 0.8 L (1.0-4.8) k/uL Potassium 3.4 L (3.5-5.1) mmol/L BUN 39 H (9-20) mg/dL Creatinine 1.98 H (0.66-1.25) mg/dL Glucose 165 H (74-99) mg/dL POC Glucose (mg/dL) 170 H (70-110) mg/dL Calcium 8.1 L (8.4-10.2) mg/dL ALT 58 H (4-49) U/L Alkaline Phosphatase 150 H (38-126) U/L Total Protein 5.1 L (6.3-8.2) g/dL Albumin 2.6 L (3.5-5.0) g/dL Assessment and Plan Assessment: 1. Acute kidney injury, cardiorenal. Currently maintained on IV diuretics with improving renal function serum creatinine increased to 1.9 today however patient was noted to have significant urine retention of 2.2 L last night and Canales catheter has been placed. 2. Hypertension partly volume sensitive, improving 3. Hypokalemia secondary to diuretics 4. Acute on chronic CHF with reduced ejection fraction of 40 to 45% 5. Volume overload 6. Chronic A-fib 7. Coronary artery disease status post coronary artery bypass surgery 8. Urine retention with 2.2 L obtained on catheter placement, currently with indwelling Canales catheter. Plan: Continue to diurese patient. Switch back to IV Lasix. The increase in serum creatinine is most likely secondary to severe urine retention which is expected to improve with indwelling Canales catheter. Continue with Coreg and hydralazine Replace potassium Continue Aldactone with increased dose at 50 mg daily
[2024-05-23 12:01] LABS: Glucose,Whole Blood 121 mg/dL (70-110)
--- NOTE | 2024-05-23 12:39 | P.PN ---
Subjective Progress Note Date: 05/23/24 This is a 59-year-old male patient with a history of obstructive sleep apnea ma intained on CPAP, mild intermittent chronic bronchial asthma, lifelong non- smoker, hypertension, hyperlipidemia, diabetes mellitus, diabetic neuropathy, chronic kidney disease stage III, coronary artery disease with previous stents and subsequent bypass grafting surgery. He presented here back on May 05, 2024 with complaints of shortness of breath, he was treated and the patient was discharged home on 05/17/2024 discharged after being treated for acute on top of chronic systolic heart failure and the patient also encountered an acute kidney injury due to cardiorenal syndrome related to his CHF. The patient was discharged home on Lasix 40 mg p.o. twice a day, and he is also maintained on C oreg 25 mg p.o. twice a day, Farxiga 10 mg p.o. daily, hydralazine 25 mg p.o. 3 times daily. He is on Lantus insulin in addition to metformin for diabetes mellitus and he also takes a combination of Lipitor and Zetia for chronic hyperlipidemia. He is on anticoagulation with Eliquis regarding paroxysmal atrial fibrillation. His current rhythm remains sinus. Few days following his discharge, the patient became again progressively more short of breath. There is worsening in lower extremity edema. There was also increase in scrotal edema. Based on that, the patient presented to the hospital and the patient was admitted for acute decompensated heart failure. The white cell count of 12.1, hemoglobin 12 and a platelet count is 136. BUN is 37 with a creatinine of 1.36 and a sodium level at 135 with a potassium level is at 3. Blood sugars at 256. UA is showing +2 protein plus for glucose and there is a possibility of diabetic nephropathy/nephrotic syndrome. proBNP level is 13,000. Thyroid function test normal. LFTs show mild elevation of the alkaline phosphatase, ALT is at 83 with an AST of 42. Magnesium is at 1.8. Coagulation profile shows an INR of 1.3 with a PT of 13.6 and a PTT of 26. The patient remains on room air oxygen. Currently is on Lasix 40 mg IV every 12 hours. Rest of the home medication resumed. He is also on Aldactone 25 mg p.o. daily. He was started on empiric antibiotic coverage with IV Zosyn. 05/23/2024, slightly improved in terms of volume status. Continues to have excessive scrotal edema lower extremity edema. Still on IV Lasix 40 mg every 24 hours. Fluid balance is negative. The creatinine currently is up to 1.9 with a BUN of 39. Sodium is at 137, potassium level is at 3.4. White cell count of 10.7. The patient remains on room air oxygen. No significant shortness of breath. No fever chills or night sweats. Remains on Aldactone. Remains on Lantus insulin 28 units along with 5 units with meals. Rest of the medications are essentially unchanged. Objective - Vital Signs Vital signs: Vital Signs Temp 98.9 F 05/23/24 07:00 Pulse 81 05/23/24 07:00 Resp 17 05/23/24 07:00 BP 164/91 05/23/24 07:00 Pulse Ox 98 05/23/24 07:00 FiO2 Intake & Output 05/22/24 05/23/24 05/23/24 18:59 06:59 18:59 Output Total 2400 2800 Balance -2400 -2800 Weight 88.451 kg Output: Urine 2400 2800 Straight 1200 1000 Other: Voiding Method Indwelling Catheter Indwelling Catheter Indwelling Catheter - Exam GENERAL EXAM: Revealed 59-year-old white male in no distress, on room air. HEAD: Normocephalic. EYES: Normal reaction of pupils, equal size. NOSE: Clear with pink turbinates. THROAT: No erythema or exudates. NECK: No masses, no JVD. CHEST: No chest wall deformity. LUNGS: Clear throughout no crackles rhonchi or wheezes CVS: S1 and S2 normal with no audible murmur, regular rhythm. ABDOMEN: No hepatosplenomegaly, normal bowel sounds, no guarding or rigidity. SKIN: No rashes CENTRAL NERVOUS SYSTEM: No focal deficits, tone is normal in all 4 extremities. EXTREMITIES: There is 1+ bipedal. No clubbing, no cyanosis. Peripheral pulses are intact. Psychiatric: Depressed mood flat affect normal mental status. - Labs CBC & Chem 7: 05/23/24 04:00 05/23/24 04:00 Labs: Abnormal Lab Results - Last 24 Hours (Table) 05/22/24 05/22/24 05/22/24 Range/Units 12:09 17:04 19:35 RBC (4.30-5.90) m/uL Hgb (13.0-17.5) gm/dL Hct (39.0-53.0) % RDW (11.5-15.5) % Plt Count (150-450) k/uL Neutrophils # (1.3-7.7) k/uL Lymphocytes # (1.0-4.8) k/uL Potassium (3.5-5.1) mmol/L BUN (9-20) mg/dL Creatinine (0.66-1.25) mg/dL Glucose (74-99) mg/dL POC Glucose (mg/dL) 238 H 61 L 137 H (70-110) mg/dL Calcium (8.4-10.2) mg/dL ALT (4-49) U/L Alkaline Phosphatase (38-126) U/L Total Protein (6.3-8.2) g/dL Albumin (3.5-5.0) g/dL 05/23/24 05/23/24 05/23/24 Range/Units 04:00 04:00 06:59 RBC 4.20 L (4.30-5.90) m/uL Hgb 10.7 L (13.0-17.5) gm/dL Hct 34.1 L (39.0-53.0) % RDW 16.0 H (11.5-15.5) % Plt Count 130 L (150-450) k/uL Neutrophils # 8.2 H (1.3-7.7) k/uL Lymphocytes # 0.8 L (1.0-4.8) k/uL Potassium 3.4 L (3.5-5.1) mmol/L BUN 39 H (9-20) mg/dL Creatinine 1.98 H (0.66-1.25) mg/dL Glucose 165 H (74-99) mg/dL POC Glucose (mg/dL) 170 H (70-110) mg/dL Calcium 8.1 L (8.4-10.2) mg/dL ALT 58 H (4-49) U/L Alkaline Phosphatase 150 H (38-126) U/L Total Protein 5.1 L (6.3-8.2) g/dL Albumin 2.6 L (3.5-5.0) g/dL Assessment and Plan Plan: Acute exacerbation of chronic systolic congestive heart failure with ejection fraction 40 to 45% based on echocardiogram that was done on 06/07/2023. The patient has moderate LV systolic dysfunction and moderate to severe pulmonary hypertension and moderate degree of posteriorly directed mitral regurgitation and severe tricuspid regurgitation consistent with valvular heart disease. Estimated right ventricular systolic pressure was 57 mmHg. MIld intermittent asthma Chronic stage III kidney disease, creatinine slightly elevated compared to yesterday due to diuresis. Diabetes mellitus, type II Diabetic neuropathy with +2 protein in the UA. Rule out underlying nephrosis Coronary artery disease with previous stents/coronary artery bypass grafting CHF with ischemic cardiomyopathy, EF of around 40 to 45%, moderate-severe pulm hypertension, mitral regurgitation and severe tricuspid regurgitation and pulmonary hypertension. Hyperlipidemia Hypertension Chronic lower extremity edema Scrotal edema Indeterminate hypoechoic lesion involving the right kidney measuring 1.3 cm in size that needs to be further worked up on outpatient basis with an MRI. The patient also has a simple cyst involving the left kidney measuring 1.9 cm in size. Recommendation: Patient currently on room air oxygen Optimize CHF Continue IV Lasix and monitor renal function., Continue Coreg, Farxiga, Aldactone Continue hydralazine Continue insulin Lantus 28 units along with sliding scale coverage and 5 units of NovoLog with meals Antibiotic coverage essentially empiric at this point Monitor volume status Monitor electrolytes and renal function Will continue to follow. Repeat chest x-ray in a.m.
[2024-05-23] MEDS ORDERED: FUROSEMIDE 40 MG TAB PO SCH (16:00)
[2024-05-23 17:08] LABS: Glucose,Whole Blood 193 mg/dL (70-110)
[2024-05-23 19:47] LABS: Glucose,Whole Blood 188 mg/dL (70-110)
[2024-05-23] MEDS: NYSTATIN 100,000 UNIT/GM POWD 15 GM TOPICAL SCH (21:49)
[2024-05-23] MEDS: HYDROcodone/APAP 5-325MG 1 EACH TAB PO PRN (23:44)
[2024-05-24 06:07] LABS: Glucose,Whole Blood 64 mg/dL (70-110)
[2024-05-24 06:23] LABS: Glucose,Whole Blood 65 mg/dL (70-110)
[2024-05-24 06:44] LABS: Glucose,Whole Blood 78 mg/dL (70-110)
--- NOTE | 2024-05-24 07:18 | XR ---
EXAMINATION TYPE: XR chest 1V DATE OF EXAM: 05/24/2024 COMPARISON: 05/21/2024 CLINICAL INDICATION: Male, 59 years old with history of CHF, pleural effusions; shortness of breath TECHNIQUE: Single frontal view of the chest is obtained. FINDINGS: Median sternotomy wires with post-CABG clips redemonstrated. Heart remains mild to moderat kaela enlarged. Ongoing diffuse interstitial and pulmonary vascular density. Pleural effusions not well seen on the frontal view. IMPRESSION: Overall similar CHF with pulmonary vascular congestion. [facility], Workstation: [id number], 05/24/2024 7:16 AM
[2024-05-24] MEDS: FUROSEMIDE 10 MG/ML 4 ML VIAL IV SCH ×2 (07:56→21:02)
[2024-05-24 09:30] LABS: Anisocytosis Slight; Basophils # (A) 0.1 k/uL (0-0.2); Basophils % (A) 1 %; Eosinophils # (A) 0.3 k/uL (0-0.7); Eosinophils % (A) 3 %; HCT 36.2 % (39.0-53.0); HGB 11.1 gm/dL (13.0-17.5); Hypochromasia Moderate; Lymphocytes # (A) 0.5 k/uL (1.0-4.8); Lymphocytes % (A) 5 %; MCH 25.7 pg (25.0-35.0); MCHC 30.8 g/dL (31.0-37.0); MCV 83.3 fL (80.0-100.0); Mean Platelet Volume 9.7; Monocytes # (A) 0.6 k/uL (0-1.0); Monocytes % (A) 7 %; Neutrophils # (A) 7.2 k/uL (1.3-7.7); Neutrophils % (A) 83 %; Platelet Count 136 k/uL (150-450); RBC 4.34 m/uL (4.30-5.90); RDW 16.1 % (11.5-15.5); WBC 8.7 k/uL (3.8-10.6)
[2024-05-24 09:31] LABS: ALT 52 U/L (4-49); AST 24 U/L (17-59); African American GFR (CKD) 43 (>60 ml/min/1.73 sqM); Albumin 3.2 g/dL (3.5-5.0); Alkaline Phosphatase 193 U/L (38-126); Anion Gap 11 mmol/L; Blood Urea Nitrogen 39 mg/dL (9-20); Calcium 8.2 mg/dL (8.4-10.2); Carbon Dioxide 27 mmol/L (22-30); Chloride 101 mmol/L (98-107); Glucose 144 mg/dL (74-99); Non-African American GFR(CKD) 37 (>60 ml/min/1.73 sqM); Sodium 139 mmol/L (137-145); Total Bilirubin 1.3 mg/dL (0.2-1.3); Total Protein 6.2 g/dL (6.3-8.2)
--- NOTE | 2024-05-24 10:33 | P.PN ---
Subjective Progress Note Date: 05/24/24 HISTORY OF PRESENT ILLNESS: This is a 59-year-old male patient of rosita and Dr. Ga with past medical history of coronary artery disease status post 6 vessel CABG 2006 with MAE to LAD, saphenous venous graft to the PDA, saphenous venous graft to the obtuse marginal one, radial artery to the obtuse marginal branch 2 and saphenous venous graft to the obtuse marginal 3 followed by heart catheterization with PCI and stent of the saphenous venous graft to the RCA in 2015 at which time he pres ented with non-ST elevated myocardial infarction. Most recent cardiac catheterization was performed on 04/10/2022 which revealed severe triple-vessel coronary artery disease with a patent ramus intermediate, patent SVG to the OM, patent MAE to the LAD, and occluded saphenous vein graft to the RCA which is chronic from before. Medical therapy was advised at that time. History of hypertension, hypertensive cardiovascular disease with left ventricular hypertrophy, hyperlipidemia, ischemic cardiomyopathy, paroxysmal atrial fibrillation, currently on Eliquis, diabetes mellitus type 2 with diabetic polyneuropathy, hyperlipidemia, asthma, obstructive sleep apnea on CPAP, chronic low back pain, DVT in the past, patient was recently hospitalized at [facility] between 05/05/2024 05/17/2024 after he was admitted for acute hypoxemic respiratory failure due to acute systolic heart failure as well as acute bronchitis was seen in consultation by pulmonary as well as by cardiology he ended up having significant acute kidney injury due to cardiorenal syndrome as well as vasomotor nephropathy, he started to recover from that, patient was supposed to come to see him in the office this week, instead he showed up in the emergency department with increased swelling both lower extremities and in creased shortness of breath, as well as increased coughing, his chest x-ray showed evidence of cardiomegaly pulmonary vascular congestion as well as right lower lobe infiltrate could be an early gram-negative pneumonia, versus atelectasis, patient was started on IV diuretics, he was admitted to the hospital for evaluation by cardiology, nephrology, as well as pulmonary medicine. Patient has significant scrotal edema, underwent ultrasound of the scrotum that showed evidence of bilateral hydrocele, with left varicocele no evidence of torsion 05/23: Patient sitting up in bed in no apparent distress, he denies any chest pain, he is less short of breath, he continues to have a significant swelling in the abdominal wall along with both lower extremities, with pitting edema, diuresing very well through the Canales catheter, has been on Lasix 40 mg IV push every 12 hours along with spironolactone, will follow-up with the patient very closely, monitor his kidney function, patient also has been started on Zosyn 3.375 g piggyback every 8 hours for possible gram-negative pneumonia as well pulmonary is following as well physical therapy evaluation, continue to follow- up with the patient very closely continue to follow-up with the labs including CBC CMP magnesium over the next 24 hours 05/24: Patient continues to have significant edema in the abdominal wall as well as upper thighs and bilateral lower extremities, he has Canales catheter in place, he has scrotal edema, he has foreskin edema as well, he is complain of significant pain in the scrotal area, he has been started on pain management as well as nystatin powder to alleviate some of the skin infection, he was switched yesterday again to frusemide 40 mg IV push every 12 hours because of significant weight gain, he was started on spironolactone 50 mg once every day, Farxiga 5 mg once every day, lipid better today but not a whole lot, will switch the patient to inpatient at this point in time due to acute systolic heart failure. REVIEW OF SYSTEMS: Constitutional: No documented fever, no chills, no night sweats. No weight c hange. Positive for weakness, positive for fatigue, no lethargy. No daytime sleepiness. HEENT: No headache. No blurred vision or double vision, no loss of vision. No loss of Hearing, no ringing in the ears, no dizziness. No nasal drainage or congestion. No epistaxis. No sore throat. Lungs: positive for shortness of breath, occasional cough, minimal sputum production. no wheezing. Reports dyspnea with activity. Cardiovascular: no chest pain, positive for lower extremity edema. No pa lpitations. No paroxysmal nocturnal dyspnea. No orthopnea. positive for lightheadedness or dizziness. No syncopal episodes. Abdominal: Reports no abdominal pain. no nausea, vomiting. No diarrhea. No constipation. No bloody or tarry stools reports loss of appetite. Genitourinary: No dysuria, increased frequency, urgency. No urinary retention. Musculoskeletal: No myalgias. positive for muscle weakness, no gait dysfunction, frequent falls. No back pain. No neck pain. Integumentary: scabbed wounds to left caballero , no lesions. No rash or pruritus. No unusual bruising. No change in hair or nails. Neurologic: No aphasia. Minimal facial droop. No change in mentation. No head injury. No headache, minimal drift. Psychiatric: positive for depression. No anxiety. No mood swings. Endocrine: abnormal blood sugars. No weight change. PHYSICAL EXAMINATION: General: 59-year-old male laying down in mild distress. HEENT: Head is atraumatic, normocephalic, pupils were equal round reactive to light and recommendation, extraocular muscle movement were intact, sclera nonict herbert, conjunctivae were pale, mucous membranes of the mouth are somewhat dry. Neck: Supple, no JVP, normal carotid upstroke bilaterally, no lymphadenopathy. Chest: Decreased breath sounds at the bases, few rhonchi no expirratory wheezes,, no chest wall tenderness, no intercostal retractions. Heart: First heart sound is normal, second heart sounds normal, irregularly irregular, there is systolic ejection murmur 2/6 located in the left sternal border. Abdomen: Soft, nontender, nondistended, positive bowel sounds, there is no hepatosplenomegaly Extremities: There is +2 edema no calf tenderness DP +1 bilaterally, there is scrotal edema as well. Neurologic examination: Patient is awake alert and oriented X 3, cranial nerves II-12 appear grossly intact, muscle power were 4 out of 5 in upper extremities and 4 out of 5 in bilateral lower extremities, deep tendon reflexes normal bilaterally. Minimal right facial droop, and right leg weakness. ASSESSMENT AND PLAN: 1. Acute on chronic systolic heart failure . continue patient on furosemide 40 mg IV push daily, we will continue with Carvedilol 25 mg po bid , continue Farxiga 5 mg orally once every day, continue hydralazine 25 mg orally 3 times every day, monitor input annd output and daily weight, cardiology consult appreciated, patient also was started on spironolactone 50 mg orally once every day, ultrasound of the abdomen still pending the time of dictation 2. right lower lobe infiltrate likely gram-negative pneumonia start the patient on Zosyn 3.375 g piggyback every 8 hours, continue with that even though the procalcitonin level is very low since the patient was in the hospital we will continue for that for now 3. Hypertension and hypertensive cardiovascular disease. Continue patient on Carvedilol 25 mg orally twice every day, continue with Hydralazine, orally 3 times every as well and monitor BP very closely. 4. Diabetes mellitus type 2. Restart the patient on Lantus 26 units at bedtime along with a sliding scale insulin, we will continue with Humalog 5 units before each meal, continue Farxiga 5 mg once every day, monitor the patient symptoms very closely 5. Coronary artery disease status post CABG 6 as well as PCI in the past. Continue patient on ASA 81 mg once every day, Carvedilol 25 mg orally twice every day, continue patient on atorvastatin 80 mg orally once every day, continue Zetia 10 mg orally once every day. 6. Hyperlipidemia. Continue patient on atorvastatin 80 mg once every day, continue Zetia 10 mg orally once every day, monitor lipid panel, keep LDL 55-70. 7. Diabetic polyneuropathy. Continue patient on gabapentin 300 mg orally 2 times every day. 8. Obstructive sleep apnea. Patient does have a CPAP at home. 9. Chronic systolic heart failure. Continue with Furosemide 40 mg IVP daily, Carvedilol 25 mg po bid and add Farxiga 5 mg po daily. 10. Paroxysmal atrial fibrillation . Continue patient on Coreg 25 mg orally twice every day, Eliquis 5 mg po bid. 11. DVT prophylaxis. Continue Eliquis 5 mg orally twice every day. 12. GI prophylaxis. Continue Protonix 40 mg orally once every day. 13. History of CVA in the past recovered well will continue with Atorvastatin 80 mg po daily and Eliquis for life 14. We will follow-up with the patient Objective - Vital Signs Vital signs: Vital Signs Temp 98.4 F 05/24/24 07:00 Pulse 70 05/24/24 07:00 Resp 17 05/24/24 07:00 BP 136/74 05/24/24 07:00 Pulse Ox 95 05/24/24 07:00 FiO2 Intake & Output 05/23/24 05/24/24 05/24/24 18:59 06:59 18:59 Intake Total 100 Output Total 4670 1375 400 Balance -1450 -1375 -400 Weight 88.451 kg Intake: Intake, IV Titration 100 Amount Piperacillin-Tazobactam 3 100 .375 gm In Sodium Chloride 0.9% 100 ml @ 25 mls/hr IVPB Q8HR [facility] Rx# :[id number] Output: Urine 1550 1375 400 Straight 400 Other: Voiding Method Indwelling Catheter Indwelling Catheter Indwelling Catheter - Labs CBC & Chem 7: 05/24/24 08:38 05/24/24 08:38 Labs: Abnormal Lab Results - Last 24 Hours (Table) 05/23/24 05/23/24 05/23/24 Range/Units 11:59 17:07 19:46 Hgb (13.0-17.5) gm/dL Hct (39.0-53.0) % MCHC (31.0-37.0) g/dL RDW (11.5-15.5) % Plt Count (150-450) k/uL Lymphocytes # (1.0-4.8) k/uL BUN (9-20) mg/dL Creatinine (0.66-1.25) mg/dL Glucose (74-99) mg/dL POC Glucose (mg/dL) 121 H 193 H 188 H (70-110) mg/dL Calcium (8.4-10.2) mg/dL ALT (4-49) U/L Alkaline Phosphatase (38-126) U/L Total Protein (6.3-8.2) g/dL Albumin (3.5-5.0) g/dL 05/24/24 05/24/24 05/24/24 Range/Units 06:07 06:22 08:38 Hgb 11.1 L (13.0-17.5) gm/dL Hct 36.2 L (39.0-53.0) % MCHC 30.8 L (31.0-37.0) g/dL RDW 16.1 H (11.5-15.5) % Plt Count 136 L (150-450) k/uL Lymphocytes # 0.5 L (1.0-4.8) k/uL BUN (9-20) mg/dL Creatinine (0.66-1.25) mg/dL Glucose (74-99) mg/dL POC Glucose (mg/dL) 64 L 65 L (70-110) mg/dL Calcium (8.4-10.2) mg/dL ALT (4-49) U/L Alkaline Phosphatase (38-126) U/L Total Protein (6.3-8.2) g/dL Albumin (3.5-5.0) g/dL 05/24/24 Range/Units 08:38 Hgb (13.0-17.5) gm/dL Hct (39.0-53.0) % MCHC (31.0-37.0) g/dL RDW (11.5-15.5) % Plt Count (150-450) k/uL Lymphocytes # (1.0-4.8) k/uL BUN 39 H (9-20) mg/dL Creatinine 1.90 H (0.66-1.25) mg/dL Glucose 144 H (74-99) mg/dL POC Glucose (mg/dL) (70-110) mg/dL Calcium 8.2 L (8.4-10.2) mg/dL ALT 52 H (4-49) U/L Alkaline Phosphatase 193 H (38-126) U/L Total Protein 6.2 L (6.3-8.2) g/dL Albumin 3.2 L (3.5-5.0) g/dL Microbiology - Last 24 Hours (Table) 05/22/24 07:38 Blood Culture - Preliminary Blood
[2024-05-24 11:28] LABS: Glucose,Whole Blood 208 mg/dL (70-110)
--- NOTE | 2024-05-24 11:46 | P.PN ---
Subjective Progress Note Date: 05/24/24 Impression Worsening abdominal swelling and scrotal swelling and penile swelling recently admitted with CHF exacerbation No shortness of breath but with the elevated NT proBNP Underlying atrial fibrillation rate controlled hypertension Status post CABG Left ventricular ejection fraction of about 40-45% by recent echo Plan Patient has been resumed on IV Lasix 40 mg daily by nephrology Continue spironolactone 50 mg daily Plan to eventually stop oral potassium and use a combination of Lasix and spiron olactone Maximize hydralazine if needed Start low-dose FERMIN inhibitors/ARB once renal function is improved History of present illness Patient presented with worsening lower extremity edema but mostly penile and scrotal edema He was just discharged from the hospital with heart failure symptoms and was treated for this He has chronic kidney disease He is currently on IV Lasix Denies any chest pain or syncope Labs Reviewed Left ventricular ejection fraction 40 to 45% Unable to afford Farxiga No ascites on abdominal ultrasound On examination heart sounds S1-S2 are normal Breath sounds are clear Rhythm is irregular Continued scrotal edema Continue abdominal swelling and worsening scrotal edema Nurse practitioner note has been reviewed, I agree with documented findings and plan of care. Patient was seen and examined. Objective - Vital Signs Vital signs: Vital Signs Temp 98.4 F 05/24/24 07:00 Pulse 70 05/24/24 07:00 Resp 17 05/24/24 07:00 BP 136/74 05/24/24 07:00 Pulse Ox 95 05/24/24 07:00 FiO2 Intake & Output 05/23/24 05/24/24 05/24/24 18:59 06:59 18:59 Intake Total 100 Output Total 1550 1375 Balance -1450 -1375 Weight 88.451 kg Intake: Intake, IV Titration 100 Amount Piperacillin-Tazobactam 3 100 .375 gm In Sodium Chloride 0.9% 100 ml @ 25 mls/hr IVPB Q8HR [facility] Rx# :[id number] Output: Urine 1550 1375 Other: Voiding Method Indwelling Catheter Indwelling Catheter - Labs CBC & Chem 7: 05/24/24 08:38 05/24/24 08:38 Labs: Abnormal Lab Results - Last 24 Hours (Table) 05/23/24 05/23/24 05/23/24 Range/Units 11:59 17:07 19:46 Hgb (13.0-17.5) gm/dL Hct (39.0-53.0) % MCHC (31.0-37.0) g/dL RDW (11.5-15.5) % Plt Count (150-450) k/uL Lymphocytes # (1.0-4.8) k/uL BUN (9-20) mg/dL Creatinine (0.66-1.25) mg/dL Glucose (74-99) mg/dL POC Glucose (mg/dL) 121 H 193 H 188 H (70-110) mg/dL Calcium (8.4-10.2) mg/dL ALT (4-49) U/L Alkaline Phosphatase (38-126) U/L Total Protein (6.3-8.2) g/dL Albumin (3.5-5.0) g/dL 05/24/24 05/24/24 05/24/24 Range/Units 06:07 06:22 08:38 Hgb 11.1 L (13.0-17.5) gm/dL Hct 36.2 L (39.0-53.0) % MCHC 30.8 L (31.0-37.0) g/dL RDW 16.1 H (11.5-15.5) % Plt Count 136 L (150-450) k/uL Lymphocytes # 0.5 L (1.0-4.8) k/uL BUN (9-20) mg/dL Creatinine (0.66-1.25) mg/dL Glucose (74-99) mg/dL POC Glucose (mg/dL) 64 L 65 L (70-110) mg/dL Calcium (8.4-10.2) mg/dL ALT (4-49) U/L Alkaline Phosphatase (38-126) U/L Total Protein (6.3-8.2) g/dL Albumin (3.5-5.0) g/dL 05/24/24 Range/Units 08:38 Hgb (13.0-17.5) gm/dL Hct (39.0-53.0) % MCHC (31.0-37.0) g/dL RDW (11.5-15.5) % Plt Count (150-450) k/uL Lymphocytes # (1.0-4.8) k/uL BUN 39 H (9-20) mg/dL Creatinine 1.90 H (0.66-1.25) mg/dL Glucose 144 H (74-99) mg/dL POC Glucose (mg/dL) (70-110) mg/dL Calcium 8.2 L (8.4-10.2) mg/dL ALT 52 H (4-49) U/L Alkaline Phosphatase 193 H (38-126) U/L Total Protein 6.2 L (6.3-8.2) g/dL Albumin 3.2 L (3.5-5.0) g/dL Microbiology - Last 24 Hours (Table) 05/22/24 07:38 Blood Culture - Preliminary Blood
--- NOTE | 2024-05-24 12:02 | P.PN ---
Subjective Patient is seen for follow-up for acute kidney injury and volume overload. Serum creatinine remains at 1.9 Canales catheter placed for urine retention. Patient continues to complain of significant scrotal swelling and has pain on ambulation. No significant shortness of breath Leg swelling persists. Restarted on IV Lasix Objective - Vital Signs Vital signs: Vital Signs Temp 98.4 F 05/24/24 07:00 Pulse 70 05/24/24 07:00 Resp 17 05/24/24 07:00 BP 136/74 05/24/24 07:00 Pulse Ox 95 05/24/24 07:00 FiO2 Intake & Output 05/23/24 05/24/24 05/24/24 18:59 06:59 18:59 Intake Total 100 Output Total 1550 1375 400 Balance -1450 -1375 -400 Weight 88.451 kg Intake: Intake, IV Titration 100 Amount Piperacillin-Tazobactam 3 100 .375 gm In Sodium Chloride 0.9% 100 ml @ 25 mls/hr IVPB Q8HR [facility] Rx# :[id number] Output: Urine 1550 1375 400 Straight 400 Other: Voiding Method Indwelling Catheter Indwelling Catheter Indwelling Catheter - Exam Patient is awake, comfortable, no acute distress. Examination of the heart S1 and S2 Examination of the lungs bilateral breath sounds are heard Abdomen is soft nontender Examination of lower extremities shows 2+ edema bilaterally with significant scrotal edema [employer] exam grossly intact. - Labs CBC & Chem 7: 05/24/24 08:38 05/24/24 08:38 Labs: Abnormal Lab Results - Last 24 Hours (Table) 05/23/24 05/23/24 05/23/24 Range/Units 11:59 17:07 19:46 Hgb (13.0-17.5) gm/dL Hct (39.0-53.0) % MCHC (31.0-37.0) g/dL RDW (11.5-15.5) % Plt Count (150-450) k/uL Lymphocytes # (1.0-4.8) k/uL BUN (9-20) mg/dL Creatinine (0.66-1.25) mg/dL Glucose (74-99) mg/dL POC Glucose (mg/dL) 121 H 193 H 188 H (70-110) mg/dL Calcium (8.4-10.2) mg/dL ALT (4-49) U/L Alkaline Phosphatase (38-126) U/L Total Protein (6.3-8.2) g/dL Albumin (3.5-5.0) g/dL 05/24/24 05/24/24 05/24/24 Range/Units 06:07 06:22 08:38 Hgb 11.1 L (13.0-17.5) gm/dL Hct 36.2 L (39.0-53.0) % MCHC 30.8 L (31.0-37.0) g/dL RDW 16.1 H (11.5-15.5) % Plt Count 136 L (150-450) k/uL Lymphocytes # 0.5 L (1.0-4.8) k/uL BUN (9-20) mg/dL Creatinine (0.66-1.25) mg/dL Glucose (74-99) mg/dL POC Glucose (mg/dL) 64 L 65 L (70-110) mg/dL Calcium (8.4-10.2) mg/dL ALT (4-49) U/L Alkaline Phosphatase (38-126) U/L Total Protein (6.3-8.2) g/dL Albumin (3.5-5.0) g/dL 05/24/24 05/24/24 Range/Units 08:38 11:27 Hgb (13.0-17.5) gm/dL Hct (39.0-53.0) % MCHC (31.0-37.0) g/dL RDW (11.5-15.5) % Plt Count (150-450) k/uL Lymphocytes # (1.0-4.8) k/uL BUN 39 H (9-20) mg/dL Creatinine 1.90 H (0.66-1.25) mg/dL Glucose 144 H (74-99) mg/dL POC Glucose (mg/dL) 208 H (70-110) mg/dL Calcium 8.2 L (8.4-10.2) mg/dL ALT 52 H (4-49) U/L Alkaline Phosphatase 193 H (38-126) U/L Total Protein 6.2 L (6.3-8.2) g/dL Albumin 3.2 L (3.5-5.0) g/dL Microbiology - Last 24 Hours (Table) 05/22/24 07:38 Blood Culture - Preliminary Blood Assessment and Plan Assessment: 1. Acute kidney injury, cardiorenal. Currently maintained on IV diuretics with improving renal function, serum creatinine increased to 1.9 secondary to significant urine retention of 2.2 L and Canales catheter has been placed. 2. Hypertension partly volume sensitive, improving 3. Hypokalemia secondary to diuretics 4. Acute on chronic CHF with reduced ejection fraction of 40 to 45% 5. Volume overload 6. Chronic A-fib 7. Coronary artery disease status post coronary artery bypass surgery 8. Urine retention with 2.2 L obtained on catheter placement, currently with indwelling Canales catheter. Plan: Continue to diurese patient. Increase Lasix and add low-dose Zaroxolyn Continue with Coreg and hydralazine Replace potassium Continue Aldactone with increased dose at 50 mg daily
[2024-05-24] MEDS: metOLazone 2.5 MG TAB PO SCH (13:29)
--- NOTE | 2024-05-24 13:53 | P.PN ---
Subjective Progress Note Date: 05/24/24 This is a 59-year-old male patient with a history of obstructive sleep apnea ma intained on CPAP, mild intermittent chronic bronchial asthma, lifelong non- smoker, hypertension, hyperlipidemia, diabetes mellitus, diabetic neuropathy, chronic kidney disease stage III, coronary artery disease with previous stents and subsequent bypass grafting surgery. He presented here back on May 05, 2024 with complaints of shortness of breath, he was treated and the patient was discharged home on 05/17/2024 discharged after being treated for acute on top of chronic systolic heart failure and the patient also encountered an acute kidney injury due to cardiorenal syndrome related to his CHF. The patient was discharged home on Lasix 40 mg p.o. twice a day, and he is also maintained on C oreg 25 mg p.o. twice a day, Farxiga 10 mg p.o. daily, hydralazine 25 mg p.o. 3 times daily. He is on Lantus insulin in addition to metformin for diabetes mellitus and he also takes a combination of Lipitor and Zetia for chronic hyperlipidemia. He is on anticoagulation with Eliquis regarding paroxysmal atrial fibrillation. His current rhythm remains sinus. Few days following his discharge, the patient became again progressively more short of breath. There is worsening in lower extremity edema. There was also increase in scrotal edema. Based on that, the patient presented to the hospital and the patient was admitted for acute decompensated heart failure. The white cell count of 12.1, hemoglobin 12 and a platelet count is 136. BUN is 37 with a creatinine of 1.36 and a sodium level at 135 with a potassium level is at 3. Blood sugars at 256. UA is showing +2 protein plus for glucose and there is a possibility of diabetic nephropathy/nephrotic syndrome. proBNP level is 13,000. Thyroid function test normal. LFTs show mild elevation of the alkaline phosphatase, ALT is at 83 with an AST of 42. Magnesium is at 1.8. Coagulation profile shows an INR of 1.3 with a PT of 13.6 and a PTT of 26. The patient remains on room air oxygen. Currently is on Lasix 40 mg IV every 12 hours. Rest of the home medication resumed. He is also on Aldactone 25 mg p.o. daily. He was started on empiric antibiotic coverage with IV Zosyn. 05/23/2024, slightly improved in terms of volume status. Continues to have excessive scrotal edema lower extremity edema. Still on IV Lasix 40 mg every 24 hours. Fluid balance is negative. The creatinine currently is up to 1.9 with a BUN of 39. Sodium is at 137, potassium level is at 3.4. White cell count of 10.7. The patient remains on room air oxygen. No significant shortness of breath. No fever chills or night sweats. Remains on Aldactone. Remains on Lantus insulin 28 units along with 5 units with meals. Rest of the medications are essentially unchanged. 05/24/2024, the patient is being seen for a follow-up.. Continues to diurese and the patient remains on Lasix 40 mg IV every 12 hours. Fluid balance remains negative and the patient has been in -2.8 L negative fluid balance and the patient is producing additional 1 L since earlier this morning. Creatinine remained stable at 1.9. BUN is at 39. Sodium levels at 139, the white cell count of 3.7 with a hemoglobin of 11.1. A repeat chest x-ray was done today and shows similar CHF findings with pulm vascular congestion. Ultrasound abdomen was also done yesterday and it showed no significant ascites. Continues to have scrotal edema. Remains on room air oxygen. No other significant events overnight. Objective - Vital Signs Vital signs: Vital Signs Temp 98.4 F 05/24/24 07:00 Pulse 70 05/24/24 07:00 Resp 17 05/24/24 07:00 BP 136/74 05/24/24 07:00 Pulse Ox 95 05/24/24 07:00 FiO2 Intake & Output 05/23/24 05/24/24 05/24/24 18:59 06:59 18:59 Intake Total 100 Output Total 1550 1375 1300 Balance -1450 -1375 -1300 Weight 88.451 kg Intake: Intake, IV Titration 100 Amount Piperacillin-Tazobactam 3 100 .375 gm In Sodium Chloride 0.9% 100 ml @ 25 mls/hr IVPB Q8HR [facility] Rx# :[id number] Output: Urine 1550 1375 1300 Straight 1300 Other: Voiding Method Indwelling Catheter Indwelling Catheter Indwelling Catheter - Exam GENERAL EXAM: Revealed 59-year-old white male in no distress, on room air. HEAD: Normocephalic. EYES: Normal reaction of pupils, equal size. NOSE: Clear with pink turbinates. THROAT: No erythema or exudates. NECK: No masses, no JVD. CHEST: No chest wall deformity. LUNGS: Clear throughout no crackles rhonchi or wheezes CVS: S1 and S2 normal with no audible murmur, regular rhythm. ABDOMEN: No hepatosplenomegaly, normal bowel sounds, no guarding or rigidity. SKIN: No rashes CENTRAL NERVOUS SYSTEM: No focal deficits, tone is normal in all 4 extremities. EXTREMITIES: There is 1+ bipedal. No clubbing, no cyanosis. Peripheral pulses are intact. Psychiatric: Depressed mood flat affect normal mental status. - Labs CBC & Chem 7: 05/24/24 08:38 05/24/24 08:38 Labs: Abnormal Lab Results - Last 24 Hours (Table) 05/23/24 05/23/24 05/24/24 Range/Units 17:07 19:46 06:07 Hgb (13.0-17.5) gm/dL Hct (39.0-53.0) % MCHC (31.0-37.0) g/dL RDW (11.5-15.5) % Plt Count (150-450) k/uL Lymphocytes # (1.0-4.8) k/uL BUN (9-20) mg/dL Creatinine (0.66-1.25) mg/dL Glucose (74-99) mg/dL POC Glucose (mg/dL) 193 H 188 H 64 L (70-110) mg/dL Calcium (8.4-10.2) mg/dL ALT (4-49) U/L Alkaline Phosphatase (38-126) U/L Total Protein (6.3-8.2) g/dL Albumin (3.5-5.0) g/dL 05/24/24 05/24/24 05/24/24 Range/Units 06:22 08:38 08:38 Hgb 11.1 L (13.0-17.5) gm/dL Hct 36.2 L (39.0-53.0) % MCHC 30.8 L (31.0-37.0) g/dL RDW 16.1 H (11.5-15.5) % Plt Count 136 L (150-450) k/uL Lymphocytes # 0.5 L (1.0-4.8) k/uL BUN 39 H (9-20) mg/dL Creatinine 1.90 H (0.66-1.25) mg/dL Glucose 144 H (74-99) mg/dL POC Glucose (mg/dL) 65 L (70-110) mg/dL Calcium 8.2 L (8.4-10.2) mg/dL ALT 52 H (4-49) U/L Alkaline Phosphatase 193 H (38-126) U/L Total Protein 6.2 L (6.3-8.2) g/dL Albumin 3.2 L (3.5-5.0) g/dL 05/24/24 Range/Units 11:27 Hgb (13.0-17.5) gm/dL Hct (39.0-53.0) % MCHC (31.0-37.0) g/dL RDW (11.5-15.5) % Plt Count (150-450) k/uL Lymphocytes # (1.0-4.8) k/uL BUN (9-20) mg/dL Creatinine (0.66-1.25) mg/dL Glucose (74-99) mg/dL POC Glucose (mg/dL) 208 H (70-110) mg/dL Calcium (8.4-10.2) mg/dL ALT (4-49) U/L Alkaline Phosphatase (38-126) U/L Total Protein (6.3-8.2) g/dL Albumin (3.5-5.0) g/dL Microbiology - Last 24 Hours (Table) 05/22/24 07:38 Blood Culture - Preliminary Blood Assessment and Plan Plan: Acute exacerbation of chronic systolic congestive heart failure with ejection fraction 40 to 45% based on echocardiogram that was done on 06/07/2023. The patient has moderate LV systolic dysfunction and moderate to severe pulmonary hypertension and moderate degree of posteriorly directed mitral regurgitation and severe tricuspid regurgitation consistent with valvular heart disease. Estimated right ventricular systolic pressure was 57 mmHg. Bilateral pleural effusions/CHF/fluid overload MIld intermittent asthma Chronic stage III kidney disease, creatinine slightly elevated compared to yesterday due to diuresis. Diabetes mellitus, type II Diabetic neuropathy with +2 protein in the UA. Rule out underlying nephrosis Coronary artery disease with previous stents/coronary artery bypass grafting CHF with ischemic cardiomyopathy, EF of around 40 to 45%, moderate-severe pulm hypertension, mitral regurgitation and severe tricuspid regurgitation and pulmonary hypertension. Hyperlipidemia Hypertension Chronic lower extremity edema Scrotal edema Indeterminate hypoechoic lesion involving the right kidney measuring 1.3 cm in size that needs to be further worked up on outpatient basis with an MRI. The patient also has a simple cyst involving the left kidney measuring 1.9 cm in size. Recommendation: Continues to diurese with a negative fluid balance Patient currently on room air oxygen Continue IV Lasix 40 mg IV every [address] hours[address] catheter in place. And mo nitor renal function., Continue Coreg, Farxiga, Aldactone Continue hydralazine Continue insulin Lantus 28 units along with sliding scale coverage and 5 units of NovoLog with meals Antibiotic coverage essentially empiric at this point Monitor volume status Monitor electrolytes and renal function Will continue to follow. Time with Patient: Greater than 30
[2024-05-24 16:39] LABS: Glucose,Whole Blood 211 mg/dL (70-110)
[2024-05-24 19:49] LABS: Glucose,Whole Blood 203 mg/dL (70-110)
[2024-05-24] MEDS: INSULIN GLARGINE (LANTUS) 100 UNIT/ML SYR SQ SCH (21:04)
[2024-05-25] MEDS: ACETAMINOPHEN TAB 325 MG TAB PO PRN (00:48)
[2024-05-25 04:41] LABS: ALT 37 U/L (4-49); AST 18 U/L (17-59); African American GFR (CKD) 36 (>60 ml/min/1.73 sqM); Albumin 2.9 g/dL (3.5-5.0); Alkaline Phosphatase 172 U/L (38-126); Anion Gap 11 mmol/L; Blood Urea Nitrogen 41 mg/dL (9-20); Calcium 8.2 mg/dL (8.4-10.2); Carbon Dioxide 28 mmol/L (22-30); Chloride 96 mmol/L (98-107); Glucose 158 mg/dL (74-99); Non-African American GFR(CKD) 31 (>60 ml/min/1.73 sqM); Potassium 3.7 mmol/L (3.5-5.1); Sodium 135 mmol/L (137-145); Total Protein 5.5 g/dL (6.3-8.2)
[2024-05-25 05:00] LABS: Anisocytosis Slight; Basophils % (A) 0 %; Eosinophils # (A) 0.4 k/uL (0-0.7); Eosinophils % (A) 4 %; HCT 35.2 % (39.0-53.0); HGB 11.3 gm/dL (13.0-17.5); Hypochromasia Slight; Lymphocytes # (A) 0.7 k/uL (1.0-4.8); Lymphocytes % (A) 8 %; MCH 25.9 pg (25.0-35.0); MCV 80.7 fL (80.0-100.0); Mean Platelet Volume 9.4; Monocytes # (A) 0.8 k/uL (0-1.0); Monocytes % (A) 8 %; Neutrophils # (A) 7.2 k/uL (1.3-7.7); Neutrophils % (A) 78 %; Platelet Count 131 k/uL (150-450); RBC 4.37 m/uL (4.30-5.90); WBC 9.2 k/uL (3.8-10.6)
[2024-05-25 06:05] LABS: Glucose,Whole Blood 106 mg/dL (70-110)
--- NOTE | 2024-05-25 11:06 | P.PN ---
Subjective Patient is seen for follow-up for acute kidney injury and volume overload. Serum creatinine at 2.1 today 24-hour urine charted at 7.1 L Patient states the swelling is better. Zaroxolyn added yesterday. Objective - Vital Signs Vital signs: Vital Signs Temp 98.6 F 05/25/24 08:02 Pulse 61 05/25/24 08:02 Resp 18 05/25/24 08:05 BP 155/67 05/25/24 08:02 Pulse Ox 94 L 05/25/24 08:02 FiO2 Intake & Output 05/24/24 05/25/24 05/25/24 18:59 06:59 18:59 Intake Total 480 700 Output Total 2300 4850 Balance -1820 -4150 Intake: Oral 480 700 Output: Urine 2300 4850 Straight 2300 Other: Voiding Method Indwelling Catheter Indwelling Catheter Indwelling Catheter - Exam Patient is awake, comfortable, no acute distress. Examination of the heart S1 and S2 Examination of the lungs bilateral breath sounds are heard Abdomen is soft nontender Examination of lower extremities shows 2+ edema bilaterally with significant scrotal edema [employer] exam grossly intact. - Labs CBC & Chem 7: 05/25/24 03:36 05/25/24 03:36 Labs: Abnormal Lab Results - Last 24 Hours (Table) 05/24/24 05/24/24 05/24/24 Range/Units 11:27 16:37 19:48 Hgb (13.0-17.5) gm/dL Hct (39.0-53.0) % RDW (11.5-15.5) % Plt Count (150-450) k/uL Lymphocytes # (1.0-4.8) k/uL Sodium (137-145) mmol/L Chloride (98-107) mmol/L BUN (9-20) mg/dL Creatinine (0.66-1.25) mg/dL Glucose (74-99) mg/dL POC Glucose (mg/dL) 208 H 211 H 203 H (70-110) mg/dL Calcium (8.4-10.2) mg/dL Alkaline Phosphatase (38-126) U/L Total Protein (6.3-8.2) g/dL Albumin (3.5-5.0) g/dL 05/25/24 05/25/24 Range/Units 03:36 03:36 Hgb 11.3 L (13.0-17.5) gm/dL Hct 35.2 L (39.0-53.0) % RDW 16.0 H (11.5-15.5) % Plt Count 131 L (150-450) k/uL Lymphocytes # 0.7 L (1.0-4.8) k/uL Sodium 135 L (137-145) mmol/L Chloride 96 L (98-107) mmol/L BUN 41 H (9-20) mg/dL Creatinine 2.19 H (0.66-1.25) mg/dL Glucose 158 H (74-99) mg/dL POC Glucose (mg/dL) (70-110) mg/dL Calcium 8.2 L (8.4-10.2) mg/dL Alkaline Phosphatase 172 H (38-126) U/L Total Protein 5.5 L (6.3-8.2) g/dL Albumin 2.9 L (3.5-5.0) g/dL Microbiology - Last 24 Hours (Table) 05/22/24 07:38 Blood Culture - Preliminary Blood Assessment and Plan Assessment: 1. Acute kidney injury, cardiorenal. Currently maintained on IV diuretics, significant urine retention of 2.2 L and Canales catheter has been placed. Creatinine at 2.1 today 2. Hypertension partly volume sensitive, improving 3. Hypokalemia secondary to diuretics 4. Acute on chronic CHF with reduced ejection fraction of 40 to 45% 5. Volume overload 6. Chronic A-fib 7. Coronary artery disease status post coronary artery bypass surgery 8. Urine retention with 2.2 L obtained on catheter placement, currently with indwelling Canales catheter. Plan: Continue to diurese patient. Continue with IV Lasix and Zaroxolyn for 1 more day. Continue with Coreg and hydralazine Replace potassium Continue Aldactone with increased dose at 50 mg daily
[2024-05-25 11:51] LABS: Glucose,Whole Blood 150 mg/dL (70-110)
[2024-05-25 16:58] LABS: Glucose,Whole Blood 161 mg/dL (70-110)
--- NOTE | 2024-05-25 17:44 | P.PN ---
Subjective Progress Note Date: 05/25/24 HISTORY OF PRESENT ILLNESS: This is a 59-year-old male patient of rosita and Dr. Ga with past medical history of coronary artery disease status post 6 vessel CABG 2006 with MAE to LAD, saphenous venous graft to the PDA, saphenous venous graft to the obtuse marginal one, radial artery to the obtuse marginal branch 2 and saphenous venous graft to the obtuse marginal 3 followed by heart catheterization with PCI and stent of the saphenous venous graft to the RCA in 2015 at which time he pres ented with non-ST elevated myocardial infarction. Most recent cardiac catheterization was performed on 04/10/2022 which revealed severe triple-vessel coronary artery disease with a patent ramus intermediate, patent SVG to the OM, patent MAE to the LAD, and occluded saphenous vein graft to the RCA which is chronic from before. Medical therapy was advised at that time. History of hypertension, hypertensive cardiovascular disease with left ventricular hypertrophy, hyperlipidemia, ischemic cardiomyopathy, paroxysmal atrial fibrillation, currently on Eliquis, diabetes mellitus type 2 with diabetic polyneuropathy, hyperlipidemia, asthma, obstructive sleep apnea on CPAP, chronic low back pain, DVT in the past, patient was recently hospitalized at [facility] between 05/05/2024 05/17/2024 after he was admitted for acute hypoxemic respiratory failure due to acute systolic heart failure as well as acute bronchitis was seen in consultation by pulmonary as well as by cardiology he ended up having significant acute kidney injury due to cardiorenal syndrome as well as vasomotor nephropathy, he started to recover from that, patient was supposed to come to see him in the office this week, instead he showed up in the emergency department with increased swelling both lower extremities and in creased shortness of breath, as well as increased coughing, his chest x-ray showed evidence of cardiomegaly pulmonary vascular congestion as well as right lower lobe infiltrate could be an early gram-negative pneumonia, versus atelectasis, patient was started on IV diuretics, he was admitted to the hospital for evaluation by cardiology, nephrology, as well as pulmonary medicine. Patient has significant scrotal edema, underwent ultrasound of the scrotum that showed evidence of bilateral hydrocele, with left varicocele no evidence of torsion 05/23: Patient sitting up in bed in no apparent distress, he denies any chest pain, he is less short of breath, he continues to have a significant swelling in the abdominal wall along with both lower extremities, with pitting edema, diuresing very well through the Canales catheter, has been on Lasix 40 mg IV push every 12 hours along with spironolactone, will follow-up with the patient very closely, monitor his kidney function, patient also has been started on Zosyn 3.375 g piggyback every 8 hours for possible gram-negative pneumonia as well pulmonary is following as well physical therapy evaluation, continue to follow- up with the patient very closely continue to follow-up with the labs including CBC CMP magnesium over the next 24 hours 4/2: Patient continues to have significant edema in the abdominal wall as well as upper thighs and bilateral lower extremities, he has Canales catheter in place, he has scrotal edema, he has foreskin edema as well, he is complain of significant pain in the scrotal area, he has been started on pain management as well as nystatin powder to alleviate some of the skin infection, he was switched yesterday again to frusemide 40 mg IV push every 12 hours because of significant weight gain, he was started on spironolactone 50 mg once every day, Farxiga 5 mg once every day, lipid better today but not a whole lot, will switch the patient to inpatient at this point in time due to acute systolic heart failure. 4: Patient is sitting up in bed he continues to have significant edema in the abdominal wall, both lower extremities a bit better than yesterday, continues to have significant scrotal edema, he has a Canales catheter in place with significant for screening edema, his skin is splitting in the scrotal area, he has been getting nystatin powder as well, continue current pain management, continue Lasix 40 mg IV push every 12 hours, continue Farxiga 5 mg orally once every day, spironolactone 50 mg once every day, follow-up with the patient very closely, nephrology along with cardiology and pulmonary medicine is following, he has been responding very well to the Zosyn 3.375 g piggyback every 8 hours, will continue with that as well monitor the patient kidney function test very closely, as he is getting a bit worse than yesterday REVIEW OF SYSTEMS: Constitutional: No documented fever, no chills, no night sweats. No weight change. Positive for weakness, positive for fatigue, no lethargy. No daytime sleepiness. HEENT: No headache. No blurred vision or double vision, no loss of vision. No loss of Hearing, no ringing in the ears, no dizziness. No nasal drainage or congestion. No epistaxis. No sore throat. Lungs: positive for shortness of breath, occasional cough, minimal sputum production. no wheezing. Reports dyspnea with activity. Cardiovascular: no chest pain, positive for lower extremity edema. No palpitations. No paroxysmal nocturnal dyspnea. No orthopnea. positive for lightheadedness or dizziness. No syncopal episodes. Abdominal: Reports no abdominal pain. no nausea, vomiting. No diarrhea. No constipation. No bloody or tarry stools reports loss of appetite. Genitourinary: No dysuria, increased frequency, urgency. No urinary retention. Musculoskeletal: No myalgias. positive for muscle weakness, no gait dysfunction, frequent falls. No back pain. No neck pain. Integumentary: scabbed wounds to left caballero , no lesions. No rash or pruritus. No unusual bruising. No change in hair or nails. Neurologic: No aphasia. Minimal facial droop. No change in mentation. No head injury. No headache, minimal drift. Psychiatric: positive for depression. No anxiety. No mood swings. Endocrine: abnormal blood sugars. No weight change. PHYSICAL EXAMINATION: General: 59-year-old male laying down in mild distress. HEENT: Head is atraumatic, normocephalic, pupils were equal round reactive to light and recommendation, extraocular muscle movement were intact, sclera nonicteric, conjunctivae were pale, mucous membranes of the mouth are somewhat dry. Neck: Supple, no JVP, normal carotid upstroke bilaterally, no lymphadenopathy. Chest: Decreased breath sounds at the bases, few rhonchi no expirratory wheezes,, no chest wall tenderness, no intercostal retractions. Heart: First heart sound is normal, second heart sounds normal, irregularly irregular, there is systolic ejection murmur 2/6 located in the left sternal border. Abdomen: Soft, nontender, nondistended, positive bowel sounds, there is no hepatosplenomegaly positive for abdominal wall edema positive for scrotal edema. Extremities: There is +3 edema no calf tenderness DP +1 bilaterally, there is scrotal edema as well. Neurologic examination: Patient is awake alert and oriented X 3, cranial nerves II-12 appear grossly intact, muscle power were 4 out of 5 in upper extremities and 4 out of 5 in bilateral lower extremities, deep tendon reflexes normal bilaterally. Minimal right facial droop, and right leg weakness. ASSESSMENT AND PLAN: 1. Acute on chronic systolic heart failure . continue patient on furosemide 40 mg IV push daily, we will continue with Carvedilol 25 mg po bid , continue Farxiga 5 mg orally once every day, continue hydralazine 25 mg orally 3 times every day, monitor input annd output and daily weight, continue patient on spironolactone 50 mg once every day, continue metolazone 2.5 mg once every day, monitor input and output and daily weight, continue to be in negative balance, recheck CBC CMP tomorrow morning. 2. right lower lobe infiltrate likely gram-negative pneumonia start the patient on Zosyn 3.375 g piggyback every 8 hours, continue with that even though the procalcitonin level is very low since the patient was in the hospital we will continue for that for now 3. Acute kidney injury due to cardiorenal syndrome. Continue Lasix 40 mg IV push every 12 hours, monitor the patient input output and daily weight, Canales catheter is in. 4. Hypertension and hypertensive cardiovascular disease. Continue patient on Carvedilol 25 mg orally twice every day, continue with Hydralazine, orally 3 times every as well and monitor BP very closely. 5. Diabetes mellitus type 2. Continue patient on Lantus 26 units at bedtime along with NovoLog 5 units before each meal plus the sliding scale insulin. Continue Farxiga 5 mg orally once every day, check blood glucose level before each meal and at bedtime. 6. Coronary artery disease status post CABG 6 as well as PCI in the past. Continue patient on ASA 81 mg once every day, Carvedilol 25 mg orally twice every day, continue patient on atorvastatin 80 mg orally once every day, continue Zetia 10 mg orally once every day. 7. Hyperlipidemia. Continue patient on atorvastatin 80 mg once every day, continue Zetia 10 mg orally once every day, monitor lipid panel, keep LDL 55-70. 8. Diabetic polyneuropathy. Continue patient on gabapentin 300 mg orally 2 times every day. 9. Obstructive sleep apnea. Patient does have a CPAP at home. 10. Chronic systolic heart failure. Continue with Furosemide 40 mg IVP daily, Carvedilol 25 mg po bid and add Farxiga 5 mg po daily. 11. Paroxysmal atrial fibrillation . Continue patient on Coreg 25 mg orally twice every day, Eliquis 5 mg po bid. 12. Enlarged prostate with urinary retention. Continue Canales catheter, continue Flomax 0.4 mg once every day, will attempt to discontinue catheter in few days. 13. DVT prophylaxis. Continue Eliquis 5 mg orally twice every day. 14. GI prophylaxis. Continue Protonix 40 mg orally once every day. 15. History of CVA in the past recovered well will continue with Atorvastatin 80 mg po daily and Eliquis for life 16. We will follow-up with the patient Objective - Vital Signs Vital signs: Vital Signs Temp 99.4 F 05/25/24 16:10 Pulse 56 L 05/25/24 16:10 Resp 17 05/25/24 16:10 BP 129/71 05/25/24 16:10 Pulse Ox 91 L 05/25/24 16:10 FiO2 Intake & Output 05/24/24 05/25/24 05/25/24 18:59 06:59 18:59 Intake Total 480 700 Output Total 2300 4850 4300 Balance -1820 -4150 -4300 Intake: Oral 480 700 Output: Urine 2300 4850 4300 Straight 2300 Other: Voiding Method Indwelling Catheter Indwelling Catheter Indwelling Catheter - Labs CBC & Chem 7: 05/25/24 03:36 05/25/24 03:36 Labs: Abnormal Lab Results - Last 24 Hours (Table) 05/24/24 05/25/24 05/25/24 Range/Units 19:48 03:36 03:36 Hgb 11.3 L (13.0-17.5) gm/dL Hct 35.2 L (39.0-53.0) % RDW 16.0 H (11.5-15.5) % Plt Count 131 L (150-450) k/uL Lymphocytes # 0.7 L (1.0-4.8) k/uL Sodium 135 L (137-145) mmol/L Chloride 96 L (98-107) mmol/L BUN 41 H (9-20) mg/dL Creatinine 2.19 H (0.66-1.25) mg/dL Glucose 158 H (74-99) mg/dL POC Glucose (mg/dL) 203 H (70-110) mg/dL Calcium 8.2 L (8.4-10.2) mg/dL Alkaline Phosphatase 172 H (38-126) U/L Total Protein 5.5 L (6.3-8.2) g/dL Albumin 2.9 L (3.5-5.0) g/dL 05/25/24 05/25/24 Range/Units 11:50 16:57 Hgb (13.0-17.5) gm/dL Hct (39.0-53.0) % RDW (11.5-15.5) % Plt Count (150-450) k/uL Lymphocytes # (1.0-4.8) k/uL Sodium (137-145) mmol/L Chloride (98-107) mmol/L BUN (9-20) mg/dL Creatinine (0.66-1.25) mg/dL Glucose (74-99) mg/dL POC Glucose (mg/dL) 150 H 161 H (70-110) mg/dL Calcium (8.4-10.2) mg/dL Alkaline Phosphatase (38-126) U/L Total Protein (6.3-8.2) g/dL Albumin (3.5-5.0) g/dL Microbiology - Last 24 Hours (Table) 05/22/24 07:38 Blood Culture - Preliminary Blood
[2024-05-25] MEDS: TAMSULOSIN 0.4 MG CAP.ER.24H PO SCH (18:51)
--- NOTE | 2024-05-25 19:05 | P.PN ---
Subjective Progress Note Date: 05/25/24 This is a 59-year-old male patient with a history of obstructive sleep apnea ma intained on CPAP, mild intermittent chronic bronchial asthma, lifelong non- smoker, hypertension, hyperlipidemia, diabetes mellitus, diabetic neuropathy, chronic kidney disease stage III, coronary artery disease with previous stents and subsequent bypass grafting surgery. He presented here back on May 05, 2024 with complaints of shortness of breath, he was treated and the patient was discharged home on 05/17/2024 discharged after being treated for acute on top of chronic systolic heart failure and the patient also encountered an acute kidney injury due to cardiorenal syndrome related to his CHF. The patient was discharged home on Lasix 40 mg p.o. twice a day, and he is also maintained on C oreg 25 mg p.o. twice a day, Farxiga 10 mg p.o. daily, hydralazine 25 mg p.o. 3 times daily. He is on Lantus insulin in addition to metformin for diabetes mellitus and he also takes a combination of Lipitor and Zetia for chronic hyperlipidemia. He is on anticoagulation with Eliquis regarding paroxysmal atrial fibrillation. His current rhythm remains sinus. Few days following his discharge, the patient became again progressively more short of breath. There is worsening in lower extremity edema. There was also increase in scrotal edema. Based on that, the patient presented to the hospital and the patient was admitted for acute decompensated heart failure. The white cell count of 12.1, hemoglobin 12 and a platelet count is 136. BUN is 37 with a creatinine of 1.36 and a sodium level at 135 with a potassium level is at 3. Blood sugars at 256. UA is showing +2 protein plus for glucose and there is a possibility of diabetic nephropathy/nephrotic syndrome. proBNP level is 13,000. Thyroid function test normal. LFTs show mild elevation of the alkaline phosphatase, ALT is at 83 with an AST of 42. Magnesium is at 1.8. Coagulation profile shows an INR of 1.3 with a PT of 13.6 and a PTT of 26. The patient remains on room air oxygen. Currently is on Lasix 40 mg IV every 12 hours. Rest of the home medication resumed. He is also on Aldactone 25 mg p.o. daily. He was started on empiric antibiotic coverage with IV Zosyn. 05/23/2024, slightly improved in terms of volume status. Continues to have excessive scrotal edema lower extremity edema. Still on IV Lasix 40 mg every 24 hours. Fluid balance is negative. The creatinine currently is up to 1.9 with a BUN of 39. Sodium is at 137, potassium level is at 3.4. White cell count of 10.7. The patient remains on room air oxygen. No significant shortness of breath. No fever chills or night sweats. Remains on Aldactone. Remains on Lantus insulin 28 units along with 5 units with meals. Rest of the medications are essentially unchanged. 05/24/2024, the patient is being seen for a follow-up.. Continues to diurese and the patient remains on Lasix 40 mg IV every 12 hours. Fluid balance remains negative and the patient has been in -2.8 L negative fluid balance and the patient is producing additional 1 L since earlier this morning. Creatinine remained stable at 1.9. BUN is at 39. Sodium levels at 139, the white cell count of 3.7 with a hemoglobin of 11.1. A repeat chest x-ray was done today and shows similar CHF findings with pulm vascular congestion. Ultrasound abdomen was also done yesterday and it showed no significant ascites. Continues to have scrotal edema. Remains on room air oxygen. No other significant events overnight. 05/25/2024, patient remains on room air oxygen. Continues to complain of significant edema specially lower extremity and scrotal area. However, the patient continues to produce excellent urine output while being on IV Lasix. He is at least 5 L and a negative fluid balance over the past 24 hours. His electrolytes are being monitored closely. He remains on Lasix 40 mg IV every 12 hours. He is also on Aldactone 50 mg on a daily basis. No other new complaints otherwise for now. Blood work shows a white cell count of 9.2, hemoglobin of 11 and a platelet count of 131. BUN is 41 with a creatinine of 2.1 and a sodium is at 135 and a potassium level is 3.7. Objective - Vital Signs Vital signs: Vital Signs Temp 98.6 F 05/25/24 08:02 Pulse 61 05/25/24 08:02 Resp 18 05/25/24 08:05 BP 155/67 05/25/24 08:02 Pulse Ox 94 L 05/25/24 08:02 FiO2 Intake & Output 04/0205/25/24 05/25/24 18:59 06:59 18:59 Intake Total 480 700 Output Total 2300 4850 Balance -1820 -4150 Intake: Oral 480 700 Output: Urine 2300 4850 Straight 2300 Other: Voiding Method Indwelling Catheter Indwelling Catheter Indwelling Catheter - Exam GENERAL EXAM: Revealed 59-year-old white male in no distress, on room air. HEAD: Normocephalic. EYES: Normal reaction of pupils, equal size. NOSE: Clear with pink turbinates. THROAT: No erythema or exudates. NECK: No masses, no JVD. CHEST: No chest wall deformity. LUNGS: Clear throughout no crackles rhonchi or wheezes CVS: S1 and S2 normal with no audible murmur, regular rhythm. ABDOMEN: No hepatosplenomegaly, normal bowel sounds, no guarding or rigidity. SKIN: No rashes CENTRAL NERVOUS SYSTEM: No focal deficits, tone is normal in all 4 extremities. EXTREMITIES: There is 1+ bipedal. No clubbing, no cyanosis. Peripheral pulses are intact. Psychiatric: Depressed mood flat affect normal mental status. - Labs CBC & Chem 7: 05/25/24 03:36 05/25/24 03:36 Labs: Abnormal Lab Results - Last 24 Hours (Table) 05/24/24 05/24/24 05/25/24 Range/Units 16:37 19:48 03:36 Hgb 11.3 L (13.0-17.5) gm/dL Hct 35.2 L (39.0-53.0) % RDW 16.0 H (11.5-15.5) % Plt Count 131 L (150-450) k/uL Lymphocytes # 0.7 L (1.0-4.8) k/uL Sodium (137-145) mmol/L Chloride (98-107) mmol/L BUN (9-20) mg/dL Creatinine (0.66-1.25) mg/dL Glucose (74-99) mg/dL POC Glucose (mg/dL) 211 H 203 H (70-110) mg/dL Calcium (8.4-10.2) mg/dL Alkaline Phosphatase (38-126) U/L Total Protein (6.3-8.2) g/dL Albumin (3.5-5.0) g/dL 05/25/24 05/25/24 Range/Units 03:36 11:50 Hgb (13.0-17.5) gm/dL Hct (39.0-53.0) % RDW (11.5-15.5) % Plt Count (150-450) k/uL Lymphocytes # (1.0-4.8) k/uL Sodium 135 L (137-145) mmol/L Chloride 96 L (98-107) mmol/L BUN 41 H (9-20) mg/dL Creatinine 2.19 H (0.66-1.25) mg/dL Glucose 158 H (74-99) mg/dL POC Glucose (mg/dL) 150 H (70-110) mg/dL Calcium 8.2 L (8.4-10.2) mg/dL Alkaline Phosphatase 172 H (38-126) U/L Total Protein 5.5 L (6.3-8.2) g/dL Albumin 2.9 L (3.5-5.0) g/dL Microbiology - Last 24 Hours (Table) 05/22/24 07:38 Blood Culture - Preliminary Blood Assessment and Plan Plan: Acute exacerbation of chronic systolic congestive heart failure with ejection fraction 40 to 45% based on echocardiogram that was done on 06/07/2023. The patient has moderate LV systolic dysfunction and moderate to severe pulmonary hypertension and moderate degree of posteriorly directed mitral regurgitation and severe tricuspid regurgitation consistent with valvular heart disease. Estimated right ventricular systolic pressure was 57 mmHg. Bilateral pleural effusions/CHF/fluid overload MIld intermittent asthma Chronic stage III kidney disease, creatinine slightly elevated compared to yesterday due to diuresis. Creatinine is being monitored closely. There is some elevation in creatinine related to diuresis. Diabetes mellitus, type II Diabetic neuropathy with +2 protein in the UA. Rule out underlying nephrosis Coronary artery disease with previous stents/coronary artery bypass grafting CHF with ischemic cardiomyopathy, EF of around 40 to 45%, moderate-severe pulm hypertension, mitral regurgitation and severe tricuspid regurgitation and pulmonary hypertension. Hyperlipidemia Hypertension Chronic lower extremity edema Scrotal edema Indeterminate hypoechoic lesion involving the right kidney measuring 1.3 cm in size that needs to be further worked up on outpatient basis with an MRI. The patient also has a simple cyst involving the left kidney measuring 1.9 cm in size. Recommendation: The plan is to continue diuresis. The patient be kept on Lasix at this current dose Continues to diurese with a negative fluid balance Patient currently on room air oxygen Continue IV Lasix 40 mg IV every 12 hours. Canales catheter in place. And monitor renal function., Continue Coreg, Farxiga, Aldactone Continue hydralazine Continue insulin Lantus 26 units along with sliding scale coverage and 5 units of NovoLog with meals Antibiotic coverage essentially empiric at this point Monitor volume status Monitor electrolytes and renal function Will continue to follow. Time with Patient: Greater than 30
[2024-05-25 20:33] LABS: Glucose,Whole Blood 200 mg/dL (70-110)
[2024-05-26 04:51] LABS: Basophils % (A) 0 %; Eosinophils # (A) 0.5 k/uL (0-0.7); Eosinophils % (A) 5 %; HGB 12.4 gm/dL (13.0-17.5); Hypochromasia Slight; Lymphocytes # (A) 0.7 k/uL (1.0-4.8); Lymphocytes % (A) 7 %; MCH 25.6 pg (25.0-35.0); MCV 80.2 fL (80.0-100.0); Mean Platelet Volume 9.1; Monocytes # (A) 0.8 k/uL (0-1.0); Monocytes % (A) 8 %; Neutrophils # (A) 7.9 k/uL (1.3-7.7); Neutrophils % (A) 78 %; Platelet Count 154 k/uL (150-450); RBC 4.86 m/uL (4.30-5.90); RDW 15.6 % (11.5-15.5); WBC 10.2 k/uL (3.8-10.6)
[2024-05-26 05:41] LABS: ALT 34 U/L (4-49); AST 21 U/L (17-59); African American GFR (CKD) 35 (>60 ml/min/1.73 sqM); Albumin 3.1 g/dL (3.5-5.0); Alkaline Phosphatase 185 U/L (38-126); Anion Gap 12 mmol/L; Blood Urea Nitrogen 46 mg/dL (9-20); Calcium 8.5 mg/dL (8.4-10.2); Carbon Dioxide 29 mmol/L (22-30); Chloride 94 mmol/L (98-107); Glucose 190 mg/dL (74-99); Non-African American GFR(CKD) 30 (>60 ml/min/1.73 sqM); Sodium 135 mmol/L (137-145); Total Bilirubin 1.3 mg/dL (0.2-1.3)
[2024-05-26 06:59] LABS: Glucose,Whole Blood 218 mg/dL (70-110)
[2024-05-26 11:56] LABS: Glucose,Whole Blood 263 mg/dL (70-110)
--- NOTE | 2024-05-26 13:23 | P.PN ---
Subjective Progress Note Date: 05/26/24 This is a 59-year-old male patient with a history of obstructive sleep apnea ma intained on CPAP, mild intermittent chronic bronchial asthma, lifelong non- smoker, hypertension, hyperlipidemia, diabetes mellitus, diabetic neuropathy, chronic kidney disease stage III, coronary artery disease with previous stents and subsequent bypass grafting surgery. He presented here back on May 05, 2024 with complaints of shortness of breath, he was treated and the patient was discharged home on 05/17/2024 discharged after being treated for acute on top of chronic systolic heart failure and the patient also encountered an acute kidney injury due to cardiorenal syndrome related to his CHF. The patient was discharged home on Lasix 40 mg p.o. twice a day, and he is also maintained on C oreg 25 mg p.o. twice a day, Farxiga 10 mg p.o. daily, hydralazine 25 mg p.o. 3 times daily. He is on Lantus insulin in addition to metformin for diabetes mellitus and he also takes a combination of Lipitor and Zetia for chronic hyperlipidemia. He is on anticoagulation with Eliquis regarding paroxysmal atrial fibrillation. His current rhythm remains sinus. Few days following his discharge, the patient became again progressively more short of breath. There is worsening in lower extremity edema. There was also increase in scrotal edema. Based on that, the patient presented to the hospital and the patient was admitted for acute decompensated heart failure. The white cell count of 12.1, hemoglobin 12 and a platelet count is 136. BUN is 37 with a creatinine of 1.36 and a sodium level at 135 with a potassium level is at 3. Blood sugars at 256. UA is showing +2 protein plus for glucose and there is a possibility of diabetic nephropathy/nephrotic syndrome. proBNP level is 13,000. Thyroid function test normal. LFTs show mild elevation of the alkaline phosphatase, ALT is at 83 with an AST of 42. Magnesium is at 1.8. Coagulation profile shows an INR of 1.3 with a PT of 13.6 and a PTT of 26. The patient remains on room air oxygen. Currently is on Lasix 40 mg IV every 12 hours. Rest of the home medication resumed. He is also on Aldactone 25 mg p.o. daily. He was started on empiric antibiotic coverage with IV Zosyn. 05/23/2024, slightly improved in terms of volume status. Continues to have excessive scrotal edema lower extremity edema. Still on IV Lasix 40 mg every 24 hours. Fluid balance is negative. The creatinine currently is up to 1.9 with a BUN of 39. Sodium is at 137, potassium level is at 3.4. White cell count of 10.7. The patient remains on room air oxygen. No significant shortness of breath. No fever chills or night sweats. Remains on Aldactone. Remains on Lantus insulin 28 units along with 5 units with meals. Rest of the medications are essentially unchanged. 05/24/2024, the patient is being seen for a follow-up.. Continues to diurese and the patient remains on Lasix 40 mg IV every 12 hours. Fluid balance remains negative and the patient has been in -2.8 L negative fluid balance and the patient is producing additional 1 L since earlier this morning. Creatinine remained stable at 1.9. BUN is at 39. Sodium levels at 139, the white cell count of 3.7 with a hemoglobin of 11.1. A repeat chest x-ray was done today and shows similar CHF findings with pulm vascular congestion. Ultrasound abdomen was also done yesterday and it showed no significant ascites. Continues to have scrotal edema. Remains on room air oxygen. No other significant events overnight. 05/25/2024, patient remains on room air oxygen. Continues to complain of significant edema specially lower extremity and scrotal area. However, the patient continues to produce excellent urine output while being on IV Lasix. He is at least 5 L and a negative fluid balance over the past 24 hours. His electrolytes are being monitored closely. He remains on Lasix 40 mg IV every 12 hours. He is also on Aldactone 50 mg on a daily basis. No other new complaints otherwise for now. Blood work shows a white cell count of 9.2, hemoglobin of 11 and a platelet count of 131. BUN is 41 with a creatinine of 2.1 and a sodium is at 135 and a potassium level is 3.7. 05/26/2024, the patient remains on room air oxygen. Continues to diurese with IV Lasix. He is running a low-grade fever of 100.8. He is on room air oxygen with a pulse ox of 95%. He is 7 L negative over the past 24 hours. Edema is improving and the patient has lost approximately 6 kg over the past few days. The white cell count is at 10 hemoglobin 12.4 and platelet count of 154. BUN 46 with a creatinine of 2.2. Sodium levels at 135. Remains on IV Zosyn. Remains on Aldactone 50 mg p.o. daily. Remains on Zaroxolyn 2.5 mg p.o. daily. Remains on IV Lasix 40 mg IV every 12 hours. Rest of the medications are essentially unchanged. Cultures were negative. Objective - Vital Signs Vital signs: Vital Signs Temp 100.8 F H 05/26/24 07:09 Pulse 71 05/26/24 07:09 Resp 18 05/26/24 07:09 BP 133/80 05/26/24 07:09 Pulse Ox 95 05/26/24 07:09 FiO2 Intake & Output 05/25/24 05/26/24 05/26/24 18:59 06:59 18:59 Intake Total 960 Output Total 4300 4150 750 Balance -4300 -3190 -750 Weight 82.024 kg Intake: Oral 960 Output: Urine 4300 4150 750 Uretheral (Canales) 750 Other: Voiding Method Indwelling Catheter Indwelling Catheter Indwelling Catheter - Exam GENERAL EXAM: Revealed 59-year-old white male in no distress, on room air. HEAD: Normocephalic. EYES: Normal reaction of pupils, equal size. NOSE: Clear with pink turbinates. THROAT: No erythema or exudates. NECK: No masses, no JVD. CHEST: No chest wall deformity. LUNGS: Clear throughout no crackles rhonchi or wheezes CVS: S1 and S2 normal with no audible murmur, regular rhythm. ABDOMEN: No hepatosplenomegaly, normal bowel sounds, no guarding or rigidity. SKIN: No rashes CENTRAL NERVOUS SYSTEM: No focal deficits, tone is normal in all 4 extremities. EXTREMITIES: There is 1+ bipedal. No clubbing, no cyanosis. Peripheral pulses are intact. Psychiatric: Depressed mood flat affect normal mental status. - Labs CBC & Chem 7: 05/26/24 04:17 05/26/24 04:17 Labs: Abnormal Lab Results - Last 24 Hours (Table) 05/25/24 05/25/24 05/26/24 Range/Units 16:57 20:32 04:17 Hgb 12.4 L (13.0-17.5) gm/dL RDW 15.6 H (11.5-15.5) % Neutrophils # 7.9 H (1.3-7.7) k/uL Lymphocytes # 0.7 L (1.0-4.8) k/uL Sodium (137-145) mmol/L Chloride (98-107) mmol/L BUN (9-20) mg/dL Creatinine (0.66-1.25) mg/dL Glucose (74-99) mg/dL POC Glucose (mg/dL) 161 H 200 H (70-110) mg/dL Alkaline Phosphatase (38-126) U/L Total Protein (6.3-8.2) g/dL Albumin (3.5-5.0) g/dL 05/26/24 05/26/24 05/26/24 Range/Units 04:17 06:56 11:55 Hgb (13.0-17.5) gm/dL RDW (11.5-15.5) % Neutrophils # (1.3-7.7) k/uL Lymphocytes # (1.0-4.8) k/uL Sodium 135 L (137-145) mmol/L Chloride 94 L (98-107) mmol/L BUN 46 H (9-20) mg/dL Creatinine 2.26 H (0.66-1.25) mg/dL Glucose 190 H (74-99) mg/dL POC Glucose (mg/dL) 218 H 263 H (70-110) mg/dL Alkaline Phosphatase 185 H (38-126) U/L Total Protein 6.0 L (6.3-8.2) g/dL Albumin 3.1 L (3.5-5.0) g/dL Microbiology - Last 24 Hours (Table) 05/22/24 07:38 Blood Culture - Preliminary Blood Assessment and Plan Plan: Acute exacerbation of chronic systolic congestive heart failure with ejection fraction 40 to 45% based on echocardiogram that was done on 06/07/2023. The patient has moderate LV systolic dysfunction and moderate to severe pulmonary hypertension and moderate degree of posteriorly directed mitral regurgitation and severe tricuspid regurgitation consistent with valvular heart disease. Estimated right ventricular systolic pressure was 57 mmHg. Maintained on diuresis with a combination of IV Lasix, oral Zaroxolyn, oral Aldactone. The patient is also on Coreg. Low-grade fever, still on IV Zosyn Bilateral pleural effusions/CHF/fluid overload MIld intermittent asthma Chronic stage III kidney disease, creatinine slightly elevated compared to yesterday due to diuresis. Creatinine is being monitored closely. There is some elevation in creatinine related to diuresis. Diabetes mellitus, type II Diabetic neuropathy with +2 protein in the UA. Rule out underlying nephrosis Coronary artery disease with previous stents/coronary artery bypass grafting CHF with ischemic cardiomyopathy, EF of around 40 to 45%, moderate-severe pulm hypertension, mitral regurgitation and severe tricuspid regurgitation and pulmonary hypertension. Hyperlipidemia Hypertension Chronic lower extremity edema, improving and the patient is a negative fluid balance of at least 7 L over the past 24 hours. Scrotal edema Indeterminate hypoechoic lesion involving the right kidney measuring 1.3 cm in size that needs to be further worked up on outpatient basis with an MRI. The patient also has a simple cyst involving the left kidney measuring 1.9 cm in size. Recommendation: The plan is to continue diuresis. Diuretics to be adjusted by nephrology. Continues to be in a negative fluid balance Patient currently on room air oxygen Continue IV Lasix 40 mg IV every 12 hours. Oral Zaroxolyn. Oral Aldactone. Monitor fever pattern IV Zosyn Continue Coreg, Farxiga, Aldactone Continue hydralazine Continue insulin Lantus 26 units along with sliding scale coverage and 5 units of NovoLog with meals Monitor volume status Monitor electrolytes and renal function Will continue to follow.
--- NOTE | 2024-05-26 14:46 | P.PN ---
Subjective Patient is seen for follow-up for acute kidney injury and volume overload. Serum creatinine at 2.2 today 24-hour urine charted at 8.4 L Patient states the swelling is better. Zaroxolyn added 2 days ago. Patient is responding well. Objective - Vital Signs Vital signs: Vital Signs Temp 100.8 F H 05/26/24 07:09 Pulse 71 05/26/24 07:09 Resp 18 05/26/24 07:09 BP 133/80 05/26/24 07:09 Pulse Ox 95 05/26/24 07:09 FiO2 Intake & Output 05/25/24 05/26/24 05/26/24 18:59 06:59 18:59 Intake Total 960 Output Total 4300 4150 750 Balance -4300 -3190 -750 Weight 82.024 kg Intake: Oral 960 Output: Urine 4300 4150 750 Uretheral (Canales) 750 Other: Voiding Method Indwelling Catheter Indwelling Catheter Indwelling Catheter - Exam Patient is awake, comfortable, no acute distress. Examination of the heart S1 and S2 Examination of the lungs bilateral breath sounds are heard Abdomen is soft nontender Examination of lower extremities shows 2+ edema bilaterally with significant scrotal edema [employer] exam grossly intact. - Labs CBC & Chem 7: 05/26/24 04:17 05/26/24 04:17 Labs: Abnormal Lab Results - Last 24 Hours (Table) 05/25/24 05/25/24 05/26/24 Range/Units 16:57 20:32 04:17 Hgb 12.4 L (13.0-17.5) gm/dL RDW 15.6 H (11.5-15.5) % Neutrophils # 7.9 H (1.3-7.7) k/uL Lymphocytes # 0.7 L (1.0-4.8) k/uL Sodium (137-145) mmol/L Chloride (98-107) mmol/L BUN (9-20) mg/dL Creatinine (0.66-1.25) mg/dL Glucose (74-99) mg/dL POC Glucose (mg/dL) 161 H 200 H (70-110) mg/dL Alkaline Phosphatase (38-126) U/L Total Protein (6.3-8.2) g/dL Albumin (3.5-5.0) g/dL 05/26/24 05/26/2405/26/25 Range/Units 04:17 06:56 11:55 Hgb (13.0-17.5) gm/dL RDW (11.5-15.5) % Neutrophils # (1.3-7.7) k/uL Lymphocytes # (1.0-4.8) k/uL Sodium 135 L (137-145) mmol/L Chloride 94 L (98-107) mmol/L BUN 46 H (9-20) mg/dL Creatinine 2.26 H (0.66-1.25) mg/dL Glucose 190 H (74-99) mg/dL POC Glucose (mg/dL) 218 H 263 H (70-110) mg/dL Alkaline Phosphatase 185 H (38-126) U/L Total Protein 6.0 L (6.3-8.2) g/dL Albumin 3.1 L (3.5-5.0) g/dL Microbiology - Last 24 Hours (Table) 05/22/24 07:38 Blood Culture - Preliminary Blood Assessment and Plan Assessment: 1. Acute kidney injury, cardiorenal. Currently maintained on IV diuretics, significant urine retention of 2.2 L and Canales catheter has been placed. Creatinine at 2.2 today 2. Hypertension partly volume sensitive, improving 3. Hypokalemia secondary to diuretics 4. Acute on chronic CHF with reduced ejection fraction of 40 to 45% 5. Volume overload 6. Chronic A-fib 7. Coronary artery disease status post coronary artery bypass surgery 8. Urine retention with 2.2 L obtained on catheter placement, currently with indwelling Canales catheter. Plan: Continue to diurese patient. Continue with IV Lasix and Zaroxolyn. Continue with Coreg and hydralazine Continue Aldactone with increased dose at 50 mg daily
--- NOTE | 2024-05-26 15:04 | P.PN ---
Subjective Progress Note Date: 05/26/24 HISTORY OF PRESENT ILLNESS: This is a 59-year-old male patient of rosita and Dr. Ga with past medical history of coronary artery disease status post 6 vessel CABG 2006 with MAE to LAD, saphenous venous graft to the PDA, saphenous venous graft to the obtuse marginal one, radial artery to the obtuse marginal branch 2 and saphenous venous graft to the obtuse marginal 3 followed by heart catheterization with PCI and stent of the saphenous venous graft to the RCA in 2015 at which time he pres ented with non-ST elevated myocardial infarction. Most recent cardiac catheterization was performed on 04/10/2022 which revealed severe triple-vessel coronary artery disease with a patent ramus intermediate, patent SVG to the OM, patent MAE to the LAD, and occluded saphenous vein graft to the RCA which is chronic from before. Medical therapy was advised at that time. History of hypertension, hypertensive cardiovascular disease with left ventricular hypertrophy, hyperlipidemia, ischemic cardiomyopathy, paroxysmal atrial fibrillation, currently on Eliquis, diabetes mellitus type 2 with diabetic polyneuropathy, hyperlipidemia, asthma, obstructive sleep apnea on CPAP, chronic low back pain, DVT in the past, patient was recently hospitalized at [facility] between 05/05/2024 05/17/2024 after he was admitted for acute hypoxemic respiratory failure due to acute systolic heart failure as well as acute bronchitis was seen in consultation by pulmonary as well as by cardiology he ended up having significant acute kidney injury due to cardiorenal syndrome as well as vasomotor nephropathy, he started to recover from that, patient was supposed to come to see him in the office this week, instead he showed up in the emergency department with increased swelling both lower extremities and in creased shortness of breath, as well as increased coughing, his chest x-ray showed evidence of cardiomegaly pulmonary vascular congestion as well as right lower lobe infiltrate could be an early gram-negative pneumonia, versus atelectasis, patient was started on IV diuretics, he was admitted to the hospital for evaluation by cardiology, nephrology, as well as pulmonary medicine. Patient has significant scrotal edema, underwent ultrasound of the scrotum that showed evidence of bilateral hydrocele, with left varicocele no evidence of torsion 05/23: Patient sitting up in bed in no apparent distress, he denies any chest pain, he is less short of breath, he continues to have a significant swelling in the abdominal wall along with both lower extremities, with pitting edema, diuresing very well through the Canales catheter, has been on Lasix 40 mg IV push every 12 hours along with spironolactone, will follow-up with the patient very closely, monitor his kidney function, patient also has been started on Zosyn 3.375 g piggyback every 8 hours for possible gram-negative pneumonia as well pulmonary is following as well physical therapy evaluation, continue to follow- up with the patient very closely continue to follow-up with the labs including CBC CMP magnesium over the next 24 hours 05/24: Patient continues to have significant edema in the abdominal wall as well as upper thighs and bilateral lower extremities, he has Canales catheter in place, he has scrotal edema, he has foreskin edema as well, he is complain of significant pain in the scrotal area, he has been started on pain management as well as nystatin powder to alleviate some of the skin infection, he was switched yesterday again to frusemide 40 mg IV push every 12 hours because of significant weight gain, he was started on spironolactone 50 mg once every day, Farxiga 5 mg once every day, lipid better today but not a whole lot, will switch the patient to inpatient at this point in time due to acute systolic heart failure. 05/25: Patient is sitting up in bed he continues to have significant edema in the abdominal wall, both lower extremities a bit better than yesterday, continues to have significant scrotal edema, he has a Canales catheter in place with significant for screening edema, his skin is splitting in the scrotal area, he has been getting nystatin powder as well, continue current pain management, continue Lasix 40 mg IV push every 12 hours, continue Farxiga 5 mg orally once every day, spironolactone 50 mg once every day, follow-up with the patient very closely, nephrology along with cardiology and pulmonary medicine is following, he has been responding very well to the Zosyn 3.375 g piggyback every 8 hours, will continue with that as well monitor the patient kidney function test very closely, as he is getting a bit worse than yesterday 05/26: Patient is sitting up in bed is feeling a bit better today, he swelling is much better than yesterday, he continues to have +1-2 edema in both lower extremities, continue to have significant swelling in the scrotal area, better than yesterday as well, better weeping in both lower extremities in his groin area, has been on Zosyn along with Lasix 40 mg IV push every 12 hours, continue patient on Zaroxolyn 2.5 mg once every day, continue monitor input and output and daily weight, monitor the patient's electrolytes, monitor the BUN and creatinine as well, nephrology has been following, along with pulmonary medicine, will follow-up with the patient very closely. REVIEW OF SYSTEMS: Constitutional: No documented fever, no chills, no night sweats. No weight change. Positive for weakness, positive for fatigue, no lethargy. No daytime sleepiness. HEENT: No headache. No blurred vision or double vision, no loss of vision. No loss of Hearing, no ringing in the ears, no dizziness. No nasal drainage or congestion. No epistaxis. No sore throat. Lungs: positive for shortness of breath, occasional cough, minimal sputum production. no wheezing. Reports dyspnea with activity. Cardiovascular: no chest pain, positive for lower extremity edema. No palpitations. No paroxysmal nocturnal dyspnea. No orthopnea. positive for lightheadedness or dizziness. No syncopal episodes. Abdominal: Reports no abdominal pain. no nausea, vomiting. No diarrhea. No constipation. No bloody or tarry stools reports loss of appetite. Genitourinary: No dysuria, increased frequency, urgency. No urinary retention. Musculoskeletal: No myalgias. positive for muscle weakness, no gait dysfunction, frequent falls. No back pain. No neck pain. Integumentary: scabbed wounds to left caballero , no lesions. No rash or pruritus. No unusual bruising. No change in hair or nails. Neurologic: No aphasia. Minimal facial droop. No change in mentation. No head in jury. No headache, minimal drift. Psychiatric: positive for depression. No anxiety. No mood swings. Endocrine: abnormal blood sugars. No weight change. PHYSICAL EXAMINATION: General: 59-year-old male laying down in mild distress. HEENT: Head is atraumatic, normocephalic, pupils were equal round reactive to light and recommendation, extraocular muscle movement were intact, sclera nonicteric, conjunctivae were pale, mucous membranes of the mouth are somewhat dry. Neck: Supple, no JVP, normal carotid upstroke bilaterally, no lymphadenopathy. Chest: Decreased breath sounds at the bases, few rhonchi no expirratory wheezes,, no chest wall tenderness, no intercostal retractions. Heart: First heart sound is normal, second heart sounds normal, irregularly irregular, there is systolic ejection murmur 2/6 located in the left sternal border. Abdomen: Soft, nontender, nondistended, positive bowel sounds, there is no hepatosplenomegaly positive for abdominal wall edema positive for scrotal edema. Extremities: There is +3 edema no calf tenderness DP +1 bilaterally, there is scrotal edema as well. Neurologic examination: Patient is awake alert and oriented X 3, cranial nerves II-12 appear grossly intact, muscle power were 4 out of 5 in upper extremities and 4 out of 5 in bilateral lower extremities, deep tendon reflexes normal bilaterally. Minimal right facial droop, and right leg weakness. ASSESSMENT AND PLAN: 1. Acute on chronic systolic heart failure . continue patient on furosemide 40 mg IV push daily, we will continue with Carvedilol 25 mg po bid , continue Farxiga 5 mg orally once every day, continue hydralazine 25 mg orally 3 times every day, monitor input annd output and daily weight, continue patient on spironolactone 50 mg once every day, continue metolazone 2.5 mg once every day, monitor input and output and daily weight, continue to be in negative balance, recheck CBC CMP tomorrow morning. 2. right lower lobe infiltrate likely gram-negative pneumonia start the patient on Zosyn 3.375 g piggyback every 8 hours, continue with that even though the procalcitonin level is very low since the patient was in the hospital we will continue for that for now 3. Acute kidney injury due to cardiorenal syndrome. Continue Lasix 40 mg IV push every 12 hours, monitor the patient input output and daily weight, Canales catheter is in. 4. Hypertension and hypertensive cardiovascular disease. Continue patient on Carvedilol 25 mg orally twice every day, continue with Hydralazine, orally 3 times every as well and monitor BP very closely. 5. Diabetes mellitus type 2. Continue patient on Lantus 26 units at bedtime along with NovoLog 5 units before each meal plus the sliding scale insulin. Continue Farxiga 5 mg orally once every day, check blood glucose level before each meal and at bedtime. 6. Coronary artery disease status post CABG 6 as well as PCI in the past. Continue patient on ASA 81 mg once every day, Carvedilol 25 mg orally twice every day, continue patient on atorvastatin 80 mg orally once every day, continue Zetia 10 mg orally once every day. 7. Hyperlipidemia. Continue patient on atorvastatin 80 mg once every day, continue Zetia 10 mg orally once every day, monitor lipid panel, keep LDL 55-70. 8. Diabetic polyneuropathy. Continue patient on gabapentin 300 mg orally 2 times every day. 9. Obstructive sleep apnea. Patient does have a CPAP at home. 10. Chronic systolic heart failure. Continue with Furosemide 40 mg IVP daily, Carvedilol 25 mg po bid and add Farxiga 5 mg po daily. 11. Paroxysmal atrial fibrillation . Continue patient on Coreg 25 mg orally twice every day, Eliquis 5 mg po bid. 12. Enlarged prostate with urinary retention. Continue Canales catheter, continue Flomax 0.4 mg once every day, will attempt to discontinue catheter in few days. 13. DVT prophylaxis. Continue Eliquis 5 mg orally twice every day. 14. GI prophylaxis. Continue Protonix 40 mg orally once every day. 15. History of CVA in the past recovered well will continue with Atorvastatin 80 mg po daily and Eliquis for life 16. We will follow-up with the patient Objective - Vital Signs Vital signs: Vital Signs Temp 100.8 F H 05/26/24 07:09 Pulse 71 05/26/24 07:09 Resp 18 05/26/24 07:09 BP 133/80 05/26/24 07:09 Pulse Ox 95 05/26/24 07:09 FiO2 Intake & Output 05/25/24 05/26/24 05/26/24 18:59 06:59 18:59 Intake Total 960 Output Total 4300 4150 750 Balance -4300 -3190 -750 Weight 82.024 kg Intake: Oral 960 Output: Urine 4300 4150 750 Uretheral (Canales) 750 Other: Voiding Method Indwelling Catheter Indwelling Catheter Indwelling Catheter - Labs CBC & Chem 7: 05/26/24 04:17 05/26/24 04:17 Labs: Abnormal Lab Results - Last 24 Hours (Table) 05/25/24 05/25/24 05/26/24 Range/Units 16:57 20:32 04:17 Hgb 12.4 L (13.0-17.5) gm/dL RDW 15.6 H (11.5-15.5) % Neutrophils # 7.9 H (1.3-7.7) k/uL Lymphocytes # 0.7 L (1.0-4.8) k/uL Sodium (137-145) mmol/L Chloride (98-107) mmol/L BUN (9-20) mg/dL Creatinine (0.66-1.25) mg/dL Glucose (74-99) mg/dL POC Glucose (mg/dL) 161 H 200 H (70-110) mg/dL Alkaline Phosphatase (38-126) U/L Total Protein (6.3-8.2) g/dL Albumin (3.5-5.0) g/dL 05/26/24 05/26/24 05/26/24 Range/Units 04:17 06:56 11:55 Hgb (13.0-17.5) gm/dL RDW (11.5-15.5) % Neutrophils # (1.3-7.7) k/uL Lymphocytes # (1.0-4.8) k/uL Sodium 135 L (137-145) mmol/L Chloride 94 L (98-107) mmol/L BUN 46 H (9-20) mg/dL Creatinine 2.26 H (0.66-1.25) mg/dL Glucose 190 H (74-99) mg/dL POC Glucose (mg/dL) 218 H 263 H (70-110) mg/dL Alkaline Phosphatase 185 H (38-126) U/L Total Protein 6.0 L (6.3-8.2) g/dL Albumin 3.1 L (3.5-5.0) g/dL Microbiology - Last 24 Hours (Table) 05/22/24 07:38 Blood Culture - Preliminary Blood
[2024-05-26 16:54] LABS: Glucose,Whole Blood 285 mg/dL (70-110)
[2024-05-26 20:26] LABS: Glucose,Whole Blood 156 mg/dL (70-110)
[2024-05-27 03:17] LABS: Glucose,Whole Blood 181 mg/dL (70-110)
[2024-05-27 06:19] LABS: Glucose,Whole Blood 206 mg/dL (70-110)
[2024-05-27 09:31] LABS: Basophils # (A) 0.08 X 10*3/uL (0.00-0.10); Basophils % (A) 0.9 %; Eosinophils # (A) 0.54 X 10*3/uL (0.04-0.35); Eosinophils % (A) 6.2 %; HCT 38.6 % (39.6-50.0); HGB 12.2 g/dL (13.0-17.0); Lymphocytes # (A) 0.83 X 10*3/uL (0.90-5.00); Lymphocytes % (A) 9.6 %; MCH 25.5 pg (27.0-32.0); MCHC 31.6 g/dL (32.0-37.0); MCV 80.6 FL (80.0-97.0); Mean Platelet Volume 11.1 FL (9.5-12.2); Monocytes # (A) 1.18 X 10*3/uL (0.20-1.00); Monocytes % (A) 13.6 %; NRBC Per 100 WBC 0 X 10*3/uL (0.00-0.01); Neutrophils # (A) 6.04 X 10*3/uL (1.80-7.70); Neutrophils % (A) 69.5 %; Platelet Count 167 X 10*3/uL (140-440); RBC 4.79 X 10*6/uL (4.40-5.60); RDW 15.5 % (11.5-14.5); WBC 8.69 X 10*3/uL (4.50-10.00)
[2024-05-27 10:05] LABS: ALT 28 U/L (10-49); AST 23 U/L (14-35); Albumin 3.1 g/dL (3.8-4.9); Albumin/Globulin Ratio 1.15 Ratio (1.60-3.17); Alkaline Phosphatase 178 U/L (41-126); BUN/Creat Ratio 17.46 Ratio (12.00-20.00); Blood Urea Nitrogen 48.9 mg/dL (9.0-27.0); Calcium 8.4 mg/dL (8.7-10.3); Chloride 95 mmol/L (96-109); Globulin 2.7 g/dL (1.6-3.3); Glucose 183 mg/dL (70-110); Potassium 4.1 mmol/L (3.5-5.5); Sodium 137 mmol/L (135-145); Total Bilirubin 1.1 mg/dL (0.3-1.2); Total Protein 5.8 g/dL (6.2-8.2)
[2024-05-27 10:53] LABS: Glucose,Whole Blood 325 mg/dL (70-110)
--- NOTE | 2024-05-27 11:50 | P.PN ---
Subjective Patient is seen in follow-up for acute kidney injury and volume overload. Edema improved. Renal function worse today with creatinine 2.8. Lasix changed from IV to oral this morning. Has Canales catheter for urinary retention. Denies chest pain or shortness of breath. Vital signs are stable. General: No acute distress. HEENT: Head exam is unremarkable. LUNGS: No audible rhonchi or wheezes. HEART: Rate and Rhythm are regular. ABDOMEN: Nontender. EXTREMITITES: No edema. Objective - Vital Signs Vital signs: Vital Signs Temp 98.7 F 05/27/24 06:56 Pulse 76 05/27/24 06:56 Resp 18 05/27/24 06:56 BP 120/64 05/27/24 06:56 Pulse Ox 94 L 05/27/24 06:56 FiO2 Intake & Output 05/26/24 05/27/24 05/27/24 18:59 06:59 18:59 Output Total 3450 2800 Balance -3450 -2800 Weight 82.024 kg 81.5 kg Output: Urine 3450 2800 Uretheral (Canales) 1900 Other: Voiding Method Indwelling Catheter Indwelling Catheter Indwelling Catheter # Bowel Movements 1 - Labs CBC & Chem 7: 05/27/24 05:23 05/27/24 05:23 Labs: Abnormal Lab Results - Last 24 Hours (Table) 05/26/24 05/26/24 05/26/24 Range/Units 11:55 16:53 20:24 Hgb (13.0-17.0) g/dL Hct (39.6-50.0) % MCH (27.0-32.0) pg MCHC (32.0-37.0) g/dL RDW (11.5-14.5) % Lymphocytes # (0.90-5.00) X 10*3/uL Monocytes # (0.20-1.00) X 10*3/uL Eosinophils # (0.04-0.35) X 10*3/uL Chloride (96-109) mmol/L Anion Gap (4.00-12.00) mmol/L BUN (9.0-27.0) mg/dL Creatinine (0.6-1.5) mg/dL Est GFR (CKD-EPI) (>=60) Glucose (70-110) mg/dL POC Glucose (mg/dL) 263 H 285 H 156 H (70-110) mg/dL Calcium (8.7-10.3) mg/dL Alkaline Phosphatase (41-126) U/L Total Protein (6.2-8.2) g/dL Albumin (3.8-4.9) g/dL Albumin/Globulin Ratio (1.60-3.17) Ratio 05/27/24 05/27/24 05/27/24 Range/Units 03:13 05:23 05:23 Hgb 12.2 L (13.0-17.0) g/dL Hct 38.6 L (39.6-50.0) % MCH 25.5 L (27.0-32.0) pg MCHC 31.6 L (32.0-37.0) g/dL RDW 15.5 H (11.5-14.5) % Lymphocytes # 0.83 L (0.90-5.00) X 10*3/uL Monocytes # 1.18 H (0.20-1.00) X 10*3/uL Eosinophils # 0.54 H (0.04-0.35) X 10*3/uL Chloride 95 L (96-109) mmol/L Anion Gap 13.00 H (4.00-12.00) mmol/L BUN 48.9 H (9.0-27.0) mg/dL Creatinine 2.8 H (0.6-1.5) mg/dL Est GFR (CKD-EPI) 25 L (>=60) Glucose 183 H (70-110) mg/dL POC Glucose (mg/dL) 181 H (70-110) mg/dL Calcium 8.4 L (8.7-10.3) mg/dL Alkaline Phosphatase 178 H (41-126) U/L Total Protein 5.8 L (6.2-8.2) g/dL Albumin 3.1 L (3.8-4.9) g/dL Albumin/Globulin Ratio 1.15 L (1.60-3.17) Ratio 05/27/24 05/27/24 Range/Units 06:18 10:50 Hgb (13.0-17.0) g/dL Hct (39.6-50.0) % MCH (27.0-32.0) pg MCHC (32.0-37.0) g/dL RDW (11.5-14.5) % Lymphocytes # (0.90-5.00) X 10*3/uL Monocytes # (0.20-1.00) X 10*3/uL Eosinophils # (0.04-0.35) X 10*3/uL Chloride (96-109) mmol/L Anion Gap (4.00-12.00) mmol/L BUN (9.0-27.0) mg/dL Creatinine (0.6-1.5) mg/dL Est GFR (CKD-EPI) (>=60) Glucose (70-110) mg/dL POC Glucose (mg/dL) 206 H 325 H (70-110) mg/dL Calcium (8.7-10.3) mg/dL Alkaline Phosphatase (41-126) U/L Total Protein (6.2-8.2) g/dL Albumin (3.8-4.9) g/dL Albumin/Globulin Ratio (1.60-3.17) Ratio Assessment and Plan Plan: Assessment: 1. Acute kidney injury secondary to ATN secondary to cardiorenal syndrome and urinary retention.. Renal function worse with creatinine 2.8 today. 2. Volume overload. Improved with diuresis. 3. Coronary artery disease status post CABG. 4. Urinary retention status post Canales catheter placement. On Flomax. 5. Acute on chronic systolic CHF with ejection fraction of 40 to 45%. 6. Hypokalemia from diuresis. Replaced. Better. Plan: Agree with transition to oral diuretics. Stop Zaroxolyn. Maintain SGLT2 inhibitor. Avoid nephrotoxins. Continue to monitor renal function and urine output.
--- NOTE | 2024-05-27 13:39 | P.PN ---
Subjective Progress Note Date: 05/27/24 HISTORY OF PRESENT ILLNESS: This is a 59-year-old male patient of rosita and Dr. Ga with past medical history of coronary artery disease status post 6 vessel CABG 2006 with MAE to LAD, saphenous venous graft to the PDA, saphenous venous graft to the obtuse marginal one, radial artery to the obtuse marginal branch 2 and saphenous venous graft to the obtuse marginal 3 followed by heart catheterization with PCI and stent of the saphenous venous graft to the RCA in 2015 at which time he pres ented with non-ST elevated myocardial infarction. Most recent cardiac catheterization was performed on 04/10/2022 which revealed severe triple-vessel coronary artery disease with a patent ramus intermediate, patent SVG to the OM, patent MAE to the LAD, and occluded saphenous vein graft to the RCA which is chronic from before. Medical therapy was advised at that time. History of hypertension, hypertensive cardiovascular disease with left ventricular hypertrophy, hyperlipidemia, ischemic cardiomyopathy, paroxysmal atrial fibrillation, currently on Eliquis, diabetes mellitus type 2 with diabetic polyneuropathy, hyperlipidemia, asthma, obstructive sleep apnea on CPAP, chronic low back pain, DVT in the past, patient was recently hospitalized at [facility] between 05/05/2024 05/17/2024 after he was admitted for acute hypoxemic respiratory failure due to acute systolic heart failure as well as acute bronchitis was seen in consultation by pulmonary as well as by cardiology he ended up having significant acute kidney injury due to cardiorenal syndrome as well as vasomotor nephropathy, he started to recover from that, patient was supposed to come to see him in the office this week, instead he showed up in the emergency department with increased swelling both lower extremities and in creased shortness of breath, as well as increased coughing, his chest x-ray showed evidence of cardiomegaly pulmonary vascular congestion as well as right lower lobe infiltrate could be an early gram-negative pneumonia, versus atelectasis, patient was started on IV diuretics, he was admitted to the hospital for evaluation by cardiology, nephrology, as well as pulmonary medicine. Patient has significant scrotal edema, underwent ultrasound of the scrotum that showed evidence of bilateral hydrocele, with left varicocele no evidence of torsion 05/23: Patient sitting up in bed in no apparent distress, he denies any chest pain, he is less short of breath, he continues to have a significant swelling in the abdominal wall along with both lower extremities, with pitting edema, diuresing very well through the Canales catheter, has been on Lasix 40 mg IV push every 12 hours along with spironolactone, will follow-up with the patient very closely, monitor his kidney function, patient also has been started on Zosyn 3.375 g piggyback every 8 hours for possible gram-negative pneumonia as well pulmonary is following as well physical therapy evaluation, continue to follow- up with the patient very closely continue to follow-up with the labs including CBC CMP magnesium over the next 24 hours 05/24: Patient continues to have significant edema in the abdominal wall as well as upper thighs and bilateral lower extremities, he has Canales catheter in place, he has scrotal edema, he has foreskin edema as well, he is complain of significant pain in the scrotal area, he has been started on pain management as well as nystatin powder to alleviate some of the skin infection, he was switched yesterday again to frusemide 40 mg IV push every 12 hours because of significant weight gain, he was started on spironolactone 50 mg once every day, Farxiga 5 mg once every day, lipid better today but not a whole lot, will switch the patient to inpatient at this point in time due to acute systolic heart failure. 05/25: Patient is sitting up in bed he continues to have significant edema in the abdominal wall, both lower extremities a bit better than yesterday, continues to have significant scrotal edema, he has a Canales catheter in place with significant for screening edema, his skin is splitting in the scrotal area, he has been getting nystatin powder as well, continue current pain management, continue Lasix 40 mg IV push every 12 hours, continue Farxiga 5 mg orally once every day, spironolactone 50 mg once every day, follow-up with the patient very closely, nephrology along with cardiology and pulmonary medicine is following, he has been responding very well to the Zosyn 3.375 g piggyback every 8 hours, will continue with that as well monitor the patient kidney function test very closely, as he is getting a bit worse than yesterday 05/26: Patient is sitting up in bed is feeling a bit better today, he swelling is much better than yesterday, he continues to have +1-2 edema in both lower extremities, continue to have significant swelling in the scrotal area, better than yesterday as well, better weeping in both lower extremities in his groin area, has been on Zosyn along with Lasix 40 mg IV push every 12 hours, continue patient on Zaroxolyn 2.5 mg once every day, continue monitor input and output and daily weight, monitor the patient's electrolytes, monitor the BUN and creatinine as well, nephrology has been following, along with pulmonary medicine, will follow-up with the patient very closely. 05/27: Patient is sitting up in bed in no apparent distress, his swelling is much better today, his creatinine is up to 2.8, he was seen earlier by nephrology who recommended to switch the patient to oral Lasix 40 mg once every day, discontinue Zaroxolyn, continue with Farxiga 5 mg once every day, monitor the patient input and output and daily weight, increase activity level discontinue Zosyn at this time, start the patient on amoxicillin/clavulanate 500/125 mg orally twice every day for 1 more day. REVIEW OF SYSTEMS: Constitutional: No documented fever, no chills, no night sweats. No weight change. Positive for weakness, positive for fatigue, no lethargy. No daytime sleepiness. HEENT: No headache. No blurred vision or double vision, no loss of vision. No loss of Hearing, no ringing in the ears, no dizziness. No nasal drainage or congestion. No epistaxis. No sore throat. Lungs: positive for shortness of breath, occasional cough, minimal sputum production. no wheezing. Reports dyspnea with activity. Cardiovascular: no chest pain, positive for lower extremity edema. No palpitations. No paroxysmal nocturnal dyspnea. No orthopnea. positive for lightheadedness or dizziness. No syncopal episodes. Abdominal: Reports no abdominal pain. no nausea, vomiting. No diarrhea. No constipation. No bloody or tarry stools reports loss of appetite. Genitourinary: No dysuria, increased frequency, urgency. No urinary retention. Musculoskeletal: No myalgias. positive for muscle weakness, no gait dysfunction, frequent falls. No back pain. No neck pain. Integumentary: scabbed wounds to left caballero , no lesions. No rash or pruritus. No unusual bruising. No change in hair or nails. Neurologic: No aphasia. Minimal facial droop. No change in mentation. No head injury. No headache, minimal drift. Psychiatric: positive for depression. No anxiety. No mood swings. Endocrine: abnormal blood sugars. No weight change. PHYSICAL EXAMINATION: General: 59-year-old male laying down in mild distress. HEENT: Head is atraumatic, normocephalic, pupils were equal round reactive to light and recommendation, extraocular muscle movement were intact, sclera nonicteric, conjunctivae were pale, mucous membranes of the mouth are somewhat dry. Neck: Supple, no JVP, normal carotid upstroke bilaterally, no lymphadenopathy. Chest: Decreased breath sounds at the bases, few rhonchi no expirratory wheezes,, no chest wall tenderness, no intercostal retractions. Heart: First heart sound is normal, second heart sounds normal, irregularly irregular, there is systolic ejection murmur 2/6 located in the left sternal border. Abdomen: Soft, nontender, nondistended, positive bowel sounds, there is no hepatosplenomegaly positive for abdominal wall edema positive for scrotal edema. Extremities: There is +3 edema no calf tenderness DP +1 bilaterally, there is s crotal edema as well. Neurologic examination: Patient is awake alert and oriented X 3, cranial nerves II-12 appear grossly intact, muscle power were 4 out of 5 in upper extremities and 4 out of 5 in bilateral lower extremities, deep tendon reflexes normal bilaterally. Minimal right facial droop, and right leg weakness. ASSESSMENT AND PLAN: 1. Acute on chronic systolic heart failure . Patient was switched to Lasix 40 mg orally once every day, discontinue Zaroxolyn, continue Farxiga 5 mg once e very day, continue patient on carvedilol 25 mg orally twice every day, hydralazine 25 mg orally 3 times every day, monitor input and output and daily weight. 2. right lower lobe infiltrate likely gram-negative pneumonia discontinue Zosyn and start the patient on amoxicillin/clavulanate 500/125 mg orally twice every day for 24 hours. 3. Acute kidney injury due to cardiorenal syndrome. discontinue IV Lasix continue Lasix 40 mg once every day repeat labs tomorrow morning for, monitor the patient input output and daily weight, Canales catheter is in. 4. Hypertension and hypertensive cardiovascular disease. Continue patient on Carvedilol 25 mg orally twice every day, continue with Hydralazine, orally 3 times every as well and monitor BP very closely. 5. Diabetes mellitus type 2. Continue patient on Lantus 26 units at bedtime along with NovoLog 5 units before each meal plus the sliding scale insulin. Continue Farxiga 5 mg orally once every day, check blood glucose level before ea ch meal and at bedtime. 6. Coronary artery disease status post CABG 6 as well as PCI in the past. Continue patient on ASA 81 mg once every day, Carvedilol 25 mg orally twice every day, continue patient on atorvastatin 80 mg orally once every day, continue Zetia 10 mg orally once every day. 7. Hyperlipidemia. Continue patient on atorvastatin 80 mg once every day, continue Zetia 10 mg orally once every day, monitor lipid panel, keep LDL 55-70. 8. Diabetic polyneuropathy. Continue patient on gabapentin 300 mg orally at bedtime. 9. Obstructive sleep apnea. Patient does have a CPAP at home. 10. Chronic systolic heart failure. Continue with Furosemide 40 mg orally once every day, Farxiga 5 mg orally once every day, carvedilol 25 mg orally twice every day. 11. Paroxysmal atrial fibrillation . Continue patient on Coreg 25 mg orally twice every day, Eliquis 5 mg po bid. 12. Enlarged prostate with urinary retention. Continue Canales catheter, continue Flomax 0.4 mg once every day, will attempt to discontinue Canales catheter tomorrow morning. 13. DVT prophylaxis. Continue Eliquis 5 mg orally twice every day. 14. GI prophylaxis. Continue Protonix 40 mg orally once every day. 15. History of CVA in the past recovered well will continue with Atorvastatin 80 mg po daily and Eliquis for life 16. likely home in the next 1 or 2 days. Objective - Vital Signs Vital signs: Vital Signs Temp 98.7 F 05/27/24 06:56 Pulse 76 05/27/24 06:56 Resp 18 05/27/24 06:56 BP 120/64 05/27/24 06:56 Pulse Ox 94 L 05/27/24 06:56 FiO2 Intake & Output 05/26/24 05/27/24 05/27/24 18:59 06:59 18:59 Output Total 3450 2800 Balance -3450 -2800 Weight 82.024 kg 81.5 kg Output: Urine 3450 2800 Uretheral (Canales) 1900 Other: Voiding Method Indwelling Catheter Indwelling Catheter # Bowel Movements 1 - Labs CBC & Chem 7: 05/27/24 05:23 05/27/24 05:23 Labs: Abnormal Lab Results - Last 24 Hours (Table) 05/26/24 05/26/24 05/26/24 Range/Units 11:55 16:53 20:24 POC Glucose (mg/dL) 263 H 285 H 156 H (70-110) mg/dL 05/27/24 05/27/24 Range/Units 03:13 06:18 POC Glucose (mg/dL) 181 H 206 H (70-110) mg/dL
--- NOTE | 2024-05-27 14:48 | P.PN ---
Subjective Progress Note Date: 05/27/24 This is a 59-year-old male patient with a history of obstructive sleep apnea ma intained on CPAP, mild intermittent chronic bronchial asthma, lifelong non- smoker, hypertension, hyperlipidemia, diabetes mellitus, diabetic neuropathy, chronic kidney disease stage III, coronary artery disease with previous stents and subsequent bypass grafting surgery. He presented here back on May 05, 2024 with complaints of shortness of breath, he was treated and the patient was discharged home on 05/17/2024 discharged after being treated for acute on top of chronic systolic heart failure and the patient also encountered an acute kidney injury due to cardiorenal syndrome related to his CHF. The patient was discharged home on Lasix 40 mg p.o. twice a day, and he is also maintained on C oreg 25 mg p.o. twice a day, Farxiga 10 mg p.o. daily, hydralazine 25 mg p.o. 3 times daily. He is on Lantus insulin in addition to metformin for diabetes mellitus and he also takes a combination of Lipitor and Zetia for chronic hyperlipidemia. He is on anticoagulation with Eliquis regarding paroxysmal atrial fibrillation. His current rhythm remains sinus. Few days following his discharge, the patient became again progressively more short of breath. There is worsening in lower extremity edema. There was also increase in scrotal edema. Based on that, the patient presented to the hospital and the patient was admitted for acute decompensated heart failure. The white cell count of 12.1, hemoglobin 12 and a platelet count is 136. BUN is 37 with a creatinine of 1.36 and a sodium level at 135 with a potassium level is at 3. Blood sugars at 256. UA is showing +2 protein plus for glucose and there is a possibility of diabetic nephropathy/nephrotic syndrome. proBNP level is 13,000. Thyroid function test normal. LFTs show mild elevation of the alkaline phosphatase, ALT is at 83 with an AST of 42. Magnesium is at 1.8. Coagulation profile shows an INR of 1.3 with a PT of 13.6 and a PTT of 26. The patient remains on room air oxygen. Currently is on Lasix 40 mg IV every 12 hours. Rest of the home medication resumed. He is also on Aldactone 25 mg p.o. daily. He was started on empiric antibiotic coverage with IV Zosyn. 05/23/2024, slightly improved in terms of volume status. Continues to have excessive scrotal edema lower extremity edema. Still on IV Lasix 40 mg every 24 hours. Fluid balance is negative. The creatinine currently is up to 1.9 with a BUN of 39. Sodium is at 137, potassium level is at 3.4. White cell count of 10.7. The patient remains on room air oxygen. No significant shortness of breath. No fever chills or night sweats. Remains on Aldactone. Remains on Lantus insulin 28 units along with 5 units with meals. Rest of the medications are essentially unchanged. 05/24/2024, the patient is being seen for a follow-up.. Continues to diurese and the patient remains on Lasix 40 mg IV every 12 hours. Fluid balance remains negative and the patient has been in -2.8 L negative fluid balance and the patient is producing additional 1 L since earlier this morning. Creatinine remained stable at 1.9. BUN is at 39. Sodium levels at 139, the white cell count of 3.7 with a hemoglobin of 11.1. A repeat chest x-ray was done today and shows similar CHF findings with pulm vascular congestion. Ultrasound abdomen was also done yesterday and it showed no significant ascites. Continues to have scrotal edema. Remains on room air oxygen. No other significant events overnight. 05/25/2024, patient remains on room air oxygen. Continues to complain of significant edema specially lower extremity and scrotal area. However, the patient continues to produce excellent urine output while being on IV Lasix. He is at least 5 L and a negative fluid balance over the past 24 hours. His electrolytes are being monitored closely. He remains on Lasix 40 mg IV every 12 hours. He is also on Aldactone 50 mg on a daily basis. No other new complaints otherwise for now. Blood work shows a white cell count of 9.2, hemoglobin of 11 and a platelet count of 131. BUN is 41 with a creatinine of 2.1 and a sodium is at 135 and a potassium level is 3.7. 05/26/2024, the patient remains on room air oxygen. Continues to diurese with IV Lasix. He is running a low-grade fever of 100.8. He is on room air oxygen with a pulse ox of 95%. He is 7 L negative over the past 24 hours. Edema is improving and the patient has lost approximately 6 kg over the past few days. The white cell count is at 10 hemoglobin 12.4 and platelet count of 154. BUN 46 with a creatinine of 2.2. Sodium levels at 135. Remains on IV Zosyn. Remains on Aldactone 50 mg p.o. daily. Remains on Zaroxolyn 2.5 mg p.o. daily. Remains on IV Lasix 40 mg IV every 12 hours. Rest of the medications are essentially unchanged. Cultures were negative. 05/27/2024, patient is being seen for a follow-up. On today's evaluation, the patient is doing well. No new complaints. Significant improvement in volume status and lower extremity edema. Scrotal edema is also subsided. The fluid balance has been -6.2 L over the past 24 hours and we have also noted some increase in the creatinine level. Based on that, IV Lasix will be discontinued. For now, the patient will be kept on Lasix 40 mg p.o. daily and Aldactone 50 mg p.o. daily. No significant chest pain or shortness of breath. BUN is 48 with a creatinine of 2.8. Sodium level is at 137 and a potassium level is at 4.1. The white cell count is at 8.6 with a hemoglobin of 12.2. Nephrology is on the case. As stated, edema is improved considerably. Canales catheter still in place. Denies having any new complaints. No encephalopathy. No chest pain. He is currently afebrile. He is on room air oxygen. IV antibiotics has been discontinued and the patient remains on anticoagulation with Eliquis. He remains on insulin 5 units with meals and NovoLog/scale coverage. Objective - Vital Signs Vital signs: Vital Signs Temp 98.7 F 05/27/24 06:56 Pulse 76 05/27/24 06:56 Resp 18 05/27/24 06:56 BP 120/64 05/27/24 06:56 Pulse Ox 94 L 05/27/24 06:56 FiO2 Intake & Output 05/26/24 05/27/24 05/27/24 18:59 06:59 18:59 Output Total 3450 2800 Balance -3450 -2800 Weight 82.024 kg 81.5 kg Output: Urine 3450 2800 Uretheral (Canales) 1900 Other: Voiding Method Indwelling Catheter Indwelling Catheter # Bowel Movements 1 - Exam GENERAL EXAM: Revealed 59-year-old white male in no distress, on room air. HEAD: Normocephalic. EYES: Normal reaction of pupils, equal size. NOSE: Clear with pink turbinates. THROAT: No erythema or exudates. NECK: No masses, no JVD. CHEST: No chest wall deformity. LUNGS: Clear throughout no crackles rhonchi or wheezes CVS: S1 and S2 normal with no audible murmur, regular rhythm. ABDOMEN: No hepatosplenomegaly, normal bowel sounds, no guarding or rigidity. SKIN: No rashes CENTRAL NERVOUS SYSTEM: No focal deficits, tone is normal in all 4 extremities. EXTREMITIES: There is marked improvement in lower extremity and scrotal edema Psychiatric: Depressed mood flat affect normal mental status. - Labs CBC & Chem 7: 05/27/24 05:23 05/27/24 05:23 Labs: Abnormal Lab Results - Last 24 Hours (Table) 05/26/24 05/26/24 05/26/24 Range/Units 11:55 16:53 20:24 Hgb (13.0-17.0) g/dL Hct (39.6-50.0) % MCH (27.0-32.0) pg MCHC (32.0-37.0) g/dL RDW (11.5-14.5) % Lymphocytes # (0.90-5.00) X 10*3/uL Monocytes # (0.20-1.00) X 10*3/uL Eosinophils # (0.04-0.35) X 10*3/uL Chloride (96-109) mmol/L Anion Gap (4.00-12.00) mmol/L BUN (9.0-27.0) mg/dL Creatinine (0.6-1.5) mg/dL Est GFR (CKD-EPI) (>=60) Glucose (70-110) mg/dL POC Glucose (mg/dL) 263 H 285 H 156 H (70-110) mg/dL Calcium (8.7-10.3) mg/dL Alkaline Phosphatase (41-126) U/L Total Protein (6.2-8.2) g/dL Albumin (3.8-4.9) g/dL Albumin/Globulin Ratio (1.60-3.17) Ratio 05/27/24 05/27/24 05/27/24 Range/Units 03:13 05:23 05:23 Hgb 12.2 L (13.0-17.0) g/dL Hct 38.6 L (39.6-50.0) % MCH 25.5 L (27.0-32.0) pg MCHC 31.6 L (32.0-37.0) g/dL RDW 15.5 H (11.5-14.5) % Lymphocytes # 0.83 L (0.90-5.00) X 10*3/uL Monocytes # 1.18 H (0.20-1.00) X 10*3/uL Eosinophils # 0.54 H (0.04-0.35) X 10*3/uL Chloride 95 L (96-109) mmol/L Anion Gap 13.00 H (4.00-12.00) mmol/L BUN 48.9 H (9.0-27.0) mg/dL Creatinine 2.8 H (0.6-1.5) mg/dL Est GFR (CKD-EPI) 25 L (>=60) Glucose 183 H (70-110) mg/dL POC Glucose (mg/dL) 181 H (70-110) mg/dL Calcium 8.4 L (8.7-10.3) mg/dL Alkaline Phosphatase 178 H (41-126) U/L Total Protein 5.8 L (6.2-8.2) g/dL Albumin 3.1 L (3.8-4.9) g/dL Albumin/Globulin Ratio 1.15 L (1.60-3.17) Ratio 05/27/24 Range/Units 06:18 Hgb (13.0-17.0) g/dL Hct (39.6-50.0) % MCH (27.0-32.0) pg MCHC (32.0-37.0) g/dL RDW (11.5-14.5) % Lymphocytes # (0.90-5.00) X 10*3/uL Monocytes # (0.20-1.00) X 10*3/uL Eosinophils # (0.04-0.35) X 10*3/uL Chloride (96-109) mmol/L Anion Gap (4.00-12.00) mmol/L BUN (9.0-27.0) mg/dL Creatinine (0.6-1.5) mg/dL Est GFR (CKD-EPI) (>=60) Glucose (70-110) mg/dL POC Glucose (mg/dL) 206 H (70-110) mg/dL Calcium (8.7-10.3) mg/dL Alkaline Phosphatase (41-126) U/L Total Protein (6.2-8.2) g/dL Albumin (3.8-4.9) g/dL Albumin/Globulin Ratio (1.60-3.17) Ratio Assessment and Plan Plan: Acute exacerbation of chronic systolic congestive heart failure with ejection fraction 40 to 45% based on echocardiogram that was done on 06/07/2023. The patient has moderate LV systolic dysfunction and moderate to severe pulmonary hypertension and moderate degree of posteriorly directed mitral regurgitation and severe tricuspid regurgitation consistent with valvular heart disease. Estimated right ventricular systolic pressure was 57 mmHg. Volume status has been optimized with diuresis. Improving lower extremity edema. Improvement in the scrotal edema. Low-grade fever, resolved and the patient is currently off antibiotics Bilateral pleural effusions/CHF/fluid overload MIld intermittent asthma Chronic stage III kidney disease, creatinine slightly elevated compared to yesterday due to diuresis. Creatinine is being monitored closely. There is some elevation in creatinine related to diuresis. Diabetes mellitus, type II Diabetic neuropathy with +2 protein in the UA. Rule out underlying nephrosis Coronary artery disease with previous stents/coronary artery bypass grafting CHF with ischemic cardiomyopathy, EF of around 40 to 45%, moderate-severe pulm hypertension, mitral regurgitation and severe tricuspid regurgitation and pulmonary hypertension. Hyperlipidemia Hypertension Chronic lower extremity edema, improving and the patient is a negative fluid balance of at least 7 L over the past 24 hours. Scrotal edema Indeterminate hypoechoic lesion involving the right kidney measuring 1.3 cm in size that needs to be further worked up on outpatient basis with an MRI. The patient also has a simple cyst involving the left kidney measuring 1.9 cm in size. Recommendation: Discontinue IV Lasix and put the patient on 40 mg of Lasix on a daily basis in combination with Aldactone 50 mg p.o. daily. Patient currently on room air oxygen Monitor renal function Monitor fever pattern Continue Coreg, Farxiga Continue hydralazine Continue insulin Lantus 26 units along with sliding scale coverage and 5 units of NovoLog with meals Monitor volume status and this has improved considerably. Monitor electrolytes and renal function Will continue to follow.
[2024-05-27] MEDS: CLOTRIMAZOLE/BETAMETH 1-0.05% CREAM 45 GM TUBE TOPICAL SCH (15:33)
[2024-05-27 16:16] LABS: Glucose,Whole Blood 229 mg/dL (70-110)
[2024-05-27 20:58] LABS: Glucose,Whole Blood 164 mg/dL (70-110)
[2024-05-27] MEDS: AMOXIC-POT CLAV 500-125 MG 1 EACH TAB PO SCH (22:01)
[2024-05-28 06:25] LABS: Glucose,Whole Blood 222 mg/dL (70-110)
[2024-05-28] MEDS: FUROSEMIDE 40 MG TAB PO SCH (09:03)
[2024-05-28 10:27] LABS: Glucose,Whole Blood 294 mg/dL (70-110)
--- NOTE | 2024-05-28 11:00 | P.PN ---
Subjective Patient is seen in follow-up for acute kidney injury and volume overload. Edema improved. Renal function worse with creatinine 2.8 yesterday. Now on oral Lasix. Also on Aldactone. Has Canales catheter for urinary retention. Denies chest pain or shortness of breath. Vital signs are stable. General: No acute distress. HEENT: Head exam is unremarkable. LUNGS: No audible rhonchi or wheezes. HEART: Rate and Rhythm are regular. ABDOMEN: Nontender. EXTREMITITES: No edema. Objective - Vital Signs Vital signs: Vital Signs Temp 98.9 F 05/28/24 07:00 Pulse 68 05/28/24 07:00 Resp 18 05/28/24 07:00 BP 131/78 05/28/24 07:00 Pulse Ox 92 L 05/28/24 07:00 FiO2 Intake & Output 05/27/24 05/28/24 05/28/24 18:59 06:59 18:59 Intake Total 800 Output Total 3700 2600 Balance -3700 -1800 Weight 78 kg Intake: Oral 800 Output: Urine 3700 2600 Other: Voiding Method Indwelling Catheter Indwelling Catheter Indwelling Catheter # Bowel Movements 0 - Labs CBC & Chem 7: 05/27/24 05:23 05/27/24 05:23 Labs: Abnormal Lab Results - Last 24 Hours (Table) 05/27/24 05/27/24 05/28/24 Range/Units 16:15 20:56 06:21 POC Glucose (mg/dL) 229 H 164 H 222 H (70-110) mg/dL 05/28/24 Range/Units 10:26 POC Glucose (mg/dL) 294 H (70-110) mg/dL Microbiology - Last 24 Hours (Table) 05/22/24 07:38 Blood Culture - Final Blood Assessment and Plan Plan: Assessment: 1. Acute kidney injury secondary to ATN secondary to cardiorenal syndrome and urinary retention.. Renal function worse with creatinine 2.8 yesterday. 2. Volume overload. Improved with diuresis. 3. Coronary artery disease status post CABG. 4. Urinary retention status post Canales catheter placement. On Flomax. 5. Acute on chronic systolic CHF with ejection fraction of 40 to 45%. 6. Hypokalemia from diuresis. Replaced. Better. Plan: Maintain oral Lasix. Zaroxolyn discontinued. Maintain SGLT2 inhibitor. Avoid nephrotoxins. Continue to monitor renal function and urine output. Urology consulted for urinary retention. Morning labs pending.
[2024-05-28 11:10] LABS: Basophils # (A) 0.05 X 10*3/uL (0.00-0.10); Basophils % (A) 0.6 %; Eosinophils # (A) 0.62 X 10*3/uL (0.04-0.35); Eosinophils % (A) 7.5 %; HCT 37.1 % (39.6-50.0); Lymphocytes # (A) 0.64 X 10*3/uL (0.90-5.00); Lymphocytes % (A) 7.8 %; MCH 25.6 pg (27.0-32.0); MCHC 32.3 g/dL (32.0-37.0); MCV 79.3 FL (80.0-97.0); Mean Platelet Volume 11.3 FL (9.5-12.2); Monocytes # (A) 1.09 X 10*3/uL (0.20-1.00); Monocytes % (A) 13.2 %; NRBC Per 100 WBC 0 X 10*3/uL (0.00-0.01); Neutrophils # (A) 5.82 X 10*3/uL (1.80-7.70); Neutrophils % (A) 70.7 %; Platelet Count 206 X 10*3/uL (140-440); RBC 4.68 X 10*6/uL (4.40-5.60); RDW 15.5 % (11.5-14.5); WBC 8.24 X 10*3/uL (4.50-10.00)
--- NOTE | 2024-05-28 11:15 | P.GSCN ---
History of Present Illness Consult date: 05/28/24 Reason for Consult: Urinary retention Requesting physician: Fidencio Rodriguez History of present illness: The patient is a 59-year-old white male recently discharged following admission for acute hypoxic respiratory failure with CHF exacerbation and volume overload. He is now readmitted with scrotal and lower extremity edema. Scrotal ultrasound showed bilateral hydroceles and marked scrotal edema. A Canales catheter was placed, with return of 2.2 L. The catheter remains in place. He is being treated with diuretics and states that his lower extremity edema has improved. He denies any prior history of UTIs, urolithiasis, or scrotal edema. Ultrasound performed on May 09, 2024 showed no evidence of hydronephrosis. His PSA level was 0.47 in February 2024. Review of Systems - Cardiovascular Reports high blood pressure - Genitourinary Reports nocturia, Reports urinary frequency, Denies dysuria, Denies hematuria Past Medical History Past Medical History: Asthma, Coronary Artery Disease (CAD), Chest Pain / Angina, Diabetes Mellitus, Deep Vein Thrombosis (DVT), Hyperlipidemia, Hypertension, Myocardial Infarction (AR), Sleep Apnea/CPAP/BIPAP Additional Past Medical History / Comment(s): Obstructive sleep apnea CPAP, bronchitis, IDDM type II, DVT L leg, cellulitis L leg 2012 cellulitis L Arm 2017, diabetic neuropathy affects feet and hands, chronic kidney disease stage II Last Myocardial Infarction Date:: 06/23/13 History of Any Multi-Drug Resistant Organisms: Acinetobacter (MDRO), MRSA Year Discovered:: 08/2014 MDRO Source:: abdomen around navel Past Surgical History: Back Surgery, Coronary Bypass/CABG, Heart Catheterization, Heart Catheterization With Stent, Hernia Repair Additional Past Surgical History / Comment(s): Cardiac caths, PCI with stents (4total), 2006 CABG 6 vessels, spinal fusion L4-L5, fasciotomy left thigh, bilateral inguinal hernia repairs, I&D L forearm with dehisence then compartment syndrome with fasciotomy Left forearm - June 2016, teeth extraction Past Anesthesia/Blood Transfusion Reactions: No Reported Reaction Date of Last Stent Placement:: 08/28/15 Past Psychological History: No Psychological Hx Reported Smoking Status: Never smoker Past Alcohol Use History: None Reported Past Drug Use History: None Reported - Past Family History Brother(s) History Unknown: Yes Additional Family Medical History / Comment(s): Patient has 1 brother and 1 sister with no major medical problems. Mother History Unknown: Yes Family Medical History: Congestive Heart Failure (CHF), Diabetes Mellitus Additional Family Medical History / Comment(s): Mother at the age of 84 f rom with history of chronic renal disease stage. Father History Unknown: Yes Family Medical History: COPD, Coronary Artery Disease (CAD), Myocardial Infarction (AR) Additional Family Medical History / Comment(s): Father of a AR at the age of 60 yrs with history of COPD. Sister(s) History Unknown: Yes Family Medical History: Rheumatoid Arthritis (RA) Additional Family Medical History / Comment(s): Patient has 1 sister with no major medical problems. Medications and Allergies Home Medications Medication Instructions Recorded Confirmed Type Ezetimibe [Zetia] 10 mg PO DAILY 12/15/20 05/22/24 History Atorvastatin [Lipitor] 80 mg PO DAILY 04/09/22 05/22/24 History carvediloL [Coreg] 25 mg PO BID 06/05/23 05/22/24 History Apixaban [Eliquis] 5 mg PO BID 05/05/24 05/22/24 History hydrALAZINE HCL [Apresoline] 25 mg PO TID 05/05/24 05/22/24 History Furosemide [Lasix] 40 mg PO DAILY #30 tab 05/17/24 05/22/24 Rx Gabapentin 300 mg PO HS #0 05/17/24 05/22/24 Rx Pantoprazole [Protonix] 40 mg PO AC-BRKFST #30 tab 05/17/24 05/22/24 Rx Potassium Chloride ER [K-Dur 20] 20 meq PO DAILY #30 tab 05/17/24 05/22/24 Rx Insulin Aspart [NovoLOG Flexpen] 9 - 12 units SQ TID-W/MEALS 05/22/24 05/22/24 History Insulin Glargine,Hum.rec.anlog 30 unit SQ HS 05/22/24 05/22/24 History [Basaglar Kwikpen U-100] Allergies Allergy/AdvReac Type Severity Reaction Status Date / Time adhesive tape Allergy Severe Rash/Hives Verified 05/22/24 07:01 vancomycin Allergy Mild Head Itches Verified 05/22/24 07:01 Surgical - Exam Vital Signs Temp Pulse Resp BP Pulse Ox 97.9 F 88 18 168/82 93 L 05/21/24 19:46 05/21/24 19:46 05/21/24 19:46 05/21/24 19:46 05/21/24 19:46 - General well developed, well nourished, no distress - Respiratory normal respiratory effort - Abdomen Abdomen: soft, non tender, no guarding, no rigid, no rebound - Genitourinary Mild scrotal edema, normal urethral meatus. Moderate scrotal edema, normal testes. - Psychiatric oriented to time, oriented to person, oriented to place, speech is normal, memory intact Results - Labs 05/28/24 04:05/27/24 05:23 Abnormal Lab Results - Last 24 Hours (Table) 05/27/24 05/27/24 05/27/24 Range/Units 10:50 16:15 20:56 POC Glucose (mg/dL) 325 H 229 H 164 H (70-110) mg/dL 05/28/24 05/28/24 Range/Units 06:21 10:26 POC Glucose (mg/dL) 222 H 294 H (70-110) mg/dL Microbiology - Last 24 Hours (Table) 05/22/24 07:38 Blood Culture - Final Blood Assessment and Plan (1) Scrotal edema Current Visit: Yes Status: Acute Code(s): N50.89 - OTHER SPECIFIED DISORDERS OF THE MALE GENITAL ORGANS SNOMED Code(s): 65054581 (2) Bladder retention Current Visit: Yes Status: Acute Code(s): R33.9 - RETENTION OF URINE, UNSPECIFIED SNOMED Code(s): 072889264 Plan: The scrotal edema should improve with diuretic therapy, and scrotal elevation may be of some additional benefit. Given the degree of bladder distention noted upon Canales catheter placement, I am concerned he has an atonic bladder. I would thus suggest that he be discharged home with the Canales catheter, and arrangements will be made for him to undergo urodynamic testing and cystoscopy in our office as an outpatient. Time with Patient: Greater than 30
--- NOTE | 2024-05-28 11:31 | P.PN ---
Subjective Progress Note Date: 05/28/24 This is a 59-year-old male patient with a history of obstructive sleep apnea ma intained on CPAP, mild intermittent chronic bronchial asthma, lifelong non- smoker, hypertension, hyperlipidemia, diabetes mellitus, diabetic neuropathy, chronic kidney disease stage III, coronary artery disease with previous stents and subsequent bypass grafting surgery. He presented here back on May 05, 2024 with complaints of shortness of breath, he was treated and the patient was discharged home on 05/17/2024 discharged after being treated for acute on top of chronic systolic heart failure and the patient also encountered an acute kidney injury due to cardiorenal syndrome related to his CHF. The patient was discharged home on Lasix 40 mg p.o. twice a day, and he is also maintained on C oreg 25 mg p.o. twice a day, Farxiga 10 mg p.o. daily, hydralazine 25 mg p.o. 3 times daily. He is on Lantus insulin in addition to metformin for diabetes mellitus and he also takes a combination of Lipitor and Zetia for chronic hyperlipidemia. He is on anticoagulation with Eliquis regarding paroxysmal atrial fibrillation. His current rhythm remains sinus. Few days following his discharge, the patient became again progressively more short of breath. There is worsening in lower extremity edema. There was also increase in scrotal edema. Based on that, the patient presented to the hospital and the patient was admitted for acute decompensated heart failure. The white cell count of 12.1, hemoglobin 12 and a platelet count is 136. BUN is 37 with a creatinine of 1.36 and a sodium level at 135 with a potassium level is at 3. Blood sugars at 256. UA is showing +2 protein plus for glucose and there is a possibility of diabetic nephropathy/nephrotic syndrome. proBNP level is 13,000. Thyroid function test normal. LFTs show mild elevation of the alkaline phosphatase, ALT is at 83 with an AST of 42. Magnesium is at 1.8. Coagulation profile shows an INR of 1.3 with a PT of 13.6 and a PTT of 26. The patient remains on room air oxygen. Currently is on Lasix 40 mg IV every 12 hours. Rest of the home medication resumed. He is also on Aldactone 25 mg p.o. daily. He was started on empiric antibiotic coverage with IV Zosyn. 05/23/2024, slightly improved in terms of volume status. Continues to have excessive scrotal edema lower extremity edema. Still on IV Lasix 40 mg every 24 hours. Fluid balance is negative. The creatinine currently is up to 1.9 with a BUN of 39. Sodium is at 137, potassium level is at 3.4. White cell count of 10.7. The patient remains on room air oxygen. No significant shortness of breath. No fever chills or night sweats. Remains on Aldactone. Remains on Lantus insulin 28 units along with 5 units with meals. Rest of the medications are essentially unchanged. 05/24/2024, the patient is being seen for a follow-up.. Continues to diurese and the patient remains on Lasix 40 mg IV every 12 hours. Fluid balance remains negative and the patient has been in -2.8 L negative fluid balance and the patient is producing additional 1 L since earlier this morning. Creatinine remained stable at 1.9. BUN is at 39. Sodium levels at 139, the white cell count of 3.7 with a hemoglobin of 11.1. A repeat chest x-ray was done today and shows similar CHF findings with pulm vascular congestion. Ultrasound abdomen was also done yesterday and it showed no significant ascites. Continues to have scrotal edema. Remains on room air oxygen. No other significant events overnight. 05/25/2024, patient remains on room air oxygen. Continues to complain of significant edema specially lower extremity and scrotal area. However, the patient continues to produce excellent urine output while being on IV Lasix. He is at least 5 L and a negative fluid balance over the past 24 hours. His electrolytes are being monitored closely. He remains on Lasix 40 mg IV every 12 hours. He is also on Aldactone 50 mg on a daily basis. No other new complaints otherwise for now. Blood work shows a white cell count of 9.2, hemoglobin of 11 and a platelet count of 131. BUN is 41 with a creatinine of 2.1 and a sodium is at 135 and a potassium level is 3.7. 05/26/2024, the patient remains on room air oxygen. Continues to diurese with IV Lasix. He is running a low-grade fever of 100.8. He is on room air oxygen with a pulse ox of 95%. He is 7 L negative over the past 24 hours. Edema is improving and the patient has lost approximately 6 kg over the past few days. The white cell count is at 10 hemoglobin 12.4 and platelet count of 154. BUN 46 with a creatinine of 2.2. Sodium levels at 135. Remains on IV Zosyn. Remains on Aldactone 50 mg p.o. daily. Remains on Zaroxolyn 2.5 mg p.o. daily. Remains on IV Lasix 40 mg IV every 12 hours. Rest of the medications are essentially unchanged. Cultures were negative. 05/27/2024, patient is being seen for a follow-up. On today's evaluation, the patient is doing well. No new complaints. Significant improvement in volume status and lower extremity edema. Scrotal edema is also subsided. The fluid balance has been -6.2 L over the past 24 hours and we have also noted some increase in the creatinine level. Based on that, IV Lasix will be discontinued. For now, the patient will be kept on Lasix 40 mg p.o. daily and Aldactone 50 mg p.o. daily. No significant chest pain or shortness of breath. BUN is 48 with a creatinine of 2.8. Sodium level is at 137 and a potassium level is at 4.1. The white cell count is at 8.6 with a hemoglobin of 12.2. Nephrology is on the case. As stated, edema is improved considerably. Canales catheter still in place. Denies having any new complaints. No encephalopathy. No chest pain. He is currently afebrile. He is on room air oxygen. IV antibiotics has been discontinued and the patient remains on anticoagulation with Eliquis. He remains on insulin 5 units with meals and NovoLog/scale coverage. On 05/28/2024, the patient is stable. Awaiting follow-up renal function as the patient remains on a combination of Aldactone and Lasix. No significant edema lower extremities he remains on room air oxygen. Scrotal edema is also improved. Patient is currently on oral Augmentin. Blood cultures been negative. Afebrile and hemodynamically stable on room air oxygen with a pulse ox of 92%. Nephrology on the case. Objective - Vital Signs Vital signs: Vital Signs Temp 98.9 F 05/28/24 07:00 Pulse 68 05/28/24 07:00 Resp 18 05/28/24 07:00 BP 131/78 05/28/24 07:00 Pulse Ox 92 L 05/28/24 07:00 FiO2 Intake & Output 05/27/24 05/28/24 05/28/24 18:59 06:59 18:59 Intake Total 800 Output Total 3700 2600 Balance -3700 -1800 Weight 78 kg Intake: Oral 800 Output: Urine 3700 2600 Other: Voiding Method Indwelling Catheter Indwelling Catheter # Bowel Movements 0 - Exam GENERAL EXAM: Revealed 59-year-old white male in no distress, on room air. HEAD: Normocephalic. EYES: Normal reaction of pupils, equal size. NOSE: Clear with pink turbinates. THROAT: No erythema or exudates. NECK: No masses, no JVD. CHEST: No chest wall deformity. LUNGS: Clear throughout no crackles rhonchi or wheezes CVS: S1 and S2 normal with no audible murmur, regular rhythm. ABDOMEN: No hepatosplenomegaly, normal bowel sounds, no guarding or rigidity. SKIN: No rashes CENTRAL NERVOUS SYSTEM: No focal deficits, tone is normal in all 4 extremities. EXTREMITIES: There is marked improvement in lower extremity and scrotal edema Psychiatric: Depressed mood flat affect normal mental status. - Labs CBC & Chem 7: 05/28/24 04:25 05/27/24 05:23 Labs: Abnormal Lab Results - Last 24 Hours (Table) 05/27/24 05/27/24 05/27/24 Range/Units 05:23 10:50 16:15 Chloride 95 L (96-109) mmol/L Anion Gap 13.00 H (4.00-12.00) mmol/L BUN 48.9 H (9.0-27.0) mg/dL Creatinine 2.8 H (0.6-1.5) mg/dL Est GFR (CKD-EPI) 25 L (>=60) Glucose 183 H (70-110) mg/dL POC Glucose (mg/dL) 325 H 229 H (70-110) mg/dL Calcium 8.4 L (8.7-10.3) mg/dL Alkaline Phosphatase 178 H (41-126) U/L Total Protein 5.8 L (6.2-8.2) g/dL Albumin 3.1 L (3.8-4.9) g/dL Albumin/Globulin Ratio 1.15 L (1.60-3.17) Ratio 05/27/24 05/28/24 Range/Units 20:56 06:21 Chloride (96-109) mmol/L Anion Gap (4.00-12.00) mmol/L BUN (9.0-27.0) mg/dL Creatinine (0.6-1.5) mg/dL Est GFR (CKD-EPI) (>=60) Glucose (70-110) mg/dL POC Glucose (mg/dL) 164 H 222 H (70-110) mg/dL Calcium (8.7-10.3) mg/dL Alkaline Phosphatase (41-126) U/L Total Protein (6.2-8.2) g/dL Albumin (3.8-4.9) g/dL Albumin/Globulin Ratio (1.60-3.17) Ratio Microbiology - Last 24 Hours (Table) 05/22/24 07:38 Blood Culture - Final Blood Assessment and Plan Plan: Acute exacerbation of chronic systolic congestive heart failure with ejection fraction 40 to 45% based on echocardiogram that was done on 06/07/2023. The patient has moderate LV systolic dysfunction and moderate to severe pulmonary hypertension and moderate degree of posteriorly directed mitral regurgitation and severe tricuspid regurgitation consistent with valvular heart disease. Estimated right ventricular systolic pressure was 57 mmHg. Volume status has been optimized with diuresis. Improving lower extremity edema. Improvement in the scrotal edema. Low-grade fever, resolved and the patient is currently off antibiotics Bilateral pleural effusions/CHF/fluid overload MIld intermittent asthma Chronic stage III kidney disease, creatinine slightly elevated compared to yesterday due to diuresis. Creatinine is being monitored closely. There is some elevation in creatinine related to diuresis. Diabetes mellitus, type II Diabetic neuropathy with +2 protein in the UA. Rule out underlying nephrosis Coronary artery disease with previous stents/coronary artery bypass grafting CHF with ischemic cardiomyopathy, EF of around 40 to 45%, moderate-severe pulm hypertension, mitral regurgitation and severe tricuspid regurgitation and pulmonary hypertension. Hyperlipidemia Hypertension Chronic lower extremity edema, improving and the patient is a negative fluid balance of at least 7 L over the past 24 hours. Scrotal edema Indeterminate hypoechoic lesion involving the right kidney measuring 1.3 cm in size that needs to be further worked up on outpatient basis with an MRI. The patient also has a simple cyst involving the left kidney measuring 1.9 cm in size. Recommendation: Awaiting follow-up labs from today regarding his renal function. Meanwhile, the patient remains on 40 mg of Lasix on a daily basis in combination with Aldactone 50 mg p.o. daily. Patient currently on room air oxygen Monitor renal function Monitor fever pattern Continue Coreg, Farxiga Continue hydralazine Continue insulin Lantus 26 units along with sliding scale coverage and 5 units of NovoLog with meals Monitor volume status and this has improved considerably. Monitor electrolytes and renal function Will continue to follow.
[2024-05-28 12:03] LABS: Magnesium 2.2 mg/dL (1.5-2.4)
[2024-05-28 12:11] LABS: ALT 27 U/L (10-49); AST 23 U/L (14-35); Albumin 3.1 g/dL (3.8-4.9); Albumin/Globulin Ratio 1.07 Ratio (1.60-3.17); Alkaline Phosphatase 178 U/L (41-126); BUN/Creat Ratio 19.61 Ratio (12.00-20.00); Blood Urea Nitrogen 54.9 mg/dL (9.0-27.0); Calcium 8.3 mg/dL (8.7-10.3); Carbon Dioxide 26.5 mmol/L (21.6-31.8); Chloride 93 mmol/L (96-109); Globulin 2.9 g/dL (1.6-3.3); Glucose 207 mg/dL (70-110); Potassium 4.2 mmol/L (3.5-5.5); Sodium 134 mmol/L (135-145)
--- NOTE | 2024-05-28 12:32 | P.PN ---
Subjective Progress Note Date: 05/28/24 HISTORY OF PRESENT ILLNESS: This is a 59-year-old male patient of rosita and Dr. Ga with past medical history of coronary artery disease status post 6 vessel CABG 2006 with MAE to LAD, saphenous venous graft to the PDA, saphenous venous graft to the obtuse marginal one, radial artery to the obtuse marginal branch 2 and saphenous venous graft to the obtuse marginal 3 followed by heart catheterization with PCI and stent of the saphenous venous graft to the RCA in 2015 at which time he pres ented with non-ST elevated myocardial infarction. Most recent cardiac catheterization was performed on 04/10/2022 which revealed severe triple-vessel coronary artery disease with a patent ramus intermediate, patent SVG to the OM, patent MAE to the LAD, and occluded saphenous vein graft to the RCA which is chronic from before. Medical therapy was advised at that time. History of hypertension, hypertensive cardiovascular disease with left ventricular hypertrophy, hyperlipidemia, ischemic cardiomyopathy, paroxysmal atrial fibrillation, currently on Eliquis, diabetes mellitus type 2 with diabetic polyneuropathy, hyperlipidemia, asthma, obstructive sleep apnea on CPAP, chronic low back pain, DVT in the past, patient was recently hospitalized at [facility] between 05/05/2024 05/17/2024 after he was admitted for acute hypoxemic respiratory failure due to acute systolic heart failure as well as acute bronchitis was seen in consultation by pulmonary as well as by cardiology he ended up having significant acute kidney injury due to cardiorenal syndrome as well as vasomotor nephropathy, he started to recover from that, patient was supposed to come to see him in the office this week, instead he showed up in the emergency department with increased swelling both lower extremities and in creased shortness of breath, as well as increased coughing, his chest x-ray showed evidence of cardiomegaly pulmonary vascular congestion as well as right lower lobe infiltrate could be an early gram-negative pneumonia, versus atelectasis, patient was started on IV diuretics, he was admitted to the hospital for evaluation by cardiology, nephrology, as well as pulmonary medicine. Patient has significant scrotal edema, underwent ultrasound of the scrotum that showed evidence of bilateral hydrocele, with left varicocele no evidence of torsion 05/23: Patient sitting up in bed in no apparent distress, he denies any chest pain, he is less short of breath, he continues to have a significant swelling in the abdominal wall along with both lower extremities, with pitting edema, diuresing very well through the Canales catheter, has been on Lasix 40 mg IV push every 12 hours along with spironolactone, will follow-up with the patient very closely, monitor his kidney function, patient also has been started on Zosyn 3.375 g piggyback every 8 hours for possible gram-negative pneumonia as well pulmonary is following as well physical therapy evaluation, continue to follow- up with the patient very closely continue to follow-up with the labs including CBC CMP magnesium over the next 24 hours 05/24: Patient continues to have significant edema in the abdominal wall as well as upper thighs and bilateral lower extremities, he has Canales catheter in place, he has scrotal edema, he has foreskin edema as well, he is complain of significant pain in the scrotal area, he has been started on pain management as well as nystatin powder to alleviate some of the skin infection, he was switched yesterday again to frusemide 40 mg IV push every 12 hours because of significant weight gain, he was started on spironolactone 50 mg once every day, Farxiga 5 mg once every day, lipid better today but not a whole lot, will switch the patient to inpatient at this point in time due to acute systolic heart failure. 05/25: Patient is sitting up in bed he continues to have significant edema in the abdominal wall, both lower extremities a bit better than yesterday, continues to have significant scrotal edema, he has a Canales catheter in place with significant for screening edema, his skin is splitting in the scrotal area, he has been getting nystatin powder as well, continue current pain management, continue Lasix 40 mg IV push every 12 hours, continue Farxiga 5 mg orally once every day, spironolactone 50 mg once every day, follow-up with the patient very closely, nephrology along with cardiology and pulmonary medicine is following, he has been responding very well to the Zosyn 3.375 g piggyback every 8 hours, will continue with that as well monitor the patient kidney function test very closely, as he is getting a bit worse than yesterday 05/26: Patient is sitting up in bed is feeling a bit better today, he swelling is much better than yesterday, he continues to have +1-2 edema in both lower extremities, continue to have significant swelling in the scrotal area, better than yesterday as well, better weeping in both lower extremities in his groin area, has been on Zosyn along with Lasix 40 mg IV push every 12 hours, continue patient on Zaroxolyn 2.5 mg once every day, continue monitor input and output and daily weight, monitor the patient's electrolytes, monitor the BUN and creatinine as well, nephrology has been following, along with pulmonary medicine, will follow-up with the patient very closely. 45: Patient is sitting up in bed in no apparent distress, his swelling is much better today, his creatinine is up to 2.8, he was seen earlier by nephrology who recommended to switch the patient to oral Lasix 40 mg once every day, discontinue Zaroxolyn, continue with Farxiga 5 mg once every day, monitor the patient input and output and daily weight, increase activity level discontinue Zosyn at this time, start the patient on amoxicillin/clavulanate 500/125 mg orally twice every day for 1 more day. 6: Patient sitting up in bed in no apparent distress, he is feeling a bit better today, he did have 1.2 L of urine, had a Canales catheter placed and again he was seen by Dr. Alanis, recommendation to continue Canales catheter, patient will be kept in the hospital for another 24 hours, hopefully will be discharged home in the next 24 hours, follow-up with us as an outpatient. REVIEW OF SYSTEMS: Constitutional: No documented fever, no chills, no night sweats. No weight change. Positive for weakness, positive for fatigue, no lethargy. No daytime sleepiness. HEENT: No headache. No blurred vision or double vision, no loss of vision. No loss of Hearing, no ringing in the ears, no dizziness. No nasal drainage or congestion. No epistaxis. No sore throat. Lungs: positive for shortness of breath, occasional cough, minimal sputum production. no wheezing. Reports dyspnea with activity. Cardiovascular: no chest pain, positive for lower extremity edema. No palpitations. No paroxysmal nocturnal dyspnea. No orthopnea. positive for lightheadedness or dizziness. No syncopal episodes. Abdominal: Reports no abdominal pain. no nausea, vomiting. No diarrhea. No constipation. No bloody or tarry stools reports loss of appetite. Genitourinary: No dysuria, increased frequency, urgency. No urinary retention. Musculoskeletal: No myalgias. positive for muscle weakness, no gait dysfunction, frequent falls. No back pain. No neck pain. Integumentary: scabbed wounds to left caballero , no lesions. No rash or pruritus. No unusual bruising. No change in hair or nails. Neurologic: No aphasia. Minimal facial droop. No change in mentation. No head injury. No headache, minimal drift. Psychiatric: positive for depression. No anxiety. No mood swings. Endocrine: abnormal blood sugars. No weight change. PHYSICAL EXAMINATION: General: 59-year-old male laying down in mild distress. HEENT: Head is atraumatic, normocephalic, pupils were equal round reactive to light and recommendation, extraocular muscle movement were intact, sclera nonicteric, conjunctivae were pale, mucous membranes of the mouth are somewhat dry. Neck: Supple, no JVP, normal carotid upstroke bilaterally, no lymphadenopathy. Chest: Decreased breath sounds at the bases, few rhonchi no expirratory wheezes,, no chest wall tenderness, no intercostal retractions. Heart: First heart sound is normal, second heart sounds normal, irregularly irregular, there is systolic ejection murmur 2/6 located in the left sternal border. Abdomen: Soft, nontender, nondistended, positive bowel sounds, there is no hepatosplenomegaly positive for abdominal wall edema positive for scrotal edema. Extremities: There is +3 edema no calf tenderness DP +1 bilaterally, there is scrotal edema as well. Neurologic examination: Patient is awake alert and oriented X 3, cranial nerves II-12 appear grossly intact, muscle power were 4 out of 5 in upper extremities and 4 out of 5 in bilateral lower extremities, deep tendon reflexes normal bilaterally. Minimal right facial droop, and right leg weakness. ASSESSMENT AND PLAN: 1. Acute on chronic systolic heart failure . Patient was switched to Lasix 40 mg orally once every day, discontinue Zaroxolyn, continue Farxiga 5 mg once every day, continue patient on carvedilol 25 mg orally twice every day, hydralazine 25 mg orally 3 times every day, monitor input and output and daily weight. 2. right lower lobe infiltrate likely gram-negative pneumonia discontinue Zosyn and start the patient on amoxicillin/clavulanate 500/125 mg orally twice every day for 24 hours. 3. Acute kidney injury due to cardiorenal syndrome. discontinue IV Lasix continue Lasix 40 mg once every day repeat labs tomorrow morning for, monitor the patient input output and daily weight, Canales catheter is in. 4. Hypertension and hypertensive cardiovascular disease. Continue patient on Carvedilol 25 mg orally twice every day, continue with Hydralazine, orally 3 times every as well and monitor BP very closely. 5. Diabetes mellitus type 2. Continue patient on Lantus 26 units at bedtime along with NovoLog 5 units before each meal plus the sliding scale insulin. Con tinue Farxiga 5 mg orally once every day, check blood glucose level before each meal and at bedtime. 6. Coronary artery disease status post CABG 6 as well as PCI in the past. Continue patient on ASA 81 mg once every day, Carvedilol 25 mg orally twice every day, continue patient on atorvastatin 80 mg orally once every day, continue Zetia 10 mg orally once every day. 7. Hyperlipidemia. Continue patient on atorvastatin 80 mg once every day, continue Zetia 10 mg orally once every day, monitor lipid panel, keep LDL 55-70. 8. Diabetic polyneuropathy. Continue patient on gabapentin 300 mg orally at bedtime. 9. Obstructive sleep apnea. Patient does have a CPAP at home. 10. Chronic systolic heart failure. Continue with Furosemide 40 mg orally once every day, Farxiga 5 mg orally once every day, carvedilol 25 mg orally twice every day. 11. Paroxysmal atrial fibrillation . Continue patient on Coreg 25 mg orally twice every day, Eliquis 5 mg po bid. 12. Enlarged prostate with urinary retention. Continue Canales catheter, continue Flomax 0.4 mg once every day patient did retain at least 1.2 L of urine, with Dr. Marti saw the patient again and recommended for the patient to have a Canales catheter and follow-up with him as an outpatient. 13. DVT prophylaxis. Continue Eliquis 5 mg orally twice every day. 14. GI prophylaxis. Continue Protonix 40 mg orally once every day. 15. History of CVA in the past recovered well will continue with Atorvastatin 80 mg po daily and Eliquis for life 16. likely home in a.m. Objective - Vital Signs Vital signs: Vital Signs Temp 98.9 F 05/28/24 07:00 Pulse 68 05/28/24 07:00 Resp 18 05/28/24 07:00 BP 131/78 05/28/24 07:00 Pulse Ox 92 L 05/28/24 07:00 FiO2 Intake & Output 05/27/24 05/28/24 05/28/24 18:59 06:59 18:59 Intake Total 800 Output Total 3700 2600 Balance -3700 -1800 Weight 78 kg Intake: Oral 800 Output: Urine 3700 2600 Other: Voiding Method Indwelling Catheter Indwelling Catheter Indwelling Catheter # Bowel Movements 0 - Labs CBC & Chem 7: 05/28/24 04:25 05/28/24 04:25 Labs: Abnormal Lab Results - Last 24 Hours (Table) 05/27/24 05/27/24 05/27/24 Range/Units 10:50 16:15 20:56 POC Glucose (mg/dL) 325 H 229 H 164 H (70-110) mg/dL 05/28/24 05/28/24 Range/Units 06:21 10:26 POC Glucose (mg/dL) 222 H 294 H (70-110) mg/dL Microbiology - Last 24 Hours (Table) 05/22/24 07:38 Blood Culture - Final Blood
[2024-05-28 16:52] LABS: Glucose,Whole Blood 225 mg/dL (70-110)
[2024-05-28 19:42] LABS: Glucose,Whole Blood 278 mg/dL (70-110)
[2024-05-29 05:56] LABS: Glucose,Whole Blood 147 mg/dL (70-110)
[2024-05-29 08:26] LABS: ALT 29 U/L (10-49); AST 25 U/L (14-35); Albumin 3.2 g/dL (3.8-4.9); Albumin/Globulin Ratio 1.14 Ratio (1.60-3.17); Alkaline Phosphatase 185 U/L (41-126); BUN/Creat Ratio 24.32 Ratio (12.00-20.00); Basophils # (A) 0.06 X 10*3/uL (0.00-0.10); Basophils % (A) 0.7 %; Blood Urea Nitrogen 60.8 mg/dL (9.0-27.0); Calcium 8.4 mg/dL (8.7-10.3); Chloride 95 mmol/L (96-109); Eosinophils # (A) 0.53 X 10*3/uL (0.04-0.35); Globulin 2.8 g/dL (1.6-3.3); Glucose 168 mg/dL (70-110); HCT 39.7 % (39.6-50.0); HGB 12.6 g/dL (13.0-17.0); Lymphocytes # (A) 0.58 X 10*3/uL (0.90-5.00); Lymphocytes % (A) 6.6 %; MCH 25.6 pg (27.0-32.0); MCHC 31.7 g/dL (32.0-37.0); MCV 80.5 FL (80.0-97.0); Magnesium 2.4 mg/dL (1.5-2.4); Mean Platelet Volume 11.3 FL (9.5-12.2); Monocytes # (A) 1.32 X 10*3/uL (0.20-1.00); Monocytes % (A) 15.1 %; NRBC Per 100 WBC 0 X 10*3/uL (0.00-0.01); Neutrophils # (A) 6.24 X 10*3/uL (1.80-7.70); Neutrophils % (A) 71.1 %; Platelet Count 262 X 10*3/uL (140-440); Potassium 4.8 mmol/L (3.5-5.5); RBC 4.93 X 10*6/uL (4.40-5.60); RDW 15.2 % (11.5-14.5); Sodium 132 mmol/L (135-145); Total Bilirubin 0.7 mg/dL (0.3-1.2); WBC 8.77 X 10*3/uL (4.50-10.00)
--- NOTE | 2024-05-29 10:34 | P.PN ---
Subjective Patient is seen in follow-up for acute kidney injury and volume overload. Edema improved. Renal function better. On oral Lasix. Also on Aldactone. Has Canales catheter for urinary retention. Denies chest pain or shortness of breath. Vital signs are stable. General: No acute distress. HEENT: Head exam is unremarkable. LUNGS: No audible rhonchi or wheezes. HEART: Rate and Rhythm are regular. ABDOMEN: Nontender. EXTREMITITES: No edema. Objective - Vital Signs Vital signs: Vital Signs Temp 98.2 F 05/29/24 07:11 Pulse 63 05/29/24 07:11 Resp 16 05/29/24 07:11 BP 144/70 05/29/24 07:11 Pulse Ox 94 L 05/29/24 07:11 FiO2 Intake & Output 05/28/24 05/29/24 05/29/24 18:59 06:59 18:59 Output Total 1200 1800 Balance -1200 -1800 Weight 78 kg Output: Urine 1200 1800 Other: Voiding Method Indwelling Catheter Indwelling Catheter Indwelling Catheter # Bowel Movements 1 1 - Labs CBC & Chem 7: 05/29/24 03:55 05/29/24 03:55 Labs: Abnormal Lab Results - Last 24 Hours (Table) 05/28/24 05/28/24 05/28/24 Range/Units 04: 04: 16:51 Hgb 12.0 L (13.0-17.0) g/dL Hct 37.1 L (39.6-50.0) % MCV 79.3 L (80.0-97.0) FL MCH 25.6 L (27.0-32.0) pg MCHC (32.0-37.0) g/dL RDW 15.5 H (11.5-14.5) % Lymphocytes # 0.64 L (0.90-5.00) X 10*3/uL Monocytes # 1.09 H (0.20-1.00) X 10*3/uL Eosinophils # 0.62 H (0.04-0.35) X 10*3/uL Sodium 134 L (135-145) mmol/L Chloride 93 L (96-109) mmol/L Anion Gap 14.50 H (4.00-12.00) mmol/L BUN 54.9 H (9.0-27.0) mg/dL Creatinine 2.8 H (0.6-1.5) mg/dL Est GFR (CKD-EPI) 25 L (>=60) BUN/Creatinine Ratio (12.00-20.00) Ratio Glucose 207 H (70-110) mg/dL POC Glucose (mg/dL) 225 H (70-110) mg/dL Calcium 8.3 L (8.7-10.3) mg/dL Alkaline Phosphatase 178 H (41-126) U/L Total Protein 6.0 L (6.2-8.2) g/dL Albumin 3.1 L (3.8-4.9) g/dL Albumin/Globulin Ratio 1.07 L (1.60-3.17) Ratio 05/28/24 05/29/24 05/29/24 Range/Units 19:40 03:55 03:55 Hgb 12.6 L (13.0-17.0) g/dL Hct (39.6-50.0) % MCV (80.0-97.0) FL MCH 25.6 L (27.0-32.0) pg MCHC 31.7 L (32.0-37.0) g/dL RDW 15.2 H (11.5-14.5) % Lymphocytes # 0.58 L (0.90-5.00) X 10*3/uL Monocytes # 1.32 H (0.20-1.00) X 10*3/uL Eosinophils # 0.53 H (0.04-0.35) X 10*3/uL Sodium 132 L (135-145) mmol/L Chloride 95 L (96-109) mmol/L Anion Gap (4.00-12.00) mmol/L BUN 60.8 H (9.0-27.0) mg/dL Creatinine 2.5 H (0.6-1.5) mg/dL Est GFR (CKD-EPI) 29 L (>=60) BUN/Creatinine Ratio 24.32 H (12.00-20.00) Ratio Glucose 168 H (70-110) mg/dL POC Glucose (mg/dL) 278 H (70-110) mg/dL Calcium 8.4 L (8.7-10.3) mg/dL Alkaline Phosphatase 185 H (41-126) U/L Total Protein 6.0 L (6.2-8.2) g/dL Albumin 3.2 L (3.8-4.9) g/dL Albumin/Globulin Ratio 1.14 L (1.60-3.17) Ratio 05/29/ Range/Units 05:55 Hgb (13.0-17.0) g/dL Hct (39.6-50.0) % MCV (80.0-97.0) FL MCH (27.0-32.0) pg MCHC (32.0-37.0) g/dL RDW (11.5-14.5) % Lymphocytes # (0.90-5.00) X 10*3/uL Monocytes # (0.20-1.00) X 10*3/uL Eosinophils # (0.04-0.35) X 10*3/uL Sodium (135-145) mmol/L Chloride (96-109) mmol/L Anion Gap (4.00-12.00) mmol/L BUN (9.0-27.0) mg/dL Creatinine (0.6-1.5) mg/dL Est GFR (CKD-EPI) (>=60) BUN/Creatinine Ratio (12.00-20.00) Ratio Glucose (70-110) mg/dL POC Glucose (mg/dL) 147 H (70-110) mg/dL Calcium (8.7-10.3) mg/dL Alkaline Phosphatase (41-126) U/L Total Protein (6.2-8.2) g/dL Albumin (3.8-4.9) g/dL Albumin/Globulin Ratio (1.60-3.17) Ratio Assessment and Plan Plan: Assessment: 1. Acute kidney injury secondary to ATN secondary to cardiorenal syndrome and urinary retention.. Renal function better. Creatinine 2.5. 2. Volume overload. Improved with diuresis. 3. Coronary artery disease status post CABG. 4. Urinary retention status post Canales catheter placement. On Flomax. Urology following. Patient to be discharged with Canales catheter. 5. Acute on chronic systolic CHF with ejection fraction of 40 to 45%. 6. Hypokalemia from diuresis. Replaced. Better. Plan: Maintain oral Lasix. Also on Aldactone. Zaroxolyn discontinued. Maintain SGLT2 inhibitor. Avoid nephrotoxins. Continue to monitor renal function and urine output. Follow-up outpatient 1 week postdischarge.
[2024-05-29 11:32] LABS: Glucose,Whole Blood 301 mg/dL (70-110)
[2024-05-29 16:38] LABS: Glucose,Whole Blood 225 mg/dL (70-110)
[2024-05-29 20:17] LABS: Glucose,Whole Blood 227 mg/dL (70-110)
--- NOTE | 2024-05-29 20:44 | P.PN ---
Subjective Progress Note Date: 05/29/24 HISTORY OF PRESENT ILLNESS: This is a 59-year-old male patient of rosita and Dr. Ga with past medical history of coronary artery disease status post 6 vessel CABG 2006 with MAE to LAD, saphenous venous graft to the PDA, saphenous venous graft to the obtuse marginal one, radial artery to the obtuse marginal branch 2 and saphenous venous graft to the obtuse marginal 3 followed by heart catheterization with PCI and stent of the saphenous venous graft to the RCA in 2015 at which time he pres ented with non-ST elevated myocardial infarction. Most recent cardiac catheterization was performed on 04/10/2022 which revealed severe triple-vessel coronary artery disease with a patent ramus intermediate, patent SVG to the OM, patent MAE to the LAD, and occluded saphenous vein graft to the RCA which is chronic from before. Medical therapy was advised at that time. History of hypertension, hypertensive cardiovascular disease with left ventricular hypertrophy, hyperlipidemia, ischemic cardiomyopathy, paroxysmal atrial fibrillation, currently on Eliquis, diabetes mellitus type 2 with diabetic polyneuropathy, hyperlipidemia, asthma, obstructive sleep apnea on CPAP, chronic low back pain, DVT in the past, patient was recently hospitalized at [facility] between 05/05/2024 05/17/2024 after he was admitted for acute hypoxemic respiratory failure due to acute systolic heart failure as well as acute bronchitis was seen in consultation by pulmonary as well as by cardiology he ended up having significant acute kidney injury due to cardiorenal syndrome as well as vasomotor nephropathy, he started to recover from that, patient was supposed to come to see him in the office this week, instead he showed up in the emergency department with increased swelling both lower extremities and in creased shortness of breath, as well as increased coughing, his chest x-ray showed evidence of cardiomegaly pulmonary vascular congestion as well as right lower lobe infiltrate could be an early gram-negative pneumonia, versus atelectasis, patient was started on IV diuretics, he was admitted to the hospital for evaluation by cardiology, nephrology, as well as pulmonary medicine. Patient has significant scrotal edema, underwent ultrasound of the scrotum that showed evidence of bilateral hydrocele, with left varicocele no evidence of torsion 05/23: Patient sitting up in bed in no apparent distress, he denies any chest pain, he is less short of breath, he continues to have a significant swelling in the abdominal wall along with both lower extremities, with pitting edema, diuresing very well through the Canales catheter, has been on Lasix 40 mg IV push every 12 hours along with spironolactone, will follow-up with the patient very closely, monitor his kidney function, patient also has been started on Zosyn 3.375 g piggyback every 8 hours for possible gram-negative pneumonia as well pulmonary is following as well physical therapy evaluation, continue to follow- up with the patient very closely continue to follow-up with the labs including CBC CMP magnesium over the next 24 hours 05/24: Patient continues to have significant edema in the abdominal wall as well as upper thighs and bilateral lower extremities, he has Canales catheter in place, he has scrotal edema, he has foreskin edema as well, he is complain of significant pain in the scrotal area, he has been started on pain management as well as nystatin powder to alleviate some of the skin infection, he was switched yesterday again to frusemide 40 mg IV push every 12 hours because of significant weight gain, he was started on spironolactone 50 mg once every day, Farxiga 5 mg once every day, lipid better today but not a whole lot, will switch the patient to inpatient at this point in time due to acute systolic heart failure. 05/25: Patient is sitting up in bed he continues to have significant edema in the abdominal wall, both lower extremities a bit better than yesterday, continues to have significant scrotal edema, he has a Canales catheter in place with significant for screening edema, his skin is splitting in the scrotal area, he has been getting nystatin powder as well, continue current pain management, continue Lasix 40 mg IV push every 12 hours, continue Farxiga 5 mg orally once every day, spironolactone 50 mg once every day, follow-up with the patient very closely, nephrology along with cardiology and pulmonary medicine is following, he has been responding very well to the Zosyn 3.375 g piggyback every 8 hours, will continue with that as well monitor the patient kidney function test very closely, as he is getting a bit worse than yesterday 05/26: Patient is sitting up in bed is feeling a bit better today, he swelling is much better than yesterday, he continues to have +1-2 edema in both lower extremities, continue to have significant swelling in the scrotal area, better than yesterday as well, better weeping in both lower extremities in his groin area, has been on Zosyn along with Lasix 40 mg IV push every 12 hours, continue patient on Zaroxolyn 2.5 mg once every day, continue monitor input and output and daily weight, monitor the patient's electrolytes, monitor the BUN and creatinine as well, nephrology has been following, along with pulmonary medicine, will follow-up with the patient very closely. 05/27: Patient is sitting up in bed in no apparent distress, his swelling is much better today, his creatinine is up to 2.8, he was seen earlier by nephrology who recommended to switch the patient to oral Lasix 40 mg once every day, discontinue Zaroxolyn, continue with Farxiga 5 mg once every day, monitor the patient input and output and daily weight, increase activity level discontinue Zosyn at this time, start the patient on amoxicillin/clavulanate 500/125 mg orally twice every day for 1 more day. 05/28: Patient sitting up in bed in no apparent distress, he is feeling a bit better today, he did have 1.2 L of urine, had a Canales catheter placed and again he was seen by Dr. Alanis, recommendation to continue Canales catheter, patient will be kept in the hospital for another 24 hours, hopefully will be discharged home in the next 24 hours, follow-up with us as an outpatient. 05/29: Patient is lying down in bed no apparent distress, he is feeling weak today and he is asking if it will be possible to send him to ECF for PT/OT, his swelling is much better and scrotal edema is better, we will continue with current treatment plan and we will continue with Furosemide , Farxiga and increa se activity and we will keep Canales catheter for 1 week then he will follow up with Urology, meanwhile continue with Flomax 0.4 mg po daily , await Prior Authorization for ECF referral REVIEW OF SYSTEMS: Constitutional: No documented fever, no chills, no night sweats. No weight change. Positive for weakness, positive for fatigue, no lethargy. No daytime sleepiness. HEENT: No headache. No blurred vision or double vision, no loss of vision. No loss of Hearing, no ringing in the ears, no dizziness. No nasal drainage or congestion. No epistaxis. No sore throat. Lungs: positive for shortness of breath, occasional cough, minimal no sputum production. no wheezing. Reports dyspnea with activity. Cardiovascular: no chest pain, positive for lower extremity edema. No palpitations. No paroxysmal nocturnal dyspnea. No orthopnea. positive for lightheadedness or dizziness. No syncopal episodes. Abdominal: Reports no abdominal pain. no nausea, vomiting. No diarrhea. No constipation. No bloody or tarry stools reports loss of appetite. Genitourinary: No dysuria, increased frequency, urgency. No urinary retention. Musculoskeletal: No myalgias. positive for muscle weakness, no gait dysfunction, frequent falls. No back pain. No neck pain. Integumentary: no wounds , no lesions. No rash or pruritus. No unusual bruising. No change in hair or nails. Neurologic: No aphasia. Minimal facial droop. No change in mentation. No head injury. No headache, minimal drift. Psychiatric: positive for depression. No anxiety. No mood swings. Endocrine: abnormal blood sugars. No weight change. PHYSICAL EXAMINATION: General: 59-year-old male laying down in no distress HEENT: Head is atraumatic, normocephalic, pupils were equal round reactive to light and recommendation, extraocular muscle movement were intact, sclera nonicteric, conjunctivae were pale, mucous membranes of the mouth are somewhat dry. Neck: Supple, no JVP, normal carotid upstroke bilaterally, no lymphadenopathy. Chest: Decreased breath sounds at the bases, few rhonchi no expirratory whee zes,, no chest wall tenderness, no intercostal retractions. Heart: First heart sound is normal, second heart sounds normal, irregularly irregular, there is systolic ejection murmur 2/6 located in the left sternal border. Abdomen: Soft, nontender, nondistended, positive bowel sounds, there is no hepa tosplenomegaly positive for abdominal wall edema positive for scrotal edema. Extremities: There is +1 edema no calf tenderness DP +1 bilaterally, no scrotal edema Neurologic examination: Patient is awake alert and oriented X 3, cranial nerves II-12 appear grossly intact, muscle power were 4 out of 5 in upper extremities and 4 out of 5 in bilateral lower extremities, deep tendon reflexes normal bi laterally. Minimal right facial droop, and right leg weakness. ASSESSMENT AND PLAN: 1. Acute on chronic systolic heart failure . Continue Lasix 40 mg orally once every day, continue Farxiga 5 mg once every day, continue patient on carvedilol 25 mg orally twice every day, hydralazine 25 mg orally 3 times every day, monitor input and output and daily weight. 2. Right lower lobe infiltrate likely gram-negative pneumonia . continue with Amoxicilin-Clavulanate 500/125 mg po bid for 1 more day 3. Acute kidney injury due to cardiorenal syndrome. continue with Furosemide 40 mg po daily, Farxiga 5 mg po daily 4. Hypertension and hypertensive cardiovascular disease. Continue patient on Carvedilol 25 mg orally twice every day, continue with Hydralazine, orally 3 times every as well and monitor BP very closely. 5. Diabetes mellitus type 2. Continue patient on Lantus 26 units at bedtime along with NovoLog 5 units before each meal plus the sliding scale insulin. Continue Farxiga 5 mg orally once every day, check blood glucose level before each meal and at bedtime. 6. Coronary artery disease status post CABG 6 as well as PCI in the past. Continue patient on ASA 81 mg once every day, Carvedilol 25 mg orally twice every day, continue patient on atorvastatin 80 mg orally once every day, continue Zetia 10 mg orally once every day. 7. Hyperlipidemia. Continue patient on atorvastatin 80 mg once every day, continue Zetia 10 mg orally once every day, monitor lipid panel, keep LDL 55-70. 8. Diabetic polyneuropathy. Continue patient on gabapentin 300 mg orally at bedtime. 9. Obstructive sleep apnea. Patient does have a CPAP at home. 10. Chronic systolic heart failure. Continue with Furosemide 40 mg orally once every day, Farxiga 5 mg orally once every day, carvedilol 25 mg orally twice every day. 11. Paroxysmal atrial fibrillation . Continue patient on Coreg 25 mg orally twice every day, Eliquis 5 mg po bid. 12. Enlarged prostate with urinary retention. Continue Canales catheter, continue Flomax 0.4 mg once every day, keep Canales in and follow up with in 1 week 13. DVT prophylaxis. Continue Eliquis 5 mg orally twice every day. 14. GI prophylaxis. Continue Protonix 40 mg orally once every day. 15. History of CVA in the past recovered well will continue with Atorvastatin 80 mg po daily and Eliquis for life 16. Await Prior Auth for ECF Objective - Vital Signs Vital signs: Vital Signs Temp 97.7 F 05/29/24 12:51 Pulse 61 05/29/24 12:51 Resp 16 05/29/24 12:51 BP 126/67 05/29/24 12:51 Pulse Ox 97 05/29/24 12:51 FiO2 Intake & Output 05/28/24 05/29/24 05/29/24 18:59 06:59 18:59 Output Total 1200 1800 1000 Balance -1200 -1800 -1000 Weight 78 kg Output: Urine 1200 1800 1000 Other: Voiding Method Indwelling Catheter Indwelling Catheter Indwelling Catheter # Bowel Movements 1 1 - Labs CBC & Chem 7: 05/29/24 03:55 05/29/24 03:55 Labs: Abnormal Lab Results - Last 24 Hours (Table) 05/28/24 05/28/24 05/29/24 Range/Units 16:51 19:40 03:55 Hgb (13.0-17.0) g/dL MCH (27.0-32.0) pg MCHC (32.0-37.0) g/dL RDW (11.5-14.5) % Lymphocytes # (0.90-5.00) X 10*3/uL Monocytes # (0.20-1.00) X 10*3/uL Eosinophils # (0.04-0.35) X 10*3/uL Sodium 132 L (135-145) mmol/L Chloride 95 L (96-109) mmol/L BUN 60.8 H (9.0-27.0) mg/dL Creatinine 2.5 H (0.6-1.5) mg/dL Est GFR (CKD-EPI) 29 L (>=60) BUN/Creatinine Ratio 24.32 H (12.00-20.00) Ratio Glucose 168 H (70-110) mg/dL POC Glucose (mg/dL) 225 H 278 H (70-110) mg/dL Calcium 8.4 L (8.7-10.3) mg/dL Alkaline Phosphatase 185 H (41-126) U/L Total Protein 6.0 L (6.2-8.2) g/dL Albumin 3.2 L (3.8-4.9) g/dL Albumin/Globulin Ratio 1.14 L (1.60-3.17) Ratio 05/29/24 05/29/24 05/29/24 Range/Units 03:55 05:55 11:31 Hgb 12.6 L (13.0-17.0) g/dL MCH 25.6 L (27.0-32.0) pg MCHC 31.7 L (32.0-37.0) g/dL RDW 15.2 H (11.5-14.5) % Lymphocytes # 0.58 L (0.90-5.00) X 10*3/uL Monocytes # 1.32 H (0.20-1.00) X 10*3/uL Eosinophils # 0.53 H (0.04-0.35) X 10*3/uL Sodium (135-145) mmol/L Chloride (96-109) mmol/L BUN (9.0-27.0) mg/dL Creatinine (0.6-1.5) mg/dL Est GFR (CKD-EPI) (>=60) BUN/Creatinine Ratio (12.00-20.00) Ratio Glucose (70-110) mg/dL POC Glucose (mg/dL) 147 H 301 H (70-110) mg/dL Calcium (8.7-10.3) mg/dL Alkaline Phosphatase (41-126) U/L Total Protein (6.2-8.2) g/dL Albumin (3.8-4.9) g/dL Albumin/Globulin Ratio (1.60-3.17) Ratio
[2024-05-30 01:47] VITALS: PULSE 61; RESP 16
[2024-05-30 05:57] LABS: Glucose,Whole Blood 166 mg/dL (70-110)
[2024-05-30 08:14] VITALS: BP 149/81; TEMP 98.2
[2024-05-30 08:43] LABS: Basophils # (A) 0.05 X 10*3/uL (0.00-0.10); Basophils % (A) 0.7 %; Eosinophils % (A) 9.2 %; HCT 39.4 % (39.6-50.0); HGB 12.4 g/dL (13.0-17.0); Lymphocytes # (A) 0.78 X 10*3/uL (0.90-5.00); Lymphocytes % (A) 10.3 %; MCH 25.4 pg (27.0-32.0); MCHC 31.5 g/dL (32.0-37.0); MCV 80.7 FL (80.0-97.0); Mean Platelet Volume 10.8 FL (9.5-12.2); Monocytes # (A) 1.21 X 10*3/uL (0.20-1.00); Monocytes % (A) 15.9 %; NRBC Per 100 WBC 0 X 10*3/uL (0.00-0.01); Neutrophils # (A) 4.84 X 10*3/uL (1.80-7.70); Neutrophils % (A) 63.6 %; Platelet Count 293 X 10*3/uL (140-440); RBC 4.88 X 10*6/uL (4.40-5.60); RDW 15.5 % (11.5-14.5)
[2024-05-30 08:49] LABS: ALT 29 U/L (10-49); AST 24 U/L (14-35); Albumin 3.4 g/dL (3.8-4.9); Albumin/Globulin Ratio 1.17 Ratio (1.60-3.17); Alkaline Phosphatase 192 U/L (41-126); BUN/Creat Ratio 25.76 Ratio (12.00-20.00); Blood Urea Nitrogen 64.4 mg/dL (9.0-27.0); Calcium 8.5 mg/dL (8.7-10.3); Carbon Dioxide 25.1 mmol/L (21.6-31.8); Chloride 96 mmol/L (96-109); Globulin 2.9 g/dL (1.6-3.3); Glucose 185 mg/dL (70-110); Magnesium 2.6 mg/dL (1.5-2.4); Potassium 4.7 mmol/L (3.5-5.5); Sodium 135 mmol/L (135-145); Total Bilirubin 0.5 mg/dL (0.3-1.2); Total Protein 6.3 g/dL (6.2-8.2)
[2024-05-30] MEDS ORDERED: POTASSIUM CHLORIDE ER 20 MEQ TAB.ER PO SCH (09:00)
--- NOTE | 2024-05-30 10:09 | P.PN ---
Subjective Patient is seen in follow-up for acute kidney injury and volume overload. Edema improved. Renal function stable. On oral Lasix. Also on Aldactone. Has Canales catheter for urinary retention. Denies chest pain or shortness of breath. Vital signs are stable. General: No acute distress. HEENT: Head exam is unremarkable. LUNGS: No audible rhonchi or wheezes. HEART: Rate and Rhythm are regular. ABDOMEN: Nontender. EXTREMITITES: No edema. Objective - Vital Signs Vital signs: Vital Signs Temp 98.2 F 05/30/24 07:23 Pulse 61 05/30/24 07:23 Resp 16 05/30/24 07:23 BP 149/81 05/30/24 07:23 Pulse Ox 91 L 05/30/24 07:23 FiO2 Intake & Output 05/29/24 05/30/24 05/30/24 18:59 06:59 18:59 Output Total 2900 1300 Balance -2900 -1300 Weight 75.5 kg Output: Urine 2900 1300 Other: Voiding Method Indwelling Catheter Indwelling Catheter # Bowel Movements 1 - Labs CBC & Chem 7: 05/30/24 03:14 05/30/24 03:14 Labs: Abnormal Lab Results - Last 24 Hours (Table) 05/29/24 05/29/24 05/29/24 Range/Units 11:31 16:37 20:16 Hgb (13.0-17.0) g/dL Hct (39.6-50.0) % MCH (27.0-32.0) pg MCHC (32.0-37.0) g/dL RDW (11.5-14.5) % Lymphocytes # (0.90-5.00) X 10*3/uL Monocytes # (0.20-1.00) X 10*3/uL Eosinophils # (0.04-0.35) X 10*3/uL Anion Gap (4.00-12.00) mmol/L BUN (9.0-27.0) mg/dL Creatinine (0.6-1.5) mg/dL Est GFR (CKD-EPI) (>=60) BUN/Creatinine Ratio (12.00-20.00) Ratio Glucose (70-110) mg/dL POC Glucose (mg/dL) 301 H 225 H 227 H (70-110) mg/dL Calcium (8.7-10.3) mg/dL Magnesium (1.5-2.4) mg/dL Alkaline Phosphatase (41-126) U/L Albumin (3.8-4.9) g/dL Albumin/Globulin Ratio (1.60-3.17) Ratio 05/30/24 05/30/24 05/30/24 Range/Units 03:14 03:14 05:56 Hgb 12.4 L (13.0-17.0) g/dL Hct 39.4 L (39.6-50.0) % MCH 25.4 L (27.0-32.0) pg MCHC 31.5 L (32.0-37.0) g/dL RDW 15.5 H (11.5-14.5) % Lymphocytes # 0.78 L (0.90-5.00) X 10*3/uL Monocytes # 1.21 H (0.20-1.00) X 10*3/uL Eosinophils # 0.70 H (0.04-0.35) X 10*3/uL Anion Gap 13.90 H (4.00-12.00) mmol/L BUN 64.4 H (9.0-27.0) mg/dL Creatinine 2.5 H (0.6-1.5) mg/dL Est GFR (CKD-EPI) 29 L (>=60) BUN/Creatinine Ratio 25.76 H (12.00-20.00) Ratio Glucose 185 H (70-110) mg/dL POC Glucose (mg/dL) 166 H (70-110) mg/dL Calcium 8.5 L (8.7-10.3) mg/dL Magnesium 2.6 H (1.5-2.4) mg/dL Alkaline Phosphatase 192 H (41-126) U/L Albumin 3.4 L (3.8-4.9) g/dL Albumin/Globulin Ratio 1.17 L (1.60-3.17) Ratio Assessment and Plan Plan: Assessment: 1. Acute kidney injury secondary to ATN secondary to cardiorenal syndrome and urinary retention. Creatinine stable at 2.5. 2. Volume overload. Improved with diuresis. 3. Coronary artery disease status post CABG. 4. Urinary retention status post Canales catheter placement. On Flomax. Urology following. Patient to be discharged with Canales catheter. 5. Acute on chronic systolic CHF with ejection fraction of 40 to 45%. 6. Hypokalemia from diuresis. Replaced. Better. Plan: Maintain oral Lasix. Also on Aldactone. Zaroxolyn discontinued. Maintain SGLT2 inhibitor. Avoid nephrotoxins. Continue to monitor renal function and urine output. Follow-up outpatient 1 week postdischarge.
[2024-05-30 11:36] LABS: Glucose,Whole Blood 231 mg/dL (70-110)
--- NOTE | 2024-05-30 11:45 | P.DS ---
Providers Date of admission: 05/21/24 22:52 Expected date of discharge: 05/30/24 Attending physician: Kelly Montesinos Consults: 05/21/24 22:49 Consult Physician Routine Consulting Provider: Cristhian Villagomez Consult Reason/Comments: CHF Do you want consulting provider notified?: Yes, Notify in am Consult Physician Routine Consulting Provider: Tal Bardales Consult Reason/Comments: CHF, renal dz Do you want consulting provider notified?: Yes, Notify in am 05/22/24 07:12 Consult Physician Routine Consulting Provider: Joann Yates Consult Reason/Comments: Right lower lobe pneumonia/Gram negative Do you want consulting provider notified?: Yes 05/28/24 09:45 Consult Physician Routine Consulting Provider: Jevon Abraham Consult Reason/Comments: urinary retention. Do you want consulting provider notified?: Yes Primary care physician: Kelly Montesinos Hospital Course: HISTORY OF PRESENT ILLNESS: This is a 59-year-old male patient of rosita and Dr. Ga with past medical history of coronary artery disease status post 6 vessel CABG 2006 with MAE to LAD, saphenous venous graft to the PDA, saphenous venous graft to the obtuse marginal one, radial artery to the obtuse marginal branch 2 and saphenous venous graft to the obtuse marginal 3 followed by heart catheterization with PCI and stent of the saphenous venous graft to the RCA in 2015 at which time he presented with non-ST elevated myocardial infarction. Most recent cardiac catheterization was performed on 04/10/2022 which revealed severe triple-vessel coronary artery disease with a patent ramus intermediate, patent SVG to the OM, patent MAE to the LAD, and occluded saphenous vein graft to the RCA which is chronic from before. Medical therapy was advised at that time. History of hypertension, hypertensive cardiovascular disease with left ventricular hypertrophy, hyperlipidemia, ischemic cardiomyopathy, paroxysmal atrial fibrillation, currently on Eliquis, diabetes mellitus type 2 with diabetic polyneuropathy, hyperlipidemia, asthma, obstructive sleep apnea on CPAP, chronic low back pain, DVT in the past, patient was recently hospitalized at [facility] between 05/05/2024 05/17/2024 after he was admitted for acute hypoxemic respiratory failure due to acute systolic heart failure as well as acute bronchitis was seen in consultation by pulmonary as well as by cardiology he ended up having significant acute kidney injury due to cardiorenal syndrome as well as vasomotor nephropathy, he started to recover from that, patient was supposed to come to see him in the office this week, instead he showed up in the emergency department with increased swelling both lower extremities and increased shortness of breath, as well as increased coughing, his chest x-ray showed evidence of cardiomegaly pulmonary vascular congestion as well as right lower lobe infiltrate could be an early gram-negative pneumonia, versus atelectasis, patient was started on IV diuretics, he was admitted to the [facility] for evaluation by cardiology, nephrology, as well as pulmonary medicine. Patient has significant scrotal edema, underwent ultrasound of the scrotum that showed evidence of bilateral hydrocele, with left varicocele no evidence of torsion 4/1: Patient sitting up in bed in no apparent distress, he denies any chest pain, he is less short of breath, he continues to have a significant swelling in the abdominal wall along with both lower extremities, with pitting edema, diuresing very well through the Canales catheter, has been on Lasix 40 mg IV push every 12 hours along with spironolactone, will follow-up with the patient very closely, monitor his kidney function, patient also has been started on Zosyn 3.375 g piggyback every 8 hours for possible gram-negative pneumonia as well pulmonary is following as well physical therapy evaluation, continue to follow- up with the patient very closely continue to follow-up with the labs including CBC CMP magnesium over the next 24 hours 4/2: Patient continues to have significant edema in the abdominal wall as well as upper thighs and bilateral lower extremities, he has Canales catheter in place, he has scrotal edema, he has foreskin edema as well, he is complain of significant pain in the scrotal area, he has been started on pain management as well as nystatin powder to alleviate some of the skin infection, he was switched yesterday again to frusemide 40 mg IV push every 12 hours because of significant weight gain, he was started on spironolactone 50 mg once every day, Farxiga 5 mg once every day, lipid better today but not a whole lot, will switch the patient to inpatient at this point in time due to acute systolic heart failure. 4/3: Patient is sitting up in bed he continues to have significant edema in the abdominal wall, both lower extremities a bit better than yesterday, continues to have significant scrotal edema, he has a Canales catheter in place with significant for screening edema, his skin is splitting in the scrotal area, he has been getting nystatin powder as well, continue current pain management, continue Lasix 40 mg IV push every 12 hours, continue Farxiga 5 mg orally once every day, spironolactone 50 mg once every day, follow-up with the patient very closely, nephrology along with cardiology and pulmonary medicine is following, he has been responding very well to the Zosyn 3.375 g piggyback every 8 hours, will continue with that as well monitor the patient kidney function test very closely, as he is getting a bit worse than yesterday 05/26: Patient is sitting up in bed is feeling a bit better today, he swelling is much better than yesterday, he continues to have +1-2 edema in both lower extremities, continue to have significant swelling in the scrotal area, better than yesterday as well, better weeping in both lower extremities in his groin area, has been on Zosyn along with Lasix 40 mg IV push every 12 hours, continue patient on Zaroxolyn 2.5 mg once every day, continue monitor input and output and daily weight, monitor the patient's electrolytes, monitor the BUN and creatinine as well, nephrology has been following, along with pulmonary medicine, will follow-up with the patient very closely. 5: Patient is sitting up in bed in no apparent distress, his swelling is much better today, his creatinine is up to 2.8, he was seen earlier by nephrology who recommended to switch the patient to oral Lasix 40 mg once every day, discontinue Zaroxolyn, continue with Farxiga 5 mg once every day, monitor the patient input and output and daily weight, increase activity level discontinue Zosyn at this time, start the patient on amoxicillin/clavulanate 500/125 mg orally twice every day for 1 more day. 6: Patient sitting up in bed in no apparent distress, he is feeling a bit better today, he did have 1.2 L of urine, had a Canales catheter placed and again he was seen by Dr. Alanis, recommendation to continue Canales catheter, patient will be kept in the hospital for another 24 hours, hopefully will be discharged home in the next 24 hours, follow-up with us as an outpatient. 05/29: Patient is lying down in bed no apparent distress, he is feeling weak today and he is asking if it will be possible to send him to ECF for PT/OT, his swelling is much better and scrotal edema is better, we will continue with current treatment plan and we will continue with Furosemide , Farxiga and increase activity and we will keep Canales catheter for 1 week then he will follow up with Urology, meanwhile continue with Flomax 0.4 mg po daily , await Prior Authorization for ECF referral 05/30: Insurance authorization has been obtained for subacute rehab and patient will be discharged tomorrow today once all arrangements are completed. No new concerns today. He continues to have generalized weakness and would benefit from subacute rehab. Scrotal edema is improved. Canales catheter to be maintained until follow-up with urology. Blood pressure 149/81, heart rate in the 60s, pulse ox 91% on room air. Repeat blood work reveals hemoglobin 12.4, BUN 64 and creatinine 2.5. Patient will be discharged today in stable condition. DISCHARGE DIAGNOSES: 1. Acute on chronic systolic heart failure. 2. Right lower lobe infiltrate likely gram-negative pneumonia. 3. Acute kidney injury due to cardiorenal syndrome. 4. Hypertension and hypertensive cardiovascular disease. 5. Diabetes mellitus type 2. 6. Coronary artery disease status post CABG 6 as well as PCI in the past. 7. Hyperlipidemia. 8. Diabetic polyneuropathy. 9. Obstructive sleep apnea. Patient does have a CPAP at home. 10. Chronic systolic heart failure. 11. Paroxysmal atrial fibrillation. 12. Enlarged prostate with urinary retention. Continue Canales catheter, continue Flomax 0.4 mg once every day, keep Canales in and follow up with in 1 week 13. History of CVA in the past recovered well. Greater than 35 minutes was utilized and coordinating patient's discharge. Impression and plan of care have been directed as dictated by the signing physician. Dipika Mendez nurse practitioner acting as scribe for signing physician. Patient Condition at Discharge: Stable Plan - Discharge Summary Discharge Rx Participant: Yes New Discharge Prescriptions: New Tamsulosin [Flomax] 0.4 mg PO PC-SUPPER cap INSULIN LISPRO (HumaLOG) [HumaLOG] 5 unit SQ TID-W/MEALS each Clotrimazole/Betameth Cream [Lotrisone] 1 applic TOPICAL BID each Acetaminophen Tab [Tylenol] 650 mg PO Q6HR PRN tab PRN Reason: Mild Pain Or Fever > 100.5 Spironolactone [Aldactone] 50 mg PO DAILY tab Dapagliflozin Propanediol [Farxiga] 5 mg PO DAILY tab INSULIN LISPRO (HumaLOG) [HumaLOG] 0 unit SQ ACHS each Nystatin 100,000 Unit/gm Powd [Mycostatin Powder] 1 applic TOPICAL TID each Continue Ezetimibe [Zetia] 10 mg PO DAILY Atorvastatin [Lipitor] 80 mg PO DAILY carvediloL [Coreg] 25 mg PO BID Apixaban [Eliquis] 5 mg PO BID hydrALAZINE HCL [Apresoline] 25 mg PO TID Furosemide [Lasix] 40 mg PO DAILY #30 tab Pantoprazole [Protonix] 40 mg PO AC-BRKFST #30 tab Gabapentin 300 mg PO HS #0 Insulin Glargine,Hum.rec.anlog [Basaglar Kwikpen U-100] 30 unit SQ HS Discontinued Potassium Chloride ER [K-Dur 20] 20 meq PO DAILY #30 tab Insulin Aspart [NovoLOG Flexpen] 9 - 12 units SQ TID-W/MEALS Discharge Medication List Ezetimibe [Zetia] 10 mg PO DAILY 12/15/20 [History] Atorvastatin [Lipitor] 80 mg PO DAILY 04/09/22 [History] carvediloL [Coreg] 25 mg PO BID 06/05/23 [History] Apixaban [Eliquis] 5 mg PO BID 05/05/24 [History] hydrALAZINE HCL [Apresoline] 25 mg PO TID 05/05/24 [History] Furosemide [Lasix] 40 mg PO DAILY #30 tab 05/17/24 [Rx] Gabapentin 300 mg PO HS #0 05/17/24 [Rx] Pantoprazole [Protonix] 40 mg PO AC-BRKFST #30 tab 05/17/24 [Rx] Insulin Glargine,Hum.rec.anlog [Basaglar Kwikpen U-100] 30 unit SQ HS 05/22/24 [History] Acetaminophen Tab [Tylenol] 650 mg PO Q6HR PRN tab 05/30/24 [Rx] Clotrimazole/Betameth Cream [Lotrisone] 1 applic TOPICAL BID each 05/30/24 [Rx] Dapagliflozin Propanediol [Farxiga] 5 mg PO DAILY tab 05/30/24 [Rx] INSULIN LISPRO (HumaLOG) [HumaLOG] 0 unit SQ ACHS each 05/30/24 [Rx] INSULIN LISPRO (HumaLOG) [HumaLOG] 5 unit SQ TID-W/MEALS each 05/30/24 [Rx] Nystatin 100,000 Unit/gm Powd [Mycostatin Powder] 1 applic TOPICAL TID each 05/30/24 [Rx] Spironolactone [Aldactone] 50 mg PO DAILY tab 05/30/24 [Rx] Tamsulosin [Flomax] 0.4 mg PO PC-SUPPER cap 05/30/24 [Rx] Follow up Appointment(s)/Referral(s): Jevon Abraham MD [STAFF PHYSICIAN] - 1 Week (cmg cysto with dr abraham) Kelly Montesinos MD [Primary Care Provider] - 1 Week (AT [facility]) Discharge Disposition: TRANSFER TO SNF/ECF
[2024-05-30] MEDS: HYDROcodone/APAP 5-325MG 1 EACH TAB PO PRN (11:59)
== END 2024-05-30 13:48 | DRG 177 ==
LOC: EC 19:40 → 4SSUR 22:51 → OBSVTOIN 22:52 → 1SOBS 05-22 01:37 → 4SSUR 05-26 16:48
PROVIDERS: ADMIT Internal Medicine; ATTEND Internal Medicine
DX: J15.69 Pneumonia due to other Gram-negative bacteria (principal); I50.23 Acute on chronic systolic (congestive) heart failure; I27.20 Pulmonary hypertension, unspecified; N17.9 Acute kidney failure, unspecified; I13.0 Hypertensive heart and chronic kidney disease with heart failure and stage 1 through stage 4 chronic kidney disease, or unspecified chronic kidney disease; E11.22 Type 2 diabetes mellitus with diabetic chronic kidney disease; N18.30 Chronic kidney disease, stage 3 unspecified; J45.20 Mild intermittent asthma, uncomplicated; I08.1 Rheumatic disorders of both mitral and tricuspid valves; I25.810 Atherosclerosis of coronary artery bypass graft(s) without angina pectoris; E11.42 Type 2 diabetes mellitus with diabetic polyneuropathy; I48.0 Paroxysmal atrial fibrillation; Z79.4 Long term (current) use of insulin; E78.5 Hyperlipidemia, unspecified; E87.6 Hypokalemia; G47.33 Obstructive sleep apnea (adult) (pediatric); I25.2 Old myocardial infarction; G89.29 Other chronic pain; I25.10 Atherosclerotic heart disease of native coronary artery without angina pectoris; M54.50 Low back pain, unspecified; I25.5 Ischemic cardiomyopathy; I86.1 Scrotal varices; N40.1 Benign prostatic hyperplasia with lower urinary tract symptoms; N43.3 Hydrocele, unspecified; N48.89 Other specified disorders of penis; R33.8 Other retention of urine; T50.2X5A Adverse effect of carbonic-anhydrase inhibitors, benzothiadiazides and other diuretics, initial encounter; Z79.01 Long term (current) use of anticoagulants; Z79.51 Long term (current) use of inhaled steroids; Z79.84 Long term (current) use of oral hypoglycemic drugs; Z79.899 Other long term (current) drug therapy; Z86.718 Personal history of other venous thrombosis and embolism; Z86.73 Personal history of transient ischemic attack (TIA), and cerebral infarction without residual deficits; Z95.5 Presence of coronary angioplasty implant and graft; Z98.1 Arthrodesis status
CPT/HCPCS: 36415; 51798; 71045; 71046; 76705; 76870; 80048; 80053; 81001; 83036; 83735; 83880; 84145; 84443; 85025; 85610; 85730; 87040; 93005; 93975; 96374; 96375; 96376; 99285